=== PATIENT | female | born 1950 | race Caucasian/White ===

== ENCOUNTER 2019-08-05 12:09 | Emergency (ER) | payer OTHER ==
[~2019-08-05] VITALS: Ht 157.5 cm; Wt 81.4 kg
[2019-08-05] MEDS ORDERED: AZIT-12 PO (13:05)
[2019-08-05] MEDS ORDERED: ATOR40TA75 PO (13:05)
[2019-08-05] MEDS ORDERED: HYDR-3713 PO (13:05)
[2019-08-05] MEDS ORDERED: PRED20TA PO (13:05)
[2019-08-05] MEDS ORDERED: SULF1TAB93 PO (13:05)
[2019-08-05] MEDS ORDERED: LISI-1046 PO (13:05)
[2019-08-05] MEDS ORDERED: PULM0.25 NEB (13:05)
[2019-08-05] MEDS ORDERED: BUPR15TASR PO (13:05)
[2019-08-05] MEDS ORDERED: MIRA3350 PO (13:05)
[2019-08-05] MEDS ORDERED: GABA-843 PO (13:05)
[2019-08-05] MEDS ORDERED: PROP60CA PO (13:05)
[2019-08-05] MEDS ORDERED: METF500T13 PO (13:05)
[2019-08-05] MEDS ORDERED: PROAAER10 INH (13:05)
[2019-08-05] MEDS ORDERED: LASI20TA3 PO (13:05)
[2019-08-05] MEDS ORDERED: TIZA2TAB4 PO (13:05)
[2019-08-05] MEDS ORDERED: LOTRCRE TOP (13:05)
[2019-08-05] MEDS ORDERED: FAMO20TA PO (13:05)
[2019-08-05] MEDS ORDERED: CYMB60CA3 PO (13:05)
[2019-08-05] MEDS ORDERED: NORC1TAB7 PO (13:57)
[2019-08-05] MEDS ORDERED: MOBI4TAB PO (13:57)
[2019-08-05] MEDS ORDERED: KETOROLAC 60 MG/2 ML VIAL (J1885) IM ONE (14:00)
[2019-08-05 14:14] VITALS: BP 121/76
== END 2019-08-05 14:17 | disposition home or self-care (01) ==
LOC: M ED 12:09
DX: J84.9 Interstitial pulmonary disease, unspecified (principal); M25.551 Pain in right hip; M79.604 Pain in right leg; G89.29 Other chronic pain; Z87.891 Personal history of nicotine dependence; I10 Essential (primary) hypertension; E78.00 Pure hypercholesterolemia, unspecified; I25.2 Old myocardial infarction; G47.30 Sleep apnea, unspecified; Z99.81 Dependence on supplemental oxygen; M19.90 Unspecified osteoarthritis, unspecified site; E11.9 Type 2 diabetes mellitus without complications; M54.31 Sciatica, right side; Z79.899 Other long term (current) drug therapy; Z79.2 Long term (current) use of antibiotics; Z79.52 Long term (current) use of systemic steroids; Z79.51 Long term (current) use of inhaled steroids; Z79.84 Long term (current) use of oral hypoglycemic drugs
CPT/HCPCS: 96372; 99283; J1885

== ENCOUNTER → 2019-08-22 | Outpatient (REF) | payer OTHER ==
[~2019-08-22] MED LIST: ATOR40TA75 PO; AZIT-12 PO; BUPR15TASR PO; CYMB60CA3 PO; FAMO20TA PO; GABA-843 PO; HYDR-3713 PO; LASI20TA3 PO; LISI-1046 PO; LOTRCRE TOP; METF500T13 PO; MIRA3350 PO; MOBI4TAB PO; NORC1TAB7 PO; PRED20TA PO; PROAAER10 INH; PROP60CA PO; PULM0.25 NEB; SULF1TAB93 PO; TIZA2TAB4 PO
[2019-08-22 14:24] LABS: ALBUMIN 3.5 GM/DL (3.2-5.2); BILIRUBIN,TOTAL 0.4 MG/DL (0.2-1.0); CALCIUM LEVEL 9.3 MG/DL (8.8-10.2); CREATININE FOR GFR 1.15 MG/DL (0.55-1.30); GLOMERULAR FILTRATION RATE 49.8 (>45); POTASSIUM SERUM 4.2 MEQ/L (3.5-5.1); TOTAL PROTEIN 6.7 GM/DL (6.4-8.2)
[2019-08-22 14:25] LABS: MALB URINE SIEMENS 11.5 MG/L; MAU/CREAT RATIO 10.5 MCG/MG (0.0-30.0)
== END ==
LOC: M SFHCPLAZ 11:11
PROVIDERS: ATTEND Nurse Practitioner Family
DX: I10 Essential (primary) hypertension (principal); Z79.899 Other long term (current) drug therapy

== ENCOUNTER 2019-09-16 13:55 | Emergency (ER) | payer OTHER ==
[~2019-09-16] VITALS: Ht 157.5 cm; Wt 80.9 kg
[2019-09-16 16:35] LABS: HEMOGLOBIN 13.5 g/dl (12.0-15.5); MEAN CORPUSCULAR HEMOGLOBIN 29.3 pg (27.0-33.0); MEAN CORPUSCULAR HGB CONC 32.1 g/dl (32.0-36.5); MEAN CORPUSCULAR VOLUME 91.1 fl (80.0-96.0); PLATELET COUNT, AUTOMATED 254 10^3/uL (150-450); RED BLOOD COUNT 4.61 10^6/uL (4.00-5.40)
[2019-09-16 16:55] LABS: ALT/SGPT 22 U/L (12-78); BILIRUBIN,DIRECT < 0.1 MG/DL (0.0-0.2); BILIRUBIN,TOTAL 0.4 MG/DL (0.2-1.0); BLOOD UREA NITROGEN 14 MG/DL (7-18); CALCIUM LEVEL 8.9 MG/DL (8.8-10.2); CARBON DIOXIDE LEVEL 26 MEQ/L (21-32); CHLORIDE LEVEL 109 MEQ/L (98-107); CK-MB VALUE MASS < 1.0 NG/ML (<3.6); CPK CREATINE PHOSPHOKINASE 33 U/L (26-192); CREATININE FOR GFR 1.17 MG/DL (0.55-1.30); GLOMERULAR FILTRATION RATE 48.8 (>45); GLUCOSE, FASTING 119 MG/DL (70-100); LIPASE 116 U/L (73-393); MB/CK RELATIVE INDEX 3.03 (< OR =4); POTASSIUM SERUM 3.8 MEQ/L (3.5-5.1); SODIUM LEVEL 143 MEQ/L (136-145); TOTAL PROTEIN 6.1 GM/DL (6.4-8.2); TROPONIN I < 0.02 NG/ML (< 0.10)
--- NOTE | 2019-09-16 17:25 | REP ---
Portable chest x-ray: Sitting AP view. History: COPD. Findings: The lungs are symmetrically aerated and clear. Pleural angles are sharp. Heart is not enlarged. Monitoring electrodes are seen. Pulmonary vasculature is not increased. Impression: No acute disease. Electronically Signed by Uli Pro MD 09/16/2019 05:17 P
[2019-09-16] MEDS ORDERED: BACT800T5 PO (17:28)
[2019-09-16] MEDS ORDERED: AZIT-12 PO (17:28)
[2019-09-16] MEDS ORDERED: NORCO 5/325MG TABLET (BULK FOR ED) PO ONE (17:30)
[2019-09-16] MEDS ORDERED: BACTRIM 160MG/800MG DS TAB PO ONE (18:15)
[2019-09-16 18:18] VITALS: BP 112/74
--- NOTE | 2019-09-17 17:51 | ECGEPIP ---
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
== END 2019-09-16 18:21 | disposition home or self-care (01) ==
LOC: M ED 13:55
DX: J84.89 Other specified interstitial pulmonary diseases (principal); M54.5 Low back pain; R00.1 Bradycardia, unspecified; I11.9 Hypertensive heart disease without heart failure; E11.9 Type 2 diabetes mellitus without complications; E78.5 Hyperlipidemia, unspecified; G47.33 Obstructive sleep apnea (adult) (pediatric); J44.9 Chronic obstructive pulmonary disease, unspecified; M79.10 Myalgia, unspecified site; Z95.5 Presence of coronary angioplasty implant and graft; Z87.891 Personal history of nicotine dependence; Z79.899 Other long term (current) drug therapy; Z79.52 Long term (current) use of systemic steroids; Z79.51 Long term (current) use of inhaled steroids; Z79.84 Long term (current) use of oral hypoglycemic drugs

== ENCOUNTER → 2019-10-19 | Outpatient (CLI) | payer OTHER ==
[~2019-10-19] MED LIST changes: +BACT800T5 PO
--- NOTE | 2019-11-02 02:20 | ECWPNPC ---
PATIENT NAME: CASEY KU : 1950 GENDER: FEMALE VISIT DATE: 10/19/2019 DISCHARGE DATE: 10/19/19 1255 VISIT LOCKED DATE TIME: PHYSICIAN: MYLES GALLARDO MD RESOURCE: MYLES GALLARDO MD REASON FOR APPOINTMENT 1. BACK PAIN-CHECKING IN HISTORY OF PRESENT ILLNESS PAIN SCREENING: PATIENT HAS A COMPLAINT OF ACUTE OR CHRONIC PAIN :YES 69 YEAR OLD FEMALE PATIENT WITH A HISTORY OF CHRONIC LOW BACK AND LEG PAIN. THE PATIENT DESCRIBES THE PAIN ACHING, SHARP, AND CONTINUOUS WITH A PAIN SCORE OF 7-9/10 DEPENDING ON PHYSICAL ACTIVITY. THE PATIENT STATES HER PAIN BEGINS IN HER LOW BACK AND RADIATES DOWN MAINLY THE SIDE OF HER RIGHT LEG. THE PATIENT SAYS SHE HAS BEEN SUFFERING FROM THIS PAIN FOR THE LAST FEW YEARS. THE PATIENT SAYS SHE IS USING GABAPENTIN 300 MG UP TO 3 TIMES DAILY AND HYDROCODONE-ACETAMINOPHEN 5-325 MG NEEDED FOR HER PAIN, WHICH WAS PRESCRIBED BY HER PRIMARY CARE PHYSICIAN, DR. SUAREZ. THE PATIENT MENTIONS SHE HAS A HISTORY OF INTERSTITIAL LUNG DISEASE, AND SHE IS IN THE PROCESS OF OBTAINING A PRESCRIPTION FOR CONDITION FROM DR. SUAREZ. THE PATIENT MENTIONS SHE ALSO HAS A HISTORY OF CORONARY ARTERY DISEASE AND HAD A STENT PLACED, BUT IS NOT USING ANY BLOOD THINNERS. PATIENT DENIES UNEXPLAINABLE WEIGHT LOSS, FEVER, CHILLS, NEW CHANGES ON HER URINARY OR BOWEL CONTROL. FALL RISK SCREENING: SCREENING :NO FALLS REPORTED IN THE LAST YEAR CURRENT MEDICATIONS TAKING MELOXICAM 7.5 MG TABLET 1 TABLET ORAL DAILY TAKING ASPIRIN 81 81 MG TABLET DELAYED RELEASE 1 TABLET ORALLY ONCE A DAY TAKING METFORMIN HCL 500 MG TABLET 1 TABLET WITH A MEAL ORALLY TWICE A DAY TAKING GABAPENTIN 300 MG CAPSULE 3 CAPSULE S ORALLY THREE TIMES A DAY TAKING BACTRIM DS 800-160 MG TABLET 1 TABLET ORALLY ONCE DAILY TAKING AZITHROMYCIN 250 MG TABLET 1 TAB ORALLY ONCE A DAY TAKING TIZANIDINE HCL 4 MG TABLET 0.5-1 TABLET NEEDED ORALLY 3 TIMES A DAY NEEDED FOR MUSCLE SPASMS TAKING PROPRANOLOL HCL ER 60 MG CAPSULE EXTENDED RELEASE 24 HOUR 1 CAPSULE ORALLY ONCE A DAY TAKING ATORVASTATIN CALCIUM 40 MG TABLET 1 TABLET ORALLY DAILY TAKING FUROSEMIDE 20 MG TABLET 1 TABLET ORALLY NEEDED FOR EDEMA TAKING BUPROPION HCL ER (SR) 150 MG TABLET EXTENDED RELEASE 12 HOUR 1 TABLET ORALLY TWICE A DAY TAKING HYDROCODONE-ACETAMINOPHEN 5-325 MG TABLET TAKE 1 TABLET ORALLY THREE TIMES DAILY NEEDED MDD #3 TAKING PREDNISONE 10 MG TABLET 2 TABLETS ORALLY DAILY WITH FOOD MEDICATION LIST REVIEWED AND RECONCILED WITH THE PATIENT PAST MEDICAL HISTORY HTN, GOAL < 130/80 PER ACC/AHA HYPERLIPIDEMIA TYPE 2 DM, GOAL HBA1C < 6.5 INTERSTITIAL LUNG DISEASE - IS AWAITING APPT WITH DR RIVAS CHRONIC LOW BACK PAIN - PAIN MANAGEMENT CAD WITH PA 2013, STENT - CARDIOLOGY DEPRESSION HX OF MIGRAINES - NEUROLOGY [place] - ON CPAP ALLERGIES LATEX GLOVES: RASH/ITCHING SURGICAL HISTORY APPENDECTOMY 1967 C SECTION X2 1980. 1986 BILATERAL FOOT SURGERY 1988 PARTIAL HYSTERECTOMY 1988 RIGHT ROTATOR CUFF TEAR REPAIR 2014 HEART STENT 2014 LUNG BIOPSY 2018 LASIK SURGERY BILATERAL EYES 2017 FAMILY HISTORY FATHER: 2 SON(S) , 2 DAUGHTER(S) . FATHER- NATURAL CAUSE MOTHER- ALZHEIMERSSON- HANDICAPPEDBROTHER- [place]. SOCIAL HISTORY GENERAL: TOBACCO USE ARE YOU A:FORMER SMOKER HOW LONG HAS IT BEEN SINCE YOU LAST SMOKED?5-10 YEARS HIV / HEP-C SCREENING HIV TEST OFFERED TO PATIENT:YES DATE OFFERED:08/22/2019 TEST ACCEPTED:NO HEP-C TEST OFFERED TO PATIENT:YES DATE OFFERED:08/22/2019 REASON:PATIENT DECLINED TEST ACCEPTED:NO REASON:PATIENT DECLINED BROCHURE PROVIDED TO PATIENTYES OTHERS AT HOME: DAUGHTERS AMD GOD- CHILDREN. HOUSING: OWNS HOME. EDUCATION LEVEL OF EDUCATION:COLLEGE DIET: REGULAR. LANGUAGE LANGUAGES SPOKEN:ESTONIAN DOMESTIC VIOLENCE DO YOU FEEL SAFE IN YOUR ENVIRONMENT?YES RECREATIONAL DRUG USE DRUG USE?NO PATIENT DENIES ABUSE OR MISSUSED OF ANY MEDICATION DENIES PATIENT DENIES USE OF ANY ILLEGAL SUBSTANCE INCLUDING MARIJUANA OR COCAINE DENIES EXERCISE: NO REGULAR EXERCISE. LEARNING BARRIERS / SPECIAL NEEDS CHANGE FROM LAST VISIT?NO BARRIERS TO LEARNING?NO HEARING IMPAIRED?NO VISION IMPAIRED?YES COGNITIVELY IMPAIRED?NO :CORRECTIVE LENSES READINESS TO LEARN?YES LEARNING PREFERENCES?NO LEARNING CAPABILITIES PRESENT?YES EMOTIONAL BARRIERS?NO SPECIAL DEVICES?YES :CANE ENVELOPE ADJUSTER NEEDED?NO PAIN CLINIC PFS, CLERGY, PUBLIC HEALTH REFERRALS PFS REFERRAL NEEDED?NO CLERGY REFERRAL NEEDED?NO PUBLIC HEALTH REFERRAL NEEDED?NO WAS THE PROVIDER NOTIFIED OF ANY PERTINENT INFO?YES HAS THE PATIENT BEEN EDUCATED REGARDING HIS/HER PLAN OF CARE?YES HAS THE PATIENT BEEN EDUCATED REGARDING PAIN, THE RISK FOR PAIN, THE IMPORTANCE OF EFFECTIVE PAIN MANAGEMENT, AND THE PAIN ASSESSMENT PROCESS?YES LATEX QUESTIONNAIRE LATEX ALLERGY : HAVE YOU EVER DEVELOPED ANY TYPE OF REACTION AFTER HANDLING LATEX PRODUCTS SUCH RUBBER GLOVES, CONDOMS, DIAPHRAGMS, BALLOONS, SOCKS, OR UNDERWEAR?YES POWDER CAUSES RASH - PLEASE INDICATE :RUBBER GLOVES LATEX ALLERGY : HAVE YOU EVER DEVELOPED ANY TYPE OF REACTION DURING OR AFTER DENTAL APPOINTMENT, VAGINAL/RECTAL EXAMINATION, SURGICAL PROCEDURE, OR ANY OTHER EXPOSURE?NO LATEX RISK : HAVE YOU EVER HAD ANY DIFFICULTY BREATHING OR HIVES AFTER EATING OR HANDLING ANY FRUITS, OR VEGETABLES; SUCH KIWI, BANANAS, STONE FRUITS, OR CHESTNUTSNO LATEX RISK : DO YOU HAVE A PREVIOUS PERSONAL HISTORY OF MORE THAN NINE SURGERIES, SPINA BIFIDA, OR REPEATED CATHERIZATIONS? NO LATEX RISK : ARE YOU FREQUENTLY EXPOSED TO LATEX PRODUCTS IN YOUR OCCUPATION?NO DATE ASKED : 10/11/2019 CAFFEINE CAFFEINE USE?YES ICED TEA, COFFEE ADVANCE DIRECTIVE ADVANCE DIRECTIVE DISCUSSED WITH PATIENT:YES HCP- DAUGHTER- RUTH KU- PRESYBETERIAN [id number] LATTER DAY MARITAL STATUS: . ALCOHOL SCREENING DID YOU HAVE A DRINK CONTAINING ALCOHOL IN THE PAST YEAR?NO POINTS0 INTERPRETATIONNEGATIVE OCCUPATION: RETIRED. SEXUAL HX HAD SEX IN THE LAST 12 MONTHS (VAGINAL, ORAL, OR ANAL)?NO LMP:1988 PARTIAL HYSTERECTOMY HAVE YOU EVER HAD AN STD?NO REVIEWED WITH DAUGHTER (HCP) PAU 10/11/[address] [facility] PRE ATT TELEPHONE CALL COMPLETED 10/11/19 1351 NLJ. HOSPITALIZATION/MAJOR DIAGNOSTIC PROCEDURE PNEUMONIA, HYPOXIA 12/2018,12/2018, 01/2019 SURGERIS REVIEW OF SYSTEMS REVIEWED BY: PROVIDER: MYLES GALLARDO MD . CONSTITUTIONAL: ANY CHANGE IN YOUR MEDICAL CONDITION? NO . CHILLS NO . FEVER NO . INFECTION: DO YOU HAVE NEW INFECTIONS? NO . DO YOU HAVE HISTORY OF MRSA? NO . MUSCULOSKELETAL: ANY NEW PATTERNS OF PAIN OR NUMBNESS? NO . SYTEMIC LUPUS NO . GASTROENTEROLOGY: ANY NEW CHANGE IN BOWEL CONTROL? NO . BARRETTS ESOPHAGUS NO . CIRRHOSIS NO . HEPATITIS NO . LIVER FAILURE NO . ACID REFLUX NO . UNEXPLAINED WEIGHT LOSS NO . GENITOURINARY: ANY NEW CHANGE IN BLADDER CONTROL? NO . IS THERE A CHANCE YOU COULD BE ? NO . HEMATOLOGY/LYMPH: DO YOU TAKE ANY BLOOD THINNERS? (FOR EXAMPLE- COUMADIN, PLAVIX, AGGRENOX, PLATEL, PRADAXA, OR XARELTO) NO . WHEN WAS YOUR LAST DOSE? DATE: TIME: . LOW PLATELET COUNT NO . SICKLE CELL DISEASE NO . VON WILLIEBRANDS NO . FACTOR V LEIDEN NO . THALLASEMIA NO . ANEMIA NO . EASY BRUISING NO . NEUROLOGY: HAVE YOU FALLEN IN THE PAST 12 MONTHS? YES, FELL FALL 2019 NOT SURE WHY, MAYBE LOSS OF BALANCE AND PAIN PT DENIES INJURIES . ANY NEW EXTREMITY NUMBNESS OR WEAKNESS? NO . HEAD INJURY NO . DEMENTIA NO . CEREBRAL PALSY NO . MULTIPLE SCLEROSIS NO . DIZZINESS NO . HEADACHE NO . STROKES NO . VERTIGO NO . CARDIOLOGY: DO YOU HAVE A PACEMAKER OR DEFIBRILLATOR? NO . ANGINA NO . HEART ATTACK NO . HEART SURGERY NO . CONGESTIVE HEART FAILURE/FLUID OVERLOAD NO . CHEST PAIN NO . HIGH BLOOD PRESSURE ON MEDICATION(S) . IRREGULAR HEART BEAT NO . RESPIRATORY: HAVE YOU BEEN SICK IN THE PAST WEEK? NO . FEVER NO . FLU LIKE SYMPTOMS? NO . CPAP YES . BYPAP NO . ASTHMA NO . EMPHYSEMA NO . CHRONIC LUNG DISEASES YES, PT WEARS OXYGEN 24/7 . SHORTNESS OF BREATH ON EXERTION NO . COUGH NO . SNORING NO . INTEGUMENTARY: DO YOU HAVE ANY RASHES OR OPEN SORES? NO . ALLERGIC/IMMUNO: ARE YOU ALLERGIC TO IV DYE? NO . ANY NEW ALLERGIES? NO . PSYCHIATRIC: DO YOU HAVE THOUGHTS OF HURTING YOURSELF OR SOMEONE ELSE? NO . ARE YOU ABUSED, NEGLECTED, OR IN AN UNSAFE ENVIRONMENT? NO . ENDOCRINOLOGY: ARE YOU DIABETIC? YES . THYROID DISORDER NO . OTHER: DO YOU NEED ANY PRESCRIPTIONS? NO . IF YES, PLEASE LIST: ____ . ANY NEW PROBLEMS WITH YOUR MEDICATIONS? NO . WHEN DID YOU LAST EAT? ____ . WHEN DID YOU LAST DRINK? ____ . WHAT DID YOU LAST DRINK? ____ . NAME OF PERSON DRIVING YOU HOME? ____ . DO YOU HAVE ANY OTHER QUESTIONS OR CONCERNS NO . VITAL SIGNS WT 186 LBS, HT 62 IN, BMI 34.02 INDEX, BP 131/63 MM HG, HR 97 /MIN, RR 18 /MIN, TEMP 96.5 F, OXYGEN SAT % 94%, NA INITIALS AW 1135, REVIEWED BY: EM. EXAMINATION GENERAL EXAMINATION: PATIENT IS ALERT O X 3 AND COOPERATIVE. LUNGS CLEAR, TO AUSCULTATION. HEART: NO MURMURS OR GALLOPS; FACIAL CRANIAL NERVES ARE GROSSLY NORMAL. GOOD SYMMETRY OF FACIAL MUSCLE MOVEMENT. NORMAL VISUAL TAM. SEVERE TENDERNESS OVER THE PARASPINAL MUSCLE GROUP OF THE LOW BACK. PRESENCE OF BANDS OF TISSUE AND TRIGGER POINTS WITH RESTRICTION OF MOVEMENT OF THE LOW BACK AREA. ANTALGIC WALK. PATIENT IS LIMPING FROM HER RIGHT LEG. RIGHT LEG IS WEAKER AT EXTENSION AND FLEXION. STRAIGHT LEG RAISE OF THE RIGHT LEG IS POSITIVE AT 45 DEGREES FOR RADICULOPATHY. 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 KU'S PAIN MANAGEMENT CASE. I DISCUSSED WITH THE PATIENT ABOUT THE OPTION OF TRYING A LUMBAR EPIDURAL STEROID INJECTION TO HELP WITH HER LOW BACK AND LEG PAIN, BUT THE PATIENT IS INTERESTED IN TRYING THE LEAST INVASIVE PROCEDURE FIRST. THEREFORE, DUE TO THE TRIGGER POINTS, BANDS OF TISSUE, AND RESTRICTION OF MOVEMENT, I WOULD LIKE TO MOVE FORWARD WITH A LOW BACK TRIGGER POINT INJECTION AT THIS TIME. WE DISCUSSED THE BENEFITS, RISKS, AND ALTERNATIVES OF THE INJECTION AND THE PATIENT WOULD LIKE TO PROCEED. I AM LOOKING FOR LONG LASTING PAIN RELIEF FROM THIS INJECTION FOR THE PATIENT. I WILL REQUEST A DOCTOR TO DOCTOR AGREEMENT FROM THE PATIENT'S PRIMARY CARE PHYSICIAN, DR. SUAREZ, TO POSSIBLY PRESCRIBE NARCOTICS FOR THE PATIENT IN THE FUTURE. THE PATIENT'S MRI AND OFFICE NOTES WILL BE REQUESTED FROM DR. URIEL MARTINEZ'S OFFICE, SO I CAN REVIEW EVERYTHING. THE PATIENT WILL FOLLOW UP WITH THE NURSE PRACTITIONER IN 3 WEEKS. INSTRUCTIONS WERE GIVEN, QUESTIONS WERE ANSWERED, PATIENT REPORTS UNDERSTANDING AND AGREES WITH THE PLAN. I, KARLA CORTES, DOCUMENTED THE ABOVE INFORMATION ACTING A SCRIBE FOR DR. GALLARDO. I HAVE REVIEWED THE ABOVE DOCUMENT, WRITTEN BY KARLA REICH AND I VERIFY THAT IT IS ACCURATE. DEAR PIERRE PEREZ NP: THANK YOU FOR YOUR KIND REFERRAL OF CASEY KU. IF YOU WANT TO DISCUSS HER CASE WITH ME PLEASE CALL ME AT THE PAIN CENTER AT [phone]. SINCERELY, MYLES GALLARDO MD PAIN MEDICINE . OTHERS NOTES: TRIGGER POINT INJECTION, TRIGGER POINT INJECTIONS MATERIAL WAS PUBLISHED TO PORTAL,TRIGGER POINT INJECTION MATERIAL WAS PRINTED. PROCEDURE CODES FA211 ESTABILISHED PATIENT [facility] FACILITY CHARGE M1266 CURRENT MEDS W/DOSAGES DOCUMENTED G0899 PAIN ASSESS POS TOOL F/U PLAN DOC DISPOSITION & COMMUNICATION FOLLOW UP 3 WEEKS (REASON: TPI, F/UP W/ FOREST MANAGEMENT PROFESSOR) ELECTRONICALLY SIGNED BY MYLES GALLARDO MD, MD ON 11/01/2019 AT 02:02 PM EST DISCLAIMER : THIS IS A VISIT SUMMARY EXTRACTED FROM THE ECLINICALXiimo CHART. IT IS NOT A COPY OF THE [employer]KS PROGRESS NOTE. MTDD
== END ==
LOC: M PAIN 11:00
PROVIDERS: ATTEND Anesthesiology
DX: M79.18 Myalgia, other site (principal); M51.16 Intervertebral disc disorders with radiculopathy, lumbar region; M54.40 Lumbago with sciatica, unspecified side; G89.29 Other chronic pain

== ENCOUNTER → 2019-11-01 | Outpatient (CLI) | payer OTHER ==
--- NOTE | 2019-11-01 14:16 | REP ---
Clinical: Lower extremity edema . Technique: Aguilar scale and color Doppler evaluation using linear high frequency transducer. Findings: Ultrasound examination of the right and left lower extremity deep venous structures from the common femoral vein to the popliteal vein demonstrates normal compressibility flow and wave patterns in response to respiration and augmentation. There is no evidence for deep venous thrombosis. Impression: No evidence for deep venous thrombosis. Electronically Signed by Jaren Rizzo MD 11/01/2019 02:07 P
== END ==
LOC: M RAD 12:34
PROVIDERS: ATTEND Internal Medicine Pulmonary Disease
DX: Z86.711 Personal history of pulmonary embolism (principal); R30.0 Dysuria

== ENCOUNTER → 2019-11-13 | Outpatient (CLI) | payer OTHER ==
--- NOTE | 2019-11-21 03:16 | ECWPNPC ---
PATIENT NAME: CASEY KU : 1950 GENDER: FEMALE VISIT DATE: 11/13/2019 DISCHARGE DATE: 11/13/19 1020 VISIT LOCKED DATE TIME: PHYSICIAN: JUSTICE SCHOFIELD RESOURCE: JUSTICE SCHOFIELD REASON FOR APPOINTMENT 1. [address] Andrew HISTORY OF PRESENT ILLNESS HISTORY OF PRESENT ILLNESS: PAIN THE PATIENT DESCRIBES THE PAIN... FALL RISK SCREENING: SCREENING :NO FALLS REPORTED IN THE LAST YEAR PAIN SCREENING: PATIENT HAS A COMPLAINT OF ACUTE OR CHRONIC PAIN :YES 69 YEAR OLD FEMALE PATIENT WITH A HISTORY OF CHRONIC LOW BACK AND LEG PAIN. THE PATIENT DESCRIBES THE PAIN ACHING, SHARP, AND CONTINUOUS WITH A PAIN SCORE OF 7-9/10 DEPENDING ON PHYSICAL ACTIVITY. THE PATIENT STATES HER PAIN BEGINS IN HER LOW BACK AND RADIATES DOWN MAINLY THE SIDE OF HER RIGHT LEG. WAS FOLLOWING WITH PAIN CLINIC IN [place] PRIOR TO MOVING HERE A FEW MONTHS AGO.HAD A LESI IN THERE AND THIS WAS VERY HELPFUL.DENIES ANY PROBLEMS WITH INJECTION THERAPY.REVIEWED MRI L/S SPINE AND DISCUSSED TREATMENT OPTIONS. CURRENT MEDICATIONS TAKING MELOXICAM 7.5 MG TABLET 1 TABLET ORAL DAILY TAKING ASPIRIN 81 81 MG TABLET DELAYED RELEASE 1 TABLET ORALLY ONCE A DAY TAKING METFORMIN HCL 500 MG TABLET 1 TABLET WITH A MEAL ORALLY TWICE A DAY TAKING BACTRIM DS 800-160 MG TABLET 1 TABLET ORALLY ONCE DAILY TAKING AZITHROMYCIN 250 MG TABLET 1 TAB ORALLY ONCE A DAY TAKING TIZANIDINE HCL 4 MG TABLET 0.5-1 TABLET NEEDED ORALLY 3 TIMES A DAY NEEDED FOR MUSCLE SPASMS TAKING PROPRANOLOL HCL ER 60 MG CAPSULE EXTENDED RELEASE 24 HOUR 1 CAPSULE ORALLY ONCE A DAY TAKING ATORVASTATIN CALCIUM 40 MG TABLET 1 TABLET ORALLY DAILY TAKING FUROSEMIDE 20 MG TABLET 1 TABLET ORALLY DAILY TAKING BUPROPION HCL ER (SR) 150 MG TABLET EXTENDED RELEASE 12 HOUR 1 TABLET ORALLY TWICE A DAY TAKING PREDNISONE 10 MG TABLET 1 CAP ORALLY DAILY WITH FOOD TAKING ALBUTEROL SULFATE HFA 108 (90 BASE) MCG/ACT AEROSOL SOLUTION 2 PUFFS NEEDED INHALATION EVERY 6 HRS PRN TAKING HYDROCODONE-ACETAMINOPHEN 5-325 MG TABLET TAKE 1 TABLET ORALLY THREE TIMES DAILY NEEDED MDD #3 TAKING GABAPENTIN 300 MG CAPSULE 3 CAPSULE S ORALLY THREE TIMES A DAY MEDICATION LIST REVIEWED AND RECONCILED WITH THE PATIENT PAST MEDICAL HISTORY HTN, GOAL < 130/80 PER ACC/AHA HYPERLIPIDEMIA TYPE 2 DM, GOAL HBA1C < 6.5 INTERSTITIAL LUNG DISEASE - IS AWAITING APPT WITH DR RIVAS CHRONIC LOW BACK PAIN - PAIN MANAGEMENT CAD WITH [place] 2014, STENT - CARDIOLOGY DEPRESSION HX OF MIGRAINES - NEUROLOGY [place] - ON CPAP ALLERGIES LATEX GLOVES: RASH/ITCHING SURGICAL HISTORY APPENDECTOMY 1967 C SECTION X2 1980. 1986 BILATERAL FOOT SURGERY 1988 PARTIAL HYSTERECTOMY 1988 RIGHT ROTATOR CUFF TEAR REPAIR 2014 HEART STENT 2014 LUNG BIOPSY 2018 LASIK SURGERY BILATERAL EYES 2017 FAMILY HISTORY FATHER: 2 SON(S) , 2 DAUGHTER(S) . FATHER- NATURAL CAUSE MOTHER- ALZHEIMERSSON- HANDICAPPEDBROTHER- [place]. SOCIAL HISTORY GENERAL: TOBACCO USE ARE YOU A:FORMER SMOKER HOW LONG HAS IT BEEN SINCE YOU LAST SMOKED?5-10 YEARS HIV / HEP-C SCREENING HIV TEST OFFERED TO PATIENT:YES DATE OFFERED:08/22/2019 TEST ACCEPTED:NO HEP-C TEST OFFERED TO PATIENT:YES DATE OFFERED:08/22/2019 REASON:PATIENT DECLINED TEST ACCEPTED:NO REASON:PATIENT DECLINED BROCHURE PROVIDED TO PATIENTYES OTHERS AT HOME: DAUGHTERS AMD GOD- CHILDREN. HOUSING: OWNS HOME. EDUCATION LEVEL OF EDUCATION:COLLEGE DIET: REGULAR. LANGUAGE LANGUAGES SPOKEN:MONGOLIAN DOMESTIC VIOLENCE DO YOU FEEL SAFE IN YOUR ENVIRONMENT?YES RECREATIONAL DRUG USE DRUG USE?NO PATIENT DENIES ABUSE OR MISSUSED OF ANY MEDICATION DENIES PATIENT DENIES USE OF ANY ILLEGAL SUBSTANCE INCLUDING MARIJUANA OR COCAINE DENIES EXERCISE: NO REGULAR EXERCISE. LEARNING BARRIERS / SPECIAL NEEDS CHANGE FROM LAST VISIT?NO BARRIERS TO LEARNING?NO HEARING IMPAIRED?NO VISION IMPAIRED?YES COGNITIVELY IMPAIRED?NO :CORRECTIVE LENSES READINESS TO LEARN?YES LEARNING PREFERENCES?NO LEARNING CAPABILITIES PRESENT?YES EMOTIONAL BARRIERS?NO SPECIAL DEVICES?YES :CANE REGIONAL RETAIL SALES MANAGER NEEDED?NO PAIN CLINIC PFS, CLERGY, PUBLIC HEALTH REFERRALS PFS REFERRAL NEEDED?NO CLERGY REFERRAL NEEDED?NO PUBLIC HEALTH REFERRAL NEEDED?NO WAS THE PROVIDER NOTIFIED OF ANY PERTINENT INFO?YES HAS THE PATIENT BEEN EDUCATED REGARDING HIS/HER PLAN OF CARE?YES HAS THE PATIENT BEEN EDUCATED REGARDING PAIN, THE RISK FOR PAIN, THE IMPORTANCE OF EFFECTIVE PAIN MANAGEMENT, AND THE PAIN ASSESSMENT PROCESS?YES LATEX QUESTIONNAIRE LATEX ALLERGY : HAVE YOU EVER DEVELOPED ANY TYPE OF REACTION AFTER HANDLING LATEX PRODUCTS SUCH RUBBER GLOVES, CONDOMS, DIAPHRAGMS, BALLOONS, SOCKS, OR UNDERWEAR?YES POWDER CAUSES RASH LATEX ALLERGY : HAVE YOU EVER DEVELOPED ANY TYPE OF REACTION DURING OR AFTER DENTAL APPOINTMENT, VAGINAL/RECTAL EXAMINATION, SURGICAL PROCEDURE, OR ANY OTHER EXPOSURE?NO - PLEASE INDICATE :RUBBER GLOVES DATE ASKED : 10/11/2019 LATEX RISK : HAVE YOU EVER HAD ANY DIFFICULTY BREATHING OR HIVES AFTER EATING OR HANDLING ANY FRUITS, OR VEGETABLES; SUCH KIWI, BANANAS, STONE FRUITS, OR CHESTNUTSNO LATEX RISK : DO YOU HAVE A PREVIOUS PERSONAL HISTORY OF MORE THAN NINE SURGERIES, SPINA BIFIDA, OR REPEATED CATHERIZATIONS? NO LATEX RISK : ARE YOU FREQUENTLY EXPOSED TO LATEX PRODUCTS IN YOUR OCCUPATION?NO CAFFEINE CAFFEINE USE?YES ICED TEA, COFFEE ADVANCE DIRECTIVE ADVANCE DIRECTIVE DISCUSSED WITH PATIENT:YES HCP- DAUGHTER- RUTH KU- MANDAEISM [id number] ZOROASTRIAN MARITAL STATUS: . ALCOHOL SCREENING DID YOU HAVE A DRINK CONTAINING ALCOHOL IN THE PAST YEAR?NO POINTS0 INTERPRETATIONNEGATIVE OCCUPATION: RETIRED. SEXUAL HX HAD SEX IN THE LAST 12 MONTHS (VAGINAL, ORAL, OR ANAL)?NO LMP:1988 PARTIAL HYSTERECTOMY HAVE YOU EVER HAD AN STD?NO REVIEWED WITH DAUGHTER (HCP) PAU 10/11/19 1350 NLJNPC PRE APT TELEPHONE CALL COMPLETED 10/11/19 1351 NLJREVIEWED WITH PT AND DAUGHTER 11/13/19 66625 NLJ. HOSPITALIZATION/MAJOR DIAGNOSTIC PROCEDURE PNEUMONIA, HYPOXIA 12/2018,12/2018, 01/2019 SURGERIS REVIEW OF SYSTEMS REVIEWED BY: PROVIDER: JUSTICE MENDOZA . CONSTITUTIONAL: ANY CHANGE IN YOUR MEDICAL CONDITION? NO . CHILLS NO . FEVER NO . INFECTION: DO YOU HAVE NEW INFECTIONS? NO . DO YOU HAVE HISTORY OF MRSA? NO . MUSCULOSKELETAL: ANY NEW PATTERNS OF PAIN OR NUMBNESS? NO . GASTROENTEROLOGY: ANY NEW CHANGE IN BOWEL CONTROL? NO . GENITOURINARY: ANY NEW CHANGE IN BLADDER CONTROL? NO . IS THERE A CHANCE YOU COULD BE ? NO . HEMATOLOGY/LYMPH: DO YOU TAKE ANY BLOOD THINNERS? (FOR EXAMPLE- COUMADIN, PLAVIX, AGGRENOX, PLATEL, PRADAXA, OR XARELTO) NO . WHEN WAS YOUR LAST DOSE? DATE: TIME: . NEUROLOGY: HAVE YOU FALLEN IN THE PAST 12 MONTHS? YES- PREVIOUSLY DOCUMENTED STATES NO INJURIES AND NO FALLS SINCE . ANY NEW EXTREMITY NUMBNESS OR WEAKNESS? NO . CARDIOLOGY: DO YOU HAVE A PACEMAKER OR DEFIBRILLATOR? NO . RESPIRATORY: HAVE YOU BEEN SICK IN THE PAST WEEK? NO . FEVER NO . FLU LIKE SYMPTOMS? NO . COUGH NO . INTEGUMENTARY: DO YOU HAVE ANY RASHES OR OPEN SORES? NO . ALLERGIC/IMMUNO: ARE YOU ALLERGIC TO IV DYE? NO . ANY NEW ALLERGIES? NO . PSYCHIATRIC: DO YOU HAVE THOUGHTS OF HURTING YOURSELF OR SOMEONE ELSE? NO . ARE YOU ABUSED, NEGLECTED, OR IN AN UNSAFE ENVIRONMENT? NO . ENDOCRINOLOGY: ARE YOU DIABETIC? YES . OTHER: DO YOU NEED ANY PRESCRIPTIONS? NO . IF YES, PLEASE LIST: ____ . ANY NEW PROBLEMS WITH YOUR MEDICATIONS? NO . WHEN DID YOU LAST EAT? ____ . WHEN DID YOU LAST DRINK? ____ . WHAT DID YOU LAST DRINK? ____ . NAME OF PERSON DRIVING YOU HOME? ____ . DO YOU HAVE ANY OTHER QUESTIONS OR CONCERNS YES- WIATING FOR RECORDS FROM DR MARTINEZ, DOC RECOMMEDED TPI AFTER TELEVISION REPAIRER FOLLOW UP. DAUGHTER WOULD LIKE TO SEE IF PT CAN BE WEANED OFF OF HYDROCODONE AND TRY SOMETHING DIFFERENT, DAUGHTER STATES PT HAS BEEN ON ED FOR A VERY LONG TIME AND MED IS NO LONGER EFFECTIVE. . VITAL SIGNS WT 182.8 LBS, HT 62 IN, BMI 33.43 INDEX, BP 124/59 MM HG, HR 84 /MIN, RR 20 /MIN, TEMP 98.1 F, OXYGEN SAT % 94% 4 L, SAFE IN ENV? (Y/N) YES, REVIEWED BY: MATTEO. EXAMINATION GENERAL EXAMINATION: GENERAL AWAKE,ALERT ,PLEASANT . PSYCH AFFECT NORMAL . LUNGS: LUNG TAM ARE CLEAR TO AUSCULTATION BILATERALLY. GOOD MOVEMENT OF AIR . HEART: S1, S2 IN A REGULAR RATE AND RHYTHM. NO SIGNIFICANT MURMURS, RUBS OR GALLOPS NOTED . MUSCULOSKELETAL: WEAK OVER RIGHT LEG. FOR BILAT. SIJ PALPATION: + FOR PAIN OVER L/S SPINE. + FOR PAIN OVER L/S PARASPINALSR>L WEAK OVER RIGHT LEG . NEUROLOGIC EXAM:PARESTHESIA TO LIGHT TOUCH OVER RIGHT LEG. DIAGNOSTIC TESTS REVIEWEDMRI OF THE LS-SPINE. 03/2018 . ASSESSMENTS DISPLACEMENT OF LUMBAR DISC WITH RADICULOPATHY - M51.16 (PRIMARY) TREATMENT DISPLACEMENT OF LUMBAR DISC WITH RADICULOPATHY NOTES: L4-5 LESI. PREVENTIVE MEDICINE PAIN CLINIC TEACHING: PROCEDURE TEACHING LUMBAR EPIDURAL STEROID INJECTION PROCEDURE INFORMATION PRINTED AND REVIEWED WITH PT AND DAUGHTER, BOTH ALSO VERBALIZED UNDERSTANDING OF PRE PROCEDURE INSTRUCTIONS REVIEWED. 11/13/2019 1010 NLJ PT IS ON AZYTHROMYCIN PERMANENTLY FOR PREVENTIVE LUNG TREATMENT TO PREVENT INFECTION IN LUNGS, PT AND DAUGHTER WERE BOTH EDUCATED THAT DR. GALLARDO DOES NOT USUALLY DO PROCEDURES WHILE PATIENT'S ARE ON ANTIBIOTICS. PT'S DAUGHTER INFORMED THIS BENCH WORKER HOLLOW HANDLE THAT THE PT HAD LESIS DONE IN [place] PREVIOUSLY WHILE ON 2 ANTIBIOTICS WELL PREDNISONE. THIS BENCH WORKER HOLLOW HANDLE EDUCATED PT WELL HER DAUGHTER THAT THE STEROIDS USED WITH THE LESI CAN LESSEN THE EFFECTS OF THE ANTIBIOTICS. BOTH VERBALIZED UNDERSTANDING OF ABOVE. 11/13/2019 1025 NLJ . PROCEDURE CODES FA211 ESTABILISHED PATIENT [facility] CHARGE DISPOSITION & COMMUNICATION FOLLOW UP POST (REASON: L4-5 LESI) ELECTRONICALLY SIGNED BY REJI BERGER ON 11/20/2019 AT 01:37 PM EST DISCLAIMER : THIS IS A VISIT SUMMARY EXTRACTED FROM THE [employer] CHART. IT IS NOT A COPY OF THE [employer] PROGRESS NOTE. MADHAVI
== END ==
LOC: M PAIN 09:00
PROVIDERS: ATTEND Nurse Practitioner Family
DX: M51.16 Intervertebral disc disorders with radiculopathy, lumbar region (principal); G89.29 Other chronic pain; I10 Essential (primary) hypertension; E78.5 Hyperlipidemia, unspecified; E11.9 Type 2 diabetes mellitus without complications; Z86.59 Personal history of other mental and behavioral disorders; G47.33 Obstructive sleep apnea (adult) (pediatric); Z87.891 Personal history of nicotine dependence; Z91.040 Latex allergy status; Z79.82 Long term (current) use of aspirin; Z79.84 Long term (current) use of oral hypoglycemic drugs; Z79.899 Other long term (current) drug therapy

== ENCOUNTER → 2019-11-22 | Outpatient (CLI) | payer OTHER ==
[2019-11-22 18:54] LABS: BLOOD UREA NITROGEN 17 MG/DL (7-18); CARBON DIOXIDE LEVEL 29 MEQ/L (21-32); CHLORIDE LEVEL 106 MEQ/L (98-107); CREATININE FOR GFR 1.17 MG/DL (0.55-1.30); GLOMERULAR FILTRATION RATE 48.8 (>45); GLUCOSE, FASTING 114 MG/DL (70-100); POTASSIUM SERUM 4.1 MEQ/L (3.5-5.1); RHEUMATOID FACTOR QUANT < 10.0 IU/ML (<15.0); SODIUM LEVEL 142 MEQ/L (136-145)
[2019-11-28 10:29] LABS: ASPERGILLUS FUMIGATUS AB Negative (Negative); AUREOBASIDIUM PULLULANS Negative (Negative); CYCLIC CITRULLINATED PEPTIDE 10 units (0-19); MICROPOLYSPORA FAENI AB Negative (Negative); PIGEON SERUM AB Negative (Negative); THERMOACTINOMYCES SACCHARI Negative (Negative); THERMOACTINOMYCES VULGARIS Negative (Negative)
== END ==
LOC: M LAB 17:08
PROVIDERS: ATTEND Internal Medicine Pulmonary Disease
DX: Z87.891 Personal history of nicotine dependence (principal)

== ENCOUNTER → 2019-12-03 | Outpatient (REF) | payer OTHER | LOC: M SFHCPLAZ 09:34 | PROVIDERS: ATTEND Obstetrics & Gynecology | DX: J00 Acute nasopharyngitis [common cold] (principal) ==

== ENCOUNTER → 2020-01-01 | Outpatient (CLI) | payer OTHER ==
[~2020-01-01] MED LIST changes: +ISOVUE-M 300 61% 15ML VIAL (Q9967) As Ordered ONE; +LIDOCAINE 1% SDV INJ 30 ML VIAL As Ordered ONE; +methylPREDNISolone SUSP 40 MG/ML (DEPO-medrol) VIAL (J1030) As Ordered ONE
--- NOTE | 2020-01-01 13:32 | REP ---
C-ARM VIEW LOWER LUMBAR SPINE: CLINICAL HISTORY: Pain. C-arm view of the lower lumbar spine performed during injection by Dr. Marie. A needle is seen at the L4 level. 13 seconds fluoroscopy time utilized. Electronically Signed by Brijesh Aguilar MD 01/01/2020 07:56 P
--- NOTE | 2020-01-04 01:57 | ECWPNPC ---
PATIENT NAME: CASEY KU : 1950 GENDER: FEMALE VISIT DATE: 01/01/2020 DISCHARGE DATE: 01/01/20 1309 VISIT LOCKED DATE TIME: PHYSICIAN: MYLES GALLARDO MD RESOURCE: MYLES GALLRADO MD REASON FOR APPOINTMENT 1. L4-5 LESI HISTORY OF PRESENT ILLNESS HISTORY OF PRESENT ILLNESS: PAIN THE PATIENT DESCRIBES THE PAIN... FALL RISK SCREENING: SCREENING :NO FALLS REPORTED IN THE LAST YEAR CURRENT MEDICATIONS TAKING MELOXICAM 7.5 MG TABLET 1 TABLET ORAL DAILY, NOTES: 12/31 1999 TAKING ASPIRIN 81 81 MG TABLET DELAYED RELEASE 1 TABLET ORALLY ONCE A DAY, NOTES: 12/31 1999 TAKING METFORMIN HCL 500 MG TABLET 1 TABLET WITH A MEAL ORALLY TWICE A DAY, NOTES: 12/31 1999 TAKING AZITHROMYCIN 250 MG TABLET 1 TAB ORALLY ONCE A DAY, NOTES: 12/31/1999 TAKING TIZANIDINE HCL 4 MG TABLET 0.5-1 TABLET NEEDED ORALLY 3 TIMES A DAY NEEDED FOR MUSCLE SPASMS, NOTES: > 1 WEEK TAKING PROPRANOLOL HCL ER 60 MG CAPSULE EXTENDED RELEASE 24 HOUR 1 CAPSULE ORALLY ONCE A DAY, NOTES: 12/31 1999 TAKING ATORVASTATIN CALCIUM 40 MG TABLET 1 TABLET ORALLY DAILY, NOTES: 12/31 1999 TAKING FUROSEMIDE 20 MG TABLET 1 TABLET ORALLY DAILY, NOTES: 12/31 799 TAKING BUPROPION HCL ER (SR) 150 MG TABLET EXTENDED RELEASE 12 HOUR 1 TABLET ORALLY TWICE A DAY, NOTES: 12/31 1999 TAKING ALBUTEROL SULFATE HFA 108 (90 BASE) MCG/ACT AEROSOL SOLUTION 2 PUFFS NEEDED INHALATION EVERY 6 HRS PRN, NOTES: 12/31 799 TAKING GABAPENTIN 300 MG CAPSULE 3 CAPSULE S ORALLY THREE TIMES A DAY, NOTES: 12/31 799 TAKING HYDROCODONE-ACETAMINOPHEN 5-325 MG TABLET TAKE 1 TABLET ORALLY THREE TIMES DAILY NEEDED MDD #3, NOTES: 12/28 NOT-TAKING BACTRIM DS 800-160 MG TABLET 1 TABLET ORALLY ONCE DAILY NOT-TAKING PREDNISONE 10 MG TABLET 1 CAP ORALLY DAILY WITH FOOD MEDICATION LIST REVIEWED AND RECONCILED WITH THE PATIENT PAST MEDICAL HISTORY HTN, GOAL < 130/80 PER ACC/AHA HYPERLIPIDEMIA TYPE 2 DM, GOAL HBA1C < 6.5 INTERSTITIAL LUNG DISEASE - IS AWAITING APPT WITH DR RIVAS ON O2 CHRONIC LOW BACK PAIN - PAIN MANAGEMENT CAD WITH [place] 2013, STENT - CARDIOLOGY DEPRESSION HX OF MIGRAINES - NEUROLOGY [place] - ON CPAP ALLERGIES LATEX GLOVES: RASH/ITCHING SURGICAL HISTORY APPENDECTOMY 1967 C SECTION X2 1980. 1986 BILATERAL FOOT SURGERY 1988 PARTIAL HYSTERECTOMY 1987 RIGHT ROTATOR CUFF TEAR REPAIR 2014 HEART STENT 2014 LUNG BIOPSY 2018 LASIK SURGERY BILATERAL EYES 2017 FAMILY HISTORY FATHER: 2 SON(S) , 2 DAUGHTER(S) . FATHER- NATURAL CAUSE, CONGESTIVE HEART DISEASEMOTHER- ALZHEIMERSSON- HANDICAPPEDBROTHER- [place]. SOCIAL HISTORY GENERAL: TOBACCO USE ARE YOU A:FORMER SMOKER HOW LONG HAS IT BEEN SINCE YOU LAST SMOKED?5-10 YEARS HIV / HEP-C SCREENING HIV TEST OFFERED TO PATIENT:YES DATE OFFERED:08/22/2019 TEST ACCEPTED:NO HEP-C TEST OFFERED TO PATIENT:YES DATE OFFERED:08/22/2019 REASON:PATIENT DECLINED TEST ACCEPTED:NO REASON:PATIENT DECLINED BROCHURE PROVIDED TO PATIENTYES OTHERS AT HOME: DAUGHTERS AMD GOD- CHILDREN. HOUSING: OWNS HOME. EDUCATION LEVEL OF EDUCATION:COLLEGE DIET: REGULAR. LANGUAGE LANGUAGES SPOKEN:HEBREW DOMESTIC VIOLENCE DO YOU FEEL SAFE IN YOUR ENVIRONMENT?YES RECREATIONAL DRUG USE DRUG USE?NO PATIENT DENIES ABUSE OR MISSUSED OF ANY MEDICATION DENIES PATIENT DENIES USE OF ANY ILLEGAL SUBSTANCE INCLUDING MARIJUANA OR COCAINE DENIES EXERCISE: NO REGULAR EXERCISE. LEARNING BARRIERS / SPECIAL NEEDS CHANGE FROM LAST VISIT?NO BARRIERS TO LEARNING?NO HEARING IMPAIRED?NO VISION IMPAIRED?YES :CORRECTIVE LENSES COGNITIVELY IMPAIRED?NO READINESS TO LEARN?YES LEARNING PREFERENCES?NO LEARNING CAPABILITIES PRESENT?YES EMOTIONAL BARRIERS?NO SPECIAL DEVICES?YES :CANE CLINICAL REVIEW NURSE NEEDED?NO PAIN CLINIC PFS, CLERGY, PUBLIC HEALTH REFERRALS PFS REFERRAL NEEDED?NO CLERGY REFERRAL NEEDED?NO PUBLIC HEALTH REFERRAL NEEDED?NO WAS THE PROVIDER NOTIFIED OF ANY PERTINENT INFO?YES HAS THE PATIENT BEEN EDUCATED REGARDING HIS/HER PLAN OF CARE?YES HAS THE PATIENT BEEN EDUCATED REGARDING PAIN, THE RISK FOR PAIN, THE IMPORTANCE OF EFFECTIVE PAIN MANAGEMENT, AND THE PAIN ASSESSMENT PROCESS?YES LATEX QUESTIONNAIRE LATEX ALLERGY : HAVE YOU EVER DEVELOPED ANY TYPE OF REACTION AFTER HANDLING LATEX PRODUCTS SUCH RUBBER GLOVES, CONDOMS, DIAPHRAGMS, BALLOONS, SOCKS, OR UNDERWEAR?YES POWDER CAUSES RASH LATEX ALLERGY : HAVE YOU EVER DEVELOPED ANY TYPE OF REACTION DURING OR AFTER DENTAL APPOINTMENT, VAGINAL/RECTAL EXAMINATION, SURGICAL PROCEDURE, OR ANY OTHER EXPOSURE?NO - PLEASE INDICATE :RUBBER GLOVES DATE ASKED : 10/11/2019 LATEX RISK : HAVE YOU EVER HAD ANY DIFFICULTY BREATHING OR HIVES AFTER EATING OR HANDLING ANY FRUITS, OR VEGETABLES; SUCH KIWI, BANANAS, STONE FRUITS, OR CHESTNUTSNO LATEX RISK : DO YOU HAVE A PREVIOUS PERSONAL HISTORY OF MORE THAN NINE SURGERIES, SPINA BIFIDA, OR REPEATED CATHERIZATIONS? NO LATEX RISK : ARE YOU FREQUENTLY EXPOSED TO LATEX PRODUCTS IN YOUR OCCUPATION?NO CAFFEINE CAFFEINE USE?YES ICED TEA, COFFEE ADVANCE DIRECTIVE ADVANCE DIRECTIVE DISCUSSED WITH PATIENT:YES HCP- DAUGHTER- RUTH KU- FAITH [id number] [facility] MARITAL STATUS: . ALCOHOL SCREENING DID YOU HAVE A DRINK CONTAINING ALCOHOL IN THE PAST YEAR?NO POINTS0 INTERPRETATIONNEGATIVE OCCUPATION: RETIRED. SEXUAL HX HAD SEX IN THE LAST 12 MONTHS (VAGINAL, ORAL, OR ANAL)?NO LMP:1988 PARTIAL HYSTERECTOMY HAVE YOU EVER HAD AN STD?NO REVIEWED WITH DAUGHTER (HCP) PAU 10/11/19 1350 NLJNPC PRE APT TELEPHONE CALL COMPLETED 10/11/19 1351 NLJREVIEWED WITH PT AND DAUGHTER 11/13/19 05197 NLJPRE PROCEDURE PAT PHONE CALL 12/20/2019 LAS. HOSPITALIZATION/MAJOR DIAGNOSTIC PROCEDURE PNEUMONIA, HYPOXIA 12/2018,12/2018, 01/2019 SURGERIS REVIEW OF SYSTEMS REVIEWED BY: PROVIDER: . CONSTITUTIONAL: ANY CHANGE IN YOUR MEDICAL CONDITION? NO . CHILLS NO . FEVER NO . INFECTION: DO YOU HAVE NEW INFECTIONS? NO . DO YOU HAVE HISTORY OF MRSA? NO . MUSCULOSKELETAL: ANY NEW PATTERNS OF PAIN OR NUMBNESS? NO . GASTROENTEROLOGY: ANY NEW CHANGE IN BOWEL CONTROL? NO . GENITOURINARY: ANY NEW CHANGE IN BLADDER CONTROL? NO . IS THERE A CHANCE YOU COULD BE ? NO . HEMATOLOGY/LYMPH: DO YOU TAKE ANY BLOOD THINNERS? (FOR EXAMPLE- COUMADIN, PLAVIX, AGGRENOX, PLATEL, PRADAXA, OR XARELTO) NO . WHEN WAS YOUR LAST DOSE? DATE: TIME: . NEUROLOGY: HAVE YOU FALLEN IN THE PAST 12 MONTHS? YES . ANY NEW EXTREMITY NUMBNESS OR WEAKNESS? NO . CARDIOLOGY: DO YOU HAVE A PACEMAKER OR DEFIBRILLATOR? NO . RESPIRATORY: HAVE YOU BEEN SICK IN THE PAST WEEK? NO . FEVER NO . FLU LIKE SYMPTOMS? NO . COUGH NO . INTEGUMENTARY: DO YOU HAVE ANY RASHES OR OPEN SORES? NO . ALLERGIC/IMMUNO: ARE YOU ALLERGIC TO IV DYE? NO . ANY NEW ALLERGIES? NO . PSYCHIATRIC: DO YOU HAVE THOUGHTS OF HURTING YOURSELF OR SOMEONE ELSE? NO . ARE YOU ABUSED, NEGLECTED, OR IN AN UNSAFE ENVIRONMENT? NO . ENDOCRINOLOGY: ARE YOU DIABETIC? YES 113 12/31 7AM . OTHER: DO YOU NEED ANY PRESCRIPTIONS? NO . IF YES, PLEASE LIST: ____ . ANY NEW PROBLEMS WITH YOUR MEDICATIONS? NO . WHEN DID YOU LAST EAT? 12/30 9PM . WHEN DID YOU LAST DRINK? 12/31 830AM . WHAT DID YOU LAST DRINK? WATER . NAME OF PERSON DRIVING YOU HOME? RUTH . DO YOU HAVE ANY OTHER QUESTIONS OR CONCERNS NO . VITAL SIGNS WT 179.8 LBS, HT 62 IN, BMI 32.88 INDEX, BP 112.59 MM HG, HR 74 /MIN, RR 18 /MIN, TEMP 97.4 F, OXYGEN SAT % 92%, NA INITIALS AW 1029, REVIEWED BY: LS. ASSESSMENTS INTERVERTEBRAL DISC DISORDERS WITH RADICULOPATHY, LUMBAR REGION - M51.16 (PRIMARY) PROCEDURES PRE PROCEDURE DIAGNOSIS LUMBAR DISC DISORDER WITH RADICULOPATHY POST PROCEDURE DIAGNOSIS LUMBAR DISC DISORDER WITH RADICULOPATHY PROCEDURE LUMBAR EPIDURAL STEROID INJECTION UNDER FLUOROSCOPIC GUIDANCE SURGEON DR. MYLES GALLARDO BILINGUAL INSIDE SALES REPRESENTATIVE NONE ANESTHESIA LOCAL PRE PROCEDURE NOTE THE PATIENT HAS A HISTORY OF CHRONIC LOW BACK PAIN. I EVALUATED THE PATIENT AND REVIEWED THE CHART. I WENT OVER THE RISKS, ALTERNATIVES, AND BENEFITS ASSOCIATED WITH THIS PROCEDURE. THE PATIENT WOULD LIKE TO PROCEED AND GIVES CONSENT TO PERFORM THE PROCEDURE. THE PATIENT DENIES UNEXPLAINABLE WEIGHT LOSS, FEVER, CHILLS, OR NEW CHANGES IN URINARY OR BOWEL CONTROL. DESCRIPTION OF PROCEDURE THE PATIENT WAS BROUGHT TO THE PROCEDURE ROOM AND PLACED IN THE PRONE POSITION. THE LUMBOSACRAL AREA WAS CLEANED WITH BETADINE SOLUTION AND DRAPED ASEPTICALLY. THE PROCEDURE WAS DONE UNDER STERILE CONDITIONS. I CHECKED LATERALITY AND THE LEVEL WHERE THE PROCEDURE WAS GOING TO BE PERFORMED WITH THE PATIENT AND THE SUPPORTING STAFF AT THE MOMENT OF THE TIME OUT IN THE PROCEDURE ROOM. UNDER FLUOROSCOPIC GUIDANCE, THE TARGET POINT WAS SELECTED AT THE INTERLAMINAR LEVEL OF L4-L5. LIDOCAINE WAS USED TO NUMB THE SKIN AND THE SUBCUTANEOUS TISSUE BELOW IT. EPIDURAL TUOHY NEEDLE, 17-GAUGE, WAS ADVANCED UNDER FLUOROSCOPIC GUIDANCE AND FOLLOWING PATIENT FEEDBACK UNTIL THE EPIDURAL SPACE WAS REACHED, 7 CM DEEP INTO THE SKIN BY THE LOSS OF RESISTANCE TECHNIQUE. ISOVUE M DYE 30%, 0.25 ML, WAS INJECTED SHOWING ADEQUATE SPREAD OF THE DYE. THEN, A SOLUTION OF 3 ML OF NORMAL SALINE WITH DEPO-MEDROL 60 MG WAS INJECTED SLOWLY FOLLOWING PATIENT FEEDBACK. THERE WAS NO EVIDENCE OF BLOOD, PARESTHESIA OR CEREBROSPINAL FLUID DURING THE PROCEDURE. THE PATIENT WAS SENT TO THE RECOVERY ROOM. THE PATIENT WAS MOVING THE EXTREMITIES AND DOING WELL. THERE WAS NO COMPLICATION DURING THE PROCEDURE. FLUOROSCOPY TIME WAS 13 SECONDS. POST PROCEDURE NOTE THE PATIENT WILL BE SEEN IN A FOLLOW UP IN THE NEXT FEW WEEKS. I AM LOOKING FOR LONG LASTING PAIN RELIEF FOR THE PATIENT WITH THIS INJECTION. INSTRUCTIONS WERE GIVEN, QUESTIONS WERE ANSWERED, AND THE PATIENT EXPRESSED UNDERSTANDING AND AGREES WITH THE PLAN. I, KARLA CORTES, DOCUMENTED THE ABOVE INFORMATION ACTING A SCRIBE FOR DR. GALLARDO. I HAVE REVIEWED THE ABOVE DOCUMENT, WRITTEN BY KARLA CORTES SCRIBE AND I VERIFY THAT IT IS ACCURATE. DIAGNOSTIC IMAGING [facility] FLUORO GUIDE SPINE INJECTION (PAIN)[id number] PROCEDURE CODES 61939 LUMBAR/SACRAL W/ IMAGING 6045F RADXPS IN END [id number] PXD DISPOSITION & COMMUNICATION FOLLOW UP 2 WEEKS ELECTRONICALLY SIGNED BY MYLES GALLARDO MD, MD ON 01/03/2020 AT 03:17 PM EST DISCLAIMER : THIS IS A VISIT SUMMARY EXTRACTED FROM THE [employer] CHART. IT IS NOT A COPY OF THE [employer] PROGRESS NOTE. MTDD
== END ==
LOC: M PAIN 09:45
PROVIDERS: ATTEND Anesthesiology
DX: M51.16 Intervertebral disc disorders with radiculopathy, lumbar region (principal)
CPT/HCPCS: 62323; J1030; Q9967

== ENCOUNTER → 2020-02-19 | Outpatient (CLI) | payer OTHER ==
[~2020-02-19] MED LIST changes: -ISOVUE-M 300 61% 15ML VIAL (Q9967) As Ordered ONE; -LIDOCAINE 1% SDV INJ 30 ML VIAL As Ordered ONE; -methylPREDNISolone SUSP 40 MG/ML (DEPO-medrol) VIAL (J1030) As Ordered ONE
--- NOTE | 2020-02-26 00:14 | ECWPNPC ---
PATIENT NAME: CASEY KU : 1950 GENDER: FEMALE VISIT DATE: 02/19/2020 DISCHARGE DATE: 02/19/20 1320 VISIT LOCKED DATE TIME: PHYSICIAN: MYLES GALLARDO MD RESOURCE: MYLES GALLARDO MD REASON FOR APPOINTMENT 1. [facility] [phone]- ATTEMPTED TO CALL PATIENT, MESSAGE LEFT TO RETURN CALL. 02/19/2020 1114 NLJ HISTORY OF PRESENT ILLNESS HISTORY OF PRESENT ILLNESS: PAIN THE PATIENT DESCRIBES THE PAIN... PERMISSION FROM PATIENT WAS RECEIVED TO DO TELEPHONE OFFICE VISIT. 69 YEAR OLD FEMALE PATIENT WITH A HISTORY OF CHRONIC LOW BACK AND LEG PAIN. THE PATIENT DESCRIBES THE PAIN ACHING AND CONSTANT WITH A PAIN SCORE OF 2-8/10 DEPENDING ON PHYSICAL ACTIVITY. THE PATIENT RECEIVED AN EPIDURAL ON 01/01/2020, WHICH SHE SAYS HELPED WITH HER BACK, LEG, AND KNEE PAIN FOR SEVERAL WEEKS, HOWEVER HER PAIN IS NOW RETURNING. THE PATIENT SAYS HER RIGHT LEG PAIN IS THE WORST PAIN AREA AND IS HAVING TROUBLE WALKING AFTER SITTING FOR PERIODS OF TIME. THE PATIENT SAYS SHE IS USING HYDROCODONE-ACETAMINOPHEN 5-325 MG, WHICH WAS PRESCRIBED BY HER PRIMARY CARE PROVIDER, TO AID IN PAIN RELIEF. THE PATIENT SAYS THE MEDICATION IS HELPING TO MANAGE HER PAIN AND SHE UNDERSTANDS PROCEDURES ARE CURRENTLY ON HOLD DUE TO THE CURRENT COVID SITUATION. THE PATIENT DENIES UNEXPLAINED WEIGHT LOSS, FEVER, CHILLS, NEW CHANGES IN HER URINARY OR BOWEL CONTROL. FALL RISK SCREENING: SCREENING :NO FALLS REPORTED IN THE LAST YEAR CURRENT MEDICATIONS TAKING MELOXICAM 7.5 MG TABLET 1 TABLET ORAL DAILY TAKING ASPIRIN 81 81 MG TABLET DELAYED RELEASE 1 TABLET ORALLY ONCE A DAY TAKING AZITHROMYCIN 250 MG TABLET 1 TAB ORALLY ONCE A DAY TAKING TIZANIDINE HCL 4 MG TABLET 0.5-1 TABLET NEEDED ORALLY 3 TIMES A DAY NEEDED FOR MUSCLE SPASMS TAKING PROPRANOLOL HCL ER 60 MG CAPSULE EXTENDED RELEASE 24 HOUR 1 CAPSULE ORALLY ONCE A DAY TAKING ATORVASTATIN CALCIUM 40 MG TABLET 1 TABLET ORALLY DAILY TAKING FUROSEMIDE 20 MG TABLET 1 TABLET ORALLY DAILY TAKING BUPROPION HCL ER (SR) 150 MG TABLET EXTENDED RELEASE 12 HOUR 1 TABLET ORALLY TWICE A DAY TAKING ALBUTEROL SULFATE HFA 108 (90 BASE) MCG/ACT AEROSOL SOLUTION 2 PUFFS NEEDED INHALATION EVERY 6 HRS PRN TAKING GABAPENTIN 300 MG CAPSULE 3 CAPSULE S ORALLY THREE TIMES A DAY TAKING NYSTATIN [id number] UNIT/GM POWDER 1 APPLICATION EXTERNALLY TO GROIN TWICE A DAY TAKING LISINOPRIL 10 MG TABLET 1 TABLET ORALLY ONCE A DAY TAKING CETIRIZINE HCL 10 MG TABLET 1 TABLET ORALLY ONCE A DAY TAKING METFORMIN HCL 500 MG TABLET 1 TABLET WITH A MEAL ORALLY TWICE A DAY TAKING HYDROCODONE-ACETAMINOPHEN 5-325 MG TABLET TAKE 1 TABLET ORALLY THREE TIMES DAILY NEEDED MDD #3 NOT-TAKING BACTRIM DS 800-160 MG TABLET 1 TABLET ORALLY ONCE DAILY NOT-TAKING PREDNISONE 10 MG TABLET 1 CAP ORALLY DAILY WITH FOOD MEDICATION LIST REVIEWED AND RECONCILED WITH THE PATIENT PAST MEDICAL HISTORY HTN, GOAL < 130/80 PER ACC/AHA HYPERLIPIDEMIA TYPE 2 DM, GOAL HBA1C < 6.5 INTERSTITIAL LUNG DISEASE - IS AWAITING APPT WITH DR RIVAS ON O2 CHRONIC LOW BACK PAIN - PAIN MANAGEMENT CAD WITH [place] 2013, STENT - CARDIOLOGY DEPRESSION HX OF MIGRAINES - NEUROLOGY [place] - ON CPAP ALLERGIES LATEX GLOVES: RASH/ITCHING SURGICAL HISTORY APPENDECTOMY 1966 C SECTION X2 1980. 1986 BILATERAL FOOT SURGERY 1988 PARTIAL HYSTERECTOMY 1987 RIGHT ROTATOR CUFF TEAR REPAIR 2014 HEART STENT 2014 LUNG BIOPSY 2018 LASIK SURGERY BILATERAL EYES 2017 FAMILY HISTORY FATHER: 2 SON(S) , 2 DAUGHTER(S) . FATHER- NATURAL CAUSE, CONGESTIVE HEART DISEASEMOTHER- ALZHEIMERSSON- HANDICAPPEDBROTHER- [place]. SOCIAL HISTORY GENERAL: TOBACCO USE ARE YOU A:FORMER SMOKER HOW LONG HAS IT BEEN SINCE YOU LAST SMOKED?5-10 YEARS LATEX QUESTIONNAIRE LATEX ALLERGY : HAVE YOU EVER DEVELOPED ANY TYPE OF REACTION AFTER HANDLING LATEX PRODUCTS SUCH RUBBER GLOVES, CONDOMS, DIAPHRAGMS, BALLOONS, SOCKS, OR UNDERWEAR?YES POWDER CAUSES RASH LATEX ALLERGY : HAVE YOU EVER DEVELOPED ANY TYPE OF REACTION DURING OR AFTER DENTAL APPOINTMENT, VAGINAL/RECTAL EXAMINATION, SURGICAL PROCEDURE, OR ANY OTHER EXPOSURE?NO - PLEASE INDICATE :RUBBER GLOVES DATE ASKED : 10/11/2019 LATEX RISK : HAVE YOU EVER HAD ANY DIFFICULTY BREATHING OR HIVES AFTER EATING OR HANDLING ANY FRUITS, OR VEGETABLES; SUCH KIWI, BANANAS, STONE FRUITS, OR CHESTNUTSNO LATEX RISK : DO YOU HAVE A PREVIOUS PERSONAL HISTORY OF MORE THAN NINE SURGERIES, SPINA BIFIDA, OR REPEATED CATHERIZATIONS? NO LATEX RISK : ARE YOU FREQUENTLY EXPOSED TO LATEX PRODUCTS IN YOUR OCCUPATION?NO ALCOHOL SCREENING DID YOU HAVE A DRINK CONTAINING ALCOHOL IN THE PAST YEAR?NO POINTS0 INTERPRETATIONNEGATIVE RECREATIONAL DRUG USE DRUG USE?NO PATIENT DENIES ABUSE OR MISSUSED OF ANY MEDICATION DENIES PATIENT DENIES USE OF ANY ILLEGAL SUBSTANCE INCLUDING MARIJUANA OR COCAINE DENIES CAFFEINE CAFFEINE USE?YES ICED TEA, COFFEE SEXUAL HX HAD SEX IN THE LAST 12 MONTHS (VAGINAL, ORAL, OR ANAL)?NO LMP:1988 PARTIAL HYSTERECTOMY HAVE YOU EVER HAD AN STD?NO HIV / HEP-C SCREENING HIV TEST OFFERED TO PATIENT:YES DATE OFFERED:08/22/2019 TEST ACCEPTED:NO HEP-C TEST OFFERED TO PATIENT:YES DATE OFFERED:08/22/2019 REASON:PATIENT DECLINED TEST ACCEPTED:NO REASON:PATIENT DECLINED BROCHURE PROVIDED TO PATIENTYES MANDAEN [id number] ORIENTAL ORTHODOX LANGUAGE LANGUAGES SPOKEN:TUNISIAN EDUCATION LEVEL OF EDUCATION:COLLEGE LEARNING BARRIERS / SPECIAL NEEDS CHANGE FROM LAST VISIT?NO BARRIERS TO LEARNING?NO HEARING IMPAIRED?NO VISION IMPAIRED?YES COGNITIVELY IMPAIRED?NO :CORRECTIVE LENSES READINESS TO LEARN?YES LEARNING PREFERENCES?NO LEARNING CAPABILITIES PRESENT?YES EMOTIONAL BARRIERS?NO SPECIAL DEVICES?YES :CANE 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 DIET: REGULAR. EXERCISE: NO REGULAR EXERCISE. MARITAL STATUS: . OTHERS AT HOME: DAUGHTERS [employer] GOD- CHILDREN. NEW PATIENT PAIN DIARY TODAY'S VISITNOTES PATIENT DESCRIBES PAIN :ACHING, HAVE IT ALL THE TIME FROM 0-10, WHAT LEVEL IS YOUR PAIN TODAY?5 PAIN CLINIC PFS, CLERGY, PUBLIC HEALTH REFERRALS PFS REFERRAL NEEDED?NO CLERGY REFERRAL NEEDED?NO PUBLIC HEALTH REFERRAL NEEDED?NO WAS THE PROVIDER NOTIFIED OF ANY PERTINENT INFO?YES HAS THE PATIENT BEEN EDUCATED REGARDING HIS/HER PLAN OF CARE?YES HAS THE PATIENT BEEN EDUCATED REGARDING PAIN, THE RISK FOR PAIN, THE IMPORTANCE OF EFFECTIVE PAIN MANAGEMENT, AND THE PAIN ASSESSMENT PROCESS?YES HOUSING: OWNS HOME. ADVANCE DIRECTIVE ADVANCE DIRECTIVE DISCUSSED WITH PATIENT:YES HCP- DAUGHTER- RUTH KU- REVIEWED WITH DAUGHTER (HCP) PAU 10/11/19 1350 NLJNPC PRE APT TELEPHONE CALL COMPLETED 10/11/19 1351 NLJREVIEWED WITH PT AND DAUGHTER 11/13/19 29651 NLJPRE PROCEDURE PAT PHONE CALL 12/20/2019 LAS. HOSPITALIZATION/MAJOR DIAGNOSTIC PROCEDURE PNEUMONIA, HYPOXIA 12/2018,12/2018, 01/2019 SURGERIS REVIEW OF SYSTEMS REVIEWED BY: PROVIDER: MYLES GALLARDO MD . CONSTITUTIONAL: ANY CHANGE IN YOUR MEDICAL CONDITION? NO . CHILLS NO . FEVER NO . INFECTION: DO YOU HAVE NEW INFECTIONS? NO . DO YOU HAVE HISTORY OF MRSA? NO . MUSCULOSKELETAL: ANY NEW PATTERNS OF PAIN OR NUMBNESS? NO- STATES SHE HAS CONTINUED PAIN IN LOWER BACK BILATERALLY RADIATING INTO BILATERAL LOWWER EXTREMITIES . GASTROENTEROLOGY: ANY NEW CHANGE IN BOWEL CONTROL? NO . GENITOURINARY: ANY NEW CHANGE IN BLADDER CONTROL? NO . IS THERE A CHANCE YOU COULD BE ? NO . HEMATOLOGY/LYMPH: DO YOU TAKE ANY BLOOD THINNERS? (FOR EXAMPLE- COUMADIN, PLAVIX, AGGRENOX, PLATEL, PRADAXA, OR XARELTO) NO . WHEN WAS YOUR LAST DOSE? DATE: TIME: . NEUROLOGY: HAVE YOU FALLEN IN THE PAST 12 MONTHS? YES- STATES SHE FELL IN MAY OR 2018, STATES NO INJURIES . ANY NEW EXTREMITY NUMBNESS OR WEAKNESS? NO . CARDIOLOGY: DO YOU HAVE A PACEMAKER OR DEFIBRILLATOR? NO . RESPIRATORY: HAVE YOU BEEN SICK IN THE PAST WEEK? NO . FEVER NO . FLU LIKE SYMPTOMS? NO . COUGH NO . INTEGUMENTARY: DO YOU HAVE ANY RASHES OR OPEN SORES? NO . ALLERGIC/IMMUNO: ARE YOU ALLERGIC TO IV DYE? NO . ANY NEW ALLERGIES? NO . PSYCHIATRIC: DO YOU HAVE THOUGHTS OF HURTING YOURSELF OR SOMEONE ELSE? NO . ARE YOU ABUSED, NEGLECTED, OR IN AN UNSAFE ENVIRONMENT? NO . ENDOCRINOLOGY: ARE YOU DIABETIC? YES . OTHER: DO YOU NEED ANY PRESCRIPTIONS? NO . IF YES, PLEASE LIST: ____ . ANY NEW PROBLEMS WITH YOUR MEDICATIONS? NO . WHEN DID YOU LAST EAT? ____ . WHEN DID YOU LAST DRINK? ____ . WHAT DID YOU LAST DRINK? ____ . NAME OF PERSON DRIVING YOU HOME? ____ . DO YOU HAVE ANY OTHER QUESTIONS OR CONCERNS NO . EXAMINATION GENERAL EXAMINATION: TELEPHONE ENCOUNTER. PATIENT IS ALERT O X 3 AND COOPERATIVE. MRI OF THE LUMBAR SPINE DONE ON 04/08/2018 SHOWS FACET ARTHROPATHY CHANGES, SPINAL STENOSIS, BULGING DISC, AND DISC DEGENERATION AT MULTIPLE LEVELS. 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 KU'S PAIN MANAGEMENT CASE. THE PATIENT UNDERSTANDS THAT PROCEDURES ARE BEING POSTPONED DUE TO OUR CURRENT SITUATION WITH COVID-19 AND IS WILLING TO WAIT UNTIL WE CAN RESUME. WE DISCUSSED THE CONCERNS OF STEROIDS CAUSING IMMUNOSUPPRESSION SHORT-TERM. THE PATIENT WILL CONTINUE WITH HER HYDROCODONE TO HELP WITH HER PAIN. I MAY CONSIDER PERFORMING A TRIGGER POINT INJECTION WITHOUT STEROIDS FOR THE PATIENT IN THE FUTURE. THE PATIENT WILL FOLLOW UP WITH ME IN 3 WEEKS VIA TELEMEDICINE TO SEE HOW SHE IS DOING. THE TOTAL TIME FOR TODAY'S TELEMEDICINE VISIT WAS 11 MINUTES. INSTRUCTIONS WERE GIVEN, QUESTIONS WERE ANSWERED, PATIENT REPORTS UNDERSTANDING AND AGREES WITH THE PLAN. I, KARLA CORTES, DOCUMENTED THE ABOVE INFORMATION ACTING A SCRIBE FOR DR. GALLARDO. I HAVE REVIEWED THE ABOVE DOCUMENT, WRITTEN BY KARLA REICH AND I VERIFY THAT IT IS ACCURATE. . OTHERS NOTES: PATIENT CONSENTS TO TELEPHONE VISIT. VITAL SIGNS NOT OBTAINED DUE TO TELEPHONE VISIT. 02/19/2020 1133 NLJ. DISPOSITION & COMMUNICATION FOLLOW UP 3 WEEKS (REASON: F/UP W DR Andrew 3 WEEKS ) ELECTRONICALLY SIGNED BY MYLES GALLARDO MD, MD ON 02/25/2020 AT 04:12 PM EDT DISCLAIMER : THIS IS A VISIT SUMMARY EXTRACTED FROM THE [employer] CHART. IT IS NOT A COPY OF THE [employer] PROGRESS NOTE. MADHAVI
== END ==
LOC: M PAIN 11:15
PROVIDERS: ATTEND Anesthesiology
DX: M54.40 Lumbago with sciatica, unspecified side (principal); G89.29 Other chronic pain; M79.18 Myalgia, other site; M48.062 Spinal stenosis, lumbar region with neurogenic claudication; I10 Essential (primary) hypertension; E78.5 Hyperlipidemia, unspecified; Z86.59 Personal history of other mental and behavioral disorders; G43.909 Migraine, unspecified, not intractable, without status migrainosus; G47.33 Obstructive sleep apnea (adult) (pediatric); Z87.891 Personal history of nicotine dependence; Z91.040 Latex allergy status; Z79.82 Long term (current) use of aspirin; Z79.84 Long term (current) use of oral hypoglycemic drugs; Z79.899 Other long term (current) drug therapy

== ENCOUNTER → 2020-03-11 | Outpatient (CLI) | payer OTHER ==
[~2020-03-11] MED LIST changes: -LISI-1046 PO; +LISI2.5T2 PO; -TIZA2TAB4 PO; +TIZA2TAB6 PO
--- NOTE | 2020-03-15 03:35 | ECWPNPC ---
PATIENT NAME: CASEY KU : 1950 GENDER: FEMALE VISIT DATE: 03/11/2020 DISCHARGE DATE: 03/11/20 1540 VISIT LOCKED DATE TIME: PHYSICIAN: MYLES GALLARDO MD RESOURCE: MYLES GALLARDO MD REASON FOR APPOINTMENT 1. F/UP W DR Andrew 3 WEEKS HISTORY OF PRESENT ILLNESS HISTORY OF PRESENT ILLNESS: PAIN THE PATIENT DESCRIBES THE PAIN... PERMISSION FROM PATIENT WAS RECEIVED TO DO TELEPHONE OFFICE VISIT. 69 YEAR OLD FEMALE PATIENT WITH A HISTORY OF CHRONIC LOW BACK AND LEG PAIN. THE PATIENT DESCRIBES HER PAIN ACHING AND CONSTANT WITH A PAIN SCORE OF 3-8/10 DEPENDING ON PHYSICAL ACTIVITY. THE PATIENTS STATES HER PAIN BEGINS IN HER LOW BACK AND RADIATES DOWN MAINLY HER RIGHT LEG. THE PATIENT RECEIVED LUMBAR EPIDURAL STEROID INJECTIONS IN THE PAST THAT HAS PROVIDED HER WITH ADEQUATE PAIN RELIEF FOR OVER THREE WEEKS. THE PATIENT IS USING HYDROCODONE-ACETAMINOPHEN 5-325 MG UP TO 3 TABLETS DAILY TO AID IN PAIN RELIEF. THE PATIENT SAYS HER PAIN HAS RETURNED AND IS AFFECTING HER ABILITY TO PERFORM HER DAILY ACTIVITIES SUCH MOVING AROUND AND STANDING UP. THE PATIENT DENIES UNEXPLAINED WEIGHT LOSS, FEVER, CHILLS, NEW CHANGES IN HER URINARY OR BOWEL CONTROL. FALL RISK SCREENING: SCREENING :NO FALLS REPORTED IN THE LAST YEAR CURRENT MEDICATIONS TAKING MELOXICAM 7.5 MG TABLET 1 TABLET ORAL DAILY TAKING ASPIRIN 81 81 MG TABLET DELAYED RELEASE 1 TABLET ORALLY ONCE A DAY TAKING PROPRANOLOL HCL ER 60 MG CAPSULE EXTENDED RELEASE 24 HOUR 1 CAPSULE ORALLY ONCE A DAY TAKING ATORVASTATIN CALCIUM 40 MG TABLET 1 TABLET ORALLY DAILY TAKING FUROSEMIDE 20 MG TABLET 1 TABLET ORALLY DAILY TAKING BUPROPION HCL ER (SR) 150 MG TABLET EXTENDED RELEASE 12 HOUR 1 TABLET ORALLY TWICE A DAY TAKING ALBUTEROL SULFATE HFA 108 (90 BASE) MCG/ACT AEROSOL SOLUTION 2 PUFFS NEEDED INHALATION EVERY 6 HRS PRN TAKING NYSTATIN [id number] UNIT/GM POWDER 1 APPLICATION EXTERNALLY TO GROIN TWICE A DAY TAKING LISINOPRIL 10 MG TABLET 1 TABLET ORALLY ONCE A DAY TAKING CETIRIZINE HCL 10 MG TABLET 1 TABLET ORALLY ONCE A DAY TAKING METFORMIN HCL 500 MG TABLET 1 TABLET WITH A MEAL ORALLY TWICE A DAY TAKING HYDROCODONE-ACETAMINOPHEN 5-325 MG TABLET TAKE 1 TABLET ORALLY THREE TIMES DAILY NEEDED MDD #3 TAKING TIZANIDINE HCL 4 MG TABLET 0.5-1 TABLET NEEDED ORALLY 3 TIMES A DAY NEEDED FOR MUSCLE SPASMS TAKING GABAPENTIN 300 MG CAPSULE 3 CAPSULE S ORALLY THREE TIMES A DAY TAKING AZITHROMYCIN 250 MG TABLET 1 TAB ORALLY ONCE A DAY NOT-TAKING BACTRIM DS 800-160 MG TABLET 1 TABLET ORALLY ONCE DAILY NOT-TAKING PREDNISONE 10 MG TABLET 1 CAP ORALLY DAILY WITH FOOD MEDICATION LIST REVIEWED AND RECONCILED WITH THE PATIENT PAST MEDICAL HISTORY HTN, GOAL < 130/80 PER ACC/AHA HYPERLIPIDEMIA TYPE 2 DM, GOAL HBA1C < 6.5 INTERSTITIAL LUNG DISEASE - IS AWAITING APPT WITH DR RIVAS ON O2 CHRONIC LOW BACK PAIN - PAIN MANAGEMENT CAD WITH [facility] 2013, STENT - CARDIOLOGY DEPRESSION HX OF MIGRAINES - NEUROLOGY [place]RAH[place] - ON CPAP ALLERGIES LATEX GLOVES: RASH/ITCHING SURGICAL HISTORY APPENDECTOMY 1967 C SECTION X2 1980. 1985 BILATERAL FOOT SURGERY 1988 PARTIAL HYSTERECTOMY 1987 RIGHT ROTATOR CUFF TEAR REPAIR 2013 HEART STENT 2013 LUNG BIOPSY 2018 LASIK SURGERY BILATERAL EYES 2017 LUNG BIOPSIES [id number] FAMILY HISTORY FATHER: 2 SON(S) , 2 DAUGHTER(S) . FATHER- NATURAL CAUSE, CONGESTIVE HEART DISEASEMOTHER- ALZHEIMERSSON- HANDICAPPEDBROTHER- [place]. SOCIAL HISTORY GENERAL: TOBACCO USE ARE YOU A:FORMER SMOKER HOW LONG HAS IT BEEN SINCE YOU LAST SMOKED?5-10 YEARS LATEX QUESTIONNAIRE LATEX ALLERGY : HAVE YOU EVER DEVELOPED ANY TYPE OF REACTION AFTER HANDLING LATEX PRODUCTS SUCH RUBBER GLOVES, CONDOMS, DIAPHRAGMS, BALLOONS, SOCKS, OR UNDERWEAR?YES POWDER CAUSES RASH - PLEASE INDICATE :RUBBER GLOVES LATEX ALLERGY : HAVE YOU EVER DEVELOPED ANY TYPE OF REACTION DURING OR AFTER DENTAL APPOINTMENT, VAGINAL/RECTAL EXAMINATION, SURGICAL PROCEDURE, OR ANY OTHER EXPOSURE?NO LATEX RISK : HAVE YOU EVER HAD ANY DIFFICULTY BREATHING OR HIVES AFTER EATING OR HANDLING ANY FRUITS, OR VEGETABLES; SUCH KIWI, BANANAS, STONE FRUITS, OR CHESTNUTSNO LATEX RISK : DO YOU HAVE A PREVIOUS PERSONAL HISTORY OF MORE THAN NINE SURGERIES, SPINA BIFIDA, OR REPEATED CATHERIZATIONS? NO LATEX RISK : ARE YOU FREQUENTLY EXPOSED TO LATEX PRODUCTS IN YOUR OCCUPATION?NO DATE ASKED : 03/11/2020 ALCOHOL SCREENING DID YOU HAVE A DRINK CONTAINING ALCOHOL IN THE PAST YEAR?NO POINTS0 INTERPRETATIONNEGATIVE RECREATIONAL DRUG USE DRUG USE?NO PATIENT DENIES ABUSE OR MISSUSED OF ANY MEDICATION DENIES PATIENT DENIES USE OF ANY ILLEGAL SUBSTANCE INCLUDING MARIJUANA OR COCAINE DENIES CAFFEINE CAFFEINE USE?YES ICED TEA, COFFEE SEXUAL HX HAD SEX IN THE LAST 12 MONTHS (VAGINAL, ORAL, OR ANAL)?NO LMP:1988 PARTIAL HYSTERECTOMY HAVE YOU EVER HAD AN STD?NO HIV / HEP-C SCREENING HIV TEST OFFERED TO PATIENT:YES DATE OFFERED:08/22/2019 TEST ACCEPTED:NO HEP-C TEST OFFERED TO PATIENT:YES DATE OFFERED:08/22/2019 REASON:PATIENT DECLINED TEST ACCEPTED:NO REASON:PATIENT DECLINED BROCHURE PROVIDED TO PATIENTYES MUSLIM [id number] [employer] LANGUAGE LANGUAGES SPOKEN:DANISH EDUCATION LEVEL OF EDUCATION:COLLEGE LEARNING BARRIERS / SPECIAL NEEDS CHANGE FROM LAST VISIT?NO BARRIERS TO LEARNING?NO HEARING IMPAIRED?NO VISION IMPAIRED?YES COGNITIVELY IMPAIRED?NO :CORRECTIVE LENSES READINESS TO LEARN?YES LEARNING PREFERENCES?NO LEARNING CAPABILITIES PRESENT?YES EMOTIONAL BARRIERS?NO SPECIAL DEVICES?YES :CANE WIND TURBINE SERVICE TECHNICIAN NEEDED?NO DOMESTIC VIOLENCE DO YOU FEEL SAFE IN YOUR ENVIRONMENT?YES OCCUPATION: RETIRED. DIET: REGULAR. EXERCISE: NO REGULAR EXERCISE. MARITAL STATUS: . OTHERS AT HOME: DAUGHTERS AMD GOD- CHILDREN. NEW PATIENT PAIN DIARY TODAY'S VISITNOTES 03/11/2020 PATIENT DESCRIBES PAIN :ACHING, HAVE IT ALL THE TIME FROM 0-10, WHAT LEVEL IS YOUR PAIN TODAY?8 PAIN CLINIC PFS, CLERGY, PUBLIC HEALTH REFERRALS PFS REFERRAL NEEDED?NO CLERGY REFERRAL NEEDED?NO PUBLIC HEALTH REFERRAL NEEDED?NO WAS THE PROVIDER NOTIFIED OF ANY PERTINENT INFO?YES HAS THE PATIENT BEEN EDUCATED REGARDING HIS/HER PLAN OF CARE?YES HAS THE PATIENT BEEN EDUCATED REGARDING PAIN, THE RISK FOR PAIN, THE IMPORTANCE OF EFFECTIVE PAIN MANAGEMENT, AND THE PAIN ASSESSMENT PROCESS?YES HOUSING: OWNS HOME. ADVANCE DIRECTIVE ADVANCE DIRECTIVE DISCUSSED WITH PATIENT:YES HCP- DAUGHTER- RUTH KU- HOSPITALIZATION/MAJOR DIAGNOSTIC PROCEDURE PNEUMONIA, HYPOXIA 12/2018,12/2018, 01/2019 [facility] REVIEW OF SYSTEMS REVIEWED BY: PROVIDER: MYLES GALLARDO MD . CONSTITUTIONAL: ANY CHANGE IN YOUR MEDICAL CONDITION? NO . CHILLS NO . FEVER NO . INFECTION: DO YOU HAVE NEW INFECTIONS? NO . DO YOU HAVE HISTORY OF MRSA? NO . MUSCULOSKELETAL: ANY NEW PATTERNS OF PAIN OR NUMBNESS? YES. MORE INTENSE . GASTROENTEROLOGY: ANY NEW CHANGE IN BOWEL CONTROL? NO . GENITOURINARY: ANY NEW CHANGE IN BLADDER CONTROL? NO . IS THERE A CHANCE YOU COULD BE ? NO . HEMATOLOGY/LYMPH: DO YOU TAKE ANY BLOOD THINNERS? (FOR EXAMPLE- COUMADIN, PLAVIX, AGGRENOX, PLATEL, PRADAXA, OR XARELTO) NO . WHEN WAS YOUR LAST DOSE? DATE: TIME: . NEUROLOGY: HAVE YOU FALLEN IN THE PAST 12 MONTHS? YES, PT STATES THAT SHE FELL AT HOME IN MAY, NO INJURY, PT USING CANE FOR AMBULATION . ANY NEW EXTREMITY NUMBNESS OR WEAKNESS? NO . CARDIOLOGY: DO YOU HAVE A PACEMAKER OR DEFIBRILLATOR? NO . RESPIRATORY: HAVE YOU BEEN SICK IN THE PAST WEEK? NO . FEVER NO . FLU LIKE SYMPTOMS? NO . COUGH NO . INTEGUMENTARY: DO YOU HAVE ANY RASHES OR OPEN SORES? NO . ALLERGIC/IMMUNO: ARE YOU ALLERGIC TO IV DYE? NO . ANY NEW ALLERGIES? NO . PSYCHIATRIC: DO YOU HAVE THOUGHTS OF HURTING YOURSELF OR SOMEONE ELSE? NO . ARE YOU ABUSED, NEGLECTED, OR IN AN UNSAFE ENVIRONMENT? NO . ENDOCRINOLOGY: ARE YOU DIABETIC? TYPE II DIABETIC . OTHER: DO YOU NEED ANY PRESCRIPTIONS? NO . IF YES, PLEASE LIST: ____ . ANY NEW PROBLEMS WITH YOUR MEDICATIONS? NO . WHEN DID YOU LAST EAT? ____ . WHEN DID YOU LAST DRINK? ____ . WHAT DID YOU LAST DRINK? ____ . NAME OF PERSON DRIVING YOU HOME? ____ . DO YOU HAVE ANY OTHER QUESTIONS OR CONCERNS NO . EXAMINATION GENERAL EXAMINATION: TELEPHONE ENCOUNTER. PATIENT IS ALERT O X 3 AND COOPERATIVE. MRI OF THE LUMBAR SPINE DONE ON 04/08/2018 SHOWS BULGING DISCS AND SPINAL STENOSIS. ASSESSMENTS INTERVERTEBRAL DISC DISORDERS WITH RADICULOPATHY, LUMBAR REGION - M51.16 (PRIMARY) TREATMENT INTERVERTEBRAL DISC DISORDERS WITH RADICULOPATHY, LUMBAR REGION CLINICAL NOTES: WE DISCUSSED SEVERAL ISSUES WITH MS. KU'S PAIN MANAGEMENT CASE. I DISCUSSED WITH THE PATIENT THAT OUR CLINIC IS NOW PERFORMING PROCEDURES AGAIN, THEREFORE I WOULD LIKE THE PATIENT TO COME IN FOR A PHYSICAL VISIT TO EVALUATE WHERE HER PAIN IS LOCATED AND TO DISCUSS OPTIONS TO PROCEED WITH. I DISCUSSED WITH THE PATIENT ABOUT THE OPTION OF REPEATING ANOTHER LUMBAR EPIDURAL THAT HAS PROVIDED ADEQUATE PAIN RELIEF FOR HER IN THE PAST, BUT SHE WILL NEED TO BE SEEN FIRST BEFORE MOVING FORWARD. THE PATIENT WILL FOLLOW UP WITH NURSE PRACTITIONER JUSTICE SCHOFIELD TOMORROW TO DISCUSS OPTIONS. INSTRUCTIONS WERE GIVEN, QUESTIONS WERE ANSWERED, PATIENT REPORTS UNDERSTANDING AND AGREES WITH THE PLAN. I, KARLA CORTES, DOCUMENTED THE ABOVE INFORMATION ACTING A SCRIBE FOR DR. GALLARDO. I HAVE REVIEWED THE ABOVE DOCUMENT, WRITTEN BY KARLA REICH AND I VERIFY THAT IT IS ACCURATE. . DISPOSITION & COMMUNICATION FOLLOW UP 1 DAY (REASON: FOLLOW UP TOMM TO DISCUSS PROCEDURE OPTIONS WITH GWYN RENDON) ELECTRONICALLY SIGNED BY MYLES GALLARDO MD, MD ON 03/14/2020 AT 04:31 PM EDT DISCLAIMER : THIS IS A VISIT SUMMARY EXTRACTED FROM THE [employer] CHART. IT IS NOT A COPY OF THE [employer] PROGRESS NOTE. MADHAVI
== END ==
LOC: M PAIN 13:45
PROVIDERS: ATTEND Anesthesiology
DX: M51.16 Intervertebral disc disorders with radiculopathy, lumbar region (principal); G89.29 Other chronic pain; I10 Essential (primary) hypertension; E11.9 Type 2 diabetes mellitus without complications; Z86.59 Personal history of other mental and behavioral disorders; G43.909 Migraine, unspecified, not intractable, without status migrainosus; G47.33 Obstructive sleep apnea (adult) (pediatric); Z87.891 Personal history of nicotine dependence; Z91.040 Latex allergy status; Z79.82 Long term (current) use of aspirin; Z79.899 Other long term (current) drug therapy

== ENCOUNTER → 2020-03-12 | Outpatient (CLI) | payer OTHER ==
--- NOTE | 2020-03-13 06:16 | REP ---
Clinical: Interstitial pulmonary disease. Technique: Axial noncontrast images from the thoracic inlet to the upper abdomen with coronal and sagittal re-formations. Comparison: None. Findings: The lung hidalgo demonstrate mildly increased interstitial markings with minimal scattered scarring. No significant pulmonary fibrosis is appreciated. Few small scattered calcified nodules up to 3.5 mm are identified suggesting prior granulomatous disease. The tracheobronchial tree is patent. No consolidation, significant nodule or mass lesion appreciated. No effusion or pneumothorax identified. Mildly prominent mediastinal and suspected hilar lymph nodes measuring up to roughly 15.4 mm short axis diameter are noted. Further evaluation of the mediastinum demonstrates atherosclerotic disease involving the thoracic aorta and coronary arteries. No aortic aneurysm. No cardiomegaly or pericardial effusion. Musculoskeletal structures are intact without acute osseous abnormality. Impression: 1. Mildly prominent mediastinal and presumed hilar adenopathy of uncertain etiology. 2. Increased interstitial markings without specific pattern and without fibrosis. 3. No focal consolidation, nodule or mass lesion identified. No pleural effusion. Electronically Signed by Jaren Rizzo MD 03/13/2020 06:08 A
== END ==
LOC: M RAD 14:07
PROVIDERS: ATTEND Internal Medicine Pulmonary Disease
DX: J84.9 Interstitial pulmonary disease, unspecified (principal)

== ENCOUNTER → 2020-03-13 | Outpatient (CLI) | payer OTHER ==
--- NOTE | 2020-03-14 23:44 | ECWPNPC ---
PATIENT NAME: CASEY KU : 1950 GENDER: FEMALE VISIT DATE: 03/13/2020 DISCHARGE DATE: 03/13/20 1501 VISIT LOCKED DATE TIME: PHYSICIAN: JUSTICE SCHOFIELD RESOURCE: JUSTICE SCHOFIELD REASON FOR APPOINTMENT 1. PER DR Andrew/SANJEEV? HISTORY OF PRESENT ILLNESS HISTORY OF PRESENT ILLNESS: THIS IS A FOLLOW-UP OF CHRONIC LOW BACK PAIN WITH RIGHT LEG RADICULOPATHY. PAIN HAS INCREASED OVER THE PAST MONTH. HAS RESPONDED WELL TO LUMBAR EPIDURAL STEROID INJECTION IN THE PAST. REVIEWED MRI OF THE LS-SPINE. PAIN IS DESCRIBED A CONSTANT ACHING. PAIN IS AGGRAVATED WITH WALKING OR STANDING. DISCUSSED MEDICATION AND TREATMENT OPTIONS. PAIN THE PATIENT DESCRIBES THE PAIN... FALL RISK SCREENING: SCREENING :NO FALLS REPORTED IN THE LAST YEAR CURRENT MEDICATIONS TAKING MELOXICAM 7.5 MG TABLET 1 TABLET ORAL DAILY TAKING ASPIRIN 81 81 MG TABLET DELAYED RELEASE 1 TABLET ORALLY ONCE A DAY TAKING PROPRANOLOL HCL ER 60 MG CAPSULE EXTENDED RELEASE 24 HOUR 1 CAPSULE ORALLY ONCE A DAY TAKING ATORVASTATIN CALCIUM 40 MG TABLET 1 TABLET ORALLY DAILY TAKING FUROSEMIDE 20 MG TABLET 1 TABLET ORALLY DAILY TAKING BUPROPION HCL ER (SR) 150 MG TABLET EXTENDED RELEASE 12 HOUR 1 TABLET ORALLY TWICE A DAY TAKING ALBUTEROL SULFATE HFA 108 (90 BASE) MCG/ACT AEROSOL SOLUTION 2 PUFFS NEEDED INHALATION EVERY 6 HRS PRN TAKING NYSTATIN [id number] UNIT/GM POWDER 1 APPLICATION EXTERNALLY TO GROIN TWICE A DAY TAKING LISINOPRIL 10 MG TABLET 1 TABLET ORALLY ONCE A DAY TAKING CETIRIZINE HCL 10 MG TABLET 1 TABLET ORALLY ONCE A DAY TAKING METFORMIN HCL 500 MG TABLET 1 TABLET WITH A MEAL ORALLY TWICE A DAY TAKING HYDROCODONE-ACETAMINOPHEN 5-325 MG TABLET TAKE 1 TABLET ORALLY THREE TIMES DAILY NEEDED MDD #3 TAKING TIZANIDINE HCL 4 MG TABLET 0.5-1 TABLET NEEDED ORALLY 3 TIMES A DAY NEEDED FOR MUSCLE SPASMS TAKING GABAPENTIN 300 MG CAPSULE 3 CAPSULE S ORALLY THREE TIMES A DAY TAKING AZITHROMYCIN 250 MG TABLET 1 TAB ORALLY ONCE A DAY NOT-TAKING BACTRIM DS 800-160 MG TABLET 1 TABLET ORALLY ONCE DAILY NOT-TAKING PREDNISONE 10 MG TABLET 1 CAP ORALLY DAILY WITH FOOD MEDICATION LIST REVIEWED AND RECONCILED WITH THE PATIENT PAST MEDICAL HISTORY HTN, GOAL < 130/80 PER ACC/AHA HYPERLIPIDEMIA TYPE 2 DM, GOAL HBA1C < 6.5 INTERSTITIAL LUNG DISEASE - IS AWAITING APPT WITH DR RIVAS ON O2 CHRONIC LOW BACK PAIN - PAIN MANAGEMENT CAD WITH [place] 2014, STENT - CARDIOLOGY DEPRESSION HX OF MIGRAINES - NEUROLOGY [facility]RAH[facility] - ON CPAP ALLERGIES LATEX GLOVES: RASH/ITCHING SURGICAL HISTORY APPENDECTOMY 1967 C SECTION X2 1980. 1986 BILATERAL FOOT SURGERY 1988 PARTIAL HYSTERECTOMY 1988 RIGHT ROTATOR CUFF TEAR REPAIR 2014 HEART STENT 2014 LUNG BIOPSY 2018 LASIK SURGERY BILATERAL EYES 2017 LUNG BIOPSIES [id number] FAMILY HISTORY FATHER: 2 SON(S) , 2 DAUGHTER(S) . FATHER- NATURAL CAUSE, CONGESTIVE HEART DISEASEMOTHER- ALZHEIMERSSON- HANDICAPPEDBROTHER- [place]. SOCIAL HISTORY GENERAL: TOBACCO USE ARE YOU A:FORMER SMOKER HOW LONG HAS IT BEEN SINCE YOU LAST SMOKED?5-10 YEARS LATEX QUESTIONNAIRE LATEX ALLERGY : HAVE YOU EVER DEVELOPED ANY TYPE OF REACTION AFTER HANDLING LATEX PRODUCTS SUCH RUBBER GLOVES, CONDOMS, DIAPHRAGMS, BALLOONS, SOCKS, OR UNDERWEAR?YES POWDER CAUSES RASH - PLEASE INDICATE :RUBBER GLOVES LATEX ALLERGY : HAVE YOU EVER DEVELOPED ANY TYPE OF REACTION DURING OR AFTER DENTAL APPOINTMENT, VAGINAL/RECTAL EXAMINATION, SURGICAL PROCEDURE, OR ANY OTHER EXPOSURE?NO LATEX RISK : HAVE YOU EVER HAD ANY DIFFICULTY BREATHING OR HIVES AFTER EATING OR HANDLING ANY FRUITS, OR VEGETABLES; SUCH KIWI, BANANAS, STONE FRUITS, OR CHESTNUTSNO LATEX RISK : DO YOU HAVE A PREVIOUS PERSONAL HISTORY OF MORE THAN NINE SURGERIES, SPINA BIFIDA, OR REPEATED CATHERIZATIONS? NO LATEX RISK : ARE YOU FREQUENTLY EXPOSED TO LATEX PRODUCTS IN YOUR OCCUPATION?NO DATE ASKED : 03/13/2020 ALCOHOL SCREENING DID YOU HAVE A DRINK CONTAINING ALCOHOL IN THE PAST YEAR?NO POINTS0 INTERPRETATIONNEGATIVE RECREATIONAL DRUG USE DRUG USE?NO PATIENT DENIES ABUSE OR MISSUSED OF ANY MEDICATION DENIES PATIENT DENIES USE OF ANY ILLEGAL SUBSTANCE INCLUDING MARIJUANA OR COCAINE DENIES CAFFEINE CAFFEINE USE?YES ICED TEA, COFFEE SEXUAL HX HAD SEX IN THE LAST 12 MONTHS (VAGINAL, ORAL, OR ANAL)?NO LMP:1987 PARTIAL HYSTERECTOMY HAVE YOU EVER HAD AN STD?NO HIV / HEP-C SCREENING HIV TEST OFFERED TO PATIENT:YES DATE OFFERED:08/22/2019 TEST ACCEPTED:NO HEP-C TEST OFFERED TO PATIENT:YES DATE OFFERED:08/22/2019 REASON:PATIENT DECLINED TEST ACCEPTED:NO REASON:PATIENT DECLINED BROCHURE PROVIDED TO PATIENTYES JEWISH [id number] [facility] LANGUAGE LANGUAGES SPOKEN:TAJIK EDUCATION LEVEL OF EDUCATION:COLLEGE LEARNING BARRIERS / SPECIAL NEEDS CHANGE FROM LAST VISIT?NO BARRIERS TO LEARNING?NO HEARING IMPAIRED?NO VISION IMPAIRED?YES COGNITIVELY IMPAIRED?NO :CORRECTIVE LENSES READINESS TO LEARN?YES LEARNING PREFERENCES?NO LEARNING CAPABILITIES PRESENT?YES EMOTIONAL BARRIERS?NO SPECIAL DEVICES?YES :CANE BRANCH LIBRARY CLERK NEEDED?NO DOMESTIC VIOLENCE DO YOU FEEL SAFE IN YOUR ENVIRONMENT?YES OCCUPATION: RETIRED. DIET: REGULAR. EXERCISE: NO REGULAR EXERCISE. MARITAL STATUS: . OTHERS AT HOME: DAUGHTERS AMD GOD- CHILDREN. NEW PATIENT PAIN DIARY TODAY'S VISITNOTES 03/13/2020 PATIENT DESCRIBES PAIN :ACHING, HAVE IT ALL THE TIME FROM 0-10, WHAT LEVEL IS YOUR PAIN TODAY?8 PAIN CLINIC PFS, CLERGY, PUBLIC HEALTH REFERRALS PFS REFERRAL NEEDED?NO CLERGY REFERRAL NEEDED?NO PUBLIC HEALTH REFERRAL NEEDED?NO WAS THE PROVIDER NOTIFIED OF ANY PERTINENT INFO?YES HAS THE PATIENT BEEN EDUCATED REGARDING HIS/HER PLAN OF CARE?YES HAS THE PATIENT BEEN EDUCATED REGARDING PAIN, THE RISK FOR PAIN, THE IMPORTANCE OF EFFECTIVE PAIN MANAGEMENT, AND THE PAIN ASSESSMENT PROCESS?YES HOUSING: OWNS HOME. ADVANCE DIRECTIVE ADVANCE DIRECTIVE DISCUSSED WITH PATIENT:YES HCP- ROLANDO KU- HOSPITALIZATION/MAJOR DIAGNOSTIC PROCEDURE PNEUMONIA, HYPOXIA 12/2018,12/2018, 01/2019 [facility] RE[facility] OF SYSTEMS REVIEWED BY: PROVIDER: JUSTICE MENDOZA . CONSTITUTIONAL: ANY CHANGE IN YOUR MEDICAL CONDITION? NO . CHILLS NO . FEVER NO . INFECTION: DO YOU HAVE NEW INFECTIONS? NO . DO YOU HAVE HISTORY OF MRSA? NO . MUSCULOSKELETAL: ANY NEW PATTERNS OF PAIN OR NUMBNESS? NO . GASTROENTEROLOGY: ANY NEW CHANGE IN BOWEL CONTROL? NO . GENITOURINARY: ANY NEW CHANGE IN BLADDER CONTROL? NO . IS THERE A CHANCE YOU COULD BE ? NO . HEMATOLOGY/LYMPH: DO YOU TAKE ANY BLOOD THINNERS? (FOR EXAMPLE- COUMADIN, PLAVIX, AGGRENOX, PLATEL, PRADAXA, OR XARELTO) NO . WHEN WAS YOUR LAST DOSE? DATE: TIME: . NEUROLOGY: HAVE YOU FALLEN IN THE PAST 12 MONTHS? FALLEN AND HIT HEAD. . ANY NEW EXTREMITY NUMBNESS OR WEAKNESS? NO . CARDIOLOGY: DO YOU HAVE A PACEMAKER OR DEFIBRILLATOR? NO . RESPIRATORY: HAVE YOU BEEN SICK IN THE PAST WEEK? NO . FEVER NO . FLU LIKE SYMPTOMS? NO . COUGH NO . INTEGUMENTARY: DO YOU HAVE ANY RASHES OR OPEN SORES? NO . ALLERGIC/IMMUNO: ARE YOU ALLERGIC TO IV DYE? NO . ANY NEW ALLERGIES? NO . PSYCHIATRIC: DO YOU HAVE THOUGHTS OF HURTING YOURSELF OR SOMEONE ELSE? NO . ARE YOU ABUSED, NEGLECTED, OR IN AN UNSAFE ENVIRONMENT? NO . ENDOCRINOLOGY: ARE YOU DIABETIC? YES . OTHER: DO YOU NEED ANY PRESCRIPTIONS? NO . IF YES, PLEASE LIST: ____ . ANY NEW PROBLEMS WITH YOUR MEDICATIONS? NO . WHEN DID YOU LAST EAT? ____ . WHEN DID YOU LAST DRINK? ____ . WHAT DID YOU LAST DRINK? ____ . NAME OF PERSON DRIVING YOU HOME? ____ . DO YOU HAVE ANY OTHER QUESTIONS OR CONCERNS NO . VITAL SIGNS WT 175.8 LBS, HT 62 IN, BMI 32.15 INDEX, BP 114/56 MM HG, HR 96 /MIN, RR 20 /MIN, TEMP 97.2 F, OXYGEN SAT % 94%, SAFE IN ENV? (Y/N) Y, NA INITIALS AW 1326, REVIEWED BY: MONTY. EXAMINATION GENERAL EXAMINATION: GENERAL AWAKE,ALERT ,PLEASANT . PSYCH AFFECT NORMAL . LUNGS: LUNG TAM ARE CLEAR TO AUSCULTATION BILATERALLY. GOOD MOVEMENT OF AIR . HEART: S1, S2 IN A REGULAR RATE AND RHYTHM. NO SIGNIFICANT MURMURS, RUBS OR GALLOPS NOTED . LUMBAR: PALPATION: + FOR PAIN OVER L/S SPINE. + FOR PAIN OVER L/S PARASPINALS MODIFIED SLE: POSITIVE OVER RIGHT LEG AT 20 DEGREES. ASSESSMENTS INTERVERTEBRAL DISC DISORDERS WITH RADICULOPATHY, LUMBAR REGION - M51.16 (PRIMARY) TREATMENT INTERVERTEBRAL DISC DISORDERS WITH RADICULOPATHY, LUMBAR REGION NOTES: L4/5 LESI. PROCEDURE CODES FA211 ESTABILISHED PATIENT [facility] FACILITY CHARGE DISPOSITION & COMMUNICATION FOLLOW UP POST (REASON: L4/5 LESI) ELECTRONICALLY SIGNED BY REJI BERGER ON 03/14/2020 AT 12:48 PM EDT DISCLAIMER : THIS IS A VISIT SUMMARY EXTRACTED FROM THE [employer] CHART. IT IS NOT A COPY OF THE [employer] PROGRESS NOTE. MAHDAVI
== END ==
LOC: M PAIN 13:45
PROVIDERS: ATTEND Nurse Practitioner Family
DX: M51.16 Intervertebral disc disorders with radiculopathy, lumbar region (principal); G89.29 Other chronic pain; I10 Essential (primary) hypertension; E11.9 Type 2 diabetes mellitus without complications; Z86.59 Personal history of other mental and behavioral disorders; G43.909 Migraine, unspecified, not intractable, without status migrainosus; G47.33 Obstructive sleep apnea (adult) (pediatric); Z87.891 Personal history of nicotine dependence; Z91.040 Latex allergy status; Z79.82 Long term (current) use of aspirin; Z79.899 Other long term (current) drug therapy

== ENCOUNTER → 2020-03-23 | Outpatient (CLI) | payer OTHER | LOC: M LABSMTC 09:58 | PROVIDERS: ATTEND Anesthesiology | DX: Z11.59 Encounter for screening for other viral diseases (principal) ==

== ENCOUNTER → 2020-03-26 | Outpatient (CLI) | payer OTHER ==
[~2020-03-26] MED LIST changes: +ISOVUE-M 300 61% 15ML VIAL As Ordered ONE; +LIDOCAINE 1% SDV 30ML VIAL As Ordered ONE; +NORCO, ANEXSIA 5/325MG TABLET (HYDROcodone/ACETAMINOPHEN) As Ordered ONE; +dexameTHASONE 10MG/1ML VIAL PRES.FREE (J1100 PER 1MG) As Ordered ONE
--- NOTE | 2020-03-26 12:29 | REP ---
C-ARM VIEWS OF THE LUMBAR SPINE: CLINICAL HISTORY: Pain. Three C-arm views of the lower lumbar spine performed during epidural injection by Dr. Marie. A needle is seen at the L5 region. A small amount of contrast is injected. 15 seconds of fluoroscopy time utilized. Electronically Signed by Brijesh Aguilar MD 03/26/2020 12:31 P
--- NOTE | 2020-03-29 00:46 | ECWPNPC ---
PATIENT NAME: CASEY KU : 1950 GENDER: FEMALE VISIT DATE: 03/26/2020 DISCHARGE DATE: 03/26/20 1224 VISIT LOCKED DATE TIME: PHYSICIAN: MYLES GALLARDO MD RESOURCE: MYLES GALLARDO MD REASON FOR APPOINTMENT 1. L4/5 KORTNEY MCCRAY PHONE CALL DONE-DAUGHTER (HCP) ACCOMPANY-CLEARED HISTORY OF PRESENT ILLNESS GENERAL: -. FALL RISK SCREENING: SCREENING :ONE FALL WITHOUT INJURY IN THE PAST YEAR PAIN SCREENING: PATIENT HAS A COMPLAINT OF ACUTE OR CHRONIC PAIN :YES LOCATION OF PAIN:LOW BACK, LEG(S), THIGH(S), KNEES ACHING IN LOW BACK, WITH NUMBNESS AND BURNING GOING DOWN BOTH LEGS TO KNEES INTENSITY OF PAIN (SCALE OF 1 TO 10):8 WHAT DOES YOUR PAIN FEEL LIKE:ACHING, BURNING, CONTINOUS PAIN IS INREASED BY:ACTIVITIES, PROLONGED STANDING PAIN IS DECREASED BY:SITTING TREATMENT/MEDICATIONS USED TO MANAGE PAIN:OTC PAIN RELIEVERS LEVEL OF RELIEF FROM PAIN TREATMENTS IN THE PAST: PT REPORTS PAIN RELIEF FROM INJECTIONS NURSING NOTE: -. PAIN CENTER INTAKE QUESTIONS: DO YOU HAVE A HISTORY OF MRSA? :NO DO YOU TAKE A BLOOD THINNERS? :NO DO YOU HAVE ANY BLEEDING DISORDERS? :NO ANY NEW NUMBNESS OR WEAKNESS IN YOUR LEGS OR ARMS? :NO PT REPORTS NUMBNESS SEEMS TO BE IN LARGER AREA NOW IN HER LEFT LEG ANY PACEMAKER,DEFIBRILLATOR, OR DORSAL COLUMN STIMULATOR? :NO DO YOU HAVE ANY RASHES OR OPEN SORES? :NO ARE YOU ALLERGIC TO IV DYE? :NO ARE YOU DIABETIC? :YES ANY NEW PROBLEMS WITH YOUR MEDICATIONS? :NO HAVE YOU RECEIVED A VACCINE IN THE PAST 30 DAYS? :NO DO YOU PLAN TO RECEIVE A VACCINE IN THE NEXT 21 DAYS? :NO ANY HISTORY OF SEIZURES? :NO ANY HISTORY OF CARDIAC ISSUES OR EVENTS? :YES IN 2014, ONE CARDIAC STENT DO YOU HAVE SLEEP APNEA? :YES DO YOU WEAR A CPAP?YES ANY RECENT HEAD INJURY? :NO DO YOU HAVE ANY NEW INFECTIONS? :NO WHEN DID YOU LAST EAT?03/25____DAUGHTER RUTH__ DO YOU HAVE ANY OTHER QUESTIONS OR CONCERNS? . CURRENT MEDICATIONS TAKING LISINOPRIL 10 MG TABLET 1 TABLET ORALLY ONCE A DAY, NOTES: 03/25 0800 TAKING ASPIRIN 81 81 MG TABLET DELAYED RELEASE 1 TABLET ORALLY ONCE A DAY, NOTES: 03/27 2000 TAKING PROPRANOLOL HCL ER 60 MG CAPSULE EXTENDED RELEASE 24 HOUR 1 CAPSULE ORALLY ONCE A DAY, NOTES: 03/25 800 TAKING ATORVASTATIN CALCIUM 40 MG TABLET 1 TABLET ORALLY DAILY, NOTES: 03/25 800 TAKING BUPROPION HCL ER (SR) 150 MG TABLET EXTENDED RELEASE 12 HOUR 1 TABLET ORALLY TWICE A DAY, NOTES: 03/25 2000 TAKING ALBUTEROL SULFATE HFA 108 (90 BASE) MCG/ACT AEROSOL SOLUTION 2 PUFFS NEEDED INHALATION EVERY 6 HRS PRN, NOTES: 03/22 TAKING NYSTATIN [id number] UNIT/GM POWDER 1 APPLICATION EXTERNALLY TO GROIN TWICE A DAY, NOTES: > 1 WEEK TAKING CETIRIZINE HCL 10 MG TABLET 1 TABLET ORALLY ONCE A DAY, NOTES: 03/25 800 TAKING METFORMIN HCL 500 MG TABLET 1 TABLET WITH A MEAL ORALLY TWICE A DAY, NOTES: 03/25 2000 TAKING TIZANIDINE HCL 4 MG TABLET 0.5-1 TABLET NEEDED ORALLY 3 TIMES A DAY NEEDED FOR MUSCLE SPASMS, NOTES: 03/25 2000 TAKING GABAPENTIN 300 MG CAPSULE 3 CAPSULE S ORALLY THREE TIMES A DAY, NOTES: 03/25 2000 TAKING AZITHROMYCIN 250 MG TABLET 1 TAB ORALLY ONCE A DAY, NOTES: 03/25 800 TAKING PRESERVISION AREDS - CAPSULE 1 CAP ORALLY ONCE DAILY, NOTES: 03/25 800 TAKING VITAMIN B12 _ TABLET 1 TABLET ORALLY ONCE A DAY, NOTES: 03/25 800 TAKING FUROSEMIDE 20 MG TABLET 1 TABLET ORALLY NEEDED FOR EDEMA, NOTES: 03/25 800 NOT-TAKING MELOXICAM 7.5 MG TABLET 1 TABLET ORAL DAILY NOT-TAKING HYDROCODONE-ACETAMINOPHEN 5-325 MG TABLET TAKE 1 TABLET ORALLY THREE TIMES DAILY NEEDED MDD #3 NOT-TAKING BACTRIM DS 800-160 MG TABLET 1 TABLET ORALLY ONCE DAILY NOT-TAKING PREDNISONE 10 MG TABLET 1 CAP ORALLY DAILY WITH FOOD MEDICATION LIST REVIEWED AND RECONCILED WITH THE PATIENT PAST MEDICAL HISTORY HTN, GOAL < 130/80 PER ACC/AHA HYPERLIPIDEMIA TYPE 2 DM, GOAL HBA1C < 6.5 INTERSTITIAL LUNG DISEASE - DR. RIVAS CHRONIC LOW BACK PAIN - PAIN MANAGEMENT CAD WITH [place] 2014, STENT - CARDIOLOGY DEPRESSION HX OF MIGRAINES - NEUROLOGY [place] - ON CPAP ALLERGIES LATEX GLOVES: RASH/ITCHING - ALLERGY BEE STINGS: ANAPHYLAXIS - ALLERGY SURGICAL HISTORY APPENDECTOMY 1967 C SECTION X2 1980. 1986 BILATERAL FOOT SURGERY 1988 PARTIAL HYSTERECTOMY 1988 COLONOSCOPY WITH POLYPECTOMY 2012 RIGHT ROTATOR CUFF TEAR REPAIR 2014 HEART STENT 2013 LUNG BIOPSY 2018 LASIK SURGERY BILATERAL EYES 2017 COLONOSCOPY, REPORTEDLY DIVERTICULOSIS BUT NO POLYPS 2017 LUNG BIOPSIES [phone] FAMILY HISTORY FATHER: 2 SON(S) , 2 DAUGHTER(S) . FATHER- NATURAL CAUSE, CONGESTIVE HEART DISEASEMOTHER- ALZHEIMERSSON- HANDICAPPEDBROTHER- [place]. SOCIAL HISTORY GENERAL: TOBACCO USE ARE YOU A:FORMER SMOKER HOW LONG HAS IT BEEN SINCE YOU LAST SMOKED?5-10 YEARS LATEX QUESTIONNAIRE LATEX ALLERGY : HAVE YOU EVER DEVELOPED ANY TYPE OF REACTION AFTER HANDLING LATEX PRODUCTS SUCH RUBBER GLOVES, CONDOMS, DIAPHRAGMS, BALLOONS, SOCKS, OR UNDERWEAR?YES POWDER CAUSES RASH LATEX ALLERGY : HAVE YOU EVER DEVELOPED ANY TYPE OF REACTION DURING OR AFTER DENTAL APPOINTMENT, VAGINAL/RECTAL EXAMINATION, SURGICAL PROCEDURE, OR ANY OTHER EXPOSURE?NO - PLEASE INDICATE :RUBBER GLOVES DATE ASKED : 03/13/2020 LATEX RISK : HAVE YOU EVER HAD ANY DIFFICULTY BREATHING OR HIVES AFTER EATING OR HANDLING ANY FRUITS, OR VEGETABLES; SUCH KIWI, BANANAS, STONE FRUITS, OR CHESTNUTSNO LATEX RISK : DO YOU HAVE A PREVIOUS PERSONAL HISTORY OF MORE THAN NINE SURGERIES, SPINA BIFIDA, OR REPEATED CATHERIZATIONS? NO LATEX RISK : ARE YOU FREQUENTLY EXPOSED TO LATEX PRODUCTS IN YOUR OCCUPATION?NO ALCOHOL SCREENING DID YOU HAVE A DRINK CONTAINING ALCOHOL IN THE PAST YEAR?NO POINTS0 INTERPRETATIONNEGATIVE RECREATIONAL DRUG USE DRUG USE?NO PATIENT DENIES ABUSE OR MISSUSED OF ANY MEDICATION DENIES PATIENT DENIES USE OF ANY ILLEGAL SUBSTANCE INCLUDING MARIJUANA OR COCAINE DENIES CAFFEINE CAFFEINE USE?YES ICED TEA, COFFEE SEXUAL HX HAD SEX IN THE LAST 12 MONTHS (VAGINAL, ORAL, OR ANAL)?NO LMP:1988 PARTIAL HYSTERECTOMY HAVE YOU EVER HAD AN STD?NO HIV / HEP-C SCREENING HIV TEST OFFERED TO PATIENT:YES DATE OFFERED:08/22/2019 TEST ACCEPTED:NO HEP-C TEST OFFERED TO PATIENT:YES DATE OFFERED:08/22/2019 REASON:PATIENT DECLINED TEST ACCEPTED:NO REASON:PATIENT DECLINED BROCHURE PROVIDED TO PATIENTYES BAPTISM [id number] RASTAFARI LANGUAGE LANGUAGES SPOKEN:BULGARIAN EDUCATION LEVEL OF EDUCATION:COLLEGE LEARNING BARRIERS / SPECIAL NEEDS CHANGE FROM LAST VISIT?NO 03/25/2020 BARRIERS TO LEARNING?NO HEARING IMPAIRED?NO VISION IMPAIRED?YES :CORRECTIVE LENSES COGNITIVELY IMPAIRED?NO READINESS TO LEARN?YES LEARNING PREFERENCES?NO LEARNING CAPABILITIES PRESENT?YES EMOTIONAL BARRIERS?NO SPECIAL DEVICES?YES :CANE CAR TRACER NEEDED?NO DOMESTIC VIOLENCE DO YOU FEEL SAFE IN YOUR ENVIRONMENT?YES OCCUPATION: RETIRED. DIET: REGULAR. EXERCISE: NO REGULAR EXERCISE. MARITAL STATUS: . OTHERS AT HOME: DAUGHTERS AMD GOD- CHILDREN. NEW PATIENT PAIN DIARY TODAY'S VISIT NOTES 03/13/2020, PATIENT DESCRIBES PAIN : ACHING, HAVE IT ALL THE TIME, FROM 0-10, WHAT LEVEL IS YOUR PAIN TODAY? 8. PAIN CLINIC PFS, CLERGY, PUBLIC HEALTH REFERRALS PFS REFERRAL NEEDED?NO CLERGY REFERRAL NEEDED?NO PUBLIC HEALTH REFERRAL NEEDED?NO WAS THE PROVIDER NOTIFIED OF ANY PERTINENT INFO?YES HAS THE PATIENT BEEN EDUCATED REGARDING HIS/HER PLAN OF CARE?YES HAS THE PATIENT BEEN EDUCATED REGARDING PAIN, THE RISK FOR PAIN, THE IMPORTANCE OF EFFECTIVE PAIN MANAGEMENT, AND THE PAIN ASSESSMENT PROCESS?YES HOUSING: OWNS HOME. ADVANCE DIRECTIVE ADVANCE DIRECTIVE DISCUSSED WITH PATIENT:YES HCP- DAUGHTER- RUTH KU- HOSPITALIZATION/MAJOR DIAGNOSTIC PROCEDURE PNEUMONIA, HYPOXIA 12/2018,12/2018, 01/2019 SURGERIS VITAL SIGNS WT 174.8 LBS, HT 62 IN, BMI 31.97 INDEX, BP 113/74 MM HG, HR 79 /MIN, RR 20 /MIN, TEMP 98.8 F, OXYGEN SAT % 90% 4L, NA INITIALS TL 1040. EXAMINATION GENERAL EXAMINATION: THE PATIENT IS ALERT, ORIENTED TIMES THREE AND COOPERATIVE. HEART SHOWS REGULAR RHYTHM, NO MURMURS AND NO GALLOPS. LUNGS ARE CLEAR TO AUSCULTATION. THE PATIENT IS USING OXYGEN. ASSESSMENTS LUMBAR SPINAL STENOSIS - M48.061 (PRIMARY) INTERVERTEBRAL DISC DISORDERS WITH RADICULOPATHY, LUMBAR REGION - M51.16 TREATMENT INTERVERTEBRAL DISC DISORDERS WITH RADICULOPATHY, LUMBAR REGION [facility] FLUORO GUIDE SPINE INJECTION (PAIN)[id number] PROCEDURES PAIN NURSING RECORD PRE-PROCEDURE IV SITE NA : HYDROCODONE/ACETAMINOPHEN 5/325 MG GIVEN AT 1100 LAS HEART SOUNDS REGULAR, LUNGS CLEAR BILATERALLY. ON O2 AT 4 LITERS. PT AMBULATED TO PROCEDURE ROOM WITH ONE ASSIST, GAIT STEADY. PROCEDURE IN ROOM 1125, PHYSICIAN IN ROOM 1144, START 1147, FINISH 1155, PHYSICIAN OUT OF ROOM 1157, OUT OF ROOM 1205, STEROID DEXAMETHASONE, O2 LITERS/MIN, NC 4 L, ECG NORMAL SINUS, PATIENT SHIELDED YES, SAFETY STRAP YES, PREP BY:, BETADINE KATIE ALTON, DRESSING TEGADERM, BY: DR. GALLARDO : POST PAIN 0/10, IV N/A, DRESSING DRY AND INTACT YES, GAIT STEADY BP: 1130 134/78 1145 129/59 1200 125/64 1220 122/59 PULSE: 1130 68 1145 67 1200 66 1220 82 RESP: 1130 18 1145 18 1200 18 1220 18 O2: 4L SAT: 1130 98% 1145 97% 1200 96% 1220 94% LOC: 1. ALERT, ORIENTED RESP: 1.REGULAR, NO DYSPNEA COLOR: 1.PINK SKIN: 1. WARM,DRY POSITION: 1. PRONE DISCHARGE: POST PAIN 0/10, DRESSING SITE DRY AND INTACT, GAIT STEADY, TEACHING COMPLETED, PATIENT ACKNOWLEDGES UNDERSTANDING YES, PATIENT DISCHARGED AT 1230 PRE PROCEDURE DIAGNOSIS LUMBAR SPINAL STENOSIS, LUMBAR DISC DISORDER WITH RADICULOPATHY POST PROCEDURE DIAGNOSIS LUMBAR SPINAL STENOSIS, LUMBAR DISC DISORDER WITH RADICULOPATHY PROCEDURE LUMBAR EPIDURAL STEROID INJECTION UNDER FLUOROSCOPIC GUIDANCE SURGEON DR. MYLES GALLARDO CULINARY INTERN NONE ANESTHESIA LOCAL PRE PROCEDURE NOTE THE PATIENT HAS A HISTORY OF CHRONIC LOW BACK PAIN. I EVALUATED THE PATIENT AND REVIEWED THE CHART. I WENT OVER THE RISKS, ALTERNATIVES, AND BENEFITS ASSOCIATED WITH THIS PROCEDURE. THE PATIENT IS AWARE TO STAY HOME FOR THE NEXT WEEK, IF POSSIBLE, DUE TO COVID-19. THE PATIENT WOULD LIKE TO PROCEED AND GIVE CONSENT TO PERFORMED THE PROCEDURE. THE PATIENT DENIES UNEXPLAINABLE WEIGHT LOSS, FEVER, CHILLS, OR NEW CHANGES IN URINARY OR BOWEL CONTROL. THE PATIENT IS COVID-19 NEGATIVE DESCRIPTION OF PROCEDURE THE PATIENT WAS BROUGHT TO THE PROCEDURE ROOM AND PLACED IN THE PRONE POSITION. THE LUMBOSACRAL AREA WAS CLEANED WITH BETADINE SOLUTION AND DRAPED ASEPTICALLY. THE PROCEDURE WAS DONE UNDER STERILE CONDITIONS. I CHECKED LATERALITY AND THE LEVEL WHERE THE PROCEDURE WAS GOING TO BE PERFORMED WITH THE PATIENT AND THE SUPPORTING STAFF AT THE MOMENT OF THE TIME OUT IN THE PROCEDURE ROOM. UNDER FLUOROSCOPIC GUIDANCE, THE TARGET POINT WAS SELECTED AT THE INTERLAMINAR LEVEL OF L4-L5. LIDOCAINE WAS USED TO NUMB THE SKIN AND THE SUBCUTANEOUS TISSUE BELOW IT. EPIDURAL TUOHY NEEDLE, 17-GAUGE, WAS ADVANCED UNDER FLUOROSCOPIC GUIDANCE AND FOLLOWING PATIENT FEEDBACK UNTIL THE EPIDURAL SPACE WAS REACHED 7 CM DEEP INTO THE SKIN BY THE LOSS OF RESISTANCE TECHNIQUE. ISOVUE M DYE 30%, 0.25 ML, WAS INJECTED SHOWING ADEQUATE SPREAD OF THE DYE. THEN, A SOLUTION OF 3 ML OF NORMAL SALINE WITH DEXAMETHASONE 10 MG WAS INJECTED SLOWLY FOLLOWING PATIENT FEEDBACK. THERE WAS NO EVIDENCE OF BLOOD, PARESTHESIA OR CEREBROSPINAL FLUID DURING THE PROCEDURE. THE PATIENT WAS SENT TO THE RECOVERY ROOM. THE PATIENT WAS MOVING THE EXTREMITIES AND DOING WELL. THERE WAS NO COMPLICATION DURING THE PROCEDURE. FLUOROSCOPY TIME WAS 15 SECONDS POST PROCEDURE NOTE DEPENDING ON THE RESULT OF THIS INJECTION, CONSIDER A TRANSFORAMINAL EPIDURAL INJECTION ON THE PATIENT. THE PATIENT WILL BE SEEN IN A FOLLOW UP IN THE NEXT FEW WEEKS. I AM LOOKING FOR LONG LASTING RELIEF FOR THE PATIENT WITH THIS INTERVENTION. INSTRUCTIONS WERE GIVEN, QUESTIONS WERE ANSWERED, AND THE PATIENT EXPRESSED UNDERSTANDING AND AGREES WITH THE PLAN. THE PATIENT IS AWARE TO STAY HOME FOR THE NEXT WEEK, IF POSSIBLE, DUE TO COVID-19. I, GENNY RICHARDSON, DOCUMENTED THE ABOVE INFORMATION ACTING A SCRIBE FOR DR. GALLARDO. I HAVE REVIEWED THE ABOVE DOCUMENT, WRITTEN BY GENNY RICHARDSON, CONCRETE PRECAST MOULDER, AND I VERIFY THAT IT IS ACCURATE PROCEDURE CODES 11301 LUMBAR/SACRAL W/ IMAGING DISPOSITION & COMMUNICATION FOLLOW UP F/UP WITH MUSIC VIDEO DIRECTOR (REASON: POST LESI L4-L5) ELECTRONICALLY SIGNED BY MYLES GALLARDO MD, ON 03/28/2020 AT 11:06 AM EDT DISCLAIMER : THIS IS A VISIT SUMMARY EXTRACTED FROM THE [employer] CHART. IT IS NOT A COPY OF THE [employer] PROGRESS NOTE. MADHAVI
== END ==
LOC: M PAIN 10:45
PROVIDERS: ATTEND Anesthesiology
DX: M48.061 Spinal stenosis, lumbar region without neurogenic claudication (principal); M51.16 Intervertebral disc disorders with radiculopathy, lumbar region
CPT/HCPCS: 62323; J1100; Q9967

== ENCOUNTER → 2020-04-10 | Outpatient (CLI) | payer OTHER ==
[~2020-04-10] MED LIST changes: -ISOVUE-M 300 61% 15ML VIAL As Ordered ONE; -LIDOCAINE 1% SDV 30ML VIAL As Ordered ONE; -NORCO, ANEXSIA 5/325MG TABLET (HYDROcodone/ACETAMINOPHEN) As Ordered ONE; -dexameTHASONE 10MG/1ML VIAL PRES.FREE (J1100 PER 1MG) As Ordered ONE
--- NOTE | 2020-04-12 01:32 | ECWPNPC ---
PATIENT NAME: CASEY KU : 1950 GENDER: FEMALE VISIT DATE: 04/10/2020 DISCHARGE DATE: 04/10/20 1259 VISIT LOCKED DATE TIME: PHYSICIAN: JUSTICE SCHOFIELD RESOURCE: JUSTICE SCHOFIELD REASON FOR APPOINTMENT 1. POST LESI [phone] HISTORY OF PRESENT ILLNESS GENERAL: CASEY IS AGREEABLE TO TELEPHONE VISIT TODAY. HAD L4-5 LESI ON 03/26/2020. REPORTS MARKED REDUCTION IN BOTH LOW BACK PAIN AND RIGHT LEG SYMPTOMS FOR 3 OR 4 DAYS POST PROCEDURE. THEN PAIN GRADUALLY RETURNED TO BASELINE. CONTINUES WITH SOME IMPROVEMENT IN RIGHT LEG PAIN, BUT FEELS THAT THIS IS RETURNING WELL. COMPLAINING OF LEFT LEG NUMBNESS. DR. GALLARDO HAD SUGGESTED A RIGHT TRANSFORAMINAL INJECTION. SUFFERS FROM SEVERE LOW BACK PAIN, RIGHT GREATER THAN LEFT. -. FALL RISK SCREENING: SCREENING :NO FALLS REPORTED IN THE LAST YEAR PAIN SCREENING: PATIENT HAS A COMPLAINT OF ACUTE OR CHRONIC PAIN :YES 04/10/20 INTENSITY OF PAIN (SCALE OF 1 TO 10):9 WHAT DOES YOUR PAIN FEEL LIKE:ACHING, CONTINOUS, SHARP, STABBING, THROBBING PAIN IS INCREASED BY: STANDING, POSITIONAL PAIN IS DECREASED BY: POSITIONAL, MEDS NURSING NOTE: -. PAIN CENTER INTAKE QUESTIONS: DO YOU HAVE A HISTORY OF MRSA? :NO DO YOU TAKE A BLOOD THINNERS? :NO DO YOU HAVE ANY BLEEDING DISORDERS? :NO ANY NEW NUMBNESS OR WEAKNESS IN YOUR LEGS OR ARMS? :YES LEFT SIDE TINGLING BURNING ANY PACEMAKER,DEFIBRILLATOR, OR DORSAL COLUMN STIMULATOR? :NO DO YOU HAVE ANY RASHES OR OPEN SORES? :NO ARE YOU ALLERGIC TO IV DYE? :NO ARE YOU DIABETIC? :YES ANY NEW PROBLEMS WITH YOUR MEDICATIONS? :NO HAVE YOU RECEIVED A VACCINE IN THE PAST 30 DAYS? :NO DO YOU PLAN TO RECEIVE A VACCINE IN THE NEXT 21 DAYS? :NO DO YOU NEED ANY PRESCRIPTION? :NO DO YOU TAKE ANY IMMUNOSUPPRESSIVE MEDICATIONS? :NO IS THERE A CHANCE YOU COULD BE ? :NO ARE YOU BREAST FEEDING? :NO CURRENT MEDICATIONS TAKING LISINOPRIL 10 MG TABLET 1 TABLET ORALLY ONCE A DAY TAKING ASPIRIN 81 81 MG TABLET DELAYED RELEASE 1 TABLET ORALLY ONCE A DAY TAKING PROPRANOLOL HCL ER 60 MG CAPSULE EXTENDED RELEASE 24 HOUR 1 CAPSULE ORALLY ONCE A DAY TAKING ATORVASTATIN CALCIUM 40 MG TABLET 1 TABLET ORALLY DAILY TAKING BUPROPION HCL ER (SR) 150 MG TABLET EXTENDED RELEASE 12 HOUR 1 TABLET ORALLY TWICE A DAY TAKING ALBUTEROL SULFATE HFA 108 (90 BASE) MCG/ACT AEROSOL SOLUTION 2 PUFFS NEEDED INHALATION EVERY 6 HRS PRN TAKING NYSTATIN [id number] UNIT/GM POWDER 1 APPLICATION EXTERNALLY TO GROIN TWICE A DAY TAKING CETIRIZINE HCL 10 MG TABLET 1 TABLET ORALLY ONCE A DAY TAKING METFORMIN HCL 500 MG TABLET 1 TABLET WITH A MEAL ORALLY TWICE A DAY TAKING TIZANIDINE HCL 4 MG TABLET 0.5-1 TABLET NEEDED ORALLY 3 TIMES A DAY NEEDED FOR MUSCLE SPASMS TAKING GABAPENTIN 300 MG CAPSULE 3 CAPSULE S ORALLY THREE TIMES A DAY TAKING AZITHROMYCIN 250 MG TABLET 1 TAB ORALLY ONCE A DAY TAKING PRESERVISION AREDS - CAPSULE 1 CAP ORALLY ONCE DAILY TAKING VITAMIN B12 _ TABLET 1 TABLET ORALLY ONCE A DAY TAKING FUROSEMIDE 20 MG TABLET 1 TABLET ORALLY NEEDED FOR EDEMA TAKING MELOXICAM 7.5 MG TABLET 1 TABLET ORALLY ONCE A DAY NOT-TAKING MELOXICAM 7.5 MG TABLET 1 TABLET ORAL DAILY NOT-TAKING HYDROCODONE-ACETAMINOPHEN 5-325 MG TABLET TAKE 1 TABLET ORALLY THREE TIMES DAILY NEEDED MDD #3 NOT-TAKING BACTRIM DS 800-160 MG TABLET 1 TABLET ORALLY ONCE DAILY NOT-TAKING PREDNISONE 10 MG TABLET 1 CAP ORALLY DAILY WITH FOOD MEDICATION LIST REVIEWED AND RECONCILED WITH THE PATIENT PAST MEDICAL HISTORY HTN, GOAL < 130/80 PER ACC/AHA HYPERLIPIDEMIA TYPE 2 DM, GOAL HBA1C < 6.5 INTERSTITIAL LUNG DISEASE - DR. RIVAS CHRONIC LOW BACK PAIN - PAIN MANAGEMENT CAD WITH [place] 2013, STENT - CARDIOLOGY DEPRESSION HX OF MIGRAINES - NEUROLOGY [place] - ON CPAP ALLERGIES LATEX GLOVES: RASH/ITCHING - ALLERGY BEE STINGS: ANAPHYLAXIS - ALLERGY SURGICAL HISTORY APPENDECTOMY 1967 C SECTION X2 1980. 1986 BILATERAL FOOT SURGERY 1988 PARTIAL HYSTERECTOMY 1988 COLONOSCOPY WITH POLYPECTOMY 2012 RIGHT ROTATOR CUFF TEAR REPAIR 2014 HEART STENT 2014 LUNG BIOPSY 2018 LASIK SURGERY BILATERAL EYES 2017 COLONOSCOPY, REPORTEDLY DIVERTICULOSIS BUT NO POLYPS 2017 LUNG BIOPSIES [id number] FAMILY HISTORY FATHER: 2 SON(S) , 2 DAUGHTER(S) . FATHER- NATURAL CAUSE, CONGESTIVE HEART DISEASEMOTHER- ALZHEIMERSSON- HANDICAPPEDBROTHER- [place]. SOCIAL HISTORY GENERAL: TOBACCO USE ARE YOU A:FORMER SMOKER HOW LONG HAS IT BEEN SINCE YOU LAST SMOKED?5-10 YEARS LATEX QUESTIONNAIRE LATEX ALLERGY : HAVE YOU EVER DEVELOPED ANY TYPE OF REACTION AFTER HANDLING LATEX PRODUCTS SUCH RUBBER GLOVES, CONDOMS, DIAPHRAGMS, BALLOONS, SOCKS, OR UNDERWEAR?YES POWDER CAUSES RASH LATEX ALLERGY : HAVE YOU EVER DEVELOPED ANY TYPE OF REACTION DURING OR AFTER DENTAL APPOINTMENT, VAGINAL/RECTAL EXAMINATION, SURGICAL PROCEDURE, OR ANY OTHER EXPOSURE?NO - PLEASE INDICATE :RUBBER GLOVES DATE ASKED : 03/13/2020 LATEX RISK : HAVE YOU EVER HAD ANY DIFFICULTY BREATHING OR HIVES AFTER EATING OR HANDLING ANY FRUITS, OR VEGETABLES; SUCH KIWI, BANANAS, STONE FRUITS, OR CHESTNUTSNO LATEX RISK : DO YOU HAVE A PREVIOUS PERSONAL HISTORY OF MORE THAN NINE SURGERIES, SPINA BIFIDA, OR REPEATED CATHERIZATIONS? NO LATEX RISK : ARE YOU FREQUENTLY EXPOSED TO LATEX PRODUCTS IN YOUR OCCUPATION?NO ALCOHOL SCREENING DID YOU HAVE A DRINK CONTAINING ALCOHOL IN THE PAST YEAR?NO POINTS0 INTERPRETATIONNEGATIVE RECREATIONAL DRUG USE DRUG USE?NO PATIENT DENIES ABUSE OR MISSUSED OF ANY MEDICATION DENIES PATIENT DENIES USE OF ANY ILLEGAL SUBSTANCE INCLUDING MARIJUANA OR COCAINE DENIES CAFFEINE CAFFEINE USE?YES ICED TEA, COFFEE SEXUAL HX HAD SEX IN THE LAST 12 MONTHS (VAGINAL, ORAL, OR ANAL)?NO LMP:1988 PARTIAL HYSTERECTOMY HAVE YOU EVER HAD AN STD?NO HIV / HEP-C SCREENING HIV TEST OFFERED TO PATIENT:YES DATE OFFERED:08/22/2019 TEST ACCEPTED:NO HEP-C TEST OFFERED TO PATIENT:YES DATE OFFERED:08/22/2019 REASON:PATIENT DECLINED TEST ACCEPTED:NO REASON:PATIENT DECLINED BROCHURE PROVIDED TO PATIENTYES MU-ISM [id number] [employer] LANGUAGE LANGUAGES SPOKEN:IVORIAN EDUCATION LEVEL OF EDUCATION:COLLEGE LEARNING BARRIERS / SPECIAL NEEDS CHANGE FROM LAST VISIT?NO 03/25/2020 BARRIERS TO LEARNING?NO HEARING IMPAIRED?NO VISION IMPAIRED?YES COGNITIVELY IMPAIRED?NO :CORRECTIVE LENSES READINESS TO LEARN?YES LEARNING PREFERENCES?NO LEARNING CAPABILITIES PRESENT?YES EMOTIONAL BARRIERS?NO SPECIAL DEVICES?YES :CANE FIELD RECRUITER NEEDED?NO DOMESTIC VIOLENCE DO YOU FEEL SAFE IN YOUR ENVIRONMENT?YES OCCUPATION: RETIRED. DIET: REGULAR. EXERCISE: NO REGULAR EXERCISE. MARITAL STATUS: . OTHERS AT HOME: DAUGHTERS AMD GOD- CHILDREN. NEW PATIENT PAIN DIARY TODAY'S VISIT NOTES 03/13/2020, PATIENT DESCRIBES PAIN : ACHING, HAVE IT ALL THE TIME, FROM 0-10, WHAT LEVEL IS YOUR PAIN TODAY? 8. PAIN CLINIC PFS, CLERGY, PUBLIC HEALTH REFERRALS PFS REFERRAL NEEDED?NO CLERGY REFERRAL NEEDED?NO PUBLIC HEALTH REFERRAL NEEDED?NO WAS THE PROVIDER NOTIFIED OF ANY PERTINENT INFO?YES HAS THE PATIENT BEEN EDUCATED REGARDING HIS/HER PLAN OF CARE?YES HAS THE PATIENT BEEN EDUCATED REGARDING PAIN, THE RISK FOR PAIN, THE IMPORTANCE OF EFFECTIVE PAIN MANAGEMENT, AND THE PAIN ASSESSMENT PROCESS?YES HOUSING: OWNS HOME. ADVANCE DIRECTIVE ADVANCE DIRECTIVE DISCUSSED WITH PATIENT:YES HCP- DAUGHTER- RUTH KU- HOSPITALIZATION/MAJOR DIAGNOSTIC PROCEDURE PNEUMONIA, HYPOXIA 12/2018,12/2018, 01/2019 [facility] REVIEW OF SYSTEMS CONSTITUTIONAL: ANY RECENT FEVER OR ILLNESS NO . CHILLS NO . GASTROENTEROLOGY: BOWEL INCONTINENCE NO . ANY NEW CHANGE IN BOWEL CONTROL? NO . ABDOMINAL PAIN NO . CONSTIPATION NO . GENITOURINARY: ANY NEW CHANGE IN BLADDER CONTROL? NO . IS THERE A CHANCE YOU COULD BE ? NO . URINARY INCONTINENCE NO . CARDIOLOGY: CHEST PRESSURE NO . CHEST PAIN NO . RESPIRATORY: COUGH NO . SHORTNESS OF BREATH NO . ASSESSMENTS LUMBAR SPINAL STENOSIS - M48.061 (PRIMARY) INTERVERTEBRAL DISC DISORDERS WITH RADICULOPATHY, LUMBAR REGION - M51.16 TREATMENT LUMBAR SPINAL STENOSIS NOTES: SCHEDULE IN CLINIC APPOINTMENT TO EVALUATE AND DEVELOP A TREATMENT PLAN. TOTAL TIME SPENT DURING TELEPHONE VISIT WAS APPROXIMATELY 12 MINUTES. OTHERS CLINICAL NOTES: PRE SCREENING CALL DONE 04/10/20 EM. DISPOSITION & COMMUNICATION FOLLOW UP 4-6 WEEKS IN CLINIC VISIT (REASON: LOW BACK PAIN/LUMBAR RADICULOPATHY) ELECTRONICALLY SIGNED BY REJI BERGER ON 04/11/2020 AT 03:05 PM EDT DISCLAIMER : THIS IS A VISIT SUMMARY EXTRACTED FROM THE [employer] CHART. IT IS NOT A COPY OF THE [employer] PROGRESS NOTE. MADHAVI
== END ==
LOC: M PAIN 10:45
PROVIDERS: ATTEND Nurse Practitioner Family
DX: M48.061 Spinal stenosis, lumbar region without neurogenic claudication (principal); M51.16 Intervertebral disc disorders with radiculopathy, lumbar region

== ENCOUNTER 2020-04-17 18:53 | Inpatient (IN) | payer OTHER, MEDICARE ==
[~2020-04-17] VITALS: Ht 157.5 cm; Wt 79.9 kg
[~2020-04-17 18:53] MED LIST changes: +GABA-282 PO; -GABA-843 PO; +TIZA1TAB12 PO; -TIZA2TAB6 PO
[2020-04-17] MEDS ORDERED: COMBIVENT RESPIMAT 100-20MCG INHALER 4GM INH ONE (19:30)
[2020-04-17 19:37] LABS: BASO # 0.1 10^3/uL (0.0-0.2); BASO % 0.7 % (0.0-1.0); EOS # 0.6 10^3/uL (0.0-0.5); EOS % 4.9 % (0.0-3.0); HEMATOCRIT 39.5 % (36.0-47.0); HEMOGLOBIN 12.6 g/dl (12.0-15.5); LYMPH # 2.2 10^3/uL (1.5-5.0); LYMPH % 18.4 % (24.0-44.0); MEAN CORPUSCULAR HEMOGLOBIN 26.1 pg (27.0-33.0); MEAN CORPUSCULAR HGB CONC 31.9 g/dl (32.0-36.5); MEAN CORPUSCULAR VOLUME 81.8 fl (80.0-96.0); MONO # 0.9 10^3/uL (0.0-0.8); NEUTROPHILS # 8.3 10^3/uL (1.5-8.5); NEUTROPHILS % 68.4 % (36.0-66.0); PLATELET COUNT, AUTOMATED 376 10^3/uL (150-450); RED BLOOD COUNT 4.83 10^6/uL (4.00-5.40); WHITE BLOOD COUNT 12.2 10^3/uL (4.0-10.0)
[2020-04-17] MEDS ORDERED: FUROSEMIDE 40MG/4ML VIAL (J1940) IV ONE (20:00)
--- NOTE | 2020-04-17 20:02 | REPVR ---
PROCEDURE INFORMATION: Exam: US Duplex Lower Extremity Veins, Bilateral Exam date and time: 04/17/2020 7:32 PM Age: 70 years old Clinical indication: Pain; Leg, lower; Bilateral; Additional info: Bilat leg edema R/O dvt TECHNIQUE: Imaging protocol: Real-time duplex ultrasound of the extremities with 2-D harrison scale, color Doppler flow and spectral waveform analysis with image documentation. Complete exam focused on the bilateral lower extremity veins. COMPARISON: US Duplex, Ext LOWER veins, bilat 11/01/2019 1:27 PM FINDINGS: Right deep veins: Unremarkable. The common femoral, femoral, proximal profunda femoral and popliteal veins are patent without thrombus. Normal Doppler waveforms. Normal compressibility and/or augmentation response. Right superficial veins: Saphenofemoral junction is patent without thrombus. Left deep veins: Unremarkable. The common femoral, femoral, proximal profunda femoral and popliteal veins are patent without thrombus. Normal Doppler waveforms. Normal compressibility and/or augmentation response. Left superficial veins: Saphenofemoral junction is patent without thrombus. Soft tissues: Unremarkable. IMPRESSION: No DVT of bilateral lower extremity veins. Electronically signed by: Quinn Woodard On 04/17/2020 20:02:16 PM
[2020-04-17 20:12] LABS: ABG BASE EXCESS -3.3 (-2.0-2.0); ABG HCO3 19.3 MEQ/L (22.0-26.0); ABG O2 SATURATION 92.1 % (95.0-99.0); ABG PARTIAL PRESSURE O2 60.8 mmHg (75.0-100.0); ABG STANDARD HCO3 21.6 MEQ/L (22.0-26.0); ABG TOTAL CO2 20.2 MEQ/L (23.0-31.0); ABG pH (ARTERIAL) 7.457 UNITS (7.350-7.450)
[2020-04-17 20:13] LABS: ALBUMIN 3.3 GM/DL (3.2-5.2); ALT/SGPT 28 U/L (12-78); BILIRUBIN,DIRECT 0.2 MG/DL (0.0-0.2); BILIRUBIN,TOTAL 0.7 MG/DL (0.2-1.0); BLOOD UREA NITROGEN 19 MG/DL (7-18); CARBON DIOXIDE LEVEL 23 MEQ/L (21-32); CHLORIDE LEVEL 111 MEQ/L (98-107); CK-MB VALUE MASS 3.7 NG/ML (<3.6); CPK CREATINE PHOSPHOKINASE 139 U/L (26-192); CREATININE FOR GFR 1.08 MG/DL (0.55-1.30); GLOMERULAR FILTRATION RATE 53.4 (>39); GLUCOSE, FASTING 106 MG/DL (70-100); MB/CK RELATIVE INDEX 2.66 (< OR =4); NT-PRO BNP 2129 PG/ML (<125); POTASSIUM SERUM 4.2 MEQ/L (3.5-5.1); SODIUM LEVEL 144 MEQ/L (136-145); TOTAL PROTEIN 7.3 GM/DL (6.4-8.2); TROPONIN I < 0.02 NG/ML (< 0.10)
[2020-04-17] MEDS ORDERED: GLUCAGON INJ 1MG VIAL SC PRN (21:00)
[2020-04-17] MEDS ORDERED: ALBUTEROL SULFATE 2.5 MG/0.5 ML INH NEB SOLN INH PRN (21:00)
[2020-04-17] MEDS ORDERED: GLUCOSE 4GM CHEW TABLET PO PRN (21:00)
[2020-04-17] MEDS ORDERED: ACETAMINOPHEN TAB 650MG DOSE (2X325MG) PO PRN (21:00)
[2020-04-17] MEDS ORDERED: DEXTROSE 50% 50 ML SYRINGE IV PRN (21:00)
[2020-04-17] MEDS ORDERED: ASPI81TA86 PO (21:03)
[2020-04-17] MEDS ORDERED: OMEP-218 PO (21:03)
[2020-04-17] MEDS ORDERED: EPIP0.3I2 IM (21:03)
[2020-04-17] MEDS ORDERED: PRESCAP PO (21:03)
[2020-04-17] MEDS ORDERED: CETI-24 PO (21:03)
[2020-04-17] MEDS ORDERED: TIZA4TAB4 PO (21:04)
--- NOTE | 2020-04-17 21:14 | HPEPDOC ---
General Date of Admission Apr 17, 2020 at 20:55 Date of Service: Apr 17, 2020 Chief Complaint The patient is a 70-year-old female Who presented to the ER with progressive shortness of breath over the last 3 days History of Present Illness Patient is a 70-year-old female with a PMHx of CAD s/p stent (2013), CHF?, HTN, DLP, NIDDM2, Interstitial Lung disease, Chronic hypoxia (on 4L NC), ABRAHAM on CPAP, Migraines, Depression who presented to the emergency room with progressive shortness of breath. Patient reports that she notes worsening of her shortness of breath with exertion. Has noted she has an associated cough without production has not expense any fevers, chills. Reports that her laboratories have become swollen. Patient does report some chest tightness across her lower chest that has occurred intermittently over the last several weeks. She notes that this is very mild at a 4-5/10, described as pressure-like and continuous. No alleviating or elevating factors. Currently, patient reports some nausea. Denies any vomiting, abdominal pain, constipation, diarrhea, or urinary discomfort. Patient does take diuretics at home and reports that she is compliant. Home Medications Scheduled Aspirin (Aspir 81) 81 Mg Tablet.dr, 81 MG PO DAILY, (Reported) Atorvastatin Calcium (Atorvastatin Calcium) 40 Mg Tablet, 40 MG PO DAILY, (Reported) Azithromycin (Azithromycin) 250 Mg Tablet, 250 MG PO DAILY, (Reported) Bupropion HCl (Bupropion HCl Sr) 150 Mg Tab.er.12h, 150 MG PO BID, (Reported) Cetirizine HCl (Cetirizine HCl) 10 Mg Tablet, 10 MG PO DAILY, (Reported) Furosemide (Lasix) 20 Mg Tablet, 20 MG PO DAILY, (Reported) Gabapentin (Gabapentin) 300 Mg Capsule, 300 MG PO TID, (Reported) Lisinopril (Lisinopril) 2.5 Mg Tablet, 2.5 MG PO DAILY, (Reported) Metformin HCl (Metformin HCl) 500 Mg Tablet, 500 MG PO BID, (Reported) Omeprazole (Omeprazole) 20 Mg Capsule.dr, 20 MG PO DAILY, (Reported) Propranolol HCl (Propranolol HCl ER) 60 Mg Cap.sa.24h, 60 MG PO DAILY, (Reported) Vit A/Vit C/Vit E/Zinc/Copper (Preservision Areds Softgel) 1 Each Capsule, 1 CAP PO DAILY, (Reported) Scheduled PRN Albuterol Sulfate (Proair Hfa) 8.5 Gm Hfa.aer.ad, 2 PUFFS INH QID PRN for SOB/WHEEZING, (Reported) Epinephrine (Epipen 2-Hank) 0.3 Mg/0.3 Ml Auto.injct, 0.3 MG IM ONCE PRN for ANAPHYLAXIS, (Reported) Tizanidine HCl (Tizanidine HCl) 4 Mg Tablet, 4 MG PO TID PRN for MUSCLE SPASMS, (Reported) Allergies Coded Allergies: bee venom protein (honey bee) (Verified Allergy, Severe, ANAPHYLAXIS, 04/17/20) meloxicam (Verified Allergy, Severe, SOB, 04/17/20) Past Medical History Medical History CAD s/p stent (2013), CHF?, HTN, DLP, NIDDM2, Interstitial Lung disease, Chronic hypoxia (on 4L NC), ABRAHAM on CPAP, Migraines, Depression Surgical History Appendectomy 1966 1979 and 1985 Bilateral foot surgery 1987 Partial hysterectomy 1987 Right rotator cuff tear repair 2013 Heart stents, 2013 Lung biopsy 2018 Bilaterally Lasik eye surgery 2017 Family History - Father with a history of congestive heart failure - Mother with a history of Alzheimers Social History - Denies the use of alcohol or illicit drugs; patient reports that she has a 47 year history of smoking, at 1-2 PPD - Denies recent travel or sick contacts - Lives with daughter Review of Systems Other systems 10 point review of systems complete, all negative otherwise stated in HPI Vital Signs - Vitals: BP 150/70, HR 70, RR 22, Sat 91%NC4L, Temp 97.8F - General: Lying in bed, Speaking in full sentences, AAOx3 - HEENT: NC, AT, PERRLA - CVS: RRR, +S1S2 - Lungs: Fair air entry bilaterally, No wheezing / rhonchi, bilateral inspiratory crackles can be appreciated at bases - Abdomen: Soft, Non-distended, Non-tender - Extremities: Trace to 1+ pitting edema bilateral lower extremities, No calf tenderness - Neuro: No focal motor or sensory deficit - Skin: No visible rashes Laboratory Data Labs 24H Laboratory Tests 2 04/17/20 19:25: Immature Granulocyte % (Auto) 0.6, Neutrophils (%) (Auto) 68.4H, Lymphocytes (%) (Auto) 18.4L, Monocytes (%) (Auto) 7.0H, Eosinophils (%) (Auto) 4.9H, Basophils (%) (Auto) 0.7, Neutrophils # (Auto) 8.3, Lymphocytes # (Auto) 2.2, Monocytes # (Auto) 0.9H, Eosinophils # (Auto) 0.6H, Basophils # (Auto) 0.1, Nucleated Red Blood Cells % (auto) 0.0, Anion Gap 10, Glomerular Filtration Rate 53.4, Calcium Level 9.0, Total Bilirubin 0.7, Direct Bilirubin 0.2, Aspartate Amino Transf (AST/SGOT) 19, Alanine Aminotransferase (ALT/SGPT) 28, Alkaline Phosphatase 126H, Total Creatine Kinase 139, Creatine Kinase MB 3.7H, Creatine Kinase MB Relative Index 2.66, Troponin I < 0.02, ZM-Fnv-Z-Type Natriuretic Peptide 2129H, Total Protein 7.3, Albumin 3.3, Albumin/Globulin Ratio 0.8L, Thyroid Stimulating Hormone (TSH) 6.590H 04/17/20 19:53: Blood Gas Bicarbonate Standard 21.6L, Arterial Blood pH 7.457H, Arterial Blood Partial Pressure CO2 28.0L, Arterial Blood Partial Pressure O2 60.8L, Arterial Blood Total CO2 20.2L, Arterial Blood HCO3 19.3L, Arterial Blood Base Excess - 3.3L, Arterial Blood Oxygen Saturation 92.1L CBC/BMP Laboratory Tests 04/17/20 19:25 Microbiology Microbiology 04/17/20 Respiratory Virus Panel (PCR) ([facility]) - Final, Complete Plan / VTE VTE Prophylaxis Ordered?: Yes Plan Plan Shortness of breath - likely 2/2 decompensated heart failure - Patient is presented to the emergency room with complaints that she was of breath, progressive over the last 3 days - Physical with evidence of fluid overload - BNP noted to be elevated - CXR 04/17: Consistent with CHF pattern - Patient was given a dose of furosemide emergency room - Will get ECHO - Will c/w daily weights, strict ins/outs, fluid restriction - Will c/w Furosemide IV CAD s/p stent (2013) - Reports like chest pain or lower chest - EKG reviewed and is consistent with prior - First set of troponin negative; will continue to trend - c/w ASA and Atorvastatin HTN - Blood pressure moderately elevated - Will c/w Lisinopril and Propranolol withholding parameters DLP - c/w ASA and Atorvastatin NIDDM2 - Will start insulin sliding scale Interstitial Lung disease - Chronic hypoxia (on 4L NC) - Currently patient is on baseline level of oxygen - Lungs do not appear to reveal any evidence of wheezing - Continue with inhaled therapy as ordered ABRAHAM on CPAP - Mail. Ill home CPAP use while inpatient Migraines - c/w Propranolol for prophylaxis Depression - c/w Bupropion GERD - c/w Omeprazole DVT prophylaxis - Will start Heparin ANA KEYS MD Apr 17, 2020 21:14
[2020-04-17] MEDS ORDERED: tiZANidine 4 MG TAB PO PRN (21:15)
[2020-04-17] MEDS: HumaLOG INSULIN (NovoLOG) PER UNIT SC SCH (23:29)
[2020-04-17] MEDS: GABAPENTIN 300 MG CAP PO SCH (23:36)
[2020-04-18] VITALS: BP 176/80
[2020-04-18 01:01] LABS: CK-MB VALUE MASS 3.3 NG/ML (<3.6); CPK CREATINE PHOSPHOKINASE 141 U/L (26-192); MB/CK RELATIVE INDEX 2.34 (< OR =4); TROPONIN I < 0.02 NG/ML (< 0.10)
[2020-04-18] MEDS: buPROPion **SR TABLET** (ZYBAN) 150MG PO SCH ×3 (02:21→21:21)
[2020-04-18 04:00] VITALS: BP 141/80
[2020-04-18 05:25] LABS: BASO # 0.1 10^3/uL (0.0-0.2); BASO % 0.8 % (0.0-1.0); EOS # 0.5 10^3/uL (0.0-0.5); EOS % 4.6 % (0.0-3.0); HEMATOCRIT 39.8 % (36.0-47.0); HEMOGLOBIN 13.2 g/dl (12.0-15.5); LYMPH # 1.8 10^3/uL (1.5-5.0); LYMPH % 18.4 % (24.0-44.0); MEAN CORPUSCULAR HEMOGLOBIN 26.9 pg (27.0-33.0); MEAN CORPUSCULAR HGB CONC 33.2 g/dl (32.0-36.5); MEAN CORPUSCULAR VOLUME 81.2 fl (80.0-96.0); MONO # 0.6 10^3/uL (0.0-0.8); MONO % 6.3 % (0.0-5.0); NEUTROPHILS # 6.9 10^3/uL (1.5-8.5); NEUTROPHILS % 69.6 % (36.0-66.0); PLATELET COUNT, AUTOMATED 354 10^3/uL (150-450); WHITE BLOOD COUNT 9.9 10^3/uL (4.0-10.0)
[2020-04-18 05:49] LABS: CALCIUM LEVEL 8.7 MG/DL (8.8-10.2); CREATININE FOR GFR 1.21 MG/DL (0.55-1.30); GLOMERULAR FILTRATION RATE 46.8 (>39); MAGNESIUM LEVEL 1.5 MG/DL (1.8-2.4); POTASSIUM SERUM 3.8 MEQ/L (3.5-5.1)
[2020-04-18 05:53] LABS: CPK CREATINE PHOSPHOKINASE 119 U/L (26-192); MB/CK RELATIVE INDEX 2.52 (< OR =4); TROPONIN I < 0.02 NG/ML (< 0.10)
[2020-04-18] MEDS: HEPARIN SOD (PORCINE) 5000UNITS/ML 1ML VIAL/SYRINGE SC SCH ×3 (06:27→21:21)
--- NOTE | 2020-04-18 06:27 | REP ---
Clinical: Cough and dyspnea. Portable view of the chest. Comparison: 09/16/2019. Findings: Cardiac silhouette is upper limits of normal for portable technique. Lung hidalgo demonstrate indistinct central pulmonary vasculature with increased interstitial markings suggesting CHF/interstitial edema. No focal consolidation. No obvious effusion. No pneumothorax. Skeletal structures intact. Impression: Findings compatible with CHF/pulmonary vascular congestion. Electronically Signed by Jaren Rizzo MD 04/18/2020 06:19 A
[2020-04-18] MEDS ORDERED: MAG SULF 1GM/100ML (MAG RUN) 1 GM in IV 1 EA IV ONE (07:00)
[2020-04-18] MEDS: ALBUTEROL SULFATE 2.5 MG/0.5 ML INH NEB SOLN INH SCH ×4 (07:08→20:13)
--- NOTE | 2020-04-18 07:28 | ECGEPIP ---
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
[2020-04-18 08:00] VITALS: BP 140/88
[2020-04-18] MEDS: AZITHROMYCIN 250MG TABLET PO SCH (08:28)
[2020-04-18] MEDS: CETIRIZINE (ZyrTEC) 10 MG TAB PO SCH (08:28)
[2020-04-18] MEDS: ATORVASTATIN 20 MG TAB PO SCH (08:28)
[2020-04-18] MEDS: OMEPRAZOLE 20 MG CAP PO SCH (08:28)
[2020-04-18] MEDS: ASPIRIN 81 MG ENTERIC TAB PO SCH (08:28)
[2020-04-18] MEDS: GABAPENTIN 300 MG CAP PO SCH ×3 (08:28→21:21)
[2020-04-18] MEDS: LISINOPRIL *2.5 MG* TAB PO SCH (08:29)
[2020-04-18] MEDS: HumaLOG INSULIN (NovoLOG) PER UNIT SC SCH ×4 (08:30→21:00)
[2020-04-18] MEDS: PROPRANOLOL 60 MG LA CAP PO SCH (08:31)
[2020-04-18] MEDS ORDERED: FUROSEMIDE 40MG/4ML VIAL (J1940) IV SCH (09:00)
[2020-04-18] MEDS ORDERED: FUROSEMIDE 20MG/2ML VIAL (J1940) IV SCH (09:00)
--- NOTE | 2020-04-18 10:08 | REP ---
Clinical: Shortness of breath . Comparison: 04/17/2020 . Technique: PA and lateral. Findings: The mediastinum and cardiac silhouette are stable. Lung hidalgo demonstrate a fine diffuse interstitial pattern with mild cephalization suggesting interstitial edema versus underlying pneumonitis/interstitial lung disease. No effusion. No pneumothorax. Skeletal structures are stable. Impression: A diffuse fine interstitial pattern along with cephalization is suggested. Differential diagnosis includes interstitial edema as well as pneumonitis and chronic interstitial disease. Electronically Signed by Jaren Rizzo MD 04/18/2020 10:00 A
[2020-04-18 12:00] VITALS: BP 142/78
--- NOTE | 2020-04-18 12:27 | IPNPDOC ---
Text Note Date of Service The patient was seen on 04/18/20. NOTE Subjective: Patient is a 70-year-old female with a PMHx of CAD s/p stent (2013), CHF?, HTN, DLP, NIDDM2, Interstitial Lung disease, Chronic hypoxia (on 4L NC), ABRAHAM on CPAP, Migraines, Depression who presented to the emergency room with progressive shortness of breath. In the emergency room, patient had lab work imaging and physicals are consistent with fluid overload and patient was admitted to the hospitalist service for further evaluation and treatment. Patient was seen and examined at the bedside. Currently, patient reports that her breathing is doing better. Denies chest pain, palpitations or cough. Patient denies nausea, vomiting, abdominal pain, diarrhea, or urinary discomfort. Objective: Vitals (See below) General: Lying in bed, appears comfortable, AAOx3 HEENT: NC, AT CVS: RRR, +S1S2 Lungs: Fair air entry b/l, no significant crackles, no wheezing or rhonchi Abdomen: Soft, ND, NT Extremities: Trace pitting edema, - Calf tenderness Assessment and plan: Shortness of breath - likely 2/2 decompensated heart failure / right sided heart failure - Patient is presented to the ER with complaints that she was of breath, progressive over the last 3 days - Physical exam shows improvement of fluid overload - BNP noted to be elevated - CXR 04/17: Findings compatible with CHF/pulmonary vascular congestion. - CXR 04/18: A diffuse fine interstitial pattern along with cephalization is paez ggested. Differential diagnosis includes interstitial edema as well as pneumonitis and chronic interstitial disease. - s/p Furosemide in ER - ECHO pending - c/w daily weights, strict ins/outs, fluid restriction - Will give single dose of furosemide today and hold - c/w PT and OT; anticipate DC tomorrow CAD s/p stent (2013) - Reports like chest pain or lower chest - EKG reviewed and is consistent with prior - Troponin x 3 negative - c/w ASA and Atorvastatin HTN - Blood pressure moderately elevated - c/w Lisinopril and Propranolol withholding parameters DLP - c/w ASA and Atorvastatin NIDDM2 - c/w insulin sliding scale Interstitial Lung disease - Chronic hypoxia (on 4L NC) - Currently patient is on baseline level of oxygen - Lungs do not appear to reveal any evidence of wheezing - c/w inhaled therapy as ordered ABRAHAM on CPAP - May use home CPAP use while inpatient Migraines - c/w Propranolol for prophylaxis - Will start Excedrin PRN Depression - c/w Bupropion GERD - c/w Omeprazole DVT prophylaxis - c/w Heparin VS,Fishbone, I+O VS, Fishbone, I+O Laboratory Tests 04/17/20 19:25 04/18/20 05:08 Vital Signs Date Time Temp Pulse Resp B/P (MAP) Pulse Ox O2 Delivery O2 Flow Rate FiO2 04/18/20 11:25 6.0 04/18/20 08:31 74 141/80 04/18/20 08:00 97.2 22 89 Nasal Cannula I&O- Last 24 Hours up to 6 AM 04/18/20 05:59 Intake Total 300 ml Output Total 0 ml Balance 300 ml ANA KEYS MD Apr 18, 2020 12:27
[2020-04-18] MEDS: EXCEDRIN MIGRAINE TABLET PO PRN (14:17)
[2020-04-18 16:00] VITALS: BP 115/73
[2020-04-19] VITALS: BP 113/59
[2020-04-19 05:08] LABS: BASO # 0.1 10^3/uL (0.0-0.2); BASO % 0.6 % (0.0-1.0); EOS # 0.7 10^3/uL (0.0-0.5); HEMATOCRIT 39.8 % (36.0-47.0); HEMOGLOBIN 12.9 g/dl (12.0-15.5); LYMPH # 1.9 10^3/uL (1.5-5.0); LYMPH % 18.7 % (24.0-44.0); MEAN CORPUSCULAR HEMOGLOBIN 26.3 pg (27.0-33.0); MEAN CORPUSCULAR HGB CONC 32.4 g/dl (32.0-36.5); MEAN CORPUSCULAR VOLUME 81.2 fl (80.0-96.0); MONO # 0.7 10^3/uL (0.0-0.8); MONO % 7.4 % (0.0-5.0); NEUTROPHILS # 6.5 10^3/uL (1.5-8.5); NEUTROPHILS % 65.9 % (36.0-66.0); PLATELET COUNT, AUTOMATED 343 10^3/uL (150-450); WHITE BLOOD COUNT 9.9 10^3/uL (4.0-10.0)
[2020-04-19 05:34] LABS: CALCIUM LEVEL 8.8 MG/DL (8.8-10.2); CREATININE FOR GFR 1.06 MG/DL (0.55-1.30); GLOMERULAR FILTRATION RATE 54.6 (>39); POTASSIUM SERUM 3.9 MEQ/L (3.5-5.1)
[2020-04-19] MEDS: HEPARIN SOD (PORCINE) 5000UNITS/ML 1ML VIAL/SYRINGE SC SCH ×3 (06:33→21:58)
[2020-04-19] MEDS: ALBUTEROL SULFATE 2.5 MG/0.5 ML INH NEB SOLN INH SCH ×4 (07:59→19:56)
[2020-04-19 08:00] VITALS: BP 127/70
[2020-04-19] MEDS: HumaLOG INSULIN (NovoLOG) PER UNIT SC SCH ×4 (08:33→21:00)
[2020-04-19] MEDS: buPROPion **SR TABLET** (ZYBAN) 150MG PO SCH ×2 (08:34→21:57)
[2020-04-19] MEDS: CETIRIZINE (ZyrTEC) 10 MG TAB PO SCH (08:34)
[2020-04-19] MEDS: ATORVASTATIN 20 MG TAB PO SCH (08:34)
[2020-04-19] MEDS: ASPIRIN 81 MG ENTERIC TAB PO SCH (08:34)
[2020-04-19] MEDS: PROPRANOLOL 60 MG LA CAP PO SCH (08:34)
[2020-04-19] MEDS: AZITHROMYCIN 250MG TABLET PO SCH (08:34)
[2020-04-19] MEDS: GABAPENTIN 300 MG CAP PO SCH ×3 (08:35→21:57)
[2020-04-19] MEDS: LISINOPRIL *2.5 MG* TAB PO SCH (08:35)
[2020-04-19] MEDS: OMEPRAZOLE 20 MG CAP PO SCH (08:35)
--- NOTE | 2020-04-19 10:20 | IPNPDOC ---
Text Note Date of Service The patient was seen on 04/19/20. NOTE Subjective: Patient is a 70-year-old female with a PMHx of CAD s/p stent (2013), CHF?, HTN, DLP, NIDDM2, Interstitial Lung disease, Chronic hypoxia (on 4L NC), ABRAHAM on CPAP, Migraines, Depression who presented to the emergency room with progressive shortness of breath. In the emergency room, patient had lab work imaging and physicals are consistent with fluid overload and patient was admitted to the hospitalist service for further evaluation and treatment. Patient was seen and examined at the bedside. From the patient reports that her breathing is doing better from the point arrival. However, it is not back to her baseline.. She denies any chest pain or significant cough syrup or shortness of breath with exertion. Denies any nausea, vomiting, abdominal pain, constipation, or urinary discomfort. Objective: Vitals (See below) General: Lying in bed, appears comfortable, AAOx3 HEENT: NC, AT CVS: RRR, +S1S2 Lungs: Fair air entry b/l, auscultation there does not appear to be any significant crackles, wheezing or rhonchi Abdomen: Soft, nondistended and nontender Extremities: , - Calf tenderness Assessment and plan: Shortness of breath - likely 2/2 decompensated heart failure / right sided heart failure, possibly 2/2 exacerbation of interstitial lung disease - Patient presented to ER with complaints that she was of breath, progressive over the last 3 days - Physical without any signs of significant volume overload - BNP noted to be elevated - CXR 04/17: Findings compatible with CHF/pulmonary vascular congestion. - CXR 04/18: A diffuse fine interstitial pattern along with cephalization is suggested. Differential diagnosis includes interstitial edema as well as pneumonitis and chronic interstitial disease. - ECHO complete; report pending - c/w daily weights, strict ins/outs, fluid restriction - Will start prednisone PO - c/w inhaled therapy as ordered - c/w PT and OT CAD s/p stent (2013) - Reports like chest pain or lower chest - EKG reviewed and is consistent with prior - Troponin x 3 negative - c/w ASA and Atorvastatin HTN - Blood pressure moderately elevated - c/w Lisinopril and Propranolol withholding parameters DLP - c/w ASA and Atorvastatin NIDDM2 - c/w insulin sliding scale Interstitial Lung disease - Chronic hypoxia (on 4L NC) - Lungs do not appear to reveal any evidence of wheezing - c/w inhaled therapy as ordered ABRAHAM on CPAP - May use home CPAP use while inpatient Migraines - c/w Propranolol for prophylaxis - c/w Excedrin PRN Depression - c/w Bupropion GERD - c/w Omeprazole DVT prophylaxis - c/w Heparin Disposition: - Anticipate DC tomorrow VS,Fishbone, I+O VS, Fishbone, I+O Laboratory Tests 04/19/20 04:52 Vital Signs Date Time Temp Pulse Resp B/P (MAP) Pulse Ox O2 Delivery O2 Flow Rate FiO2 04/19/20 08:34 64 127/70 04/19/20 08:00 97.7 20 92 Nasal Cannula 6.0 I&O- Last 24 Hours up to 6 AM 04/19/20 06:00 Intake Total 900 ml Output Total 2175 ml Balance -1275 ml ANA KEYS MD Apr 19, 2020 10:20
[2020-04-19 10:53] VITALS: BP 136/64
[2020-04-19] MEDS ORDERED: predniSONE 20 MG TAB PO ONE (11:00)
[2020-04-19] MEDS ORDERED: FUROSEMIDE 40MG/4ML VIAL (J1940) IV ONE (11:00)
[2020-04-19] MEDS: BACTRIM 160MG/800MG DS TAB PO SCH ×2 (11:55→21:57)
[2020-04-19 14:00] VITALS: BP 131/65
--- NOTE | 2020-04-19 14:20 | ECHO ---
DATE OF PROCEDURE: 04/18/2020 DATE OF : 1950 AGE: 70 REFERRING PROVIDER: Dr. Margo Harp PATIENT LOCATION: Room 3224 REASON FOR STUDY: Congestive heart failure. 2-D MEASUREMENTS: IVS: 1.0 cm LV: 4.5 cm LVPW: 0.98 cm LA: 3.7 cm Aorta: 2.9 cm IVC: 2.0 cm DOPPLER MEASUREMENTS: Peak velocity across the aortic valve: 1.7 m/s Peak velocity across the LVOT: 0.75 m/s Mitral E: 0.49 Mitral A: 0.81 Ratio: 0.7 Maximum tricuspid valve velocity: 4.2 m/s 2-D COMMENTS: 1. Normal left ventricular size, wall thickness, and normal global left ventricular systolic function. The estimated left ventricular systolic ejection fraction is 60-65%. 2. Subjectively, the left atrium appeared to be mildly enlarged. The right atrium also appeared to be mildly enlarged. The right ventricle may be mildly enlarged, but was laxmi well. 3. The atrial septum appeared to be normal without evidence of defect or shunt. 4. Normal aortic root. 5. A small pericardial effusion was noted, no evidence of cardiac tamponade. 6. Mildly calcified aortic valve with normal leaflet excursion. Mildly calcified mitral annulus with normal anterior mitral leaflet motion. Normal tricuspid valve and pulmonic valve. The proximal pulmonary artery branches appeared to be normal in size in limited views. DOPPLER: It detects mild mitral regurgitation and moderately severe tricuspid regurgitation. The calculated pulmonary artery systolic pressure varies between 70-80 mmHg. Abnormal relaxation pattern was noted across the mitral valve leaflets as well as the mitral valve annulus consistent with features of grade 1 left ventricular diastolic dysfunction. IMPRESSION: 1. Normal global left ventricular systolic function. There are some features of left ventricular diastolic dysfunction manifested by abnormal relaxation. 2. Aortic valve sclerosis with trivial aortic stenosis, but no aortic regurgitation. 3. Mitral annulus calcification with mild mitral regurgitation. Subjectively, the left atrium appeared to be mildly enlarged. 4. Moderately severe tricuspid regurgitation with severe pulmonary hypertension. The right heart chambers appear to be mildly enlarged. The right ventricular systolic function seems to be normal. 5. A small pericardial effusion was noted, no evidence of cardiac tamponade. [facility]
[2020-04-19 22:00] VITALS: BP 129/70
[2020-04-20] MEDS: HEPARIN SOD (PORCINE) 5000UNITS/ML 1ML VIAL/SYRINGE SC SCH ×3 (05:35→21:06)
[2020-04-20 06:00] VITALS: BP 92/52
[2020-04-20 06:40] LABS: BASO # 0.1 10^3/uL (0.0-0.2); BASO % 0.5 % (0.0-1.0); EOS # 0.1 10^3/uL (0.0-0.5); EOS % 0.4 % (0.0-3.0); HEMATOCRIT 39.9 % (36.0-47.0); HEMOGLOBIN 12.7 g/dl (12.0-15.5); LYMPH # 1.8 10^3/uL (1.5-5.0); LYMPH % 13.9 % (24.0-44.0); MEAN CORPUSCULAR HGB CONC 31.8 g/dl (32.0-36.5); MEAN CORPUSCULAR VOLUME 81.6 fl (80.0-96.0); MONO # 0.9 10^3/uL (0.0-0.8); NEUTROPHILS # 9.9 10^3/uL (1.5-8.5); NEUTROPHILS % 77.9 % (36.0-66.0); PLATELET COUNT, AUTOMATED 401 10^3/uL (150-450); RED BLOOD COUNT 4.89 10^6/uL (4.00-5.40); WHITE BLOOD COUNT 12.6 10^3/uL (4.0-10.0)
[2020-04-20 07:03] LABS: CREATININE FOR GFR 1.07 MG/DL (0.55-1.30); MAGNESIUM LEVEL 2.3 MG/DL (1.8-2.4); POTASSIUM SERUM 3.9 MEQ/L (3.5-5.1)
[2020-04-20] MEDS: ALBUTEROL SULFATE 2.5 MG/0.5 ML INH NEB SOLN INH SCH ×4 (07:23→18:05)
[2020-04-20] MEDS: HumaLOG INSULIN (NovoLOG) PER UNIT SC SCH ×4 (07:30→20:19)
[2020-04-20] MEDS ORDERED: FUROSEMIDE 40MG/4ML VIAL (J1940) IV SCH (09:00)
[2020-04-20] MEDS: buPROPion **SR TABLET** (ZYBAN) 150MG PO SCH ×2 (09:22→21:06)
[2020-04-20] MEDS: OMEPRAZOLE 20 MG CAP PO SCH (09:22)
[2020-04-20] MEDS: ASPIRIN 81 MG ENTERIC TAB PO SCH (09:22)
[2020-04-20] MEDS: CETIRIZINE (ZyrTEC) 10 MG TAB PO SCH (09:22)
[2020-04-20] MEDS: AZITHROMYCIN 250MG TABLET PO SCH (09:23)
[2020-04-20] MEDS: BACTRIM 160MG/800MG DS TAB PO SCH ×2 (09:23→21:06)
[2020-04-20] MEDS: predniSONE 20 MG TAB PO SCH (09:23)
[2020-04-20] MEDS: GABAPENTIN 300 MG CAP PO SCH ×3 (09:24→21:06)
[2020-04-20] MEDS: ATORVASTATIN 20 MG TAB PO SCH (09:25)
[2020-04-20] MEDS: PROPRANOLOL 60 MG LA CAP PO SCH (09:30)
[2020-04-20] MEDS: LISINOPRIL *2.5 MG* TAB PO SCH (09:30)
--- NOTE | 2020-04-20 11:29 | REP ---
Portable chest x-ray: Single view. History: Shortness of breath and hypoxia. Comparison study: April 18, 2020. Findings: The lungs are symmetrically aerated and clear. The pleural angles are sharp. Heart is not enlarged. Pulmonary vasculature is not increased. Interstitial markings remain slightly prominent unchanged from the comparison study. Impression: No acute infiltrate. Prominent interstitial markings again noted may reflect fibrosis. Electronically Signed by Uli Pro MD 04/20/2020 11:20 A
[2020-04-20] MEDS ORDERED: FUROSEMIDE 40MG/4ML VIAL (J1940) IV ONE (11:30)
--- NOTE | 2020-04-20 11:34 | IPNPDOC ---
Text Note Date of Service The patient was seen on 04/20/20. NOTE Subjective: Patient is a 70-year-old female with a PMHx of CAD s/p stent (2013), CHF?, HTN, DLP, NIDDM2, Interstitial Lung disease, Chronic hypoxia (on 4L NC), ABRAHAM on CPAP, Migraines, Depression who presented to the emergency room with progressive shortness of breath. In the emergency room, patient had lab work imaging and physicals are consistent with fluid overload and patient was admitted to the hospitalist service for further evaluation and treatment. Patient was seen and examined at the bedside. . Currently, patient reports that her breathing is not returned to her baseline. However, improved from arrival. Patient denies any chest pain or palpitations. Does not report any significant cough, but does report shortness of breath with exertion. She is on 6 L of nasal cannula oxygen greater than her baseline of 4 L., Currently patient denies nausea, abdominal pain, diarrhea, or urinary discomfort. Objective: Vitals (See below) General: Lying in bed, appears comfortable, AAOx3 HEENT: NC, AT CVS: RRR, +S1S2 Lungs: Air entry bilaterally, does appear to be fair, without evidence of rhonchi, crackles or wheezing Abdomen: Abdomen is soft, without any distention or tenderness Extremities: Trace / no pitting edema, - Calf tenderness Assessment and plan: Shortness of breath - likely 2/2 decompensated diastolic heart failure / right sided heart failure, possibly 2/2 exacerbation of interstitial lung disease - Patient presented to ER with complaints that she was of breath, progressive over the last 3 days - Physical without any signs of significant volume overload - BNP noted to be elevated - CXR 04/17: Findings compatible with CHF/pulmonary vascular congestion. - CXR 04/18: A diffuse fine interstitial pattern along with cephalization is suggested. Differential diagnosis includes interstitial edema as well as pneumonitis and chronic interstitial disease. - CXR 04/20: No acute infiltrate. Prominent interstitial markings again noted may reflect fibrosis. - ECHO 04/17: Evidence of right ventricular enlargement, tricuspid regurgitation, severe pulmonary hypertension and grade 1 diastolic dysfunction - Will give additional dose furosemide 40 IV - c/w daily weights, strict ins/outs, fluid restriction - c/w prednisone PO - c/w inhaled therapy as ordered - c/w PT and OT CAD s/p stent (2013) - Reports like chest pain or lower chest - EKG reviewed and is consistent with prior - Troponin x 3 negative - c/w ASA and Atorvastatin HTN - Blood pressure moderately elevated - c/w Lisinopril and Propranolol withholding parameters DLP - c/w ASA and Atorvastatin NIDDM2 - c/w insulin sliding scale Interstitial Lung disease - Chronic hypoxia (on 4L NC) - Lungs do not appear to reveal any evidence of wheezing - c/w inhaled therapy as ordered ABRAHAM on CPAP - May use home CPAP use while inpatient Migraines - c/w Propranolol for prophylaxis - c/w Excedrin PRN Depression - c/w Bupropion GERD - c/w Omeprazole DVT prophylaxis - c/w Heparin Disposition: - Will titrate oxygen down to her baseline 4 L in anticipation for discharge home VS,Aishae, I+O VS, Ajbone, I+O Laboratory Tests 04/20/20 05:44 Vital Signs Date Time Temp Pulse Resp B/P (MAP) Pulse Ox O2 Delivery O2 Flow Rate FiO2 04/20/20 09:30 72 04/20/20 09:30 122/68 04/20/20 07:24 Nasal Cannula 6.0 04/20/20 06:00 96.8 16 95 I&O- Last 24 Hours up to 6 AM 04/20/20 06:00 Intake Total 900 ml Output Total 1100 ml Balance -200 ml ANA KEYS MD Apr 20, 2020 11:34
[2020-04-20 14:00] VITALS: BP 121/65
[2020-04-20] MEDS: EXCEDRIN MIGRAINE TABLET PO PRN (17:00)
[2020-04-20 22:00] VITALS: BP 112/61
[2020-04-21] MEDS: HEPARIN SOD (PORCINE) 5000UNITS/ML 1ML VIAL/SYRINGE SC SCH ×3 (05:22→22:57)
[2020-04-21 06:00] VITALS: BP 107/69
[2020-04-21 06:31] LABS: BASO # 0.1 10^3/uL (0.0-0.2); BASO % 0.6 % (0.0-1.0); EOS # 0.2 10^3/uL (0.0-0.5); EOS % 1.5 % (0.0-3.0); HEMATOCRIT 39.5 % (36.0-47.0); HEMOGLOBIN 12.3 g/dl (12.0-15.5); LYMPH % 24.2 % (24.0-44.0); MEAN CORPUSCULAR HEMOGLOBIN 25.6 pg (27.0-33.0); MEAN CORPUSCULAR HGB CONC 31.1 g/dl (32.0-36.5); MEAN CORPUSCULAR VOLUME 82.1 fl (80.0-96.0); MONO # 0.9 10^3/uL (0.0-0.8); MONO % 7.5 % (0.0-5.0); NEUTROPHILS # 8.2 10^3/uL (1.5-8.5); NEUTROPHILS % 65.6 % (36.0-66.0); PLATELET COUNT, AUTOMATED 382 10^3/uL (150-450); RED BLOOD COUNT 4.81 10^6/uL (4.00-5.40); WHITE BLOOD COUNT 12.5 10^3/uL (4.0-10.0)
[2020-04-21] MEDS: ALBUTEROL SULFATE 2.5 MG/0.5 ML INH NEB SOLN INH SCH ×4 (07:07→20:23)
[2020-04-21 07:26] LABS: CALCIUM LEVEL 9.2 MG/DL (8.8-10.2); CREATININE FOR GFR 1.07 MG/DL (0.55-1.30); MAGNESIUM LEVEL 2.3 MG/DL (1.8-2.4); POTASSIUM SERUM 3.8 MEQ/L (3.5-5.1)
[2020-04-21] MEDS: HumaLOG INSULIN (NovoLOG) PER UNIT SC SCH ×4 (07:30→22:34)
[2020-04-21] MEDS: PROPRANOLOL 60 MG LA CAP PO SCH (09:00)
[2020-04-21] MEDS: buPROPion **SR TABLET** (ZYBAN) 150MG PO SCH ×2 (09:42→22:57)
[2020-04-21] MEDS: ATORVASTATIN 20 MG TAB PO SCH (09:42)
[2020-04-21] MEDS: GABAPENTIN 300 MG CAP PO SCH ×3 (09:45→22:57)
[2020-04-21] MEDS: OMEPRAZOLE 20 MG CAP PO SCH (09:45)
[2020-04-21] MEDS: CETIRIZINE (ZyrTEC) 10 MG TAB PO SCH (09:45)
[2020-04-21] MEDS: AZITHROMYCIN 250MG TABLET PO SCH (09:45)
[2020-04-21] MEDS: ASPIRIN 81 MG ENTERIC TAB PO SCH (09:46)
[2020-04-21] MEDS: predniSONE 20 MG TAB PO SCH (09:46)
[2020-04-21] MEDS: BACTRIM 160MG/800MG DS TAB PO SCH ×2 (09:46→22:57)
[2020-04-21] MEDS: LISINOPRIL *2.5 MG* TAB PO SCH (09:46)
[2020-04-21] MEDS ORDERED: BACT400T PO (10:08)
[2020-04-21] MEDS ORDERED: PRED10TA2 PO (10:08)
[2020-04-21] MEDS ORDERED: LASI20TA3 PO (10:08)
--- NOTE | 2020-04-21 12:46 | IPNPDOC ---
Text Note Date of Service The patient was seen on 04/21/20. NOTE Subjective: Patient is a 70-year-old female with a PMHx of CAD s/p stent (2013), CHF?, HTN, DLP, NIDDM2, Interstitial Lung disease, Chronic hypoxia (on 4L NC), ABRAHAM on CPAP, Migraines, Depression who presented to the emergency room with progressive shortness of breath. In the emergency room, patient had lab work imaging and physicals are consistent with fluid overload and patient was admitted to the hospitalist service for further evaluation and treatment. Patient was seen and examined at the bedside.. Currently, patient is sitting up at the edge of the bed. She has worked with physical therapy, but has not yet cleared. She denies any chest pain or palpitations. Reports that her breathing has improved, but still experiences worsening short of breath with exertion. Denies any nausea, vomiting, abdominal pain, diarrhea, or urinary discomfort. Objective: Vitals (See below) General: Lying in bed, speaking in full sentences, AAOx3 HEENT: NC, AT CVS: +S1S2 Lungs: There appears to be fair air entry bilaterally without evidence of rhonchi, crackles or wheezing Abdomen: Nondistended, without distention or tenderness Extremities: There is very trace pitting edema noted bilaterally, - Calf tenderness Assessment and plan: Shortness of breath - likely 2/2 decompensated diastolic heart failure / right sided heart failure, possibly 2/2 exacerbation of interstitial lung disease - Patient presented to ER with complaints that she was of breath, progressive over the last 3 days - Physical without any signs of significant volume overload - BNP noted to be elevated - CXR 04/17: Findings compatible with CHF/pulmonary vascular congestion. - CXR 04/18: A diffuse fine interstitial pattern along with cephalization is suggested. Differential diagnosis includes interstitial edema as well as pneum onitis and chronic interstitial disease. - CXR 04/20: No acute infiltrate. Prominent interstitial markings again noted may reflect fibrosis. - ECHO 04/17: Evidence of right ventricular enlargement, tricuspid regurgitation, severe pulmonary hypertension and grade 1 diastolic dysfunction - s/p Furosemide IV - c/w daily weights, strict ins/outs, fluid restriction - c/w prednisone PO - c/w inhaled therapy as ordered - c/w PT and OT; awaiting clearance - Added incentive spirometry CAD s/p stent (2013) - Reports like chest pain or lower chest - EKG reviewed and is consistent with prior - Troponin x 3 negative - c/w ASA and Atorvastatin HTN - Blood pressure moderately elevated - c/w Lisinopril and Propranolol withholding parameters DLP - c/w ASA and Atorvastatin NIDDM2 - c/w insulin sliding scale Interstitial Lung disease - Chronic hypoxia (on 4L NC); currently requiring 6 L; will continue to titrate down - Lungs do not appear to reveal any evidence of wheezing - c/w inhaled therapy as ordered ABRAHAM on CPAP - May use home CPAP use while inpatient Migraines - c/w Propranolol for prophylaxis - c/w Excedrin PRN Depression - c/w Bupropion GERD - c/w Omeprazole DVT prophylaxis - c/w Heparin Disposition: - Will titrate oxygen down to her baseline 4 L in anticipation for discharge home - c/w PT and OT VS,Fishbone, I+O VS, Fishbone, I+O Laboratory Tests 04/21/20 06:08 Vital Signs Date Time Temp Pulse Resp B/P (MAP) Pulse Ox O2 Delivery O2 Flow Rate FiO2 04/21/20 09:46 105/66 04/21/20 09:00 65 04/21/20 06:00 98.0 16 94 Nasal Cannula 6.0 I&O- Last 24 Hours up to 6 AM 04/21/20 06:00 Intake Total 1280 ml Output Total 1850 ml Balance -570 ml ANA KEYS MD Apr 21, 2020 12:46
[2020-04-21 14:00] VITALS: BP 103/64
[2020-04-21] MEDS ORDERED: MOM 30ML SUSPENSION UDC PO PRN (17:00)
[2020-04-21] MEDS ORDERED: MIRALAX *UNIT DOSE* 17GM PACKET PO PRN (17:00)
[2020-04-21] MEDS: SENOKOT S TAB PO PRN (17:09)
[2020-04-21 22:00] VITALS: BP 103/62
[2020-04-22] MEDS: SENOKOT S TAB PO PRN (05:32)
[2020-04-22] MEDS: HEPARIN SOD (PORCINE) 5000UNITS/ML 1ML VIAL/SYRINGE SC SCH ×3 (05:32→22:19)
[2020-04-22 06:00] VITALS: BP 106/57
[2020-04-22 06:11] LABS: BASO # 0.1 10^3/uL (0.0-0.2); BASO % 0.6 % (0.0-1.0); EOS # 0.2 10^3/uL (0.0-0.5); EOS % 1.5 % (0.0-3.0); HEMATOCRIT 37.4 % (36.0-47.0); HEMOGLOBIN 11.8 g/dl (12.0-15.5); LYMPH # 2.7 10^3/uL (1.5-5.0); LYMPH % 24.7 % (24.0-44.0); MEAN CORPUSCULAR HEMOGLOBIN 26.2 pg (27.0-33.0); MEAN CORPUSCULAR HGB CONC 31.6 g/dl (32.0-36.5); MEAN CORPUSCULAR VOLUME 83.1 fl (80.0-96.0); MONO # 0.9 10^3/uL (0.0-0.8); MONO % 8.7 % (0.0-5.0); NEUTROPHILS # 6.9 10^3/uL (1.5-8.5); PLATELET COUNT, AUTOMATED 350 10^3/uL (150-450); WHITE BLOOD COUNT 10.7 10^3/uL (4.0-10.0)
[2020-04-22 06:31] LABS: CALCIUM LEVEL 8.9 MG/DL (8.8-10.2); CREATININE FOR GFR 1.06 MG/DL (0.55-1.30); GLOMERULAR FILTRATION RATE 54.6 (>39); MAGNESIUM LEVEL 2.3 MG/DL (1.8-2.4)
[2020-04-22] MEDS: HumaLOG INSULIN (NovoLOG) PER UNIT SC SCH ×4 (07:30→21:00)
[2020-04-22] MEDS: ALBUTEROL SULFATE 2.5 MG/0.5 ML INH NEB SOLN INH SCH ×4 (07:51→18:06)
[2020-04-22] MEDS: OMEPRAZOLE 20 MG CAP PO SCH (09:50)
[2020-04-22] MEDS: ATORVASTATIN 20 MG TAB PO SCH (09:50)
[2020-04-22] MEDS: CETIRIZINE (ZyrTEC) 10 MG TAB PO SCH (09:50)
[2020-04-22] MEDS: GABAPENTIN 300 MG CAP PO SCH ×3 (09:50→22:19)
[2020-04-22] MEDS: predniSONE 20 MG TAB PO SCH (09:51)
[2020-04-22] MEDS: buPROPion **SR TABLET** (ZYBAN) 150MG PO SCH ×2 (09:51→22:19)
[2020-04-22] MEDS: BACTRIM 160MG/800MG DS TAB PO SCH ×2 (09:51→22:19)
[2020-04-22] MEDS: AZITHROMYCIN 250MG TABLET PO SCH (09:51)
[2020-04-22] MEDS: ASPIRIN 81 MG ENTERIC TAB PO SCH (09:51)
[2020-04-22] MEDS: PROPRANOLOL 60 MG LA CAP PO SCH (09:53)
[2020-04-22] MEDS: LISINOPRIL *2.5 MG* TAB PO SCH (09:53)
--- NOTE | 2020-04-22 11:20 | IPNPDOC ---
Date Seen The patient was seen on 04/22/20. Progress Note SUBJECTIVE: 70-year-old female with past medical history of coronary artery disease status post stent placement, congestive heart failure, interstitial lung disease on home oxygen, and obstructive sleep apnea, was admitted for CHF/ILD exacerbation. Patient has been treated with diuretics and steroids with good clinical improvement, not back to her baseline yet, continues to have dyspnea on exertion. She is also requiring increased oxygen from her baseline, up to 6 L at this time. She has no additional complaints, denies chest pain, nausea, vomiting, diarrhea or constipation. 10 point review of system is negative except for above PHYSICAL EXAMINATION: VITAL SIGNS: Please see below. GENERAL: No distress HEENT: Normocephalic, atraumatic, moist mucous membranes NECK: Supple CARDIOVASCULAR EXAMINATION: S1, S2, no murmurs RESPIRATORY EXAMINATION: Very poor air movement, diminished, mild wheezing appreciated ABDOMINAL EXAMINATION: Soft, nontender, nondistended, positive bowel sounds EXTREMITIES: Trace lower extremity edema SKIN: No rash NEUROLOGICAL EXAMINATION: Alert and oriented 3, no focal deficits PSYCHIATRIC EXAMINATION: Calm and cooperative LABORATORY DATA, IMAGING STUDIES, MICROBIOLOGY: Please see below. ASSESSMENT AND PLAN: 70-year-old female with past medical history of coronary artery disease status post stent placement, congestive heart failure, interstitial lung disease, home oxygen and obstructive sleep apnea is admitted for CHF/ILD exacerbation. PROBLEMS: 1. CHF exacerbation: Status post IV Lasix, TTE reviewed, severely elevated right-sided pressures, continue oral Lasix. 2. 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 Continue prophylactic Bactrim and Zithromax. 3. Coronary artery disease: Continue optimal medical management with aspirin, statin and beta pineda. DVT prophylaxis: Heparin subcutaneous GI prophylaxis: Home PPI VS, I&O, 24H, Fishbone Vital Signs/I&O Vital Signs Date Time Temp Pulse Resp B/P (MAP) Pulse Ox O2 Delivery O2 Flow Rate FiO2 04/22/20 09:53 74 122/69 04/22/20 06:00 97.0 19 95 Nasal Cannula 6.0 I&O- Last 24 Hours up to 6 AM 04/22/20 06:00 Intake Total 1200 ml Output Total 850 ml Balance 350 ml Laboratory Data 24H LABS Laboratory Tests 2 04/21/20 11:22: Bedside Glucose (Misc Panel) 85 04/21/20 16:33: Bedside Glucose (Misc Panel) 254H 04/21/20 20:20: Bedside Glucose (Misc Panel) 233H 04/22/20 05:27: Immature Granulocyte % (Auto) 0.5, Neutrophils (%) (Auto) 64.0, Lymphocytes (%) (Auto) 24.7, Monocytes (%) (Auto) 8.7H, Eosinophils (%) (Auto) 1.5, Basophils (%) (Auto) 0.6, Neutrophils # (Auto) 6.9, Lymphocytes # (Auto) 2.7, Monocytes # (Auto) 0.9H, Eosinophils # (Auto) 0.2, Basophils # (Auto) 0.1, Nucleated Red Blood Cells % (auto) 0.0, Anion Gap 5L, Glomerular Filtration Rate 54.6, Calcium Level 8.9, Magnesium Level 2.3 CBC/BMP Laboratory Tests 04/22/20 05:27 Microbiology Microbiology 04/17/20 Respiratory Virus Panel (PCR) ([facility]) - Final, Complete DINO ALCANTARA MD Apr 22, 2020 11:20
[2020-04-22] MEDS ORDERED: FUROSEMIDE 40 MG TAB PO ONE (11:30)
[2020-04-22 14:00] VITALS: BP 110/60
[2020-04-22 22:00] VITALS: BP 109/59
[2020-04-23 06:00] VITALS: BP 105/63
[2020-04-23] MEDS: HEPARIN SOD (PORCINE) 5000UNITS/ML 1ML VIAL/SYRINGE SC SCH (06:03)
[2020-04-23 06:14] LABS: BASO # 0.1 10^3/uL (0.0-0.2); BASO % 0.8 % (0.0-1.0); EOS # 0.1 10^3/uL (0.0-0.5); EOS % 0.8 % (0.0-3.0); HEMATOCRIT 39.5 % (36.0-47.0); HEMOGLOBIN 12.5 g/dl (12.0-15.5); LYMPH # 2.6 10^3/uL (1.5-5.0); MEAN CORPUSCULAR HEMOGLOBIN 26.1 pg (27.0-33.0); MEAN CORPUSCULAR HGB CONC 31.6 g/dl (32.0-36.5); MEAN CORPUSCULAR VOLUME 82.5 fl (80.0-96.0); MONO # 0.9 10^3/uL (0.0-0.8); MONO % 8.4 % (0.0-5.0); NEUTROPHILS # 6.8 10^3/uL (1.5-8.5); NEUTROPHILS % 64.6 % (36.0-66.0); PLATELET COUNT, AUTOMATED 365 10^3/uL (150-450); RED BLOOD COUNT 4.79 10^6/uL (4.00-5.40); WHITE BLOOD COUNT 10.6 10^3/uL (4.0-10.0)
[2020-04-23 06:41] LABS: CREATININE FOR GFR 1.07 MG/DL (0.55-1.30); MAGNESIUM LEVEL 2.3 MG/DL (1.8-2.4)
[2020-04-23] MEDS: ALBUTEROL SULFATE 2.5 MG/0.5 ML INH NEB SOLN INH SCH ×2 (07:23→11:44)
[2020-04-23] MEDS: HumaLOG INSULIN (NovoLOG) PER UNIT SC SCH ×2 (07:30→11:33)
[2020-04-23 09:00] VITALS: BP 102/63
[2020-04-23] MEDS ORDERED: FUROSEMIDE 40 MG TAB PO SCH (09:00)
[2020-04-23] MEDS: LISINOPRIL *2.5 MG* TAB PO SCH (09:00)
[2020-04-23] MEDS: PROPRANOLOL 60 MG LA CAP PO SCH (09:00)
[2020-04-23] MEDS: CETIRIZINE (ZyrTEC) 10 MG TAB PO SCH (09:01)
[2020-04-23] MEDS: ATORVASTATIN 20 MG TAB PO SCH (09:01)
[2020-04-23] MEDS: BACTRIM 160MG/800MG DS TAB PO SCH (09:01)
[2020-04-23] MEDS: ASPIRIN 81 MG ENTERIC TAB PO SCH (09:01)
[2020-04-23] MEDS: GABAPENTIN 300 MG CAP PO SCH (09:01)
[2020-04-23] MEDS: OMEPRAZOLE 20 MG CAP PO SCH (09:01)
[2020-04-23] MEDS: buPROPion **SR TABLET** (ZYBAN) 150MG PO SCH (09:01)
[2020-04-23] MEDS: predniSONE 20 MG TAB PO SCH (09:01)
[2020-04-23] MEDS: AZITHROMYCIN 250MG TABLET PO SCH (09:01)
--- NOTE | 2020-04-23 13:04 | DS.PDOC ---
Discharge Summary General Date of Admission Apr 17, 2020 at 20:55 Date of Discharge 04/23/2020 Attending Physician: DINO ALCANTARA MD Discharge Summary PROCEDURES PERFORMED DURING STAY: None. ADMITTING DIAGNOSES: 1. Congestive heart failure, interstitial lung disease, cor pulmonale. DISCHARGE DIAGNOSES: 1. Congestive heart failure, interstitial lung disease, cor pulmonale. COMPLICATIONS/CHIEF COMPLAINT: CHF. HISTORY OF PRESENT ILLNESS: 70-year-old female with past medical history of interstitial lung disease causing significant pulmonary hypertension and cor pulmonale was admitted for exacerbation of interstitial lung disease and cor pulmonale. Patient was treated with IV diuresis and steroids with good clinical response. Patient was initially requiring increase supplemental oxygen with significant drop in activity, but she has now returned closer baseline. Her Las ix dose will be increased at the time of discharge to 40 mg by mouth daily. She will also be discharged on a steroid taper. Her oxygen requirements have returned to her baseline 4 L/m and she has a concentrator for that already, cleared for discharge home. HOSPITAL COURSE: As above. DISCHARGE MEDICATIONS: Please see below. ALLERGIES: Please see below. PHYSICAL EXAMINATION: VITAL SIGNS: Please see below. GENERAL: No distress HEENT: Normocephalic, atraumatic, moist mucous membranes NECK: Supple CARDIOVASCULAR EXAMINATION: S1, S2, no murmurs RESPIRATORY EXAMINATION: Very poor air movement, diminished, mild wheezing appreciated ABDOMINAL EXAMINATION: Soft, nontender, nondistended, positive bowel sounds EXTREMITIES: Trace lower extremity edema SKIN: No rash NEUROLOGICAL EXAMINATION: Alert and oriented 3, no focal deficits PSYCHIATRIC EXAMINATION: Calm and cooperative LABORATORY DATA: Please see below. IMAGING: TTE showing significant pulmonary hypertension PROGNOSIS: Guarded ACTIVITY: As tolerated. DIET: Cardiac with a fluid restricted to 1500 ml per day DISCHARGE PLAN: Follow with PCP taxation accountant and tube repairer in 1-2 weeks DISPOSITION: Home. DISCHARGE INSTRUCTIONS: 1. As above. DISCHARGE CONDITION: Stable. TIME SPENT ON DISCHARGE: Greater than 32 minutes. Vital Signs/I&Os Vital Signs Date Time Temp Pulse Resp B/P (MAP) Pulse Ox O2 Delivery O2 Flow Rate FiO2 04/23/20 09:00 4.0 04/23/20 09:00 70 102/63 04/23/20 06:00 96.8 18 92 Nasal Cannula I&O- Last 24 Hours up to 6 AM 04/23/20 06:00 Intake Total 1345 ml Output Total 1275 ml Balance 70 ml Laboratory Data Labs 24H Laboratory Tests 2 04/22/20 16:43: Bedside Glucose (Misc Panel) 216H 04/22/20 20:34: Bedside Glucose (Misc Panel) 186H 04/23/20 05:32: Immature Granulocyte % (Auto) 0.4, Neutrophils (%) (Auto) 64.6, Lymphocytes (%) (Auto) 25.0, Monocytes (%) (Auto) 8.4H, Eosinophils (%) (Auto) 0.8, Basophils (%) (Auto) 0.8, Neutrophils # (Auto) 6.8, Lymphocytes # (Auto) 2.6, Monocytes # (Auto) 0.9H, Eosinophils # (Auto) 0.1, Basophils # (Auto) 0.1, Nucleated Red Blood Cells % (auto) 0.0, Anion Gap 7L, Glomerular Filtration Rate 54.0, Calcium Level 9.0, Magnesium Level 2.3 04/23/20 11:27: Bedside Glucose (Misc Panel) 99 CBC/BMP Laboratory Tests 04/23/20 05:32 FSBS Laboratory Tests Test 04/22/20 16:43 04/22/20 20:34 04/23/20 11:27 Range/Units Bedside Glucose (Misc Panel) 216 186 99 83-110 MG/DL Microbiology Microbiology 04/17/20 Respiratory Virus Panel (PCR) ([facility]) - Final, Complete Discharge Medications Scheduled Aspirin (Aspir 81) 81 Mg Tablet.dr, 81 MG PO DAILY, (Reported) Atorvastatin Calcium (Atorvastatin Calcium) 40 Mg Tablet, 40 MG PO DAILY, (Reported) Azithromycin (Azithromycin) 250 Mg Tablet, 250 MG PO DAILY, (Reported) Bupropion HCl (Bupropion HCl Sr) 150 Mg Tab.er.12h, 150 MG PO BID, (Reported) Cetirizine HCl (Cetirizine HCl) 10 Mg Tablet, 10 MG PO DAILY, (Reported) Furosemide (Lasix) 20 Mg Tablet, 40 MG PO DAILY Gabapentin (Gabapentin) 300 Mg Capsule, 300 MG PO TID, (Reported) Lisinopril (Lisinopril) 2.5 Mg Tablet, 2.5 MG PO DAILY, (Reported) Metformin HCl (Metformin HCl) 500 Mg Tablet, 500 MG PO BID, (Reported) Omeprazole (Omeprazole) 20 Mg Capsule.dr, 20 MG PO DAILY, (Reported) Prednisone (Prednisone) 10 Mg Tablet, 10 MG PO TAPER Take 4 tabs daily x 3 days, then 3 tabs daily x 3 days, then 2 tabs daily x 3 days, then 1 tab daily x 3 days and stop Propranolol HCl (Propranolol HCl ER) 60 Mg Cap.sa.24h, 60 MG PO DAILY, (Reported) Sulfamethoxazole/Trimethoprim (Bactrim 400-80 mg Tablet) 1 Each Tablet, 1 TAB PO BID Vit A/Vit C/Vit E/Zinc/Copper (Preservision Areds Softgel) 1 Each Capsule, 1 CAP PO DAILY, (Reported) Scheduled PRN Albuterol Sulfate (Proair Hfa) 8.5 Gm Hfa.aer.ad, 2 PUFFS INH QID PRN for SOB/WHEEZING, (Reported) Epinephrine (Epipen 2-Hank) 0.3 Mg/0.3 Ml Auto.injct, 0.3 MG IM ONCE PRN for ANAPHYLAXIS, (Reported) Tizanidine HCl (Tizanidine HCl) 4 Mg Tablet, 4 MG PO TID PRN for MUSCLE SPASMS, (Reported) Allergies Coded Allergies: bee venom protein (honey bee) (Verified Allergy, Severe, ANAPHYLAXIS, 04/17/20) meloxicam (Verified Allergy, Severe, SOB, 04/17/20) DINO ALCANTARA MD Apr 23, 2020 13:04
[2020-08-24] MEDS ORDERED: PREG75CA2 PO (13:56)
[2020-08-24] MEDS ORDERED: BISO5TAB14 PO (13:56)
== END 2020-04-23 13:40 | disposition home or self-care (01) | DRG 292 ==
LOC: M ED 18:53 → M ED INP 20:55 → ENRESERV 21:31 → M PCU 23:07 → M MSPAV 04-19 10:57
PROVIDERS: ADMIT Internal Medicine; ATTEND Internal Medicine
DX: I11.0 Hypertensive heart disease with heart failure (principal); J84.9 Interstitial pulmonary disease, unspecified; I25.10 Atherosclerotic heart disease of native coronary artery without angina pectoris; E78.5 Hyperlipidemia, unspecified; E11.9 Type 2 diabetes mellitus without complications; R09.02 Hypoxemia; G47.33 Obstructive sleep apnea (adult) (pediatric); I50.33 Acute on chronic diastolic (congestive) heart failure; I50.813 Acute on chronic right heart failure; G43.909 Migraine, unspecified, not intractable, without status migrainosus; K21.9 Gastro-esophageal reflux disease without esophagitis; F32.9 Major depressive disorder, single episode, unspecified; Z99.81 Dependence on supplemental oxygen; Z79.84 Long term (current) use of oral hypoglycemic drugs; Z79.82 Long term (current) use of aspirin; Z79.899 Other long term (current) drug therapy; Z88.6 Allergy status to analgesic agent; Z91.030 Bee allergy status; Z95.5 Presence of coronary angioplasty implant and graft; Z87.891 Personal history of nicotine dependence; Z11.59 Encounter for screening for other viral diseases

== ENCOUNTER → 2020-05-16 | Outpatient (CLI) | payer OTHER ==
[~2020-05-16] MED LIST changes: +ALB2.5NEB NEB; +ASPI81TA86 PO; +BACT400T PO; +BISO5TAB14; +CETI-24 PO; +EPIP0.3I2 IM; -GABA-282 PO; +GABA-843 PO; +OMEP-218 PO; +PRED10TA2 PO; +PREG75CA2; +PRESCAP PO; -TIZA1TAB12 PO; +TIZA2TAB6 PO; +TIZA4TAB4 PO
--- NOTE | 2020-07-24 15:02 | DEXA ---
AP SPINE L1 - L4 0.996 -1.6 0.1 LT FEMUR TOTAL 1.006 0.0 1.4 LT NECK 0.98 -0.4 1.3 RT FEMUR TOTAL 0.993 -0.1 1.3 RT NECK 1.022 -0.1 1.6 TOTAL BODY TOTAL OTHER COMMENTS: Normal bone densitometry of the hips. There is low bone density of the spine. FOLLOW-UP: Recommendation for the next bone density exam: 2 years. MADHAVI
== END ==
LOC: M WHC 09:51
PROVIDERS: ATTEND Family Medicine
DX: Z13.820 Encounter for screening for osteoporosis (principal); M85.88 Other specified disorders of bone density and structure, other site

== ENCOUNTER → 2020-05-29 | Outpatient (POV) | payer OTHER | LOC: M PAIN 11:45 | PROVIDERS: ATTEND Nurse Practitioner Family | DX: M79.18 Myalgia, other site (principal); M47.816 Spondylosis without myelopathy or radiculopathy, lumbar region ==

== ENCOUNTER 2020-06-08 08:02 | Inpatient (IN) | payer OTHER ==
[~2020-06-08 08:02] MED LIST changes: -ALB2.5NEB NEB; -BISO5TAB14; -PREG75CA2
[2020-06-08] MEDS ORDERED: ISOVUE-370 76% 100ML VIAL As Ordered ONE (21:14)
[2020-06-08] MEDS ORDERED: FUROSEMIDE 40MG/4ML VIAL (J1940) As Ordered ONE (22:41)
[2020-06-09] MEDS ORDERED: LISINOPRIL *2.5 MG* TAB ONE (08:32)
[2020-06-09] MEDS ORDERED: ENOXAPARIN 40MG/0.4ML SYRINGE (J1650 PER 10MG) ONE (08:32)
[2020-06-09] MEDS ORDERED: buPROPion **XL** TABLET 150MG (WELLBUTRIN XL) ONE ×2 (08:32→20:01)
[2020-06-09] MEDS ORDERED: GABAPENTIN 300 MG CAP ONE ×3 (08:32→20:01)
[2020-06-09] MEDS ORDERED: ASPIRIN 81 MG ENTERIC TAB ONE (08:32)
[2020-06-09] MEDS ORDERED: OMEPRAZOLE 20 MG CAP ONE (08:32)
[2020-06-09] MEDS ORDERED: BISOPROLOL FUM 2.5 MG PER 1/2TAB ONE (08:32)
[2020-06-09] MEDS ORDERED: buPROPion **SR TABLET** (ZYBAN) 150MG ONE (13:00)
[2020-06-09] MEDS ORDERED: buPROPion **XL** TABLET 150MG (WELLBUTRIN XL) As Ordered ONE (20:01)
[2020-06-09] MEDS ORDERED: GABAPENTIN 300 MG CAP As Ordered ONE (20:01)
[2020-06-09] MEDS ORDERED: NORCO, ANEXSIA 5/325MG TABLET (HYDROcodone/ACETAMINOPHEN) ONE (22:22)
[2020-06-09] MEDS ORDERED: NORCO, ANEXSIA 5/325MG TABLET (HYDROcodone/ACETAMINOPHEN) As Ordered ONE (22:22)
[2020-06-10] MEDS ORDERED: OMEPRAZOLE 20 MG CAP ONE (09:17)
[2020-06-10] MEDS ORDERED: SENOKOT S TAB ONE (09:17)
[2020-06-10] MEDS ORDERED: LISINOPRIL *2.5 MG* TAB ONE (09:17)
[2020-06-10] MEDS ORDERED: BISOPROLOL FUM 2.5 MG PER 1/2TAB ONE (09:17)
[2020-06-10] MEDS ORDERED: ASPIRIN 81 MG ENTERIC TAB ONE (09:17)
[2020-06-10] MEDS ORDERED: GABAPENTIN 300 MG CAP ONE (09:17)
[2020-06-10] MEDS ORDERED: buPROPion **XL** TABLET 150MG (WELLBUTRIN XL) ONE (09:17)
--- NOTE | 2020-07-16 16:58 | ECGEPIP ---
SINUS RHYTHM MINIMAL ST DEPRESSION BORDERLINE ECG SEE SCANNED DOWNTIME REPORT MTDD
--- NOTE | 2020-07-17 15:10 | ECGEPIP ---
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
[2020-07-24 08:22] LABS: D-DIMER QUANT 1069.19 ng/ml (<500); INR 1.09; PARTIAL THROMBOPLASTIN TIME 29.3 SECONDS (24.2-38.5); PROTHROMBIN TIME 14.3 SECONDS (12.5-14.3)
[2020-07-24 18:37] LABS: BASO # 0.1 10^3/uL (0.0-0.2); BASO % 0.9 % (0.0-1.0); HEMATOCRIT 36.1 % (36.0-47.0); HEMOGLOBIN 11.8 g/dl (12.0-15.5); LYMPH # 1.9 10^3/uL (1.5-5.0); LYMPH % 20.9 % (24.0-44.0); MEAN CORPUSCULAR HEMOGLOBIN 27.3 pg (27.0-33.0); MEAN CORPUSCULAR HGB CONC 32.7 g/dl (32.0-36.5); MEAN CORPUSCULAR VOLUME 83.6 fl (80.0-96.0); MONO # 0.8 10^3/uL (0.0-0.8); NEUTROPHILS # 5.2 10^3/uL (1.5-8.5); PLATELET COUNT, AUTOMATED 270 10^3/uL (150-450); RED BLOOD COUNT 4.32 10^6/uL (4.00-5.40)
[2020-07-30 08:10] LABS: BASO # 0.1 10^3/uL (0.0-0.2); EOS # 0.8 10^3/uL (0.0-0.5); EOS % 9.1 % (0.0-3.0); HEMATOCRIT 37.8 % (36.0-47.0); HEMOGLOBIN 12.5 g/dl (12.0-15.5); LYMPH # 1.3 10^3/uL (1.5-5.0); LYMPH % 14.6 % (24.0-44.0); MEAN CORPUSCULAR HEMOGLOBIN 27.2 pg (27.0-33.0); MEAN CORPUSCULAR HGB CONC 33.1 g/dl (32.0-36.5); MEAN CORPUSCULAR VOLUME 82.2 fl (80.0-96.0); MONO # 0.6 10^3/uL (0.0-0.8); MONO % 7.1 % (0.0-5.0); NEUTROPHILS # 6.1 10^3/uL (1.5-8.5); NEUTROPHILS % 67.9 % (36.0-66.0); PLATELET COUNT, AUTOMATED 278 10^3/uL (150-450); WHITE BLOOD COUNT 8.9 10^3/uL (4.0-10.0)
[2020-07-31 07:19] LABS: HEMATOCRIT 33.7 % (36.0-47.0); HEMOGLOBIN 11.1 g/dl (12.0-15.5); MEAN CORPUSCULAR HEMOGLOBIN 27.1 pg (27.0-33.0); MEAN CORPUSCULAR HGB CONC 32.9 g/dl (32.0-36.5); MEAN CORPUSCULAR VOLUME 82.2 fl (80.0-96.0); PLATELET COUNT, AUTOMATED 240 10^3/uL (150-450); WHITE BLOOD COUNT 6.8 10^3/uL (4.0-10.0)
--- NOTE | 2020-08-08 13:39 | ECHO ---
DATE OF PROCEDURE: 06/09/2020 Age: 70 Gender: Female Height: 60 inches Weight: 164 pounds Body Surface Area 1.7 m2. LOCATION: Inpatient PCU Room 3229 REFERRING PHYSICIAN: Dr. Limon INDICATION: Pulmonary edema. MEASUREMENTS: 2D Measurements: RV 3.9 cm LV 3.8 cm Septum 1.2 cm Posterior wall 1.2 cm LA 4.0 cm LVEF 65% Doppler Measurements: AV 1.92 m/sec LVOT 1.08 m/sec MV-E 91, A 133, EA ratio 0.7 Early mitral deceleration time 282 msec E prime medial 4.7, A prime medial 6.8, E prime lateral 8 Average E-E prime ratio 19 PV 0.8 msec Pulmonary artery deceleration time 81 msec RVSP 68 mmHg IVC 2.4 cm COMMENTS: Normal sinus rhythm with intermittent intraventricular conduction disturbance. M-mode and two-dimensional echocardiography was performed with pulse, continuous wave, color flow, and tissue Doppler studies. Borderline concentric left ventricular hypertrophy with septal wall motion abnormality suspected to be due to right ventricular pressure overload. Retained global left ventricular systolic function. Borderline left atrial enlargement with grade 1 LV diastolic dysfunction and elevated estimated mean left atrial pressure. Normal right ventricular size, but at least mildly dilated pulmonary trunk. Normal right ventricular free wall motion, and Doppler evidence of severe pulmonary hypertension. Mildly dilated right atrium and inferior vena cava with adequate respiratory collapse consistent with a central venous pressure at least upper limits of normal. Normal aortic dimensions. Asymmetrical aortic valvular sclerosis without stenosis and only very mild insufficiency. Moderate mitral annular calcification with fairly normal appearing leaflet thickness and excursion with no posterior systolic buckling and only mild mitral insufficiency. Normal appearing tricuspid valve with moderately severe to severe tricuspid insufficiency. No apparent intracardiac mass or pericardial effusion. MTDD
[2020-08-23 21:13] LABS: BLOOD UREA NITROGEN 13 MG/DL (7-18); CALCIUM LEVEL 8.7 MG/DL (8.8-10.2); CARBON DIOXIDE LEVEL 29 MEQ/L (21-32); CHLORIDE LEVEL 107 MEQ/L (98-107); CREATININE FOR GFR 1.05 MG/DL (0.55-1.30); GLOMERULAR FILTRATION RATE 55.2 (>39); GLUCOSE, FASTING 102 MG/DL (70-100); POTASSIUM SERUM 3.2 MEQ/L (3.5-5.1); SODIUM LEVEL 144 MEQ/L (136-145); TROPONIN I < 0.02 NG/ML (< 0.10)
[2020-08-24 02:36] LABS: ALBUMIN 3.3 GM/DL (3.2-5.2); ALT/SGPT 20 U/L (12-78); BILIRUBIN,DIRECT 0.1 MG/DL (0.0-0.2); BILIRUBIN,TOTAL 0.6 MG/DL (0.2-1.0); BLOOD UREA NITROGEN 14 MG/DL (7-18); CALCIUM LEVEL 9.1 MG/DL (8.8-10.2); CARBON DIOXIDE LEVEL 30 MEQ/L (21-32); CHLORIDE LEVEL 108 MEQ/L (98-107); CREATININE FOR GFR 1.02 MG/DL (0.55-1.30); FREE T4 0.95 NG/DL (0.76-1.46); GLUCOSE, FASTING 108 MG/DL (70-100); SODIUM LEVEL 145 MEQ/L (136-145); TOTAL PROTEIN 6.6 GM/DL (6.4-8.2); TROPONIN I < 0.02 NG/ML (< 0.10)
[2020-08-24 02:37] LABS: ABG pH (ARTERIAL) 7.534 UNITS (7.350-7.450)
[2020-08-24 02:38] LABS: ABG BASE EXCESS 0.3 (-2.0-2.0); ABG HCO3 21.9 MEQ/L (22.0-26.0); ABG O2 SATURATION 92.9 % (95.0-99.0); ABG PARTIAL PRESSURE CO2 26.6 mmHg (35.0-45.0); ABG PARTIAL PRESSURE O2 61.4 mmHg (75.0-100.0); ABG STANDARD HCO3 24.7 MEQ/L (22.0-26.0); ABG TOTAL CO2 22.7 MEQ/L (23.0-31.0)
[2020-09-02 04:11] LABS: BLOOD UREA NITROGEN 12 MG/DL (7-18); CALCIUM LEVEL 9.3 MG/DL (8.8-10.2); CARBON DIOXIDE LEVEL 27 MEQ/L (21-32); CHLORIDE LEVEL 106 MEQ/L (98-107); CREATININE FOR GFR 1.15 MG/DL (0.55-1.30); GLOMERULAR FILTRATION RATE 49.7 (>39); GLUCOSE, FASTING 167 MG/DL (70-100); POTASSIUM SERUM 3.3 MEQ/L (3.5-5.1); SODIUM LEVEL 142 MEQ/L (136-145); TROPONIN I < 0.02 NG/ML (< 0.10)
[2020-09-02 04:14] LABS: HEMOGLOBIN A1c 6.1 %
[2020-09-02 11:57] LABS: ALT/SGPT 18 U/L (12-78); BILIRUBIN,TOTAL 0.4 MG/DL (0.2-1.0); BLOOD UREA NITROGEN 15 MG/DL (7-18); CALCIUM LEVEL 8.7 MG/DL (8.8-10.2); CARBON DIOXIDE LEVEL 28 MEQ/L (21-32); CHLORIDE LEVEL 106 MEQ/L (98-107); CREATININE FOR GFR 0.82 MG/DL (0.55-1.30); GLOMERULAR FILTRATION RATE > 60.0 (>39); GLUCOSE, FASTING 100 MG/DL (70-100); MAGNESIUM LEVEL 1.9 MG/DL (1.8-2.4); NT-PRO BNP 122 PG/ML (<125); POTASSIUM SERUM 3.3 MEQ/L (3.5-5.1); SODIUM LEVEL 141 MEQ/L (136-145); TOTAL PROTEIN 6.1 GM/DL (6.4-8.2)
[2020-09-02 12:03] LABS: CALCIUM LEVEL 9.3 MG/DL (8.8-10.2); CREATININE FOR GFR 1.15 MG/DL (0.55-1.30); GLOMERULAR FILTRATION RATE 49.7 (>39); HEMOGLOBIN A1c 6.1 %; POTASSIUM SERUM 3.3 MEQ/L (3.5-5.1)
== END 2020-06-10 10:34 | disposition home or self-care (01) | DRG 291 ==
LOC: M ED 08:02 → M PCU 23:55
PROVIDERS: ADMIT Internal Medicine; ATTEND Internal Medicine
DX: I11.0 Hypertensive heart disease with heart failure (principal); J81.0 Acute pulmonary edema; I50.21 Acute systolic (congestive) heart failure; J96.10 Chronic respiratory failure, unspecified whether with hypoxia or hypercapnia; E87.6 Hypokalemia; Z79.899 Other long term (current) drug therapy; Z79.82 Long term (current) use of aspirin; Z87.891 Personal history of nicotine dependence; Z99.81 Dependence on supplemental oxygen; E11.9 Type 2 diabetes mellitus without complications; G47.33 Obstructive sleep apnea (adult) (pediatric); I27.81 Cor pulmonale (chronic); I25.10 Atherosclerotic heart disease of native coronary artery without angina pectoris; Z95.2 Presence of prosthetic heart valve

== ENCOUNTER 2020-08-24 13:12 | Emergency (ER) | payer OTHER ==
[~2020-08-24] VITALS: Ht 152.4 cm; Wt 73.3 kg
--- NOTE | 2020-08-24 13:41 | REP ---
INDICATION: CHEST PAIN COMPARISON: 06/08/2020 TECHNIQUE: Portable AP view of the chest FINDINGS: The mediastinum and cardiac silhouette are stable and within normal limits for portable technique. The lung hidalgo demonstrate chronic interstitial changes without acute consolidation, effusion, or pneumothorax. Skeletal structures are intact. IMPRESSION: Chronic changes. No acute cardiopulmonary process appreciated. <Electronically signed by Jaren Rizzo > 08/24/20 [id number]
[2020-08-24] MEDS ORDERED: BISO5TAB14 (13:56)
[2020-08-24] MEDS ORDERED: PREG75CA2 (13:56)
[2020-08-24 14:03] LABS: BASO # 0.1 10^3/uL (0.0-0.2); BASO % 1.1 % (0.0-1.0); EOS # 0.6 10^3/uL (0.0-0.5); EOS % 5.4 % (0.0-3.0); HEMATOCRIT 40.8 % (36.0-47.0); HEMOGLOBIN 13.1 g/dl (12.0-15.5); LYMPH # 1.8 10^3/uL (1.5-5.0); LYMPH % 17.2 % (24.0-44.0); MEAN CORPUSCULAR HEMOGLOBIN 26.5 pg (27.0-33.0); MEAN CORPUSCULAR HGB CONC 32.1 g/dl (32.0-36.5); MEAN CORPUSCULAR VOLUME 82.6 fl (80.0-96.0); MONO # 0.6 10^3/uL (0.0-0.8); MONO % 6.2 % (0.0-5.0); NEUTROPHILS # 7.2 10^3/uL (1.5-8.5); NEUTROPHILS % 69.8 % (36.0-66.0); PLATELET COUNT, AUTOMATED 319 10^3/uL (150-450); RED BLOOD COUNT 4.94 10^6/uL (4.00-5.40); WHITE BLOOD COUNT 10.3 10^3/uL (4.0-10.0)
[2020-08-24] MEDS ORDERED: ISOVUE-370 76% 100ML VIAL As Ordered ONE (14:11)
[2020-08-24] MEDS ORDERED: IPRATROPIUM 0.5MG/ALBUTEROL 2.5MG INH SOL UD 3ML (DUONEB) NEB ONE (14:15)
[2020-08-24] MEDS ORDERED: COMBIVENT RESPIMAT 100-20MCG INHALER 4GM INH SCH ×2 (14:30→21:00)
[2020-08-24 14:32] LABS: ALBUMIN 3.6 GM/DL (3.2-5.2); BILIRUBIN,DIRECT 0.1 MG/DL (0.0-0.2); BILIRUBIN,TOTAL 0.4 MG/DL (0.2-1.0); FREE T4 1.03 NG/DL (0.76-1.46); THYROID STIMULATING HORMONE 2.56 uIU/ML (0.358-3.740); TOTAL PROTEIN 7.6 GM/DL (6.4-8.2)
--- NOTE | 2020-08-24 14:39 | REP ---
INDICATION: chest pain COMPARISON: None. TECHNIQUE: Axial contrast enhanced images from the thoracic inlet to the upper abdomen using pulmonary embolus technique with multiplanar re-formations. 75 ml Isovue 370 intravenous contrast material administered without complication. This CT examination was performed using the following dose reduction techniques: Automated exposure control, adjustment of mA and/or kv according to the patient's size, and use of iterative reconstruction technique. FINDINGS: Satisfactory enhancement of the pulmonary vasculature is achieved and no filling defects are identified to suggest pulmonary embolus. Further evaluation of the mediastinum demonstrates atherosclerotic changes of the aorta and coronary arteries without aneurysm or dissection. No cardiomegaly or pericardial effusion. The bilateral lung hidalgo demonstrate bilateral ground glass opacities without consolidation. No effusion or pneumothorax. Mild/moderate mediastinal and bilateral hilar adenopathy again noted. IMPRESSION: No evidence for pulmonary embolus. Findings suggesting reactive airway disease/diffuse bronchitis. No focal consolidation. No effusion. <Electronically signed by Jaren Rizzo > 08/24/20 [id number]
--- NOTE | 2020-08-24 14:50 | REP ---
INDICATION: leg swelling/pain COMPARISON: None. TECHNIQUE: Aguilar scale and color Doppler evaluation of the bilateral lower extremities using linear high frequency transducer. FINDINGS: Ultrasound examination of the right and left lower extremity deep venous structures from the common femoral vein to the popliteal vein demonstrates normal compressibility flow and wave patterns in response to respiration and augmentation. There is no evidence for deep venous thrombosis. IMPRESSION: No evidence for deep venous thrombosis of the bilateral lower extremities. <Electronically signed by Jaren Rizzo > 08/24/20 [id number]
[2020-08-24] MEDS ORDERED: methylPREDNISolone 125MG 2ML VIAL IV ONE (15:15)
[2020-08-24] MEDS ORDERED: PRED10TA2 PO (18:37)
[2020-08-24] MEDS ORDERED: ALB2.5NEB NEB (18:37)
[2020-08-24 19:04] VITALS: BP 115/66
--- NOTE | 2020-08-25 13:28 | ECGEPIP ---
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 Electronically Signed on 08-25-2020 13:27:39 EDT by Gilmer Lr
--- NOTE | 2020-08-26 09:01 | ECGEPIP ---
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
== END 2020-08-24 19:34 | disposition home or self-care (01) ==
LOC: M ED 13:12
DX: J40 Bronchitis, not specified as acute or chronic (principal); J84.89 Other specified interstitial pulmonary diseases; R06.02 Shortness of breath; I11.0 Hypertensive heart disease with heart failure; I50.9 Heart failure, unspecified; E11.9 Type 2 diabetes mellitus without complications; G47.33 Obstructive sleep apnea (adult) (pediatric); Z95.5 Presence of coronary angioplasty implant and graft; Z87.891 Personal history of nicotine dependence; Z91.030 Bee allergy status; Z88.8 Allergy status to other drugs, medicaments and biological substances; Z79.899 Other long term (current) drug therapy; Z79.2 Long term (current) use of antibiotics; Z79.84 Long term (current) use of oral hypoglycemic drugs; Z79.82 Long term (current) use of aspirin
CPT/HCPCS: 36600; 71045; 71275; 80047; 80076; 82803; 83605; 83690; 83880; 84439; 84443; 84484; 85025; 93005; 93041; 93970; 96374; 99285; J2930; Q9967

== ENCOUNTER → 2020-08-27 | Outpatient (CLI) | payer OTHER ==
[~2020-08-27] MED LIST changes: +ALB2.5NEB NEB; +BISO5TAB14; +PREG75CA2
--- NOTE | 2020-09-01 23:58 | ECWPNPC ---
PATIENT NAME: CASEY KU : 1950 GENDER: FEMALE VISIT DATE: 08/27/2020 DISCHARGE DATE: 08/27/20 1025 VISIT LOCKED DATE TIME: PHYSICIAN: JUSTICE SCHOFIELD RESOURCE: JUSTICE SCHOFIELD REASON FOR APPOINTMENT 1. MED MANAGEMENT HISTORY OF PRESENT ILLNESS DEPRESSION SCREENING: PHQ-2 (2015 EDITION) LITTLE INTEREST OR PLEASURE IN DOING THINGS?NOT AT ALL FEELING DOWN, DEPRESSED, OR HOPELESS?NOT AT ALL TOTAL SCORE0 GENERAL: HERE FOR FOLLOW-UP OF CHRONIC LOW BACK PAIN. RECENT HOSPITAL STAY FOR WHAT SOUNDS LIKE CONGESTIVE HEART FAILURE. SHE IS ON PREDNISONE. FEELS CURRENT MEDICATION HYDROCODONE IS SOMEWHAT HELPFUL BUT SHE IS RELUCTANT TO TAKE MEDICATIONS. HER DAUGHTER ACCOMPANIES HER IN EXAM ROOM. DUE TO THE FACT THAT SHE IS GETTING UP FREQUENTLY TO URINATE HER PAIN HAS BEEN INCREASED. DISCUSSED LONG-ACTING PAIN MEDICATION. THEY ARE LOOKING FOR LOW DOSE MEDICATION THAT GIVES 24-HOUR COVERAGE.-. FALL RISK SCREENING: SCREENING :NO FALLS REPORTED IN THE LAST YEAR NONE PAIN SCREENING: PATIENT HAS A COMPLAINT OF ACUTE OR CHRONIC PAIN :YES LOCATION OF PAIN:LOW BACK INTENSITY OF PAIN (SCALE OF 1 TO 10):6 WHAT DOES YOUR PAIN FEEL LIKE:ACHING, THROBBING DURATION:CONTINOUS PAIN IS INCREASED BY:ACTIVITIES PAIN IS DECREASED BY:USE OF PAIN MEDICATIONS, OTHERS NURSING NOTE: -. PAIN CENTER INTAKE QUESTIONS: DO YOU HAVE A HISTORY OF MRSA? :NO DO YOU TAKE A BLOOD THINNERS? :NO DO YOU HAVE ANY BLEEDING DISORDERS? :NO ANY NEW NUMBNESS OR WEAKNESS IN YOUR LEGS OR ARMS? :NO ANY PACEMAKER,DEFIBRILLATOR, OR DORSAL COLUMN STIMULATOR? :NO DO YOU HAVE ANY RASHES OR OPEN SORES? :NO ARE YOU ALLERGIC TO IV DYE? :NO ARE YOU DIABETIC? :YES PRE DIABETIC ANY NEW PROBLEMS WITH YOUR MEDICATIONS? :NO HAVE YOU RECEIVED A VACCINE IN THE PAST 30 DAYS? :NO DO YOU PLAN TO RECEIVE A VACCINE IN THE NEXT 21 DAYS? :NO DO YOU NEED ANY PRESCRIPTION? :NO DO YOU TAKE ANY IMMUNOSUPPRESSIVE MEDICATIONS? :NO IS THERE A CHANCE YOU COULD BE ? :NO ARE YOU BREAST FEEDING? :NO CURRENT MEDICATIONS TAKING EPIPEN 2-AZEB 0.3 MG/0.3ML SOLUTION AUTO-INJECTOR DIRECTED INTRAMUSCULARLY ONCE PRN FOR ANAPHYLAXIS TAKING OMEPRAZOLE 20 MG CAPSULE DELAYED RELEASE 1 CAPSULE 30 MINUTES BEFORE MORNING MEAL ORALLY ONCE A DAY TAKING ASPIRIN 81 81 MG TABLET DELAYED RELEASE 1 TABLET ORALLY ONCE A DAY TAKING ALBUTEROL SULFATE HFA 108 (90 BASE) MCG/ACT AEROSOL SOLUTION 2 PUFFS INHALATION QID PRN SOB/WHEEZE, NOTES: CHANGED TO QID PRN TAKING CETIRIZINE HCL 10 MG TABLET 1 TABLET ORALLY ONCE A DAY TAKING METFORMIN HCL 500 MG TABLET 1 TABLET WITH A MEAL ORALLY TWICE A DAY TAKING PRESERVISION AREDS - CAPSULE 1 CAP ORALLY ONCE DAILY TAKING LISINOPRIL 2.5 MG TABLET 1 TABLET ORALLY ONCE A DAY TAKING NYSTATIN 016159 UNIT/GM POWDER 1 APPLICATION EXTERNALLY TO GROIN TWICE A DAY PRN, NOTES: PRN TAKING VITAMIN B12 _ TABLET 1 TABLET ORALLY ONCE A DAY, NOTES: NOT ON D/C LIST-500 MG TAKING FUROSEMIDE 20 MG TABLET 40 MG ORALLY DAILY, NOTES: INCREASED TO 40 MG TAKING ALBUTEROL SULFATE (2.5 MG/3ML) 0.083% NEBULIZATION SOLUTION 3 ML INHALATION EVERY 4 HOURS NEEDED FOR SOB TAKING AZITHROMYCIN 250 MG TABLET 1 TAB ORALLY ONCE A DAY TAKING ATORVASTATIN CALCIUM 40 MG TABLET 1 TABLET ORALLY DAILY TAKING POTASSIUM CHLORIDE ER 20 MEQ TABLET EXTENDED RELEASE 1 TABLET WITH FOOD ORALLY ONCE A DAY TAKING PREGABALIN 50 MG CAPSULE 1 CAPSULE ORALLY EVERY 8 HOURS TAKING BISOPROLOL FUMARATE 5 MG TABLET 1/2 TABLET ORALLY ONCE A DAY TAKING BUPROPION HCL ER (SR) 150 MG TABLET EXTENDED RELEASE 12 HOUR 1 TABLET ORALLY TWICE A DAY TAKING TIZANIDINE HCL 4 MG TABLET 1 TAB ORALLY 3 TIMES A DAY NEEDED FOR MUSCLE SPASMS, NOTES: CHANGED TO 1 TAB TAKING ROLLING WALKER 1 1 DIRECTED DX: M51.16 TAKING PREGABALIN 75 MG CAPSULE 1 CAPSULE ORALLY ONCE A DAY NOT-TAKING GABAPENTIN 300 MG CAPSULE TAKE 3 CAPSULES BY MOUTH THREE TIMES DAILY MEDICATION LIST REVIEWED AND RECONCILED WITH THE PATIENT PAST MEDICAL HISTORY HTN, GOAL < 130/80 PER ACC/AHA HYPERLIPIDEMIA TYPE 2 DM, GOAL HBA1C < 6.5 INTERSTITIAL LUNG DISEASE - DR. RIVAS CHRONIC LOW BACK PAIN - PAIN MANAGEMENT CAD WITH [place] 2013, STENT - CARDIOLOGY DEPRESSION HX OF MIGRAINES - NEUROLOGY ABRAHAM - ON CPAP ALLERGIES LATEX GLOVES: RASH/ITCHING - ALLERGY BEE STINGS: ANAPHYLAXIS - ALLERGY SURGICAL HISTORY APPENDECTOMY 1967 C SECTION X2 1980. 1986 BILATERAL FOOT SURGERY 1988 PARTIAL HYSTERECTOMY 1988 COLONOSCOPY WITH POLYPECTOMY 2012 RIGHT ROTATOR CUFF TEAR REPAIR 2014 HEART STENT 2014 LUNG BIOPSY 2018 LASIK SURGERY BILATERAL EYES 2017 COLONOSCOPY, REPORTEDLY DIVERTICULOSIS BUT NO POLYPS 2017 LUNG BIOPSIES [id number] FAMILY HISTORY FATHER: 2 SON(S) , 2 DAUGHTER(S) . FATHER- NATURAL CAUSE, CONGESTIVE HEART DISEASEMOTHER- ALZHEIMERSSON- HANDICAPPEDBROTHER- [place]. SOCIAL HISTORY GENERAL: TOBACCO USE ARE YOU A:FORMER SMOKER HOW LONG HAS IT BEEN SINCE YOU LAST SMOKED?5-10 YEARS LATEX QUESTIONNAIRE LATEX ALLERGY : HAVE YOU EVER DEVELOPED ANY TYPE OF REACTION AFTER HANDLING LATEX PRODUCTS SUCH RUBBER GLOVES, CONDOMS, DIAPHRAGMS, BALLOONS, SOCKS, OR UNDERWEAR?YES POWDER CAUSES RASH - PLEASE INDICATE :RUBBER GLOVES LATEX ALLERGY : HAVE YOU EVER DEVELOPED ANY TYPE OF REACTION DURING OR AFTER DENTAL APPOINTMENT, VAGINAL/RECTAL EXAMINATION, SURGICAL PROCEDURE, OR ANY OTHER EXPOSURE?NO LATEX RISK : HAVE YOU EVER HAD ANY DIFFICULTY BREATHING OR HIVES AFTER EATING OR HANDLING ANY FRUITS, OR VEGETABLES; SUCH KIWI, BANANAS, STONE FRUITS, OR CHESTNUTSNO LATEX RISK : DO YOU HAVE A PREVIOUS PERSONAL HISTORY OF MORE THAN NINE SURGERIES, SPINA BIFIDA, OR REPEATED CATHERIZATIONS? NO LATEX RISK : ARE YOU FREQUENTLY EXPOSED TO LATEX PRODUCTS IN YOUR OCCUPATION?NO DATE ASKED : 08/27/2020 ALCOHOL SCREENING DID YOU HAVE A DRINK CONTAINING ALCOHOL IN THE PAST YEAR?NO POINTS0 INTERPRETATIONNEGATIVE RECREATIONAL DRUG USE DRUG USE?NO PATIENT DENIES ABUSE OR MISSUSED OF ANY MEDICATION DENIES PATIENT DENIES USE OF ANY ILLEGAL SUBSTANCE INCLUDING MARIJUANA OR COCAINE DENIES CAFFEINE CAFFEINE USE?YES ICED TEA, COFFEE SEXUAL HX HAD SEX IN THE LAST 12 MONTHS (VAGINAL, ORAL, OR ANAL)?NO LMP:1988 PARTIAL HYSTERECTOMY HAVE YOU EVER HAD AN STD?NO HIV / HEP-C SCREENING HIV TEST OFFERED TO PATIENT:YES DATE OFFERED:08/22/2019 TEST ACCEPTED:NO HEP-C TEST OFFERED TO PATIENT:YES DATE OFFERED:08/22/2019 REASON:PATIENT DECLINED TEST ACCEPTED:NO REASON:PATIENT DECLINED BROCHURE PROVIDED TO PATIENTYES JAIN [id number] SPIRITISM LANGUAGE LANGUAGES SPOKEN:ROMANIAN EDUCATION LEVEL OF EDUCATION:COLLEGE LEARNING BARRIERS / SPECIAL NEEDS CHANGE FROM LAST VISIT?NO 03/25/2020 BARRIERS TO LEARNING?NO HEARING IMPAIRED?NO VISION IMPAIRED?YES COGNITIVELY IMPAIRED?NO :CORRECTIVE LENSES READINESS TO LEARN?YES LEARNING PREFERENCES?NO LEARNING CAPABILITIES PRESENT?YES EMOTIONAL BARRIERS?NO SPECIAL DEVICES?YES :CANE TUBE BALANCER NEEDED?NO DOMESTIC VIOLENCE DO YOU FEEL SAFE IN YOUR ENVIRONMENT?YES OCCUPATION: RETIRED. DIET: REGULAR. EXERCISE: NO REGULAR EXERCISE. MARITAL STATUS: . OTHERS AT HOME: DAUGHTERS AMD GOD- CHILDREN. TODAY'S VISIT NOTES 03/13/2020, PATIENT DESCRIBES PAIN : ACHING, HAVE IT ALL THE TIME, FROM 0-10, WHAT LEVEL IS YOUR PAIN TODAY? 8. PAIN CLINIC PFS, CLERGY, PUBLIC HEALTH REFERRALS PFS REFERRAL NEEDED?NO CLERGY REFERRAL NEEDED?NO PUBLIC HEALTH REFERRAL NEEDED?NO WAS THE PROVIDER NOTIFIED OF ANY PERTINENT INFO?YES HAS THE PATIENT BEEN EDUCATED REGARDING HIS/HER PLAN OF CARE?YES HAS THE PATIENT BEEN EDUCATED REGARDING PAIN, THE RISK FOR PAIN, THE IMPORTANCE OF EFFECTIVE PAIN MANAGEMENT, AND THE PAIN ASSESSMENT PROCESS?YES HOUSING: OWNS HOME. ADVANCE DIRECTIVE ADVANCE DIRECTIVE DISCUSSED WITH PATIENT:YES HCP- DAUGHTER- RUTH KU- HOSPITALIZATION/MAJOR DIAGNOSTIC PROCEDURE PNEUMONIA, HYPOXIA 12/2018,12/2018, 01/2019 SURGERIS SOB/FLUD RETENSION 03/2020 REVIEW OF SYSTEMS CONSTITUTIONAL: ANY RECENT FEVER NO . CHILLS NO . WEIGHT CHANGE OF UNKNOWN REASONS NO . GASTROENTEROLOGY: NEW UNEXPLAINABLE CHANGES IN BOWEL CONTROL NO . CONSTIPATION NO . GENITOURINARY: ANY NEW CHANGE IN BLADDER CONTROL? NO . NEUROLOGY: NEW ONSET DIZZINESS OR NEUROLOGICAL CHANGES NOT MENTIONED NO . NEW NUMBNESS OR PAIN PATTERNS NOT MENTIONED AND PERTINENT TO TODAY'S VISIT NO . CARDIOLOGY: NEW CHEST PRESSURE NO . NEW CHEST PAIN NO . RESPIRATORY: UNEXPLAINABLE COUGH NO . NEW SHORTNESS OF BREATH YES . VITAL SIGNS WT 163.4 LBS, HT 62 IN, BMI 29.88 INDEX, BP 138/66 MM HG, HR 87 /MIN, RR 20 /MIN, TEMP 96.6 F, OXYGEN SAT % 91%, SAFE IN ENV? (Y/N) YES, NA INITIALS VT 09:31, REVIEWED BY: CHICHI. EXAMINATION GENERAL EXAMINATION: GENERAL AWAKE,ALERT ,PLEASANT . PSYCH AFFECT NORMAL . LUNGS: LUNG TAM ARE CLEAR TO AUSCULTATION BILATERALLY. GOOD MOVEMENT OF AIR . HEART: S1, S2 IN A REGULAR RATE AND RHYTHM. NO SIGNIFICANT MURMURS, RUBS OR GALLOPS NOTED . LUMBAR: PALPATION: + FOR PAIN OVER L/S SPINE. + FOR PAIN OVER L/S PARASPINALS MODIFIED SLE: POSITIVE OVER RIGHT LEG AT 20 DEGREES. ASSESSMENTS LUMBAR SPINAL STENOSIS - M48.061 (PRIMARY) INTERVERTEBRAL DISC DISORDERS WITH RADICULOPATHY, LUMBAR REGION - M51.16 CHRONIC PRESCRIPTION OPIATE USE - Z79.891 TREATMENT LUMBAR SPINAL STENOSIS START BUTRANS PATCH WEEKLY, 10 MCG/HR, 1 PATCH TO SKIN, TRANSDERMAL, Q 7 DAYS=MDD, 30 DAYS, 4, REFILLS 2 START HYDROCODONE-ACETAMINOPHEN TABLET, 5-325 MG, 1 TABLET NEEDED, ORALLY, EVERY 8 HOURS WHEN NECESSARY MDD 3, 30 DAYS, 45, REFILLS 0 NOTES: DUE TO MULTIPLE COMORBIDITIES IT WOULD BE IN PATIENT'S BEST INTEREST TO USE BUTRANS-PATCH EVERY 7 DAYS FOR CHRONIC UNCONTROLLED [id number] PAIN. , ISTOP REGISTRY REVIEWED AND DEMONSTRATES COMPLLIANCE. URINE TOX TODAY , [facility] [place] NARCOTIC AGREEMENT WAS REVIEWED AND SIGNED TODAY BY THE PATIENT. SEE ATTACHED DOCUMENT FOR FULL DETAILS; SPECIFIC ISSUES WERE REVIEWED: 1) KEEP PAIN MEDS IN THEIR ORIGINAL BOTTLES AND ANY WEEKLY PLANNERS ARE TO BE BROUGHT TO THE PAIN CENTER AT EVERY VISIT. 2) THE PATIENT IS NOT TO INCREASE DOSING OR TIMING OF THEIR PAIN MEDICATION WITHOUT SPECIFIC DIRECTION OF THEIR PAIN CENTERPROVIDER (NOT ER OR OTHER PROVIDERS). 3) ALL PAIN MEDS ARE TO BE KEPT SECURED, IN A LOCKED BOX. 4) NO PAIN MEDS ARE TO BE SHARED WITH ANY OTHER PERSON FOR ANY REASON. 5) NO PAIN MEDS MAY BE TAKEN FROM ANY FRIENDS OR RELATIVES FOR ANY REASON 6) NO MEDS OR SUBSTANCES WHICH ARE NOT LEGAL ARE TO BE USED- NO MARIJUANA, NO COCAINE, AMPHETAMINES, HEROIN, OR OTHERS ARE EVER TO BE USED. 7)URINE TESTING IS DONE TO ACCOUNT FOR MEDS AND SUBSTANCES BEING TAKEN AND WILL BE DONE RANDOMLY. PROCEDURE CODES FA211 ESTABILISHED PATIENT [facility] CHARGE DISPOSITION & COMMUNICATION FOLLOW UP 3 MONTHS (REASON: MEDICATION MANAGEMENT, REVIEW URINE TOXICOLOGY) ELECTRONICALLY SIGNED BY REJI BERGER ON 09/01/2020 AT 12:54 PM EST DISCLAIMER : THIS IS A VISIT SUMMARY EXTRACTED FROM THE [employer] CHART. IT IS NOT A COPY OF THE [employer] PROGRESS NOTE. MADHAVI
== END ==
LOC: M PAIN 09:15
PROVIDERS: ATTEND Nurse Practitioner Family
DX: M48.061 Spinal stenosis, lumbar region without neurogenic claudication (principal); M51.16 Intervertebral disc disorders with radiculopathy, lumbar region; Z79.891 Long term (current) use of opiate analgesic; I10 Essential (primary) hypertension; E78.5 Hyperlipidemia, unspecified; E11.9 Type 2 diabetes mellitus without complications; I25.10 Atherosclerotic heart disease of native coronary artery without angina pectoris; I25.2 Old myocardial infarction; Z95.5 Presence of coronary angioplasty implant and graft; F32.9 Major depressive disorder, single episode, unspecified; G47.33 Obstructive sleep apnea (adult) (pediatric); Z87.891 Personal history of nicotine dependence; Z79.82 Long term (current) use of aspirin; Z79.84 Long term (current) use of oral hypoglycemic drugs; Z79.899 Other long term (current) drug therapy; Z91.040 Latex allergy status; Z91.030 Bee allergy status

== ENCOUNTER → 2020-09-08 | Outpatient (CLI) | payer OTHER ==
--- NOTE | 2020-09-08 08:04 | REP ---
INDICATION: PULMONARY HTN NM 1ST XR 2ND COMPARISON: 08/24/2020 TECHNIQUE: PA and lateral. FINDINGS: The mediastinum and cardiac silhouette are normal. The lung hidalgo demonstrate a very subtle diffuse interstitial prominence suggesting the possibility of bronchitis. No focal consolidation, effusion, or pneumothorax.. The skeletal structures are intact and normal. IMPRESSION: Subtle increased interstitial prominence throughout the lung hidalgo may represent stable chronic interstitial changes as well as a mild bronchitis and correlation is recommended. No focal consolidation or effusion. <Electronically signed by Jaren Rizzo > 09/08/20 0890
--- NOTE | 2020-09-08 11:38 | REP ---
INDICATION: PULMONARY HTN NM 1ST XR 2ND. COMPARISON: Comparison chest x-ray September 08, 2020. Comparison CT pulmonary angiogram August 24, 2020.. TECHNIQUE: 1.0 mCi of technetium 99 M DTPA aerosol is utilized for the ventilation study and is followed by a 5.5 mCi dose of intravenous technetium 99 MMAA for the perfusion study. A sequence of 8 planar images are acquired for each portion of the study. FINDINGS: Ventilation study shows fairly homogeneous uptake in the lung hidalgo bilaterally. The perfusion exam shows no evidence of perfusion defect. No mismatch. IMPRESSION: No ventilation perfusion mismatch to suggest pulmonary embolus. Negative exam. <Electronically signed by Jayson Pro > 09/08/20 [id number]
== END ==
LOC: M RAD 07:13
PROVIDERS: ATTEND Internal Medicine Pulmonary Disease
DX: I27.0 Primary pulmonary hypertension (principal)
CPT/HCPCS: 71046; 78582; A9540; A9567

== ENCOUNTER → 2020-09-09 | Outpatient (CLI) | payer OTHER ==
--- NOTE | 2020-09-11 07:03 | SLEEPCENT ---
DATE: 09/09/2020 ORDERED BY: Dr. Dickens Nocturnal polysomnography was performed for evaluation of sleep physiology in this patient with a history of excessive somnolence and nonrestorative sleep. Testing was performed in a reclining chair on supplemental oxygen. There was 8 hours and 11 minutes of data was reviewed. There was 344.5 minutes of sleep identified. Sleep latency was normal at 29 minutes. REM latency was short at 76 minutes. Sleep architecture showed fragmentation and poor sleep progression. There were three REM cycles noted. Overall sleep efficiency was 71%. The patient's electrocardiogram showed a sinus rhythm with an average heart rate of 70 beats per minute. EEG showed some mild coarsening in background, otherwise normal waveforms for wake and sleep. There were 91 respiratory events identified of 10 seconds in duration or greater for an apnea-hypopnea index of 15.8. The events were primarily obstructive, not exclusive to sleep stage, more frequent in the supine posture. Arousals from respiratory events occurred 7.8 times per hour, and oxygen desaturations were seen into the low 80s. There was significant limb activity noted, but limb movement arousal index was only 6.8. IMPRESSION: Obstructive sleep apnea syndrome (G47.33). Apnea-hypopnea index 15.8. RECOMMENDATION: The patient should be encouraged to return to the sleep disorder center for pressure therapy. In the interim, alcohol and sedative avoidance should be practiced and caution exercised during the operation of motor vehicles. MTDD
== END ==
LOC: M SLEEP 20:00
PROVIDERS: ATTEND Internal Medicine Pulmonary Disease
DX: G47.30 Sleep apnea, unspecified (principal)

== ENCOUNTER → 2020-09-16 | Outpatient (CLI) | payer OTHER ==
[2020-09-16 09:19] LABS: BASO # 0.1 10^3/uL (0.0-0.2); BASO % 0.6 % (0.0-1.0); EOS # 0.4 10^3/uL (0.0-0.5); EOS % 4.2 % (0.0-3.0); HEMATOCRIT 42.4 % (36.0-47.0); HEMOGLOBIN 13.3 g/dl (12.0-15.5); LYMPH # 1.4 10^3/uL (1.5-5.0); LYMPH % 13.9 % (24.0-44.0); MEAN CORPUSCULAR HGB CONC 31.4 g/dl (32.0-36.5); MONO # 0.6 10^3/uL (0.0-0.8); MONO % 6.1 % (0.0-5.0); NEUTROPHILS # 7.8 10^3/uL (1.5-8.5); NEUTROPHILS % 74.9 % (36.0-66.0); PLATELET COUNT, AUTOMATED 276 10^3/uL (150-450); RED BLOOD COUNT 5.11 10^6/uL (4.00-5.40); WHITE BLOOD COUNT 10.4 10^3/uL (4.0-10.0)
[2020-09-16 09:23] LABS: APPEARANCE, URINE CLEAR (CLEAR); BACTERIA, URINE AUTO NEGATIVE (NEGATIVE); BILIRUBIN, URINE AUTO NEGATIVE (NEGATIVE); BLOOD, URINE BLOOD NEGATIVE (NEGATIVE); COLOR, URINE YELLOW (YELLOW); GLUCOSE, URINE (UA) AUTO NEGATIVE (NEGATIVE); KETONE, URINE AUTO NEGATIVE (NEGATIVE); LEUKOCYTE ESTERASE, URINE AUTO TRACE (NEGATIVE); NITRITE, URINE AUTO NEGATIVE (NEGATIVE); PROTEIN, URINE AUTO NEGATIVE (NEGATIVE); RBC, URINE AUTO 0 /HPF (0-3); SPECIFIC GRAVITY URINE AUTO 1.015 (1.002-1.035); SQUAMOUS EPITHELIAL CELL UR AU 0 /HPF (0-6); UROBILINOGEN, URINE AUTO 0.2 mg/dL (0.0-2.0); WBC, URINE AUTO 2 /HPF (0-3)
[2020-09-16 09:59] LABS: ALBUMIN 3.7 GM/DL (3.2-5.2); BILIRUBIN,TOTAL 0.7 MG/DL (0.2-1.0); CALCIUM LEVEL 9.5 MG/DL (8.8-10.2); CHOLESTEROL RISK RATIO 3.5 (<5); CREATININE FOR GFR 1.06 MG/DL (0.55-1.30); FREE T4 1.11 NG/DL (0.76-1.46); GLOMERULAR FILTRATION RATE 54.6 (>39); POTASSIUM SERUM 3.9 MEQ/L (3.5-5.1); THYROID STIMULATING HORMONE 2.18 uIU/ML (0.358-3.740); TOTAL 25(OH) VITAMIN D 13.6 NG/ML (30.0-100.0); TOTAL PROTEIN 7.3 GM/DL (6.4-8.2)
[2020-09-16 13:27] LABS: HEMOGLOBIN A1c 5.7 %
== END ==
LOC: M LAB 08:34
PROVIDERS: ATTEND Physician Assistant
DX: Z00.01 Encounter for general adult medical examination with abnormal findings (principal); I10 Essential (primary) hypertension; E11.9 Type 2 diabetes mellitus without complications; Z79.899 Other long term (current) drug therapy

== ENCOUNTER → 2020-11-01 | Outpatient (CLI) | payer OTHER ==
--- NOTE | 2020-11-04 09:35 | SLEEPCENT ---
NOCTURNAL POLYSOMNOGRAPHY CPAP TITRATION DATE: 11/01/2020 ORDERED BY: Amie Dickens MD Nocturnal polysomnography was performed for the titration of pressure therapy in this patient with obstructive sleep apnea syndrome with apnea-hypopnea index of 15.8. For testing the patient was fit with a ResMed Air F20 full face mask of small size, 4 cm of water pressure were applied to the circuit as were 6 liters of oxygen, and the lights were extinguished. 7 hours and 33 minutes of data were reviewed. There were 226.5 minutes of sleep identified. Sleep latency was short at 8.5 minutes. REM sleep was delayed at 236 minutes. Sleep architecture showed poor progression. There was one episode of REM shortly after 2 a.m. and then a period of long wakefulness resulting in reduced sleep efficiency of 50.4%.The electrocardiogram showed a sinus rhythm with an average heart rate of 72 beats per minute. EEG showed reasonably normal waveforms for wake and sleep. Respiratory events were found best palliated with CPAP at a pressure of 10 with which pressure, the patient slept through REM in the supine posture without respiratory event or oxygen desaturation. IMPRESSION: Obstructive sleep apnea syndrome (G47.33). RECOMMENDATION: Nightly use of pressure therapy 10 cm of water with 6 liters of oxygen bled through the CPAP circuit.
== END ==
LOC: M SLEEP 10-31 20:00
PROVIDERS: ATTEND Internal Medicine Pulmonary Disease
DX: G47.33 Obstructive sleep apnea (adult) (pediatric) (principal)

== ENCOUNTER 2020-11-17 00:41 | Inpatient (IN) | payer MEDICARE, OTHER ==
[~2020-11-17] VITALS: Ht 152.4 cm; Wt 75.5 kg
[2020-11-17] VITALS (15 sets, daily range): BP systolic 92–113; BP diastolic 54–71; O2SAT 86–98
[~2020-11-17 00:41] MED LIST changes: -BISO5TAB14; +BISO5TAB14 PO; +GABA-282 PO; -GABA-843 PO; -PREG75CA2; +PREG75CA2 PO; +TIZA1TAB12 PO; -TIZA2TAB6 PO
--- OUTSIDE RECORDS SUMMARY | 2020-11-17 00:45 | CCD ---
Author Author [facility] Organization [facility] Address Unknown Phone Unavailable Care Team Providers Care Power Transformer Assembler Name Role Phone Haris Thompson Unavailable PROBLEMS Type Condition ICD9-CM Code [id number] Code Onset Dates Condition S tatus SNOMED Code Notes Problem Other chronic pain G89.29 Active 04662156 Problem Controlled type 2 diabetes m ellitus without complication, without long- term current use of insulin E11.9 Active 61443617 4 Problem Mixed hyperlipidemia E78.2 Active 372627973 Problem Coronary artery disease invo lving quechan coronary artery of quechan heart without angina pectoris I25.10 Active 470585730817 7 Problem Interstitial lung disease J84.9 Active 550908 007 Problem ABRAHAM (obstructive sleep apnea) G47.33 Active 78 835271 Problem Gastroesophageal reflux disease, esophagitis pre sence not specified K21.9 Active 533906557 Problem Lumbago with sciatica, unspecified side M54.40 Active 268596429 Problem Intervertebral disc disorders with radiculopathy , lumbar region M51.16 Active 003707035207152 Problem Myalgia, other site M79.18 Active 39044714 Problem Cor pulmonale I27.81 Active 08354728 Problem Lumbago with sciatica, right side M54.41 Active 724785472 Problem Secondary osteoporosis M81.8 Active 520986381 Problem Essential hypertension I10 Active 89577720 Problem Seasonal allergies J30.2 Active 945439344 Problem Bee sting allergy Z91.030 Active 294604293 Problem Spinal stenosis of lumbar region with neurogenic harvey ication M48.062 Active 79070830 Problem Lumbar spinal stenosis M48.061 Active 64941845 ALLERGIES Allergen (clinical drug ingredient) Drug/Non Drug Allergy do cumented on EMR Reaction Allergy Type Onset Date Status Latex Gloves([facility] Code:25833-34434) Rash/ITCHING Drug Aller gy Active Bee Stings Anaphylaxis Non Drug Allergy Active ENCOUNTERS from 1950 to 2020-11-11 Encounter Location Date Provider Diagnosis [facility] [address] [place] [id number] Oct, Haris Thompson Lumbar spinal stenosis M48.061 IMMUNIZATIONS Vaccine Route Administration Date Status Influenza (18 yrs & older) Flublok IM Intramuscular Aug 22, 2019 Administered SOCIAL HISTORY Tobacco Use: Social History Observation Description Date Details (start date - stop date) Former Smoker Sex Assigned At : Social History Observation Description Sex Assigned At Unknown Education: Question Answer Notes Level of Education: College Language: Question Answer Notes Languages spoken: Egyptian Church: Question Answer Notes [employer] Sexual Hx: Question Answer Notes Had sex in the last 12 months (vaginal, oral, or anal)? No LMP: 1987 Partial Hysterectomy Have you ever had an STD? No Alcohol Screening: Question Answer Notes Did you have a drink containing alcohol in the past year? No Points 0 Interpretation Negative Tobacco Use: Question Answer Notes Are you a: former smoker How long has it been since you last smoked? 5-10 years REASON FOR REFERRAL No Information VITAL SIGNS No information MEDICATIONS Medication SIG (Take, Route, Frequency, Duration) Notes Start Da te End Date Status Pregabalin 75 MG 1 capsule Orally Once a day Active Lisinopril 2.5 MG 1 tablet Orally Once a day for 90 day(s) Mar, Active Potassium Chloride ER 20 MEQ 1 tablet with food Orally Once a day for 90 day(s) Jul, Active Nystatin 697933 UNIT/GM 1 application Externally to groin Twice a day prn Dec, Active Gabapentin 300 MG TAKE 3 CAPSULES BY MOUTH THREE TIMES DAILY for 30 Not-Taking Tizanidine HCl 4 MG 1 tab orally 3 times a day a s needed for muscle spasms for 30 Days Mar, Active PreserVision AREDS - 1 cap Orally once daily Active Metformin HCl 500 MG 1 tablet with a meal Orally twice a day for 30 Active BuPROPion HCl ER (SR) 150 MG 1 tablet Orally Twice a day for 30 Active Belbuca 150 MCG 1 film to the gum Bucally every 12 hrs mdd2 for 30 Days Aug, Active Aspirin 81 81 MG 1 tablet Orally Once a day for 30 day(s) Active Bisoprolol Fumarate 5 MG 1/2 tablet Orally Once a day Active Albuterol Sulfate HFA 108 (90 Base) MCG/ACT 2 puffs In halation QID prn SOB/wheeze Sep, Active Omeprazole 20 MG 1 capsule 30 minutes before morning meal Orally Once a day for 30 day(s) Mar, Active Hydrocodone-Acetaminophen 5-325 MG 1 tablet as needed Orally Every 8 hours when necessary MDD 3 for 30 Days Oct, Acti ve Cetirizine HCl 10 MG 1 tablet Orally Once a day for 30 day(s) Dec, Active Vitamin B12 _ 1 tablet Orally Once a day Active Atorvastatin Calcium 40 MG 1 tablet orally Daily for 90 days Active Pregabalin 50 MG 1 capsule Orally every 8 hours Active EpiPen 2-Hank 0.3 MG/0.3ML as directed intramuscularly once p rn for anaphylaxis Mar, Active Butrans 10 MCG/HR 1 patch to skin Transdermal Q 7 DAYS=MDD for 3 0 Days Jul, Active Furosemide 20 MG 40 mg orally Daily Mar, Active Rolling Walker 1 with seat as directed Dx: M51.16 Jul, Active Albuterol Sulfate (2.5 MG/3ML) 0.083% 3 ml Inhalation every 4 hours as needed for SOB Mar, Active Azithromycin 250 MG 1 tab Orally Once a day for 30 days Active PROCEDURES No Information RESULTS No Results REASON FOR VISIT REFILL HYDROCODONE MEDICAL (GENERAL) HISTORY Type Description Date Medical History HTN, goal < 130/80 per ACC/AHA Medical History Hyperlipidemia Medical History Type 2 DM, goal HbA1c < 6.5 Medical History Interstitial Lung disease - Dr. Dickens Medical History Chronic low back pain - pain management Medical History CAD with NE 2014, stent - cardiology Medical History Depression Medical History Hx of Migraines - Neurology Medical History ABRAHAM - on CPAP Surgical History appendectomy 1966 Surgical History C section x2 1980. 1986 Surgical History Bilateral foot surgery 1988 Surgical History partial hysterectomy 1987 Surgical History colonoscopy with polypectomy 2011 Surgical History Right rotator cuff tear repair 2013 Surgical History heart stent 2014 Surgical History lung biopsy 2018 Surgical History Lasik surgery bilateral eyes 2017 Surgical History colonoscopy, reportedly diverticulosis b ut no polyps 2017 Surgical History lung biopsies [phone] Hospitalization History pneumonia, Hypoxia 12/2018,12/2018, Hospitalization History SURGERIS Hospitalization History SOB/Flud retension 03/2020 Goals Section No Information Health Concerns No Information MEDICAL EQUIPMENT No Information MENTAL STATUS No Information FUNCTIONAL STATUS No Information ASSESSMENTS Encounter Date Diagnosis Assessment Notes Treatment Notes Treatm ent Clinical Notes Oct, Lumbar spinal stenosis (ICD-10 - M48.061) PLAN OF TREATMENT Medication Medication Name Sig Start Date Stop Date Butrans 10 MCG/HR 1 patch to skin Transdermal Q 7 DAYS=MDD for 30 Days Jul, Rolling Walker 1 with seat as directed Dx: M51.16 Jul, Hydrocodone-Acetaminophen 5-325 MG 1 tablet as needed Orally Every 8 hours when necessary MDD 3 for 30 Days Oct, Belbuca 150 MCG 1 film to the gum Bucally every 12 hrs m dd2 for 30 Days Aug, Next Appt Details Provider Name:Angella Park, 2020-11-26 09 :00:00 AM, [address] [place], [address], Insurance Providers Payer Name Payer Address Payer Phone Insured Name Patient Relati onship to Insured Coverage Start Date Coverage End Date [employer] GOLD [address] [address] [facility] [id number] CASEY KU [facility] [address] [address] [facility] [address] TELLY KU self
--- OUTSIDE RECORDS SUMMARY | 2020-11-17 00:45 | CCD | Continuity of Care Document ---
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 Iris Smallwood PA-C O nset: 09/04/2020 Hyperlipidemia Iris Smallwood PA-C Onset: 09/04/2020 Recurrent major depressive episodes Iris Smallwood PA-C Onse t: 09/04/2020 Low back pain Iris Smallwood PA-C Onset: 09/04/2020 Edema Iris Smallwood PA-C Onset: 09/04/2020 Essential hypertension Iris Smallwood PA-C Onset: 09/04/2020 Patient post percutaneous transluminal coronary angioplasty Iris Smallwood PA-C Onset: 09/04/2020 Allergic rhinitis Iris Smallwood PA-C Onset: 09/04/2020 Social History Type Date Description Comments Sex Unknown ETOH Use Rarely consumes alcohol Tobacco Use Start: Unknown End: Unknown Patient is a former smoker quit 2013 Recreational Drug Use Denies Drug Use Allergies, Adverse Reactions, Alerts Active Allergies Reaction Severity Comments Date Latex Itching 09/04/2020 Bee Sting anaphalaxis 09/04/2020 Medications Active Medications SIG Qnty Indications Ordering Provide r Date Oxygen Concentrator 10L With Tubing And Mask, ALL Supp lies Oxygen test in our office: Resting without o2: 86%, walking with 5L: 88%, walking with 6L: 92%, at rest with 6L 95% Harmony Harp MD 2019 Vitamin D3 Ultra Potency 1.25mg (19616 Ut) Tablets 1 tab by mouth every week 12tabs [place] Harp MD 10/06/2020 Bupropion HCL 75mg Tablets 1 by mouth twice a day 60tabs [place] Harp MD 09/12/2020 Claritin 10mg Tablets 1 by mouth every day 90tabs [place] Harp MD 09/04/2020 Alpha Lipoic Acid Extra Strength 600mg Capsules 1 tab by mouth every day Unknown Osteo Bi-Flex Advanced Triple Strength Tablets 1 tab by mouth every day Unknown Torsemide 20mg Tablets Take One Tablet By Mouth Every Day In The Morning Unknown 0 Hydrocodone-Acetaminophen 5-325mg Tablets take one tab p.o. twice daily Unknown Albuterol Sulfate HFA 108(90Base) mcg/Act Aerosol inhale 1 puff by mouth every 4 hours as needed 25.5gm [place] Harp MD Albuterol Sulfate (2 .5mg/3ML) 0.083% Nebulizer use with nebulizer twice a day as needed 90ml [place] Harp MD Preservision Areds 2 Areds 2 Capsu les (otc) Unknown QC Vitamin B12 5000mcg Tablets Sub (otc) Unknown Aspirin [address] 1 by mouth every day(otc) Unknown Metformin HCL 500mg Tablets 1 tab by mouth twice a day 60tabs [place] Harp MD Omeprazole 20mg Capsules DR 1 by mouth every day 30caps [place] Harp MD Pregabalin 75mg Capsules 1 tab by mouth every 8 hours 90caps [place] Harp MD Atorvastatin Calcium 40mg Tablets 1 by mouth every day 30tabs [place] Harp MD Azithromycin 250mg Tablets 1 tab by mouth every day 30tabs J95.4 [place] Harp MD Potassium Chloride ER 20Meq Tablet s ER 1 by mouth every day 30tabs [place] Harp MD 0 Tizanidine HCL 4mg Capsules 1/2 tab-1 tab by mouth three times a day as needed 30caps [place] crump MD Bisoprolol Fumarate 5mg Tablets 1 by mouth every day(Dr. Lr) Unknown 0 Immunizations CPT Code Status Date Vaccine Lot # [id number] Given 09/04/2020 Influenza (>= 6 Months) P.F. Vaccine [id number] Vital Signs Date Vital Result Comment 10/06/2020 1:52pm BP Systolic 120 mmHg BP Diastolic 80 mmHg Heart Rate 75 /min Body Temperature 98.5 F Respiratory Rate 16 /min O2 % BldC Oximetry 98 % oxygen set 5L Weight 161.38 lb Weight 73.200 kg Height 60 inches 5'0" BMI (Body Mass Index) 31.5 kg/m2 BSA (Body Surface Area) 1.70 m2 09/04/2020 3:42pm BP Systolic 124 mmHg BP Diastolic 82 mmHg Heart Rate 58 /min Body Temperature 96.0 F Respiratory Rate 16 /min O2 % BldC Oximetry 98 % O2 set at 4L Weight 161.50 lb Weight 73.256 kg Height 60 inches 5'0" BMI (Body Mass Index) 31.5 kg/m2 BSA (Body Surface Area) 1.70 m2 Results Test Acquired Date Facility Test Result H/L Range Note CBC With Differential 10/17/2020 [facility] CBC W/Automated Diff (SEE NOTE) 1, 2 WBC 12.6 10^3/uL High 4.2 - 11.0 RBC 4.75 10^6/uL 4.20 - 5.40 Hemoglobin 12.6 g/dL 12.0 - 16.0 Hematocrit 40.5 % 37.0 - 47.0 MCV 85.3 fL 81.0 - 101 MCH 26.5 pg Low 27.0 - 34.0 MCHC 31.1 g/dL 31.0 - 36.0 RDW 17.6 % High 11.5 - 14.5 Platelets 326 10^3/uL 150 - 450 MPV 10.2 fL 7.4 - 10.4 Neut 79.8 % 37.0 - 80.0 Lymph 10.5 % Low 25.0 - 40.0 Fajardo 6.3 % 3.0 - 8.0 Eos 2.2 % 0.0 - 7.0 Baso 0.7 % 0.0 - 2.5 %Ig 0.5 % High 0.0 - 0.0 %NRBC 0.0 % 0.0 - 0.0 #Neut 10.06 10^3/uL High 2.00 - 6.90 #Lymph 1.33 10^3/uL 0.60 - 3.40 #Fajardo 0.80 10^3/uL 0.00 - 0.90 #Eos 0.28 10^3/uL 0.00 - 0.70 #Baso 0.09 10^3/uL 0.00 - 0.20 #Ig 0.06 10^3/uL 0.00 - 0.10 #NRBC 0.00 10^3/uL 0.00 - 0.00 Manual Diff NOT INDICATED RBC Morph NOT INDICATED Urinalysis 10/17/2020 [facility] Urinalysis (SEE NOTE) 3 Source R Color yellow Normal: Yellow Clarity clear Normal: Clear Spec [place] 1.015 1.001 - 1.030 pH 5 5 - 9 Glucose NORM Normal: Negative Bilirubin NEG Normal: Negative Ketone NEG Normal: Negative Protein NEG Normal: Negative Nitrite NEG Normal: Negative Blood NEG Normal: Negative Leuk Est NEG Normal: Negative Urobilinogen NOR less than 1.0 mg/dL Microscopic Not Indicate Comprehensive Metabolic Panel 10/17/2020 [facility] ospital Comprehensive Metabo (SEE NOTE) 4 Sodium 142 mEq/L 134 - 153 Potassium 4.1 mEq/L 3.6 - 5.0 Chloride 103 mEq/L 98 - 107 Co2 26 mEq/L 22 - 30 Glucose 70 mg/dL 65 - 110 BUN 22 mg/dL High 7 - 21 Creatinine 1.2 mg/dL 0.7 - 1.5 BUN/Creat 18 8 - 27 Total Protein 6.5 g/dL 6.3 - 8.2 Albumin 4.3 g/dL 3.9 - 5.0 Globulin 2.2 GM/DL Low 2.4 - 3.2 A/G Ratio 2.0 0.8 - 2.0 Calcium 9.7 mg/dL 8.4 - 10.2 Total Bili <0.7 mg/dL 0.2 - 1.3 Alkaline Phos 139 U/L High 38 - 126 Sgot/Ast 20 U/L 5 - 40 SGPT/Alt 25 U/L 7 - 56 Anion Gap 13.0 mmol/L 8.0 - 16.0 Age 70 yrs Non-Aa GFR 47 mL/min Afr Amer GFR >60 5 Cve Panel 10/17/2020 [facility] Cve Panel (SEE NOTE) 6 Cholesterol 115 mg/dL Low 131 - 200 Triglycerides 183 mg/dL High 35 - 160 HDL 30 mg/dL 29 - 86 LDL 59 mg/dL Low 65 - 175 Risk Factor 3.8 3.2 - 4.4 LDL/HDL 1.97 1.47 - 3.22 7 Laboratory test finding 10/17/2020 [facility] Hgba1c 5.8 % 4.4 - 6.1 8 Vitamin D (25-Hydroxy) 27 NG/ML 9 TSH Highly Sensitive 3.37 uIU/mL 0.47 - 5.01 T4 - Free 1.28 ng/dL 0.93 - 1.70 Iron Binding Capacity 10/17/2020 [facility] Iron 70 g/dL 42 - 135 Uibc 224 g/dL 112 - 347 Tibc 294 g/dL 250 - 450 Iron Sat 24 % FT4&TSH Panel 09/16/2020 [facility] Thyroid Stimulating Hormone 2.180 uIU/ML Normal 0.358-3.740 Free T4 1.11 ng/dL Normal 0.76-1.46 Comprehensive Metabolic Profil 09/16/2020 [facility] Glucose, Fasting 101 mg/dL High 70-100 Blood Urea Nitrogen 15 mg/dL Normal 7-18 Creatinine For GFR 1.06 mg/dL Normal 0.55-1.30 Glomerular Filtration Rate 54.6 Normal >39 1 0 Sodium Level 141 mEq/L Normal 136-145 Potassium Serum 3.9 mEq/L Normal 3.5-5.1 Chloride Level 109 mEq/L High 98-107 Carbon Dioxide Level 24 mEq/L Normal 21-32 Anion Gap 8 mEq/L Normal 8-16 Calcium Level 9.5 mg/dL Normal 8.8-10.2 Ast/Sgot 10 U/L Normal 7-37 Alt/SGPT 16 U/L Normal 12-78 Alkaline Phosphatase 98 U/L Normal 45-117 Bilirubin,Total 0.7 mg/dL Normal 0.2-1.0 Total Protein 7.3 GM/DL Normal 6.4-8.2 Albumin 3.7 GM/DL Normal 3.2-5.2 Albumin/Globulin Ratio 1.0 Low 1.2-2.2 Laboratory test finding 09/16/2020 [facility] TSH Highly Sensitive <pending> T4 - Free <pending> Laboratory test finding 09/16/2020 [facility] Total 25(Oh) Vitamin D 13.6 NG/ML Low 30.0-100.0 Cve Panel 09/16/2020 [facility] Triglycerides Level 212 mg/dL High <150 Cholesterol Level 140 mg/dL Normal <200 HDL Cholesterol 40 mg/dL Normal >40 LDL Cholesterol 58 mg/dL Normal <100 Non-HDL-C 100 mg/dL Normal Cholesterol Risk Ratio 3.500 Normal <5 Hgba1c 09/16/2020 [facility] Hemoglobin A1c 5.7 % Normal 11 Estimated Average Glucose 117 mg/dL High 60-110 CBC W/Automated Diff 09/16/2020 [facility] White Blood Count 10.4 10 High 4.0-10.0 Red Blood Count 5.11 10 Normal 4.00-5.40 Hemoglobin 13.3 g/dL Normal 12.0-15.5 Hematocrit 42.4 % Normal 36.0-47.0 Mean Corpuscular Volume 83.0 fl Normal 80.0-96.0 Mean Corpuscular Hemoglobin 26.0 pg Low 27.0-33.0 Mean Corpuscular HGB Conc 31.4 g/dL Low 32.0-36.5 Red Cell Distribution Width 14.1 % Normal 11.5-14.5 Platelet Count, Automated 276 10 Normal 150-450 Neutrophils % 74.9 % High 36.0-66.0 Lymph % 13.9 % Low 24.0-44.0 [place] % 6.1 % High 0.0-5.0 Eos % 4.2 % High 0.0-3.0 Baso % 0.6 % Normal 0.0-1.0 Immature Granulocyte % 0.3 % Normal 0-3.0 Nucleated Red Blood Cell % 0.0 % Normal 0-0 Neutrophils # 7.8 10 Normal 1.5-8.5 Lymph # 1.4 10 Low 1.5-5.0 [place] # 0.6 10 Normal 0.0-0.8 Eos # 0.4 10 Normal 0.0-0.5 Baso # 0.1 10 Normal 0.0-0.2 Ua Routine 09/16/2020 [facility] Appearance, Urine CLEAR Normal Clear Color, Urine YELLOW Normal Yellow PH,Urine 5.0 units Normal 5.0-9.0 Specific [place] Urine Auto 1.015 Normal 1.002-1.035 Protein, Urine Auto NEGATIVE mg/dL Normal Negative Glucose, Urine (Ua) Auto NEGATIVE mg/dL Normal Negative Ketone, Urine Auto NEGATIVE mg/dL Normal Negative Urobilinogen, Urine Auto 0.2 mg/dL Normal 0.0-2.0 Bilirubin, Urine Auto NEGATIVE Normal Negative Nitrite, Urine Auto NEGATIVE Normal Negative Leukocyte Esterase, Urine Auto TRACE High Negative Blood, Urine Blood NEGATIVE Normal Negative WBC, Urine Auto 2 /HPF Normal 0-3 RBC, Urine Auto 0 /HPF Normal 0-3 Bacteria, Urine Auto NEGATIVE Normal Negative Squamous Epithelial Cell Ur AU 0 /HPF Normal 0-6 Hyaline Cast, Urine Auto 0 /LPF Normal 0-1 1 FASTING 12 HOUR~.~.~<DG1.3.1>Z00.01</DG1.3.1><DG1.3.1>I10</DG1.3.1><DG1.3.1>E11.9</DG1.3.1> <DG1.3 2 COMPLETE BLOOD COUNT 3 URINALYSIS 4 COMPREHENSIVE METABOLIC PANE L 5 Male GFR Interprentation 20-49 yrs >60 mL/min Normal 50-59 yrs >56 mL/min Normal 60-69 yrs >49 mL/min Normal 70-79yrs >42 mL/min Normal 80 and above >35 mL/min Normal Female GFR Interpretation 20-39 yrs >60 mL/min Normal 40-49 yrs >58 mL/min Normal 50-59 yrs >51 mL/min Normal 60-69 yrs >45 mL/min Normal 70-79 yrs >39 mL/min Normal 80 and above >32 mL/min Normal 6 LIPID PANEL 7 CVE RISK CHOL/HDL LDL/HDL MEN: 1/2 AVERAGE 3.43 1.00 AVERAGE 4.97 3.55 2X AVERAGE 9.55 6.25 3X AVERAGE 23.99 7.99 WOMEN: 1/2 AVERAGE 3.27 1.47 AVERAGE 4.44 3.22 2X AVERAGE 7.05 5.03 3X AVERAGE 11.04 6.14 8 {A1] {HB] 9 VITAMIN-D(25HYDROXY) Deficiency: <=20 ng/ml Insufficiency: 21-29 ng/ml Preferred level: => 30 ng/ml 10 Units are mL/min/1.73 m2 Chronic Kidney Disease Staging per NKF: Stage I & II GFR >=60 Normal to Mildly Decreased Stage III GFR 30-59 Moderately Decreased Stage IV GFR 15-29 Severely Decreased Stage V GFR <15 Very Little GFR Left ESRD GFR <15 on MAGNETIZER 11 REFERENCE RANGES: <=5.6% NORMAL 5.7-6.4% SUGGESTS IMPAIRED GLUCOSE META BOLISM/PREDIABETIC >= 6.5% ABNORMAL Procedures Date Code Description Status 09/04/2020 50266 Admin Patient Focused Health Ris k Assessment Instrument Completed 09/04/2020 38399 Brief Emotional/Beha v Assessment W/ Scoring Doc Per Standard Inst Completed Medical Devices Description No Information Available Encounters Description No Information Available Assessments Date Code Description Provider 10/06/2020 J95.4 Chemical pneumonitis due to vignesh beatty Iris Smallwood PA-C 09/04/2020 Z00.01 Encounter for genera l adult medical examination with abnormal findings Iris Smallwood PA-C 09/04/2020 J95.4 Chemical pneumonitis due to vignesh beatty Iris Smallwood PA-C 09/04/2020 J30.9 Allergic rhinitis, unspecified E scot Smallwood PA-C 09/04/2020 Z95.5 Presence of coronary angioplasty implant and graft Iris Smallwood PA-C 09/04/2020 I10 Essential (primary) hypertension Iris Smallwood PA-C 09/04/2020 E11.9 Type 2 diabetes mellitus without complications Iris Smallwood PA-C 09/04/2020 R60.0 Localized edema DANILO Scott 09/04/2020 M54.5 Low back pain DANILO Scott 09/04/2020 F33.9 Major depressive disorder, recur rent, unspecified Iris Smallwood PA-C 09/04/2020 E78.5 Hyperlipidemia, unspecified Carlita Smallwood PA-C 09/04/2020 K21.9 Gastro-esophageal reflux disease without esophagitis Iris Smallwood PA-C 09/04/2020 M85.80 Other specified diso rders of bone density and structure, unspecified site Iris Smallwood PA-C 09/04/2020 Z23 Encounter for immunization Iris Smallwood PA-C Plan of Treatment 10/06/2020 - Iris Smallwood PA-C* 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 Ordered for 10L concentrator. Following with steam drier operator. Continue with treatment per steam drier operator. * All * New Medication:* Oxygen Concentrator 10L With Tubing And Mask, ALL Supplies - Oxygen test in our office: Resting without o2: 86%, walking with 5L: 88%, walking with 6L: 92%, at rest with 6L 95% Pat * Vitamin D3 Ultra Potency 1.25 mg (02727 Ut) - 1 tab by mouth every week * Comments:* Recommended vitamin D supplementation.She is scheduled to have initial iron infusion. Functional Status Description No Information Available Mental Status Description No Information Available Referrals Description No Information Available
--- OUTSIDE RECORDS SUMMARY | 2020-11-17 00:46 | CCD | Continuity of Care Document ---
Author Author Patty RIVAS M.D. Organization Unknown Address [address] [place] [address] Phone [phone] Care Team Providers Care Esthetician/Owner Name Role Phone Maritza Strickland AUTM [phone] Iris Stokes P.A.-C AUTM [phone] Problems Description No Information Available Social History Type Date Description Comments Sex Unknown Cigarette Use Pack Years - 70 Tobacco Use Start: 10/31/66 End: 10/31/13 Patient is a forme r smoker 1-1.5 ppd x's 47 years Smoking Status Reviewed: 10/16/20 Patient is a former smoker 1- 1.5 ppd x's 47 years Allergies, Adverse Reactions, Alerts Description No Known Drug Allergies Medications Active Medications SIG Qnty Indications Ordering Provide r Date Omeprazole 20mg Capsules DR 1 by mouth every day 30caps R12 Amie Rivas M.D. 01/21/2020 Fluticasone Propionate 50mcg/Act Suspension 1 sprays each nostrils twice a day as needed 16gm J30.9 Amie Rivas M.D. 01/21/2020 Breo Ellipta 200-25mcg/Inh Aerosol 1 puff inhaled every day 60units Amie Rivas M.D. 0 Osteo Bi-Flex Advanced Triple Strength Tablets 1 tab by mouth every day Unknown Alpha Lipoic Acid 200mg Capsules 1 tab by mouth every day Unknown Claritin 10mg Tablets 1 tab by mouth every day Unknown Torsemide 20mg Tablets 2 tabs by mouth every day Unknown Tizanidine HCL 4mg Tablets 1 tab by mouth every night Unknown Potassium Chloride ER 20Meq Tablet s ER Take 1 Tablet By Mouth Once Daily Unknown Pregabalin 75mg Capsules 1 tab by mouth three times a day Carl Prabhakar, (DPM) Azithromycin 250mg Tablets 1 tab by mouth every day Unknown Hydrocodone-Acetaminophen 5-325mg Tablets Take 1 Tablet By Mouth Three Times Daily as Needed . DO Not Exceed 3 Per 24 Hours Unknown Autopap Device 4-11cm Unknown Oxygen Device 4L continuous Unknown Albuterol Sulfate (2 .5mg/3ML) 0.083% Nebulizer 1 vial four times a day as needed Unknown Ventolin HFA 108(90Base) mcg/Act A erosol 2 puffs qid/prn 54gm Unknown Metformin HCL 500mg Tablets 1 by mouth twice a day Unknown Aspirin Adult Low Dose 81mg Tablet s DR 1 by mouth every day Unknown Bupropion Hydrochloride ER (SR) 150mg Tablets ER 12HR 1/2 tab twice daily Unknown 00 Atorvastatin Calcium 40mg Tablets Once Daily Unknown History Medications Prednisone 10mg Tablets 4 tablets by mouth once daily for 5 days, then 3 tabs daily for 7 days, then 2 tabs daily for 7 days, then 1 tab daily for 7 days 42taAmie Kerr M.D. 08/27/2020 - 09/16/2020 Immunizations Description No Information Available Vital Signs Date Vital Result Comment 10/16/2020 10:26am BP Systolic 122 mmHg BP Diastolic 70 mmHg Heart Rate 83 /min O2 % BldC Oximetry 916 % Body Temperature 95.9 F Height 62 inches 5'2" Weight 165.00 lb verbla per the pt BMI (Body Mass Index) 30.2 kg/m2 [place] Body Weight 110 lb Weight 74.844 kg BSA (Body Surface Area) 1.76 m2 08/27/2020 1:00pm BP Systolic 118 mmHg BP Diastolic 70 mmHg Heart Rate 66 /min O2 % BldC Oximetry 974 % Body Temperature 97.1 F Height 62 inches 5'2" Weight 161.50 lb BMI (Body Mass Index) 29.5 kg/m2 [place] Body Weight 110 lb Weight 73.256 kg BSA (Body Surface Area) 1.75 m2 Results Description No Information Available Procedures Date Code Description Status 08/27/2020 93061 Spirometry Completed Medical Devices Description No Information Available Encounters Type Date Location Provider Dx Diagnosis Office Visit 08/27/2020 1:00p [facility] K Amie peters M.D. J84.9 Interstitial pulmonary disea se, unspecified Z87.891 Personal history of nicotine dependence J96.11 Chronic respiratory failure with hypoxia Z86.711 Personal history of pulmonar y embolism G47.30 Sleep apnea, unspecified I27.20 Pulmonary hypertension, unsp ecified Assessments Date Code Description Provider 10/16/2020 J84.9 Interstitial pulmonary disease, unspecified Amie Rivas M.D. 10/16/2020 Z87.891 Personal history of nicotine dep endence Amie Rivas M.D. 10/16/2020 J96.11 Chronic respiratory failure with hypoxia Amie Rivas M.D. 10/16/2020 Z86.711 Personal history of pulmonary em Amie Araya M.D. 10/16/2020 G47.33 Obstructive sleep apnea (adult) (pediatric) Amie Rivas M.D. 08/27/2020 J84.9 Interstitial pulmonary disease, unspecified Amie Rivas M.D. 08/27/2020 Z87.891 Personal history of nicotine dep marinence Amie Rivas M.D. 08/27/2020 J96.11 Chronic respiratory failure with hypoxia Amie Rivas M.D. 08/27/2020 Z86.711 Personal history of pulmonary em estrellitaism Amie Rivas M.D. 08/27/2020 G47.30 Sleep apnea, unspecified Amie Rivas M.D. 08/27/2020 I27.20 Pulmonary hypertension, unspecif ied Amie Rivas M.D. Plan of Treatment Future Appointment(s):* 12/22/2020 11:00 am - Amie Rivas M.D. at [facility] * 10/31/2020 7:45 pm - [facility] at [facility] 10/16/2020 - Amie Rivas M.D.* J84.9 Interstitial pulmonary disease, unspecified * Z87.891 Personal history of nicotine dependence * J96.11 Chronic respiratory failure with hypoxia * Z86.711 Personal history of pulmonary embolism * G47.33 Obstructive sleep apnea (adult) (pediatric) * * New Orders:* Pulmonary Rehab Referral, Ordered: 10/16/20 * Bubbler for humidity for O2, Ordered: 10/16/20 * Oxygen, Ordered: 10/16/20 * Comments:* 1. Diagnostic testing was reviewed with the patient in detail. 2. A titration study was recommended and the testing process was reviewed with the patient.3. I reviewed the importance of compliance with therapy once prescribed and the potential loss of equipment if she is not compliant. * Follow up:* 1. Follow up 50 days after her titration study with a compliance download. 2. She was encouraged to call the office sooner if she finds she is having difficulties with pressure therapy. Functional Status Functional Condition Comment Date Status Independent with all ADL's Activ e Independent with all IADL's Acti ve Mental Status Mental Condition Comment Date Status None Active Referrals Refer to Reason for Referral Status Appt Date Radiology/Procedure no auth required [id number] Closed Dany Valadez M.D. 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 hx CAD and also severe PH on chronic NC O2. referal for her PH Scheduled 09/29/[address], [address] [place], [place] [address] [phone]
--- OUTSIDE RECORDS SUMMARY | 2020-11-17 00:46 | CCD | Continuity of Care Document ---
Author Author Patty SMALLWOOD PA-C Organization Unknown Address [address] [place] [address] Phone [phone] Care Team Providers Care Hand Stone Polisher Name Role Phone Iris Smallwood PA-C AUTM [phone] Problems Active Problems Provider Date Chemical pneumonitis [...] SIG Qnty Indications Ordering Provide r Date Bupropion HCL 75mg Tablets 1 by mouth [...] times a day as needed 30caps [place] Argueta ateMD brandy Bisoprolol Fumarate 5mg Tablets 1 by mouth every day(Dr. Lr) Unknown 0 Immunizations CPT Code Status Date Vaccine Lot # [id number] Given 09/04/2020 Influenza (>= 6 Months) P.F. [...] Date Facility Test Result H/L Range Note Ua Routine 09/16/[address] [facility] Appearance, Urine CLEAR Normal Clear Color, Urine YELLOW Normal Yellow PH,Urine 5.0 units Normal 5.0-9.0 Specific [place] Urine Auto 1.015 Normal 1.002-1.035 Protein, Urine [...] Cast, Urine Auto 0 /LPF Normal 0-1 CBC W/Automated Diff 09/16/[address] [facility] White Blood Count 10.4 10 High 4.0-10.0 [...] 36.0-66.0 Lymph % 13.9 % Low 24.0-44.0 [place] % 6.1 % High 0.0-5.0 Eos % 4.2 % High 0.0-3.0 Baso % 0.6 % Normal 0.0-1.0 Immature Granulocyte % 0.3 % Normal 0-3.0 Nucleated Red Blood Cell % 0.0 % Normal 0-0 Neutrophils # 7.8 10 Normal 1.5-8.5 Lymph # 1.4 10 Low 1.5-5.0 [place] # 0.6 10 Normal 0.0-0.8 Eos # 0.4 10 Normal 0.0-0.5 Baso # 0.1 10 Normal 0.0-0.2 Hgba1c 09/16/[address] [facility] Hemoglobin A1c 5.7 % Normal 1 Estimated Average Glucose 117 mg/dL High 60-110 Cve Panel 09/16/[address] [facility] Triglycerides Level 212 mg/dL High <150 Cholesterol Level 140 mg/dL Normal <200 HDL Cholesterol 40 mg/dL Normal >40 LDL Cholesterol 58 mg/dL Normal <100 Non-HDL-C 100 mg/dL Normal Cholesterol Risk Ratio 3.500 Normal <5 Laboratory test finding 09/16/[address] [facility] Total 25(Oh) Vitamin D 13.6 NG/ML Low 30.0-100.0 Laboratory test finding 09/16/[address] [facility] TSH Highly Sensitive <pending> T4 - Free <pending> Comprehensive Metabolic Profil 09/16/[address] [facility] Glucose, Fasting 101 mg/dL High 70-100 Blood Urea Nitrogen 15 mg/dL Normal 7-18 Creatinine For GFR 1.06 mg/dL Normal 0.55-1.30 Glomerular Filtration Rate 54.6 Normal >39 2 Sodium Level 141 mEq/L Normal 136-145 Potassium [...] Normal 3.2-5.2 Albumin/Globulin Ratio 1.0 Low 1.2-2.2 FT4&TSH Panel 09/16/[address] [facility] Thyroid Stimulating Hormone 2.180 uIU/ML Normal 0.358-3.740 Free T4 1.11 ng/dL Normal 0.76-1.46 1 REFERENCE RANGES: <=5.6% NORMAL 5.7-6.4% SUGGESTS IMPAIRED GLUCOSE META BOLISM/PREDIABETIC >= 6.5% ABNORMAL 2 Units are mL/min/1.73 m2 Chronic Kidney Disease Staging per NKF: Stage I & II GFR >=60 Normal to Mildly Decreased Stage III GFR 30-59 Moderately Decreased Stage IV GFR 15-29 Severely Decreased Stage V GFR <15 Very Little GFR Left ESRD GFR <15 on TABLET MAKING MACHINE OPERATOR HELPER Procedures Date Code Description Status 09/04/2020 37264 Admin Patient Focused Health Ris k Assessment Instrument Completed 09/04/2020 60865 Brief Emotional/Beha v Assessment W/ Scoring Doc Per Standard Inst Completed Medical Devices Description No Information Available Encounters Description No Information Available Assessments Date Code Description Provider 09/04/2020 Z00.01 Encounter for genera l adult medical examination with abnormal findings Iris Smallwood PA-C 09/04/2020 J95.4 Chemical pneumonitis due to anes thesia Iris Smallwood PA-C 09/04/2020 J30.9 Allergic rhinitis, [...] immunization Iris Smallwood PA-C Plan of Treatment No Information Available Functional Status Description No Information Available Mental Status Description No Information Available Referrals Description No Information Available
--- OUTSIDE RECORDS SUMMARY | 2020-11-17 00:46 | CCD ---
Author Author [facility] Syst ems Organization [facility] ems Address Unknown Phone Unavailable Care Team Providers Care Dental Insurance Biller Name Role Phone Hiram Marcial Unavailable PROBLEMS Type Condition ICD9-CM Code [id number] Code Onset Dates Condition S tatus SNOMED Code Notes Problem Other chronic pain G89.29 Active 08753530 Problem Controlled type 2 diabetes m ellitus without complication, without long- term current use of insulin E11.9 Active 31505163 4 Problem Mixed hyperlipidemia E78.2 Active 809535770 Problem Coronary artery disease invo lving mechoopda coronary artery of mechoopda heart without angina pectoris I25.10 Active 741262074062 7 Problem Interstitial lung disease J84.9 Active 681665 007 Problem ABRAHAM (obstructive sleep apnea) G47.33 Active 78 919207 Problem Gastroesophageal reflux disease, esophagitis pre sence not specified K21.9 Active 179518200 Problem Lumbago with sciatica, unspecified side M54.40 Active 247679865 Problem Intervertebral disc disorders with radiculopathy , lumbar region M51.16 Active 545391956365144 Problem Myalgia, other site M79.18 Active 35701381 Problem Cor pulmonale I27.81 Active 40646618 Problem Lumbago with sciatica, right side M54.41 Active 170837733 Problem Secondary osteoporosis M81.8 Active 331397290 Problem Essential hypertension I10 Active 72885800 Problem Seasonal allergies J30.2 Active 377689774 Problem Bee sting allergy Z91.030 Active 121925405 Problem Spinal stenosis of lumbar region with neurogenic harvey ication M48.062 Active 65587818 Problem Lumbar spinal stenosis M48.061 Active 97624762 ALLERGIES Allergen (clinical drug ingredient) Drug/Non Drug Allergy do cumented on EMR Reaction Allergy Type Onset Date Status Latex Gloves([facility] Code:43575-90177) Rash/ITCHING Drug Aller gy Active Bee Stings Anaphylaxis Non Drug Allergy Active ENCOUNTERS from 1950 to 2020-10-06 Encounter Location Date [facility] [address] [place] [id number] 08 Jul, 2020 Hiram Aggie Interstitial lung disease J84.9 ; Second imani osteoporosis M81.8 ; Controlled type 2 diabetes mellitus without complication, without long-term current use of insulin E11.9 ; Cor pulmonale I27.81 ; Coronary artery disease involving mechoopda coronary artery of mechoopda heart without angina pectoris I25.10 and Mixed hyperlipidemia E78.2 IMMUNIZATIONS Vaccine Route Administration Date Status Influenza (18 yrs & older) Flublok IM Intramuscular Aug 22, 2019 Administered SOCIAL HISTORY Tobacco Use: Social History Observation Description Date Details (start date - stop date) Former Smoker Sex Assigned At : Social History Observation Description Sex Assigned At Unknown Education: Question Answer Notes Level of Education: College Language: Question Answer Notes Languages spoken: Macedonian Yazidism: Question Answer Notes Yazidism 24 [facility] Sexual Hx: Question Answer Notes Had sex in the last 12 months (vaginal, oral, or anal)? No LMP: 1988 Partial Hysterectomy Have you ever had an [...] day for 90 day(s) Jul, Active Nystatin 790585 UNIT/GM 1 application Externally to groin Twice [...] Orally twice a day for 30 Active Belbuca 150 MCG 1 film to the gum Bucally every 12 hrs mdd2 for 30 Days Aug, Active Hydrocodone-Acetaminophen 5-325 MG 1 tablet as needed Orally Every 8 hours when necessary MDD 3 for 30 Days Jul, Acti ve Aspirin 81 81 MG 1 tablet Orally Once a day for 30 day(s) Active Bisoprolol Fumarate 5 MG 1/2 tablet Orally Once a day Active Albuterol Sulfate HFA 108 (90 Base) MCG/ACT 2 puffs In halation QID prn SOB/wheeze Sep, Active Omeprazole 20 MG 1 capsule 30 minutes before morning meal Orally Once a day for 30 day(s) Mar, Active BuPROPion HCl ER (SR) 150 MG 1 tablet Orally Twice a day for 30 Active Cetirizine HCl 10 MG 1 tablet Orally [...] Information RESULTS No Results REASON FOR VISIT 3 month follow up MEDICAL (GENERAL) HISTORY Type Description Date Medical History HTN, goal < 130/80 per ACC/AHA Medical History Hyperlipidemia Medical History Type 2 DM, goal HbA1c < 6.5 Medical History Interstitial Lung disease - Dr. Dickens Medical History Chronic low back pain - pain management Medical History CAD with [place] 2013, stent - cardiology Medical History Depression Medical History Hx of Migraines - Neurology Medical History ABRAHAM - on CPAP Surgical History appendectomy 1966 Surgical History C section x2 1979. 1985 Surgical History Bilateral foot surgery 1987 Surgical History partial hysterectomy 1988 Surgical History colonoscopy with polypectomy 2011 Surgical History Right rotator cuff tear repair 2013 Surgical History heart stent 2013 Surgical History lung biopsy 2018 Surgical History Lasik surgery bilateral eyes 2017 Surgical History colonoscopy, reportedly diverticulosis b ut no polyps 2017 Surgical History lung biopsies [id number] Hospitalization History pneumonia, Hypoxia 12/2018,12/2018, Hospitalization History SURGERIS Hospitalization History SOB/Flud retension 03/2020 Goals Section No Information Health Concerns No Information MEDICAL EQUIPMENT No Information MENTAL STATUS No Information FUNCTIONAL STATUS No Information ASSESSMENTS Encounter Date Diagnosis Assessment Notes Treatment Notes Treatm ent Clinical Notes Jul, Interstitial lung disease (ICD-10 - J84.9) She is requesting referral to [facility] through [facility] in [place]. I do think we are the resources necessary to take care of her here in our community and I told him this, however, I will initiate the referral per the request. Jul, Secondary osteoporosis (ICD-10 - M81.8) Jul, Controlled type 2 diabetes armen hurstitus without complication, without long-term current use of insulin (ICD-10 - E11.9) We gave her a One Touch Vario Flex meter and some initial supplies. I will order labs to be done before the next office visit. Jul, Cor pulmonale (ICD-10 - I27.81) She is following with both cardio and pulm. She is a little more dyspenic recently and this is a part of why she is requesting a referral to [facility]. Jul, Coronary artery disease invo lving mechoopda coronary artery of mechoopda heart without angina pectoris (ICD-10 - I25.10) She has been followed by Dr. Lr they are working on stress testing. Jul, Mixed hyperlipidemia (ICD-10 - E78.2) I ordered labs for prior to the next office visit. PLAN OF TREATMENT Medication Medication Name Sig Start Date Stop Date Butrans 10 MCG/HR 1 patch to skin Transdermal Q 7 DAYS=MDD for 30 Days Jul, Rolling Walker 1 with seat as directed Dx: M51.16 Jul, Belbuca 150 MCG 1 film to the gum Bucally every 12 hrs m dd2 for 30 Days Aug, Hydrocodone-Acetaminophen 5-325 MG 1 tablet as needed Orally Every 8 hours when necessary MDD 3 for 30 Days Jul, Treatment Notes Assessment Notes Clinical Notes Interstitial lung disease She is request ing referral to [facility] through [facility] in [place]. I do think we are the resources necessary to take care of her here in our community and I told him thi s, however, I will initiate the referral per the request. Controlled type 2 diabetes mellitus with out complication, without long-term current use of insulin We gave her a One Touch Vari o Flex meter and some initial supplies. I will order labs to be done before the next office visit. Cor pulmonale She is following wit h both cardio and pulm. She is a little more dyspenic recently and this is a part of why she is requesting a referral to [facility]. Coronary artery disease involving mechoopda coronary artery of mechoopda heart without angina pectoris She has been followed by Dr. Lr they are working on stress testing. Mixed hyperlipidemia I ordered labs for prior to the next office visit. Future Test Test Name Order Date Comprehensive Metabolic Profile (CMP) [id number] LIPID PANEL (CARDIAC RISK) [id number] HEMOGLOBIN A1c [id number] MICROALBUMIN RANDOM [id number] Next Appt Details 4 Weeks with Abhay (review labs, chec k on referral status), 2 months with Aggie Reason:follow-up interstitial lung disease Provider Name:Hiram Marcial, 2020-09-30 8 01:30:00 PM, [address] [place], [address], Provider Name:Angella Park, 2020-11-26 09 :00:00 AM, [address] [place], [address], Follow Up:4 Weeks with Abhay (review labs, check on referral status), 2 months with Maxow-up interstitial lung disease Insurance Providers Payer Name Payer Address Payer Phone Insured Name Patient Relati onship to Insured Coverage Start Date Coverage End Date [facility] [address] [address] [facility] [address] TELLY KU self HU[employer] GOLD [address] [address] [facility] [address] CASEY KU self
--- OUTSIDE RECORDS SUMMARY | 2020-11-17 00:46 | CCD ---
Author Author [facility] Syst ems Organization [facility] ems Address Unknown Phone Unavailable Care Team Providers Care Clinic Scheduler Name Role Phone Hiram Marcial Unavailable PROBLEMS Type Condition ICD9-CM Code [id number] Code Onset Dates Condition S tatus SNOMED Code Notes Problem Other chronic pain G89.29 Active 00503473 Problem Controlled type 2 diabetes m ellitus without complication, without long- term current use of insulin E11.9 Active 18409379 4 Problem Mixed hyperlipidemia E78.2 Active 158469027 Problem Coronary artery disease invo lving [place] coronary artery of [place] heart without angina pectoris I25.10 Active 339053236208 7 Problem Interstitial lung disease J84.9 Active 931306 007 Problem ABRAHAM (obstructive sleep apnea) G47.33 Active 78 928505 Problem Gastroesophageal reflux disease, esophagitis pre sence not specified K21.9 Active 613011495 Problem Lumbago with sciatica, unspecified side M54.40 Active 637644308 Problem Intervertebral disc disorders with radiculopathy , lumbar region M51.16 Active 374615107731245 Problem Myalgia, other site M79.18 Active 42542065 Problem Cor pulmonale I27.81 Active 76074308 Problem Lumbago with sciatica, right side M54.41 Active 588015357 Problem Secondary osteoporosis M81.8 Active 089555670 Problem Essential hypertension I10 Active 36985542 Problem Seasonal allergies J30.2 Active 383563722 Problem Bee sting allergy Z91.030 Active 096313862 Problem Spinal stenosis of lumbar region with neurogenic harvey ication M48.062 Active 12321067 Problem Lumbar spinal stenosis M48.061 Active 55068559 ALLERGIES Allergen (clinical drug ingredient) Drug/Non Drug Allergy do cumented on EMR Reaction Allergy Type Onset Date Status Latex Gloves([facility] Code:67768-90677) Rash/ITCHING Drug Aller gy Active Bee Stings Anaphylaxis Non Drug Allergy Active ENCOUNTERS from 1950 to 2020-11-02 Encounter Location Date Provider Diagnosis [facility] [place] [address] [place] [phone] Jul, Hiram Marcial IMMUNIZATIONS Vaccine Route Administration Date Status Influenza (18 yrs & older) Flublok IM Intramuscular Aug 22, 2019 Administered SOCIAL HISTORY Tobacco Use: Social History Observation Description Date Details (start date - stop date) Former Smoker Sex Assigned At : Social History Observation Description Sex Assigned At Unknown Education: Question Answer Notes Level of Education: College Language: Question Answer Notes Languages spoken: Luxembourger Adventism: Question Answer Notes Adventism 24 Restorationism Sexual Hx: Question Answer Notes Had sex [...] day for 90 day(s) Jul, Active Nystatin 027808 UNIT/GM 1 application Externally to groin Twice [...] hrs mdd2 for 30 Days Aug, Active EpiPen 2-Hank 0.3 MG/0.3ML as directed intramuscularly once p rn for anaphylaxis Mar, Active Butrans 10 MCG/HR 1 patch to skin Transdermal Q 7 DAYS=MDD for 3 0 Days Jul, Active Bisoprolol Fumarate 5 MG 1/2 tablet Orally Once a day Active Albuterol Sulfate HFA 108 (90 Base) MCG/ACT 2 puffs In halation QID prn SOB/wheeze Sep, Active Atorvastatin Calcium 40 MG 1 tablet orally Daily for 90 days Active BuPROPion HCl ER (SR) 150 MG 1 tablet Orally Twice a day for 30 Active Cetirizine HCl 10 MG 1 tablet Orally Once a day for 30 day(s) Dec, Active Vitamin B12 _ 1 tablet Orally Once a day Active Aspirin 81 81 MG 1 tablet Orally Once a day for 30 day(s) Active Pregabalin 50 MG 1 capsule Orally every 8 hours Active Omeprazole 20 MG 1 capsule 30 minutes before morning meal Orally Once a day for 30 day(s) Mar, Active Hydrocodone-Acetaminophen 5-325 MG 1 tablet as needed Orally Every 8 hours when necessary MDD 3 for 30 Days Sep, Acti ve Furosemide 20 MG 40 mg orally Daily Mar, Active Rolling Walker 1 with seat as directed Dx: M51.16 Jul, Active Albuterol Sulfate (2.5 MG/3ML) 0.083% 3 ml Inhalation every 4 hours as needed for SOB Mar, Active Azithromycin 250 MG 1 tab Orally Once a day for 30 days Active PROCEDURES No Information RESULTS No Results REASON FOR VISIT Urgent! MEDICAL (GENERAL) HISTORY Type Description Date Medical History HTN, goal < 130/80 per ACC/AHA Medical History Hyperlipidemia Medical History Type 2 DM, goal HbA1c < 6.5 Medical History Interstitial Lung disease - Dr. Dickens Medical History Chronic low back pain - pain management Medical History CAD with [place] 2014, stent - cardiology Medical History Depression Medical History Hx of Migraines - Neurology Medical History ABRAHAM - on CPAP Surgical History appendectomy 1967 Surgical History C section x2 1980. 1986 Surgical History Bilateral foot surgery 1987 Surgical History partial hysterectomy 1987 Surgical History colonoscopy with polypectomy 2011 Surgical History Right rotator cuff tear repair 2013 Surgical History heart stent 2013 Surgical History lung biopsy 2017 Surgical History Lasik surgery bilateral eyes 2017 Surgical History colonoscopy, reportedly diverticulosis b ut no polyps 2017 Surgical History lung biopsies [phone] Hospitalization History pneumonia, Hypoxia 12/2018,12/2018, Hospitalization History SURGERIS Hospitalization History SOB/Flud retension 03/2020 Goals Section No Information Health Concerns No Information MEDICAL EQUIPMENT No Information MENTAL STATUS No Information FUNCTIONAL STATUS No Information ASSESSMENTS No Information PLAN OF TREATMENT Medication Medication Name Sig Start Date Stop Date Hydrocodone-Acetaminophen 5-325 MG 1 tablet as needed Orally Every 8 hours when necessary MDD 3 for 30 Days Sep, Rolling Walker 1 with seat as directed Dx: M51.16 Jul, Belbuca 150 MCG 1 film to the gum Bucally every 12 hrs m dd2 for 30 Days Aug, Butrans 10 MCG/HR 1 patch to skin Transdermal Q 7 DAYS=MDD for 30 Days Jul, Next Appt Details Provider Name:Angella Park, 2020-11-26 09 :00:00 AM, [address] [place], [address], Insurance Providers Payer Name Payer Address Payer Phone Insured Name Patient Relati onship to Insured Coverage Start Date Coverage End Date [employer] GOLD [address] [address] [facility] [phone] CASEY KU self [facility] [address] [address] [facility] [id number] TELLY KU self
--- OUTSIDE RECORDS SUMMARY | 2020-11-17 00:46 | CCD ---
Continuity of Care Document (CCD) Created on: 10/16/2020 aPtty Sweeney External Reference #: [id number] : 1950 Sex: Female Author Author Patty RIVAS M.D. Organization Unknown Address [address] [place] [address] Phone [phone] Care Team Providers Care Self Storage Manager Name Role Phone Maritza Strickland AUTM [phone] Iris Stokes P.A.-C AUTM [phone] Problems Description No Information Available Social History [...] pt BMI (Body Mass Index) 30.2 kg/m2 Gardner Body Weight 110 lb Weight 74.844 kg BSA (Body Surface Area) 1.76 m2 08/27/2020 1:00pm BP Systolic 118 mmHg BP Diastolic 70 mmHg Heart Rate 66 /min O2 % BldC Oximetry 974 % Body Temperature 97.1 F Height 62 inches 5'2" Weight 161.50 lb BMI (Body Mass Index) 29.5 kg/m2 Gardner Body Weight 110 lb Weight 73.256 kg BSA (Body Surface Area) 1.75 m2 Results Description No Information Available Procedures Date Code Description Status 08/27/2020 12152 Spirometry Completed Medical Devices Description No Information Available Encounters Type Date Location Provider Dx Diagnosis Office Visit 08/27/2020 1:00p [facility] K Amie peters M.D. J84.9 Interstitial [...] 11:00 am - Amie Rivas M.D. at [facility] * 10/31/2020 7:45 pm - [facility] at [facility] 10/16/2020 - Amie Rivas M.D.* J84.9 Interstitial pulmonary disease, unspecified * Z87.891 Personal history of nicotine dependence * J96.11 Chronic respiratory failure with hypoxia * Z86.711 Personal history of pulmonary embolism * G47.33 Obstructive sleep apnea (adult) (pediatric) * * New Orders:* Pulmonary Rehab Referral, Ordered: 10/16/20 * Comments:* 1. Diagnostic testing [...] Status Appt Date Radiology/Procedure no auth required [id number] Closed Dany Valadez M.D. 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 hx CAD and also severe PH on chronic [place] O2. referal for her PH Scheduled 09/29/[address], [address] [place], [place] [address] [phone]
--- OUTSIDE RECORDS SUMMARY | 2020-11-17 00:46 | CCD ---
Author Author [facility] Sy[facility] ems Organization [facility] ems Address Unknown Phone Unavailable Care Team Providers Care Diagrammer And Seamer Name Role Phone Haris Thompson Unavailable PROBLEMS Type Condition ICD9-CM Code ORC25-JS Code Onset Dates Condition S tatus SNOMED Code Notes Problem Other chronic pain G89.29 Active 60806875 Problem Controlled type 2 diabetes m ellitus without complication, without long- term current use of insulin E11.9 Active 99404625 4 Problem Mixed hyperlipidemia E78.2 Active 055731235 Problem Coronary artery disease invo lving ione coronary artery of ione heart without angina pectoris I25.10 Active 268281968734 7 Problem Interstitial lung disease J84.9 Active 977303 007 Problem ABRAHAM (obstructive sleep apnea) G47.33 Active 78 678266 Problem Gastroesophageal reflux disease, esophagitis pre sence not specified K21.9 Active 533884393 Problem Lumbago with sciatica, unspecified side M54.40 Active 256498850 Problem Intervertebral disc disorders with radiculopathy , lumbar region M51.16 Active 870248600872311 Problem Myalgia, other site M79.18 Active 61524488 Problem Cor pulmonale I27.81 Active 44658327 Problem Lumbago with sciatica, right side M54.41 Active 201972403 Problem Secondary osteoporosis M81.8 Active 504939728 Problem Essential hypertension I10 Active 85697813 Problem Seasonal allergies J30.2 Active 756812772 Problem Bee sting allergy Z91.030 Active 981375397 Problem Spinal stenosis of lumbar region with neurogenic harvey ication M48.062 Active 87847289 Problem Lumbar spinal stenosis M48.061 Active 03147901 ALLERGIES Allergen (clinical drug ingredient) Drug/Non Drug Allergy do cumented on EMR Reaction Allergy Type Onset Date Status Latex Gloves([facility] Code:96351-41681) Rash/ITCHING Drug Aller gy Active Bee Stings Anaphylaxis Non Drug Allergy Active ENCOUNTERS from 1950 to 2020-10-09 Encounter Location Date Provider Diagnosis [facility] [address] [place] [address] Sep, Haris Thompson Lumbar spinal stenosis M48.061 IMMUNIZATIONS [...] College Language: Question Answer Notes Languages spoken: Salvadorean Uatsdin: Question Answer Notes Uatsdin 24 Confucianism Sexual Hx: Question Answer Notes Had sex [...] day for 90 day(s) Jul, Active Nystatin 544449 UNIT/GM 1 application Externally to groin Twice [...] 1 with seat as directed Dx: M51.16 15 Jul, 2020 Active Albuterol Sulfate (2.5 MG/3ML) 0.083% 3 ml Inhalation every 4 hours as needed for SOB Mar, Active Azithromycin 250 MG 1 tab Orally Once a day for 30 days Active PROCEDURES No Information RESULTS No Results REASON FOR VISIT refill hydrocodone/acetaminophen MEDICAL (GENERAL) HISTORY Type Description Date Medical History HTN, goal < 130/80 per ACC/AHA Medical History Hyperlipidemia Medical History Type 2 DM, goal HbA1c < 6.5 Medical History Interstitial Lung disease - Dr. Dickens Medical History Chronic low back pain - pain management Medical History CAD with [place] 2014, stent - cardiology Medical History Depression Medical History Hx of Migraines - Neurology Medical History ABRAHAM - on CPAP Surgical History appendectomy 1967 Surgical History C section x2 1980. 1985 Surgical History Bilateral foot surgery 1987 Surgical History partial hysterectomy 1987 Surgical History colonoscopy with polypectomy 2011 Surgical History Right rotator cuff tear repair 2014 Surgical History heart stent 2014 Surgical History lung biopsy 2018 Surgical History Lasik surgery bilateral eyes 2017 Surgical History colonoscopy, reportedly diverticulosis b ut no polyps 2017 Surgical History lung biopsies 7706-8989 Hospitalization History pneumonia, Hypoxia 12/2018,12/2018, Hospitalization History SURGERIS Hospitalization History SOB/Flud retension 03/2020 Goals Section No Information Health Concerns No Information MEDICAL EQUIPMENT No Information MENTAL STATUS No Information FUNCTIONAL STATUS No Information ASSESSMENTS Encounter Date Diagnosis Assessment Notes Treatment Notes Treatm ent Clinical Notes Sep, Lumbar spinal stenosis (ICD-10 - M48.061) PLAN [...] 30 Days Jul, Next Appt Details Provider Name:Hiram Marcial, 2020-09-30 8 01:30:00 PM, [address] [place], [address], Provider Name:Angella Park, 2020-11-26 09 :00:00 AM, [address] [place], [address], Insurance Providers Payer Name Payer Address Payer Phone Insured Name Patient Relati onship to Insured Coverage Start Date Coverage End Date [facility] [address] [address] [facility] [address] [address] KU self HU[employer] GOLD [address] [address] [facility] [id number] CASEY KU self
--- OUTSIDE RECORDS SUMMARY | 2020-11-17 00:46 | CCD ---
Author Author [facility] Syst ems Organization [facility] ems Address Unknown Phone Unavailable Care Team Providers Care Certified Wellness Program Coordinator Name Role Phone Angella Park Unavailable PROBLEMS Type Condition ICD9-CM Code RKS32-GR Code Onset Dates Condition S tatus SNOMED Code Notes Problem Other chronic pain G89.29 Active 97871561 Problem Controlled type 2 diabetes m ellitus without complication, without long- term current use of insulin E11.9 Active 12571175 4 Problem Mixed hyperlipidemia E78.2 Active 472957989 Problem Coronary artery disease invo lving [place] coronary artery of [place] heart without angina pectoris I25.10 Active 336023900433 7 Problem Interstitial lung disease J84.9 Active 704050 007 Problem ABRAHAM (obstructive sleep apnea) G47.33 Active 78 080766 Problem Gastroesophageal reflux disease, esophagitis pre sence not specified K21.9 Active 672797994 Problem Lumbago with sciatica, unspecified side M54.40 Active 969181542 Problem Intervertebral disc disorders with radiculopathy , lumbar region M51.16 Active 726205436194948 Problem Myalgia, other site M79.18 Active 47859105 Problem Cor pulmonale I27.81 Active 52705674 Problem Lumbago with sciatica, right side M54.41 Active 724803978 Problem Secondary osteoporosis M81.8 Active 799938020 Problem Essential hypertension I10 Active 33428910 Problem Seasonal allergies J30.2 Active 005819719 Problem Bee sting allergy Z91.030 Active 856820374 Problem Spinal stenosis of lumbar region with neurogenic harvey ication M48.062 Active 44441371 Problem Lumbar spinal stenosis M48.061 Active 79503408 ALLERGIES Allergen (clinical drug ingredient) Drug/Non Drug Allergy do cumented on EMR Reaction Allergy Type Onset Date Status Latex Gloves([facility] Code:24552-61106) Rash/ITCHING Drug Aller gy Active Bee Stings Anaphylaxis Non Drug Allergy Active ENCOUNTERS from 1950 to 2020-10-04 Encounter Location Date Provider Diagnosis [facility] [address] [place] [address] Sep, Angella Park IMMUNIZATIONS Vaccine Route Administration Date Status Influenza (18 yrs & older) Flublok IM Intramuscular Aug 22, 2019 Administered SOCIAL HISTORY Tobacco Use: Social History Observation Description Date Details (start date - stop date) Former Smoker Sex Assigned At : Social History Observation Description Sex Assigned At Unknown Education: Question Answer Notes Level of Education: College Language: Question Answer Notes Languages spoken: Malaysian Shinto: Question Answer Notes Shinto 24 Anabaptism Sexual Hx: Question Answer Notes Had sex [...] day for 90 day(s) Jul, Active Nystatin 692458 UNIT/GM 1 application Externally to groin Twice [...] when necessary MDD 3 for 30 Days 28 Oct, 2020 Acti ve Aspirin 81 81 MG 1 [...] Information RESULTS No Results REASON FOR VISIT [place] [employer]MS MEDICAL (GENERAL) HISTORY Type Description Date Medical History HTN, goal < 130/80 per ACC/AHA Medical History Hyperlipidemia Medical History Type 2 DM, goal HbA1c < 6.5 Medical History Interstitial Lung disease - Dr. Dickens Medical History Chronic low back pain - pain management Medical History CAD with [place] 2013, stent - cardiology Medical History Depression [...] heart stent 2014 Surgical History lung biopsy 2017 Surgical History Lasik surgery bilateral eyes 2017 Surgical History colonoscopy, reportedly diverticulosis b ut no polyps 2017 Surgical History lung biopsies [id number] Hospitalization History pneumonia, Hypoxia 12/2018,12/2018, Hospitalization History [...] necessary MDD 3 for 30 Days Jul, Next Appt Details Provider Name:Hiram Marcial, 2020-09-30 8 01:30:00 PM, [address] [place], [address], Provider Name:Angella Park, 2020-11-26 09 :00:00 AM, [address] [place], [address], Insurance Providers Payer Name Payer Address Payer Phone Insured Name Patient Relati onship to Insured Coverage Start Date Coverage End Date [facility] [address] [address] [facility] [id number] TELLY KU self HUMANA GOLD [address] [address] [facility] [phone] CASEY KU self
--- OUTSIDE RECORDS SUMMARY | 2020-11-17 00:47 | CCD | Continuity of Care Document ---
Author Author Patty SMALLWOOD PA-C Organization Unknown Address [address] [place] [address] Phone [phone] Problems Active Problems Provider Date Chemical pneumonitis [...] Tablets 1 by mouth twice a day 30tabs [place] Harp MD 09/12/2020 Claritin 10mg Tablets 1 by mouth every day 90tabs [place] Harp MD 09/04/2020 Hydrocodone-Acetaminophen 5-325mg Tablets Take 1 Tablet By Mouth Every 8 Hours as Needed . DO Not Exceed 3 Per 24 Hours(Pain clinic) Unknown Albuterol Sulfate HFA 108(90Base) mcg/Act Aerosol [...] by mouth every day(Dr. Lr) Unknown 0 Furosemide 20mg Tablets 1 by mouth every day(Dr. Lr) Unknown Immunizations CPT Code Status Date Vaccine Lot # [id number] Given 09/04/2020 Influenza (>= 6 Months) P.F. Vaccine [id number] Vital Signs Date Vital Result Comment 09/04/2020 3:42pm BP Systolic 124 mmHg BP [...] Result H/L Range Note Ua Routine 09/16/2020 [facility] Appearance, Urine CLEAR Normal Clear Color, Urine YELLOW Normal Yellow PH,Urine 5.0 units Normal 5.0-9.0 Specific [place] Urine Auto 1.015 Normal 1.002-1.035 Protein, Urine [...] /LPF Normal 0-1 CBC W/Automated Diff 09/16/2020 [facility] White Blood Count 10.4 10 High 4.0-10.0 [...] 36.0-66.0 Lymph % 13.9 % Low 24.0-44.0 Preble % 6.1 % High 0.0-5.0 Eos % 4.2 % High 0.0-3.0 Baso % 0.6 % Normal 0.0-1.0 Immature Granulocyte % 0.3 % Normal 0-3.0 Nucleated Red Blood Cell % 0.0 % Normal 0-0 Neutrophils # 7.8 10 Normal 1.5-8.5 Lymph # 1.4 10 Low 1.5-5.0 Preble # 0.6 10 Normal 0.0-0.8 Eos # 0.4 10 Normal 0.0-0.5 Baso # 0.1 10 Normal 0.0-0.2 Hgba1c 09/16/2020 [facility] Hemoglobin A1c 5.7 % Normal 1 Estimated Average Glucose 117 mg/dL High 60-110 Cve Panel 09/16/2020 [facility] Triglycerides Level 212 mg/dL High <150 Cholesterol Level 140 mg/dL Normal <200 HDL Cholesterol 40 mg/dL Normal >40 LDL Cholesterol 58 mg/dL Normal <100 Non-HDL-C 100 mg/dL Normal Cholesterol Risk Ratio 3.500 Normal <5 Laboratory test finding 09/16/2020 [facility] Total 25(Oh) Vitamin D 13.6 NG/ML Low 30.0-100.0 Laboratory test finding 09/16/2020 [facility] TSH Highly Sensitive <pending> T4 - Free <pending> Comprehensive Metabolic Profil 09/16/2020 [facility] Glucose, Fasting 101 mg/dL High 70-100 Blood [...] Ratio 1.0 Low 1.2-2.2 FT4&TSH Panel 09/16/2020 [facility] Thyroid Stimulating Hormone 2.180 uIU/ML Normal 0.358-3.740 [...] Little GFR Left ESRD GFR <15 on LABELS MOLDER Procedures Date Code Description Status 09/04/2020 60469 Admin Patient Focused Health Ris k Assessment Instrument Completed 09/04/2020 77198 Brief Emotional/Beha v Assessment W/ Scoring Doc Per Standard Inst Completed Medical Devices Description No Information Available Encounters Type Date Location Provider Dx Diagnosis Office Visit 09/04/2020 3:00p Family Practice Iris Smallwood PA-C Z00 .01 Encounter for general adult medical exam w abnormal findings 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 J30.9 Allergic rhinitis, unspecifi ed Z95.5 Presence of coronary angiopl asty implant and graft I10 Essential (primary) hyperten jessica E11.9 Type 2 diabetes mellitus wit hout complications R60.0 Localized edema M54.5 Low back pain F33.9 Major depressive disorder, r ecurrent, unspecified E78.5 Hyperlipidemia, unspecified K21.9 Gastro-esophageal reflux dis ease without esophagitis M85.80 Oth disrd of bone density an d structure, unspecified site Z23 Encounter for immunization Assessments Date Code Description Provider 09/04/2020 Z00.01 [...] Smallwood PA-C 09/04/2020 E78.5 Hyperlipidemia, unspecified Carlita e Smallwood, PA-C 09/04/2020 K21.9 Gastro-esophageal reflux disease without esophagitis Iris Smallwood PA-C 09/04/2020 M85.80 Other specified diso rders of bone density and structure, unspecified site Iris Smallwood PA-C 09/04/2020 Z23 Encounter for immunization Iris Smallwood PA-C Plan of Treatment Future Appointment(s):* 10/06/2020 1:40 pm - Iris Smallwood PA-C at [facility] 09/04/2020 - Iris Smallwood PA-C* Z00.01 Encounter for general adult medical examination with abnormal findings* Comments:* Physical examination was done. Routine blood work ordered, will call her with results. Will have her sign records release to obtain past medical records. 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 Continue with treatment per bank reconciliator. They are going to see specialist in [place]. * J30.9 Allergic rhinitis, unspecified* Comments:* She c/o nose bleeds and runny nose. Discontinued Levocetirizine. Will prescribe Claritin and try nasal saline. Encouraged her to use nasal saline and humidifier to prevent nose bleeds. * Z95.5 Presence of coronary angioplasty implant and graft* Comments:* Following with motor vehicles inspector. * I10 Essential (primary) hypertension* Comments:* Her BP at goal. Will discontinue lisinopril. Encouraged her to monitor BP at home. If she has any low readings or elevated readings, she should let us know. * E11.9 Type 2 diabetes mellitus without complications* Comments:* Will order blood work and adjust medication if needed. Continue with current medication. Recommended to follow a diabetic diet like low carb intake/sugar inta ke/avoiding snacking in the night time or after dinner and a regular exercise regimen. Following with real estate consultant. * R60.0 Localized edema* Comments:* Continue with current medication. * M54.5 Low back pain* Comments:* Continue with current medication. If she has increased pain, she should let us know. * F33.9 Major depressive disorder, recurrent, unspecified* Comments:* she is not depressed or down. Will taper off Wellbutrin and decrease it to 75mg per patient wish. if she has increased depression, she should let us know. * E78.5 Hyperlipidemia, unspecified* Comments:* Continue with current medication. Will order blood work and adjust mediation if indicated. * K21.9 Gastro-esophageal reflux disease without esophagitis* Comments:* Continue with omeprazole. If she has any increased symptoms, she should let us know. * M85.80 Other specified disorders of bone density and structure, unspecified site* Comments:* Her doctor was supposed to prescribe medication to prevent osteoporosis. Will review the past medical records and prescribe if needed. Recommended to take calcium supplement. * Z23 Encounter for immunization* Comments:* She received flu shot today. * All * New Medication:* Claritin 10 mg - 1 by mouth every day * Follow up:* 1 month or as needed Functional Status Description No Information Available Mental Status Description No Information Available Referrals Description No Information Available
--- OUTSIDE RECORDS SUMMARY | 2020-11-17 00:47 | CCD ---
Author Author [facility] Syst ems Organization [facility] ems Address Unknown Phone Unavailable Care Team Providers Care Programming Internship Name Role Phone Angella Park Unavailable PROBLEMS Type Condition ICD9-CM Code ARB69-PC Code Onset Dates Condition S tatus SNOMED Code Notes Problem Other chronic pain G89.29 Active 58000037 Problem Controlled type 2 diabetes m ellitus without complication, without long- term current use of insulin E11.9 Active 27921633 4 Problem Mixed hyperlipidemia E78.2 Active 556512550 Problem Coronary artery disease invo lving [place] coronary artery of [place] heart without angina pectoris I25.10 Active 189363240038 7 Problem Interstitial lung disease J84.9 Active 821938 007 Problem ABRAHAM (obstructive sleep apnea) G47.33 Active 78 755739 Problem Gastroesophageal reflux disease, esophagitis pre sence not specified K21.9 Active 705619874 Problem Lumbago with sciatica, unspecified side M54.40 Active 850505568 Problem Intervertebral disc disorders with radiculopathy , lumbar region M51.16 Active 318700588204649 Problem Myalgia, other site M79.18 Active 85773491 Problem Cor pulmonale I27.81 Active 02612453 Problem Lumbago with sciatica, right side M54.41 Active 724273101 Problem Secondary osteoporosis M81.8 Active 860493465 Problem Essential hypertension I10 Active 16517970 Problem Seasonal allergies J30.2 Active 585648507 Problem Bee sting allergy Z91.030 Active 427663152 Problem Spinal stenosis of lumbar region with neurogenic harvey ication M48.062 Active 31128468 Problem Lumbar spinal stenosis M48.061 Active 08651097 ALLERGIES Allergen (clinical drug ingredient) Drug/Non Drug Allergy do cumented on EMR Reaction Allergy Type Onset Date Status Latex Gloves([facility] Code:[address]3940-76132) Rash/ITCHING Drug Aller gy Active Bee Stings Anaphylaxis Non Drug Allergy Active ENCOUNTERS from 1950 to 2020-08-27 Encounter Location Date Provider Diagnosis [facility] [address] [place] [phone] Jul, Angella Park IMMUNIZATIONS Vaccine Route Administration Date Status Influenza (18 yrs & older) Flublok IM Intramuscular Aug 22, 2019 Administered SOCIAL HISTORY Tobacco Use: Social History Observation Description Date Details (start date - stop date) Former Smoker Sex Assigned At : Social History Observation Description Sex Assigned At Unknown Education: Question Answer Notes Level of Education: College Language: Question Answer Notes Languages spoken: Mozambican Roman Catholic: Question Answer Notes Roman Catholic 24 Episcopal Sexual Hx: Question Answer Notes Had sex [...] MEDICATIONS Medication SIG (Take, Route, Frequency, Duration) Start Date En d Date Status Gabapentin 300 MG TAKE 3 CAPSULES BY MOUTH THREE TIMES DAILY for 30 Not-Taking PreserVision AREDS - 1 cap Orally once daily Active Rolling Walker 1 with seat as directed Dx: M51.16 15 Jul, 2020 Active Lisinopril 2.5 MG 1 tablet Orally Once a day for 90 day(s) Mar, Active Metformin HCl 500 MG 1 tablet with a meal Orally twice a day for 30 Active BuPROPion HCl ER (SR) 150 MG 1 tablet Orally Twice a day for 30 Active Butrans 10 MCG/HR 1 patch to skin Transdermal Q 7 DAYS=MDD for 30 Days Jul, Active EpiPen 2-Hank 0.3 MG/0.3ML as directed intramuscularly once p rn for anaphylaxis Mar, Active Cetirizine HCl 10 MG 1 tablet Orally Once a day for 30 day(s) 2019 Active Omeprazole 20 MG 1 capsule 30 minutes before morning meal Orally Once a day for 30 day(s) Mar, Active Azithromycin 250 MG 1 tab Orally Once a day for 30 days Active Atorvastatin Calcium 40 MG 1 tablet orally Daily for 90 days Active Pregabalin 50 MG 1 capsule Orally every 8 hours Active Bisoprolol Fumarate 5 MG 1/2 tablet Orally Once a day Active Albuterol Sulfate (2.5 MG/3ML) 0.083% 3 ml Inhalation every 4 hours as needed for SOB Mar, Active Pregabalin 75 MG 1 capsule Orally Once a day Active Vitamin B12 _ 1 tablet Orally Once a day Active Furosemide 20 MG 40 mg orally Daily Mar, Activ e Potassium Chloride ER 20 MEQ 1 tablet with food Orally Once a day for 90 day(s) Jul, Active Albuterol Sulfate HFA 108 (90 Base) MCG/ACT 2 puffs In halation QID prn SOB/wheeze Sep, Active Nystatin 164234 UNIT/GM 1 application Externally to groin Tw ice a day prn Dec, Active Aspirin 81 81 MG 1 tablet Orally Once a day for 30 day(s) Active Hydrocodone-Acetaminophen 5-325 MG 1 tablet as needed Orally Every 8 hours when necessary MDD 3 for 30 Days Jul, Active Tizanidine HCl 4 MG 1 tab orally 3 times a day a s needed for muscle spasms for 30 Days Mar, Active PROCEDURES No Information RESULTS No Results REASON FOR VISIT nurse MEDICAL (GENERAL) HISTORY Type Description Date Medical History HTN, goal < 130/80 per ACC/AHA Medical History Hyperlipidemia Medical History Type 2 DM, goal HbA1c < 6.5 Medical History Interstitial Lung disease - Dr. Dickens Medical History Chronic low back pain - pain management Medical History CAD with [place] 2013, stent - cardiology Medical History Depression [...] no polyps 2017 Surgical History lung biopsies [id number] Hospitalization History pneumonia, Hypoxia 12/2018,12/2018, Hospitalization History [facility]GERIS Hospitalization History SOB/Flud retension 03/2020 Goals Section No Information Health Concerns No Information MEDICAL EQUIPMENT No Information MENTAL STATUS No Information FUNCTIONAL STATUS No Information ASSESSMENTS No Information PLAN OF TREATMENT Medication Medication Name Sig Start Date Stop Date Rolling Walker 1 with seat as directed Dx: M51.16 15 Jul, 2020 Hydrocodone-Acetaminophen 5-325 MG 1 tablet as needed Orally Every 8 hours when necessary MDD 3 for 30 Days Jul, Butrans 10 MCG/HR 1 patch to skin Transdermal Q 7 DAYS=MDD for 30 Days Jul, Next Appt Details Provider Name:Jack Blank, 2020-09-19 10:00:00 AM, [address] [place] [address], [place], [address], Provider Name:Hiram Marcial, 2020-09-30 8 01:30:00 PM, [address] [place] [address], [phone], Provider Name:Angella Park, 2020-11-26 09 :00:00 AM, [address] [place] [address], [phone], Insurance Providers Payer Name Payer Address Payer Phone Insured Name Patient Relati onship to Insured Coverage Start Date Coverage End Date [employer] GOLD [address] [address] [facility] [id number] CASEY KU [facility] [address] [address] [facility] [id number] TELLY KU self
--- OUTSIDE RECORDS SUMMARY | 2020-11-17 00:47 | CCD ---
Author Author [facility] Syst ems Organization [facility] ems Address Unknown Phone Unavailable Care Team Providers Care Directory Operator Name Role Phone Angella Park Unavailable PROBLEMS Type Condition ICD9-CM Code VWC75-AC Code Onset Dates Condition S tatus SNOMED Code Notes Problem Other chronic pain G89.29 Active 29711129 Problem Controlled type 2 diabetes m ellitus without complication, without long- term current use of insulin E11.9 Active 15993032 4 Problem Mixed hyperlipidemia E78.2 Active 746565926 Problem Coronary artery disease invo lving [place] coronary artery of [place] heart without angina pectoris I25.10 Active 397999899930 7 Problem Interstitial lung disease J84.9 Active 085056 007 Problem ABRAHAM (obstructive sleep apnea) G47.33 Active 78 422858 Problem Gastroesophageal reflux disease, esophagitis pre sence not specified K21.9 Active 979480827 Problem Lumbago with sciatica, unspecified side M54.40 Active 104302120 Problem Intervertebral disc disorders with radiculopathy , lumbar region M51.16 Active 442054690747140 Problem Myalgia, other site M79.18 Active 14691273 Problem Cor pulmonale I27.81 Active 76079628 Problem Lumbago with sciatica, right side M54.41 Active 358359336 Problem Secondary osteoporosis M81.8 Active 164491196 Problem Essential hypertension I10 Active 84726817 Problem Seasonal allergies J30.2 Active 536348919 Problem Bee sting allergy Z91.030 Active 789793042 Problem Spinal stenosis of lumbar region with neurogenic harvey ication M48.062 Active 58262750 Problem Lumbar spinal stenosis M48.061 Active 38833456 ALLERGIES Allergen (clinical drug ingredient) Drug/Non Drug Allergy do cumented on EMR Reaction Allergy Type Onset Date Status Latex Gloves([facility] Code:11[address]-79103) Rash/ITCHING Drug Aller gy Active Bee Stings Anaphylaxis Non Drug Allergy Active ENCOUNTERS from 1950 to 2020-09-01 Encounter Location Date Provider Diagnosis [facility] [address] [place] [phone] Jul, Angella Park IMMUNIZATIONS Vaccine Route Administration [...] College Language: Question Answer Notes Languages spoken: Citizen Of [place] Yarsanism: Question Answer Notes Yarsanism 24 Zoroastrianism Sexual Hx: Question Answer Notes Had sex [...] Duration) Start Date En d Date Status Pregabalin 75 MG 1 capsule Orally Once a day Active Lisinopril 2.5 MG 1 tablet Orally Once a day for 90 day(s) Mar, Active Potassium Chloride ER 20 MEQ 1 tablet with food Orally Once a day for 90 day(s) Jul, Active Nystatin 511444 UNIT/GM 1 application Externally to groin Tw ice a day prn Dec, Active Gabapentin 300 [...] hrs m dd2 for 30 Days Aug, Active Hydrocodone-Acetaminophen 5-325 MG 1 tablet as needed Orally Every 8 hours when necessary MDD 3 for 30 Days Jul, Active Aspirin 81 81 MG 1 tablet [...] a day for 30 day(s) 2019 Active Vitamin B12 _ 1 tablet Orally Once a day Active Atorvastatin Calcium 40 MG 1 tablet orally Daily for 90 days Active Pregabalin 50 MG 1 capsule Orally every 8 hours Active EpiPen 2-Hank 0.3 MG/0.3ML as directed intramuscularly once p rn for anaphylaxis Mar, Active Butrans 10 MCG/HR 1 patch to skin Transdermal Q 7 DAYS=MDD for 30 Days Jul, Active Furosemide 20 MG 40 mg orally Daily Mar, Activ e Rolling Walker 1 with seat as directed Dx: M51.16 Jul, Active Albuterol Sulfate (2.5 MG/3ML) 0.083% 3 ml Inhalation every 4 hours as needed for SOB Mar, Active Azithromycin 250 MG 1 tab Orally Once a day for 30 days Active PROCEDURES No Information RESULTS No Results REASON FOR VISIT BUTRANS PATCH MEDICAL (GENERAL) HISTORY Type Description Date Medical History HTN, goal < 130/80 per ACC/AHA Medical History Hyperlipidemia Medical History Type 2 DM, goal HbA1c < 6.5 Medical History Interstitial Lung disease - Dr. Dickens Medical History Chronic low back pain - pain management Medical History CAD with [place] 2013, stent - cardiology Medical History Depression [...] no polyps 2017 Surgical History lung biopsies [id number] Hospitalization History pneumonia, Hypoxia 12/2018,12/2018, 4 /2019 Hospitalization History [facility]GER[facility] Hospitalization History SOB/Flud retension [...] Details Provider Name:Jack Blank, 2020-09-19 10:00:00 AM, [address] [place] [address], [address], Provider Name:Hiram Marcial, 2020-09-30 8 01:30:00 PM, [address] [place] [address], [phone], Provider Name:Angella Park, 2020-11-26 09 :00:00 AM, [address] [place] [address], [phone], Insurance Providers Payer Name Payer Address Payer Phone Insured Name Patient Relati onship to Insured Coverage Start Date Coverage End Date [facility] [address] [address] [facility] [id number] TELLY KU self [employer] [facility] [address] [address] [facility] [id number] CASEY KU self
--- OUTSIDE RECORDS SUMMARY | 2020-11-17 00:47 | CCD ---
Author Author [facility] Syst ems Organization [facility] ems Address Unknown Phone Unavailable Care Team Providers Care Train Engineer Name Role Phone Hiram Marcial Unavailable PROBLEMS Type Condition ICD9-CM Code [id number] Code Onset Dates Condition S tatus SNOMED Code Notes Problem Other chronic pain G89.29 Active 07170550 Problem Controlled type 2 diabetes m ellitus without complication, without long- term current use of insulin E11.9 Active 59552808 4 Problem Mixed hyperlipidemia E78.2 Active 979532927 Problem Coronary artery disease invo lving [place] coronary artery of [place] heart without angina pectoris I25.10 Active 871093670350 7 Problem Interstitial lung disease J84.9 Active 727983 007 Problem ABRAHAM (obstructive sleep apnea) G47.33 Active 78 596918 Problem Gastroesophageal reflux disease, esophagitis pre sence not specified K21.9 Active 351231635 Problem Lumbago with sciatica, unspecified side M54.40 Active 088666375 Problem Intervertebral disc disorders with radiculopathy , lumbar region M51.16 Active 474080657484209 Problem Myalgia, other site M79.18 Active 89659437 Problem Cor pulmonale I27.81 Active 38906213 Problem Lumbago with sciatica, right side M54.41 Active 121852961 Problem Secondary osteoporosis M81.8 Active 361444700 Problem Essential hypertension I10 Active 98884738 Problem Seasonal allergies J30.2 Active 912626147 Problem Bee sting allergy Z91.030 Active 540114884 Problem Spinal stenosis of lumbar region with neurogenic harvey ication M48.062 Active 95370184 Problem Lumbar spinal stenosis M48.061 Active 08720822 ALLERGIES Allergen (clinical drug ingredient) Drug/Non Drug Allergy do cumented on EMR Reaction Allergy Type Onset Date Status Latex Gloves([facility] Code:97827-30766) Rash/ITCHING Drug Aller gy Active Bee Stings Anaphylaxis Non Drug Allergy Active ENCOUNTERS from 1950 to 2020-08-27 Encounter Location Date Provider Diagnosis [facility] Yolette [address] [place] [id number] Jul, Hiram Marcial IMMUNIZATIONS Vaccine Route Administration [...] College Language: Question Answer Notes Languages spoken: Serbian Baptist: Question Answer Notes Baptist 24 Baptist Sexual Hx: Question Answer Notes Had sex [...] halation QID prn SOB/wheeze Sep, Active Nystatin 038034 UNIT/GM 1 application Externally to groin Tw [...] Information RESULTS No Results REASON FOR VISIT Refill MEDICAL (GENERAL) HISTORY Type Description Date Medical History HTN, goal < 130/80 per ACC/AHA Medical History Hyperlipidemia Medical History Type 2 DM, goal HbA1c < 6.5 Medical History Interstitial Lung disease - Dr. Dickens Medical History Chronic low back pain - pain management Medical History CAD with [place] 2013, stent - cardiology Medical History Depression [...] no polyps 2017 Surgical History lung biopsies [id number] Hospitalization History pneumonia, Hypoxia 12/2018,12/2018, Hospitalization History [...] Days Jul, Next Appt Details Provider Name:Jack Albarranry, 2020-09-19 10:00:00 AM, [address] [place] [address], [place], [address], Provider Name:Hiram Marcial, 2020-09-30 8 01:30:00 PM, [address] [place] [address], [phone], Provider Name:Angella Park, 2020-11-26 09 :00:00 AM, [address] [place] [address], [phone], Insurance Providers Payer Name Payer Address Payer Phone Insured Name Patient Relati onship to Insured Coverage Start Date Coverage End Date [employer] GOLD [address] [address] [facility] [phone] CASEY KU [facility] [address] [address] [facility] [id number] TELLY KU self
--- OUTSIDE RECORDS SUMMARY | 2020-11-17 00:47 | CCD ---
Author Author [facility] ems Organization [facility] ems Address Unknown Phone Unavailable Care Team Providers Care Tie Mill Operator Name Role Phone Hiram Marcial Unavailable PROBLEMS Type Condition ICD9-CM Code HJS63-FS Code Onset Dates Condition S tatus SNOMED Code Notes Problem Other chronic pain G89.29 Active 25283613 Problem Controlled type 2 diabetes m ellitus without complication, without long- term current use of insulin E11.9 Active 32094237 4 Problem Mixed hyperlipidemia E78.2 Active 745473411 Problem Coronary artery disease invo lving [place] coronary artery of [place] heart without angina pectoris I25.10 Active 003017035193 7 Problem Interstitial lung disease J84.9 Active 477611 007 Problem ABRAHAM (obstructive sleep apnea) G47.33 Active 78 759542 Problem Gastroesophageal reflux disease, esophagitis pre sence not specified K21.9 Active 105346018 Problem Lumbago with sciatica, unspecified side M54.40 Active 702210781 Problem Intervertebral disc disorders with radiculopathy , lumbar region M51.16 Active 536632038823047 Problem Myalgia, other site M79.18 Active 82863946 Problem Cor pulmonale I27.81 Active 48545311 Problem Lumbago with sciatica, right side M54.41 Active 757374267 Problem Secondary osteoporosis M81.8 Active 545871890 Problem Essential hypertension I10 Active 01106607 Problem Seasonal allergies J30.2 Active 951743251 Problem Bee sting allergy Z91.030 Active 995653916 Problem Spinal stenosis of lumbar region with neurogenic harvey ication M48.062 Active 07770354 Problem Lumbar spinal stenosis M48.061 Active 91580281 ALLERGIES Allergen (clinical drug ingredient) Drug/Non Drug Allergy do cumented on EMR Reaction Allergy Type Onset Date Status Latex Gloves([facility] Code:86852-64510) Rash/ITCHING Drug Aller gy Active Bee Stings Anaphylaxis Non Drug Allergy Active ENCOUNTERS from 1950 to 2020-08-28 Encounter Location Date Provider Diagnosis [facility] Yolette [address] [place] [id number] Jul, Hiram Marcial IMMUNIZATIONS Vaccine Route Administration [...] College Language: Question Answer Notes Languages spoken: Honduran Gnosticist: Question Answer Notes Gnosticist 24 Restorationism Sexual Hx: Question Answer Notes [...] halation QID prn SOB/wheeze Sep, Active Nystatin 650439 UNIT/GM 1 application Externally to groin Tw [...] Information RESULTS No Results REASON FOR VISIT pulmonary referral MEDICAL (GENERAL) HISTORY Type Description Date Medical History HTN, goal < 130/80 per ACC/AHA Medical History Hyperlipidemia Medical History Type 2 DM, goal HbA1c < 6.5 Medical History Interstitial Lung disease - Dr. Dickens Medical History Chronic low back pain - pain management Medical History CAD with [place] 2013, stent - cardiology Medical History Depression [...] no polyps 2017 Surgical History lung biopsies [phone] Hospitalization History pneumonia, Hypoxia 12/2018,12/2018, Hospitalization History [...] Details Provider Name:Jack Albarranry, 2020-09-19 10:00:00 AM, [address] [place] [address], [place], [address], Provider Name:Hiram Marcial, 2020-09-30 8 01:30:00 PM, [address] [place] [address], [phone], Provider Name:Angella Park, 2020-11-26 09 :00:00 AM, [address] [place] [address], [phone], Insurance Providers Payer Name Payer Address Payer Phone Insured Name Patient Relati onship to Insured Coverage Start Date Coverage End Date [facility] [address] [address] [facility] [id number] TELLY KU self [facility] [address] [address] [facility] [address] CASEY KU self
--- OUTSIDE RECORDS SUMMARY | 2020-11-17 00:47 | CCD ---
Author Author [facility] ems Organization [facility] ems Address Unknown Phone Unavailable Care Team Providers Care Agricultural Mechanic Name Role Phone Hiram Marcial Unavailable PROBLEMS Type Condition ICD9-CM Code IRS94-OQ Code Onset Dates Condition S tatus SNOMED Code Notes Problem Other chronic pain G89.29 Active 89971506 Problem Controlled type 2 diabetes m ellitus without complication, without long- term current use of insulin E11.9 Active 40727644 4 Problem Mixed hyperlipidemia E78.2 Active 059560338 Problem Coronary artery disease invo lving [place] coronary artery of [place] heart without angina pectoris I25.10 Active 610029213074 7 Problem Interstitial lung disease J84.9 Active 652037 007 Problem ABRAHAM (obstructive sleep apnea) G47.33 Active 78 742883 Problem Gastroesophageal reflux disease, esophagitis pre sence not specified K21.9 Active 489135781 Problem Lumbago with sciatica, unspecified side M54.40 Active 278762533 Problem Intervertebral disc disorders with radiculopathy , lumbar region M51.16 Active 686419384192002 Problem Myalgia, other site M79.18 Active 13174923 Problem Cor pulmonale I27.81 Active 98702416 Problem Lumbago with sciatica, right side M54.41 Active 703840279 Problem Secondary osteoporosis M81.8 Active 869916679 Problem Essential hypertension I10 Active 46754450 Problem Seasonal allergies J30.2 Active 180678566 Problem Bee sting allergy Z91.030 Active 264783865 Problem Spinal stenosis of lumbar region with neurogenic harvey ication M48.062 Active 40422099 Problem Lumbar spinal stenosis M48.061 Active 36159101 ALLERGIES Allergen (clinical drug ingredient) Drug/Non Drug Allergy do cumented on EMR Reaction Allergy Type Onset Date Status Latex Gloves([facility] Code:95484-63863) Rash/ITCHING Drug Aller gy Active Bee Stings Anaphylaxis Non Drug Allergy Active ENCOUNTERS from 1950 to 2020-08-27 Encounter Location Date Provider Diagnosis [facility] Yolette [address] [place] [phone] Jul, Hiram Marcial IMMUNIZATIONS Vaccine Route Administration [...] College Language: Question Answer Notes Languages spoken: Vietnamese Mandaeism: Question Answer Notes Mandaeism 24 Yazidism Sexual Hx: Question Answer Notes Had sex [...] seat as directed Dx: M51.16 Jul, Active Lisinopril 2.5 MG 1 tablet Orally [...] halation QID prn SOB/wheeze Sep, Active Nystatin 036283 UNIT/GM 1 application Externally to groin Tw [...] Information RESULTS No Results REASON FOR VISIT rollator script MEDICAL (GENERAL) HISTORY Type Description Date Medical History HTN, goal < 130/80 per ACC/AHA Medical History Hyperlipidemia Medical History Type 2 DM, goal HbA1c < 6.5 Medical History Interstitial Lung disease - Dr. Dickens Medical History Chronic low back pain - pain management Medical History CAD with [place] 2013, stent - cardiology Medical History Depression [...] no polyps 2017 Surgical History lung biopsies [id number] Hospitalization History pneumonia, Hypoxia 12/2018,12/2018, Hospitalization History [...] Details Provider Name:Jack Blank, 2020-09-19 10:00:00 AM, [address] [place] [address], [place], [address], Provider Name:Hiram Marcial, 2020-09-30 8 01:30:00 PM, [address] [place] [address], [phone], Provider Name:Angella Park, 2020-11-26 09 :00:00 AM, [address] [place] [address], [phone], Insurance Providers Payer Name Payer Address Payer Phone Insured Name Patient Relati onship to Insured Coverage Start Date Coverage End Date [facility] [address] [address] [facility] [id number] TELLY KU self [employer] GOLD [address] [address] [facility] [address] CASEY KU self
--- OUTSIDE RECORDS SUMMARY | 2020-11-17 00:47 | CCD ---
Author Author [facility]st ems Organization [facility] ems Address Unknown Phone Unavailable Care Team Providers Care Electrician Deck Name Role Phone Angella Park Unavailable PROBLEMS Type Condition ICD9-CM Code OOT52-SP Code Onset Dates Condition S tatus SNOMED Code Notes Problem Other chronic pain G89.29 Active 12181124 Problem Controlled type 2 diabetes m ellitus without complication, without long- term current use of insulin E11.9 Active 61187085 4 Problem Mixed hyperlipidemia E78.2 Active 027729083 Problem Coronary artery disease invo lving [place] coronary artery of [place] heart without angina pectoris I25.10 Active 432172562611 7 Problem Interstitial lung disease J84.9 Active 609253 007 Problem ABRAHAM (obstructive sleep apnea) G47.33 Active 78 597226 Problem Gastroesophageal reflux disease, esophagitis pre sence not specified K21.9 Active 715043865 Problem Lumbago with sciatica, unspecified side M54.40 Active 825540939 Problem Intervertebral disc disorders with radiculopathy , lumbar region M51.16 Active 659814257072496 Problem Myalgia, other site M79.18 Active 53194446 Problem Cor pulmonale I27.81 Active 54318993 Problem Lumbago with sciatica, right side M54.41 Active 028921401 Problem Secondary osteoporosis M81.8 Active 042311243 Problem Essential hypertension I10 Active 36677637 Problem Seasonal allergies J30.2 Active 191377948 Problem Bee sting allergy Z91.030 Active 341010574 Problem Spinal stenosis of lumbar region with neurogenic harvey ication M48.062 Active 31315368 Problem Lumbar spinal stenosis M48.061 Active 94504367 ALLERGIES Allergen (clinical drug ingredient) Drug/Non Drug Allergy do cumented on EMR Reaction Allergy Type Onset Date Status Latex Gloves([facility] Code:62998-92874) Rash/ITCHING Drug Aller gy Active Bee Stings Anaphylaxis Non Drug Allergy Active ENCOUNTERS from 1950 to 2020-09-01 Encounter Location Date Provider Diagnosis [facility] [address] [place] [phone] Jul, Angella Park Lumbar spinal stenosis M48.061 ; Interve rtebral disc disorders with radiculopathy, lumbar region M51.16 and Chronic prescription opiate use Z79.891 IMMUNIZATIONS Vaccine Route Administration Date Status Influenza (18 yrs & older) Flublok IM Intramuscular Aug 22, 2019 Administered SOCIAL HISTORY Tobacco Use: Social History Observation Description Date Details (start date - stop date) Former Smoker Sex Assigned At : Social History Observation Description Sex Assigned At Unknown Education: Question Answer Notes Level of Education: College Language: Question Answer Notes Languages spoken: Gabonese Jehovah'S Witness: Question Answer Notes Jehovah'S Witness 24 Zoroastrian Sexual Hx: Question Answer Notes Had sex [...] REASON FOR REFERRAL No Information VITAL SIGNS Weight 163.4 lbs Jul, Height 62 in Jul, BMI 29.88 kg/m2 Jul, Heart Rate 87 /min Jul, Respiratory Rate 20 /min Jul, Temperature 96.6 degrees Fahrenheit Jul, Oximetry 91% Jul, Blood pressure systolic 138 mm Hg Jul, Blood pressure diastolic 66 mm Hg Jul, MEDICATIONS Medication SIG (Take, Route, Frequency, Duration) Start Date En d Date Status Pregabalin 75 MG 1 capsule Orally Once a day Active Lisinopril 2.5 MG 1 tablet Orally Once a day for 90 day(s) Mar, Active Potassium Chloride ER 20 MEQ 1 tablet with food Orally Once a day for 90 day(s) Jul, Active Nystatin 919436 UNIT/GM 1 application Externally to groin Tw [...] Information RESULTS No Results REASON FOR VISIT MED MANAGEMENT MEDICAL (GENERAL) HISTORY Type Description Date Medical History HTN, goal < 130/80 per ACC/AHA Medical History Hyperlipidemia Medical History Type 2 DM, goal HbA1c < 6.5 Medical History Interstitial Lung disease - Dr. Dickens Medical History Chronic low back pain - pain management Medical History CAD with [place] 2014, stent - cardiology Medical History Depression [...] 2017 Surgical History Lasik surgery bilateral eyes 2016 Surgical History colonoscopy, reportedly diverticulosis b ut no polyps 2017 Surgical History lung biopsies [id number] Hospitalization History pneumonia, Hypoxia 12/2018,12/2018, Hospitalization History SURGERIS Hospitalization History SOB/Flud retension 03/2020 Goals Section No Information Health Concerns No Information MEDICAL EQUIPMENT No Information MENTAL STATUS No Information FUNCTIONAL STATUS No Information ASSESSMENTS Encounter Date Diagnosis Notes Jul, Chronic prescription opiate use (ICD-10 - Z79.891) Jul, Intervertebral disc disorder s with radiculopathy, lumbar region (ICD-10 - M51.16) Jul, Lumbar spinal stenosis (ICD-10 - M48.061 ) PLAN OF TREATMENT Medication Medication Name Sig Start Date Stop Date Butrans 10 MCG/HR 1 patch to skin Transdermal Q 7 DAYS=MDD for 30 Days Jul, Rolling Walker 1 with seat as directed Dx: M51.16 15 Jul, 2020 Belbuca 150 MCG 1 film to the gum Bucally every 12 hrs m dd2 for 30 Days Aug, Hydrocodone-Acetaminophen 5-325 MG 1 tablet as needed Orally Every 8 hours when necessary MDD 3 for 30 Days Jul, Treatment Notes Assessment Notes Clinical Notes Lumbar spinal stenosis Due to multiple comorbiditie s it would be in patient's best interest to use Butrans-patch every 7 days for chronic uncontrolled [id number]-ocgdf pain., ISTOP registry reviewed and demonstrates compllianc e.URINE TOX TODAY, [facility] Narcotic agreement was reviewed and signed today by the patient. See attached document for full details; Specific issues were reviewed: 1) Keep pain meds in their original bottles and any weekly planners are to be brought to the pain center at EVERY VISIT. 2) The patient is NOT to increase dosing or timing of their pain medication without specific direction of their Pain CenterProvider (not ER or other providers). 3) All pain meds are to be kept secured, in a locked box. 4) No pain meds are to be shared with any other person for any reason. 5) No pain meds may be taken from any friends or relatives for any reason 6) No meds or substances which are not legal are to be used- no marijuana, no cocaine, amphetamines, heroin, or others are ever to be used. 7)Urine testing is done to account for meds and substances being taken and will be done randomly. Next Appt Details 3 Months Reason:medication management, kira dalton urine toxicology Provider Name:Jack Blank, 2020-09-19 10:00:00 AM, [address] [place] [address], [place], [address], Provider Name:Hiram Marcial, 2020-09-30 8 01:30:00 PM, [address] [place] [address], [phone], Provider Name:Angella Park, 2020-11-26 09 :00:00 AM, [address] [place] [address], [phone], Follow Up:3 Monthsmedication management, review urine toxicology Insurance Providers Payer Name Payer Address Payer Phone Insured Name Patient Relati onship to Insured Coverage Start Date Coverage End Date [employer] GOLD [address] [address] [facility] [phone] CASEY KU [facility] [address] [address] [facility] [id number] TELLY KU self
--- OUTSIDE RECORDS SUMMARY | 2020-11-17 00:48 | CCD | Continuity of Care Document ---
Author Organization Unknown Address Unknown Phone Unavailable Care Team Providers Care Crayon Sorting Machine Feeder Name Role Phone Hiram Marcial MD AUTM [phone] Amie Dickens MD AUTM [phone] Carl Prabhakar DPM AUTM [phone] Problems Active Problems Provider Date Old myocardial infarction Gilmer Lr MD Onset: 2019 Patient post percutaneous transluminal coronary angiop lasty Gilmer Lr MD Onset: 05/15/2020 Essential hypertension Gilmer Lr MD Onset: 0 Chronic right-sided heart failure Gilmer Lr MD Onset : 05/15/2020 Hyperlipidemia Gilmer Lr MD Onset: 05/15/2020 Obesity Gilmer Lr MD Onset: 05/15/2020 Dietary management surveillance Gilmer Lr MD Onset: 05/15/2020 Coronary arteriosclerosis in patient wit h history of previous myocardial infarction Gilmer Lr MD Onset: 05/15/2020 Mixed hyperlipidemia Gilmer Lr MD Onset: 05/15/2020 Chronic diastolic heart failure Gilmer Lr MD Onset: 05/15/2020 Social History Type Date Description Comments Sex Unknown ETOH Use Rarely consumes alcohol Tobacco Use Start: Unknown End: Unknown Patient is a former smoker Smoking Status Reviewed: 05/15/20 Patient is a former smoker Exercise Type/Frequency Walks sporadically Exercise Limitations Shortness Of Breath Exercise Limitations Back Pain Allergies, Adverse Reactions, Alerts Active Allergies Reaction Severity Comments Date Bee Sting 05/15/2020 Latex rash 05/15/2020 Medications Active Medications SIG Qnty Indications Ordering Provide r Date Bisoprolol Fumarate 5mg Tablets Half by mouth every day 45tabs I25.2 Gilmer Lr MD 05/15/2020 I10 Vascepa 1gm Capsules 2 caps by mouth twice a day (take with meals) 360caps E78.2 Gilmer Lr MD Azithromycin 250mg Tablets 1 by mouth daily x's 30 days Unknown 05/14/2020 Tizanidine HCL 4mg Capsules 1 by mouth three-four times a day as needed Unknown 05/14/[address] 1 by mouth every day Unknown 05/14/2020 Cetirizine HCL 10mg Tablets 1 by mouth every day Unknown 05/14/2020 Preservision Areds 2 Areds 2 Capsu les 1 by mouth twice a day Unknown 05/14/2020 Atorvastatin Calcium 40mg Tablets 1 by mouth every night at bedtime Unknown Metformin HCL 500mg Tablets 1 by mouth twice a day Unknown 05/14/2020 Bupropion HCL ER (SR) 150mg Tablets ER 12HR 1 by mouth twice a day Unknown 05/14 [address]ir[address] 1 by mouth every day Unknown 05/14/2020 Furosemide 20mg Tablets 2 by mouth every day Unknown 05/14/2020 Gabapentin 300mg Capsules 3 by mouth three times a day Unknown 05/14/2020 Lisinopril 2.5mg Tablets 1 by mouth every day Unknown 05/14/2020 Oxygen - Home 4 lpm via nc Unknown 0 Vitamin B12 500mcg Tablets 1 by mouth every day Unknown 05/14/2020 History Medications Propranolol HCL ER 60mg Caps ER 24 HR 1 by mouth every day I25.2 Unknown 05/14/2020 - I10 Immunizations Description No Information Available Vital Signs Date Vital Result Comment 05/15/2020 12:43pm Weight 171.00 lb Home Weight 171lb 8oz Height 62 inches 5'2" BMI (Body Mass Index) 31.3 kg/m2 Heart Rate 72 /min BP Systolic Sitting 106 mmHg CBP adult cuff, LA BP Diastolic Sitting 66 mmHg CBP adult cuff, LA Results Test Acquired Date Facility Test Result H/L Range Note CBC without Differential 07/31/2020 [facility] - not inter faced (315)- - White Blood Count 6.8 4.0-10.0 Red Blood Count 4.10 4.00-5.40 Platelets 240 150-450 Hemoglobin 11.1 Hematocrit 33.7 Basic Metabolic Panel 04/23/2020 [facility] - not interfac ed (315)- - Glucose 71 70-100 Blood Urea Nitrogen 27 High 7-18 Creatinine 1.07 High 0.6-1.0 Sodium 140 136-145 Potassium 4.0 3.5-5.1 Chloride 108 High 98-107 Carbon Dioxide 25 21-32 Calcium 9.0 8.2-9.6 GFR (Calculated) 54.0 >32 Laboratory test finding 04/23/2020 [facility] - not interf aced (315)- - Magnesium Level 2.3 1.8-2.4 CBC without Differential 04/23/2020 [facility] - not inter faced (315)- - White Blood Count 10.6 High 5.0-10.0 Red Blood Count 4.79 4.00-5.40 Platelets 365 172-450 Hemoglobin 12.5 Hematocrit 39.5 CPK & CPK MB 04/18/2020 [facility] - not interfaced (315)- - CPK 119 CPK-MB 3.0 Laboratory test finding 04/18/2020 [facility] - not interf aced (315)- - Troponin <0.02 NT Probnp QN Ser/Plas 2222 Laboratory test finding 04/17/2020 [facility] - not interf aced (315)- - Thyroid Stimulating Hormone 6.590 Procedures Date Code Description Status 06/03/2020 48957 Treadmill/Pharmacological Monito ring Completed 06/03/2020 76620 Myocardial Perfusion Spect Multi ple Completed 05/15/2020 43750 Arterial Pressure Wa veform Analysis For Assessment Of Central Art Completed 05/15/2020 87562 ECG 12-Lead Completed Medical Devices Description No Information Available Encounters Type Date Location Provider Dx Diagnosis Office Visit 05/15/2020 12:30p Main Office Gilmer Lr MD I25.1 0 Athscl heart disease of [place] coronary artery w/o ang pctrs I25.2 Old myocardial infarction Z95.5 Presence of coronary angiopl asty implant and graft I10 Essential (primary) hyperten jessica I50.32 Chronic diastolic (congestiv e) heart failure I50.812 Chronic right heart failure E78.2 Mixed hyperlipidemia E66.09 Other obesity due to excess calories Z71.3 Dietary counseling and surve illance Assessments Date Code Description Provider 06/03/2020 I25.10 Atherosclerotic hear t disease of [place] coronary artery without angina pectoris Stress Nuclear/Reg Treadmill 06/03/2020 I25.2 Old myocardial infarction Stress Nuclear/Reg Treadmill 06/03/2020 Z95.5 Presence of coronary angioplasty implant and graft Stress Nuclear/Reg Treadmill 05/15/2020 I25.10 Atherosclerotic hear t disease of [place] coronary artery without angina pectoris Gilmer Lr MD 05/15/2020 I25.2 Old myocardial infarction Gilmer Lr MD 05/15/2020 Z95.5 Presence of coronary angioplasty implant and graft Gilmer Lr MD 05/15/2020 I10 Essential (primary) hypertension Gilmer Lr MD 05/15/2020 I50.32 Chronic diastolic (congestive) h eart failure Gilmer Lr MD 05/15/2020 I50.812 Chronic right heart failure João balaji Lr MD 05/15/2020 E78.2 Mixed hyperlipidemia Gilmer deluca MD 05/15/2020 E66.09 Other obesity due to excess dejuan kasandra Gilmer Lr MD 05/15/2020 Z71.3 Dietary counseling and surveilla nce Gilmer Lr MD Plan of Treatment Future Appointment(s):* 08/22/2020 1:45 pm - DANILO Asencio at Main Office 05/15/2020 - Gilmer Lr MD* I25.10 Atherosclerotic heart disease of [place] coronary artery without angina pectoris* Recommendations:* Pharmacologic (dobutamine) stress SPECT myocardial perfusion imaging to assess coronary prognosis. Propranolol was discontinued (severe lung disease) and replaced with bisoprolol 2.5 mg daily. Continue lisinopril, aspirin, atorvastatin 40 mg/d. Vascepa 2 g twice a day was added. * I25.2 Old myocardial infarction* New Medication:* Bisoprolol Fumarate 5 mg - Half by mouth every day * Z95.5 Presence of coronary angioplasty implant and graft * I10 Essential (primary) hypertension* New Medication:* Bisoprolol Fumarate 5 mg - Half by mouth every day * Recommendations:* Propranolol ER 60 mg/d was discontinued (nonselective beta- pineda in severe lung disease) and replaced with bisoprolol 2.5 mg/d. Continue lisinopril and furosemide at the current dosages. LOW FAT, WHOLE- FOOD, PLANT-BASED DIET - Include fruits, vegetables, intact whole grains, beans & legumes; especially green leafy vegetables, cruciferous vegetables (e.g., broccoli, kale, cauliflower, brussel sprouts, cabbage), turmeric, ground flaxseeds - Avoid animal products (meat, poultry, fish, dairy products, eggs) - Avoid processed foods (added sugar, high fructose corn syrup, oil, salt) - Low Fat (8-12% of total calories) - No liquid oils, margarine, shortening, butter, lard, mayonnaise. - No trans-fats (partially hydrogenated oils). - No alcohol - No artificial sweeteners - B12 supplement if completely vegan and not on adequate amounts of B12 fortified foods - Non-GMO preferred - Avoid artificial food colors LOW SODIUM - Target total daily sodium 2300- 2500 mg /d [do not go below 2300 mg/d] - No added salt. - Rule of thumb : Strive for sodium/calorie ratio less than or equal to 1.0 EATING HABITS - Stop eating when you reach satiety. - Avoid liquid calories (eat your calories, don't drink your calories). - Avoid restaurants EXERCISE ADVICE (General exercise advice; depends on health conditions) Cardio: Walking or equivalent aerobic activity for 40-60 minutes at least 5 times a week and preferably everyday. Resistance training 20-30 minutes, at least 2-3 times per week * I50.32 Chronic diastolic (congestive) heart failure* Recommendations:* Continue furosemide and lisinopril at the current dosages. As noted above, she was changed from propranolol to bisoprolol. * I50.812 Chronic right heart failure* Recommendations:* Continue O2 and furosemide at the current dosages. * E78.2 Mixed hyperlipidemia* New Medication:* Vascepa 1 gm - 2 caps by mouth twice a day (take with meals) * Recommendations:* Vascepa 2 g twice a day with meals was prescribed. Continue atorvastatin 40 mg at bedtime. Nutrition and exercise advice as described above. * E66.09 Other obesity due to excess calories* Recommendations:* Nutrition and exercise advice as above. * Z71.3 Dietary counseling and surveillance * All * Follow up:* Follow-up in 3 months. Functional Status Functional Condition Comment Date Status Independent with all ADL's Activ e Mental Status Description No Information Available Referrals Refer to Reason for Referral Status Appt Date Gilmer Lr MD [facility] auth emr-valid 06/03/20 - 07/03/20. ca Cr eated [id number] [facility], [facility] [place] [address] [phone]
--- OUTSIDE RECORDS SUMMARY | 2020-11-17 00:48 | CCD ---
Author Author [facility] Organization [facility] Address Unknown Phone Unavailable Care Team Providers Care Loose Hand Packer Name Role Phone Hiram Marcial Unavailable PROBLEMS Type Condition ICD9-CM Code NXK40-BC Code Onset Dates Condition S tatus SNOMED Code Notes Problem Other chronic pain G89.29 Active 04383717 Problem Controlled type 2 diabetes m ellitus without complication, without long- term current use of insulin E11.9 Active 05477699 4 Problem Mixed hyperlipidemia E78.2 Active 754882507 Problem Coronary artery disease invo lving [place] coronary artery of [place] heart without angina pectoris I25.10 Active 867498937558 7 Problem Interstitial lung disease J84.9 Active 204329 007 Problem ABRAHAM (obstructive sleep apnea) G47.33 Active 78 719644 Problem Gastroesophageal reflux disease, esophagitis pre sence not specified K21.9 Active 180584354 Problem Lumbago with sciatica, unspecified side M54.40 Active 177940630 Problem Intervertebral disc disorders with radiculopathy , lumbar region M51.16 Active 355855332866361 Problem Myalgia, other site M79.18 Active 69594630 Problem Cor pulmonale I27.81 Active 00485584 Problem Lumbago with sciatica, right side M54.41 Active 339684290 Problem Secondary osteoporosis M81.8 Active 866569144 Problem Essential hypertension I10 Active 22402151 Problem Seasonal allergies J30.2 Active 835065418 Problem Bee sting allergy Z91.030 Active 280321956 Problem Spinal stenosis of lumbar region with neurogenic harvey ication M48.062 Active 13141553 Problem Lumbar spinal stenosis M48.061 Active 09115925 ALLERGIES Allergen (clinical drug ingredient) Drug/Non Drug Allergy do cumented on EMR Reaction Allergy Type Onset Date Status Latex Gloves([facility] Code:30525-66730) Rash/ITCHING Drug Aller gy Active Bee Stings Anaphylaxis Non Drug Allergy Active ENCOUNTERS from 1950 to 2020-08-23 Encounter Location Date Provider Diagnosis [facility] Yolette [address] [place] [id number] Jul, Hiram Marcial IMMUNIZATIONS Vaccine Route Administration [...] College Language: Question Answer Notes Languages spoken: [place] Pentecostal: Question Answer Notes Pentec[employer]al 24 [employer] Sexual Hx: Question Answer Notes [...] Duration) Start Date En d Date Status Lisinopril 2.5 MG 1 tablet Orally Once a day for 90 day(s) Mar, Active Vitamin B12 _ 1 tablet Orally Once a day Active Nystatin 698429 UNIT/GM 1 application Externally to groin Tw ice a day prn Dec, Active PreserVision AREDS - 1 cap Orally once daily Active Bisoprolol Fumarate 5 MG 1/2 tablet Orally Once a day Active EpiPen 2-Hank 0.3 MG/0.3ML as directed intramuscularly once p rn for anaphylaxis Mar, Active Gabapentin 300 MG TAKE 3 CAPSULES BY MOUTH THREE TIMES DAILY for 30 Active Omeprazole 20 MG 1 capsule 30 minutes before morning meal Orally Once a day for 30 day(s) Mar, Active Aspirin 81 81 MG 1 tablet Orally Once a day for 30 day(s) Active Tizanidine HCl 4 MG 1 tab orally 3 times a day a s needed for muscle spasms for 30 Days Mar, Active Albuterol Sulfate HFA 108 (90 Base) MCG/ACT 2 puffs In halation QID prn SOB/wheeze Sep, Active Pregabalin 50 MG 1 capsule Orally every 8 hours Active BuPROPion HCl ER (SR) 150 MG 1 tablet Orally Twice a day for 30 Active Cetirizine HCl 10 MG 1 tablet Orally Once a day for 30 day(s) 2019 Active Albuterol Sulfate (2.5 MG/3ML) 0.083% 3 ml Inhalation every 4 hours as needed for SOB Mar, Active Potassium Chloride ER 20 MEQ 1 tablet with food Orally Once a day for 90 day(s) Jul, Active Azithromycin 250 MG 1 tab Orally Once a day for 30 days Active Furosemide 20 MG 40 mg orally Daily Mar, Activ e Rolling Walker 1 as directed Dx: M51.16 Jul, A ctive Metformin HCl 500 MG 1 tablet with a meal Orally twice a day for 30 Active Atorvastatin Calcium 40 MG 1 tablet orally Daily for 90 days Active PROCEDURES No Information RESULTS No Results REASON FOR VISIT Urgent!! MEDICAL (GENERAL) HISTORY Type Description Date Medical History HTN, goal < 130/80 per ACC/AHA Medical History Hyperlipidemia Medical History Type 2 DM, goal HbA1c < 6.5 Medical History Interstitial Lung disease - Dr. Dickens Medical History Chronic low back pain - pain management Medical History CAD with NM 2013, stent - cardiology Medical History Depression [...] no polyps 2017 Surgical History lung biopsies [id number] Hospitalization History pneumonia, Hypoxia 12/2018,12/2018, Hospitalization History SURGERIS Hospitalization History SOB/Flud retension 03/2020 Goals Section No Information Health Concerns No Information MEDICAL EQUIPMENT No Information MENTAL STATUS No Information FUNCTIONAL STATUS No Information ASSESSMENTS No Information PLAN OF TREATMENT Medication Medication Name Sig Start Date Stop Date Tizanidine HCl 4 MG 1 tab orally 3 times a day a s needed for muscle spasms for 30 Days Mar, Rolling Walker 1 as directed Dx: M51.16 Jul, Gabapentin 300 MG TAKE 3 CAPSULES BY MOUTH THREE TIMES DAILY for 30 BuPROPion HCl ER (SR) 150 MG 1 tablet Orally Twice a day for 30 Next Appt Details Provider Name:Angella Park, 2020-08-27 09 :15:00 AM, [address] [place], [address], Provider Name:Jack Blank, 2020-09-19 10:00:00 AM, [address] [place] [address], [place], [address], Provider Name:Hiram Marcial, 2020-09-30 8 01:30:00 PM, [address] [place] [address], [phone], Insurance Providers Payer Name Payer Address Payer Phone Insured Name Patient Relati onship to Insured Coverage Start Date Coverage End Date KALIA ZEPEDA [address] [address] [facility] [phone] CASEY KU self [facility] [address] [address] [facility] [id number] TELLY KU self
--- OUTSIDE RECORDS SUMMARY | 2020-11-17 00:48 | CCD | Continuity of Care Document ---
Author Author Patty RIVAS M.D. Organization Unknown Address [address] [place] [address] Phone [phone] Care Team Providers Care Pottery Decorator Name Role Phone Maritza Strickland AUTM [phone] Hiram Marcial M.D. AUTM [phone] Problems Description No Information Available Social History Type Date Description Comments Sex Unknown Cigarette Use Pack Years - 70 Tobacco Use Start: 10/31/66 End: 10/31/13 Patient is a forme r smoker 1-1.5 ppd x's 47 years Smoking Status Reviewed: 08/27/20 Patient is a former smoker 1- 1.5 ppd x's 47 years Allergies, Adverse Reactions, Alerts Description No Known Drug Allergies Medications Active Medications SIG Qnty Indications Ordering Provide r Date Prednisone 10mg Tablets 4 tablets by mouth once daily for 5 days, then 3 tabs daily for 7 days, then 2 tabs daily for 7 days, then 1 tab daily for 7 days 42tabs Amie Rivas M.D. 08/27/[address] 1 by mouth every day 30caps R12 Amie Rivas M.D. 01/21/2020 Fluticasone Propionate 50mcg/Act Suspension 1 sprays each nostrils twice a day as needed 16gm J30.9 Amie Rivas M.D. 01/21/2020 Breo Ellipta 200-25mcg/Inh Aerosol 1 puff inhaled every day 60units Amie Rivas M.D. 0 Furosemide 20mg Tablets 1 by mouth every day 30tabs Amie Rivas M.D. 11/01/2019 Tizanidine HCL 4mg Tablets Take 1 2 To 1 Tablet By Mouth Three Times Daily as Needed For Muscle Spasm Unknown Potassium Chloride ER 20Meq Tablet s ER Take 1 Tablet By Mouth Once Daily Unknown Pregabalin 75mg Capsules Carl Prabhakar, (DPM) Azithromycin 250mg Tablets 1 tab by mouth every day Unknown Zyrtec Allergy 10mg Capsules 1 by mouth every day Unknown Hydrocodone-Acetaminophen 5-325mg [...] 1 by mouth twice a day Unknown Lisinopril 2.5mg Tablets 1 by mouth every day Unknown Aspirin Adult Low Dose 81mg Tablet s DR 1 by mouth every day Unknown Bupropion Hydrochloride ER (SR) 150mg Tablets ER 12HR 1 tab twice daily Unknown Atorvastatin Calcium 40mg Tablets Once Daily Unknown Meloxicam 7.5mg Tablets once daily Unknown Immunizations Description No Information Available Vital Signs Date Vital Result Comment 08/27/2020 1:00pm BP Systolic 118 mmHg BP Diastolic 70 mmHg Heart Rate 66 /min O2 % BldC Oximetry 974 % Body Temperature 97.1 F Height 62 inches 5'2" Weight 161.50 lb BMI (Body Mass Index) 29.5 kg/m2 [place] Body Weight 110 lb Weight 73.256 kg 03/19/2020 1:24pm BP Systolic 102 mmHg BP Diastolic 68 mmHg Heart Rate 73 /min O2 % BldC Oximetry 91 % o2 sat on 4l Body Temperature 98.8 F Height 62 inches 5'2" Weight 175.00 lb BMI (Body Mass Index) 32.0 kg/m2 [place] Body Weight 110 lb Weight 79.380 kg Results Description No Information Available Procedures Date Code Description Status 03/12/2020 71660 Diffusing Capacity Completed 03/12/2020 52858 Plethysmography Determination Courtney ng Volumes & Per Airway Resist Completed 03/12/2020 85263 Maximum Breathing Capacity, Maxi mal Voluntary Ventilation Completed 03/12/2020 90365 Bronchospasm Evaluation Complete d Medical Devices Description No Information Available Encounters Type Date Location Provider Dx Diagnosis Office Visit 03/19/2020 2:30p [facility] Amie peters M.D. J84.9 Interstitial pulmonary disea se, unspecified Z87.891 Personal history of nicotine dependence G47.33 Obstructive sleep apnea (arvin lt) (pediatric) J96.11 Chronic respiratory failure with hypoxia Z86.711 Personal history of pulmonar y embolism Assessments Date Code Description Provider 08/27/2020 J84.9 Interstitial pulmonary disease, unspecified Amie Rivas M.D. 08/27/2020 Z87.891 Personal history of nicotine dep endence Amie Rivas M.D. 08/27/2020 J96.11 Chronic respiratory failure with hypoxia Amie Rivas M.D. 08/27/2020 Z86.711 Personal history of pulmonary em bolism Amie Rivas M.D. 08/27/2020 G47.30 Sleep apnea, unspecified Amie Rivas M.D. 08/27/2020 I27.20 Pulmonary hypertension, unspecif ied Amie Rivas M.D. 03/19/2020 J84.9 Interstitial pulmonary disease, unspecified Amie Rivas M.D. 03/19/2020 Z87.891 Personal history of nicotine dep endence Amie Rivas M.D. 03/19/2020 G47.33 Obstructive sleep apnea (adult) (pediatric) Amie Rivas M.D. 03/19/2020 J96.11 Chronic respiratory failure with hypoxia Amie Rivas M.D. 03/19/2020 Z86.711 Personal history of pulmonary em bolism Amie Rivas M.D. 03/12/2020 J84.9 Interstitial pulmonary disease, unspecified Pulmonary Lab Plan of Treatment 08/27/2020 - Amie Rivas M.D.* J84.9 Interstitial pulmonary disease, unspecified * Z87.891 Personal history of nicotine dependence * J96.11 Chronic respiratory failure with hypoxia * Z86.711 Personal history of pulmonary embolism * G47.30 Sleep apnea, unspecified * I27.20 Pulmonary hypertension, unspecified * * Referral:* Dany Valadez M.D., * Comments:* 1. The morbidity of untreated obstructive sleep apnea was reviewed and questions were answered.2. PSG and PAP therapy were reviewed and questions were answered.3. We will schedule for PSG.4. Sleep hygiene was reviewed. * Follow up:* 1. Follow up after testing. Functional Status Functional Condition Comment Date Status Independent with all ADL's Activ e Independent with all IADL's Acti ve Mental Status Mental Condition Comment Date Status None Active Referrals Refer to Dr Reason for Referral Status Appt Date Dany Valadez M.D. Created [address], [address] [place], [place] [address] [phone]
--- OUTSIDE RECORDS SUMMARY | 2020-11-17 00:48 | CCD ---
Author Author [facility] Organization [facility] Address Unknown Phone Unavailable Care Team Providers Care Slide Forming Machine Tender Name Role Phone Hiram Marcial Unavailable PROBLEMS Type Condition ICD9-CM Code [id number] Code Onset Dates Condition S tatus SNOMED Code Notes Problem Other chronic pain G89.29 Active 03733483 Problem Controlled type 2 diabetes m ellitus without complication, without long- term current use of insulin E11.9 Active 72973862 4 Problem Mixed hyperlipidemia E78.2 Active 309481298 Problem Coronary artery disease invo lving [place] coronary artery of [place] heart without angina pectoris I25.10 Active 830962401838 7 Problem Interstitial lung disease J84.9 Active 888256 007 Problem ABRAHAM (obstructive sleep apnea) G47.33 Active 78 500007 Problem Gastroesophageal reflux disease, esophagitis pre sence not specified K21.9 Active 571503605 Problem Lumbago with sciatica, unspecified side M54.40 Active 044430552 Problem Intervertebral disc disorders with radiculopathy , lumbar region M51.16 Active 804227256884052 Problem Myalgia, other site M79.18 Active 36623568 Problem Cor pulmonale I27.81 Active 03931126 Problem Lumbago with sciatica, right side M54.41 Active 974035521 Problem Secondary osteoporosis M81.8 Active 252338277 Problem Essential hypertension I10 Active 69958657 Problem Seasonal allergies J30.2 Active 561917092 Problem Bee sting allergy Z91.030 Active 707653443 Problem Spinal stenosis of lumbar region with neurogenic harvey ication M48.062 Active 13444726 Problem Lumbar spinal stenosis M48.061 Active 79242588 ALLERGIES Allergen (clinical drug ingredient) Drug/Non Drug Allergy do cumented on EMR Reaction Allergy Type Onset Date Status Latex Gloves([facility] Code:23203-68985) Rash/ITCHING Drug Aller gy Active Bee Stings Anaphylaxis Non Drug Allergy Active ENCOUNTERS from 1950 to 2020-08-27 Encounter Location Date Provider Diagnosis [facility] [place] [address] [place] [id number] Jul, Hiram Marcial IMMUNIZATIONS Vaccine Route Administration [...] College Language: Question Answer Notes Languages spoken: Mauritanian Protestant: Question Answer Notes Protestant 24 [employer]opalian Sexual Hx: Question Answer Notes Had sex [...] halation QID prn SOB/wheeze Sep, Active Nystatin 534376 UNIT/GM 1 application Externally to groin Tw [...] Information RESULTS No Results REASON FOR VISIT Rea Schaefer MEDICAL (GENERAL) HISTORY Type Description Date Medical History HTN, goal < 130/80 per ACC/AHA Medical History Hyperlipidemia Medical History Type 2 DM, goal HbA1c < 6.5 Medical History Interstitial Lung disease - Dr. Dickens Medical History Chronic low back pain - pain management Medical History CAD with AR 2013, stent - cardiology Medical History Depression [...] no polyps 2017 Surgical History lung biopsies [id number] Hospitalization History pneumonia, Hypoxia 12/2018,12/2018, Hospitalization History [...] Details Provider Name:Jack Albarranry, 2020-09-19 10:00:00 AM, [address] [place] [address], [place], [address], Provider Name:Hiram Marcial, 2020-09-30 8 01:30:00 PM, [address] [place] [address], [phone], Provider Name:Angella Park, 2020-11-26 09 :00:00 AM, [address] [place] [address], [phone], Insurance Providers Payer Name Payer Address Payer Phone Insured Name Patient Relati onship to Insured Coverage Start Date Coverage End Date [employer] GOLD [address] [address] [facility] [address] [facility] [address] [address] [facility] [address] TELLY KU self
--- OUTSIDE RECORDS SUMMARY | 2020-11-17 00:48 | CCD | Continuity of Care Document ---
Author Author Patty VARELA PA Organization Unknown Address [address], [place] [address] Phone [phone] Care Team Providers Care Adult School Teacher Name Role Phone Hiram Marcial MD AUTM [phone] Amie Dickens MD AUTM [phone] Carl Prabhakar DPM AUTM [phone] Problems Active Problems Provider Date Old myocardial [...] End: Unknown Patient is a former smoker up to 2 ppd, started at age 15 and quit 2012 Smoking Status Reviewed: 08/22/20 Patient is a former smoker up to 2 ppd, started at age 15 and quit 2012 Exercise Type/Frequency Walks sporadically Exercise Type/Frequency Does housework sporadica lly watering plants, dust mop, laundry Exercise Limitations Shortness Of Breath Exercise Limitations Back Pain Allergies, Adverse Reactions, Alerts Active Allergies Reaction Severity Comments Date Bee Sting 05/15/2020 Latex rash 05/15/2020 Medications Active Medications SIG Qnty Indications Ordering Provide r Date Lyrica 75mg Capsules 1 by mouth twice a day Hiram Marcial MD Proair HFA 108(90Base) mcg/Act Aer osol 2 puffs by mouth as needed Unknown Epipen 2-Hank 0.3mg/0 .3ML Solution Auto-Inject inject for allergic reactions as directed Hiram Marcial MD 08/21/2020 Albuterol Sulfate (2 .5mg/3ML) 0.083% Nebulizer every 4 hours as needed Amie Dickens M D 08/21/2020 Bisoprolol Fumarate 5mg Tablets Half by mouth every day. Hold for BP < 100/60 mmHg 45tabs I25.2 Gilmer Lr MD 05/15/2020 I10 [...] 2 by mouth every day Unknown 05/14/2020 Lisinopril 2.5mg Tablets 1 by mouth every day. Hold for BP < 100/60 mmHg Unknown 0 05/14/2020 Oxygen - Home 4 lpm via nc Unknown 0 Vitamin B12 500mcg Tablets 1 by mouth every day Unknown 05/14/2020 History Medications Gabapentin 300mg Capsules 3 by mouth three times a day Unknown 05/14/2020 - Propranolol HCL ER 60mg Caps ER 24 HR 1 by mouth every day I25.2 Unknown 05/14/2020 - I10 Immunizations Description No Information Available Vital Signs Date Vital Result Comment 08/22/2020 2:12pm Weight 161.00 lb Home Weight 160lb Height 62 inches 5'2" BMI (Body Mass Index) 29.4 kg/m2 Heart Rate 63 /min BP Systolic Sitting 82 mmHg large cuff, Ra BP Diastolic Sitting 40 mmHg large cuff, Ra 05/15/2020 12:43pm Weight 171.00 lb Home Weight 171lb 8oz Height 62 inches 5'2" BMI (Body Mass Index) 31.3 kg/m2 Heart Rate 72 /min BP Systolic Sitting 106 mmHg CBP adult cuff, LA BP Diastolic Sitting 66 mmHg CBP adult cuff, LA Results Test Acquired Date Facility Test Result H/L Range Note CBC without Differential 07/31/2020 [facility] - not inter faced (315)- - White Blood Count 6.8 4.0-10.0 Red Blood Count 4.10 4.00-5.40 Platelets 240 150-450 Hemoglobin 11.1 Hematocrit 33.7 Basic Metabolic Panel 04/23/2020 [facility] - not interfac ed (315)- - Glucose 71 70-100 Blood Urea Nitrogen 27 High 7-18 Creatinine 1.07 High 0.6-1.0 Sodium 140 136-145 Potassium 4.0 3.5-5.1 Chloride 108 High 98-107 Carbon Dioxide 25 21-32 Calcium 9.0 8.2-9.6 GFR (Calculated) 54.0 >32 Laboratory test finding 04/23/2020 [facility] - not interf aced (315)- - Magnesium Level 2.3 1.8-2.4 CBC without Differential 04/23/2020 [facility] - not inter faced (315)- - White Blood Count 10.6 High 5.0-10.0 Red Blood Count 4.79 4.00-5.40 Platelets 365 172-450 Hemoglobin 12.5 Hematocrit 39.5 CPK & CPK MB 04/18/2020 [facility] - not interfaced (315)- - CPK 119 CPK-MB 3.0 Laboratory test finding 04/18/2020 [facility] - not interf aced (315)- - Troponin <0.02 NT Probnp QN Ser/Plas 2222 Laboratory test finding 04/17/2020 [facility] - not interf aced (315)- - Thyroid Stimulating Hormone 6.590 Procedures Date Code Description Status 06/03/2020 17411 Treadmill/Pharmacological Monito ring Completed 06/03/2020 81951 Myocardial Perfusion Spect Multi ple Completed 05/15/2020 75075 Arterial Pressure Wa veform Analysis For Assessment Of Central Art Completed 05/15/2020 11399 ECG 12-Lead Completed Medical Devices Description No Information Available Encounters Type Date Location Provider Dx Diagnosis Office Visit 08/22/2020 1:45p Main Office DANILO Asencio 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 I10 Essential (primary) hyperten jessica Office Visit 05/15/2020 12:30p Main Office Gilmer Lr MD 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 I25.2 Old myocardial infarction Z95.5 Presence of coronary angiopl asty implant and graft I10 Essential (primary) hyperten jessica I50.32 Chronic diastolic (congestiv e) heart failure I50.812 Chronic right heart failure E78.2 Mixed hyperlipidemia E66.09 Other obesity due to excess calories Z71.3 Dietary counseling and surve illance Assessments Date Code Description Provider 08/22/2020 I25.10 Atherosclerotic hear t disease of [place] coronary artery without angina pectoris DANILO Asencio 08/22/2020 I10 Essential (primary) hypertension DANILO Asencio 06/03/2020 I25.10 Atherosclerotic hear t disease of [place] coronary artery without angina pectoris Stress Nuclear/Reg Treadmill 06/03/2020 I25.2 Old myocardial infarction Stress Nuclear/Reg Treadmill 06/03/2020 Z95.5 Presence of coronary angioplasty implant and graft Stress Nuclear/Reg Treadmill 05/15/2020 I25.10 Atherosclerotic hear t disease of [place] coronary artery without angina pectoris Gilmer Lr [...] Lr MD Plan of Treatment Future Appointment(s):* 02/23/2021 8:45 am - DANILO Webb at Main Office 08/22/2020 - DANILO Asencio* I25.10 Atherosclerotic heart disease of [place] coronary artery without angina pectoris* Recommendations:* Please call the office with any exertional chest pain or shortness of breath. * I10 Essential (primary) hypertension* Recommendations:* Hold bisoprolol and lisinopril for BP < 100/60 mmHg. * All * Follow up:* Follow up in 6 months. Functional Status Functional Condition Comment Date Status Independent with all ADL's Activ e Mental Status Description No Information Available Referrals Refer to Reason for Referral Status Appt Date Gilmer Lr MD [facility] auth emr-valid 06/03/20 - 07/03/20. ca Cr eated [id number] [facility], [facility] [address] [phone]
--- OUTSIDE RECORDS SUMMARY | 2020-11-17 00:50 | CCD ---
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 Name Role Phone ANTECOL, Carlito ABDI MD Unavailable Unavailable ANTECOL, Carlito ABDI MD Unavailable Unavailable ANTECOL, Carlito ABDI MD Unavailable Unavailable ANTECOL, Carlito ABDI MD Unavailable Unavailable ANTECOL, Carlito ABDI MD Unavailable Unavailable ANTECOL, Carlito ABDI MD Unavailable Unavailable ANTECOL, Carlito ABDI MD Unavailable Unavailable ANTECOL, Carlito ABDI MD Unavailable Unavailable ANTECOL, Carlito ABDI MD Unavailable Unavailable ANTECOLCarlito MD Unavailable Unavailable ANTECOLCarlito MD Unavailable Unavailable ANTECOLCarlito MD Unavailable Unavailable ANTECOLCarlito MD Unavailable Unavailable ANTECOLCarlito MD Unavailable Unavailable ANTECOLCarlito MD Unavailable Unavailable ANTECOL, Carlito ABDI MD Unavailable Unavailable ANTECOLCarlito MD Unavailable Unavailable ANTECOLCarlito MD Unavailable Unavailable ANTECOLCarlito MD Unavailable Unavailable ANTECOLCarlito MD Unavailable Unavailable ANTECOLCarlito MD Unavailable Unavailable ANTECOLCarlito MD Unavailable Unavailable ANTECOLCarlito MD Unavailable Unavailable ANTECOLCarlito MD Unavailable Unavailable ANTECOLCarlito MD Unavailable Unavailable ANTECOLCarlito MD Unavailable Unavailable ANTECOLCarlito MD Unavailable Unavailable ANTECOLCarlito MD Unavailable Unavailable ANTECOLCarlito MD Unavailable Unavailable ANTECOLCarlito MD Unavailable Unavailable ANTECOLCarlito MD Unavailable Unavailable ANTECOLCarlito MD Unavailable Unavailable ANTECOLCarlito MD Unavailable Unavailable ANTECOLCarlito MD Unavailable Unavailable ANTECOL, Carlito ABDI MD Unavailable Unavailable ANTECOL, Carlito ABDI MD Unavailable Unavailable ANTECOL, Carlito ABDI MD Unavailable Unavailable ANTECOL, Carlito ABDI MD Unavailable Unavailable ANTECOL, Carlito ABDI MD Unavailable Unavailable ANTECOL, Carlito ABDI MD Unavailable Unavailable ANTECOL, Carlito ABDI MD Unavailable Unavailable ANTECOL, Carlito ABDI MD Unavailable Unavailable ANTECOL, Carlito ABDI MD Unavailable Unavailable ANTECOL, Carlito ABDI MD Unavailable Unavailable ANTECOL, Carlito ABDI MD Unavailable Unavailable ANTECOL, Carlito ABDI MD Unavailable Unavailable ANTECOL, Carlito ABDI MD Unavailable Unavailable ANTECOL, Carlito ABDI MD Unavailable Unavailable ANTECOL, Carlito ABDI MD Unavailable Unavailable ANTECOL, Carlito ABDI MD Unavailable Unavailable ANTECOL, Carlito ABDI MD Unavailable Unavailable ANTECOL, Carlito ABDI MD Unavailable Unavailable ANTECOL, Carlito ABDI MD Unavailable Unavailable ANTECOL, Carlito ABDI MD Unavailable Unavailable ANTECOL, Carlito ABID MD Unavailable Unavailable Sim, L Rebecca PA Unavailable Unavailable Sim, L Rebecca PA Unavailable Unavailable Sim, L Rebecca PA Unavailable Unavailable Sim, L Rebecca PA Unavailable Unavailable Sim, L Rebecca PA Unavailable Unavailable Sim, L Rebecca PA Unavailable Unavailable Sim, L Rebecca PA Unavailable Unavailable Sim, L Rebecca PA Unavailable Unavailable Sim, L Rebecca PA Unavailable Unavailable Sim, L Rebecca PA Unavailable Unavailable Sim, L Rebecca PA Unavailable Unavailable Sim, L Rebecca PA Unavailable Unavailable Sim, L Rebecca PA Unavailable Unavailable Sim, L Rebecca PA Unavailable Unavailable Sim, L Rebecca PA Unavailable Unavailable Sim, L Rebecca PA Unavailable Unavailable Sim, L Rebecca PA Unavailable Unavailable Sim, L Rebecca PA Unavailable Unavailable Sim, L Rebecca PA Unavailable Unavailable Sim, L Rebecca PA Unavailable Unavailable Sim, L Rebecca PA Unavailable Unavailable Sim, L Rebecca PA Unavailable Unavailable Sim, L Rebecca PA Unavailable Unavailable Stokes, M Iris PA-C Unavailable Unavailable Stokes, M Iris PA-C Unavailable Unavailable Stokes, M Iris PA-C Unavailable Unavailable Stokes, M Iris PA-C Unavailable Unavailable Stokes, M Iris PA-C Unavailable Unavailable Stokes, M Iris PA-C Unavailable Unavailable Stokes, M Iris PA-C Unavailable Unavailable Stokes, M Iris PA-C Unavailable Unavailable Stokes, M Iris PA-C Unavailable Unavailable Stokes, M Iris PA-C Unavailable Unavailable Stokes, M Iris PA-C Unavailable Unavailable Stokes, M Iris PA-C Unavailable Unavailable Stokes, M Iris PA-C Unavailable Unavailable Stokes, M Iris PA-C Unavailable Unavailable Stokes, M Iris PA-C Unavailable Unavailable Stokes, M Iris PA-C Unavailable Unavailable Stokes, M Iris PA-C Unavailable Unavailable Stokes, M Iris PA-C Unavailable Unavailable Stokes, M Iris PA-C Unavailable Unavailable Stokes, M Iris PA-C Unavailable Unavailable Stokes, M Iris PA-C Unavailable Unavailable Stokes, M Iris PA-C Unavailable Unavailable Stokes, M Iris PA-C Unavailable Unavailable Stokes, M Iris PA-C Unavailable Unavailable Stokes, M Iris PA-C Unavailable Unavailable Stokes, M Iris PA-C Unavailable Unavailable Stokes, M Iris PA-C Unavailable Unavailable Stokes, M Iris PA-C Unavailable Unavailable Stokes, M Iris PA-C Unavailable Unavailable Stokes, M Iris PA-C Unavailable Unavailable Stokes, M Iris PA-C Unavailable Unavailable Stokes, M Iris PA-C Unavailable Unavailable Amie Dickens MD Unavailable Unavailable Amie Dickens MD Unavailable Unavailable Amie Dickens MD Unavailable Unavailable Amie Dickens MD Unavailable Unavailable Amie Dickens MD Unavailable Unavailable Amie Dickens MD Unavailable Unavailable Amie Dickens MD Unavailable Unavailable Amie Dickens MD Unavailable Unavailable Amie Dickens MD Unavailable Unavailable Amie Dickens MD Unavailable Unavailable Amie Dickens MD Unavailable Unavailable Amie Dicekns MD Unavailable Unavailable Amie Dickens MD Unavailable Unavailable Amie Dickens MD Unavailable Unavailable Amie Dickens MD Unavailable Unavailable Amie Dickens MD Unavailable Unavailable Amie Dickens MD Unavailable Unavailable Amie Dickens MD Unavailable Unavailable Amie Dickens MD Unavailable Unavailable Amie Dickens MD Unavailable Unavailable Amie Dickens MD Unavailable Unavailable Amie Dickens MD Unavailable Unavailable Amie Dickens MD Unavailable Unavailable Stokes, M Iris PA-C Unavailable Unavailable Stokes, M Iris PA-C Unavailable Unavailable Stokes, M Iris PA-C Unavailable Unavailable Stokes, M Iris PA-C Unavailable Unavailable Stokes, M Iris PA-C Unavailable Unavailable Stokes, M Iris PA-C Unavailable Unavailable Stokes, M Iris PA-C Unavailable Unavailable Stokes, M Iris PA-C Unavailable Unavailable Stokes, M Iris PA-C Unavailable Unavailable Stokes, M Iris PA-C Unavailable Unavailable Stokes, M Iris PA-C Unavailable Unavailable Stokes, M Iris PA-C Unavailable Unavailable Stokes, M Iris PA-C Unavailable Unavailable Stokes, M Iris PA-C Unavailable Unavailable Stokes, M Iris PA-C Unavailable Unavailable Stokes, M Iris PA-C Unavailable Unavailable Stokes, M Iris PA-C Unavailable Unavailable Stokes, M Iris PA-C Unavailable Unavailable Stokes, M Iris PA-C Unavailable Unavailable Stokes, M Iris PA-C Unavailable Unavailable Stokes, M Iris PA-C Unavailable Unavailable Stokes, M Iris PA-C Unavailable Unavailable Stokes, M Iris PA-C Unavailable Unavailable Stokes, M Iris PA-C Unavailable Unavailable Stokes, M Iris PA-C Unavailable Unavailable Stokes, M Iris PA-C Unavailable Unavailable Stokes, M Iris PA-C Unavailable Unavailable Stokes, M Iris PA-C Unavailable Unavailable Stokes, M Iris PA-C Unavailable Unavailable Stokes, M Iris PA-C Unavailable Unavailable Stokes, M Iris PA-C Unavailable Unavailable Stokes, M Iris PA-C Unavailable Unavailable NO, PCP Unavailable Unavailable Re-disclosure Warning The records that you are about to access may contain information from federally-assisted alcohol or drug abuse programs. If such information is present, then the following federally mandated warning applies: This information has been disclosed to you from records protected by federal confidentiality rules (42 CFR part 2). The federal rules prohibit you from making any further disclosure of this information unless further disclosure is expressly permitted by the written consent of the person to whom it pertains or as otherwise permitted by 42 CFR part 2. A general authorization for the release of medical or other information is NOT sufficient for this purpose. The Federal rules restrict any use of the information to criminally investigate or prosecute any alcohol or drug abuse patient.The records that you are about to access may contain highly sensitive health information, the redisclosure of which is protected by Article 27-F of the [facility] Public Health law. If you continue you may have access to information: Regarding HIV / AIDS; Provided by facilities licensed or operated by the [facility] Office of Mental Health; or Provided by the [facility] Office for People With Developmental Disabilities. If such information is present, then the following [facility] mandated warning applies: This information has been disclosed to you from confidential records which are protected by state law. State law prohibits you from making any further disclosure of this information without the specific written consent of the person to whom it pertains, or as otherwise permitted by law. Any unauthorized further disclosure in violation of state law may result in a fine or residential sentence or both. A general authorization for the release of medical or other information is NOT sufficient authorization for further disc losure. Allergies and Adverse Reactions Type Description Substance Reaction Status Data Source(s ) No Known Allergies No Known Allergies [facility] No Known Drug Allergies No Known Drug Allergies [facility] Drug allergy Latex Gloves Drug allergy Rash/ITCHING Active eCW1 ([facility]) Bee Stings Bee Stings Bee Stings Anaphylaxis Active eCW1 ([facility]) Encounters Encounter Providers Location Date Indications Data Source(s ) Unknown [address] [facility] [place] [address] 11/10/2020 12:00:00 AM EST eCW1 ([facility]) Outpatient Attender: Iris GILonsultant: PCP NO 10/17/2020 01:13:00 PM EST - 10/17/2020 02:13:00 PM EST [facility] Outpatient Attender: Iris Clineultant: PCP NO 10/10/2020 07:57:57 AM EST - 10/13/2020 11:30:00 AM EST [facility] Patient discharged. Unknown [address] [facility] [place] [address] 10/07/2020 12:00:00 AM EST eCW1 ([facility]) Outpatient Attender: Iris Stokes PA-C 04/2020 01:33:00 PM EST - 10/06/2020 01:33:00 PM [facility] Unknown [address] [facility] [place] [address] 10/01/2020 12:00:00 AM EST eCW1 ([facility]) Outpatient Attender: Iris Stokes PA-C 02/2020 03:10:00 PM EST - 09/04/2020 03:10:00 PM [facility] Outpatient Attender: Iris Stokes PA-C Family Practice 1102/2020 02:00:00 PM EST MEDENT ([facility]) Unknown [address] [facility] [place] [address] 08/29/2020 12:00:00 AM EDT eCW1 ([facility]) Outpatient Attender: Amie Clarke/[place]/Bladimir/Kun ndl 08/27/2020 01:00:00 PM EDT MEDENT ([facility] Outpatient [address] [facility] [place] [address] 08/27/2020 12:00:00 AM EDT eCW1 ([facility]) Unknown [address] [facility] [place] [address] 08/27/2020 12:00:00 AM EDT eCW1 ([facility]) Unknown [address] [facility] [place] [address] 08/27/2020 12:00:00 AM EDT eCW1 ([facility]) Outpatient Attender: Rebecca CARRASCO Main Office 08/22/2020 01:45:0 0 PM EDT MEDENT ([facility]) Unknown [address] [facility] [place] [address] 08/22/2020 12:00:00 AM EDT eCW1 ([facility]) Unknown [address] [facility] [place] [address] 08/21/2020 12:00:00 AM EDT eCW1 ([facility]) Unknown [address] [facility] [place] [address] 08/18/2020 12:00:00 AM EDT eCW1 ([facility]) [place] [address] [facility] [place] [address] 08/11/2020 12:00:00 AM EDT eCW1 ([facility]) Unknown [address] [facility] [place] [address] 08/11/2020 12:00:00 AM EDT eCW1 ([facility]) Unknown [address] [facility] [address] 08/08/2020 12:00:00 AM EDT eCW1 ([facility]) Outpatient [address] [facility] [address] 08/07/2020 12:00:00 AM EDT eCW1 ([facility]) Unknown [address] [facility] [address] 08/01/2020 12:00:00 AM EDT eCW1 ([facility]) Unknown [address] [facility] [address] 07/22/2020 12:00:00 AM EDT [facility]) Outpatient Attender: JIN WEAVER MD Main Office 05/15/2020 12:30:00 PM EDT SHERRON ([facility]) (TCM) Transition of Care Visit [address] [place] [address] 05/05/2020 12:00:00 AM EDT eCW1 ([facility]) Unknown [address] [facility] [address] 04/15/2020 12:00:00 AM EDT eCW1 [facility]) TeleMedicine Phone E/M by Phys 11-20 Min [address] [place] [address] 04/10/2020 12:00:00 AM EDT eCW1 ([facility]) Unknown [address] [facility] [address] 04/07/2020 12:00:00 AM EDT eCW1 ([facility]) [facility] [address] [place] [address] 03/26/2020 12:00:00 AM EDT eCW1 ([facility]) Outpatient [address] [facility] [address] 03/21/2020 12:00:00 AM EDT eCW1 ([facility]) Outpatient Attender: Amie Clarke/[place]/Bladimir/Kun ndl 03/19/2020 02:30:00 PM EDT MEDENT ([facility] [address] [place] [phone] 03/14/2020 12:00:00 AM EDT eCW1 ([facility]) [facility] [address] [place] [phone] 03/13/2020 12:00:00 AM EDT eCW1 ([facility]) [facility] [address] [place] [phone] 03/11/2020 12:00:00 AM EDT eCW1 ([facility]) [facility] [address] [place] [address] [place] [address] 03/07/2020 12:00:00 AM EDT eCW1 ([facility]) [facility] [address] [place] [address] [place] [address] 03/04/2020 12:00:00 AM EDT eCW1 ([facility]) [facility] [address] [place] [address], [place] [address] 02/26/2020 12:00:00 AM EDT eCW1 ([facility]) [facility] [address] [place] [address], [place] [address] 02/26/2020 12:00:00 AM EDT eCW1 ([facility]) [facility] [address] [place] [phone] 02/19/2020 12:00:00 AM EDT eCW1 ([facility]) [facility] [address] [place] [phone] 02/18/2020 12:00:00 AM EDT eCW1 ([facility]) Outpatient Attender: Amie Clarke/[place]/Bladimir/Kun ndl 01/21/2020 11:00:00 AM EDT MEDENT ([facility] [address] [place] [address], [place] [address] 01/21/2020 12:00:00 AM EDT eCW1 ([facility]) [address] [place] [address] 01/21/2020 12:00:00 AM EDT eCW1 ([facility]) [facility] [address] [place] [phone] 01/17/2020 12:00:00 AM EDT eCW1 ([facility]) [facility] [address] [place] [phone] 01/15/2020 12:00:00 AM EDT eCW1 ([facility]) [facility] Resident [address] [place] [phone] 01/07/2020 12:00:00 AM EDT eCW1 ([facility]) Outpatient 01/03/2020 03:10:00 PM EST [facility] [address] [address] 01/03/2020 12:00:00 AM EST eCW1 ([facility]) [address] [place] [address] 01/03/2020 12:00:00 AM EST eCW1 ([facility]) [address] [place] [address] 01/03/2020 12:00:00 AM EST eCW1 ([facility]) [facility] [address] [place] [phone] 01/01/2020 12:00:00 AM EST eCW1 ([facility]) [facility] [address] [place] [phone] 12/24/2019 12:00:00 AM EST eCW1 ([facility]) [facility] [address] [place] [phone] 12/14/2019 12:00:00 AM EST eCW1 ([facility]) [address] [place] [address] 12/07/2019 12:00:00 AM EST eCW1 ([facility]) [facility] [place] [address] [facility] [place] [address] 12/03/2019 12:00:00 AM EST eCW1 ([facility]) [facility] GME Resident [address] [place] [phone] 12/03/2019 12:00:00 AM EST eCW1 [facility]) [facility] [address] [place] [phone] 11/30/2019 12:00:00 AM EST eCW1 ([facility]) Outpatient Attender: Amie Clarke/[place]/Bladimir/Kun ndbrandy 11/26/2019 08:00:00 AM EST MEDENT ([facility] [address] [address] 11/20/2019 12:00:00 AM EST eCW1 ([facility]) [facility] [address] [place] [phone] 11/16/2019 12:00:00 AM EST eCW1 ([facility]) [facility] [address] [place] [phone] 11/16/2019 12:00:00 AM EST eCW1 [facility]) [facility] [address] [place] [phone] 11/13/2019 12:00:00 AM EST eCW1 [facility]) Outpatient 11/09/2019 11:48:00 AM EST [facility] Outpatient Attender: Amie Clarke/[place]/Bladimir/Kun ndbrandy 11/01/2019 08:30:00 AM EST MEDENT ([facility] [address] [place] [phone] 10/22/2019 12:00:00 AM EST eCW1 ([facility]) [facility] [address] [place] [phone] 10/19/2019 12:00:00 AM EST eCW1 [facility]) [facility] [address] [place] [phone] 10/19/2019 12:00:00 AM EST eCW1 [facility]) [address] [address] 10/18/2019 12:00:00 AM EST eCW1 [facility]) [address] [address] 10/11/2019 12:00:00 AM EST eCW1 ([facility] [place]) [address] [address] 10/09/2019 12:00:00 AM EST eCW1 ([facility]) [address] [address] 10/04/2019 12:00:00 AM EST eCW1 [facility]) [address] [place] [address] 10/04/2019 12:00:00 AM EST eCW1 [facility]) [address] [address] 09/24/2019 12:00:00 AM EST eCW1 [facility]) [address] [address] 09/21/2019 12:00:00 AM EST eCW1 [facility]) [address] [address] 09/19/2019 12:00:00 AM EST eCW1 [facility]) [address] [address] 09/19/2019 12:00:00 AM EST [facility] Immunizations Vaccine Date Status Description Data Source(s) New in 2011. IIV4 09/04/2020 02:30:00 PM EST completed MEDENT ([facility]) Medications Medication Brand Name Start Date Product Form Dose Route Admi nistrative Instructions Pharmacy Instructions Status Indications Reaction Description Data Source(s) 5 mg 11/12/2020 12:00:00 AM EST tablet 45 TAKE 1/2 TABLET BY MOUTH DAILY TAKE 1/2 TABLET BY MOUTH DAILY SOLD: 11/14/2020 [facility] Acetaminophen 325 MG / Hydrocodone Alexus trate 5 MG Oral Tablet Hydrocodone- Acetaminophen 5-325 MG Hydrocodone-Acetaminophen 5-325 MG 11/10/2020 12:00:00 AM EST 1.0 {tablet_as_needed} active Hydrocodone-Acetaminophen 5-325 MG eCW1 ([facility]) 20 mg 11/10/2020 12:00:00 AM EST tablet 240 TAKE 4 TABLETS BY MOUTH EVERY MORNING TAKE 4 TABLETS BY MOUTH EVERY MORNING SOLD: 11/11/2020 [facility] 25 mg 10/29/2020 12:00:00 AM EST tablet 30 TAKE ONE TABLET BY MOUTH EVERY DAY TAKE ONE TABLET BY MOUTH EVERY DAY SOLD: 10/29/2020 [facility] 20 mg 10/16/2020 12:00:00 AM EST capsule,delayed release (DR/EC) 30 TAKE ONE CAPSULE BY MOUTH DAILY TAKE ONE CAPSULE BY MOUTH DAILY SOLD: 10/16/2020 [facility] 250 mg 10/16/2020 12:00:00 AM EST tablet 30 TAKE ONE TABLET BY MOUTH EVERY DAY TAKE ONE TABLET BY MOUTH EVERY DAY SOLD: 10/16/2020 [facility] atorvastatin 40 MG Oral Tablet ATORVASTATIN CALCIUM 10/13/2020 1 2:00:00 AM EST tablet 30 TAKE ONE TABLET BY MOUTH EVERY D AY TAKE ONE TABLET BY MOUTH EVERY DAY SOLD: 10/13/2020 [facility] 1,250 mcg (50,000 unit) 10/08/2020 12:00:00 AM EST capsule 12 TAKE 1 CAPSULE BY MOUTH EVERY WEEK TAKE 1 CAPSULE BY MOUTH EVERY WEEK SOLD: 10/10/2020 [facility] Acetaminophen 325 MG / Hydrocodone Alexus trate 5 MG Oral Tablet Hydrocodone- Acetaminophen 5-325 MG Hydrocodone-Acetaminophen 5-325 MG 10/08/2020 12:00:00 AM EST 1.0 {tablet_as_needed} active Hydrocodone-Acetaminophen 5-325 MG eCW1 ([facility]) Acetaminophen 325 MG / Hydrocodone Alexus trate 5 MG Oral Tablet Hydrocodone- Acetaminophen 5-325 MG Hydrocodone-Acetaminophen 5-325 MG 10/08/2020 12:00:00 AM EST 1.0 {tablet_as_needed} active Hydrocodone-Acetaminophen 5-325 MG eCW1 ([facility]) Oxygen Concentrator 10L With Tubing And Mask, ALL Supplies 10/06/2020 12:00:00 AM EST active MEDENT ([facility]) Cholecalciferol 00217 UNT Oral Tablet Vitamin D3 Ultra Poten cy 10/06/2020 12:00:00 AM EST ORAL active M EDENT ([facility]) 20 mg 09/30/2020 12:00:00 AM EST tablet 90 TAKE ONE TABLET BY MOUTH EVERY DAY IN THE MORNING TAKE ONE TABLET BY MOUTH EVERY DAY IN THE MORNING SOLD : 09/30/2020 [facility] 75 mg 09/30/2020 12:00:00 AM EST tablet 60 TAKE ONE TABLET BY MOUTH TWICE A DAY TAKE ONE TABLET BY MOUTH TWICE A DAY SOLD: 11/01/2020 [facility] 20 mg 09/30/2020 12:00:00 AM EST tablet 2 TAKE ONE TABLET BY MOUTH EVERY DAY IN THE MORNING TAKE ONE TABLET BY MOUTH EVERY DAY IN THE MORNING SOLD : 11/09/2020 [facility] 75 mg 09/30/2020 12:00:00 AM EST tablet 60 TAKE ONE TABLET BY MOUTH TWICE A DAY TAKE ONE TABLET BY MOUTH TWICE A DAY SOLD: 09/30/2020 [facility] 20 mg 09/20/2020 12:00:00 AM EST tablet 90 TAKE ONE TABLET BY MOUTH TWICE A DAY TAKE ONE TABLET BY MOUTH TWICE A DAY SOLD: 09/21/2020 [facility] Metformin hydrochloride 500 MG Oral Tablet METFORMIN HCL 09/17/2020 12:00:00 AM EST tablet 60 TAKE ONE TABLET BY MOUTH TWI CE A DAY TAKE ONE TABLET BY MOUTH TWICE A DAY SOLD: 09/17/2020 [facility] 500 mg 09/17/2020 12:00:00 AM EST tablet 60 TAKE ONE TABLET BY MOUTH TWICE A DAY TAKE ONE TABLET BY MOUTH TWICE A DAY SOLD: 11/06/2020 [facility] 20 mg 09/15/2020 12:00:00 AM EST capsule,delayed release (DR/EC) 30 TAKE ONE CAPSULE BY MOUTH EVERY DAY TAKE ONE CAPSULE BY MOUTH EVERY DAY SOLD: 11/09/2020 [facility] tizanidine 4 MG Oral Tablet TIZANIDINE HCL 09/15/2020 12:00:00 AM EST tablet 30 TAKE 1/2-1 TABLET BY MOUTH THREE TIMES A DAY NEEDED TAKE 1/2-1 TABLET BY MOUTH THREE TIMES A DAY NEEDED SOLD: 11/01/2020 [facility] 20 mEq 09/15/2020 12:00:00 AM EST tablet extended release 30 TAKE ONE TABLET BY MOUTH EVERY DAY TAKE ONE TABLET BY MOUTH EVERY DAY SOLD: 09/17/2020 [facility] 250 mg 09/15/2020 12:00:00 AM EST tablet 30 TAKE ONE TABLET BY MOUTH EVERY DAY TAKE ONE TABLET BY MOUTH EVERY DAY SOLD: 09/17/2020 [facility] 20 mEq 09/15/2020 12:00:00 AM EST tablet extended release 30 TAKE ONE TABLET BY MOUTH EVERY DAY TAKE ONE TABLET BY MOUTH EVERY DAY SOLD: 11/06/2020 [facility] Albuterol 0.83 MG/ML Inhalation Solution 2.5 mg /3 mL (0.083 %) ALBUTEROL SULFATE 09/15/2020 12:00:00 AM EST solution for nebulization 90 INHALE 1 VIAL VIA NEBULIZER TWICE A DAY NEEDED INHALE 1 VIAL VIA NEBULIZER TWICE A DAY NEEDED SOLD: 09/17/2020 [facility] 75 mg 09/15/2020 12:00:00 AM EST capsule 90 TAKE ONE CAPSULE BY MOUTH EVERY 8 HOURS MAXIMUM DAILY DOSE = 3 TAKE ONE CAPSULE BY MOUTH EVERY 8 HOURS MAXIMUM DAILY DOSE = 3 SOLD: 09/17/2020 [facility] tizanidine 4 MG Oral Tablet TIZANIDINE HCL 09/15/2020 12:00:00 AM EST tablet 30 TAKE 1/2-1 TABLET BY MOUTH THREE TIMES A DAY NEEDED TAKE 1/2-1 TABLET BY MOUTH THREE TIMES A DAY NEEDED SOLD: 09/17/2020 [facility] 90 mcg/actuation 09/15/2020 12:00:00 AM EST HFA aerosol inha ler 25 INHALE ONE PUFF BY MOUTH EVERY 4 HOURS NEEDED INHALE ONE PUFF BY MOUTH EVERY 4 HOURS NEEDED SOLD: 09/17/2020 [facility] 75 mg 09/15/2020 12:00:00 AM EST capsule 90 TAKE ONE CAPSULE BY MOUTH EVERY 8 HOURS MAXIMUM DAILY DOSE = 3 TAKE ONE CAPSULE BY MOUTH EVERY 8 HOURS MAXIMUM DAILY DOSE = 3 SOLD: 11/06/2020 [facility] 20 mg 09/15/2020 12:00:00 AM EST capsule,delayed release (DR/EC) 30 TAKE ONE CAPSULE BY MOUTH EVERY DAY TAKE ONE CAPSULE BY MOUTH EVERY DAY SOLD: 09/17/2020 [facility] 75 mg 09/12/2020 12:00:00 AM EST tablet 30 TAKE ONE TABLET BY MOUTH TWICE A DAY TAKE ONE TABLET BY MOUTH TWICE A DAY SOLD: 09/14/2020 [facility] Bupropion Hydrochloride 75 MG Oral Tablet Bupropion HCL 09/12/2020 12:00:00 AM EST ORAL active [facility] ([facility]) Loratadine 10 MG Oral Tablet [Claritin] Claritin 09/04/2020 12:00:0 0 AM EST ORAL active [facility] ([facility]) Belbuca 150 MCG Belbuca 150 MCG 09/01/2020 12:00:00 AM EST active Belbuca 150 MCG eCW1 ([facility]) Belbuca 150 MCG Belbuca 150 MCG 09/01/2020 12:00:00 AM EST active Belbuca 150 MCG eCW1 ([facility]) Belbuca 150 MCG Belbuca 150 MCG 09/01/2020 12:00:00 AM EST active Belbuca 150 MCG eCW1 ([facility]) Belbuca 150 MCG Belbuca 150 MCG 09/01/2020 12:00:00 AM EST active Belbuca 150 MCG eCW1 ([facility]) Belbuca 150 MCG Belbuca 150 MCG 09/01/2020 12:00:00 AM EST active Belbuca 150 MCG eCW1 ([facility]) Belbuca 150 MCG Belbuca 150 MCG 09/01/2020 12:00:00 AM EST active Belbuca 150 MCG eCW1 ([facility]) Belbuca 150 MCG Belbuca 150 MCG 09/01/2020 12:00:00 AM EST active Belbuca 150 MCG eCW1 ([facility]) Acetaminophen 325 MG / Hydrocodone Alexus trate 5 MG Oral Tablet Hydrocodone- Acetaminophen 5-325 MG Hydrocodone-Acetaminophen 5-325 MG 08/27/2020 12:00:00 AM EDT 1.0 {tablet_as_needed} active Hydrocodone-Acetaminophen 5-325 MG eCW1 ([facility]) 168 HR Buprenorphine 0.01 MG/HR Transdermal Patch [BuT rans] Butrans 10 MCG/HR Butrans 10 MCG/HR 08/27/2020 12:00:00 AM EDT 1.0 {patch_to_skin} active Butrans 10 MCG/HR eCW1 ([facility]) Acetaminophen 325 MG / Hydrocodone Alexus trate 5 MG Oral Tablet Hydrocodone- Acetaminophen 5-325 MG Hydrocodone-Acetaminophen 5-325 MG 08/27/2020 12:00:00 AM EDT 1.0 {tablet_as_needed} active Hydrocodone-Acetaminophen 5-325 MG eCW1 ([facility]) Acetaminophen 325 MG / Hydrocodone Alexus trate 5 MG Oral Tablet Hydrocodone- Acetaminophen 5-325 MG Hydrocodone-Acetaminophen 5-325 MG 08/27/2020 12:00:00 AM EDT 1.0 {tablet_as_needed} active Hydrocodone-Acetaminophen 5-325 MG eCW1 ([facility]) 168 HR Buprenorphine 0.01 MG/HR Transdermal Patch [BuT rans] Butrans 10 MCG/HR Butrans 10 MCG/HR 08/27/2020 12:00:00 AM EDT 1.0 {patch_to_skin} active Butrans 10 MCG/HR eCW1 ([facility]) Acetaminophen 325 MG / Hydrocodone Alexus trate 5 MG Oral Tablet Hydrocodone- Acetaminophen 5-325 MG Hydrocodone-Acetaminophen 5-325 MG 08/27/2020 12:00:00 AM EDT 1.0 {tablet_as_needed} active Hydrocodone-Acetaminophen 5-325 MG eCW1 ([facility]) 168 HR Buprenorphine 0.01 MG/HR Transdermal Patch [BuT rans] Butrans 10 MCG/HR Butrans 10 MCG/HR 08/27/2020 12:00:00 AM EDT 1.0 {patch_to_skin} active Butrans 10 MCG/HR eCW1 ([facility]) Acetaminophen 325 MG / Hydrocodone Alexus trate 5 MG Oral Tablet Hydrocodone- Acetaminophen 5-325 MG Hydrocodone-Acetaminophen 5-325 MG 08/27/2020 12:00:00 AM EDT 1.0 {tablet_as_needed} active Hydrocodone-Acetaminophen 5-325 MG eCW1 ([facility]) Acetaminophen 325 MG / Hydrocodone Alexus trate 5 MG Oral Tablet Hydrocodone- Acetaminophen 5-325 MG Hydrocodone-Acetaminophen 5-325 MG 08/27/2020 12:00:00 AM EDT 1.0 {tablet_as_needed} active Hydrocodone-Acetaminophen 5-325 MG eCW1 ([facility]) Acetaminophen 325 MG / Hydrocodone Alexus trate 5 MG Oral Tablet Hydrocodone- Acetaminophen 5-325 MG Hydrocodone-Acetaminophen 5-325 MG 08/27/2020 12:00:00 AM EDT 1.0 {tablet_as_needed} active Hydrocodone-Acetaminophen 5-325 MG eCW1 ([facility]) 168 HR Buprenorphine 0.01 MG/HR Transdermal Patch [BuT rans] Butrans 10 MCG/HR Butrans 10 MCG/HR 08/27/2020 12:00:00 AM EDT 1.0 {patch_to_skin} active Butrans 10 MCG/HR eCW1 ([facility]) 168 HR Buprenorphine 0.01 MG/HR Transdermal Patch [BuT rans] Butrans 10 MCG/HR Butrans 10 MCG/HR 08/27/2020 12:00:00 AM EDT 1.0 {patch_to_skin} active Butrans 10 MCG/HR eCW1 ([facility]) 168 HR Buprenorphine 0.01 MG/HR Transdermal Patch [BuT rans] Butrans 10 MCG/HR Butrans 10 MCG/HR 08/27/2020 12:00:00 AM EDT 1.0 {patch_to_skin} active Butrans 10 MCG/HR eCW1 ([facility]) 168 HR Buprenorphine 0.01 MG/HR Transdermal Patch [BuT rans] Butrans 10 MCG/HR Butrans 10 MCG/HR 08/27/2020 12:00:00 AM EDT 1.0 {patch_to_skin} active Butrans 10 MCG/HR eCW1 ([facility]) 168 HR Buprenorphine 0.01 MG/HR Transdermal Patch [BuT rans] Butrans 10 MCG/HR Butrans 10 MCG/HR 08/27/2020 12:00:00 AM EDT 1.0 {patch_to_skin} active Butrans 10 MCG/HR eCW1 ([facility]) Prednisone 10 MG Oral Tablet Prednisone 08/27/2020 12:00:00 AM EDT ORAL completed [facility] ([facility] ) Acetaminophen 325 MG / Hydrocodone Alexus trate 5 MG Oral Tablet Hydrocodone- Acetaminophen 5-325 MG Hydrocodone-Acetaminophen 5-325 MG 08/27/2020 12:00:00 AM EDT 1.0 {tablet_as_needed} active Hydrocodone-Acetaminophen 5-325 MG eCW1 ([facility]) 168 HR Buprenorphine 0.01 MG/HR Transdermal Patch [BuT rans] Butrans 10 MCG/HR Butrans 10 MCG/HR 08/27/2020 12:00:00 AM EDT 1.0 {patch_to_skin} active Butrans 10 MCG/HR eCW1 ([facility]) 168 HR Buprenorphine 0.01 MG/HR Transdermal Patch [BuT rans] Butrans 10 MCG/HR Butrans 10 MCG/HR 08/27/2020 12:00:00 AM EDT 1.0 {patch_to_skin} active Butrans 10 MCG/HR eCW1 ([facility]) Acetaminophen 325 MG / Hydrocodone Alexus trate 5 MG Oral Tablet Hydrocodone- Acetaminophen 5-325 MG Hydrocodone-Acetaminophen 5-325 MG 08/27/2020 12:00:00 AM EDT 1.0 {tablet_as_needed} active Hydrocodone-Acetaminophen 5-325 MG eCW1 ([facility]) 168 HR Buprenorphine 0.01 MG/HR Transdermal Patch [BuT rans] Butrans 10 MCG/HR Butrans 10 MCG/HR 08/27/2020 12:00:00 AM EDT 1.0 {patch_to_skin} active Butrans 10 MCG/HR eCW1 ([facility]) 168 HR Buprenorphine 0.01 MG/HR Transdermal Patch [BuT rans] Butrans 10 MCG/HR Butrans 10 MCG/HR 08/27/2020 12:00:00 AM EDT 1.0 {patch_to_skin} active Butrans 10 MCG/HR eCW1 ([facility]) Albuterol 0.83 MG/ML Inhalant Solution Albuterol Sulfate 1 12:00:00 AM EDT active [facility] ([facility]) 0.3 ML Epinephrine 1 MG/ML Auto-Injector [Epipen] Epipen 2-P ak 08/21/2020 12:00:00 AM EDT active M EDENT ([facility]) 200 ACTUAT Albuterol 0.09 MG/ACTUAT Metered Dose Inhaler [Pr oAir] Proair HFA 08/21/2020 12:00:00 AM EDT ORAL active [facility] ([facility]) pregabalin 75 MG Oral Capsule [Lyrica] Lyrica 08/21/2020 12:00:00 AM EDT ORAL active [facility] ([facility] Rolling Walker 1 K 08/14/2020 12:00:00 AM EDT active Rolling Walker 1 eCW1 ([facility]) Rolling Walker 1 K 08/14/2020 12:00:00 AM EDT active Rolling Walker 1 eCW1 ([facility]) Rolling Walker 1 K 08/14/2020 12:00:00 AM EDT active Rolling Walker 1 eCW1 ([facility]) Rolling Walker 1 K 08/14/2020 12:00:00 AM EDT active Rolling Walker 1 eCW1 ([facility]) Rolling Walker 1 K 08/14/2020 12:00:00 AM EDT active Rolling Walker 1 eCW1 ([facility]) Rolling Walker 1 UNK 08/14/2020 12:00:00 AM EDT active Rolling Walker 1 eCW1 ([facility]) Rolling Walker 1 UNK 08/14/2020 12:00:00 AM EDT active Rolling Walker 1 eCW1 ([facility]) Rolling Walker 1 UNK 08/14/2020 12:00:00 AM EDT active Rolling Walker 1 eCW1 ([facility]) Rolling Walker 1 UNK 08/14/2020 12:00:00 AM EDT active Rolling Walker 1 eCW1 ([facility]) Rolling Walker 1 UNK 08/14/2020 12:00:00 AM EDT active Rolling Walker 1 eCW1 ([facility]) Rolling Walker 1 UNK 08/14/2020 12:00:00 AM EDT active Rolling Walker 1 eCW1 ([facility]) Rolling Walker 1 UNK 08/14/2020 12:00:00 AM EDT active Rolling Walker 1 eCW1 ([facility]) Rolling Walker 1 UNK 08/14/2020 12:00:00 AM EDT active Rolling Walker 1 eCW1 ([facility]) Potassium Chloride 20 MEQ Extended Relea se Oral Tablet Potassium Chloride ER 20 MEQ Potassium Chloride ER 20 MEQ 08/07/2020 12:00:00 AM EDT 1.0 {tablet_with_food} active Potassium Chl oride ER 20 MEQ eCW1 ([facility]) Potassium Chloride 20 MEQ Extended Relea se Oral Tablet Potassium Chloride ER 20 MEQ Potassium Chloride ER 20 MEQ 08/07/2020 12:00:00 AM EDT 1.0 {tablet_with_food} active Potassium Chl oride ER 20 MEQ eCW1 ([facility]) Potassium Chloride 20 MEQ Extended Relea se Oral Tablet Potassium Chloride ER 20 MEQ Potassium Chloride ER 20 MEQ 08/07/2020 12:00:00 AM EDT 1.0 {tablet_with_food} active Potassium Chl oride ER 20 MEQ eCW1 ([facility]) Potassium Chloride 20 MEQ Extended Relea se Oral Tablet Potassium Chloride ER 20 MEQ Potassium Chloride ER 20 MEQ 08/07/2020 12:00:00 AM EDT 1.0 {tablet_with_food} active Potassium Chl oride ER 20 MEQ eCW1 ([facility]) Potassium Chloride 20 MEQ Extended Relea se Oral Tablet Potassium Chloride ER 20 MEQ Potassium Chloride ER 20 MEQ 08/07/2020 12:00:00 AM EDT 1.0 {tablet_with_food} active Potassium Chl oride ER 20 MEQ eCW1 ([facility]) Potassium Chloride 20 MEQ Extended Relea se Oral Tablet Potassium Chloride ER 20 MEQ Potassium Chloride ER 20 MEQ 08/07/2020 12:00:00 AM EDT 1.0 {tablet_with_food} active Potassium Chl oride ER 20 MEQ eCW1 ([facility]) Potassium Chloride 20 MEQ Extended Relea se Oral Tablet Potassium Chloride ER 20 MEQ Potassium Chloride ER 20 MEQ 08/07/2020 12:00:00 AM EDT 1.0 {tablet_with_food} active Potassium Chl oride ER 20 MEQ eCW1 ([facility]) Potassium Chloride 20 MEQ Extended Relea se Oral Tablet Potassium Chloride ER 20 MEQ Potassium Chloride ER 20 MEQ 08/07/2020 12:00:00 AM EDT 1.0 {tablet_with_food} active Potassium Chl oride ER 20 MEQ eCW1 ([facility]) Potassium Chloride 20 MEQ Extended Relea se Oral Tablet Potassium Chloride ER 20 MEQ Potassium Chloride ER 20 MEQ 08/07/2020 12:00:00 AM EDT 1.0 {tablet_with_food} active Potassium Chl oride ER 20 MEQ eCW1 ([facility]) Potassium Chloride 20 MEQ Extended Relea se Oral Tablet Potassium Chloride ER 20 MEQ Potassium Chloride ER 20 MEQ 08/07/2020 12:00:00 AM EDT 1.0 {tablet_with_food} active Potassium Chl oride ER 20 MEQ eCW1 ([facility]) Potassium Chloride 20 MEQ Extended Relea se Oral Tablet Potassium Chloride ER 20 MEQ Potassium Chloride ER 20 MEQ 08/07/2020 12:00:00 AM EDT 1.0 {tablet_with_food} active Potassium Chl oride ER 20 MEQ eCW1 ([facility]) Potassium Chloride 20 MEQ Extended Relea se Oral Tablet Potassium Chloride ER 20 MEQ Potassium Chloride ER 20 MEQ 08/07/2020 12:00:00 AM EDT 1.0 {tablet_with_food} active Potassium Chl oride ER 20 MEQ eCW1 ([facility]) Potassium Chloride 20 MEQ Extended Relea se Oral Tablet Potassium Chloride ER 20 MEQ Potassium Chloride ER 20 MEQ 08/07/2020 12:00:00 AM EDT 1.0 {tablet_with_food} active Potassium Chl oride ER 20 MEQ eCW1 ([facility]) Potassium Chloride 20 MEQ Extended Relea se Oral Tablet Potassium Chloride ER 20 MEQ Potassium Chloride ER 20 MEQ 08/07/2020 12:00:00 AM EDT 1.0 {tablet_with_food} active Potassium Chl oride ER 20 MEQ eCW1 ([facility]) Potassium Chloride 20 MEQ Extended Relea se Oral Tablet Potassium Chloride ER 20 MEQ Potassium Chloride ER 20 MEQ 08/07/2020 12:00:00 AM EDT 1.0 {tablet_with_food} active Potassium Chl oride ER 20 MEQ eCW1 ([facility]) icosapent ethyl 1000 MG Oral Capsule [Vascepa] Vascepa 05/15/2020 12:00:00 AM EDT ORAL active [facility] ([facility]) Bisoprolol Fumarate 5 MG Oral Tablet Bisoprolol Fumarate 12:00:00 AM EDT ORAL active [facility] ([facility]) Azithromycin 250 MG Oral Tablet Azithromycin 05/14/2020 12:00:00 AM E DT ORAL active [facility] ([facility]) cetirizine hydrochloride 10 MG Oral Tablet Cetirizine HCL 05/14/2020 12:00:00 AM EDT ORAL active [facility] ([facility]) Omeprazole 20 MG Delayed Release Oral Capsule Omeprazole 05/14/2020 12:00:00 AM EDT ORAL active [facility] ([facility]) tizanidine 4 MG Oral Capsule Tizanidine HCL 05/14/2020 12:00:00 AM EDT ORAL active [facility] ([facility]) 24 HR Propranolol Hydrochloride 60 MG Extended Release Oral Capsule Propranolol HCL ER 05/14/2020 12:00:00 AM EDT ORAL completed [facility] ([facility]) Preservision Areds 2 05/14/2020 12:00:00 AM EDT ORAL active [facility] ([facility]) 12 HR Bupropion Hydrochloride 150 MG Extended Release Oral Tablet Bupropion HCL ER (SR) 05/14/2020 12:00:00 AM EDT ORAL active [facility] ([facility]) Metformin hydrochloride 500 MG Oral Tablet Metformin HCL 05/14/2020 12:00:00 AM EDT ORAL active [facility] ([facility]) Furosemide 20 MG Oral Tablet Furosemide 05/14/2020 12:00:00 AM EDT ORAL active [facility] ([facility]) Aspirin 81 MG Delayed Release Oral Tablet Aspirin 81 2019 12:00:00 AM EDT ORAL active [facility] ( [facility]) Lisinopril 2.5 MG Oral Tablet Lisinopril 05/14/2020 12:00:00 AM EDT ORAL active [facility] ([facility]) gabapentin 300 MG Oral Capsule Gabapentin 05/14/2020 12:00:00 AM EDT ORAL completed [facility] ([facility]) Vitamin B 12 0.5 MG Oral Tablet Vitamin B12 05/14/2020 12:00:00 AM EDT ORAL active [facility] ([facility]) Oxygen - Home 05/14/2020 12:00:00 AM EDT acti ve [facility] ([facility]) atorvastatin 40 MG Oral Tablet Atorvastatin Calcium 05/14/2020 1 2:00:00 AM EDT ORAL active [facility] ( [facility]) Sulfamethoxazole 400 MG / Trimethoprim 8 0 MG Oral Tablet Sulfamethoxazole- Trimethoprim 400-80 MG Sulfamethoxazole-Trimethoprim 400-80 MG 05/05/2020 12:00:00 AM EDT 1.0 {tablet} active Sulfamethoxazole-Trimethoprim 400-80 MG eCW1 ([facility]) Sulfamethoxazole 400 MG / Trimethoprim 8 0 MG Oral Tablet Sulfamethoxazole- Trimethoprim 400-80 MG Sulfamethoxazole-Trimethoprim 400-80 MG 05/05/2020 12:00:00 AM EDT 1.0 {tablet} active Sulfamethoxazole-Trimethoprim 400-80 MG eCW1 ([facility]) Albuterol 0.83 MG/ML Inhalant Solution Albuterol Sulfa te (2.5 MG/3ML) 0.083% Albuterol Sulfate (2.5 MG/3ML) 0.083% 04/25/2020 12:00:00 AM EDT 3.0 {ml} active Albuterol Sulfate (2.5 MG/3M L) 0.083% eCW1 ([facility]) Albuterol 0.83 MG/ML Inhalant Solution Albuterol Sulfa te (2.5 MG/3ML) 0.083% Albuterol Sulfate (2.5 MG/3ML) 0.083% 04/25/2020 12:00:00 AM EDT 3.0 {ml} active Albuterol Sulfate (2.5 MG/3M L) 0.083% eCW1 ([facility]) Albuterol 0.83 MG/ML Inhalant Solution Albuterol Sulfa te (2.5 MG/3ML) 0.083% Albuterol Sulfate (2.5 MG/3ML) 0.083% 04/25/2020 12:00:00 AM EDT 3.0 {ml} active Albuterol Sulfate (2.5 MG/3M L) 0.083% eCW1 ([facility]) Albuterol 0.83 MG/ML Inhalant Solution Albuterol Sulfa te (2.5 MG/3ML) 0.083% Albuterol Sulfate (2.5 MG/3ML) 0.083% 04/25/2020 12:00:00 AM EDT 3.0 {ml} active Albuterol Sulfate (2.5 MG/3M L) 0.083% eCW1 ([facility]) Albuterol 0.83 MG/ML Inhalant Solution Albuterol Sulfa te (2.5 MG/3ML) 0.083% Albuterol Sulfate (2.5 MG/3ML) 0.083% 04/25/2020 12:00:00 AM EDT 3.0 {ml} active Albuterol Sulfate (2.5 MG/3M L) 0.083% eCW1 ([facility]) Albuterol 0.83 MG/ML Inhalant Solution Albuterol Sulfa te (2.5 MG/3ML) 0.083% Albuterol Sulfate (2.5 MG/3ML) 0.083% 04/25/2020 12:00:00 AM EDT 3.0 {ml} active Albuterol Sulfate (2.5 MG/3M L) 0.083% eCW1 ([facility]) Albuterol 0.83 MG/ML Inhalant Solution Albuterol Sulfa te (2.5 MG/3ML) 0.083% Albuterol Sulfate (2.5 MG/3ML) 0.083% 04/25/2020 12:00:00 AM EDT 3.0 {ml} active Albuterol Sulfate (2.5 MG/3M L) 0.083% eCW1 ([facility]) Albuterol 0.83 MG/ML Inhalant Solution Albuterol Sulfa te (2.5 MG/3ML) 0.083% Albuterol Sulfate (2.5 MG/3ML) 0.083% 04/25/2020 12:00:00 AM EDT 3.0 {ml} active Albuterol Sulfate (2.5 MG/3M L) 0.083% eCW1 ([facility]) Albuterol 0.83 MG/ML Inhalant Solution Albuterol Sulfa te (2.5 MG/3ML) 0.083% Albuterol Sulfate (2.5 MG/3ML) 0.083% 04/25/2020 12:00:00 AM EDT 3.0 {ml} active Albuterol Sulfate (2.5 MG/3M L) 0.083% eCW1 ([facility]) Albuterol 0.83 MG/ML Inhalant Solution Albuterol Sulfa te (2.5 MG/3ML) 0.083% Albuterol Sulfate (2.5 MG/3ML) 0.083% 04/25/2020 12:00:00 AM EDT 3.0 {ml} active Albuterol Sulfate (2.5 MG/3M L) 0.083% eCW1 ([facility]) Albuterol 0.83 MG/ML Inhalant Solution Albuterol Sulfa te (2.5 MG/3ML) 0.083% Albuterol Sulfate (2.5 MG/3ML) 0.083% 04/25/2020 12:00:00 AM EDT 3.0 {ml} active Albuterol Sulfate (2.5 MG/3M L) 0.083% eCW1 ([facility]) Albuterol 0.83 MG/ML Inhalant Solution Albuterol Sulfa te (2.5 MG/3ML) 0.083% Albuterol Sulfate (2.5 MG/3ML) 0.083% 04/25/2020 12:00:00 AM EDT 3.0 {ml} active Albuterol Sulfate (2.5 MG/3M L) 0.083% eCW1 ([facility]) Albuterol 0.83 MG/ML Inhalant Solution Albuterol Sulfa te (2.5 MG/3ML) 0.083% Albuterol Sulfate (2.5 MG/3ML) 0.083% 04/25/2020 12:00:00 AM EDT 3.0 {ml} active Albuterol Sulfate (2.5 MG/3M L) 0.083% eCW1 ([facility]) Albuterol 0.83 MG/ML Inhalant Solution Albuterol Sulfa te (2.5 MG/3ML) 0.083% Albuterol Sulfate (2.5 MG/3ML) 0.083% 04/25/2020 12:00:00 AM EDT 3.0 {ml} active Albuterol Sulfate (2.5 MG/3M L) 0.083% eCW1 ([facility]) Albuterol 0.83 MG/ML Inhalant Solution Albuterol Sulfa te (2.5 MG/3ML) 0.083% Albuterol Sulfate (2.5 MG/3ML) 0.083% 04/25/2020 12:00:00 AM EDT 3.0 {ml} active Albuterol Sulfate (2.5 MG/3M L) 0.083% eCW1 ([facility]) Albuterol 0.83 MG/ML Inhalant Solution Albuterol Sulfa te (2.5 MG/3ML) 0.083% Albuterol Sulfate (2.5 MG/3ML) 0.083% 04/25/2020 12:00:00 AM EDT 3.0 {ml} active Albuterol Sulfate (2.5 MG/3M L) 0.083% eCW1 ([facility]) Albuterol 0.83 MG/ML Inhalant Solution Albuterol Sulfa te (2.5 MG/3ML) 0.083% Albuterol Sulfate (2.5 MG/3ML) 0.083% 04/25/2020 12:00:00 AM EDT 3.0 {ml} active Albuterol Sulfate (2.5 MG/3M L) 0.083% eCW1 ([facility]) 0.3 ML Epinephrine 1 MG/ML Auto-Injector [Epipen] EpiP en 2-Hank 0.3 MG/0.3ML EpiPen 2-Hank 0.3 MG/0.3ML 04/23/2020 12:00:00 AM EDT active EpiPen 2-Hank 0.3 MG/0.3ML eCW1 ([facility]) Furosemide 20 MG Oral Tablet Furosemide 20 MG 04/23/2020 12:00:00 AM E DT active Furosemide 20 MG eCW1 ([facility]) Omeprazole 20 MG Delayed Release Oral Capsule Omeprazole 20 MG 04/23/2020 12:00:00 AM EDT active Omeprazo le 20 MG eCW1 ([facility]) 0.3 ML Epinephrine 1 MG/ML Auto-Injector [Epipen] EpiP en 2-Hank 0.3 MG/0.3ML EpiPen 2-Hank 0.3 MG/0.3ML 04/23/2020 12:00:00 AM EDT active EpiPen 2-Hank 0.3 MG/0.3ML eCW1 ([facility]) 0.3 ML Epinephrine 1 MG/ML Auto-Injector [Epipen] EpiP en 2-Hank 0.3 MG/0.3ML EpiPen 2-Hank 0.3 MG/0.3ML 04/23/2020 12:00:00 AM EDT active EpiPen 2-Hank 0.3 MG/0.3ML eCW1 ([facility]) Furosemide 20 MG Oral Tablet Furosemide 20 MG 04/23/2020 12:00:00 AM E DT active Furosemide 20 MG eCW1 ([facility]) Omeprazole 20 MG Delayed Release Oral Capsule Omeprazole 20 MG 04/23/2020 12:00:00 AM EDT active Omeprazo le 20 MG eCW1 ([facility]) tizanidine 4 MG Oral Tablet Tizanidine HCl 4 MG Tizanidine H Cl 4 MG 04/23/2020 12:00:00 AM EDT active Tizanidi ne HCl 4 MG eCW1 ([facility]) Omeprazole 20 MG Delayed Release Oral Capsule Omeprazole 20 MG 04/23/2020 12:00:00 AM EDT active Omeprazo le 20 MG eCW1 ([facility]) Sulfamethoxazole 400 MG / Trimethoprim 8 0 MG Oral Tablet Sulfamethoxazole- Trimethoprim 400-80 MG Sulfamethoxazole-Trimethoprim 400-80 MG 04/23/2020 12:00:00 AM EDT 1.0 {tablet} suspended Sulfamethoxazole-Trimethoprim 400-80 MG eCW1 ([facility]) tizanidine 4 MG Oral Tablet Tizanidine HCl 4 MG Tizanidine H Cl 4 MG 04/23/2020 12:00:00 AM EDT active Tizanidi ne HCl 4 MG eCW1 ([facility]) 0.3 ML Epinephrine 1 MG/ML Auto-Injector [Epipen] EpiP en 2-Hank 0.3 MG/0.3ML EpiPen 2-Hank 0.3 MG/0.3ML 04/23/2020 12:00:00 AM EDT active EpiPen 2-Hank 0.3 MG/0.3ML eCW1 ([facility]) 0.3 ML Epinephrine 1 MG/ML Auto-Injector [Epipen] EpiP en 2-Hank 0.3 MG/0.3ML EpiPen 2-Hank 0.3 MG/0.3ML 04/23/2020 12:00:00 AM EDT active EpiPen 2-Hank 0.3 MG/0.3ML eCW1 ([facility]) Furosemide 20 MG Oral Tablet Furosemide 20 MG 04/23/2020 12:00:00 AM E DT active Furosemide 20 MG eCW1 ([facility]) Omeprazole 20 MG Delayed Release Oral Capsule Omeprazole 20 MG 04/23/2020 12:00:00 AM EDT active Omeprazo le 20 MG eCW1 ([facility]) Omeprazole 20 MG Delayed Release Oral Capsule Omeprazole 20 MG 04/23/2020 12:00:00 AM EDT active Omeprazo le 20 MG eCW1 ([facility]) tizanidine 4 MG Oral Tablet Tizanidine HCl 4 MG Tizanidine H Cl 4 MG 04/23/2020 12:00:00 AM EDT active Tizanidi ne HCl 4 MG eCW1 ([facility]) Omeprazole 20 MG Delayed Release Oral Capsule Omeprazole 20 MG 04/23/2020 12:00:00 AM EDT active Omeprazo le 20 MG eCW1 ([facility]) tizanidine 4 MG Oral Tablet Tizanidine HCl 4 MG Tizanidine H Cl 4 MG 04/23/2020 12:00:00 AM EDT active Tizanidi ne HCl 4 MG eCW1 ([facility]) Omeprazole 20 MG Delayed Release Oral Capsule Omeprazole 20 MG 04/23/2020 12:00:00 AM EDT active Omeprazo le 20 MG eCW1 ([facility]) 0.3 ML Epinephrine 1 MG/ML Auto-Injector [Epipen] EpiP en 2-Hank 0.3 MG/0.3ML EpiPen 2-Hank 0.3 MG/0.3ML 04/23/2020 12:00:00 AM EDT active EpiPen 2-Hank 0.3 MG/0.3ML eCW1 ([facility]) tizanidine 4 MG Oral Tablet Tizanidine HCl 4 MG Tizanidine H Cl 4 MG 04/23/2020 12:00:00 AM EDT active Tizanidi ne HCl 4 MG eCW1 ([facility]) 0.3 ML Epinephrine 1 MG/ML Auto-Injector [Epipen] EpiP en 2-Hank 0.3 MG/0.3ML EpiPen 2-Hank 0.3 MG/0.3ML 04/23/2020 12:00:00 AM EDT active EpiPen 2-Hank 0.3 MG/0.3ML eCW1 ([facility]) Furosemide 20 MG Oral Tablet Furosemide 20 MG 04/23/2020 12:00:00 AM E DT active Furosemide 20 MG eCW1 ([facility]) Omeprazole 20 MG Delayed Release Oral Capsule Omeprazole 20 MG 04/23/2020 12:00:00 AM EDT active Omeprazo le 20 MG eCW1 ([facility]) tizanidine 4 MG Oral Tablet Tizanidine HCl 4 MG Tizanidine H Cl 4 MG 04/23/2020 12:00:00 AM EDT active Tizanidi ne HCl 4 MG eCW1 ([facility]) 0.3 ML Epinephrine 1 MG/ML Auto-Injector [Epipen] EpiP en 2-Hank 0.3 MG/0.3ML EpiPen 2-Hank 0.3 MG/0.3ML 04/23/2020 12:00:00 AM EDT active EpiPen 2-Hank 0.3 MG/0.3ML eCW1 ([facility]) 0.3 ML Epinephrine 1 MG/ML Auto-Injector [Epipen] EpiP en 2-Hank 0.3 MG/0.3ML EpiPen 2-Hank 0.3 MG/0.3ML 04/23/2020 12:00:00 AM EDT active EpiPen 2-Hank 0.3 MG/0.3ML eCW1 ([facility]) tizanidine 4 MG Oral Tablet Tizanidine HCl 4 MG Tizanidine H Cl 4 MG 04/23/2020 12:00:00 AM EDT active Tizanidi ne HCl 4 MG eCW1 ([facility]) Omeprazole 20 MG Delayed Release Oral Capsule Omeprazole 20 MG 04/23/2020 12:00:00 AM EDT active Omeprazo le 20 MG eCW1 ([facility]) 0.3 ML Epinephrine 1 MG/ML Auto-Injector [Epipen] EpiP en 2-Hank 0.3 MG/0.3ML EpiPen 2-Hank 0.3 MG/0.3ML 04/23/2020 12:00:00 AM EDT active EpiPen 2-Hank 0.3 MG/0.3ML eCW1 ([facility]) tizanidine 4 MG Oral Tablet Tizanidine HCl 4 MG Tizanidine H Cl 4 MG 04/23/2020 12:00:00 AM EDT active Tizanidi ne HCl 4 MG eCW1 ([facility]) Furosemide 20 MG Oral Tablet Furosemide 20 MG 04/23/2020 12:00:00 AM E DT active Furosemide 20 MG eCW1 ([facility]) Furosemide 20 MG Oral Tablet Furosemide 20 MG 04/23/2020 12:00:00 AM E DT active Furosemide 20 MG eCW1 ([facility]) Furosemide 20 MG Oral Tablet Furosemide 20 MG 04/23/2020 12:00:00 AM E DT active Furosemide 20 MG eCW1 ([facility]) 0.3 ML Epinephrine 1 MG/ML Auto-Injector [Epipen] EpiP en 2-Hank 0.3 MG/0.3ML EpiPen 2-Hank 0.3 MG/0.3ML 04/23/2020 12:00:00 AM EDT active EpiPen 2-Hank 0.3 MG/0.3ML eCW1 ([facility]) 0.3 ML Epinephrine 1 MG/ML Auto-Injector [Epipen] EpiP en 2-Hank 0.3 MG/0.3ML EpiPen 2-Hank 0.3 MG/0.3ML 04/23/2020 12:00:00 AM EDT active EpiPen 2-Hank 0.3 MG/0.3ML eCW1 ([facility]) Furosemide 20 MG Oral Tablet Furosemide 20 MG 04/23/2020 12:00:00 AM E DT active Furosemide 20 MG eCW1 ([facility]) Prednisone 10 MG Oral Tablet PredniSONE 10 MG PredniSONE 10 MG 04/23/2020 12:00:00 AM EDT active PredniSO NE 10 MG eCW1 ([facility]) Prednisone 10 MG Oral Tablet PredniSONE 10 MG PredniSONE 10 MG 04/23/2020 12:00:00 AM EDT active PredniSO NE 10 MG eCW1 ([facility]) Omeprazole 20 MG Delayed Release Oral Capsule Omeprazole 20 MG 04/23/2020 12:00:00 AM EDT active Omeprazo le 20 MG eCW1 ([facility]) tizanidine 4 MG Oral Tablet Tizanidine HCl 4 MG Tizanidine H Cl 4 MG 04/23/2020 12:00:00 AM EDT active Tizanidi ne HCl 4 MG eCW1 ([facility]) 0.3 ML Epinephrine 1 MG/ML Auto-Injector [Epipen] EpiP en 2-Hank 0.3 MG/0.3ML EpiPen 2-Hank 0.3 MG/0.3ML 04/23/2020 12:00:00 AM EDT active EpiPen 2-Hank 0.3 MG/0.3ML eCW1 ([facility]) tizanidine 4 MG Oral Tablet Tizanidine HCl 4 MG Tizanidine H Cl 4 MG 04/23/2020 12:00:00 AM EDT active Tizanidi ne HCl 4 MG eCW1 ([facility]) Furosemide 20 MG Oral Tablet Furosemide 20 MG 04/23/2020 12:00:00 AM E DT active Furosemide 20 MG eCW1 ([facility]) Omeprazole 20 MG Delayed Release Oral Capsule Omeprazole 20 MG 04/23/2020 12:00:00 AM EDT active Omeprazo le 20 MG eCW1 ([facility]) Omeprazole 20 MG Delayed Release Oral Capsule Omeprazole 20 MG 04/23/2020 12:00:00 AM EDT active Omeprazo le 20 MG eCW1 ([facility]) Furosemide 20 MG Oral Tablet Furosemide 20 MG 04/23/2020 12:00:00 AM E DT active Furosemide 20 MG eCW1 ([facility]) Furosemide 20 MG Oral Tablet Furosemide 20 MG 04/23/2020 12:00:00 AM E DT active Furosemide 20 MG eCW1 ([facility]) tizanidine 4 MG Oral Tablet Tizanidine HCl 4 MG Tizanidine H Cl 4 MG 04/23/2020 12:00:00 AM EDT active Tizanidi ne HCl 4 MG eCW1 ([facility]) Omeprazole 20 MG Delayed Release Oral Capsule Omeprazole 20 MG 04/23/2020 12:00:00 AM EDT active Omeprazo le 20 MG eCW1 ([facility]) Sulfamethoxazole 400 MG / Trimethoprim 8 0 MG Oral Tablet Sulfamethoxazole- Trimethoprim 400-80 MG Sulfamethoxazole-Trimethoprim 400-80 MG 04/23/2020 12:00:00 AM EDT 1.0 {tablet} suspended Sulfamethoxazole-Trimethoprim 400-80 MG eCW1 ([facility]) 0.3 ML Epinephrine 1 MG/ML Auto-Injector [Epipen] EpiP en 2-Hank 0.3 MG/0.3ML EpiPen 2-Hank 0.3 MG/0.3ML 04/23/2020 12:00:00 AM EDT active EpiPen 2-Hank 0.3 MG/0.3ML eCW1 ([facility]) Furosemide 20 MG Oral Tablet Furosemide 20 MG 04/23/2020 12:00:00 AM E DT active Furosemide 20 MG eCW1 ([facility]) 0.3 ML Epinephrine 1 MG/ML Auto-Injector [Epipen] EpiP en 2-Hank 0.3 MG/0.3ML EpiPen 2-Hank 0.3 MG/0.3ML 04/23/2020 12:00:00 AM EDT active EpiPen 2-Hank 0.3 MG/0.3ML eCW1 ([facility]) tizanidine 4 MG Oral Tablet Tizanidine HCl 4 MG Tizanidine H Cl 4 MG 04/23/2020 12:00:00 AM EDT active Tizanidi ne HCl 4 MG eCW1 ([facility]) Furosemide 20 MG Oral Tablet Furosemide 20 MG 04/23/2020 12:00:00 AM E DT active Furosemide 20 MG eCW1 ([facility]) tizanidine 4 MG Oral Tablet Tizanidine HCl 4 MG Tizanidine H Cl 4 MG 04/23/2020 12:00:00 AM EDT active Tizanidi ne HCl 4 MG eCW1 ([facility]) tizanidine 4 MG Oral Tablet Tizanidine HCl 4 MG Tizanidine H Cl 4 MG 04/23/2020 12:00:00 AM EDT active Tizanidi ne HCl 4 MG eCW1 ([facility]) tizanidine 4 MG Oral Tablet Tizanidine HCl 4 MG Tizanidine H Cl 4 MG 04/23/2020 12:00:00 AM EDT active Tizanidi ne HCl 4 MG eCW1 ([facility]) 0.3 ML Epinephrine 1 MG/ML Auto-Injector [Epipen] EpiP en 2-Hank 0.3 MG/0.3ML EpiPen 2-Hank 0.3 MG/0.3ML 04/23/2020 12:00:00 AM EDT active EpiPen 2-Hank 0.3 MG/0.3ML eCW1 ([facility]) Furosemide 20 MG Oral Tablet Furosemide 20 MG 04/23/2020 12:00:00 AM E DT active Furosemide 20 MG eCW1 ([facility]) 0.3 ML Epinephrine 1 MG/ML Auto-Injector [Epipen] EpiP en 2-Hank 0.3 MG/0.3ML EpiPen 2-Hank 0.3 MG/0.3ML 04/23/2020 12:00:00 AM EDT active EpiPen 2-Hank 0.3 MG/0.3ML eCW1 ([facility]) Furosemide 20 MG Oral Tablet Furosemide 20 MG 04/23/2020 12:00:00 AM E DT active Furosemide 20 MG eCW1 ([facility]) Furosemide 20 MG Oral Tablet Furosemide 20 MG 04/23/2020 12:00:00 AM E DT active Furosemide 20 MG eCW1 ([facility]) tizanidine 4 MG Oral Tablet Tizanidine HCl 4 MG Tizanidine H Cl 4 MG 04/23/2020 12:00:00 AM EDT active Tizanidi ne HCl 4 MG eCW1 ([facility]) Omeprazole 20 MG Delayed Release Oral Capsule Omeprazole 20 MG 04/23/2020 12:00:00 AM EDT active Omeprazo le 20 MG eCW1 ([facility]) Omeprazole 20 MG Delayed Release Oral Capsule Omeprazole 20 MG 04/23/2020 12:00:00 AM EDT active Omeprazo le 20 MG eCW1 ([facility]) Omeprazole 20 MG Delayed Release Oral Capsule Omeprazole 20 MG 04/23/2020 12:00:00 AM EDT active Omeprazo le 20 MG eCW1 ([facility]) Furosemide 20 MG Oral Tablet Furosemide 20 MG 04/23/2020 12:00:00 AM E DT active Furosemide 20 MG eCW1 ([facility]) Omeprazole 20 MG Delayed Release Oral Capsule Omeprazole 20 MG 04/23/2020 12:00:00 AM EDT active Omeprazo le 20 MG eCW1 ([facility]) tizanidine 4 MG Oral Tablet Tizanidine HCl 4 MG Tizanidine H Cl 4 MG 04/23/2020 12:00:00 AM EDT active Tizanidi ne HCl 4 MG eCW1 ([facility]) Lisinopril 2.5 MG Oral Tablet Lisinopril 2.5 MG 04/16/2020 12:00:00 AM EDT 1.0 {tablet} active Lisinopril 2.5 MG eCW1 ([facility]) Lisinopril 2.5 MG Oral Tablet Lisinopril 2.5 MG 04/16/2020 12:00:00 AM EDT 1.0 {tablet} active Lisinopril 2.5 MG eCW1 ([facility]) Lisinopril 2.5 MG Oral Tablet Lisinopril 2.5 MG 04/16/2020 12:00:00 AM EDT 1.0 {tablet} active Lisinopril 2.5 MG eCW1 ([facility]) Lisinopril 2.5 MG Oral Tablet Lisinopril 2.5 MG 04/16/2020 12:00:00 AM EDT 1.0 {tablet} active Lisinopril 2.5 MG eCW1 ([facility]) Lisinopril 2.5 MG Oral Tablet Lisinopril 2.5 MG 04/16/2020 12:00:00 AM EDT 1.0 {tablet} active Lisinopril 2.5 MG eCW1 ([facility]) Lisinopril 2.5 MG Oral Tablet Lisinopril 2.5 MG 04/16/2020 12:00:00 AM EDT 1.0 {tablet} active Lisinopril 2.5 MG eCW1 ([facility]) Lisinopril 2.5 MG Oral Tablet Lisinopril 2.5 MG 04/16/2020 12:00:00 AM EDT 1.0 {tablet} active Lisinopril 2.5 MG eCW1 ([facility]) Lisinopril 2.5 MG Oral Tablet Lisinopril 2.5 MG 04/16/2020 12:00:00 AM EDT 1.0 {tablet} active Lisinopril 2.5 MG eCW1 ([facility]) Lisinopril 2.5 MG Oral Tablet Lisinopril 2.5 MG 04/16/2020 12:00:00 AM EDT 1.0 {tablet} active Lisinopril 2.5 MG eCW1 ([facility]) Lisinopril 2.5 MG Oral Tablet Lisinopril 2.5 MG 04/16/2020 12:00:00 AM EDT 1.0 {tablet} active Lisinopril 2.5 MG eCW1 ([facility]) Lisinopril 2.5 MG Oral Tablet Lisinopril 2.5 MG 04/16/2020 12:00:00 AM EDT 1.0 {tablet} active Lisinopril 2.5 MG eCW1 ([facility]) Lisinopril 2.5 MG Oral Tablet Lisinopril 2.5 MG 04/16/2020 12:00:00 AM EDT 1.0 {tablet} active Lisinopril 2.5 MG eCW1 ([facility]) Lisinopril 2.5 MG Oral Tablet Lisinopril 2.5 MG 04/16/2020 12:00:00 AM EDT 1.0 {tablet} active Lisinopril 2.5 MG eCW1 ([facility]) Lisinopril 2.5 MG Oral Tablet Lisinopril 2.5 MG 04/16/2020 12:00:00 AM EDT 1.0 {tablet} active Lisinopril 2.5 MG eCW1 ([facility]) Lisinopril 2.5 MG Oral Tablet Lisinopril 2.5 MG 04/16/2020 12:00:00 AM EDT 1.0 {tablet} active Lisinopril 2.5 MG eCW1 ([facility]) Lisinopril 2.5 MG Oral Tablet Lisinopril 2.5 MG 04/16/2020 12:00:00 AM EDT 1.0 {tablet} active Lisinopril 2.5 MG eCW1 ([facility]) Lisinopril 2.5 MG Oral Tablet Lisinopril 2.5 MG 04/16/2020 12:00:00 AM EDT 1.0 {tablet} active Lisinopril 2.5 MG eCW1 ([facility]) Lisinopril 2.5 MG Oral Tablet Lisinopril 2.5 MG 04/16/2020 12:00:00 AM EDT 1.0 {tablet} active Lisinopril 2.5 MG eCW1 ([facility]) Lisinopril 2.5 MG Oral Tablet Lisinopril 2.5 MG 04/16/2020 12:00:00 AM EDT 1.0 {tablet} active Lisinopril 2.5 MG eCW1 ([facility]) Acetaminophen 325 MG / Hydrocodone Alexus trate 5 MG Oral Tablet Hydrocodone- Acetaminophen 5-325 MG Hydrocodone-Acetaminophen 5-325 MG 02/26/2020 12:00:00 AM EDT active take 1 tablet eCW 1 ([facility]) Acetaminophen 325 MG / Hydrocodone Alexus trate 5 MG Oral Tablet Hydrocodone- Acetaminophen 5-325 MG Hydrocodone-Acetaminophen 5-325 MG 02/26/2020 12:00:00 AM EDT active take 1 tablet eCW 1 ([facility]) Acetaminophen 325 MG / Hydrocodone Alexus trate 5 MG Oral Tablet Hydrocodone- Acetaminophen 5-325 MG Hydrocodone-Acetaminophen 5-325 MG 02/26/2020 12:00:00 AM EDT suspended Hydrocodone-Ac etaminophen 5-325 MG eCW1 ([facility]) Acetaminophen 325 MG / Hydrocodone Alexus trate 5 MG Oral Tablet Hydrocodone- Acetaminophen 5-325 MG Hydrocodone-Acetaminophen 5-325 MG 02/26/2020 12:00:00 AM EDT suspended Hydrocodone-Ac etaminophen 5-325 MG eCW1 ([facility]) Acetaminophen 325 MG / Hydrocodone Laexus trate 5 MG Oral Tablet Hydrocodone- Acetaminophen 5-325 MG Hydrocodone-Acetaminophen 5-325 MG 02/26/2020 12:00:00 AM EDT suspended Hydrocodone-Ac etaminophen 5-325 MG eCW1 ([facility]) Acetaminophen 325 MG / Hydrocodone Alexus trate 5 MG Oral Tablet Hydrocodone- Acetaminophen 5-325 MG Hydrocodone-Acetaminophen 5-325 MG 02/26/2020 12:00:00 AM EDT suspended take 1 tablet eCW1 ([facility]) Acetaminophen 325 MG / Hydrocodone Alexus trate 5 MG Oral Tablet Hydrocodone- Acetaminophen 5-325 MG Hydrocodone-Acetaminophen 5-325 MG 02/26/2020 12:00:00 AM EDT suspended Hydrocodone-Ac etaminophen 5-325 MG eCW1 ([facility]) Acetaminophen 325 MG / Hydrocodone Alexus trate 5 MG Oral Tablet Hydrocodone- Acetaminophen 5-325 MG Hydrocodone-Acetaminophen 5-325 MG 02/26/2020 12:00:00 AM EDT active take 1 tablet eCW 1 ([facility]) Acetaminophen 325 MG / Hydrocodone Alexus trate 5 MG Oral Tablet Hydrocodone- Acetaminophen 5-325 MG Hydrocodone-Acetaminophen 5-325 MG 01/24/2020 12:00:00 AM EDT active take 1 tablet eCW 1 ([facility]) Acetaminophen 325 MG / Hydrocodone Alexus trate 5 MG Oral Tablet Hydrocodone- Acetaminophen 5-325 MG Hydrocodone-Acetaminophen 5-325 MG 01/24/2020 12:00:00 AM EDT active take 1 tablet eCW 1 ([facility]) Omeprazole 20 MG Delayed Release Oral Capsule Omeprazole 01/21/2020 12:00:00 AM EDT ORAL active MEDENT ([facility], ) Fluticasone Propionate Fluticasone Propionate 01/21/2020 12:00:00 AM E DT active MEDENT ([facility], ) cetirizine hydrochloride 10 MG Oral Tablet Cetirizine HCl 10 MG Cetirizine HCl 10 MG 01/07/2020 12:00:00 AM EDT active 1 tablet eCW1 ([facility]) cetirizine hydrochloride 10 MG Oral Tablet Cetirizine HCl 10 MG Cetirizine HCl 10 MG 01/07/2020 12:00:00 AM EDT 1.0 {tablet} activ e Cetirizine HCl 10 MG eCW1 ([facility]) cetirizine hydrochloride 10 MG Oral Tablet Cetirizine HCl 10 MG Cetirizine HCl 10 MG 01/07/2020 12:00:00 AM EDT 1.0 {tablet} activ e Cetirizine HCl 10 MG eCW1 ([facility]) cetirizine hydrochloride 10 MG Oral Tablet Cetirizine HCl 10 MG Cetirizine HCl 10 MG 01/07/2020 12:00:00 AM EDT 1.0 {tablet} activ e Cetirizine HCl 10 MG eCW1 ([facility]) cetirizine hydrochloride 10 MG Oral Tablet Cetirizine HCl 10 MG Cetirizine HCl 10 MG 01/07/2020 12:00:00 AM EDT 1.0 {tablet} activ e Cetirizine HCl 10 MG eCW1 ([facility]) cetirizine hydrochloride 10 MG Oral Tablet Cetirizine HCl 10 MG Cetirizine HCl 10 MG 01/07/2020 12:00:00 AM EDT 1.0 {tablet} activ e Cetirizine HCl 10 MG eCW1 ([facility]) cetirizine hydrochloride 10 MG Oral Tablet Cetirizine HCl 10 MG Cetirizine HCl 10 MG 01/07/2020 12:00:00 AM EDT 1.0 {tablet} activ e Cetirizine HCl 10 MG eCW1 ([facility]) cetirizine hydrochloride 10 MG Oral Tablet Cetirizine HCl 10 MG Cetirizine HCl 10 MG 01/07/2020 12:00:00 AM EDT 1.0 {tablet} activ e Cetirizine HCl 10 MG eCW1 ([facility]) cetirizine hydrochloride 10 MG Oral Tablet Cetirizine HCl 10 MG Cetirizine HCl 10 MG 01/07/2020 12:00:00 AM EDT 1.0 {tablet} activ e Cetirizine HCl 10 MG eCW1 ([facility]) cetirizine hydrochloride 10 MG Oral Tablet Cetirizine HCl 10 MG Cetirizine HCl 10 MG 01/07/2020 12:00:00 AM EDT 1.0 {tablet} activ e Cetirizine HCl 10 MG eCW1 ([facility]) cetirizine hydrochloride 10 MG Oral Tablet Cetirizine HCl 10 MG Cetirizine HCl 10 MG 01/07/2020 12:00:00 AM EDT 1.0 {tablet} activ e Cetirizine HCl 10 MG eCW1 ([facility]) cetirizine hydrochloride 10 MG Oral Tablet Cetirizine HCl 10 MG Cetirizine HCl 10 MG 01/07/2020 12:00:00 AM EDT 1.0 {tablet} activ e Cetirizine HCl 10 MG eCW1 ([facility]) cetirizine hydrochloride 10 MG Oral Tablet Cetirizine HCl 10 MG Cetirizine HCl 10 MG 01/07/2020 12:00:00 AM EDT active 1 tablet eCW1 ([facility]) cetirizine hydrochloride 10 MG Oral Tablet Cetirizine HCl 10 MG Cetirizine HCl 10 MG 01/07/2020 12:00:00 AM EDT 1.0 {tablet} activ e Cetirizine HCl 10 MG eCW1 ([facility]) cetirizine hydrochloride 10 MG Oral Tablet Cetirizine HCl 10 MG Cetirizine HCl 10 MG 01/07/2020 12:00:00 AM EDT 1.0 {tablet} activ e Cetirizine HCl 10 MG eCW1 ([facility]) cetirizine hydrochloride 10 MG Oral Tablet Cetirizine HCl 10 MG Cetirizine HCl 10 MG 01/07/2020 12:00:00 AM EDT 1.0 {tablet} activ e Cetirizine HCl 10 MG eCW1 ([facility]) cetirizine hydrochloride 10 MG Oral Tablet Cetirizine HCl 10 MG Cetirizine HCl 10 MG 01/07/2020 12:00:00 AM EDT 1.0 {tablet} activ e Cetirizine HCl 10 MG eCW1 ([facility]) cetirizine hydrochloride 10 MG Oral Tablet Cetirizine HCl 10 MG Cetirizine HCl 10 MG 01/07/2020 12:00:00 AM EDT 1.0 {tablet} activ e Cetirizine HCl 10 MG eCW1 ([facility]) cetirizine hydrochloride 10 MG Oral Tablet Cetirizine HCl 10 MG Cetirizine HCl 10 MG 01/07/2020 12:00:00 AM EDT active 1 tablet eCW1 ([facility]) cetirizine hydrochloride 10 MG Oral Tablet Cetirizine HCl 10 MG Cetirizine HCl 10 MG 01/07/2020 12:00:00 AM EDT 1.0 {tablet} activ e Cetirizine HCl 10 MG eCW1 ([facility]) cetirizine hydrochloride 10 MG Oral Tablet Cetirizine HCl 10 MG Cetirizine HCl 10 MG 01/07/2020 12:00:00 AM EDT active 1 tablet eCW1 ([facility]) cetirizine hydrochloride 10 MG Oral Tablet Cetirizine HCl 10 MG Cetirizine HCl 10 MG 01/07/2020 12:00:00 AM EDT 1.0 {tablet} activ e Cetirizine HCl 10 MG eCW1 ([facility]) cetirizine hydrochloride 10 MG Oral Tablet Cetirizine HCl 10 MG Cetirizine HCl 10 MG 01/07/2020 12:00:00 AM EDT active 1 tablet eCW1 ([facility]) cetirizine hydrochloride 10 MG Oral Tablet Cetirizine HCl 10 MG Cetirizine HCl 10 MG 01/07/2020 12:00:00 AM EDT 1.0 {tablet} activ e Cetirizine HCl 10 MG eCW1 ([facility]) cetirizine hydrochloride 10 MG Oral Tablet Cetirizine HCl 10 MG Cetirizine HCl 10 MG 01/07/2020 12:00:00 AM EDT 1.0 {tablet} activ e Cetirizine HCl 10 MG eCW1 ([facility]) cetirizine hydrochloride 10 MG Oral Tablet Cetirizine HCl 10 MG Cetirizine HCl 10 MG 01/07/2020 12:00:00 AM EDT 1.0 {tablet} activ e Cetirizine HCl 10 MG eCW1 ([facility]) Nystatin 100 UNT/MG Topical Powder Nystatin 434695 UNI T/GM Nystatin 631343 UNIT/GM 01/03/2020 12:00:00 AM EST 1.0 {application} active Nystatin [id number] UNIT/GM eCW1 ([facility]) Nystatin 100 UNT/MG Topical Powder Nystatin 580107 UNI T/GM Nystatin 432331 UNIT/GM 01/03/2020 12:00:00 AM EST active 1 application eCW1 ([facility]) Nystatin 100 UNT/MG Topical Powder Nystatin 398865 UNI T/GM Nystatin 892311 UNIT/GM 01/03/2020 12:00:00 AM EST active 1 application eCW1 ([facility]) Nystatin 100 UNT/MG Topical Powder Nystatin 223046 UNI T/GM Nystatin 607580 UNIT/GM 01/03/2020 12:00:00 AM EST 1.0 {application} active Nystatin 986194 UNIT/GM eCW1 ([facility]) Nystatin 100 UNT/MG Topical Powder Nystatin 956325 UNI T/GM Nystatin 268637 UNIT/GM 01/03/2020 12:00:00 AM EST 1.0 {application} active Nystatin 585289 UNIT/GM eCW1 ([facility]) Nystatin 100 UNT/MG Topical Powder Nystatin 510026 UNI T/GM Nystatin 879951 UNIT/GM 01/03/2020 12:00:00 AM EST 1.0 {application} active Nystatin 687543 UNIT/GM eCW1 ([facility]) Nystatin 100 UNT/MG Topical Powder Nystatin 113951 UNI T/GM Nystatin 902934 UNIT/GM 01/03/2020 12:00:00 AM EST 1.0 {application} active Nystatin 198685 UNIT/GM eCW1 ([facility]) Nystatin 100 UNT/MG Topical Powder Nystatin 369289 UNI T/GM Nystatin 886140 UNIT/GM 01/03/2020 12:00:00 AM EST 1.0 {application} active Nystatin 004302 UNIT/GM eCW1 ([facility]) Nystatin 100 UNT/MG Topical Powder Nystatin 670986 UNI T/GM Nystatin 530050 UNIT/GM 01/03/2020 12:00:00 AM EST 1.0 {application} active Nystatin 625370 UNIT/GM eCW1 ([facility]) Nystatin 100 UNT/MG Topical Powder Nystatin 293322 UNI T/GM Nystatin 911973 UNIT/GM 01/03/2020 12:00:00 AM EST 1.0 {application} active Nystatin 482302 UNIT/GM eCW1 ([facility]) Nystatin 100 UNT/MG Topical Powder Nystatin 493466 UNI T/GM Nystatin 468019 UNIT/GM 01/03/2020 12:00:00 AM EST 1.0 {application} active Nystatin 519189 UNIT/GM eCW1 ([facility]) Nystatin 100 UNT/MG Topical Powder Nystatin 206453 UNI T/GM Nystatin 283400 UNIT/GM 01/03/2020 12:00:00 AM EST 1.0 {application} active Nystatin 298064 UNIT/GM eCW1 ([facility]) Nystatin 100 UNT/MG Topical Powder Nystatin 651374 UNI T/GM Nystatin 552880 UNIT/GM 01/03/2020 12:00:00 AM EST active 1 application eCW1 ([facility]) Nystatin 100 UNT/MG Topical Powder Nystatin 551108 UNI T/GM Nystatin 864497 UNIT/GM 01/03/2020 12:00:00 AM EST 1.0 {application} active Nystatin 021424 UNIT/GM eCW1 ([facility]) Nystatin 100 UNT/MG Topical Powder Nystatin 369854 UNI T/GM Nystatin 635068 UNIT/GM 01/03/2020 12:00:00 AM EST 1.0 {application} active Nystatin 305533 UNIT/GM eCW1 ([facility]) Nystatin 100 UNT/MG Topical Powder Nystatin 756415 UNI T/GM Nystatin 460141 UNIT/GM 01/03/2020 12:00:00 AM EST 1.0 {application} active Nystatin 531067 UNIT/GM eCW1 ([facility]) Nystatin 100 UNT/MG Topical Powder Nystatin 677989 UNI T/GM Nystatin 188207 UNIT/GM 01/03/2020 12:00:00 AM EST 1.0 {application} active Nystatin 036439 UNIT/GM eCW1 ([facility]) Nystatin 100 UNT/MG Topical Powder Nystatin 569091 UNI T/GM Nystatin 135197 UNIT/GM 01/03/2020 12:00:00 AM EST 1.0 {application} active Nystatin 270431 UNIT/GM [facility] [facility]) Nystatin 100 UNT/MG Topical Powder Nystatin 509013 UNI T/GM Nystatin 107141 UNIT/GM 01/03/2020 12:00:00 AM EST 1.0 {application} active Nystatin 023192 UNIT/GM eCW1 ([facility]) Nystatin 100 UNT/MG Topical Powder Nystatin 985925 UNI T/GM Nystatin 683470 UNIT/GM 01/03/2020 12:00:00 AM EST 1.0 {application} active Nystatin 838575 UNIT/GM eCW1 ([facility]) Nystatin 100 UNT/MG Topical Powder Nystatin 133875 UNI T/GM Nystatin 409529 UNIT/GM 01/03/2020 12:00:00 AM EST 1.0 {application} active Nystatin 984471 UNIT/GM eCW1 ([facility]) Nystatin 100 UNT/MG Topical Powder Nystatin 166251 UNI T/GM Nystatin 849876 UNIT/GM 01/03/2020 12:00:00 AM EST 1.0 {application} active Nystatin 020012 UNIT/GM eCW1 ([facility]) Nystatin 100 UNT/MG Topical Powder Nystatin 410169 UNI T/GM Nystatin 325243 UNIT/GM 01/03/2020 12:00:00 AM EST active 1 application eCW1 ([facility]) Nystatin 100 UNT/MG Topical Powder Nystatin 274189 UNI T/GM Nystatin 188962 UNIT/GM 01/03/2020 12:00:00 AM EST 1.0 {application} active Nystatin 510383 UNIT/GM eCW1 ([facility]) Nystatin 100 UNT/MG Topical Powder Nystatin 001838 UNI T/GM Nystatin 258074 UNIT/GM 01/03/2020 12:00:00 AM EST 1.0 {application} active Nystatin 857204 UNIT/GM eCW1 ([facility]) Nystatin 100 UNT/MG Topical Powder Nystatin 798474 UNI T/GM Nystatin 726063 UNIT/GM 01/03/2020 12:00:00 AM EST active 1 application eCW1 ([facility]) Nystatin 100 UNT/MG Topical Powder Nystatin 216594 UNI T/GM Nystatin 907777 UNIT/GM 01/03/2020 12:00:00 AM EST active 1 application eCW1 ([facility]) Acetaminophen 325 MG / Hydrocodone Alexus trate 5 MG Oral Tablet Hydrocodone- Acetaminophen 5-325 MG Hydrocodone-Acetaminophen 5-325 MG 12/03/2019 12:00:00 AM EST active take 1 tablet eCW 1 ([facility]) Acetaminophen 325 MG / Hydrocodone Alexus trate 5 MG Oral Tablet Hydrocodone- Acetaminophen 5-325 MG Hydrocodone-Acetaminophen 5-325 MG 12/03/2019 12:00:00 AM EST active take 1 tablet eCW 1 ([facility]) Acetaminophen 325 MG / Hydrocodone Alexus trate 5 MG Oral Tablet Hydrocodone- Acetaminophen 5-325 MG Hydrocodone-Acetaminophen 5-325 MG 12/03/2019 12:00:00 AM EST active take 1 tablet eCW 1 ([facility]) Acetaminophen 325 MG / Hydrocodone Alexus trate 5 MG Oral Tablet Hydrocodone- Acetaminophen 5-325 MG Hydrocodone-Acetaminophen 5-325 MG 12/03/2019 12:00:00 AM EST active take 1 tablet eCW 1 ([facility]) 30 ACTUAT fluticasone furoate 0.2 MG/ACT UAT / vilanterol 0.025 MG/ACTUAT Dry Powder Inhaler [Breo] Breo Ellipta 11/22/2019 12:00:00 AM EST RESPIRATORY active MEDENT ([facility], ) Prednisone 10 MG Oral Tablet Prednisone 11/01/2019 12:00:00 AM EST ORAL completed MEDENT ([facility], ) Furosemide 20 MG Oral Tablet Furosemide 11/01/2019 12:00:00 AM EST ORAL active MEDENT ([facility], ) 60 ACTUAT Budesonide 0.16 MG/ACTUAT / fo rmoterol fumarate 0.0045 MG/ACTUAT Metered Dose Inhaler [Symbicort] Symbicort 11/01/2019 12:00:00 AM EST RESPIRATORY completed MEDENT ( [facility], ) Albuterol Sulfate HFA 108 (90 Base) MCG/ACT Albuterol Sulfate HFA 108 (90 Base) MCG/ACT 10/22/2019 12:00:00 AM EST 2.0 {puffs} activ e Albuterol Sulfate HFA 108 (90 Base) MCG/ACT eCW1 ([facility]) Albuterol Sulfate HFA 108 (90 Base) MCG/ACT Albuterol Sulfate HFA 108 (90 Base) MCG/ACT 10/22/2019 12:00:00 AM EST 2.0 {puffs} activ e Albuterol Sulfate HFA 108 (90 Base) MCG/ACT eCW1 ([facility]) Albuterol Sulfate HFA 108 (90 Base) MCG/ACT Albuterol Sulfate HFA 108 (90 Base) MCG/ACT 10/22/2019 12:00:00 AM EST 2.0 {puffs} activ e Albuterol Sulfate HFA 108 (90 Base) MCG/ACT eCW1 ([facility]) Albuterol Sulfate HFA 108 (90 Base) MCG/ACT Albuterol Sulfate HFA 108 (90 Base) MCG/ACT 10/22/2019 12:00:00 AM EST active 2 puffs as needed eCW1 ([facility]) Albuterol Sulfate HFA 108 (90 Base) MCG/ACT Albuterol Sulfate HFA 108 (90 Base) MCG/ACT 10/22/2019 12:00:00 AM EST 2.0 {puffs_as_needed} active Albuterol Sulfate HFA 108 (90 Base) MCG/ACT eCW1 ([facility]) Albuterol Sulfate HFA 108 (90 Base) MCG/ACT Albuterol Sulfate HFA 108 (90 Base) MCG/ACT 10/22/2019 12:00:00 AM EST active 2 puffs as needed eCW1 ([facility]) Albuterol Sulfate HFA 108 (90 Base) MCG/ACT Albuterol Sulfate HFA 108 (90 Base) MCG/ACT 10/22/2019 12:00:00 AM EST 2.0 {puffs_as_needed} active Albuterol Sulfate HFA 108 (90 Base) MCG/ACT eCW1 ([facility]) Albuterol Sulfate HFA 108 (90 Base) MCG/ACT Albuterol Sulfate HFA 108 (90 Base) MCG/ACT 10/22/2019 12:00:00 AM EST 2.0 {puffs} activ e Albuterol Sulfate HFA 108 (90 Base) MCG/ACT eCW1 ([facility]) Albuterol Sulfate HFA 108 (90 Base) MCG/ACT Albuterol Sulfate HFA 108 (90 Base) MCG/ACT 10/22/2019 12:00:00 AM EST active 2 puffs as needed eCW1 ([facility]) Albuterol Sulfate HFA 108 (90 Base) MCG/ACT Albuterol Sulfate HFA 108 (90 Base) MCG/ACT 10/22/2019 12:00:00 AM EST active 2 puffs as needed eCW1 ([facility]) Albuterol Sulfate HFA 108 (90 Base) MCG/ACT Albuterol Sulfate HFA 108 (90 Base) MCG/ACT 10/22/2019 12:00:00 AM EST 2.0 {puffs_as_needed} active Albuterol Sulfate HFA 108 (90 Base) MCG/ACT eCW1 ([facility]) Albuterol Sulfate HFA 108 (90 Base) MCG/ACT Albuterol Sulfate HFA 108 (90 Base) MCG/ACT 10/22/2019 12:00:00 AM EST active 2 puffs as needed eCW1 ([facility]) Hydrocodone-Acetaminophen 5-325 MG UNK 10/22/2019 12:00:00 AM EST active take 1 tablet eCW1 ([facility]) Albuterol Sulfate HFA 108 (90 Base) MCG/ACT Albuterol Sulfate HFA 108 (90 Base) MCG/ACT 10/22/2019 12:00:00 AM EST 2.0 {puffs} activ e Albuterol Sulfate HFA 108 (90 Base) MCG/ACT eCW1 ([facility]) Acetaminophen 325 MG / Hydrocodone Alexus trate 5 MG Oral Tablet Hydrocodone- Acetaminophen 5-325 MG Hydrocodone-Acetaminophen 5-325 MG 10/22/2019 12:00:00 AM EST active take 1 tablet eCW 1 ([facility]) Albuterol Sulfate HFA 108 (90 Base) MCG/ACT Albuterol Sulfate HFA 108 (90 Base) MCG/ACT 10/22/2019 12:00:00 AM EST 2.0 {puffs} activ e Albuterol Sulfate HFA 108 (90 Base) MCG/ACT eCW1 ([facility]) Albuterol Sulfate HFA 108 (90 Base) MCG/ACT Albuterol Sulfate HFA 108 (90 Base) MCG/ACT 10/22/2019 12:00:00 AM EST 2.0 {puffs} activ e Albuterol Sulfate HFA 108 (90 Base) MCG/ACT eCW1 ([facility]) Albuterol Sulfate HFA 108 (90 Base) MCG/ACT Albuterol Sulfate HFA 108 (90 Base) MCG/ACT 10/22/2019 12:00:00 AM EST 2.0 {puffs} activ e Albuterol Sulfate HFA 108 (90 Base) MCG/ACT eCW1 ([facility]) Albuterol Sulfate HFA 108 (90 Base) MCG/ACT Albuterol Sulfate HFA 108 (90 Base) MCG/ACT 10/22/2019 12:00:00 AM EST active 2 puffs as needed eCW1 ([facility]) Albuterol Sulfate HFA 108 (90 Base) MCG/ACT Albuterol Sulfate HFA 108 (90 Base) MCG/ACT 10/22/2019 12:00:00 AM EST 2.0 {puffs} activ e Albuterol Sulfate HFA 108 (90 Base) MCG/ACT eCW1 ([facility]) Albuterol Sulfate HFA 108 (90 Base) MCG/ACT Albuterol Sulfate HFA 108 (90 Base) MCG/ACT 10/22/2019 12:00:00 AM EST active 2 puffs as needed eCW1 ([facility]) Albuterol Sulfate HFA 108 (90 Base) MCG/ACT Albuterol Sulfate HFA 108 (90 Base) MCG/ACT 10/22/2019 12:00:00 AM EST 2.0 {puffs} activ e Albuterol Sulfate HFA 108 (90 Base) MCG/ACT eCW1 ([facility]) Albuterol Sulfate HFA 108 (90 Base) MCG/ACT Albuterol Sulfate HFA 108 (90 Base) MCG/ACT 10/22/2019 12:00:00 AM EST active 2 puffs as needed eCW1 ([facility]) Albuterol Sulfate HFA 108 (90 Base) MCG/ACT Albuterol Sulfate HFA 108 (90 Base) MCG/ACT 10/22/2019 12:00:00 AM EST 2.0 {puffs} activ e Albuterol Sulfate HFA 108 (90 Base) MCG/ACT eCW1 ([facility]) Albuterol Sulfate HFA 108 (90 Base) MCG/ACT Albuterol Sulfate HFA 108 (90 Base) MCG/ACT 10/22/2019 12:00:00 AM EST 2.0 {puffs_as_needed} active Albuterol Sulfate HFA 108 (90 Base) MCG/ACT eCW1 ([facility]) Albuterol Sulfate HFA 108 (90 Base) MCG/ACT Albuterol Sulfate HFA 108 (90 Base) MCG/ACT 10/22/2019 12:00:00 AM EST 2.0 {puffs} activ e Albuterol Sulfate HFA 108 (90 Base) MCG/ACT eCW1 ([facility]) Albuterol Sulfate HFA 108 (90 Base) MCG/ACT UNK 10/22/2019 12: 00:00 AM EST active 2 puffs as needed eC W1 ([facility]) Albuterol Sulfate HFA 108 (90 Base) MCG/ACT Albuterol Sulfate HFA 108 (90 Base) MCG/ACT 10/22/2019 12:00:00 AM EST 2.0 {puffs} activ e Albuterol Sulfate HFA 108 (90 Base) MCG/ACT eCW1 ([facility]) Albuterol Sulfate HFA 108 (90 Base) MCG/ACT Albuterol Sulfate HFA 108 (90 Base) MCG/ACT 10/22/2019 12:00:00 AM EST 2.0 {puffs} activ e Albuterol Sulfate HFA 108 (90 Base) MCG/ACT eCW1 ([facility]) Albuterol Sulfate HFA 108 (90 Base) MCG/ACT Albuterol Sulfate HFA 108 (90 Base) MCG/ACT 10/22/2019 12:00:00 AM EST 2.0 {puffs} activ e Albuterol Sulfate HFA 108 (90 Base) MCG/ACT eCW1 ([facility]) Albuterol Sulfate HFA 108 (90 Base) MCG/ACT Albuterol Sulfate HFA 108 (90 Base) MCG/ACT 10/22/2019 12:00:00 AM EST 2.0 {puffs} activ e Albuterol Sulfate HFA 108 (90 Base) MCG/ACT eCW1 ([facility]) Albuterol Sulfate HFA 108 (90 Base) MCG/ACT Albuterol Sulfate HFA 108 (90 Base) MCG/ACT 10/22/2019 12:00:00 AM EST active 2 puffs as needed eCW1 ([facility]) Albuterol Sulfate HFA 108 (90 Base) MCG/ACT Albuterol Sulfate HFA 108 (90 Base) MCG/ACT 10/22/2019 12:00:00 AM EST 2.0 {puffs} activ e Albuterol Sulfate HFA 108 (90 Base) MCG/ACT eCW1 ([facility]) Acetaminophen 325 MG / Hydrocodone Alexus trate 5 MG Oral Tablet Hydrocodone- Acetaminophen 5-325 MG Hydrocodone-Acetaminophen 5-325 MG 09/21/2019 12:00:00 AM EST active take 1 tablet eCW 1 ([facility]) Acetaminophen 325 MG / Hydrocodone Alexus trate 5 MG Oral Tablet Hydrocodone- Acetaminophen 5-325 MG Hydrocodone-Acetaminophen 5-325 MG 09/21/2019 12:00:00 AM EST active take 1 tablet eCW 1 ([facility]) Acetaminophen 325 MG / Hydrocodone Alexus trate 5 MG Oral Tablet Hydrocodone- Acetaminophen 5-325 MG Hydrocodone-Acetaminophen 5-325 MG 09/21/2019 12:00:00 AM EST active take 1 tablet eCW 1 ([facility]) Acetaminophen 325 MG / Hydrocodone Alexus trate 5 MG Oral Tablet Hydrocodone- Acetaminophen 5-325 MG Hydrocodone-Acetaminophen 5-325 MG 09/21/2019 12:00:00 AM EST active take 1 tablet eCW 1 ([facility]) Insurance Providers Payer name Policy type / Coverage type Policy ID Covered alliance party ID Covered alliance party's relationship to chahal Policy [place] Plan Information [place] [id number] [place] [id number] HUMANA GOLD [id number] SP [id number] HUMANA GOLD PLUS -O/P [id number] 18 [id number] MEDICARE [id number] SP [id number] HUMANA GOLD PLUS -CLINIC [id number] 18 [id number] HUMANA MEDICARE O [id number] 18 [id number] HUMANA GOLD PLUS -PHYSICIAN [id number] HUMANA GOLD [id number] SP [id number] O [id number] S [id number] HUMANA GOLD O [id number] S [id number] [employer]MANA PPO [id number] SP [id number] HU[employer] PPO [id number] SP [id number] Problems, Conditions, and Diagnoses Code Display Name Description Problem Type Effective Dates Data Source(s) 15497024 Allergic rhinitis Allergic rhinitis Problem 09/04/2020 12:00:00 AM EST MEDENT ([facility]) 774325345 Patient post percutaneous transluminal c oronary angioplasty Patient post percutaneous transluminal coronary angioplasty Problem 12:00:00 AM EST MEDENT ([facility]) 33722261 Essential hypertension Essential hypertension Problem 09/04/2020 12:00:00 AM EST MEDENT ([facility]) 994664736 Edema Edema Problem 09/04/2020 12:00:00 AM ES T MEDENT ([facility]) 395550230 Low back pain Low back pain Problem 09/04/2020 12:00:00 AM EST MEDENT ([facility]) 832295174 Recurrent major depressive episodes Recu rrent major depressive episodes Problem 09/04/2020 12:00:00 AM EST MEDENT ([facility]) 78206922 Hyperlipidemia Hyperlipidemia Problem 09/04/2020 12:00: 00 AM EST MEDENT ([facility]) 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 Problem 09/04/2020 12:00:00 AM EST MEDENT ([facility]) M81.8 [id number] Secondary osteoporosis Problem 08/07/2020 12 :00:00 AM EDT eCW1 ([facility]) 052450908 Chronic diastolic heart failure Chronic diastoli c heart failure Problem 05/15/2020 12:00:00 AM EDT [facility] ([facility]) 934314955 Mixed hyperlipidemia Mixed hyperlipidemia Problem 05/15/2020 12:00:00 AM EDT MEDENT ([facility]) [id number] 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 Coronary arteriosclerosis in patient wit h history of previous myocardial infarction Problem 05/15/2020 12:00:00 AM EDT ME DENT ([facility]) 632972212 Dietary management surveillance Dietary manageme nt surveillance Problem 05/15/2020 12:00:00 AM EDT MEDENT ([facility]) 507917611 Obesity Obesity Problem 05/15/2020 12:00:00 AM ED T MEDENT ([facility]) 33711911 Hyperlipidemia Hyperlipidemia Problem 05/15/2020 12:00: 00 AM EDT MEDENT ([facility]) 81377329 Chronic right-sided heart failure Chronic right- sided heart failure Problem 05/15/2020 12:00:00 AM EDT MED[facility] ([facility]) 39140863 Essential hypertension Essential hypertension Problem 05/15/2020 12:00:00 AM EDT MEDENT ([facility]) 271481854 Patient post percutaneous transluminal c oronary angioplasty Patient post percutaneous transluminal coronary angioplasty Problem 12:00:00 AM EDT MEDENT ([facility]) 4928872 Old myocardial infarction Old myocardial infarction Pr oblem 05/15/2020 12:00:00 AM EDT MEDENT ([facility]) I27.81 [id number] Cor pulmonale Problem 05/05/2020 12:00:00 AM EDT eCW1 ([facility]) Z91.030 [id number] Bee sting allergy Problem 04/09/2020 12:00:0 0 AM EDT eCW1 ([facility]) M48.061 [id number] Lumbar spinal stenosis Problem 03/26/2020 12 :00:00 AM EDT eCW1 ([facility]) M48.061 06466394 Lumbar spinal stenosis Problem 03/26/2020 12 :00:00 AM EDT eCW1 ([facility]) M48.062 27894841 Spinal stenosis of lumbar region with neurogenic claudication Problem 02/20/2020 12:00:00 AM EDT eCW1 ([facility]) M48.062 30412806 Spinal stenosis of lumbar region with neurogenic claudication Problem 02/20/2020 12:00:00 AM EDT eCW1 ([facility]) J30.2 967630588 Seasonal allergies Problem 01/07/2020 12:00: 00 AM EDT eCW1 ([facility]) J30.2 829678957 Seasonal allergies Problem 01/07/2020 12:00: 00 AM EDT eCW1 ([facility]) M79.18 31809689 Myalgia, other site Problem 10/26/2019 12:00 :00 AM EST eCW1 ([facility]) M51.16 [id number] Intervertebral disc disorders with radiculopathy, lumbar region Problem 10/26/2019 12:00:00 AM EST eCW1 ([facility]) M54.40 [id number] Lumbago with sciatica, unspecified side P roblem 10/26/2019 12:00:00 AM EST eCW1 ([facility]) M51.16 [id number] Intervertebral disc disorders with radiculopathy, lumbar region Problem 10/26/2019 12:00:00 AM EST eCW1 ([facility]) M54.40 [id number] Lumbago with sciatica, unspecified side P roblem 10/26/2019 12:00:00 AM EST eCW1 ([facility]) M79.18 96728431 Myalgia, other site Problem 10/26/2019 12:00 :00 AM EST [facility] ([facility]) D509 Iron deficiency anemia, unspecified Iron deficie ncy anemia, unspecified Diagnosis 10/17/2020 01:13:00 PM [facility] 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 C hemical 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 Diagnosis 10/06/2020 01:33:00 PM [facility] Z23 Encounter for immunization Encounter for immunization Diagnosis 09/04/2020 03:10:00 PM [facility] M8580 Other specified disorders of bone densit y and structure, unspecified site Other specified disorders of bone density and structure, unspecified site Diagnosis 09/04/2020 03:10:00 PM [facility] K219 Gastro-esophageal reflux disease without esophagitis Gastro-esophageal reflux disease without esophagitis Diagnosis 09/04/2020 03:10:00 PM [facility] E785 Hyperlipidemia, unspecified Hyperlipidemia, unspecifie d Diagnosis 09/04/2020 03:10:00 PM [facility] F339 Major depressive disorder, recurrent, un specified Major depressive disorder, recurrent, unspecified Diagnosis 09/04/2020 03:10:00 PM [facility] M545 Low back pain Low back pain Diagnosis 09/04/2020 03:10:00 PM [facility] R600 Localized edema Localized edema Diagnosis 09/04/2020 03:1 0:00 PM [facility] E119 Type 2 diabetes mellitus without complic ations Type 2 diabetes mellitus without complications Diagnosis 09/04/2020 03:10:00 PM [facility] I10 Essential (primary) hypertension Essential (primary) h ypertension Diagnosis 09/04/2020 03:10:00 PM [facility] Z955 Presence of coronary angioplasty implant and graft Presence of coronary angioplasty implant and graft Diagnosis 09/04/2020 03:10:00 PM [facility] J309 Allergic rhinitis, unspecified Allergic rhinitis, unsp ecified Diagnosis 09/04/2020 03:10:00 PM [facility] Surgeries/Procedures Procedure Description Date Indications Data Source(s) Brief Emotional/Behav Assessment W/ Scoring Doc Per Standard Inst 09/04/2020 12:00:00 AM EST [facility] ([facility]) Admin Patient Focused Health Risk Assessment Instrument 09/04/2020 12:00:00 AM EST [facility] ([facility]) Spirometry 08/27/2020 12:00:00 AM EDT M EDEARNEST ([facility], ) MYOCARDIAL SPECT MULTIPLE STUDIES 06/03/2020 12:00:00 AM EDT MEDENT ([facility]) CV STRS TST XERS&/OR RX CONT ECG PHYS SI&R 06/03/2020 12:00:00 AM [facility]T [facility] ECG ROUTINE ECG W/LEAST 12 LDS W/I&R 05/15/2020 12:00: 00 AM EDT [facility]) Arterial Pressure Waveform Analysis For Assessment Of Centra l Art 05/15/2020 12:00:00 AM EDT MEDENT ([facility]) Lumbar/Sacral w/ Imaging 03/26/2020 12:00:00 AM EDT eCW1 ([facility]) ESTABILISHED PATIENT [facility] F[facility] CHARGE 020 12:00:00 AM EDT eCW1 ([facility]) Bronchospasm Evaluation 03/12/2020 12:00:00 AM EDT MEDENT ([facility], ) Maximum Breathing Capacity, Maximal Voluntary Ventilation 03/12/2020 12:00:00 AM EDT [facility] ([facility] ) Plethysmography Determination Lung Volumes & Per Airway Resi st 03/12/2020 12:00:00 AM EDT MEDENT ([facility], ) DIFFUSING CAPACITY 03/12/2020 12:00:00 AM EDT MEDENT ([facility], ) PHYSICIAN TELEPHONE EVALUATION 11-20 MIN 03/11/2020 12 :00:00 AM EDT eCW1 ([facility]) RADXPS IN END [id number] [id number] 01/01/2020 12:00:00 AM ES T eCW1 ([facility]) Office Visit, Est Pt., Level 2 FC 12/03/2019 12:00:00 AM EST eCW1 ([facility]) Office Visit, Est Pt., Level 3 PC 12/03/2019 12:00:00 AM EST eCW1 ([facility]) Aerosol Or Vapor Inhalations 11/26/2019 12:00:00 AM ES T MEDENT ([facility], ) Spirometry 11/01/2019 12:00:00 AM EST M EDENT ([facility], ) Aerosol Or Vapor Inhalations 11/01/2019 12:00:00 AM ES T MEDENT ([facility], ) Eligible professional attests to gaetano dinero in the medical record they obtained, updated, or reviewed the patient's current medications 10/19/2019 12:00:00 AM EST eCW1 ([facility]) Pain assessment documented as positive u sing a standardized tool and a follow-up plan is documented 10/19/2019 12:00:00 AM EST e CW1 ([facility]) Office Visit, Est Pt., Level 4 PC 09/21/2019 12:00:00 AM EST eCW1 ([facility]) Results ID Date Data Source [id number] 10/17/2020 01:21:00 PM EST MEDENT ([facility]) Name Value Range Interpretation Code Description Data Debi rce(s) Supporting Document(s) Iron 70 ug/dL 42-135 MED[facility] ([facility]) FASTING 12 HOUR~.~.~<DG1.3.1>Z00.01</DG1.3.1><DG1.3.1>I10</DG1.3.1><DG1.3.1>E11.9</DG1.3.1> <DG1.3 Uibc 224 ug/dL 112-347 MEDENT ([facility]) FASTING 12 HOUR~.~.~<DG1.3.1>Z00.01</DG1.3.1><DG1.3.1>I10</DG1.3.1><DG1.3.1>E11.9</DG1.3.1> <DG1.3 Tibc 294 ug/dL 250-450 MEDENT ([facility]) FASTING 12 HOUR~.~.~<DG1.3.1>Z00.01</DG1.3.1><DG1.3.1>I10</DG1.3.1><DG1.3.1>E11.9</DG1.3.1> <DG1.3 Iron Sat 24 % MED[facility] ([facility]) FASTING 12 HOUR~.~.~<DG1.3.1>Z00.01</DG1.3.1><DG1.3.1>I10</DG1.3.1><DG1.3.1>E11.9</DG1.3.1> <DG1.3 ID Date Data Source [id number] 10/17/2020 01:21:00 PM EST [facility] Name Value Range Interpretation Code Description Data Debi rce(s) Supporting Document(s) Calcidiol [Mass/volume] in Serum or Plasma 27 ng/mL [facility] ([facility]) FASTING 12 HOUR~.~.~<DG1.3.1>Z00.01</DG1.3.1><DG1.3.1>I10</DG1.3.1><DG1.3.1>E11.9</DG1.3.1> <DG1.3 Hemoglobin A1c/Hemoglobin.total in Blood 5.8 % 4.4-6.1 MED[facility] ([facility]) FASTING 12 HOUR~.~.~<DG1.3.1>Z00.01</DG1.3.1><DG1.3.1>I10</DG1.3.1><DG1.3.1>E11.9</DG1.3.1> <DG1.3 Thyrotropin [Units/volume] in Serum or Plasma 3.37 uIU/mL 0.47-5.01 MED[facility] ([facility]) FASTING 12 HOUR~.~.~<DG1.3.1>Z00.01</DG1.3.1><DG1.3.1>I10</DG1.3.1><DG1.3.1>E11.9</DG1.3.1> <DG1.3 Thyroxine (T4) free [Mass/volume] in Serum or Plasma 1.28 ng/dL 0.93- 1.70 MED[facility] ([facility]) FASTING 12 HOUR~.~.~<DG1.3.1>Z00.01</DG1.3.1><DG1.3.1>I10</DG1.3.1><DG1.3.1>E11.9</DG1.3.1> <DG1.3 ID Date Data Source [id number] 10/17/2020 01:21:00 PM EST MEDENT ([facility]) Name Value Range Interpretation Code Description Data Debi rce(s) Supporting Document(s) Cve Panel [facility] test result [facility] FASTING 12 HOUR~.~.~<DG1.3.1>Z00.01</DG1.3.1><DG1.3.1>I10</DG1.3.1><DG1.3.1>E11.9</DG1.3.1> <DG1.3 Cholesterol 115 mg/dL 131-200 Below low normal [facility] ([facility]) FASTING 12 HOUR~.~.~<DG1.3.1>Z00.01</DG1.3.1><DG1.3.1>I10</DG1.3.1><DG1.3.1>E11.9</DG1.3.1> <DG1.3 LDL 59 mg/dL 65-175 Below low normal [facility] ([facility]) FASTING 12 HOUR~.~.~<DG1.3.1>Z00.01</DG1.3.1><DG1.3.1>I10</DG1.3.1><DG1.3.1>E11.9</DG1.3.1> <DG1.3 Triglycerides 183 mg/dL 35-160 Above high normal [facility] NT ([facility]) FASTING 12 HOUR~.~.~<DG1.3.1>Z00.01</DG1.3.1><DG1.3.1>I10</DG1.3.1><DG1.3.1>E11.9</DG1.3.1> <DG1.3 HDL 30 mg/dL 29-86 [facility] ([facility] [facility]) FASTING 12 HOUR~.~.~<DG1.3.1>Z00.01</DG1.3.1><DG1.3.1>I10</DG1.3.1><DG1.3.1>E11.9</DG1.3.1> <DG1.3 LDL/HDL 1.97 1.47-3.22 [facility] ([facility]) FASTING 12 HOUR~.~.~<DG1.3.1>Z00.01</DG1.3.1><DG1.3.1>I10</DG1.3.1><DG1.3.1>E11.9</DG1.3.1> <DG1.3 Risk Factor 3.8 3.2-4.4 [facility] ([facility]) FASTING 12 HOUR~.~.~<DG1.3.1>Z00.01</DG1.3.1><DG1.3.1>I10</DG1.3.1><DG1.3.1>E11.9</DG1.3.1> <DG1.3 ID Date Data Source [id number] 10/17/2020 01:21:00 PM EST [facility] ([facility]) Name Value Range Interpretation Code Description Data Debi rce(s) Supporting Document(s) Comprehensive [employer] Laboratory test result [facility] ([facility]) FASTING 12 HOUR~.~.~<DG1.3.1>Z00.01</DG1.3.1><DG1.3.1>I10</DG1.3.1><DG1.3.1>E11.9</DG1.3.1> <DG1.3 Potassium 4.1 meq/L 3.6-5.0 [facility] ([facility]) FASTING 12 HOUR~.~.~<DG1.3.1>Z00.01</DG1.3.1><DG1.3.1>I10</DG1.3.1><DG1.3.1>E11.9</DG1.3.1> <DG1.3 Sodium 142 meq/L 134-153 [facility] ([facility]) FASTING 12 HOUR~.~.~<DG1.3.1>Z00.01</DG1.3.1><DG1.3.1>I10</DG1.3.1><DG1.3.1>E11.9</DG1.3.1> <DG1.3 Chloride 103 meq/L 98-107 [facility] ([facility]) FASTING 12 HOUR~.~.~<DG1.3.1>Z00.01</DG1.3.1><DG1.3.1>I10</DG1.3.1><DG1.3.1>E11.9</DG1.3.1> <DG1.3 Glucose 70 mg/dL 65-110 [facility] ([facility]) FASTING 12 HOUR~.~.~<DG1.3.1>Z00.01</DG1.3.1><DG1.3.1>I10</DG1.3.1><DG1.3.1>E11.9</DG1.3.1> <DG1.3 Co2 26 meq/L 22-30 [facility] ([facility]) FASTING 12 HOUR~.~.~<DG1.3.1>Z00.01</DG1.3.1><DG1.3.1>I10</DG1.3.1><DG1.3.1>E11.9</DG1.3.1> <DG1.3 BUN 22 mg/dL 7-21 Above high normal [facility] ([facility]) FASTING 12 HOUR~.~.~<DG1.3.1>Z00.01</DG1.3.1><DG1.3.1>I10</DG1.3.1><DG1.3.1>E11.9</DG1.3.1> <DG1.3 Creatinine 1.2 mg/dL 0.7-1.5 [facility] ([facility]) FASTING 12 HOUR~.~.~<DG1.3.1>Z00.01</DG1.3.1><DG1.3.1>I10</DG1.3.1><DG1.3.1>E11.9</DG1.3.1> <DG1.3 BUN/Creat 18 8-27 [facility] ([facility]) FASTING 12 HOUR~.~.~<DG1.3.1>Z00.01</DG1.3.1><DG1.3.1>I10</DG1.3.1><DG1.3.1>E11.9</DG1.3.1> <DG1.3 Albumin 4.3 g/dL 3.9-5.0 [facility] ([facility]) FASTING 12 HOUR~.~.~<DG1.3.1>Z00.01</DG1.3.1><DG1.3.1>I10</DG1.3.1><DG1.3.1>E11.9</DG1.3.1> <DG1.3 Total Protein 6.5 g/dL 6.3-8.2 [facility] ([facility]) FASTING 12 HOUR~.~.~<DG1.3.1>Z00.01</DG1.3.1><DG1.3.1>I10</DG1.3.1><DG1.3.1>E11.9</DG1.3.1> <DG1.3 A/G Ratio 2.0 0.8-2.0 [facility] ([facility]) FASTING 12 HOUR~.~.~<DG1.3.1>Z00.01</DG1.3.1><DG1.3.1>I10</DG1.3.1><DG1.3.1>E11.9</DG1.3.1> <DG1.3 Globulin 2.2 GM/DL 2.4-3.2 Below low normal [facility] ( [facility]) FASTING 12 HOUR~.~.~<DG1.3.1>Z00.01</DG1.3.1><DG1.3.1>I10</DG1.3.1><DG1.3.1>E11.9</DG1.3.1> <DG1.3 Calcium 9.7 mg/dL 8.4-10.2 [facility] ([facility]) FASTING 12 HOUR~.~.~<DG1.3.1>Z00.01</DG1.3.1><DG1.3.1>I10</DG1.3.1><DG1.3.1>E11.9</DG1.3.1> <DG1.3 Total Bili Laboratory test result 0.2-1.3 [facility] ([facility]) FASTING 12 HOUR~.~.~<DG1.3.1>Z00.01</DG1.3.1><DG1.3.1>I10</DG1.3.1><DG1.3.1>E11.9</DG1.3.1> <DG1.3 Alkaline Phos 139 U/L 38-126 Above high normal [facility] ([facility]) FASTING 12 HOUR~.~.~<DG1.3.1>Z00.01</DG1.3.1><DG1.3.1>I10</DG1.3.1><DG1.3.1>E11.9</DG1.3.1> <DG1.3 Sgot/Ast 20 U/L 5-40 [facility] ([facility]) FASTING 12 HOUR~.~.~<DG1.3.1>Z00.01</DG1.3.1><DG1.3.1>I10</DG1.3.1><DG1.3.1>E11.9</DG1.3.1> <DG1.3 SGPT/Alt 25 U/L 7-56 [facility] ([facility]) FASTING 12 HOUR~.~.~<DG1.3.1>Z00.01</DG1.3.1><DG1.3.1>I10</DG1.3.1><DG1.3.1>E11.9</DG1.3.1> <DG1.3 Anion Gap 13.0 mmol/L 8.0-16.0 [facility] ([facility]) FASTING 12 HOUR~.~.~<DG1.3.1>Z00.01</DG1.3.1><DG1.3.1>I10</DG1.3.1><DG1.3.1>E11.9</DG1.3.1> <DG1.3 Non-Aa GFR 47 mL/min [facility] ([facility]) FASTING 12 HOUR~.~.~<DG1.3.1>Z00.01</DG1.3.1><DG1.3.1>I10</DG1.3.1><DG1.3.1>E11.9</DG1.3.1> <DG1.3 Age 70 yrs [facility] ([facility]) FASTING 12 HOUR~.~.~<DG1.3.1>Z00.01</DG1.3.1><DG1.3.1>I10</DG1.3.1><DG1.3.1>E11.9</DG1.3.1> <DG1.3 Afr Amer GFR Laboratory test result [facility] ([facility]) FASTING 12 HOUR~.~.~<DG1.3.1>Z00.01</DG1.3.1><DG1.3.1>I10</DG1.3.1><DG1.3.1>E11.9</DG1.3.1> <DG1.3 ID Date Data Source [id number] 10/17/2020 01:21:00 PM EST [facility] ([facility]) Name Value Range Interpretation Code Description Data Debi rce(s) Supporting Document(s) Urinalysis Laboratory test result [facility] ([facility]) FASTING 12 HOUR~.~.~<DG1.3.1>Z00.01</DG1.3.1><DG1.3.1>I10</DG1.3.1><DG1.3.1>E11.9</DG1.3.1> <DG1.3 Source Laboratory test result [facility] ([facility]) FASTING 12 HOUR~.~.~<DG1.3.1>Z00.01</DG1.3.1><DG1.3.1>I10</DG1.3.1><DG1.3.1>E11.9</DG1.3.1> <DG1.3 Color Laboratory test result [facility] ([facility]) FASTING 12 HOUR~.~.~<DG1.3.1>Z00.01</DG1.3.1><DG1.3.1>I10</DG1.3.1><DG1.3.1>E11.9</DG1.3.1> <DG1.3 Spec [place] 1.015 1.001-1.030 [facility] ([facility]) FASTING 12 HOUR~.~.~<DG1.3.1>Z00.01</DG1.3.1><DG1.3.1>I10</DG1.3.1><DG1.3.1>E11.9</DG1.3.1> <DG1.3 Clarity Laboratory test result [facility] ([facility]) FASTING 12 HOUR~.~.~<DG1.3.1>Z00.01</DG1.3.1><DG1.3.1>I10</DG1.3.1><DG1.3.1>E11.9</DG1.3.1> <DG1.3 pH 5 5-9 [facility] ([facility]) FASTING 12 HOUR~.~.~<DG1.3.1>Z00.01</DG1.3.1><DG1.3.1>I10</DG1.3.1><DG1.3.1>E11.9</DG1.3.1> <DG1.3 Glucose Laboratory test result [facility] ([facility]) FASTING 12 HOUR~.~.~<DG1.3.1>Z00.01</DG1.3.1><DG1.3.1>I10</DG1.3.1><DG1.3.1>E11.9</DG1.3.1> <DG1.3 Bilirubin Laboratory test result [facility] ([facility]) FASTING 12 HOUR~.~.~<DG1.3.1>Z00.01</DG1.3.1><DG1.3.1>I10</DG1.3.1><DG1.3.1>E11.9</DG1.3.1> <DG1.3 Ketone Laboratory test result [facility] ([facility]) FASTING 12 HOUR~.~.~<DG1.3.1>Z00.01</DG1.3.1><DG1.3.1>I10</DG1.3.1><DG1.3.1>E11.9</DG1.3.1> <DG1.3 Nitrite Laboratory test result [facility] ([facility]) FASTING 12 HOUR~.~.~<DG1.3.1>Z00.01</DG1.3.1><DG1.3.1>I10</DG1.3.1><DG1.3.1>E11.9</DG1.3.1> <DG1.3 Protein Laboratory test result [facility] ([facility]) FASTING 12 HOUR~.~.~<DG1.3.1>Z00.01</DG1.3.1><DG1.3.1>I10</DG1.3.1><DG1.3.1>E11.9</DG1.3.1> <DG1.3 Blood Laboratory test result [facility] ([facility]) FASTING 12 HOUR~.~.~<DG1.3.1>Z00.01</DG1.3.1><DG1.3.1>I10</DG1.3.1><DG1.3.1>E11.9</DG1.3.1> <DG1.3 Leuk Est Laboratory test result [facility]) FASTING 12 HOUR~.~.~<DG1.3.1>Z00.01</DG1.3.1><DG1.3.1>I10</DG1.3.1><DG1.3.1>E11.9</DG1.3.1> <DG1.3 Urobilinogen Laboratory test result [facility] ([facility]) FASTING 12 HOUR~.~.~<DG1.3.1>Z00.01</DG1.3.1><DG1.3.1>I10</DG1.3.1><DG1.3.1>E11.9</DG1.3.1> <DG1.3 [facility]scopic [facility] H[facility]~.~.~<DG1.3.1>Z00.01</DG1.3.1><DG1.3.1>I10</DG1.3.1><DG1.3.1>E11.9</DG1.3.1> <DG1.3 ID Date Data Source [id number] 10/17/2020 01:21:00 PM EST [facility] ([facility]) Name Value Range Interpretation Code Description Data Debi rce(s) Supporting Document(s) CBC W/Automated Diff Laboratory test result [facility] ([facility]) FASTING 12 HOUR~.~.~<DG1.3.1>Z00.01</DG1.3.1><DG1.3.1>I10</DG1.3.1><DG1.3.1>E11.9</DG1.3.1> <DG1.3 WBC 12.6 10^3/uL 4.2-11.0 Above high normal [facility] ([facility]) FASTING 12 HOUR~.~.~<DG1.3.1>Z00.01</DG1.3.1><DG1.3.1>I10</DG1.3.1><DG1.3.1>E11.9</DG1.3.1> <DG1.3 RBC 4.75 10^6/uL 4.20-5.40 [facility] ([facility]) FASTING 12 HOUR~.~.~<DG1.3.1>Z00.01</DG1.3.1><DG1.3.1>I10</DG1.3.1><DG1.3.1>E11.9</DG1.3.1> <DG1.3 Hemoglobin 12.6 g/dL 12.0-16.0 [facility] ([facility]) FASTING 12 HOUR~.~.~<DG1.3.1>Z00.01</DG1.3.1><DG1.3.1>I10</DG1.3.1><DG1.3.1>E11.9</DG1.3.1> <DG1.3 Hematocrit 40.5 % 37.0-47.0 [facility] ([facility]) FASTING 12 HOUR~.~.~<DG1.3.1>Z00.01</DG1.3.1><DG1.3.1>I10</DG1.3.1><DG1.3.1>E11.9</DG1.3.1> <DG1.3 MCH 26.5 pg 27.0-34.0 Below low normal [facility] ( [facility]) FASTING 12 HOUR~.~.~<DG1.3.1>Z00.01</DG1.3.1><DG1.3.1>I10</DG1.3.1><DG1.3.1>E11.9</DG1.3.1> <DG1.3 MCV 85.3 fL 81.0-101 [facility] ([facility]) FASTING 12 HOUR~.~.~<DG1.3.1>Z00.01</DG1.3.1><DG1.3.1>I10</DG1.3.1><DG1.3.1>E11.9</DG1.3.1> <DG1.3 MCHC 31.1 g/dL 31.0-36.0 [facility] ([facility]) FASTING 12 HOUR~.~.~<DG1.3.1>Z00.01</DG1.3.1><DG1.3.1>I10</DG1.3.1><DG1.3.1>E11.9</DG1.3.1> <DG1.3 RDW 17.6 % 11.5-14.5 Above high normal [facility] ([facility]) FASTING 12 HOUR~.~.~<DG1.3.1>Z00.01</DG1.3.1><DG1.3.1>I10</DG1.3.1><DG1.3.1>E11.9</DG1.3.1> <DG1.3 Platelets 326 10^3/uL 150-450 [facility] ([facility]) FASTING 12 HOUR~.~.~<DG1.3.1>Z00.01</DG1.3.1><DG1.3.1>I10</DG1.3.1><DG1.3.1>E11.9</DG1.3.1> <DG1.3 Neut 79.8 % 37.0-80.0 [facility] ([facility]) FASTING 12 HOUR~.~.~<DG1.3.1>Z00.01</DG1.3.1><DG1.3.1>I10</DG1.3.1><DG1.3.1>E11.9</DG1.3.1> <DG1.3 MPV 10.2 fL 7.4-10.4 [facility] ([facility]) FASTING 12 HOUR~.~.~<DG1.3.1>Z00.01</DG1.3.1><DG1.3.1>I10</DG1.3.1><DG1.3.1>E11.9</DG1.3.1> <DG1.3 Lymph 10.5 % 25.0-40.0 Below low normal [facility] ( [facility]) FASTING 12 HOUR~.~.~<DG1.3.1>Z00.01</DG1.3.1><DG1.3.1>I10</DG1.3.1><DG1.3.1>E11.9</DG1.3.1> <DG1.3 Trigg 6.3 % 3.0-8.0 [facility] ([facility]) FASTING 12 HOUR~.~.~<DG1.3.1>Z00.01</DG1.3.1><DG1.3.1>I10</DG1.3.1><DG1.3.1>E11.9</DG1.3.1> <DG1.3 Eos 2.2 % 0.0-7.0 [facility] ([facility]) FASTING 12 HOUR~.~.~<DG1.3.1>Z00.01</DG1.3.1><DG1.3.1>I10</DG1.3.1><DG1.3.1>E11.9</DG1.3.1> <DG1.3 %Ig 0.5 % 0.0-0.0 Above high normal [facility] ([facility]) FASTING 12 HOUR~.~.~<DG1.3.1>Z00.01</DG1.3.1><DG1.3.1>I10</DG1.3.1><DG1.3.1>E11.9</DG1.3.1> <DG1.3 Baso 0.7 % 0.0-2.5 [facility] ([facility]) FASTING 12 HOUR~.~.~<DG1.3.1>Z00.01</DG1.3.1><DG1.3.1>I10</DG1.3.1><DG1.3.1>E11.9</DG1.3.1> <DG1.3 #Neut 10.06 10^3/uL 2.00-6.90 Above high normal [facility] ([facility]) FASTING 12 HOUR~.~.~<DG1.3.1>Z00.01</DG1.3.1><DG1.3.1>I10</DG1.3.1><DG1.3.1>E11.9</DG1.3.1> <DG1.3 %NRBC 0.0 % 0.0-0.0 [facility] ([facility]) FASTING 12 HOUR~.~.~<DG1.3.1>Z00.01</DG1.3.1><DG1.3.1>I10</DG1.3.1><DG1.3.1>E11.9</DG1.3.1> <DG1.3 #Lymph 1.33 10^3/uL 0.60-3.40 [facility] ([facility]) FASTING 12 HOUR~.~.~<DG1.3.1>Z00.01</DG1.3.1><DG1.3.1>I10</DG1.3.1><DG1.3.1>E11.9</DG1.3.1> <DG1.3 #Trigg 0.80 10^3/uL 0.00-0.90 [facility] ([facility]) FASTING 12 HOUR~.~.~<DG1.3.1>Z00.01</DG1.3.1><DG1.3.1>I10</DG1.3.1><DG1.3.1>E11.9</DG1.3.1> <DG1.3 #Baso 0.09 10^3/uL 0.00-0.20 [facility] ([facility]) FASTING 12 HOUR~.~.~<DG1.3.1>Z00.01</DG1.3.1><DG1.3.1>I10</DG1.3.1><DG1.3.1>E11.9</DG1.3.1> <DG1.3 #Eos 0.28 10^3/uL 0.00-0.70 [facility] ([facility]) FASTING 12 HOUR~.~.~<DG1.3.1>Z00.01</DG1.3.1><DG1.3.1>I10</DG1.3.1><DG1.3.1>E11.9</DG1.3.1> <DG1.3 #Ig 0.06 10^3/uL 0.00-0.10 [facility] ([facility]) FASTING 12 HOUR~.~.~<DG1.3.1>Z00.01</DG1.3.1><DG1.3.1>I10</DG1.3.1><DG1.3.1>E11.9</DG1.3.1> <DG1.3 #NRBC 0.00 10^3/uL 0.00-0.00 [facility] ([facility]) FASTING 12 HOUR~.~.~<DG1.3.1>Z00.01</DG1.3.1><DG1.3.1>I10</DG1.3.1><DG1.3.1>E11.9</DG1.3.1> <DG1.3 RBC Morph Laboratory test result [facility] ([facility]) FASTING 12 HOUR~.~.~<DG1.3.1>Z00.01</DG1.3.1><DG1.3.1>I10</DG1.3.1><DG1.3.1>E11.9</DG1.3.1> <DG1.3 Manual Diff Laboratory test result [facility] ([facility]) FASTING 12 HOUR~.~.~<DG1.3.1>Z00.01</DG1.3.1><DG1.3.1>I10</DG1.3.1><DG1.3.1>E11.9</DG1.3.1> <DG1.3 ID Date Data Source [id number] 10/21/2020 09:06:00 AM [facility] Value Range Interpretation Code Description Data Debi rce(s) Supporting Document(s) Iron [Mass/volume] in Serum or Plasma 70 UG/DL 42 - 135 [facility] Iron binding capacity.unsaturated [Mass/volume] in Serum or Plasma 224 UG/DL 112 - 347 [facility] Iron binding capacity [Mass/volume] in Serum or Plasma 294 ug/dL 250 - 450 [facility] Iron saturation [Mass Fraction] in Serum or Plasma 24 % [facility] ID Date Data Source [id number] 10/17/2020 02:46:00 PM [facility] Value Range Interpretation Code Description Data Debi rce(s) Supporting Document(s) Thyroxine (T4) free index in Serum or Plasma by calculation 1.28 NG/DL 0.93 - 1.70 [facility] ID Date Data Source [id number] 10/17/2020 02:46:00 PM [facility] Value Range Interpretation Code Description Data Debi rce(s) Supporting Document(s) Thyrotropin [Units/volume] in Serum or Plasma by Detec tion limit <= 0.05 mIU/L 3.37 uIU/mL 0.47 - 5.01 [facility] ID Date Data Source [id number] 10/17/2020 02:46:00 PM EST [facility] Name Value Range Interpretation Code Description Data Debi rce(s) Supporting Document(s) Calcidiol [Moles/volume] in Serum or Plasma 27 NG/ML [facility] VITAMIN-D(2 5HYDROXY) Deficiency: <=20 ng/ml Insufficiency: 21-29 ng/ml Preferred level: => 30 ng/ml ID Date Data Source [id number] 10/17/2020 02:26:00 PM [facility] Name Value Range Interpretation Code Description Data Debi rce(s) Supporting Document(s) Hemoglobin A1c/Hemoglobin.total in Blood 5.8 % 4.4 - 6.1 [facility] {A1]{HB] ID Date Data Source [id number] 10/17/2020 02:18:00 PM [facility] Name Value Range Interpretation Code Description Data Debi rce(s) Supporting Document(s) [facility] Cholesterol [Mass/volume] in Serum or Plasma 115 MG/DL 131 - 200 L [facility] Deprecated Triglyceride [Mass/volume] in Serum or Plasma 183 MG/DL 3 5 - 160 H [facility] HDL 30 MG/DL 29 - 86 [facility] Cholesterol in LDL [Mass/volume] in Serum or Plasma by Direc t assay 59 mg/dL 65 - 175 L [facility] Cholesterol.total/Cholesterol in HDL [Mass Ratio] in Serum o r Plasma 3.8 3.2 - 4.4 [facility] LDL/HDL 1.97 1.47 - 3.22 [facility] CVE RISK CHOL/HDL LDL/HDLMEN: 1/2 AVERAGE 3.43 1.00 AVERAGE 4.97 3.55 2X AVERAGE 9.55 6.25 3X AVERAGE 23.99 7.99WOMEN: 1/2 AVERAGE 3.27 1.47 AVERAGE 4.44 3.22 2X AVERAGE 7.05 5.03 3X AVERAGE 11.04 6.14 ID Date Data Source [id number] 10/17/2020 02:18:00 PM EST [facility] Name Value Range Interpretation Code Description Data Debi rce(s) Supporting Document(s) COMPREHENSIVE METABOLIC PANEL [facility] COMPREHENSIVE METABOLIC PANEL Sodium [Moles/volume] in Serum or Plasma 142 mEq/L 134 - 153 [facility] Potassium [Moles/volume] in Serum or Plasma 4.1 mEq/L 3.6 - 5.0 [facility] Chloride [Moles/volume] in Serum or Plasma 103 mEq/L 98 - 107 [facility] Carbon dioxide, total [Moles/volume] in Serum or Plasma 26 MEQ/L 22 - 30 [facility] Glucose [Mass/volume] in Serum or Plasma 70 MG/DL 65 - 110 [facility] BUN 22 MG/DL 7 - 21 H [facility] Creatinine [Mass/volume] in Serum or Plasma 1.2 MG/DL 0.7 - 1.5 [facility] BUN/CREAT 18 8 - 27 [facility] Protein [Mass/volume] in Serum or Plasma 6.5 G/DL 6.3 - 8.2 [facility] Albumin [Mass/volume] in Serum or Plasma 4.3 G/DL 3.9 - 5.0 [facility] Globulin [Mass/volume] in Serum by calculation 2.2 GM/DL 2.4 - 3.2 L [facility] A/G RATIO 2.0 0.8 - 2.0 [facility] Calcium [Mass/volume] in Serum or Plasma 9.7 MG/DL 8.4 - 10.2 [facility] Bilirubin.total [Mass/volume] in Serum or Plasma <0.7 MG/DL 0.2 - 1.3 [facility] Alkaline phosphatase [Enzymatic activity/volume] in Serum or Plasma 139 U/L 38 - 126 H [facility] Aspartate aminotransferase [Enzymatic activity/volume] in Serum or Plasma 20 U/L 5 - 40 [facility] Alanine aminotransferase [Enzymatic activity/volume] in Seru m or Plasma 25 U/L 7 - 56 [facility] Anion gap 3 in Serum or Plasma 13.0 mmol/L 8.0 - 16.0 [facility] AGE 70 yrs [facility] NON-AA GFR 47 mL/min [facility] AFR AMER GFR >60 [facility] Male GFR In terprentation 20-49 yrs >60 mL/min Normal 50-59 yrs >56 mL/min Normal 60-69 yrs >49 mL/min Normal 70-79yrs >42 mL/min Normal 80 and above >35 mL/min Normal Female GFR Interpretation 20-39 yrs >60 mL/min Normal 40-49 yrs >58 mL/min Normal 50-59 yrs >51 mL/min Normal 60-69 yrs >45 mL/min Normal 70-79 yrs >39 mL/min Normal 80 and above >32 mL/min Normal ID Date Data Source [id number] 10/17/2020 01:55:00 PM EST [facility] Name Value Range Interpretation Code Description Data Debi rce(s) Supporting Document(s) [facility] S[facility] R [facility] al COLOR yellow NORMAL: Yellow [facility] ospital CLARITY clear NORMAL: Clear [facility] spital Specific gravity of Urine by Test strip 1.015 1.001 - 1.030 [facility] pH 5 5 - 9 [facility] al Glucose [Mass/volume] in Urine by Test strip NORM NORMAL: Negat [facility] Bilirubin.total [Presence] in Urine by Test strip NEG NORMAL: Negative [facility] Ketones [Presence] in Urine by Test strip NEG NORMAL: Negative [facility] Protein [Mass/volume] in Urine by Test strip NEG NORMAL: [facility] Nitrite [Presence] in Urine by Test strip NEG NORMAL: Negative [facility] BLOOD NEG NORMAL: Negative [facility] Leukocyte esterase [Presence] in Urine by Test strip NEG RAMOS L: Negative [facility] Urobilinogen [Mass/volume] in Urine by Test strip NOR less [place] n 1.0 mg/dL [facility] MICROSCOPIC Not Indicate [facility]spital ID Date Data Source [id number] 10/17/2020 01:49:00 PM EST [facility] Name Value Range Interpretation Code Description Data Debi rce(s) Supporting Document(s) CBC W/AUTOMATED DIFF [facility] COMPLETE BLOOD COUNT Leukocytes [#/volume] in Blood by Automated count 12.6 10^3/uL 4.2 - 11.0 H [facility] Erythrocytes [#/volume] in Blood by Automated count 4.75 10^6/uL 4. 20 - 5.40 [facility] Hemoglobin [Mass/volume] in Blood 12.6 g/dL 12.0 - 16.0 [facility] Hematocrit [Volume Fraction] of Blood by Automated count 40.5 % 3 7.0 - 47.0 [facility] Erythrocyte mean corpuscular volume [Entitic volume] by Auto mated count 85.3 fL 81.0 - 101 [facility] Erythrocyte mean corpuscular hemoglobin [Entitic mass] by Automated count 26.5 pg 27.0 - 34.0 L [facility] Erythrocyte mean corpuscular hemoglobin concentration [Mass/volume] by Automated count 31.1 g/dL 31.0 - 36.0 [facility] Erythrocyte distribution width [Ratio] by Automated count 17.6 % 11.5 - 14.5 H [facility] Platelets [#/volume] in Blood by Automated count 326 10^3/uL 150 - 45 0 [facility] Platelet mean volume [Entitic volume] in Blood by Automated count 10.2 fL 7.4 - 10.4 [facility] Neutrophils/100 leukocytes in Blood by Automated count 79.8 % 37. 0 - 80.0 [facility] Lymphocytes/100 leukocytes in Blood by Manual count 10.5 % 25.0 - 40.0 L [facility] Monocytes/100 leukocytes in Blood by Automated count 6.3 % 3.0 - 8.0 [facility] Eosinophils/100 leukocytes in Blood by Automated count 2.2 % 0.0 - 7.0 [facility] Basophils/100 leukocytes in Blood by Automated count 0.7 % 0.0 - 2.5 [facility] %IG 0.5 % 0.0 - 0.0 [facility] %[facility] 0.0 % 0.0 - 0.0 [facility] al Neutrophils [#/volume] in Blood by Automated count 10.06 10^3/uL 2. 00 - 6.90 H [facility] Lymphocytes [#/volume] in Blood by Automated count 1.33 10^3/uL 0.60 - 3.40 [facility] Monocytes [#/volume] in Blood by Automated count 0.80 10^3/uL 0.00 - 0.90 [facility] Eosinophils [#/volume] in Blood by Automated count 0.28 10^3/uL 0.00 - 0.70 [facility] Basophils [#/volume] in Blood by Automated count 0.09 10^3/uL 0.00 - 0.20 [facility] #IG 0.06 10^3/uL 0.00 - 0.10 [facility] #NRBC 0.00 10^3/uL 0.00 - 0.00 [facility] MANUAL DIFF NOT INDICATED [facility] RBC MORPH NOT INDICATED [facility] spital ID Date Data Source [id number] 09/16/2020 08:49:00 AM EST [facility] ([facility]) Name Value Range Interpretation Code Description Data Debi rce(s) Supporting Document(s) Appearance, Urine Laboratory test result Normal (applies to non-numeric results) [facility] ([facility]) Color, Urine Laboratory test result Normal (applies to non -numeric results) [facility] ([facility]) Specific [place] Urine Auto 1.015 1.002-1.035 Norm al (applies to non-numeric results) [facility] ([facility]) Protein, Urine Auto Laboratory test result Ramos l (applies to non-numeric results) [facility] ([facility]) PH,Urine 5.0 units 5.0-9.0 Normal (applies to non-numeric resul ts) [facility] ([facility]) Ketone, Urine Auto Laboratory test result Normal (applies to non-numeric results) [facility] ([facility]) Urobilinogen, Urine Auto 0.2 mg/dL 0.0-2.0 Normal (applies to non-numeric results) [facility] ([facility]) Glucose, Urine (Ua) Auto Laboratory test result Normal (applies to non-numeric results) [facility] ([facility]) Nitrite, Urine Auto Laboratory test result Ramos l (applies to non-numeric results) [facility] ([facility]) Bilirubin, Urine Auto Laboratory test result Nor mal (applies to non-numeric results) [facility] ([facility]) Leukocyte Esterase, Urine Auto Laboratory test result Abov e high normal [facility] ([facility]) WBC, Urine Auto 2 /HPF 0-3 Normal (applies to non-numeric results) [facility] ([facility]) RBC, Urine Auto 0 /HPF 0-3 Normal (applies to non-numeric results) [facility] ([facility]) Blood, Urine Blood Laboratory test result Normal (applies to non-numeric results) [facility] ([facility]) Squamous Epithelial Cell Ur AU 0 /HPF 0-6 N ormal (applies to non-numeric results) [facility] ([facility]) Hyaline Cast, Urine Auto 0 /LPF 0-1 Normal (applies to non -numeric results) [facility] ([facility]) Bacteria, Urine Auto Laboratory test result Norm al (applies to non-numeric results) [facility] ([facility]) ID Date Data Source [id number] 09/16/2020 08:43:00 AM EST [facility] ([facility]) Name Value Range Interpretation Code Description Data Debi rce(s) Supporting Document(s) White Blood Count 10.4 10 4.0-10.0 Above high normal [facility] ([facility]) Red Blood Count 5.11 10 4.00-5.40 Normal (applies to non-numeric results) [facility] ([facility]) Hemoglobin 13.3 g/dL 12.0-15.5 Normal (applies to non-numeric resul ts) [facility] ([facility]) Mean Corpuscular Volume 83.0 fl 80.0-96.0 Normal ( applies to non-numeric results) [facility]) Mean Corpuscular Hemoglobin 26.0 pg 27.0-33.0 Below low normal [facility] ([facility]) Hematocrit 42.4 % 36.0-47.0 Normal (applies to non-numeric resul ts) [facility] ([facility]) Platelet Count, Automated 276 10 150-450 Normal (applies to non-numeric results) [facility]) Mean Corpuscular HGB Conc 31.4 g/dL 32.0-36.5 Below low normal [facility] ([facility]) Red Cell Distribution Width 14.1 % 11.5-14.5 Norm al (applies to non-numeric results) [facility] ([facility]) Lymph % 13.9 % 24.0-44.0 Below low normal [facility] ( [facility]) Trigg % 6.1 % 0.0-5.0 Above high normal [facility] ([facility]) Neutrophils % 74.9 % 36.0-66.0 Above high normal [facility] ([facility]) Immature Granulocyte % 0.3 % 0-3.0 Normal (applies to non-n umeric results) [facility] ([facility]) Baso % 0.6 % 0.0-1.0 Normal (applies to non-numeric resul ts) [facility] ([facility]) Eos % 4.2 % 0.0-3.0 Above high normal [facility] ([facility]) Nucleated Red Blood Cell % 0.0 % 0-0 Normal (applies to n on-numeric results) [facility] ([facility]) Lymph # 1.4 10 1.5-5.0 Below low normal [facility] ( [facility]) Neutrophils # 7.8 10 1.5-8.5 Normal (applies to non-numeric re sults) [facility] ([facility]) Baso # 0.1 10 0.0-0.2 Normal (applies to non-numeric resul ts) [facility] ([facility]) Eos # 0.4 10 0.0-0.5 Normal (applies to non-numeric resul ts) [facility] ([facility]) Trigg # 0.6 10 0.0-0.8 Normal (applies to non-numeric resul ts) [facility] ([facility]) ID Date Data Source [id number] 09/16/2020 08:43:00 AM EST [facility] ([facility]) Name Value Range Interpretation Code Description Data Debi rce(s) Supporting Document(s) Hemoglobin A1c 5.7 % Normal (applies to non-numeric r esults) [facility] ([facility]) <content>REFERENCE RANGES:</content><br/ ><content></content>
<content><=5.6% NORMAL</content>
<content>5.7-6.4% SUGGESTS IMPAIRED GLUCOSE METABOLISM/PREDIABETIC</content>
<content>>= 6.5% ABNORMAL</content>
<content></content> Estimated Average Glucose 117 mg/dL 60-110 Above high normal [facility] ([facility]) ID Date Data Source [id number] 09/16/2020 08:43:00 AM EST [facility] ([facility]) Name Value Range Interpretation Code Description Data Debi rce(s) Supporting Document(s) Triglycerides Level 212 mg/dL Above high normal [facility] ([facility]) Cholesterol Level 140 mg/dL Normal (applies to non-numeri c results) [facility] ([facility]) HDL Cholesterol 40 mg/dL Normal (applies to non-numeric results) [facility] ([facility]) Non-HDL-C 100 mg/dL Normal (applies to non-numeric resul ts) [facility] ([facility]) LDL Cholesterol 58 mg/dL Normal (applies to non-numeric results) [facility] ([facility]) Cholesterol Risk Ratio 3.500 Normal (applies to non-n umeric results) [facility] ([facility]) ID Date Data Source [id number] 09/16/2020 08:43:00 AM EST [facility] ([facility]) Name Value Range Interpretation Code Description Data Debi rce(s) Supporting Document(s) Calcidiol [Mass/volume] in Serum or Plasma 13.6 ng/mL 30.0- 100.0 Below low normal [facility] ([facility]) ID Date Data Source [id number] 09/16/2020 08:43:00 AM EST [facility] ([facility]) Name Value Range Interpretation Code Description Data Debi rce(s) Supporting Document(s) Thyrotropin [Units/volume] in Serum or Plasma Laboratory test result [facility] ([facility]) Thyroxine (T4) free [Mass/volume] in Serum or Plasma Laboratory tash t result [facility] ([facility]) ID Date Data Source [id number] 09/16/2020 08:43:00 AM EST [facility] ([facility]) Name Value Range Interpretation Code Description Data Debi rce(s) Supporting Document(s) Glucose, Fasting 101 mg/dL 70-100 Above high normal [facility] ([facility]) Blood Urea Nitrogen 15 mg/dL 7-18 Normal (applies to non-nume reece results) [facility] ([facility]) Sodium Level 141 meq/L 136-145 Normal (applies to non-numeric res ults) [facility] ([facility]) Creatinine For GFR 1.06 mg/dL 0.55-1.30 Normal (applies to non -numeric results) [facility] ([facility]) Glomerular Filtration Rate 54.6 Normal (applies to n on-numeric results) [facility] ([facility]) <content>Units are mL/min/1.73 m2</content>
<content></content>
<content>Chronic Kidney Disease Staging per NKF:</content>
<content></content>
<content>Stage I & II GFR >=60 Normal to Mildly Decreased</content>
<content>Stage III GFR 30- 59 Moderately Decreased</content>
<content>Stage IV GFR 15-29 Severely Decreased</content>
<content>Stage V GFR <15 Very Little GFR Left</content>
<content>ESRD GFR <15 on PHOTONICS ENGINEERING TECHNICIAN</content>
<content></content> Chloride Level 109 meq/L 98-107 Above high normal [facility] ([facility]) Potassium Serum 3.9 meq/L 3.5-5.1 Normal (applies to non-numeric results) [facility] ([facility]) Carbon Dioxide Level 24 meq/L 21-32 Normal (applies to non-num tacho results) [facility] ([facility]) Calcium Level 9.5 mg/dL 8.8-10.2 Normal (applies to non-numeric re sults) [facility] ([facility]) Anion Gap 8 meq/L 8-16 Normal (applies to non-numeric resul ts) [facility] ([facility]) Ast/Sgot 10 U/L 7-37 Normal (applies to non-numeric resul ts) [facility] ([facility]) Alt/SGPT 16 U/L 12-78 Normal (applies to non-numeric resul ts) [facility] ([facility]) Alkaline Phosphatase 98 U/L 45-117 Normal (applies to non-num tacho results) [facility] ([facility]) Total Protein 7.3 GM/DL 6.4-8.2 Normal (applies to non-numeric re sults) [facility] ([facility]) Bilirubin,Total 0.7 mg/dL 0.2-1.0 Normal (applies to non-numeric results) [facility] ([facility]) Albumin 3.7 GM/DL 3.2-5.2 Normal (applies to non-numeric resul ts) [facility] ([facility]) Albumin/Globulin Ratio 1.0 1.2-2.2 Below low [facility] ID Date Data Source [id number] 09/16/2020 08:43:00 AM EST [facility] ([facility]) Name Value Range Interpretation Code Description Data Debi rce(s) Supporting Document(s) Thyroid Stimulating Hormone 2.180 uIU/ML 0.358-3.740 Norm al (applies to non- numeric results) [facility] ([facility]) Free T4 1.11 ng/dL 0.76-1.46 Normal (applies to non-numeric resul ts) [facility] ([facility]) ID Date Data Source [id number] 07/31/2020 10:01:00 AM EDT [facility] ([facility]) Name Value Range Interpretation Code Description Data Debi rce(s) Supporting Document(s) Red Blood Count 4.10 4.00-5.40 [facility] ([facility]) White Blood Count 6.8 4.0-10.0 [facility] ([facility]) Platelets 240 150-450 [facility] ([facility]) Hemoglobin 11.1 [facility] ([facility]) Hematocrit 33.7 [facility] ([facility]) ID Date Data Source [id number] 04/23/2020 02:44:00 PM EDT [facility] ([facility]) Name Value Range Interpretation Code Description Data Debi rce(s) Supporting Document(s) White Blood Count 10.6 5.0-10.0 [facility] ([facility]) Platelets 365 172-450 [facility] ([facility] Red Blood Count 4.79 4.00-5.40 [facility] ([facility]) Hemoglobin 12.5 [facility] ([facility]) Hematocrit 39.5 [facility] ([facility]) ID Date Data Source [id number] 04/23/2020 02:44:00 PM EDT [facility] ([facility]) Name Value Range Interpretation Code Description Data Debi rce(s) Supporting Document(s) Magnesium Level 2.3 1.8-2.4 [facility] ([facility]) ID Date Data Source [id number] 04/23/2020 02:44:00 PM EDT [facility] ([facility]) Name Value Range Interpretation Code Description Data Debi rce(s) Supporting Document(s) Glucose 71 70-100 [facility] ([facility] Blood Urea Nitrogen 27 7-18 [facility] ([facility]) Sodium 140 136-145 [facility] Creatinine 1.07 0.6-1.0 [facility] ([facility]) Potassium 4.0 3.5-5.1 [facility] Chloride 108 98-107 [facility] Calcium 9.0 8.2-9.6 [facility] ([facility] Carbon Dioxide 25 21-32 [facility] ([facility]) Glomerular filtration rate/1.73 sq M.pre dicted [Volume Rate/Area] in Serum or Plasma by Creatinine-based formula (MDRD) 54.0 [facility] ([facility]) ID Date Data Source [id number] 04/18/2020 02:49:00 PM EDT [facility] ([facility]) Name Value Range Interpretation Code Description Data Debi rce(s) Supporting Document(s) Natriuretic peptide.B prohormone N-Terminal [Mass/volu me] in Serum or Plasma 222 [facility] ([employer] [facility]) Troponin Laboratory test result [facility] ([facility]) ID Date Data Source [id number] 04/18/2020 02:49:00 PM EDT [facility] ([facility]) Name Value Range Interpretation Code Description Data Debi rce(s) Supporting Document(s) Creatine kinase [Enzymatic activity/volume] in Serum or Plasma 119 [facility] ([facility]) CPK-MB 3.0 [facility] ([facility]) ID Date Data Source [id number] 04/17/2020 03:01:00 PM EDT [facility] ([facility]) Name Value Range Interpretation Code Description Data Debi rce(s) Supporting Document(s) Thyroid Stimulating Hormone 6.590 [facility] ([facility]) ID Date Data Source NASAL AND SINUS CULTURE 12/03/2019 12:00:00 AM EST eCW1 ([facility]) Name Value Range Interpretation Code Description Data Debi rce(s) Supporting Document(s) FULL REPORT IN LAB NOTES (eCW and [facility]). NASAL AND SINUS CULTURE eCW1 ([facility]) ID Date Data Source [id number] 11/22/2019 05:23:00 PM EST [facility] ([facility], ) Name Value Range Interpretation Code Description Data Debi rce(s) Supporting Document(s) Rheumatoid factor [Units/volume] in Serum or Plasma Laboratory t est result Normal (applies to non-numeric results) [facility] ([facility], ) will discuss at follow-up Cyclic citrullinated peptide IgG Ab [Units/volume] in Serum or Plasma 10 units 0-19 Normal (applies to non-numeric results) [facility] ([facility], ) will discuss at follow-up ID Date Data Source [id number] 11/22/2019 05:23:00 PM EST [facility] ([facility], ) Name Value Range Interpretation Code Description Data Debi rce(s) Supporting Document(s) Aureobasidium Pullulans Laboratory test result N ormal (applies to non-numeric results) [facility] ([facility], ) will discuss at follow-up Aspergillus Fumigatus AB Laboratory test result Normal (applies to non-numeric results) [facility] ([facility], ) will discuss at follow-up Micropolyspora Faeni AB Laboratory test result N ormal (applies to non-numeric results) [facility] ([facility], ) will discuss at follow-up Concord Serum AB Laboratory test result Normal (a pplies to non-numeric results) [facility] ([facility]) will discuss at follow-up Thermoactinomyces Sacchari Laboratory test result Normal (applies to non- numeric results) [facility] ([facility]) will discuss at follow-up Thermoactinomyces Vulgaris Laboratory test result Normal (applies to non- numeric results) [facility] ([facility]) will discuss at follow-up ID Date Data Source [id number] 11/22/2019 05:23:00 PM EST [facility] ([facility]) Name Value Range Interpretation Code Description Data Debi rce(s) Supporting Document(s) Glucose, Fasting 114 mg/dL 70-100 Above high normal [facility], ) will discuss at follow-up Glomerular Filtration Rate 48.8 Normal (applies to n on-numeric results) [facility] ([facility], ) will discuss at follow-up Blood Urea Nitrogen 17 mg/dL 7-18 Normal (applies to non-nume reece results) [facility] ([facility]) will discuss at follow-up Creatinine For GFR 1.17 mg/dL 0.55-1.30 Normal (applies to non -numeric results) [facility] ([facility]) will discuss at follow-up Sodium Level 142 meq/L 136-145 Normal (applies to non-numeric res ults) [facility] ([facility]) will discuss at follow-up Potassium Serum 4.1 meq/L 3.5-5.1 Normal (applies to non-numeric results) [facility] ([facility]) will discuss at follow-up Carbon Dioxide Level 29 meq/L 21-32 Normal (applies to non-num tacho results) [facility] ([facility]) will discuss at follow-up Chloride Level 106 meq/L 98-107 Normal (applies to non-numeric r esults) [facility], ) will discuss at follow-up Anion Gap 7 meq/L 8-16 Below low normal [facility] ( [facility], ) will discuss at follow-up Calcium Level 9.0 mg/dL 8.8-10.2 Normal (applies to non-numeric re sults) [facility] ([facility], ) will discuss at follow-up Procedure Social History Code Duration Value Status Description Data Source(s ) Smoking 10/16/2020 12:00:00 AM EST - 10/31/2013 12:00:00 AM EST Patient is a former smoker completed Patient is a former smoker [facility] ([facility], ) Smoking 08/27/2020 12:00:00 AM EDT Former Smoker completed Former Smoker eCW1 ([facility]) Smoking 08/27/2020 12:00:00 AM EDT Former Smoker completed Former Smoker eCW1 ([facility]) Smoking 08/27/2020 12:00:00 AM EDT Former Smoker completed Former Smoker eCW1 ([facility]) Smoking 08/27/2020 12:00:00 AM EDT Former Smoker completed Former Smoker eCW1 ([facility]) Smoking 08/27/2020 12:00:00 AM EDT Former Smoker completed Former Smoker eCW1 ([facility]) Smoking 08/27/2020 12:00:00 AM EDT Former Smoker completed Former Smoker eCW1 ([facility]) Smoking 08/27/2020 12:00:00 AM EDT Former Smoker completed Former Smoker eCW1 ([facility]) Smoking 08/27/2020 12:00:00 AM EDT Former Smoker completed Former Smoker eCW1 ([facility]) Smoking 08/27/2020 12:00:00 AM EDT Former Smoker completed Former Smoker eCW1 ([facility]) Smoking 08/27/2020 12:00:00 AM EDT Former Smoker completed Former Smoker eCW1 ([facility]) Smoking 08/27/2020 12:00:00 AM EDT Former Smoker completed Former Smoker eCW1 ([facility]) Smoking 08/27/2020 12:00:00 AM EDT Former Smoker completed Former Smoker eCW1 ([facility]) Smoking 08/22/2020 12:00:00 AM EDT Patient is a former smoker completed Patient is a former smoker [facility] ([facility]) Smoking 08/07/2020 12:00:00 AM EDT Former Smoker completed Former Smoker eCW1 ([facility]) Smoking 08/07/2020 12:00:00 AM EDT Former Smoker completed Former Smoker eCW1 ([facility]) Smoking 08/07/2020 12:00:00 AM EDT Former Smoker completed Former Smoker eCW1 ([facility]) Smoking 05/05/2020 12:00:00 AM EDT Former Smoker completed Former Smoker eCW1 ([facility]) Smoking 05/05/2020 12:00:00 AM EDT Former Smoker completed Former Smoker eCW1 ([facility]) Smoking 04/10/2020 12:00:00 AM EDT Former Smoker completed Former Smoker eCW1 ([facility]) Smoking 04/10/2020 12:00:00 AM EDT Former Smoker completed Former Smoker eCW1 ([facility]) Smoking 04/10/2020 12:00:00 AM EDT Former Smoker completed Former Smoker eCW1 ([facility]) Smoking 04/10/2020 12:00:00 AM EDT Former Smoker completed Former Smoker eCW1 ([facility]) Vital Signs ID Date Data Source UNK Name Value Range Interpretation Code Description Data Source(s) Body weight 74.844 kg 74.844 kg [facility] ([facility]) [place] body weight 110 [lb_av] 110 [lb_av] [facility] ([facility]) Body mass index (BMI) [Ratio] 30.2 kg/m2 30.2 k g/m2 [facility] ([facility]) Body weight 165.00 [lb_av] 165.00 [lb_av] [facility] ([facility]) verbla per the pt Body height 62 [in_i] 62 [in_i] [facility] ([facility]) 5'2" Body temperature 95.9 [degF] 95.9 [degF] [facility] ([facility], ) Oxygen saturation in Arterial blood by Pulse oximetry 916 % 916 % [facility] ([facility]) Heart rate 83 /min 83 /min [facility] ([facility]) Diastolic blood pressure 70 mm[Hg] 70 mm[Hg] [facility] ([facility]) Systolic blood pressure 122 mm[Hg] 122 mm[Hg] [facility] ([facility]) Body surface area Derived from formula 1.76 m2 1.76 m2 [facility] ([facility]) Body surface area Derived from formula 1.70 m2 1.70 m2 [facility] ([facility]) Body mass index (BMI) [Ratio] 31.5 kg/m2 31.5 k g/m2 [facility] ([facility]) Body height 60 [in_i] 60 [in_i] [facility] ([facility]) 5'0" Body weight 73.200 kg 73.200 kg [facility] ([facility]) Body weight 161.38 [lb_av] 161.38 [lb_av] [facility] ([facility]) Oxygen saturation in Arterial blood by Pulse oximetry 98 % 98 % [facility] ([facility]) oxygen set 5L Respiratory rate 16 /min 16 /min [facility] ( [facility]) Body temperature 98.5 [degF] 98.5 [degF] [facility] ([facility]) Heart rate 75 /min 75 /min [facility] ([facility]) Diastolic blood pressure 80 mm[Hg] 80 mm[Hg] [facility] ([facility]) Systolic blood pressure 120 mm[Hg] 120 mm[Hg] [facility] ([facility]) Body surface area Derived from formula 1.70 m2 1.70 m2 [facility] ([facility]) Body mass index (BMI) [Ratio] 31.5 kg/m2 31.5 k g/m2 [facility] ([facility]) Body height 60 [in_i] 60 [in_i] [facility] ([facility]) 5'0" Body weight 73.256 kg 73.256 kg [facility] ([facility]) Body weight 161.50 [lb_av] 161.50 [lb_av] [facility] T ([facility]) Oxygen saturation in Arterial blood by Pulse oximetry 98 % 98 % [facility] ([facility]) O2 set at 4L Respiratory rate 16 /min 16 /min [facility] ( [facility]) Body temperature 96.0 [degF] 96.0 [degF] [facility] ([facility]) Heart rate 58 /min 58 /min [facility] ([facility]) Diastolic blood pressure 82 mm[Hg] 82 mm[Hg] [facility] ([facility]) Systolic blood pressure 124 mm[Hg] 124 mm[Hg] [facility] Body surface area Derived from formula 1.75 m2 1.75 m2 [facility] ([facility], ) Body weight 73.256 kg 73.256 kg [facility] ([facility], ) [place] body weight 110 [lb_av] 110 [lb_av] [facility] Body mass index (BMI) [Ratio] 29.5 kg/m2 29.5 k g/m2 [facility] ([facility], ) Body weight 161.50 [lb_av] 161.50 [lb_av] [facility] Body height 62 [in_i] 62 [in_i] [facility] ([facility], ) 5'2" Body temperature 97.1 [degF] 97.1 [degF] [facility] ([facility], ) Oxygen saturation in Arterial blood by Pulse oximetry 974 % 974 % [facility] ([facility], ) Heart rate 66 /min 66 /min [facility] ([facility], ) Diastolic blood pressure 70 mm[Hg] 70 mm[Hg] [facility] ([facility], ) Systolic blood pressure 118 mm[Hg] 118 mm[Hg] [facility] Diastolic blood pressure 66 mm[Hg] 66 mm[Hg] eCW1 ([facility]) Systolic blood pressure 138 mm[Hg] 138 mm[Hg] e CW1 ([facility]) Body temperature 96.6 [degF] 96.6 [degF] eCW1 ( [facility]) Respiratory rate 20 /min 20 /min eCW1 ([facility]) Heart rate 87 /min 87 /min eCW1 ([facility]) Body mass index (BMI) [Ratio] 29.88 kg/m2 29.88 kg/m2 eCW1 ([facility]) Body height 62 [in_i] 62 [in_i] eCW1 ([facility]) Body weight 163.4 [lb_av] 163.4 [lb_av] eCW1 ([facility]) Diastolic blood pressure--sitting 40 mm[Hg] 40 mm[Hg] [facility] ([facility]) large cuff, Ra Systolic blood pressure--sitting 82 mm[Hg] 82 mm[Hg] [facility] ([facility]) large cuff, Ra Heart rate 63 /min 63 /min [facility] ([facility]) Body mass index (BMI) [Ratio] 29.4 kg/m2 29.4 k g/m2 [facility] ([facility]) Body height 62 [in_i] 62 [in_i] [facility] ([facility]) 5'2" Body weight 161.00 [lb_av] 161.00 [lb_av] [facility] T ([facility]) Diastolic blood pressure--sitting 66 mm[Hg] 66 mm[Hg] [facility] ([facility]) CBP adult cuff, [place] Systolic blood pressure--sitting 106 mm[Hg] 106 mm[Hg] [facility] ([facility]) CBP adult cuff, [place] Heart rate 72 /min 72 /min [facility] ([facility]) Body mass index (BMI) [Ratio] 31.3 kg/m2 31.3 k g/m2 [facility] ([facility]) Body height 62 [in_i] 62 [in_i] [facility] ([facility]) 5'2" Body weight 171.00 [lb_av] 171.00 [lb_av] MEDEN T ([facility]) Diastolic blood pressure 66 mm[Hg] 66 mm[Hg] eCW1 ([facility]) Systolic blood pressure 110 mm[Hg] 110 mm[Hg] e CW1 ([facility]) Body temperature 98.5 [degF] 98.5 [degF] eCW1 ( [facility]) Respiratory rate 20 /min 20 /min eCW1 ([facility]) Heart rate 69 /min 69 /min eCW1 ([facility]) Body mass index (BMI) [Ratio] 31.60 kg/m2 31.60 kg/m2 eCW1 ([facility]) Body height 62 [in_i] 62 [in_i] eCW1 ([facility]) Body weight 172.8 [lb_av] 172.8 [lb_av] eCW1 ([facility]) Diastolic blood pressure 74 mm[Hg] 74 mm[Hg] eCW1 ([facility]) Systolic blood pressure 113 mm[Hg] 113 mm[Hg] e CW1 ([facility]) Body temperature 98.8 [degF] 98.8 [degF] eCW1 ( [facility]) Respiratory rate 20 /min 20 /min eCW1 ([facility]) Heart rate 79 /min 79 /min eCW1 ([facility]) Body mass index (BMI) [Ratio] 31.97 kg/m2 31.97 kg/m2 eCW1 ([facility]) Body height 62 [in_us] 62 [in_us] eCW1 ([facility]) Body weight Measured 174.8 [lb_av] 174.8 [lb_av ] eCW1 ([facility]) Diastolic blood pressure 62 mm[Hg] 62 mm[Hg] eCW1 ([facility]) Systolic blood pressure 114 mm[Hg] 114 mm[Hg] e CW1 ([facility]) Body temperature 99.2 [degF] 99.2 [degF] eCW1 ( [facility]) Respiratory rate 20 /min 20 /min eCW1 ([facility]) Heart rate 89 /min 89 /min eCW1 ([facility]) Body mass index (BMI) [Ratio] 32.15 kg/m2 32.15 kg/m2 eCW1 ([facility]) Body height 62 [in_i] 62 [in_i] eCW1 ([facility]) Body weight 175.8 [lb_av] 175.8 [lb_av] eCW1 ([facility]) Body weight 79.380 kg 79.380 kg MEDENT ([facility], ) [place] body weight 110 [lb_av] 110 [lb_av] MEDEN T ([facility]) Body mass index (BMI) [Ratio] 32.0 kg/m2 32.0 k g/m2 [facility] ([facility]) Body weight 175.00 [lb_av] 175.00 [lb_av] [facility] Body height 62 [in_i] 62 [in_i] [facility] 5'2" Body temperature 98.8 [degF] 98.8 [degF] [facility] ([facility]) Oxygen saturation in Arterial blood by Pulse oximetry 91 % 91 % [facility] ([facility]) o2 sat on 4l Heart rate 73 /min 73 /min [facility] ([facility]) Diastolic blood pressure 68 mm[Hg] 68 mm[Hg] [facility] ([facility]) Systolic blood pressure 102 mm[Hg] 102 mm[Hg] M EDENT ([facility]) Diastolic blood pressure 56 mm[Hg] 56 mm[Hg] eCW1 ([facility]) Systolic blood pressure 114 mm[Hg] 114 mm[Hg] e CW1 ([facility]) Body temperature 97.2 [degF] 97.2 [degF] eCW1 ( [facility]) Respiratory rate 20 /min 20 /min eCW1 ([facility]) Heart rate 96 /min 96 /min eCW1 ([facility]) Body mass index (BMI) [Ratio] 32.15 kg/m2 32.15 kg/m2 eCW1 ([facility]) Body height 62 [in_us] 62 [in_us] eCW1 ([facility]) Body weight Measured 175.8 [lb_av] 175.8 [lb_av ] W1 ([facility]) Body weight 80.968 kg 80.968 kg [facility] ([facility]) Body mass index (BMI) [Ratio] 32.6 kg/m2 32.6 k g/m2 [facility]) Body weight 178.50 [lb_av] 178.50 [lb_av] MEDEN T ([facility]) Body height 62 [in_i] 62 [in_i] [facility] ([facility]) 5'2" Oxygen saturation in Arterial blood by Pulse oximetry 86 % 86 % [facility] ([facility]) o2 sat on 3L pulsed, 96% 02 sat on 4L co ntinuous Heart rate 69 /min 69 /min [facility] ([facility]) Diastolic blood pressure 63 mm[Hg] 63 mm[Hg] [facility] ([facility]) Systolic blood pressure 124 mm[Hg] 124 mm[Hg] [facility] Diastolic blood pressure 62 mm[Hg] 62 mm[Hg] eCW1 ([facility]) Systolic blood pressure 110 mm[Hg] 110 mm[Hg] e CW1 ([facility]) Body temperature 98.4 [degF] 98.4 [degF] eCW1 ( [facility]) Respiratory rate 20 /min 20 /min eCW1 ([facility]) Heart rate 81 /min 81 /min eCW1 ([facility]) Body mass index (BMI) [Ratio] 32.81 kg/m2 32.81 kg/m2 W1 ([facility]) Body height 62 [in_us] 62 [in_us] eCW1 ([facility]) Body weight Measured 179.4 [lb_av] 179.4 [lb_av ] W1 ([facility]) Body temperature 97.4 [degF] 97.4 [degF] eCW1 ( [facility]) Respiratory rate 18 /min 18 /min eCW1 ([facility]) Heart rate 74 /min 74 /min eCW1 ([facility]) Body mass index (BMI) [Ratio] 32.88 kg/m2 32.88 kg/m2 eCW1 ([facility]) Body height 62 [in_us] 62 [in_us] eCW1 ([facility]) Body weight Measured 179.8 [lb_av] 179.8 [lb_av ] eCW1 ([facility]) Diastolic blood pressure 78 mm[Hg] 78 mm[Hg] eCW1 ([facility]) Systolic blood pressure 118 mm[Hg] 118 mm[Hg] e CW1 ([facility]) Body temperature 98.0 [degF] 98.0 [degF] eCW1 ( [facility]) Respiratory rate 18 /min 18 /min eCW1 ([facility]) Heart rate 86 /min 86 /min eCW1 ([facility]) Body mass index (BMI) [Ratio] 33.10 kg/m2 33.10 kg/m2 eCW1 ([facility]) Body height 62 [in_us] 62 [in_us] eCW1 ([facility]) Body weight Measured 181.0 [lb_av] 181.0 [lb_av ] eCW1 ([facility]) Body weight 83.916 kg 83.916 kg MEDEARNEST ([facility], ) Body mass index (BMI) [Ratio] 33.8 kg/m2 33.8 k g/m2 MEDENT ([facility], ) Body weight 185.00 [lb_av] 185.00 [lb_av] RICKYEN T ([facility], ) Body height 62 [in_i] 62 [in_i] [facility] 5'2" Oxygen saturation in Arterial blood by Pulse oximetry 91 % 91 % [facility] o2 sat on 3l Heart rate 79 /min 79 /min [facility] ([facility], ) Diastolic blood pressure 78 mm[Hg] 78 mm[Hg] [facility] ([facility], ) Systolic blood pressure 122 mm[Hg] 122 mm[Hg] [facility] Diastolic blood pressure 59 mm[Hg] 59 mm[Hg] eCW1 ([facility]) Systolic blood pressure 124 mm[Hg] 124 mm[Hg] e CW1 ([facility]) Body temperature 98.1 [degF] 98.1 [degF] eCW1 ( [facility]) Respiratory rate 20 /min 20 /min eCW1 ([facility]) Heart rate 84 /min 84 /min eCW1 ([facility]) Body mass index (BMI) [Ratio] 33.43 kg/m2 33.43 kg/m2 eCW1 ([facility]) Body height 62 [in_us] 62 [in_us] eCW1 ([facility]) Body weight Measured 182.8 [lb_av] 182.8 [lb_av ] eCW1 ([facility]) Body weight 83.916 kg 83.916 kg [facility] ([facility], ) Body mass index (BMI) [Ratio] 33.8 kg/m2 33.8 k g/m2 [facility] ([facility], ) Body weight 185.00 [lb_av] 185.00 [lb_av] MEDEN T ([facility], ) Body height 62 [in_i] 62 [in_i] [facility] ([facility], ) 5'2" Oxygen saturation in Arterial blood by Pulse oximetry 91 % 91 % [facility] ([facility], ) o2 sat on 3l pulsed Heart rate 67 /min 67 /min [facility] ([facility], ) Diastolic blood pressure 74 mm[Hg] 74 mm[Hg] [facility], ) Systolic blood pressure 122 mm[Hg] 122 mm[Hg] [facility], ) Diastolic blood pressure 62 mm[Hg] 62 mm[Hg] eCW1 ([facility]) Systolic blood pressure 128 mm[Hg] 128 mm[Hg] e CW1 ([facility]) Body temperature 98.9 [degF] 98.9 [degF] eCW1 ( [facility]) Respiratory rate 20 /min 20 /min eCW1 ([facility]) Heart rate 87 /min 87 /min eCW1 ([facility]) Body mass index (BMI) [Ratio] 33.47 kg/m2 33.47 kg/m2 eCW1 ([facility]) Body height 62 [in_us] 62 [in_us] eCW1 ([facility]) Body weight Measured 183 [lb_av] 183 [lb_av] eC W1 ([facility]) Diastolic blood pressure 63 mm[Hg] 63 mm[Hg] eCW1 ([facility]) Systolic blood pressure 131 mm[Hg] 131 mm[Hg] e CW1 ([facility]) Body temperature 96.5 [degF] 96.5 [degF] eCW1 ( [facility]) Respiratory rate 18 /min 18 /min eCW1 ([facility]) Heart rate 97 /min 97 /min eCW1 ([facility]) Body mass index (BMI) [Ratio] 34.02 kg/m2 34.02 kg/m2 eCW1 ([facility]) Body height 62 [in_us] 62 [in_us] eCW1 ([facility]) Body weight Measured 186 [lb_av] 186 [lb_av] eC W1 ([facility]) Diastolic blood pressure 74 mm[Hg] 74 mm[Hg] eCW1 ([facility]) Systolic blood pressure 116 mm[Hg] 116 mm[Hg] e CW1 ([facility]) Body temperature 98.3 [degF] 98.3 [degF] eCW1 ( [facility]) Respiratory rate 20 /min 20 /min eCW1 ([facility]) Heart rate 87 /min 87 /min eCW1 ([facility]) Body mass index (BMI) [Ratio] 33.07 kg/m2 33.07 kg/m2 eCW1 ([facility]) Body height 62 [in_us] 62 [in_us] eCW1 ([facility]) Body weight Measured 180.8 [lb_av] 180.8 [lb_av ] eCW1 ([facility]) ID Date Data Source [id number] 10/21/2020 10:23:18 AM EST [facility] Name Value Range Interpretation Code Description Data Source(s) WEIGHT RECORDED 161.00 pounds 161.00 pounds [facility] Height 60 Inches 060 Inches [facility] Patient Treatment Plan of Care Planned Activity Planned Date Details Description Data Source (s) Acetaminophen 325 MG / Hydrocodone Bitartrate 5 MG Ora l Tablet 11/10/2020 12:00:00 AM EST eCW1 ([facility]) Acetaminophen 325 MG / Hydrocodone Bitartrate 5 MG Ora l Tablet 10/08/2020 12:00:00 AM EST eCW1 ([facility]) Acetaminophen 325 MG / Hydrocodone Bitartrate 5 MG Ora l Tablet 10/08/2020 12:00:00 AM EST eCW1 ([facility]) [place] 150 MCG 09/01/2020 12:00:00 AM EST eCW1 ([facility]) [place] 150 MCG 09/01/2020 12:00:00 AM EST eCW1 ([facility]) [place] 150 MCG 09/01/2020 12:00:00 AM EST eCW1 ([facility]) [place] 150 MCG 09/01/2020 12:00:00 AM EST eCW1 ([facility]) [place] 150 MCG 09/01/2020 12:00:00 AM EST eCW1 ([facility]) [place] 150 MCG 09/01/2020 12:00:00 AM EST eCW1 ([facility]) [place] 150 MCG 09/01/2020 12:00:00 AM EST eCW1 ([facility]) 168 HR Buprenorphine 0.01 MG/HR Transdermal Patch [BuT rans] 08/27/2020 12:00:00 AM EDT eCW1 ([facility]) 168 HR Buprenorphine 0.01 MG/HR Transdermal Patch [BuT rans] 08/27/2020 12:00:00 AM EDT eCW1 ([facility]) 168 HR Buprenorphine 0.01 MG/HR Transdermal Patch [BuT rans] 08/27/2020 12:00:00 AM EDT eCW1 ([facility]) Acetaminophen 325 MG / Hydrocodone Bitartrate 5 MG Ora l Tablet 08/27/2020 12:00:00 AM EDT eCW1 ([facility]) 168 HR Buprenorphine 0.01 MG/HR Transdermal Patch [BuT rans] 08/27/2020 12:00:00 AM EDT eCW1 ([facility]) Acetaminophen 325 MG / Hydrocodone Bitartrate 5 MG Ora l Tablet 08/27/2020 12:00:00 AM EDT eCW1 ([facility]) Acetaminophen 325 MG / Hydrocodone Bitartrate 5 MG Ora l Tablet 08/27/2020 12:00:00 AM EDT eCW1 ([facility]) 168 HR Buprenorphine 0.01 MG/HR Transdermal Patch [BuT rans] 08/27/2020 12:00:00 AM EDT eCW1 ([facility]) Acetaminophen 325 MG / Hydrocodone Bitartrate 5 MG Ora l Tablet 08/27/2020 12:00:00 AM EDT eCW1 ([facility]) 168 HR Buprenorphine 0.01 MG/HR Transdermal Patch [BuT rans] 08/27/2020 12:00:00 AM EDT eCW1 ([facility]) Acetaminophen 325 MG / Hydrocodone Bitartrate 5 MG Ora l Tablet 08/27/2020 12:00:00 AM EDT eCW1 ([facility]) 168 HR Buprenorphine 0.01 MG/HR Transdermal Patch [BuT rans] 08/27/2020 12:00:00 AM EDT eCW1 ([facility]) Acetaminophen 325 MG / Hydrocodone Bitartrate 5 MG Ora l Tablet 08/27/2020 12:00:00 AM EDT eCW1 ([facility]) 168 HR Buprenorphine 0.01 MG/HR Transdermal Patch [BuT rans] 08/27/2020 12:00:00 AM EDT eCW1 ([facility]) 168 HR Buprenorphine 0.01 MG/HR Transdermal Patch [BuT rans] 08/27/2020 12:00:00 AM EDT eCW1 ([facility]) 168 HR Buprenorphine 0.01 MG/HR Transdermal Patch [BuT rans] 08/27/2020 12:00:00 AM EDT eCW1 ([facility]) Acetaminophen 325 MG / Hydrocodone Bitartrate 5 MG Ora l Tablet 08/27/2020 12:00:00 AM EDT eCW1 ([facility]) 168 HR Buprenorphine 0.01 MG/HR Transdermal Patch [BuT rans] 08/27/2020 12:00:00 AM EDT eCW1 ([facility]) Acetaminophen 325 MG / Hydrocodone Bitartrate 5 MG Ora l Tablet 08/27/2020 12:00:00 AM EDT eCW1 ([facility]) 168 HR Buprenorphine 0.01 MG/HR Transdermal Patch [BuT rans] 08/27/2020 12:00:00 AM EDT eCW1 ([facility]) Acetaminophen 325 MG / Hydrocodone Bitartrate 5 MG Ora l Tablet 08/27/2020 12:00:00 AM EDT eCW1 ([facility]) [place] 1 08/14/2020 12:00:00 AM EDT eCW1 ([facility]) [place] 1 08/14/2020 12:00:00 AM EDT eCW1 ([facility]) [place] 1 08/14/2020 12:00:00 AM EDT eCW1 ([facility]) [place] 1 08/14/2020 12:00:00 AM EDT eCW1 ([facility]) [place] 1 08/14/2020 12:00:00 AM EDT eCW1 ([facility]) [place] 1 08/14/2020 12:00:00 AM EDT eCW1 ([facility]) [place] 1 08/14/2020 12:00:00 AM EDT eCW1 ([facility]) [place] 1 08/14/2020 12:00:00 AM EDT eCW1 ([facility]) [place] 1 08/14/2020 12:00:00 AM EDT eCW1 ([facility]) [place] 1 08/14/2020 12:00:00 AM EDT eCW1 ([facility]) [place] 1 08/14/2020 12:00:00 AM EDT eCW1 ([facility]) [place] 1 08/14/2020 12:00:00 AM EDT eCW1 ([facility]) [place] 1 08/14/2020 12:00:00 AM EDT eCW1 ([facility]) Sulfamethoxazole 400 MG / Trimethoprim 80 MG Oral Tabl et 05/05/2020 12:00:00 AM EDT eCW1 ([facility]) Sulfamethoxazole 400 MG / Trimethoprim 80 MG Oral Tabl et 05/05/2020 12:00:00 AM EDT eCW1 ([facility]) tizanidine 4 MG Oral Tablet 04/23/2020 12:00:00 AM EDT eCW1 ([facility]) Lisinopril 2.5 MG Oral Tablet 04/16/2020 12:00:00 AM EDT eCW1 ([facility]) Lisinopril 2.5 MG Oral Tablet 04/16/2020 12:00:00 AM EDT eCW1 ([facility]) Acetaminophen 325 MG / Hydrocodone Bitartrate 5 MG Ora l Tablet 02/26/2020 12:00:00 AM EDT eCW1 ([facility]) Acetaminophen 325 MG / Hydrocodone Bitartrate 5 MG Ora l Tablet 01/24/2020 12:00:00 AM EDT eCW1 ([facility]) cetirizine hydrochloride 10 MG Oral Tablet 01/07/2020 12:00:00 AM E DT eCW1 ([facility]) Nystatin 100 UNT/MG Topical Powder 01/03/2020 12:00:00 AM EST eCW1 ([facility]) Acetaminophen 325 MG / Hydrocodone Bitartrate 5 MG Ora l Tablet 12/03/2019 12:00:00 AM EST eCW1 ([facility]) Acetaminophen 325 MG / Hydrocodone Bitartrate 5 MG Ora l Tablet 10/22/2019 12:00:00 AM EST eCW1 ([facility]) Albuterol Sulfate HFA 108 (90 Base) MCG/ACT 10/22/2019 12:00:00 AM EST eCW1 ([facility]) Acetaminophen 325 MG / Hydrocodone Bitartrate 5 MG Ora l Tablet 09/21/2019 12:00:00 AM EST eCW1 ([facility]) Acetaminophen 325 MG / Hydrocodone Bitartrate 5 MG Ora l Tablet 09/21/2019 12:00:00 AM EST eCW1 ([facility])
[2020-11-17 00:55] LABS: BASO # 0.1 10^3/uL (0.0-0.2); BASO % 1.1 % (0.0-1.0); EOS # 0.4 10^3/uL (0.0-0.5); HEMATOCRIT 44.5 % (36.0-47.0); HEMOGLOBIN 13.6 g/dl (12.0-15.5); LYMPH # 3.4 10^3/uL (1.5-5.0); LYMPH % 27.5 % (24.0-44.0); MEAN CORPUSCULAR HEMOGLOBIN 26.6 pg (27.0-33.0); MEAN CORPUSCULAR HGB CONC 30.6 g/dl (32.0-36.5); MEAN CORPUSCULAR VOLUME 86.9 fl (80.0-96.0); MONO # 0.9 10^3/uL (0.0-0.8); MONO % 7.4 % (0.0-5.0); NEUTROPHILS # 7.4 10^3/uL (1.5-8.5); NEUTROPHILS % 60.5 % (36.0-66.0); PLATELET COUNT, AUTOMATED 333 10^3/uL (150-450); RED BLOOD COUNT 5.12 10^6/uL (4.00-5.40); WHITE BLOOD COUNT 12.3 10^3/uL (4.0-10.0)
[2020-11-17 01:10] LABS: INR 1.24; PARTIAL THROMBOPLASTIN TIME 26.5 SECONDS (24.2-38.5); PROTHROMBIN TIME 15.8 SECONDS (12.5-14.3)
[2020-11-17] MEDS ORDERED: VITA50005 PO (01:16)
[2020-11-17] MEDS ORDERED: BUPR75TA5 PO (01:16)
[2020-11-17] MEDS ORDERED: CYAN2500 SL (01:16)
[2020-11-17] MEDS ORDERED: POTA1TAB14 PO (01:16)
[2020-11-17] MEDS ORDERED: GLUC1TAB58 PO (01:16)
[2020-11-17] MEDS ORDERED: TORS20TA2 PO (01:16)
[2020-11-17] MEDS ORDERED: NYST1POW9 TOP (01:16)
[2020-11-17] MEDS ORDERED: SPIR-10 PO (01:16)
[2020-11-17 01:28] LABS: BLOOD UREA NITROGEN 39 MG/DL (7-18); CALCIUM LEVEL 9.4 MG/DL (8.8-10.2); CARBON DIOXIDE LEVEL 23 MEQ/L (21-32); CHLORIDE LEVEL 105 MEQ/L (98-107); CK-MB VALUE MASS 2.6 NG/ML (<3.6); CPK CREATINE PHOSPHOKINASE 111 U/L (26-192); CREATININE FOR GFR 1.71 MG/DL (0.55-1.30); ETHYL ALCOHOL (ETHANOL) < 0.003 % (0.000-0.010); GLOMERULAR FILTRATION RATE 31.4 (>39); GLUCOSE, FASTING 198 MG/DL (70-100); MB/CK RELATIVE INDEX 2.34 (< OR =4); NT-PRO BNP 1566 PG/ML (<125); POTASSIUM SERUM 4.1 MEQ/L (3.5-5.1); SODIUM LEVEL 141 MEQ/L (136-145); TROPONIN I < 0.02 NG/ML (< 0.10)
--- NOTE | 2020-11-17 01:48 | REPVR ---
PROCEDURE INFORMATION: Exam: CT Head Without Contrast Exam date and time: 11/17/2020 1:16 AM Age: 70 years old Clinical indication: Injury or trauma; Fall; Blunt trauma (contusions or hematomas); Additional info: Syncope TECHNIQUE: Imaging protocol: Computed tomography of the head without contrast. Radiation optimization: All CT scans at this facility use at least one of these dose optimization techniques: automated exposure control; mA and/or kV adjustment per patient size (includes targeted exams where dose is matched to clinical indication); or iterative reconstruction. COMPARISON: No relevant prior studies available. FINDINGS: Brain: No acute intracranial hemorrhage is visualized. The white-harrison differentiation is preserved demonstrating no acute territorial type infarct. There are scattered foci of white matter hypodensity, likely representing small vessel ischemic disease in a patient this age. The acuity of the white matter disease is indeterminate. There is no midline shift. Low-lying cerebellar tonsils are visualized. Cerebral ventricles: Moderate ventriculomegaly. Normal pressure hydrocephalus cannot be excluded. Bones/joints: The calvarium demonstrates no evidence for a depressed fracture. Paranasal sinuses: Visualized sinuses are unremarkable. No fluid levels. Mastoid air cells: No mastoid effusion. Orbital cavity: Bilateral orbital lens implants. Vasculature: Intracranial atherosclerosis visualized. Soft tissues: A subcentimeter nodule is identified within the right facial soft tissues.. IMPRESSION: 1. No acute intracranial hemorrhage or acute territorial type infarct. 2. Moderate ventriculomegaly. Normal pressure hydrocephalus cannot be excluded. 3. There are scattered foci of white matter hypodensity, likely representing small vessel ischemic disease in a patient this age. Electronically signed by: Andres Vaughan On 11/17/2020 01:47:39 AM
--- NOTE | 2020-11-17 01:52 | REPVR ---
PROCEDURE INFORMATION: Exam: XR Chest, 1 View Exam date and time: 11/17/2020 1:16 AM Age: 70 years old Clinical indication: Other: Syncope; Additional info: Syncope/near-syncope TECHNIQUE: Imaging protocol: XR of the chest Views: 1 view. COMPARISON: CR Chest, 2 view PA, Lat 09/08/2020 7:28 AM FINDINGS: Lungs: Mild nonspecific increased interstitial markings are again visualized bilaterally. Possible etiologies include interstitial edema, atypical infection, and/or chronic changes. There is no visualized lung consolidation. Pleural space: There is mild blunting of the left costophrenic sulcus, and a small effusion is suggested. Heart/Mediastinum: No cardiomegaly. Bones/joints: Hypertrophic degenerative changes are noted involving the spine. IMPRESSION: 1. Mild nonspecific increased interstitial markings are again visualized bilaterally. Possible etiologies include interstitial edema, atypical infection, and/or chronic changes. Clinical correlation is recommended. 2. There is no visualized lung consolidation. 3. There is mild blunting of the left costophrenic sulcus, and a small effusion is suggested. Electronically signed by: Andres Vaughan On 11/17/2020 01:52:53 AM
[2020-11-17] MEDS ORDERED: NS 500 ML IV ONE (02:15)
--- OUTSIDE RECORDS SUMMARY | 2020-11-17 02:31 | CCD ---
Author Author [facility] Organization [facility] Address Unknown Phone Unavailable Care Team Providers Care Residential Real Estate Appraiser Name Role Phone ANTECOL, Carlito ABDI MD [...] Unavailable ANTECOL, Carlito ABDI MD Unavailable Unavailable Sim, L Rebecca PA [...] Unavailable Stokes, M Iris PA-C Unavailable Unavailable Stkoes, M Iris PA-C Unavailable Unavailable Stokes, M [...] is protected by Article 27-F of the [facility] Public Health law. If you continue you may have access to information: Regarding HIV / AIDS; Provided by facilities licensed or operated by the [facility] Office of Mental Health; or Provided by the [facility] Office for People With Developmental Disabilities. If such information is present, then the following [facility] mandated warning applies: This information has [...] law may result in a fine or mcfp sentence or both. A general authorization for the release of medical or other information is NOT sufficient authorization for further disc losure. Allergies and Adverse Reactions Type Description Substance Reaction Status Data Source(s ) No Known Allergies No Known Allergies [facility] No Known Drug Allergies No Known Drug Allergies [facility] Drug allergy Latex Gloves Drug allergy Rash/ITCHING Active eCW1 ([facility]) Bee Stings Bee Stings Bee Stings Anaphylaxis Active eCW1 ([facility]) Encounters Encounter Providers Location Date Indications Data Source(s ) [place] [address] [address] 11/10/2020 12:00:00 AM EST eCW1 (Critical access hospital) Outpatient Attender: Iris GILonsultant: PCP NO 10/17/2020 01:13:00 PM EST - 10/17/2020 02:13:00 PM EST [facility] Outpatient Attender: Iris Clineultant: PCP NO 10/10/2020 07:57:57 AM EST - 10/13/2020 11:30:00 AM EST [facility] Patient discharged. [place] [address] [address] 10/07/2020 12:00:00 AM EST eCW1 (Critical access hospital) Outpatient Attender: Iris Stokes PA-C 04/2020 01:33:00 PM EST - 10/06/2020 01:33:00 PM [facility] Unknown [address] [address] 10/01/2020 12:00:00 AM EST eCW1 (Critical access hospital) Outpatient Attender: Iris Stokes PA-C 02/2020 03:10:00 PM EST - 09/04/2020 03:10:00 PM [facility] Outpatient Attender: Iris Stokes PA-C Family Practice 1102/2020 02:00:00 PM EST [facility] ([facility]) [place] [address] [address] 08/29/2020 12:00:00 AM EDT eCW1 ([facility]) Outpatient Attender: Amie Clarke/Werner/Bladimir/Kun ndl 08/27/2020 01:00:00 PM EDT MEDENT ([facility] [place]patient [address] [address] 08/27/2020 12:00:00 AM EDT eCW1 ([facility]) [place] [address] [address] 08/27/2020 12:00:00 AM EDT eCW1 ([facility]) [place] [address] [address] 08/27/2020 12:00:00 AM EDT eCW1 ([facility]) Outpatient Attender: Rebecca CARRASCO Main Office 08/22/2020 01:45:0 0 PM EDT MEDENT ([facility]) [place] [address] [address] 08/22/2020 12:00:00 AM EDT eCW1 ([facility]) [place] [address] [address] 08/21/2020 12:00:00 AM EDT eCW1 ([facility]) [place] [address] [address] 08/18/2020 12:00:00 AM EDT eCW1 ([facility]) Unknown [address] [facility] [place] [address] 08/11/2020 12:00:00 AM EDT eCW1 ([facility]) Unknown [address] [facility] [place] [address] 08/11/2020 12:00:00 AM EDT eCW1 ([facility]) Unknown [address] [facility] [address] 08/08/2020 12:00:00 AM EDT eCW1 ([facility]) Outpatient [address] [facility] [address] 08/07/2020 12:00:00 AM EDT eCW1 ([facility]) Unknown [address] [facility] [address] 08/01/2020 12:00:00 AM EDT eCW1 ([facility]) Unknown [address] [facility] [address] 07/22/2020 12:00:00 AM EDT eCW1 ([facility]) Outpatient Attender: JIN WEAVER MD Main Office 05/15/2020 12:30:00 PM EDT SHERRON ([facility]) (TCM) Transition of Care Visit [address] [place] [address] 05/05/2020 12:00:00 AM EDT eCW1 ([facility]) Unknown [address] [facility] [address] 04/15/2020 12:00:00 AM EDT eCW1 ([facility]) TeleMedicine Phone E/M by Phys 11-20 Min [address] [place] [address] 04/10/2020 12:00:00 AM EDT eCW1 (Critical access hospital) Unknown [address] [facility] [address] 04/07/2020 12:00:00 AM EDT eCW1 ([facility]) [facility] [address] [place] [address] 03/26/2020 12:00:00 AM EDT eCW1 ([facility]) Outpatient [address] [facility] [address] 03/21/2020 12:00:00 AM EDT eCW1 ([facility] [place]) Outpatient Attender: Amie Clarke/[place]/Bladimir/Kun ndl 03/19/2020 02:30:00 PM EDT MEDENT ([facility]) [facility] [address] [place] [address] 03/14/2020 12:00:00 AM EDT eCW1 ([facility]) [facility] [address] [place] [address] 03/13/2020 12:00:00 AM EDT eCW1 ([facility]) [facility] [address] [place] [address] 03/11/2020 12:00:00 AM EDT eCW1 ([facility]) [facility] [address] [place] [address] [place] [address] 03/07/2020 12:00:00 AM EDT eCW1 ([facility]) [facility] [address] [place] [address] [place] [address] 03/04/2020 12:00:00 AM EDT eCW1 ([facility]) [facility] [address] [place] [address], [place] [address] 02/26/2020 12:00:00 AM EDT eCW1 ([facility]) [facility] [address] [place] [address], [place] [address] 02/26/2020 12:00:00 AM EDT eCW1 ([facility]) [facility] [address] [place] [address] 02/19/2020 12:00:00 AM EDT eCW1 ([facility]) [facility] [address] [place] [address] 02/18/2020 12:00:00 AM EDT eCW1 ([facility]) Outpatient Attender: Amie Clarke/[place]er[place]/Bladimir/Kun ndl 01/21/2020 11:00:00 AM EDT MEDENT ([facility]) [facility] [address] [place] [address], [place] [address] 01/21/2020 12:00:00 AM EDT eCW1 ([facility]) [address] [place] [address] 01/21/2020 12:00:00 AM EDT eCW1 ([facility]) [facility] [address] [place] [address] 01/17/2020 12:00:00 AM EDT eCW1 ([facility]) [facility] [address] [place] [address] 01/15/2020 12:00:00 AM EDT eCW1 ([facility]) [facility] GME Resident [address] [place] [address] 01/07/2020 12:00:00 AM EDT eCW1 ([facility]) Outpatient 01/03/2020 03:10:00 PM EST [facility] [address] [address] 01/03/2020 12:00:00 AM EST eCW1 ([facility]) [address] [place] [address] 01/03/2020 12:00:00 AM EST eCW1 ([facility]) [address] [place] [address] 01/03/2020 12:00:00 AM EST eCW1 ([facility]) [facility] [address] [place] [address] 01/01/2020 12:00:00 AM EST eCW1 ([facility]) [facility] [address] [place] [address] 12/24/2019 12:00:00 AM EST eCW1 ([facility]) [facility] [address] [place] [address] 12/14/2019 12:00:00 AM EST eCW1 ([facility]) [address] [place] [address] 12/07/2019 12:00:00 AM EST eCW1 (Critical access hospital) [facility] [place] [address] [facility] [place] [address] 12/03/2019 12:00:00 AM EST eCW1 (Critical access hospital) [facility] GME Resident [address] [place] [address] 12/03/2019 12:00:00 AM EST eCW1 ([facility]) [facility] [address] [place] [address] 11/30/2019 12:00:00 AM EST eCW1 (Critical access hospital) Outpatient Attender: Amie Clarke/Werner/Bladimir/Kun ndbrandy 11/26/2019 08:00:00 AM EST MEDENT ([facility]) [address] [address] 11/20/2019 12:00:00 AM EST eCW1 ([facility]) [facility] [address] [place] [address] 11/16/2019 12:00:00 AM EST eCW1 (Critical access hospital) [facility] [address] [place] [address] 11/16/2019 12:00:00 AM EST eCW1 ([facility]) [facility] [address] [place] [address] 11/13/2019 12:00:00 AM EST eCW1 ([facility]) Outpatient 11/09/2019 11:48:00 AM EST [facility] Outpatient Attender: Amie Clarke/Werner/Bladimir/Kun ndbrandy 11/01/2019 08:30:00 AM EST MEDENT ([facility] [address] [place] [address] 10/22/2019 12:00:00 AM EST eCW1 ([facility]) [facility] [address] [place] [address] 10/19/2019 12:00:00 AM EST eCW1 ([facility]) [facility] [address] [place] [address] 10/19/2019 12:00:00 AM EST eCW1 ([facility]) [address] [address] 10/18/2019 12:00:00 AM EST eCW1 ([facility]) [address] [address] 10/11/2019 12:00:00 AM EST eCW1 ([facility] [place]) [address] [address] 10/09/2019 12:00:00 AM EST eCW1 ([facility]) [address] [address] 10/04/2019 12:00:00 AM EST eCW1 ([facility]) [address] [place] [address] 10/04/2019 12:00:00 AM EST eCW1 ([facility]) [address] [address] 09/24/2019 12:00:00 AM EST eCW1 ([facility]) [address] [address] 09/21/2019 12:00:00 AM EST eCW1 ([facility]) [address] [address] 09/19/2019 12:00:00 AM EST eCW1 ([facility]) [address] [address] 09/19/2019 12:00:00 AM EST [facility] Immunizations Vaccine Date Status Description Data Source(s) New in 2011. IIV4 09/04/2020 02:30:00 PM EST completed MEDENT ([facility]) Medications Medication Brand Name Start Date Product [...] 1.0 {tablet_as_needed} active Hydrocodone-Acetaminophen 5-325 MG eCW1 ([facility]) 20 mg 11/10/2020 12:00:00 AM [...] 1.0 {tablet_as_needed} active Hydrocodone-Acetaminophen 5-325 MG eCW1 ([facility]) Acetaminophen 325 MG / Hydrocodone Alexus trate 5 MG Oral Tablet Hydrocodone- Acetaminophen 5-325 MG Hydrocodone-Acetaminophen 5-325 MG 10/08/2020 12:00:00 AM EST 1.0 {tablet_as_needed} active Hydrocodone-Acetaminophen 5-325 MG eCW1 ([facility]) Oxygen Concentrator 10L With Tubing And Mask, ALL Supplies 10/06/2020 12:00:00 AM EST active MEDENT ([facility]) Cholecalciferol 29035 UNT Oral Tablet Vitamin D3 Ultra Poten cy 10/06/2020 12:00:00 AM EST ORAL active M EDENT ([facility]) 20 mg 09/30/2020 12:00:00 AM EST tablet [...] THREE TIMES A DAY NEEDED SOLD: 09/17/2020 Kourtney Allen 90 mcg/actuation 09/15/2020 12:00:00 AM EST [...] 09/12/2020 12:00:00 AM EST ORAL active MEDENT ([facility]) Loratadine 10 MG Oral Tablet [Claritin] Claritin 09/04/2020 12:00:0 0 AM EST ORAL active MEDENT ([facility]) Belbuca 150 MCG Belbuca 150 MCG 09/01/2020 12:00:00 AM EST active Belbuca 150 MCG eCW1 ([facility]) Belbuca 150 MCG Belbuca 150 MCG 09/01/2020 12:00:00 AM EST active Belbuca 150 MCG eCW1 ([facility]) Belbuca 150 MCG Belbuca 150 MCG 09/01/2020 12:00:00 AM EST active Belbuca 150 MCG eCW1 ([facility]) Belbuca 150 MCG Belbuca 150 MCG 09/01/2020 12:00:00 AM EST active Belbuca 150 MCG eCW1 ([facility]) Belbuca 150 MCG Belbuca 150 MCG 09/01/2020 12:00:00 AM EST active Belbuca 150 MCG eCW1 ([facility]) Belbuca 150 MCG Belbuca 150 MCG 09/01/2020 12:00:00 AM EST active Belbuca 150 MCG eCW1 ([facility]) Belbuca 150 MCG Belbuca 150 MCG 09/01/2020 12:00:00 AM EST active Belbuca 150 MCG eCW1 ([facility]) Acetaminophen 325 MG / Hydrocodone Alexus trate 5 MG Oral Tablet Hydrocodone- Acetaminophen 5-325 MG Hydrocodone-Acetaminophen 5-325 MG 08/27/2020 12:00:00 AM EDT 1.0 {tablet_as_needed} active Hydrocodone-Acetaminophen 5-325 MG eCW1 ([facility]) 168 HR Buprenorphine 0.01 MG/HR Transdermal Patch [BuT rans] Butrans 10 MCG/HR Butrans 10 MCG/HR 08/27/2020 12:00:00 AM EDT 1.0 {patch_to_skin} active Butrans 10 MCG/HR eCW1 ([facility]) Acetaminophen 325 MG / Hydrocodone Alexus trate 5 MG Oral Tablet Hydrocodone- Acetaminophen 5-325 MG Hydrocodone-Acetaminophen 5-325 MG 08/27/2020 12:00:00 AM EDT 1.0 {tablet_as_needed} active Hydrocodone-Acetaminophen 5-325 MG eCW1 ([facility]) Acetaminophen 325 MG / Hydrocodone Alexus trate 5 MG Oral Tablet Hydrocodone- Acetaminophen 5-325 MG Hydrocodone-Acetaminophen 5-325 MG 08/27/2020 12:00:00 AM EDT 1.0 {tablet_as_needed} active Hydrocodone-Acetaminophen 5-325 MG eCW1 ([facility]) 168 HR Buprenorphine 0.01 MG/HR Transdermal Patch [BuT rans] Butrans 10 MCG/HR Butrans 10 MCG/HR 08/27/2020 12:00:00 AM EDT 1.0 {patch_to_skin} active Butrans 10 MCG/HR eCW1 ([facility]) Acetaminophen 325 MG / Hydrocodone Alexus trate 5 MG Oral Tablet Hydrocodone- Acetaminophen 5-325 MG Hydrocodone-Acetaminophen 5-325 MG 08/27/2020 12:00:00 AM EDT 1.0 {tablet_as_needed} active Hydrocodone-Acetaminophen 5-325 MG eCW1 ([facility]) 168 HR Buprenorphine 0.01 MG/HR Transdermal Patch [BuT rans] Butrans 10 MCG/HR Butrans 10 MCG/HR 08/27/2020 12:00:00 AM EDT 1.0 {patch_to_skin} active Butrans 10 MCG/HR eCW1 ([facility]) Acetaminophen 325 MG / Hydrocodone Alexus trate 5 MG Oral Tablet Hydrocodone- Acetaminophen 5-325 MG Hydrocodone-Acetaminophen 5-325 MG 08/27/2020 12:00:00 AM EDT 1.0 {tablet_as_needed} active Hydrocodone-Acetaminophen 5-325 MG eCW1 ([facility]) Acetaminophen 325 MG / Hydrocodone Alexus trate 5 MG Oral Tablet Hydrocodone- Acetaminophen 5-325 MG Hydrocodone-Acetaminophen 5-325 MG 08/27/2020 12:00:00 AM EDT 1.0 {tablet_as_needed} active Hydrocodone-Acetaminophen 5-325 MG eCW1 ([facility]) Acetaminophen 325 MG / Hydrocodone Alexus trate 5 MG Oral Tablet Hydrocodone- Acetaminophen 5-325 MG Hydrocodone-Acetaminophen 5-325 MG 08/27/2020 12:00:00 AM EDT 1.0 {tablet_as_needed} active Hydrocodone-Acetaminophen 5-325 MG eCW1 ([facility]) 168 HR Buprenorphine 0.01 MG/HR Transdermal Patch [BuT rans] Butrans 10 MCG/HR Butrans 10 MCG/HR 08/27/2020 12:00:00 AM EDT 1.0 {patch_to_skin} active Butrans 10 MCG/HR eCW1 ([facility]) 168 HR Buprenorphine 0.01 MG/HR Transdermal Patch [BuT rans] Butrans 10 MCG/HR Butrans 10 MCG/HR 08/27/2020 12:00:00 AM EDT 1.0 {patch_to_skin} active Butrans 10 MCG/HR eCW1 ([facility]) 168 HR Buprenorphine 0.01 MG/HR Transdermal Patch [BuT rans] Butrans 10 MCG/HR Butrans 10 MCG/HR 08/27/2020 12:00:00 AM EDT 1.0 {patch_to_skin} active Butrans 10 MCG/HR eCW1 ([facility]) 168 HR Buprenorphine 0.01 MG/HR Transdermal Patch [BuT rans] Butrans 10 MCG/HR Butrans 10 MCG/HR 08/27/2020 12:00:00 AM EDT 1.0 {patch_to_skin} active Butrans 10 MCG/HR eCW1 ([facility]) 168 HR Buprenorphine 0.01 MG/HR Transdermal Patch [BuT rans] Butrans 10 MCG/HR Butrans 10 MCG/HR 08/27/2020 12:00:00 AM EDT 1.0 {patch_to_skin} active Butrans 10 MCG/HR eCW1 ([facility]) Prednisone 10 MG Oral Tablet Prednisone 08/27/2020 12:00:00 AM EDT ORAL completed MEDENT ([facility] ) Acetaminophen 325 MG / Hydrocodone Alexus trate 5 MG Oral Tablet Hydrocodone- Acetaminophen 5-325 MG Hydrocodone-Acetaminophen 5-325 MG 08/27/2020 12:00:00 AM EDT 1.0 {tablet_as_needed} active Hydrocodone-Acetaminophen 5-325 MG eCW1 ([facility]) 168 HR Buprenorphine 0.01 MG/HR Transdermal Patch [BuT rans] Butrans 10 MCG/HR Butrans 10 MCG/HR 08/27/2020 12:00:00 AM EDT 1.0 {patch_to_skin} active Butrans 10 MCG/HR eCW1 ([facility]) 168 HR Buprenorphine 0.01 MG/HR Transdermal Patch [BuT rans] Butrans 10 MCG/HR Butrans 10 MCG/HR 08/27/2020 12:00:00 AM EDT 1.0 {patch_to_skin} active Butrans 10 MCG/HR eCW1 ([facility]) Acetaminophen 325 MG / Hydrocodone Alexus trate 5 MG Oral Tablet Hydrocodone- Acetaminophen 5-325 MG Hydrocodone-Acetaminophen 5-325 MG 08/27/2020 12:00:00 AM EDT 1.0 {tablet_as_needed} active Hydrocodone-Acetaminophen 5-325 MG eCW1 ([facility]) 168 HR Buprenorphine 0.01 MG/HR Transdermal Patch [BuT rans] Butrans 10 MCG/HR Butrans 10 MCG/HR 08/27/2020 12:00:00 AM EDT 1.0 {patch_to_skin} active Butrans 10 MCG/HR eCW1 ([facility]) 168 HR Buprenorphine 0.01 MG/HR Transdermal Patch [BuT rans] Butrans 10 MCG/HR Butrans 10 MCG/HR 08/27/2020 12:00:00 AM EDT 1.0 {patch_to_skin} active Butrans 10 MCG/HR eCW1 ([facility]) Albuterol 0.83 MG/ML Inhalant Solution Albuterol Sulfate 1 12:00:00 AM EDT active [facility]ENT [facility]) 0.3 ML Epinephrine 1 MG/ML Auto-Injector [Epipen] Epipen 2-P ak 08/21/2020 12:00:00 AM EDT active M EDENT ([facility]) 200 ACTUAT Albuterol 0.09 MG/ACTUAT Metered Dose Inhaler [Pr oAir] Proair HFA 08/21/2020 12:00:00 AM EDT ORAL active MEDENT ([facility]) pregabalin 75 MG Oral Capsule [Lyrica] Lyrica 08/21/2020 12:00:00 AM EDT ORAL active [facility]ENT ([facility]) Rolling Walker 1 K 08/14/2020 12:00:00 AM EDT active Rolling Walker 1 eCW1 ([facility]) Rolling Walker 1 K 08/14/2020 12:00:00 AM EDT active Rolling Walker 1 eCW1 ([facility]) Rolling Walker 1 K 08/14/2020 12:00:00 AM EDT active Rolling Walker 1 eCW1 ([facility]) Rolling Walker 1 K 08/14/2020 12:00:00 AM EDT active Rolling Walker 1 eCW1 ([facility]) Rolling Walker 1 K 08/14/2020 12:00:00 AM EDT active Rolling Walker 1 eCW1 ([facility]) Rolling Walker 1 UNK 08/14/2020 12:00:00 AM EDT active Rolling Walker 1 eCW1 ([facility]) Rolling Walker 1 UNK 08/14/2020 12:00:00 AM EDT active Rolling Walker 1 eCW1 ([facility]) Rolling Walker 1 UNK 08/14/2020 12:00:00 AM EDT active Rolling Walker 1 eCW1 ([facility]) Rolling Walker 1 UNK 08/14/2020 12:00:00 AM EDT active Rolling Walker 1 eCW1 ([facility]) Rolling Walker 1 UNK 08/14/2020 12:00:00 AM EDT active Rolling Walker 1 eCW1 ([facility]) Rolling Walker 1 UNK 08/14/2020 12:00:00 AM EDT active Rolling Walker 1 eCW1 ([facility]) Rolling Walker 1 UNK 08/14/2020 12:00:00 AM EDT active Rolling Walker 1 eCW1 ([facility]) Rolling Walker 1 UNK 08/14/2020 12:00:00 AM EDT active Rolling Walker 1 eCW1 ([facility]) Potassium Chloride 20 MEQ Extended Relea se Oral Tablet Potassium Chloride ER 20 MEQ Potassium Chloride ER 20 MEQ 08/07/2020 12:00:00 AM EDT 1.0 {tablet_with_food} active Potassium Chl oride ER 20 MEQ eCW1 ([facility]) Potassium Chloride 20 MEQ Extended Relea se Oral Tablet Potassium Chloride ER 20 MEQ Potassium Chloride ER 20 MEQ 08/07/2020 12:00:00 AM EDT 1.0 {tablet_with_food} active Potassium Chl oride ER 20 MEQ eCW1 ([facility]) Potassium Chloride 20 MEQ Extended Relea se Oral Tablet Potassium Chloride ER 20 MEQ Potassium Chloride ER 20 MEQ 08/07/2020 12:00:00 AM EDT 1.0 {tablet_with_food} active Potassium Chl oride ER 20 MEQ eCW1 ([facility]) Potassium Chloride 20 MEQ Extended Relea se Oral Tablet Potassium Chloride ER 20 MEQ Potassium Chloride ER 20 MEQ 08/07/2020 12:00:00 AM EDT 1.0 {tablet_with_food} active Potassium Chl oride ER 20 MEQ eCW1 ([facility]) Potassium Chloride 20 MEQ Extended Relea se Oral Tablet Potassium Chloride ER 20 MEQ Potassium Chloride ER 20 MEQ 08/07/2020 12:00:00 AM EDT 1.0 {tablet_with_food} active Potassium Chl oride ER 20 MEQ eCW1 ([facility]) Potassium Chloride 20 MEQ Extended Relea se Oral Tablet Potassium Chloride ER 20 MEQ Potassium Chloride ER 20 MEQ 08/07/2020 12:00:00 AM EDT 1.0 {tablet_with_food} active Potassium Chl oride ER 20 MEQ eCW1 ([facility]) Potassium Chloride 20 MEQ Extended Relea se Oral Tablet Potassium Chloride ER 20 MEQ Potassium Chloride ER 20 MEQ 08/07/2020 12:00:00 AM EDT 1.0 {tablet_with_food} active Potassium Chl oride ER 20 MEQ eCW1 ([facility]) Potassium Chloride 20 MEQ Extended Relea se Oral Tablet Potassium Chloride ER 20 MEQ Potassium Chloride ER 20 MEQ 08/07/2020 12:00:00 AM EDT 1.0 {tablet_with_food} active Potassium Chl oride ER 20 MEQ eCW1 ([facility]) Potassium Chloride 20 MEQ Extended Relea se Oral Tablet Potassium Chloride ER 20 MEQ Potassium Chloride ER 20 MEQ 08/07/2020 12:00:00 AM EDT 1.0 {tablet_with_food} active Potassium Chl oride ER 20 MEQ eCW1 ([facility]) Potassium Chloride 20 MEQ Extended Relea se Oral Tablet Potassium Chloride ER 20 MEQ Potassium Chloride ER 20 MEQ 08/07/2020 12:00:00 AM EDT 1.0 {tablet_with_food} active Potassium Chl oride ER 20 MEQ eCW1 ([facility]) Potassium Chloride 20 MEQ Extended Relea se Oral Tablet Potassium Chloride ER 20 MEQ Potassium Chloride ER 20 MEQ 08/07/2020 12:00:00 AM EDT 1.0 {tablet_with_food} active Potassium Chl oride ER 20 MEQ eCW1 ([facility]) Potassium Chloride 20 MEQ Extended Relea se Oral Tablet Potassium Chloride ER 20 MEQ Potassium Chloride ER 20 MEQ 08/07/2020 12:00:00 AM EDT 1.0 {tablet_with_food} active Potassium Chl oride ER 20 MEQ eCW1 ([facility]) Potassium Chloride 20 MEQ Extended Relea se Oral Tablet Potassium Chloride ER 20 MEQ Potassium Chloride ER 20 MEQ 08/07/2020 12:00:00 AM EDT 1.0 {tablet_with_food} active Potassium Chl oride ER 20 MEQ eCW1 ([facility]) Potassium Chloride 20 MEQ Extended Relea se Oral Tablet Potassium Chloride ER 20 MEQ Potassium Chloride ER 20 MEQ 08/07/2020 12:00:00 AM EDT 1.0 {tablet_with_food} active Potassium Chl oride ER 20 MEQ eCW1 ([facility]) Potassium Chloride 20 MEQ Extended Relea se Oral Tablet Potassium Chloride ER 20 MEQ Potassium Chloride ER 20 MEQ 08/07/2020 12:00:00 AM EDT 1.0 {tablet_with_food} active Potassium Chl oride ER 20 MEQ eCW1 ([facility]) icosapent ethyl 1000 MG Oral Capsule [Vascepa] Vascepa 05/15/2020 12:00:00 AM EDT ORAL active [facility] ([facility]) Bisoprolol Fumarate 5 MG Oral Tablet Bisoprolol Fumarate 12:00:00 AM EDT ORAL active [facility] ([facility]) Azithromycin 250 MG Oral Tablet Azithromycin 05/14/2020 12:00:00 AM E DT ORAL active [facility] ([facility]) cetirizine hydrochloride 10 MG Oral Tablet Cetirizine HCL 05/14/2020 12:00:00 AM EDT ORAL active [facility] ([facility]) Omeprazole 20 MG Delayed Release Oral Capsule Omeprazole 05/14/2020 12:00:00 AM EDT ORAL active [facility] ([facility]) tizanidine 4 MG Oral Capsule Tizanidine HCL 05/14/2020 12:00:00 AM EDT ORAL active [facility] ([facility]) 24 HR Propranolol Hydrochloride 60 MG Extended Release Oral Capsule Propranolol HCL ER 05/14/2020 12:00:00 AM EDT ORAL completed MED[facility] ([facility]) Preservision Areds 2 05/14/2020 12:00:00 AM EDT ORAL active [facility] ([facility]) 12 HR Bupropion Hydrochloride 150 MG Extended Release Oral Tablet Bupropion HCL ER (SR) 05/14/2020 12:00:00 AM EDT ORAL active [facility] ([facility]) Metformin hydrochloride 500 MG Oral Tablet Metformin HCL 05/14/2020 12:00:00 AM EDT ORAL active [facility] ([facility]) Furosemide 20 MG Oral Tablet Furosemide 05/14/2020 12:00:00 AM EDT ORAL active [facility] ([facility]) Aspirin 81 MG Delayed Release Oral Tablet Aspirin 81 2019 12:00:00 AM EDT ORAL active [facility] ( [facility]) Lisinopril 2.5 MG Oral Tablet Lisinopril 05/14/2020 12:00:00 AM EDT ORAL active [facility] ([facility]) gabapentin 300 MG Oral Capsule Gabapentin 05/14/2020 12:00:00 AM EDT ORAL completed [facility] ([facility]) Vitamin B 12 0.5 MG Oral Tablet Vitamin B12 05/14/2020 12:00:00 AM EDT ORAL active [facility] ([facility]) Oxygen - Home 05/14/2020 12:00:00 AM EDT acti ve MEDENT ([facility]) atorvastatin 40 MG Oral Tablet Atorvastatin Calcium 05/14/2020 1 2:00:00 AM EDT ORAL active [facility]ENT ( [facility]) Sulfamethoxazole 400 MG / Trimethoprim 8 0 MG Oral Tablet Sulfamethoxazole- Trimethoprim 400-80 MG Sulfamethoxazole-Trimethoprim 400-80 MG 05/05/2020 12:00:00 AM EDT 1.0 {tablet} active Sulfamethoxazole-Trimethoprim 400-80 MG eCW1 ([facility]) Sulfamethoxazole 400 MG / Trimethoprim 8 0 MG Oral Tablet Sulfamethoxazole- Trimethoprim 400-80 MG Sulfamethoxazole-Trimethoprim 400-80 MG 05/05/2020 12:00:00 AM EDT 1.0 {tablet} active Sulfamethoxazole-Trimethoprim 400-80 MG eCW1 ([facility]) Albuterol 0.83 MG/ML Inhalant Solution Albuterol Sulfa te (2.5 MG/3ML) 0.083% Albuterol Sulfate (2.5 MG/3ML) 0.083% 04/25/2020 12:00:00 AM EDT 3.0 {ml} active Albuterol Sulfate (2.5 MG/3M L) 0.083% eCW1 ([facility]) Albuterol 0.83 MG/ML Inhalant Solution Albuterol Sulfa te (2.5 MG/3ML) 0.083% Albuterol Sulfate (2.5 MG/3ML) 0.083% 04/25/2020 12:00:00 AM EDT 3.0 {ml} active Albuterol Sulfate (2.5 MG/3M L) 0.083% eCW1 ([facility]) Albuterol 0.83 MG/ML Inhalant Solution Albuterol Sulfa te (2.5 MG/3ML) 0.083% Albuterol Sulfate (2.5 MG/3ML) 0.083% 04/25/2020 12:00:00 AM EDT 3.0 {ml} active Albuterol Sulfate (2.5 MG/3M L) 0.083% eCW1 ([facility]) Albuterol 0.83 MG/ML Inhalant Solution Albuterol Sulfa te (2.5 MG/3ML) 0.083% Albuterol Sulfate (2.5 MG/3ML) 0.083% 04/25/2020 12:00:00 AM EDT 3.0 {ml} active Albuterol Sulfate (2.5 MG/3M L) 0.083% eCW1 ([facility]) Albuterol 0.83 MG/ML Inhalant Solution Albuterol Sulfa te (2.5 MG/3ML) 0.083% Albuterol Sulfate (2.5 MG/3ML) 0.083% 04/25/2020 12:00:00 AM EDT 3.0 {ml} active Albuterol Sulfate (2.5 MG/3M L) 0.083% eCW1 ([facility]) Albuterol 0.83 MG/ML Inhalant Solution Albuterol Sulfa te (2.5 MG/3ML) 0.083% Albuterol Sulfate (2.5 MG/3ML) 0.083% 04/25/2020 12:00:00 AM EDT 3.0 {ml} active Albuterol Sulfate (2.5 MG/3M L) 0.083% eCW1 ([facility]) Albuterol 0.83 MG/ML Inhalant Solution Albuterol Sulfa te (2.5 MG/3ML) 0.083% Albuterol Sulfate (2.5 MG/3ML) 0.083% 04/25/2020 12:00:00 AM EDT 3.0 {ml} active Albuterol Sulfate (2.5 MG/3M L) 0.083% eCW1 ([facility]) Albuterol 0.83 MG/ML Inhalant Solution Albuterol Sulfa te (2.5 MG/3ML) 0.083% Albuterol Sulfate (2.5 MG/3ML) 0.083% 04/25/2020 12:00:00 AM EDT 3.0 {ml} active Albuterol Sulfate (2.5 MG/3M L) 0.083% eCW1 ([facility]) Albuterol 0.83 MG/ML Inhalant Solution Albuterol Sulfa te (2.5 MG/3ML) 0.083% Albuterol Sulfate (2.5 MG/3ML) 0.083% 04/25/2020 12:00:00 AM EDT 3.0 {ml} active Albuterol Sulfate (2.5 MG/3M L) 0.083% eCW1 ([facility]) Albuterol 0.83 MG/ML Inhalant Solution Albuterol Sulfa te (2.5 MG/3ML) 0.083% Albuterol Sulfate (2.5 MG/3ML) 0.083% 04/25/2020 12:00:00 AM EDT 3.0 {ml} active Albuterol Sulfate (2.5 MG/3M L) 0.083% eCW1 ([facility]) Albuterol 0.83 MG/ML Inhalant Solution Albuterol Sulfa te (2.5 MG/3ML) 0.083% Albuterol Sulfate (2.5 MG/3ML) 0.083% 04/25/2020 12:00:00 AM EDT 3.0 {ml} active Albuterol Sulfate (2.5 MG/3M L) 0.083% eCW1 ([facility]) Albuterol 0.83 MG/ML Inhalant Solution Albuterol Sulfa te (2.5 MG/3ML) 0.083% Albuterol Sulfate (2.5 MG/3ML) 0.083% 04/25/2020 12:00:00 AM EDT 3.0 {ml} active Albuterol Sulfate (2.5 MG/3M L) 0.083% eCW1 ([facility]) Albuterol 0.83 MG/ML Inhalant Solution Albuterol Sulfa te (2.5 MG/3ML) 0.083% Albuterol Sulfate (2.5 MG/3ML) 0.083% 04/25/2020 12:00:00 AM EDT 3.0 {ml} active Albuterol Sulfate (2.5 MG/3M L) 0.083% eCW1 ([facility]) Albuterol 0.83 MG/ML Inhalant Solution Albuterol Sulfa te (2.5 MG/3ML) 0.083% Albuterol Sulfate (2.5 MG/3ML) 0.083% 04/25/2020 12:00:00 AM EDT 3.0 {ml} active Albuterol Sulfate (2.5 MG/3M L) 0.083% eCW1 ([facility]) Albuterol 0.83 MG/ML Inhalant Solution Albuterol Sulfa te (2.5 MG/3ML) 0.083% Albuterol Sulfate (2.5 MG/3ML) 0.083% 04/25/2020 12:00:00 AM EDT 3.0 {ml} active Albuterol Sulfate (2.5 MG/3M L) 0.083% eCW1 ([facility]) Albuterol 0.83 MG/ML Inhalant Solution Albuterol Sulfa te (2.5 MG/3ML) 0.083% Albuterol Sulfate (2.5 MG/3ML) 0.083% 04/25/2020 12:00:00 AM EDT 3.0 {ml} active Albuterol Sulfate (2.5 MG/3M L) 0.083% eCW1 ([facility]) Albuterol 0.83 MG/ML Inhalant Solution Albuterol Sulfa te (2.5 MG/3ML) 0.083% Albuterol Sulfate (2.5 MG/3ML) 0.083% 04/25/2020 12:00:00 AM EDT 3.0 {ml} active Albuterol Sulfate (2.5 MG/3M L) 0.083% eCW1 ([facility]) 0.3 ML Epinephrine 1 MG/ML Auto-Injector [Epipen] EpiP en 2-Hank 0.3 MG/0.3ML EpiPen 2-Hank 0.3 MG/0.3ML 04/23/2020 12:00:00 AM EDT active EpiPen 2-Hank 0.3 MG/0.3ML eCW1 ([facility]) Furosemide 20 MG Oral Tablet Furosemide 20 MG 04/23/2020 12:00:00 AM E DT active Furosemide 20 MG eCW1 ([facility]) Omeprazole 20 MG Delayed Release Oral Capsule Omeprazole 20 MG 04/23/2020 12:00:00 AM EDT active Omeprazo le 20 MG eCW1 ([facility]) 0.3 ML Epinephrine 1 MG/ML Auto-Injector [Epipen] EpiP en 2-Hank 0.3 MG/0.3ML EpiPen 2-Hank 0.3 MG/0.3ML 04/23/2020 12:00:00 AM EDT active EpiPen 2-Hank 0.3 MG/0.3ML eCW1 ([facility]) 0.3 ML Epinephrine 1 MG/ML Auto-Injector [Epipen] EpiP en 2-Hank 0.3 MG/0.3ML EpiPen 2-Hank 0.3 MG/0.3ML 04/23/2020 12:00:00 AM EDT active EpiPen 2-Hank 0.3 MG/0.3ML eCW1 ([facility]) Furosemide 20 MG Oral Tablet Furosemide 20 MG 04/23/2020 12:00:00 AM E DT active Furosemide 20 MG eCW1 ([facility]) Omeprazole 20 MG Delayed Release Oral Capsule Omeprazole 20 MG 04/23/2020 12:00:00 AM EDT active Omeprazo le 20 MG eCW1 ([facility]) tizanidine 4 MG Oral Tablet Tizanidine HCl 4 MG Tizanidine H Cl 4 MG 04/23/2020 12:00:00 AM EDT active Tizanidi ne HCl 4 MG eCW1 ([facility]) Omeprazole 20 MG Delayed Release Oral Capsule Omeprazole 20 MG 04/23/2020 12:00:00 AM EDT active Omeprazo le 20 MG eCW1 ([facility]) Sulfamethoxazole 400 MG / Trimethoprim 8 0 MG Oral Tablet Sulfamethoxazole- Trimethoprim 400-80 MG Sulfamethoxazole-Trimethoprim 400-80 MG 04/23/2020 12:00:00 AM EDT 1.0 {tablet} suspended Sulfamethoxazole-Trimethoprim 400-80 MG eCW1 ([facility]) tizanidine 4 MG Oral Tablet Tizanidine HCl 4 MG Tizanidine H Cl 4 MG 04/23/2020 12:00:00 AM EDT active Tizanidi ne HCl 4 MG eCW1 ([facility]) 0.3 ML Epinephrine 1 MG/ML Auto-Injector [Epipen] EpiP en 2-Hank 0.3 MG/0.3ML EpiPen 2-Hank 0.3 MG/0.3ML 04/23/2020 12:00:00 AM EDT active EpiPen 2-Hank 0.3 MG/0.3ML eCW1 ([facility]) 0.3 ML Epinephrine 1 MG/ML Auto-Injector [Epipen] EpiP en 2-Hank 0.3 MG/0.3ML EpiPen 2-Hank 0.3 MG/0.3ML 04/23/2020 12:00:00 AM EDT active EpiPen 2-Hank 0.3 MG/0.3ML eCW1 ([facility]) Furosemide 20 MG Oral Tablet Furosemide 20 MG 04/23/2020 12:00:00 AM E DT active Furosemide 20 MG eCW1 ([facility]) Omeprazole 20 MG Delayed Release Oral Capsule Omeprazole 20 MG 04/23/2020 12:00:00 AM EDT active Omeprazo le 20 MG eCW1 ([facility]) Omeprazole 20 MG Delayed Release Oral Capsule Omeprazole 20 MG 04/23/2020 12:00:00 AM EDT active Omeprazo le 20 MG eCW1 ([facility]) tizanidine 4 MG Oral Tablet Tizanidine HCl 4 MG Tizanidine H Cl 4 MG 04/23/2020 12:00:00 AM EDT active Tizanidi ne HCl 4 MG eCW1 ([facility]) Omeprazole 20 MG Delayed Release Oral Capsule Omeprazole 20 MG 04/23/2020 12:00:00 AM EDT active Omeprazo le 20 MG eCW1 ([facility]) tizanidine 4 MG Oral Tablet Tizanidine HCl 4 MG Tizanidine H Cl 4 MG 04/23/2020 12:00:00 AM EDT active Tizanidi ne HCl 4 MG eCW1 ([facility]) Omeprazole 20 MG Delayed Release Oral Capsule Omeprazole 20 MG 04/23/2020 12:00:00 AM EDT active Omeprazo le 20 MG eCW1 ([facility]) 0.3 ML Epinephrine 1 MG/ML Auto-Injector [Epipen] EpiP en 2-Hank 0.3 MG/0.3ML EpiPen 2-Hank 0.3 MG/0.3ML 04/23/2020 12:00:00 AM EDT active EpiPen 2-Hank 0.3 MG/0.3ML eCW1 ([facility]) tizanidine 4 MG Oral Tablet Tizanidine HCl 4 MG Tizanidine H Cl 4 MG 04/23/2020 12:00:00 AM EDT active Tizanidi ne HCl 4 MG eCW1 ([facility]) 0.3 ML Epinephrine 1 MG/ML Auto-Injector [Epipen] EpiP en 2-Hank 0.3 MG/0.3ML EpiPen 2-Hank 0.3 MG/0.3ML 04/23/2020 12:00:00 AM EDT active EpiPen 2-Hank 0.3 MG/0.3ML eCW1 ([facility]) Furosemide 20 MG Oral Tablet Furosemide 20 MG 04/23/2020 12:00:00 AM E DT active Furosemide 20 MG eCW1 ([facility]) Omeprazole 20 MG Delayed Release Oral Capsule Omeprazole 20 MG 04/23/2020 12:00:00 AM EDT active Omeprazo le 20 MG eCW1 ([facility]) tizanidine 4 MG Oral Tablet Tizanidine HCl 4 MG Tizanidine H Cl 4 MG 04/23/2020 12:00:00 AM EDT active Tizanidi ne HCl 4 MG eCW1 ([facility]) 0.3 ML Epinephrine 1 MG/ML Auto-Injector [Epipen] EpiP en 2-Hank 0.3 MG/0.3ML EpiPen 2-Hank 0.3 MG/0.3ML 04/23/2020 12:00:00 AM EDT active EpiPen 2-Hank 0.3 MG/0.3ML eCW1 ([facility]) 0.3 ML Epinephrine 1 MG/ML Auto-Injector [Epipen] EpiP en 2-Hank 0.3 MG/0.3ML EpiPen 2-Hank 0.3 MG/0.3ML 04/23/2020 12:00:00 AM EDT active EpiPen 2-Hank 0.3 MG/0.3ML eCW1 ([facility]) tizanidine 4 MG Oral Tablet Tizanidine HCl 4 MG Tizanidine H Cl 4 MG 04/23/2020 12:00:00 AM EDT active Tizanidi ne HCl 4 MG eCW1 ([facility]) Omeprazole 20 MG Delayed Release Oral Capsule Omeprazole 20 MG 04/23/2020 12:00:00 AM EDT active Omeprazo le 20 MG eCW1 ([facility]) 0.3 ML Epinephrine 1 MG/ML Auto-Injector [Epipen] EpiP en 2-Hank 0.3 MG/0.3ML EpiPen 2-Hank 0.3 MG/0.3ML 04/23/2020 12:00:00 AM EDT active EpiPen 2-Hank 0.3 MG/0.3ML eCW1 ([facility]) tizanidine 4 MG Oral Tablet Tizanidine HCl 4 MG Tizanidine H Cl 4 MG 04/23/2020 12:00:00 AM EDT active Tizanidi ne HCl 4 MG eCW1 ([facility]) Furosemide 20 MG Oral Tablet Furosemide 20 MG 04/23/2020 12:00:00 AM E DT active Furosemide 20 MG eCW1 ([facility]) Furosemide 20 MG Oral Tablet Furosemide 20 MG 04/23/2020 12:00:00 AM E DT active Furosemide 20 MG eCW1 ([facility]) Furosemide 20 MG Oral Tablet Furosemide 20 MG 04/23/2020 12:00:00 AM E DT active Furosemide 20 MG eCW1 ([facility]) 0.3 ML Epinephrine 1 MG/ML Auto-Injector [Epipen] EpiP en 2-Hank 0.3 MG/0.3ML EpiPen 2-Hank 0.3 MG/0.3ML 04/23/2020 12:00:00 AM EDT active EpiPen 2-Hank 0.3 MG/0.3ML eCW1 ([facility]) 0.3 ML Epinephrine 1 MG/ML Auto-Injector [Epipen] EpiP en 2-Hank 0.3 MG/0.3ML EpiPen 2-Hank 0.3 MG/0.3ML 04/23/2020 12:00:00 AM EDT active EpiPen 2-Hank 0.3 MG/0.3ML eCW1 ([facility]) Furosemide 20 MG Oral Tablet Furosemide 20 MG 04/23/2020 12:00:00 AM E DT active Furosemide 20 MG eCW1 ([facility]) Prednisone 10 MG Oral Tablet PredniSONE 10 MG PredniSONE 10 MG 04/23/2020 12:00:00 AM EDT active PredniSO NE 10 MG eCW1 ([facility]) Prednisone 10 MG Oral Tablet PredniSONE 10 MG PredniSONE 10 MG 04/23/2020 12:00:00 AM EDT active PredniSO NE 10 MG eCW1 ([facility]) Omeprazole 20 MG Delayed Release Oral Capsule Omeprazole 20 MG 04/23/2020 12:00:00 AM EDT active Omeprazo le 20 MG eCW1 ([facility]) tizanidine 4 MG Oral Tablet Tizanidine HCl 4 MG Tizanidine H Cl 4 MG 04/23/2020 12:00:00 AM EDT active Tizanidi ne HCl 4 MG eCW1 ([facility]) 0.3 ML Epinephrine 1 MG/ML Auto-Injector [Epipen] EpiP en 2-Hank 0.3 MG/0.3ML EpiPen 2-Hank 0.3 MG/0.3ML 04/23/2020 12:00:00 AM EDT active EpiPen 2-Hank 0.3 MG/0.3ML eCW1 ([facility]) tizanidine 4 MG Oral Tablet Tizanidine HCl 4 MG Tizanidine H Cl 4 MG 04/23/2020 12:00:00 AM EDT active Tizanidi ne HCl 4 MG eCW1 ([facility]) Furosemide 20 MG Oral Tablet Furosemide 20 MG 04/23/2020 12:00:00 AM E DT active Furosemide 20 MG eCW1 ([facility]) Omeprazole 20 MG Delayed Release Oral Capsule Omeprazole 20 MG 04/23/2020 12:00:00 AM EDT active Omeprazo le 20 MG eCW1 ([facility]) Omeprazole 20 MG Delayed Release Oral Capsule Omeprazole 20 MG 04/23/2020 12:00:00 AM EDT active Omeprazo le 20 MG eCW1 ([facility]) Furosemide 20 MG Oral Tablet Furosemide 20 MG 04/23/2020 12:00:00 AM E DT active Furosemide 20 MG eCW1 ([facility]) Furosemide 20 MG Oral Tablet Furosemide 20 MG 04/23/2020 12:00:00 AM E DT active Furosemide 20 MG eCW1 ([facility]) tizanidine 4 MG Oral Tablet Tizanidine HCl 4 MG Tizanidine H Cl 4 MG 04/23/2020 12:00:00 AM EDT active Tizanidi ne HCl 4 MG eCW1 ([facility]) Omeprazole 20 MG Delayed Release Oral Capsule Omeprazole 20 MG 04/23/2020 12:00:00 AM EDT active Omeprazo le 20 MG eCW1 ([facility]) Sulfamethoxazole 400 MG / Trimethoprim 8 0 MG Oral Tablet Sulfamethoxazole- Trimethoprim 400-80 MG Sulfamethoxazole-Trimethoprim 400-80 MG 04/23/2020 12:00:00 AM EDT 1.0 {tablet} suspended Sulfamethoxazole-Trimethoprim 400-80 MG eCW1 ([facility]) 0.3 ML Epinephrine 1 MG/ML Auto-Injector [Epipen] EpiP en 2-Hank 0.3 MG/0.3ML EpiPen 2-Hank 0.3 MG/0.3ML 04/23/2020 12:00:00 AM EDT active EpiPen 2-Hank 0.3 MG/0.3ML eCW1 ([facility]) Furosemide 20 MG Oral Tablet Furosemide 20 MG 04/23/2020 12:00:00 AM E DT active Furosemide 20 MG eCW1 ([facility]) 0.3 ML Epinephrine 1 MG/ML Auto-Injector [Epipen] EpiP en 2-Hank 0.3 MG/0.3ML EpiPen 2-Hank 0.3 MG/0.3ML 04/23/2020 12:00:00 AM EDT active EpiPen 2-Hank 0.3 MG/0.3ML eCW1 ([facility]) tizanidine 4 MG Oral Tablet Tizanidine HCl 4 MG Tizanidine H Cl 4 MG 04/23/2020 12:00:00 AM EDT active Tizanidi ne HCl 4 MG eCW1 ([facility]) Furosemide 20 MG Oral Tablet Furosemide 20 MG 04/23/2020 12:00:00 AM E DT active Furosemide 20 MG eCW1 ([facility]) tizanidine 4 MG Oral Tablet Tizanidine HCl 4 MG Tizanidine H Cl 4 MG 04/23/2020 12:00:00 AM EDT active Tizanidi ne HCl 4 MG eCW1 ([facility]) tizanidine 4 MG Oral Tablet Tizanidine HCl 4 MG Tizanidine H Cl 4 MG 04/23/2020 12:00:00 AM EDT active Tizanidi ne HCl 4 MG eCW1 ([facility]) tizanidine 4 MG Oral Tablet Tizanidine HCl 4 MG Tizanidine H Cl 4 MG 04/23/2020 12:00:00 AM EDT active Tizanidi ne HCl 4 MG eCW1 ([facility]) 0.3 ML Epinephrine 1 MG/ML Auto-Injector [Epipen] EpiP en 2-Hank 0.3 MG/0.3ML EpiPen 2-Hank 0.3 MG/0.3ML 04/23/2020 12:00:00 AM EDT active EpiPen 2-Hank 0.3 MG/0.3ML eCW1 ([facility]) Furosemide 20 MG Oral Tablet Furosemide 20 MG 04/23/2020 12:00:00 AM E DT active Furosemide 20 MG eCW1 ([facility]) 0.3 ML Epinephrine 1 MG/ML Auto-Injector [Epipen] EpiP en 2-Hank 0.3 MG/0.3ML EpiPen 2-Hank 0.3 MG/0.3ML 04/23/2020 12:00:00 AM EDT active EpiPen 2-Hank 0.3 MG/0.3ML eCW1 ([facility]) Furosemide 20 MG Oral Tablet Furosemide 20 MG 04/23/2020 12:00:00 AM E DT active Furosemide 20 MG eCW1 ([facility]) Furosemide 20 MG Oral Tablet Furosemide 20 MG 04/23/2020 12:00:00 AM E DT active Furosemide 20 MG eCW1 ([facility]) tizanidine 4 MG Oral Tablet Tizanidine HCl 4 MG Tizanidine H Cl 4 MG 04/23/2020 12:00:00 AM EDT active Tizanidi ne HCl 4 MG eCW1 ([facility]) Omeprazole 20 MG Delayed Release Oral Capsule Omeprazole 20 MG 04/23/2020 12:00:00 AM EDT active Omeprazo le 20 MG eCW1 ([facility]) Omeprazole 20 MG Delayed Release Oral Capsule Omeprazole 20 MG 04/23/2020 12:00:00 AM EDT active Omeprazo le 20 MG eCW1 ([facility]) Omeprazole 20 MG Delayed Release Oral Capsule Omeprazole 20 MG 04/23/2020 12:00:00 AM EDT active Omeprazo le 20 MG eCW1 ([facility]) Furosemide 20 MG Oral Tablet Furosemide 20 MG 04/23/2020 12:00:00 AM E DT active Furosemide 20 MG eCW1 ([facility]) Omeprazole 20 MG Delayed Release Oral Capsule Omeprazole 20 MG 04/23/2020 12:00:00 AM EDT active Omeprazo le 20 MG eCW1 ([facility]) tizanidine 4 MG Oral Tablet Tizanidine HCl 4 MG Tizanidine H Cl 4 MG 04/23/2020 12:00:00 AM EDT active Tizanidi ne HCl 4 MG eCW1 ([facility]) Lisinopril 2.5 MG Oral Tablet Lisinopril 2.5 MG 04/16/2020 12:00:00 AM EDT 1.0 {tablet} active Lisinopril 2.5 MG eCW1 ([facility]) Lisinopril 2.5 MG Oral Tablet Lisinopril 2.5 MG 04/16/2020 12:00:00 AM EDT 1.0 {tablet} active Lisinopril 2.5 MG eCW1 ([facility]) Lisinopril 2.5 MG Oral Tablet Lisinopril 2.5 MG 04/16/2020 12:00:00 AM EDT 1.0 {tablet} active Lisinopril 2.5 MG eCW1 ([facility]) Lisinopril 2.5 MG Oral Tablet Lisinopril 2.5 MG 04/16/2020 12:00:00 AM EDT 1.0 {tablet} active Lisinopril 2.5 MG eCW1 ([facility]) Lisinopril 2.5 MG Oral Tablet Lisinopril 2.5 MG 04/16/2020 12:00:00 AM EDT 1.0 {tablet} active Lisinopril 2.5 MG eCW1 ([facility]) Lisinopril 2.5 MG Oral Tablet Lisinopril 2.5 MG 04/16/2020 12:00:00 AM EDT 1.0 {tablet} active Lisinopril 2.5 MG eCW1 ([facility]) Lisinopril 2.5 MG Oral Tablet Lisinopril 2.5 MG 04/16/2020 12:00:00 AM EDT 1.0 {tablet} active Lisinopril 2.5 MG eCW1 ([facility]) Lisinopril 2.5 MG Oral Tablet Lisinopril 2.5 MG 04/16/2020 12:00:00 AM EDT 1.0 {tablet} active Lisinopril 2.5 MG eCW1 ([facility]) Lisinopril 2.5 MG Oral Tablet Lisinopril 2.5 MG 04/16/2020 12:00:00 AM EDT 1.0 {tablet} active Lisinopril 2.5 MG eCW1 ([facility]) Lisinopril 2.5 MG Oral Tablet Lisinopril 2.5 MG 04/16/2020 12:00:00 AM EDT 1.0 {tablet} active Lisinopril 2.5 MG eCW1 ([facility]) Lisinopril 2.5 MG Oral Tablet Lisinopril 2.5 MG 04/16/2020 12:00:00 AM EDT 1.0 {tablet} active Lisinopril 2.5 MG eCW1 ([facility]) Lisinopril 2.5 MG Oral Tablet Lisinopril 2.5 MG 04/16/2020 12:00:00 AM EDT 1.0 {tablet} active Lisinopril 2.5 MG eCW1 ([facility]) Lisinopril 2.5 MG Oral Tablet Lisinopril 2.5 MG 04/16/2020 12:00:00 AM EDT 1.0 {tablet} active Lisinopril 2.5 MG eCW1 ([facility]) Lisinopril 2.5 MG Oral Tablet Lisinopril 2.5 MG 04/16/2020 12:00:00 AM EDT 1.0 {tablet} active Lisinopril 2.5 MG eCW1 ([facility]) Lisinopril 2.5 MG Oral Tablet Lisinopril 2.5 MG 04/16/2020 12:00:00 AM EDT 1.0 {tablet} active Lisinopril 2.5 MG eCW1 ([facility]) Lisinopril 2.5 MG Oral Tablet Lisinopril 2.5 MG 04/16/2020 12:00:00 AM EDT 1.0 {tablet} active Lisinopril 2.5 MG eCW1 ([facility]) Lisinopril 2.5 MG Oral Tablet Lisinopril 2.5 MG 04/16/2020 12:00:00 AM EDT 1.0 {tablet} active Lisinopril 2.5 MG eCW1 ([facility]) Lisinopril 2.5 MG Oral Tablet Lisinopril 2.5 MG 04/16/2020 12:00:00 AM EDT 1.0 {tablet} active Lisinopril 2.5 MG eCW1 ([facility]) Lisinopril 2.5 MG Oral Tablet Lisinopril 2.5 MG 04/16/2020 12:00:00 AM EDT 1.0 {tablet} active Lisinopril 2.5 MG eCW1 ([facility]) Acetaminophen 325 MG / Hydrocodone Alexus trate 5 MG Oral Tablet Hydrocodone- Acetaminophen 5-325 MG Hydrocodone-Acetaminophen 5-325 MG 02/26/2020 12:00:00 AM EDT active take 1 tablet eCW 1 ([facility]) Acetaminophen 325 MG / Hydrocodone Alexus trate 5 MG Oral Tablet Hydrocodone- Acetaminophen 5-325 MG Hydrocodone-Acetaminophen 5-325 MG 02/26/2020 12:00:00 AM EDT active take 1 tablet eCW 1 ([facility]) Acetaminophen 325 MG / Hydrocodone Alexus trate 5 MG Oral Tablet Hydrocodone- Acetaminophen 5-325 MG Hydrocodone-Acetaminophen 5-325 MG 02/26/2020 12:00:00 AM EDT suspended Hydrocodone-Ac etaminophen 5-325 MG eCW1 ([facility]) Acetaminophen 325 MG / Hydrocodone Alexus trate 5 MG Oral Tablet Hydrocodone- Acetaminophen 5-325 MG Hydrocodone-Acetaminophen 5-325 MG 02/26/2020 12:00:00 AM EDT suspended Hydrocodone-Ac etaminophen 5-325 MG eCW1 ([facility]) Acetaminophen 325 MG / Hydrocodone Alexus trate 5 MG Oral Tablet Hydrocodone- Acetaminophen 5-325 MG Hydrocodone-Acetaminophen 5-325 MG 02/26/2020 12:00:00 AM EDT suspended Hydrocodone-Ac etaminophen 5-325 MG eCW1 ([facility]) Acetaminophen 325 MG / Hydrocodone Alexus trate 5 MG Oral Tablet Hydrocodone- Acetaminophen 5-325 MG Hydrocodone-Acetaminophen 5-325 MG 02/26/2020 12:00:00 AM EDT suspended take 1 tablet eCW1 ([facility]) Acetaminophen 325 MG / Hydrocodone Alexus trate 5 MG Oral Tablet Hydrocodone- Acetaminophen 5-325 MG Hydrocodone-Acetaminophen 5-325 MG 02/26/2020 12:00:00 AM EDT suspended Hydrocodone-Ac etaminophen 5-325 MG eCW1 ([facility]) Acetaminophen 325 MG / Hydrocodone Alexus trate 5 MG Oral Tablet Hydrocodone- Acetaminophen 5-325 MG Hydrocodone-Acetaminophen 5-325 MG 02/26/2020 12:00:00 AM EDT active take 1 tablet eCW 1 ([facility]) Acetaminophen 325 MG / Hydrocodone Alexus trate 5 MG Oral Tablet Hydrocodone- Acetaminophen 5-325 MG Hydrocodone-Acetaminophen 5-325 MG 01/24/2020 12:00:00 AM EDT active take 1 tablet eCW 1 ([facility]) Acetaminophen 325 MG / Hydrocodone Alexus trate 5 MG Oral Tablet Hydrocodone- Acetaminophen 5-325 MG Hydrocodone-Acetaminophen 5-325 MG 01/24/2020 12:00:00 AM EDT active take 1 tablet eCW 1 ([facility]) Omeprazole 20 MG Delayed Release Oral Capsule Omeprazole 01/21/2020 12:00:00 AM EDT ORAL active MEDENT ([facility], ) Fluticasone Propionate Fluticasone Propionate 01/21/2020 12:00:00 AM E DT active MEDENT ([facility], ) cetirizine hydrochloride 10 MG Oral Tablet Cetirizine HCl 10 MG Cetirizine HCl 10 MG 01/07/2020 12:00:00 AM EDT active 1 tablet eCW1 ([facility]) cetirizine hydrochloride 10 MG Oral Tablet Cetirizine HCl 10 MG Cetirizine HCl 10 MG 01/07/2020 12:00:00 AM EDT 1.0 {tablet} activ e Cetirizine HCl 10 MG eCW1 ([facility]) cetirizine hydrochloride 10 MG Oral Tablet Cetirizine HCl 10 MG Cetirizine HCl 10 MG 01/07/2020 12:00:00 AM EDT 1.0 {tablet} activ e Cetirizine HCl 10 MG eCW1 ([facility]) cetirizine hydrochloride 10 MG Oral Tablet Cetirizine HCl 10 MG Cetirizine HCl 10 MG 01/07/2020 12:00:00 AM EDT 1.0 {tablet} activ e Cetirizine HCl 10 MG eCW1 ([facility]) cetirizine hydrochloride 10 MG Oral Tablet Cetirizine HCl 10 MG Cetirizine HCl 10 MG 01/07/2020 12:00:00 AM EDT 1.0 {tablet} activ e Cetirizine HCl 10 MG eCW1 ([facility]) cetirizine hydrochloride 10 MG Oral Tablet Cetirizine HCl 10 MG Cetirizine HCl 10 MG 01/07/2020 12:00:00 AM EDT 1.0 {tablet} activ e Cetirizine HCl 10 MG eCW1 ([facility]) cetirizine hydrochloride 10 MG Oral Tablet Cetirizine HCl 10 MG Cetirizine HCl 10 MG 01/07/2020 12:00:00 AM EDT 1.0 {tablet} activ e Cetirizine HCl 10 MG eCW1 ([facility]) cetirizine hydrochloride 10 MG Oral Tablet Cetirizine HCl 10 MG Cetirizine HCl 10 MG 01/07/2020 12:00:00 AM EDT 1.0 {tablet} activ e Cetirizine HCl 10 MG eCW1 ([facility]) cetirizine hydrochloride 10 MG Oral Tablet Cetirizine HCl 10 MG Cetirizine HCl 10 MG 01/07/2020 12:00:00 AM EDT 1.0 {tablet} activ e Cetirizine HCl 10 MG eCW1 ([facility]) cetirizine hydrochloride 10 MG Oral Tablet Cetirizine HCl 10 MG Cetirizine HCl 10 MG 01/07/2020 12:00:00 AM EDT 1.0 {tablet} activ e Cetirizine HCl 10 MG eCW1 ([facility]) cetirizine hydrochloride 10 MG Oral Tablet Cetirizine HCl 10 MG Cetirizine HCl 10 MG 01/07/2020 12:00:00 AM EDT 1.0 {tablet} activ e Cetirizine HCl 10 MG eCW1 ([facility]) cetirizine hydrochloride 10 MG Oral Tablet Cetirizine HCl 10 MG Cetirizine HCl 10 MG 01/07/2020 12:00:00 AM EDT 1.0 {tablet} activ e Cetirizine HCl 10 MG eCW1 ([facility]) cetirizine hydrochloride 10 MG Oral Tablet Cetirizine HCl 10 MG Cetirizine HCl 10 MG 01/07/2020 12:00:00 AM EDT active 1 tablet eCW1 ([facility]) cetirizine hydrochloride 10 MG Oral Tablet Cetirizine HCl 10 MG Cetirizine HCl 10 MG 01/07/2020 12:00:00 AM EDT 1.0 {tablet} activ e Cetirizine HCl 10 MG eCW1 ([facility]) cetirizine hydrochloride 10 MG Oral Tablet Cetirizine HCl 10 MG Cetirizine HCl 10 MG 01/07/2020 12:00:00 AM EDT 1.0 {tablet} activ e Cetirizine HCl 10 MG eCW1 ([facility]) cetirizine hydrochloride 10 MG Oral Tablet Cetirizine HCl 10 MG Cetirizine HCl 10 MG 01/07/2020 12:00:00 AM EDT 1.0 {tablet} activ e Cetirizine HCl 10 MG eCW1 ([facility]) cetirizine hydrochloride 10 MG Oral Tablet Cetirizine HCl 10 MG Cetirizine HCl 10 MG 01/07/2020 12:00:00 AM EDT 1.0 {tablet} activ e Cetirizine HCl 10 MG eCW1 ([facility]) cetirizine hydrochloride 10 MG Oral Tablet Cetirizine HCl 10 MG Cetirizine HCl 10 MG 01/07/2020 12:00:00 AM EDT 1.0 {tablet} activ e Cetirizine HCl 10 MG eCW1 ([facility]) cetirizine hydrochloride 10 MG Oral Tablet Cetirizine HCl 10 MG Cetirizine HCl 10 MG 01/07/2020 12:00:00 AM EDT active 1 tablet eCW1 ([facility]) cetirizine hydrochloride 10 MG Oral Tablet Cetirizine HCl 10 MG Cetirizine HCl 10 MG 01/07/2020 12:00:00 AM EDT 1.0 {tablet} activ e Cetirizine HCl 10 MG eCW1 ([facility]) cetirizine hydrochloride 10 MG Oral Tablet Cetirizine HCl 10 MG Cetirizine HCl 10 MG 01/07/2020 12:00:00 AM EDT active 1 tablet eCW1 ([facility]) cetirizine hydrochloride 10 MG Oral Tablet Cetirizine HCl 10 MG Cetirizine HCl 10 MG 01/07/2020 12:00:00 AM EDT 1.0 {tablet} activ e Cetirizine HCl 10 MG eCW1 ([facility]) cetirizine hydrochloride 10 MG Oral Tablet Cetirizine HCl 10 MG Cetirizine HCl 10 MG 01/07/2020 12:00:00 AM EDT active 1 tablet eCW1 ([facility]) cetirizine hydrochloride 10 MG Oral Tablet Cetirizine HCl 10 MG Cetirizine HCl 10 MG 01/07/2020 12:00:00 AM EDT 1.0 {tablet} activ e Cetirizine HCl 10 MG eCW1 ([facility]) cetirizine hydrochloride 10 MG Oral Tablet Cetirizine HCl 10 MG Cetirizine HCl 10 MG 01/07/2020 12:00:00 AM EDT 1.0 {tablet} activ e Cetirizine HCl 10 MG eCW1 ([facility]) cetirizine hydrochloride 10 MG Oral Tablet Cetirizine HCl 10 MG Cetirizine HCl 10 MG 01/07/2020 12:00:00 AM EDT 1.0 {tablet} activ e Cetirizine HCl 10 MG eCW1 ([facility]) Nystatin 100 UNT/MG Topical Powder Nystatin 730096 UNI T/GM Nystatin 295363 UNIT/GM 01/03/2020 12:00:00 AM EST 1.0 {application} active Nystatin 014499 UNIT/GM eCW1 ([facility]) Nystatin 100 UNT/MG Topical Powder Nystatin 576906 UNI T/GM Nystatin 640953 UNIT/GM 01/03/2020 12:00:00 AM EST active 1 application eCW1 ([facility]) Nystatin 100 UNT/MG Topical Powder Nystatin 376516 UNI T/GM Nystatin 270172 UNIT/GM 01/03/2020 12:00:00 AM EST active 1 application eCW1 ([facility]) Nystatin 100 UNT/MG Topical Powder Nystatin 900580 UNI T/GM Nystatin 182166 UNIT/GM 01/03/2020 12:00:00 AM EST 1.0 {application} active Nystatin 362271 UNIT/GM eCW1 ([facility]) Nystatin 100 UNT/MG Topical Powder Nystatin 750464 UNI T/GM Nystatin 889216 UNIT/GM 01/03/2020 12:00:00 AM EST 1.0 {application} active Nystatin 352169 UNIT/GM eCW1 ([facility]) Nystatin 100 UNT/MG Topical Powder Nystatin 096233 UNI T/GM Nystatin 789136 UNIT/GM 01/03/2020 12:00:00 AM EST 1.0 {application} active Nystatin 349627 UNIT/GM eCW1 ([facility]) Nystatin 100 UNT/MG Topical Powder Nystatin 359449 UNI T/GM Nystatin 049442 UNIT/GM 01/03/2020 12:00:00 AM EST 1.0 {application} active Nystatin 739968 UNIT/GM eCW1 ([facility]) Nystatin 100 UNT/MG Topical Powder Nystatin 541575 UNI T/GM Nystatin 195639 UNIT/GM 01/03/2020 12:00:00 AM EST 1.0 {application} active Nystatin 543898 UNIT/GM eCW1 ([facility]) Nystatin 100 UNT/MG Topical Powder Nystatin 979645 UNI T/GM Nystatin 592905 UNIT/GM 01/03/2020 12:00:00 AM EST 1.0 {application} active Nystatin 395815 UNIT/GM eCW1 ([facility]) Nystatin 100 UNT/MG Topical Powder Nystatin 831191 UNI T/GM Nystatin 707320 UNIT/GM 01/03/2020 12:00:00 AM EST 1.0 {application} active Nystatin 534151 UNIT/GM eCW1 ([facility]) Nystatin 100 UNT/MG Topical Powder Nystatin 953607 UNI T/GM Nystatin 085589 UNIT/GM 01/03/2020 12:00:00 AM EST 1.0 {application} active Nystatin 782720 UNIT/GM eCW1 ([facility]) Nystatin 100 UNT/MG Topical Powder Nystatin 808255 UNI T/GM Nystatin 660478 UNIT/GM 01/03/2020 12:00:00 AM EST 1.0 {application} active Nystatin 719868 UNIT/GM eCW1 ([facility]) Nystatin 100 UNT/MG Topical Powder Nystatin 171068 UNI T/GM Nystatin 542709 UNIT/GM 01/03/2020 12:00:00 AM EST active 1 application eCW1 ([facility]) Nystatin 100 UNT/MG Topical Powder Nystatin 231524 UNI T/GM Nystatin 149255 UNIT/GM 01/03/2020 12:00:00 AM EST 1.0 {application} active Nystatin 158151 UNIT/GM eCW1 ([facility]) Nystatin 100 UNT/MG Topical Powder Nystatin 042115 UNI T/GM Nystatin 943952 UNIT/GM 01/03/2020 12:00:00 AM EST 1.0 {application} active Nystatin 772377 UNIT/GM eCW1 ([facility]) Nystatin 100 UNT/MG Topical Powder Nystatin 518302 UNI T/GM Nystatin 464968 UNIT/GM 01/03/2020 12:00:00 AM EST 1.0 {application} active Nystatin 837068 UNIT/GM eCW1 ([facility]) Nystatin 100 UNT/MG Topical Powder Nystatin 222813 UNI T/GM Nystatin 159157 UNIT/GM 01/03/2020 12:00:00 AM EST 1.0 {application} active Nystatin 086589 UNIT/GM eCW1 ([facility]) Nystatin 100 UNT/MG Topical Powder Nystatin 081173 UNI T/GM Nystatin 366430 UNIT/GM 01/03/2020 12:00:00 AM EST 1.0 {application} active Nystatin 081298 UNIT/GM eCW1 ([facility]) Nystatin 100 UNT/MG Topical Powder Nystatin 512521 UNI T/GM Nystatin 428597 UNIT/GM 01/03/2020 12:00:00 AM EST 1.0 {application} active Nystatin 266886 UNIT/GM eCW1 ([facility]) Nystatin 100 UNT/MG Topical Powder Nystatin 465485 UNI T/GM Nystatin 946786 UNIT/GM 01/03/2020 12:00:00 AM EST 1.0 {application} active Nystatin 101404 UNIT/GM eCW1 ([facility]) Nystatin 100 UNT/MG Topical Powder Nystatin 530920 UNI T/GM Nystatin 624904 UNIT/GM 01/03/2020 12:00:00 AM EST 1.0 {application} active Nystatin 584771 UNIT/GM eCW1 ([facility]) Nystatin 100 UNT/MG Topical Powder Nystatin 801008 UNI T/GM Nystatin 932749 UNIT/GM 01/03/2020 12:00:00 AM EST 1.0 {application} active Nystatin 867048 UNIT/GM eCW1 ([facility]) Nystatin 100 UNT/MG Topical Powder Nystatin 221916 UNI T/GM Nystatin 702797 UNIT/GM 01/03/2020 12:00:00 AM EST active 1 application eCW1 ([facility]) Nystatin 100 UNT/MG Topical Powder Nystatin 007853 UNI T/GM Nystatin 207306 UNIT/GM 01/03/2020 12:00:00 AM EST 1.0 {application} active Nystatin 984712 UNIT/GM eCW1 ([facility]) Nystatin 100 UNT/MG Topical Powder Nystatin 242030 UNI T/GM Nystatin 078820 UNIT/GM 01/03/2020 12:00:00 AM EST 1.0 {application} active Nystatin 094603 UNIT/GM eCW1 ([facility]) Nystatin 100 UNT/MG Topical Powder Nystatin 118686 UNI T/GM Nystatin 641133 UNIT/GM 01/03/2020 12:00:00 AM EST active 1 application eCW1 ([facility]) Nystatin 100 UNT/MG Topical Powder Nystatin 305976 UNI T/GM Nystatin 777687 UNIT/GM 01/03/2020 12:00:00 AM EST active 1 application eCW1 ([facility]) Acetaminophen 325 MG / Hydrocodone Alexus trate 5 MG Oral Tablet Hydrocodone- Acetaminophen 5-325 MG Hydrocodone-Acetaminophen 5-325 MG 12/03/2019 12:00:00 AM EST active take 1 tablet eCW 1 ([facility]) Acetaminophen 325 MG / Hydrocodone Alexus trate 5 MG Oral Tablet Hydrocodone- Acetaminophen 5-325 MG Hydrocodone-Acetaminophen 5-325 MG 12/03/2019 12:00:00 AM EST active take 1 tablet eCW 1 ([facility]) Acetaminophen 325 MG / Hydrocodone Alexus trate 5 MG Oral Tablet Hydrocodone- Acetaminophen 5-325 MG Hydrocodone-Acetaminophen 5-325 MG 12/03/2019 12:00:00 AM EST active take 1 tablet eCW 1 ([facility]) Acetaminophen 325 MG / Hydrocodone Alexus trate 5 MG Oral Tablet Hydrocodone- Acetaminophen 5-325 MG Hydrocodone-Acetaminophen 5-325 MG 12/03/2019 12:00:00 AM EST active take 1 tablet eCW 1 ([facility]) 30 ACTUAT fluticasone furoate 0.2 MG/ACT UAT / vilanterol 0.025 MG/ACTUAT Dry Powder Inhaler [Breo] Breo Ellipta 11/22/2019 12:00:00 AM EST RESPIRATORY active MEDENT ([facility], ) Prednisone 10 MG Oral Tablet Prednisone 11/01/2019 12:00:00 AM EST ORAL completed MEDENT ([facility], ) Furosemide 20 MG Oral Tablet Furosemide 11/01/2019 12:00:00 AM EST ORAL active MEDENT ([facility], ) 60 ACTUAT Budesonide 0.16 MG/ACTUAT / fo rmoterol fumarate 0.0045 MG/ACTUAT Metered Dose Inhaler [Symbicort] Symbicort 11/01/2019 12:00:00 AM EST RESPIRATORY completed MEDENT ( [facility], ) Albuterol Sulfate HFA 108 (90 Base) MCG/ACT Albuterol Sulfate HFA 108 (90 Base) MCG/ACT 10/22/2019 12:00:00 AM EST 2.0 {puffs} activ e Albuterol Sulfate HFA 108 (90 Base) MCG/ACT eCW1 ([facility]) Albuterol Sulfate HFA 108 (90 Base) MCG/ACT Albuterol Sulfate HFA 108 (90 Base) MCG/ACT 10/22/2019 12:00:00 AM EST 2.0 {puffs} activ e Albuterol Sulfate HFA 108 (90 Base) MCG/ACT eCW1 ([facility]) Albuterol Sulfate HFA 108 (90 Base) MCG/ACT Albuterol Sulfate HFA 108 (90 Base) MCG/ACT 10/22/2019 12:00:00 AM EST 2.0 {puffs} activ e Albuterol Sulfate HFA 108 (90 Base) MCG/ACT eCW1 ([facility]) Albuterol Sulfate HFA 108 (90 Base) MCG/ACT Albuterol Sulfate HFA 108 (90 Base) MCG/ACT 10/22/2019 12:00:00 AM EST active 2 puffs as needed eCW1 ([facility]) Albuterol Sulfate HFA 108 (90 Base) MCG/ACT Albuterol Sulfate HFA 108 (90 Base) MCG/ACT 10/22/2019 12:00:00 AM EST 2.0 {puffs_as_needed} active Albuterol Sulfate HFA 108 (90 Base) MCG/ACT eCW1 ([facility]) Albuterol Sulfate HFA 108 (90 Base) MCG/ACT Albuterol Sulfate HFA 108 (90 Base) MCG/ACT 10/22/2019 12:00:00 AM EST active 2 puffs as needed eCW1 ([facility]) Albuterol Sulfate HFA 108 (90 Base) MCG/ACT Albuterol Sulfate HFA 108 (90 Base) MCG/ACT 10/22/2019 12:00:00 AM EST 2.0 {puffs_as_needed} active Albuterol Sulfate HFA 108 (90 Base) MCG/ACT eCW1 ([facility]) Albuterol Sulfate HFA 108 (90 Base) MCG/ACT Albuterol Sulfate HFA 108 (90 Base) MCG/ACT 10/22/2019 12:00:00 AM EST 2.0 {puffs} activ e Albuterol Sulfate HFA 108 (90 Base) MCG/ACT eCW1 ([facility]) Albuterol Sulfate HFA 108 (90 Base) MCG/ACT Albuterol Sulfate HFA 108 (90 Base) MCG/ACT 10/22/2019 12:00:00 AM EST active 2 puffs as needed eCW1 ([facility]) Albuterol Sulfate HFA 108 (90 Base) MCG/ACT Albuterol Sulfate HFA 108 (90 Base) MCG/ACT 10/22/2019 12:00:00 AM EST active 2 puffs as needed eCW1 ([facility]) Albuterol Sulfate HFA 108 (90 Base) MCG/ACT Albuterol Sulfate HFA 108 (90 Base) MCG/ACT 10/22/2019 12:00:00 AM EST 2.0 {puffs_as_needed} active Albuterol Sulfate HFA 108 (90 Base) MCG/ACT eCW1 ([facility]) Albuterol Sulfate HFA 108 (90 Base) MCG/ACT Albuterol Sulfate HFA 108 (90 Base) MCG/ACT 10/22/2019 12:00:00 AM EST active 2 puffs as needed eCW1 ([facility]) Hydrocodone-Acetaminophen 5-325 MG UNK 10/22/2019 12:00:00 AM EST active take 1 tablet eCW1 ([facility]) Albuterol Sulfate HFA 108 (90 Base) MCG/ACT Albuterol Sulfate HFA 108 (90 Base) MCG/ACT 10/22/2019 12:00:00 AM EST 2.0 {puffs} activ e Albuterol Sulfate HFA 108 (90 Base) MCG/ACT eCW1 ([facility]) Acetaminophen 325 MG / Hydrocodone Alexus trate 5 MG Oral Tablet Hydrocodone- Acetaminophen 5-325 MG Hydrocodone-Acetaminophen 5-325 MG 10/22/2019 12:00:00 AM EST active take 1 tablet eCW 1 ([facility]) Albuterol Sulfate HFA 108 (90 Base) MCG/ACT Albuterol Sulfate HFA 108 (90 Base) MCG/ACT 10/22/2019 12:00:00 AM EST 2.0 {puffs} activ e Albuterol Sulfate HFA 108 (90 Base) MCG/ACT eCW1 ([facility]) Albuterol Sulfate HFA 108 (90 Base) MCG/ACT Albuterol Sulfate HFA 108 (90 Base) MCG/ACT 10/22/2019 12:00:00 AM EST 2.0 {puffs} activ e Albuterol Sulfate HFA 108 (90 Base) MCG/ACT eCW1 ([facility]) Albuterol Sulfate HFA 108 (90 Base) MCG/ACT Albuterol Sulfate HFA 108 (90 Base) MCG/ACT 10/22/2019 12:00:00 AM EST 2.0 {puffs} activ e Albuterol Sulfate HFA 108 (90 Base) MCG/ACT eCW1 ([facility]) Albuterol Sulfate HFA 108 (90 Base) MCG/ACT Albuterol Sulfate HFA 108 (90 Base) MCG/ACT 10/22/2019 12:00:00 AM EST active 2 puffs as needed eCW1 ([facility]) Albuterol Sulfate HFA 108 (90 Base) MCG/ACT Albuterol Sulfate HFA 108 (90 Base) MCG/ACT 10/22/2019 12:00:00 AM EST 2.0 {puffs} activ e Albuterol Sulfate HFA 108 (90 Base) MCG/ACT eCW1 ([facility]) Albuterol Sulfate HFA 108 (90 Base) MCG/ACT Albuterol Sulfate HFA 108 (90 Base) MCG/ACT 10/22/2019 12:00:00 AM EST active 2 puffs as needed eCW1 ([facility]) Albuterol Sulfate HFA 108 (90 Base) MCG/ACT Albuterol Sulfate HFA 108 (90 Base) MCG/ACT 10/22/2019 12:00:00 AM EST 2.0 {puffs} activ e Albuterol Sulfate HFA 108 (90 Base) MCG/ACT eCW1 ([facility]) Albuterol Sulfate HFA 108 (90 Base) MCG/ACT Albuterol Sulfate HFA 108 (90 Base) MCG/ACT 10/22/2019 12:00:00 AM EST active 2 puffs as needed eCW1 ([facility]) Albuterol Sulfate HFA 108 (90 Base) MCG/ACT Albuterol Sulfate HFA 108 (90 Base) MCG/ACT 10/22/2019 12:00:00 AM EST 2.0 {puffs} activ e Albuterol Sulfate HFA 108 (90 Base) MCG/ACT eCW1 ([facility]) Albuterol Sulfate HFA 108 (90 Base) MCG/ACT Albuterol Sulfate HFA 108 (90 Base) MCG/ACT 10/22/2019 12:00:00 AM EST 2.0 {puffs_as_needed} active Albuterol Sulfate HFA 108 (90 Base) MCG/ACT eCW1 ([facility]) Albuterol Sulfate HFA 108 (90 Base) MCG/ACT Albuterol Sulfate HFA 108 (90 Base) MCG/ACT 10/22/2019 12:00:00 AM EST 2.0 {puffs} activ e Albuterol Sulfate HFA 108 (90 Base) MCG/ACT eCW1 ([facility]) Albuterol Sulfate HFA 108 (90 Base) MCG/ACT UNK 10/22/2019 12: 00:00 AM EST active 2 puffs as needed eC W1 ([facility]) Albuterol Sulfate HFA 108 (90 Base) MCG/ACT Albuterol Sulfate HFA 108 (90 Base) MCG/ACT 10/22/2019 12:00:00 AM EST 2.0 {puffs} activ e Albuterol Sulfate HFA 108 (90 Base) MCG/ACT eCW1 ([facility]) Albuterol Sulfate HFA 108 (90 Base) MCG/ACT Albuterol Sulfate HFA 108 (90 Base) MCG/ACT 10/22/2019 12:00:00 AM EST 2.0 {puffs} activ e Albuterol Sulfate HFA 108 (90 Base) MCG/ACT eCW1 ([facility]) Albuterol Sulfate HFA 108 (90 Base) MCG/ACT Albuterol Sulfate HFA 108 (90 Base) MCG/ACT 10/22/2019 12:00:00 AM EST 2.0 {puffs} activ e Albuterol Sulfate HFA 108 (90 Base) MCG/ACT eCW1 ([facility]) Albuterol Sulfate HFA 108 (90 Base) MCG/ACT Albuterol Sulfate HFA 108 (90 Base) MCG/ACT 10/22/2019 12:00:00 AM EST 2.0 {puffs} activ e Albuterol Sulfate HFA 108 (90 Base) MCG/ACT eCW1 ([facility]) Albuterol Sulfate HFA 108 (90 Base) MCG/ACT Albuterol Sulfate HFA 108 (90 Base) MCG/ACT 10/22/2019 12:00:00 AM EST active 2 puffs as needed eCW1 ([facility]) Albuterol Sulfate HFA 108 (90 Base) MCG/ACT Albuterol Sulfate HFA 108 (90 Base) MCG/ACT 10/22/2019 12:00:00 AM EST 2.0 {puffs} activ e Albuterol Sulfate HFA 108 (90 Base) MCG/ACT eCW1 ([facility]) Acetaminophen 325 MG / Hydrocodone Alexus trate 5 MG Oral Tablet Hydrocodone- Acetaminophen 5-325 MG Hydrocodone-Acetaminophen 5-325 MG 09/21/2019 12:00:00 AM EST active take 1 tablet eCW 1 ([facility]) Acetaminophen 325 MG / Hydrocodone Alexus trate 5 MG Oral Tablet Hydrocodone- Acetaminophen 5-325 MG Hydrocodone-Acetaminophen 5-325 MG 09/21/2019 12:00:00 AM EST active take 1 tablet eCW 1 ([facility]) Acetaminophen 325 MG / Hydrocodone Alexus trate 5 MG Oral Tablet Hydrocodone- Acetaminophen 5-325 MG Hydrocodone-Acetaminophen 5-325 MG 09/21/2019 12:00:00 AM EST active take 1 tablet eCW 1 ([facility]) Acetaminophen 325 MG / Hydrocodone Alexus trate 5 MG Oral Tablet Hydrocodone- Acetaminophen 5-325 MG Hydrocodone-Acetaminophen 5-325 MG 09/21/2019 12:00:00 AM EST active take 1 tablet eCW 1 ([facility]) Insurance Providers Payer name Policy type / Coverage type Policy ID Covered alliance party ID Covered alliance party's relationship to chahal Policy [place] Plan Information [place] [id number] SP [id number] HUMANA GOLD [id number] SP [id number] [employer]NA GOLD PLUS -O/P [id number] 18 [id number] MEDICARE [id number] SP [id number] HUMANA GOLD PLUS -CLINIC [id number] 18 [id number] [employer]NA MEDICARE O [id number] 18 [id number] [employer]NA GOLD PLUS -PHYSICIAN [id number] [employer] GOLD [id number] SP [id number] O [id number] S [id number] [employer] GOLD O [id number] S [id number] [employer] PPO [id number] SP [id number] [employer] PPO [id number] SP [id number] Problems, Conditions, and Diagnoses Code Display Name Description Problem Type Effective Dates Data Source(s) 48049864 Allergic rhinitis Allergic rhinitis Problem 09/04/2020 12:00:00 AM EST MEDENT ([facility]) [id number] Patient post percutaneous transluminal c oronary angioplasty Patient post percutaneous transluminal coronary angioplasty Problem 12:00:00 AM EST MEDENT ([facility]) [id number] Essential hypertension Essential hypertension Problem 09/04/2020 12:00:00 AM EST MEDENT ([facility]) [id number] Edema Edema Problem 09/04/2020 12:00:00 AM ES T MEDENT ([facility]) [id number] Low back pain Low back pain Problem 09/04/2020 12:00:00 AM EST MEDENT ([facility]) [id number] Recurrent major depressive episodes Recu rrent major depressive episodes Problem 09/04/2020 12:00:00 AM EST MEDENT ([facility]) 60234727 Hyperlipidemia Hyperlipidemia Problem 09/04/2020 12:00: 00 AM EST MEDENT ([facility]) 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 Problem 09/04/2020 12:00:00 AM EST MEDENT ([facility]) M81.8 [id number] Secondary osteoporosis Problem 08/07/2020 12 :00:00 AM EDT eCW1 ([facility]) [id number] Chronic diastolic heart failure Chronic diastoli c heart failure Problem 05/15/2020 12:00:00 AM EDT [facility] ([facility]) [id number] Mixed hyperlipidemia Mixed hyperlipidemia Problem 05/15/2020 12:00:00 AM EDT MEDENT ([facility]) [id number] 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 Coronary arteriosclerosis in patient wit h history of previous myocardial infarction Problem 05/15/2020 12:00:00 AM EDT ME DENT ([facility]) [id number] Dietary management surveillance Dietary manageme nt surveillance Problem 05/15/2020 12:00:00 AM EDT MED[facility] ([facility]) 106186430 Obesity Obesity Problem 05/15/2020 12:00:00 AM ED T MED[facility] ([facility]) 36808371 Hyperlipidemia Hyperlipidemia Problem 05/15/2020 12:00: 00 AM EDT MED[facility] ([facility]) 91084565 Chronic right-sided heart failure Chronic right- sided heart failure Problem 05/15/2020 12:00:00 AM EDT [facility] ([facility] 57453993 Essential hypertension Essential hypertension Problem 05/15/2020 12:00:00 AM EDT MED[facility] ([facility]) [id number] Patient post percutaneous transluminal c oronary angioplasty Patient post percutaneous transluminal coronary angioplasty Problem 12:00:00 AM EDT MED[facility] ([facility]) 7136876 Old myocardial infarction Old myocardial infarction Pr oblem 05/15/2020 12:00:00 AM EDT MED[facility] ([facility]) I27.81 [id number] Cor pulmonale Problem 05/05/2020 12:00:00 AM EDT eCW1 ([facility]) Z91.030 [id number] Bee sting allergy Problem 04/09/2020 12:00:0 0 AM EDT eCW1 ([facility]) M48.061 [id number] Lumbar spinal stenosis Problem 03/26/2020 12 :00:00 AM EDT eCW1 ([facility]) M48.061 [id number] Lumbar spinal stenosis Problem 03/26/2020 12 :00:00 AM EDT eCW1 ([facility]) M48.062 [id number] Spinal stenosis of lumbar region with neurogenic claudication Problem 02/20/2020 12:00:00 AM EDT eCW1 ([facility]) M48.062 [id number] Spinal stenosis of lumbar region with neurogenic claudication Problem 02/20/2020 12:00:00 AM EDT eCW1 ([facility]) J30.2 [id number] Seasonal allergies Problem 01/07/2020 12:00: 00 AM EDT eCW1 ([facility]) J30.2 [id number] Seasonal allergies Problem 01/07/2020 12:00: 00 AM EDT eCW1 ([facility]) M79.18 [id number] Myalgia, other site Problem 10/26/2019 12:00 :00 AM EST eCW1 ([facility]) M51.16 [id number] Intervertebral disc disorders with radiculopathy, lumbar region Problem 10/26/2019 12:00:00 AM EST eCW1 ([facility] M54.40 [id number] Lumbago with sciatica, unspecified side P roblem 10/26/2019 12:00:00 AM EST eCW1 ([facility]) M51.16 [id number] Intervertebral disc disorders with radiculopathy, lumbar region Problem 10/26/2019 12:00:00 AM EST eCW1 ([facility]) M54.40 [id number] Lumbago with sciatica, unspecified side P roblem 10/26/2019 12:00:00 AM EST eCW1 ([facility]) M79.18 [id number] Myalgia, other site Problem 10/26/2019 12:00 :00 AM EST [facility] ([facility]) D509 Iron deficiency anemia, unspecified Iron deficie ncy anemia, unspecified Diagnosis 10/17/2020 01:13:00 PM [facility] 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 C hemical 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 Diagnosis 10/06/2020 01:33:00 PM [facility] Z23 Encounter for immunization Encounter for immunization Diagnosis 09/04/2020 03:10:00 PM [facility] [id number] Other specified disorders of bone densit y and structure, unspecified site Other specified disorders of bone density and structure, unspecified site Diagnosis 09/04/2020 03:10:00 PM [facility] K219 Gastro-esophageal reflux disease without esophagitis Gastro-esophageal reflux disease without esophagitis Diagnosis 09/04/2020 03:10:00 PM [facility] E785 Hyperlipidemia, unspecified Hyperlipidemia, unspecifie d Diagnosis 09/04/2020 03:10:00 PM [facility] F339 Major depressive disorder, recurrent, un specified Major depressive disorder, recurrent, unspecified Diagnosis 09/04/2020 03:10:00 PM [facility] M545 Low back pain Low back pain Diagnosis 09/04/2020 03:10:00 PM [facility] R600 Localized edema Localized edema Diagnosis 09/04/2020 03:1 0:00 PM [facility] E119 Type 2 diabetes mellitus without complic ations Type 2 diabetes mellitus without complications Diagnosis 09/04/2020 03:10:00 PM [facility] I10 Essential (primary) hypertension Essential (primary) h ypertension Diagnosis 09/04/2020 03:10:00 PM [facility] Z955 Presence of coronary angioplasty implant and graft Presence of coronary angioplasty implant and graft Diagnosis 09/04/2020 03:10:00 PM [facility] J309 Allergic rhinitis, unspecified Allergic rhinitis, unsp ecified Diagnosis 09/04/2020 03:10:00 PM [facility] Surgeries/Procedures Procedure Description Date Indications Data Source(s) Brief Emotional/Behav Assessment W/ Scoring Doc Per Standard Inst 09/04/2020 12:00:00 AM EST [facility] ([facility]) Admin Patient Focused Health Risk Assessment Instrument 09/04/2020 12:00:00 AM EST [facility] ([facility]) Spirometry 08/27/2020 12:00:00 AM EDT M EDEARNEST ([facility], ) MYOCARDIAL SPECT MULTIPLE STUDIES 06/03/2020 12:00:00 AM EDT [facility] ([facility]) CV STRS TST XERS&/OR RX CONT ECG PHYS SI&R 06/03/2020 12:00:00 AM EDT [facility] ([facility]) ECG ROUTINE ECG W/LEAST 12 LDS W/I&R 05/15/2020 12:00: 00 AM EDT [facility] ([facility]) Arterial Pressure Waveform Analysis For Assessment Of Centra l Art 05/15/2020 12:00:00 AM EDT [facility] ([facility]) Lumbar/Sacral w/ Imaging 03/26/2020 12:00:00 AM EDT eCW1 ([facility]) ESTABILISHED PATIENT [facility] CHARGE 020 12:00:00 AM EDT eCW1 ([facility]) Bronchospasm Evaluation 03/12/2020 12:00:00 AM EDT [facility] ([facility], ) Maximum Breathing Capacity, Maximal Voluntary Ventilation 03/12/2020 12:00:00 AM EDT [facility] ([facility] ) Plethysmography Determination Lung Volumes & Per Airway Resi st 03/12/2020 12:00:00 AM EDT [facility] ([facility], ) DIFFUSING CAPACITY 03/12/2020 12:00:00 AM EDT [facility] ([facility], ) PHYSICIAN TELEPHONE EVALUATION 11-20 MIN 03/11/2020 12 :00:00 AM EDT eCW1 ([facility]) RADXPS IN END [id number] [id number] 01/01/2020 12:00:00 AM ES T eCW1 ([facility]) Office Visit, Est Pt., Level 2 FC 12/03/2019 12:00:00 AM EST eCW1 ([facility]) Office Visit, Est Pt., Level 3 PC 12/03/2019 12:00:00 AM EST eCW1 ([facility]) Aerosol Or Vapor Inhalations 11/26/2019 12:00:00 AM ES T [facility] ([facility], ) Spirometry 11/01/2019 12:00:00 AM EST M [facility]ENT ([facility], ) Aerosol Or Vapor Inhalations 11/01/2019 12:00:00 AM ES T [facility] ([facility], ) Eligible professional attests to gaetano dinero in the medical record they obtained, updated, or reviewed the patient's current medications 10/19/2019 12:00:00 AM EST [facility] Pain assessment documented as positive u sing a standardized tool and a follow-up plan is documented 10/19/2019 12:00:00 AM EST e CW1 ([facility]) Office Visit, Est Pt., Level 4 PC 09/21/2019 12:00:00 AM EST eCW1 ([facility]) Results ID Date Data Source [id number] 10/17/2020 01:21:00 PM EST [facility] ([facility]) Name Value Range Interpretation Code Description Data Debi rce(s) Supporting Document(s) Iron 70 ug/dL 42-135 [facility] ([facility]) FASTING 12 HOUR~.~.~<DG1.3.1>Z00.01</DG1.3.1><DG1.3.1>I10</DG1.3.1><DG1.3.1>E11.9</DG1.3.1> <DG1.3 Uibc 224 ug/dL 112-347 [facility] ([facility]) FASTING 12 HOUR~.~.~<DG1.3.1>Z00.01</DG1.3.1><DG1.3.1>I10</DG1.3.1><DG1.3.1>E11.9</DG1.3.1> <DG1.3 Tibc 294 ug/dL 250-450 [facility] ([facility]) FASTING 12 HOUR~.~.~<DG1.3.1>Z00.01</DG1.3.1><DG1.3.1>I10</DG1.3.1><DG1.3.1>E11.9</DG1.3.1> <DG1.3 Iron Sat 24 % [facility] ([facility]) FASTING 12 HOUR~.~.~<DG1.3.1>Z00.01</DG1.3.1><DG1.3.1>I10</DG1.3.1><DG1.3.1>E11.9</DG1.3.1> <DG1.3 ID Date Data Source [id number] 10/17/2020 01:21:00 PM EST [facility] ([facility]) Name Value Range Interpretation Code Description Data Debi rce(s) Supporting Document(s) Calcidiol [Mass/volume] in Serum or Plasma 27 ng/mL [facility] ([facility]) FASTING 12 HOUR~.~.~<DG1.3.1>Z00.01</DG1.3.1><DG1.3.1>I10</DG1.3.1><DG1.3.1>E11.9</DG1.3.1> <DG1.3 Hemoglobin A1c/Hemoglobin.total in Blood 5.8 % 4.4-6.1 [facility] ([facility]) FASTING 12 HOUR~.~.~<DG1.3.1>Z00.01</DG1.3.1><DG1.3.1>I10</DG1.3.1><DG1.3.1>E11.9</DG1.3.1> <DG1.3 Thyrotropin [Units/volume] in Serum or Plasma 3.37 uIU/mL 0.47-5.01 [facility] ([facility]) FASTING 12 HOUR~.~.~<DG1.3.1>Z00.01</DG1.3.1><DG1.3.1>I10</DG1.3.1><DG1.3.1>E11.9</DG1.3.1> <DG1.3 Thyroxine (T4) free [Mass/volume] in Serum or Plasma 1.28 ng/dL 0.93- 1.70 [facility] ([facility]) FASTING 12 HOUR~.~.~<DG1.3.1>Z00.01</DG1.3.1><DG1.3.1>I10</DG1.3.1><DG1.3.1>E11.9</DG1.3.1> <DG1.3 ID Date Data Source [id number] 10/17/2020 01:21:00 PM EST [facility] ([facility]) Name Value Range Interpretation Code Description Data Debi rce(s) Supporting Document(s) Cve Panel Laboratory test result [facility] ([facility]) FASTING 12 HOUR~.~.~<DG1.3.1>Z00.01</DG1.3.1><DG1.3.1>I10</DG1.3.1><DG1.3.1>E11.9</DG1.3.1> <DG1.3 Cholesterol 115 mg/dL 131-200 Below low normal [facility] ([facility]) FASTING 12 HOUR~.~.~<DG1.3.1>Z00.01</DG1.3.1><DG1.3.1>I10</DG1.3.1><DG1.3.1>E11.9</DG1.3.1> <DG1.3 LDL 59 mg/dL 65-175 Below low normal [facility] ([facility]) FASTING 12 HOUR~.~.~<DG1.3.1>Z00.01</DG1.3.1><DG1.3.1>I10</DG1.3.1><DG1.3.1>E11.9</DG1.3.1> <DG1.3 Triglycerides 183 mg/dL 35-160 Above high normal [facility] NT ([facility]) FASTING 12 HOUR~.~.~<DG1.3.1>Z00.01</DG1.3.1><DG1.3.1>I10</DG1.3.1><DG1.3.1>E11.9</DG1.3.1> <DG1.3 HDL 30 mg/dL 29-86 [facility] ([facility]) FASTING 12 HOUR~.~.~<DG1.3.1>Z00.01</DG1.3.1><DG1.3.1>I10</DG1.3.1><DG1.3.1>E11.9</DG1.3.1> <DG1.3 LDL/HDL 1.97 1.47-3.22 [facility] ([facility]) FASTING 12 HOUR~.~.~<DG1.3.1>Z00.01</DG1.3.1><DG1.3.1>I10</DG1.3.1><DG1.3.1>E11.9</DG1.3.1> <DG1.3 Risk Factor 3.8 3.2-4.4 [facility] ([facility]) FASTING 12 HOUR~.~.~<DG1.3.1>Z00.01</DG1.3.1><DG1.3.1>I10</DG1.3.1><DG1.3.1>E11.9</DG1.3.1> <DG1.3 ID Date Data Source [id number] 10/17/2020 01:21:00 PM EST [facility] ([facility]) Name Value Range Interpretation Code Description Data Debi rce(s) Supporting Document(s) Comprehensive [employer]abo Laboratory test result [facility] ([facility]) FASTING 12 HOUR~.~.~<DG1.3.1>Z00.01</DG1.3.1><DG1.3.1>I10</DG1.3.1><DG1.3.1>E11.9</DG1.3.1> <DG1.3 Potassium 4.1 meq/L 3.6-5.0 [facility] ([facility]) FASTING 12 HOUR~.~.~<DG1.3.1>Z00.01</DG1.3.1><DG1.3.1>I10</DG1.3.1><DG1.3.1>E11.9</DG1.3.1> <DG1.3 Sodium 142 meq/L 134-153 [facility] ([facility]) FASTING 12 HOUR~.~.~<DG1.3.1>Z00.01</DG1.3.1><DG1.3.1>I10</DG1.3.1><DG1.3.1>E11.9</DG1.3.1> <DG1.3 Chloride 103 meq/L 98-107 [facility] ([facility]) FASTING 12 HOUR~.~.~<DG1.3.1>Z00.01</DG1.3.1><DG1.3.1>I10</DG1.3.1><DG1.3.1>E11.9</DG1.3.1> <DG1.3 Glucose 70 mg/dL 65-110 [facility] ([facility]) FASTING 12 HOUR~.~.~<DG1.3.1>Z00.01</DG1.3.1><DG1.3.1>I10</DG1.3.1><DG1.3.1>E11.9</DG1.3.1> <DG1.3 Co2 26 meq/L 22-30 [facility] ([facility]) FASTING 12 HOUR~.~.~<DG1.3.1>Z00.01</DG1.3.1><DG1.3.1>I10</DG1.3.1><DG1.3.1>E11.9</DG1.3.1> <DG1.3 BUN 22 mg/dL 7-21 Above high normal [facility] ([facility]) FASTING 12 HOUR~.~.~<DG1.3.1>Z00.01</DG1.3.1><DG1.3.1>I10</DG1.3.1><DG1.3.1>E11.9</DG1.3.1> <DG1.3 Creatinine 1.2 mg/dL 0.7-1.5 [facility] ([facility]) FASTING 12 HOUR~.~.~<DG1.3.1>Z00.01</DG1.3.1><DG1.3.1>I10</DG1.3.1><DG1.3.1>E11.9</DG1.3.1> <DG1.3 BUN/Creat 18 8-27 [facility] ([facility]) FASTING 12 HOUR~.~.~<DG1.3.1>Z00.01</DG1.3.1><DG1.3.1>I10</DG1.3.1><DG1.3.1>E11.9</DG1.3.1> <DG1.3 Albumin 4.3 g/dL 3.9-5.0 [facility] ([facility]) FASTING 12 HOUR~.~.~<DG1.3.1>Z00.01</DG1.3.1><DG1.3.1>I10</DG1.3.1><DG1.3.1>E11.9</DG1.3.1> <DG1.3 Total Protein 6.5 g/dL 6.3-8.2 [facility] ([facility]) FASTING 12 HOUR~.~.~<DG1.3.1>Z00.01</DG1.3.1><DG1.3.1>I10</DG1.3.1><DG1.3.1>E11.9</DG1.3.1> <DG1.3 A/G Ratio 2.0 0.8-2.0 [facility] ([facility]) FASTING 12 HOUR~.~.~<DG1.3.1>Z00.01</DG1.3.1><DG1.3.1>I10</DG1.3.1><DG1.3.1>E11.9</DG1.3.1> <DG1.3 Globulin 2.2 GM/DL 2.4-3.2 Below low normal [facility] ( [facility]) FASTING 12 HOUR~.~.~<DG1.3.1>Z00.01</DG1.3.1><DG1.3.1>I10</DG1.3.1><DG1.3.1>E11.9</DG1.3.1> <DG1.3 Calcium 9.7 mg/dL 8.4-10.2 [facility] ([facility]) FASTING 12 HOUR~.~.~<DG1.3.1>Z00.01</DG1.3.1><DG1.3.1>I10</DG1.3.1><DG1.3.1>E11.9</DG1.3.1> <DG1.3 Total Bili Laboratory test result 0.2-1.3 [facility] ([facility]) FASTING 12 HOUR~.~.~<DG1.3.1>Z00.01</DG1.3.1><DG1.3.1>I10</DG1.3.1><DG1.3.1>E11.9</DG1.3.1> <DG1.3 Alkaline Phos 139 U/L 38-126 Above high normal [facility] ([facility]) FASTING 12 HOUR~.~.~<DG1.3.1>Z00.01</DG1.3.1><DG1.3.1>I10</DG1.3.1><DG1.3.1>E11.9</DG1.3.1> <DG1.3 Sgot/Ast 20 U/L 5-40 [facility] ([facility]) FASTING 12 HOUR~.~.~<DG1.3.1>Z00.01</DG1.3.1><DG1.3.1>I10</DG1.3.1><DG1.3.1>E11.9</DG1.3.1> <DG1.3 SGPT/Alt 25 U/L 7-56 [facility] ([facility]) FASTING 12 HOUR~.~.~<DG1.3.1>Z00.01</DG1.3.1><DG1.3.1>I10</DG1.3.1><DG1.3.1>E11.9</DG1.3.1> <DG1.3 Anion Gap 13.0 mmol/L 8.0-16.0 [facility] ([facility]) FASTING 12 HOUR~.~.~<DG1.3.1>Z00.01</DG1.3.1><DG1.3.1>I10</DG1.3.1><DG1.3.1>E11.9</DG1.3.1> <DG1.3 Non-Aa GFR 47 mL/min [facility] ([facility]) FASTING 12 HOUR~.~.~<DG1.3.1>Z00.01</DG1.3.1><DG1.3.1>I10</DG1.3.1><DG1.3.1>E11.9</DG1.3.1> <DG1.3 Age 70 yrs [facility] ([facility]) FASTING 12 HOUR~.~.~<DG1.3.1>Z00.01</DG1.3.1><DG1.3.1>I10</DG1.3.1><DG1.3.1>E11.9</DG1.3.1> <DG1.3 Afr Amer GFR Laboratory test result [facility] ([facility]) FASTING 12 HOUR~.~.~<DG1.3.1>Z00.01</DG1.3.1><DG1.3.1>I10</DG1.3.1><DG1.3.1>E11.9</DG1.3.1> <DG1.3 ID Date Data Source [id number] 10/17/2020 01:21:00 PM EST [facility] ([facility]) Name Value Range Interpretation Code Description Data Debi rce(s) Supporting Document(s) Urinalysis Laboratory test result [facility] ([facility]) FASTING 12 HOUR~.~.~<DG1.3.1>Z00.01</DG1.3.1><DG1.3.1>I10</DG1.3.1><DG1.3.1>E11.9</DG1.3.1> <DG1.3 Source Laboratory test result [facility] ([facility]) FASTING 12 HOUR~.~.~<DG1.3.1>Z00.01</DG1.3.1><DG1.3.1>I10</DG1.3.1><DG1.3.1>E11.9</DG1.3.1> <DG1.3 Color Laboratory test result [facility] ([facility]) FASTING 12 HOUR~.~.~<DG1.3.1>Z00.01</DG1.3.1><DG1.3.1>I10</DG1.3.1><DG1.3.1>E11.9</DG1.3.1> <DG1.3 Spec [place] 1.015 1.001-1.030 [facility] ([facility]) FASTING 12 HOUR~.~.~<DG1.3.1>Z00.01</DG1.3.1><DG1.3.1>I10</DG1.3.1><DG1.3.1>E11.9</DG1.3.1> <DG1.3 Clarity Laboratory test result [facility] ([facility]) FASTING 12 HOUR~.~.~<DG1.3.1>Z00.01</DG1.3.1><DG1.3.1>I10</DG1.3.1><DG1.3.1>E11.9</DG1.3.1> <DG1.3 pH 5 5-9 [facility] ([facility]) FASTING 12 HOUR~.~.~<DG1.3.1>Z00.01</DG1.3.1><DG1.3.1>I10</DG1.3.1><DG1.3.1>E11.9</DG1.3.1> <DG1.3 Glucose Laboratory test result [facility] ([facility]) FASTING 12 HOUR~.~.~<DG1.3.1>Z00.01</DG1.3.1><DG1.3.1>I10</DG1.3.1><DG1.3.1>E11.9</DG1.3.1> <DG1.3 Bilirubin Laboratory test result [facility] ([facility]) FASTING 12 HOUR~.~.~<DG1.3.1>Z00.01</DG1.3.1><DG1.3.1>I10</DG1.3.1><DG1.3.1>E11.9</DG1.3.1> <DG1.3 Ketone Laboratory test result [facility] ([facility]) FASTING 12 HOUR~.~.~<DG1.3.1>Z00.01</DG1.3.1><DG1.3.1>I10</DG1.3.1><DG1.3.1>E11.9</DG1.3.1> <DG1.3 Nitrite Laboratory test result [facility] ([facility]) FASTING 12 HOUR~.~.~<DG1.3.1>Z00.01</DG1.3.1><DG1.3.1>I10</DG1.3.1><DG1.3.1>E11.9</DG1.3.1> <DG1.3 Protein Laboratory test result [facility] ([facility]) FASTING 12 HOUR~.~.~<DG1.3.1>Z00.01</DG1.3.1><DG1.3.1>I10</DG1.3.1><DG1.3.1>E11.9</DG1.3.1> <DG1.3 Blood Laboratory test result [facility] ([facility]) FASTING 12 HOUR~.~.~<DG1.3.1>Z00.01</DG1.3.1><DG1.3.1>I10</DG1.3.1><DG1.3.1>E11.9</DG1.3.1> <DG1.3 Leuk Est Laboratory test result [facility]) FASTING 12 HOUR~.~.~<DG1.3.1>Z00.01</DG1.3.1><DG1.3.1>I10</DG1.3.1><DG1.3.1>E11.9</DG1.3.1> <DG1.3 Urobilinogen Laboratory test result [facility] ([facility]) FASTING 12 HOUR~.~.~<DG1.3.1>Z00.01</DG1.3.1><DG1.3.1>I10</DG1.3.1><DG1.3.1>E11.9</DG1.3.1> <DG1.3 [facility]scopic [facility]~.~.~<DG1.3.1>Z00.01</DG1.3.1><DG1.3.1>I10</DG1.3.1><DG1.3.1>E11.9</DG1.3.1> <DG1.3 ID Date Data Source [id number] 10/17/2020 01:21:00 PM EST [facility] ([facility]) Name Value Range Interpretation Code Description Data Debi rce(s) Supporting Document(s) CBC W/Automated Diff Laboratory test result [facility] ([facility]) FASTING 12 HOUR~.~.~<DG1.3.1>Z00.01</DG1.3.1><DG1.3.1>I10</DG1.3.1><DG1.3.1>E11.9</DG1.3.1> <DG1.3 WBC 12.6 10^3/uL 4.2-11.0 Above high normal [facility] ([facility]) FASTING 12 HOUR~.~.~<DG1.3.1>Z00.01</DG1.3.1><DG1.3.1>I10</DG1.3.1><DG1.3.1>E11.9</DG1.3.1> <DG1.3 RBC 4.75 10^6/uL 4.20-5.40 [facility] ([facility]) FASTING 12 HOUR~.~.~<DG1.3.1>Z00.01</DG1.3.1><DG1.3.1>I10</DG1.3.1><DG1.3.1>E11.9</DG1.3.1> <DG1.3 Hemoglobin 12.6 g/dL 12.0-16.0 [facility] ([facility]) FASTING 12 HOUR~.~.~<DG1.3.1>Z00.01</DG1.3.1><DG1.3.1>I10</DG1.3.1><DG1.3.1>E11.9</DG1.3.1> <DG1.3 Hematocrit 40.5 % 37.0-47.0 [facility] ([facility]) FASTING 12 HOUR~.~.~<DG1.3.1>Z00.01</DG1.3.1><DG1.3.1>I10</DG1.3.1><DG1.3.1>E11.9</DG1.3.1> <DG1.3 MCH 26.5 pg 27.0-34.0 Below low normal [facility] ( [facility]) FASTING 12 HOUR~.~.~<DG1.3.1>Z00.01</DG1.3.1><DG1.3.1>I10</DG1.3.1><DG1.3.1>E11.9</DG1.3.1> <DG1.3 MCV 85.3 fL 81.0-101 [facility] ([facility]) FASTING 12 HOUR~.~.~<DG1.3.1>Z00.01</DG1.3.1><DG1.3.1>I10</DG1.3.1><DG1.3.1>E11.9</DG1.3.1> <DG1.3 MCHC 31.1 g/dL 31.0-36.0 [facility] ([facility]) FASTING 12 HOUR~.~.~<DG1.3.1>Z00.01</DG1.3.1><DG1.3.1>I10</DG1.3.1><DG1.3.1>E11.9</DG1.3.1> <DG1.3 RDW 17.6 % 11.5-14.5 Above high normal [facility] ([facility]) FASTING 12 HOUR~.~.~<DG1.3.1>Z00.01</DG1.3.1><DG1.3.1>I10</DG1.3.1><DG1.3.1>E11.9</DG1.3.1> <DG1.3 Platelets 326 10^3/uL 150-450 [facility] ([facility]) FASTING 12 HOUR~.~.~<DG1.3.1>Z00.01</DG1.3.1><DG1.3.1>I10</DG1.3.1><DG1.3.1>E11.9</DG1.3.1> <DG1.3 Neut 79.8 % 37.0-80.0 [facility] ([facility]) FASTING 12 HOUR~.~.~<DG1.3.1>Z00.01</DG1.3.1><DG1.3.1>I10</DG1.3.1><DG1.3.1>E11.9</DG1.3.1> <DG1.3 MPV 10.2 fL 7.4-10.4 [facility] ([facility]) FASTING 12 HOUR~.~.~<DG1.3.1>Z00.01</DG1.3.1><DG1.3.1>I10</DG1.3.1><DG1.3.1>E11.9</DG1.3.1> <DG1.3 Lymph 10.5 % 25.0-40.0 Below low normal [facility] ( [facility]) FASTING 12 HOUR~.~.~<DG1.3.1>Z00.01</DG1.3.1><DG1.3.1>I10</DG1.3.1><DG1.3.1>E11.9</DG1.3.1> <DG1.3 [place] 6.3 % 3.0-8.0 [facility] ([facility]) FASTING 12 HOUR~.~.~<DG1.3.1>Z00.01</DG1.3.1><DG1.3.1>I10</DG1.3.1><DG1.3.1>E11.9</DG1.3.1> <DG1.3 Eos 2.2 % 0.0-7.0 [facility] ([facility]) FASTING 12 HOUR~.~.~<DG1.3.1>Z00.01</DG1.3.1><DG1.3.1>I10</DG1.3.1><DG1.3.1>E11.9</DG1.3.1> <DG1.3 %Ig 0.5 % 0.0-0.0 Above high normal [facility] ([facility]) FASTING 12 HOUR~.~.~<DG1.3.1>Z00.01</DG1.3.1><DG1.3.1>I10</DG1.3.1><DG1.3.1>E11.9</DG1.3.1> <DG1.3 Baso 0.7 % 0.0-2.5 [facility] ([facility]) FASTING 12 HOUR~.~.~<DG1.3.1>Z00.01</DG1.3.1><DG1.3.1>I10</DG1.3.1><DG1.3.1>E11.9</DG1.3.1> <DG1.3 #Neut 10.06 10^3/uL 2.00-6.90 Above high normal [facility] NT ([facility]) FASTING 12 HOUR~.~.~<DG1.3.1>Z00.01</DG1.3.1><DG1.3.1>I10</DG1.3.1><DG1.3.1>E11.9</DG1.3.1> <DG1.3 %NRBC 0.0 % 0.0-0.0 [facility] ([facility]) FASTING 12 HOUR~.~.~<DG1.3.1>Z00.01</DG1.3.1><DG1.3.1>I10</DG1.3.1><DG1.3.1>E11.9</DG1.3.1> <DG1.3 #Lymph 1.33 10^3/uL 0.60-3.40 [facility] ([facility]) FASTING 12 HOUR~.~.~<DG1.3.1>Z00.01</DG1.3.1><DG1.3.1>I10</DG1.3.1><DG1.3.1>E11.9</DG1.3.1> <DG1.3 #[place] 0.80 10^3/uL 0.00-0.90 [facility] ([facility]) FASTING 12 HOUR~.~.~<DG1.3.1>Z00.01</DG1.3.1><DG1.3.1>I10</DG1.3.1><DG1.3.1>E11.9</DG1.3.1> <DG1.3 #Baso 0.09 10^3/uL 0.00-0.20 [facility] ([facility]) FASTING 12 HOUR~.~.~<DG1.3.1>Z00.01</DG1.3.1><DG1.3.1>I10</DG1.3.1><DG1.3.1>E11.9</DG1.3.1> <DG1.3 #Eos 0.28 10^3/uL 0.00-0.70 [facility] ([facility]) FASTING 12 HOUR~.~.~<DG1.3.1>Z00.01</DG1.3.1><DG1.3.1>I10</DG1.3.1><DG1.3.1>E11.9</DG1.3.1> <DG1.3 #Ig 0.06 10^3/uL 0.00-0.10 [facility] ([facility]) FASTING 12 HOUR~.~.~<DG1.3.1>Z00.01</DG1.3.1><DG1.3.1>I10</DG1.3.1><DG1.3.1>E11.9</DG1.3.1> <DG1.3 #NRBC 0.00 10^3/uL 0.00-0.00 [facility] ([facility]) FASTING 12 HOUR~.~.~<DG1.3.1>Z00.01</DG1.3.1><DG1.3.1>I10</DG1.3.1><DG1.3.1>E11.9</DG1.3.1> <DG1.3 RBC Morph Laboratory test result [facility] ([facility]) FASTING 12 HOUR~.~.~<DG1.3.1>Z00.01</DG1.3.1><DG1.3.1>I10</DG1.3.1><DG1.3.1>E11.9</DG1.3.1> <DG1.3 Manual Diff Laboratory test result [facility] ([facility]) FASTING 12 HOUR~.~.~<DG1.3.1>Z00.01</DG1.3.1><DG1.3.1>I10</DG1.3.1><DG1.3.1>E11.9</DG1.3.1> <DG1.3 ID Date Data Source [id number] 10/21/2020 09:06:00 AM [facility] Value Range Interpretation Code Description Data Debi rce(s) Supporting Document(s) Iron [Mass/volume] in Serum or Plasma 70 UG/DL 42 - 135 [facility] Iron binding capacity.unsaturated [Mass/volume] in Serum or Plasma 224 UG/DL 112 - 347 [facility] Iron binding capacity [Mass/volume] in Serum or Plasma 294 ug/dL 250 - 450 [facility] Iron saturation [Mass Fraction] in Serum or Plasma 24 % [facility] ID Date Data Source [id number] 10/17/2020 02:46:00 PM [facility] Value Range Interpretation Code Description Data Debi rce(s) Supporting Document(s) Thyroxine (T4) free index in Serum or Plasma by calculation 1.28 NG/DL 0.93 - 1.70 [facility] ID Date Data Source [id number] 10/17/2020 02:46:00 PM [facility] Value Range Interpretation Code Description Data Debi rce(s) Supporting Document(s) Thyrotropin [Units/volume] in Serum or Plasma by Detec tion limit <= 0.05 mIU/L 3.37 uIU/mL 0.47 - 5.01 [facility] ID Date Data Source [id number] 10/17/2020 02:46:00 PM EST [facility] Name Value Range Interpretation Code Description Data Debi rce(s) Supporting Document(s) Calcidiol [Moles/volume] in Serum or Plasma 27 NG/ML [facility] VITAMIN-D(2 5HYDROXY) Deficiency: <=20 ng/ml Insufficiency: 21-29 ng/ml Preferred level: => 30 ng/ml ID Date Data Source [id number] 10/17/2020 02:26:00 PM [facility] Name Value Range Interpretation Code Description Data Debi rce(s) Supporting Document(s) Hemoglobin A1c/Hemoglobin.total in Blood 5.8 % 4.4 - 6.1 [facility] {A1]{HB] ID Date Data Source [id number] 10/17/2020 02:18:00 PM [facility] Name Value Range Interpretation Code Description Data Debi rce(s) Supporting Document(s) [facility] Cholesterol [Mass/volume] in Serum or Plasma 115 MG/DL 131 - 200 L [facility] Deprecated Triglyceride [Mass/volume] in Serum or Plasma 183 MG/DL 3 5 - 160 H [facility] HDL 30 MG/DL 29 - 86 [facility] Cholesterol in LDL [Mass/volume] in Serum or Plasma by Direc t assay 59 mg/dL 65 - 175 L [facility] Cholesterol.total/Cholesterol in HDL [Mass Ratio] in Serum o r Plasma 3.8 3.2 - 4.4 [facility] LDL/HDL 1.97 1.47 - 3.22 [facility] CVE RISK CHOL/HDL LDL/HDLMEN: 1/2 AVERAGE 3.43 1.00 AVERAGE 4.97 3.55 2X AVERAGE 9.55 6.25 3X AVERAGE 23.99 7.99WOMEN: 1/2 AVERAGE 3.27 1.47 AVERAGE 4.44 3.22 2X AVERAGE 7.05 5.03 3X AVERAGE 11.04 6.14 ID Date Data Source [id number] 10/17/2020 02:18:00 PM EST [facility] Name Value Range Interpretation Code Description Data Debi rce(s) Supporting Document(s) COMPREHENSIVE METABOLIC PANEL [facility] COMPREHENSIVE METABOLIC PANEL Sodium [Moles/volume] in Serum or Plasma 142 mEq/L 134 - 153 [facility] Potassium [Moles/volume] in Serum or Plasma 4.1 mEq/L 3.6 - 5.0 [facility] Chloride [Moles/volume] in Serum or Plasma 103 mEq/L 98 - 107 [facility] Carbon dioxide, total [Moles/volume] in Serum or Plasma 26 MEQ/L 22 - 30 [facility] Glucose [Mass/volume] in Serum or Plasma 70 MG/DL 65 - 110 [facility] BUN 22 MG/DL 7 - 21 H [facility] Creatinine [Mass/volume] in Serum or Plasma 1.2 MG/DL 0.7 - 1.5 [facility] BUN/CREAT 18 8 - 27 [facility] Protein [Mass/volume] in Serum or Plasma 6.5 G/DL 6.3 - 8.2 [facility] Albumin [Mass/volume] in Serum or Plasma 4.3 G/DL 3.9 - 5.0 [facility] Globulin [Mass/volume] in Serum by calculation 2.2 GM/DL 2.4 - 3.2 L [facility] A/G RATIO 2.0 0.8 - 2.0 [facility] Calcium [Mass/volume] in Serum or Plasma 9.7 MG/DL 8.4 - 10.2 [facility] Bilirubin.total [Mass/volume] in Serum or Plasma <0.7 MG/DL 0.2 - 1.3 [facility] Alkaline phosphatase [Enzymatic activity/volume] in Serum or Plasma 139 U/L 38 - 126 H [facility] Aspartate aminotransferase [Enzymatic activity/volume] in Serum or Plasma 20 U/L 5 - 40 [facility] Alanine aminotransferase [Enzymatic activity/volume] in Seru m or Plasma 25 U/L 7 - 56 [facility] Anion gap 3 in Serum or Plasma 13.0 mmol/L 8.0 - 16.0 [facility] AGE 70 yrs [facility] al NON-AA GFR 47 mL[facility] A[facility] AMER GFR >60 [facility] Male GFR In terprentation 20-49 [...] >32 mL/min Normal ID Date Data Source [id number] 10/17/2020 01:55:00 PM EST [facility] Name Value Range Interpretation Code Description Data Debi rce(s) Supporting Document(s) [facility]IS [facility] URINALYSIS SOURCE R [facility] al COLOR yellow NORMAL: Yellow [facility] ospital CLARITY clear NORMAL: Clear [facility] spital Specific gravity of Urine by Test strip 1.015 1.001 - 1.030 [facility] pH 5 5 - 9 [facility] al Glucose [Mass/volume] in Urine by Test strip NORM NORMAL: Negat [facility] Bilirubin.total [Presence] in Urine by Test strip NEG NORMAL: Negative [facility] Ketones [Presence] in Urine by Test strip NEG NORMAL: Negative [facility] Protein [Mass/volume] in Urine by Test strip NEG NORMAL: [facility] Nitrite [Presence] in Urine by Test strip NEG NORMAL: Negative [facility] BLOOD NEG NORMAL: Negative [facility] Leukocyte esterase [Presence] in Urine by Test strip NEG RAMOS L: Negative [facility] Urobilinogen [Mass/volume] in Urine by Test strip NOR less diego n 1.0 mg/dL [facility] MICROSCOPIC Not Indicate [facility] ID Date Data Source [id number] 10/17/2020 01:49:00 PM EST [facility] Name Value Range Interpretation Code Description Data Debi rce(s) Supporting Document(s) CBC W/AUTOMATED DIFF [facility] COMPLETE BLOOD COUNT Leukocytes [#/volume] in Blood by Automated count 12.6 10^3/uL 4.2 - 11.0 H [facility] Erythrocytes [#/volume] in Blood by Automated count 4.75 10^6/uL 4. 20 - 5.40 [facility] Hemoglobin [Mass/volume] in Blood 12.6 g/dL 12.0 - 16.0 [facility] Hematocrit [Volume Fraction] of Blood by Automated count 40.5 % 3 7.0 - 47.0 [facility] Erythrocyte mean corpuscular volume [Entitic volume] by Auto mated count 85.3 fL 81.0 - 101 [facility] Erythrocyte mean corpuscular hemoglobin [Entitic mass] by Automated count 26.5 pg 27.0 - 34.0 L [facility] Erythrocyte mean corpuscular hemoglobin concentration [Mass/volume] by Automated count 31.1 g/dL 31.0 - 36.0 [facility] Erythrocyte distribution width [Ratio] by Automated count 17.6 % 11.5 - 14.5 H [facility] Platelets [#/volume] in Blood by Automated count 326 10^3/uL 150 - 45 0 [facility] Platelet mean volume [Entitic volume] in Blood by Automated count 10.2 fL 7.4 - 10.4 [facility] Neutrophils/100 leukocytes in Blood by Automated count 79.8 % 37. 0 - 80.0 [facility] Lymphocytes/100 leukocytes in Blood by Manual count 10.5 % 25.0 - 40.0 L [facility] Monocytes/100 leukocytes in Blood by Automated count 6.3 % 3.0 - 8.0 [facility] Eosinophils/100 leukocytes in Blood by Automated count 2.2 % 0.0 - 7.0 [facility] Basophils/100 leukocytes in Blood by Automated count 0.7 % 0.0 - 2.5 [facility] %IG 0.5 % 0.0 - 0.0 [facility] %NRBC 0.0 % 0.0 - 0.0 [facility] al Neutrophils [#/volume] in Blood by Automated count 10.06 10^3/uL 2. 00 - 6.90 H [facility] Lymphocytes [#/volume] in Blood by Automated count 1.33 10^3/uL 0.60 - 3.40 [facility] Monocytes [#/volume] in Blood by Automated count 0.80 10^3/uL 0.00 - 0.90 [facility] Eosinophils [#/volume] in Blood by Automated count 0.28 10^3/uL 0.00 - 0.70 [facility] Basophils [#/volume] in Blood by Automated count 0.09 10^3/uL 0.00 - 0.20 [facility] #IG 0.06 10^3/uL 0.00 - 0.10 [facility]sp[facility] #NRBC 0.00 10^3/uL 0.00 - 0.00 [facility] MANUAL DIFF NOT INDICATED [facility] RBC MORPH NOT INDICATED [facility] spital ID Date Data Source [id number] 09/16/2020 08:49:00 AM EST [facility] ([facility]) Name Value Range Interpretation Code Description Data Debi rce(s) Supporting Document(s) Appearance, Urine Laboratory test result Normal (applies to non-numeric results) [facility] ([facility]) Color, Urine Laboratory test result Normal (applies to non -numeric results) [facility] ([facility]) Specific [place] Urine Auto 1.015 1.002-1.035 Norm al (applies to non-numeric results) [facility] ([facility]) Protein, Urine Auto Laboratory test result Ramos l (applies to non-numeric results) [facility] ([facility]) PH,Urine 5.0 units 5.0-9.0 Normal (applies to non-numeric resul ts) [facility] ([facility]) Ketone, Urine Auto Laboratory test result Normal (applies to non-numeric results) [facility] ([facility]) Urobilinogen, Urine Auto 0.2 mg/dL 0.0-2.0 Normal (applies to non-numeric results) [facility] ([facility]) Glucose, Urine (Ua) Auto Laboratory test result Normal (applies to non-numeric results) [facility] ([facility]) Nitrite, Urine Auto Laboratory test result Ramos l (applies to non-numeric results) [facility] ([facility]) Bilirubin, Urine Auto Laboratory test result Nor mal (applies to non-numeric results) [facility] ([facility]) Leukocyte Esterase, Urine Auto Laboratory test result Abov e high normal [facility] ([facility]) WBC, Urine Auto 2 /HPF 0-3 Normal (applies to non-numeric results) [facility] ([facility]) RBC, Urine Auto 0 /HPF 0-3 Normal (applies to non-numeric results) [facility] ([facility]) Blood, Urine Blood Laboratory test result Normal (applies to non-numeric results) [facility] ([facility]) Squamous Epithelial Cell Ur AU 0 /HPF 0-6 N ormal (applies to non-numeric results) [facility] ([facility]) Hyaline Cast, Urine Auto 0 /LPF 0-1 Normal (applies to non -numeric results) [facility] ([facility]) Bacteria, Urine Auto Laboratory test result Norm al (applies to non-numeric results) [facility] ([facility]) ID Date Data Source [id number] 09/16/2020 08:43:00 AM EST [facility] ([facility]) Name Value Range Interpretation Code Description Data Debi rce(s) Supporting Document(s) White Blood Count 10.4 10 4.0-10.0 Above high normal [facility] ([facility]) Red Blood Count 5.11 10 4.00-5.40 Normal (applies to non-numeric results) [facility] ([facility]) Hemoglobin 13.3 g/dL 12.0-15.5 Normal (applies to non-numeric resul ts) [facility] ([facility]) Mean Corpuscular Volume 83.0 fl 80.0-96.0 Normal ( applies to non-numeric results) [facility]) Mean Corpuscular Hemoglobin 26.0 pg 27.0-33.0 Below low normal [facility] ([facility]) Hematocrit 42.4 % 36.0-47.0 Normal (applies to non-numeric resul ts) [facility] ([facility]) Platelet Count, Automated 276 10 150-450 Normal (applies to non-numeric results) [facility]) Mean Corpuscular HGB Conc 31.4 g/dL 32.0-36.5 Below low normal [facility] ([facility]) Red Cell Distribution Width 14.1 % 11.5-14.5 Norm al (applies to non-numeric results) [facility] ([facility]) Lymph % 13.9 % 24.0-44.0 Below low normal [facility] ( [facility]) [place] % 6.1 % 0.0-5.0 Above high normal [facility] ([facility]) Neutrophils % 74.9 % 36.0-66.0 Above high normal [facility] ([facility]) Immature Granulocyte % 0.3 % 0-3.0 Normal (applies to non-n umeric results) [facility] ([facility]) Baso % 0.6 % 0.0-1.0 Normal (applies to non-numeric resul ts) [facility] ([facility]) Eos % 4.2 % 0.0-3.0 Above high normal [facility] ([facility]) Nucleated Red Blood Cell % 0.0 % 0-0 Normal (applies to n on-numeric results) [facility] ([facility]) Lymph # 1.4 10 1.5-5.0 Below low normal [facility] ( [facility]) Neutrophils # 7.8 10 1.5-8.5 Normal (applies to non-numeric re sults) [facility] ([facility]) Baso # 0.1 10 0.0-0.2 Normal (applies to non-numeric resul ts) [facility] ([facility]) Eos # 0.4 10 0.0-0.5 Normal (applies to non-numeric resul ts) [facility] ([facility]) [place] # 0.6 10 0.0-0.8 Normal (applies to non-numeric resul ts) [facility] ([facility]) ID Date Data Source [id number] 09/16/2020 08:43:00 AM EST [facility] ([facility]) Name Value Range Interpretation Code Description Data Debi rce(s) Supporting Document(s) Hemoglobin A1c 5.7 % Normal (applies to non-numeric r esults) [facility] ([facility]) <content>REFERENCE RANGES:</content><br/ ><content></content>
<content><=5.6% NORMAL</content>
<content>5.7-6.4% SUGGESTS IMPAIRED GLUCOSE METABOLISM/PREDIABETIC</content>
<content>>= 6.5% ABNORMAL</content>
<content></content> Estimated Average Glucose 117 mg/dL 60-110 Above high normal [facility] ([facility]) ID Date Data Source [id number] 09/16/2020 08:43:00 AM EST [facility] ([facility]) Name Value Range Interpretation Code Description Data Debi rce(s) Supporting Document(s) Triglycerides Level 212 mg/dL Above high normal [facility] ([facility]) Cholesterol Level 140 mg/dL Normal (applies to non-numeri c results) [facility] ([facility]) HDL Cholesterol 40 mg/dL Normal (applies to non-numeric results) [facility] ([facility]) Non-HDL-C 100 mg/dL Normal (applies to non-numeric resul ts) [facility] ([facility]) LDL Cholesterol 58 mg/dL Normal (applies to non-numeric results) [facility] ([facility]) Cholesterol Risk Ratio 3.500 Normal (applies to non-n umeric results) [facility] ([facility]) ID Date Data Source [id number] 09/16/2020 08:43:00 AM EST [facility] ([facility]) Name Value Range Interpretation Code Description Data Debi rce(s) Supporting Document(s) Calcidiol [Mass/volume] in Serum or Plasma 13.6 ng/mL 30.0- 100.0 Below low normal [facility] ([facility]) ID Date Data Source [id number] 09/16/2020 08:43:00 AM EST [facility] ([facility]) Name Value Range Interpretation Code Description Data Debi rce(s) Supporting Document(s) Thyrotropin [Units/volume] in Serum or Plasma Laboratory test result [facility] ([facility]) Thyroxine (T4) free [Mass/volume] in Serum or Plasma Laboratory tash t result [facility] ([facility]) ID Date Data Source [id number] 09/16/2020 08:43:00 AM EST [facility] ([facility]) Name Value Range Interpretation Code Description Data Debi rce(s) Supporting Document(s) Glucose, Fasting 101 mg/dL 70-100 Above high normal [facility] ([facility]) Blood Urea Nitrogen 15 mg/dL 7-18 Normal (applies to non-nume reece results) [facility] ([facility]) Sodium Level 141 meq/L 136-145 Normal (applies to non-numeric res ults) [facility] ([facility]) Creatinine For GFR 1.06 mg/dL 0.55-1.30 Normal (applies to non -numeric results) [facility] ([facility]) Glomerular Filtration Rate 54.6 Normal (applies to n on-numeric results) [facility] ([facility]) <content>Units are mL/min/1.73 m2</content>
<content></content>
<content>Chronic Kidney Disease Staging per NKF:</content>
<content></content>
<content>Stage I & II GFR >=60 Normal to Mildly Decreased</content>
<content>Stage III GFR 30- 59 Moderately Decreased</content>
<content>Stage IV GFR 15-29 Severely Decreased</content>
<content>Stage V GFR <15 Very Little GFR Left</content>
<content>ESRD GFR <15 on TECHNOLOGY ANALYST</content>
<content></content> Chloride Level 109 meq/L 98-107 Above high normal [facility] ([facility]) Potassium Serum 3.9 meq/L 3.5-5.1 Normal (applies to non-numeric results) [facility] ([facility]) Carbon Dioxide Level 24 meq/L 21-32 Normal (applies to non-num tacho results) [facility] ([facility]) Calcium Level 9.5 mg/dL 8.8-10.2 Normal (applies to non-numeric re sults) [facility] ([facility]) Anion Gap 8 meq/L 8-16 Normal (applies to non-numeric resul ts) [facility] ([facility]) Ast/Sgot 10 U/L 7-37 Normal (applies to non-numeric resul ts) [facility] ([facility]) Alt/SGPT 16 U/L 12-78 Normal (applies to non-numeric resul ts) [facility] ([facility]) Alkaline Phosphatase 98 U/L 45-117 Normal (applies to non-num tacho results) [facility] ([facility]) Total Protein 7.3 GM/DL 6.4-8.2 Normal (applies to non-numeric re sults) [facility] ([facility]) Bilirubin,Total 0.7 mg/dL 0.2-1.0 Normal (applies to non-numeric results) [facility] ([facility]) Albumin 3.7 GM/DL 3.2-5.2 Normal (applies to non-numeric resul ts) [facility] ([facility]) Albumin/Globulin Ratio 1.0 1.2-2.2 Below low normal [facility] ID Date Data Source [id number] 09/16/2020 08:43:00 AM EST [facility] ([facility]) Name Value Range Interpretation Code Description Data Debi rce(s) Supporting Document(s) Thyroid Stimulating Hormone 2.180 uIU/ML 0.358-3.740 Norm al (applies to non- numeric results) [facility] ([facility]) Free T4 1.11 ng/dL 0.76-1.46 Normal (applies to non-numeric resul ts) [facility] ([facility]) ID Date Data Source [id number] 07/31/2020 10:01:00 AM EDT [facility] ([facility]) Name Value Range Interpretation Code Description Data Debi rce(s) Supporting Document(s) Red Blood Count 4.10 4.00-5.40 [facility] ([facility]) White Blood Count 6.8 4.0-10.0 [facility] ([facility]) Platelets 240 150-450 [facility] Hemoglobin 11.1 [facility] ([facility]) Hematocrit 33.7 [facility] ([facility]) ID Date Data Source [id number] 04/23/2020 02:44:00 PM EDT [facility] ([facility] Name Value Range Interpretation Code Description Data Debi rce(s) Supporting Document(s) White Blood Count 10.6 5.0-10.0 [facility] ([facility]) Platelets 365 172-450 [facility] Red Blood Count 4.79 4.00-5.40 [facility] ([facility]) Hemoglobin 12.5 [facility] ([facility]) Hematocrit 39.5 [facility] ([facility]) ID Date Data Source [id number] 04/23/2020 02:44:00 PM EDT [facility] ([facility]) Name Value Range Interpretation Code Description Data Debi rce(s) Supporting Document(s) Magnesium Level 2.3 1.8-2.4 [facility] ([facility]) ID Date Data Source [id number] 04/23/2020 02:44:00 PM EDT [facility] ([facility]) Name Value Range Interpretation Code Description Data Debi rce(s) Supporting Document(s) Glucose 71 70-100 [facility] Blood Urea Nitrogen 27 7-18 [facility] ([facility]) Sodium 140 136-145 [facility] [place] Creatinine 1.07 0.6-1.0 [facility] ([facility]) Potassium 4.0 3.5-5.1 [facility] Chloride 108 98-107 [facility] Calcium 9.0 8.2-9.6 [facility] Carbon Dioxide 25 21-32 [facility] ([facility]) Glomerular filtration rate/1.73 sq M.pre dicted [Volume Rate/Area] in Serum or Plasma by Creatinine-based formula (MDRD) 54.0 [facility] ([facility]) ID Date Data Source [id number] 04/18/2020 02:49:00 PM EDT [facility] ([facility]) Name Value Range Interpretation Code Description Data Debi rce(s) Supporting Document(s) Natriuretic peptide.B prohormone N-Terminal [Mass/volu me] in Serum or Plasma 222 [facility] ([employer] [employer] [facility]) Troponin Laboratory test result [facility] ([facility]) ID Date Data Source [id number] 04/18/2020 02:49:00 PM EDT [facility] ([facility]) Name Value Range Interpretation Code Description Data Debi rce(s) Supporting Document(s) Creatine kinase [Enzymatic activity/volume] in Serum or Plasma 119 [facility] ([facility]) CPK-MB 3.0 [facility] ([facility]) ID Date Data Source [id number] 04/17/2020 03:01:00 PM EDT [facility] ([facility]) Name Value Range Interpretation Code Description Data Debi rce(s) Supporting Document(s) Thyroid Stimulating Hormone 6.590 [facility] ([facility]) ID Date Data Source NASAL AND SINUS CULTURE 12/03/2019 12:00:00 AM EST [email or web address] ([facility]) Name Value Range Interpretation Code Description Data Debi rce(s) Supporting Document(s) FULL REPORT IN LAB NOTES ([facility]CW and [facility]). NASAL AND SINUS CULTURE eCW1 ([facility]) ID Date Data Source [id number] 11/22/2019 05:23:00 PM EST [facility] ([facility], ) Name Value Range Interpretation Code Description Data Debi rce(s) Supporting Document(s) Rheumatoid factor [Units/volume] in Serum or Plasma Laboratory t est result Normal (applies to non-numeric results) [facility] ([facility], ) will discuss at follow-up Cyclic citrullinated peptide IgG Ab [Units/volume] in Serum or Plasma 10 units 0-19 Normal (applies to non-numeric results) [facility] ([facility], ) will discuss at follow-up ID Date Data Source [id number] 11/22/2019 05:23:00 PM EST [facility] ([facility], ) Name Value Range Interpretation Code Description Data Debi rce(s) Supporting Document(s) Aureobasidium Pullulans Laboratory test result N ormal (applies to non-numeric results) [facility] ([facility], ) will discuss at follow-up Aspergillus Fumigatus AB Laboratory test result Normal (applies to non-numeric results) [facility] ([facility], ) will discuss at follow-up Micropolyspora Faeni AB Laboratory test result N ormal (applies to non-numeric results) [facility] ([facility], ) will discuss at follow-up Temple Serum AB Laboratory test result Normal (a pplies to non-numeric results) [facility] ([facility]) will discuss at follow-up Thermoactinomyces Sacchari Laboratory test result Normal (applies to non- numeric results) [facility] ([facility]) will discuss at follow-up Thermoactinomyces Vulgaris Laboratory test result Normal (applies to non- numeric results) [facility] ([facility]) will discuss at follow-up ID Date Data Source [id number] 11/22/2019 05:23:00 PM EST [facility] ([facility]) Name Value Range Interpretation Code Description Data Debi rce(s) Supporting Document(s) Glucose, Fasting 114 mg/dL 70-100 Above high normal [facility] ) will discuss at follow-up Glomerular Filtration Rate 48.8 Normal (applies to n on-numeric results) [facility] ([facility], ) will discuss at follow-up Blood Urea Nitrogen 17 mg/dL 7-18 Normal (applies to non-nume reece results) [facility] ([facility]) will discuss at follow-up Creatinine For GFR 1.17 mg/dL 0.55-1.30 Normal (applies to non -numeric results) [facility] ([facility]) will discuss at follow-up Sodium Level 142 meq/L 136-145 Normal (applies to non-numeric res ults) [facility] ([facility]) will discuss at follow-up Potassium Serum 4.1 meq/L 3.5-5.1 Normal (applies to non-numeric results) [facility] ([facility]) will discuss at follow-up Carbon Dioxide Level 29 meq/L 21-32 Normal (applies to non-num tacho results) [facility] ([facility]) will discuss at follow-up Chloride Level 106 meq/L 98-107 Normal (applies to non-numeric r esults) [facility] will discuss at follow-up Anion Gap 7 meq/L 8-16 Below low normal [facility] ( [facility], ) will discuss at follow-up Calcium Level 9.0 mg/dL 8.8-10.2 Normal (applies to non-numeric re sults) [facility] ([facility], ) will discuss at follow-up Procedure Social History Code Duration Value Status Description Data Source(s ) Smoking 10/16/2020 12:00:00 AM EST - 10/31/2013 12:00:00 AM EST Patient is a former smoker completed Patient is a former smoker [facility] ([facility], ) Smoking 08/27/2020 12:00:00 AM EDT Former Smoker completed Former Smoker [email or web address] ([facility]) Smoking 08/27/2020 12:00:00 AM EDT Former Smoker completed Former Smoker eCW1 ([facility]) Smoking 08/27/2020 12:00:00 AM EDT Former Smoker completed Former Smoker eCW1 ([facility]) Smoking 08/27/2020 12:00:00 AM EDT Former Smoker completed Former Smoker eCW1 ([facility]) Smoking 08/27/2020 12:00:00 AM EDT Former Smoker completed Former Smoker eCW1 ([facility]) Smoking 08/27/2020 12:00:00 AM EDT Former Smoker completed Former Smoker eCW1 ([facility]) Smoking 08/27/2020 12:00:00 AM EDT Former Smoker completed Former Smoker eCW1 ([facility]) Smoking 08/27/2020 12:00:00 AM EDT Former Smoker completed Former Smoker eCW1 ([facility]) Smoking 08/27/2020 12:00:00 AM EDT Former Smoker completed Former Smoker eCW1 ([facility]) Smoking 08/27/2020 12:00:00 AM EDT Former Smoker completed Former Smoker eCW1 ([facility]) Smoking 08/27/2020 12:00:00 AM EDT Former Smoker completed Former Smoker eCW1 ([facility]) Smoking 08/27/2020 12:00:00 AM EDT Former Smoker completed Former Smoker eCW1 ([facility]) Smoking 08/22/2020 12:00:00 AM EDT Patient is a former smoker completed Patient is a former smoker [facility] ([facility]) Smoking 08/07/2020 12:00:00 AM EDT Former Smoker completed Former Smoker eCW1 ([facility]) Smoking 08/07/2020 12:00:00 AM EDT Former Smoker completed Former Smoker eCW1 ([facility]) Smoking 08/07/2020 12:00:00 AM EDT Former Smoker completed Former Smoker eCW1 ([facility]) Smoking 05/05/2020 12:00:00 AM EDT Former Smoker completed Former Smoker eCW1 ([facility]) Smoking 05/05/2020 12:00:00 AM EDT Former Smoker completed Former Smoker eCW1 ([facility]) Smoking 04/10/2020 12:00:00 AM EDT Former Smoker completed Former Smoker eCW1 ([facility]) Smoking 04/10/2020 12:00:00 AM EDT Former Smoker completed Former Smoker eCW1 ([facility]) Smoking 04/10/2020 12:00:00 AM EDT Former Smoker completed Former Smoker eCW1 ([facility]) Smoking 04/10/2020 12:00:00 AM EDT Former Smoker completed Former Smoker eCW1 ([facility]) Vital Signs ID Date Data Source UNK Name Value Range Interpretation Code Description Data Source(s) Body weight 74.844 kg 74.844 kg [facility] ([facility]) [place] body weight 110 [lb_av] 110 [lb_av] MEDEN T ([facility]) Body mass index (BMI) [Ratio] 30.2 kg/m2 30.2 k g/m2 [facility] ([facility]) Body weight 165.00 [lb_av] 165.00 [lb_av] MEDEN T ([facility]) verbla per the pt Body height 62 [in_i] 62 [in_i] [facility] ([facility]) 5'2" Body temperature 95.9 [degF] 95.9 [degF] MEDENT ([facility], ) Oxygen saturation in Arterial blood by Pulse oximetry 916 % 916 % [facility] ([facility]) Heart rate 83 /min 83 /min [facility] (Health system) Diastolic blood pressure 70 mm[Hg] 70 mm[Hg] [facility] ([facility]) Systolic blood pressure 122 mm[Hg] 122 mm[Hg] [facility] ([facility]) Body surface area Derived from formula 1.76 m2 1.76 m2 [facility] ([facility]) Body surface area Derived from formula 1.70 m2 1.70 m2 [facility] ([facility]) Body mass index (BMI) [Ratio] 31.5 kg/m2 31.5 k g/m2 [facility] ([facility]) Body height 60 [in_i] 60 [in_i] [facility] ([facility]) 5'0" Body weight 73.200 kg 73.200 kg [facility] ([facility]) Body weight 161.38 [lb_av] 161.38 [lb_av] MEDEN T ([facility]) Oxygen saturation in Arterial blood by Pulse oximetry 98 % 98 % [facility] ([facility]) oxygen set 5L Respiratory rate 16 /min 16 /min [facility] ( [facility]) Body temperature 98.5 [degF] 98.5 [degF] [facility] ([facility]) Heart rate 75 /min 75 /min [facility] ([facility]) Diastolic blood pressure 80 mm[Hg] 80 mm[Hg] [facility] ([facility]) Systolic blood pressure 120 mm[Hg] 120 mm[Hg] [facility] ([facility]) Body surface area Derived from formula 1.70 m2 1.70 m2 [facility] ([facility]) Body mass index (BMI) [Ratio] 31.5 kg/m2 31.5 k g/m2 [facility] ([facility]) Body height 60 [in_i] 60 [in_i] [facility] ([facility]) 5'0" Body weight 73.256 kg 73.256 kg [facility] ([facility]) Body weight 161.50 [lb_av] 161.50 [lb_av] MEDEN T ([facility]) Oxygen saturation in Arterial blood by Pulse oximetry 98 % 98 % [facility] ([facility]) O2 set at 4L Respiratory rate 16 /min 16 /min [facility] ( [facility]) Body temperature 96.0 [degF] 96.0 [degF] [facility] ([facility]) Heart rate 58 /min 58 /min [facility] ([facility]) Diastolic blood pressure 82 mm[Hg] 82 mm[Hg] [facility] ([facility]) Systolic blood pressure 124 mm[Hg] 124 mm[Hg] [facility]) Body surface area Derived from formula 1.75 m2 1.75 m2 [facility] ([facility], ) Body weight 73.256 kg 73.256 kg [facility] ([facility], ) [place] body weight 110 [lb_av] 110 [lb_av] [facility] Body mass index (BMI) [Ratio] 29.5 kg/m2 29.5 k g/m2 [facility] ([facility], ) Body weight 161.50 [lb_av] 161.50 [lb_av] [facility] Body height 62 [in_i] 62 [in_i] [facility] ([facility], ) 5'2" Body temperature 97.1 [degF] 97.1 [degF] [facility] ([facility], ) Oxygen saturation in Arterial blood by Pulse oximetry 974 % 974 % [facility] ([facility], ) Heart rate 66 /min 66 /min [facility] ([facility], ) Diastolic blood pressure 70 mm[Hg] 70 mm[Hg] [facility] ([facility], ) Systolic blood pressure 118 mm[Hg] 118 mm[Hg] [facility] ([facility], ) Diastolic blood pressure 66 mm[Hg] 66 mm[Hg] eCW1 ([facility]) Systolic blood pressure 138 mm[Hg] 138 mm[Hg] e CW1 ([facility]) Body temperature 96.6 [degF] 96.6 [degF] eCW1 ( [facility]) Respiratory rate 20 /min 20 /min eCW1 ([facility]) Heart rate 87 /min 87 /min eCW1 ([facility]) Body mass index (BMI) [Ratio] 29.88 kg/m2 29.88 kg/m2 eCW1 ([facility]) Body height 62 [in_i] 62 [in_i] eCW1 [facility] Body weight 163.4 [lb_av] 163.4 [lb_av] eCW1 ([facility]) Diastolic blood pressure--sitting 40 mm[Hg] 40 mm[Hg] MEDENT ([facility]) large cuff, Ra Systolic blood pressure--sitting 82 mm[Hg] 82 mm[Hg] [facility] ([facility]) large cuff, Ra Heart rate 63 /min 63 /min [facility] ([facility]) Body mass index (BMI) [Ratio] 29.4 kg/m2 29.4 k g/m2 [facility] ([facility]) Body height 62 [in_i] 62 [in_i] [facility] ([facility]) 5'2" Body weight 161.00 [lb_av] 161.00 [lb_av] MEDEN T ([facility]) Diastolic blood pressure--sitting 66 mm[Hg] 66 mm[Hg] [facility] ([facility]) CBP adult cuff, [place] Systolic blood pressure--sitting 106 mm[Hg] 106 mm[Hg] [facility] ([facility]) CBP adult cuff, [place] Heart rate 72 /min 72 /min [facility] ([facility]) Body mass index (BMI) [Ratio] 31.3 kg/m2 31.3 k g/m2 [facility] ([facility]) Body height 62 [in_i] 62 [in_i] [facility] ([facility]) 5'2" Body weight 171.00 [lb_av] 171.00 [lb_av] MEDEN T ([facility]) Diastolic blood pressure 66 mm[Hg] 66 mm[Hg] eCW1 ([facility]) Systolic blood pressure 110 mm[Hg] 110 mm[Hg] e CW1 ([facility]) Body temperature 98.5 [degF] 98.5 [degF] eCW1 ( [facility]) Respiratory rate 20 /min 20 /min eCW1 ([facility]) Heart rate 69 /min 69 /min eCW1 ([facility]) Body mass index (BMI) [Ratio] 31.60 kg/m2 31.60 kg/m2 eCW1 ([facility]) Body height 62 [in_i] 62 [in_i] eCW1 ([facility] Body weight 172.8 [lb_av] 172.8 [lb_av] eCW1 ([facility]) Diastolic blood pressure 74 mm[Hg] 74 mm[Hg] eCW1 ([facility]) Systolic blood pressure 113 mm[Hg] 113 mm[Hg] e CW1 ([facility]) Body temperature 98.8 [degF] 98.8 [degF] eCW1 ( [facility]) Respiratory rate 20 /min 20 /min eCW1 ([facility]) Heart rate 79 /min 79 /min eCW1 ([facility]) Body mass index (BMI) [Ratio] 31.97 kg/m2 31.97 kg/m2 eCW1 ([facility]) Body height 62 [in_us] 62 [in_us] eCW1 ([facility]) Body weight Measured 174.8 [lb_av] 174.8 [lb_av ] eCW1 ([facility]) Diastolic blood pressure 62 mm[Hg] 62 mm[Hg] eCW1 ([facility]) Systolic blood pressure 114 mm[Hg] 114 mm[Hg] e CW1 ([facility]) Body temperature 99.2 [degF] 99.2 [degF] eCW1 ( [facility]) Respiratory rate 20 /min 20 /min eCW1 ([facility]) Heart rate 89 /min 89 /min eCW1 ([facility]) Body mass index (BMI) [Ratio] 32.15 kg/m2 32.15 kg/m2 eCW1 ([facility]) Body height 62 [in_i] 62 [in_i] eCW1 ([facility] Body weight 175.8 [lb_av] 175.8 [lb_av] eCW1 ([facility]) Body weight 79.380 kg 79.380 kg [facility] ([facility], ) [place] body weight 110 [lb_av] 110 [lb_av] MEDEN T ([facility]) Body mass index (BMI) [Ratio] 32.0 kg/m2 32.0 k g/m2 [facility] ([facility]) Body weight 175.00 [lb_av] 175.00 [lb_av] [facility]) Body height 62 [in_i] 62 [in_i] [facility] ([facility]) 5'2" Body temperature 98.8 [degF] 98.8 [degF] [facility] ([facility]) Oxygen saturation in Arterial blood by Pulse oximetry 91 % 91 % [facility] ([facility]) o2 sat on 4l Heart rate 73 /min 73 /min [facility] (Health system) Diastolic blood pressure 68 mm[Hg] 68 mm[Hg] [facility] ([facility]) Systolic blood pressure 102 mm[Hg] 102 mm[Hg] M EDENT ([facility]) Diastolic blood pressure 56 mm[Hg] 56 mm[Hg] eCW1 ([facility]) Systolic blood pressure 114 mm[Hg] 114 mm[Hg] e CW1 ([facility]) Body temperature 97.2 [degF] 97.2 [degF] eCW1 ( [facility]) Respiratory rate 20 /min 20 /min eCW1 ([facility]) Heart rate 96 /min 96 /min eCW1 ([facility]) Body mass index (BMI) [Ratio] 32.15 kg/m2 32.15 kg/m2 eCW1 ([facility]) Body height 62 [in_us] 62 [in_us] eCW1 ([facility]) Body weight Measured 175.8 [lb_av] 175.8 [lb_av ] W1 ([facility]) Body weight 80.968 kg 80.968 kg [facility] ([facility]) Body mass index (BMI) [Ratio] 32.6 kg/m2 32.6 k g/m2 [facility] ([facility]) Body weight 178.50 [lb_av] 178.50 [lb_av] MEDEN T ([facility]) Body height 62 [in_i] 62 [in_i] [facility] ([facility]) 5'2" Oxygen saturation in Arterial blood by Pulse oximetry 86 % 86 % [facility] ([facility]) o2 sat on 3L pulsed, 96% 02 sat on 4L co ntinuous Heart rate 69 /min 69 /min [facility] ([facility] system) Diastolic blood pressure 63 mm[Hg] 63 mm[Hg] [facility] ([facility]) Systolic blood pressure 124 mm[Hg] 124 mm[Hg] [facility]) Diastolic blood pressure 62 mm[Hg] 62 mm[Hg] eCW1 ([facility]) Systolic blood pressure 110 mm[Hg] 110 mm[Hg] e CW1 ([facility]) Body temperature 98.4 [degF] 98.4 [degF] eCW1 ( [facility]) Respiratory rate 20 /min 20 /min eCW1 ([facility]) Heart rate 81 /min 81 /min eCW1 ([facility]) Body mass index (BMI) [Ratio] 32.81 kg/m2 32.81 kg/m2 W1 ([facility]) Body height 62 [in_us] 62 [in_us] eCW1 ([facility]) Body weight Measured 179.4 [lb_av] 179.4 [lb_av ] W1 ([facility]) Body temperature 97.4 [degF] 97.4 [degF] eCW1 ( [facility]) Respiratory rate 18 /min 18 /min eCW1 ([facility]) Heart rate 74 /min 74 /min eCW1 ([facility]) Body mass index (BMI) [Ratio] 32.88 kg/m2 32.88 kg/m2 eCW1 ([facility]) Body height 62 [in_us] 62 [in_us] eCW1 ([facility]) Body weight Measured 179.8 [lb_av] 179.8 [lb_av ] eCW1 ([facility]) Diastolic blood pressure 78 mm[Hg] 78 mm[Hg] eCW1 ([facility]) Systolic blood pressure 118 mm[Hg] 118 mm[Hg] e CW1 ([facility]) Body temperature 98.0 [degF] 98.0 [degF] eCW1 ( [facility]) Respiratory rate 18 /min 18 /min eCW1 ([facility]) Heart rate 86 /min 86 /min eCW1 ([facility]) Body mass index (BMI) [Ratio] 33.10 kg/m2 33.10 kg/m2 eCW1 ([facility]) Body height 62 [in_us] 62 [in_us] eCW1 ([facility]) Body weight Measured 181.0 [lb_av] 181.0 [lb_av ] eCW1 ([facility]) Body weight 83.916 kg 83.916 kg [facility] ([facility], ) Body mass index (BMI) [Ratio] 33.8 kg/m2 33.8 k g/m2 MEDENT ([facility], ) Body weight 185.00 [lb_av] 185.00 [lb_av] RICKYEN T ([facility], ) Body height 62 [in_i] 62 [in_i] [facility] 5'2" Oxygen saturation in Arterial blood by Pulse oximetry 91 % 91 % [facility] o2 sat on 3l Heart rate 79 /min 79 /min [facility] ([facility], ) Diastolic blood pressure 78 mm[Hg] 78 mm[Hg] [facility] ([facility], ) Systolic blood pressure 122 mm[Hg] 122 mm[Hg] [facility] ([facility]) Diastolic blood pressure 59 mm[Hg] 59 mm[Hg] eCW1 ([facility]) Systolic blood pressure 124 mm[Hg] 124 mm[Hg] e CW1 ([facility]) Body temperature 98.1 [degF] 98.1 [degF] eCW1 ( [facility]) Respiratory rate 20 /min 20 /min eCW1 ([facility]) Heart rate 84 /min 84 /min eCW1 ([facility]) Body mass index (BMI) [Ratio] 33.43 kg/m2 33.43 kg/m2 eCW1 ([facility]) Body height 62 [in_us] 62 [in_us] eCW1 ([facility]) Body weight Measured 182.8 [lb_av] 182.8 [lb_av ] eCW1 ([facility]) Body weight 83.916 kg 83.916 kg [facility] ([facility], ) Body mass index (BMI) [Ratio] 33.8 kg/m2 33.8 k g/m2 [facility] ([facility], ) Body weight 185.00 [lb_av] 185.00 [lb_av] MEDEN T ([facility], ) Body height 62 [in_i] 62 [in_i] [facility] ([facility], ) 5'2" Oxygen saturation in Arterial blood by Pulse oximetry 91 % 91 % [facility] ([facility], ) o2 sat on 3l pulsed Heart rate 67 /min 67 /min [facility] ([facility], ) Diastolic blood pressure 74 mm[Hg] 74 mm[Hg] [facility] ([facility], ) Systolic blood pressure 122 mm[Hg] 122 mm[Hg] [facility] ([facility], ) Diastolic blood pressure 62 mm[Hg] 62 mm[Hg] eCW1 ([facility]) Systolic blood pressure 128 mm[Hg] 128 mm[Hg] e CW1 ([facility]) Body temperature 98.9 [degF] 98.9 [degF] eCW1 ( [facility]) Respiratory rate 20 /min 20 /min eCW1 ([facility]) Heart rate 87 /min 87 /min eCW1 ([facility]) Body mass index (BMI) [Ratio] 33.47 kg/m2 33.47 kg/m2 eCW1 ([facility]) Body height 62 [in_us] 62 [in_us] eCW1 ([facility]) Body weight Measured 183 [lb_av] 183 [lb_av] eC W1 ([facility]) Diastolic blood pressure 63 mm[Hg] 63 mm[Hg] eCW1 ([facility]) Systolic blood pressure 131 mm[Hg] 131 mm[Hg] e CW1 ([facility]) Body temperature 96.5 [degF] 96.5 [degF] eCW1 ( [facility]) Respiratory rate 18 /min 18 /min eCW1 ([facility]) Heart rate 97 /min 97 /min eCW1 ([facility]) Body mass index (BMI) [Ratio] 34.02 kg/m2 34.02 kg/m2 eCW1 ([facility]) Body height 62 [in_us] 62 [in_us] eCW1 ([facility]) Body weight Measured 186 [lb_av] 186 [lb_av] eC W1 ([facility]) Diastolic blood pressure 74 mm[Hg] 74 mm[Hg] eCW1 ([facility]) Systolic blood pressure 116 mm[Hg] 116 mm[Hg] e CW1 ([facility]) Body temperature 98.3 [degF] 98.3 [degF] eCW1 ( [facility]) Respiratory rate 20 /min 20 /min eCW1 ([facility]) Heart rate 87 /min 87 /min eCW1 ([facility]) Body mass index (BMI) [Ratio] 33.07 kg/m2 33.07 kg/m2 eCW1 ([facility]) Body height 62 [in_us] 62 [in_us] eCW1 ([facility]) Body weight Measured 180.8 [lb_av] 180.8 [lb_av ] eCW1 ([facility]) ID Date Data Source [id number] 10/21/2020 10:23:18 AM EST [facility] Name Value Range Interpretation Code Description Data Source(s) WEIGHT RECORDED 161.00 pounds 161.00 pounds [facility] Height 60 Inches 060 Inches [facility] Patient Treatment Plan of Care Planned Activity Planned Date Details Description Data Source (s) Acetaminophen 325 MG / Hydrocodone Bitartrate 5 MG Ora l Tablet 11/10/2020 12:00:00 AM EST eCW1 ([facility]) Acetaminophen 325 MG / Hydrocodone Bitartrate 5 MG Ora l Tablet 10/08/2020 12:00:00 AM EST eCW1 ([facility]) Acetaminophen 325 MG / Hydrocodone Bitartrate 5 MG Ora l Tablet 10/08/2020 12:00:00 AM EST eCW1 ([facility]) [place] 150 MCG 09/01/2020 12:00:00 AM EST eCW1 ([facility]) [place] 150 MCG 09/01/2020 12:00:00 AM EST eCW1 ([facility]) [place] 150 MCG 09/01/2020 12:00:00 AM EST eCW1 ([facility]) [place] 150 MCG 09/01/2020 12:00:00 AM EST eCW1 ([facility]) [place] 150 MCG 09/01/2020 12:00:00 AM EST eCW1 ([facility]) [place] 150 MCG 09/01/2020 12:00:00 AM EST eCW1 ([facility]) [place] 150 MCG 09/01/2020 12:00:00 AM EST eCW1 ([facility]) 168 HR Buprenorphine 0.01 MG/HR Transdermal Patch [BuT rans] 08/27/2020 12:00:00 AM EDT eCW1 ([facility]) 168 HR Buprenorphine 0.01 MG/HR Transdermal Patch [BuT rans] 08/27/2020 12:00:00 AM EDT eCW1 ([facility]) 168 HR Buprenorphine 0.01 MG/HR Transdermal Patch [BuT rans] 08/27/2020 12:00:00 AM EDT eCW1 ([facility]) Acetaminophen 325 MG / Hydrocodone Bitartrate 5 MG Ora l Tablet 08/27/2020 12:00:00 AM EDT eCW1 ([facility]) 168 HR Buprenorphine 0.01 MG/HR Transdermal Patch [BuT rans] 08/27/2020 12:00:00 AM EDT eCW1 ([facility]) Acetaminophen 325 MG / Hydrocodone Bitartrate 5 MG Ora l Tablet 08/27/2020 12:00:00 AM EDT eCW1 ([facility]) Acetaminophen 325 MG / Hydrocodone Bitartrate 5 MG Ora l Tablet 08/27/2020 12:00:00 AM EDT eCW1 ([facility]) 168 HR Buprenorphine 0.01 MG/HR Transdermal Patch [BuT rans] 08/27/2020 12:00:00 AM EDT eCW1 ([facility]) Acetaminophen 325 MG / Hydrocodone Bitartrate 5 MG Ora l Tablet 08/27/2020 12:00:00 AM EDT eCW1 ([facility]) 168 HR Buprenorphine 0.01 MG/HR Transdermal Patch [BuT rans] 08/27/2020 12:00:00 AM EDT eCW1 ([facility]) Acetaminophen 325 MG / Hydrocodone Bitartrate 5 MG Ora l Tablet 08/27/2020 12:00:00 AM EDT eCW1 ([facility]) 168 HR Buprenorphine 0.01 MG/HR Transdermal Patch [BuT rans] 08/27/2020 12:00:00 AM EDT eCW1 ([facility]) Acetaminophen 325 MG / Hydrocodone Bitartrate 5 MG Ora l Tablet 08/27/2020 12:00:00 AM EDT eCW1 ([facility]) 168 HR Buprenorphine 0.01 MG/HR Transdermal Patch [BuT rans] 08/27/2020 12:00:00 AM EDT eCW1 ([facility]) 168 HR Buprenorphine 0.01 MG/HR Transdermal Patch [BuT rans] 08/27/2020 12:00:00 AM EDT eCW1 ([facility]) 168 HR Buprenorphine 0.01 MG/HR Transdermal Patch [BuT rans] 08/27/2020 12:00:00 AM EDT eCW1 ([facility]) Acetaminophen 325 MG / Hydrocodone Bitartrate 5 MG Ora l Tablet 08/27/2020 12:00:00 AM EDT eCW1 ([facility]) 168 HR Buprenorphine 0.01 MG/HR Transdermal Patch [BuT rans] 08/27/2020 12:00:00 AM EDT eCW1 ([facility]) Acetaminophen 325 MG / Hydrocodone Bitartrate 5 MG Ora l Tablet 08/27/2020 12:00:00 AM EDT eCW1 ([facility]) 168 HR Buprenorphine 0.01 MG/HR Transdermal Patch [BuT rans] 08/27/2020 12:00:00 AM EDT eCW1 ([facility]) Acetaminophen 325 MG / Hydrocodone Bitartrate 5 MG Ora l Tablet 08/27/2020 12:00:00 AM EDT eCW1 ([facility]) [place] 1 08/14/2020 12:00:00 AM EDT eCW1 ([facility]) [place] 1 08/14/2020 12:00:00 AM EDT eCW1 ([facility]) [place] 1 08/14/2020 12:00:00 AM EDT eCW1 ([facility]) [place] 1 08/14/2020 12:00:00 AM EDT eCW1 ([facility]) [place] 1 08/14/2020 12:00:00 AM EDT eCW1 ([facility]) [place] 1 08/14/2020 12:00:00 AM EDT eCW1 ([facility]) [place] 1 08/14/2020 12:00:00 AM EDT eCW1 ([facility]) [place] 1 08/14/2020 12:00:00 AM EDT eCW1 ([facility]) [place] 1 08/14/2020 12:00:00 AM EDT eCW1 ([facility]) [place] 1 08/14/2020 12:00:00 AM EDT eCW1 ([facility]) [place] 1 08/14/2020 12:00:00 AM EDT eCW1 ([facility]) [place] 1 08/14/2020 12:00:00 AM EDT eCW1 ([facility]) [place] 1 08/14/2020 12:00:00 AM EDT eCW1 ([facility]) Sulfamethoxazole 400 MG / Trimethoprim 80 MG Oral Tabl et 05/05/2020 12:00:00 AM EDT eCW1 ([facility]) Sulfamethoxazole 400 MG / Trimethoprim 80 MG Oral Tabl et 05/05/2020 12:00:00 AM EDT eCW1 ([facility]) tizanidine 4 MG Oral Tablet 04/23/2020 12:00:00 AM EDT eCW1 ([facility]) Lisinopril 2.5 MG Oral Tablet 04/16/2020 12:00:00 AM EDT eCW1 ([facility]) Lisinopril 2.5 MG Oral Tablet 04/16/2020 12:00:00 AM EDT eCW1 ([facility]) Acetaminophen 325 MG / Hydrocodone Bitartrate 5 MG Ora l Tablet 02/26/2020 12:00:00 AM EDT eCW1 ([facility]) Acetaminophen 325 MG / Hydrocodone Bitartrate 5 MG Ora l Tablet 01/24/2020 12:00:00 AM EDT eCW1 ([facility]) cetirizine hydrochloride 10 MG Oral Tablet 01/07/2020 12:00:00 AM E DT eCW1 ([facility]) Nystatin 100 UNT/MG Topical Powder 01/03/2020 12:00:00 AM EST eCW1 ([facility]) Acetaminophen 325 MG / Hydrocodone Bitartrate 5 MG Ora l Tablet 12/03/2019 12:00:00 AM EST eCW1 ([facility]) Acetaminophen 325 MG / Hydrocodone Bitartrate 5 MG Ora l Tablet 10/22/2019 12:00:00 AM EST eCW1 ([facility]) Albuterol Sulfate HFA 108 (90 Base) MCG/ACT 10/22/2019 12:00:00 AM EST eCW1 ([facility]) Acetaminophen 325 MG / Hydrocodone Bitartrate 5 MG Ora l Tablet 09/21/2019 12:00:00 AM EST eCW1 ([facility]) Acetaminophen 325 MG / Hydrocodone Bitartrate 5 MG Ora l Tablet 09/21/2019 12:00:00 AM EST eCW1 ([facility])
[2020-11-17] MEDS ORDERED: ECOT81TA5 PO (02:37)
[2020-11-17] MEDS ORDERED: TIZA4TAB4 PO (02:37)
[2020-11-17 03:34] LABS: RSV AMPLIFICATION NEGATIVE (NEGATIVE)
[2020-11-17] MEDS: ALBUTEROL SULFATE 2.5 MG/0.5 ML INH NEB SOLN NEB SCH ×6 (04:00→23:18)
[2020-11-17] MEDS ORDERED: GLUCAGON INJ 1MG VIAL SC PRN (04:00)
[2020-11-17] MEDS ORDERED: NS 1,000 ML IV SCH (04:00)
[2020-11-17] MEDS ORDERED: DEXTROSE 50% 50 ML SYRINGE IV PRN (04:00)
[2020-11-17] MEDS ORDERED: GLUCOSE 4GM CHEW TABLET PO PRN (04:00)
[2020-11-17] MEDS ORDERED: ALBUTEROL 90 MCG/ACT 8GM HFA INHALER INH PRN (04:00)
--- NOTE | 2020-11-17 04:10 | HPEPDOC ---
General Date of Admission Date of Service: Nov 17, 2020 Primary Care Physician: Hiram Marcial MD Attending Physician: Hiram Marcial MD Chief Complaint The patient is a 70-year-old female admitted with a reason for visit of Syncope. History of Present Illness She reports she was in her usual state of health today. She has interstitial lung disease and is dependent on high flow oxygen (10 L/m). She got up out of bed this evening and took off her CPAP in order to go to the bathroom. She will was trying to transfer her oxygen tubing to a tank for oxygen when she got lightheaded and ended up pitching forward onto the floor. She hit the floor with the left side of her for had and has a bruise above her left eye. She reports that her blood glucose levels have been running high lately, like in the 200s. Her daughters report she's not been very careful with her diet lately. Home Medications Scheduled Albuterol Sulfate (Albuterol Sulfate) 2.5 Mg/0.5 Ml Vial.neb, 1 VIAL NEB Q4H for shortness of breath Aspirin (Ecotrin) 81 Mg Tablet.dr, 81 MG PO DAILY, (Reported) Atorvastatin Calcium (Atorvastatin Calcium) 40 Mg Tablet, 40 MG PO DAILY, (Reported) Azithromycin (Azithromycin) 250 Mg Tablet, 250 MG PO DAILY, (Reported) Bisoprolol Fumarate (Bisoprolol Fumarate) 5 Mg Tablet, 2.5 MG PO DAILY, (Reported) Bupropion HCl (Bupropion HCl) 75 Mg Tablet, 75 MG PO BID, (Reported) Cetirizine HCl (Cetirizine HCl) 10 Mg Tablet, 10 MG PO DAILY, (Reported) Cyanocobalamin (Vitamin B-12) (Vitamin B-12) 2,500 Mcg Tab.subl, 1 TAB SL DAILY, (Reported) Ergocalciferol (Vitamin D2) (Vitamin D2) 50,000 Units Cap, 50,000 UNITS PO 1XWK, (Reported) unsure what day of the week Glucosamine/D3/Boswellia Mame (Osteo Bi-Flex Tablet) 1 Each Tablet, 1 EACH PO DAILY, (Reported) Metformin HCl (Metformin HCl) 500 Mg Tablet, 500 MG PO BID, (Reported) Omeprazole (Omeprazole) 20 Mg Capsule.dr, 20 MG PO DAILY, (Reported) Potassium Chloride (Potassium Chloride) 20 Meq Tablet.er, 20 MEQ PO DAILY, (Reported) Pregabalin (Pregabalin) 75 Mg Capsule, 75 MG PO Q8H, (Reported) Spironolactone (Spironolactone) 25 Mg Tablet, 25 MG PO DAILY, (Reported) Torsemide (Torsemide) 20 Mg Tablet, 20 MG PO DAILY, (Reported) Vit A/Vit C/Vit E/Zinc/Copper (Preservision Areds Softgel) 1 Each Capsule, 1 CAP PO DAILY, (Reported) Scheduled PRN Albuterol Sulfate (Proair Hfa) 8.5 Gm Hfa.aer.ad, 2 PUFFS INH QID PRN for SOB/WHEEZING, (Reported) Epinephrine (Epipen 2-Hank) 0.3 Mg/0.3 Ml Auto.injct, 0.3 MG IM ONCE PRN for ANAPHYLAXIS, (Reported) Tizanidine HCl (Tizanidine HCl) 4 Mg Tablet, 4 MG PO QHS PRN for MUSCLE SPASMS, (Reported) Allergies Coded Allergies: bee venom protein (honey bee) (Verified Allergy, Severe, ANAPHYLAXIS, 04/17/20) meloxicam (Verified Allergy, Severe, SOB, 04/17/20) Past Medical History Medical History 1. Obstructive sleep apnea 2. Interstitial lung disease 3. Coronary artery disease 4. Essential hypertension 5. Type 2 diabetes mellitus 6. Mixed hyperlipidemia 7. Chronic low back pain 8. Gastroesophageal reflux 9. Seasonal allergies 10. Spinal stenosis of the lumbar region with neurogenic claudication 11. Cor pulmonale 12. Secondary osteoporosis 13. Bee sting allergy (anaphylactic) Surgical History 1. Appendectomy (1966) 2. C-sections (1979, 1985) 3. Bilateral foot surgery (1987) 4. Partial hysterectomy (1987) 5. Colonoscopy with polypectomy (2011) 6. Right rotator cuff tear repair (2013) 7. Coronary artery stenting (2013) 8. Lasik surgery, bilateral (2016) 9. Colonoscopy, reported diverticulosis but no polyps (2017) 10. Lung biopsy (2018) 11. Repeat lung biopsy (2019) Family History Father was known to have congestive heart failure but of "natural causes" Her mother of Alzheimer's disease Brother, of an OR Son, of complications of developmental delay Social History * Smoker: former Smoker Alcohol: Denies A-FIB/CHADSVASC A-FIB History Current/History of A-Fib/PAF?: No Review of Systems Constitutional: Denies: Chills, Fever ENT: Denies: Dysphagia, Sore Throat Skin: Reports: Bruising (where she fell tonight); Denies: Rash Pulmonary: Reports: Dyspnea (chronic); Denies: Cough, Pleuritic Chest Pain Cardiovascular: Reports: Lt Headedness (while trying to get to the bathroom this evening); Denies: Chest Pain, Palpitations Gastrointestinal: Denies: Nausea, Vomiting, Abdominal Pain, Diarrhea Genitourinary: Denies: Dysuria, Frequency Hematologic: Reports: Bruising; Denies: Bleeding Excessively Endocrine: Denies: Polydipsia, Polyphagia, Polyuria Musculoskeletal: Reports: Neck Pain Neurological: Denies: Change in speech, Confusion Psych: Reports: Mood Normal Physical Examination General Exam: Positive: Alert, Cooperative (laying comfortably on the ER stretcher when I entered the room), No Acute Distress Eye Exam: Negative: PERRLA, Conjunctiva & lids normal, Sclera icteric ENT Exam: Positive: Mucous membr. moist/pink; Negative: Atraumatic (trauma noted related to her fall) Neck Exam: Positive: Supple; Negative: Lymphadenopathy Chest Exam: Positive: Rales (very fine Velcro-like crackles throughout), Diminished Heart Exam: Positive: Rate Normal, Regular Rhythm, Normal S1, Normal S2 Abdomen Exam: Positive: Normal bowel sounds, Soft; Negative: Tenderness Extremity Exam: Negative: Cyanosis, Edema Skin Exam: Positive: Nl turgor and temperature, Other skin issue (she has an abrasion on her left cheek and a clear ecchymotic area over her left eye where she hit the ground when she fell) Neuro Exam: Positive: Normal Speech, Normal Tone Psych Exam: Positive: Mental status NL, Memory Intact Vital Signs Vital Signs Date Time Temp Pulse Resp B/P (MAP) Pulse Ox O2 Delivery O2 Flow Rate FiO2 11/17/20 00:43 96.7 53 14 95/62 92 Room Air Laboratory Data Labs 24H Laboratory Tests 2 11/17/20 00:48: Immature Granulocyte % (Auto) 0.5, Neutrophils (%) (Auto) 60.5, Lymphocytes (%) (Auto) 27.5, Monocytes (%) (Auto) 7.4H, Eosinophils (%) (Auto) 3.0, Basophils (%) (Auto) 1.1H, Neutrophils # (Auto) 7.4, Lymphocytes # (Auto) 3.4, Monocytes # (Auto) 0.9H, Eosinophils # (Auto) 0.4, Basophils # (Auto) 0.1, Nucleated Red Blood Cells % (auto) 0.0, Prothrombin Time 15.8H, Prothromb Time International Ratio 1.24, Activated Partial Thromboplast Time 26.5, Anion Gap 13, Glomerular Filtration Rate 31.4L, Calcium Level 9.4, Total Creatine Kinase 111, Creatine Kinase MB 2.6, Creatine Kinase MB Relative Index 2.34, Troponin I < 0.02, YF-Fjs-[id number]-Type Natriuretic Peptide 1566H, Thyroid Stimulating Hormone (TSH) 18.000H, Ethyl Alcohol Level < 0.003 11/17/20 02:46: Coronavirus (COVID-19)(PCR) NEGATIVE, Influenza Type A (RT-PCR) NEGATIVE, Influenza Type B (RT-PCR) NEGATIVE, Respiratory Syncytial Virus (PCR) NEGATIVE CBC/BMP Laboratory Tests 11/17/20 00:48 Assessment/Plan This is a 70-year-old woman with multiple medical comorbidities who requires admission to the hospital for ongoing evaluation of a syncopal event. Problems (1) Syncope Status: Acute Discussed With: Patient, Family with Pt Consent Problem Text: This is probably multifactorial and related to transient hypoxemia as she didn't have her oxygen changed over fast enough, orthostatic hypotension as she just got out of bed, and possibly some dehydration. We are working to rehydrate her with IV fluids, but must do so carefully cause of her history of cor pulmonale. We'll keep her on her oxygen. I will order orthostatic blood pressures to be done each morning. She will be on telemetry while she is here to evaluate for rhythm disturbances. (2) Chronic interstitial lung disease Status: Chronic Discussed With: Patient, Family with Pt Consent Problem Text: This is a long-standing diagnosis for her. She was diagnosed and managed by team at [facility] in [place] when she lived there. Now she is seeing Dr. Dickens. It should be noted that she is on daily azithromycin as a part of her treatment regimen for her interstitial lung disease; this is not an acute medication and should be continued on discharge. (3) Type 2 diabetes mellitus Status: Chronic Problem Specific Plan: Repeat Tests Problem Text: Her diabetes has been relatively well controlled. Unfortunately, her daughters report that she's had poorer dietary compliance recently. I ordered Accu-Cheks and a corrective insulin sliding scale. (4) Coronary artery disease Status: Chronic Response to Treatment: Stable Problem Text: She is not having any symptoms of angina or worsening coronary artery disease. I will keep her on telemetry to evaluate her heart rhythm because of the recent episode of syncope. (5) Obstructive sleep apnea Status: Chronic Problem Text: She is on CPAP at home with settings of 11 centimeters of water and a bleed in of 10 L/m of oxygen. She did not bring her machine to the hospital with her. I've asked respiratory therapy to set her up with one of our machines using these settings until her machine arrives. I did speak to her daughter about bringing her CPAP machine in tomorrow morning. (6) Hypertension Status: Chronic Problem Specific Plan: Monitor Clinically Problem Text: Her blood pressure is well-controlled, probably a little too low right now. We'll hold her antihypertensives while we gently rehydrate her. These will need to be added back and slowly as needed. (7) Cor pulmonale (chronic) Status: Chronic Problem Text: We need to be very gentle with the IV hydration we'll provide so we don't pressure her heart too hard and cause a flare up of her right-sided heart failure. Plan / VTE VTE Prophylaxis Ordered?: Yes Plan Advanced Directives: MOLST Form is available (she wishes to be full code. Further wishes are also documented), Health Care Proxy (HCP) (she identifies her daughter ,Sondra, as her alternate medical decision maker if she is not able to make her own decisions.) Hiram Marcial MD Nov 17, 2020 04:10
--- OUTSIDE RECORDS SUMMARY | 2020-11-17 04:21 | CCD ---
Author Author [facility] Organization [facility] Address Unknown Phone Unavailable Care Team Providers [employer] Name Role Phone ANTECOL, Carlito ABDI MD [...] Unavailable Stokes, M Iris PA-C Unavailable Unavailable Stoeks, M Iris PA-C Unavailable Unavailable Stokes, M [...] is protected by Article 27-F of the [facility] Public Health law. If you continue you may have access to information: Regarding HIV / AIDS; Provided by facilities licensed or operated by the [facility] Office of Mental Health; or Provided by the [facility] Office for People With Developmental Disabilities. If such information is present, then the following [facility] mandated warning applies: This information has [...] law may result in a fine or long term sentence or both. A general authorization for the release of medical or other information is NOT sufficient authorization for further disc losure. Allergies and Adverse Reactions Type Description Substance Reaction Status Data Source(s ) No Known Allergies No Known Allergies [facility] No Known Drug Allergies No Known Drug Allergies [facility] Drug allergy Latex Gloves Drug allergy Rash/ITCHING Active eCW1 ([facility]) Bee Stings Bee Stings Bee Stings Anaphylaxis Active eCW1 ([facility]) Encounters Encounter Providers Location Date Indications Data Source(s ) [place] [address] [facility] [address] 11/10/2020 12:00:00 AM EST eCW1 ([facility]) Outpatient Attender: Iris GILonsultant: PCP NO 10/17/2020 01:13:00 PM EST - 10/17/2020 02:13:00 PM EST [facility] Outpatient Attender: Iris Clineultant: PCP NO 10/10/2020 07:57:57 AM EST - 10/13/2020 11:30:00 AM EST [facility] Patient discharged. Unknown [address] [facility] [address] 10/07/2020 12:00:00 AM EST eCW1 ([facility]) Outpatient Attender: Iris Stokes PA-C 04/2020 01:33:00 PM EST - 10/06/2020 01:33:00 PM [facility] Unknown [address] [facility] [address] 10/01/2020 12:00:00 AM EST eCW1 ([facility]) Outpatient Attender: Iris Stokes PA-C 02/2020 03:10:00 PM EST - 09/04/2020 03:10:00 PM [facility] Outpatient Attender: Iris Stokes PA-C Family Practice 1102/2020 02:00:00 PM EST MEDENT ([facility]) [place] [address] [facility] [address] 08/29/2020 12:00:00 AM EDT eCW1 ([facility]) Outpatient Attender: Amie Clarke/Werner/Bladimir/Kun ndl 08/27/2020 01:00:00 PM EDT MEDENT ([facility]) [place]patient [address] [facility] [address] 08/27/2020 12:00:00 AM EDT eCW1 ([facility]) [place] [address] [facility] [address] 08/27/2020 12:00:00 AM EDT eCW1 ([facility]) [place] [address] [facility] [address] 08/27/2020 12:00:00 AM EDT eCW1 ([facility]) Outpatient Attender: Rebecca CARRASCO Main Office 08/22/2020 01:45:0 0 PM EDT MEDENT ([facility]) [place] [address] [facility] [address] 08/22/2020 12:00:00 AM EDT eCW1 ([facility]) [place] [address] [facility] [address] 08/21/2020 12:00:00 AM EDT eCW1 ([facility]) [place] [address] [facility] [address] 08/18/2020 12:00:00 AM EDT eCW1 ([facility]) [place] [address] [facility] [place] [address] 08/11/2020 12:00:00 AM EDT eCW1 ([facility]) Unknown [address] [facility] [place] [address] 08/11/2020 12:00:00 AM EDT eCW1 ([facility]) Unknown [address] [facility] [address] 08/08/2020 12:00:00 AM EDT eCW1 ([facility]) Outpatient [address] [facility] [address] 08/07/2020 12:00:00 AM EDT eCW1 ([facility]) Unknown [address] [facility] [address] 08/01/2020 12:00:00 AM EDT eCW1 [facility]) Unknown [address] [facility] [address] 07/22/2020 12:00:00 AM EDT eCW1 ([facility]) Outpatient Attender: JIN WEAVER MD Main Office 05/15/2020 12:30:00 PM EDT SHERRON ([facility]) (TCM) Transition of Care Visit [address] [place] [address] 05/05/2020 12:00:00 AM EDT eCW1 ([facility]) Unknown [address] [facility] [address] 04/15/2020 12:00:00 AM EDT eCW1 ([facility]) TeleMedicine Phone E/M by Phys 11-20 Min [address] [place] [address] 04/10/2020 12:00:00 AM EDT eCW1 ([facility]) Unknown [address] [facility] [address] 04/07/2020 12:00:00 AM EDT eCW1 ([facility]) [facility] Pain Center [address] [place] [address] 03/26/2020 12:00:00 AM EDT eCW1 ([facility]) Outpatient [address] [facility] [address] 03/21/2020 12:00:00 AM EDT eCW1 [facility]) Outpatient Attender: Amie Clarke/[place]/Bladimir/Kun ndl 03/19/2020 02:30:00 PM EDT MEDENT ([facility] Pain Center [address] [place] [phone] 03/14/2020 12:00:00 AM EDT eCW1 ([facility]) [facility] Pain Center [address] [place] [address] 03/13/2020 12:00:00 AM EDT eCW1 ([facility]) [facility] Pain Center [address] [place] [phone] 03/11/2020 12:00:00 AM EDT eCW1 ([facility]) [facility] [address] [place] [address] [place] [address] 03/07/2020 12:00:00 AM EDT eCW1 ([facility]) [facility] [address] [place] [address] [place] [address] 03/04/2020 12:00:00 AM EDT eCW1 ([facility]) [facility] [address] [place] [address], [place] [address] 02/26/2020 12:00:00 AM EDT eCW1 ([facility]) [facility] [address] [place] [address], [place] [address] 02/26/2020 12:00:00 AM EDT eCW1 ([facility]) [facility] Pain Center [address] [place] [phone] 02/19/2020 12:00:00 AM EDT eCW1 ([facility]) [facility] Pain Center [address] [place] [address] 02/18/2020 12:00:00 AM EDT eCW1 ([facility]) Outpatient Attender: Amie Clarke/[place]er[place]/Bladimir/Kun ndl 01/21/2020 11:00:00 AM EDT MEDENT ([facility]) [facility] [address] [place] [address], [place] [address] 01/21/2020 12:00:00 AM EDT eCW1 ([facility]) [address] [place] [address] 01/21/2020 12:00:00 AM EDT eCW1 ([facility]) [facility] Pain Center [address] [place] [phone] 01/17/2020 12:00:00 AM EDT eCW1 ([facility]) [facility] Pain Center [address] [place] [address] 01/15/2020 12:00:00 AM EDT eCW1 ([facility]) [facility] Resident [address] [place] [phone] 01/07/2020 12:00:00 AM EDT eCW1 ([facility]) Outpatient 01/03/2020 03:10:00 PM EST [facility] [address] [address] 01/03/2020 12:00:00 AM EST eCW1 ([facility]) [address] [place] [address] 01/03/2020 12:00:00 AM EST eCW1 ([facility]) [address] [place] [address] 01/03/2020 12:00:00 AM EST eCW1 ([facility]) [facility] Pain Center [address] [place] [phone] 01/01/2020 12:00:00 AM EST eCW1 ([facility]) [facility] Pain Center [address] [place] [phone] 12/24/2019 12:00:00 AM EST eCW1 ([facility]) [facility] Pain Center [address] [place] [phone] 12/14/2019 12:00:00 AM EST eCW1 ([facility]) [address] [place] [address] 12/07/2019 12:00:00 AM EST eCW1 ([facility]) [facility] [place] [address] [facility] [place] [address] 12/03/2019 12:00:00 AM EST eCW1 ([facility]) [facility] Resident [address] [place] [phone] 12/03/2019 12:00:00 AM EST eCW1 ([facility]) [facility] Pain Center [address] [place] [phone] 11/30/2019 12:00:00 AM EST eCW1 ([facility]) Outpatient Attender: Amie Clarke/Werner/Bladimir/Kun ndbrandy 11/26/2019 08:00:00 AM EST MEDENT ([facility] [address] [address] 11/20/2019 12:00:00 AM EST eCW1 ([facility]) [facility] Pain Center [address] [place] [phone] 11/16/2019 12:00:00 AM EST eCW1 ([facility]) [facility] Pain Center [address] [place] [phone] 11/16/2019 12:00:00 AM EST eCW1 ([facility]) [facility] Pain Center [address] [place] [phone] 11/13/2019 12:00:00 AM EST eCW1 ([facility]) Outpatient 11/09/2019 11:48:00 AM EST [facility] Outpatient Attender: Amie Clarke/Werner/Bladimir/Kun ndbrandy 11/01/2019 08:30:00 AM EST MEDENT ([facility] [address] [place] [phone] 10/22/2019 12:00:00 AM EST eCW1 ([facility]) [facility] Pain Center [address] [place] [phone] 10/19/2019 12:00:00 AM EST eCW1 ([facility]) [facility] Pain Center [address] [place] [phone] 10/19/2019 12:00:00 AM EST eCW1 ([facility]) [address] [address] 10/18/2019 12:00:00 AM EST eCW1 ([facility]) [address] [address] 10/11/2019 12:00:00 AM EST eCW1 [facility] [address] [address] 10/09/2019 12:00:00 AM EST eCW1 ([facility]) [address] [address] 10/04/2019 12:00:00 AM EST eCW1 ([facility]) [address] [place] [address] 10/04/2019 12:00:00 AM EST eCW1 ([facility]) [address] [address] 09/24/2019 12:00:00 AM EST eCW1 ([facility]) [address] [address] 09/21/2019 12:00:00 AM EST eCW1 ([facility]) [address] [address] 09/19/2019 12:00:00 AM EST eCW1 ([facility]) [address] [address] 09/19/2019 12:00:00 AM EST [facility]CW[facility] Immunizations Vaccine Date Status Description Data Source(s) New in 2011. IIV4 09/04/2020 02:30:00 PM EST completed MEDENT ([facility]) Medications Medication Brand Name Start Date [...] active Hydrocodone-Acetaminophen 5-325 MG eCW1 ([facility]) 20 mg 11/10/2020 12:00:00 AM EST tablet [...] active Hydrocodone-Acetaminophen 5-325 MG eCW1 ([facility]) Acetaminophen 325 MG / Hydrocodone Alxeus trate 5 MG Oral Tablet Hydrocodone- Acetaminophen 5-325 MG Hydrocodone-Acetaminophen 5-325 MG 10/08/2020 12:00:00 AM EST 1.0 {tablet_as_needed} active Hydrocodone-Acetaminophen 5-325 MG eCW1 ([facility]) Oxygen Concentrator 10L With Tubing And Mask, ALL Supplies 10/06/2020 12:00:00 AM EST active MEDENT ([facility]) Cholecalciferol 08401 UNT Oral Tablet Vitamin D3 Ultra Poten cy 10/06/2020 12:00:00 AM EST ORAL active M EDENT ([facility]) 20 mg 09/30/2020 12:00:00 AM EST [...] 09/12/2020 12:00:00 AM EST ORAL active MEDENT ([facility]) Loratadine 10 MG Oral Tablet [Claritin] Claritin 09/04/2020 12:00:0 0 AM EST ORAL active MEDENT ([facility]) Belbuca 150 MCG Belbuca 150 MCG 09/01/2020 12:00:00 AM EST active Belbuca 150 MCG eCW1 ([facility]) Belbuca 150 MCG Belbuca 150 MCG 09/01/2020 12:00:00 AM EST active Belbuca 150 MCG eCW1 ([facility]) Belbuca 150 MCG Belbuca 150 MCG 09/01/2020 12:00:00 AM EST active Belbuca 150 MCG eCW1 ([facility]) Belbuca 150 MCG Belbuca 150 MCG 09/01/2020 12:00:00 AM EST active Belbuca 150 MCG eCW1 ([facility]) Belbuca 150 MCG Belbuca 150 MCG 09/01/2020 12:00:00 AM EST active Belbuca 150 MCG eCW1 ([facility]) Belbuca 150 MCG Belbuca 150 MCG 09/01/2020 12:00:00 AM EST active Belbuca 150 MCG eCW1 ([facility]) Belbuca 150 MCG Belbuca 150 MCG 09/01/2020 12:00:00 AM EST active Belbuca 150 MCG eCW1 ([facility]) Acetaminophen 325 MG / Hydrocodone Alexus trate 5 MG Oral Tablet Hydrocodone- Acetaminophen 5-325 MG Hydrocodone-Acetaminophen 5-325 MG 08/27/2020 12:00:00 AM EDT 1.0 {tablet_as_needed} active Hydrocodone-Acetaminophen 5-325 MG eCW1 ([facility]) 168 HR Buprenorphine 0.01 MG/HR Transdermal Patch [BuT rans] Butrans 10 MCG/HR Butrans 10 MCG/HR 08/27/2020 12:00:00 AM EDT 1.0 {patch_to_skin} active Butrans 10 MCG/HR eCW1 ([facility]) Acetaminophen 325 MG / Hydrocodone Alexus trate 5 MG Oral Tablet Hydrocodone- Acetaminophen 5-325 MG Hydrocodone-Acetaminophen 5-325 MG 08/27/2020 12:00:00 AM EDT 1.0 {tablet_as_needed} active Hydrocodone-Acetaminophen 5-325 MG eCW1 ([facility]) Acetaminophen 325 MG / Hydrocodone Alexus trate 5 MG Oral Tablet Hydrocodone- Acetaminophen 5-325 MG Hydrocodone-Acetaminophen 5-325 MG 08/27/2020 12:00:00 AM EDT 1.0 {tablet_as_needed} active Hydrocodone-Acetaminophen 5-325 MG eCW1 ([facility]) 168 HR Buprenorphine 0.01 MG/HR Transdermal Patch [BuT rans] Butrans 10 MCG/HR Butrans 10 MCG/HR 08/27/2020 12:00:00 AM EDT 1.0 {patch_to_skin} active Butrans 10 MCG/HR eCW1 ([facility]) Acetaminophen 325 MG / Hydrocodone Alexus trate 5 MG Oral Tablet Hydrocodone- Acetaminophen 5-325 MG Hydrocodone-Acetaminophen 5-325 MG 08/27/2020 12:00:00 AM EDT 1.0 {tablet_as_needed} active Hydrocodone-Acetaminophen 5-325 MG eCW1 ([facility]) 168 HR Buprenorphine 0.01 MG/HR Transdermal Patch [BuT rans] Butrans 10 MCG/HR Butrans 10 MCG/HR 08/27/2020 12:00:00 AM EDT 1.0 {patch_to_skin} active Butrans 10 MCG/HR eCW1 ([facility]) Acetaminophen 325 MG / Hydrocodone Alexus trate 5 MG Oral Tablet Hydrocodone- Acetaminophen 5-325 MG Hydrocodone-Acetaminophen 5-325 MG 08/27/2020 12:00:00 AM EDT 1.0 {tablet_as_needed} active Hydrocodone-Acetaminophen 5-325 MG eCW1 ([facility]) Acetaminophen 325 MG / Hydrocodone Alexus trate 5 MG Oral Tablet Hydrocodone- Acetaminophen 5-325 MG Hydrocodone-Acetaminophen 5-325 MG 08/27/2020 12:00:00 AM EDT 1.0 {tablet_as_needed} active Hydrocodone-Acetaminophen 5-325 MG eCW1 ([facility]) Acetaminophen 325 MG / Hydrocodone Alexus trate 5 MG Oral Tablet Hydrocodone- Acetaminophen 5-325 MG Hydrocodone-Acetaminophen 5-325 MG 08/27/2020 12:00:00 AM EDT 1.0 {tablet_as_needed} active Hydrocodone-Acetaminophen 5-325 MG eCW1 ([facility]) 168 HR Buprenorphine 0.01 MG/HR Transdermal Patch [BuT rans] Butrans 10 MCG/HR Butrans 10 MCG/HR 08/27/2020 12:00:00 AM EDT 1.0 {patch_to_skin} active Butrans 10 MCG/HR eCW1 ([facility]) 168 HR Buprenorphine 0.01 MG/HR Transdermal Patch [BuT rans] Butrans 10 MCG/HR Butrans 10 MCG/HR 08/27/2020 12:00:00 AM EDT 1.0 {patch_to_skin} active Butrans 10 MCG/HR eCW1 ([facility]) 168 HR Buprenorphine 0.01 MG/HR Transdermal Patch [BuT rans] Butrans 10 MCG/HR Butrans 10 MCG/HR 08/27/2020 12:00:00 AM EDT 1.0 {patch_to_skin} active Butrans 10 MCG/HR eCW1 ([facility]) 168 HR Buprenorphine 0.01 MG/HR Transdermal Patch [BuT rans] Butrans 10 MCG/HR Butrans 10 MCG/HR 08/27/2020 12:00:00 AM EDT 1.0 {patch_to_skin} active Butrans 10 MCG/HR eCW1 ([facility]) 168 HR Buprenorphine 0.01 MG/HR Transdermal Patch [BuT rans] Butrans 10 MCG/HR Butrans 10 MCG/HR 08/27/2020 12:00:00 AM EDT 1.0 {patch_to_skin} active Butrans 10 MCG/HR eCW1 ([facility]) Prednisone 10 MG Oral Tablet Prednisone 08/27/2020 12:00:00 AM EDT ORAL completed MEDENT ([facility] ) Acetaminophen 325 MG / Hydrocodone Alexus trate 5 MG Oral Tablet Hydrocodone- Acetaminophen 5-325 MG Hydrocodone-Acetaminophen 5-325 MG 08/27/2020 12:00:00 AM EDT 1.0 {tablet_as_needed} active Hydrocodone-Acetaminophen 5-325 MG eCW1 ([facility]) 168 HR Buprenorphine 0.01 MG/HR Transdermal Patch [BuT rans] Butrans 10 MCG/HR Butrans 10 MCG/HR 08/27/2020 12:00:00 AM EDT 1.0 {patch_to_skin} active Butrans 10 MCG/HR eCW1 ([facility]) 168 HR Buprenorphine 0.01 MG/HR Transdermal Patch [BuT rans] Butrans 10 MCG/HR Butrans 10 MCG/HR 08/27/2020 12:00:00 AM EDT 1.0 {patch_to_skin} active Butrans 10 MCG/HR eCW1 ([facility]) Acetaminophen 325 MG / Hydrocodone Alexus trate 5 MG Oral Tablet Hydrocodone- Acetaminophen 5-325 MG Hydrocodone-Acetaminophen 5-325 MG 08/27/2020 12:00:00 AM EDT 1.0 {tablet_as_needed} active Hydrocodone-Acetaminophen 5-325 MG eCW1 ([facility]) 168 HR Buprenorphine 0.01 MG/HR Transdermal Patch [BuT rans] Butrans 10 MCG/HR Butrans 10 MCG/HR 08/27/2020 12:00:00 AM EDT 1.0 {patch_to_skin} active Butrans 10 MCG/HR eCW1 ([facility]) 168 HR Buprenorphine 0.01 MG/HR Transdermal Patch [BuT rans] Butrans 10 MCG/HR Butrans 10 MCG/HR 08/27/2020 12:00:00 AM EDT 1.0 {patch_to_skin} active Butrans 10 MCG/HR eCW1 ([facility]) Albuterol 0.83 MG/ML Inhalant Solution [...] 08/21/2020 12:00:00 AM EDT ORAL active MEDENT [facility] Rolling Walker 1 K 08/14/2020 12:00:00 AM EDT active Rolling Walker 1 eCW1 ([facility]) Rolling Walker 1 K 08/14/2020 12:00:00 AM EDT active Rolling Walker 1 eCW1 ([facility]) Rolling Walker 1 K 08/14/2020 12:00:00 AM EDT active Rolling Walker 1 eCW1 ([facility]) Rolling Walker 1 K 08/14/2020 12:00:00 AM EDT active Rolling Walker 1 eCW1 ([facility]) Rolling Walker 1 K 08/14/2020 12:00:00 AM EDT active Rolling Walker 1 eCW1 ([facility]) Rolling Walker 1 UNK 08/14/2020 12:00:00 AM EDT active Rolling Walker 1 eCW1 ([facility]) Rolling Walker 1 UNK 08/14/2020 12:00:00 AM EDT active Rolling Walker 1 eCW1 ([facility]) Rolling Walker 1 UNK 08/14/2020 12:00:00 AM EDT active Rolling Walker 1 eCW1 ([facility]) Rolling Walker 1 UNK 08/14/2020 12:00:00 AM EDT active Rolling Walker 1 eCW1 ([facility]) Rolling Walker 1 UNK 08/14/2020 12:00:00 AM EDT active Rolling Walker 1 eCW1 ([facility]) Rolling Walker 1 UNK 08/14/2020 12:00:00 AM EDT active Rolling Walker 1 eCW1 ([facility]) Rolling Walker 1 UNK 08/14/2020 12:00:00 AM EDT active Rolling Walker 1 eCW1 ([facility]) Rolling Walker 1 UNK 08/14/2020 12:00:00 AM EDT active Rolling Walker 1 eCW1 ([facility]) Potassium Chloride 20 MEQ Extended Relea se Oral Tablet Potassium Chloride ER 20 MEQ Potassium Chloride ER 20 MEQ 08/07/2020 12:00:00 AM EDT 1.0 {tablet_with_food} active Potassium Chl oride ER 20 MEQ eCW1 ([facility]) Potassium Chloride 20 MEQ Extended Relea se Oral Tablet Potassium Chloride ER 20 MEQ Potassium Chloride ER 20 MEQ 08/07/2020 12:00:00 AM EDT 1.0 {tablet_with_food} active Potassium Chl oride ER 20 MEQ eCW1 ([facility]) Potassium Chloride 20 MEQ Extended Relea se Oral Tablet Potassium Chloride ER 20 MEQ Potassium Chloride ER 20 MEQ 08/07/2020 12:00:00 AM EDT 1.0 {tablet_with_food} active Potassium Chl oride ER 20 MEQ eCW1 ([facility]) Potassium Chloride 20 MEQ Extended Relea se Oral Tablet Potassium Chloride ER 20 MEQ Potassium Chloride ER 20 MEQ 08/07/2020 12:00:00 AM EDT 1.0 {tablet_with_food} active Potassium Chl oride ER 20 MEQ eCW1 ([facility]) Potassium Chloride 20 MEQ Extended Relea se Oral Tablet Potassium Chloride ER 20 MEQ Potassium Chloride ER 20 MEQ 08/07/2020 12:00:00 AM EDT 1.0 {tablet_with_food} active Potassium Chl oride ER 20 MEQ eCW1 ([facility]) Potassium Chloride 20 MEQ Extended Relea se Oral Tablet Potassium Chloride ER 20 MEQ Potassium Chloride ER 20 MEQ 08/07/2020 12:00:00 AM EDT 1.0 {tablet_with_food} active Potassium Chl oride ER 20 MEQ eCW1 ([facility]) Potassium Chloride 20 MEQ Extended Relea se Oral Tablet Potassium Chloride ER 20 MEQ Potassium Chloride ER 20 MEQ 08/07/2020 12:00:00 AM EDT 1.0 {tablet_with_food} active Potassium Chl oride ER 20 MEQ eCW1 ([facility]) Potassium Chloride 20 MEQ Extended Relea se Oral Tablet Potassium Chloride ER 20 MEQ Potassium Chloride ER 20 MEQ 08/07/2020 12:00:00 AM EDT 1.0 {tablet_with_food} active Potassium Chl oride ER 20 MEQ eCW1 ([facility]) Potassium Chloride 20 MEQ Extended Relea se Oral Tablet Potassium Chloride ER 20 MEQ Potassium Chloride ER 20 MEQ 08/07/2020 12:00:00 AM EDT 1.0 {tablet_with_food} active Potassium Chl oride ER 20 MEQ eCW1 ([facility]) Potassium Chloride 20 MEQ Extended Relea se Oral Tablet Potassium Chloride ER 20 MEQ Potassium Chloride ER 20 MEQ 08/07/2020 12:00:00 AM EDT 1.0 {tablet_with_food} active Potassium Chl oride ER 20 MEQ eCW1 ([facility]) Potassium Chloride 20 MEQ Extended Relea se Oral Tablet Potassium Chloride ER 20 MEQ Potassium Chloride ER 20 MEQ 08/07/2020 12:00:00 AM EDT 1.0 {tablet_with_food} active Potassium Chl oride ER 20 MEQ eCW1 ([facility]) Potassium Chloride 20 MEQ Extended Relea se Oral Tablet Potassium Chloride ER 20 MEQ Potassium Chloride ER 20 MEQ 08/07/2020 12:00:00 AM EDT 1.0 {tablet_with_food} active Potassium Chl oride ER 20 MEQ eCW1 ([facility]) Potassium Chloride 20 MEQ Extended Relea se Oral Tablet Potassium Chloride ER 20 MEQ Potassium Chloride ER 20 MEQ 08/07/2020 12:00:00 AM EDT 1.0 {tablet_with_food} active Potassium Chl oride ER 20 MEQ eCW1 ([facility]) Potassium Chloride 20 MEQ Extended Relea se Oral Tablet Potassium Chloride ER 20 MEQ Potassium Chloride ER 20 MEQ 08/07/2020 12:00:00 AM EDT 1.0 {tablet_with_food} active Potassium Chl oride ER 20 MEQ eCW1 ([facility]) Potassium Chloride 20 MEQ Extended Relea se Oral Tablet Potassium Chloride ER 20 MEQ Potassium Chloride ER 20 MEQ 08/07/2020 12:00:00 AM EDT 1.0 {tablet_with_food} active Potassium Chl oride ER 20 MEQ eCW1 ([facility]) icosapent ethyl 1000 MG Oral Capsule [Vascepa] [...] EDT ORAL completed MEDENT ([facility]) Preservision Areds 2 05/14/2020 12:00:00 AM EDT ORAL active [facility]ENT ([facility]) 12 HR Bupropion Hydrochloride 150 MG Extended Release Oral Tablet Bupropion HCL ER (SR) 05/14/2020 12:00:00 AM EDT ORAL active MEDENT ([facility]) Metformin hydrochloride 500 MG Oral Tablet Metformin [...] active Sulfamethoxazole-Trimethoprim 400-80 MG eCW1 ([facility]) Sulfamethoxazole 400 MG / Trimethoprim 8 0 MG Oral Tablet Sulfamethoxazole- Trimethoprim 400-80 MG Sulfamethoxazole-Trimethoprim 400-80 MG 05/05/2020 12:00:00 AM EDT 1.0 {tablet} active Sulfamethoxazole-Trimethoprim 400-80 MG eCW1 ([facility]) Albuterol 0.83 MG/ML Inhalant Solution Albuterol Sulfa te (2.5 MG/3ML) 0.083% Albuterol Sulfate (2.5 MG/3ML) 0.083% 04/25/2020 12:00:00 AM EDT 3.0 {ml} active Albuterol Sulfate (2.5 MG/3M L) 0.083% eCW1 ([facility]) Albuterol 0.83 MG/ML Inhalant Solution Albuterol Sulfa te (2.5 MG/3ML) 0.083% Albuterol Sulfate (2.5 MG/3ML) 0.083% 04/25/2020 12:00:00 AM EDT 3.0 {ml} active Albuterol Sulfate (2.5 MG/3M L) 0.083% eCW1 ([facility]) Albuterol 0.83 MG/ML Inhalant Solution Albuterol Sulfa te (2.5 MG/3ML) 0.083% Albuterol Sulfate (2.5 MG/3ML) 0.083% 04/25/2020 12:00:00 AM EDT 3.0 {ml} active Albuterol Sulfate (2.5 MG/3M L) 0.083% eCW1 ([facility]) Albuterol 0.83 MG/ML Inhalant Solution Albuterol Sulfa te (2.5 MG/3ML) 0.083% Albuterol Sulfate (2.5 MG/3ML) 0.083% 04/25/2020 12:00:00 AM EDT 3.0 {ml} active Albuterol Sulfate (2.5 MG/3M L) 0.083% eCW1 ([facility]) Albuterol 0.83 MG/ML Inhalant Solution Albuterol Sulfa te (2.5 MG/3ML) 0.083% Albuterol Sulfate (2.5 MG/3ML) 0.083% 04/25/2020 12:00:00 AM EDT 3.0 {ml} active Albuterol Sulfate (2.5 MG/3M L) 0.083% eCW1 ([facility]) Albuterol 0.83 MG/ML Inhalant Solution Albuterol Sulfa te (2.5 MG/3ML) 0.083% Albuterol Sulfate (2.5 MG/3ML) 0.083% 04/25/2020 12:00:00 AM EDT 3.0 {ml} active Albuterol Sulfate (2.5 MG/3M L) 0.083% eCW1 ([facility]) Albuterol 0.83 MG/ML Inhalant Solution Albuterol Sulfa te (2.5 MG/3ML) 0.083% Albuterol Sulfate (2.5 MG/3ML) 0.083% 04/25/2020 12:00:00 AM EDT 3.0 {ml} active Albuterol Sulfate (2.5 MG/3M L) 0.083% eCW1 ([facility]) Albuterol 0.83 MG/ML Inhalant Solution Albuterol Sulfa te (2.5 MG/3ML) 0.083% Albuterol Sulfate (2.5 MG/3ML) 0.083% 04/25/2020 12:00:00 AM EDT 3.0 {ml} active Albuterol Sulfate (2.5 MG/3M L) 0.083% eCW1 ([facility]) Albuterol 0.83 MG/ML Inhalant Solution Albuterol Sulfa te (2.5 MG/3ML) 0.083% Albuterol Sulfate (2.5 MG/3ML) 0.083% 04/25/2020 12:00:00 AM EDT 3.0 {ml} active Albuterol Sulfate (2.5 MG/3M L) 0.083% eCW1 ([facility]) Albuterol 0.83 MG/ML Inhalant Solution Albuterol Sulfa te (2.5 MG/3ML) 0.083% Albuterol Sulfate (2.5 MG/3ML) 0.083% 04/25/2020 12:00:00 AM EDT 3.0 {ml} active Albuterol Sulfate (2.5 MG/3M L) 0.083% eCW1 ([facility]) Albuterol 0.83 MG/ML Inhalant Solution Albuterol Sulfa te (2.5 MG/3ML) 0.083% Albuterol Sulfate (2.5 MG/3ML) 0.083% 04/25/2020 12:00:00 AM EDT 3.0 {ml} active Albuterol Sulfate (2.5 MG/3M L) 0.083% eCW1 ([facility]) Albuterol 0.83 MG/ML Inhalant Solution Albuterol Sulfa te (2.5 MG/3ML) 0.083% Albuterol Sulfate (2.5 MG/3ML) 0.083% 04/25/2020 12:00:00 AM EDT 3.0 {ml} active Albuterol Sulfate (2.5 MG/3M L) 0.083% eCW1 ([facility]) Albuterol 0.83 MG/ML Inhalant Solution Albuterol Sulfa te (2.5 MG/3ML) 0.083% Albuterol Sulfate (2.5 MG/3ML) 0.083% 04/25/2020 12:00:00 AM EDT 3.0 {ml} active Albuterol Sulfate (2.5 MG/3M L) 0.083% eCW1 ([facility]) Albuterol 0.83 MG/ML Inhalant Solution Albuterol Sulfa te (2.5 MG/3ML) 0.083% Albuterol Sulfate (2.5 MG/3ML) 0.083% 04/25/2020 12:00:00 AM EDT 3.0 {ml} active Albuterol Sulfate (2.5 MG/3M L) 0.083% eCW1 ([facility]) Albuterol 0.83 MG/ML Inhalant Solution Albuterol Sulfa te (2.5 MG/3ML) 0.083% Albuterol Sulfate (2.5 MG/3ML) 0.083% 04/25/2020 12:00:00 AM EDT 3.0 {ml} active Albuterol Sulfate (2.5 MG/3M L) 0.083% eCW1 ([facility]) Albuterol 0.83 MG/ML Inhalant Solution Albuterol Sulfa te (2.5 MG/3ML) 0.083% Albuterol Sulfate (2.5 MG/3ML) 0.083% 04/25/2020 12:00:00 AM EDT 3.0 {ml} active Albuterol Sulfate (2.5 MG/3M L) 0.083% eCW1 ([facility]) Albuterol 0.83 MG/ML Inhalant Solution Albuterol Sulfa te (2.5 MG/3ML) 0.083% Albuterol Sulfate (2.5 MG/3ML) 0.083% 04/25/2020 12:00:00 AM EDT 3.0 {ml} active Albuterol Sulfate (2.5 MG/3M L) 0.083% eCW1 ([facility]) 0.3 ML Epinephrine 1 MG/ML Auto-Injector [Epipen] EpiP en 2-Hank 0.3 MG/0.3ML EpiPen 2-Hank 0.3 MG/0.3ML 04/23/2020 12:00:00 AM EDT active EpiPen 2-Hank 0.3 MG/0.3ML eCW1 ([facility]) Furosemide 20 MG Oral Tablet Furosemide 20 MG 04/23/2020 12:00:00 AM E DT active Furosemide 20 MG eCW1 ([facility]) Omeprazole 20 MG Delayed Release Oral Capsule Omeprazole 20 MG 04/23/2020 12:00:00 AM EDT active Omeprazo le 20 MG eCW1 ([facility]) 0.3 ML Epinephrine 1 MG/ML Auto-Injector [Epipen] EpiP en 2-Hank 0.3 MG/0.3ML EpiPen 2-Hank 0.3 MG/0.3ML 04/23/2020 12:00:00 AM EDT active EpiPen 2-Hank 0.3 MG/0.3ML eCW1 ([facility]) 0.3 ML Epinephrine 1 MG/ML Auto-Injector [Epipen] EpiP en 2-Hank 0.3 MG/0.3ML EpiPen 2-Hank 0.3 MG/0.3ML 04/23/2020 12:00:00 AM EDT active EpiPen 2-Hank 0.3 MG/0.3ML eCW1 ([facility]) Furosemide 20 MG Oral Tablet Furosemide 20 MG 04/23/2020 12:00:00 AM E DT active Furosemide 20 MG eCW1 ([facility]) Omeprazole 20 MG Delayed Release Oral Capsule Omeprazole 20 MG 04/23/2020 12:00:00 AM EDT active Omeprazo le 20 MG eCW1 ([facility]) tizanidine 4 MG Oral Tablet Tizanidine HCl 4 MG Tizanidine H Cl 4 MG 04/23/2020 12:00:00 AM EDT active Tizanidi ne HCl 4 MG eCW1 ([facility]) Omeprazole 20 MG Delayed Release Oral Capsule Omeprazole 20 MG 04/23/2020 12:00:00 AM EDT active Omeprazo le 20 MG eCW1 ([facility]) Sulfamethoxazole 400 MG / Trimethoprim 8 0 MG Oral Tablet Sulfamethoxazole- Trimethoprim 400-80 MG Sulfamethoxazole-Trimethoprim 400-80 MG 04/23/2020 12:00:00 AM EDT 1.0 {tablet} suspended Sulfamethoxazole-Trimethoprim 400-80 MG eCW1 ([facility]) tizanidine 4 MG Oral Tablet Tizanidine HCl 4 MG Tizanidine H Cl 4 MG 04/23/2020 12:00:00 AM EDT active Tizanidi ne HCl 4 MG eCW1 ([facility]) 0.3 ML Epinephrine 1 MG/ML Auto-Injector [Epipen] EpiP en 2-Hank 0.3 MG/0.3ML EpiPen 2-Hank 0.3 MG/0.3ML 04/23/2020 12:00:00 AM EDT active EpiPen 2-Hank 0.3 MG/0.3ML eCW1 ([facility]) 0.3 ML Epinephrine 1 MG/ML Auto-Injector [Epipen] EpiP en 2-Hank 0.3 MG/0.3ML EpiPen 2-Hank 0.3 MG/0.3ML 04/23/2020 12:00:00 AM EDT active EpiPen 2-Hank 0.3 MG/0.3ML eCW1 ([facility]) Furosemide 20 MG Oral Tablet Furosemide 20 MG 04/23/2020 12:00:00 AM E DT active Furosemide 20 MG eCW1 ([facility]) Omeprazole 20 MG Delayed Release Oral Capsule Omeprazole 20 MG 04/23/2020 12:00:00 AM EDT active Omeprazo le 20 MG eCW1 ([facility]) Omeprazole 20 MG Delayed Release Oral Capsule Omeprazole 20 MG 04/23/2020 12:00:00 AM EDT active Omeprazo le 20 MG eCW1 ([facility]) tizanidine 4 MG Oral Tablet Tizanidine HCl 4 MG Tizanidine H Cl 4 MG 04/23/2020 12:00:00 AM EDT active Tizanidi ne HCl 4 MG eCW1 ([facility]) Omeprazole 20 MG Delayed Release Oral Capsule Omeprazole 20 MG 04/23/2020 12:00:00 AM EDT active Omeprazo le 20 MG eCW1 ([facility]) tizanidine 4 MG Oral Tablet Tizanidine HCl 4 MG Tizanidine H Cl 4 MG 04/23/2020 12:00:00 AM EDT active Tizanidi ne HCl 4 MG eCW1 ([facility]) Omeprazole 20 MG Delayed Release Oral Capsule Omeprazole 20 MG 04/23/2020 12:00:00 AM EDT active Omeprazo le 20 MG eCW1 ([facility]) 0.3 ML Epinephrine 1 MG/ML Auto-Injector [Epipen] EpiP en 2-Hank 0.3 MG/0.3ML EpiPen 2-Hank 0.3 MG/0.3ML 04/23/2020 12:00:00 AM EDT active EpiPen 2-Hank 0.3 MG/0.3ML eCW1 ([facility]) tizanidine 4 MG Oral Tablet Tizanidine HCl 4 MG Tizanidine H Cl 4 MG 04/23/2020 12:00:00 AM EDT active Tizanidi ne HCl 4 MG eCW1 ([facility]) 0.3 ML Epinephrine 1 MG/ML Auto-Injector [Epipen] EpiP en 2-Hank 0.3 MG/0.3ML EpiPen 2-Hank 0.3 MG/0.3ML 04/23/2020 12:00:00 AM EDT active EpiPen 2-Hank 0.3 MG/0.3ML eCW1 ([facility]) Furosemide 20 MG Oral Tablet Furosemide 20 MG 04/23/2020 12:00:00 AM E DT active Furosemide 20 MG eCW1 ([facility]) Omeprazole 20 MG Delayed Release Oral Capsule Omeprazole 20 MG 04/23/2020 12:00:00 AM EDT active Omeprazo le 20 MG eCW1 ([facility]) tizanidine 4 MG Oral Tablet Tizanidine HCl 4 MG Tizanidine H Cl 4 MG 04/23/2020 12:00:00 AM EDT active Tizanidi ne HCl 4 MG eCW1 ([facility]) 0.3 ML Epinephrine 1 MG/ML Auto-Injector [Epipen] EpiP en 2-Hank 0.3 MG/0.3ML EpiPen 2-Hank 0.3 MG/0.3ML 04/23/2020 12:00:00 AM EDT active EpiPen 2-Hank 0.3 MG/0.3ML eCW1 ([facility]) 0.3 ML Epinephrine 1 MG/ML Auto-Injector [Epipen] EpiP en 2-Hank 0.3 MG/0.3ML EpiPen 2-Hank 0.3 MG/0.3ML 04/23/2020 12:00:00 AM EDT active EpiPen 2-Hank 0.3 MG/0.3ML eCW1 ([facility]) tizanidine 4 MG Oral Tablet Tizanidine HCl 4 MG Tizanidine H Cl 4 MG 04/23/2020 12:00:00 AM EDT active Tizanidi ne HCl 4 MG eCW1 ([facility]) Omeprazole 20 MG Delayed Release Oral Capsule Omeprazole 20 MG 04/23/2020 12:00:00 AM EDT active Omeprazo le 20 MG eCW1 ([facility]) 0.3 ML Epinephrine 1 MG/ML Auto-Injector [Epipen] EpiP en 2-Hank 0.3 MG/0.3ML EpiPen 2-Hank 0.3 MG/0.3ML 04/23/2020 12:00:00 AM EDT active EpiPen 2-Hank 0.3 MG/0.3ML eCW1 ([facility]) tizanidine 4 MG Oral Tablet Tizanidine HCl 4 MG Tizanidine H Cl 4 MG 04/23/2020 12:00:00 AM EDT active Tizanidi ne HCl 4 MG eCW1 ([facility]) Furosemide 20 MG Oral Tablet Furosemide 20 MG 04/23/2020 12:00:00 AM E DT active Furosemide 20 MG eCW1 ([facility]) Furosemide 20 MG Oral Tablet Furosemide 20 MG 04/23/2020 12:00:00 AM E DT active Furosemide 20 MG eCW1 ([facility]) Furosemide 20 MG Oral Tablet Furosemide 20 MG 04/23/2020 12:00:00 AM E DT active Furosemide 20 MG eCW1 ([facility]) 0.3 ML Epinephrine 1 MG/ML Auto-Injector [Epipen] EpiP en 2-Hank 0.3 MG/0.3ML EpiPen 2-Hank 0.3 MG/0.3ML 04/23/2020 12:00:00 AM EDT active EpiPen 2-Hank 0.3 MG/0.3ML eCW1 ([facility]) 0.3 ML Epinephrine 1 MG/ML Auto-Injector [Epipen] EpiP en 2-Hank 0.3 MG/0.3ML EpiPen 2-Hank 0.3 MG/0.3ML 04/23/2020 12:00:00 AM EDT active EpiPen 2-Hank 0.3 MG/0.3ML eCW1 ([facility]) Furosemide 20 MG Oral Tablet Furosemide 20 MG 04/23/2020 12:00:00 AM E DT active Furosemide 20 MG eCW1 ([facility]) Prednisone 10 MG Oral Tablet PredniSONE 10 MG PredniSONE 10 MG 04/23/2020 12:00:00 AM EDT active PredniSO NE 10 MG eCW1 ([facility]) Prednisone 10 MG Oral Tablet PredniSONE 10 MG PredniSONE 10 MG 04/23/2020 12:00:00 AM EDT active PredniSO NE 10 MG eCW1 ([facility]) Omeprazole 20 MG Delayed Release Oral Capsule Omeprazole 20 MG 04/23/2020 12:00:00 AM EDT active Omeprazo le 20 MG eCW1 ([facility]) tizanidine 4 MG Oral Tablet Tizanidine HCl 4 MG Tizanidine H Cl 4 MG 04/23/2020 12:00:00 AM EDT active Tizanidi ne HCl 4 MG eCW1 ([facility]) 0.3 ML Epinephrine 1 MG/ML Auto-Injector [Epipen] EpiP en 2-Hank 0.3 MG/0.3ML EpiPen 2-Hank 0.3 MG/0.3ML 04/23/2020 12:00:00 AM EDT active EpiPen 2-Hank 0.3 MG/0.3ML eCW1 ([facility]) tizanidine 4 MG Oral Tablet Tizanidine HCl 4 MG Tizanidine H Cl 4 MG 04/23/2020 12:00:00 AM EDT active Tizanidi ne HCl 4 MG eCW1 ([facility]) Furosemide 20 MG Oral Tablet Furosemide 20 MG 04/23/2020 12:00:00 AM E DT active Furosemide 20 MG eCW1 ([facility]) Omeprazole 20 MG Delayed Release Oral Capsule Omeprazole 20 MG 04/23/2020 12:00:00 AM EDT active Omeprazo le 20 MG eCW1 ([facility]) Omeprazole 20 MG Delayed Release Oral Capsule Omeprazole 20 MG 04/23/2020 12:00:00 AM EDT active Omeprazo le 20 MG eCW1 ([facility]) Furosemide 20 MG Oral Tablet Furosemide 20 MG 04/23/2020 12:00:00 AM E DT active Furosemide 20 MG eCW1 ([facility]) Furosemide 20 MG Oral Tablet Furosemide 20 MG 04/23/2020 12:00:00 AM E DT active Furosemide 20 MG eCW1 ([facility]) tizanidine 4 MG Oral Tablet Tizanidine HCl 4 MG Tizanidine H Cl 4 MG 04/23/2020 12:00:00 AM EDT active Tizanidi ne HCl 4 MG eCW1 ([facility]) Omeprazole 20 MG Delayed Release Oral Capsule Omeprazole 20 MG 04/23/2020 12:00:00 AM EDT active Omeprazo le 20 MG eCW1 ([facility]) Sulfamethoxazole 400 MG / Trimethoprim 8 0 MG Oral Tablet Sulfamethoxazole- Trimethoprim 400-80 MG Sulfamethoxazole-Trimethoprim 400-80 MG 04/23/2020 12:00:00 AM EDT 1.0 {tablet} suspended Sulfamethoxazole-Trimethoprim 400-80 MG eCW1 ([facility]) 0.3 ML Epinephrine 1 MG/ML Auto-Injector [Epipen] EpiP en 2-Hank 0.3 MG/0.3ML EpiPen 2-Hank 0.3 MG/0.3ML 04/23/2020 12:00:00 AM EDT active EpiPen 2-Hank 0.3 MG/0.3ML eCW1 ([facility]) Furosemide 20 MG Oral Tablet Furosemide 20 MG 04/23/2020 12:00:00 AM E DT active Furosemide 20 MG eCW1 ([facility]) 0.3 ML Epinephrine 1 MG/ML Auto-Injector [Epipen] EpiP en 2-Hank 0.3 MG/0.3ML EpiPen 2-Hank 0.3 MG/0.3ML 04/23/2020 12:00:00 AM EDT active EpiPen 2-Hank 0.3 MG/0.3ML eCW1 ([facility]) tizanidine 4 MG Oral Tablet Tizanidine HCl 4 MG Tizanidine H Cl 4 MG 04/23/2020 12:00:00 AM EDT active Tizanidi ne HCl 4 MG eCW1 ([facility]) Furosemide 20 MG Oral Tablet Furosemide 20 MG 04/23/2020 12:00:00 AM E DT active Furosemide 20 MG eCW1 ([facility]) tizanidine 4 MG Oral Tablet Tizanidine HCl 4 MG Tizanidine H Cl 4 MG 04/23/2020 12:00:00 AM EDT active Tizanidi ne HCl 4 MG eCW1 ([facility]) tizanidine 4 MG Oral Tablet Tizanidine HCl 4 MG Tizanidine H Cl 4 MG 04/23/2020 12:00:00 AM EDT active Tizanidi ne HCl 4 MG eCW1 ([facility]) tizanidine 4 MG Oral Tablet Tizanidine HCl 4 MG Tizanidine H Cl 4 MG 04/23/2020 12:00:00 AM EDT active Tizanidi ne HCl 4 MG eCW1 ([facility]) 0.3 ML Epinephrine 1 MG/ML Auto-Injector [Epipen] EpiP en 2-Hank 0.3 MG/0.3ML EpiPen 2-Hank 0.3 MG/0.3ML 04/23/2020 12:00:00 AM EDT active EpiPen 2-Hank 0.3 MG/0.3ML eCW1 ([facility]) Furosemide 20 MG Oral Tablet Furosemide 20 MG 04/23/2020 12:00:00 AM E DT active Furosemide 20 MG eCW1 ([facility]) 0.3 ML Epinephrine 1 MG/ML Auto-Injector [Epipen] EpiP en 2-Hank 0.3 MG/0.3ML EpiPen 2-Hank 0.3 MG/0.3ML 04/23/2020 12:00:00 AM EDT active EpiPen 2-Hank 0.3 MG/0.3ML eCW1 ([facility]) Furosemide 20 MG Oral Tablet Furosemide 20 MG 04/23/2020 12:00:00 AM E DT active Furosemide 20 MG eCW1 ([facility]) Furosemide 20 MG Oral Tablet Furosemide 20 MG 04/23/2020 12:00:00 AM E DT active Furosemide 20 MG eCW1 ([facility]) tizanidine 4 MG Oral Tablet Tizanidine HCl 4 MG Tizanidine H Cl 4 MG 04/23/2020 12:00:00 AM EDT active Tizanidi ne HCl 4 MG eCW1 ([facility]) Omeprazole 20 MG Delayed Release Oral Capsule Omeprazole 20 MG 04/23/2020 12:00:00 AM EDT active Omeprazo le 20 MG eCW1 ([facility]) Omeprazole 20 MG Delayed Release Oral Capsule Omeprazole 20 MG 04/23/2020 12:00:00 AM EDT active Omeprazo le 20 MG eCW1 ([facility]) Omeprazole 20 MG Delayed Release Oral Capsule Omeprazole 20 MG 04/23/2020 12:00:00 AM EDT active Omeprazo le 20 MG eCW1 ([facility]) Furosemide 20 MG Oral Tablet Furosemide 20 MG 04/23/2020 12:00:00 AM E DT active Furosemide 20 MG eCW1 ([facility]) Omeprazole 20 MG Delayed Release Oral Capsule Omeprazole 20 MG 04/23/2020 12:00:00 AM EDT active Omeprazo le 20 MG eCW1 ([facility]) tizanidine 4 MG Oral Tablet Tizanidine HCl 4 MG Tizanidine H Cl 4 MG 04/23/2020 12:00:00 AM EDT active Tizanidi ne HCl 4 MG eCW1 ([facility]) Lisinopril 2.5 MG Oral Tablet Lisinopril 2.5 MG 04/16/2020 12:00:00 AM EDT 1.0 {tablet} active Lisinopril 2.5 MG eCW1 ([facility]) Lisinopril 2.5 MG Oral Tablet Lisinopril 2.5 MG 04/16/2020 12:00:00 AM EDT 1.0 {tablet} active Lisinopril 2.5 MG eCW1 ([facility]) Lisinopril 2.5 MG Oral Tablet Lisinopril 2.5 MG 04/16/2020 12:00:00 AM EDT 1.0 {tablet} active Lisinopril 2.5 MG eCW1 ([facility]) Lisinopril 2.5 MG Oral Tablet Lisinopril 2.5 MG 04/16/2020 12:00:00 AM EDT 1.0 {tablet} active Lisinopril 2.5 MG eCW1 ([facility]) Lisinopril 2.5 MG Oral Tablet Lisinopril 2.5 MG 04/16/2020 12:00:00 AM EDT 1.0 {tablet} active Lisinopril 2.5 MG eCW1 ([facility]) Lisinopril 2.5 MG Oral Tablet Lisinopril 2.5 MG 04/16/2020 12:00:00 AM EDT 1.0 {tablet} active Lisinopril 2.5 MG eCW1 ([facility]) Lisinopril 2.5 MG Oral Tablet Lisinopril 2.5 MG 04/16/2020 12:00:00 AM EDT 1.0 {tablet} active Lisinopril 2.5 MG eCW1 ([facility]) Lisinopril 2.5 MG Oral Tablet Lisinopril 2.5 MG 04/16/2020 12:00:00 AM EDT 1.0 {tablet} active Lisinopril 2.5 MG eCW1 ([facility]) Lisinopril 2.5 MG Oral Tablet Lisinopril 2.5 MG 04/16/2020 12:00:00 AM EDT 1.0 {tablet} active Lisinopril 2.5 MG eCW1 ([facility]) Lisinopril 2.5 MG Oral Tablet Lisinopril 2.5 MG 04/16/2020 12:00:00 AM EDT 1.0 {tablet} active Lisinopril 2.5 MG eCW1 ([facility]) Lisinopril 2.5 MG Oral Tablet Lisinopril 2.5 MG 04/16/2020 12:00:00 AM EDT 1.0 {tablet} active Lisinopril 2.5 MG eCW1 ([facility]) Lisinopril 2.5 MG Oral Tablet Lisinopril 2.5 MG 04/16/2020 12:00:00 AM EDT 1.0 {tablet} active Lisinopril 2.5 MG eCW1 ([facility]) Lisinopril 2.5 MG Oral Tablet Lisinopril 2.5 MG 04/16/2020 12:00:00 AM EDT 1.0 {tablet} active Lisinopril 2.5 MG eCW1 ([facility]) Lisinopril 2.5 MG Oral Tablet Lisinopril 2.5 MG 04/16/2020 12:00:00 AM EDT 1.0 {tablet} active Lisinopril 2.5 MG eCW1 ([facility]) Lisinopril 2.5 MG Oral Tablet Lisinopril 2.5 MG 04/16/2020 12:00:00 AM EDT 1.0 {tablet} active Lisinopril 2.5 MG eCW1 ([facility]) Lisinopril 2.5 MG Oral Tablet Lisinopril 2.5 MG 04/16/2020 12:00:00 AM EDT 1.0 {tablet} active Lisinopril 2.5 MG eCW1 ([facility]) Lisinopril 2.5 MG Oral Tablet Lisinopril 2.5 MG 04/16/2020 12:00:00 AM EDT 1.0 {tablet} active Lisinopril 2.5 MG eCW1 ([facility]) Lisinopril 2.5 MG Oral Tablet Lisinopril 2.5 MG 04/16/2020 12:00:00 AM EDT 1.0 {tablet} active Lisinopril 2.5 MG eCW1 ([facility]) Lisinopril 2.5 MG Oral Tablet Lisinopril 2.5 MG 04/16/2020 12:00:00 AM EDT 1.0 {tablet} active Lisinopril 2.5 MG eCW1 ([facility]) Acetaminophen 325 MG / Hydrocodone Alexus trate 5 MG Oral Tablet Hydrocodone- Acetaminophen 5-325 MG Hydrocodone-Acetaminophen 5-325 MG 02/26/2020 12:00:00 AM EDT active take 1 tablet eCW 1 ([facility]) Acetaminophen 325 MG / Hydrocodone Alexus trate 5 MG Oral Tablet Hydrocodone- Acetaminophen 5-325 MG Hydrocodone-Acetaminophen 5-325 MG 02/26/2020 12:00:00 AM EDT active take 1 tablet eCW 1 ([facility]) Acetaminophen 325 MG / Hydrocodone Alexus trate 5 MG Oral Tablet Hydrocodone- Acetaminophen 5-325 MG Hydrocodone-Acetaminophen 5-325 MG 02/26/2020 12:00:00 AM EDT suspended Hydrocodone-Ac etaminophen 5-325 MG eCW1 ([facility]) Acetaminophen 325 MG / Hydrocodone Alexus trate 5 MG Oral Tablet Hydrocodone- Acetaminophen 5-325 MG Hydrocodone-Acetaminophen 5-325 MG 02/26/2020 12:00:00 AM EDT suspended Hydrocodone-Ac etaminophen 5-325 MG eCW1 ([facility]) Acetaminophen 325 MG / Hydrocodone Alexus trate 5 MG Oral Tablet Hydrocodone- Acetaminophen 5-325 MG Hydrocodone-Acetaminophen 5-325 MG 02/26/2020 12:00:00 AM EDT suspended Hydrocodone-Ac etaminophen 5-325 MG eCW1 ([facility]) Acetaminophen 325 MG / Hydrocodone Alexus trate 5 MG Oral Tablet Hydrocodone- Acetaminophen 5-325 MG Hydrocodone-Acetaminophen 5-325 MG 02/26/2020 12:00:00 AM EDT suspended take 1 tablet eCW1 ([facility]) Acetaminophen 325 MG / Hydrocodone Alexus trate 5 MG Oral Tablet Hydrocodone- Acetaminophen 5-325 MG Hydrocodone-Acetaminophen 5-325 MG 02/26/2020 12:00:00 AM EDT suspended Hydrocodone-Ac etaminophen 5-325 MG eCW1 ([facility]) Acetaminophen 325 MG / Hydrocodone Alexus trate 5 MG Oral Tablet Hydrocodone- Acetaminophen 5-325 MG Hydrocodone-Acetaminophen 5-325 MG 02/26/2020 12:00:00 AM EDT active take 1 tablet eCW 1 ([facility]) Acetaminophen 325 MG / Hydrocodone Alexus trate 5 MG Oral Tablet Hydrocodone- Acetaminophen 5-325 MG Hydrocodone-Acetaminophen 5-325 MG 01/24/2020 12:00:00 AM EDT active take 1 tablet eCW 1 ([facility]) Acetaminophen 325 MG / Hydrocodone Alexus trate 5 MG Oral Tablet Hydrocodone- Acetaminophen 5-325 MG Hydrocodone-Acetaminophen 5-325 MG 01/24/2020 12:00:00 AM EDT active take 1 tablet eCW 1 ([facility]) Omeprazole 20 MG Delayed Release Oral Capsule Omeprazole 01/21/2020 12:00:00 AM EDT ORAL active MEDENT ([facility], ) Fluticasone Propionate Fluticasone Propionate 01/21/2020 12:00:00 AM E DT active MEDENT ([facility], ) cetirizine hydrochloride 10 MG Oral Tablet Cetirizine HCl 10 MG Cetirizine HCl 10 MG 01/07/2020 12:00:00 AM EDT active 1 tablet eCW1 ([facility]) cetirizine hydrochloride 10 MG Oral Tablet Cetirizine HCl 10 MG Cetirizine HCl 10 MG 01/07/2020 12:00:00 AM EDT 1.0 {tablet} activ e Cetirizine HCl 10 MG eCW1 ([facility]) cetirizine hydrochloride 10 MG Oral Tablet Cetirizine HCl 10 MG Cetirizine HCl 10 MG 01/07/2020 12:00:00 AM EDT 1.0 {tablet} activ e Cetirizine HCl 10 MG eCW1 ([facility]) cetirizine hydrochloride 10 MG Oral Tablet Cetirizine HCl 10 MG Cetirizine HCl 10 MG 01/07/2020 12:00:00 AM EDT 1.0 {tablet} activ e Cetirizine HCl 10 MG eCW1 ([facility]) cetirizine hydrochloride 10 MG Oral Tablet Cetirizine HCl 10 MG Cetirizine HCl 10 MG 01/07/2020 12:00:00 AM EDT 1.0 {tablet} activ e Cetirizine HCl 10 MG eCW1 ([facility]) cetirizine hydrochloride 10 MG Oral Tablet Cetirizine HCl 10 MG Cetirizine HCl 10 MG 01/07/2020 12:00:00 AM EDT 1.0 {tablet} activ e Cetirizine HCl 10 MG eCW1 ([facility]) cetirizine hydrochloride 10 MG Oral Tablet Cetirizine HCl 10 MG Cetirizine HCl 10 MG 01/07/2020 12:00:00 AM EDT 1.0 {tablet} activ e Cetirizine HCl 10 MG eCW1 ([facility]) cetirizine hydrochloride 10 MG Oral Tablet Cetirizine HCl 10 MG Cetirizine HCl 10 MG 01/07/2020 12:00:00 AM EDT 1.0 {tablet} activ e Cetirizine HCl 10 MG eCW1 ([facility]) cetirizine hydrochloride 10 MG Oral Tablet Cetirizine HCl 10 MG Cetirizine HCl 10 MG 01/07/2020 12:00:00 AM EDT 1.0 {tablet} activ e Cetirizine HCl 10 MG eCW1 ([facility]) cetirizine hydrochloride 10 MG Oral Tablet Cetirizine HCl 10 MG Cetirizine HCl 10 MG 01/07/2020 12:00:00 AM EDT 1.0 {tablet} activ e Cetirizine HCl 10 MG eCW1 ([facility]) cetirizine hydrochloride 10 MG Oral Tablet Cetirizine HCl 10 MG Cetirizine HCl 10 MG 01/07/2020 12:00:00 AM EDT 1.0 {tablet} activ e Cetirizine HCl 10 MG eCW1 ([facility]) cetirizine hydrochloride 10 MG Oral Tablet Cetirizine HCl 10 MG Cetirizine HCl 10 MG 01/07/2020 12:00:00 AM EDT 1.0 {tablet} activ e Cetirizine HCl 10 MG eCW1 ([facility]) cetirizine hydrochloride 10 MG Oral Tablet Cetirizine HCl 10 MG Cetirizine HCl 10 MG 01/07/2020 12:00:00 AM EDT active 1 tablet eCW1 ([facility]) cetirizine hydrochloride 10 MG Oral Tablet Cetirizine HCl 10 MG Cetirizine HCl 10 MG 01/07/2020 12:00:00 AM EDT 1.0 {tablet} activ e Cetirizine HCl 10 MG eCW1 ([facility]) cetirizine hydrochloride 10 MG Oral Tablet Cetirizine HCl 10 MG Cetirizine HCl 10 MG 01/07/2020 12:00:00 AM EDT 1.0 {tablet} activ e Cetirizine HCl 10 MG eCW1 ([facility]) cetirizine hydrochloride 10 MG Oral Tablet Cetirizine HCl 10 MG Cetirizine HCl 10 MG 01/07/2020 12:00:00 AM EDT 1.0 {tablet} activ e Cetirizine HCl 10 MG eCW1 ([facility]) cetirizine hydrochloride 10 MG Oral Tablet Cetirizine HCl 10 MG Cetirizine HCl 10 MG 01/07/2020 12:00:00 AM EDT 1.0 {tablet} activ e Cetirizine HCl 10 MG eCW1 ([facility]) cetirizine hydrochloride 10 MG Oral Tablet Cetirizine HCl 10 MG Cetirizine HCl 10 MG 01/07/2020 12:00:00 AM EDT 1.0 {tablet} activ e Cetirizine HCl 10 MG eCW1 ([facility]) cetirizine hydrochloride 10 MG Oral Tablet Cetirizine HCl 10 MG Cetirizine HCl 10 MG 01/07/2020 12:00:00 AM EDT active 1 tablet eCW1 ([facility]) cetirizine hydrochloride 10 MG Oral Tablet Cetirizine HCl 10 MG Cetirizine HCl 10 MG 01/07/2020 12:00:00 AM EDT 1.0 {tablet} activ e Cetirizine HCl 10 MG eCW1 ([facility]) cetirizine hydrochloride 10 MG Oral Tablet Cetirizine HCl 10 MG Cetirizine HCl 10 MG 01/07/2020 12:00:00 AM EDT active 1 tablet eCW1 ([facility]) cetirizine hydrochloride 10 MG Oral Tablet Cetirizine HCl 10 MG Cetirizine HCl 10 MG 01/07/2020 12:00:00 AM EDT 1.0 {tablet} activ e Cetirizine HCl 10 MG eCW1 ([facility]) cetirizine hydrochloride 10 MG Oral Tablet Cetirizine HCl 10 MG Cetirizine HCl 10 MG 01/07/2020 12:00:00 AM EDT active 1 tablet eCW1 ([facility]) cetirizine hydrochloride 10 MG Oral Tablet Cetirizine HCl 10 MG Cetirizine HCl 10 MG 01/07/2020 12:00:00 AM EDT 1.0 {tablet} activ e Cetirizine HCl 10 MG eCW1 ([facility]) cetirizine hydrochloride 10 MG Oral Tablet Cetirizine HCl 10 MG Cetirizine HCl 10 MG 01/07/2020 12:00:00 AM EDT 1.0 {tablet} activ e Cetirizine HCl 10 MG eCW1 ([facility]) cetirizine hydrochloride 10 MG Oral Tablet Cetirizine HCl 10 MG Cetirizine HCl 10 MG 01/07/2020 12:00:00 AM EDT 1.0 {tablet} activ e Cetirizine HCl 10 MG eCW1 ([facility]) Nystatin 100 UNT/MG Topical Powder Nystatin 901965 UNI T/GM Nystatin 694863 UNIT/GM 01/03/2020 12:00:00 AM EST 1.0 {application} active Nystatin 284305 UNIT/GM eCW1 ([facility]) Nystatin 100 UNT/MG Topical Powder Nystatin 271084 UNI T/GM Nystatin 198353 UNIT/GM 01/03/2020 12:00:00 AM EST active 1 application eCW1 ([facility]) Nystatin 100 UNT/MG Topical Powder Nystatin 590742 UNI T/GM Nystatin 532677 UNIT/GM 01/03/2020 12:00:00 AM EST active 1 application eCW1 ([facility]) Nystatin 100 UNT/MG Topical Powder Nystatin 021578 UNI T/GM Nystatin 026104 UNIT/GM 01/03/2020 12:00:00 AM EST 1.0 {application} active Nystatin 743621 UNIT/GM eCW1 ([facility]) Nystatin 100 UNT/MG Topical Powder Nystatin 033572 UNI T/GM Nystatin 581549 UNIT/GM 01/03/2020 12:00:00 AM EST 1.0 {application} active Nystatin 079038 UNIT/GM eCW1 ([facility]) Nystatin 100 UNT/MG Topical Powder Nystatin 559926 UNI T/GM Nystatin 946750 UNIT/GM 01/03/2020 12:00:00 AM EST 1.0 {application} active Nystatin 177981 UNIT/GM eCW1 ([facility]) Nystatin 100 UNT/MG Topical Powder Nystatin 204936 UNI T/GM Nystatin 093048 UNIT/GM 01/03/2020 12:00:00 AM EST 1.0 {application} active Nystatin 738327 UNIT/GM eCW1 ([facility]) Nystatin 100 UNT/MG Topical Powder Nystatin 895115 UNI T/GM Nystatin 137041 UNIT/GM 01/03/2020 12:00:00 AM EST 1.0 {application} active Nystatin 050872 UNIT/GM eCW1 ([facility]) Nystatin 100 UNT/MG Topical Powder Nystatin 057106 UNI T/GM Nystatin 457843 UNIT/GM 01/03/2020 12:00:00 AM EST 1.0 {application} active Nystatin 236034 UNIT/GM eCW1 ([facility]) Nystatin 100 UNT/MG Topical Powder Nystatin 632891 UNI T/GM Nystatin 951230 UNIT/GM 01/03/2020 12:00:00 AM EST 1.0 {application} active Nystatin 264349 UNIT/GM eCW1 ([facility]) Nystatin 100 UNT/MG Topical Powder Nystatin 117992 UNI T/GM Nystatin 521240 UNIT/GM 01/03/2020 12:00:00 AM EST 1.0 {application} active Nystatin 203719 UNIT/GM eCW1 ([facility]) Nystatin 100 UNT/MG Topical Powder Nystatin 530861 UNI T/GM Nystatin 906167 UNIT/GM 01/03/2020 12:00:00 AM EST 1.0 {application} active Nystatin 802012 UNIT/GM eCW1 ([facility]) Nystatin 100 UNT/MG Topical Powder Nystatin 989939 UNI T/GM Nystatin 044352 UNIT/GM 01/03/2020 12:00:00 AM EST active 1 application eCW1 ([facility]) Nystatin 100 UNT/MG Topical Powder Nystatin 562836 UNI T/GM Nystatin 839887 UNIT/GM 01/03/2020 12:00:00 AM EST 1.0 {application} active Nystatin 362777 UNIT/GM eCW1 ([facility]) Nystatin 100 UNT/MG Topical Powder Nystatin 513334 UNI T/GM Nystatin 299602 UNIT/GM 01/03/2020 12:00:00 AM EST 1.0 {application} active Nystatin 818300 UNIT/GM eCW1 ([facility]) Nystatin 100 UNT/MG Topical Powder Nystatin 015704 UNI T/GM Nystatin 450854 UNIT/GM 01/03/2020 12:00:00 AM EST 1.0 {application} active Nystatin 655327 UNIT/GM eCW1 ([facility]) Nystatin 100 UNT/MG Topical Powder Nystatin 826083 UNI T/GM Nystatin 913125 UNIT/GM 01/03/2020 12:00:00 AM EST 1.0 {application} active Nystatin 366838 UNIT/GM eCW1 ([facility]) Nystatin 100 UNT/MG Topical Powder Nystatin 342531 UNI T/GM Nystatin 103735 UNIT/GM 01/03/2020 12:00:00 AM EST 1.0 {application} active Nystatin 118890 UNIT/GM eCW1 ([facility]) Nystatin 100 UNT/MG Topical Powder Nystatin 217141 UNI T/GM Nystatin 328669 UNIT/GM 01/03/2020 12:00:00 AM EST 1.0 {application} active Nystatin 662062 UNIT/GM eCW1 ([facility]) Nystatin 100 UNT/MG Topical Powder Nystatin 913230 UNI T/GM Nystatin 186590 UNIT/GM 01/03/2020 12:00:00 AM EST 1.0 {application} active Nystatin 757316 UNIT/GM eCW1 ([facility]) Nystatin 100 UNT/MG Topical Powder Nystatin 955164 UNI T/GM Nystatin 473485 UNIT/GM 01/03/2020 12:00:00 AM EST 1.0 {application} active Nystatin 791944 UNIT/GM eCW1 ([facility]) Nystatin 100 UNT/MG Topical Powder Nystatin 072166 UNI T/GM Nystatin 065296 UNIT/GM 01/03/2020 12:00:00 AM EST 1.0 {application} active Nystatin 052812 UNIT/GM eCW1 ([facility]) Nystatin 100 UNT/MG Topical Powder Nystatin 842651 UNI T/GM Nystatin 316427 UNIT/GM 01/03/2020 12:00:00 AM EST active 1 application eCW1 ([facility]) Nystatin 100 UNT/MG Topical Powder Nystatin 507315 UNI T/GM Nystatin 027608 UNIT/GM 01/03/2020 12:00:00 AM EST 1.0 {application} active Nystatin 069489 UNIT/GM eCW1 ([facility]) Nystatin 100 UNT/MG Topical Powder Nystatin 978843 UNI T/GM Nystatin 072839 UNIT/GM 01/03/2020 12:00:00 AM EST 1.0 {application} active Nystatin 067995 UNIT/GM eCW1 ([facility]) Nystatin 100 UNT/MG Topical Powder Nystatin 574384 UNI T/GM Nystatin 512807 UNIT/GM 01/03/2020 12:00:00 AM EST active 1 application eCW1 ([facility]) Nystatin 100 UNT/MG Topical Powder Nystatin 088292 UNI T/GM Nystatin 148696 UNIT/GM 01/03/2020 12:00:00 AM EST active 1 application eCW1 ([facility]) Acetaminophen 325 MG / Hydrocodone Alexus trate 5 MG Oral Tablet Hydrocodone- Acetaminophen 5-325 MG Hydrocodone-Acetaminophen 5-325 MG 12/03/2019 12:00:00 AM EST active take 1 tablet eCW 1 ([facility]) Acetaminophen 325 MG / Hydrocodone Alexus trate 5 MG Oral Tablet Hydrocodone- Acetaminophen 5-325 MG Hydrocodone-Acetaminophen 5-325 MG 12/03/2019 12:00:00 AM EST active take 1 tablet eCW 1 ([facility]) Acetaminophen 325 MG / Hydrocodone Alexus trate 5 MG Oral Tablet Hydrocodone- Acetaminophen 5-325 MG Hydrocodone-Acetaminophen 5-325 MG 12/03/2019 12:00:00 AM EST active take 1 tablet eCW 1 ([facility]) Acetaminophen 325 MG / Hydrocodone Alexus trate 5 MG Oral Tablet Hydrocodone- Acetaminophen 5-325 MG Hydrocodone-Acetaminophen 5-325 MG 12/03/2019 12:00:00 AM EST active take 1 tablet eCW 1 ([facility]) 30 ACTUAT fluticasone furoate 0.2 MG/ACT UAT / vilanterol 0.025 MG/ACTUAT Dry Powder Inhaler [Breo] Breo Ellipta 11/22/2019 12:00:00 AM EST RESPIRATORY active MEDENT ([facility], ) Prednisone 10 MG Oral Tablet Prednisone 11/01/2019 12:00:00 AM EST ORAL completed MEDENT ([facility], ) Furosemide 20 MG Oral Tablet Furosemide 11/01/2019 12:00:00 AM EST ORAL active MEDENT ([facility], ) 60 ACTUAT Budesonide 0.16 MG/ACTUAT / fo rmoterol fumarate 0.0045 MG/ACTUAT Metered Dose Inhaler [Symbicort] Symbicort 11/01/2019 12:00:00 AM EST RESPIRATORY completed MEDENT ( [facility], ) Albuterol Sulfate HFA 108 (90 Base) MCG/ACT Albuterol Sulfate HFA 108 (90 Base) MCG/ACT 10/22/2019 12:00:00 AM EST 2.0 {puffs} activ e Albuterol Sulfate HFA 108 (90 Base) MCG/ACT eCW1 ([facility]) Albuterol Sulfate HFA 108 (90 Base) MCG/ACT Albuterol Sulfate HFA 108 (90 Base) MCG/ACT 10/22/2019 12:00:00 AM EST 2.0 {puffs} activ e Albuterol Sulfate HFA 108 (90 Base) MCG/ACT eCW1 ([facility]) Albuterol Sulfate HFA 108 (90 Base) MCG/ACT Albuterol Sulfate HFA 108 (90 Base) MCG/ACT 10/22/2019 12:00:00 AM EST 2.0 {puffs} activ e Albuterol Sulfate HFA 108 (90 Base) MCG/ACT eCW1 ([facility]) Albuterol Sulfate HFA 108 (90 Base) MCG/ACT Albuterol Sulfate HFA 108 (90 Base) MCG/ACT 10/22/2019 12:00:00 AM EST active 2 puffs as needed eCW1 ([facility]) Albuterol Sulfate HFA 108 (90 Base) MCG/ACT Albuterol Sulfate HFA 108 (90 Base) MCG/ACT 10/22/2019 12:00:00 AM EST 2.0 {puffs_as_needed} active Albuterol Sulfate HFA 108 (90 Base) MCG/ACT eCW1 ([facility]) Albuterol Sulfate HFA 108 (90 Base) MCG/ACT Albuterol Sulfate HFA 108 (90 Base) MCG/ACT 10/22/2019 12:00:00 AM EST active 2 puffs as needed eCW1 ([facility]) Albuterol Sulfate HFA 108 (90 Base) MCG/ACT Albuterol Sulfate HFA 108 (90 Base) MCG/ACT 10/22/2019 12:00:00 AM EST 2.0 {puffs_as_needed} active Albuterol Sulfate HFA 108 (90 Base) MCG/ACT eCW1 ([facility]) Albuterol Sulfate HFA 108 (90 Base) MCG/ACT Albuterol Sulfate HFA 108 (90 Base) MCG/ACT 10/22/2019 12:00:00 AM EST 2.0 {puffs} activ e Albuterol Sulfate HFA 108 (90 Base) MCG/ACT eCW1 ([facility]) Albuterol Sulfate HFA 108 (90 Base) MCG/ACT Albuterol Sulfate HFA 108 (90 Base) MCG/ACT 10/22/2019 12:00:00 AM EST active 2 puffs as needed eCW1 ([facility]) Albuterol Sulfate HFA 108 (90 Base) MCG/ACT Albuterol Sulfate HFA 108 (90 Base) MCG/ACT 10/22/2019 12:00:00 AM EST active 2 puffs as needed eCW1 ([facility]) Albuterol Sulfate HFA 108 (90 Base) MCG/ACT Albuterol Sulfate HFA 108 (90 Base) MCG/ACT 10/22/2019 12:00:00 AM EST 2.0 {puffs_as_needed} active Albuterol Sulfate HFA 108 (90 Base) MCG/ACT eCW1 ([facility]) Albuterol Sulfate HFA 108 (90 Base) MCG/ACT Albuterol Sulfate HFA 108 (90 Base) MCG/ACT 10/22/2019 12:00:00 AM EST active 2 puffs as needed eCW1 ([facility]) Hydrocodone-Acetaminophen 5-325 MG UNK 10/22/2019 12:00:00 AM EST active take 1 tablet eCW1 ([facility]) Albuterol Sulfate HFA 108 (90 Base) MCG/ACT Albuterol Sulfate HFA 108 (90 Base) MCG/ACT 10/22/2019 12:00:00 AM EST 2.0 {puffs} activ e Albuterol Sulfate HFA 108 (90 Base) MCG/ACT eCW1 ([facility]) Acetaminophen 325 MG / Hydrocodone Alexus trate 5 MG Oral Tablet Hydrocodone- Acetaminophen 5-325 MG Hydrocodone-Acetaminophen 5-325 MG 10/22/2019 12:00:00 AM EST active take 1 tablet eCW 1 ([facility]) Albuterol Sulfate HFA 108 (90 Base) MCG/ACT Albuterol Sulfate HFA 108 (90 Base) MCG/ACT 10/22/2019 12:00:00 AM EST 2.0 {puffs} activ e Albuterol Sulfate HFA 108 (90 Base) MCG/ACT eCW1 ([facility]) Albuterol Sulfate HFA 108 (90 Base) MCG/ACT Albuterol Sulfate HFA 108 (90 Base) MCG/ACT 10/22/2019 12:00:00 AM EST 2.0 {puffs} activ e Albuterol Sulfate HFA 108 (90 Base) MCG/ACT eCW1 ([facility]) Albuterol Sulfate HFA 108 (90 Base) MCG/ACT Albuterol Sulfate HFA 108 (90 Base) MCG/ACT 10/22/2019 12:00:00 AM EST 2.0 {puffs} activ e Albuterol Sulfate HFA 108 (90 Base) MCG/ACT eCW1 ([facility]) Albuterol Sulfate HFA 108 (90 Base) MCG/ACT Albuterol Sulfate HFA 108 (90 Base) MCG/ACT 10/22/2019 12:00:00 AM EST active 2 puffs as needed eCW1 ([facility]) Albuterol Sulfate HFA 108 (90 Base) MCG/ACT Albuterol Sulfate HFA 108 (90 Base) MCG/ACT 10/22/2019 12:00:00 AM EST 2.0 {puffs} activ e Albuterol Sulfate HFA 108 (90 Base) MCG/ACT eCW1 ([facility]) Albuterol Sulfate HFA 108 (90 Base) MCG/ACT Albuterol Sulfate HFA 108 (90 Base) MCG/ACT 10/22/2019 12:00:00 AM EST active 2 puffs as needed eCW1 ([facility]) Albuterol Sulfate HFA 108 (90 Base) MCG/ACT Albuterol Sulfate HFA 108 (90 Base) MCG/ACT 10/22/2019 12:00:00 AM EST 2.0 {puffs} activ e Albuterol Sulfate HFA 108 (90 Base) MCG/ACT eCW1 ([facility]) Albuterol Sulfate HFA 108 (90 Base) MCG/ACT Albuterol Sulfate HFA 108 (90 Base) MCG/ACT 10/22/2019 12:00:00 AM EST active 2 puffs as needed eCW1 ([facility]) Albuterol Sulfate HFA 108 (90 Base) MCG/ACT Albuterol Sulfate HFA 108 (90 Base) MCG/ACT 10/22/2019 12:00:00 AM EST 2.0 {puffs} activ e Albuterol Sulfate HFA 108 (90 Base) MCG/ACT eCW1 ([facility]) Albuterol Sulfate HFA 108 (90 Base) MCG/ACT Albuterol Sulfate HFA 108 (90 Base) MCG/ACT 10/22/2019 12:00:00 AM EST 2.0 {puffs_as_needed} active Albuterol Sulfate HFA 108 (90 Base) MCG/ACT eCW1 ([facility]) Albuterol Sulfate HFA 108 (90 Base) MCG/ACT Albuterol Sulfate HFA 108 (90 Base) MCG/ACT 10/22/2019 12:00:00 AM EST 2.0 {puffs} activ e Albuterol Sulfate HFA 108 (90 Base) MCG/ACT eCW1 ([facility]) Albuterol Sulfate HFA 108 (90 Base) MCG/ACT UNK 10/22/2019 12: 00:00 AM EST active 2 puffs as needed eC W1 ([facility]) Albuterol Sulfate HFA 108 (90 Base) MCG/ACT Albuterol Sulfate HFA 108 (90 Base) MCG/ACT 10/22/2019 12:00:00 AM EST 2.0 {puffs} activ e Albuterol Sulfate HFA 108 (90 Base) MCG/ACT eCW1 ([facility]) Albuterol Sulfate HFA 108 (90 Base) MCG/ACT Albuterol Sulfate HFA 108 (90 Base) MCG/ACT 10/22/2019 12:00:00 AM EST 2.0 {puffs} activ e Albuterol Sulfate HFA 108 (90 Base) MCG/ACT eCW1 ([facility]) Albuterol Sulfate HFA 108 (90 Base) MCG/ACT Albuterol Sulfate HFA 108 (90 Base) MCG/ACT 10/22/2019 12:00:00 AM EST 2.0 {puffs} activ e Albuterol Sulfate HFA 108 (90 Base) MCG/ACT eCW1 ([facility]) Albuterol Sulfate HFA 108 (90 Base) MCG/ACT Albuterol Sulfate HFA 108 (90 Base) MCG/ACT 10/22/2019 12:00:00 AM EST 2.0 {puffs} activ e Albuterol Sulfate HFA 108 (90 Base) MCG/ACT eCW1 ([facility]) Albuterol Sulfate HFA 108 (90 Base) MCG/ACT Albuterol Sulfate HFA 108 (90 Base) MCG/ACT 10/22/2019 12:00:00 AM EST active 2 puffs as needed eCW1 ([facility]) Albuterol Sulfate HFA 108 (90 Base) MCG/ACT Albuterol Sulfate HFA 108 (90 Base) MCG/ACT 10/22/2019 12:00:00 AM EST 2.0 {puffs} activ e Albuterol Sulfate HFA 108 (90 Base) MCG/ACT eCW1 ([facility]) Acetaminophen 325 MG / Hydrocodone Alexus trate 5 MG Oral Tablet Hydrocodone- Acetaminophen 5-325 MG Hydrocodone-Acetaminophen 5-325 MG 09/21/2019 12:00:00 AM EST active take 1 tablet eCW 1 ([facility]) Acetaminophen 325 MG / Hydrocodone Alexus trate 5 MG Oral Tablet Hydrocodone- Acetaminophen 5-325 MG Hydrocodone-Acetaminophen 5-325 MG 09/21/2019 12:00:00 AM EST active take 1 tablet eCW 1 ([facility]) Acetaminophen 325 MG / Hydrocodone Alexus trate 5 MG Oral Tablet Hydrocodone- Acetaminophen 5-325 MG Hydrocodone-Acetaminophen 5-325 MG 09/21/2019 12:00:00 AM EST active take 1 tablet eCW 1 ([facility]) Acetaminophen 325 MG / Hydrocodone Alexus trate 5 MG Oral Tablet Hydrocodone- Acetaminophen 5-325 MG Hydrocodone-Acetaminophen 5-325 MG 09/21/2019 12:00:00 AM EST active take 1 tablet eCW 1 ([facility]) Insurance Providers Payer name Policy type / Coverage type Policy ID Covered constitution party ID Covered constitution party's relationship to chahal Policy [place] Plan Information [place] [id number] SP [id number] HUMANA GOLD [id number] SP [id number] [employer] GOLD PLUS -O/P [id number] 18 [id number] MEDICARE [id number] SP [id number] HU[employer]NA GOLD PLUS -CLINIC [id number] 18 [id number] [employer]NA MEDICARE O [id number] [employer] GOLD PLUS -PHYSICIAN [id number] [employer] GOLD [id number] SP [id number] S [id number] [employer] GOLD O [id number] S [id number] [employer] PPO [id number] SP [id number] [employer] PPO [id number] SP [id number] Problems, Conditions, and Diagnoses Code Display Name Description Problem Type Effective Dates Data Source(s) 56493540 Allergic rhinitis Allergic rhinitis Problem 09/04/2020 12:00:00 AM EST MEDENT ([facility]) [id number] Patient post percutaneous transluminal c oronary angioplasty Patient post percutaneous transluminal coronary angioplasty Problem 12:00:00 AM EST MEDENT ([facility]) [id number] Essential hypertension Essential hypertension Problem 09/04/2020 12:00:00 AM EST MEDENT ([facility]) [id number] Edema Edema Problem 09/04/2020 12:00:00 AM ES T MEDENT ([facility]) 831606832 Low back pain Low back pain Problem 09/04/2020 12:00:00 AM EST MEDENT ([facility]) [id number] Recurrent major depressive episodes Recu rrent major depressive episodes Problem 09/04/2020 12:00:00 AM EST MEDENT ([facility]) 68228559 Hyperlipidemia Hyperlipidemia Problem 09/04/2020 12:00: 00 AM EST MEDENT ([facility]) 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 Problem 09/04/2020 12:00:00 AM EST [facility] ([facility]) M81.8 [id number] Secondary osteoporosis Problem 08/07/2020 12 :00:00 AM EDT eCW1 ([facility]) [id number] Chronic diastolic heart failure Chronic diastoli c heart failure Problem 05/15/2020 12:00:00 AM EDT [facility] ([facility]) [id number] Mixed hyperlipidemia Mixed hyperlipidemia Problem 05/15/2020 12:00:00 AM EDT MEDENT ([facility]) [id number] 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 Coronary arteriosclerosis in patient wit h history of previous myocardial infarction Problem 05/15/2020 12:00:00 AM EDT ME DENT ([facility]) 750372249 Dietary management surveillance Dietary manageme nt surveillance Problem 05/15/2020 12:00:00 AM EDT MED[facility] ([facility]) 136936027 Obesity Obesity Problem 05/15/2020 12:00:00 AM ED T MEDENT ([facility]) 34129102 Hyperlipidemia Hyperlipidemia Problem 05/15/2020 12:00: 00 AM EDT MEDENT ([facility]) 54268430 Chronic right-sided heart failure Chronic right- sided heart failure Problem 05/15/2020 12:00:00 AM EDT [facility] ([facility]) 31664480 Essential hypertension Essential hypertension Problem 05/15/2020 12:00:00 AM EDT MED[facility] ([facility]) 548352611 Patient post percutaneous transluminal c oronary angioplasty Patient post percutaneous transluminal coronary angioplasty Problem 12:00:00 AM EDT MED[facility] ([facility]) 7465463 Old myocardial infarction Old myocardial infarction Pr oblem 05/15/2020 12:00:00 AM EDT MED[facility] ([facility]) I27.81 [id number] Cor pulmonale Problem 05/05/2020 12:00:00 AM EDT eCW1 ([facility]) Z91.030 [id number] Bee sting allergy Problem 04/09/2020 12:00:0 0 AM EDT eCW1 ([facility]) M48.061 [id number] Lumbar spinal stenosis Problem 03/26/2020 12 :00:00 AM EDT eCW1 ([facility]) M48.061 [id number] Lumbar spinal stenosis Problem 03/26/2020 12 :00:00 AM EDT eCW1 ([facility]) M48.062 [id number] Spinal stenosis of lumbar region with neurogenic claudication Problem 02/20/2020 12:00:00 AM EDT eCW1 ([facility]) M48.062 50124702 Spinal stenosis of lumbar region with neurogenic claudication Problem 02/20/2020 12:00:00 AM EDT eCW1 ([facility]) J30.2 [id number] Seasonal allergies Problem 01/07/2020 12:00: 00 AM EDT eCW1 ([facility]) J30.2 [id number] Seasonal allergies Problem 01/07/2020 12:00: 00 AM EDT eCW1 ([facility]) M79.18 [id number] Myalgia, other site Problem 10/26/2019 12:00 :00 AM EST eCW1 ([facility]) M51.16 [id number] Intervertebral disc disorders with radiculopathy, lumbar region Problem 10/26/2019 12:00:00 AM EST eCW1 ([facility]) M54.40 [id number] Lumbago with sciatica, unspecified side P roblem 10/26/2019 12:00:00 AM EST eCW1 ([facility]) M51.16 [id number] Intervertebral disc disorders with radiculopathy, lumbar region Problem 10/26/2019 12:00:00 AM EST eCW1 ([facility]) M54.40 [id number] Lumbago with sciatica, unspecified side P roblem 10/26/2019 12:00:00 AM EST eCW1 ([facility]) M79.18 [id number] Myalgia, other site Problem 10/26/2019 12:00 :00 AM EST [facility] ([facility]) D509 Iron deficiency anemia, unspecified Iron deficie ncy anemia, unspecified Diagnosis 10/17/2020 01:13:00 PM [facility] 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 C hemical 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 Diagnosis 10/06/2020 01:33:00 PM [facility] Z23 Encounter for immunization Encounter for immunization Diagnosis 09/04/2020 03:10:00 PM [facility] [id number] Other specified disorders of bone densit y and structure, unspecified site Other specified disorders of bone density and structure, unspecified site Diagnosis 09/04/2020 03:10:00 PM [facility] K219 Gastro-esophageal reflux disease without esophagitis Gastro-esophageal reflux disease without esophagitis Diagnosis 09/04/2020 03:10:00 PM [facility] E785 Hyperlipidemia, unspecified Hyperlipidemia, unspecifie d Diagnosis 09/04/2020 03:10:00 PM [facility] F339 Major depressive disorder, recurrent, un specified Major depressive disorder, recurrent, unspecified Diagnosis 09/04/2020 03:10:00 PM [facility] M545 Low back pain Low back pain Diagnosis 09/04/2020 03:10:00 PM [facility] R600 Localized edema Localized edema Diagnosis 09/04/2020 03:1 0:00 PM [facility] E119 Type 2 diabetes mellitus without complic ations Type 2 diabetes mellitus without complications Diagnosis 09/04/2020 03:10:00 PM [facility] I10 Essential (primary) hypertension Essential (primary) h ypertension Diagnosis 09/04/2020 03:10:00 PM [facility] Z955 Presence of coronary angioplasty implant and graft Presence of coronary angioplasty implant and graft Diagnosis 09/04/2020 03:10:00 PM [facility] J309 Allergic rhinitis, unspecified Allergic rhinitis, unsp ecified Diagnosis 09/04/2020 03:10:00 PM [facility] Surgeries/Procedures Procedure Description Date Indications Data Source(s) Brief Emotional/Behav Assessment W/ Scoring Doc Per Standard Inst 09/04/2020 12:00:00 AM EST [facility] ([facility]) Admin Patient Focused Health Risk Assessment Instrument 09/04/2020 12:00:00 AM EST [facility] ([facility]) Spirometry 08/27/2020 12:00:00 AM EDT M EDEARNEST ([facility], ) MYOCARDIAL SPECT MULTIPLE STUDIES 06/03/2020 12:00:00 AM EDT [facility] ([facility]) CV STRS TST XERS&/OR RX CONT ECG PHYS SI&R 06/03/2020 12:00:00 AM [facility] ECG ROUTINE ECG W/LEAST 12 LDS W/I&R 05/15/2020 12:00: 00 AM EDT [facility]) Arterial Pressure Waveform Analysis For Assessment Of Centra l Art 05/15/2020 12:00:00 AM EDT [facility] ([facility]) Lumbar/Sacral w/ Imaging 03/26/2020 12:00:00 AM EDT eCW1 ([facility]) ESTABILISHED PATIENT [facility] FACILITY CHARGE 020 12:00:00 AM EDT eCW1 ([facility]) Bronchospasm Evaluation 03/12/2020 12:00:00 AM EDT [facility] ([facility], ) Maximum Breathing Capacity, Maximal Voluntary Ventilation 03/12/2020 12:00:00 AM EDT [facility] ([facility], ) Plethysmography Determination Lung Volumes & Per Airway Resi st 03/12/2020 12:00:00 AM EDT [facility] ([facility], ) DIFFUSING CAPACITY 03/12/2020 12:00:00 AM EDT [facility] ([facility], ) PHYSICIAN TELEPHONE EVALUATION 11-20 MIN 03/11/2020 12 :00:00 AM EDT eCW1 ([facility]) RADXPS IN END [id number] PXD 01/01/2020 12:00:00 AM ES T eCW1 ([facility]) Office Visit, Est Pt., Level 2 FC 12/03/2019 12:00:00 AM EST eCW1 ([facility]) Office Visit, Est Pt., Level 3 PC 12/03/2019 12:00:00 AM EST eCW1 ([facility]) Aerosol Or Vapor Inhalations 11/26/2019 12:00:00 AM ES T [facility] ([facility], ) Spirometry 11/01/2019 12:00:00 AM EST M EDENT ([facility], ) Aerosol Or Vapor Inhalations 11/01/2019 12:00:00 AM ES T [facility] ([facility], ) Eligible professional attests to gaetano dinero in the medical record they obtained, updated, or reviewed the patient's current medications 10/19/2019 12:00:00 AM EST eCW1 ([facility]) Pain assessment documented as positive u sing a standardized tool and a follow-up plan is documented 10/19/2019 12:00:00 AM EST e CW1 ([facility]) Office Visit, Est Pt., Level 4 PC 09/21/2019 12:00:00 AM EST eCW1 ([facility]) Results ID Date Data Source [id number] 10/17/2020 01:21:00 PM EST [facility] ([facility]) Name Value Range Interpretation Code Description Data Debi rce(s) Supporting Document(s) Iron 70 ug/dL 42-135 [facility] ([facility]) FASTING 12 HOUR~.~.~<DG1.3.1>Z00.01</DG1.3.1><DG1.3.1>I10</DG1.3.1><DG1.3.1>E11.9</DG1.3.1> <DG1.3 Uibc 224 ug/dL 112-347 [facility] ([facility]) FASTING 12 HOUR~.~.~<DG1.3.1>Z00.01</DG1.3.1><DG1.3.1>I10</DG1.3.1><DG1.3.1>E11.9</DG1.3.1> <DG1.3 Tibc 294 ug/dL 250-450 [facility] ([facility]) FASTING 12 HOUR~.~.~<DG1.3.1>Z00.01</DG1.3.1><DG1.3.1>I10</DG1.3.1><DG1.3.1>E11.9</DG1.3.1> <DG1.3 Iron Sat 24 % [facility] ([facility]) FASTING 12 HOUR~.~.~<DG1.3.1>Z00.01</DG1.3.1><DG1.3.1>I10</DG1.3.1><DG1.3.1>E11.9</DG1.3.1> <DG1.3 ID Date Data Source [id number] 10/17/2020 01:21:00 PM EST [facility]) Name Value Range Interpretation Code Description Data Debi rce(s) Supporting Document(s) Calcidiol [Mass/volume] in Serum or Plasma 27 ng/mL [facility] ([facility]) FASTING 12 HOUR~.~.~<DG1.3.1>Z00.01</DG1.3.1><DG1.3.1>I10</DG1.3.1><DG1.3.1>E11.9</DG1.3.1> <DG1.3 Hemoglobin A1c/Hemoglobin.total in Blood 5.8 % 4.4-6.1 [facility] ([facility]) FASTING 12 HOUR~.~.~<DG1.3.1>Z00.01</DG1.3.1><DG1.3.1>I10</DG1.3.1><DG1.3.1>E11.9</DG1.3.1> <DG1.3 Thyrotropin [Units/volume] in Serum or Plasma 3.37 uIU/mL 0.47-5.01 [facility] ([facility]) FASTING 12 HOUR~.~.~<DG1.3.1>Z00.01</DG1.3.1><DG1.3.1>I10</DG1.3.1><DG1.3.1>E11.9</DG1.3.1> <DG1.3 Thyroxine (T4) free [Mass/volume] in Serum or Plasma 1.28 ng/dL 0.93- 1.70 [facility] ([facility]) FASTING 12 HOUR~.~.~<DG1.3.1>Z00.01</DG1.3.1><DG1.3.1>I10</DG1.3.1><DG1.3.1>E11.9</DG1.3.1> <DG1.3 ID Date Data Source [id number] 10/17/2020 01:21:00 PM EST [facility] ([facility]) Name Value Range Interpretation Code Description Data Debi rce(s) Supporting Document(s) Cve Panel [facility]) FASTING 12 HOUR~.~.~<DG1.3.1>Z00.01</DG1.3.1><DG1.3.1>I10</DG1.3.1><DG1.3.1>E11.9</DG1.3.1> <DG1.3 Cholesterol 115 mg/dL 131-200 Below low normal [facility] ([facility]) FASTING 12 HOUR~.~.~<DG1.3.1>Z00.01</DG1.3.1><DG1.3.1>I10</DG1.3.1><DG1.3.1>E11.9</DG1.3.1> <DG1.3 LDL 59 mg/dL 65-175 Below low normal [facility] ([facility]) FASTING 12 HOUR~.~.~<DG1.3.1>Z00.01</DG1.3.1><DG1.3.1>I10</DG1.3.1><DG1.3.1>E11.9</DG1.3.1> <DG1.3 Triglycerides 183 mg/dL 35-160 Above high normal MED[facility] NT ([facility]) FASTING 12 HOUR~.~.~<DG1.3.1>Z00.01</DG1.3.1><DG1.3.1>I10</DG1.3.1><DG1.3.1>E11.9</DG1.3.1> <DG1.3 HDL 30 mg/dL 29-86 [facility] ([facility]) FASTING 12 HOUR~.~.~<DG1.3.1>Z00.01</DG1.3.1><DG1.3.1>I10</DG1.3.1><DG1.3.1>E11.9</DG1.3.1> <DG1.3 LDL/HDL 1.97 1.47-3.22 [facility] ([facility]) FASTING 12 HOUR~.~.~<DG1.3.1>Z00.01</DG1.3.1><DG1.3.1>I10</DG1.3.1><DG1.3.1>E11.9</DG1.3.1> <DG1.3 Risk Factor 3.8 3.2-4.4 [facility] ([facility]) FASTING 12 HOUR~.~.~<DG1.3.1>Z00.01</DG1.3.1><DG1.3.1>I10</DG1.3.1><DG1.3.1>E11.9</DG1.3.1> <DG1.3 ID Date Data Source [id number] 10/17/2020 01:21:00 PM EST [facility] ([facility]) Name Value Range Interpretation Code Description Data Debi rce(s) Supporting Document(s) Comprehensive Metabo Laboratory test result [facility] ([facility]) FASTING 12 HOUR~.~.~<DG1.3.1>Z00.01</DG1.3.1><DG1.3.1>I10</DG1.3.1><DG1.3.1>E11.9</DG1.3.1> <DG1.3 Potassium 4.1 meq/L 3.6-5.0 [facility] ([facility]) FASTING 12 HOUR~.~.~<DG1.3.1>Z00.01</DG1.3.1><DG1.3.1>I10</DG1.3.1><DG1.3.1>E11.9</DG1.3.1> <DG1.3 Sodium 142 meq/L 134-153 [facility] ([facility]) FASTING 12 HOUR~.~.~<DG1.3.1>Z00.01</DG1.3.1><DG1.3.1>I10</DG1.3.1><DG1.3.1>E11.9</DG1.3.1> <DG1.3 Chloride 103 meq/L 98-107 [facility] ([facility]) FASTING 12 HOUR~.~.~<DG1.3.1>Z00.01</DG1.3.1><DG1.3.1>I10</DG1.3.1><DG1.3.1>E11.9</DG1.3.1> <DG1.3 Glucose 70 mg/dL 65-110 [facility] ([facility]) FASTING 12 HOUR~.~.~<DG1.3.1>Z00.01</DG1.3.1><DG1.3.1>I10</DG1.3.1><DG1.3.1>E11.9</DG1.3.1> <DG1.3 Co2 26 meq/L 22-30 [facility] ([facility]) FASTING 12 HOUR~.~.~<DG1.3.1>Z00.01</DG1.3.1><DG1.3.1>I10</DG1.3.1><DG1.3.1>E11.9</DG1.3.1> <DG1.3 BUN 22 mg/dL 7-21 Above high normal [facility] ([facility]) FASTING 12 HOUR~.~.~<DG1.3.1>Z00.01</DG1.3.1><DG1.3.1>I10</DG1.3.1><DG1.3.1>E11.9</DG1.3.1> <DG1.3 Creatinine 1.2 mg/dL 0.7-1.5 [facility] ([facility]) FASTING 12 HOUR~.~.~<DG1.3.1>Z00.01</DG1.3.1><DG1.3.1>I10</DG1.3.1><DG1.3.1>E11.9</DG1.3.1> <DG1.3 BUN/Creat 18 8-27 [facility] ([facility]) FASTING 12 HOUR~.~.~<DG1.3.1>Z00.01</DG1.3.1><DG1.3.1>I10</DG1.3.1><DG1.3.1>E11.9</DG1.3.1> <DG1.3 Albumin 4.3 g/dL 3.9-5.0 [facility] ([facility]) FASTING 12 HOUR~.~.~<DG1.3.1>Z00.01</DG1.3.1><DG1.3.1>I10</DG1.3.1><DG1.3.1>E11.9</DG1.3.1> <DG1.3 Total Protein 6.5 g/dL 6.3-8.2 [facility] ([facility]) FASTING 12 HOUR~.~.~<DG1.3.1>Z00.01</DG1.3.1><DG1.3.1>I10</DG1.3.1><DG1.3.1>E11.9</DG1.3.1> <DG1.3 A/G Ratio 2.0 0.8-2.0 [facility] ([facility]) FASTING 12 HOUR~.~.~<DG1.3.1>Z00.01</DG1.3.1><DG1.3.1>I10</DG1.3.1><DG1.3.1>E11.9</DG1.3.1> <DG1.3 Globulin 2.2 GM/DL 2.4-3.2 Below low normal [facility] ( [facility]) FASTING 12 HOUR~.~.~<DG1.3.1>Z00.01</DG1.3.1><DG1.3.1>I10</DG1.3.1><DG1.3.1>E11.9</DG1.3.1> <DG1.3 Calcium 9.7 mg/dL 8.4-10.2 [facility] ([facility]) FASTING 12 HOUR~.~.~<DG1.3.1>Z00.01</DG1.3.1><DG1.3.1>I10</DG1.3.1><DG1.3.1>E11.9</DG1.3.1> <DG1.3 Total Bili Laboratory test result 0.2-1.3 [facility] ([facility]) FASTING 12 HOUR~.~.~<DG1.3.1>Z00.01</DG1.3.1><DG1.3.1>I10</DG1.3.1><DG1.3.1>E11.9</DG1.3.1> <DG1.3 Alkaline Phos 139 U/L 38-126 Above high normal [facility] NT ([facility]) FASTING 12 HOUR~.~.~<DG1.3.1>Z00.01</DG1.3.1><DG1.3.1>I10</DG1.3.1><DG1.3.1>E11.9</DG1.3.1> <DG1.3 Sgot/Ast 20 U/L 5-40 [facility] ([facility]) FASTING 12 HOUR~.~.~<DG1.3.1>Z00.01</DG1.3.1><DG1.3.1>I10</DG1.3.1><DG1.3.1>E11.9</DG1.3.1> <DG1.3 SGPT/Alt 25 U/L 7-56 [facility] ([facility]) FASTING 12 HOUR~.~.~<DG1.3.1>Z00.01</DG1.3.1><DG1.3.1>I10</DG1.3.1><DG1.3.1>E11.9</DG1.3.1> <DG1.3 Anion Gap 13.0 mmol/L 8.0-16.0 [facility] ([facility]) FASTING 12 HOUR~.~.~<DG1.3.1>Z00.01</DG1.3.1><DG1.3.1>I10</DG1.3.1><DG1.3.1>E11.9</DG1.3.1> <DG1.3 Non-Aa GFR 47 mL/min [facility] ([facility]) FASTING 12 HOUR~.~.~<DG1.3.1>Z00.01</DG1.3.1><DG1.3.1>I10</DG1.3.1><DG1.3.1>E11.9</DG1.3.1> <DG1.3 Age 70 yrs [facility] ([facility]) FASTING 12 HOUR~.~.~<DG1.3.1>Z00.01</DG1.3.1><DG1.3.1>I10</DG1.3.1><DG1.3.1>E11.9</DG1.3.1> <DG1.3 Afr Amer GFR Laboratory test result [facility] ([facility]) FASTING 12 HOUR~.~.~<DG1.3.1>Z00.01</DG1.3.1><DG1.3.1>I10</DG1.3.1><DG1.3.1>E11.9</DG1.3.1> <DG1.3 ID Date Data Source [id number] 10/17/2020 01:21:00 PM EST [facility] ([facility]) Name Value Range Interpretation Code Description Data Debi rce(s) Supporting Document(s) Urinalysis Laboratory test [facility] ([facility]) FASTING 12 HOUR~.~.~<DG1.3.1>Z00.01</DG1.3.1><DG1.3.1>I10</DG1.3.1><DG1.3.1>E11.9</DG1.3.1> <DG1.3 Source Laboratory test result [facility] ([facility]) FASTING 12 HOUR~.~.~<DG1.3.1>Z00.01</DG1.3.1><DG1.3.1>I10</DG1.3.1><DG1.3.1>E11.9</DG1.3.1> <DG1.3 Color Laboratory test result [facility] ([facility]) FASTING 12 HOUR~.~.~<DG1.3.1>Z00.01</DG1.3.1><DG1.3.1>I10</DG1.3.1><DG1.3.1>E11.9</DG1.3.1> <DG1.3 Spec [place] 1.015 1.001-1.030 [facility] ([facility]) FASTING 12 HOUR~.~.~<DG1.3.1>Z00.01</DG1.3.1><DG1.3.1>I10</DG1.3.1><DG1.3.1>E11.9</DG1.3.1> <DG1.3 Clarity Laboratory test result [facility] ([facility]) FASTING 12 HOUR~.~.~<DG1.3.1>Z00.01</DG1.3.1><DG1.3.1>I10</DG1.3.1><DG1.3.1>E11.9</DG1.3.1> <DG1.3 pH 5 5-9 [facility] ([facility]) FASTING 12 HOUR~.~.~<DG1.3.1>Z00.01</DG1.3.1><DG1.3.1>I10</DG1.3.1><DG1.3.1>E11.9</DG1.3.1> <DG1.3 Glucose Laboratory test result [facility] ([facility]) FASTING 12 HOUR~.~.~<DG1.3.1>Z00.01</DG1.3.1><DG1.3.1>I10</DG1.3.1><DG1.3.1>E11.9</DG1.3.1> <DG1.3 Bilirubin Laboratory test result [facility] ([facility]) FASTING 12 HOUR~.~.~<DG1.3.1>Z00.01</DG1.3.1><DG1.3.1>I10</DG1.3.1><DG1.3.1>E11.9</DG1.3.1> <DG1.3 Ketone Laboratory test result [facility] ([facility]) FASTING 12 HOUR~.~.~<DG1.3.1>Z00.01</DG1.3.1><DG1.3.1>I10</DG1.3.1><DG1.3.1>E11.9</DG1.3.1> <DG1.3 Nitrite Laboratory test result [facility] ([facility]) FASTING 12 HOUR~.~.~<DG1.3.1>Z00.01</DG1.3.1><DG1.3.1>I10</DG1.3.1><DG1.3.1>E11.9</DG1.3.1> <DG1.3 Protein Laboratory test result [facility] ([facility]) FASTING 12 HOUR~.~.~<DG1.3.1>Z00.01</DG1.3.1><DG1.3.1>I10</DG1.3.1><DG1.3.1>E11.9</DG1.3.1> <DG1.3 Blood Laboratory test result [facility] ([facility]) FASTING 12 HOUR~.~.~<DG1.3.1>Z00.01</DG1.3.1><DG1.3.1>I10</DG1.3.1><DG1.3.1>E11.9</DG1.3.1> <DG1.3 Leuk Est Laboratory test result [facility]) FASTING 12 HOUR~.~.~<DG1.3.1>Z00.01</DG1.3.1><DG1.3.1>I10</DG1.3.1><DG1.3.1>E11.9</DG1.3.1> <DG1.3 Urobilinogen Laboratory test result [facility] ([facility]) FASTING 12 HOUR~.~.~<DG1.3.1>Z00.01</DG1.3.1><DG1.3.1>I10</DG1.3.1><DG1.3.1>E11.9</DG1.3.1> <DG1.3 [facility]scopic [facility] FA[facility] 12 H[facility]~.~.~<DG1.3.1>Z00.01</DG1.3.1><DG1.3.1>I10</DG1.3.1><DG1.3.1>E11.9</DG1.3.1> <DG1.3 ID Date Data Source [id number] 10/17/2020 01:21:00 PM EST [facility] ([facility]) Name Value Range Interpretation Code Description Data Debi rce(s) Supporting Document(s) CBC W/Automated Diff Laboratory test [facility] ([facility]) FASTING 12 HOUR~.~.~<DG1.3.1>Z00.01</DG1.3.1><DG1.3.1>I10</DG1.3.1><DG1.3.1>E11.9</DG1.3.1> <DG1.3 WBC 12.6 10^3/uL 4.2-11.0 Above high normal [facility] ([facility]) FASTING 12 HOUR~.~.~<DG1.3.1>Z00.01</DG1.3.1><DG1.3.1>I10</DG1.3.1><DG1.3.1>E11.9</DG1.3.1> <DG1.3 RBC 4.75 10^6/uL 4.20-5.40 [facility] ([facility]) FASTING 12 HOUR~.~.~<DG1.3.1>Z00.01</DG1.3.1><DG1.3.1>I10</DG1.3.1><DG1.3.1>E11.9</DG1.3.1> <DG1.3 Hemoglobin 12.6 g/dL 12.0-16.0 [facility] ([facility]) FASTING 12 HOUR~.~.~<DG1.3.1>Z00.01</DG1.3.1><DG1.3.1>I10</DG1.3.1><DG1.3.1>E11.9</DG1.3.1> <DG1.3 Hematocrit 40.5 % 37.0-47.0 [facility] ([facility]) FASTING 12 HOUR~.~.~<DG1.3.1>Z00.01</DG1.3.1><DG1.3.1>I10</DG1.3.1><DG1.3.1>E11.9</DG1.3.1> <DG1.3 MCH 26.5 pg 27.0-34.0 Below low normal [facility] ( [facility]) FASTING 12 HOUR~.~.~<DG1.3.1>Z00.01</DG1.3.1><DG1.3.1>I10</DG1.3.1><DG1.3.1>E11.9</DG1.3.1> <DG1.3 MCV 85.3 fL 81.0-101 [facility] ([facility]) FASTING 12 HOUR~.~.~<DG1.3.1>Z00.01</DG1.3.1><DG1.3.1>I10</DG1.3.1><DG1.3.1>E11.9</DG1.3.1> <DG1.3 MCHC 31.1 g/dL 31.0-36.0 [facility] ([facility]) FASTING 12 HOUR~.~.~<DG1.3.1>Z00.01</DG1.3.1><DG1.3.1>I10</DG1.3.1><DG1.3.1>E11.9</DG1.3.1> <DG1.3 RDW 17.6 % 11.5-14.5 Above high normal [facility] ([facility]) FASTING 12 HOUR~.~.~<DG1.3.1>Z00.01</DG1.3.1><DG1.3.1>I10</DG1.3.1><DG1.3.1>E11.9</DG1.3.1> <DG1.3 Platelets 326 10^3/uL 150-450 [facility] ([facility]) FASTING 12 HOUR~.~.~<DG1.3.1>Z00.01</DG1.3.1><DG1.3.1>I10</DG1.3.1><DG1.3.1>E11.9</DG1.3.1> <DG1.3 Neut 79.8 % 37.0-80.0 [facility] ([facility]) FASTING 12 HOUR~.~.~<DG1.3.1>Z00.01</DG1.3.1><DG1.3.1>I10</DG1.3.1><DG1.3.1>E11.9</DG1.3.1> <DG1.3 MPV 10.2 fL 7.4-10.4 [facility] ([facility]) FASTING 12 HOUR~.~.~<DG1.3.1>Z00.01</DG1.3.1><DG1.3.1>I10</DG1.3.1><DG1.3.1>E11.9</DG1.3.1> <DG1.3 Lymph 10.5 % 25.0-40.0 Below low normal [facility] ( [facility]) FASTING 12 HOUR~.~.~<DG1.3.1>Z00.01</DG1.3.1><DG1.3.1>I10</DG1.3.1><DG1.3.1>E11.9</DG1.3.1> <DG1.3 Lajas 6.3 % 3.0-8.0 [facility] ([facility]) FASTING 12 HOUR~.~.~<DG1.3.1>Z00.01</DG1.3.1><DG1.3.1>I10</DG1.3.1><DG1.3.1>E11.9</DG1.3.1> <DG1.3 Eos 2.2 % 0.0-7.0 [facility] ([facility]) FASTING 12 HOUR~.~.~<DG1.3.1>Z00.01</DG1.3.1><DG1.3.1>I10</DG1.3.1><DG1.3.1>E11.9</DG1.3.1> <DG1.3 %Ig 0.5 % 0.0-0.0 Above high normal [facility] ([facility]) FASTING 12 HOUR~.~.~<DG1.3.1>Z00.01</DG1.3.1><DG1.3.1>I10</DG1.3.1><DG1.3.1>E11.9</DG1.3.1> <DG1.3 Baso 0.7 % 0.0-2.5 [facility] ([facility]) FASTING 12 HOUR~.~.~<DG1.3.1>Z00.01</DG1.3.1><DG1.3.1>I10</DG1.3.1><DG1.3.1>E11.9</DG1.3.1> <DG1.3 #Neut 10.06 10^3/uL 2.00-6.90 Above high normal [facility] ([facility]) FASTING 12 HOUR~.~.~<DG1.3.1>Z00.01</DG1.3.1><DG1.3.1>I10</DG1.3.1><DG1.3.1>E11.9</DG1.3.1> <DG1.3 %NRBC 0.0 % 0.0-0.0 [facility] ([facility]) FASTING 12 HOUR~.~.~<DG1.3.1>Z00.01</DG1.3.1><DG1.3.1>I10</DG1.3.1><DG1.3.1>E11.9</DG1.3.1> <DG1.3 #Lymph 1.33 10^3/uL 0.60-3.40 [facility] ([facility]) FASTING 12 HOUR~.~.~<DG1.3.1>Z00.01</DG1.3.1><DG1.3.1>I10</DG1.3.1><DG1.3.1>E11.9</DG1.3.1> <DG1.3 #Lajas 0.80 10^3/uL 0.00-0.90 [facility] ([facility]) FASTING 12 HOUR~.~.~<DG1.3.1>Z00.01</DG1.3.1><DG1.3.1>I10</DG1.3.1><DG1.3.1>E11.9</DG1.3.1> <DG1.3 #Baso 0.09 10^3/uL 0.00-0.20 [facility] ([facility]) FASTING 12 HOUR~.~.~<DG1.3.1>Z00.01</DG1.3.1><DG1.3.1>I10</DG1.3.1><DG1.3.1>E11.9</DG1.3.1> <DG1.3 #Eos 0.28 10^3/uL 0.00-0.70 [facility] ([facility]) FASTING 12 HOUR~.~.~<DG1.3.1>Z00.01</DG1.3.1><DG1.3.1>I10</DG1.3.1><DG1.3.1>E11.9</DG1.3.1> <DG1.3 #Ig 0.06 10^3/uL 0.00-0.10 [facility] ([facility]) FASTING 12 HOUR~.~.~<DG1.3.1>Z00.01</DG1.3.1><DG1.3.1>I10</DG1.3.1><DG1.3.1>E11.9</DG1.3.1> <DG1.3 #NRBC 0.00 10^3/uL 0.00-0.00 [facility] ([facility]) FASTING 12 HOUR~.~.~<DG1.3.1>Z00.01</DG1.3.1><DG1.3.1>I10</DG1.3.1><DG1.3.1>E11.9</DG1.3.1> <DG1.3 RBC Morph Laboratory test result [facility] ([facility]) FASTING 12 HOUR~.~.~<DG1.3.1>Z00.01</DG1.3.1><DG1.3.1>I10</DG1.3.1><DG1.3.1>E11.9</DG1.3.1> <DG1.3 Manual Diff Laboratory test result [facility] ([facility]) FASTING 12 HOUR~.~.~<DG1.3.1>Z00.01</DG1.3.1><DG1.3.1>I10</DG1.3.1><DG1.3.1>E11.9</DG1.3.1> <DG1.3 ID Date Data Source [id number] 10/21/2020 09:06:00 AM [facility] Value Range Interpretation Code Description Data Debi rce(s) Supporting Document(s) Iron [Mass/volume] in Serum or Plasma 70 UG/DL 42 - 135 [facility] Iron binding capacity.unsaturated [Mass/volume] in Serum or Plasma 224 UG/DL 112 - 347 [facility] Iron binding capacity [Mass/volume] in Serum or Plasma 294 ug/dL 250 - 450 [facility] Iron saturation [Mass Fraction] in Serum or Plasma 24 % [facility] ID Date Data Source [id number] 10/17/2020 02:46:00 PM [facility] Value Range Interpretation Code Description Data Debi rce(s) Supporting Document(s) Thyroxine (T4) free index in Serum or Plasma by calculation 1.28 NG/DL 0.93 - 1.70 [facility] ID Date Data Source [id number] 10/17/2020 02:46:00 PM [facility] Value Range Interpretation Code Description Data Debi rce(s) Supporting Document(s) Thyrotropin [Units/volume] in Serum or Plasma by Detec tion limit <= 0.05 mIU/L 3.37 uIU/mL 0.47 - 5.01 [facility] ID Date Data Source [id number] 10/17/2020 02:46:00 PM EST [facility] Name Value Range Interpretation Code Description Data Debi rce(s) Supporting Document(s) Calcidiol [Moles/volume] in Serum or Plasma 27 NG/ML [facility] VITAMIN-D(2 5HYDROXY) Deficiency: <=20 ng/ml Insufficiency: 21-29 ng/ml Preferred level: => 30 ng/ml ID Date Data Source [id number] 10/17/2020 02:26:00 PM [facility] Name Value Range Interpretation Code Description Data Debi rce(s) Supporting Document(s) Hemoglobin A1c/Hemoglobin.total in Blood 5.8 % 4.4 - 6.1 [facility] {A1]{HB] ID Date Data Source [id number] 10/17/2020 02:18:00 PM [facility] Name Value Range Interpretation Code Description Data Debi rce(s) Supporting Document(s) [facility] Cholesterol [Mass/volume] in Serum or Plasma 115 MG/DL 131 - 200 L [facility] Deprecated Triglyceride [Mass/volume] in Serum or Plasma 183 MG/DL 3 5 - 160 H [facility] HDL 30 MG/DL 29 - 86 [facility] Cholesterol in LDL [Mass/volume] in Serum or Plasma by Direc t assay 59 mg/dL 65 - 175 L [facility] Cholesterol.total/Cholesterol in HDL [Mass Ratio] in Serum o r Plasma 3.8 3.2 - 4.4 [facility] LDL/HDL 1.97 1.47 - 3.22 [facility] ital CVE RISK CHOL/HDL LDL/HDLMEN: 1/2 AVERAGE 3.43 1.00 AVERAGE 4.97 3.55 2X AVERAGE 9.55 6.25 3X AVERAGE 23.99 7.99WOMEN: 1/2 AVERAGE 3.27 1.47 AVERAGE 4.44 3.22 2X AVERAGE 7.05 5.03 3X AVERAGE 11.04 6.14 ID Date Data Source [id number] 10/17/2020 02:18:00 PM EST [facility] Name Value Range Interpretation Code Description Data Debi rce(s) Supporting Document(s) COMPREHENSIVE METABOLIC PANEL [facility] COMPREHENSIVE METABOLIC PANEL Sodium [Moles/volume] in Serum or Plasma 142 mEq/L 134 - 153 [facility] Potassium [Moles/volume] in Serum or Plasma 4.1 mEq/L 3.6 - 5.0 [facility] Chloride [Moles/volume] in Serum or Plasma 103 mEq/L 98 - 107 [facility] Carbon dioxide, total [Moles/volume] in Serum or Plasma 26 MEQ/L 22 - 30 [facility] Glucose [Mass/volume] in Serum or Plasma 70 MG/DL 65 - 110 [facility] BUN 22 MG/DL 7 - 21 H [facility] Creatinine [Mass/volume] in Serum or Plasma 1.2 MG/DL 0.7 - 1.5 [facility] BUN/CREAT 18 8 - 27 [facility] Protein [Mass/volume] in Serum or Plasma 6.5 G/DL 6.3 - 8.2 [facility] Albumin [Mass/volume] in Serum or Plasma 4.3 G/DL 3.9 - 5.0 [facility] Globulin [Mass/volume] in Serum by calculation 2.2 GM/DL 2.4 - 3.2 L [facility] A/G RATIO 2.0 0.8 - 2.0 [facility] Calcium [Mass/volume] in Serum or Plasma 9.7 MG/DL 8.4 - 10.2 [facility] Bilirubin.total [Mass/volume] in Serum or Plasma <0.7 MG/DL 0.2 - 1.3 [facility] Alkaline phosphatase [Enzymatic activity/volume] in Serum or Plasma 139 U/L 38 - 126 H [facility] Aspartate aminotransferase [Enzymatic activity/volume] in Serum or Plasma 20 U/L 5 - 40 [facility] Alanine aminotransferase [Enzymatic activity/volume] in Seru m or Plasma 25 U/L 7 - 56 [facility] Anion gap 3 in Serum or Plasma 13.0 mmol/L 8.0 - 16.0 [facility] AGE 70 yrs [facility] NON-AA GFR 47 mL/min [facility] AFR AMER GFR >60 [facility] Male GFR In terprentation [...] >32 mL/min Normal ID Date Data Source [id number] 10/17/2020 01:55:00 PM EST [facility] Name Value Range Interpretation Code Description Data Debi rce(s) Supporting Document(s) [facility]IS [facility] URINALYSIS SOURCE R [facility] COLOR yellow NORMAL: Yellow [facility] ospital CLARITY clear NORMAL: Clear [facility] spital Specific gravity of Urine by Test strip 1.015 1.001 - 1.030 [facility] pH 5 5 - 9 [facility] Glucose [Mass/volume] in Urine by Test strip NORM NORMAL: Negat [facility] Bilirubin.total [Presence] in Urine by Test strip NEG NORMAL: Negative [facility] Ketones [Presence] in Urine by Test strip NEG NORMAL: Negative [facility] Protein [Mass/volume] in Urine by Test strip NEG NORMAL: [facility] Nitrite [Presence] in Urine by Test strip NEG NORMAL: Negative [facility] BLOOD NEG NORMAL: Negative [facility] Leukocyte esterase [Presence] in Urine by Test strip NEG RAMOS L: Negative [facility] Urobilinogen [Mass/volume] in Urine by Test strip NOR less diego n 1.0 mg/dL [facility] MICROSCOPIC Not Indicate [facility] ID Date Data Source [id number] 10/17/2020 01:49:00 PM EST [facility] Name Value Range Interpretation Code Description Data Debi rce(s) Supporting Document(s) CBC W/AUTOMATED DIFF [facility] COMPLETE BLOOD COUNT Leukocytes [#/volume] in Blood by Automated count 12.6 10^3/uL 4.2 - 11.0 H [facility] Erythrocytes [#/volume] in Blood by Automated count 4.75 10^6/uL 4. 20 - 5.40 [facility] Hemoglobin [Mass/volume] in Blood 12.6 g/dL 12.0 - 16.0 [facility] Hematocrit [Volume Fraction] of Blood by Automated count 40.5 % 3 7.0 - 47.0 [facility] Erythrocyte mean corpuscular volume [Entitic volume] by Auto mated count 85.3 fL 81.0 - 101 [facility] Erythrocyte mean corpuscular hemoglobin [Entitic mass] by Automated count 26.5 pg 27.0 - 34.0 L [facility] Erythrocyte mean corpuscular hemoglobin concentration [Mass/volume] by Automated count 31.1 g/dL 31.0 - 36.0 [facility] Erythrocyte distribution width [Ratio] by Automated count 17.6 % 11.5 - 14.5 H [facility] Platelets [#/volume] in Blood by Automated count 326 10^3/uL 150 - 45 0 [facility] Platelet mean volume [Entitic volume] in Blood by Automated count 10.2 fL 7.4 - 10.4 [facility] Neutrophils/100 leukocytes in Blood by Automated count 79.8 % 37. 0 - 80.0 [facility] Lymphocytes/100 leukocytes in Blood by Manual count 10.5 % 25.0 - 40.0 L [facility] Monocytes/100 leukocytes in Blood by Automated count 6.3 % 3.0 - 8.0 [facility] Eosinophils/100 leukocytes in Blood by Automated count 2.2 % 0.0 - 7.0 [facility] Basophils/100 leukocytes in Blood by Automated count 0.7 % 0.0 - 2.5 [facility] %IG 0.5 % 0.0 - 0.0 [facility] %NRBC 0.0 % 0.0 - 0.0 [facility] Neutrophils [#/volume] in Blood by Automated count 10.06 10^3/uL 2. 00 - 6.90 H [facility] Lymphocytes [#/volume] in Blood by Automated count 1.33 10^3/uL 0.60 - 3.40 [facility] Monocytes [#/volume] in Blood by Automated count 0.80 10^3/uL 0.00 - 0.90 [facility] Eosinophils [#/volume] in Blood by Automated count 0.28 10^3/uL 0.00 - 0.70 [facility] Basophils [#/volume] in Blood by Automated count 0.09 10^3/uL 0.00 - 0.20 [facility] #IG 0.06 10^3/uL 0.00 - 0.10 [facility] ospital #NRBC 0.00 10^3/uL 0.00 - 0.00 [facility] MANUAL DIFF NOT INDICATED [facility] RBC MORPH NOT INDICATED [facility] spital ID Date Data Source [id number] 09/16/2020 08:49:00 AM EST [facility] ([facility]) Name Value Range Interpretation Code Description Data Debi rce(s) Supporting Document(s) Appearance, Urine Laboratory test result Normal (applies to non-numeric results) [facility] ([facility]) Color, Urine Laboratory test result Normal (applies to non -numeric results) [facility] ([facility]) Specific [place] Urine Auto 1.015 1.002-1.035 Norm al (applies to non-numeric results) [facility] ([facility]) Protein, Urine Auto Laboratory test result Ramos l (applies to non-numeric results) [facility] ([facility]) PH,Urine 5.0 units 5.0-9.0 Normal (applies to non-numeric resul ts) [facility] ([facility]) Ketone, Urine Auto Laboratory test result Normal (applies to non-numeric results) [facility] ([facility]) Urobilinogen, Urine Auto 0.2 mg/dL 0.0-2.0 Normal (applies to non-numeric results) [facility] ([facility]) Glucose, Urine (Ua) Auto Laboratory test result Normal (applies to non-numeric results) [facility] ([facility]) Nitrite, Urine Auto Laboratory test result Ramos l (applies to non-numeric results) [facility] ([facility]) Bilirubin, Urine Auto Laboratory test result Nor mal (applies to non-numeric results) [facility] ([facility]) Leukocyte Esterase, Urine Auto Laboratory test result Abov e high normal [facility] ([facility]) WBC, Urine Auto 2 /HPF 0-3 Normal (applies to non-numeric results) [facility] ([facility]) RBC, Urine Auto 0 /HPF 0-3 Normal (applies to non-numeric results) [facility] ([facility]) Blood, Urine Blood Laboratory test result Normal (applies to non-numeric results) [facility] ([facility]) Squamous Epithelial Cell Ur AU 0 /HPF 0-6 N ormal (applies to non-numeric results) [facility] ([facility]) Hyaline Cast, Urine Auto 0 /LPF 0-1 Normal (applies to non -numeric results) [facility] ([facility]) Bacteria, Urine Auto Laboratory test result Norm al (applies to non-numeric results) [facility] ([facility]) ID Date Data Source [id number] 09/16/2020 08:43:00 AM EST [facility] ([facility]) Name Value Range Interpretation Code Description Data Debi rce(s) Supporting Document(s) White Blood Count 10.4 10 4.0-10.0 Above high normal [facility] ([facility]) Red Blood Count 5.11 10 4.00-5.40 Normal (applies to non-numeric results) [facility] ([facility]) Hemoglobin 13.3 g/dL 12.0-15.5 Normal (applies to non-numeric resul ts) [facility] ([facility]) Mean Corpuscular Volume 83.0 fl 80.0-96.0 Normal ( applies to non-numeric results) [facility]) Mean Corpuscular Hemoglobin 26.0 pg 27.0-33.0 Below low normal [facility] ([facility]) Hematocrit 42.4 % 36.0-47.0 Normal (applies to non-numeric resul ts) [facility] ([facility]) Platelet Count, Automated 276 10 150-450 Normal (applies to non-numeric results) [facility]) Mean Corpuscular HGB Conc 31.4 g/dL 32.0-36.5 Below low normal [facility] ([facility]) Red Cell Distribution Width 14.1 % 11.5-14.5 Norm al (applies to non-numeric results) [facility] ([facility]) Lymph % 13.9 % 24.0-44.0 Below low normal [facility] ( [facility]) [place] % 6.1 % 0.0-5.0 Above high normal [facility] ([facility]) Neutrophils % 74.9 % 36.0-66.0 Above high normal [facility] ([facility]) Immature Granulocyte % 0.3 % 0-3.0 Normal (applies to non-n umeric results) [facility] ([facility]) Baso % 0.6 % 0.0-1.0 Normal (applies to non-numeric resul ts) [facility] ([facility]) Eos % 4.2 % 0.0-3.0 Above high normal [facility] ([facility]) Nucleated Red Blood Cell % 0.0 % 0-0 Normal (applies to n on-numeric results) [facility] ([facility]) Lymph # 1.4 10 1.5-5.0 Below low normal [facility] ( [facility]) Neutrophils # 7.8 10 1.5-8.5 Normal (applies to non-numeric re sults) [facility] ([facility]) Baso # 0.1 10 0.0-0.2 Normal (applies to non-numeric resul ts) [facility] ([facility]) Eos # 0.4 10 0.0-0.5 Normal (applies to non-numeric resul ts) [facility] ([facility]) [place] # 0.6 10 0.0-0.8 Normal (applies to non-numeric resul ts) [facility] ([facility]) ID Date Data Source [id number] 09/16/2020 08:43:00 AM EST [facility] ([facility]) Name Value Range Interpretation Code Description Data Debi rce(s) Supporting Document(s) Hemoglobin A1c 5.7 % Normal (applies to non-numeric r esults) [facility] ([facility]) <content>REFERENCE RANGES:</content><br/ ><content></content>
<content><=5.6% NORMAL</content>
<content>5.7-6.4% SUGGESTS IMPAIRED GLUCOSE METABOLISM/PREDIABETIC</content>
<content>>= 6.5% ABNORMAL</content>
<content></content> Estimated Average Glucose 117 mg/dL 60-110 Above high normal [facility] ([facility]) ID Date Data Source [id number] 09/16/2020 08:43:00 AM EST [facility] ([facility]) Name Value Range Interpretation Code Description Data Debi rce(s) Supporting Document(s) Triglycerides Level 212 mg/dL Above high normal [facility] ([facility]) Cholesterol Level 140 mg/dL Normal (applies to non-numeri c results) [facility] ([facility]) HDL Cholesterol 40 mg/dL Normal (applies to non-numeric results) [facility] ([facility]) Non-HDL-C 100 mg/dL Normal (applies to non-numeric resul ts) [facility] ([facility]) LDL Cholesterol 58 mg/dL Normal (applies to non-numeric results) [facility] ([facility]) Cholesterol Risk Ratio 3.500 Normal (applies to non-n umeric results) [facility] ([facility]) ID Date Data Source [id number] 09/16/2020 08:43:00 AM EST [facility] ([facility]) Name Value Range Interpretation Code Description Data Debi rce(s) Supporting Document(s) Calcidiol [Mass/volume] in Serum or Plasma 13.6 ng/mL 30.0- 100.0 Below low normal [facility] ([facility]) ID Date Data Source [id number] 09/16/2020 08:43:00 AM EST [facility] ([facility]) Name Value Range Interpretation Code Description Data Debi rce(s) Supporting Document(s) Thyrotropin [Units/volume] in Serum or Plasma Laboratory test result [facility] ([facility]) Thyroxine (T4) free [Mass/volume] in Serum or Plasma Laboratory tash t result [facility] ([facility]) ID Date Data Source [id number] 09/16/2020 08:43:00 AM EST [facility] ([facility]) Name Value Range Interpretation Code Description Data Debi rce(s) Supporting Document(s) Glucose, Fasting 101 mg/dL 70-100 Above high normal [facility] ([facility]) Blood Urea Nitrogen 15 mg/dL 7-18 Normal (applies to non-nume reece results) [facility] ([facility]) Sodium Level 141 meq/L 136-145 Normal (applies to non-numeric res ults) [facility] ([facility]) Creatinine For GFR 1.06 mg/dL 0.55-1.30 Normal (applies to non -numeric results) [facility] ([facility]) Glomerular Filtration Rate 54.6 Normal (applies to n on-numeric results) [facility] ([facility]) <content>Units are mL/min/1.73 m2</content>
<content></content>
<content>Chronic Kidney Disease Staging per NKF:</content>
<content></content>
<content>Stage I & II GFR >=60 Normal to Mildly Decreased</content>
<content>Stage III GFR 30- 59 Moderately Decreased</content>
<content>Stage IV GFR 15-29 Severely Decreased</content>
<content>Stage V GFR <15 Very Little GFR Left</content>
<content>ESRD GFR <15 on ROLLING DOWN MACHINE OPERATOR</content>
<content></content> Chloride Level 109 meq/L 98-107 Above high normal [facility] ([facility]) Potassium Serum 3.9 meq/L 3.5-5.1 Normal (applies to non-numeric results) [facility] ([facility]) Carbon Dioxide Level 24 meq/L 21-32 Normal (applies to non-num tacho results) [facility] ([facility]) Calcium Level 9.5 mg/dL 8.8-10.2 Normal (applies to non-numeric re sults) [facility] ([facility]) Anion Gap 8 meq/L 8-16 Normal (applies to non-numeric resul ts) [facility] ([facility]) Ast/Sgot 10 U/L 7-37 Normal (applies to non-numeric resul ts) [facility] ([facility]) Alt/SGPT 16 U/L 12-78 Normal (applies to non-numeric resul ts) [facility] ([facility]) Alkaline Phosphatase 98 U/L 45-117 Normal (applies to non-num tacho results) [facility] ([facility]) Total Protein 7.3 GM/DL 6.4-8.2 Normal (applies to non-numeric re sults) [facility] ([facility]) Bilirubin,Total 0.7 mg/dL 0.2-1.0 Normal (applies to non-numeric results) [facility] ([facility]) Albumin 3.7 GM/DL 3.2-5.2 Normal (applies to non-numeric resul ts) [facility] ([facility]) Albumin/Globulin Ratio 1.0 1.2-2.[address] [facility] ID Date Data Source [id number] 09/16/2020 08:43:00 AM EST [facility] ([facility]) Name Value Range Interpretation Code Description Data Debi rce(s) Supporting Document(s) Thyroid Stimulating Hormone 2.180 uIU/ML 0.358-3.740 Norm al (applies to non- numeric results) [facility] ([facility]) Free T4 1.11 ng/dL 0.76-1.46 Normal (applies to non-numeric resul ts) [facility] ([facility]) ID Date Data Source [id number] 07/31/2020 10:01:00 AM EDT [facility] ([facility]) ID Date Data Source [id number] 04/23/2020 02:44:00 PM EDT [facility] ([facility]) Name Value Range Interpretation Code Description Data Debi rce(s) Supporting Document(s) White Blood Count 10.6 5.0-10.0 [facility] ([facility]) Platelets 365 172-450 [facility] Red Blood Count 4.79 4.00-5.40 [facility] ([facility]) Hemoglobin 12.5 [facility] ([facility]) Hematocrit 39.5 [facility] ([facility]) ID Date Data Source [id number] 04/23/2020 02:44:00 PM EDT [facility] ([facility]) Name Value Range Interpretation Code Description Data Debi rce(s) Supporting Document(s) Magnesium Level 2.3 1.8-2.4 [facility] ([facility]) ID Date Data Source [id number] 04/23/2020 02:44:00 PM EDT [facility] ([facility]) Name Value Range Interpretation Code Description Data Debi rce(s) Supporting Document(s) Glucose 71 70-100 [facility]) Blood Urea Nitrogen 27 7-18 [facility] ([facility]) Sodium 140 136-145 [facility] Creatinine 1.07 0.6-1.0 [facility] ([facility]) Potassium 4.0 3.5-5.1 [facility] Chloride 108 98-107 [facility] Calcium 9.0 8.2-9.6 [facility] Carbon Dioxide 25 21-32 [facility] ([facility]) Glomerular filtration rate/1.73 sq M.pre dicted [Volume Rate/Area] in Serum or Plasma by Creatinine-based formula (MDRD) 54.0 [facility] ([facility]) ID Date Data Source [id number] 04/18/2020 02:49:00 PM EDT [facility] ([facility]) Name Value Range Interpretation Code Description Data Debi rce(s) Supporting Document(s) Natriuretic peptide.B prohormone N-Terminal [Mass/volu me] in Serum or Plasma 222 [facility]) Troponin Laboratory test result [facility] ([facility]) ID Date Data Source [id number] 04/18/2020 02:49:00 PM EDT [facility] ([facility]) Name Value Range Interpretation Code Description Data Debi rce(s) Supporting Document(s) Creatine kinase [Enzymatic activity/volume] in Serum or Plasma 119 [facility] ([facility]) CPK-MB 3.0 [facility] ([facility]) ID Date Data Source [id number] 04/17/2020 03:01:00 PM EDT [facility] ([facility]) Name Value Range Interpretation Code Description Data Debi rce(s) Supporting Document(s) Thyroid Stimulating Hormone 6.590 ME [facility] ([facility]) ID Date Data Source NASAL AND SINUS CULTURE 12/03/2019 12:00:00 AM EST [email or web address] ([facility]) Name Value Range Interpretation Code Description Data Debi rce(s) Supporting Document(s) FULL REPORT IN LAB NOTES ([facility]CW and [facility]). NASAL AND SINUS CULTURE eCW1 ([facility]) ID Date Data Source [id number] 11/22/2019 05:23:00 PM EST [facility] ) Name Value Range Interpretation Code Description Data Debi rce(s) Supporting Document(s) Rheumatoid factor [Units/volume] in Serum or Plasma Laboratory t est result Normal (applies to non-numeric results) [facility], ) will discuss at follow-up Cyclic citrullinated peptide IgG Ab [Units/volume] in Serum or Plasma 10 units 0-19 Normal (applies to non-numeric results) [facility] ([facility], ) will discuss at follow-up ID Date Data Source [id number] 11/22/2019 05:23:00 PM EST [facility] ([facility], ) Name Value Range Interpretation Code Description Data Debi rce(s) Supporting Document(s) Aureobasidium Pullulans Laboratory test result N ormal (applies to non-numeric results) [facility] ([facility], ) will discuss at follow-up Aspergillus Fumigatus AB Laboratory test result Normal (applies to non-numeric results) [facility] ([facility], ) will discuss at follow-up Micropolyspora Faeni AB Laboratory test result N ormal (applies to non-numeric results) [facility] ([facility], ) will discuss at follow-up Roca Serum AB Laboratory test result Normal (a pplies to non-numeric results) [facility] ([facility]) will discuss at follow-up Thermoactinomyces Sacchari Laboratory test result Normal (applies to non- numeric results) [facility] ([facility]) will discuss at follow-up Thermoactinomyces Vulgaris Laboratory test result Normal (applies to non- numeric results) [facility] ([facility]) will discuss at follow-up ID Date Data Source [id number] 11/22/2019 05:23:00 PM EST [facility] ([facility]) Name Value Range Interpretation Code Description Data Debi rce(s) Supporting Document(s) Glucose, Fasting 114 mg/dL 70-100 Above high normal [facility], ) will discuss at follow-up Glomerular Filtration Rate 48.8 Normal (applies to n on-numeric results) [facility] ([facility], ) will discuss at follow-up Blood Urea Nitrogen 17 mg/dL 7-18 Normal (applies to non-nume reece results) [facility] ([facility]) will discuss at follow-up Creatinine For GFR 1.17 mg/dL 0.55-1.30 Normal (applies to non -numeric results) [facility] ([facility]) will discuss at follow-up Sodium Level 142 meq/L 136-145 Normal (applies to non-numeric res ults) [facility] ([facility]) will discuss at follow-up Potassium Serum 4.1 meq/L 3.5-5.1 Normal (applies to non-numeric results) [facility] ([facility]) will discuss at follow-up Carbon Dioxide Level 29 meq/L 21-32 Normal (applies to non-num tacho results) [facility] ([facility]) will discuss at follow-up Chloride Level 106 meq/L 98-107 Normal (applies to non-numeric r esults) [facility] will discuss at follow-up Anion Gap 7 meq/L 8-16 Below low normal [facility] ( [facility], ) will discuss at follow-up Calcium Level 9.0 mg/dL 8.8-10.2 Normal (applies to non-numeric re sults) [facility] ([facility], ) will discuss at follow-up Procedure Social History Code Duration Value Status Description Data Source(s ) Smoking 10/16/2020 12:00:00 AM EST - 10/31/2013 12:00:00 AM EST Patient is a former smoker completed Patient is a former smoker [facility] ([facility], ) Smoking 08/27/2020 12:00:00 AM EDT Former Smoker completed Former Smoker [email or web address] ([facility]) Smoking 08/27/2020 12:00:00 AM EDT Former Smoker completed Former Smoker [email or web address] ([facility]) Smoking 08/27/2020 12:00:00 AM EDT Former Smoker completed Former Smoker [email or web address] ([facility]) Smoking 08/27/2020 12:00:00 AM EDT Former Smoker completed Former Smoker [email or web address] ([facility]) Smoking 08/27/2020 12:00:00 AM EDT Former Smoker completed Former Smoker [email or web address] ([facility]) Smoking 08/27/2020 12:00:00 AM EDT Former Smoker completed Former Smoker [email or web address] ([facility]) Smoking 08/27/2020 12:00:00 AM EDT Former Smoker completed Former Smoker eCW1 ([facility]) Smoking 08/27/2020 12:00:00 AM EDT Former Smoker completed Former Smoker [email or web address] ([facility]) Smoking 08/27/2020 12:00:00 AM EDT Former Smoker completed Former Smoker eCW1 ([facility]) Smoking 08/27/2020 12:00:00 AM EDT Former Smoker completed Former Smoker eCW1 ([facility]) Smoking 08/27/2020 12:00:00 AM EDT Former Smoker completed Former Smoker [email or web address] ([facility]) Smoking 08/27/2020 12:00:00 AM EDT Former Smoker completed Former Smoker [email or web address] ([facility]) Smoking 08/22/2020 12:00:00 AM EDT Patient is a former smoker completed Patient is a former smoker [facility] ([facility]) Smoking 08/07/2020 12:00:00 AM EDT Former Smoker completed Former Smoker [email or web address] ([facility]) Smoking 08/07/2020 12:00:00 AM EDT Former Smoker completed Former Smoker [email or web address] ([facility]) Smoking 08/07/2020 12:00:00 AM EDT Former Smoker completed Former Smoker [email or web address] ([facility]) Smoking 05/05/2020 12:00:00 AM EDT Former Smoker completed Former Smoker eCW1 ([facility]) Smoking 05/05/2020 12:00:00 AM EDT Former Smoker completed Former Smoker [email or web address] ([facility]) Smoking 04/10/2020 12:00:00 AM EDT Former Smoker completed Former Smoker [email or web address] ([facility]) Smoking 04/10/2020 12:00:00 AM EDT Former Smoker completed Former Smoker [email or web address] ([facility]) Smoking 04/10/2020 12:00:00 AM EDT Former Smoker completed Former Smoker [email or web address] ([facility]) Smoking 04/10/2020 12:00:00 AM EDT Former Smoker completed Former Smoker [email or web address] ([facility]) Vital Signs ID Date Data Source UNK Name Value Range Interpretation Code Description Data Source(s) Body weight 74.844 kg 74.844 kg [facility] ([facility] [place] body weight 110 [lb_av] 110 [lb_av] [facility] T ([facility]) Body mass index (BMI) [Ratio] 30.2 kg/m2 30.2 k g/m2 [facility] [facility] ([facility]) Body weight 165.00 [lb_av] 165.00 [lb_av] MEDEN T ([facility]) verbla per the pt Body height 62 [in_i] 62 [in_i] MEDENT ([facility]) 5'2" Body temperature 95.9 [degF] 95.9 [degF] MEDENT ([facility], ) Oxygen saturation in Arterial blood by Pulse oximetry 916 % 916 % [facility] ([facility]) Heart rate 83 /min 83 /min [facility] ([facility]) Diastolic blood pressure 70 mm[Hg] 70 mm[Hg] [facility] ([facility]) Systolic blood pressure 122 mm[Hg] 122 mm[Hg] [facility] ([facility]) Body surface area Derived from formula 1.76 m2 1.76 m2 [facility] ([facility]) Body surface area Derived from formula 1.70 m2 1.70 m2 [facility] ([facility]) Body mass index (BMI) [Ratio] 31.5 kg/m2 31.5 k g/m2 [facility] ([facility]) Body height 60 [in_i] 60 [in_i] [facility] ([facility]) 5'0" Body weight 73.200 kg 73.200 kg [facility] ([facility]) Body weight 161.38 [lb_av] 161.38 [lb_av] MEDEN T ([facility]) Oxygen saturation in Arterial blood by Pulse oximetry 98 % 98 % [facility] ([facility]) oxygen set 5L Respiratory rate 16 /min 16 /min [facility] ( [facility]) Body temperature 98.5 [degF] 98.5 [degF] [facility] ([facility]) Heart rate 75 /min 75 /min [facility] ([facility]) Diastolic blood pressure 80 mm[Hg] 80 mm[Hg] [facility] ([facility]) Systolic blood pressure 120 mm[Hg] 120 mm[Hg] [facility] ([facility]) Body surface area Derived from formula 1.70 m2 1.70 m2 [facility] ([facility]) Body mass index (BMI) [Ratio] 31.5 kg/m2 31.5 k g/m2 [facility] ([facility]) Body height 60 [in_i] 60 [in_i] [facility] ([facility]) 5'0" Body weight 73.256 kg 73.256 kg [facility] ([facility]) Body weight 161.50 [lb_av] 161.50 [lb_av] MEDEN T ([facility]) Oxygen saturation in Arterial blood by [facility]ulse oximetry 98 % 98 % [facility] O2 set at 4L Respiratory rate 16 /min 16 /min [facility] ( [facility]) Body temperature 96.0 [degF] 96.0 [degF] [facility] ([facility]) Heart rate 58 /min 58 /min [facility] ([facility]) Diastolic blood pressure 82 mm[Hg] 82 mm[Hg] [facility] ([facility]) Systolic blood pressure 124 mm[Hg] 124 mm[Hg] [facility] Body surface area Derived from formula 1.75 m2 1.75 m2 [facility] ([facility], ) Body weight 73.256 kg 73.256 kg [facility] ([facility], ) Junction body weight 110 [lb_av] 110 [lb_av] [facility] Body mass index (BMI) [Ratio] 29.5 kg/m2 29.5 k g/m2 [facility] ([facility], ) Body weight 161.50 [lb_av] 161.50 [lb_av] [facility] Body height 62 [in_i] 62 [in_i] [facility] ([facility], ) 5'2" Body temperature 97.1 [degF] 97.1 [degF] [facility] ([facility], ) Oxygen saturation in Arterial blood by Pulse oximetry 974 % 974 % [facility] ([facility], ) Heart rate 66 /min 66 /min [facility] ([facility], ) Diastolic blood pressure 70 mm[Hg] 70 mm[Hg] [facility] ([facility], ) Systolic blood pressure 118 mm[Hg] 118 mm[Hg] [facility] Diastolic blood pressure 66 mm[Hg] 66 mm[Hg] eCW1 ([facility]) Systolic blood pressure 138 mm[Hg] 138 mm[Hg] e CW1 ([facility]) Body temperature 96.6 [degF] 96.6 [degF] eCW1 ( [facility]) Respiratory rate 20 /min 20 /min eCW1 ([facility]) Heart rate 87 /min 87 /min eCW1 ([facility]) Body mass index (BMI) [Ratio] 29.88 kg/m2 29.88 kg/m2 eCW1 ([facility]) Body height 62 [in_i] 62 [in_i] eCW1 ([facility]) Body weight 163.4 [lb_av] 163.4 [lb_av] eCW1 ([facility]) Diastolic blood pressure--sitting 40 mm[Hg] 40 mm[Hg] MEDENT ([facility]) large cuff, Ra Systolic blood pressure--sitting 82 mm[Hg] 82 mm[Hg] [facility] ([facility]) large cuff, Ra Heart rate 63 /min 63 /min [facility] ([facility]) Body mass index (BMI) [Ratio] 29.4 kg/m2 29.4 k g/m2 [facility] ([facility]) Body height 62 [in_i] 62 [in_i] MEDENT ([facility]) 5'2" Body weight 161.00 [lb_av] 161.00 [lb_av] MEDEN T ([facility]) Diastolic blood pressure--sitting 66 mm[Hg] 66 mm[Hg] [facility] ([facility]) CBP adult cuff, [place] Systolic blood pressure--sitting 106 mm[Hg] 106 mm[Hg] MED[facility] ([facility]) CBP adult cuff, [place] Heart rate 72 /min 72 /min [facility] ([facility]) Body mass index (BMI) [Ratio] 31.3 kg/m2 31.3 k g/m2 [facility] ([facility]) Body height 62 [in_i] 62 [in_i] MEDENT ([facility]) 5'2" Body weight 171.00 [lb_av] 171.00 [lb_av] MEDEN T ([facility]) Diastolic blood pressure 66 mm[Hg] 66 mm[Hg] eCW1 ([facility]) Systolic blood pressure 110 mm[Hg] 110 mm[Hg] e CW1 ([facility]) Body temperature 98.5 [degF] 98.5 [degF] eCW1 ( [facility]) Respiratory rate 20 /min 20 /min eCW1 ([facility]) Heart rate 69 /min 69 /min eCW1 ([facility]) Body mass index (BMI) [Ratio] 31.60 kg/m2 31.60 kg/m2 eCW1 ([facility]) Body height 62 [in_i] 62 [in_i] eCW1 ([facility]) Body weight 172.8 [lb_av] 172.8 [lb_av] eCW1 ([facility]) Diastolic blood pressure 74 mm[Hg] 74 mm[Hg] eCW1 ([facility]) Systolic blood pressure 113 mm[Hg] 113 mm[Hg] e CW1 ([facility]) Body temperature 98.8 [degF] 98.8 [degF] eCW1 ( [facility]) Respiratory rate 20 /min 20 /min eCW1 ([facility]) Heart rate 79 /min 79 /min eCW1 ([facility]) Body mass index (BMI) [Ratio] 31.97 kg/m2 31.97 kg/m2 eCW1 ([facility]) Body height 62 [in_us] 62 [in_us] eCW1 ([facility]) Body weight Measured 174.8 [lb_av] 174.8 [lb_av ] eCW1 ([facility]) Diastolic blood pressure 62 mm[Hg] 62 mm[Hg] eCW1 ([facility]) Systolic blood pressure 114 mm[Hg] 114 mm[Hg] e CW1 ([facility]) Body temperature 99.2 [degF] 99.2 [degF] eCW1 ( [facility]) Respiratory rate 20 /min 20 /min eCW1 ([facility]) Heart rate 89 /min 89 /min eCW1 ([facility]) Body mass index (BMI) [Ratio] 32.15 kg/m2 32.15 kg/m2 eCW1 ([facility]) Body height 62 [in_i] 62 [in_i] eCW1 ([facility]) Body weight 175.8 [lb_av] 175.8 [lb_av] eCW1 ([facility]) Body weight 79.380 kg 79.380 kg MEDENT ([facility], ) Junction body weight 110 [lb_av] 110 [lb_av] MEDEN T ([facility]) Body mass index (BMI) [Ratio] 32.0 kg/m2 32.0 k g/m2 [facility] ([facility]) Body weight 175.00 [lb_av] 175.00 [lb_av] [facility] Body height 62 [in_i] 62 [in_i] [facility] 5'2" Body temperature 98.8 [degF] 98.8 [degF] [facility] ([facility]) Oxygen saturation in Arterial blood by Pulse oximetry 91 % 91 % [facility] ([facility]) o2 sat on 4l Heart rate 73 /min 73 /min [facility] ([facility]) Diastolic blood pressure 68 mm[Hg] 68 mm[Hg] [facility] ([facility]) Systolic blood pressure 102 mm[Hg] 102 mm[Hg] M EDENT ([facility]) Diastolic blood pressure 56 mm[Hg] 56 mm[Hg] eCW1 ([facility]) Systolic blood pressure 114 mm[Hg] 114 mm[Hg] e CW1 ([facility]) Body temperature 97.2 [degF] 97.2 [degF] eCW1 ( [facility]) Respiratory rate 20 /min 20 /min eCW1 ([facility]) Heart rate 96 /min 96 /min eCW1 ([facility]) Body mass index (BMI) [Ratio] 32.15 kg/m2 32.15 kg/m2 eCW1 ([facility]) Body height 62 [in_us] 62 [in_us] eCW1 ([facility]) Body weight Measured 175.8 [lb_av] 175.8 [lb_av ] W1 ([facility]) Body weight 80.968 kg 80.968 kg [facility] ([facility]) Body mass index (BMI) [Ratio] 32.6 kg/m2 32.6 k g/m2 [facility] Body weight 178.50 [lb_av] 178.50 [lb_av] MEDEN T ([facility]) Body height 62 [in_i] 62 [in_i] [facility] ([facility]) 5'2" Oxygen saturation in Arterial blood by Pulse oximetry 86 % 86 % [facility] ([facility]) o2 sat on 3L pulsed, 96% 02 sat on 4L co ntinuous Heart rate 69 /min 69 /min [facility] ([facility]) Diastolic blood pressure 63 mm[Hg] 63 mm[Hg] [facility] ([facility]) Systolic blood pressure 124 mm[Hg] 124 mm[Hg] [facility] Diastolic blood pressure 62 mm[Hg] 62 mm[Hg] eCW1 ([facility]) Systolic blood pressure 110 mm[Hg] 110 mm[Hg] e CW1 ([facility]) Body temperature 98.4 [degF] 98.4 [degF] eCW1 ( [facility]) Respiratory rate 20 /min 20 /min eCW1 ([facility]) Heart rate 81 /min 81 /min eCW1 ([facility]) Body mass index (BMI) [Ratio] 32.81 kg/m2 32.81 kg/m2 W1 ([facility]) Body height 62 [in_us] 62 [in_us] eCW1 ([facility]) Body weight Measured 179.4 [lb_av] 179.4 [lb_av ] W1 ([facility]) Body temperature 97.4 [degF] 97.4 [degF] eCW1 ( [facility]) Respiratory rate 18 /min 18 /min eCW1 ([facility]) Heart rate 74 /min 74 /min eCW1 ([facility]) Body mass index (BMI) [Ratio] 32.88 kg/m2 32.88 kg/m2 eCW1 ([facility]) Body height 62 [in_us] 62 [in_us] eCW1 ([facility]) Body weight Measured 179.8 [lb_av] 179.8 [lb_av ] eCW1 ([facility]) Diastolic blood pressure 78 mm[Hg] 78 mm[Hg] eCW1 ([facility]) Systolic blood pressure 118 mm[Hg] 118 mm[Hg] e CW1 ([facility]) Body temperature 98.0 [degF] 98.0 [degF] eCW1 ( [facility]) Respiratory rate 18 /min 18 /min eCW1 ([facility]) Heart rate 86 /min 86 /min eCW1 ([facility]) Body mass index (BMI) [Ratio] 33.10 kg/m2 33.10 kg/m2 eCW1 ([facility]) Body height 62 [in_us] 62 [in_us] eCW1 ([facility]) Body weight Measured 181.0 [lb_av] 181.0 [lb_av ] eCW1 ([facility]) Body weight 83.916 kg 83.916 kg [facility]EARNEST ([facility], ) Body mass index (BMI) [Ratio] 33.8 kg/m2 33.8 k g/m2 [facility] ([facility], ) Body weight 185.00 [lb_av] 185.00 [lb_av] RICKYEN T ([facility], ) Body height 62 [in_i] 62 [in_i] [facility] 5'2" Oxygen saturation in Arterial blood by Pulse oximetry 91 % 91 % [facility] o2 sat on 3l Heart rate 79 /min 79 /min [facility] ([facility], ) Diastolic blood pressure 78 mm[Hg] 78 mm[Hg] [facility] ([facility], ) Systolic blood pressure 122 mm[Hg] 122 mm[Hg] [facility] Diastolic blood pressure 59 mm[Hg] 59 mm[Hg] eCW1 ([facility]) Systolic blood pressure 124 mm[Hg] 124 mm[Hg] e CW1 ([facility]) Body temperature 98.1 [degF] 98.1 [degF] eCW1 ( [facility]) Respiratory rate 20 /min 20 /min eCW1 ([facility]) Heart rate 84 /min 84 /min eCW1 ([facility]) Body mass index (BMI) [Ratio] 33.43 kg/m2 33.43 kg/m2 eCW1 ([facility]) Body height 62 [in_us] 62 [in_us] eCW1 ([facility]) Body weight Measured 182.8 [lb_av] 182.8 [lb_av ] eCW1 ([facility]) Body weight 83.916 kg 83.916 kg [facility] ([facility], ) Body mass index (BMI) [Ratio] 33.8 kg/m2 33.8 k g/m2 [facility] ([facility], ) Body weight 185.00 [lb_av] 185.00 [lb_av] MEDEN T ([facility], ) Body height 62 [in_i] 62 [in_i] [facility] ([facility], ) 5'2" Oxygen saturation in Arterial blood by Pulse oximetry 91 % 91 % [facility] ([facility], ) o2 sat on 3l pulsed Heart rate 67 /min 67 /min [facility] ([facility], ) Diastolic blood pressure 74 mm[Hg] 74 mm[Hg] [facility] Systolic blood pressure 122 mm[Hg] 122 mm[Hg] [facility] Diastolic blood pressure 62 mm[Hg] 62 mm[Hg] eCW1 ([facility]) Systolic blood pressure 128 mm[Hg] 128 mm[Hg] e CW1 ([facility]) Body temperature 98.9 [degF] 98.9 [degF] eCW1 ( [facility]) Respiratory rate 20 /min 20 /min eCW1 ([facility]) Heart rate 87 /min 87 /min eCW1 ([facility]) Body mass index (BMI) [Ratio] 33.47 kg/m2 33.47 kg/m2 eCW1 ([facility]) Body height 62 [in_us] 62 [in_us] eCW1 ([facility]) Body weight Measured 183 [lb_av] 183 [lb_av] eC W1 ([facility]) Diastolic blood pressure 63 mm[Hg] 63 mm[Hg] eCW1 ([facility]) Systolic blood pressure 131 mm[Hg] 131 mm[Hg] e CW1 ([facility]) Body temperature 96.5 [degF] 96.5 [degF] eCW1 ( [facility]) Respiratory rate 18 /min 18 /min eCW1 ([facility]) Heart rate 97 /min 97 /min eCW1 ([facility]) Body mass index (BMI) [Ratio] 34.02 kg/m2 34.02 kg/m2 eCW1 ([facility]) Body height 62 [in_us] 62 [in_us] eCW1 ([facility]) Body weight Measured 186 [lb_av] 186 [lb_av] eC W1 ([facility]) Diastolic blood pressure 74 mm[Hg] 74 mm[Hg] eCW1 ([facility]) Systolic blood pressure 116 mm[Hg] 116 mm[Hg] e CW1 ([facility]) Body temperature 98.3 [degF] 98.3 [degF] eCW1 ( [facility]) Respiratory rate 20 /min 20 /min eCW1 ([facility]) Heart rate 87 /min 87 /min eCW1 ([facility]) Body mass index (BMI) [Ratio] 33.07 kg/m2 33.07 kg/m2 eCW1 ([facility]) Body height 62 [in_us] 62 [in_us] eCW1 ([facility]) Body weight Measured 180.8 [lb_av] 180.8 [lb_av ] eCW1 ([facility]) ID Date Data Source [id number] 10/21/2020 10:23:18 AM EST [facility] Name Value Range Interpretation Code Description Data Source(s) WEIGHT RECORDED 161.00 pounds 161.00 pounds [facility] Height 60 Inches 060 Inches [facility] Patient Treatment Plan of Care Planned Activity Planned Date Details Description Data Source (s) Acetaminophen 325 MG / Hydrocodone Bitartrate 5 MG Ora l Tablet 11/10/2020 12:00:00 AM EST eCW1 ([facility]) Acetaminophen 325 MG / Hydrocodone Bitartrate 5 MG Ora l Tablet 10/08/2020 12:00:00 AM EST eCW1 ([facility]) Acetaminophen 325 MG / Hydrocodone Bitartrate 5 MG Ora l Tablet 10/08/2020 12:00:00 AM EST eCW1 ([facility]) [place] 150 MCG 09/01/2020 12:00:00 AM EST eCW1 ([facility]) [place] 150 MCG 09/01/2020 12:00:00 AM EST eCW1 ([facility]) [place] 150 MCG 09/01/2020 12:00:00 AM EST eCW1 ([facility]) [place] 150 MCG 09/01/2020 12:00:00 AM EST eCW1 ([facility]) [place] 150 MCG 09/01/2020 12:00:00 AM EST eCW1 ([facility]) [place] 150 MCG 09/01/2020 12:00:00 AM EST eCW1 ([facility]) [place] 150 MCG 09/01/2020 12:00:00 AM EST eCW1 ([facility]) 168 HR Buprenorphine 0.01 MG/HR Transdermal Patch [BuT rans] 08/27/2020 12:00:00 AM EDT eCW1 ([facility]) 168 HR Buprenorphine 0.01 MG/HR Transdermal Patch [BuT rans] 08/27/2020 12:00:00 AM EDT eCW1 ([facility]) 168 HR Buprenorphine 0.01 MG/HR Transdermal Patch [BuT rans] 08/27/2020 12:00:00 AM EDT eCW1 ([facility]) Acetaminophen 325 MG / Hydrocodone Bitartrate 5 MG Ora l Tablet 08/27/2020 12:00:00 AM EDT eCW1 ([facility]) 168 HR Buprenorphine 0.01 MG/HR Transdermal Patch [BuT rans] 08/27/2020 12:00:00 AM EDT eCW1 ([facility]) Acetaminophen 325 MG / Hydrocodone Bitartrate 5 MG Ora l Tablet 08/27/2020 12:00:00 AM EDT eCW1 ([facility]) Acetaminophen 325 MG / Hydrocodone Bitartrate 5 MG Ora l Tablet 08/27/2020 12:00:00 AM EDT eCW1 ([facility]) 168 HR Buprenorphine 0.01 MG/HR Transdermal Patch [BuT rans] 08/27/2020 12:00:00 AM EDT eCW1 ([facility]) Acetaminophen 325 MG / Hydrocodone Bitartrate 5 MG Ora l Tablet 08/27/2020 12:00:00 AM EDT eCW1 ([facility]) 168 HR Buprenorphine 0.01 MG/HR Transdermal Patch [BuT rans] 08/27/2020 12:00:00 AM EDT eCW1 ([facility]) Acetaminophen 325 MG / Hydrocodone Bitartrate 5 MG Ora l Tablet 08/27/2020 12:00:00 AM EDT eCW1 ([facility]) 168 HR Buprenorphine 0.01 MG/HR Transdermal Patch [BuT rans] 08/27/2020 12:00:00 AM EDT eCW1 ([facility]) Acetaminophen 325 MG / Hydrocodone Bitartrate 5 MG Ora l Tablet 08/27/2020 12:00:00 AM EDT eCW1 ([facility]) 168 HR Buprenorphine 0.01 MG/HR Transdermal Patch [BuT rans] 08/27/2020 12:00:00 AM EDT eCW1 ([facility]) 168 HR Buprenorphine 0.01 MG/HR Transdermal Patch [BuT rans] 08/27/2020 12:00:00 AM EDT eCW1 ([facility]) 168 HR Buprenorphine 0.01 MG/HR Transdermal Patch [BuT rans] 08/27/2020 12:00:00 AM EDT eCW1 ([facility]) Acetaminophen 325 MG / Hydrocodone Bitartrate 5 MG Ora l Tablet 08/27/2020 12:00:00 AM EDT eCW1 ([facility]) 168 HR Buprenorphine 0.01 MG/HR Transdermal Patch [BuT rans] 08/27/2020 12:00:00 AM EDT eCW1 ([facility]) Acetaminophen 325 MG / Hydrocodone Bitartrate 5 MG Ora l Tablet 08/27/2020 12:00:00 AM EDT eCW1 ([facility]) 168 HR Buprenorphine 0.01 MG/HR Transdermal Patch [BuT rans] 08/27/2020 12:00:00 AM EDT eCW1 ([facility]) Acetaminophen 325 MG / Hydrocodone Bitartrate 5 MG Ora l Tablet 08/27/2020 12:00:00 AM EDT eCW1 ([facility]) [place] 1 08/14/2020 12:00:00 AM EDT eCW1 ([facility]) [place] 1 08/14/2020 12:00:00 AM EDT eCW1 ([facility]) [place] 1 08/14/2020 12:00:00 AM EDT eCW1 ([facility]) [place] 1 08/14/2020 12:00:00 AM EDT eCW1 ([facility]) [place] 1 08/14/2020 12:00:00 AM EDT eCW1 ([facility]) [place] 1 08/14/2020 12:00:00 AM EDT eCW1 ([facility]) [place] 1 08/14/2020 12:00:00 AM EDT eCW1 ([facility]) [place] 1 08/14/2020 12:00:00 AM EDT eCW1 ([facility]) [place] 1 08/14/2020 12:00:00 AM EDT eCW1 ([facility]) [place] 1 08/14/2020 12:00:00 AM EDT eCW1 ([facility]) [place] 1 08/14/2020 12:00:00 AM EDT eCW1 ([facility]) [place] 1 08/14/2020 12:00:00 AM EDT eCW1 ([facility]) [place] 1 08/14/2020 12:00:00 AM EDT eCW1 ([facility]) Sulfamethoxazole 400 MG / Trimethoprim 80 MG Oral Tabl et 05/05/2020 12:00:00 AM EDT eCW1 ([facility]) Sulfamethoxazole 400 MG / Trimethoprim 80 MG Oral Tabl et 05/05/2020 12:00:00 AM EDT eCW1 ([facility]) tizanidine 4 MG Oral Tablet 04/23/2020 12:00:00 AM EDT eCW1 ([facility]) Lisinopril 2.5 MG Oral Tablet 04/16/2020 12:00:00 AM EDT eCW1 ([facility]) Lisinopril 2.5 MG Oral Tablet 04/16/2020 12:00:00 AM EDT eCW1 ([facility]) Acetaminophen 325 MG / Hydrocodone Bitartrate 5 MG Ora l Tablet 02/26/2020 12:00:00 AM EDT eCW1 ([facility]) Acetaminophen 325 MG / Hydrocodone Bitartrate 5 MG Ora l Tablet 01/24/2020 12:00:00 AM EDT eCW1 ([facility]) cetirizine hydrochloride 10 MG Oral Tablet 01/07/2020 12:00:00 AM E DT eCW1 ([facility]) Nystatin 100 UNT/MG Topical Powder 01/03/2020 12:00:00 AM EST eCW1 ([facility]) Acetaminophen 325 MG / Hydrocodone Bitartrate 5 MG Ora l Tablet 12/03/2019 12:00:00 AM EST eCW1 ([facility]) Acetaminophen 325 MG / Hydrocodone Bitartrate 5 MG Ora l Tablet 10/22/2019 12:00:00 AM EST eCW1 ([facility]) Albuterol Sulfate HFA 108 (90 Base) MCG/ACT 10/22/2019 12:00:00 AM EST eCW1 ([facility]) Acetaminophen 325 MG / Hydrocodone Bitartrate 5 MG Ora l Tablet 09/21/2019 12:00:00 AM EST eCW1 ([facility]) Acetaminophen 325 MG / Hydrocodone Bitartrate 5 MG Ora l Tablet 09/21/2019 12:00:00 AM EST eCW1 ([facility])
[2020-11-17 04:38] LABS: FREE T4 1.02 NG/DL (0.76-1.46)
[2020-11-17] MEDS: OCUVITE 1 TAB PO SCH (08:36)
[2020-11-17] MEDS: buPROPion 75 MG TAB PO SCH ×2 (08:36→22:08)
[2020-11-17] MEDS: ASPIRIN 81 MG ENTERIC TAB PO SCH (08:36)
[2020-11-17] MEDS: ATORVASTATIN 20 MG TAB PO SCH (08:37)
[2020-11-17] MEDS: OMEPRAZOLE 20 MG CAP PO SCH (08:37)
[2020-11-17] MEDS: CETIRIZINE (ZyrTEC) 10 MG TAB PO SCH (08:37)
[2020-11-17] MEDS: POTASSIUM CHLORIDE 10 MEQ SR TABLET PO SCH (08:37)
[2020-11-17] MEDS: PREGABALIN 75 MG CAP(LYRICA) PO SCH ×3 (08:37→20:57)
[2020-11-17] MEDS: AZITHROMYCIN 250MG TABLET PO SCH (08:37)
[2020-11-17] MEDS: ACETAMINOPHEN TAB 650MG DOSE (2X325MG) PO PRN ×2 (08:37→21:00)
[2020-11-17] MEDS: HumaLOG INSULIN (NovoLOG) PER UNIT SC SCH ×4 (08:38→20:58)
[2020-11-17] MEDS: ENOXAPARIN 40MG/0.4ML SYRINGE (J1650 PER 10MG) SC SCH (08:38)
[2020-11-17] MEDS ORDERED: VITAMIN D 50,000 UNITS CAPSULE (ERGOCALCIFEROL 1.25MG) PO SCH (09:00)
[2020-11-17] MEDS ORDERED: EPINEPHrine INJ 1 MG/ML 1ML AMP INJ PRN (09:00)
[2020-11-17] MEDS ORDERED: SPIRONOLACTONE 25 MG TAB PO SCH (09:00)
[2020-11-17] MEDS ORDERED: TORSEMIDE 20 MG TAB PO SCH (09:00)
--- NOTE | 2020-11-17 09:14 | ECGEPIP ---
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
[2020-11-17] MEDS ORDERED: SLF 3 ML SYR IV PRN (11:15)
[2020-11-17] MEDS ORDERED: TORS10TA3 PO (11:26)
--- NOTE | 2020-11-17 11:45 | IPNPDOC ---
Text Note Date of Service The patient was seen on 11/17/20. NOTE Subjective: No any acute events overnight. Patient stated that she feels better Objective: GENERAL APPEARANCE: Patient breathing via oxygen mask HEENT: no scleral icterus, no JVD, EOMI CARDIOVASCULAR: S1S2 LUNGS: Diminished lung sounds bilaterally ABDOMEN: soft & not tender w palpitation MUSCULOSKELETAL: no cyanosis, no swelling INTEGUMENT: no generalized pallor, bruise over left orbit NEUROLOGICAL: cranial nerve function from 2-12 intact intact, follows commands, speech not dysarthric This is a 70-year-old woman with multiple medical comorbidities who requires admission to the hospital for ongoing evaluation of a syncopal event. Problems (1) Syncope Most likely due to hypotension superimposed with hypoxia. Patient developed syncope after she tried to change oxygen tank. On the admission patient was hypotensive. Most likely patient developed dehydration secondary to diuresis. PT/OT Diuretics on hold EKG did not show any acute ischemic changes CT head showed questionable normal pressure hydrocephalus. Patient does not have urinary incontinence or dementia. I discussed these findings with Dr. Ashley, he recommended follow-up with heme in the outpatient settings (2) Chronic interstitial lung disease Follow-up with yarn texturing machine operator in the outpatient settings (3) Type 2 diabetes mellitus Diabetes diet Insulin sliding scale (4) Coronary artery disease Continue home cardioprotective medications (5) Obstructive sleep apnea Patient can use her own CPAP (6) Hypertension Blood pressure under control Continue home meds (7) Cor pulmonale (chronic) Follow-up with yarn texturing machine operator in the outpatient settings VS,Fishbone, I+O VS, Fishbone, I+O Laboratory Tests 11/17/20 00:48 Vital Signs Date Time Temp Pulse Resp B/P (MAP) Pulse Ox O2 Delivery O2 Flow Rate FiO2 11/17/20 10:00 96 High Flow Mask 13.0 11/17/20 08:00 97.1 74 20 113/71 (85) I&O- Last 24 Hours up to 6 AM 11/17/20 06:00 Intake Total 545 ml Output Total 200 ml Balance 345 ml RASHEED YU DO Nov 17, 2020 11:45
[2020-11-17] MEDS ORDERED: OMEPRAZOLE 20 MG CAP PO ONE (15:45)
[2020-11-17] MEDS: SLF 3 ML SYR IV SCH ×2 (15:48→20:57)
--- NOTE | 2020-11-17 16:29 | ECGEPIP ---
[facility] Test Date: 2020-11-17 Pat Name: CASEY KU Department: Room: [place] [address] Gender: Female Events Administrative Assistant: : 1950 Requested By: RASHEED YU Order Number: [id number] Reading MD: Aileen Kramer Measurements Intervals [place] Rate: 65 P: 63 OK: 166 QRS: 15 QRSD: 82 T: 61 QT: 401 QTc: 417 Interpretive Statements SINUS RHYTHM LOW QRS VOLTAGE PRWP RATE FASTER NSSTTABN C/W 11/17/20 EARLIER Electronically Signed on 11-17-2020 16:28:58 EST by Aileen Kramer
[2020-11-17] MEDS ORDERED: tiZANidine 4 MG TAB PO PRN (21:00)
[2020-11-18] VITALS (19 sets, daily range): BP systolic 120–148; BP diastolic 65–86; O2SAT 80–97
[2020-11-18] MEDS: ALBUTEROL SULFATE 2.5 MG/0.5 ML INH NEB SOLN NEB SCH ×5 (04:00→20:16)
[2020-11-18] MEDS: SLF 3 ML SYR IV SCH ×2 (05:27→15:24)
[2020-11-18 06:14] LABS: BASO # 0.1 10^3/uL (0.0-0.2); BASO % 0.9 % (0.0-1.0); EOS # 0.4 10^3/uL (0.0-0.5); EOS % 3.5 % (0.0-3.0); HEMATOCRIT 40.6 % (36.0-47.0); HEMOGLOBIN 12.8 g/dl (12.0-15.5); LYMPH # 2.4 10^3/uL (1.5-5.0); LYMPH % 21.5 % (24.0-44.0); MEAN CORPUSCULAR HEMOGLOBIN 26.4 pg (27.0-33.0); MEAN CORPUSCULAR HGB CONC 31.5 g/dl (32.0-36.5); MEAN CORPUSCULAR VOLUME 83.9 fl (80.0-96.0); MONO # 0.8 10^3/uL (0.0-0.8); MONO % 6.8 % (0.0-5.0); NEUTROPHILS # 7.6 10^3/uL (1.5-8.5); NEUTROPHILS % 66.9 % (36.0-66.0); PLATELET COUNT, AUTOMATED 266 10^3/uL (150-450); RED BLOOD COUNT 4.84 10^6/uL (4.00-5.40); WHITE BLOOD COUNT 11.3 10^3/uL (4.0-10.0)
[2020-11-18 06:40] LABS: ALBUMIN 3.3 GM/DL (3.2-5.2); BILIRUBIN,TOTAL 0.7 MG/DL (0.2-1.0); CREATININE FOR GFR 1.07 MG/DL (0.55-1.30); MAGNESIUM LEVEL 1.8 MG/DL (1.8-2.4); POTASSIUM SERUM 3.3 MEQ/L (3.5-5.1); TOTAL PROTEIN 6.4 GM/DL (6.4-8.2)
[2020-11-18] MEDS: HumaLOG INSULIN (NovoLOG) PER UNIT SC SCH ×4 (07:15→21:00)
[2020-11-18] MEDS: ENOXAPARIN 40MG/0.4ML SYRINGE (J1650 PER 10MG) SC SCH (08:38)
[2020-11-18] MEDS: ATORVASTATIN 20 MG TAB PO SCH (08:38)
[2020-11-18] MEDS: buPROPion 75 MG TAB PO SCH ×2 (08:39→21:18)
[2020-11-18] MEDS: TORSEMIDE 10 MG TABLET PO SCH (08:39)
[2020-11-18] MEDS: ASPIRIN 81 MG ENTERIC TAB PO SCH (08:39)
[2020-11-18] MEDS: bisoproloL fumarate 5 MG TAB PO SCH (08:39)
[2020-11-18] MEDS: CETIRIZINE (ZyrTEC) 10 MG TAB PO SCH (08:39)
[2020-11-18] MEDS: POTASSIUM CHLORIDE 10 MEQ SR TABLET PO SCH (08:40)
[2020-11-18] MEDS: OMEPRAZOLE 20 MG CAP PO SCH (08:40)
[2020-11-18] MEDS: ACETAMINOPHEN TAB 650MG DOSE (2X325MG) PO PRN (08:40)
[2020-11-18] MEDS: AZITHROMYCIN 250MG TABLET PO SCH (08:40)
[2020-11-18] MEDS: PREGABALIN 75 MG CAP(LYRICA) PO SCH ×3 (08:40→21:19)
--- NOTE | 2020-11-18 11:13 | ECGEPIP ---
[facility] Test Date: 2020-11-18 Pat Name: CASEY KU Department: Room: [place] [address] Gender: Female Zoning Assistant: KATHARINE : 1950 Requested By: RASHEED YU Order Number: [id number] Reading MD: Aileen Kramer Measurements Intervals [place] Rate: 87 P: 67 IA: 164 QRS: 19 QRSD: 82 T: 0 QT: 182 QTc: 220 Interpretive Statements SINUS RHYTHM LOW QRS VOLTAGE PRWP PATTERN CONSISTENT WITH PULMONARY DISEASE STTW ABN SIMILAR TO 11/17/19 Electronically Signed on 11-18-2020 11:13:07 EST by Aileen Kramer
[2020-11-18] MEDS: EXCEDRIN MIGRAINE TABLET PO PRN (12:07)
[2020-11-18] MEDS: OCUVITE 1 TAB PO SCH (12:07)
--- NOTE | 2020-11-18 15:12 | IPNPDOC ---
Text Note Date of Service The patient was seen on 11/18/20. NOTE Subjective: No any acute events overnight. Her oxygen requirements increased today to 15 L Objective: GENERAL APPEARANCE: Patient breathing via oxygen mask HEENT: no scleral icterus, no JVD, EOMI CARDIOVASCULAR: S1S2 LUNGS: Diminished lung sounds bilaterally ABDOMEN: soft & not tender w palpitation MUSCULOSKELETAL: no cyanosis, no swelling INTEGUMENT: no generalized pallor, bruise over left orbit NEUROLOGICAL: cranial nerve function from 2-12 intact intact, follows commands, speech not dysarthric This is a 70-year-old woman with multiple medical comorbidities who requires admission to the hospital for ongoing evaluation of a syncopal event. Problems (1) Syncope Most likely due to hypotension superimposed with hypoxia. Patient developed syncope after she tried to change oxygen tank. On the admission patient was hypotensive. Most likely patient developed dehydration secondary to diuresis. PT/OT EKG did not show any acute ischemic changes CT head showed questionable normal pressure hydrocephalus. Patient does not have urinary incontinence or dementia. I discussed these findings with Dr. Ashley, he recommended follow-up with heme in the outpatient settings (2) Chronic interstitial lung disease Follow-up with soap slabber in the outpatient settings (3) Type 2 diabetes mellitus Diabetes diet Insulin sliding scale (4) Coronary artery disease Continue home cardioprotective medications (5) Obstructive sleep apnea Patient can use her own CPAP (6) Hypertension Blood pressure under control Continue home meds (7) Cor pulmonale (chronic) Follow-up with soap slabber in the outpatient settings Acute diastolic CHF Secondary to volume overload Patient was off diuretics due to dehydration BNP showed 1566 on 11/17/19 Restarted diuretics Hypothyroidism TSH 18 Started levothyroxine 50 mg VS,Fishbone, I+O VS, Fishbone, I+O Laboratory Tests 11/18/20 05:40 Vital Signs Date Time Temp Pulse Resp B/P (MAP) Pulse Ox O2 Delivery O2 Flow Rate FiO2 11/18/20 12:00 88 Venturi Mask 15.0 50 11/18/20 12:00 98.3 85 21 148/76 (100) I&O- Last 24 Hours up to 6 AM 11/18/20 06:00 Intake Total 1020 ml Output Total 900 ml Balance 120 ml RASHEED YU DO Nov 18, 2020 15:12
[2020-11-18] MEDS ORDERED: FUROSEMIDE 40MG/4ML VIAL (J1940) IV ONE (15:15)
[2020-11-19] VITALS (13 sets, daily range): BP systolic 98–124; BP diastolic 57–82; O2SAT 86–97
[2020-11-19] MEDS: ALBUTEROL SULFATE 2.5 MG/0.5 ML INH NEB SOLN NEB SCH ×3 (00:15→08:00)
[2020-11-19] MEDS ORDERED: LEVOTHYROXINE 50MCG TABLET (0.05MG) PO SCH (06:00)
[2020-11-19] MEDS: SLF 3 ML SYR IV SCH ×2 (06:14→06:15)
[2020-11-19 06:45] LABS: CALCIUM LEVEL 9.3 MG/DL (8.8-10.2); CREATININE FOR GFR 1.1 MG/DL (0.55-1.30); GLOMERULAR FILTRATION RATE 52.3 (>39); POTASSIUM SERUM 3.7 MEQ/L (3.5-5.1)
[2020-11-19] MEDS: HumaLOG INSULIN (NovoLOG) PER UNIT SC SCH (07:24)
[2020-11-19 07:55] LABS: BASO # 0.1 10^3/uL (0.0-0.2); BASO % 1.1 % (0.0-1.0); EOS # 0.6 10^3/uL (0.0-0.5); EOS % 4.8 % (0.0-3.0); HEMATOCRIT 43.3 % (36.0-47.0); HEMOGLOBIN 13.4 g/dl (12.0-15.5); LYMPH # 3.2 10^3/uL (1.5-5.0); LYMPH % 28.1 % (24.0-44.0); MEAN CORPUSCULAR HEMOGLOBIN 26.4 pg (27.0-33.0); MEAN CORPUSCULAR HGB CONC 30.9 g/dl (32.0-36.5); MEAN CORPUSCULAR VOLUME 85.2 fl (80.0-96.0); MONO # 0.8 10^3/uL (0.0-0.8); MONO % 7.2 % (0.0-5.0); NEUTROPHILS # 6.6 10^3/uL (1.5-8.5); NEUTROPHILS % 58.4 % (36.0-66.0); PLATELET COUNT, AUTOMATED 285 10^3/uL (150-450); RED BLOOD COUNT 5.08 10^6/uL (4.00-5.40); WHITE BLOOD COUNT 11.4 10^3/uL (4.0-10.0)
[2020-11-19 07:56] LABS: ALBUMIN 3.2 GM/DL (3.2-5.2); TOTAL PROTEIN 6.9 GM/DL (6.4-8.2)
[2020-11-19] MEDS: ENOXAPARIN 40MG/0.4ML SYRINGE (J1650 PER 10MG) SC SCH ×2 (09:00→09:37)
[2020-11-19] MEDS ORDERED: FUROSEMIDE 40MG/4ML VIAL (J1940) IV ONE (09:30)
[2020-11-19] MEDS: OCUVITE 1 TAB PO SCH (09:37)
[2020-11-19] MEDS: ASPIRIN 81 MG ENTERIC TAB PO SCH (09:38)
[2020-11-19] MEDS: buPROPion 75 MG TAB PO SCH (09:38)
[2020-11-19] MEDS: OMEPRAZOLE 20 MG CAP PO SCH (09:38)
[2020-11-19] MEDS: EXCEDRIN MIGRAINE TABLET PO PRN (09:38)
[2020-11-19] MEDS: bisoproloL fumarate 5 MG TAB PO SCH (09:38)
[2020-11-19] MEDS: ATORVASTATIN 20 MG TAB PO SCH (09:39)
[2020-11-19] MEDS: POTASSIUM CHLORIDE 10 MEQ SR TABLET PO SCH (09:39)
[2020-11-19] MEDS: TORSEMIDE 10 MG TABLET PO SCH (09:39)
[2020-11-19] MEDS: CETIRIZINE (ZyrTEC) 10 MG TAB PO SCH (09:39)
[2020-11-19] MEDS: AZITHROMYCIN 250MG TABLET PO SCH (09:39)
[2020-11-19] MEDS: PREGABALIN 75 MG CAP(LYRICA) PO SCH (09:39)
[2020-11-19] MEDS ORDERED: SYNT50TA PO (13:10)
--- NOTE | 2020-11-19 13:13 | DS.PDOC ---
Discharge Summary General Date of Admission Nov 17, 2020 at 03:52 Date of Discharge 11/19/20 Discharge Summary PROCEDURES PERFORMED DURING STAY: [None]. ADMITTING DIAGNOSES: Syncope Chronic interstitial lung disease Type 2 diabetes mellitus Coronary artery disease Obstructive sleep apnea Hypertension Cor pulmonale (chronic) Acute diastolic CHF Hypothyroidism DISCHARGE DIAGNOSES: Syncope Chronic interstitial lung disease Type 2 diabetes mellitus Coronary artery disease Obstructive sleep apnea Hypertension Cor pulmonale (chronic) Acute diastolic CHF Hypothyroidism COMPLICATIONS/CHIEF COMPLAINT: Chronic Interstitial Lung Disease,Syncope. HISTORY OF PRESENT ILLNESS: This is a 70-year-old woman with multiple medical comorbidities who requires admission to the hospital for ongoing evaluation of a syncopal event. HOSPITAL COURSE: During hospital stay with following showed addressed (1) Syncope Most likely due to hypotension superimposed with hypoxia. Patient developed syncope after she tried to change oxygen tank. On the admission patient was hypotensive. Most likely patient developed dehydration secondary to diuresis. PT/OT EKG did not show any acute ischemic changes CT head showed questionable normal pressure hydrocephalus. Patient does not have urinary incontinence or dementia. I discussed these findings with Dr. Ashley, he recommended follow-up with heme in the outpatient settings (2) Chronic interstitial lung disease Follow-up with water purification chemist in the outpatient settings (3) Type 2 diabetes mellitus Diabetes diet Insulin sliding scale (4) Coronary artery disease Continue home cardioprotective medications (5) Obstructive sleep apnea Patient can use her own CPAP (6) Hypertension Blood pressure under control Continue home meds (7) Cor pulmonale (chronic) Follow-up with water purification chemist in the outpatient settings Acute diastolic CHF Secondary to volume overload Patient was off diuretics due to dehydration BNP showed 1566 on 11/17/19 Restarted diuretics Hypothyroidism TSH 18 Started levothyroxine 50 mg DISCHARGE MEDICATIONS: Please see below. ALLERGIES: Please see below. PHYSICAL EXAMINATION ON DISCHARGE: VITAL SIGNS: Please see below. HEENT: no scleral icterus, no JVD, EOMI CARDIOVASCULAR: S1S2 LUNGS: Diminished lung sounds bilaterally ABDOMEN: soft & not tender w palpitation MUSCULOSKELETAL: no cyanosis, no swelling INTEGUMENT: no generalized pallor, bruise over left orbit NEUROLOGICAL: cranial nerve function from 2-12 intact intact, follows commands, speech not dysarthric LABORATORY DATA: Please see below. IMAGING: see above PROGNOSIS: fair ACTIVITY: [As tolerated]. DIET: cardiac DISPOSITION: Home Health Service. ITEMS TO FOLLOWUP ON ON OUTPATIENT: with water purification chemist, PCP in 3-5 days DISCHARGE CONDITION: [Stable]. TIME SPENT ON DISCHARGE: Greater than 40 minutes. Vital Signs/I&Os Vital Signs Date Time Temp Pulse Resp B/P (MAP) Pulse Ox O2 Delivery O2 Flow Rate FiO2 11/19/20 10:00 89 High Flow Mask 10.0 11/19/20 09:38 90 123/82 11/19/20 08:00 98.5 20 50 I&O- Last 24 Hours up to 6 AM 11/19/20 06:00 Intake Total 1255 ml Output Total 1800 ml Balance -545 ml Laboratory Data Labs 24H Laboratory Tests 2 11/18/20 16:13: Bedside Glucose (Misc Panel) 142H 11/18/20 21:16: Bedside Glucose (Misc Panel) 183H 11/19/20 06:06: Immature Granulocyte % (Auto) 0.4, Neutrophils (%) (Auto) 58.4, Lymphocytes (%) (Auto) 28.1, Monocytes (%) (Auto) 7.2H, Eosinophils (%) (Auto) 4.8H, Basophils (%) (Auto) 1.1H, Neutrophils # (Auto) 6.6, Lymphocytes # (Auto) 3.2, Monocytes # (Auto) 0.8, Eosinophils # (Auto) 0.6H, Basophils # (Auto) 0.1, Nucleated Red Blood Cells % (auto) 0.0, Anion Gap 4L, Glomerular Filtration Rate 52.3, Calcium Level 9.3, Magnesium Level 2.0, Total Bilirubin 1.0, Aspartate Amino Transf (AST/SGOT) 18, Alanine Aminotransferase (ALT/SGPT) 27, Alkaline Phosphatase 109, Total Protein 6.9, Albumin 3.2, Albumin/Globulin Ratio 0.9L CBC/BMP Laboratory Tests 11/19/20 06:06 FSBS Laboratory Tests Test 11/18/20 16:13 11/18/20 21:16 Range/Units Bedside Glucose (Misc Panel) 142 183 83-110 MG/DL Microbiology Microbiology 11/17/20 Urine Culture - Final, Complete Discharge Medications Scheduled Albuterol Sulfate (Albuterol Sulfate) 2.5 Mg/0.5 Ml Vial.neb, 1 VIAL NEB Q4H for shortness of breath Aspirin (Ecotrin) 81 Mg Tablet.dr, 81 MG PO DAILY, (Reported) Atorvastatin Calcium (Atorvastatin Calcium) 40 Mg Tablet, 40 MG PO DAILY, (Reported) Azithromycin (Azithromycin) 250 Mg Tablet, 250 MG PO DAILY, (Reported) Bisoprolol Fumarate (Bisoprolol Fumarate) 5 Mg Tablet, 2.5 MG PO DAILY, (Reported) Bupropion HCl (Bupropion HCl) 75 Mg Tablet, 75 MG PO BID, (Reported) Cetirizine HCl (Cetirizine HCl) 10 Mg Tablet, 10 MG PO DAILY, (Reported) Cyanocobalamin (Vitamin B-12) (Vitamin B-12) 2,500 Mcg Tab.subl, 1 TAB SL DAILY, (Reported) Ergocalciferol (Vitamin D2) (Vitamin D2) 50,000 Units Cap, 50,000 UNITS PO 1XWK, (Reported) unsure what day of the week Glucosamine/D3/Boswellia Mame (Osteo Bi-Flex Tablet) 1 Each Tablet, 1 EACH PO DAILY, (Reported) Metformin HCl (Metformin HCl) 500 Mg Tablet, 500 MG PO BID, (Reported) Omeprazole (Omeprazole) 20 Mg Capsule.dr, 20 MG PO DAILY, (Reported) Potassium Chloride (Potassium Chloride) 20 Meq Tablet.er, 20 MEQ PO DAILY, (Reported) Pregabalin (Pregabalin) 75 Mg Capsule, 75 MG PO Q8H, (Reported) Spironolactone (Spironolactone) 25 Mg Tablet, 25 MG PO DAILY, (Reported) Torsemide (Torsemide) 10 Mg Tablet, 10 MG PO DAILY Vit A/Vit C/Vit E/Zinc/Copper (Preservision Areds Softgel) 1 Each Capsule, 1 CAP PO DAILY, (Reported) Scheduled PRN Albuterol Sulfate (Proair Hfa) 8.5 Gm Hfa.aer.ad, 2 PUFFS INH QID PRN for S OB/WHEEZING, (Reported) Epinephrine (Epipen 2-Hank) 0.3 Mg/0.3 Ml Auto.injct, 0.3 MG IM ONCE PRN for ANAPHYLAXIS, (Reported) Tizanidine HCl (Tizanidine HCl) 4 Mg Tablet, 4 MG PO QHS PRN for MUSCLE SPASMS, (Reported) Allergies Coded Allergies: bee venom protein (honey bee) (Verified Allergy, Severe, ANAPHYLAXIS, 04/17/20) meloxicam (Verified Allergy, Severe, SOB, 04/17/20) RASHEED YU DO Nov 19, 2020 13:13
== END 2020-11-19 11:38 | disposition home health service (06) | DRG 312 ==
LOC: M ED 00:41 → M ED INP 03:52 → ENRESERV 05:19 → M PCU 06:01
PROVIDERS: ADMIT Family Medicine; ATTEND Internal Medicine
DX: R55 Syncope and collapse (principal); I50.31 Acute diastolic (congestive) heart failure; J84.9 Interstitial pulmonary disease, unspecified; G47.33 Obstructive sleep apnea (adult) (pediatric); I25.10 Atherosclerotic heart disease of native coronary artery without angina pectoris; I11.0 Hypertensive heart disease with heart failure; E11.9 Type 2 diabetes mellitus without complications; E78.2 Mixed hyperlipidemia; R09.02 Hypoxemia; M54.5 Low back pain; K21.9 Gastro-esophageal reflux disease without esophagitis; E86.0 Dehydration; I95.9 Hypotension, unspecified; J30.2 Other seasonal allergic rhinitis; M48.061 Spinal stenosis, lumbar region without neurogenic claudication; I27.81 Cor pulmonale (chronic); M81.0 Age-related osteoporosis without current pathological fracture; Z79.82 Long term (current) use of aspirin; Z79.84 Long term (current) use of oral hypoglycemic drugs; Z79.899 Other long term (current) drug therapy; Z88.6 Allergy status to analgesic agent; Z91.030 Bee allergy status; Z90.49 Acquired absence of other specified parts of digestive tract; Z95.5 Presence of coronary angioplasty implant and graft; Z87.891 Personal history of nicotine dependence; Z11.52 Encounter for screening for COVID-19

== ENCOUNTER → 2020-12-12 | Outpatient (CLI) | payer OTHER ==
[~2020-12-12] MED LIST changes: +BUPR75TA5 PO; +CYAN2500 SL; +ECOT81TA5 PO; +GLUC1TAB58 PO; +NYST1POW9 TOP; +POTA1TAB14 PO; +SPIR-10 PO; +SYNT50TA PO; +TORS10TA3 PO; +TORS20TA2 PO; +VITA50005 PO
--- NOTE | 2020-12-15 09:20 | ECWPNPC ---
PATIENT NAME: CASEY KU : 1950 GENDER: FEMALE VISIT DATE: 12/12/2020 DISCHARGE DATE: 12/12/20 1333 VISIT LOCKED DATE TIME: PHYSICIAN: JUSTICE SCHOFIELD RESOURCE: JUSTICE SCHOFIELD REASON FOR APPOINTMENT 1. LOW BACK/MED MNGMNT HISTORY OF PRESENT ILLNESS GENERAL: PATIENT IS AGREEABLE TO TELEPHONE VISIT TODAY. HAS BEEN UNABLE TO GET PRESCRIPTIONS IE: HYDROCODONE AND MULTIPLE OTHER MEDICATIONS THAT WE HAVE PRESCRIBED DUE TO INSURANCE CONSTRAINTS. RECENTLY WAS HOSPITALIZED. VERY DIFFICULT TO DO A PHONE INTERVIEW AND PATIENT HAS AGREED TO COME INTO THE CLINIC IN 6-8 WEEKS IF SHE CAN GET A WHEELCHAIR. DAUGHTER IS AWARE AND IS IN THE BACKGROUND DURING OUR PHONE VISIT TODAY.-. FALL RISK SCREENING: SCREENING :NO FALLS REPORTED IN THE LAST YEAR PAIN SCREENING: PATIENT HAS A COMPLAINT OF ACUTE OR CHRONIC PAIN :YES LOCATION OF PAIN:LOW BACK INTENSITY OF PAIN (SCALE OF 1 TO 10):3 WHAT DOES YOUR PAIN FEEL LIKE:ACHING, CONTINOUS DURATION:CONTINOUS, CONSTANT, ALL DAY PAIN IS INCREASED BY:ACTIVITIES PAIN IS DECREASED BY:USE OF PAIN MEDICATIONS NURSING NOTE: -. PAIN CENTER INTAKE QUESTIONS: DO YOU HAVE A HISTORY OF MRSA? :NO DO YOU TAKE A BLOOD THINNERS? :NO DO YOU HAVE ANY BLEEDING DISORDERS? :NO ANY NEW NUMBNESS OR WEAKNESS IN YOUR LEGS OR ARMS? :NO ANY PACEMAKER,DEFIBRILLATOR, OR DORSAL COLUMN STIMULATOR? :NO DO YOU HAVE ANY RASHES OR OPEN SORES? :NO ARE YOU ALLERGIC TO IV DYE? :NO ARE YOU DIABETIC? :YES PRE DIABETIC ANY NEW PROBLEMS WITH YOUR MEDICATIONS? :NO HAVE YOU RECEIVED A VACCINE IN THE PAST 30 DAYS? :NO DO YOU PLAN TO RECEIVE A VACCINE IN THE NEXT 21 DAYS? :NO DO YOU NEED ANY PRESCRIPTION? :NO DO YOU TAKE ANY IMMUNOSUPPRESSIVE MEDICATIONS? :NO IS THERE A CHANCE YOU COULD BE ? :NO ARE YOU BREAST FEEDING? :NO CURRENT MEDICATIONS TAKING EPIPEN 2-AZEB 0.3 MG/0.3ML SOLUTION AUTO-INJECTOR DIRECTED INTRAMUSCULARLY ONCE PRN FOR ANAPHYLAXIS TAKING OMEPRAZOLE 20 MG CAPSULE DELAYED RELEASE 1 CAPSULE 30 MINUTES BEFORE MORNING MEAL ORALLY ONCE A DAY TAKING ASPIRIN 81 81 MG TABLET DELAYED RELEASE 1 TABLET ORALLY ONCE A DAY TAKING ALBUTEROL SULFATE HFA 108 (90 BASE) MCG/ACT AEROSOL SOLUTION 2 PUFFS INHALATION QID PRN SOB/WHEEZE, NOTES: CHANGED TO QID PRN TAKING CETIRIZINE HCL 10 MG TABLET 1 TABLET ORALLY ONCE A DAY TAKING METFORMIN HCL 500 MG TABLET 1 TABLET WITH A MEAL ORALLY TWICE A DAY TAKING PRESERVISION AREDS - CAPSULE 1 CAP ORALLY ONCE DAILY TAKING LISINOPRIL 2.5 MG TABLET 1 TABLET ORALLY ONCE A DAY TAKING NYSTATIN [id number] UNIT/GM POWDER 1 APPLICATION EXTERNALLY TO GROIN TWICE A DAY PRN, NOTES: PRN TAKING VITAMIN B12 _ TABLET 1 TABLET ORALLY ONCE A DAY, NOTES: NOT ON D/C LIST-500 MG TAKING FUROSEMIDE 20 MG TABLET 40 MG ORALLY DAILY, NOTES: INCREASED TO 40 MG TAKING ALBUTEROL SULFATE (2.5 MG/3ML) 0.083% NEBULIZATION SOLUTION 3 ML INHALATION EVERY 4 HOURS NEEDED FOR SOB TAKING AZITHROMYCIN 250 MG TABLET 1 TAB ORALLY ONCE A DAY TAKING ATORVASTATIN CALCIUM 40 MG TABLET 1 TABLET ORALLY DAILY TAKING POTASSIUM CHLORIDE ER 20 MEQ TABLET EXTENDED RELEASE 1 TABLET WITH FOOD ORALLY ONCE A DAY TAKING PREGABALIN 50 MG CAPSULE 1 CAPSULE ORALLY EVERY 8 HOURS TAKING BISOPROLOL FUMARATE 5 MG TABLET 1/2 TABLET ORALLY ONCE A DAY TAKING BUPROPION HCL ER (SR) 150 MG TABLET EXTENDED RELEASE 12 HOUR 1 TABLET ORALLY TWICE A DAY TAKING TIZANIDINE HCL 4 MG TABLET 1 TAB ORALLY 3 TIMES A DAY NEEDED FOR MUSCLE SPASMS TAKING PREGABALIN 75 MG CAPSULE 1 CAPSULE ORALLY ONCE A DAY TAKING ROLLING WALKER 1 1 WITH SEAT DIRECTED DX: M51.16 TAKING BELBUCA 150 MCG FILM 1 FILM TO THE GUM BUCALLY EVERY 12 HRS MDD2 TAKING HYDROCODONE-ACETAMINOPHEN 5-325 MG TABLET 1 TABLET NEEDED ORALLY EVERY 8 HOURS WHEN NECESSARY MDD 3 NOT-TAKING BUTRANS 10 MCG/HR PATCH WEEKLY 1 PATCH TO SKIN TRANSDERMAL Q 7 DAYS=MDD NOT-TAKING GABAPENTIN 300 MG CAPSULE TAKE 3 CAPSULES BY MOUTH THREE TIMES DAILY MEDICATION LIST REVIEWED AND RECONCILED WITH THE PATIENT PAST MEDICAL HISTORY HYPERLIPIDEMIA TYPE 2 DM, GOAL HBA1C < 6.5 INTERSTITIAL LUNG DISEASE - DR. RIVAS CHRONIC LOW BACK PAIN - PAIN MANAGEMENT CAD WITH PR 2013, STENT - CARDIOLOGY DEPRESSION HX OF MIGRAINES - NEUROLOGY [place] - ON CPAP HTN, GOAL < 130/80 PER ACC/AHA ALLERGIES LATEX GLOVES: RASH/ITCHING - ALLERGY BEE STINGS: ANAPHYLAXIS - ALLERGY SOCIAL HISTORY GENERAL: TOBACCO USE ARE YOU A:FORMER SMOKER HOW LONG HAS IT BEEN SINCE YOU LAST SMOKED?5-10 YEARS LATEX QUESTIONNAIRE LATEX ALLERGY : HAVE YOU EVER DEVELOPED ANY TYPE OF REACTION AFTER HANDLING LATEX PRODUCTS SUCH RUBBER GLOVES, CONDOMS, DIAPHRAGMS, BALLOONS, SOCKS, OR UNDERWEAR?YES POWDER CAUSES RASH - PLEASE INDICATE :RUBBER GLOVES LATEX ALLERGY : HAVE YOU EVER DEVELOPED ANY TYPE OF REACTION DURING OR AFTER DENTAL APPOINTMENT, VAGINAL/RECTAL EXAMINATION, SURGICAL PROCEDURE, OR ANY OTHER EXPOSURE?NO LATEX RISK : HAVE YOU EVER HAD ANY DIFFICULTY BREATHING OR HIVES AFTER EATING OR HANDLING ANY FRUITS, OR VEGETABLES; SUCH KIWI, BANANAS, STONE FRUITS, OR CHESTNUTSNO LATEX RISK : DO YOU HAVE A PREVIOUS PERSONAL HISTORY OF MORE THAN NINE SURGERIES, SPINA BIFIDA, OR REPEATED CATHERIZATIONS? NO LATEX RISK : ARE YOU FREQUENTLY EXPOSED TO LATEX PRODUCTS IN YOUR OCCUPATION?NO DATE ASKED : 12/12/2020 ALCOHOL USE: NO. ALCOHOL SCREENING DID YOU HAVE A DRINK CONTAINING ALCOHOL IN THE PAST YEAR?NO POINTS0 INTERPRETATIONNEGATIVE RECREATIONAL DRUG USE DRUG USE?NO PATIENT DENIES ABUSE OR MISSUSED OF ANY MEDICATION DENIES PATIENT DENIES USE OF ANY ILLEGAL SUBSTANCE INCLUDING MARIJUANA OR COCAINE DENIES CAFFEINE CAFFEINE USE?YES ICED TEA, COFFEE SEXUAL HX HAD SEX IN THE LAST 12 MONTHS (VAGINAL, ORAL, OR ANAL)?NO LMP:1988 PARTIAL HYSTERECTOMY HAVE YOU EVER HAD AN STD?NO HIV / HEP-C SCREENING HIV TEST OFFERED TO PATIENT:YES DATE OFFERED:08/22/2019 TEST ACCEPTED:NO HEP-C TEST OFFERED TO PATIENT:YES DATE OFFERED:08/22/2019 REASON:PATIENT DECLINED TEST ACCEPTED:NO REASON:PATIENT DECLINED BROCHURE PROVIDED TO PATIENTYES LATTER DAY [id number] [facility] LANGUAGE LANGUAGES SPOKEN:ROMANSH EDUCATION LEVEL OF EDUCATION:COLLEGE LEARNING BARRIERS / SPECIAL NEEDS CHANGE FROM LAST VISIT?NO BARRIERS TO LEARNING?NO HEARING IMPAIRED?NO VISION IMPAIRED?YES :CORRECTIVE LENSES COGNITIVELY IMPAIRED?NO READINESS TO LEARN?YES LEARNING PREFERENCES?NO LEARNING CAPABILITIES PRESENT?YES EMOTIONAL BARRIERS?NO SPECIAL DEVICES?YES :CANE, WALKER MANAGER BOOKS NEEDED?NO DOMESTIC VIOLENCE DO YOU FEEL SAFE IN YOUR ENVIRONMENT?YES OCCUPATION: RETIRED. DIET: REGULAR. EXERCISE: NO REGULAR EXERCISE. MARITAL STATUS: . OTHERS AT HOME: DAUGHTERS AMD GOD- CHILDREN. TODAY'S VISIT NOTES 03/13/2020, PATIENT DESCRIBES PAIN : ACHING, HAVE IT ALL THE TIME, FROM 0-10, WHAT LEVEL IS YOUR PAIN TODAY? 8. - PFS REFERRAL NEEDED?NO CLERGY REFERRAL NEEDED?NO PUBLIC HEALTH REFERRAL NEEDED?NO WAS THE PROVIDER NOTIFIED OF ANY PERTINENT INFO?YES HAS THE PATIENT BEEN EDUCATED REGARDING HIS/HER PLAN OF CARE?YES HAS THE PATIENT BEEN EDUCATED REGARDING PAIN, THE RISK FOR PAIN, THE IMPORTANCE OF EFFECTIVE PAIN MANAGEMENT, AND THE PAIN ASSESSMENT PROCESS?YES HOUSING: OWNS HOME. ADVANCE DIRECTIVE ADVANCE DIRECTIVE DISCUSSED WITH PATIENT:YES HCP- DAUGHTER- RUTH KU- REVIEW OF SYSTEMS CONSTITUTIONAL: ANY RECENT FEVER NO . CHILLS NO . WEIGHT CHANGE OF UNKNOWN REASONS NO . GASTROENTEROLOGY: NEW UNEXPLAINABLE CHANGES IN BOWEL CONTROL NO . CONSTIPATION NO . GENITOURINARY: ANY NEW CHANGE IN BLADDER CONTROL? NO . NEUROLOGY: NEW ONSET DIZZINESS OR NEUROLOGICAL CHANGES NOT MENTIONED NO . NEW NUMBNESS OR PAIN PATTERNS NOT MENTIONED AND PERTINENT TO TODAY'S VISIT NO . CARDIOLOGY: NEW CHEST PRESSURE NO . NEW CHEST PAIN NO . RESPIRATORY: UNEXPLAINABLE COUGH NO . NEW SHORTNESS OF BREATH NO . VITAL SIGNS WT 163 LBS, HT 62 IN, BMI 29.81 INDEX, BP 138/66 MM HG, HR 87 /MIN, RR 20 /MIN, TEMP 96.5 F, OXYGEN SAT % 91%, SAFE IN ENV? (Y/N) YEST.DEISY IVY. ASSESSMENTS LUMBAR SPINAL STENOSIS - M48.061 (PRIMARY) TREATMENT LUMBAR SPINAL STENOSIS NOTES: I CANNOT RECOMMEND ANY MEDICATIONS FOR PAIN CONTROL UNTIL SHE IS SEEN AT OUR CLINIC. SHE HAS A COMPLICATED MEDICAL HISTORY. FOLLOW-UP IS SCHEDULED IN CLINIC. TOTAL TIME SPENT DURING TELEPHONE INTERVIEW WAS APPROXIMATELY 11 MINUTES. DISPOSITION & COMMUNICATION FOLLOW UP 6 WEEKS (REASON: IN CLINIC VISIT/MEDICATION MANAGEMENT/CANNOT BE TELEPHONE OR VIRTUAL VISIT.) ELECTRONICALLY SIGNED BY REJI BERGER ON 12/14/2020 AT 06:59 PM EST DISCLAIMER : THIS IS A VISIT SUMMARY EXTRACTED FROM THE [employer] CHART. IT IS NOT A COPY OF THE [employer] PROGRESS NOTE. MADHAVI
== END ==
LOC: M PAIN 11:30
PROVIDERS: ATTEND Nurse Practitioner Family
DX: M48.061 Spinal stenosis, lumbar region without neurogenic claudication (principal); E78.5 Hyperlipidemia, unspecified; E11.9 Type 2 diabetes mellitus without complications; I25.10 Atherosclerotic heart disease of native coronary artery without angina pectoris; I25.2 Old myocardial infarction; F32.9 Major depressive disorder, single episode, unspecified; G47.33 Obstructive sleep apnea (adult) (pediatric); I10 Essential (primary) hypertension; Z87.891 Personal history of nicotine dependence; Z79.82 Long term (current) use of aspirin; Z79.891 Long term (current) use of opiate analgesic; Z79.899 Other long term (current) drug therapy; Z91.040 Latex allergy status; Z91.030 Bee allergy status

== ENCOUNTER 2020-12-22 12:46 | Inpatient (IN) | payer MEDICARE, OTHER ==
[~2020-12-22] VITALS: Ht 152.4 cm; Wt 81.6 kg
[~2020-12-22 12:46] MED LIST changes: +CYAN2500 PO; -CYAN2500 SL
--- OUTSIDE RECORDS SUMMARY | 2020-12-22 13:12 | CCD ---
Author Author [facility] Organization [facility] em[facility] Address Unknown Phone Unavailable Care Team Providers Care Scrap Picker Name Role Phone Angella Park Unavailable PROBLEMS Type Condition ICD9-CM Code [id number] Code Onset Dates Condition S tatus W/U Status Risk SNOMED Code Notes Problem Other chronic pain G89.29 Active confirmed 8 6524452 Problem Controlled type 2 diabetes m ellitus without complication, without long- term current use of insulin E11.9 Active confirmed 31 9318283 Problem Mixed hyperlipidemia E78.2 Active confirmed 045899784 Problem Coronary artery disease invo lving [place] coronary artery of [place] heart without angina pectoris I25.10 Active confirmed 512280 6171135 Problem Interstitial lung disease J84.9 Active confirmed 004906804 Problem ABRAHAM (obstructive sleep apnea) G47.33 Active confirm ed 13400918 Problem Gastroesophageal reflux disease, esophagitis pre sence not specified K21.9 Active confirmed 167984364 Problem Lumbago with sciatica, unspecified side M54.40 Active confirmed 185425000 Problem Intervertebral disc disorders with radiculopathy , lumbar region M51.16 Active confirmed 919860075876466 Problem Myalgia, other site M79.18 Active confirmed 61220120 Problem Cor pulmonale I27.81 Active confirmed 709433 03 Problem Lumbago with sciatica, right side M54.41 Active confirmed 752607857 Problem Secondary osteoporosis M81.8 Active confirmed 415465456 Problem Essential hypertension I10 Active confirmed 67705267 Problem Seasonal allergies J30.2 Active confirmed 4 60889450 Problem Bee sting allergy Z91.030 Active confirmed 4 59806848 Problem Spinal stenosis of lumbar region with neurogenic harvey ication M48.062 Active confirmed 31542671 Problem Lumbar spinal stenosis M48.061 Active confirmed 56023689 ALLERGIES Allergen (clinical drug ingredient) Drug/Non Drug Allergy do cumented on EMR Reaction Allergy Type Onset Date Status Latex Gloves([facility] Code:17389-96946) Rash/ITCHING Drug Aller gy Active Bee Stings Anaphylaxis Non Drug Allergy Active ENCOUNTERS from 1950 to 2020-12-08 Encounter Location Date Provider Diagnosis [facility] [address] [place] [id number] Dec, Angella Park IMMUNIZATIONS Vaccine Route Administration Date Status Influenza (18 yrs & older) Flublok IM Intramuscular Aug 22, 2019 Administered SOCIAL HISTORY Tobacco Use: Social History Observation Description Date Details (start date - stop date) Former Smoker Sex Assigned At : Social History Observation Description Sex Assigned At Unknown Education: Question Answer Notes Level of Education: College Language: Question Answer Notes Languages spoken: Northern Irish Christian: Question Answer Notes Christian 24 Mos[employer] Sexual Hx: Question Answer Notes Had sex [...] day for 90 day(s) Jul, Active Nystatin 267671 UNIT/GM 1 application Externally to groin Twice [...] Information RESULTS No Results REASON FOR VISIT next appt MEDICAL (GENERAL) HISTORY Type Description Date Medical History HTN, goal < 130/80 per ACC/AHA Medical History Hyperlipidemia Medical History Type 2 DM, goal HbA1c < 6.5 Medical History Interstitial Lung disease - Dr. Dickens Medical History Chronic low back pain - pain management Medical History CAD with PR 2014, stent - cardiology Medical History Depression [...] colonoscopy, reportedly diverticulosis b ut no polyps 2016 Surgical History lung biopsies [id number] Hospitalization History pneumonia, Hypoxia 12/2018,12/2018, Hospitalization History [...] Aug, Next Appt Details Provider Name:Angella Park, 2020-12-12 11 :30:00 AM, [address] [place], [address], Insurance Providers Payer Name Payer Address Payer Phone Insured Name Patient Relati onship to Insured Coverage Start Date Coverage End Date [facility] [address] [address] [facility] [id number] TELLY KU self [employer] GOLD [address] [address] [facility] [id number] CASEY KU self
--- OUTSIDE RECORDS SUMMARY | 2020-12-22 13:12 | CCD | Continuity of Care Document ---
Author Author Patty Justin Automated Organization Unknown Address Unknown Phone Unavailable Care Team Providers Care Senior Radiation Therapist Name Role Phone [place] Harp Unavailable MgGilmer mercado Unavailable Harp, [place] Unavailable Unavailable Unavailable Emeka Lal Unavailable Zuri Zayas Unavailable Vikki Patricia Unavailable Sunita Robert Unavailable Aleisha Kenney Unavailable Eugenia Milton Unavailable Darryl Chery Unavailable Problems Name Dates Details Personal history of nicotine dependence (Z87.891) 16-Dec-2020 Status: Active History of falling (Z91.81) 16-Dec-2020 Status: Active Presence of coronar y angioplasty implant and graft (Z95.5) 16-Dec-2020 Status: Active alf (current) use of aspirin (Z79.82) 16-Dec-2020 Status: Active alf (current) use of oral hypoglycemic drugs (Z79.84) 16-Dec-2020 Status: Active Dependence on suppl emental oxygen (Z99.81) 16-Dec-2020 Status: Active Major depressive di sorder, recurrent, unspecified (F33.9) 16-Dec-2020 Status: Active Low back pain (M54.5) 16-Dec-2020 Status: Active Pulmonary hypertens ion, unspecified (I27.20) 16-Dec-2020 Status: Active Heart failure, unsp ecified (I50.9) 16-Dec-2020 Status: Active Hypertensive heart disease with heart failure (I11.0) 16-Dec-2020 Status: Active 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) 16-Dec-2020 Status: Active Adverse effect of i nhaled anesthetics, sequela (T41.0X5S) 16-Dec-2020 Status: Active 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) 16-Dec-2020 Status: Active Chronic obstructive pulmonary disease, unspecified (J44.9) 16-Dec-2020 Status: Active Medications Name Dates Details Albuterol Sulfate (2.5 MG/3ML) 0.083% every 6 hours as needed for shortness of breath Loyd [place] Active Oxygen 6 liters per minute at rest, 10 liters per minute with ambulation via mask Harp, [place]* Start : 16-Dec-2020 Active Aspirin Adult Low Dose 81 MG Harp, [place]* Start : 16-Dec-2020 Active Vitamin B-12 2500 MCG Harp, [place]* Start : 16-Dec-2020 Active Levothyroxine Sodium 50 MCG Harp, [place]* Start : 16-Dec-2020 Active Azithromycin 250 MG Harp, [place]* Start : 16-Dec-2020 Active Pregabalin 75 MG Harp, [place]* Start : 16-Dec-2020 Active MetFORMIN HCl 500 MG Harp, [place]* Start : 16-Dec-2020 Active Omeprazole 20 MG Harp, [place]* Start : 16-Dec-2020 Active Torsemide 20 MG Harp, [place]* Start : 16-Dec-2020 Active BuPROPion HCl 75 MG Harp, [place]* Start : 16-Dec-2020 Active Atorvastatin Calcium 40 MG Harp, [place]* Start : 16-Dec-2020 Active Spironolactone 25 MG Harp, [place]* Start : 16-Dec-2020 Active Bisoprolol Fumarate 5 MG Harp, [place]* Start : 16-Dec-2020 Active Allergies and Adverse Reactions Name Dates Details Bee sting (Allergy) Onset: 16-Dec-2020 Status: Active Latex (Allergy) Onset: 16-Dec-2020 St atus: Active Results Date Description Value Details No Known Results Plan of Care Name Dates Details Instructions Diet:Regular Diet, Consistent Carbs, Low Sodium, 1800ml/day fluid restriction Ins truction Type: Nutrition education Payers * [facility] * [facility]
--- OUTSIDE RECORDS SUMMARY | 2020-12-22 13:12 | CCD | Continuity of Care Document ---
Author Author Patty Justin Automated Organization Unknown Address Unknown Phone Unavailable Care Team Providers Care Lamp Stack Developer Name Role Phone [place] Harp Unavailable MgGilmer mercado Unavailable Harp, [place] Unavailable Unavailable Unavailable Emeka Lal Unavailable RobinZuri rodriguez Unavailable Jakob Sunita Unavailable Aleisha Kenney Unavailable Eugenia Milton Unavailable MiriDarryl Unavailable Problems Name Dates Details Personal history of nicotine dependence (Z87.891) 16-Dec-2020 Status: Active History of falling (Z91.81) 16-Dec-2020 Status: Active Presence of coronar y angioplasty implant and graft (Z95.5) 16-Dec-2020 Status: Active terminal clerk (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) use of aspirin (Z79.82) 16-Dec-2020 Status: Active terminal clerk (current) use of oral hypoglycemic drugs (Z79.84) [...] Status: Active 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) 16-Dec-2020 Status: Active Adverse effect of i nhaled anesthetics, sequela (T41.0X5S) 16-Dec-2020 Status: Active 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) 16-Dec-2020 Status: Active Chronic obstructive pulmonary disease, unspecified (J44.9) 16-Dec-2020 Status: Active Medications Name Dates Details Albuterol Sulfate (2.5 MG/3ML) 0.083% every 6 hours as needed for shortness of breath Delroy Harpik Active Oxygen 6 liters per minute at rest, 10 liters per minute with ambulation via mask Loyd [place]* Start : 16-Dec-2020 Active Aspirin Adult [...] Ins truction Type: Nutrition education Payers * [facility] Health Plans * [facility]
--- OUTSIDE RECORDS SUMMARY | 2020-12-22 13:12 | CCD | Continuity of Care Document ---
Author Author Patty Justin Automated Organization Unknown Address Unknown Phone Unavailable Care Team Providers Care Examination Supervisor Name Role Phone [place] Harp Unavailable MgGilmer mercado Unavailable HarpDelroy lojaik Unavailable Unavailable Unavailable Emeka Lal Unavailable RobinZuri rodriguez Unavailable Vikki Patricia Unavailable Sunita Robert Unavailable Aleisha Kenney Unavailable Eugenia Milton Unavailable Darryl Chery Unavailable Problems Name Dates Details Chronic obstructive pulmonary disease, unspecified (J44.9) 16-Dec-2020 Status: Active Personal history of nicotine dependence (Z87.891) 16-Dec-2020 Status: Active History of falling (Z91.81) 16-Dec-2020 Status: Active Presence of coronar y angioplasty implant and graft (Z95.5) 16-Dec-2020 Status: Active 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) use of aspirin (Z79.82) 16-Dec-2020 Status: Active 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) use of oral hypoglycemic drugs (Z79.84) [...] Status: Active 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) 16-Dec-2020 Status: Active Adverse effect of i nhaled anesthetics, sequela (T41.0X5S) 16-Dec-2020 Status: Active 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) 16-Dec-2020 Status: Active Medications Name Dates Details [...] 25 MG Harp, [place]* Start : 16-Dec-2020 End : 19-Dec-2020 Inactive Bisoprolol Fumarate 5 MG Harp, [place]* Start : 16-Dec-2020 Active Allergies and Adverse Reactions Name Dates Details Bee sting (Allergy) Onset: 16-Dec-2020 Status: Active Latex (Allergy) Onset: 16-Dec-2020 St atus: Active Results Date Description Value Details No Known Results Plan of Care Name Dates Details Instructions Diet:Regular Diet, Consistent Carbs, Low Sodium, 1800ml/day fluid restriction Ins truction Type: Nutrition education Payers * [facility] Health Plans * [facility]
--- OUTSIDE RECORDS SUMMARY | 2020-12-22 13:12 | CCD | Continuity of Care Document ---
Author Author Patty SMALLWOOD PA-C Organization Unknown Address [address] [place] [address] Phone [phone] Care Team Providers Care Salon Professional Name Role Phone Iris Smallwood PA-C AUTM [phone] Problems Active Problems Provider Date Chemical pneumonitis [...] MD 2019 Vitamin D3 Ultra Potency 1.25mg (91774 Ut) Tablets 1 tab by mouth every [...] by mouth twice a day 60tabs [place] aHrp MD Omeprazole 20mg Capsules DR 1 by [...] CPT Code Status Date Vaccine Lot # [id number] Given 09/04/2020 Influenza (>= 6 Months) P.F. [...] H/L Range Note CBC With Differential 10/17/2020 [facility] CBC W/Automated Diff (SEE NOTE) 1, 2 [...] Lymph 10.5 % Low 25.0 - 40.0 Cochran 6.3 % 3.0 - 8.0 Eos 2.2 % 0.0 - 7.0 Baso 0.7 % 0.0 - 2.5 %Ig 0.5 % High 0.0 - 0.0 %NRBC 0.0 % 0.0 - 0.0 #Neut 10.06 10^3/uL High 2.00 - 6.90 #Lymph 1.33 10^3/uL 0.60 - 3.40 #Cochran 0.80 10^3/uL 0.00 - 0.90 #Eos 0.28 10^3/uL 0.00 - 0.70 #Baso 0.09 10^3/uL 0.00 - 0.20 #Ig 0.06 10^3/uL 0.00 - 0.10 #NRBC 0.00 10^3/uL 0.00 - 0.00 Manual Diff NOT INDICATED RBC Morph NOT INDICATED Urinalysis 10/17/2020 [facility] Urinalysis (SEE NOTE) 3 Source R Color yellow Normal: Yellow Clarity clear Normal: Clear Spec [place] 1.015 1.001 - 1.030 pH 5 5 - 9 Glucose NORM Normal: Negative Bilirubin NEG Normal: Negative Ketone NEG Normal: Negative Protein NEG Normal: Negative Nitrite NEG Normal: Negative Blood NEG Normal: Negative Leuk Est NEG Normal: Negative Urobilinogen NOR less than 1.0 mg/dL Microscopic Not Indicate Comprehensive Metabolic Panel 10/17/2020 [facility] ospital Comprehensive Metabo (SEE NOTE) 4 Sodium [...] Amer GFR >60 5 Cve Panel 10/17/2020 [facility] Cve Panel (SEE NOTE) 6 Cholesterol 115 mg/dL Low 131 - 200 Triglycerides 183 mg/dL High 35 - 160 HDL 30 mg/dL 29 - 86 LDL 59 mg/dL Low 65 - 175 Risk Factor 3.8 3.2 - 4.4 LDL/HDL 1.97 1.47 - 3.22 7 Laboratory test finding 10/17/2020 [facility] Hgba1c 5.8 % 4.4 - 6.1 8 Vitamin D (25-Hydroxy) 27 NG/ML 9 TSH Highly Sensitive 3.37 uIU/mL 0.47 - 5.01 T4 - Free 1.28 ng/dL 0.93 - 1.70 Iron Binding Capacity 10/17/2020 [facility] Iron 70 g/dL 42 - 135 Uibc 224 g/dL 112 - 347 Tibc 294 g/dL 250 - 450 Iron Sat 24 % FT4&TSH Panel 09/16/2020 [facility] Thyroid Stimulating Hormone 2.180 uIU/ML Normal 0.358-3.740 Free T4 1.11 ng/dL Normal 0.76-1.46 Comprehensive Metabolic Profil 09/16/2020 [facility] Glucose, Fasting 101 mg/dL High 70-100 [...] 1.0 Low 1.2-2.2 Laboratory test finding 09/16/2020 [facility] TSH Highly Sensitive <pending> T4 - Free <pending> Laboratory test finding 09/16/2020 [facility] Total 25(Oh) Vitamin D 13.6 NG/ML Low 30.0-100.0 Cve Panel 09/16/2020 [facility] Triglycerides Level 212 mg/dL High <150 Cholesterol Level 140 mg/dL Normal <200 HDL Cholesterol 40 mg/dL Normal >40 LDL Cholesterol 58 mg/dL Normal <100 Non-HDL-C 100 mg/dL Normal Cholesterol Risk Ratio 3.500 Normal <5 Hgba1c 09/16/2020 [facility] Hemoglobin A1c 5.7 % Normal 11 Estimated Average Glucose 117 mg/dL High 60-110 CBC W/Automated Diff 09/16/2020 [facility] White Blood Count 10.4 10 High [...] 36.0-66.0 Lymph % 13.9 % Low 24.0-44.0 Cochran % 6.1 % High 0.0-5.0 Eos % 4.2 % High 0.0-3.0 Baso % 0.6 % Normal 0.0-1.0 Immature Granulocyte % 0.3 % Normal 0-3.0 Nucleated Red Blood Cell % 0.0 % Normal 0-0 Neutrophils # 7.8 10 Normal 1.5-8.5 Lymph # 1.4 10 Low 1.5-5.0 Cochran # 0.6 10 Normal 0.0-0.8 Eos # 0.4 10 Normal 0.0-0.5 Baso # 0.1 10 Normal 0.0-0.2 Ua Routine 09/16/2020 [facility] Appearance, Urine CLEAR Normal Clear Color, Urine YELLOW Normal Yellow PH,Urine 5.0 units Normal 5.0-9.0 Specific [place] Urine Auto 1.015 Normal 1.002-1.035 Protein, Urine [...] Little GFR Left ESRD GFR <15 on ROUTING MACHINE OPERATOR 11 REFERENCE RANGES: <=5.6% NORMAL 5.7-6.4% SUGGESTS IMPAIRED GLUCOSE META BOLISM/PREDIABETIC >= 6.5% ABNORMAL Procedures Date Code Description Status 09/04/2020 22336 Admin Patient Focused Health Ris k Assessment Instrument Completed 09/04/2020 24622 Brief Emotional/Beha v Assessment W/ Scoring Doc Per Standard Inst Completed Medical Devices Description No Information Available Encounters Description No Information Available Assessments Date Code Description Provider 11/24/2020 J44.9 Chronic obstructive pulmonary di sease, unspecified Iirs Smallwood PA-C 11/24/2020 E86.0 Dehydration DANILO Scott 10/06/2020 J95.4 Chemical pneumonitis due to anes thesia Iris Smallwood PA-C 09/04/2020 Z00.01 Encounter for [...] immunization Iris Smallwood PA-C Plan of Treatment 11/24/2020 - Iris Smallwood PA-C* J44.9 Chronic obstructive pulmonary disease, unspecified* Comments:* She became dehydrated and BP was low in the ER secondary to increased dose of torsemide. She feels dizzy and weak, but she is slowly improving since discharge. Will request ER notes. She has some fluid retention. Will adjust Torsemide to 10mg BID. Advised her to follow up with production mechanic tin cans who increased torsemide dose. Will order blood work for reevaluation. If she has severe symptoms, she should go to ER. * E86.0 Dehydration* Comments:* See eva Functional Status Description No Information Available Mental Status Description No Information Available Referrals Description No Information Available
--- OUTSIDE RECORDS SUMMARY | 2020-12-22 13:12 | CCD | Continuity of Care Document ---
Author Author Patty Justin Automated Organization Unknown Address Unknown Phone Unavailable Care Team Providers Care Mis Specialist Name Role Phone [place] Harp Unavailable Gilmer Lr Unavailable HarpMontana loja Unavailable Unavailable Unavailable Emeka Lal Unavailable RobinZuri rodriguez Unavailable Jakob Sunita Unavailable Aleisha Kenney Unavailable Eugenia Milton Unavailable MiriDarryl Unavailable Problems Name Dates Details Chronic obstructive pulmonary disease, unspecified (J44.9) 11-Dec-2020 Status: Active Medications Name Dates Details Albuterol Sulfate (2.5 MG/3ML) 0.083% every 6 hours as needed for shortness of breath [place] Harp Active Oxygen 6 liters per minute at rest, 10 liters per minute with ambulation via mask [place] Harp* Start : 16-Dec-2020 Active Aspirin Adult Low Dose 81 MG Delroy Harpik* Start : 16-Dec-2020 Active Vitamin B-12 2500 MCG Delroy Harpik* Start : 16-Dec-2020 Active Levothyroxine Sodium 50 MCG Delroy Harpik* Start : 16-Dec-2020 Active Azithromycin 250 MG Delroy Harpik* Start : 16-Dec-2020 Active Pregabalin 75 MG Loyd [place]* Start : 16-Dec-2020 Active MetFORMIN HCl 500 MG Delroy Harpik* Start : 16-Dec-2020 Active Omeprazole 20 MG Harp, [place]* Start : 16-Dec-2020 Active Torsemide 20 MG Harp, [place]* Start : 16-Dec-2020 Active BuPROPion HCl 75 MG Loyd [place]* Start : 16-Dec-2020 Active Atorvastatin Calcium [...] Ins truction Type: Nutrition education Payers * [facility] Health Plans * [facility]
--- OUTSIDE RECORDS SUMMARY | 2020-12-22 13:12 | CCD ---
Author Author [facility] Syst ems Organization [facility] ems Address Unknown Phone Unavailable Care Team Providers Care Hygiene Teacher Name Role Phone Angella Park Unavailable PROBLEMS Type Condition ICD9-CM Code VSL25-YM Code Onset Dates Condition S tatus W/U Status Risk SNOMED Code Notes Problem Other chronic pain G89.29 Active confirmed 8 2031763 Problem Controlled type 2 diabetes m ellitus without complication, without long- term current use of insulin E11.9 Active confirmed 31 7720577 Problem Mixed hyperlipidemia E78.2 Active confirmed 034239479 Problem Coronary artery disease invo lving [place] coronary artery of [place] heart without angina pectoris I25.10 Active confirmed 388586 2857677 Problem Interstitial lung disease J84.9 Active confirmed 378972286 Problem ABRAHAM (obstructive sleep apnea) G47.33 Active confirm ed 04087845 Problem Gastroesophageal reflux disease, esophagitis pre sence not specified K21.9 Active confirmed 861577793 Problem Lumbago with sciatica, unspecified side M54.40 Active confirmed 436222742 Problem Intervertebral disc disorders with radiculopathy , lumbar region M51.16 Active confirmed 105396419644467 Problem Myalgia, other site M79.18 Active confirmed 57430887 Problem Cor pulmonale I27.81 Active confirmed 701749 03 Problem Lumbago with sciatica, right side M54.41 Active confirmed 971571814 Problem Secondary osteoporosis M81.8 Active confirmed 664950679 Problem Essential hypertension I10 Active confirmed 16965277 Problem Seasonal allergies J30.2 Active confirmed 4 38959349 Problem Bee sting allergy Z91.030 Active confirmed 4 73416396 Problem Spinal stenosis of lumbar region with neurogenic harvey ication M48.062 Active confirmed 28027819 Problem Lumbar spinal stenosis M48.061 Active confirmed 01416557 ALLERGIES Allergen (clinical drug ingredient) Drug/Non Drug Allergy do cumented on EMR Reaction Allergy Type Onset Date Status Latex Gloves([facility] Code:61367-71601) Rash/ITCHING Drug Aller gy Active Bee Stings Anaphylaxis Non Drug Allergy Active ENCOUNTERS from 1950 to 2020-12-14 Encounter Location Date Provider Diagnosis [facility] [address] [place] [phone] Dec, Angella Park Lumbar spinal stenosis M48.061 IMMUNIZATIONS Vaccine Route [...] College Language: Question Answer Notes Languages spoken: German Sabianism: Question Answer Notes Sabianism 24 Islam Sexual Hx: Question Answer Notes Had sex [...] FOR REFERRAL No Information VITAL SIGNS Weight 163 lbs Dec, Height 62 in Dec, BMI 29.81 kg/m2 Dec, Heart Rate 87 /min Dec, Respiratory Rate 20 /min Dec, Temperature 96.5 degrees Fahrenheit Dec, Oximetry 91% Dec, Blood pressure systolic 138 mm Hg Dec, Blood pressure diastolic 66 mm Hg Dec, MEDICATIONS Medication SIG (Take, Route, Frequency, Duration) Notes Start Da te End Date Status Hydrocodone-Acetaminophen 5-325 MG 1 tablet as needed Orally Every 8 hours when necessary MDD 3 for 30 Days Oct, Acti ve Nystatin 597746 UNIT/GM 1 application Externally to groin Twice a day prn Dec, Active Omeprazole 20 MG 1 capsule 30 minutes before morning meal Orally Once a day for 30 day(s) Mar, Active Lisinopril 2.5 MG 1 tablet Orally Once a day for 90 day(s) Mar, Active Gabapentin 300 MG TAKE 3 CAPSULES BY MOUTH THREE TIMES DAILY for 30 Not-Taking Aspirin 81 81 MG 1 tablet Orally Once a day for 30 day(s) Active Vitamin B12 _ 1 tablet Orally Once a day Active Albuterol Sulfate HFA 108 (90 Base) MCG/ACT 2 puffs In halation QID prn SOB/wheeze Sep, Active Rolling Walker 1 with seat as directed Dx: M51.16 Jul, Active Pregabalin 75 MG 1 capsule Orally Once a day Active Pregabalin 50 MG 1 capsule Orally every 8 hours Active EpiPen 2-Hank 0.3 MG/0.3ML as directed intramuscularly once p rn for anaphylaxis Mar, Active Metformin HCl 500 MG 1 tablet with a meal Orally twice a day for 30 Active BuPROPion HCl ER (SR) 150 MG 1 tablet Orally Twice a day for 30 Active Butrans 10 MCG/HR 1 patch to skin Transdermal Q 7 DAYS=MDD for 3 0 Days Jul, Not-Taking Cetirizine HCl 10 MG 1 tablet Orally Once a day for 30 day(s) Dec, Active PreserVision AREDS - 1 cap Orally once daily Active Bisoprolol Fumarate 5 MG 1/2 tablet Orally Once a day Active Belbuca 150 MCG 1 film to the gum Bucally every 12 hrs mdd2 for 30 Days Aug, Active Tizanidine HCl 4 MG 1 tab orally 3 times a day a s needed for muscle spasms for 30 Days Mar, Active Potassium Chloride ER 20 MEQ 1 tablet with food Orally Once a day for 90 day(s) Jul, Active Azithromycin 250 MG 1 tab Orally Once a day for 30 days Active Atorvastatin Calcium 40 MG 1 tablet orally Daily for 90 days Active Albuterol Sulfate (2.5 MG/3ML) 0.083% 3 ml Inhalation every 4 hours as needed for SOB Mar, Active Furosemide 20 MG 40 mg orally Daily Mar, Active PROCEDURES No Information RESULTS No Results REASON FOR VISIT low back/med mngmnt MEDICAL (GENERAL) HISTORY Type Description Date Medical History Hyperlipidemia Medical History Type 2 DM, goal HbA1c < 6.5 Medical History Interstitial Lung disease - Dr. Dickens Medical History Chronic low back pain - pain management Medical History CAD with [place] 2014, stent - cardiology Medical History Depression Medical History Hx of Migraines - Neurology Medical History ABRAHAM - on CPAP Medical History HTN, goal < 130/80 per ACC/AHA Surgical History appendectomy 1967 Surgical History C [...] no polyps 2017 Surgical History lung biopsies [id number] Hospitalization History pneumonia, Hypoxia 12/2018,12/2018, Hospitalization History SURGERIS Hospitalization History SOB/Flud retension 03/2020 Goals Section No Information Health Concerns No Information MEDICAL EQUIPMENT No Information MENTAL STATUS No Information FUNCTIONAL STATUS No Information ASSESSMENTS Encounter Date Diagnosis Assessment Notes Treatment Notes Treatm ent Clinical Notes Dec, Lumbar spinal stenosis (ICD-10 - M48.061) I cannot recommend any medications for pain control until she is seen at our clinic. She has a complicated medical history. Follow-up is scheduled in clinic. Total time spent during telephone interview was approximately 11 minutes. PLAN OF TREATMENT Treatment Notes Assessment Notes Clinical Notes Lumbar spinal stenosis I cannot recommend any medic ations for pain control until she is seen at our clinic. She has a complicated medical history. Follow-up is scheduled in clinic. Total time spent during telephone interview was approximately 11 minutes. Next Appt Details 6 Weeks Reason:in clinic visit/medicatio n management/cannot be telephone or virtual visit. Provider Name:Angella Park, 2021-01-23 09 :15:00 AM, [address] [place] [address], [phone], Follow Up:6 Weeksin clinic visit/medication management/cannot be telephone or virtual visit. Insurance Providers Payer Name Payer Address Payer Phone Insured Name Patient Relati onship to Insured Coverage Start Date Coverage End Date HU[employer] GOLD [address] [address] [facility] [phone] CASEY KU [facility] [address] [address] [facility] [id number] TELLY KU self
--- OUTSIDE RECORDS SUMMARY | 2020-12-22 13:12 | CCD | Continuity of Care Document ---
Author Author Patty RIVAS M.D. Organization Unknown Address [address] [place] [address] Phone [phone] Care Team Providers Care Tool And Cutter Grinder Name Role Phone Maritza Strickland AUTM [phone] Iris Stokes P.A.-C AUTM [phone] Problems Description No Information Available Social History Type Date Description Comments Sex Unknown Cigarette Use Pack Years - 70 Tobacco Use Start: 10/31/66 End: 10/31/13 Patient is a forme r smoker 1-1.5 ppd x's 47 years Smoking Status Reviewed: 12/08/20 Patient is a former smoker 1- 1.5 ppd x's 47 years Allergies, Adverse Reactions, Alerts Description No Known Drug Allergies Medications Active Medications SIG Qnty Indications Ordering Provide r Date CPAP Device 10cm aprAmie Parish M.D. 11/11/[address] 1 by mouth every day 30caps R12 Amie Rivas M.D. 01/21/2020 Fluticasone Propionate 50mcg/Act Suspension 1 sprays each nostrils twice a day as needed 16gm J30.9 Amie Rivas M.D. 01/21/2020 Breo Ellipta 200-25mcg/Inh Aerosol 1 puff inhaled every day 60units Amie Rivas M.D. 0 Spironolactone 25mg Tablets Take One Tablet By Mouth Every Day Unknown Osteo Bi-Flex Advanced Triple Strength Tablets 1 tab by mouth every day Unknown Alpha Lipoic Acid 200mg Capsules 1 tab by mouth every day Unknown Claritin 10mg Tablets 1 tab by mouth every day Unknown Torsemide 20mg Tablets 2 tabs by mouth every day Unknown Tizanidine HCL 4mg Tablets 1 tab by mouth every night Unknown Azithromycin 250mg Tablets 1 tab by mouth every day Unknown Oxygen Device 6 L continuous, 10L with exertion Unknown Albuterol Sulfate (2 .5mg/3ML) 0.083% Nebulizer [...] 7 days 42tabs Amie Rivas M.D. 08/27/2020 - 09/16/2020 Immunizations Description No Information Available Vital Signs Date Vital Result Comment 10/16/2020 10:26am BP Systolic 122 mmHg BP Diastolic 70 mmHg Heart Rate 83 /min O2 % BldC Oximetry 916 % Body Temperature 95.9 F Height 62 inches 5'2" Weight 165.00 lb verbla per the pt BMI (Body Mass Index) 30.2 kg/m2 Cando Body Weight 110 lb Weight 74.844 kg BSA (Body Surface Area) 1.76 m2 08/27/2020 1:00pm BP Systolic 118 mmHg BP Diastolic 70 mmHg Heart Rate 66 /min O2 % BldC Oximetry 974 % Body Temperature 97.1 F Height 62 inches 5'2" Weight 161.50 lb BMI (Body Mass Index) 29.5 kg/m2 Cando Body Weight 110 lb Weight 73.256 kg BSA (Body Surface Area) 1.75 m2 Results Description No Information Available Procedures Date Code Description Status 08/27/2020 78418 Spirometry Completed Medical Devices Description No Information Available Encounters Type Date Location Provider Dx Diagnosis Office Visit 10/16/2020 10:30a [facility] Amie Marquez M.D. J84.9 Interstitial pulmonary disea se, unspecified Z87.891 Personal history of nicotine dependence J96.11 Chronic respiratory failure with hypoxia Z86.711 Personal history of pulmonar y embolism G47.33 Obstructive sleep apnea (arvin lt) (pediatric) Office Visit 08/27/2020 1:00p [facility] Amie Marquez M.D. J84.9 Interstitial pulmonary disea se, unspecified Z87.891 Personal history of nicotine dependence J96.11 Chronic respiratory failure with hypoxia Z86.711 Personal history of pulmonar y embolism G47.30 Sleep apnea, unspecified I27.20 Pulmonary hypertension, unsp ecified Assessments Date Code Description Provider 12/08/2020 J84.9 Interstitial pulmonary disease, unspecified Amie Rivas M.D. 12/08/2020 Z87.891 Personal history of nicotine dep endence Amie Rivas M.D. 12/08/2020 J96.11 Chronic respiratory failure with hypoxia Amie Rivas M.D. 12/08/2020 G47.33 Obstructive sleep apnea (adult) (pediatric) Amie Rivas M.D. 12/08/2020 I27.20 Pulmonary hypertension, unspecif ied Amie Rivas M.D. 10/16/2020 J84.9 Interstitial pulmonary disease, unspecified Amie Rivas M.D. 10/16/2020 Z87.891 Personal history of nicotine dep endence Amie Rivas M.D. 10/16/2020 J96.11 Chronic respiratory failure with hypoxia Amie Rivas M.D. 10/16/2020 Z86.711 Personal history of pulmonary em bolism Amie Rivas M.D. 10/16/2020 G47.33 Obstructive sleep apnea (adult) [...] ied Amie Rivas M.D. Plan of Treatment 12/08/2020 - Amie Rivas M.D.* J84.9 Interstitial pulmonary disease, unspecified * Z87.891 Personal history of nicotine dependence * J96.11 Chronic respiratory failure with hypoxia * G47.33 Obstructive sleep apnea (adult) (pediatric) * I27.20 Pulmonary hypertension, unspecified* New Labs:* PFT W/HGB On Meds, Ordered: 12/08/20 * New Orders:* New CPAP, Heated Humidifier, Ordered: 12/08/20 Functional Status Functional Condition Comment Date Status Independent with all ADL's Activ e Independent with all IADL's Acti ve Mental Status Mental Condition Comment Date Status None Active Referrals Refer to Reason for Referral Status Appt Date [facility] sleep approved [id number] Closed Sleep Lab [address] [place] [address] [phone] Radiology/Procedure no auth required [id number] Closed Dany Valadez M.D. 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 hx CAD and also severe PH on chronic [place] O2. referal for her PH Scheduled 09/29/2020 [facility] [address], [address] [place], [place] [address] [phone]
--- OUTSIDE RECORDS SUMMARY | 2020-12-22 13:12 | CCD ---
Author Author [facility] Syst ems Organization [facility] ems Address Unknown Phone Unavailable Care Team Providers Care Manager Installation Name Role Phone Hiram Marcial Unavailable PROBLEMS Type Condition ICD9-CM Code JBD88-FB Code Onset Dates Condition S tatus SNOMED Code Notes Problem Other chronic pain G89.29 Active 28264631 Problem Controlled type 2 diabetes m ellitus without complication, without long- term current use of insulin E11.9 Active 43452039 4 Problem Mixed hyperlipidemia E78.2 Active 006273126 Problem Coronary artery disease invo lving [place] coronary artery of [place] heart without angina pectoris I25.10 Active 676358670058 7 Problem Interstitial lung disease J84.9 Active 733626 007 Problem ABRAHAM (obstructive sleep apnea) G47.33 Active 78 981233 Problem Gastroesophageal reflux disease, esophagitis pre sence not specified K21.9 Active 294488460 Problem Lumbago with sciatica, unspecified side M54.40 Active 523554431 Problem Intervertebral disc disorders with radiculopathy , lumbar region M51.16 Active 721429856271421 Problem Myalgia, other site M79.18 Active 57243316 Problem Cor pulmonale I27.81 Active 35239190 Problem Lumbago with sciatica, right side M54.41 Active 353985400 Problem Secondary osteoporosis M81.8 Active 162621612 Problem Essential hypertension I10 Active 07567972 Problem Seasonal allergies J30.2 Active 430871009 Problem Bee sting allergy Z91.030 Active 790383069 Problem Spinal stenosis of lumbar region with neurogenic harvey ication M48.062 Active 86411496 Problem Lumbar spinal stenosis M48.061 Active 23650895 ALLERGIES Allergen (clinical drug ingredient) Drug/Non Drug Allergy do cumented on EMR Reaction Allergy Type Onset Date Status Latex Gloves([facility] Code:47357-29652) Rash/ITCHING Drug Aller gy Active Bee Stings Anaphylaxis Non Drug Allergy Active ENCOUNTERS from 1950 to 2020-11-23 Encounter Location Date Provider Diagnosis [facility] [place] [address] [place] [id number] Oct, Hiram Marcial IMMUNIZATIONS Vaccine Route Administration Date Status Influenza (18 yrs & older) Flublok IM Intramuscular Aug 22, 2019 Administered SOCIAL HISTORY Tobacco Use: Social History Observation Description Date Details (start date - stop date) Former Smoker Sex Assigned At : Social History Observation Description Sex Assigned At Unknown Education: Question Answer Notes Level of Education: College Language: Question Answer Notes Languages spoken: Tristanian Mosque: Question Answer Notes [employer] Sexual Hx: Question Answer Notes [...] day for 90 day(s) Jul, Active Nystatin 625975 UNIT/GM 1 application Externally to groin Twice [...] Information RESULTS No Results REASON FOR VISIT got a new PCP MEDICAL (GENERAL) HISTORY Type Description Date Medical History HTN, goal < 130/80 per ACC/AHA Medical History Hyperlipidemia Medical History Type 2 DM, goal HbA1c < 6.5 Medical History Interstitial Lung disease - Dr. Dickens Medical History Chronic low back pain - pain management Medical History CAD with [place] 2013, stent - cardiology Medical History Depression [...] no polyps 2017 Surgical History lung biopsies 9976-2657 Hospitalization History pneumonia, Hypoxia 12/2018,12/2018, Hospitalization History [...] Aug, Next Appt Details Provider Name:Angella Park, 2020-12-03 09 :15:00 AM, [address] [place], [address], Insurance Providers Payer Name Payer Address Payer Phone Insured Name Patient Relati onship to Insured Coverage Start Date Coverage End Date [facility] [address] [address] [facility] [id number] TELLY KU self HU[employer] GOLD [address] [address] [facility] [phone] CASEY KU self
--- OUTSIDE RECORDS SUMMARY | 2020-12-22 13:12 | CCD | Continuity of Care Document ---
Author Author Patty Justin Automated Organization Unknown Address Unknown Phone Unavailable Care Team Providers Care Flow Worker Name Role Phone Montana Harp Unavailable Gilmer [...] Ins truction Type: Nutrition education Payers * [facility] Health Plans * [facility]
--- OUTSIDE RECORDS SUMMARY | 2020-12-22 13:12 | CCD | Continuity of Care Document ---
Author Author Patty Justin Automated Organization Unknown Address Unknown Phone Unavailable Care Team Providers Care Radio Antenna Installer Name Role Phone Montana Harp Unavailable Gilmer [...] Ins truction Type: Nutrition education Payers * [facility] Health Plans * [facility]
--- OUTSIDE RECORDS SUMMARY | 2020-12-22 13:13 | CCD ---
Author Author [facility] Syst ems Organization [facility] ems Address Unknown Phone Unavailable Care Team Providers Care Boilers And Pressure Vessels Inspector Name Role Phone Hiram Marcial Unavailable PROBLEMS Type Condition ICD9-CM Code BOK02-MS Code Onset Dates Condition S tatus SNOMED Code Notes Problem Other chronic pain G89.29 Active 15147229 Problem Controlled type 2 diabetes m ellitus without complication, without long- term current use of insulin E11.9 Active 26267950 4 Problem Mixed hyperlipidemia E78.2 Active 318054711 Problem Coronary artery disease invo lving [place] coronary artery of [place] heart without angina pectoris I25.10 Active 465915375655 7 Problem Interstitial lung disease J84.9 Active 514673 007 Problem ABRAHAM (obstructive sleep apnea) G47.33 Active 78 850308 Problem Gastroesophageal reflux disease, esophagitis pre sence not specified K21.9 Active 732669498 Problem Lumbago with sciatica, unspecified side M54.40 Active 051414738 Problem Intervertebral disc disorders with radiculopathy , lumbar region M51.16 Active 709083979530146 Problem Myalgia, other site M79.18 Active 23708699 Problem Cor pulmonale I27.81 Active 79887865 Problem Lumbago with sciatica, right side M54.41 Active 300276953 Problem Secondary osteoporosis M81.8 Active 875488648 Problem Essential hypertension I10 Active 50090680 Problem Seasonal allergies J30.2 Active 076450292 Problem Bee sting allergy Z91.030 Active 282112101 Problem Spinal stenosis of lumbar region with neurogenic harvey ication M48.062 Active 86858787 Problem Lumbar spinal stenosis M48.061 Active 00808922 ALLERGIES Allergen (clinical drug ingredient) Drug/Non Drug Allergy do cumented on EMR Reaction Allergy Type Onset Date Status Latex Gloves([facility] Code:09248-28[address]) Rash/ITCHING Drug Aller gy Active Bee Stings Anaphylaxis Non Drug Allergy Active ENCOUNTERS from 1950 to 2020-11-23 Encounter Location Date Provider Diagnosis [facility] [place] [address] [place] [phone] Oct, Hiram Marcial IMMUNIZATIONS Vaccine Route Administration [...] College Language: Question Answer Notes Languages spoken: Greek Adventism: Question Answer Notes Adventism 24 Zoroastrian Sexual Hx: Question Answer Notes [...] day for 90 day(s) Jul, Active Nystatin 946413 UNIT/GM 1 application Externally to groin Twice [...] Information RESULTS No Results REASON FOR VISIT [facility] D/C 11/19; Chronic Interstitial Lung Disease MEDICAL (GENERAL) HISTORY Type Description Date Medical History HTN, goal < 130/80 per ACC/AHA Medical History Hyperlipidemia Medical History Type 2 DM, goal HbA1c < 6.5 Medical History Interstitial Lung disease - Dr. Dickens Medical History Chronic low back pain - pain management Medical History CAD with [place] 2014, stent - cardiology Medical History Depression Medical History Hx of Migraines - Neurology Medical History ABRAHAM - on CPAP Surgical History appendectomy 1966 Surgical History C section x2 1979. 1986 Surgical History Bilateral foot surgery 1987 Surgical History partial hysterectomy 1987 Surgical History colonoscopy with polypectomy 2011 Surgical History Right rotator cuff tear repair 2013 Surgical History heart stent 2014 Surgical History lung biopsy 2017 Surgical History Lasik surgery bilateral eyes 2016 Surgical History colonoscopy, reportedly diverticulosis b ut no polyps 2017 Surgical History lung biopsies [id number] Hospitalization History pneumonia, Hypoxia 12/2018,12/2018, Hospitalization History SURGERIS Hospitalization History SOB/Flud retension 03/2020 Goals Section No Information Health Concerns No Information MEDICAL EQUIPMENT No Information MENTAL STATUS No Information FUNCTIONAL STATUS No Information ASSESSMENTS No Information PLAN OF TREATMENT Medication Medication Name Sig Start Date Stop Date Butrans 10 MCG/HR 1 patch to skin Transdermal Q 7 DAYS=MDD for 30 Days 28 Jul, 2020 Rolling Walker 1 with seat as directed Dx: M51.16 15 Jul, 2020 Hydrocodone-Acetaminophen 5-325 MG 1 tablet as needed Orally Every 8 hours when necessary MDD 3 for 30 Days Oct, Belbuca 150 MCG 1 film to the gum Bucally every 12 hrs m dd2 for 30 Days Aug, Next Appt Details Provider Name:Angella Park, 2020-12-03 09 :15:00 AM, [address] [place], [address], Insurance Providers Payer Name Payer Address Payer Phone Insured Name Patient Relati onship to Insured Coverage Start Date Coverage End Date [employer] GOLD [address] [address] [facility] [id number] CASEY KU [facility] [address] [address] [facility] [id number] TELLY KU self
--- OUTSIDE RECORDS SUMMARY | 2020-12-22 13:14 | CCD ---
Author Author [facility] Organization [facility] Address Unknown Phone Unavailable Care Team Providers Care Electronic Bench Technician Name Role Phone ANTECOL, Carlito ABDI MD Unavailable Unavailable ANTECOL, Carlito ABDI MD Unavailable Unavailable ANTECOL, Carlito ABDI MD Unavailable Unavailable ANTECOL, Carltio ABDI MD Unavailable Unavailable ANTECOL, Carlito ABDI [...] is protected by Article 27-F of the [facility] Public Health law. If you continue you may have access to information: Regarding HIV / AIDS; Provided by facilities licensed or operated by the [facility] Office of Mental Health; or Provided by the [facility] Office for People With Developmental Disabilities. If such information is present, then the following [facility] mandated warning applies: This information has [...] law may result in a fine or correction sentence or both. A general authorization for the release of medical or other information is NOT sufficient authorization for further disc losure. Allergies and Adverse Reactions Type Description Substance Reaction Status Data Source(s ) Latex Latex Latex active [facility] ([facility]) Bee sting Bee sting Bee sting active [place] ([facility]) No Known Allergies No Known Allergies [facility] No Known Drug Allergies No Known Drug Allergies [facility] Drug allergy Latex Gloves Drug allergy Rash/ITCHING Active eCW1 ([facility]) Bee Stings Bee Stings Bee Stings Anaphylaxis Active W ([facility]) Encounters Encounter Providers Location Date Indications Data Source(s ) 12/16/2020 12:00:00 AM EST - 021 11:23:30 PM EST [facility] ([facility]) TeleMedicine Phone E/M by Ramon 11-20 Min [address] [place] [address] 12/12/2020 12:00:00 AM EST eCW1 ([facility]) Unknown [address] [facility] [address] 12/08/2020 12:00:00 AM EST eCW1 ([facility], [facility]) Outpatient Attender: Iris CARRASCO-CConsultant: PCP NO 11/24/2020 11:03:00 AM EST - 11/24/2020 11:03:00 AM EST [facility] [place] [address] [facility] [address] 11/20/2020 12:00:00 AM EST eCW1 ([facility], [facility]) [place] [address] [facility] [address] 11/14/2020 12:00:00 AM EST eCW1 ([facility], [facility]) Unknown [address] [facility] [address] 11/10/2020 12:00:00 AM EST eCW1 ([facility], [facility]) Outpatient Attender: Iris FLORCConsultant: PCP NO 10/17/2020 01:13:00 PM EST - 10/17/2020 02:13:00 PM EST [facility] Outpatient Attender: Amie Clarke/Werner/Bladimir/Kun ndl 10/16/2020 09:30:00 AM EST MEDENT ([facility]) Outpatient Attender: Iris FLORCConsultant: PCP NO 10/10/2020 07:57:57 AM EST - 10/13/2020 11:30:00 AM EST [facility] Patient discharged. Unknown [address] [facility], [facility] [address] 10/07/2020 12:00:00 AM EST eCW1 ([facility], [facility]) Outpatient Attender: Iris Stokes PA-C 04/2020 01:33:00 PM EST - 10/06/2020 01:33:00 PM [facility] [place] [address] [facility] [address] 10/01/2020 12:00:00 AM EST eCW1 ([facility], [facility]) Outpatient Attender: Iris Stokes PA-C 02/2020 03:10:00 PM EST - 09/04/2020 03:10:00 PM [facility] Outpatient Attender: Iris Stokes PA-C [facility] 02/2020 02:00:00 PM EST MED[facility] ([facility]) [place] [address] [facility] [address] 08/29/2020 12:00:00 AM EDT eCW1 ([facility], [facility]) Outpatient Attender: Amie Clarke/Werner/Bladimir/Kun ndl 08/27/2020 01:00:00 PM EDT MEDENT ([facility]) Outpatient [address] [facility] [address] 08/27/2020 12:00:00 AM EDT eCW1 ([facility]) [place] [address] [facility] [address] 08/27/2020 12:00:00 AM EDT eCW1 ([facility]) [place] [address] [facility] [address] 08/27/2020 12:00:00 AM EDT eCW1 ([facility]) Outpatient Attender: Rebecca CARRASCO Main Office 08/22/2020 01:45:0 0 PM EDT MEDENT ([facility]) [place] [address] [facility] [address] 08/22/2020 12:00:00 AM EDT eCW1 ([facility]) Unknown [address] [facility] [address] 08/21/2020 12:00:00 AM EDT eCW1 ([facility]) [place] [address] [facility] [address] 08/18/2020 12:00:00 AM EDT eCW1 ([facility]) Unknown [address] [facility] [address] 08/11/2020 12:00:00 AM EDT eCW1 ([facility]) Unknown [address] [facility] [address] 08/11/2020 12:00:00 AM EDT eCW1 ([facility]) Unknown [address] [facility] [place] [address] 08/08/2020 12:00:00 AM EDT eCW1 ([facility]) Outpatient [address] [facility] [place] [address] 08/07/2020 12:00:00 AM EDT eCW1 ([facility]) Unknown [address] [facility] [address] 08/01/2020 12:00:00 AM EDT eCW1 ([facility]) Unknown [address] [facility], [facility] [address] 07/22/2020 12:00:00 AM EDT [facility]CW1 [facility] Outpatient Attender: JIN WEAVER MD Main Office 05/15/2020 12:30:00 PM EDT MEDENT ([facility]) (TCM) Transition of Care Visit [address] [place] [address] 05/05/2020 12:00:00 AM EDT eCW1 ([facility]) Unknown [address] [facility] [address] 04/15/2020 12:00:00 AM EDT eCW1 ([facility]) TeleMedicine Phone E/M by Phys 11-[address] [place] [phone] 04/10/2020 12:00:00 AM EDT eCW1 ([facility]) Unknown [address] [facility] [address] 04/07/2020 12:00:00 AM EDT eCW1 ([facility]) [facility] Pain Center [address] [place] [address] 03/26/2020 12:00:00 AM EDT eCW1 ([facility] Outpatient [address] [facility] [address] 03/21/2020 12:00:00 AM EDT eCW1 ([facility] [place] Outpatient Attender: Amie Clarke/Werner/Bladimir/Kun ndl 03/19/2020 02:30:00 PM EDT MEDENT ([facility]) [facility] [address] [place] [address] 03/14/2020 12:00:00 AM EDT eCW1 ([facility]) [facility] [address] [place] [address] 03/13/2020 12:00:00 AM EDT eCW1 ([facility]) [facility] Pain Center [address] [place] [address] 03/11/2020 12:00:00 AM EDT eCW1 ([facility]) [address] [place] [address] 03/07/2020 12:00:00 AM EDT eCW1 ([facility]) [address] [place] [address] 03/04/2020 12:00:00 AM EDT eCW1 ([facility]) [address] [place] [address] 02/26/2020 12:00:00 AM EDT eCW1 ([facility]) [address] [place] [address] 02/26/2020 12:00:00 AM EDT eCW1 ([facility]) [facility] Pain Center [address] [place] [phone] 02/19/2020 12:00:00 AM EDT eCW1 ([facility]) [facility] Pain Center [address] [place] [address] 02/18/2020 12:00:00 AM EDT eCW1 ([facility]) Outpatient Attender: Amie Clarke/Werner/Bladimir/Kun miranda 01/21/2020 11:00:00 AM EDT MEDENT ([facility]) [address] [place] [address] 01/21/2020 12:00:00 AM EDT eCW1 ([facility]) [address] [place] [address] 01/21/2020 12:00:00 AM EDT eCW1 ([facility]) [facility] Pain Center [address] [place] [address] 01/17/2020 12:00:00 AM EDT eCW1 ([facility]) [facility] Pain Center [address] [place] [phone] 01/15/2020 12:00:00 AM EDT eCW1 ([facility]) [facility] GME Resident [address] [place] [address] 01/07/2020 12:00:00 AM EDT eCW1 ([facility]) Outpatient 01/03/2020 03:10:00 PM EST [facility] [address] [address] 01/03/2020 12:00:00 AM EST eCW1 ([facility]) [address] [address] 01/03/2020 12:00:00 AM EST eCW1 ([facility]) [address] [address] 01/03/2020 12:00:00 AM EST eCW1 ([facility]) [facility] Pain Center [address] [place] [phone] 01/01/2020 12:00:00 AM EST eCW1 ([facility]) [facility] Pain Center [address] [place] [phone] 12/24/2019 12:00:00 AM EST eCW1 ([facility]) [facility] Pain Center [address] [place] [phone] 12/14/2019 12:00:00 AM EST eCW1 ([facility]) [address] [address] 12/07/2019 12:00:00 AM EST eCW1 ([facility]) [address] [address] 12/03/2019 12:00:00 AM EST eCW1 ([facility]) [facility] GME Resident [address] [place] [phone] 12/03/2019 12:00:00 AM EST eCW1 ([facility], [facility]) [facility] Pain Center [address] [place] [phone] 11/30/2019 12:00:00 AM EST eCW1 ([facility], [facility]) Outpatient Attender: Amie Clarke/Werner/Bladimir/Kun ndl 11/26/2019 08:00:00 AM EST MEDENT ([facility] [place] [address] 11/20/2019 12:00:00 AM EST eCW1 (Critical access hospital) [facility] Pain Center [address] [place], [place] [phone] 11/16/2019 12:00:00 AM EST eCW1 ([facility], [facility]) [facility] Pain Center [address] [place], [place] [phone] 11/16/2019 12:00:00 AM EST eCW1 ([facility], [facility]) [facility] Pain Center [address] [place], [place] [phone] 11/13/2019 12:00:00 AM EST eCW1 ([facility], [facility]) Outpatient 11/09/2019 11:48:00 AM EST [facility] Outpatient Attender: Amie Clarke/Werner/Bladimir/Kun ndbrandy 11/01/2019 08:30:00 AM EST MEDENT ([facility] Immunizations Vaccine Date Status Description Data Source(s) New in 2011. IIV4 09/04/2020 02:30:00 PM EST completed MEDENT ([facility]) Medications Medication Brand Name Start Date Product Form Dose Route Admi nistrative Instructions Pharmacy Instructions Status Indications Reaction Description Data Source(s) Albuterol Sulfate (2.5 MG/3ML) 0.083% Albuterol Sulfate 12:00:00 AM EST completed NETSMAR T ([facility]) Aspirin Adult Low Dose 81 MG Aspirin Adult Low Dose 12/16/2020 1 2:00:00 AM EST completed NETSMA RT ([facility]) Oxygen Oxygen 12/16/2020 12:00:00 AM EST 6.0 {L} comple liza NETSMART ([facility]) Spironolactone 25 MG Spironolactone 12/16/2020 12:00:00 AM EST completed NETSMART ([facility]) Bisoprolol Fumarate 5 MG Bisoprolol Fumarate 12/16/2020 12:00:00 AM EST 0.5 {tablet} completed NETSMART ([facility]) BuPROPion HCl 75 MG BuPROPion HCl 12/16/2020 12:00:00 AM EST completed [facility]ART ([facility]) Atorvastatin Calcium 40 MG Atorvastatin Calcium 12/16/2020 12:00:00 A M EST completed [facility] ( [facility]) Omeprazole 20 MG Omeprazole 12/16/2020 12:00:00 AM EST completed [facility] ([facility] ) Torsemide 20 MG Torsemide 12/16/2020 12:00:00 AM EST completed [facility] ([facility]) MetFORMIN HCl 500 MG MetFORMIN HCl 12/16/2020 12:00:00 AM EST completed [facility] ([facility]) Pregabalin 75 MG Pregabalin 12/16/2020 12:00:00 AM EST completed [facility] ([facility] ) Azithromycin 250 MG Azithromycin 12/16/2020 12:00:00 AM EST completed [facility] ([facility]) Levothyroxine Sodium 50 MCG Levothyroxine Sodium 12/16/2020 12:00:00 AM EST completed [facility] ( [facility]) Vitamin B-12 2500 MCG Vitamin B-12 12/16/2020 12:00:00 AM EST completed [facility]ART ([facility]) 5 mg 11/12/2020 12:00:00 AM EST tablet 45 TAKE 1/2 TABLET BY MOUTH DAILY TAKE 1/2 TABLET BY MOUTH DAILY SOLD: 11/14/2020 [facility] CPAP 11/11/2020 12:00:00 AM EST active MEDENT ([facility] ) Acetaminophen 325 MG / Hydrocodone Alexus trate 5 MG Oral Tablet Hydrocodone- Acetaminophen 5-325 MG Hydrocodone-Acetaminophen 5-325 MG 11/10/2020 12:00:00 AM EST 1.0 {tablet_as_needed} active Hydrocodone-Acetaminophen 5-325 MG eCW1 ([facility]) Acetaminophen 325 MG / Hydrocodone Alexus trate 5 MG Oral Tablet Hydrocodone- Acetaminophen 5-325 MG Hydrocodone-Acetaminophen 5-325 MG 11/10/2020 12:00:00 AM EST 1.0 {tablet_as_needed} active Hydrocodone-Acetaminophen 5-325 MG eCW1 ([facility]) Acetaminophen 325 MG / Hydrocodone Alexus trate 5 MG Oral Tablet Hydrocodone- Acetaminophen 5-325 MG Hydrocodone-Acetaminophen 5-325 MG 11/10/2020 12:00:00 AM EST 1.0 {tablet_as_needed} active Hydrocodone-Acetaminophen 5-325 MG eCW1 ([facility]) 20 mg 11/10/2020 12:00:00 AM EST tablet 240 TAKE 4 TABLETS BY MOUTH EVERY MORNING TAKE 4 TABLETS BY MOUTH EVERY MORNING SOLD: 11/11/2020 [facility] Acetaminophen 325 MG / Hydrocodone Alexus trate 5 MG Oral Tablet Hydrocodone- Acetaminophen 5-325 MG Hydrocodone-Acetaminophen 5-325 MG 11/10/2020 12:00:00 AM EST 1.0 {tablet_as_needed} active Hydrocodone-Acetaminophen 5-325 MG eCW1 ([facility]) Acetaminophen 325 MG / Hydrocodone Alexus trate 5 MG Oral Tablet Hydrocodone- Acetaminophen 5-325 MG Hydrocodone-Acetaminophen 5-325 MG 11/10/2020 12:00:00 AM EST 1.0 {tablet_as_needed} active Hydrocodone-Acetaminophen 5-325 MG eCW1 ([facility]) 25 mg 10/29/2020 12:00:00 AM EST tablet 30 TAKE ONE TABLET BY MOUTH EVERY DAY TAKE ONE TABLET BY MOUTH EVERY DAY SOLD: 10/29/2020 [facility] 25 mg 10/29/2020 12:00:00 AM EST tablet 30 TAKE ONE TABLET BY MOUTH EVERY DAY TAKE ONE TABLET BY MOUTH EVERY DAY SOLD: 12/01/2020 [facility] 250 mg 10/16/2020 12:00:00 AM EST tablet 30 TAKE ONE TABLET BY MOUTH EVERY DAY TAKE ONE TABLET BY MOUTH EVERY DAY SOLD: 11/16/2020 [facility] 20 mg 10/16/2020 12:00:00 AM EST capsule,delayed release (DR/EC) 30 TAKE ONE CAPSULE BY MOUTH DAILY TAKE ONE CAPSULE BY MOUTH DAILY SOLD: 10/16/2020 [facility] 250 mg 10/16/2020 12:00:00 AM EST tablet 30 TAKE ONE TABLET BY MOUTH EVERY DAY TAKE ONE TABLET BY MOUTH EVERY DAY SOLD: 10/16/2020 [facility] 250 mg 10/16/2020 12:00:00 AM EST tablet 30 TAKE ONE TABLET BY MOUTH EVERY DAY TAKE ONE TABLET BY MOUTH EVERY DAY SOLD: 12/20/2020 [facility] atorvastatin 40 MG Oral Tablet ATORVASTATIN CALCIUM 10/13/2020 1 2:00:00 AM EST tablet 30 TAKE ONE TABLET BY MOUTH EVERY D AY TAKE ONE TABLET BY MOUTH EVERY DAY SOLD: 10/13/2020 [facility] atorvastatin 40 MG Oral Tablet ATORVASTATIN CALCIUM 10/13/2020 1 2:00:00 AM EST tablet 30 TAKE ONE TABLET BY MOUTH EVERY D AY TAKE ONE TABLET BY MOUTH EVERY DAY SOLD: 12/13/2020 [facility] 1,250 mcg (50,000 unit) 10/08/2020 12:00:00 AM EST capsule 12 TAKE 1 CAPSULE BY MOUTH EVERY WEEK TAKE 1 CAPSULE BY MOUTH EVERY WEEK SOLD: 10/10/2020 [facility] Acetaminophen 325 MG / Hydrocodone Alexus trate 5 MG Oral Tablet Hydrocodone- Acetaminophen 5-325 MG Hydrocodone-Acetaminophen 5-325 MG 10/08/2020 12:00:00 AM EST 1.0 {tablet_as_needed} active Hydrocodone-Acetaminophen 5-325 MG eCW1 ([facility]) Acetaminophen 325 MG / Hydrocodone Alexus trate 5 MG Oral Tablet Hydrocodone- Acetaminophen 5-325 MG Hydrocodone-Acetaminophen 5-325 MG 10/08/2020 12:00:00 AM EST 1.0 {tablet_as_needed} active Hydrocodone-Acetaminophen 5-325 MG eCW1 ([facility]) Oxygen Concentrator 10L With Tubing And Mask, ALL Supplies 10/06/2020 12:00:00 AM EST active MEDENT ([facility]) Cholecalciferol 05751 UNT Oral Tablet Vitamin D3 Ultra Poten cy 10/06/2020 12:00:00 AM EST ORAL active M EDENT ([facility]) 20 mg 09/30/2020 12:00:00 AM EST tablet 90 TAKE ONE TABLET BY MOUTH EVERY DAY IN THE MORNING TAKE ONE TABLET BY MOUTH EVERY DAY IN THE MORNING SOLD : 09/30/2020 [facility] 75 mg 09/30/2020 12:00:00 AM EST tablet 60 TAKE ONE TABLET BY MOUTH TWICE A DAY TAKE ONE TABLET BY MOUTH TWICE A DAY SOLD: 11/01/2020 [facility] 75 mg 09/30/2020 12:00:00 AM EST tablet 60 TAKE ONE TABLET BY MOUTH TWICE A DAY TAKE ONE TABLET BY MOUTH TWICE A DAY SOLD: 12/06/2020 [facility] 20 mg 09/30/2020 12:00:00 AM [...] TABLET BY MOUTH TWICE A DAY SOLD: 12/10/2020 [facility] Metformin hydrochloride 500 MG Oral Tablet METFORMIN [...] MOUTH THREE TIMES A DAY NEEDED SOLD: 11/21/2020 [facility] tizanidine 4 MG Oral Tablet TIZANIDINE HCL 09/15/2020 12:00:00 AM EST tablet 30 TAKE 1/2-1 TABLET BY MOUTH THREE TIMES A DAY NEEDED TAKE 1/2-1 TABLET BY MOUTH THREE TIMES A DAY NEEDED SOLD: 11/20/2020 [facility] 75 mg 09/15/2020 12:00:00 AM EST capsule 90 TAKE ONE CAPSULE BY MOUTH EVERY 8 HOURS MAXIMUM DAILY DOSE = 3 TAKE ONE CAPSULE BY MOUTH EVERY 8 HOURS MAXIMUM DAILY DOSE = 3 SOLD: 12/10/2020 [facility] 20 mEq 09/15/2020 12:00:00 AM EST tablet extended release 30 TAKE ONE TABLET BY MOUTH EVERY DAY TAKE ONE TABLET BY MOUTH EVERY DAY SOLD: 09/17/2020 [facility] 250 mg 09/15/2020 12:00:00 AM EST tablet [...] DAILY DOSE = 3 SOLD: 09/17/2020 [facility] tizanidine 4 MG Oral Tablet TIZANIDINE HCL 09/15/2020 12:00:00 AM EST tablet 30 TAKE 1/2-1 TABLET BY MOUTH THREE TIMES A DAY NEEDED TAKE 1/2-1 TABLET BY MOUTH THREE TIMES A DAY NEEDED SOLD: 09/17/2020 [facility] 20 mg 09/15/2020 12:00:00 AM EST capsule,delayed release (DR/EC) 30 TAKE ONE CAPSULE BY MOUTH EVERY DAY TAKE ONE CAPSULE BY MOUTH EVERY DAY SOLD: 12/19/2020 [facility] 90 mcg/actuation 09/15/2020 12:00:00 AM EST HFA [...] MOUTH EVERY DAY SOLD: 09/17/2020 [facility] tizanidine 4 MG Oral Tablet TIZANIDINE HCL 09/15/2020 12:00:00 AM EST tablet 30 TAKE 1/2-1 TABLET BY MOUTH THREE TIMES A DAY NEEDED TAKE 1/2-1 TABLET BY MOUTH THREE TIMES A DAY NEEDED SOLD: 12/06/2020 [facility] Bupropion Hydrochloride 75 MG Oral Tablet Bupropion HCL 09/12/2020 12:00:00 AM EST ORAL active MEDENT ([facility]) 75 mg 09/12/2020 12:00:00 AM EST tablet 30 TAKE ONE TABLET BY MOUTH TWICE A DAY TAKE ONE TABLET BY MOUTH TWICE A DAY SOLD: 09/14/2020 [facility] Loratadine 10 MG Oral Tablet [Claritin] Claritin 09/04/2020 12:00:0 0 AM EST ORAL active MEDENT ([facility]) Belbuca 150 MCG Belbuca 150 MCG 09/01/2020 12:00:00 AM EST active Belbuca 150 MCG eCW1 ([facility]) Belbuca 150 MCG Belbuca 150 MCG 09/01/2020 12:00:00 AM EST active Bel[place]uca 150 MCG eCW1 ([facility]) Belbuca 150 MCG Belbuca 150 MCG 09/01/2020 12:00:00 AM EST active [place] 150 MCG eCW1 ([facility]) Belbuca 150 MCG Belbuca 150 MCG 09/01/2020 12:00:00 AM EST active Belbuca 150 MCG eCW1 ([facility]) Belbuca 150 MCG Belbuca 150 MCG 09/01/2020 12:00:00 AM EST active Belbuca 150 MCG eCW1 ([facility]) Belbuca 150 MCG Belbuca 150 MCG 09/01/2020 12:00:00 AM EST active [place] 150 MCG eCW1 ([facility]) Belbuca 150 MCG Belbuca 150 MCG 09/01/2020 12:00:00 AM EST active Bel[place] 150 MCG eCW1 ([facility]) Belbuca 150 MCG Belbuca 150 MCG 09/01/2020 12:00:00 AM EST active Belbuca 150 MCG eCW1 ([facility]) Belbuca 150 MCG Belbuca 150 MCG 09/01/2020 12:00:00 AM EST active Bel[place] 150 MCG eCW1 ([facility]) Belbuca 150 MCG Belb[place] 150 MCG 09/01/2020 12:00:00 AM EST active [place] 150 MCG eCW1 ([facility]) Belbuca 150 MCG Bel[place]uca 150 MCG 09/01/2020 12:00:00 AM EST active [place] 150 MCG eCW1 ([facility]) Acetaminophen 325 MG / Hydrocodone Alexus trate 5 MG Oral Tablet Hydrocodone- Acetaminophen 5-325 MG Hydrocodone-Acetaminophen 5-325 MG 08/27/2020 12:00:00 AM EDT 1.0 {tablet_as_needed} active Hydrocodone-Acetaminophen 5-325 MG eCW1 ([facility]) 168 HR Buprenorphine 0.01 MG/HR Transdermal Patch [BuT rans] Butrans 10 MCG/HR Butrans 10 MCG/HR 08/27/2020 12:00:00 AM EDT 1.0 {patch_to_skin} active Butrans 10 MCG/HR eCW1 ([facility]) Acetaminophen 325 MG / Hydrocodone Alexus trate 5 MG Oral Tablet Hydrocodone- Acetaminophen 5-325 MG Hydrocodone-Acetaminophen 5-325 MG 08/27/2020 12:00:00 AM EDT 1.0 {tablet_as_needed} active Hydrocodone-Acetaminophen 5-325 MG eCW1 ([facility]) Acetaminophen 325 MG / Hydrocodone Alexus trate 5 MG Oral Tablet Hydrocodone- Acetaminophen 5-325 MG Hydrocodone-Acetaminophen 5-325 MG 08/27/2020 12:00:00 AM EDT 1.0 {tablet_as_needed} active Hydrocodone-Acetaminophen 5-325 MG eCW1 ([facility]) 168 HR Buprenorphine 0.01 MG/HR Transdermal Patch [BuT rans] Butrans 10 MCG/HR Butrans 10 MCG/HR 08/27/2020 12:00:00 AM EDT 1.0 {patch_to_skin} active Butrans 10 MCG/HR eCW1 ([facility]) 168 HR Buprenorphine 0.01 MG/HR Transdermal Patch [BuT rans] Butrans 10 MCG/HR Butrans 10 MCG/HR 08/27/2020 12:00:00 AM EDT 1.0 {patch_to_skin} active Butrans 10 MCG/HR eCW1 ([facility]) Acetaminophen 325 MG / Hydrocodone Alexus trate 5 MG Oral Tablet Hydrocodone- Acetaminophen 5-325 MG Hydrocodone-Acetaminophen 5-325 MG 08/27/2020 12:00:00 AM EDT 1.0 {tablet_as_needed} active Hydrocodone-Acetaminophen 5-325 MG eCW1 ([facility]) 168 HR Buprenorphine 0.01 MG/HR Transdermal Patch [BuT rans] Butrans 10 MCG/HR Butrans 10 MCG/HR 08/27/2020 12:00:00 AM EDT 1.0 {patch_to_skin} suspended Butrans 10 MCG/HR eCW1 ([facility]) Acetaminophen 325 MG / Hydrocodone Alexus trate 5 MG Oral Tablet Hydrocodone- Acetaminophen 5-325 MG Hydrocodone-Acetaminophen 5-325 MG 08/27/2020 12:00:00 AM EDT 1.0 {tablet_as_needed} active Hydrocodone-Acetaminophen 5-325 MG eCW1 ([facility]) Acetaminophen 325 MG / Hydrocodone Alexus trate 5 MG Oral Tablet Hydrocodone- Acetaminophen 5-325 MG Hydrocodone-Acetaminophen 5-325 MG 08/27/2020 12:00:00 AM EDT 1.0 {tablet_as_needed} active Hydrocodone-Acetaminophen 5-325 MG eCW1 ([facility]) Acetaminophen 325 MG / Hydrocodone Alexus trate 5 MG Oral Tablet Hydrocodone- Acetaminophen 5-325 MG Hydrocodone-Acetaminophen 5-325 MG 08/27/2020 12:00:00 AM EDT 1.0 {tablet_as_needed} active Hydrocodone-Acetaminophen 5-325 MG eCW1 ([facility]) 168 HR Buprenorphine 0.01 MG/HR Transdermal Patch [BuT rans] Butrans 10 MCG/HR Butrans 10 MCG/HR 08/27/2020 12:00:00 AM EDT 1.0 {patch_to_skin} active Butrans 10 MCG/HR eCW1 ([facility]) 168 HR Buprenorphine 0.01 MG/HR Transdermal Patch [BuT rans] Butrans 10 MCG/HR Butrans 10 MCG/HR 08/27/2020 12:00:00 AM EDT 1.0 {patch_to_skin} active Butrans 10 MCG/HR eCW1 ([facility]) 168 HR Buprenorphine 0.01 MG/HR Transdermal Patch [BuT rans] Butrans 10 MCG/HR Butrans 10 MCG/HR 08/27/2020 12:00:00 AM EDT 1.0 {patch_to_skin} active Butrans 10 MCG/HR eCW1 ([facility]) 168 HR Buprenorphine 0.01 MG/HR Transdermal Patch [BuT rans] Butrans 10 MCG/HR Butrans 10 MCG/HR 08/27/2020 12:00:00 AM EDT 1.0 {patch_to_skin} active Butrans 10 MCG/HR eCW1 ([facility]) 168 HR Buprenorphine 0.01 MG/HR Transdermal Patch [BuT rans] Butrans 10 MCG/HR Butrans 10 MCG/HR 08/27/2020 12:00:00 AM EDT 1.0 {patch_to_skin} active Butrans 10 MCG/HR eCW1 ([facility]) Prednisone 10 MG Oral Tablet Prednisone 08/27/2020 12:00:00 AM EDT ORAL completed MEDENT ([facility]) Acetaminophen 325 MG / Hydrocodone Alexus trate 5 MG Oral Tablet Hydrocodone- Acetaminophen 5-325 MG Hydrocodone-Acetaminophen 5-325 MG 08/27/2020 12:00:00 AM EDT 1.0 {tablet_as_needed} active Hydrocodone-Acetaminophen 5-325 MG eCW1 ([facility]) 168 HR Buprenorphine 0.01 MG/HR Transdermal Patch [BuT rans] Butrans 10 MCG/HR Butrans 10 MCG/HR 08/27/2020 12:00:00 AM EDT 1.0 {patch_to_skin} active Butrans 10 MCG/HR eCW1 ([facility]) 168 HR Buprenorphine 0.01 MG/HR Transdermal Patch [BuT rans] Butrans 10 MCG/HR Butrans 10 MCG/HR 08/27/2020 12:00:00 AM EDT 1.0 {patch_to_skin} active Butrans 10 MCG/HR eCW1 ([facility]) 168 HR Buprenorphine 0.01 MG/HR Transdermal Patch [BuT rans] Butrans 10 MCG/HR Butrans 10 MCG/HR 08/27/2020 12:00:00 AM EDT 1.0 {patch_to_skin} active Butrans 10 MCG/HR eCW1 ([facility]) Acetaminophen 325 MG / Hydrocodone Alexus trate 5 MG Oral Tablet Hydrocodone- Acetaminophen 5-325 MG Hydrocodone-Acetaminophen 5-325 MG 08/27/2020 12:00:00 AM EDT 1.0 {tablet_as_needed} active Hydrocodone-Acetaminophen 5-325 MG eCW1 ([facility]) 168 HR Buprenorphine 0.01 MG/HR Transdermal Patch [BuT rans] Butrans 10 MCG/HR Butrans 10 MCG/HR 08/27/2020 12:00:00 AM EDT 1.0 {patch_to_skin} active Butrans 10 MCG/HR eCW1 ([facility]) 168 HR Buprenorphine 0.01 MG/HR Transdermal Patch [BuT rans] Butrans 10 MCG/HR Butrans 10 MCG/HR 08/27/2020 12:00:00 AM EDT 1.0 {patch_to_skin} active Butrans 10 MCG/HR eCW1 ([facility]) 168 HR Buprenorphine 0.01 MG/HR Transdermal Patch [BuT rans] Butrans 10 MCG/HR Butrans 10 MCG/HR 08/27/2020 12:00:00 AM EDT 1.0 {patch_to_skin} active Butrans 10 MCG/HR eCW1 ([facility]) 168 HR Buprenorphine 0.01 MG/HR Transdermal Patch [BuT rans] Butrans 10 MCG/HR Butrans 10 MCG/HR 08/27/2020 12:00:00 AM EDT 1.0 {patch_to_skin} active Butrans 10 MCG/HR eCW1 ([facility]) Albuterol 0.83 MG/ML Inhalant Solution Albuterol Sulfate 1 12:00:00 AM EDT active MEDENT ([facility]) 0.3 ML Epinephrine 1 MG/ML Auto-Injector [Epipen] Epipen 2-P ak 08/21/2020 12:00:00 AM EDT active M EDENT ([facility]) 200 ACTUAT Albuterol 0.09 MG/ACTUAT Metered Dose Inhaler [Pr oAir] Proair HFA 08/21/2020 12:00:00 AM EDT ORAL active MEDENT ([facility]) pregabalin 75 MG Oral Capsule [Lyrica] Lyrica 08/21/2020 12:00:00 AM EDT ORAL active MEDENT ([facility]) Rolling Walker 1 UNK 08/14/2020 12:00:00 AM EDT active Rolling Walker 1 eCW1 ([facility]) Rolling Walker 1 UNK 08/14/2020 12:00:00 AM EDT active Rolling Walker 1 eCW1 ([facility]) Rolling Walker 1 UNK 08/14/2020 12:00:00 AM EDT active Rolling Walker 1 eCW1 ([facility]) Rolling Walker 1 UNK 08/14/2020 12:00:00 AM EDT active Rolling Walker 1 eCW1 ([facility]) Rolling Walker 1 UNK 08/14/2020 12:00:00 AM EDT active Rolling Walker 1 eCW1 ([facility]) Rolling Walker 1 UNK 08/14/2020 12:00:00 AM EDT active Rolling Walker 1 eCW1 ([facility]) Rolling Walker 1 UNK 08/14/2020 12:00:00 AM EDT active Rolling Walker 1 eCW1 ([facility]) Rolling Walker 1 UNK 08/14/2020 12:00:00 AM EDT active Rolling Walker 1 eCW1 ([facility]) Rolling Walker 1 UNK 08/14/2020 12:00:00 AM EDT active Rolling Walker 1 eCW1 ([facility]) Rolling Walker 1 UNK 08/14/2020 12:00:00 AM EDT active Rolling Walker 1 eCW1 ([facility]) Rolling Walker 1 UNK 08/14/2020 12:00:00 AM EDT active Rolling Walker 1 eCW1 ([facility]) Rolling Walker 1 UNK 08/14/2020 12:00:00 AM EDT active Rolling Walker 1 eCW1 ([facility]) Rolling Walker 1 K 08/14/2020 12:00:00 AM EDT active Rolling Walker 1 eCW1 ([facility]) Rolling Walker 1 UNK 08/14/2020 12:00:00 AM EDT active Rolling Walker 1 eCW1 ([facility]) Rolling Walker 1 UNK 08/14/2020 12:00:00 AM EDT active Rolling Walker 1 eCW1 ([facility]) Rolling Walker 1 UNK 08/14/2020 12:00:00 AM EDT active Rolling Walker 1 eCW1 ([facility]) Rolling Walker 1 UNK 08/14/2020 12:00:00 AM EDT active Rolling Walker 1 eCW1 ([facility]) Potassium Chloride 20 MEQ Extended Relea se Oral Tablet Potassium Chloride ER 20 MEQ Potassium Chloride ER 20 MEQ 08/07/2020 12:00:00 AM EDT 1.0 {tablet_with_food} active Potassium Chl oride ER 20 MEQ eCW1 ([facility]) Potassium Chloride 20 MEQ Extended Relea se Oral Tablet Potassium Chloride ER 20 MEQ Potassium Chloride ER 20 MEQ 08/07/2020 12:00:00 AM EDT 1.0 {tablet_with_food} active Potassium Chl oride ER 20 MEQ eCW1 ([facility]) Potassium Chloride 20 MEQ Extended Relea se Oral Tablet Potassium Chloride ER 20 MEQ Potassium Chloride ER 20 MEQ 08/07/2020 12:00:00 AM EDT 1.0 {tablet_with_food} active Potassium Chl oride ER 20 MEQ eCW1 ([facility]) Potassium Chloride 20 MEQ Extended Relea se Oral Tablet Potassium Chloride ER 20 MEQ Potassium Chloride ER 20 MEQ 08/07/2020 12:00:00 AM EDT 1.0 {tablet_with_food} active Potassium Chl oride ER 20 MEQ eCW1 ([facility]) Potassium Chloride 20 MEQ Extended Relea se Oral Tablet Potassium Chloride ER 20 MEQ Potassium Chloride ER 20 MEQ 08/07/2020 12:00:00 AM EDT 1.0 {tablet_with_food} active Potassium Chl oride ER 20 MEQ eCW1 ([facility]) Potassium Chloride 20 MEQ Extended Relea se Oral Tablet Potassium Chloride ER 20 MEQ Potassium Chloride ER 20 MEQ 08/07/2020 12:00:00 AM EDT 1.0 {tablet_with_food} active Potassium Chl oride ER 20 MEQ eCW1 ([facility]) Potassium Chloride 20 MEQ Extended Relea se Oral Tablet Potassium Chloride ER 20 MEQ Potassium Chloride ER 20 MEQ 08/07/2020 12:00:00 AM EDT 1.0 {tablet_with_food} active Potassium Chl oride ER 20 MEQ eCW1 ([facility]) Potassium Chloride 20 MEQ Extended Relea se Oral Tablet Potassium Chloride ER 20 MEQ Potassium Chloride ER 20 MEQ 08/07/2020 12:00:00 AM EDT 1.0 {tablet_with_food} active Potassium Chl oride ER 20 MEQ eCW1 ([facility]) Potassium Chloride 20 MEQ Extended Relea se Oral Tablet Potassium Chloride ER 20 MEQ Potassium Chloride ER 20 MEQ 08/07/2020 12:00:00 AM EDT 1.0 {tablet_with_food} active Potassium Chl oride ER 20 MEQ eCW1 ([facility]) Potassium Chloride 20 MEQ Extended Relea se Oral Tablet Potassium Chloride ER 20 MEQ Potassium Chloride ER 20 MEQ 08/07/2020 12:00:00 AM EDT 1.0 {tablet_with_food} active Potassium Chl oride ER 20 MEQ eCW1 ([facility]) Potassium Chloride 20 MEQ Extended Relea se Oral Tablet Potassium Chloride ER 20 MEQ Potassium Chloride ER 20 MEQ 08/07/2020 12:00:00 AM EDT 1.0 {tablet_with_food} active Potassium Chl oride ER 20 MEQ eCW1 ([facility]) Potassium Chloride 20 MEQ Extended Relea se Oral Tablet Potassium Chloride ER 20 MEQ Potassium Chloride ER 20 MEQ 08/07/2020 12:00:00 AM EDT 1.0 {tablet_with_food} active Potassium Chl oride ER 20 MEQ eCW1 ([facility]) Potassium Chloride 20 MEQ Extended Relea se Oral Tablet Potassium Chloride ER 20 MEQ Potassium Chloride ER 20 MEQ 08/07/2020 12:00:00 AM EDT 1.0 {tablet_with_food} active Potassium Chl oride ER 20 MEQ eCW1 ([facility]) Potassium Chloride 20 MEQ Extended Relea se Oral Tablet Potassium Chloride ER 20 MEQ Potassium Chloride ER 20 MEQ 08/07/2020 12:00:00 AM EDT 1.0 {tablet_with_food} active Potassium Chl oride ER 20 MEQ eCW1 ([facility]) Potassium Chloride 20 MEQ Extended Relea se Oral Tablet Potassium Chloride ER 20 MEQ Potassium Chloride ER 20 MEQ 08/07/2020 12:00:00 AM EDT 1.0 {tablet_with_food} active Potassium Chl oride ER 20 MEQ eCW1 ([facility]) Potassium Chloride 20 MEQ Extended Relea se Oral Tablet Potassium Chloride ER 20 MEQ Potassium Chloride ER 20 MEQ 08/07/2020 12:00:00 AM EDT 1.0 {tablet_with_food} active Potassium Chl oride ER 20 MEQ eCW1 ([facility]) Potassium Chloride 20 MEQ Extended Relea se Oral Tablet Potassium Chloride ER 20 MEQ Potassium Chloride ER 20 MEQ 08/07/2020 12:00:00 AM EDT 1.0 {tablet_with_food} active Potassium Chl oride ER 20 MEQ eCW1 ([facility]) Potassium Chloride 20 MEQ Extended Relea se Oral Tablet Potassium Chloride ER 20 MEQ Potassium Chloride ER 20 MEQ 08/07/2020 12:00:00 AM EDT 1.0 {tablet_with_food} active Potassium Chl oride ER 20 MEQ eCW1 ([facility]) Potassium Chloride 20 MEQ Extended Relea se Oral Tablet Potassium Chloride ER 20 MEQ Potassium Chloride ER 20 MEQ 08/07/2020 12:00:00 AM EDT 1.0 {tablet_with_food} active Potassium Chl oride ER 20 MEQ eCW1 ([facility]) icosapent ethyl 1000 MG Oral Capsule [Vascepa] Vascepa 05/15/2020 12:00:00 AM EDT ORAL active MEDENT ([facility] Bisoprolol Fumarate 5 MG Oral Tablet Bisoprolol Fumarate 12:00:00 AM EDT ORAL active MEDENT ([facility]) Azithromycin 250 MG Oral Tablet Azithromycin 05/14/2020 12:00:00 AM E DT ORAL active MEDENT ([facility]) cetirizine hydrochloride 10 MG Oral Tablet Cetirizine HCL 05/14/2020 12:00:00 AM EDT ORAL active MEDENT ([facility]) Omeprazole 20 MG Delayed Release Oral Capsule Omeprazole 05/14/2020 12:00:00 AM EDT ORAL active MEDENT ([facility]) tizanidine 4 MG Oral Capsule Tizanidine HCL 05/14/2020 12:00:00 AM EDT ORAL active MEDENT ([facility]) 24 HR Propranolol Hydrochloride 60 MG Extended Release Oral Capsule Propranolol HCL ER 05/14/2020 12:00:00 AM EDT ORAL completed MEDENT ([facility]) Preservision Areds 2 05/14/2020 12:00:00 AM EDT ORAL active MEDENT ([facility]) 12 HR Bupropion Hydrochloride 150 MG Extended Release Oral Tablet Bupropion HCL ER (SR) 05/14/2020 12:00:00 AM EDT ORAL active MEDENT ([facility]) Metformin hydrochloride 500 MG Oral Tablet Metformin HCL 05/14/2020 12:00:00 AM EDT ORAL active MEDENT ([facility]) Furosemide 20 MG Oral Tablet Furosemide 05/14/2020 12:00:00 AM EDT ORAL active MEDENT ([facility]) Aspirin 81 MG Delayed Release Oral Tablet Aspirin 81 2019 12:00:00 AM EDT ORAL active MEDENT ( [facility]) Lisinopril 2.5 MG Oral Tablet Lisinopril 05/14/2020 12:00:00 AM EDT ORAL active MEDENT ([facility]) gabapentin 300 MG Oral Capsule Gabapentin 05/14/2020 12:00:00 AM EDT ORAL completed MEDENT ([facility]) Vitamin B 12 0.5 MG Oral Tablet Vitamin B12 05/14/2020 12:00:00 AM EDT ORAL active MEDENT ([facility]) Oxygen - Home 05/14/2020 12:00:00 AM EDT acti ve MEDENT ([facility]) atorvastatin 40 MG Oral Tablet Atorvastatin Calcium 05/14/2020 1 2:00:00 AM EDT ORAL active MEDENT ( [facility]) Sulfamethoxazole 400 MG / Trimethoprim 8 0 MG Oral Tablet Sulfamethoxazole- Trimethoprim 400-80 MG Sulfamethoxazole-Trimethoprim 400-80 MG 05/05/2020 12:00:00 AM EDT 1.0 {tablet} active Sulfamethoxazole-Trimethoprim 400-80 MG eCW1 ([facility]) Sulfamethoxazole 400 MG / Trimethoprim 8 0 MG Oral Tablet Sulfamethoxazole- Trimethoprim 400-80 MG Sulfamethoxazole-Trimethoprim 400-80 MG 05/05/2020 12:00:00 AM EDT 1.0 {tablet} active Sulfamethoxazole-Trimethoprim 400-80 MG eCW1 ([facility]) Albuterol 0.83 MG/ML Inhalant Solution Albuterol Sulfa te (2.5 MG/3ML) 0.083% Albuterol Sulfate (2.5 MG/3ML) 0.083% 04/25/2020 12:00:00 AM EDT 3.0 {ml} active Albuterol Sulfate (2.5 MG/3M L) 0.083% eCW1 ([facility]) Albuterol 0.83 MG/ML Inhalant Solution Albuterol Sulfa te (2.5 MG/3ML) 0.083% Albuterol Sulfate (2.5 MG/3ML) 0.083% 04/25/2020 12:00:00 AM EDT 3.0 {ml} active Albuterol Sulfate (2.5 MG/3M L) 0.083% eCW1 ([facility]) Albuterol 0.83 MG/ML Inhalant Solution Albuterol Sulfa te (2.5 MG/3ML) 0.083% Albuterol Sulfate (2.5 MG/3ML) 0.083% 04/25/2020 12:00:00 AM EDT 3.0 {ml} active Albuterol Sulfate (2.5 MG/3M L) 0.083% eCW1 ([facility]) Albuterol 0.83 MG/ML Inhalant Solution Albuterol Sulfa te (2.5 MG/3ML) 0.083% Albuterol Sulfate (2.5 MG/3ML) 0.083% 04/25/2020 12:00:00 AM EDT 3.0 {ml} active Albuterol Sulfate (2.5 MG/3M L) 0.083% eCW1 ([facility]) Albuterol 0.83 MG/ML Inhalant Solution Albuterol Sulfa te (2.5 MG/3ML) 0.083% Albuterol Sulfate (2.5 MG/3ML) 0.083% 04/25/2020 12:00:00 AM EDT 3.0 {ml} active Albuterol Sulfate (2.5 MG/3M L) 0.083% eCW1 ([facility]) Albuterol 0.83 MG/ML Inhalant Solution Albuterol Sulfa te (2.5 MG/3ML) 0.083% Albuterol Sulfate (2.5 MG/3ML) 0.083% 04/25/2020 12:00:00 AM EDT 3.0 {ml} active Albuterol Sulfate (2.5 MG/3M L) 0.083% eCW1 ([facility]) Albuterol 0.83 MG/ML Inhalant Solution Albuterol Sulfa te (2.5 MG/3ML) 0.083% Albuterol Sulfate (2.5 MG/3ML) 0.083% 04/25/2020 12:00:00 AM EDT 3.0 {ml} active Albuterol Sulfate (2.5 MG/3M L) 0.083% eCW1 ([facility]) Albuterol 0.83 MG/ML Inhalant Solution Albuterol Sulfa te (2.5 MG/3ML) 0.083% Albuterol Sulfate (2.5 MG/3ML) 0.083% 04/25/2020 12:00:00 AM EDT 3.0 {ml} active Albuterol Sulfate (2.5 MG/3M L) 0.083% eCW1 ([facility]) Albuterol 0.83 MG/ML Inhalant Solution Albuterol Sulfa te (2.5 MG/3ML) 0.083% Albuterol Sulfate (2.5 MG/3ML) 0.083% 04/25/2020 12:00:00 AM EDT 3.0 {ml} active Albuterol Sulfate (2.5 MG/3M L) 0.083% eCW1 ([facility]) Albuterol 0.83 MG/ML Inhalant Solution Albuterol Sulfa te (2.5 MG/3ML) 0.083% Albuterol Sulfate (2.5 MG/3ML) 0.083% 04/25/2020 12:00:00 AM EDT 3.0 {ml} active Albuterol Sulfate (2.5 MG/3M L) 0.083% eCW1 ([facility]) Albuterol 0.83 MG/ML Inhalant Solution Albuterol Sulfa te (2.5 MG/3ML) 0.083% Albuterol Sulfate (2.5 MG/3ML) 0.083% 04/25/2020 12:00:00 AM EDT 3.0 {ml} active Albuterol Sulfate (2.5 MG/3M L) 0.083% eCW1 ([facility]) Albuterol 0.83 MG/ML Inhalant Solution Albuterol Sulfa te (2.5 MG/3ML) 0.083% Albuterol Sulfate (2.5 MG/3ML) 0.083% 04/25/2020 12:00:00 AM EDT 3.0 {ml} active Albuterol Sulfate (2.5 MG/3M L) 0.083% eCW1 ([facility]) Albuterol 0.83 MG/ML Inhalant Solution Albuterol Sulfa te (2.5 MG/3ML) 0.083% Albuterol Sulfate (2.5 MG/3ML) 0.083% 04/25/2020 12:00:00 AM EDT 3.0 {ml} active Albuterol Sulfate (2.5 MG/3M L) 0.083% eCW1 ([facility]) Albuterol 0.83 MG/ML Inhalant Solution Albuterol Sulfa te (2.5 MG/3ML) 0.083% Albuterol Sulfate (2.5 MG/3ML) 0.083% 04/25/2020 12:00:00 AM EDT 3.0 {ml} active Albuterol Sulfate (2.5 MG/3M L) 0.083% eCW1 ([facility]) Albuterol 0.83 MG/ML Inhalant Solution Albuterol Sulfa te (2.5 MG/3ML) 0.083% Albuterol Sulfate (2.5 MG/3ML) 0.083% 04/25/2020 12:00:00 AM EDT 3.0 {ml} active Albuterol Sulfate (2.5 MG/3M L) 0.083% eCW1 ([facility]) Albuterol 0.83 MG/ML Inhalant Solution Albuterol Sulfa te (2.5 MG/3ML) 0.083% Albuterol Sulfate (2.5 MG/3ML) 0.083% 04/25/2020 12:00:00 AM EDT 3.0 {ml} active Albuterol Sulfate (2.5 MG/3M L) 0.083% eCW1 ([facility]) Albuterol 0.83 MG/ML Inhalant Solution Albuterol Sulfa te (2.5 MG/3ML) 0.083% Albuterol Sulfate (2.5 MG/3ML) 0.083% 04/25/2020 12:00:00 AM EDT 3.0 {ml} active Albuterol Sulfate (2.5 MG/3M L) 0.083% eCW1 ([facility]) Albuterol 0.83 MG/ML Inhalant Solution Albuterol Sulfa te (2.5 MG/3ML) 0.083% Albuterol Sulfate (2.5 MG/3ML) 0.083% 04/25/2020 12:00:00 AM EDT 3.0 {ml} active Albuterol Sulfate (2.5 MG/3M L) 0.083% eCW1 ([facility]) Albuterol 0.83 MG/ML Inhalant Solution Albuterol Sulfa te (2.5 MG/3ML) 0.083% Albuterol Sulfate (2.5 MG/3ML) 0.083% 04/25/2020 12:00:00 AM EDT 3.0 {ml} active Albuterol Sulfate (2.5 MG/3M L) 0.083% eCW1 ([facility]) Albuterol 0.83 MG/ML Inhalant Solution Albuterol Sulfa te (2.5 MG/3ML) 0.083% Albuterol Sulfate (2.5 MG/3ML) 0.083% 04/25/2020 12:00:00 AM EDT 3.0 {ml} active Albuterol Sulfate (2.5 MG/3M L) 0.083% eCW1 ([facility]) Albuterol 0.83 MG/ML Inhalant Solution Albuterol Sulfa te (2.5 MG/3ML) 0.083% Albuterol Sulfate (2.5 MG/3ML) 0.083% 04/25/2020 12:00:00 AM EDT 3.0 {ml} active Albuterol Sulfate (2.5 MG/3M L) 0.083% eCW1 ([facility]) 0.3 ML Epinephrine 1 MG/ML Auto-Injector [Epipen] EpiP en 2-Hank 0.3 MG/0.3ML EpiPen 2-Hank 0.3 MG/0.3ML 04/23/2020 12:00:00 AM EDT active EpiPen 2-Hank 0.3 MG/0.3ML eCW1 ([facility]) Furosemide 20 MG Oral Tablet Furosemide 20 MG 04/23/2020 12:00:00 AM E DT active Furosemide 20 MG eCW1 ([facility]) Omeprazole 20 MG Delayed Release Oral Capsule Omeprazole 20 MG 04/23/2020 12:00:00 AM EDT active Omeprazo le 20 MG eCW1 ([facility]) 0.3 ML Epinephrine 1 MG/ML Auto-Injector [Epipen] EpiP en 2-Hank 0.3 MG/0.3ML EpiPen 2-Hank 0.3 MG/0.3ML 04/23/2020 12:00:00 AM EDT active EpiPen 2-Hank 0.3 MG/0.3ML eCW1 ([facility]) 0.3 ML Epinephrine 1 MG/ML Auto-Injector [Epipen] EpiP en 2-Hank 0.3 MG/0.3ML EpiPen 2-Hank 0.3 MG/0.3ML 04/23/2020 12:00:00 AM EDT active EpiPen 2-Hank 0.3 MG/0.3ML eCW1 ([facility]) Furosemide 20 MG Oral Tablet Furosemide 20 MG 04/23/2020 12:00:00 AM E DT active Furosemide 20 MG eCW1 ([facility]) Omeprazole 20 MG Delayed Release Oral Capsule Omeprazole 20 MG 04/23/2020 12:00:00 AM EDT active Omeprazo le 20 MG eCW1 ([facility]) tizanidine 4 MG Oral Tablet Tizanidine HCl 4 MG Tizanidine H Cl 4 MG 04/23/2020 12:00:00 AM EDT active Tizanidi ne HCl 4 MG eCW1 ([facility]) Omeprazole 20 MG Delayed Release Oral Capsule Omeprazole 20 MG 04/23/2020 12:00:00 AM EDT active Omeprazo le 20 MG eCW1 ([facility]) Sulfamethoxazole 400 MG / Trimethoprim 8 0 MG Oral Tablet Sulfamethoxazole- Trimethoprim 400-80 MG Sulfamethoxazole-Trimethoprim 400-80 MG 04/23/2020 12:00:00 AM EDT 1.0 {tablet} suspended Sulfamethoxazole-Trimethoprim 400-80 MG eCW1 ([facility]) tizanidine 4 MG Oral Tablet Tizanidine HCl 4 MG Tizanidine H Cl 4 MG 04/23/2020 12:00:00 AM EDT active Tizanidi ne HCl 4 MG eCW1 ([facility]) 0.3 ML Epinephrine 1 MG/ML Auto-Injector [Epipen] EpiP en 2-Hank 0.3 MG/0.3ML EpiPen 2-Hank 0.3 MG/0.3ML 04/23/2020 12:00:00 AM EDT active EpiPen 2-Hank 0.3 MG/0.3ML eCW1 ([facility]) 0.3 ML Epinephrine 1 MG/ML Auto-Injector [Epipen] EpiP en 2-Hank 0.3 MG/0.3ML EpiPen 2-Hank 0.3 MG/0.3ML 04/23/2020 12:00:00 AM EDT active EpiPen 2-Hank 0.3 MG/0.3ML eCW1 ([facility]) Furosemide 20 MG Oral Tablet Furosemide 20 MG 04/23/2020 12:00:00 AM E DT active Furosemide 20 MG eCW1 ([facility]) Omeprazole 20 MG Delayed Release Oral Capsule Omeprazole 20 MG 04/23/2020 12:00:00 AM EDT active Omeprazo le 20 MG eCW1 ([facility]) 0.3 ML Epinephrine 1 MG/ML Auto-Injector [Epipen] EpiP en 2-Hank 0.3 MG/0.3ML EpiPen 2-Hank 0.3 MG/0.3ML 04/23/2020 12:00:00 AM EDT active EpiPen 2-Hank 0.3 MG/0.3ML eCW1 ([facility]) Omeprazole 20 MG Delayed Release Oral Capsule Omeprazole 20 MG 04/23/2020 12:00:00 AM EDT active Omeprazo le 20 MG eCW1 ([facility]) tizanidine 4 MG Oral Tablet Tizanidine HCl 4 MG Tizanidine H Cl 4 MG 04/23/2020 12:00:00 AM EDT active Tizanidi ne HCl 4 MG eCW1 ([facility]) Omeprazole 20 MG Delayed Release Oral Capsule Omeprazole 20 MG 04/23/2020 12:00:00 AM EDT active Omeprazo le 20 MG eCW1 ([facility]) tizanidine 4 MG Oral Tablet Tizanidine HCl 4 MG Tizanidine H Cl 4 MG 04/23/2020 12:00:00 AM EDT active Tizanidi ne HCl 4 MG eCW1 ([facility]) Omeprazole 20 MG Delayed Release Oral Capsule Omeprazole 20 MG 04/23/2020 12:00:00 AM EDT active Omeprazo le 20 MG eCW1 ([facility]) 0.3 ML Epinephrine 1 MG/ML Auto-Injector [Epipen] EpiP en 2-Hank 0.3 MG/0.3ML EpiPen 2-Hank 0.3 MG/0.3ML 04/23/2020 12:00:00 AM EDT active EpiPen 2-Hank 0.3 MG/0.3ML eCW1 ([facility]) tizanidine 4 MG Oral Tablet Tizanidine HCl 4 MG Tizanidine H Cl 4 MG 04/23/2020 12:00:00 AM EDT active Tizanidi ne HCl 4 MG eCW1 ([facility]) 0.3 ML Epinephrine 1 MG/ML Auto-Injector [Epipen] EpiP en 2-Hank 0.3 MG/0.3ML EpiPen 2-Hank 0.3 MG/0.3ML 04/23/2020 12:00:00 AM EDT active EpiPen 2-Hank 0.3 MG/0.3ML eCW1 ([facility]) Furosemide 20 MG Oral Tablet Furosemide 20 MG 04/23/2020 12:00:00 AM E DT active Furosemide 20 MG eCW1 ([facility]) Omeprazole 20 MG Delayed Release Oral Capsule Omeprazole 20 MG 04/23/2020 12:00:00 AM EDT active Omeprazo le 20 MG eCW1 ([facility]) tizanidine 4 MG Oral Tablet Tizanidine HCl 4 MG Tizanidine H Cl 4 MG 04/23/2020 12:00:00 AM EDT active Tizanidi ne HCl 4 MG eCW1 ([facility]) Furosemide 20 MG Oral Tablet Furosemide 20 MG 04/23/2020 12:00:00 AM E DT active Furosemide 20 MG eCW1 ([facility]) 0.3 ML Epinephrine 1 MG/ML Auto-Injector [Epipen] EpiP en 2-Hank 0.3 MG/0.3ML EpiPen 2-Hank 0.3 MG/0.3ML 04/23/2020 12:00:00 AM EDT active EpiPen 2-Hank 0.3 MG/0.3ML eCW1 ([facility]) 0.3 ML Epinephrine 1 MG/ML Auto-Injector [Epipen] EpiP en 2-Hank 0.3 MG/0.3ML EpiPen 2-Hank 0.3 MG/0.3ML 04/23/2020 12:00:00 AM EDT active EpiPen 2-Hank 0.3 MG/0.3ML eCW1 ([facility]) tizanidine 4 MG Oral Tablet Tizanidine HCl 4 MG Tizanidine H Cl 4 MG 04/23/2020 12:00:00 AM EDT active Tizanidi ne HCl 4 MG eCW1 ([facility]) Omeprazole 20 MG Delayed Release Oral Capsule Omeprazole 20 MG 04/23/2020 12:00:00 AM EDT active Omeprazo le 20 MG eCW1 ([facility]) 0.3 ML Epinephrine 1 MG/ML Auto-Injector [Epipen] EpiP en 2-Hank 0.3 MG/0.3ML EpiPen 2-Hank 0.3 MG/0.3ML 04/23/2020 12:00:00 AM EDT active EpiPen 2-Hank 0.3 MG/0.3ML eCW1 ([facility]) tizanidine 4 MG Oral Tablet Tizanidine HCl 4 MG Tizanidine H Cl 4 MG 04/23/2020 12:00:00 AM EDT active Tizanidi ne HCl 4 MG eCW1 ([facility]) Furosemide 20 MG Oral Tablet Furosemide 20 MG 04/23/2020 12:00:00 AM E DT active Furosemide 20 MG eCW1 ([facility]) Furosemide 20 MG Oral Tablet Furosemide 20 MG 04/23/2020 12:00:00 AM E DT active Furosemide 20 MG eCW1 ([facility]) tizanidine 4 MG Oral Tablet Tizanidine HCl 4 MG Tizanidine H Cl 4 MG 04/23/2020 12:00:00 AM EDT active Tizanidi ne HCl 4 MG eCW1 ([facility]) Furosemide 20 MG Oral Tablet Furosemide 20 MG 04/23/2020 12:00:00 AM E DT active Furosemide 20 MG eCW1 ([facility]) 0.3 ML Epinephrine 1 MG/ML Auto-Injector [Epipen] EpiP en 2-Hank 0.3 MG/0.3ML EpiPen 2-Hank 0.3 MG/0.3ML 04/23/2020 12:00:00 AM EDT active EpiPen 2-Hank 0.3 MG/0.3ML eCW1 ([facility]) 0.3 ML Epinephrine 1 MG/ML Auto-Injector [Epipen] EpiP en 2-Hank 0.3 MG/0.3ML EpiPen 2-Hank 0.3 MG/0.3ML 04/23/2020 12:00:00 AM EDT active EpiPen 2-Hank 0.3 MG/0.3ML eCW1 ([facility]) Furosemide 20 MG Oral Tablet Furosemide 20 MG 04/23/2020 12:00:00 AM E DT active Furosemide 20 MG eCW1 ([facility]) Prednisone 10 MG Oral Tablet PredniSONE 10 MG PredniSONE 10 MG 04/23/2020 12:00:00 AM EDT active PredniSO NE 10 MG eCW1 ([facility]) Prednisone 10 MG Oral Tablet PredniSONE 10 MG PredniSONE 10 MG 04/23/2020 12:00:00 AM EDT active PredniSO NE 10 MG eCW1 ([facility]) Furosemide 20 MG Oral Tablet Furosemide 20 MG 04/23/2020 12:00:00 AM E DT active Furosemide 20 MG eCW1 ([facility]) Omeprazole 20 MG Delayed Release Oral Capsule Omeprazole 20 MG 04/23/2020 12:00:00 AM EDT active Omeprazo le 20 MG eCW1 ([facility]) tizanidine 4 MG Oral Tablet Tizanidine HCl 4 MG Tizanidine H Cl 4 MG 04/23/2020 12:00:00 AM EDT active Tizanidi ne HCl 4 MG eCW1 ([facility]) tizanidine 4 MG Oral Tablet Tizanidine HCl 4 MG Tizanidine H Cl 4 MG 04/23/2020 12:00:00 AM EDT active Tizanidi ne HCl 4 MG eCW1 ([facility]) 0.3 ML Epinephrine 1 MG/ML Auto-Injector [Epipen] EpiP en 2-Hank 0.3 MG/0.3ML EpiPen 2-Hank 0.3 MG/0.3ML 04/23/2020 12:00:00 AM EDT active EpiPen 2-Hank 0.3 MG/0.3ML eCW1 ([facility]) tizanidine 4 MG Oral Tablet Tizanidine HCl 4 MG Tizanidine H Cl 4 MG 04/23/2020 12:00:00 AM EDT active Tizanidi ne HCl 4 MG eCW1 ([facility]) 0.3 ML Epinephrine 1 MG/ML Auto-Injector [Epipen] EpiP en 2-Hank 0.3 MG/0.3ML EpiPen 2-Hank 0.3 MG/0.3ML 04/23/2020 12:00:00 AM EDT active EpiPen 2-Hank 0.3 MG/0.3ML eCW1 ([facility]) tizanidine 4 MG Oral Tablet Tizanidine HCl 4 MG Tizanidine H Cl 4 MG 04/23/2020 12:00:00 AM EDT active Tizanidi ne HCl 4 MG eCW1 ([facility]) Furosemide 20 MG Oral Tablet Furosemide 20 MG 04/23/2020 12:00:00 AM E DT active Furosemide 20 MG eCW1 ([facility]) Omeprazole 20 MG Delayed Release Oral Capsule Omeprazole 20 MG 04/23/2020 12:00:00 AM EDT active Omeprazo le 20 MG eCW1 ([facility]) Omeprazole 20 MG Delayed Release Oral Capsule Omeprazole 20 MG 04/23/2020 12:00:00 AM EDT active Omeprazo le 20 MG eCW1 ([facility]) Furosemide 20 MG Oral Tablet Furosemide 20 MG 04/23/2020 12:00:00 AM E DT active Furosemide 20 MG eCW1 ([facility]) Omeprazole 20 MG Delayed Release Oral Capsule Omeprazole 20 MG 04/23/2020 12:00:00 AM EDT active Omeprazo le 20 MG eCW1 ([facility]) Furosemide 20 MG Oral Tablet Furosemide 20 MG 04/23/2020 12:00:00 AM E DT active Furosemide 20 MG eCW1 ([facility]) tizanidine 4 MG Oral Tablet Tizanidine HCl 4 MG Tizanidine H Cl 4 MG 04/23/2020 12:00:00 AM EDT active Tizanidi ne HCl 4 MG eCW1 ([facility]) Omeprazole 20 MG Delayed Release Oral Capsule Omeprazole 20 MG 04/23/2020 12:00:00 AM EDT active Omeprazo le 20 MG eCW1 ([facility]) Sulfamethoxazole 400 MG / Trimethoprim 8 0 MG Oral Tablet Sulfamethoxazole- Trimethoprim 400-80 MG Sulfamethoxazole-Trimethoprim 400-80 MG 04/23/2020 12:00:00 AM EDT 1.0 {tablet} suspended Sulfamethoxazole-Trimethoprim 400-80 MG eCW1 ([facility]) 0.3 ML Epinephrine 1 MG/ML Auto-Injector [Epipen] EpiP en 2-Hank 0.3 MG/0.3ML EpiPen 2-Hank 0.3 MG/0.3ML 04/23/2020 12:00:00 AM EDT active EpiPen 2-Hank 0.3 MG/0.3ML eCW1 ([facility]) Furosemide 20 MG Oral Tablet Furosemide 20 MG 04/23/2020 12:00:00 AM E DT active Furosemide 20 MG eCW1 ([facility]) tizanidine 4 MG Oral Tablet Tizanidine HCl 4 MG Tizanidine H Cl 4 MG 04/23/2020 12:00:00 AM EDT active Tizanidi ne HCl 4 MG eCW1 ([facility]) 0.3 ML Epinephrine 1 MG/ML Auto-Injector [Epipen] EpiP en 2-Hank 0.3 MG/0.3ML EpiPen 2-Hank 0.3 MG/0.3ML 04/23/2020 12:00:00 AM EDT active EpiPen 2-Hank 0.3 MG/0.3ML eCW1 ([facility]) Furosemide 20 MG Oral Tablet Furosemide 20 MG 04/23/2020 12:00:00 AM E DT active Furosemide 20 MG eCW1 ([facility]) tizanidine 4 MG Oral Tablet Tizanidine HCl 4 MG Tizanidine H Cl 4 MG 04/23/2020 12:00:00 AM EDT active Tizanidi ne HCl 4 MG eCW1 ([facility]) tizanidine 4 MG Oral Tablet Tizanidine HCl 4 MG Tizanidine H Cl 4 MG 04/23/2020 12:00:00 AM EDT active Tizanidi ne HCl 4 MG eCW1 ([facility]) tizanidine 4 MG Oral Tablet Tizanidine HCl 4 MG Tizanidine H Cl 4 MG 04/23/2020 12:00:00 AM EDT active Tizanidi ne HCl 4 MG eCW1 ([facility]) Omeprazole 20 MG Delayed Release Oral Capsule Omeprazole 20 MG 04/23/2020 12:00:00 AM EDT active Omeprazo le 20 MG eCW1 ([facility]) 0.3 ML Epinephrine 1 MG/ML Auto-Injector [Epipen] EpiP en 2-Hank 0.3 MG/0.3ML EpiPen 2-Hank 0.3 MG/0.3ML 04/23/2020 12:00:00 AM EDT active EpiPen 2-Hank 0.3 MG/0.3ML eCW1 ([facility]) Furosemide 20 MG Oral Tablet Furosemide 20 MG 04/23/2020 12:00:00 AM E DT active Furosemide 20 MG eCW1 ([facility]) 0.3 ML Epinephrine 1 MG/ML Auto-Injector [Epipen] EpiP en 2-Hank 0.3 MG/0.3ML EpiPen 2-Hank 0.3 MG/0.3ML 04/23/2020 12:00:00 AM EDT active EpiPen 2-Hank 0.3 MG/0.3ML eCW1 ([facility]) Furosemide 20 MG Oral Tablet Furosemide 20 MG 04/23/2020 12:00:00 AM E DT active Furosemide 20 MG eCW1 ([facility]) 0.3 ML Epinephrine 1 MG/ML Auto-Injector [Epipen] EpiP en 2-Hank 0.3 MG/0.3ML EpiPen 2-Hank 0.3 MG/0.3ML 04/23/2020 12:00:00 AM EDT active EpiPen 2-Hank 0.3 MG/0.3ML eCW1 ([facility]) 0.3 ML Epinephrine 1 MG/ML Auto-Injector [Epipen] EpiP en 2-Hank 0.3 MG/0.3ML EpiPen 2-Hank 0.3 MG/0.3ML 04/23/2020 12:00:00 AM EDT active EpiPen 2-Hank 0.3 MG/0.3ML eCW1 ([facility]) Furosemide 20 MG Oral Tablet Furosemide 20 MG 04/23/2020 12:00:00 AM E DT active Furosemide 20 MG eCW1 ([facility]) tizanidine 4 MG Oral Tablet Tizanidine HCl 4 MG Tizanidine H Cl 4 MG 04/23/2020 12:00:00 AM EDT active Tizanidi ne HCl 4 MG eCW1 ([facility]) Omeprazole 20 MG Delayed Release Oral Capsule Omeprazole 20 MG 04/23/2020 12:00:00 AM EDT active Omeprazo le 20 MG eCW1 ([facility]) Furosemide 20 MG Oral Tablet Furosemide 20 MG 04/23/2020 12:00:00 AM E DT active Furosemide 20 MG eCW1 ([facility]) Omeprazole 20 MG Delayed Release Oral Capsule Omeprazole 20 MG 04/23/2020 12:00:00 AM EDT active Omeprazo le 20 MG eCW1 ([facility]) Omeprazole 20 MG Delayed Release Oral Capsule Omeprazole 20 MG 04/23/2020 12:00:00 AM EDT active Omeprazo le 20 MG eCW1 ([facility]) Omeprazole 20 MG Delayed Release Oral Capsule Omeprazole 20 MG 04/23/2020 12:00:00 AM EDT active Omeprazo le 20 MG eCW1 ([facility]) Furosemide 20 MG Oral Tablet Furosemide 20 MG 04/23/2020 12:00:00 AM E DT active Furosemide 20 MG eCW1 ([facility]) Furosemide 20 MG Oral Tablet Furosemide 20 MG 04/23/2020 12:00:00 AM E DT active Furosemide 20 MG eCW1 ([facility]) tizanidine 4 MG Oral Tablet Tizanidine HCl 4 MG Tizanidine H Cl 4 MG 04/23/2020 12:00:00 AM EDT active Tizanidi ne HCl 4 MG eCW1 ([facility]) Omeprazole 20 MG Delayed Release Oral Capsule Omeprazole 20 MG 04/23/2020 12:00:00 AM EDT active Omeprazo le 20 MG eCW1 ([facility]) tizanidine 4 MG Oral Tablet Tizanidine HCl 4 MG Tizanidine H Cl 4 MG 04/23/2020 12:00:00 AM EDT active Tizanidi ne HCl 4 MG eCW1 ([facility]) Omeprazole 20 MG Delayed Release Oral Capsule Omeprazole 20 MG 04/23/2020 12:00:00 AM EDT active Omeprazo le 20 MG eCW1 ([facility]) Lisinopril 2.5 MG Oral Tablet Lisinopril 2.5 MG 04/16/2020 12:00:00 AM EDT 1.0 {tablet} active Lisinopril 2.5 MG eCW1 ([facility]) Lisinopril 2.5 MG Oral Tablet Lisinopril 2.5 MG 04/16/2020 12:00:00 AM EDT 1.0 {tablet} active Lisinopril 2.5 MG eCW1 ([facility]) Lisinopril 2.5 MG Oral Tablet Lisinopril 2.5 MG 04/16/2020 12:00:00 AM EDT 1.0 {tablet} active Lisinopril 2.5 MG eCW1 ([facility]) Lisinopril 2.5 MG Oral Tablet Lisinopril 2.5 MG 04/16/2020 12:00:00 AM EDT 1.0 {tablet} active Lisinopril 2.5 MG eCW1 ([facility]) Lisinopril 2.5 MG Oral Tablet Lisinopril 2.5 MG 04/16/2020 12:00:00 AM EDT 1.0 {tablet} active Lisinopril 2.5 MG eCW1 ([facility]) Lisinopril 2.5 MG Oral Tablet Lisinopril 2.5 MG 04/16/2020 12:00:00 AM EDT 1.0 {tablet} active Lisinopril 2.5 MG eCW1 ([facility]) Lisinopril 2.5 MG Oral Tablet Lisinopril 2.5 MG 04/16/2020 12:00:00 AM EDT 1.0 {tablet} active Lisinopril 2.5 MG eCW1 ([facility]) Lisinopril 2.5 MG Oral Tablet Lisinopril 2.5 MG 04/16/2020 12:00:00 AM EDT 1.0 {tablet} active Lisinopril 2.5 MG eCW1 ([facility]) Lisinopril 2.5 MG Oral Tablet Lisinopril 2.5 MG 04/16/2020 12:00:00 AM EDT 1.0 {tablet} active Lisinopril 2.5 MG eCW1 ([facility]) Lisinopril 2.5 MG Oral Tablet Lisinopril 2.5 MG 04/16/2020 12:00:00 AM EDT 1.0 {tablet} active Lisinopril 2.5 MG eCW1 ([facility]) Lisinopril 2.5 MG Oral Tablet Lisinopril 2.5 MG 04/16/2020 12:00:00 AM EDT 1.0 {tablet} active Lisinopril 2.5 MG eCW1 ([facility]) Lisinopril 2.5 MG Oral Tablet Lisinopril 2.5 MG 04/16/2020 12:00:00 AM EDT 1.0 {tablet} active Lisinopril 2.5 MG eCW1 ([facility]) Lisinopril 2.5 MG Oral Tablet Lisinopril 2.5 MG 04/16/2020 12:00:00 AM EDT 1.0 {tablet} active Lisinopril 2.5 MG eCW1 ([facility]) Lisinopril 2.5 MG Oral Tablet Lisinopril 2.5 MG 04/16/2020 12:00:00 AM EDT 1.0 {tablet} active Lisinopril 2.5 MG eCW1 ([facility]) Lisinopril 2.5 MG Oral Tablet Lisinopril 2.5 MG 04/16/2020 12:00:00 AM EDT 1.0 {tablet} active Lisinopril 2.5 MG eCW1 ([facility]) Lisinopril 2.5 MG Oral Tablet Lisinopril 2.5 MG 04/16/2020 12:00:00 AM EDT 1.0 {tablet} active Lisinopril 2.5 MG eCW1 ([facility]) Lisinopril 2.5 MG Oral Tablet Lisinopril 2.5 MG 04/16/2020 12:00:00 AM EDT 1.0 {tablet} active Lisinopril 2.5 MG eCW1 ([facility]) Lisinopril 2.5 MG Oral Tablet Lisinopril 2.5 MG 04/16/2020 12:00:00 AM EDT 1.0 {tablet} active Lisinopril 2.5 MG eCW1 ([facility]) Lisinopril 2.5 MG Oral Tablet Lisinopril 2.5 MG 04/16/2020 12:00:00 AM EDT 1.0 {tablet} active Lisinopril 2.5 MG eCW1 ([facility]) Lisinopril 2.5 MG Oral Tablet Lisinopril 2.5 MG 04/16/2020 12:00:00 AM EDT 1.0 {tablet} active Lisinopril 2.5 MG eCW1 ([facility]) Lisinopril 2.5 MG Oral Tablet Lisinopril 2.5 MG 04/16/2020 12:00:00 AM EDT 1.0 {tablet} active Lisinopril 2.5 MG eCW1 ([facility]) Lisinopril 2.5 MG Oral Tablet Lisinopril 2.5 MG 04/16/2020 12:00:00 AM EDT 1.0 {tablet} active Lisinopril 2.5 MG eCW1 ([facility]) Lisinopril 2.5 MG Oral Tablet Lisinopril 2.5 MG 04/16/2020 12:00:00 AM EDT 1.0 {tablet} active Lisinopril 2.5 MG eCW1 ([facility]) Acetaminophen 325 MG / Hydrocodone Alexus trate 5 MG Oral Tablet Hydrocodone- Acetaminophen 5-325 MG Hydrocodone-Acetaminophen 5-325 MG 02/26/2020 12:00:00 AM EDT active take 1 tablet eCW 1 ([facility]) Acetaminophen 325 MG / Hydrocodone Alexus trate 5 MG Oral Tablet Hydrocodone- Acetaminophen 5-325 MG Hydrocodone-Acetaminophen 5-325 MG 02/26/2020 12:00:00 AM EDT active take 1 tablet eCW 1 ([facility]) Acetaminophen 325 MG / Hydrocodone Alexus trate 5 MG Oral Tablet Hydrocodone- Acetaminophen 5-325 MG Hydrocodone-Acetaminophen 5-325 MG 02/26/2020 12:00:00 AM EDT suspended Hydrocodone-Ac etaminophen 5-325 MG eCW1 ([facility]) Acetaminophen 325 MG / Hydrocodone Alexus trate 5 MG Oral Tablet Hydrocodone- Acetaminophen 5-325 MG Hydrocodone-Acetaminophen 5-325 MG 02/26/2020 12:00:00 AM EDT suspended Hydrocodone-Ac etaminophen 5-325 MG eCW1 ([facility]) Acetaminophen 325 MG / Hydrocodone Alexus trate 5 MG Oral Tablet Hydrocodone- Acetaminophen 5-325 MG Hydrocodone-Acetaminophen 5-325 MG 02/26/2020 12:00:00 AM EDT suspended Hydrocodone-Ac etaminophen 5-325 MG eCW1 ([facility]) Acetaminophen 325 MG / Hydrocodone Alexus trate 5 MG Oral Tablet Hydrocodone- Acetaminophen 5-325 MG Hydrocodone-Acetaminophen 5-325 MG 02/26/2020 12:00:00 AM EDT suspended take 1 tablet eCW1 ([facility]) Acetaminophen 325 MG / Hydrocodone Alexus trate 5 MG Oral Tablet Hydrocodone- Acetaminophen 5-325 MG Hydrocodone-Acetaminophen 5-325 MG 02/26/2020 12:00:00 AM EDT suspended Hydrocodone-Ac etaminophen 5-325 MG eCW1 ([facility]) Acetaminophen 325 MG / Hydrocodone Alexus trate 5 MG Oral Tablet Hydrocodone- Acetaminophen 5-325 MG Hydrocodone-Acetaminophen 5-325 MG 02/26/2020 12:00:00 AM EDT active take 1 tablet eCW 1 ([facility]) Acetaminophen 325 MG / Hydrocodone Alexus trate 5 MG Oral Tablet Hydrocodone- Acetaminophen 5-325 MG Hydrocodone-Acetaminophen 5-325 MG 01/24/2020 12:00:00 AM EDT active take 1 tablet eCW 1 ([facility]) Acetaminophen 325 MG / Hydrocodone Alexus trate 5 MG Oral Tablet Hydrocodone- Acetaminophen 5-325 MG Hydrocodone-Acetaminophen 5-325 MG 01/24/2020 12:00:00 AM EDT active take 1 tablet eCW 1 ([facility]) Omeprazole 20 MG Delayed Release Oral Capsule Omeprazole 01/21/2020 12:00:00 AM EDT ORAL active MEDENT ([facility], ) Fluticasone Propionate Fluticasone Propionate 01/21/2020 12:00:00 AM E DT active MEDENT ([facility], ) cetirizine hydrochloride 10 MG Oral Tablet Cetirizine HCl 10 MG Cetirizine HCl 10 MG 01/07/2020 12:00:00 AM EDT active 1 tablet eCW1 ([facility]) cetirizine hydrochloride 10 MG Oral Tablet Cetirizine HCl 10 MG Cetirizine HCl 10 MG 01/07/2020 12:00:00 AM EDT 1.0 {tablet} activ e Cetirizine HCl 10 MG eCW1 ([facility]) cetirizine hydrochloride 10 MG Oral Tablet Cetirizine HCl 10 MG Cetirizine HCl 10 MG 01/07/2020 12:00:00 AM EDT 1.0 {tablet} activ e Cetirizine HCl 10 MG eCW1 ([facility]) cetirizine hydrochloride 10 MG Oral Tablet Cetirizine HCl 10 MG Cetirizine HCl 10 MG 01/07/2020 12:00:00 AM EDT 1.0 {tablet} activ e Cetirizine HCl 10 MG eCW1 ([facility]) cetirizine hydrochloride 10 MG Oral Tablet Cetirizine HCl 10 MG Cetirizine HCl 10 MG 01/07/2020 12:00:00 AM EDT 1.0 {tablet} activ e Cetirizine HCl 10 MG eCW1 ([facility]) cetirizine hydrochloride 10 MG Oral Tablet Cetirizine HCl 10 MG Cetirizine HCl 10 MG 01/07/2020 12:00:00 AM EDT 1.0 {tablet} activ e Cetirizine HCl 10 MG eCW1 ([facility]) cetirizine hydrochloride 10 MG Oral Tablet Cetirizine HCl 10 MG Cetirizine HCl 10 MG 01/07/2020 12:00:00 AM EDT 1.0 {tablet} activ e Cetirizine HCl 10 MG eCW1 ([facility]) cetirizine hydrochloride 10 MG Oral Tablet Cetirizine HCl 10 MG Cetirizine HCl 10 MG 01/07/2020 12:00:00 AM EDT 1.0 {tablet} activ e Cetirizine HCl 10 MG eCW1 ([facility]) cetirizine hydrochloride 10 MG Oral Tablet Cetirizine HCl 10 MG Cetirizine HCl 10 MG 01/07/2020 12:00:00 AM EDT 1.0 {tablet} activ e Cetirizine HCl 10 MG eCW1 ([facility]) cetirizine hydrochloride 10 MG Oral Tablet Cetirizine HCl 10 MG Cetirizine HCl 10 MG 01/07/2020 12:00:00 AM EDT 1.0 {tablet} activ e Cetirizine HCl 10 MG eCW1 ([facility]) cetirizine hydrochloride 10 MG Oral Tablet Cetirizine HCl 10 MG Cetirizine HCl 10 MG 01/07/2020 12:00:00 AM EDT 1.0 {tablet} activ e Cetirizine HCl 10 MG eCW1 ([facility]) cetirizine hydrochloride 10 MG Oral Tablet Cetirizine HCl 10 MG Cetirizine HCl 10 MG 01/07/2020 12:00:00 AM EDT 1.0 {tablet} activ e Cetirizine HCl 10 MG eCW1 ([facility]) cetirizine hydrochloride 10 MG Oral Tablet Cetirizine HCl 10 MG Cetirizine HCl 10 MG 01/07/2020 12:00:00 AM EDT 1.0 {tablet} activ e Cetirizine HCl 10 MG eCW1 ([facility]) cetirizine hydrochloride 10 MG Oral Tablet Cetirizine HCl 10 MG Cetirizine HCl 10 MG 01/07/2020 12:00:00 AM EDT 1.0 {tablet} activ e Cetirizine HCl 10 MG eCW1 ([facility]) cetirizine hydrochloride 10 MG Oral Tablet Cetirizine HCl 10 MG Cetirizine HCl 10 MG 01/07/2020 12:00:00 AM EDT active 1 tablet eCW1 ([facility]) cetirizine hydrochloride 10 MG Oral Tablet Cetirizine HCl 10 MG Cetirizine HCl 10 MG 01/07/2020 12:00:00 AM EDT 1.0 {tablet} activ e Cetirizine HCl 10 MG eCW1 ([facility]) cetirizine hydrochloride 10 MG Oral Tablet Cetirizine HCl 10 MG Cetirizine HCl 10 MG 01/07/2020 12:00:00 AM EDT 1.0 {tablet} activ e Cetirizine HCl 10 MG eCW1 ([facility]) cetirizine hydrochloride 10 MG Oral Tablet Cetirizine HCl 10 MG Cetirizine HCl 10 MG 01/07/2020 12:00:00 AM EDT 1.0 {tablet} activ e Cetirizine HCl 10 MG eCW1 ([facility]) cetirizine hydrochloride 10 MG Oral Tablet Cetirizine HCl 10 MG Cetirizine HCl 10 MG 01/07/2020 12:00:00 AM EDT 1.0 {tablet} activ e Cetirizine HCl 10 MG eCW1 ([facility]) cetirizine hydrochloride 10 MG Oral Tablet Cetirizine HCl 10 MG Cetirizine HCl 10 MG 01/07/2020 12:00:00 AM EDT 1.0 {tablet} activ e Cetirizine HCl 10 MG eCW1 ([facility]) cetirizine hydrochloride 10 MG Oral Tablet Cetirizine HCl 10 MG Cetirizine HCl 10 MG 01/07/2020 12:00:00 AM EDT active 1 tablet eCW1 ([facility]) cetirizine hydrochloride 10 MG Oral Tablet Cetirizine HCl 10 MG Cetirizine HCl 10 MG 01/07/2020 12:00:00 AM EDT 1.0 {tablet} activ e Cetirizine HCl 10 MG eCW1 ([facility]) cetirizine hydrochloride 10 MG Oral Tablet Cetirizine HCl 10 MG Cetirizine HCl 10 MG 01/07/2020 12:00:00 AM EDT active 1 tablet eCW1 ([facility]) cetirizine hydrochloride 10 MG Oral Tablet Cetirizine HCl 10 MG Cetirizine HCl 10 MG 01/07/2020 12:00:00 AM EDT 1.0 {tablet} activ e Cetirizine HCl 10 MG eCW1 ([facility]) cetirizine hydrochloride 10 MG Oral Tablet Cetirizine HCl 10 MG Cetirizine HCl 10 MG 01/07/2020 12:00:00 AM EDT 1.0 {tablet} activ e Cetirizine HCl 10 MG eCW1 ([facility]) cetirizine hydrochloride 10 MG Oral Tablet Cetirizine HCl 10 MG Cetirizine HCl 10 MG 01/07/2020 12:00:00 AM EDT active 1 tablet eCW1 ([facility]) cetirizine hydrochloride 10 MG Oral Tablet Cetirizine HCl 10 MG Cetirizine HCl 10 MG 01/07/2020 12:00:00 AM EDT 1.0 {tablet} activ e Cetirizine HCl 10 MG eCW1 ([facility]) cetirizine hydrochloride 10 MG Oral Tablet Cetirizine HCl 10 MG Cetirizine HCl 10 MG 01/07/2020 12:00:00 AM EDT 1.0 {tablet} activ e Cetirizine HCl 10 MG eCW1 ([facility]) cetirizine hydrochloride 10 MG Oral Tablet Cetirizine HCl 10 MG Cetirizine HCl 10 MG 01/07/2020 12:00:00 AM EDT 1.0 {tablet} activ e Cetirizine HCl 10 MG eCW1 ([facility]) cetirizine hydrochloride 10 MG Oral Tablet Cetirizine HCl 10 MG Cetirizine HCl 10 MG 01/07/2020 12:00:00 AM EDT 1.0 {tablet} activ e Cetirizine HCl 10 MG eCW1 ([facility]) Nystatin 100 UNT/MG Topical Powder Nystatin 226724 UNI T/GM Nystatin 392112 UNIT/GM 01/03/2020 12:00:00 AM EST 1.0 {application} active Nystatin 127193 UNIT/GM eCW1 ([facility]) Nystatin 100 UNT/MG Topical Powder Nystatin 229000 UNI T/GM Nystatin 808128 UNIT/GM 01/03/2020 12:00:00 AM EST active 1 application eCW1 ([facility]) Nystatin 100 UNT/MG Topical Powder Nystatin 830177 UNI T/GM Nystatin 048413 UNIT/GM 01/03/2020 12:00:00 AM EST active 1 application eCW1 ([facility]) Nystatin 100 UNT/MG Topical Powder Nystatin 605689 UNI T/GM Nystatin 035675 UNIT/GM 01/03/2020 12:00:00 AM EST 1.0 {application} active Nystatin 959687 UNIT/GM eCW1 ([facility]) Nystatin 100 UNT/MG Topical Powder Nystatin 903254 UNI T/GM Nystatin 456925 UNIT/GM 01/03/2020 12:00:00 AM EST 1.0 {application} active Nystatin 051307 UNIT/GM eCW1 ([facility]) Nystatin 100 UNT/MG Topical Powder Nystatin 969444 UNI T/GM Nystatin 844223 UNIT/GM 01/03/2020 12:00:00 AM EST 1.0 {application} active Nystatin 732611 UNIT/GM eCW1 ([facility]) Nystatin 100 UNT/MG Topical Powder Nystatin 640640 UNI T/GM Nystatin 843921 UNIT/GM 01/03/2020 12:00:00 AM EST 1.0 {application} active Nystatin 481884 UNIT/GM eCW1 ([facility]) Nystatin 100 UNT/MG Topical Powder Nystatin 342543 UNI T/GM Nystatin 834711 UNIT/GM 01/03/2020 12:00:00 AM EST 1.0 {application} active Nystatin 057222 UNIT/GM eCW1 ([facility]) Nystatin 100 UNT/MG Topical Powder Nystatin 316479 UNI T/GM Nystatin 996545 UNIT/GM 01/03/2020 12:00:00 AM EST 1.0 {application} active Nystatin 430653 UNIT/GM eCW1 ([facility]) Nystatin 100 UNT/MG Topical Powder Nystatin 336097 UNI T/GM Nystatin 700129 UNIT/GM 01/03/2020 12:00:00 AM EST 1.0 {application} active Nystatin 816988 UNIT/GM eCW1 ([facility]) Nystatin 100 UNT/MG Topical Powder Nystatin 119878 UNI T/GM Nystatin 115103 UNIT/GM 01/03/2020 12:00:00 AM EST 1.0 {application} active Nystatin 141006 UNIT/GM eCW1 ([facility]) Nystatin 100 UNT/MG Topical Powder Nystatin 622557 UNI T/GM Nystatin 302269 UNIT/GM 01/03/2020 12:00:00 AM EST 1.0 {application} active Nystatin 675645 UNIT/GM eCW1 ([facility]) Nystatin 100 UNT/MG Topical Powder Nystatin 801868 UNI T/GM Nystatin 690250 UNIT/GM 01/03/2020 12:00:00 AM EST active 1 application eCW1 ([facility]) Nystatin 100 UNT/MG Topical Powder Nystatin 781318 UNI T/GM Nystatin 570176 UNIT/GM 01/03/2020 12:00:00 AM EST 1.0 {application} active Nystatin 048939 UNIT/GM eCW1 ([facility]) Nystatin 100 UNT/MG Topical Powder Nystatin 234185 UNI T/GM Nystatin 407792 UNIT/GM 01/03/2020 12:00:00 AM EST 1.0 {application} active Nystatin 420192 UNIT/GM eCW1 ([facility]) Nystatin 100 UNT/MG Topical Powder Nystatin 502013 UNI T/GM Nystatin 383080 UNIT/GM 01/03/2020 12:00:00 AM EST 1.0 {application} active Nystatin 139301 UNIT/GM eCW1 ([facility]) Nystatin 100 UNT/MG Topical Powder Nystatin 774344 UNI T/GM Nystatin 183663 UNIT/GM 01/03/2020 12:00:00 AM EST 1.0 {application} active Nystatin 387044 UNIT/GM eCW1 ([facility]) Nystatin 100 UNT/MG Topical Powder Nystatin 013684 UNI T/GM Nystatin 828565 UNIT/GM 01/03/2020 12:00:00 AM EST 1.0 {application} active Nystatin 161715 UNIT/GM eCW1 ([facility]) Nystatin 100 UNT/MG Topical Powder Nystatin 732421 UNI T/GM Nystatin 483976 UNIT/GM 01/03/2020 12:00:00 AM EST 1.0 {application} active Nystatin 926344 UNIT/GM eCW1 ([facility]) Nystatin 100 UNT/MG Topical Powder Nystatin 373069 UNI T/GM Nystatin 602073 UNIT/GM 01/03/2020 12:00:00 AM EST 1.0 {application} active Nystatin 748883 UNIT/GM eCW1 ([facility]) Nystatin 100 UNT/MG Topical Powder Nystatin 327190 UNI T/GM Nystatin 600027 UNIT/GM 01/03/2020 12:00:00 AM EST 1.0 {application} active Nystatin 361739 UNIT/GM eCW1 ([facility]) Nystatin 100 UNT/MG Topical Powder Nystatin 750602 UNI T/GM Nystatin 974539 UNIT/GM 01/03/2020 12:00:00 AM EST 1.0 {application} active Nystatin 569810 UNIT/GM eCW1 ([facility]) Nystatin 100 UNT/MG Topical Powder Nystatin 535893 UNI T/GM Nystatin 229749 UNIT/GM 01/03/2020 12:00:00 AM EST 1.0 {application} active Nystatin 832502 UNIT/GM eCW1 ([facility]) Nystatin 100 UNT/MG Topical Powder Nystatin 954668 UNI T/GM Nystatin 126108 UNIT/GM 01/03/2020 12:00:00 AM EST active 1 application [email or web address] ([facility]) Nystatin 100 UNT/MG Topical Powder Nystatin 139847 UNI T/GM Nystatin 482526 UNIT/GM 01/03/2020 12:00:00 AM EST 1.0 {application} active Nystatin 059954 UNIT/GM eCW1 ([facility]) Nystatin 100 UNT/MG Topical Powder Nystatin 717682 UNI T/GM Nystatin 138751 UNIT/GM 01/03/2020 12:00:00 AM EST 1.0 {application} active Nystatin 706516 UNIT/GM eCW1 ([facility]) Nystatin 100 UNT/MG Topical Powder Nystatin 019940 UNI T/GM Nystatin 830030 UNIT/GM 01/03/2020 12:00:00 AM EST 1.0 {application} active Nystatin 023331 UNIT/GM eCW1 ([facility]) Nystatin 100 UNT/MG Topical Powder Nystatin 968358 UNI T/GM Nystatin 536512 UNIT/GM 01/03/2020 12:00:00 AM EST 1.0 {application} active Nystatin 181126 UNIT/GM eCW1 ([facility]) Nystatin 100 UNT/MG Topical Powder Nystatin 772113 UNI T/GM Nystatin 990624 UNIT/GM 01/03/2020 12:00:00 AM EST 1.0 {application} active Nystatin 875145 UNIT/GM eCW1 ([facility]) Nystatin 100 UNT/MG Topical Powder Nystatin 797633 UNI T/GM Nystatin [id number] UNIT/GM 01/03/2020 12:00:00 AM EST active 1 application eCW1 ([facility]) Nystatin 100 UNT/MG Topical Powder Nystatin [id number] UNI T/GM Nystatin [id number] UNIT/GM 01/03/2020 12:00:00 AM EST active 1 application eCW1 ([facility]) Acetaminophen 325 MG / Hydrocodone Alexus trate 5 MG Oral Tablet Hydrocodone- Acetaminophen 5-325 MG Hydrocodone-Acetaminophen 5-325 MG 12/03/2019 12:00:00 AM EST active take 1 tablet eCW 1 ([facility]) Acetaminophen 325 MG / Hydrocodone Alexus trate 5 MG Oral Tablet Hydrocodone- Acetaminophen 5-325 MG Hydrocodone-Acetaminophen 5-325 MG 12/03/2019 12:00:00 AM EST active take 1 tablet eCW 1 ([facility]) Acetaminophen 325 MG / Hydrocodone Alexus trate 5 MG Oral Tablet Hydrocodone- Acetaminophen 5-325 MG Hydrocodone-Acetaminophen 5-325 MG 12/03/2019 12:00:00 AM EST active take 1 tablet eCW 1 ([facility]) Acetaminophen 325 MG / Hydrocodone Alexus trate 5 MG Oral Tablet Hydrocodone- Acetaminophen 5-325 MG Hydrocodone-Acetaminophen 5-325 MG 12/03/2019 12:00:00 AM EST active take 1 tablet eCW 1 ([facility]) 30 ACTUAT fluticasone furoate 0.2 MG/ACT UAT / vilanterol 0.025 MG/ACTUAT Dry Powder Inhaler [Breo] Breo Ellipta 11/22/2019 12:00:00 AM EST RESPIRATORY active MED[facility] ([facility], ) Prednisone 10 MG Oral Tablet Prednisone 11/01/2019 12:00:00 AM EST ORAL completed MEDENT ([facility], ) Furosemide 20 MG Oral Tablet Furosemide 11/01/2019 12:00:00 AM EST ORAL active MEDENT ([facility], ) 60 ACTUAT Budesonide 0.16 MG/ACTUAT / fo rmoterol fumarate 0.0045 MG/ACTUAT Metered Dose Inhaler [Symbicort] Symbicort 11/01/2019 12:00:00 AM EST RESPIRATORY completed MEDENT ( [facility], ) Insurance Providers Payer name Policy type / Coverage type Policy ID Covered libertarian ID Covered libertarian's relationship to knott Policy Knott Plan Information [facility] [id number] [place] [id number] [employer] GOLD [id number] SP [id number] MEDICARE [id number] SP [id number] [id number] MEDICARE C [id number] S [id number] P29 [facility] [id number] S [id number] [facility] [id number] 18 [id number] [employer] GOLD PLUS -O/P [id number] 18 [id number] HU[employer]NA MEDICARE O [id number] 18 [id number] [employer] GOLD [id number] SP [id number] 2 MEDICARE [id number] SP [id number] [id number] [employer] G[employer] PLUS -CLINIC [id number] 18 [id number] [employer] GOLD PLUS -PHYSICIAN [id number] [employer] GOLD O [id number] S [id number] [employer] PPO [id number] SP [id number] [employer] PPO [id number] SP [id number] Problems, Conditions, and Diagnoses Code Display Name Description Problem Type Effective Dates Data Source(s) 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 C hemical 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 Problem 12/16/2020 12:00:00 AM EST NETSMART ([facility]) T41.0X5S Adverse effect of inhaled anesthetics, s equela Adverse effect of inhaled anesthetics, sequela Problem 12/16/2020 12:00:00 AM EST NETS MART ([facility]) I25.10 Atherosclerotic heart diseas e of [place] coronary artery without angina pectoris Atherosclerotic heart disease of [place] coronary artery without angina pectoris Problem 12/16/2020 12:00:00 AM EST NETSMART ([facility]) I11.0 Hypertensive heart disease with heart fa ilure Hypertensive heart disease with heart failure Problem 12/16/2020 12:00:00 AM EST NETSMART ([facility]) I50.9 Heart failure, unspecified Heart failure, unspecified Problem 12/16/2020 12:00:00 AM EST NETSMART ([facility] ) I27.20 Pulmonary hypertension, unspecified Pulmonary hy pertension, unspecified Problem 12/16/2020 12:00:00 AM EST NETSMART ([facility]) M54.5 Low back pain Low back pain Problem 12/16/2020 12:00:00 AM EST NETSMART ([facility]) F33.9 Major depressive disorder, recurrent, un specified Major depressive disorder, recurrent, unspecified Problem 12/16/2020 12:00:00 AM EST NETSMART ([facility]) Z99.81 Dependence on supplemental oxygen Dependence on supplemental oxygen Problem 12/16/2020 12:00:00 AM EST NETSMART ([facility]) Z79.84 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 Problem 12/16/2020 12:00:00 AM EST NE TSMART ([facility]) Z79.82 oysterman (current) use of aspirin oysterman (cu rrent) use of aspirin Problem 12/16/2020 12:00:00 AM EST NETSMART ([facility]) Z95.5 Presence of coronary angioplasty implant and graft Presence of coronary angioplasty implant and graft Problem 12/16/2020 12:00:00 AM EST NET SMART ([facility]) Z91.81 History of falling History of falling Problem 12:00:00 AM EST NETSMART ([facility]) Z87.891 Personal history of nicotine dependence Personal history of nicotine dependence Problem 12/16/2020 12:00:00 AM EST NETSMART ([facility]) J44.9 Chronic obstructive pulmonary disease, u nspecified Chronic obstructive pulmonary disease, unspecified Problem 12/16/2020 12:00:00 AM EST NE TSMART ([facility]) J44.9 Chronic obstructive pulmonary disease, u nspecified Chronic obstructive pulmonary disease, unspecified Problem 12/11/2020 12:00:00 AM EST NE TSMART ([facility]) [id number] Allergic rhinitis Allergic rhinitis Problem 09/04/2020 12:00:00 AM EST MEDENT ([facility]) [id number] Patient post percutaneous transluminal c oronary angioplasty Patient post percutaneous transluminal coronary angioplasty Problem 12:00:00 AM EST MEDENT ([facility]) [id number] Essential hypertension Essential hypertension Problem 09/04/2020 12:00:00 AM EST MEDENT ([facility]) [id number] Edema Edema Problem 09/04/2020 12:00:00 AM ES T MEDENT ([facility]) [id number] Low back pain Low back pain Problem 09/04/2020 12:00:00 AM EST MEDENT ([facility]) [id number] Recurrent major depressive episodes Recu rrent major depressive episodes Problem 09/04/2020 12:00:00 AM EST MEDENT ([facility]) [id number] Hyperlipidemia Hyperlipidemia Problem 09/04/2020 12:00: 00 AM EST MEDENT ([facility]) 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 Problem 09/04/2020 12:00:00 AM EST MEDENT ([facility]) M81.8 [id number] Secondary osteoporosis Problem 08/07/2020 12 :00:00 AM EDT eCW1 ([facility]) [id number] Chronic diastolic heart failure Chronic diastoli c heart failure Problem 05/15/2020 12:00:00 AM EDT MEDENT ([facility]) [id number] Mixed hyperlipidemia Mixed hyperlipidemia Problem 05/15/2020 12:00:00 AM EDT MEDENT ([facility]) [id number] 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 Coronary arteriosclerosis in patient wit h history of previous myocardial infarction Problem 05/15/2020 12:00:00 AM EDT ME DENT ([facility]) [id number] Dietary management surveillance Dietary manageme nt surveillance Problem 05/15/2020 12:00:00 AM EDT MEDENT ([facility]) [id number] Obesity Obesity Problem 05/15/2020 12:00:00 AM ED T MEDENT ([facility]) 34177470 Hyperlipidemia Hyperlipidemia Problem 05/15/2020 12:00: 00 AM EDT MEDENT ([facility]) 88916975 Chronic right-sided heart failure Chronic right- sided heart failure Problem 05/15/2020 12:00:00 AM EDT MEDENT ([facility]) 88197667 Essential hypertension Essential hypertension Problem 05/15/2020 12:00:00 AM EDT MEDENT ([facility]) [id number] Patient post percutaneous transluminal c oronary angioplasty Patient post percutaneous transluminal coronary angioplasty Problem 12:00:00 AM EDT MEDENT ([facility]) 5768124 Old myocardial infarction Old myocardial infarction Pr oblem 05/15/2020 12:00:00 AM EDT MEDENT ([facility]) I27.81 [id number] Cor pulmonale Problem 05/05/2020 12:00:00 AM EDT eCW1 ([facility]) Z91.030 [id number] Bee sting allergy Problem 04/09/2020 12:00:0 0 AM EDT eCW1 ([facility]) M48.061 80261145 Lumbar spinal stenosis Problem 03/26/2020 12 :00:00 AM EDT eCW1 ([facility]) M48.061 45336430 Lumbar spinal stenosis Problem 03/26/2020 12 :00:00 AM EDT eCW1 ([facility]) M48.062 [id number] Spinal stenosis of lumbar region with neurogenic claudication Problem 02/20/2020 12:00:00 AM EDT [facility] M48.062 10779510 Spinal stenosis of lumbar region with neurogenic claudication Problem 02/20/2020 12:00:00 AM EDT eCW1 [facility] J30.2 279399654 Seasonal allergies Problem 01/07/2020 12:00: 00 AM EDT eCW1 ([facility]) J30.2 487954313 Seasonal allergies Problem 01/07/2020 12:00: 00 AM EDT eCW1 ([facility]) M79.18 05355018 Myalgia, other site Problem 10/26/2019 12:00 :00 AM EST eCW1 ([facility]) M51.16 [id number] Intervertebral disc disorders with radiculopathy, lumbar region Problem 10/26/2019 12:00:00 AM EST eCW1 ([facility]) M54.40 574657184 Lumbago with sciatica, unspecified side P roblem 10/26/2019 12:00:00 AM EST eCW1 ([facility]) M51.16 [id number] Intervertebral disc disorders with radiculopathy, lumbar region Problem 10/26/2019 12:00:00 AM EST eCW1 ([facility]) M54.40 [id number] Lumbago with sciatica, unspecified side P roblem 10/26/2019 12:00:00 AM EST eCW1 ([facility]) M79.18 70436571 Myalgia, other site Problem 10/26/2019 12:00 :00 AM EST eCW1 ([facility]) I2720 Pulmonary hypertension, unspecified Pulmonary hy pertension, unspecified Diagnosis 11/24/2020 11:03:00 AM EST [facility] I509 Heart failure, unspecified Heart failure, unspecified Diagnosis 11/24/2020 11:03:00 AM [facility] 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 C hemical 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 Diagnosis 11/24/2020 11:03:00 AM [facility] E860 Dehydration Dehydration Diagnosis 11/24/2020 11:03:00 AM [facility] J449 Chronic obstructive pulmonary disease, u nspecified Chronic obstructive pulmonary disease, unspecified Diagnosis 11/24/2020 11:03:00 AM [facility] D509 Iron deficiency anemia, unspecified Iron deficie ncy anemia, unspecified Diagnosis 10/17/2020 01:13:00 PM [facility] Z23 Encounter for immunization Encounter for immunization Diagnosis 09/04/2020 03:10:00 PM [facility] M8580 Other specified disorders of bone densit y and structure, unspecified site Other specified disorders of bone density and structure, unspecified site Diagnosis 09/04/2020 03:10:00 PM [facility] K219 Gastro-esophageal reflux disease without esophagitis Gastro-esophageal reflux disease without esophagitis Diagnosis 09/04/2020 03:10:00 PM [facility] E785 Hyperlipidemia, unspecified Hyperlipidemia, unspecifie d Diagnosis 09/04/2020 03:10:00 PM [facility] F339 Major depressive disorder, recurrent, un specified Major depressive disorder, recurrent, unspecified Diagnosis 09/04/2020 03:10:00 PM [facility] M545 Low back pain Low back pain Diagnosis 09/04/2020 03:10:00 PM [facility] R600 Localized edema Localized edema Diagnosis 09/04/2020 03:1 0:00 PM [facility] E119 Type 2 diabetes mellitus without complic ations Type 2 diabetes mellitus without complications Diagnosis 09/04/2020 03:10:00 PM [facility] I10 Essential (primary) hypertension Essential (primary) h ypertension Diagnosis 09/04/2020 03:10:00 PM [facility] Z955 Presence of coronary angioplasty implant and graft Presence of coronary angioplasty implant and graft Diagnosis 09/04/2020 03:10:00 PM [facility] J309 Allergic rhinitis, unspecified Allergic rhinitis, unsp ecified Diagnosis 09/04/2020 03:10:00 PM [facility] Surgeries/Procedures Procedure Description Date Indications Data Source(s) Brief Emotional/Behav Assessment W/ Scoring Doc Per Standard Inst 09/04/2020 12:00:00 AM EST MEDENT ([facility]) Admin Patient Focused Health Risk Assessment Instrument 09/04/2020 12:00:00 AM EST MEDENT ([facility]) Spirometry 08/27/2020 12:00:00 AM [facility] ) MYOCARDIAL SPECT MULTIPLE STUDIES 06/03/2020 12:00:00 AM EDT [facility] CV STRS TST XERS&/OR RX CONT ECG PHYS SI&R 06/03/2020 12:00:00 AM EDT [facility]) ECG ROUTINE ECG W/LEAST 12 LDS W/I&R 05/15/2020 12:00: 00 AM EDT [facility] Arterial Pressure Waveform Analysis For Assessment Of Centra l Art 05/15/2020 12:00:00 AM EDT [facility] Lumbar/Sacral w/ Imaging 03/26/2020 12:00:00 AM EDT eCW1 ([facility]) ESTABILISHED PATIENT [facility] FACILITY CHARGE 020 12:00:00 AM EDT eCW1 ([facility]) Bronchospasm Evaluation 03/12/2020 12:00:00 AM EDT [facility] Maximum Breathing Capacity, Maximal Voluntary Ventilation 03/12/2020 12:00:00 AM EDT [facility] Plethysmography Determination Lung Volumes & Per Airway Resi st 03/12/2020 12:00:00 AM EDT [facility] ) DIFFUSING CAPACITY 03/12/2020 12:00:00 AM EDT [facility] ) PHYSICIAN TELEPHONE EVALUATION 11-20 MIN 03/11/2020 12 :00:00 AM EDT eCW1 ([facility]) RADXPS IN END [id number] PXD 01/01/2020 12:00:00 AM ES T eCW1 ([facility]) Office Visit, Est Pt., Level 2 FC 12/03/2019 12:00:00 AM EST eCW1 ([facility]) Office Visit, Est Pt., Level 3 PC 12/03/2019 12:00:00 AM EST eCW1 ([facility]) Aerosol Or Vapor Inhalations 11/26/2019 12:00:00 AM ES T MEDENT ([facility], ) Spirometry 11/01/2019 12:00:00 AM EST M EDENT ([facility], ) Aerosol Or Vapor Inhalations 11/01/2019 12:00:00 AM ES T MEDENT ([facility], ) Results ID Date Data Source [id number] 11/17/2020 02:46:00 AM EST [facility] Name Value Range Interpretation Code Description Data Debi rce(s) Supporting Document(s) SARS coronavirus 2 RNA [Presence] in Res piratory specimen by NAV with probe detection NEGATIVE [facility] This lab was ordered by [facility] a nd reported by [facility]. ID Date Data Source [id number] 10/17/2020 01:21:00 PM EST MEDENT ([facility]) Name Value Range Interpretation Code Description Data Debi rce(s) Supporting Document(s) Iron 70 ug/dL 42-135 MEDENT ([facility]) FASTING 12 HOUR~.~.~<DG1.3.1>Z00.01</DG1.3.1><DG1.3.1>I10</DG1.3.1><DG1.3.1>E11.9</DG1.3.1> <DG1.3 Uibc 224 ug/dL 112-347 MEDENT ([facility]) FASTING 12 HOUR~.~.~<DG1.3.1>Z00.01</DG1.3.1><DG1.3.1>I10</DG1.3.1><DG1.3.1>E11.9</DG1.3.1> <DG1.3 Iron Sat 24 % MEDENT ([facility]) FASTING 12 HOUR~.~.~<DG1.3.1>Z00.01</DG1.3.1><DG1.3.1>I10</DG1.3.1><DG1.3.1>E11.9</DG1.3.1> <DG1.3 Tibc 294 ug/dL 250-450 [facility] FASTING 12 HOUR~.~.~<DG1.3.1>Z00.01</DG1.3.1><DG1.3.1>I10</DG1.3.1><DG1.3.1>E11.9</DG1.3.1> <DG1.3 ID Date Data Source [id number] 10/17/2020 01:21:00 PM EST MEDENT ([facility]) Name Value Range Interpretation Code Description Data Debi rce(s) Supporting Document(s) Calcidiol [Mass/volume] in Serum or Plasma 27 ng/mL MEDENT ([facility]) FASTING 12 HOUR~.~.~<DG1.3.1>Z00.01</DG1.3.1><DG1.3.1>I10</DG1.3.1><DG1.3.1>E11.9</DG1.3.1> <DG1.3 Hemoglobin A1c/Hemoglobin.total in Blood 5.8 % 4.4-6.1 [facility] FASTING 12 HOUR~.~.~<DG1.3.1>Z00.01</DG1.3.1><DG1.3.1>I10</DG1.3.1><DG1.3.1>E11.9</DG1.3.1> <DG1.3 Thyrotropin [Units/volume] in Serum or Plasma 3.37 uIU/mL 0.47-5.01 [facility] FASTING 12 HOUR~.~.~<DG1.3.1>Z00.01</DG1.3.1><DG1.3.1>I10</DG1.3.1><DG1.3.1>E11.9</DG1.3.1> <DG1.3 Thyroxine (T4) free [Mass/volume] in Serum or Plasma 1.28 ng/dL 0.93- 1.70 MED[facility] ([facility]) FASTING 12 HOUR~.~.~<DG1.3.1>Z00.01</DG1.3.1><DG1.3.1>I10</DG1.3.1><DG1.3.1>E11.9</DG1.3.1> <DG1.3 ID Date Data Source [id number] 10/17/2020 01:21:00 PM EST MEDENT ([facility]) Name Value Range Interpretation Code Description Data Debi rce(s) Supporting Document(s) Cholesterol 115 mg/dL 131-200 Below low normal MED[facility] ([facility]) FASTING 12 HOUR~.~.~<DG1.3.1>Z00.01</DG1.3.1><DG1.3.1>I10</DG1.3.1><DG1.3.1>E11.9</DG1.3.1> <DG1.3 Cve Panel Laboratory test result [facility] ([facility]) FASTING 12 HOUR~.~.~<DG1.3.1>Z00.01</DG1.3.1><DG1.3.1>I10</DG1.3.1><DG1.3.1>E11.9</DG1.3.1> <DG1.3 LDL 59 mg/dL 65-175 Below low normal MED[facility] ([facility]) FASTING 12 HOUR~.~.~<DG1.3.1>Z00.01</DG1.3.1><DG1.3.1>I10</DG1.3.1><DG1.3.1>E11.9</DG1.3.1> <DG1.3 Triglycerides 183 mg/dL 35-160 Above high normal MEDE NT ([facility]) FASTING 12 HOUR~.~.~<DG1.3.1>Z00.01</DG1.3.1><DG1.3.1>I10</DG1.3.1><DG1.3.1>E11.9</DG1.3.1> <DG1.3 HDL 30 mg/dL 29-86 [facility]) FASTING 12 HOUR~.~.~<DG1.3.1>Z00.01</DG1.3.1><DG1.3.1>I10</DG1.3.1><DG1.3.1>E11.9</DG1.3.1> <DG1.3 LDL/HDL 1.97 1.47-3.22 [facility]) FASTING 12 HOUR~.~.~<DG1.3.1>Z00.01</DG1.3.1><DG1.3.1>I10</DG1.3.1><DG1.3.1>E11.9</DG1.3.1> <DG1.3 Risk Factor 3.8 3.2-4.4 [facility]) FASTING 12 HOUR~.~.~<DG1.3.1>Z00.01</DG1.3.1><DG1.3.1>I10</DG1.3.1><DG1.3.1>E11.9</DG1.3.1> <DG1.3 ID Date Data Source [id number] 10/17/2020 01:21:00 PM EST MEDENT ([facility]) Name Value Range Interpretation Code Description Data Debi rce(s) Supporting Document(s) Comprehensive [employer] Laboratory test result [facility]) FASTING 12 HOUR~.~.~<DG1.3.1>Z00.01</DG1.3.1><DG1.3.1>I10</DG1.3.1><DG1.3.1>E11.9</DG1.3.1> <DG1.3 Potassium 4.1 meq/L 3.6-5.0 [facility] FASTING 12 [facility] FASTING 12 HOUR~.~.~<DG1.3.1>Z00.01</DG1.3.1><DG1.3.1>I10</DG1.3.1><DG1.3.1>E11.9</DG1.3.1> <DG1.3 Creatinine 1.2 mg/dL 0.7-1.5 MEDENT ([facility]) FASTING 12 HOUR~.~.~<DG1.3.1>Z00.01</DG1.3.1><DG1.3.1>I10</DG1.3.1><DG1.3.1>E11.9</DG1.3.1> <DG1.3 BUN/Creat 18 8-27 [facility]) FASTING 12 HOUR~.~.~<DG1.3.1>Z00.01</DG1.3.1><DG1.3.1>I10</DG1.3.1><DG1.3.1>E11.9</DG1.3.1> <DG1.3 BUN 22 mg/dL 7-21 Above high normal MEDENT ([facility]) FASTING 12 HOUR~.~.~<DG1.3.1>Z00.01</DG1.3.1><DG1.3.1>I10</DG1.3.1><DG1.3.1>E11.9</DG1.3.1> <DG1.3 Albumin 4.3 g/dL 3.9-5.0 [facility] ([facility]) FASTING 12 HOUR~.~.~<DG1.3.1>Z00.01</DG1.3.1><DG1.3.1>I10</DG1.3.1><DG1.3.1>E11.9</DG1.3.1> <DG1.3 Total Protein 6.5 g/dL 6.3-8.2 [facility] ([facility]) FASTING 12 HOUR~.~.~<DG1.3.1>Z00.01</DG1.3.1><DG1.3.1>I10</DG1.3.1><DG1.3.1>E11.9</DG1.3.1> <DG1.3 Calcium 9.7 mg/dL 8.4-10.2 [facility]) FASTING 12 HOUR~.~.~<DG1.3.1>Z00.01</DG1.3.1><DG1.3.1>I10</DG1.3.1><DG1.3.1>E11.9</DG1.3.1> <DG1.3 A/G Ratio 2.0 0.8-2.0 [facility] ([facility]) FASTING 12 HOUR~.~.~<DG1.3.1>Z00.01</DG1.3.1><DG1.3.1>I10</DG1.3.1><DG1.3.1>E11.9</DG1.3.1> <DG1.3 Globulin 2.2 GM/DL 2.4-3.2 Below low normal MED[facility] ( [facility]) FASTING 12 HOUR~.~.~<DG1.3.1>Z00.01</DG1.3.1><DG1.3.1>I10</DG1.3.1><DG1.3.1>E11.9</DG1.3.1> <DG1.3 Sgot/Ast 20 U/L 5-40 [facility] ([facility]) FASTING 12 HOUR~.~.~<DG1.3.1>Z00.01</DG1.3.1><DG1.3.1>I10</DG1.3.1><DG1.3.1>E11.9</DG1.3.1> <DG1.3 Alkaline Phos 139 U/L 38-126 Above high normal MEDE NT ([facility]) FASTING 12 HOUR~.~.~<DG1.3.1>Z00.01</DG1.3.1><DG1.3.1>I10</DG1.3.1><DG1.3.1>E11.9</DG1.3.1> <DG1.3 Total Bili Laboratory test result 0.2-1.3 ME DENT ([facility]) FASTING 12 HOUR~.~.~<DG1.3.1>Z00.01</DG1.3.1><DG1.3.1>I10</DG1.3.1><DG1.3.1>E11.9</DG1.3.1> <DG1.3 Anion Gap 13.0 mmol/L 8.0-16.0 [facility] ([facility]) FASTING 12 HOUR~.~.~<DG1.3.1>Z00.01</DG1.3.1><DG1.3.1>I10</DG1.3.1><DG1.3.1>E11.9</DG1.3.1> <DG1.3 Age 70 yrs MED[facility] ([facility]) FASTING 12 HOUR~.~.~<DG1.3.1>Z00.01</DG1.3.1><DG1.3.1>I10</DG1.3.1><DG1.3.1>E11.9</DG1.3.1> <DG1.3 SGPT/Alt 25 U/L 7-56 [facility] ([facility]) FASTING 12 HOUR~.~.~<DG1.3.1>Z00.01</DG1.3.1><DG1.3.1>I10</DG1.3.1><DG1.3.1>E11.9</DG1.3.1> <DG1.3 Non-Aa GFR 47 mL/min [facility] ([facility]) FASTING 12 HOUR~.~.~<DG1.3.1>Z00.01</DG1.3.1><DG1.3.1>I10</DG1.3.1><DG1.3.1>E11.9</DG1.3.1> <DG1.3 Afr Amer GFR Laboratory test result [facility] ([facility]) FASTING 12 HOUR~.~.~<DG1.3.1>Z00.01</DG1.3.1><DG1.3.1>I10</DG1.3.1><DG1.3.1>E11.9</DG1.3.1> <DG1.3 ID Date Data Source [id number] 10/17/2020 01:21:00 PM EST [facility] ([facility]) Name Value Range Interpretation Code Description Data Debi rce(s) Supporting Document(s) Urinalysis Laboratory test result [facility] ([facility]) FASTING 12 HOUR~.~.~<DG1.3.1>Z00.01</DG1.3.1><DG1.3.1>I10</DG1.3.1><DG1.3.1>E11.9</DG1.3.1> <DG1.3 Source Laboratory test result [facility] ([facility]) FASTING 12 HOUR~.~.~<DG1.3.1>Z00.01</DG1.3.1><DG1.3.1>I10</DG1.3.1><DG1.3.1>E11.9</DG1.3.1> <DG1.3 Color Laboratory test result [facility] ([facility]) FASTING 12 HOUR~.~.~<DG1.3.1>Z00.01</DG1.3.1><DG1.3.1>I10</DG1.3.1><DG1.3.1>E11.9</DG1.3.1> <DG1.3 Spec [place] 1.015 1.001-1.030 [facility] ([facility]) FASTING 12 HOUR~.~.~<DG1.3.1>Z00.01</DG1.3.1><DG1.3.1>I10</DG1.3.1><DG1.3.1>E11.9</DG1.3.1> <DG1.3 Clarity Laboratory test result [facility] ([facility]) FASTING 12 HOUR~.~.~<DG1.3.1>Z00.01</DG1.3.1><DG1.3.1>I10</DG1.3.1><DG1.3.1>E11.9</DG1.3.1> <DG1.3 pH 5 5-9 [facility] ([facility]) FASTING 12 HOUR~.~.~<DG1.3.1>Z00.01</DG1.3.1><DG1.3.1>I10</DG1.3.1><DG1.3.1>E11.9</DG1.3.1> <DG1.3 Glucose Laboratory test result [facility] ([facility]) FASTING 12 HOUR~.~.~<DG1.3.1>Z00.01</DG1.3.1><DG1.3.1>I10</DG1.3.1><DG1.3.1>E11.9</DG1.3.1> <DG1.3 Bilirubin Laboratory test result [facility] ([facility]) FASTING 12 HOUR~.~.~<DG1.3.1>Z00.01</DG1.3.1><DG1.3.1>I10</DG1.3.1><DG1.3.1>E11.9</DG1.3.1> <DG1.3 Ketone Laboratory test result [facility] ([facility]) FASTING 12 HOUR~.~.~<DG1.3.1>Z00.01</DG1.3.1><DG1.3.1>I10</DG1.3.1><DG1.3.1>E11.9</DG1.3.1> <DG1.3 Nitrite Laboratory test result [facility]) FASTING 12 HOUR~.~.~<DG1.3.1>Z00.01</DG1.3.1><DG1.3.1>I10</DG1.3.1><DG1.3.1>E11.9</DG1.3.1> <DG1.3 Protein Laboratory test result [facility]) FASTING 12 HOUR~.~.~<DG1.3.1>Z00.01</DG1.3.1><DG1.3.1>I10</DG1.3.1><DG1.3.1>E11.9</DG1.3.1> <DG1.3 Blood Laboratory test result [facility]) FASTING 12 HOUR~.~.~<DG1.3.1>Z00.01</DG1.3.1><DG1.3.1>I10</DG1.3.1><DG1.3.1>E11.9</DG1.3.1> <DG1.3 Urobilinogen Laboratory [facility] FASTING 12 HOUR~.~.~<DG1.3.1>Z00.01</DG1.3.1><DG1.3.1>I10</DG1.3.1><DG1.3.1>E11.9</DG1.3.1> <DG1.3 Leuk Est Laboratory test result [facility] FASTING 12 HOUR~.~.~<DG1.3.1>Z00.01</DG1.3.1><DG1.3.1>I10</DG1.3.1><DG1.3.1>E11.9</DG1.3.1> <DG1.3 Microscopic Laboratory test result [facility] FASTING 12 HOUR~.~.~<DG1.3.1>Z00.01</DG1.3.1><DG1.3.1>I10</DG1.3.1><DG1.3.1>E11.9</DG1.3.1> <DG1.3 ID Date Data Source [id number] 10/17/2020 01:21:00 PM EST [facility] ([facility]) Name Value Range Interpretation Code Description Data Debi rce(s) Supporting Document(s) CBC W/Automated Diff Laboratory test result [facility]) FASTING 12 HOUR~.~.~<DG1.3.1>Z00.01</DG1.3.1><DG1.3.1>I10</DG1.3.1><DG1.3.1>E11.9</DG1.3.1> <DG1.3 RBC 4.75 10^6/uL 4.20-5.40 [facility] ([facility]) FASTING 12 HOUR~.~.~<DG1.3.1>Z00.01</DG1.3.1><DG1.3.1>I10</DG1.3.1><DG1.3.1>E11.9</DG1.3.1> <DG1.3 WBC 12.6 10^3/uL 4.2-11.0 Above high normal [facility] ([facility]) FASTING 12 HOUR~.~.~<DG1.3.1>Z00.01</DG1.3.1><DG1.3.1>I10</DG1.3.1><DG1.3.1>E11.9</DG1.3.1> <DG1.3 Hematocrit 40.5 % 37.0-47.0 [facility] ([facility]) FASTING 12 HOUR~.~.~<DG1.3.1>Z00.01</DG1.3.1><DG1.3.1>I10</DG1.3.1><DG1.3.1>E11.9</DG1.3.1> <DG1.3 Hemoglobin 12.6 g/dL 12.0-16.0 [facility] ([facility]) FASTING 12 HOUR~.~.~<DG1.3.1>Z00.01</DG1.3.1><DG1.3.1>I10</DG1.3.1><DG1.3.1>E11.9</DG1.3.1> <DG1.3 MCV 85.3 fL 81.0-101 [facility] ([facility]) FASTING 12 HOUR~.~.~<DG1.3.1>Z00.01</DG1.3.1><DG1.3.1>I10</DG1.3.1><DG1.3.1>E11.9</DG1.3.1> <DG1.3 MCH 26.5 pg 27.0-34.0 Below low normal [facility] ( [facility]) FASTING 12 HOUR~.~.~<DG1.3.1>Z00.01</DG1.3.1><DG1.3.1>I10</DG1.3.1><DG1.3.1>E11.9</DG1.3.1> <DG1.3 MCHC 31.1 g/dL 31.0-36.0 [facility] ([facility]) FASTING 12 HOUR~.~.~<DG1.3.1>Z00.01</DG1.3.1><DG1.3.1>I10</DG1.3.1><DG1.3.1>E11.9</DG1.3.1> <DG1.3 RDW 17.6 % 11.5-14.5 Above high normal [facility] ([facility]) FASTING 12 HOUR~.~.~<DG1.3.1>Z00.01</DG1.3.1><DG1.3.1>I10</DG1.3.1><DG1.3.1>E11.9</DG1.3.1> <DG1.3 Neut 79.8 % 37.0-80.0 [facility] ([facility]) FASTING 12 HOUR~.~.~<DG1.3.1>Z00.01</DG1.3.1><DG1.3.1>I10</DG1.3.1><DG1.3.1>E11.9</DG1.3.1> <DG1.3 MPV 10.2 fL 7.4-10.4 [facility] ([facility]) FASTING 12 HOUR~.~.~<DG1.3.1>Z00.01</DG1.3.1><DG1.3.1>I10</DG1.3.1><DG1.3.1>E11.9</DG1.3.1> <DG1.3 Platelets 326 10^3/uL 150-450 [facility] ([facility]) FASTING 12 HOUR~.~.~<DG1.3.1>Z00.01</DG1.3.1><DG1.3.1>I10</DG1.3.1><DG1.3.1>E11.9</DG1.3.1> <DG1.3 Lymph 10.5 % 25.0-40.0 Below low normal [facility] ( [facility]) FASTING 12 HOUR~.~.~<DG1.3.1>Z00.01</DG1.3.1><DG1.3.1>I10</DG1.3.1><DG1.3.1>E11.9</DG1.3.1> <DG1.3 Kimball 6.3 % 3.0-8.0 [facility] ([facility]) FASTING 12 HOUR~.~.~<DG1.3.1>Z00.01</DG1.3.1><DG1.3.1>I10</DG1.3.1><DG1.3.1>E11.9</DG1.3.1> <DG1.3 %Ig 0.5 % 0.0-0.0 Above high normal [facility] ([facility]) FASTING 12 HOUR~.~.~<DG1.3.1>Z00.01</DG1.3.1><DG1.3.1>I10</DG1.3.1><DG1.3.1>E11.9</DG1.3.1> <DG1.3 Eos 2.2 % 0.0-7.0 [facility] ([facility]) FASTING 12 HOUR~.~.~<DG1.3.1>Z00.01</DG1.3.1><DG1.3.1>I10</DG1.3.1><DG1.3.1>E11.9</DG1.3.1> <DG1.3 Baso 0.7 % 0.0-2.5 [facility] ([facility]) FASTING 12 HOUR~.~.~<DG1.3.1>Z00.01</DG1.3.1><DG1.3.1>I10</DG1.3.1><DG1.3.1>E11.9</DG1.3.1> <DG1.3 #Lymph 1.33 10^3/uL 0.60-3.40 [facility] ([facility]) FASTING 12 HOUR~.~.~<DG1.3.1>Z00.01</DG1.3.1><DG1.3.1>I10</DG1.3.1><DG1.3.1>E11.9</DG1.3.1> <DG1.3 #Neut 10.06 10^3/uL 2.00-6.90 Above high normal [facility] ([facility]) FASTING 12 HOUR~.~.~<DG1.3.1>Z00.01</DG1.3.1><DG1.3.1>I10</DG1.3.1><DG1.3.1>E11.9</DG1.3.1> <DG1.3 %NRBC 0.0 % 0.0-0.0 [facility] FASTING 12 HOUR~.~.~<DG1.3.1>Z00.01</DG1.3.1><DG1.3.1>I10</DG1.3.1><DG1.3.1>E11.9</DG1.3.1> <DG1.3 #Kimball 0.80 10^3/uL 0.00-0.90 [facility] FASTING 12 HOUR~.~.~<DG1.3.1>Z00.01</DG1.3.1><DG1.3.1>I10</DG1.3.1><DG1.3.1>E11.9</DG1.3.1> <DG1.3 #Eos 0.28 10^3/uL 0.00-0.70 [facility] ([facility]) FASTING 12 HOUR~.~.~<DG1.3.1>Z00.01</DG1.3.1><DG1.3.1>I10</DG1.3.1><DG1.3.1>E11.9</DG1.3.1> <DG1.3 #Baso 0.09 10^3/uL 0.00-0.20 [facility]) FASTING 12 HOUR~.~.~<DG1.3.1>Z00.01</DG1.3.1><DG1.3.1>I10</DG1.3.1><DG1.3.1>E11.9</DG1.3.1> <DG1.3 #NRBC 0.00 10^3/uL 0.00-0.00 [facility] ([facility]) FASTING 12 HOUR~.~.~<DG1.3.1>Z00.01</DG1.3.1><DG1.3.1>I10</DG1.3.1><DG1.3.1>E11.9</DG1.3.1> <DG1.3 #Ig 0.06 10^3/uL 0.00-0.10 [facility] ([facility]) FASTING 12 HOUR~.~.~<DG1.3.1>Z00.01</DG1.3.1><DG1.3.1>I10</DG1.3.1><DG1.3.1>E11.9</DG1.3.1> <DG1.3 RBC Morph Laboratory test result [facility] ([facility]) FASTING 12 HOUR~.~.~<DG1.3.1>Z00.01</DG1.3.1><DG1.3.1>I10</DG1.3.1><DG1.3.1>E11.9</DG1.3.1> <DG1.3 Manual Diff [facility]~.~.~<DG1.3.1>Z00.01</DG1.3.1><DG1.3.1>I10</DG1.3.1><DG1.3.1>E11.9</DG1.3.1> <DG1.3 ID Date Data Source [id number] 10/21/2020 09:06:00 AM [facility] Name Value Range Interpretation Code Description Data Debi rce(s) Supporting Document(s) Iron [Mass/volume] in Serum or Plasma 70 UG/DL 42 - 135 [facility] Iron binding capacity.unsaturated [Mass/volume] in Serum or Plasma 224 UG/DL 112 - 347 [facility] Iron binding capacity [Mass/volume] in Serum or Plasma 294 ug/dL 250 - 450 [facility] Iron saturation [Mass Fraction] in Serum or Plasma 24 % [facility] ID Date Data Source [id number] 10/17/2020 02:46:00 PM [facility] Name Value Range Interpretation Code Description Data Debi rce(s) Supporting Document(s) Thyroxine (T4) free index in Serum or Plasma by calculation 1.28 NG/DL 0.93 - 1.70 [facility] ID Date Data Source [id number] 10/17/2020 02:46:00 PM [facility] Name Value Range Interpretation Code Description Data Debi rce(s) Supporting Document(s) Thyrotropin [Units/volume] in Serum or Plasma by Detec tion limit <= 0.05 mIU/L 3.37 uIU/mL 0.47 - 5.01 [facility] ID Date Data Source [id number] 10/17/2020 02:46:00 PM [facility] Name Value Range Interpretation Code Description Data Debi rce(s) Supporting Document(s) Calcidiol [Moles/volume] in Serum or Plasma 27 NG/ML [facility] VITAMIN-D(2 5HYDROXY) Deficiency: <=20 ng/ml Insufficiency: 21-29 ng/ml Preferred level: => 30 ng/ml ID Date Data Source [id number] 10/17/2020 02:26:00 PM [facility] Name Value Range Interpretation Code Description Data Debi rce(s) Supporting Document(s) Hemoglobin A1c/Hemoglobin.total in Blood 5.8 % 4.4 - 6.1 [facility] {A1]{HB] ID Date Data Source [id number] 10/17/2020 02:18:00 PM EST [facility] Name Value Range Interpretation Code Description Data Debi rce(s) Supporting Document(s) CVE PANEL [facility] al LIPID PANEL Cholesterol [Mass/volume] in Serum or Plasma 115 MG/DL 131 - 200 L [facility] Deprecated Triglyceride [Mass/volume] in Serum or Plasma 183 MG/DL 3 5 - 160 H [facility] HDL 30 MG/DL 29 - 86 [facility] al Cholesterol in LDL [Mass/volume] in Serum or Plasma by Direc t assay 59 mg/dL 65 - 175 L [facility] Cholesterol.total/Cholesterol in HDL [Mass Ratio] in Serum o r Plasma 3.8 3.2 - 4.4 [facility] LDL/HDL 1.97 1.47 - 3.22 [facility] ital CVE RISK CHOL/HDL LDL/HDLMEN: 1/2 AVERAGE 3.43 1.00 AVERAGE 4.97 3.55 2X AVERAGE 9.55 6.25 3X AVERAGE 23.99 7.99WOMEN: 1/2 AVERAGE 3.27 1.47 AVERAGE 4.44 3.22 2X AVERAGE 7.05 5.03 3X AVERAGE 11.04 6.14 ID Date Data Source [id number] 10/17/2020 02:18:00 PM EST [facility] Name Value Range Interpretation Code Description Data Debi rce(s) Supporting Document(s) COMPREHENSIVE METABOLIC PANEL [facility] COMPREHENSIVE METABOLIC PANEL Sodium [Moles/volume] in Serum or Plasma 142 mEq/L 134 - 153 [facility] Potassium [Moles/volume] in Serum or Plasma 4.1 mEq/L 3.6 - 5.0 [facility] Chloride [Moles/volume] in Serum or Plasma 103 mEq/L 98 - 107 [facility] Carbon dioxide, total [Moles/volume] in Serum or Plasma 26 MEQ/L 22 - 30 [facility] Glucose [Mass/volume] in Serum or Plasma 70 MG/DL 65 - 110 [facility] BUN 22 MG/DL 7 - 21 H [facility] al Creatinine [Mass/volume] in Serum or Plasma 1.2 MG/DL 0.7 - 1.5 [facility] BUN/CREAT 18 8 - 27 [facility] al Protein [Mass/volume] in Serum or Plasma 6.5 G/DL 6.3 - 8.2 [facility] Albumin [Mass/volume] in Serum or Plasma 4.3 G/DL 3.9 - 5.0 [facility] Globulin [Mass/volume] in Serum by calculation 2.2 GM/DL 2.4 - 3.2 L [facility] A/G RATIO 2.0 0.8 - 2.[address] [facility] Calcium [Mass/volume] in Serum or Plasma 9.7 MG/DL 8.4 - 10.2 [facility] Bilirubin.total [Mass/volume] in Serum or Plasma <0.7 MG/DL 0.2 - 1.3 [facility] Alkaline phosphatase [Enzymatic activity/volume] in Serum or Plasma 139 U/L 38 - 126 H [facility] Aspartate aminotransferase [Enzymatic activity/volume] in Serum or Plasma 20 U/L 5 - 40 [facility] Alanine aminotransferase [Enzymatic activity/volume] in Seru m or Plasma 25 U/L 7 - 56 [facility] Anion gap 3 in Serum or Plasma 13.0 mmol/L 8.0 - 16.0 [facility] AGE [address] [facility] NON-AA GFR 47 mL/min [facility] AFR AMER GFR >60 [facility] Male GFR In terprentation [...] >32 mL/min Normal ID Date Data Source [id number] 10/17/2020 01:55:00 PM EST [facility] Name Value Range Interpretation Code Description Data Debi rce(s) Supporting Document(s) [facility]IS [facility] yellow NORMAL: Yellow [facility] ospital CLARITY clear NORMAL: Clear [facility] spital Specific gravity of Urine by Test strip 1.015 1.001 - 1.030 [facility] pH 5 5 - 9 [facility] Glucose [Mass/volume] in Urine by Test strip NORM NORMAL: Negat [facility] Bilirubin.total [Presence] in Urine by Test strip NEG NORMAL: Negative [facility] Ketones [Presence] in Urine by Test strip NEG NORMAL: Negative [facility] Protein [Mass/volume] in Urine by Test strip NEG NORMAL: Negat [facility] Nitrite [Presence] in Urine by Test strip NEG NORMAL: Negative [facility] BLOOD NEG NORMAL: Negative [facility] Leukocyte esterase [Presence] in Urine by Test strip NEG RAMOS L: Negative [facility] Urobilinogen [Mass/volume] in Urine by Test strip NOR less diego n 1.0 mg/dL [facility] MICROSCOPIC Not Indicate [facility] ID Date Data Source [id number] 10/17/2020 01:49:00 PM EST [facility] Name Value Range Interpretation Code Description Data Debi rce(s) Supporting Document(s) CBC W/AUTOMATED DIFF [facility] COMPLETE BLOOD COUNT Leukocytes [#/volume] in Blood by Automated count 12.6 10^3/uL 4.2 - 11.0 H [facility] Erythrocytes [#/volume] in Blood by Automated count 4.75 10^6/uL 4. 20 - 5.40 [facility] Hemoglobin [Mass/volume] in Blood 12.6 g/dL 12.0 - 16.0 [facility] Hematocrit [Volume Fraction] of Blood by Automated count 40.5 % 3 7.0 - 47.0 [facility] Erythrocyte mean corpuscular volume [Entitic volume] by Auto mated count 85.3 fL 81.0 - 101 [facility] Erythrocyte mean corpuscular hemoglobin [Entitic mass] by Automated count 26.5 pg 27.0 - 34.0 L [facility] Erythrocyte mean corpuscular hemoglobin concentration [Mass/volume] by Automated count 31.1 g/dL 31.0 - 36.0 [facility] Erythrocyte distribution width [Ratio] by Automated count 17.6 % 11.5 - 14.5 H [facility] Platelets [#/volume] in Blood by Automated count 326 10^3/uL 150 - 45 0 [facility] Platelet mean volume [Entitic volume] in Blood by Automated count 10.2 fL 7.4 - 10.4 [facility] Neutrophils/100 leukocytes in Blood by Automated count 79.8 % 37. 0 - 80.0 [facility] Lymphocytes/100 leukocytes in Blood by Manual count 10.5 % 25.0 - 40.0 L [facility] Monocytes/100 leukocytes in Blood by Automated count 6.3 % 3.0 - 8.0 [facility] Eosinophils/100 leukocytes in Blood by Automated count 2.2 % 0.0 - 7.0 [facility] Basophils/100 leukocytes in Blood by Automated count 0.7 % 0.0 - 2.5 [facility] %IG 0.5 % 0.0 - 0.0 [facility] %NRBC 0.0 % 0.0 - 0.0 [facility] al Neutrophils [#/volume] in Blood by Automated count 10.06 10^3/uL 2. 00 - 6.90 H [facility] Lymphocytes [#/volume] in Blood by Automated count 1.33 10^3/uL 0.60 - 3.40 [facility] Monocytes [#/volume] in Blood by Automated count 0.80 10^3/uL 0.00 - 0.90 [facility] Eosinophils [#/volume] in Blood by Automated count 0.28 10^3/uL 0.00 - 0.70 [facility] Basophils [#/volume] in Blood by Automated count 0.09 10^3/uL 0.00 - 0.20 [facility] #IG 0.06 10^3/uL 0.00 - 0.10 [facility] ospital #NRBC 0.00 10^3/uL 0.00 - 0.00 [facility] MANUAL DIFF NOT INDICATED [facility] RBC MORPH NOT INDICATED [facility] sp[facility] ID Date Data Source [id number] 09/16/2020 08:49:00 AM EST [facility] Name Value Range Interpretation Code Description Data Debi rce(s) Supporting Document(s) Appearance, Urine Laboratory test result Normal (applies to non-numeric results) [facility] ([facility]) Color, Urine Laboratory test result Normal (applies to non -numeric results) [facility]) Specific [place] Urine Auto 1.015 1.002-1.035 Norm al (applies to non-numeric results) [facility] ([facility]) Protein, Urine Auto Laboratory test result Ramos l (applies to non-numeric results) [facility]) PH,Urine 5.0 units 5.0-9.0 Normal (applies to non-numeric resul ts) [facility] Ketone, Urine Auto Laboratory test result Normal (applies to non-numeric results) [facility]) Urobilinogen, Urine Auto 0.2 mg/dL 0.0-2.0 Normal (applies to non-numeric results) [facility] Glucose, Urine (Ua) Auto Laboratory test result Normal (applies to non-numeric results) [facility]) Nitrite, Urine Auto Laboratory test result Ramos l (applies to non-numeric results) [facility]) Bilirubin, Urine Auto Laboratory test result Nor mal (applies to non-numeric results) [facility] WBC, Urine Auto 2 /HPF 0-3 Normal (applies to non-numeric results) [facility] Blood, Urine Blood Laboratory test result Normal (applies to non-numeric results) [facility]) Leukocyte Esterase, Urine Auto Laboratory test result Abov e high normal [facility]) Squamous Epithelial Cell Ur AU 0 /HPF 0-6 N ormal (applies to non-numeric results) [facility] RBC, Urine Auto 0 /HPF 0-3 Normal (applies to non-numeric results) [facility] Bacteria, Urine Auto Laboratory test result Norm al (applies to non-numeric results) [facility] Hyaline Cast, Urine Auto 0 /LPF 0-1 Normal (applies to non -numeric results) [facility] ([facility]) ID Date Data Source [id number] 09/16/2020 08:43:00 AM EST [facility] ([facility]) Name Value Range Interpretation Code Description Data Debi rce(s) Supporting Document(s) Red Blood Count 5.11 10 4.00-5.40 Normal (applies to non-numeric results) [facility] ([facility]) Hemoglobin 13.3 g/dL 12.0-15.5 Normal (applies to non-numeric resul ts) [facility] ([facility]) White Blood Count 10.4 10 4.0-10.0 Above high normal [facility] ([facility]) Mean Corpuscular Volume 83.0 fl 80.0-96.0 Normal ( applies to non-numeric results) [facility] ([facility]) Hematocrit 42.4 % 36.0-47.0 Normal (applies to non-numeric resul ts) [facility] ([facility]) Mean Corpuscular Hemoglobin 26.0 pg 27.0-33.0 Below low normal [facility] Mean Corpuscular HGB Conc 31.4 g/dL 32.0-36.5 Below low normal [facility] Red Cell Distribution Width 14.1 % 11.5-14.5 Norm al (applies to non-numeric results) [facility] ([facility]) Platelet Count, Automated 276 10 150-450 Normal (applies to non-numeric results) [facility] ([facility]) Lymph % 13.9 % 24.0-44.0 Below low normal [facility] ( [facility]) Neutrophils % 74.9 % 36.0-66.0 Above high normal [facility] ([facility]) Kimball % 6.1 % 0.0-5.0 Above high normal [facility] ([facility]) Baso % 0.6 % 0.0-1.0 Normal (applies to non-numeric resul ts) [facility] ([facility]) Eos % 4.2 % 0.0-3.0 Above high normal [facility] ([facility]) Immature Granulocyte % 0.3 % 0-3.0 Normal (applies to non-n umeric results) [facility] ([facility]) Nucleated Red Blood Cell % 0.0 % 0-0 Normal (applies to n on-numeric results) [facility] ([facility]) Neutrophils # 7.8 10 1.5-8.5 Normal (applies to non-numeric re sults) [facility] ([facility]) Lymph # 1.4 10 1.5-5.0 Below low normal [facility] ( [facility]) Kimball # 0.6 10 0.0-0.8 Normal (applies to non-numeric resul ts) [facility] ([facility]) Baso # 0.1 10 0.0-0.2 Normal (applies to non-numeric resul ts) [facility] ([facility]) Eos # 0.4 10 0.0-0.5 Normal (applies to non-numeric resul ts) [facility] ([facility]) ID Date Data Source [id number] 09/16/2020 08:43:00 AM EST [facility] ([facility]) Name Value Range Interpretation Code Description Data Debi rce(s) Supporting Document(s) Hemoglobin A1c 5.7 % Normal (applies to non-numeric r esults) [facility] ([facility]) <content>REFERENCE RANGES:</content><br/ ><content></content>
<content><=5.6% NORMAL</content>
<content>5.7-6.4% SUGGESTS IMPAIRED GLUCOSE METABOLISM/PREDIABETIC</content>
<content>>= 6.5% ABNORMAL</content>
<content></content> Estimated Average Glucose 117 mg/dL 60-110 Above high normal [facility] ([facility]) ID Date Data Source [id number] 09/16/2020 08:43:00 AM EST [facility] ([facility]) Name Value Range Interpretation Code Description Data Debi rce(s) Supporting Document(s) Triglycerides Level 212 mg/dL Above high normal [facility] ([facility]) Cholesterol Level 140 mg/dL Normal (applies to non-numeri c results) [facility] ([facility]) HDL Cholesterol 40 mg/dL Normal (applies to non-numeric results) [facility] ([facility]) Non-HDL-C 100 mg/dL Normal (applies to non-numeric resul ts) [facility] Cholesterol Risk Ratio 3.500 Normal (applies to non-n umeric results) [facility] LDL Cholesterol 58 mg/dL Normal (applies to non-numeric results) [facility] ([facility]) ID Date Data Source [id number] 09/16/2020 08:43:00 AM EST [facility] ([facility]) Name Value Range Interpretation Code Description Data Debi rce(s) Supporting Document(s) Calcidiol [Mass/volume] in Serum or Plasma 13.6 ng/mL 30.0- 100.0 Below low normal [facility]) ID Date Data Source [id number] 09/16/2020 08:43:00 AM EST [facility] Name Value Range Interpretation Code Description Data Debi rce(s) Supporting Document(s) Thyrotropin [Units/volume] in Serum or Plasma Laboratory test result [facility] Thyroxine (T4) free [Mass/volume] in Serum or Plasma Laboratory tash t result [facility] ID Date Data Source [id number] 09/16/2020 08:43:00 AM EST [facility] Name Value Range Interpretation Code Description Data Debi rce(s) Supporting Document(s) Glucose, Fasting 101 mg/dL 70-100 Above high normal [facility] ([facility]) Creatinine For GFR 1.06 mg/dL 0.55-1.30 Normal (applies to non -numeric results) [facility] Glomerular Filtration Rate 54.6 Normal (applies to n on-numeric results) [facility]) <content>Units are mL/min/1.73 m2</content>
<content></content>
<content>Chronic Kidney Disease Staging per NKF:</content>
<content></content>
<content>Stage I & II GFR >=60 Normal to Mildly Decreased</content>
<content>Stage III GFR 30- 59 Moderately Decreased</content>
<content>Stage IV GFR 15-29 Severely Decreased</content>
<content>Stage V GFR <15 Very Little GFR Left</content>
<content>ESRD GFR <15 on BANK CASHIER</content>
<content></content> Blood Urea Nitrogen 15 mg/dL 7-18 Normal (applies to non-nume reece results) [facility] ([facility]) Chloride Level 109 meq/L 98-107 Above high normal [facility] ([facility]) Sodium Level 141 meq/L 136-145 Normal (applies to non-numeric res ults) [facility] ([facility]) Potassium Serum 3.9 meq/L 3.5-5.1 Normal (applies to non-numeric results) [facility] ([facility]) Calcium Level 9.5 mg/dL 8.8-10.2 Normal (applies to non-numeric re sults) [facility] ([facility]) Anion Gap 8 meq/L 8-16 Normal (applies to non-numeric resul ts) [facility] ([facility]) Carbon Dioxide Level 24 meq/L 21-32 Normal (applies to non-num tacho results) [facility] ([facility]) Alkaline Phosphatase 98 U/L 45-117 Normal (applies to non-num tacho results) [facility] ([facility]) Alt/SGPT 16 U/L 12-78 Normal (applies to non-numeric resul ts) [facility] ([facility]) Ast/Sgot 10 U/L 7-37 Normal (applies to non-numeric resul ts) [facility] ([facility]) Total Protein 7.3 GM/DL 6.4-8.2 Normal (applies to non-numeric re sults) [facility]) Bilirubin,Total 0.7 mg/dL 0.2-1.0 Normal (applies to non-numeric results) [facility] ([facility]) Albumin 3.7 GM/DL 3.2-5.2 Normal (applies to non-numeric resul ts) [facility] ([facility]) Albumin/Globulin Ratio 1.0 1.2-2.2 Below low normal [facility] ([facility]) ID Date Data Source [id number] 09/16/2020 08:43:00 AM EST MEDENT ([facility]) Name Value Range Interpretation Code Description Data Debi rce(s) Supporting Document(s) Free T4 1.11 ng/dL 0.76-1.46 Normal (applies to non-numeric resul ts) MEDENT ([facility]) Thyroid Stimulating Hormone 2.180 uIU/ML 0.358-3.740 Norm al (applies to non- numeric results) MEDENT ([facility]) ID Date Data Source [id number] 07/31/2020 10:01:00 AM EDT MED[facility] ([facility]) Name Value Range Interpretation Code Description Data Debi rce(s) Supporting Document(s) Red Blood Count 4.10 4.00-5.40 MEDENT ([facility]) White Blood Count 6.8 4.0-10.0 MEDENT ([facility]) Platelets 240 150-450 MEDENT ([facility]) Hemoglobin 11.1 MEDENT ([facility]) Hematocrit 33.7 MEDENT ([facility]) ID Date Data Source [id number] 04/23/2020 02:44:00 PM EDT [facility] Name Value Range Interpretation Code Description Data Debi rce(s) Supporting Document(s) White Blood Count 10.6 5.0-10.0 MEDENT ([facility]) Platelets 365 172-450 MEDENT ([facility]) Red Blood Count 4.79 4.00-5.40 MEDENT ([facility]) Hemoglobin 12.5 MEDENT ([facility]) Hematocrit 39.5 MEDENT ([facility]) ID Date Data Source [id number] 04/23/2020 02:44:00 PM EDT [facility] Name Value Range Interpretation Code Description Data Debi rce(s) Supporting Document(s) Magnesium Level 2.3 1.8-2.4 MEDENT ([facility]) ID Date Data Source [id number] 04/23/2020 02:44:00 PM EDT MEDENT ([facility]) Name Value Range Interpretation Code Description Data Debi rce(s) Supporting Document(s) Glucose 71 70-100 MEDENT ([facility]) Blood Urea Nitrogen 27 7-18 MEDENT ([facility]) Sodium 140 136-145 MEDENT ([facility]) Creatinine 1.07 0.6-1.0 MEDENT ([facility]) Potassium 4.0 3.5-5.1 [facility] Chloride 108 98-107 MED[facility] Calcium 9.0 8.2-9.6 MED[facility] Carbon Dioxide 25 21-32 MEDENT ([facility]) Glomerular filtration rate/1.73 sq M.pre dicted [Volume Rate/Area] in Serum or Plasma by Creatinine-based formula (MDRD) 54.0 MEDENT ([facility]) ID Date Data Source [id number] 04/18/2020 02:49:00 PM EDT MEDENT ([facility]) Name Value Range Interpretation Code Description Data Debi rce(s) Supporting Document(s) Natriuretic peptide.B prohormone N-Terminal [Mass/volu me] in Serum or Plasma 2222 MEDENT ([facility]) Troponin Laboratory test result MEDENT ([facility]) ID Date Data Source [id number] 04/18/2020 02:49:00 PM EDT MEDENT ([facility]) Name Value Range Interpretation Code Description Data Debi rce(s) Supporting Document(s) Creatine kinase [Enzymatic activity/volume] in Serum or Plasma 119 MEDENT ([facility]) CPK-MB 3.0 MEDENT ([facility]iology [facility]) ID Date Data Source [id number] 04/17/2020 03:01:00 PM EDT MEDENT ([facility]) Name Value Range Interpretation Code Description Data Debi rce(s) Supporting Document(s) Thyroid Stimulating Hormone 6.590 ME DENT ([facility]) ID Date Data Source NASAL AND SINUS CULTURE 12/03/2019 12:00:00 AM EST eCW1 ([facility]) Name Value Range Interpretation Code Description Data Dbei rce(s) Supporting Document(s) FULL REPORT IN LAB NOTES (eCW and Medent). NASAL AND SINUS CULTURE eCW1 ([facility]) ID Date Data Source [id number] 11/22/2019 05:23:00 PM EST MEDENT ([facility], ) Name Value Range Interpretation Code Description Data Debi rce(s) Supporting Document(s) Rheumatoid factor [Units/volume] in Serum or Plasma Laboratory t est result Normal (applies to non-numeric results) [facility], ) will discuss at follow-up Cyclic citrullinated peptide IgG Ab [Units/volume] in Serum or Plasma 10 units 0-19 Normal (applies to non-numeric results) [facility], ) will discuss at follow-up ID Date Data Source [id number] 11/22/2019 05:23:00 PM EST [facility] Name Value Range Interpretation Code Description Data Debi rce(s) Supporting Document(s) Aureobasidium [place] Laboratory test result N ormal (applies to non-numeric results) [facility], ) will discuss at follow-up Aspergillus Fumigatus AB Laboratory test result Normal (applies to non-numeric results) [facility], ) will discuss at follow-up Micropolyspora Faeni AB Laboratory test result N ormal (applies to non-numeric results) [facility]) will discuss at follow-up [place] Serum AB Laboratory test result Normal (a pplies to non-numeric results) [facility], ) will discuss at follow-up Thermoactinomyces Sacchari Laboratory test result Normal (applies to non- numeric results) [facility] ([facility]) will discuss at follow-up Thermoactinomyces Vulgaris Laboratory test result Normal (applies to non- numeric results) [facility] ([facility], ) will discuss at follow-up ID Date Data Source [id number] 11/22/2019 05:23:00 PM EST [facility]) Name Value Range Interpretation Code Description Data Debi rce(s) Supporting Document(s) Glucose, Fasting 114 mg/dL 70-100 Above high normal M [facility], ) will discuss at follow-up Glomerular Filtration Rate 48.8 Normal (applies to n on-numeric results) [facility] ([facility]) will discuss at follow-up Blood Urea Nitrogen 17 mg/dL 7-18 Normal (applies to non-nume reece results) [facility] ([facility]) will discuss at follow-up Creatinine For GFR 1.17 mg/dL 0.55-1.30 Normal (applies to non -numeric results) [facility] ([facility]) will discuss at follow-up Sodium Level 142 meq/L 136-145 Normal (applies to non-numeric res ults) [facility] ([facility]) will discuss at follow-up Potassium Serum 4.1 meq/L 3.5-5.1 Normal (applies to non-numeric results) [facility] ([facility]) will discuss at follow-up Carbon Dioxide Level 29 meq/L 21-32 Normal (applies to non-num tacho results) [facility] ([facility]) will discuss at follow-up Chloride Level 106 meq/L 98-107 Normal (applies to non-numeric r esults) [facility] ([facility]) will discuss at follow-up Anion Gap 7 meq/L 8-16 Below low normal [facility] ( [facility]) will discuss at follow-up Calcium Level 9.0 mg/dL 8.8-10.2 Normal (applies to non-numeric re sults) [facility] ([facility]) will discuss at follow-up Procedure Social History Code Duration Value Status Description Data Source(s ) Smoking 12/12/2020 12:00:00 AM EST Former Smoker completed Former Smoker eCW1 ([facility]) Smoking 12/08/2020 12:00:00 AM EST - 10/31/2013 12:00:00 AM EST Patient is a former smoker completed Patient is a former smoker MEDENT ([facility], ) Smoking 08/27/2020 12:00:00 AM EDT Former Smoker completed Former Smoker eCW1 ([facility]) Smoking 08/27/2020 12:00:00 AM EDT Former Smoker completed Former Smoker eCW1 ([facility]) Smoking 08/27/2020 12:00:00 AM EDT Former Smoker completed Former Smoker eCW1 ([facility]) Smoking 08/27/2020 12:00:00 AM EDT Former Smoker completed Former Smoker eCW1 ([facility]) Smoking 08/27/2020 12:00:00 AM EDT Former Smoker completed Former Smoker eCW1 ([facility]) Smoking 08/27/2020 12:00:00 AM EDT Former Smoker completed Former Smoker eCW1 ([facility]) Smoking 08/27/2020 12:00:00 AM EDT Former Smoker completed Former Smoker eCW1 ([facility]) Smoking 08/27/2020 12:00:00 AM EDT Former Smoker completed Former Smoker eCW1 ([facility]) Smoking 08/27/2020 12:00:00 AM EDT Former Smoker completed Former Smoker eCW1 ([facility]) Smoking 08/27/2020 12:00:00 AM EDT Former Smoker completed Former Smoker eCW1 ([facility]) Smoking 08/27/2020 12:00:00 AM EDT Former Smoker completed Former Smoker eCW1 ([facility]) Smoking 08/27/2020 12:00:00 AM EDT Former Smoker completed Former Smoker eCW1 ([facility]) Smoking 08/27/2020 12:00:00 AM EDT Former Smoker completed Former Smoker eCW1 ([facility]) Smoking 08/27/2020 12:00:00 AM EDT Former Smoker completed Former Smoker eCW1 ([facility]) Smoking 08/27/2020 12:00:00 AM EDT Former Smoker completed Former Smoker eCW1 ([facility]) Smoking 08/22/2020 12:00:00 AM EDT Patient is a former smoker completed Patient is a former smoker [facility] ([facility]) Smoking 08/07/2020 12:00:00 AM EDT Former Smoker completed Former Smoker eCW1 ([facility]) Smoking 08/07/2020 12:00:00 AM EDT Former Smoker completed Former Smoker eCW1 ([facility]) Smoking 08/07/2020 12:00:00 AM EDT Former Smoker completed Former Smoker eCW1 ([facility]) Smoking 05/05/2020 12:00:00 AM EDT Former Smoker completed Former Smoker eCW1 ([facility]) Smoking 05/05/2020 12:00:00 AM EDT Former Smoker completed Former Smoker eCW1 ([facility]) Smoking 04/10/2020 12:00:00 AM EDT Former Smoker completed Former Smoker eCW1 ([facility]) Smoking 04/10/2020 12:00:00 AM EDT Former Smoker completed Former Smoker eCW1 ([facility]) Smoking 04/10/2020 12:00:00 AM EDT Former Smoker completed Former Smoker eCW1 ([facility]) Smoking 04/10/2020 12:00:00 AM EDT Former Smoker completed Former Smoker eCW1 ([facility]) Vital Signs ID Date Data Source UNK Name Value Range Interpretation Code Description Data Source(s) Body temperature 96.5 [degF] 96.5 [degF] eCW1 ( [facility]) Respiratory rate 20 /min 20 /min eCW1 ([facility]) Heart rate 87 /min 87 /min eCW1 ([facility]) Body mass index (BMI) [Ratio] 29.81 kg/m2 29.81 kg/m2 W1 ([facility]) Body height 62 [in_i] 62 [in_i] W1 ([facility]) Body weight 163 [lb_av] 163 [lb_av] W1 ([facility]) Diastolic blood pressure 66 mm[Hg] 66 mm[Hg] eCW1 ([facility]) Systolic blood pressure 138 mm[Hg] 138 mm[Hg] e CW1 ([facility]) Body surface area Derived from formula 1.76 m2 1.76 m2 [facility] Body weight 74.844 kg 74.844 kg [facility] ([facility]) [place] body weight 110 [lb_av] 110 [lb_av] MEDEN T ([facility]) Body mass index (BMI) [Ratio] 30.2 kg/m2 30.2 k g/m2 [facility] ([facility]) Body weight 165.00 [lb_av] 165.00 [lb_av] MEDEN T ([facility]) verbla per the pt Body height 62 [in_i] 62 [in_i] [facility] ([facility]) 5'2" Body temperature 95.9 [degF] 95.9 [degF] [facility] ([facility]) Oxygen saturation in Arterial blood by Pulse oximetry 916 % 916 % [facility] ([facility]) Heart rate 83 /min 83 /min [facility]) Diastolic blood pressure 70 mm[Hg] 70 mm[Hg] [facility] ([facility]) Systolic blood pressure 122 mm[Hg] 122 mm[Hg] M [facility] Body surface area Derived from formula 1.70 m2 1.70 m2 [facility]) Body mass index (BMI) [Ratio] 31.5 kg/m2 31.5 k g/m2 [facility]) Body height 60 [in_i] 60 [in_i] [facility] ([facility]) 5'0" Body weight 73.200 kg 73.200 kg [facility]) Body weight 161.38 [lb_av] 161.38 [lb_av] MEDEN T ([facility]) Oxygen saturation in Arterial blood by Pulse oximetry 98 % 98 % [facility] ([facility]) oxygen set 5L Respiratory rate 16 /min 16 /min [facility] ( [facility]) Body temperature 98.5 [degF] 98.5 [degF] [facility]) Heart rate 75 /min 75 /min [facility]) Diastolic blood pressure 80 mm[Hg] 80 mm[Hg] [facility]) Systolic blood pressure 120 mm[Hg] 120 mm[Hg] M [facility] Body surface area Derived from formula 1.70 m2 1.70 m2 [facility]) Body mass index (BMI) [Ratio] 31.5 kg/m2 31.5 k g/m2 [facility] Body height 60 [in_i] 60 [in_i] MEDENT ([facility]) 5'0" Body weight 73.256 kg 73.256 kg MEDENT ([facility]) Body weight 161.50 [lb_av] 161.50 [lb_av] MEDEN T ([facility]) Oxygen saturation in Arterial blood by Pulse oximetry 98 % 98 % [facility]) O2 set at 4L Respiratory rate 16 /min 16 /min [facility] ( [facility]) Body temperature 96.0 [degF] 96.0 [degF] [facility]) Heart rate 58 /min 58 /min [facility] ([facility]) Diastolic blood pressure 82 mm[Hg] 82 mm[Hg] [facility]) Systolic blood pressure 124 mm[Hg] 124 mm[Hg] [facility] Body surface area Derived from formula 1.75 m2 1.75 m2 [facility], ) Body weight 73.256 kg 73.256 kg [facility] ([facility], ) [place] body weight 110 [lb_av] 110 [lb_av] MEDEN T ([facility], ) Body mass index (BMI) [Ratio] 29.5 kg/m2 29.5 k g/m2 [facility] ([facility], ) Body weight 161.50 [lb_av] 161.50 [lb_av] MEDEN T ([facility], ) Body height 62 [in_i] 62 [in_i] MEDENT ([facility], ) 5'2" Body temperature 97.1 [degF] 97.1 [degF] MEDENT ([facility], ) Oxygen saturation in Arterial blood by Pulse oximetry 974 % 974 % MEDENT ([facility], ) Heart rate 66 /min 66 /min MEDENT ([facility], ) Diastolic blood pressure 70 mm[Hg] 70 mm[Hg] MEDENT ([facility], ) Systolic blood pressure 118 mm[Hg] 118 mm[Hg] M EDENT ([facility], ) Diastolic blood pressure 66 mm[Hg] 66 mm[Hg] eCW1 ([facility]) Systolic blood pressure 138 mm[Hg] 138 mm[Hg] e CW1 ([facility]) Body temperature 96.6 [degF] 96.6 [degF] eCW1 ( [facility]) Respiratory rate 20 /min 20 /min eCW1 ([facility]) Heart rate 87 /min 87 /min eCW1 ([facility]) Body mass index (BMI) [Ratio] 29.88 kg/m2 29.88 kg/m2 eCW1 ([facility]) Body height 62 [in_i] 62 [in_i] eCW1 ([facility]) Body weight 163.4 [lb_av] 163.4 [lb_av] eCW1 ([facility]) Diastolic blood pressure--sitting 40 mm[Hg] 40 mm[Hg] MEDENT ([facility]) large cuff, Ra Systolic blood pressure--sitting 82 mm[Hg] 82 mm[Hg] MEDENT ([facility]) large cuff, Ra Heart rate 63 /min 63 /min MEDENT ([facility]) Body mass index (BMI) [Ratio] 29.4 kg/m2 29.4 k g/m2 MEDENT ([facility]) Body height 62 [in_i] 62 [in_i] MEDENT ([facility]) 5'2" Body weight 161.00 [lb_av] 161.00 [lb_av] MEDEN T ([facility]) Diastolic blood pressure--sitting 66 mm[Hg] 66 mm[Hg] MEDENT ([facility]) CBP adult cuff, [place] Systolic blood pressure--sitting 106 mm[Hg] 106 mm[Hg] MEDENT ([facility]) CBP adult cuff, [place] Heart rate 72 /min 72 /min MED[facility] ([facility]) Body mass index (BMI) [Ratio] 31.3 kg/m2 31.3 k g/m2 MEDENT ([facility]) Body height 62 [in_i] 62 [in_i] MEDENT ([facility] 5'2" Body weight 171.00 [lb_av] 171.00 [lb_av] MEDEN T ([facility]) Diastolic blood pressure 66 mm[Hg] 66 mm[Hg] eCW1 ([facility]) Systolic blood pressure 110 mm[Hg] 110 mm[Hg] e CW1 ([facility]) Body temperature 98.5 [degF] 98.5 [degF] eCW1 ( [facility]) Respiratory rate 20 /min 20 /min eCW1 ([facility]) Heart rate 69 /min 69 /min eCW1 ([facility]) Body mass index (BMI) [Ratio] 31.60 kg/m2 31.60 kg/m2 W1 ([facility]) Body height 62 [in_i] 62 [in_i] eCW1 ([facility]) Body weight 172.8 [lb_av] 172.8 [lb_av] eCW1 ([facility]) Diastolic blood pressure 74 mm[Hg] 74 mm[Hg] eCW1 ([facility]) Systolic blood pressure 113 mm[Hg] 113 mm[Hg] e CW1 ([facility]) Body temperature 98.8 [degF] 98.8 [degF] eCW1 ( [facility]) Respiratory rate 20 /min 20 /min eCW1 ([facility]) Heart rate 79 /min 79 /min eCW1 ([facility]) Body mass index (BMI) [Ratio] 31.97 kg/m2 31.97 kg/m2 eCW1 ([facility]) Body height 62 [in_us] 62 [in_us] eCW1 ([facility]) Body weight Measured 174.8 [lb_av] 174.8 [lb_av ] eCW1 ([facility]) Diastolic blood pressure 62 mm[Hg] 62 mm[Hg] eCW1 ([facility]) Systolic blood pressure 114 mm[Hg] 114 mm[Hg] e CW1 ([facility]) Body temperature 99.2 [degF] 99.2 [degF] eCW1 ( [facility]) Respiratory rate 20 /min 20 /min eCW1 ([facility]) Heart rate 89 /min 89 /min eCW1 ([facility]) Body mass index (BMI) [Ratio] 32.15 kg/m2 32.15 kg/m2 eCW1 ([facility]) Body height 62 [in_i] 62 [in_i] eCW1 ([facility]) Body weight 175.8 [lb_av] 175.8 [lb_av] eCW1 ([facility]) Body weight 79.380 kg 79.380 kg MEDEARNEST ([facility], ) [place] body weight 110 [lb_av] 110 [lb_av] MEDEN T ([facility], ) Body mass index (BMI) [Ratio] 32.0 kg/m2 32.0 k g/m2 MEDENT ([facility], ) Body weight 175.00 [lb_av] 175.00 [lb_av] MEDEN T ([facility], ) Body height 62 [in_i] 62 [in_i] MEDENT ([facility], ) 5'2" Body temperature 98.8 [degF] 98.8 [degF] [facility], ) Oxygen saturation in Arterial blood by Pulse oximetry 91 % 91 % [facility] ([facility], ) o2 sat on 4l Heart rate 73 /min 73 /min MEDEARNEST ([facility], ) Diastolic blood pressure 68 mm[Hg] 68 mm[Hg] MEDENT ([facility], ) Systolic blood pressure 102 mm[Hg] 102 mm[Hg] [facility], ) Diastolic blood pressure 56 mm[Hg] 56 mm[Hg] eCW1 ([facility]) Systolic blood pressure 114 mm[Hg] 114 mm[Hg] e CW1 ([facility]) Body temperature 97.2 [degF] 97.2 [degF] eCW1 ( [facility]) Respiratory rate 20 /min 20 /min eCW1 ([facility]) Heart rate 96 /min 96 /min eCW1 ([facility]) Body mass index (BMI) [Ratio] 32.15 kg/m2 32.15 kg/m2 W1 ([facility]) Body height 62 [in_us] 62 [in_us] eCW1 ([facility]) Body weight Measured 175.8 [lb_av] 175.8 [lb_av ] W1 ([facility]) Body weight 80.968 kg 80.968 kg [facility], ) Body mass index (BMI) [Ratio] 32.6 kg/m2 32.6 k g/m2 [facility] ([facility], ) Body weight 178.50 [lb_av] 178.50 [lb_av] MEDEN T ([facility], ) Body height 62 [in_i] 62 [in_i] [facility] ([facility], ) 5'2" Oxygen saturation in Arterial blood by Pulse oximetry 86 % 86 % [facility] ([facility], ) o2 sat on 3L pulsed, 96% 02 sat on 4L co ntinuous Heart rate 69 /min 69 /min [facility] ([facility], ) Diastolic blood pressure 63 mm[Hg] 63 mm[Hg] [facility] ([facility], ) Systolic blood pressure 124 mm[Hg] 124 mm[Hg] [facility] Diastolic blood pressure 62 mm[Hg] 62 mm[Hg] eCW1 ([facility]) Systolic blood pressure 110 mm[Hg] 110 mm[Hg] e CW1 ([facility]) Body temperature 98.4 [degF] 98.4 [degF] eCW1 ( [facility]) Respiratory rate 20 /min 20 /min eCW1 ([facility]) Heart rate 81 /min 81 /min eCW1 ([facility]) Body mass index (BMI) [Ratio] 32.81 kg/m2 32.81 kg/m2 eCW1 ([facility]) Body height 62 [in_us] 62 [in_us] eCW1 ([facility]) Body weight Measured 179.4 [lb_av] 179.4 [lb_av ] eCW1 ([facility]) Body temperature 97.4 [degF] 97.4 [degF] eCW1 ( [facility]) Respiratory rate 18 /min 18 /min eCW1 ([facility]) Heart rate 74 /min 74 /min eCW1 ([facility]) Body mass index (BMI) [Ratio] 32.88 kg/m2 32.88 kg/m2 eCW1 ([facility]) Body height 62 [in_us] 62 [in_us] eCW1 ([facility]) Body weight Measured 179.8 [lb_av] 179.8 [lb_av ] eCW1 ([facility]) Diastolic blood pressure 78 mm[Hg] 78 mm[Hg] eCW1 ([facility]) Systolic blood pressure 118 mm[Hg] 118 mm[Hg] e CW1 ([facility]) Body temperature 98.0 [degF] 98.0 [degF] eCW1 ( [facility]) Respiratory rate 18 /min 18 /min eCW1 ([facility]) Heart rate 86 /min 86 /min eCW1 ([facility]) Body mass index (BMI) [Ratio] 33.10 kg/m2 33.10 kg/m2 eCW1 ([facility]) Body height 62 [in_us] 62 [in_us] eCW1 ([facility]) Body weight Measured 181.0 [lb_av] 181.0 [lb_av ] eCW1 ([facility]) Body weight 83.916 kg 83.916 kg [facility] ([facility]) Body mass index (BMI) [Ratio] 33.8 kg/m2 33.8 k g/m2 [facility] ([facility]) Body weight 185.00 [lb_av] 185.00 [lb_av] MEDEN T ([facility]) Body height 62 [in_i] 62 [in_i] [facility] ([facility]) 5'2" Oxygen saturation in Arterial blood by Pulse oximetry 91 % 91 % [facility] ([facility]) o2 sat on 3l Heart rate 79 /min 79 /min [facility] ([facility]) Diastolic blood pressure 78 mm[Hg] 78 mm[Hg] [facility] ([facility]) Systolic blood pressure 122 mm[Hg] 122 mm[Hg] [facility] Diastolic blood pressure 59 mm[Hg] 59 mm[Hg] eCW1 ([facility]) Systolic blood pressure 124 mm[Hg] 124 mm[Hg] e CW1 ([facility]) Body temperature 98.1 [degF] 98.1 [degF] eCW1 ( [facility]) Respiratory rate 20 /min 20 /min eCW1 ([facility]) Heart rate 84 /min 84 /min eCW1 ([facility]) Body mass index (BMI) [Ratio] 33.43 kg/m2 33.43 kg/m2 W1 ([facility]) Body height 62 [in_us] 62 [in_us] eCW1 ([facility]) Body weight Measured 182.8 [lb_av] 182.8 [lb_av ] W1 ([facility]) Body weight 83.916 kg 83.916 kg [facility] ([facility]) Body mass index (BMI) [Ratio] 33.8 kg/m2 33.8 k g/m2 [facility] ([facility]) Body weight 185.00 [lb_av] 185.00 [lb_av] BAL T ([facility], ) Body height 62 [in_i] 62 [in_i] RICKYEARNEST ([facility], ) 5'2" Oxygen saturation in Arterial blood by Pulse oximetry 91 % 91 % [facility] ([facility], ) o2 sat on 3l pulsed Heart rate 67 /min 67 /min [facility] ([facility], ) Diastolic blood pressure 74 mm[Hg] 74 mm[Hg] [facility] Systolic blood pressure 122 mm[Hg] 122 mm[Hg] M EDEARNEST ([facility], ) ID Date Data Source [id number] 11/24/2020 01:24:31 PM [facility] Name Value Range Interpretation Code Description Data Source(s) WEIGHT RECORDED 161.00 pounds 161.00 pounds [facility] Height 60 Inches 060 Inches [facility] Patient Treatment Plan of Care Planned Activity Planned Date Details Description Data Source (s) Bisoprolol Fumarate 5 MG 12/16/2020 12:00:00 AM EST NETSMART ([facility]) Spironolactone 25 MG 12/16/2020 12:00:00 AM EST NETSMART ([facility]) Atorvastatin Calcium 40 MG 12/16/2020 12:00:00 AM EST NETSMART ([facility]) BuPROPion HCl 75 MG 12/16/2020 12:00:00 AM EST NETSMART ([facility]) Torsemide 20 MG 12/16/2020 12:00:00 AM EST NETSMART ([facility]) Omeprazole 20 MG 12/16/2020 12:00:00 AM EST NETSMART ([facility]) MetFORMIN HCl 500 MG 12/16/2020 12:00:00 AM EST NETSMART ([facility]) Pregabalin 75 MG 12/16/2020 12:00:00 AM EST NETSMART ([facility]) Azithromycin 250 MG 12/16/2020 12:00:00 AM EST NETSMART ([facility]) Levothyroxine Sodium 50 MCG 12/16/2020 12:00:00 AM EST NETSMART ([facility]) Vitamin B-12 2500 MCG 12/16/2020 12:00:00 AM EST NETSMART ([facility]) Aspirin Adult Low Dose 81 MG 12/16/2020 12:00:00 AM EST NETSMART ([facility]) Oxygen 12/16/2020 12:00:00 AM EST N ETSMART ([facility]) Albuterol Sulfate (2.5 MG/3ML) 0.083% 12/16/2020 12:00:00 AM EST NETSMART ([facility]) Acetaminophen 325 MG / Hydrocodone Bitartrate 5 MG Ora l Tablet 11/10/2020 12:00:00 AM EST eCW1 ([facility]) Acetaminophen 325 MG / Hydrocodone Bitartrate 5 MG Ora l Tablet 11/10/2020 12:00:00 AM EST eCW1 ([facility]) Acetaminophen 325 MG / Hydrocodone Bitartrate 5 MG Ora l Tablet 11/10/2020 12:00:00 AM EST eCW1 ([facility]) Acetaminophen 325 MG / Hydrocodone Bitartrate 5 MG Ora l Tablet 11/10/2020 12:00:00 AM EST eCW1 ([facility]) Acetaminophen 325 MG / Hydrocodone Bitartrate 5 MG Ora l Tablet 10/08/2020 12:00:00 AM EST eCW1 ([facility]) Acetaminophen 325 MG / Hydrocodone Bitartrate 5 MG Ora l Tablet 10/08/2020 12:00:00 AM EST eCW1 ([facility]) [place] 150 MCG 09/01/2020 12:00:00 AM EST eCW1 ([facility]) [place] 150 MCG 09/01/2020 12:00:00 AM EST eCW1 ([facility]) [place] 150 MCG 09/01/2020 12:00:00 AM EST eCW1 ([facility]) [place] 150 MCG 09/01/2020 12:00:00 AM EST eCW1 ([facility]) [place] 150 MCG 09/01/2020 12:00:00 AM EST eCW1 ([facility]) [place] 150 MCG 09/01/2020 12:00:00 AM EST eCW1 ([facility]) [place] 150 MCG 09/01/2020 12:00:00 AM EST eCW1 ([facility]) [place] 150 MCG 09/01/2020 12:00:00 AM EST eCW1 ([facility]) [place] 150 MCG 09/01/2020 12:00:00 AM EST eCW1 ([facility]) [place] 150 MCG 09/01/2020 12:00:00 AM EST eCW1 ([facility]) 168 HR Buprenorphine 0.01 MG/HR Transdermal Patch [BuT rans] 08/27/2020 12:00:00 AM EDT eCW1 ([facility]) 168 HR Buprenorphine 0.01 MG/HR Transdermal Patch [BuT rans] 08/27/2020 12:00:00 AM EDT eCW1 ([facility]) 168 HR Buprenorphine 0.01 MG/HR Transdermal Patch [BuT rans] 08/27/2020 12:00:00 AM EDT eCW1 ([facility]) 168 HR Buprenorphine 0.01 MG/HR Transdermal Patch [BuT rans] 08/27/2020 12:00:00 AM EDT eCW1 ([facility]) 168 HR Buprenorphine 0.01 MG/HR Transdermal Patch [BuT rans] 08/27/2020 12:00:00 AM EDT eCW1 ([facility]) Acetaminophen 325 MG / Hydrocodone Bitartrate 5 MG Ora l Tablet 08/27/2020 12:00:00 AM EDT eCW1 ([facility]) 168 HR Buprenorphine 0.01 MG/HR Transdermal Patch [BuT rans] 08/27/2020 12:00:00 AM EDT eCW1 ([facility]) Acetaminophen 325 MG / Hydrocodone Bitartrate 5 MG Ora l Tablet 08/27/2020 12:00:00 AM EDT eCW1 ([facility]) Acetaminophen 325 MG / Hydrocodone Bitartrate 5 MG Ora l Tablet 08/27/2020 12:00:00 AM EDT eCW1 ([facility]) 168 HR Buprenorphine 0.01 MG/HR Transdermal Patch [BuT rans] 08/27/2020 12:00:00 AM EDT eCW1 ([facility]) Acetaminophen 325 MG / Hydrocodone Bitartrate 5 MG Ora l Tablet 08/27/2020 12:00:00 AM EDT eCW1 ([facility]) 168 HR Buprenorphine 0.01 MG/HR Transdermal Patch [BuT rans] 08/27/2020 12:00:00 AM EDT eCW1 ([facility]) 168 HR Buprenorphine 0.01 MG/HR Transdermal Patch [BuT rans] 08/27/2020 12:00:00 AM EDT eCW1 ([facility]) Acetaminophen 325 MG / Hydrocodone Bitartrate 5 MG Ora l Tablet 08/27/2020 12:00:00 AM EDT eCW1 ([facility]) 168 HR Buprenorphine 0.01 MG/HR Transdermal Patch [BuT rans] 08/27/2020 12:00:00 AM EDT eCW1 ([facility]) Acetaminophen 325 MG / Hydrocodone Bitartrate 5 MG Ora l Tablet 08/27/2020 12:00:00 AM EDT eCW1 ([facility]) 168 HR Buprenorphine 0.01 MG/HR Transdermal Patch [BuT rans] 08/27/2020 12:00:00 AM EDT eCW1 ([facility]) 168 HR Buprenorphine 0.01 MG/HR Transdermal Patch [BuT rans] 08/27/2020 12:00:00 AM EDT eCW1 ([facility]) 168 HR Buprenorphine 0.01 MG/HR Transdermal Patch [BuT rans] 08/27/2020 12:00:00 AM EDT eCW1 ([facility]) Acetaminophen 325 MG / Hydrocodone Bitartrate 5 MG Ora l Tablet 08/27/2020 12:00:00 AM EDT eCW1 ([facility]) 168 HR Buprenorphine 0.01 MG/HR Transdermal Patch [BuT rans] 08/27/2020 12:00:00 AM EDT eCW1 ([facility]) Acetaminophen 325 MG / Hydrocodone Bitartrate 5 MG Ora l Tablet 08/27/2020 12:00:00 AM EDT eCW1 ([facility]) 168 HR Buprenorphine 0.01 MG/HR Transdermal Patch [BuT rans] 08/27/2020 12:00:00 AM EDT eCW1 ([facility]) Acetaminophen 325 MG / Hydrocodone Bitartrate 5 MG Ora l Tablet 08/27/2020 12:00:00 AM EDT eCW1 ([facility]) [place] 1 08/14/2020 12:00:00 AM EDT eCW1 ([facility]) [place] 1 08/14/2020 12:00:00 AM EDT eCW1 ([facility]) [place] 1 08/14/2020 12:00:00 AM EDT eCW1 ([facility]) [place] 1 08/14/2020 12:00:00 AM EDT eCW1 ([facility]) [place] 1 08/14/2020 12:00:00 AM EDT eCW1 ([facility]) Rolling [place] 1 08/14/2020 12:00:00 AM EDT eCW1 ([facility]) Rolling [place] 1 08/14/2020 12:00:00 AM EDT eCW1 ([facility]) [place] 1 08/14/2020 12:00:00 AM EDT eCW1 ([facility]) [place] 1 08/14/2020 12:00:00 AM EDT eCW1 ([facility]) [place] 1 08/14/2020 12:00:00 AM EDT eCW1 ([facility]) Rolling [place] 1 08/14/2020 12:00:00 AM EDT eCW1 ([facility]) Rolling [place] 1 08/14/2020 12:00:00 AM EDT eCW1 ([facility]) Rolling [place] 1 08/14/2020 12:00:00 AM EDT eCW1 ([facility]) Rolling [place] 1 08/14/2020 12:00:00 AM EDT eCW1 ([facility]) Rolling [place] 1 08/14/2020 12:00:00 AM EDT eCW1 ([facility]) Rolling [place] 1 08/14/2020 12:00:00 AM EDT eCW1 ([facility]) Sulfamethoxazole 400 MG / Trimethoprim 80 MG Oral Tabl et 05/05/2020 12:00:00 AM EDT eCW1 ([facility]) Sulfamethoxazole 400 MG / Trimethoprim 80 MG Oral Tabl et 05/05/2020 12:00:00 AM EDT eCW1 ([facility]) tizanidine 4 MG Oral Tablet 04/23/2020 12:00:00 AM EDT eCW1 ([facility]) Lisinopril 2.5 MG Oral Tablet 04/16/2020 12:00:00 AM EDT eCW1 ([facility]) Lisinopril 2.5 MG Oral Tablet 04/16/2020 12:00:00 AM EDT eCW1 ([facility]) Acetaminophen 325 MG / Hydrocodone Bitartrate 5 MG Ora l Tablet 02/26/2020 12:00:00 AM EDT eCW1 ([facility]) Acetaminophen 325 MG / Hydrocodone Bitartrate 5 MG Ora l Tablet 01/24/2020 12:00:00 AM EDT eCW1 ([facility]) cetirizine hydrochloride 10 MG Oral Tablet 01/07/2020 12:00:00 AM E DT eCW1 ([facility]) Nystatin 100 UNT/MG Topical Powder 01/03/2020 12:00:00 AM EST eCW1 ([facility]) Acetaminophen 325 MG / Hydrocodone Bitartrate 5 MG Ora l Tablet 12/03/2019 12:00:00 AM EST eCW1 ([facility])
[2020-12-22] MEDS ORDERED: TORS20TA2 PO (13:25)
[2020-12-22] MEDS ORDERED: FUROSEMIDE 40MG/4ML VIAL (J1940) IV ONE (13:30)
--- NOTE | 2020-12-22 13:52 | REP ---
INDICATION: DYSPNEA/COUGH. COMPARISON: Comparison chest x-ray 17 November 2020. TECHNIQUE: Portable upright AP chest radiograph. Two views presented. FINDINGS: EKG monitoring electrodes are noted. Cardiomegaly is observed similar to the prior chest x-ray. Interstitial markings are prominent in the bases bilaterally, more so than previous. Question interstitial edema. No pleural effusion is seen. No focal infiltrate is appreciated.. IMPRESSION: Cardiomegaly with diffuse interstitial edema pattern. Question CHF.. <Electronically signed by Jayson Pro > 12/22/20 [id number]
[2020-12-22 14:06] LABS: ABG BASE EXCESS 0.9 (-2.0-2.0); ABG HCO3 22.5 MEQ/L (22.0-26.0); ABG PARTIAL PRESSURE CO2 28.1 mmHg (35.0-45.0); ABG PARTIAL PRESSURE O2 55.7 mmHg (75.0-100.0); ABG STANDARD HCO3 25.1 MEQ/L (22.0-26.0); ABG TOTAL CO2 23.4 MEQ/L (23.0-31.0); ABG pH (ARTERIAL) 7.522 UNITS (7.350-7.450)
--- OUTSIDE RECORDS SUMMARY | 2020-12-22 14:13 | CCD ---
Author Author [facility] Organization [facility] Address Unknown Phone Unavailable Care Team Providers Care Filing Writer Name Role Phone ANTECOL, Carlito ABDI MD [...] is protected by Article 27-F of the [facility] Public Health law. If you continue you may have access to information: Regarding HIV / AIDS; Provided by facilities licensed or operated by the [facility] Office of Mental Health; or Provided by the [facility] Office for People With Developmental Disabilities. If such information is present, then the following [facility] mandated warning applies: This information has [...] law may result in a fine or mcc sentence or both. A general authorization for the release of medical or other information is NOT sufficient authorization for further disc losure. Allergies and Adverse Reactions Type Description Substance Reaction Status Data Source(s ) Latex Latex Latex active [facility] ([facility]) Bee sting Bee sting Bee sting active [facility] ([facility]) No Known Allergies No Known Allergies [facility] No Known Drug Allergies No Known Drug Allergies [facility] Drug allergy Latex Gloves Drug allergy Rash/ITCHING Active eCW1 ([facility]) Bee Stings Bee Stings Bee Stings Anaphylaxis Active W ([facility]) Encounters Encounter Providers Location Date Indications Data Source(s ) 12/16/2020 12:00:00 AM EST - 021 11:23:30 PM EST NETSMAR ([facility]) TeleMedicine Phone E/M by Ramon 11-20 Min [address] [place] [address] 12/12/2020 12:00:00 AM EST eCW1 ([facility]) Unknown [address] [facility] [address] 12/08/2020 12:00:00 AM EST eCW1 ([facility]) Outpatient Attender: Iris CARRASCO-CConsultant: PCP NO 11/24/2020 11:03:00 AM EST - 11/24/2020 11:03:00 AM EST [facility] [address] [facility] [address] 11/20/2020 12:00:00 AM EST eCW1 ([facility]) Unknown [address] [facility] [address] 11/14/2020 12:00:00 AM EST eCW1 ([facility]) Unknown [address] [facility] [address] 11/10/2020 12:00:00 AM EST eCW1 ([facility]) Outpatient Attender: Iris FLORCConsultant: PCP NO 10/17/2020 01:13:00 PM EST - 10/17/2020 02:13:00 PM EST [facility] Outpatient Attender: Amie Clarke/Werner/Bladimir/Kun ndl 10/16/2020 09:30:00 AM EST MEDENT ([facility]) Outpatient Attender: Iris FLORCConsultant: PCP NO 10/10/2020 07:57:57 AM EST - 10/13/2020 11:30:00 AM EST [facility] Patient discharged. Unknown [address] [facility], [facility] [address] 10/07/2020 12:00:00 AM EST eCW1 ([facility]) Outpatient Attender: Iris Stokes PA-C 04/2020 01:33:00 PM EST - 10/06/2020 01:33:00 PM [facility] Unknown [address] [facility] [address] 10/01/2020 12:00:00 AM EST eCW1 ([facility]) Outpatient Attender: Iris Stokes PA-C 02/2020 03:10:00 PM EST - 09/04/2020 03:10:00 PM [facility] Outpatient Attender: Iris Stokes PA-C [facility] 02/2020 02:00:00 PM EST MEDENT ([facility] Unknown [address] [facility] [address] 08/29/2020 12:00:00 AM EDT eCW1 ([facility]) Outpatient Attender: Amie Clarke/Werner/Bladimir/Kun ndl 08/27/2020 01:00:00 PM EDT MEDENT ([facility]) Outpatient [address] [facility] [address] 08/27/2020 12:00:00 AM EDT eCW1 ([facility]) Unknown [address] [facility] [address] 08/27/2020 12:00:00 AM EDT eCW1 ([facility]) Unknown [address] [facility] [address] 08/27/2020 12:00:00 AM EDT eCW1 ([facility]) Outpatient Attender: Rebecca CARRASCO Main Office 08/22/2020 01:45:0 0 PM EDT MEDENT ([facility]) Unknown [address] [facility] [address] 08/22/2020 12:00:00 AM EDT eCW1 ([facility]) Unknown [address] [facility] [address] 08/21/2020 12:00:00 AM EDT eCW1 ([facility]) Unknown [address] [facility] [address] 08/18/2020 12:00:00 AM EDT eCW1 ([facility]) Unknown [address] [facility] [address] 08/11/2020 12:00:00 AM EDT eCW1 ([facility]) Unknown [address] [facility] [address] 08/11/2020 12:00:00 AM EDT eCW1 ([facility]) Unknown [address] [facility] [place] [address] 08/08/2020 12:00:00 AM EDT eCW1 ([facility]) Outpatient [address] [facility] [place] [address] 08/07/2020 12:00:00 AM EDT eCW1 ([facility]) Unknown [address] [facility] [address] 08/01/2020 12:00:00 AM EDT eCW1 ([facility]) Unknown [address] [facility], [facility] [address] 07/22/2020 12:00:00 AM EDT eCW1 ([facility]) Outpatient Attender: JIN WEAVER MD Main Office 05/15/2020 12:30:00 PM EDT MEDENT ([facility]) (TCM) Transition of Care Visit [address] [place] [address] 05/05/2020 12:00:00 AM EDT eCW1 ([facility]) Unknown [address] [facility] [address] 04/15/2020 12:00:00 AM EDT eCW1 ([facility]) TeleMedicine Phone E/M by Phys 11-[address] [place] [phone] 04/10/2020 12:00:00 AM EDT eCW1 ([facility]) Unknown [address] [facility] [address] 04/07/2020 12:00:00 AM EDT eCW1 ([facility]) [facility] [address] [place] [address] 03/26/2020 12:00:00 AM EDT eCW1 ([facility]) Outpatient [address] [facility] [address] 03/21/2020 12:00:00 AM EDT eCW1 ([facility]) Outpatient Attender: Amie Clarke/Werner/Bladimir/Kun ndl 03/19/2020 02:30:00 PM EDT MEDENT ([facility]) [facility] [address] [place] [phone] 03/14/2020 12:00:00 AM EDT eCW1 ([facility]) [facility] [address] [place] [address] 03/13/2020 12:00:00 AM EDT eCW1 ([facility]) [facility] [address] [place] [phone] 03/11/2020 12:00:00 AM EDT eCW1 ([facility]) [address] [place] [address] 03/07/2020 12:00:00 AM EDT eCW1 ([facility]) [address] [place] [address] 03/04/2020 12:00:00 AM EDT eCW1 ([facility]) [address] [place] [address] 02/26/2020 12:00:00 AM EDT eCW1 ([facility]) [address] [place] [address] 02/26/2020 12:00:00 AM EDT eCW1 ([facility]) [facility] [address] [place] [phone] 02/19/2020 12:00:00 AM EDT eCW1 ([facility]) [facility] [address] [place] [address] 02/18/2020 12:00:00 AM EDT eCW1 ([facility]) Outpatient Attender: Amie Clarke/Werner/Bladimir/Kun miranda 01/21/2020 11:00:00 AM EDT MEDENT ([facility]) [address] [place] [address] 01/21/2020 12:00:00 AM EDT eCW1 ([facility]) [address] [place] [address] 01/21/2020 12:00:00 AM EDT eCW1 ([facility]) [facility] [address] [place] [phone] 01/17/2020 12:00:00 AM EDT eCW1 ([facility]) [facility] [address] [place] [phone] 01/15/2020 12:00:00 AM EDT eCW1 ([facility]) [facility] Resident [address] [place] [phone] 01/07/2020 12:00:00 AM EDT eCW1 ([facility]) Outpatient 01/03/2020 03:10:00 PM EST [facility] [address] [address] 01/03/2020 12:00:00 AM EST eCW1 ([facility]) [address] [address] 01/03/2020 12:00:00 AM EST eCW1 ([facility]) [address] [address] 01/03/2020 12:00:00 AM EST eCW1 ([facility]) [facility] [address] [place] [phone] 01/01/2020 12:00:00 AM EST eCW1 ([facility]) [facility] [address] [place] [phone] 12/24/2019 12:00:00 AM EST eCW1 ([facility]) [facility] [address] [place] [phone] 12/14/2019 12:00:00 AM EST eCW1 ([facility]) [address] [address] 12/07/2019 12:00:00 AM EST eCW1 ([facility]) [address] [address] 12/03/2019 12:00:00 AM EST eCW1 ([facility]) [facility] Resident [address] [place] [phone] 12/03/2019 12:00:00 AM EST eCW1 ([facility]) [facility] [address] [place] [phone] 11/30/2019 12:00:00 AM EST eCW1 ([facility]) Outpatient Attender: Amie Clarke/Werner/Bladimir/Kun ndl 11/26/2019 08:00:00 AM EST MEDENT ([facility] [place] [place] [address] 11/20/2019 12:00:00 AM EST eCW1 ([facility]) [facility] [address] [place], [place] [phone] 11/16/2019 12:00:00 AM EST eCW1 ([facility]) [facility] [address] [place], [place] [phone] 11/16/2019 12:00:00 AM EST eCW1 ([facility]) [facility] [address] [place], [place] [phone] 11/13/2019 12:00:00 AM EST eCW1 ([facility]) Outpatient 11/09/2019 11:48:00 AM EST [facility] Outpatient Attender: Amie Clarke/Werner/Bladimir/Kun ndbrandy 11/01/2019 08:30:00 AM EST MEDENT ([facility]) Immunizations Vaccine Date Status Description Data Source(s) New in 2011. IIV4 09/04/2020 02:30:00 PM EST completed MEDENT ([facility]) Medications Medication Brand Name Start Date Product Form Dose Route Admi nistrative Instructions Pharmacy Instructions Status Indications Reaction Description Data Source(s) Albuterol Sulfate (2.5 MG/3ML) 0.083% Albuterol Sulfate 12:00:00 AM EST completed NETSMAR T ([facility]) Aspirin Adult Low Dose 81 MG Aspirin Adult Low Dose 12/16/2020 1 2:00:00 AM EST completed NETSMA RT ([facility]) Oxygen Oxygen 12/16/2020 12:00:00 AM EST 6.0 {L} comple liza NETSMART ([facility]) Spironolactone 25 MG Spironolactone 12/16/2020 12:00:00 AM EST completed NETSMART ([facility]) Bisoprolol Fumarate 5 MG Bisoprolol Fumarate 12/16/2020 12:00:00 AM EST 0.5 {tablet} completed NETSMART ([facility]) BuPROPion HCl 75 MG BuPROPion HCl 12/16/2020 12:00:00 AM EST completed NETSMART ([facility]) Atorvastatin Calcium 40 MG Atorvastatin Calcium 12/16/2020 12:00:00 A M EST completed NETSMART ( [facility]) Omeprazole 20 MG Omeprazole 12/16/2020 12:00:00 AM EST completed NETSMART ([facility] ) Torsemide 20 MG Torsemide 12/16/2020 12:00:00 AM EST completed NETSMART ([facility]) MetFORMIN HCl 500 MG MetFORMIN HCl 12/16/2020 12:00:00 AM EST completed NETSMART ([facility]) Pregabalin 75 MG Pregabalin 12/16/2020 12:00:00 AM EST completed NETSMART ([facility] ) Azithromycin 250 MG Azithromycin 12/16/2020 12:00:00 AM EST completed NETSMART ([facility]) Levothyroxine Sodium 50 MCG Levothyroxine Sodium 12/16/2020 12:00:00 AM EST completed NETSMART ( [facility]) Vitamin B-12 2500 MCG Vitamin B-12 12/16/2020 12:00:00 AM EST completed NETSMART ([facility]) 5 mg 11/12/2020 12:00:00 AM EST tablet 45 TAKE 1/2 TABLET BY MOUTH DAILY TAKE 1/2 TABLET BY MOUTH DAILY SOLD: 11/14/2020 [facility] CPAP 11/11/2020 12:00:00 AM EST active MEDENT ([facility] ) Acetaminophen 325 MG / Hydrocodone Alexus trate 5 MG Oral Tablet Hydrocodone- Acetaminophen 5-325 MG Hydrocodone-Acetaminophen 5-325 MG 11/10/2020 12:00:00 AM EST 1.0 {tablet_as_needed} active Hydrocodone-Acetaminophen 5-325 MG eCW1 ([facility]) Acetaminophen 325 MG / Hydrocodone Alexus trate 5 MG Oral Tablet Hydrocodone- Acetaminophen 5-325 MG Hydrocodone-Acetaminophen 5-325 MG 11/10/2020 12:00:00 AM EST 1.0 {tablet_as_needed} active Hydrocodone-Acetaminophen 5-325 MG eCW1 ([facility]) Acetaminophen 325 MG / Hydrocodone Alexus trate 5 MG Oral Tablet Hydrocodone- Acetaminophen 5-325 MG Hydrocodone-Acetaminophen 5-325 MG 11/10/2020 12:00:00 AM EST 1.0 {tablet_as_needed} active Hydrocodone-Acetaminophen 5-325 MG eCW1 ([facility]) 20 mg 11/10/2020 12:00:00 AM EST tablet 240 TAKE 4 TABLETS BY MOUTH EVERY MORNING TAKE 4 TABLETS BY MOUTH EVERY MORNING SOLD: 11/11/2020 [facility] Acetaminophen 325 MG / Hydrocodone Alexus trate 5 MG Oral Tablet Hydrocodone- Acetaminophen 5-325 MG Hydrocodone-Acetaminophen 5-325 MG 11/10/2020 12:00:00 AM EST 1.0 {tablet_as_needed} active Hydrocodone-Acetaminophen 5-325 MG eCW1 ([facility]) Acetaminophen 325 MG / Hydrocodone Alexus trate 5 MG Oral Tablet Hydrocodone- Acetaminophen 5-325 MG Hydrocodone-Acetaminophen 5-325 MG 11/10/2020 12:00:00 AM EST 1.0 {tablet_as_needed} active Hydrocodone-Acetaminophen 5-325 MG eCW1 ([facility]) 25 mg 10/29/2020 12:00:00 AM EST tablet [...] 1.0 {tablet_as_needed} active Hydrocodone-Acetaminophen 5-325 MG eCW1 ([facility]) Acetaminophen 325 MG / Hydrocodone Alexus trate 5 MG Oral Tablet Hydrocodone- Acetaminophen 5-325 MG Hydrocodone-Acetaminophen 5-325 MG 10/08/2020 12:00:00 AM EST 1.0 {tablet_as_needed} active Hydrocodone-Acetaminophen 5-325 MG eCW1 ([facility]) Oxygen Concentrator 10L With Tubing And Mask, ALL Supplies 10/06/2020 12:00:00 AM EST active MEDENT ([facility]) Cholecalciferol 68594 UNT Oral Tablet Vitamin D3 Ultra Poten cy 10/06/2020 12:00:00 AM EST ORAL active M EDENT ([facility]) 20 mg 09/30/2020 12:00:00 AM [...] 09/12/2020 12:00:00 AM EST ORAL active MEDENT ([facility]) 75 mg 09/12/2020 12:00:00 AM EST tablet 30 TAKE ONE TABLET BY MOUTH TWICE A DAY TAKE ONE TABLET BY MOUTH TWICE A DAY SOLD: 09/14/2020 Kourtney Allen Loratadine 10 MG Oral Tablet [Claritin] Claritin 09/04/2020 12:00:0 0 AM EST ORAL active MEDENT ([facility]) Belbuca 150 MCG Belbuca 150 MCG 09/01/2020 12:00:00 AM EST active Belbuca 150 MCG eCW1 ([facility]) Belbuca 150 MCG Belbuca 150 MCG 09/01/2020 12:00:00 AM EST active Belbuca 150 MCG eCW1 ([facility]) Belbuca 150 MCG Belbuca 150 MCG 09/01/2020 12:00:00 AM EST active Belbuca 150 MCG eCW1 ([facility]) Belbuca 150 MCG Belbuca 150 MCG 09/01/2020 12:00:00 AM EST active Belbuca 150 MCG eCW1 ([facility]) Belbuca 150 MCG Belbuca 150 MCG 09/01/2020 12:00:00 AM EST active Belbuca 150 MCG eCW1 ([facility]) Belbuca 150 MCG Belbuca 150 MCG 09/01/2020 12:00:00 AM EST active [place] 150 MCG eCW1 ([facility]) Belbuca 150 MCG Belbuca 150 MCG 09/01/2020 12:00:00 AM EST active [place] 150 MCG eCW1 ([facility]) Belbuca 150 MCG Belbuca 150 MCG 09/01/2020 12:00:00 AM EST active [place] 150 MCG eCW1 ([facility]) Belbuca 150 MCG Belbuca 150 MCG 09/01/2020 12:00:00 AM EST active [place] 150 MCG eCW1 ([facility]) Belbuca 150 MCG Belbuca 150 MCG 09/01/2020 12:00:00 AM EST active [place] 150 MCG eCW1 ([facility]) Belbuca 150 MCG Belbuca 150 MCG 09/01/2020 12:00:00 AM EST active [place] 150 MCG eCW1 ([facility]) Acetaminophen 325 MG / Hydrocodone Alexus trate 5 MG Oral Tablet Hydrocodone- Acetaminophen 5-325 MG Hydrocodone-Acetaminophen 5-325 MG 08/27/2020 12:00:00 AM EDT 1.0 {tablet_as_needed} active Hydrocodone-Acetaminophen 5-325 MG eCW1 ([facility]) 168 HR Buprenorphine 0.01 MG/HR Transdermal Patch [BuT rans] Butrans 10 MCG/HR Butrans 10 MCG/HR 08/27/2020 12:00:00 AM EDT 1.0 {patch_to_skin} active Butrans 10 MCG/HR eCW1 ([facility]) Acetaminophen 325 MG / Hydrocodone Alexus trate 5 MG Oral Tablet Hydrocodone- Acetaminophen 5-325 MG Hydrocodone-Acetaminophen 5-325 MG 08/27/2020 12:00:00 AM EDT 1.0 {tablet_as_needed} active Hydrocodone-Acetaminophen 5-325 MG eCW1 ([facility]) Acetaminophen 325 MG / Hydrocodone Alexus trate 5 MG Oral Tablet Hydrocodone- Acetaminophen 5-325 MG Hydrocodone-Acetaminophen 5-325 MG 08/27/2020 12:00:00 AM EDT 1.0 {tablet_as_needed} active Hydrocodone-Acetaminophen 5-325 MG eCW1 ([facility]) 168 HR Buprenorphine 0.01 MG/HR Transdermal Patch [BuT rans] Butrans 10 MCG/HR Butrans 10 MCG/HR 08/27/2020 12:00:00 AM EDT 1.0 {patch_to_skin} active Butrans 10 MCG/HR eCW1 ([facility]) 168 HR Buprenorphine 0.01 MG/HR Transdermal Patch [BuT rans] Butrans 10 MCG/HR Butrans 10 MCG/HR 08/27/2020 12:00:00 AM EDT 1.0 {patch_to_skin} active Butrans 10 MCG/HR eCW1 ([facility]) Acetaminophen 325 MG / Hydrocodone Alexus trate 5 MG Oral Tablet Hydrocodone- Acetaminophen 5-325 MG Hydrocodone-Acetaminophen 5-325 MG 08/27/2020 12:00:00 AM EDT 1.0 {tablet_as_needed} active Hydrocodone-Acetaminophen 5-325 MG eCW1 ([facility]) 168 HR Buprenorphine 0.01 MG/HR Transdermal Patch [BuT rans] Butrans 10 MCG/HR Butrans 10 MCG/HR 08/27/2020 12:00:00 AM EDT 1.0 {patch_to_skin} suspended Butrans 10 MCG/HR eCW1 ([facility]) Acetaminophen 325 MG / Hydrocodone Alexus trate 5 MG Oral Tablet Hydrocodone- Acetaminophen 5-325 MG Hydrocodone-Acetaminophen 5-325 MG 08/27/2020 12:00:00 AM EDT 1.0 {tablet_as_needed} active Hydrocodone-Acetaminophen 5-325 MG eCW1 ([facility]) Acetaminophen 325 MG / Hydrocodone Alexus trate 5 MG Oral Tablet Hydrocodone- Acetaminophen 5-325 MG Hydrocodone-Acetaminophen 5-325 MG 08/27/2020 12:00:00 AM EDT 1.0 {tablet_as_needed} active Hydrocodone-Acetaminophen 5-325 MG eCW1 ([facility]) Acetaminophen 325 MG / Hydrocodone Alexus trate 5 MG Oral Tablet Hydrocodone- Acetaminophen 5-325 MG Hydrocodone-Acetaminophen 5-325 MG 08/27/2020 12:00:00 AM EDT 1.0 {tablet_as_needed} active Hydrocodone-Acetaminophen 5-325 MG eCW1 ([facility]) 168 HR Buprenorphine 0.01 MG/HR Transdermal Patch [BuT rans] Butrans 10 MCG/HR Butrans 10 MCG/HR 08/27/2020 12:00:00 AM EDT 1.0 {patch_to_skin} active Butrans 10 MCG/HR eCW1 ([facility]) 168 HR Buprenorphine 0.01 MG/HR Transdermal Patch [BuT rans] Butrans 10 MCG/HR Butrans 10 MCG/HR 08/27/2020 12:00:00 AM EDT 1.0 {patch_to_skin} active Butrans 10 MCG/HR eCW1 ([facility]) 168 HR Buprenorphine 0.01 MG/HR Transdermal Patch [BuT rans] Butrans 10 MCG/HR Butrans 10 MCG/HR 08/27/2020 12:00:00 AM EDT 1.0 {patch_to_skin} active Butrans 10 MCG/HR eCW1 ([facility]) 168 HR Buprenorphine 0.01 MG/HR Transdermal Patch [BuT rans] Butrans 10 MCG/HR Butrans 10 MCG/HR 08/27/2020 12:00:00 AM EDT 1.0 {patch_to_skin} active Butrans 10 MCG/HR eCW1 ([facility]) 168 HR Buprenorphine 0.01 MG/HR Transdermal Patch [BuT rans] Butrans 10 MCG/HR Butrans 10 MCG/HR 08/27/2020 12:00:00 AM EDT 1.0 {patch_to_skin} active Butrans 10 MCG/HR eCW1 ([facility]) Prednisone 10 MG Oral Tablet Prednisone 08/27/2020 12:00:00 AM EDT ORAL completed MEDENT ([facility]) Acetaminophen 325 MG / Hydrocodone Alexus trate 5 MG Oral Tablet Hydrocodone- Acetaminophen 5-325 MG Hydrocodone-Acetaminophen 5-325 MG 08/27/2020 12:00:00 AM EDT 1.0 {tablet_as_needed} active Hydrocodone-Acetaminophen 5-325 MG eCW1 ([facility]) 168 HR Buprenorphine 0.01 MG/HR Transdermal Patch [BuT rans] Butrans 10 MCG/HR Butrans 10 MCG/HR 08/27/2020 12:00:00 AM EDT 1.0 {patch_to_skin} active Butrans 10 MCG/HR eCW1 ([facility]) 168 HR Buprenorphine 0.01 MG/HR Transdermal Patch [BuT rans] Butrans 10 MCG/HR Butrans 10 MCG/HR 08/27/2020 12:00:00 AM EDT 1.0 {patch_to_skin} active Butrans 10 MCG/HR eCW1 ([facility]) 168 HR Buprenorphine 0.01 MG/HR Transdermal Patch [BuT rans] Butrans 10 MCG/HR Butrans 10 MCG/HR 08/27/2020 12:00:00 AM EDT 1.0 {patch_to_skin} active Butrans 10 MCG/HR eCW1 ([facility]) Acetaminophen 325 MG / Hydrocodone Alexus trate 5 MG Oral Tablet Hydrocodone- Acetaminophen 5-325 MG Hydrocodone-Acetaminophen 5-325 MG 08/27/2020 12:00:00 AM EDT 1.0 {tablet_as_needed} active Hydrocodone-Acetaminophen 5-325 MG eCW1 ([facility]) 168 HR Buprenorphine 0.01 MG/HR Transdermal Patch [BuT rans] Butrans 10 MCG/HR Butrans 10 MCG/HR 08/27/2020 12:00:00 AM EDT 1.0 {patch_to_skin} active Butrans 10 MCG/HR eCW1 ([facility]) 168 HR Buprenorphine 0.01 MG/HR Transdermal Patch [BuT rans] Butrans 10 MCG/HR Butrans 10 MCG/HR 08/27/2020 12:00:00 AM EDT 1.0 {patch_to_skin} active Butrans 10 MCG/HR eCW1 ([facility]) 168 HR Buprenorphine 0.01 MG/HR Transdermal Patch [BuT rans] Butrans 10 MCG/HR Butrans 10 MCG/HR 08/27/2020 12:00:00 AM EDT 1.0 {patch_to_skin} active Butrans 10 MCG/HR eCW1 ([facility]) 168 HR Buprenorphine 0.01 MG/HR Transdermal Patch [BuT rans] Butrans 10 MCG/HR Butrans 10 MCG/HR 08/27/2020 12:00:00 AM EDT 1.0 {patch_to_skin} active Butrans 10 MCG/HR eCW1 ([facility]) Albuterol 0.83 MG/ML Inhalant Solution Albuterol Sulfate 1 12:00:00 AM EDT active MEDENT ([facility]) 0.3 ML Epinephrine 1 MG/ML Auto-Injector [Epipen] Epipen 2-P ak 08/21/2020 12:00:00 AM EDT active M EDENT ([facility]) 200 ACTUAT Albuterol 0.09 MG/ACTUAT Metered Dose Inhaler [Pr oAir] Proair HFA 08/21/2020 12:00:00 AM EDT ORAL active MEDENT ([facility]) pregabalin 75 MG Oral Capsule [Lyrica] Lyrica 08/21/2020 12:00:00 AM EDT ORAL active MEDENT ([facility]) Rolling Walker 1 UNK 08/14/2020 12:00:00 AM EDT active Rolling Walker 1 eCW1 ([facility]) Rolling Walker 1 UNK 08/14/2020 12:00:00 AM EDT active Rolling Walker 1 eCW1 ([facility]) Rolling Walker 1 UNK 08/14/2020 12:00:00 AM EDT active Rolling Walker 1 eCW1 ([facility]) Rolling Walker 1 UNK 08/14/2020 12:00:00 AM EDT active Rolling Walker 1 eCW1 ([facility]) Rolling Walker 1 UNK 08/14/2020 12:00:00 AM EDT active Rolling Walker 1 eCW1 ([facility]) Rolling Walker 1 UNK 08/14/2020 12:00:00 AM EDT active Rolling Walker 1 eCW1 ([facility]) Rolling Walker 1 UNK 08/14/2020 12:00:00 AM EDT active Rolling Walker 1 eCW1 ([facility]) Rolling Walker 1 UNK 08/14/2020 12:00:00 AM EDT active Rolling Walker 1 eCW1 ([facility]) Rolling Walker 1 UNK 08/14/2020 12:00:00 AM EDT active Rolling Walker 1 eCW1 ([facility]) Rolling Walker 1 UNK 08/14/2020 12:00:00 AM EDT active Rolling Walker 1 eCW1 ([facility]) Rolling Walker 1 UNK 08/14/2020 12:00:00 AM EDT active Rolling Walker 1 eCW1 ([facility]) Rolling Walker 1 UNK 08/14/2020 12:00:00 AM EDT active Rolling Walker 1 eCW1 ([facility]) Rolling Walker 1 K 08/14/2020 12:00:00 AM EDT active Rolling Walker 1 eCW1 ([facility]) Rolling Walker 1 UNK 08/14/2020 12:00:00 AM EDT active Rolling Walker 1 eCW1 ([facility]) Rolling Walker 1 UNK 08/14/2020 12:00:00 AM EDT active Rolling Walker 1 eCW1 ([facility]) Rolling Walker 1 UNK 08/14/2020 12:00:00 AM EDT active Rolling Walker 1 eCW1 ([facility]) Rolling Walker 1 UNK 08/14/2020 12:00:00 AM EDT active Rolling Walker 1 eCW1 ([facility]) Potassium Chloride 20 MEQ Extended Relea se Oral Tablet Potassium Chloride ER 20 MEQ Potassium Chloride ER 20 MEQ 08/07/2020 12:00:00 AM EDT 1.0 {tablet_with_food} active Potassium Chl oride ER 20 MEQ eCW1 ([facility]) Potassium Chloride 20 MEQ Extended Relea se Oral Tablet Potassium Chloride ER 20 MEQ Potassium Chloride ER 20 MEQ 08/07/2020 12:00:00 AM EDT 1.0 {tablet_with_food} active Potassium Chl oride ER 20 MEQ eCW1 ([facility]) Potassium Chloride 20 MEQ Extended Relea se Oral Tablet Potassium Chloride ER 20 MEQ Potassium Chloride ER 20 MEQ 08/07/2020 12:00:00 AM EDT 1.0 {tablet_with_food} active Potassium Chl oride ER 20 MEQ eCW1 ([facility]) Potassium Chloride 20 MEQ Extended Relea se Oral Tablet Potassium Chloride ER 20 MEQ Potassium Chloride ER 20 MEQ 08/07/2020 12:00:00 AM EDT 1.0 {tablet_with_food} active Potassium Chl oride ER 20 MEQ eCW1 ([facility]) Potassium Chloride 20 MEQ Extended Relea se Oral Tablet Potassium Chloride ER 20 MEQ Potassium Chloride ER 20 MEQ 08/07/2020 12:00:00 AM EDT 1.0 {tablet_with_food} active Potassium Chl oride ER 20 MEQ eCW1 ([facility]) Potassium Chloride 20 MEQ Extended Relea se Oral Tablet Potassium Chloride ER 20 MEQ Potassium Chloride ER 20 MEQ 08/07/2020 12:00:00 AM EDT 1.0 {tablet_with_food} active Potassium Chl oride ER 20 MEQ eCW1 ([facility]) Potassium Chloride 20 MEQ Extended Relea se Oral Tablet Potassium Chloride ER 20 MEQ Potassium Chloride ER 20 MEQ 08/07/2020 12:00:00 AM EDT 1.0 {tablet_with_food} active Potassium Chl oride ER 20 MEQ eCW1 ([facility]) Potassium Chloride 20 MEQ Extended Relea se Oral Tablet Potassium Chloride ER 20 MEQ Potassium Chloride ER 20 MEQ 08/07/2020 12:00:00 AM EDT 1.0 {tablet_with_food} active Potassium Chl oride ER 20 MEQ eCW1 ([facility]) Potassium Chloride 20 MEQ Extended Relea se Oral Tablet Potassium Chloride ER 20 MEQ Potassium Chloride ER 20 MEQ 08/07/2020 12:00:00 AM EDT 1.0 {tablet_with_food} active Potassium Chl oride ER 20 MEQ eCW1 ([facility]) Potassium Chloride 20 MEQ Extended Relea se Oral Tablet Potassium Chloride ER 20 MEQ Potassium Chloride ER 20 MEQ 08/07/2020 12:00:00 AM EDT 1.0 {tablet_with_food} active Potassium Chl oride ER 20 MEQ eCW1 ([facility]) Potassium Chloride 20 MEQ Extended Relea se Oral Tablet Potassium Chloride ER 20 MEQ Potassium Chloride ER 20 MEQ 08/07/2020 12:00:00 AM EDT 1.0 {tablet_with_food} active Potassium Chl oride ER 20 MEQ eCW1 ([facility]) Potassium Chloride 20 MEQ Extended Relea se Oral Tablet Potassium Chloride ER 20 MEQ Potassium Chloride ER 20 MEQ 08/07/2020 12:00:00 AM EDT 1.0 {tablet_with_food} active Potassium Chl oride ER 20 MEQ eCW1 ([facility]) Potassium Chloride 20 MEQ Extended Relea se Oral Tablet Potassium Chloride ER 20 MEQ Potassium Chloride ER 20 MEQ 08/07/2020 12:00:00 AM EDT 1.0 {tablet_with_food} active Potassium Chl oride ER 20 MEQ eCW1 ([facility]) Potassium Chloride 20 MEQ Extended Relea se Oral Tablet Potassium Chloride ER 20 MEQ Potassium Chloride ER 20 MEQ 08/07/2020 12:00:00 AM EDT 1.0 {tablet_with_food} active Potassium Chl oride ER 20 MEQ eCW1 ([facility]) Potassium Chloride 20 MEQ Extended Relea se Oral Tablet Potassium Chloride ER 20 MEQ Potassium Chloride ER 20 MEQ 08/07/2020 12:00:00 AM EDT 1.0 {tablet_with_food} active Potassium Chl oride ER 20 MEQ eCW1 ([facility]) Potassium Chloride 20 MEQ Extended Relea se Oral Tablet Potassium Chloride ER 20 MEQ Potassium Chloride ER 20 MEQ 08/07/2020 12:00:00 AM EDT 1.0 {tablet_with_food} active Potassium Chl oride ER 20 MEQ eCW1 ([facility]) Potassium Chloride 20 MEQ Extended Relea se Oral Tablet Potassium Chloride ER 20 MEQ Potassium Chloride ER 20 MEQ 08/07/2020 12:00:00 AM EDT 1.0 {tablet_with_food} active Potassium Chl oride ER 20 MEQ eCW1 ([facility]) Potassium Chloride 20 MEQ Extended Relea se Oral Tablet Potassium Chloride ER 20 MEQ Potassium Chloride ER 20 MEQ 08/07/2020 12:00:00 AM EDT 1.0 {tablet_with_food} active Potassium Chl oride ER 20 MEQ eCW1 ([facility]) Potassium Chloride 20 MEQ Extended Relea se Oral Tablet Potassium Chloride ER 20 MEQ Potassium Chloride ER 20 MEQ 08/07/2020 12:00:00 AM EDT 1.0 {tablet_with_food} active Potassium Chl oride ER 20 MEQ eCW1 ([facility]) icosapent ethyl 1000 MG Oral Capsule [Vascepa] Vascepa 05/15/2020 12:00:00 AM EDT ORAL active [facility] ([facility] Bisoprolol Fumarate 5 MG Oral Tablet Bisoprolol Fumarate 12:00:00 AM EDT ORAL active [facility] ([facility]) Azithromycin 250 MG Oral Tablet Azithromycin 05/14/2020 12:00:00 AM E DT ORAL active [facility] ([facility]) cetirizine hydrochloride 10 MG Oral Tablet Cetirizine HCL 05/14/2020 12:00:00 AM EDT ORAL active [facility] ([facility]) Omeprazole 20 MG Delayed Release Oral Capsule Omeprazole 05/14/2020 12:00:00 AM EDT ORAL active [facility] ([facility]) tizanidine 4 MG Oral Capsule Tizanidine HCL 05/14/2020 12:00:00 AM EDT ORAL active [facility] ([facility]) 24 HR Propranolol Hydrochloride 60 MG Extended Release Oral Capsule Propranolol HCL ER 05/14/2020 12:00:00 AM EDT ORAL completed [facility] ([facility]) Preservision Areds 2 05/14/2020 12:00:00 AM EDT ORAL active [facility] ([facility]) 12 HR Bupropion Hydrochloride 150 MG Extended Release Oral Tablet Bupropion HCL ER (SR) 05/14/2020 12:00:00 AM EDT ORAL active [facility] ([facility]) Metformin hydrochloride 500 MG Oral Tablet Metformin HCL 05/14/2020 12:00:00 AM EDT ORAL active [facility] ([facility]) Furosemide 20 MG Oral Tablet Furosemide 05/14/2020 12:00:00 AM EDT ORAL active [facility] ([facility]) Aspirin 81 MG Delayed Release Oral Tablet Aspirin 81 2019 12:00:00 AM EDT ORAL active [facility] ( [facility]) Lisinopril 2.5 MG Oral Tablet Lisinopril 05/14/2020 12:00:00 AM EDT ORAL active [facility] ([facility]) gabapentin 300 MG Oral Capsule Gabapentin 05/14/2020 12:00:00 AM EDT ORAL completed [facility] ([facility]) Vitamin B 12 0.5 MG Oral Tablet Vitamin B12 05/14/2020 12:00:00 AM EDT ORAL active [facility] ([facility]) Oxygen - Home 05/14/2020 12:00:00 AM EDT acti ve [facility] ([facility]) atorvastatin 40 MG Oral Tablet Atorvastatin Calcium 05/14/2020 1 2:00:00 AM EDT ORAL active [facility] ( [facility]) Sulfamethoxazole 400 MG / Trimethoprim 8 0 MG Oral Tablet Sulfamethoxazole- Trimethoprim 400-80 MG Sulfamethoxazole-Trimethoprim 400-80 MG 05/05/2020 12:00:00 AM EDT 1.0 {tablet} active Sulfamethoxazole-Trimethoprim 400-80 MG eCW1 ([facility]) Sulfamethoxazole 400 MG / Trimethoprim 8 0 MG Oral Tablet Sulfamethoxazole- Trimethoprim 400-80 MG Sulfamethoxazole-Trimethoprim 400-80 MG 05/05/2020 12:00:00 AM EDT 1.0 {tablet} active Sulfamethoxazole-Trimethoprim 400-80 MG eCW1 ([facility]) Albuterol 0.83 MG/ML Inhalant Solution Albuterol Sulfa te (2.5 MG/3ML) 0.083% Albuterol Sulfate (2.5 MG/3ML) 0.083% 04/25/2020 12:00:00 AM EDT 3.0 {ml} active Albuterol Sulfate (2.5 MG/3M L) 0.083% eCW1 ([facility]) Albuterol 0.83 MG/ML Inhalant Solution Albuterol Sulfa te (2.5 MG/3ML) 0.083% Albuterol Sulfate (2.5 MG/3ML) 0.083% 04/25/2020 12:00:00 AM EDT 3.0 {ml} active Albuterol Sulfate (2.5 MG/3M L) 0.083% eCW1 ([facility]) Albuterol 0.83 MG/ML Inhalant Solution Albuterol Sulfa te (2.5 MG/3ML) 0.083% Albuterol Sulfate (2.5 MG/3ML) 0.083% 04/25/2020 12:00:00 AM EDT 3.0 {ml} active Albuterol Sulfate (2.5 MG/3M L) 0.083% eCW1 ([facility]) Albuterol 0.83 MG/ML Inhalant Solution Albuterol Sulfa te (2.5 MG/3ML) 0.083% Albuterol Sulfate (2.5 MG/3ML) 0.083% 04/25/2020 12:00:00 AM EDT 3.0 {ml} active Albuterol Sulfate (2.5 MG/3M L) 0.083% eCW1 ([facility]) Albuterol 0.83 MG/ML Inhalant Solution Albuterol Sulfa te (2.5 MG/3ML) 0.083% Albuterol Sulfate (2.5 MG/3ML) 0.083% 04/25/2020 12:00:00 AM EDT 3.0 {ml} active Albuterol Sulfate (2.5 MG/3M L) 0.083% eCW1 ([facility]) Albuterol 0.83 MG/ML Inhalant Solution Albuterol Sulfa te (2.5 MG/3ML) 0.083% Albuterol Sulfate (2.5 MG/3ML) 0.083% 04/25/2020 12:00:00 AM EDT 3.0 {ml} active Albuterol Sulfate (2.5 MG/3M L) 0.083% eCW1 ([facility]) Albuterol 0.83 MG/ML Inhalant Solution Albuterol Sulfa te (2.5 MG/3ML) 0.083% Albuterol Sulfate (2.5 MG/3ML) 0.083% 04/25/2020 12:00:00 AM EDT 3.0 {ml} active Albuterol Sulfate (2.5 MG/3M L) 0.083% eCW1 ([facility]) Albuterol 0.83 MG/ML Inhalant Solution Albuterol Sulfa te (2.5 MG/3ML) 0.083% Albuterol Sulfate (2.5 MG/3ML) 0.083% 04/25/2020 12:00:00 AM EDT 3.0 {ml} active Albuterol Sulfate (2.5 MG/3M L) 0.083% eCW1 ([facility]) Albuterol 0.83 MG/ML Inhalant Solution Albuterol Sulfa te (2.5 MG/3ML) 0.083% Albuterol Sulfate (2.5 MG/3ML) 0.083% 04/25/2020 12:00:00 AM EDT 3.0 {ml} active Albuterol Sulfate (2.5 MG/3M L) 0.083% eCW1 ([facility]) Albuterol 0.83 MG/ML Inhalant Solution Albuterol Sulfa te (2.5 MG/3ML) 0.083% Albuterol Sulfate (2.5 MG/3ML) 0.083% 04/25/2020 12:00:00 AM EDT 3.0 {ml} active Albuterol Sulfate (2.5 MG/3M L) 0.083% eCW1 ([facility]) Albuterol 0.83 MG/ML Inhalant Solution Albuterol Sulfa te (2.5 MG/3ML) 0.083% Albuterol Sulfate (2.5 MG/3ML) 0.083% 04/25/2020 12:00:00 AM EDT 3.0 {ml} active Albuterol Sulfate (2.5 MG/3M L) 0.083% eCW1 ([facility]) Albuterol 0.83 MG/ML Inhalant Solution Albuterol Sulfa te (2.5 MG/3ML) 0.083% Albuterol Sulfate (2.5 MG/3ML) 0.083% 04/25/2020 12:00:00 AM EDT 3.0 {ml} active Albuterol Sulfate (2.5 MG/3M L) 0.083% eCW1 ([facility]) Albuterol 0.83 MG/ML Inhalant Solution Albuterol Sulfa te (2.5 MG/3ML) 0.083% Albuterol Sulfate (2.5 MG/3ML) 0.083% 04/25/2020 12:00:00 AM EDT 3.0 {ml} active Albuterol Sulfate (2.5 MG/3M L) 0.083% eCW1 ([facility]) Albuterol 0.83 MG/ML Inhalant Solution Albuterol Sulfa te (2.5 MG/3ML) 0.083% Albuterol Sulfate (2.5 MG/3ML) 0.083% 04/25/2020 12:00:00 AM EDT 3.0 {ml} active Albuterol Sulfate (2.5 MG/3M L) 0.083% eCW1 ([facility]) Albuterol 0.83 MG/ML Inhalant Solution Albuterol Sulfa te (2.5 MG/3ML) 0.083% Albuterol Sulfate (2.5 MG/3ML) 0.083% 04/25/2020 12:00:00 AM EDT 3.0 {ml} active Albuterol Sulfate (2.5 MG/3M L) 0.083% eCW1 ([facility]) Albuterol 0.83 MG/ML Inhalant Solution Albuterol Sulfa te (2.5 MG/3ML) 0.083% Albuterol Sulfate (2.5 MG/3ML) 0.083% 04/25/2020 12:00:00 AM EDT 3.0 {ml} active Albuterol Sulfate (2.5 MG/3M L) 0.083% eCW1 ([facility]) Albuterol 0.83 MG/ML Inhalant Solution Albuterol Sulfa te (2.5 MG/3ML) 0.083% Albuterol Sulfate (2.5 MG/3ML) 0.083% 04/25/2020 12:00:00 AM EDT 3.0 {ml} active Albuterol Sulfate (2.5 MG/3M L) 0.083% eCW1 ([facility]) Albuterol 0.83 MG/ML Inhalant Solution Albuterol Sulfa te (2.5 MG/3ML) 0.083% Albuterol Sulfate (2.5 MG/3ML) 0.083% 04/25/2020 12:00:00 AM EDT 3.0 {ml} active Albuterol Sulfate (2.5 MG/3M L) 0.083% eCW1 ([facility]) Albuterol 0.83 MG/ML Inhalant Solution Albuterol Sulfa te (2.5 MG/3ML) 0.083% Albuterol Sulfate (2.5 MG/3ML) 0.083% 04/25/2020 12:00:00 AM EDT 3.0 {ml} active Albuterol Sulfate (2.5 MG/3M L) 0.083% eCW1 ([facility]) Albuterol 0.83 MG/ML Inhalant Solution Albuterol Sulfa te (2.5 MG/3ML) 0.083% Albuterol Sulfate (2.5 MG/3ML) 0.083% 04/25/2020 12:00:00 AM EDT 3.0 {ml} active Albuterol Sulfate (2.5 MG/3M L) 0.083% eCW1 ([facility]) Albuterol 0.83 MG/ML Inhalant Solution Albuterol Sulfa te (2.5 MG/3ML) 0.083% Albuterol Sulfate (2.5 MG/3ML) 0.083% 04/25/2020 12:00:00 AM EDT 3.0 {ml} active Albuterol Sulfate (2.5 MG/3M L) 0.083% eCW1 ([facility]) 0.3 ML Epinephrine 1 MG/ML Auto-Injector [Epipen] EpiP en 2-Hank 0.3 MG/0.3ML EpiPen 2-Hank 0.3 MG/0.3ML 04/23/2020 12:00:00 AM EDT active EpiPen 2-Hank 0.3 MG/0.3ML eCW1 ([facility]) Furosemide 20 MG Oral Tablet Furosemide 20 MG 04/23/2020 12:00:00 AM E DT active Furosemide 20 MG eCW1 ([facility]) Omeprazole 20 MG Delayed Release Oral Capsule Omeprazole 20 MG 04/23/2020 12:00:00 AM EDT active Omeprazo le 20 MG eCW1 ([facility]) 0.3 ML Epinephrine 1 MG/ML Auto-Injector [Epipen] EpiP en 2-Hank 0.3 MG/0.3ML EpiPen 2-Hank 0.3 MG/0.3ML 04/23/2020 12:00:00 AM EDT active EpiPen 2-Hank 0.3 MG/0.3ML eCW1 ([facility]) 0.3 ML Epinephrine 1 MG/ML Auto-Injector [Epipen] EpiP en 2-Hank 0.3 MG/0.3ML EpiPen 2-Hank 0.3 MG/0.3ML 04/23/2020 12:00:00 AM EDT active EpiPen 2-Hank 0.3 MG/0.3ML eCW1 ([facility]) Furosemide 20 MG Oral Tablet Furosemide 20 MG 04/23/2020 12:00:00 AM E DT active Furosemide 20 MG eCW1 ([facility]) Omeprazole 20 MG Delayed Release Oral Capsule Omeprazole 20 MG 04/23/2020 12:00:00 AM EDT active Omeprazo le 20 MG eCW1 ([facility]) tizanidine 4 MG Oral Tablet Tizanidine HCl 4 MG Tizanidine H Cl 4 MG 04/23/2020 12:00:00 AM EDT active Tizanidi ne HCl 4 MG eCW1 ([facility]) Omeprazole 20 MG Delayed Release Oral Capsule Omeprazole 20 MG 04/23/2020 12:00:00 AM EDT active Omeprazo le 20 MG eCW1 ([facility]) Sulfamethoxazole 400 MG / Trimethoprim 8 0 MG Oral Tablet Sulfamethoxazole- Trimethoprim 400-80 MG Sulfamethoxazole-Trimethoprim 400-80 MG 04/23/2020 12:00:00 AM EDT 1.0 {tablet} suspended Sulfamethoxazole-Trimethoprim 400-80 MG eCW1 ([facility]) tizanidine 4 MG Oral Tablet Tizanidine HCl 4 MG Tizanidine H Cl 4 MG 04/23/2020 12:00:00 AM EDT active Tizanidi ne HCl 4 MG eCW1 ([facility]) 0.3 ML Epinephrine 1 MG/ML Auto-Injector [Epipen] EpiP en 2-Hank 0.3 MG/0.3ML EpiPen 2-Hank 0.3 MG/0.3ML 04/23/2020 12:00:00 AM EDT active EpiPen 2-Hank 0.3 MG/0.3ML eCW1 ([facility]) 0.3 ML Epinephrine 1 MG/ML Auto-Injector [Epipen] EpiP en 2-Hank 0.3 MG/0.3ML EpiPen 2-Hank 0.3 MG/0.3ML 04/23/2020 12:00:00 AM EDT active EpiPen 2-Hank 0.3 MG/0.3ML eCW1 ([facility]) Furosemide 20 MG Oral Tablet Furosemide 20 MG 04/23/2020 12:00:00 AM E DT active Furosemide 20 MG eCW1 ([facility]) Omeprazole 20 MG Delayed Release Oral Capsule Omeprazole 20 MG 04/23/2020 12:00:00 AM EDT active Omeprazo le 20 MG eCW1 ([facility]) 0.3 ML Epinephrine 1 MG/ML Auto-Injector [Epipen] EpiP en 2-Hank 0.3 MG/0.3ML EpiPen 2-Hank 0.3 MG/0.3ML 04/23/2020 12:00:00 AM EDT active EpiPen 2-Hank 0.3 MG/0.3ML eCW1 ([facility]) Omeprazole 20 MG Delayed Release Oral Capsule Omeprazole 20 MG 04/23/2020 12:00:00 AM EDT active Omeprazo le 20 MG eCW1 ([facility]) tizanidine 4 MG Oral Tablet Tizanidine HCl 4 MG Tizanidine H Cl 4 MG 04/23/2020 12:00:00 AM EDT active Tizanidi ne HCl 4 MG eCW1 ([facility]) Omeprazole 20 MG Delayed Release Oral Capsule Omeprazole 20 MG 04/23/2020 12:00:00 AM EDT active Omeprazo le 20 MG eCW1 ([facility]) tizanidine 4 MG Oral Tablet Tizanidine HCl 4 MG Tizanidine H Cl 4 MG 04/23/2020 12:00:00 AM EDT active Tizanidi ne HCl 4 MG eCW1 ([facility]) Omeprazole 20 MG Delayed Release Oral Capsule Omeprazole 20 MG 04/23/2020 12:00:00 AM EDT active Omeprazo le 20 MG eCW1 ([facility]) 0.3 ML Epinephrine 1 MG/ML Auto-Injector [Epipen] EpiP en 2-Hank 0.3 MG/0.3ML EpiPen 2-Hank 0.3 MG/0.3ML 04/23/2020 12:00:00 AM EDT active EpiPen 2-Hank 0.3 MG/0.3ML eCW1 ([facility]) tizanidine 4 MG Oral Tablet Tizanidine HCl 4 MG Tizanidine H Cl 4 MG 04/23/2020 12:00:00 AM EDT active Tizanidi ne HCl 4 MG eCW1 ([facility]) 0.3 ML Epinephrine 1 MG/ML Auto-Injector [Epipen] EpiP en 2-Hank 0.3 MG/0.3ML EpiPen 2-Hank 0.3 MG/0.3ML 04/23/2020 12:00:00 AM EDT active EpiPen 2-Hank 0.3 MG/0.3ML eCW1 ([facility]) Furosemide 20 MG Oral Tablet Furosemide 20 MG 04/23/2020 12:00:00 AM E DT active Furosemide 20 MG eCW1 ([facility]) Omeprazole 20 MG Delayed Release Oral Capsule Omeprazole 20 MG 04/23/2020 12:00:00 AM EDT active Omeprazo le 20 MG eCW1 ([facility]) tizanidine 4 MG Oral Tablet Tizanidine HCl 4 MG Tizanidine H Cl 4 MG 04/23/2020 12:00:00 AM EDT active Tizanidi ne HCl 4 MG eCW1 ([facility]) Furosemide 20 MG Oral Tablet Furosemide 20 MG 04/23/2020 12:00:00 AM E DT active Furosemide 20 MG eCW1 ([facility]) 0.3 ML Epinephrine 1 MG/ML Auto-Injector [Epipen] EpiP en 2-Hank 0.3 MG/0.3ML EpiPen 2-Hank 0.3 MG/0.3ML 04/23/2020 12:00:00 AM EDT active EpiPen 2-Hank 0.3 MG/0.3ML eCW1 ([facility]) 0.3 ML Epinephrine 1 MG/ML Auto-Injector [Epipen] EpiP en 2-Hank 0.3 MG/0.3ML EpiPen 2-Hank 0.3 MG/0.3ML 04/23/2020 12:00:00 AM EDT active EpiPen 2-Hank 0.3 MG/0.3ML eCW1 ([facility]) tizanidine 4 MG Oral Tablet Tizanidine HCl 4 MG Tizanidine H Cl 4 MG 04/23/2020 12:00:00 AM EDT active Tizanidi ne HCl 4 MG eCW1 ([facility]) Omeprazole 20 MG Delayed Release Oral Capsule Omeprazole 20 MG 04/23/2020 12:00:00 AM EDT active Omeprazo le 20 MG eCW1 ([facility]) 0.3 ML Epinephrine 1 MG/ML Auto-Injector [Epipen] EpiP en 2-Hank 0.3 MG/0.3ML EpiPen 2-Hank 0.3 MG/0.3ML 04/23/2020 12:00:00 AM EDT active EpiPen 2-Hank 0.3 MG/0.3ML eCW1 ([facility]) tizanidine 4 MG Oral Tablet Tizanidine HCl 4 MG Tizanidine H Cl 4 MG 04/23/2020 12:00:00 AM EDT active Tizanidi ne HCl 4 MG eCW1 ([facility]) Furosemide 20 MG Oral Tablet Furosemide 20 MG 04/23/2020 12:00:00 AM E DT active Furosemide 20 MG eCW1 ([facility]) Furosemide 20 MG Oral Tablet Furosemide 20 MG 04/23/2020 12:00:00 AM E DT active Furosemide 20 MG eCW1 ([facility]) tizanidine 4 MG Oral Tablet Tizanidine HCl 4 MG Tizanidine H Cl 4 MG 04/23/2020 12:00:00 AM EDT active Tizanidi ne HCl 4 MG eCW1 ([facility]) Furosemide 20 MG Oral Tablet Furosemide 20 MG 04/23/2020 12:00:00 AM E DT active Furosemide 20 MG eCW1 ([facility]) 0.3 ML Epinephrine 1 MG/ML Auto-Injector [Epipen] EpiP en 2-Hank 0.3 MG/0.3ML EpiPen 2-Hank 0.3 MG/0.3ML 04/23/2020 12:00:00 AM EDT active EpiPen 2-Hank 0.3 MG/0.3ML eCW1 ([facility]) 0.3 ML Epinephrine 1 MG/ML Auto-Injector [Epipen] EpiP en 2-Hank 0.3 MG/0.3ML EpiPen 2-Hank 0.3 MG/0.3ML 04/23/2020 12:00:00 AM EDT active EpiPen 2-Hank 0.3 MG/0.3ML eCW1 ([facility]) Furosemide 20 MG Oral Tablet Furosemide 20 MG 04/23/2020 12:00:00 AM E DT active Furosemide 20 MG eCW1 ([facility]) Prednisone 10 MG Oral Tablet PredniSONE 10 MG PredniSONE 10 MG 04/23/2020 12:00:00 AM EDT active PredniSO NE 10 MG eCW1 ([facility]) Prednisone 10 MG Oral Tablet PredniSONE 10 MG PredniSONE 10 MG 04/23/2020 12:00:00 AM EDT active PredniSO NE 10 MG eCW1 ([facility]) Furosemide 20 MG Oral Tablet Furosemide 20 MG 04/23/2020 12:00:00 AM E DT active Furosemide 20 MG eCW1 ([facility]) Omeprazole 20 MG Delayed Release Oral Capsule Omeprazole 20 MG 04/23/2020 12:00:00 AM EDT active Omeprazo le 20 MG eCW1 ([facility]) tizanidine 4 MG Oral Tablet Tizanidine HCl 4 MG Tizanidine H Cl 4 MG 04/23/2020 12:00:00 AM EDT active Tizanidi ne HCl 4 MG eCW1 ([facility]) tizanidine 4 MG Oral Tablet Tizanidine HCl 4 MG Tizanidine H Cl 4 MG 04/23/2020 12:00:00 AM EDT active Tizanidi ne HCl 4 MG eCW1 ([facility]) 0.3 ML Epinephrine 1 MG/ML Auto-Injector [Epipen] EpiP en 2-Hank 0.3 MG/0.3ML EpiPen 2-Hank 0.3 MG/0.3ML 04/23/2020 12:00:00 AM EDT active EpiPen 2-Hank 0.3 MG/0.3ML eCW1 ([facility]) tizanidine 4 MG Oral Tablet Tizanidine HCl 4 MG Tizanidine H Cl 4 MG 04/23/2020 12:00:00 AM EDT active Tizanidi ne HCl 4 MG eCW1 ([facility]) 0.3 ML Epinephrine 1 MG/ML Auto-Injector [Epipen] EpiP en 2-Hank 0.3 MG/0.3ML EpiPen 2-Hank 0.3 MG/0.3ML 04/23/2020 12:00:00 AM EDT active EpiPen 2-Hank 0.3 MG/0.3ML eCW1 ([facility]) tizanidine 4 MG Oral Tablet Tizanidine HCl 4 MG Tizanidine H Cl 4 MG 04/23/2020 12:00:00 AM EDT active Tizanidi ne HCl 4 MG eCW1 ([facility]) Furosemide 20 MG Oral Tablet Furosemide 20 MG 04/23/2020 12:00:00 AM E DT active Furosemide 20 MG eCW1 ([facility]) Omeprazole 20 MG Delayed Release Oral Capsule Omeprazole 20 MG 04/23/2020 12:00:00 AM EDT active Omeprazo le 20 MG eCW1 ([facility]) Omeprazole 20 MG Delayed Release Oral Capsule Omeprazole 20 MG 04/23/2020 12:00:00 AM EDT active Omeprazo le 20 MG eCW1 ([facility]) Furosemide 20 MG Oral Tablet Furosemide 20 MG 04/23/2020 12:00:00 AM E DT active Furosemide 20 MG eCW1 ([facility]) Omeprazole 20 MG Delayed Release Oral Capsule Omeprazole 20 MG 04/23/2020 12:00:00 AM EDT active Omeprazo le 20 MG eCW1 ([facility]) Furosemide 20 MG Oral Tablet Furosemide 20 MG 04/23/2020 12:00:00 AM E DT active Furosemide 20 MG eCW1 ([facility]) tizanidine 4 MG Oral Tablet Tizanidine HCl 4 MG Tizanidine H Cl 4 MG 04/23/2020 12:00:00 AM EDT active Tizanidi ne HCl 4 MG eCW1 ([facility]) Omeprazole 20 MG Delayed Release Oral Capsule Omeprazole 20 MG 04/23/2020 12:00:00 AM EDT active Omeprazo le 20 MG eCW1 ([facility]) Sulfamethoxazole 400 MG / Trimethoprim 8 0 MG Oral Tablet Sulfamethoxazole- Trimethoprim 400-80 MG Sulfamethoxazole-Trimethoprim 400-80 MG 04/23/2020 12:00:00 AM EDT 1.0 {tablet} suspended Sulfamethoxazole-Trimethoprim 400-80 MG eCW1 ([facility]) 0.3 ML Epinephrine 1 MG/ML Auto-Injector [Epipen] EpiP en 2-Hank 0.3 MG/0.3ML EpiPen 2-Hank 0.3 MG/0.3ML 04/23/2020 12:00:00 AM EDT active EpiPen 2-Hank 0.3 MG/0.3ML eCW1 ([facility]) Furosemide 20 MG Oral Tablet Furosemide 20 MG 04/23/2020 12:00:00 AM E DT active Furosemide 20 MG eCW1 ([facility]) tizanidine 4 MG Oral Tablet Tizanidine HCl 4 MG Tizanidine H Cl 4 MG 04/23/2020 12:00:00 AM EDT active Tizanidi ne HCl 4 MG eCW1 ([facility]) 0.3 ML Epinephrine 1 MG/ML Auto-Injector [Epipen] EpiP en 2-Hank 0.3 MG/0.3ML EpiPen 2-Hank 0.3 MG/0.3ML 04/23/2020 12:00:00 AM EDT active EpiPen 2-Hank 0.3 MG/0.3ML eCW1 ([facility]) Furosemide 20 MG Oral Tablet Furosemide 20 MG 04/23/2020 12:00:00 AM E DT active Furosemide 20 MG eCW1 ([facility]) tizanidine 4 MG Oral Tablet Tizanidine HCl 4 MG Tizanidine H Cl 4 MG 04/23/2020 12:00:00 AM EDT active Tizanidi ne HCl 4 MG eCW1 ([facility]) tizanidine 4 MG Oral Tablet Tizanidine HCl 4 MG Tizanidine H Cl 4 MG 04/23/2020 12:00:00 AM EDT active Tizanidi ne HCl 4 MG eCW1 ([facility]) tizanidine 4 MG Oral Tablet Tizanidine HCl 4 MG Tizanidine H Cl 4 MG 04/23/2020 12:00:00 AM EDT active Tizanidi ne HCl 4 MG eCW1 ([facility]) Omeprazole 20 MG Delayed Release Oral Capsule Omeprazole 20 MG 04/23/2020 12:00:00 AM EDT active Omeprazo le 20 MG eCW1 ([facility]) 0.3 ML Epinephrine 1 MG/ML Auto-Injector [Epipen] EpiP en 2-Hank 0.3 MG/0.3ML EpiPen 2-Hank 0.3 MG/0.3ML 04/23/2020 12:00:00 AM EDT active EpiPen 2-Hank 0.3 MG/0.3ML eCW1 ([facility]) Furosemide 20 MG Oral Tablet Furosemide 20 MG 04/23/2020 12:00:00 AM E DT active Furosemide 20 MG eCW1 ([facility]) 0.3 ML Epinephrine 1 MG/ML Auto-Injector [Epipen] EpiP en 2-Hank 0.3 MG/0.3ML EpiPen 2-Hank 0.3 MG/0.3ML 04/23/2020 12:00:00 AM EDT active EpiPen 2-Hank 0.3 MG/0.3ML eCW1 ([facility]) Furosemide 20 MG Oral Tablet Furosemide 20 MG 04/23/2020 12:00:00 AM E DT active Furosemide 20 MG eCW1 ([facility]) 0.3 ML Epinephrine 1 MG/ML Auto-Injector [Epipen] EpiP en 2-Hank 0.3 MG/0.3ML EpiPen 2-Hank 0.3 MG/0.3ML 04/23/2020 12:00:00 AM EDT active EpiPen 2-Hank 0.3 MG/0.3ML eCW1 ([facility]) 0.3 ML Epinephrine 1 MG/ML Auto-Injector [Epipen] EpiP en 2-Hank 0.3 MG/0.3ML EpiPen 2-Hank 0.3 MG/0.3ML 04/23/2020 12:00:00 AM EDT active EpiPen 2-Hank 0.3 MG/0.3ML eCW1 ([facility]) Furosemide 20 MG Oral Tablet Furosemide 20 MG 04/23/2020 12:00:00 AM E DT active Furosemide 20 MG eCW1 ([facility]) tizanidine 4 MG Oral Tablet Tizanidine HCl 4 MG Tizanidine H Cl 4 MG 04/23/2020 12:00:00 AM EDT active Tizanidi ne HCl 4 MG eCW1 ([facility]) Omeprazole 20 MG Delayed Release Oral Capsule Omeprazole 20 MG 04/23/2020 12:00:00 AM EDT active Omeprazo le 20 MG eCW1 ([facility]) Furosemide 20 MG Oral Tablet Furosemide 20 MG 04/23/2020 12:00:00 AM E DT active Furosemide 20 MG eCW1 ([facility]) Omeprazole 20 MG Delayed Release Oral Capsule Omeprazole 20 MG 04/23/2020 12:00:00 AM EDT active Omeprazo le 20 MG eCW1 ([facility]) Omeprazole 20 MG Delayed Release Oral Capsule Omeprazole 20 MG 04/23/2020 12:00:00 AM EDT active Omeprazo le 20 MG eCW1 ([facility]) Omeprazole 20 MG Delayed Release Oral Capsule Omeprazole 20 MG 04/23/2020 12:00:00 AM EDT active Omeprazo le 20 MG eCW1 ([facility]) Furosemide 20 MG Oral Tablet Furosemide 20 MG 04/23/2020 12:00:00 AM E DT active Furosemide 20 MG eCW1 ([facility]) Furosemide 20 MG Oral Tablet Furosemide 20 MG 04/23/2020 12:00:00 AM E DT active Furosemide 20 MG eCW1 ([facility]) tizanidine 4 MG Oral Tablet Tizanidine HCl 4 MG Tizanidine H Cl 4 MG 04/23/2020 12:00:00 AM EDT active Tizanidi ne HCl 4 MG eCW1 ([facility]) Omeprazole 20 MG Delayed Release Oral Capsule Omeprazole 20 MG 04/23/2020 12:00:00 AM EDT active Omeprazo le 20 MG eCW1 ([facility]) tizanidine 4 MG Oral Tablet Tizanidine HCl 4 MG Tizanidine H Cl 4 MG 04/23/2020 12:00:00 AM EDT active Tizanidi ne HCl 4 MG eCW1 ([facility]) Omeprazole 20 MG Delayed Release Oral Capsule Omeprazole 20 MG 04/23/2020 12:00:00 AM EDT active Omeprazo le 20 MG eCW1 ([facility]) Lisinopril 2.5 MG Oral Tablet Lisinopril 2.5 MG 04/16/2020 12:00:00 AM EDT 1.0 {tablet} active Lisinopril 2.5 MG eCW1 ([facility]) Lisinopril 2.5 MG Oral Tablet Lisinopril 2.5 MG 04/16/2020 12:00:00 AM EDT 1.0 {tablet} active Lisinopril 2.5 MG eCW1 ([facility]) Lisinopril 2.5 MG Oral Tablet Lisinopril 2.5 MG 04/16/2020 12:00:00 AM EDT 1.0 {tablet} active Lisinopril 2.5 MG eCW1 ([facility]) Lisinopril 2.5 MG Oral Tablet Lisinopril 2.5 MG 04/16/2020 12:00:00 AM EDT 1.0 {tablet} active Lisinopril 2.5 MG eCW1 ([facility]) Lisinopril 2.5 MG Oral Tablet Lisinopril 2.5 MG 04/16/2020 12:00:00 AM EDT 1.0 {tablet} active Lisinopril 2.5 MG eCW1 ([facility]) Lisinopril 2.5 MG Oral Tablet Lisinopril 2.5 MG 04/16/2020 12:00:00 AM EDT 1.0 {tablet} active Lisinopril 2.5 MG eCW1 ([facility]) Lisinopril 2.5 MG Oral Tablet Lisinopril 2.5 MG 04/16/2020 12:00:00 AM EDT 1.0 {tablet} active Lisinopril 2.5 MG eCW1 ([facility]) Lisinopril 2.5 MG Oral Tablet Lisinopril 2.5 MG 04/16/2020 12:00:00 AM EDT 1.0 {tablet} active Lisinopril 2.5 MG eCW1 ([facility]) Lisinopril 2.5 MG Oral Tablet Lisinopril 2.5 MG 04/16/2020 12:00:00 AM EDT 1.0 {tablet} active Lisinopril 2.5 MG eCW1 ([facility]) Lisinopril 2.5 MG Oral Tablet Lisinopril 2.5 MG 04/16/2020 12:00:00 AM EDT 1.0 {tablet} active Lisinopril 2.5 MG eCW1 ([facility]) Lisinopril 2.5 MG Oral Tablet Lisinopril 2.5 MG 04/16/2020 12:00:00 AM EDT 1.0 {tablet} active Lisinopril 2.5 MG eCW1 ([facility]) Lisinopril 2.5 MG Oral Tablet Lisinopril 2.5 MG 04/16/2020 12:00:00 AM EDT 1.0 {tablet} active Lisinopril 2.5 MG eCW1 ([facility]) Lisinopril 2.5 MG Oral Tablet Lisinopril 2.5 MG 04/16/2020 12:00:00 AM EDT 1.0 {tablet} active Lisinopril 2.5 MG eCW1 ([facility]) Lisinopril 2.5 MG Oral Tablet Lisinopril 2.5 MG 04/16/2020 12:00:00 AM EDT 1.0 {tablet} active Lisinopril 2.5 MG eCW1 ([facility]) Lisinopril 2.5 MG Oral Tablet Lisinopril 2.5 MG 04/16/2020 12:00:00 AM EDT 1.0 {tablet} active Lisinopril 2.5 MG eCW1 ([facility]) Lisinopril 2.5 MG Oral Tablet Lisinopril 2.5 MG 04/16/2020 12:00:00 AM EDT 1.0 {tablet} active Lisinopril 2.5 MG eCW1 ([facility]) Lisinopril 2.5 MG Oral Tablet Lisinopril 2.5 MG 04/16/2020 12:00:00 AM EDT 1.0 {tablet} active Lisinopril 2.5 MG eCW1 ([facility]) Lisinopril 2.5 MG Oral Tablet Lisinopril 2.5 MG 04/16/2020 12:00:00 AM EDT 1.0 {tablet} active Lisinopril 2.5 MG eCW1 ([facility]) Lisinopril 2.5 MG Oral Tablet Lisinopril 2.5 MG 04/16/2020 12:00:00 AM EDT 1.0 {tablet} active Lisinopril 2.5 MG eCW1 ([facility]) Lisinopril 2.5 MG Oral Tablet Lisinopril 2.5 MG 04/16/2020 12:00:00 AM EDT 1.0 {tablet} active Lisinopril 2.5 MG eCW1 ([facility]) Lisinopril 2.5 MG Oral Tablet Lisinopril 2.5 MG 04/16/2020 12:00:00 AM EDT 1.0 {tablet} active Lisinopril 2.5 MG eCW1 ([facility]) Lisinopril 2.5 MG Oral Tablet Lisinopril 2.5 MG 04/16/2020 12:00:00 AM EDT 1.0 {tablet} active Lisinopril 2.5 MG eCW1 ([facility]) Lisinopril 2.5 MG Oral Tablet Lisinopril 2.5 MG 04/16/2020 12:00:00 AM EDT 1.0 {tablet} active Lisinopril 2.5 MG eCW1 ([facility]) Acetaminophen 325 MG / Hydrocodone Alexus trate 5 MG Oral Tablet Hydrocodone- Acetaminophen 5-325 MG Hydrocodone-Acetaminophen 5-325 MG 02/26/2020 12:00:00 AM EDT active take 1 tablet eCW 1 ([facility]) Acetaminophen 325 MG / Hydrocodone Alexus trate 5 MG Oral Tablet Hydrocodone- Acetaminophen 5-325 MG Hydrocodone-Acetaminophen 5-325 MG 02/26/2020 12:00:00 AM EDT active take 1 tablet eCW 1 ([facility]) Acetaminophen 325 MG / Hydrocodone Alexus trate 5 MG Oral Tablet Hydrocodone- Acetaminophen 5-325 MG Hydrocodone-Acetaminophen 5-325 MG 02/26/2020 12:00:00 AM EDT suspended Hydrocodone-Ac etaminophen 5-325 MG eCW1 ([facility]) Acetaminophen 325 MG / Hydrocodone Alexus trate 5 MG Oral Tablet Hydrocodone- Acetaminophen 5-325 MG Hydrocodone-Acetaminophen 5-325 MG 02/26/2020 12:00:00 AM EDT suspended Hydrocodone-Ac etaminophen 5-325 MG eCW1 ([facility]) Acetaminophen 325 MG / Hydrocodone Alexus trate 5 MG Oral Tablet Hydrocodone- Acetaminophen 5-325 MG Hydrocodone-Acetaminophen 5-325 MG 02/26/2020 12:00:00 AM EDT suspended Hydrocodone-Ac etaminophen 5-325 MG eCW1 ([facility]) Acetaminophen 325 MG / Hydrocodone Alexus trate 5 MG Oral Tablet Hydrocodone- Acetaminophen 5-325 MG Hydrocodone-Acetaminophen 5-325 MG 02/26/2020 12:00:00 AM EDT suspended take 1 tablet eCW1 ([facility]) Acetaminophen 325 MG / Hydrocodone Alexus trate 5 MG Oral Tablet Hydrocodone- Acetaminophen 5-325 MG Hydrocodone-Acetaminophen 5-325 MG 02/26/2020 12:00:00 AM EDT suspended Hydrocodone-Ac etaminophen 5-325 MG eCW1 ([facility]) Acetaminophen 325 MG / Hydrocodone Alexus trate 5 MG Oral Tablet Hydrocodone- Acetaminophen 5-325 MG Hydrocodone-Acetaminophen 5-325 MG 02/26/2020 12:00:00 AM EDT active take 1 tablet eCW 1 ([facility]) Acetaminophen 325 MG / Hydrocodone Alexus trate 5 MG Oral Tablet Hydrocodone- Acetaminophen 5-325 MG Hydrocodone-Acetaminophen 5-325 MG 01/24/2020 12:00:00 AM EDT active take 1 tablet eCW 1 ([facility]) Acetaminophen 325 MG / Hydrocodone Alexus trate 5 MG Oral Tablet Hydrocodone- Acetaminophen 5-325 MG Hydrocodone-Acetaminophen 5-325 MG 01/24/2020 12:00:00 AM EDT active take 1 tablet eCW 1 ([facility]) Omeprazole 20 MG Delayed Release Oral Capsule Omeprazole 01/21/2020 12:00:00 AM EDT ORAL active MEDENT ([facility], ) Fluticasone Propionate Fluticasone Propionate 01/21/2020 12:00:00 AM E DT active MEDENT ([facility], ) cetirizine hydrochloride 10 MG Oral Tablet Cetirizine HCl 10 MG Cetirizine HCl 10 MG 01/07/2020 12:00:00 AM EDT active 1 tablet eCW1 ([facility]) cetirizine hydrochloride 10 MG Oral Tablet Cetirizine HCl 10 MG Cetirizine HCl 10 MG 01/07/2020 12:00:00 AM EDT 1.0 {tablet} activ e Cetirizine HCl 10 MG eCW1 ([facility]) cetirizine hydrochloride 10 MG Oral Tablet Cetirizine HCl 10 MG Cetirizine HCl 10 MG 01/07/2020 12:00:00 AM EDT 1.0 {tablet} activ e Cetirizine HCl 10 MG eCW1 ([facility]) cetirizine hydrochloride 10 MG Oral Tablet Cetirizine HCl 10 MG Cetirizine HCl 10 MG 01/07/2020 12:00:00 AM EDT 1.0 {tablet} activ e Cetirizine HCl 10 MG eCW1 ([facility]) cetirizine hydrochloride 10 MG Oral Tablet Cetirizine HCl 10 MG Cetirizine HCl 10 MG 01/07/2020 12:00:00 AM EDT 1.0 {tablet} activ e Cetirizine HCl 10 MG eCW1 ([facility]) cetirizine hydrochloride 10 MG Oral Tablet Cetirizine HCl 10 MG Cetirizine HCl 10 MG 01/07/2020 12:00:00 AM EDT 1.0 {tablet} activ e Cetirizine HCl 10 MG eCW1 ([facility]) cetirizine hydrochloride 10 MG Oral Tablet Cetirizine HCl 10 MG Cetirizine HCl 10 MG 01/07/2020 12:00:00 AM EDT 1.0 {tablet} activ e Cetirizine HCl 10 MG eCW1 ([facility]) cetirizine hydrochloride 10 MG Oral Tablet Cetirizine HCl 10 MG Cetirizine HCl 10 MG 01/07/2020 12:00:00 AM EDT 1.0 {tablet} activ e Cetirizine HCl 10 MG eCW1 ([facility]) cetirizine hydrochloride 10 MG Oral Tablet Cetirizine HCl 10 MG Cetirizine HCl 10 MG 01/07/2020 12:00:00 AM EDT 1.0 {tablet} activ e Cetirizine HCl 10 MG eCW1 ([facility]) cetirizine hydrochloride 10 MG Oral Tablet Cetirizine HCl 10 MG Cetirizine HCl 10 MG 01/07/2020 12:00:00 AM EDT 1.0 {tablet} activ e Cetirizine HCl 10 MG eCW1 ([facility]) cetirizine hydrochloride 10 MG Oral Tablet Cetirizine HCl 10 MG Cetirizine HCl 10 MG 01/07/2020 12:00:00 AM EDT 1.0 {tablet} activ e Cetirizine HCl 10 MG eCW1 ([facility]) cetirizine hydrochloride 10 MG Oral Tablet Cetirizine HCl 10 MG Cetirizine HCl 10 MG 01/07/2020 12:00:00 AM EDT 1.0 {tablet} activ e Cetirizine HCl 10 MG eCW1 ([facility]) cetirizine hydrochloride 10 MG Oral Tablet Cetirizine HCl 10 MG Cetirizine HCl 10 MG 01/07/2020 12:00:00 AM EDT 1.0 {tablet} activ e Cetirizine HCl 10 MG eCW1 ([facility]) cetirizine hydrochloride 10 MG Oral Tablet Cetirizine HCl 10 MG Cetirizine HCl 10 MG 01/07/2020 12:00:00 AM EDT 1.0 {tablet} activ e Cetirizine HCl 10 MG eCW1 ([facility]) cetirizine hydrochloride 10 MG Oral Tablet Cetirizine HCl 10 MG Cetirizine HCl 10 MG 01/07/2020 12:00:00 AM EDT active 1 tablet eCW1 ([facility]) cetirizine hydrochloride 10 MG Oral Tablet Cetirizine HCl 10 MG Cetirizine HCl 10 MG 01/07/2020 12:00:00 AM EDT 1.0 {tablet} activ e Cetirizine HCl 10 MG eCW1 ([facility]) cetirizine hydrochloride 10 MG Oral Tablet Cetirizine HCl 10 MG Cetirizine HCl 10 MG 01/07/2020 12:00:00 AM EDT 1.0 {tablet} activ e Cetirizine HCl 10 MG eCW1 ([facility]) cetirizine hydrochloride 10 MG Oral Tablet Cetirizine HCl 10 MG Cetirizine HCl 10 MG 01/07/2020 12:00:00 AM EDT 1.0 {tablet} activ e Cetirizine HCl 10 MG eCW1 ([facility]) cetirizine hydrochloride 10 MG Oral Tablet Cetirizine HCl 10 MG Cetirizine HCl 10 MG 01/07/2020 12:00:00 AM EDT 1.0 {tablet} activ e Cetirizine HCl 10 MG eCW1 ([facility]) cetirizine hydrochloride 10 MG Oral Tablet Cetirizine HCl 10 MG Cetirizine HCl 10 MG 01/07/2020 12:00:00 AM EDT 1.0 {tablet} activ e Cetirizine HCl 10 MG eCW1 ([facility]) cetirizine hydrochloride 10 MG Oral Tablet Cetirizine HCl 10 MG Cetirizine HCl 10 MG 01/07/2020 12:00:00 AM EDT active 1 tablet eCW1 ([facility]) cetirizine hydrochloride 10 MG Oral Tablet Cetirizine HCl 10 MG Cetirizine HCl 10 MG 01/07/2020 12:00:00 AM EDT 1.0 {tablet} activ e Cetirizine HCl 10 MG eCW1 ([facility]) cetirizine hydrochloride 10 MG Oral Tablet Cetirizine HCl 10 MG Cetirizine HCl 10 MG 01/07/2020 12:00:00 AM EDT active 1 tablet eCW1 ([facility]) cetirizine hydrochloride 10 MG Oral Tablet Cetirizine HCl 10 MG Cetirizine HCl 10 MG 01/07/2020 12:00:00 AM EDT 1.0 {tablet} activ e Cetirizine HCl 10 MG eCW1 ([facility]) cetirizine hydrochloride 10 MG Oral Tablet Cetirizine HCl 10 MG Cetirizine HCl 10 MG 01/07/2020 12:00:00 AM EDT 1.0 {tablet} activ e Cetirizine HCl 10 MG eCW1 ([facility]) cetirizine hydrochloride 10 MG Oral Tablet Cetirizine HCl 10 MG Cetirizine HCl 10 MG 01/07/2020 12:00:00 AM EDT active 1 tablet eCW1 ([facility]) cetirizine hydrochloride 10 MG Oral Tablet Cetirizine HCl 10 MG Cetirizine HCl 10 MG 01/07/2020 12:00:00 AM EDT 1.0 {tablet} activ e Cetirizine HCl 10 MG eCW1 ([facility]) cetirizine hydrochloride 10 MG Oral Tablet Cetirizine HCl 10 MG Cetirizine HCl 10 MG 01/07/2020 12:00:00 AM EDT 1.0 {tablet} activ e Cetirizine HCl 10 MG eCW1 ([facility]) cetirizine hydrochloride 10 MG Oral Tablet Cetirizine HCl 10 MG Cetirizine HCl 10 MG 01/07/2020 12:00:00 AM EDT 1.0 {tablet} activ e Cetirizine HCl 10 MG eCW1 ([facility]) cetirizine hydrochloride 10 MG Oral Tablet Cetirizine HCl 10 MG Cetirizine HCl 10 MG 01/07/2020 12:00:00 AM EDT 1.0 {tablet} activ e Cetirizine HCl 10 MG eCW1 ([facility]) Nystatin 100 UNT/MG Topical Powder Nystatin 828259 UNI T/GM Nystatin 848465 UNIT/GM 01/03/2020 12:00:00 AM EST 1.0 {application} active Nystatin 017553 UNIT/GM eCW1 ([facility]) Nystatin 100 UNT/MG Topical Powder Nystatin 383463 UNI T/GM Nystatin 445275 UNIT/GM 01/03/2020 12:00:00 AM EST active 1 application eCW1 ([facility]) Nystatin 100 UNT/MG Topical Powder Nystatin 500132 UNI T/GM Nystatin 321903 UNIT/GM 01/03/2020 12:00:00 AM EST active 1 application eCW1 ([facility]) Nystatin 100 UNT/MG Topical Powder Nystatin 735264 UNI T/GM Nystatin 267711 UNIT/GM 01/03/2020 12:00:00 AM EST 1.0 {application} active Nystatin 120665 UNIT/GM eCW1 ([facility]) Nystatin 100 UNT/MG Topical Powder Nystatin 277886 UNI T/GM Nystatin 997248 UNIT/GM 01/03/2020 12:00:00 AM EST 1.0 {application} active Nystatin 159507 UNIT/GM eCW1 ([facility]) Nystatin 100 UNT/MG Topical Powder Nystatin 338751 UNI T/GM Nystatin 009659 UNIT/GM 01/03/2020 12:00:00 AM EST 1.0 {application} active Nystatin 939685 UNIT/GM eCW1 ([facility]) Nystatin 100 UNT/MG Topical Powder Nystatin 756197 UNI T/GM Nystatin 140753 UNIT/GM 01/03/2020 12:00:00 AM EST 1.0 {application} active Nystatin 743125 UNIT/GM eCW1 ([facility]) Nystatin 100 UNT/MG Topical Powder Nystatin 712152 UNI T/GM Nystatin 232923 UNIT/GM 01/03/2020 12:00:00 AM EST 1.0 {application} active Nystatin 479420 UNIT/GM eCW1 ([facility]) Nystatin 100 UNT/MG Topical Powder Nystatin 378838 UNI T/GM Nystatin 989207 UNIT/GM 01/03/2020 12:00:00 AM EST 1.0 {application} active Nystatin 339925 UNIT/GM eCW1 ([facility]) Nystatin 100 UNT/MG Topical Powder Nystatin 245551 UNI T/GM Nystatin 438263 UNIT/GM 01/03/2020 12:00:00 AM EST 1.0 {application} active Nystatin 509617 UNIT/GM eCW1 ([facility]) Nystatin 100 UNT/MG Topical Powder Nystatin 227371 UNI T/GM Nystatin 053393 UNIT/GM 01/03/2020 12:00:00 AM EST 1.0 {application} active Nystatin 412987 UNIT/GM eCW1 ([facility]) Nystatin 100 UNT/MG Topical Powder Nystatin 808411 UNI T/GM Nystatin 604529 UNIT/GM 01/03/2020 12:00:00 AM EST 1.0 {application} active Nystatin 956210 UNIT/GM eCW1 ([facility]) Nystatin 100 UNT/MG Topical Powder Nystatin 551926 UNI T/GM Nystatin 780456 UNIT/GM 01/03/2020 12:00:00 AM EST active 1 application eCW1 ([facility]) Nystatin 100 UNT/MG Topical Powder Nystatin 685555 UNI T/GM Nystatin 589717 UNIT/GM 01/03/2020 12:00:00 AM EST 1.0 {application} active Nystatin 847654 UNIT/GM eCW1 ([facility]) Nystatin 100 UNT/MG Topical Powder Nystatin 237673 UNI T/GM Nystatin 570415 UNIT/GM 01/03/2020 12:00:00 AM EST 1.0 {application} active Nystatin 364006 UNIT/GM eCW1 ([facility]) Nystatin 100 UNT/MG Topical Powder Nystatin 502915 UNI T/GM Nystatin 282151 UNIT/GM 01/03/2020 12:00:00 AM EST 1.0 {application} active Nystatin 690363 UNIT/GM eCW1 ([facility]) Nystatin 100 UNT/MG Topical Powder Nystatin 955986 UNI T/GM Nystatin 260585 UNIT/GM 01/03/2020 12:00:00 AM EST 1.0 {application} active Nystatin 451239 UNIT/GM eCW1 ([facility]) Nystatin 100 UNT/MG Topical Powder Nystatin 475045 UNI T/GM Nystatin 124929 UNIT/GM 01/03/2020 12:00:00 AM EST 1.0 {application} active Nystatin 616269 UNIT/GM eCW1 ([facility]) Nystatin 100 UNT/MG Topical Powder Nystatin 182881 UNI T/GM Nystatin 029933 UNIT/GM 01/03/2020 12:00:00 AM EST 1.0 {application} active Nystatin 283986 UNIT/GM eCW1 ([facility]) Nystatin 100 UNT/MG Topical Powder Nystatin 839536 UNI T/GM Nystatin 815621 UNIT/GM 01/03/2020 12:00:00 AM EST 1.0 {application} active Nystatin 887475 UNIT/GM eCW1 ([facility]) Nystatin 100 UNT/MG Topical Powder Nystatin 443950 UNI T/GM Nystatin 053255 UNIT/GM 01/03/2020 12:00:00 AM EST 1.0 {application} active Nystatin 216525 UNIT/GM eCW1 ([facility]) Nystatin 100 UNT/MG Topical Powder Nystatin 138938 UNI T/GM Nystatin 029050 UNIT/GM 01/03/2020 12:00:00 AM EST 1.0 {application} active Nystatin 063443 UNIT/GM eCW1 ([facility]) Nystatin 100 UNT/MG Topical Powder Nystatin 621868 UNI T/GM Nystatin 309617 UNIT/GM 01/03/2020 12:00:00 AM EST 1.0 {application} active Nystatin 752360 UNIT/GM eCW1 ([facility]) Nystatin 100 UNT/MG Topical Powder Nystatin 366592 UNI T/GM Nystatin 465134 UNIT/GM 01/03/2020 12:00:00 AM EST active 1 application eCW1 ([facility]) Nystatin 100 UNT/MG Topical Powder Nystatin 125847 UNI T/GM Nystatin 776108 UNIT/GM 01/03/2020 12:00:00 AM EST 1.0 {application} active Nystatin 529776 UNIT/GM eCW1 ([facility]) Nystatin 100 UNT/MG Topical Powder Nystatin 772367 UNI T/GM Nystatin 628341 UNIT/GM 01/03/2020 12:00:00 AM EST 1.0 {application} active Nystatin 734280 UNIT/GM eCW1 ([facility]) Nystatin 100 UNT/MG Topical Powder Nystatin 811133 UNI T/GM Nystatin 933425 UNIT/GM 01/03/2020 12:00:00 AM EST 1.0 {application} active Nystatin 512233 UNIT/GM eCW1 ([facility]) Nystatin 100 UNT/MG Topical Powder Nystatin 421605 UNI T/GM Nystatin 102993 UNIT/GM 01/03/2020 12:00:00 AM EST 1.0 {application} active Nystatin 347469 UNIT/GM eCW1 ([facility]) Nystatin 100 UNT/MG Topical Powder Nystatin 037954 UNI T/GM Nystatin 336810 UNIT/GM 01/03/2020 12:00:00 AM EST 1.0 {application} active Nystatin 997678 UNIT/GM eCW1 ([facility]) Nystatin 100 UNT/MG Topical Powder Nystatin 788817 UNI T/GM Nystatin 700288 UNIT/GM 01/03/2020 12:00:00 AM EST active 1 application eCW1 ([facility]) Nystatin 100 UNT/MG Topical Powder Nystatin 859901 UNI T/GM Nystatin 488914 UNIT/GM 01/03/2020 12:00:00 AM EST active 1 application eCW1 ([facility]) Acetaminophen 325 MG / Hydrocodone Alexus trate 5 MG Oral Tablet Hydrocodone- Acetaminophen 5-325 MG Hydrocodone-Acetaminophen 5-325 MG 12/03/2019 12:00:00 AM EST active take 1 tablet eCW 1 ([facility]) Acetaminophen 325 MG / Hydrocodone Alexus trate 5 MG Oral Tablet Hydrocodone- Acetaminophen 5-325 MG Hydrocodone-Acetaminophen 5-325 MG 12/03/2019 12:00:00 AM EST active take 1 tablet eCW 1 ([facility]) Acetaminophen 325 MG / Hydrocodone Alexus trate 5 MG Oral Tablet Hydrocodone- Acetaminophen 5-325 MG Hydrocodone-Acetaminophen 5-325 MG 12/03/2019 12:00:00 AM EST active take 1 tablet eCW 1 ([facility]) Acetaminophen 325 MG / Hydrocodone Alexus trate 5 MG Oral Tablet Hydrocodone- Acetaminophen 5-325 MG Hydrocodone-Acetaminophen 5-325 MG 12/03/2019 12:00:00 AM EST active take 1 tablet eCW 1 ([facility]) 30 ACTUAT fluticasone furoate 0.2 MG/ACT UAT / vilanterol 0.025 MG/ACTUAT Dry Powder Inhaler [Breo] Breo Ellipta 11/22/2019 12:00:00 AM EST RESPIRATORY active MEDENT ([facility], ) Prednisone 10 MG Oral Tablet Prednisone 11/01/2019 12:00:00 AM EST ORAL completed MEDENT ([facility], ) Furosemide 20 MG Oral Tablet Furosemide 11/01/2019 12:00:00 AM EST ORAL active [facility] ([facility], ) 60 ACTUAT Budesonide 0.16 MG/ACTUAT / fo rmoterol fumarate 0.0045 MG/ACTUAT Metered Dose Inhaler [Symbicort] Symbicort 11/01/2019 12:00:00 AM EST RESPIRATORY completed MEDENT ( [facility], ) Insurance Providers Payer name Policy type / Coverage type Policy ID Covered democrat ID Covered democrat's relationship to knott Policy Knott Plan Information [facility] [id number] [place] [id number] [employer] GOLD [id number] SP [id number] MEDICARE [id number] SP [id number] [id number] MEDICARE C [id number] S [id number] [id number] 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 C hemical 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 Problem 12/16/2020 12:00:00 AM EST NETSMART ([facility]) T41.0X5S Adverse effect of inhaled anesthetics, s equela Adverse effect of inhaled anesthetics, sequela Problem 12/16/2020 12:00:00 AM EST NETS MART ([facility]) 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 Problem 12/16/2020 12:00:00 AM EST NETSMART ([facility]) I11.0 Hypertensive heart disease with heart fa ilure Hypertensive heart disease with heart failure Problem 12/16/2020 12:00:00 AM EST NETSMART ([facility]) I50.9 Heart failure, unspecified Heart failure, unspecified Problem 12/16/2020 12:00:00 AM EST NETSMART ([facility] ) I27.20 Pulmonary hypertension, unspecified Pulmonary hy pertension, unspecified Problem 12/16/2020 12:00:00 AM EST NETSMART ([facility]) M54.5 Low back pain Low back pain Problem 12/16/2020 12:00:00 AM EST NETSMART ([facility]) F33.9 Major depressive disorder, recurrent, un specified Major depressive disorder, recurrent, unspecified Problem 12/16/2020 12:00:00 AM EST NETSMART ([facility]) Z99.81 Dependence on supplemental oxygen Dependence on supplemental oxygen Problem 12/16/2020 12:00:00 AM EST NETSMART ([facility]) 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 Problem 12/16/2020 12:00:00 AM EST NE TSMART ([facility]) 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 (cu rrent) use of aspirin Problem 12/16/2020 12:00:00 AM EST NETSMART ([facility]) Z95.5 Presence of coronary angioplasty implant and graft Presence of coronary angioplasty implant and graft Problem 12/16/2020 12:00:00 AM EST NET SMART ([facility]) Z91.81 History of falling History of falling Problem 12:00:00 AM EST NETSMART ([facility]) Z87.891 Personal history of nicotine dependence Personal history of nicotine dependence Problem 12/16/2020 12:00:00 AM EST NETSMART ([facility]) J44.9 Chronic obstructive pulmonary disease, u nspecified Chronic obstructive pulmonary disease, unspecified Problem 12/16/2020 12:00:00 AM EST NE TSMART ([facility]) J44.9 Chronic obstructive pulmonary disease, u nspecified Chronic obstructive pulmonary disease, unspecified Problem 12/11/2020 12:00:00 AM EST NE TSMART ([facility]) [id number] Allergic rhinitis Allergic rhinitis Problem 09/04/2020 12:00:00 AM EST MEDENT ([facility]) [id number] Patient post percutaneous transluminal c oronary angioplasty Patient post percutaneous transluminal coronary angioplasty Problem 12:00:00 AM EST MEDENT ([facility]) [id number] Essential hypertension Essential hypertension Problem 09/04/2020 12:00:00 AM EST MEDENT ([facility]) [id number] Edema Edema Problem 09/04/2020 12:00:00 AM ES T MEDENT ([facility]) [id number] Low back pain Low back pain Problem 09/04/2020 12:00:00 AM EST MEDENT ([facility]) [id number] Recurrent major depressive episodes Recu rrent major depressive episodes Problem 09/04/2020 12:00:00 AM EST [facility]ENT ([facility]) [id number] Hyperlipidemia Hyperlipidemia Problem 09/04/2020 12:00: 00 AM EST MEDENT ([facility]) 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 Problem 09/04/2020 12:00:00 AM EST MEDENT ([facility]) M81.8 [id number] Secondary osteoporosis Problem 08/07/2020 12 :00:00 AM EDT eCW1 ([facility]) [id number] Chronic diastolic heart failure Chronic diastoli c heart failure Problem 05/15/2020 12:00:00 AM EDT [facility] ([facility]) [id number] Mixed hyperlipidemia Mixed hyperlipidemia Problem 05/15/2020 12:00:00 AM EDT [facility] ([facility]) [id number] 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 Coronary arteriosclerosis in patient wit h history of previous myocardial infarction Problem 05/15/2020 12:00:00 AM EDT ME DENT ([facility]) [id number] Dietary management surveillance Dietary manageme nt surveillance Problem 05/15/2020 12:00:00 AM EDT [facility] ([facility]) [id number] Obesity Obesity Problem 05/15/2020 12:00:00 AM ED T [facility] ([facility]) [id number] Hyperlipidemia Hyperlipidemia Problem 05/15/2020 12:00: 00 AM EDT [facility] ([facility]) [id number] Chronic right-sided heart failure Chronic right- sided heart failure Problem 05/15/2020 12:00:00 AM EDT [facility] ([facility]) [id number] Essential hypertension Essential hypertension Problem 05/15/2020 12:00:00 AM EDT [facility] ([facility]) [id number] Patient post percutaneous transluminal c oronary angioplasty Patient post percutaneous transluminal coronary angioplasty Problem 12:00:00 AM EDT [facility] ([facility]) [id number] Old myocardial infarction Old myocardial infarction Pr oblem 05/15/2020 12:00:00 AM EDT [facility] ([facility]) I27.81 [id number] Cor pulmonale Problem 05/05/2020 12:00:00 AM EDT eCW1 ([facility]) Z91.030 [id number] Bee sting allergy Problem 04/09/2020 12:00:0 0 AM EDT eCW1 ([facility]) M48.061 [id number] Lumbar spinal stenosis Problem 03/26/2020 12 :00:00 AM EDT eCW1 ([facility]) M48.061 [id number] Lumbar spinal stenosis Problem 03/26/2020 12 :00:00 AM EDT eCW1 ([facility]) M48.062 [id number] Spinal stenosis of lumbar region with neurogenic claudication Problem 02/20/2020 12:00:00 AM EDT eCW1 ([facility]) M48.062 [id number] Spinal stenosis of lumbar region with neurogenic claudication Problem 02/20/2020 12:00:00 AM EDT eCW1 ([facility]) J30.2 [id number] Seasonal allergies Problem 01/07/2020 12:00: 00 AM EDT eCW1 ([facility]) J30.2 [id number] Seasonal allergies Problem 01/07/2020 12:00: 00 AM EDT eCW1 ([facility]) M79.18 50864494 Myalgia, other site Problem 10/26/2019 12:00 :00 AM EST eCW1 ([facility]) M51.16 [id number] Intervertebral disc disorders with radiculopathy, lumbar region Problem 10/26/2019 12:00:00 AM EST eCW1 ([facility]) M54.40 [id number] Lumbago with sciatica, unspecified side P roblem 10/26/2019 12:00:00 AM EST eCW1 ([facility]) M51.16 [id number] Intervertebral disc disorders with radiculopathy, lumbar region Problem 10/26/2019 12:00:00 AM EST eCW1 ([facility]) M54.40 [id number] Lumbago with sciatica, unspecified side P roblem 10/26/2019 12:00:00 AM EST eCW1 ([facility]) M79.18 [id number] Myalgia, other site Problem 10/26/2019 12:00 :00 AM EST eCW1 ([facility]) I2720 Pulmonary hypertension, unspecified Pulmonary hy pertension, unspecified Diagnosis 11/24/2020 11:03:00 AM EST [facility] I509 Heart failure, unspecified Heart failure, unspecified Diagnosis 11/24/2020 11:03:00 AM [facility] 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 C hemical 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 Diagnosis 11/24/2020 11:03:00 AM [facility] E860 Dehydration Dehydration Diagnosis 11/24/2020 11:03:00 AM [facility] J449 Chronic obstructive pulmonary disease, u nspecified Chronic obstructive pulmonary disease, unspecified Diagnosis 11/24/2020 11:03:00 AM [facility] D509 Iron deficiency anemia, unspecified Iron deficie ncy anemia, unspecified Diagnosis 10/17/2020 01:13:00 PM [facility] Z23 Encounter for immunization Encounter for immunization Diagnosis 09/04/2020 03:10:00 PM [facility] M8580 Other specified disorders of bone densit y and structure, unspecified site Other specified disorders of bone density and structure, unspecified site Diagnosis 09/04/2020 03:10:00 PM [facility] K219 Gastro-esophageal reflux disease without esophagitis Gastro-esophageal reflux disease without esophagitis Diagnosis 09/04/2020 03:10:00 PM [facility] E785 Hyperlipidemia, unspecified Hyperlipidemia, unspecifie d Diagnosis 09/04/2020 03:10:00 PM [facility] F339 Major depressive disorder, recurrent, un specified Major depressive disorder, recurrent, unspecified Diagnosis 09/04/2020 03:10:00 PM [facility] M545 Low back pain Low back pain Diagnosis 09/04/2020 03:10:00 PM [facility] R600 Localized edema Localized edema Diagnosis 09/04/2020 03:1 0:00 PM [facility] E119 Type 2 diabetes mellitus without complic ations Type 2 diabetes mellitus without complications Diagnosis 09/04/2020 03:10:00 PM [facility] I10 Essential (primary) hypertension Essential (primary) h ypertension Diagnosis 09/04/2020 03:10:00 PM [facility] Z955 Presence of coronary angioplasty implant and graft Presence of coronary angioplasty implant and graft Diagnosis 09/04/2020 03:10:00 PM [facility] J309 Allergic rhinitis, unspecified Allergic rhinitis, unsp ecified Diagnosis 09/04/2020 03:10:00 PM [facility] Surgeries/Procedures Procedure Description Date Indications Data Source(s) Brief Emotional/Behav Assessment W/ Scoring Doc Per Standard Inst 09/04/2020 12:00:00 AM EST [facility] ([facility]) Admin Patient Focused Health Risk Assessment Instrument 09/04/2020 12:00:00 AM EST [facility] ([facility]) Spirometry 08/27/2020 12:00:00 AM [facility]T [facility] MYOCARDIAL SPECT MULTIPLE STUDIES 06/03/2020 12:00:00 AM EDT [facility] ([facility]) CV STRS TST XERS&/OR RX CONT ECG PHYS SI&R 06/03/2020 12:00:00 AM EDT [facility] ([facility]) ECG ROUTINE ECG W/LEAST 12 LDS W/I&R 05/15/2020 12:00: 00 AM EDT [facility] ([facility]) Arterial Pressure Waveform Analysis For Assessment Of Centra l Art 05/15/2020 12:00:00 AM EDT [facility] ([facility]) Lumbar/Sacral w/ Imaging 03/26/2020 12:00:00 AM EDT eCW1 ([facility]) ESTABILISHED PATIENT [facility] CHARGE 020 12:00:00 AM EDT eCW1 ([facility]) Bronchospasm Evaluation 03/12/2020 12:00:00 AM EDT [facility] ([facility], ) Maximum Breathing Capacity, Maximal Voluntary Ventilation 03/12/2020 12:00:00 AM EDT [facility] ([facility], ) Plethysmography Determination Lung Volumes & Per Airway Resi st 03/12/2020 12:00:00 AM EDT [facility] ([facility], ) DIFFUSING CAPACITY 03/12/2020 12:00:00 AM EDT [facility] ([facility], ) PHYSICIAN TELEPHONE EVALUATION 11-20 MIN 03/11/2020 12 :00:00 AM EDT eCW1 ([facility]) RADXPS IN END [id number] PXD 01/01/2020 12:00:00 AM ES T eCW1 ([facility]) Office Visit, Est Pt., Level 2 FC 12/03/2019 12:00:00 AM EST eCW1 ([facility]) Office Visit, Est Pt., Level 3 PC 12/03/2019 12:00:00 AM EST eCW1 ([facility]) Aerosol Or Vapor Inhalations 11/26/2019 12:00:00 AM ES T [facility] ([facility], ) Spirometry 11/01/2019 12:00:00 AM EST M [facility] ([facility], ) Aerosol Or Vapor Inhalations 11/01/2019 12:00:00 AM ES T [facility] ([facility], ) Results ID Date Data Source [id number] 11/17/2020 02:46:00 AM EST [facility] Name Value Range Interpretation Code Description Data Debi rce(s) Supporting Document(s) SARS coronavirus 2 RNA [Presence] in Res piratory specimen by NAV with probe detection NEGATIVE [facility] This lab was ordered by [facility] a nd reported by [facility]. ID Date Data Source [id number] 10/17/2020 01:21:00 PM EST [facility] ([facility]) Name Value Range Interpretation Code Description Data Debi rce(s) Supporting Document(s) Iron 70 ug/dL 42-135 [facility] ([facility]) FASTING 12 HOUR~.~.~<DG1.3.1>Z00.01</DG1.3.1><DG1.3.1>I10</DG1.3.1><DG1.3.1>E11.9</DG1.3.1> <DG1.3 Uibc 224 ug/dL 112-347 [facility] ([facility]) FASTING 12 HOUR~.~.~<DG1.3.1>Z00.01</DG1.3.1><DG1.3.1>I10</DG1.3.1><DG1.3.1>E11.9</DG1.3.1> <DG1.3 Iron Sat 24 % [facility] ([facility]) FASTING 12 HOUR~.~.~<DG1.3.1>Z00.01</DG1.3.1><DG1.3.1>I10</DG1.3.1><DG1.3.1>E11.9</DG1.3.1> <DG1.3 Tibc 294 ug/dL 250-450 [facility] ([facility]) FASTING 12 HOUR~.~.~<DG1.3.1>Z00.01</DG1.3.1><DG1.3.1>I10</DG1.3.1><DG1.3.1>E11.9</DG1.3.1> <DG1.3 ID Date Data Source [id number] 10/17/2020 01:21:00 PM EST [facility] ([facility]) Name Value Range Interpretation Code Description Data Debi rce(s) Supporting Document(s) Calcidiol [Mass/volume] in Serum or Plasma 27 ng/mL [facility] ([facility]) FASTING 12 HOUR~.~.~<DG1.3.1>Z00.01</DG1.3.1><DG1.3.1>I10</DG1.3.1><DG1.3.1>E11.9</DG1.3.1> <DG1.3 Hemoglobin A1c/Hemoglobin.total in Blood 5.8 % 4.4-6.1 [facility] ([facility]) FASTING 12 HOUR~.~.~<DG1.3.1>Z00.01</DG1.3.1><DG1.3.1>I10</DG1.3.1><DG1.3.1>E11.9</DG1.3.1> <DG1.3 Thyrotropin [Units/volume] in Serum or Plasma 3.37 uIU/mL 0.47-5.01 [facility] ([facility]) FASTING 12 HOUR~.~.~<DG1.3.1>Z00.01</DG1.3.1><DG1.3.1>I10</DG1.3.1><DG1.3.1>E11.9</DG1.3.1> <DG1.3 Thyroxine (T4) free [Mass/volume] in Serum or Plasma 1.28 ng/dL 0.93- 1.70 [facility] ([facility]) FASTING 12 HOUR~.~.~<DG1.3.1>Z00.01</DG1.3.1><DG1.3.1>I10</DG1.3.1><DG1.3.1>E11.9</DG1.3.1> <DG1.3 ID Date Data Source [id number] 10/17/2020 01:21:00 PM EST [facility] ([facility]) Name Value Range Interpretation Code Description Data Debi rce(s) Supporting Document(s) Cholesterol 115 mg/dL 131-200 Below low normal [facility] ([facility]) FASTING 12 HOUR~.~.~<DG1.3.1>Z00.01</DG1.3.1><DG1.3.1>I10</DG1.3.1><DG1.3.1>E11.9</DG1.3.1> <DG1.3 Cve Panel Laboratory test result [facility] ([facility]) FASTING 12 HOUR~.~.~<DG1.3.1>Z00.01</DG1.3.1><DG1.3.1>I10</DG1.3.1><DG1.3.1>E11.9</DG1.3.1> <DG1.3 LDL 59 mg/dL 65-175 Below low normal [facility] ([facility]) FASTING 12 HOUR~.~.~<DG1.3.1>Z00.01</DG1.3.1><DG1.3.1>I10</DG1.3.1><DG1.3.1>E11.9</DG1.3.1> <DG1.3 Triglycerides 183 mg/dL 35-160 Above high normal [facility] ([facility]) FASTING 12 HOUR~.~.~<DG1.3.1>Z00.01</DG1.3.1><DG1.3.1>I10</DG1.3.1><DG1.3.1>E11.9</DG1.3.1> <DG1.3 HDL 30 mg/dL 29-86 [facility] ([facility]) FASTING 12 HOUR~.~.~<DG1.3.1>Z00.01</DG1.3.1><DG1.3.1>I10</DG1.3.1><DG1.3.1>E11.9</DG1.3.1> <DG1.3 LDL/HDL 1.97 1.47-3.22 [facility] ([facility]) FASTING 12 HOUR~.~.~<DG1.3.1>Z00.01</DG1.3.1><DG1.3.1>I10</DG1.3.1><DG1.3.1>E11.9</DG1.3.1> <DG1.3 Risk Factor 3.8 3.2-4.4 [facility] ([facility]) FASTING 12 HOUR~.~.~<DG1.3.1>Z00.01</DG1.3.1><DG1.3.1>I10</DG1.3.1><DG1.3.1>E11.9</DG1.3.1> <DG1.3 ID Date Data Source [id number] 10/17/2020 01:21:00 PM EST [facility] ([facility]) Name Value Range Interpretation Code Description Data Debi rce(s) Supporting Document(s) Comprehensive [employer] Laboratory test result [facility] ([facility]) FASTING 12 HOUR~.~.~<DG1.3.1>Z00.01</DG1.3.1><DG1.3.1>I10</DG1.3.1><DG1.3.1>E11.9</DG1.3.1> <DG1.3 Potassium 4.1 meq/L 3.6-5.0 [facility] ([facility]) FASTING 12 HOUR~.~.~<DG1.3.1>Z00.01</DG1.3.1><DG1.3.1>I10</DG1.3.1><DG1.3.1>E11.9</DG1.3.1> <DG1.3 Sodium 142 meq/L 134-153 [facility] ([facility]) FASTING 12 HOUR~.~.~<DG1.3.1>Z00.01</DG1.3.1><DG1.3.1>I10</DG1.3.1><DG1.3.1>E11.9</DG1.3.1> <DG1.3 Glucose 70 mg/dL 65-110 [facility] ([facility]) FASTING 12 HOUR~.~.~<DG1.3.1>Z00.01</DG1.3.1><DG1.3.1>I10</DG1.3.1><DG1.3.1>E11.9</DG1.3.1> <DG1.3 Co2 26 meq/L 22-30 [facility] ([facility]) FASTING 12 HOUR~.~.~<DG1.3.1>Z00.01</DG1.3.1><DG1.3.1>I10</DG1.3.1><DG1.3.1>E11.9</DG1.3.1> <DG1.3 Chloride 103 meq/L 98-107 [facility] ([facility]) FASTING 12 HOUR~.~.~<DG1.3.1>Z00.01</DG1.3.1><DG1.3.1>I10</DG1.3.1><DG1.3.1>E11.9</DG1.3.1> <DG1.3 Creatinine 1.2 mg/dL 0.7-1.5 [facility] ([facility]) FASTING 12 HOUR~.~.~<DG1.3.1>Z00.01</DG1.3.1><DG1.3.1>I10</DG1.3.1><DG1.3.1>E11.9</DG1.3.1> <DG1.3 BUN/Creat 18 8-27 [facility] ([facility]) FASTING 12 HOUR~.~.~<DG1.3.1>Z00.01</DG1.3.1><DG1.3.1>I10</DG1.3.1><DG1.3.1>E11.9</DG1.3.1> <DG1.3 BUN 22 mg/dL 7-21 Above high normal [facility] ([facility]) FASTING 12 HOUR~.~.~<DG1.3.1>Z00.01</DG1.3.1><DG1.3.1>I10</DG1.3.1><DG1.3.1>E11.9</DG1.3.1> <DG1.3 Albumin 4.3 g/dL 3.9-5.0 [facility] ([facility]) FASTING 12 HOUR~.~.~<DG1.3.1>Z00.01</DG1.3.1><DG1.3.1>I10</DG1.3.1><DG1.3.1>E11.9</DG1.3.1> <DG1.3 Total Protein 6.5 g/dL 6.3-8.2 [facility] ([facility]) FASTING 12 HOUR~.~.~<DG1.3.1>Z00.01</DG1.3.1><DG1.3.1>I10</DG1.3.1><DG1.3.1>E11.9</DG1.3.1> <DG1.3 Calcium 9.7 mg/dL 8.4-10.2 [facility] ([facility]) FASTING 12 HOUR~.~.~<DG1.3.1>Z00.01</DG1.3.1><DG1.3.1>I10</DG1.3.1><DG1.3.1>E11.9</DG1.3.1> <DG1.3 A/G Ratio 2.0 0.8-2.0 [facility] ([facility]) FASTING 12 HOUR~.~.~<DG1.3.1>Z00.01</DG1.3.1><DG1.3.1>I10</DG1.3.1><DG1.3.1>E11.9</DG1.3.1> <DG1.3 Globulin 2.2 GM/DL 2.4-3.2 Below low normal [facility] ( [facility]) FASTING 12 HOUR~.~.~<DG1.3.1>Z00.01</DG1.3.1><DG1.3.1>I10</DG1.3.1><DG1.3.1>E11.9</DG1.3.1> <DG1.3 Sgot/Ast 20 U/L 5-40 [facility] ([facility]) FASTING 12 HOUR~.~.~<DG1.3.1>Z00.01</DG1.3.1><DG1.3.1>I10</DG1.3.1><DG1.3.1>E11.9</DG1.3.1> <DG1.3 Alkaline Phos 139 U/L 38-126 Above high normal [facility] ([facility]) FASTING 12 HOUR~.~.~<DG1.3.1>Z00.01</DG1.3.1><DG1.3.1>I10</DG1.3.1><DG1.3.1>E11.9</DG1.3.1> <DG1.3 Total Bili Laboratory test result 0.2-1.3 [facility] ([facility]) FASTING 12 HOUR~.~.~<DG1.3.1>Z00.01</DG1.3.1><DG1.3.1>I10</DG1.3.1><DG1.3.1>E11.9</DG1.3.1> <DG1.3 Anion Gap 13.0 mmol/L 8.0-16.0 [facility] ([facility]) FASTING 12 HOUR~.~.~<DG1.3.1>Z00.01</DG1.3.1><DG1.3.1>I10</DG1.3.1><DG1.3.1>E11.9</DG1.3.1> <DG1.3 Age 70 yrs [facility] ([facility]) FASTING 12 HOUR~.~.~<DG1.3.1>Z00.01</DG1.3.1><DG1.3.1>I10</DG1.3.1><DG1.3.1>E11.9</DG1.3.1> <DG1.3 SGPT/Alt 25 U/L 7-56 [facility] ([facility]) FASTING 12 HOUR~.~.~<DG1.3.1>Z00.01</DG1.3.1><DG1.3.1>I10</DG1.3.1><DG1.3.1>E11.9</DG1.3.1> <DG1.3 Non-Aa GFR 47 mL/min [facility] ([facility]) FASTING 12 HOUR~.~.~<DG1.3.1>Z00.01</DG1.3.1><DG1.3.1>I10</DG1.3.1><DG1.3.1>E11.9</DG1.3.1> <DG1.3 Afr Amer GFR Laboratory test result [facility] ([facility]) FASTING 12 HOUR~.~.~<DG1.3.1>Z00.01</DG1.3.1><DG1.3.1>I10</DG1.3.1><DG1.3.1>E11.9</DG1.3.1> <DG1.3 ID Date Data Source [id number] 10/17/2020 01:21:00 PM EST [facility] ([facility]) Name Value Range Interpretation Code Description Data Debi rce(s) Supporting Document(s) Urinalysis Laboratory test result [facility] ([facility]) FASTING 12 HOUR~.~.~<DG1.3.1>Z00.01</DG1.3.1><DG1.3.1>I10</DG1.3.1><DG1.3.1>E11.9</DG1.3.1> <DG1.3 Source Laboratory test result [facility] ([facility]) FASTING 12 HOUR~.~.~<DG1.3.1>Z00.01</DG1.3.1><DG1.3.1>I10</DG1.3.1><DG1.3.1>E11.9</DG1.3.1> <DG1.3 Color Laboratory test result [facility] ([facility]) FASTING 12 HOUR~.~.~<DG1.3.1>Z00.01</DG1.3.1><DG1.3.1>I10</DG1.3.1><DG1.3.1>E11.9</DG1.3.1> <DG1.3 Spec [place] 1.015 1.001-1.030 [facility] ([facility]) FASTING 12 HOUR~.~.~<DG1.3.1>Z00.01</DG1.3.1><DG1.3.1>I10</DG1.3.1><DG1.3.1>E11.9</DG1.3.1> <DG1.3 Clarity Laboratory test result [facility] ([facility]) FASTING 12 HOUR~.~.~<DG1.3.1>Z00.01</DG1.3.1><DG1.3.1>I10</DG1.3.1><DG1.3.1>E11.9</DG1.3.1> <DG1.3 pH 5 5-9 [facility] ([facility]) FASTING 12 HOUR~.~.~<DG1.3.1>Z00.01</DG1.3.1><DG1.3.1>I10</DG1.3.1><DG1.3.1>E11.9</DG1.3.1> <DG1.3 Glucose Laboratory test result [facility] ([facility]) FASTING 12 HOUR~.~.~<DG1.3.1>Z00.01</DG1.3.1><DG1.3.1>I10</DG1.3.1><DG1.3.1>E11.9</DG1.3.1> <DG1.3 Bilirubin Laboratory test result [facility] ([facility]) FASTING 12 HOUR~.~.~<DG1.3.1>Z00.01</DG1.3.1><DG1.3.1>I10</DG1.3.1><DG1.3.1>E11.9</DG1.3.1> <DG1.3 Ketone Laboratory test result [facility] ([facility]) FASTING 12 HOUR~.~.~<DG1.3.1>Z00.01</DG1.3.1><DG1.3.1>I10</DG1.3.1><DG1.3.1>E11.9</DG1.3.1> <DG1.3 Nitrite Laboratory test result [facility]) FASTING 12 HOUR~.~.~<DG1.3.1>Z00.01</DG1.3.1><DG1.3.1>I10</DG1.3.1><DG1.3.1>E11.9</DG1.3.1> <DG1.3 Protein Laboratory test result [facility]) FASTING 12 HOUR~.~.~<DG1.3.1>Z00.01</DG1.3.1><DG1.3.1>I10</DG1.3.1><DG1.3.1>E11.9</DG1.3.1> <DG1.3 Blood Laboratory test result [facility]) FASTING 12 HOUR~.~.~<DG1.3.1>Z00.01</DG1.3.1><DG1.3.1>I10</DG1.3.1><DG1.3.1>E11.9</DG1.3.1> <DG1.3 Urobilinogen Laboratory test result [facility] ([facility]) FASTING 12 HOUR~.~.~<DG1.3.1>Z00.01</DG1.3.1><DG1.3.1>I10</DG1.3.1><DG1.3.1>E11.9</DG1.3.1> <DG1.3 Leuk Est Laboratory test result [facility] ([facility]) FASTING 12 HOUR~.~.~<DG1.3.1>Z00.01</DG1.3.1><DG1.3.1>I10</DG1.3.1><DG1.3.1>E11.9</DG1.3.1> <DG1.3 Microscopic Laboratory test result [facility] ([facility]) FASTING 12 HOUR~.~.~<DG1.3.1>Z00.01</DG1.3.1><DG1.3.1>I10</DG1.3.1><DG1.3.1>E11.9</DG1.3.1> <DG1.3 ID Date Data Source [id number] 10/17/2020 01:21:00 PM EST [facility] ([facility]) Name Value Range Interpretation Code Description Data Debi rce(s) Supporting Document(s) CBC W/Automated Diff Laboratory test result [facility] ([facility]) FASTING 12 HOUR~.~.~<DG1.3.1>Z00.01</DG1.3.1><DG1.3.1>I10</DG1.3.1><DG1.3.1>E11.9</DG1.3.1> <DG1.3 RBC 4.75 10^6/uL 4.20-5.40 [facility] ([facility]) FASTING 12 HOUR~.~.~<DG1.3.1>Z00.01</DG1.3.1><DG1.3.1>I10</DG1.3.1><DG1.3.1>E11.9</DG1.3.1> <DG1.3 WBC 12.6 10^3/uL 4.2-11.0 Above high normal [facility] ([facility]) FASTING 12 HOUR~.~.~<DG1.3.1>Z00.01</DG1.3.1><DG1.3.1>I10</DG1.3.1><DG1.3.1>E11.9</DG1.3.1> <DG1.3 Hematocrit 40.5 % 37.0-47.0 [facility] ([facility]) FASTING 12 HOUR~.~.~<DG1.3.1>Z00.01</DG1.3.1><DG1.3.1>I10</DG1.3.1><DG1.3.1>E11.9</DG1.3.1> <DG1.3 Hemoglobin 12.6 g/dL 12.0-16.0 [facility] ([facility]) FASTING 12 HOUR~.~.~<DG1.3.1>Z00.01</DG1.3.1><DG1.3.1>I10</DG1.3.1><DG1.3.1>E11.9</DG1.3.1> <DG1.3 MCV 85.3 fL 81.0-101 [facility] ([facility]) FASTING 12 HOUR~.~.~<DG1.3.1>Z00.01</DG1.3.1><DG1.3.1>I10</DG1.3.1><DG1.3.1>E11.9</DG1.3.1> <DG1.3 MCH 26.5 pg 27.0-34.0 Below low normal [facility] ( [facility]) FASTING 12 HOUR~.~.~<DG1.3.1>Z00.01</DG1.3.1><DG1.3.1>I10</DG1.3.1><DG1.3.1>E11.9</DG1.3.1> <DG1.3 MCHC 31.1 g/dL 31.0-36.0 [facility] ([facility]) FASTING 12 HOUR~.~.~<DG1.3.1>Z00.01</DG1.3.1><DG1.3.1>I10</DG1.3.1><DG1.3.1>E11.9</DG1.3.1> <DG1.3 RDW 17.6 % 11.5-14.5 Above high normal [facility] ([facility]) FASTING 12 HOUR~.~.~<DG1.3.1>Z00.01</DG1.3.1><DG1.3.1>I10</DG1.3.1><DG1.3.1>E11.9</DG1.3.1> <DG1.3 Neut 79.8 % 37.0-80.0 [facility] ([facility]) FASTING 12 HOUR~.~.~<DG1.3.1>Z00.01</DG1.3.1><DG1.3.1>I10</DG1.3.1><DG1.3.1>E11.9</DG1.3.1> <DG1.3 MPV 10.2 fL 7.4-10.4 [facility] ([facility]) FASTING 12 HOUR~.~.~<DG1.3.1>Z00.01</DG1.3.1><DG1.3.1>I10</DG1.3.1><DG1.3.1>E11.9</DG1.3.1> <DG1.3 Platelets 326 10^3/uL 150-450 [facility] ([facility]) FASTING 12 HOUR~.~.~<DG1.3.1>Z00.01</DG1.3.1><DG1.3.1>I10</DG1.3.1><DG1.3.1>E11.9</DG1.3.1> <DG1.3 Lymph 10.5 % 25.0-40.0 Below low normal [facility] ( [facility]) FASTING 12 HOUR~.~.~<DG1.3.1>Z00.01</DG1.3.1><DG1.3.1>I10</DG1.3.1><DG1.3.1>E11.9</DG1.3.1> <DG1.3 Beckham 6.3 % 3.0-8.0 [facility] ([facility]) FASTING 12 HOUR~.~.~<DG1.3.1>Z00.01</DG1.3.1><DG1.3.1>I10</DG1.3.1><DG1.3.1>E11.9</DG1.3.1> <DG1.3 %Ig 0.5 % 0.0-0.0 Above high normal [facility] ([facility]) FASTING 12 HOUR~.~.~<DG1.3.1>Z00.01</DG1.3.1><DG1.3.1>I10</DG1.3.1><DG1.3.1>E11.9</DG1.3.1> <DG1.3 Eos 2.2 % 0.0-7.0 [facility] ([facility]) FASTING 12 HOUR~.~.~<DG1.3.1>Z00.01</DG1.3.1><DG1.3.1>I10</DG1.3.1><DG1.3.1>E11.9</DG1.3.1> <DG1.3 Baso 0.7 % 0.0-2.5 [facility] ([facility]) FASTING 12 HOUR~.~.~<DG1.3.1>Z00.01</DG1.3.1><DG1.3.1>I10</DG1.3.1><DG1.3.1>E11.9</DG1.3.1> <DG1.3 #Lymph 1.33 10^3/uL 0.60-3.40 [facility] ([facility]) FASTING 12 HOUR~.~.~<DG1.3.1>Z00.01</DG1.3.1><DG1.3.1>I10</DG1.3.1><DG1.3.1>E11.9</DG1.3.1> <DG1.3 #Neut 10.06 10^3/uL 2.00-6.90 Above high normal [facility] ([facility]) FASTING 12 HOUR~.~.~<DG1.3.1>Z00.01</DG1.3.1><DG1.3.1>I10</DG1.3.1><DG1.3.1>E11.9</DG1.3.1> <DG1.3 %NRBC 0.0 % 0.0-0.0 [facility] ([facility] FASTING 12 HOUR~.~.~<DG1.3.1>Z00.01</DG1.3.1><DG1.3.1>I10</DG1.3.1><DG1.3.1>E11.9</DG1.3.1> <DG1.3 #Beckham 0.80 10^3/uL 0.00-0.90 [facility] ([facility]) FASTING 12 HOUR~.~.~<DG1.3.1>Z00.01</DG1.3.1><DG1.3.1>I10</DG1.3.1><DG1.3.1>E11.9</DG1.3.1> <DG1.3 #Eos 0.28 10^3/uL 0.00-0.70 [facility] ([facility]) FASTING 12 HOUR~.~.~<DG1.3.1>Z00.01</DG1.3.1><DG1.3.1>I10</DG1.3.1><DG1.3.1>E11.9</DG1.3.1> <DG1.3 #Baso 0.09 10^3/uL 0.00-0.20 [facility] ([facility]) FASTING 12 HOUR~.~.~<DG1.3.1>Z00.01</DG1.3.1><DG1.3.1>I10</DG1.3.1><DG1.3.1>E11.9</DG1.3.1> <DG1.3 #NRBC 0.00 10^3/uL 0.00-0.00 [facility] ([facility]) FASTING 12 HOUR~.~.~<DG1.3.1>Z00.01</DG1.3.1><DG1.3.1>I10</DG1.3.1><DG1.3.1>E11.9</DG1.3.1> <DG1.3 #Ig 0.06 10^3/uL 0.00-0.10 [facility] ([facility]) FASTING 12 HOUR~.~.~<DG1.3.1>Z00.01</DG1.3.1><DG1.3.1>I10</DG1.3.1><DG1.3.1>E11.9</DG1.3.1> <DG1.3 RBC Morph Laboratory test result [facility] ([facility]) FASTING 12 HOUR~.~.~<DG1.3.1>Z00.01</DG1.3.1><DG1.3.1>I10</DG1.3.1><DG1.3.1>E11.9</DG1.3.1> <DG1.3 [facility]~.~.~<DG1.3.1>Z00.01</DG1.3.1><DG1.3.1>I10</DG1.3.1><DG1.3.1>E11.9</DG1.3.1> <DG1.3 ID Date Data Source [id number] 10/21/2020 09:06:00 AM [facility] Name Value Range Interpretation Code Description Data Debi rce(s) Supporting Document(s) Iron [Mass/volume] in Serum or Plasma 70 UG/DL 42 - 135 [facility] Iron binding capacity.unsaturated [Mass/volume] in Serum or Plasma 224 UG/DL 112 - 347 [facility] Iron binding capacity [Mass/volume] in Serum or Plasma 294 ug/dL 250 - 450 [facility] Iron saturation [Mass Fraction] in Serum or Plasma 24 % [facility] ID Date Data Source [id number] 10/17/2020 02:46:00 PM [facility] Name Value Range Interpretation Code Description Data Debi rce(s) Supporting Document(s) Thyroxine (T4) free index in Serum or Plasma by calculation 1.28 NG/DL 0.93 - 1.70 [facility] ID Date Data Source [id number] 10/17/2020 02:46:00 PM [facility] Name Value Range Interpretation Code Description Data Debi rce(s) Supporting Document(s) Thyrotropin [Units/volume] in Serum or Plasma by Detec tion limit <= 0.05 mIU/L 3.37 uIU/mL 0.47 - 5.01 [facility] ID Date Data Source [id number] 10/17/2020 02:46:00 PM [facility] Name Value Range Interpretation Code Description Data Debi rce(s) Supporting Document(s) Calcidiol [Moles/volume] in Serum or Plasma 27 NG/ML [facility] VITAMIN-D(2 5HYDROXY) Deficiency: <=20 ng/ml Insufficiency: 21-29 ng/ml Preferred level: => 30 ng/ml ID Date Data Source [id number] 10/17/2020 02:26:00 PM [facility] Name Value Range Interpretation Code Description Data Debi rce(s) Supporting Document(s) Hemoglobin A1c/Hemoglobin.total in Blood 5.8 % 4.4 - 6.1 [facility] {A1]{HB] ID Date Data Source [id number] 10/17/2020 02:18:00 PM EST [facility] Name Value Range Interpretation Code Description Data Debi rce(s) Supporting Document(s) CVE PANEL [facility] al LIPID PANEL Cholesterol [Mass/volume] in Serum or Plasma 115 MG/DL 131 - 200 L [facility] Deprecated Triglyceride [Mass/volume] in Serum or Plasma 183 MG/DL 3 5 - 160 H [facility] HDL 30 MG/DL 29 - 86 [facility] al Cholesterol in LDL [Mass/volume] in Serum or Plasma by Direc t assay 59 mg/dL 65 - 175 L [facility] Cholesterol.total/Cholesterol in HDL [Mass Ratio] in Serum o r Plasma 3.8 3.2 - 4.4 [facility] LDL/HDL 1.97 1.47 - 3.22 [facility] ital CVE RISK CHOL/HDL LDL/HDLMEN: 1/2 AVERAGE 3.43 1.00 AVERAGE 4.97 3.55 2X AVERAGE 9.55 6.25 3X AVERAGE 23.99 7.99WOMEN: 1/2 AVERAGE 3.27 1.47 AVERAGE 4.44 3.22 2X AVERAGE 7.05 5.03 3X AVERAGE 11.04 6.14 ID Date Data Source [id number] 10/17/2020 02:18:00 PM EST [facility] Name Value Range Interpretation Code Description Data Debi rce(s) Supporting Document(s) COMPREHENSIVE METABOLIC PANEL [facility] COMPREHENSIVE METABOLIC PANEL Sodium [Moles/volume] in Serum or Plasma 142 mEq/L 134 - 153 [facility] Potassium [Moles/volume] in Serum or Plasma 4.1 mEq/L 3.6 - 5.0 [facility] Chloride [Moles/volume] in Serum or Plasma 103 mEq/L 98 - 107 [facility] Carbon dioxide, total [Moles/volume] in Serum or Plasma 26 MEQ/L 22 - 30 [facility] Glucose [Mass/volume] in Serum or Plasma 70 MG/DL 65 - 110 [facility] BUN 22 MG/DL 7 - 21 H [facility] al Creatinine [Mass/volume] in Serum or Plasma 1.2 MG/DL 0.7 - 1.5 [facility] BUN/CREAT 18 8 - 27 [facility] al Protein [Mass/volume] in Serum or Plasma 6.5 G/DL 6.3 - 8.2 [facility] Albumin [Mass/volume] in Serum or Plasma 4.3 G/DL 3.9 - 5.0 [facility] Globulin [Mass/volume] in Serum by calculation 2.2 GM/DL 2.4 - 3.2 L [facility] A/G RATIO 2.0 0.8 - 2.0 [facility] Calcium [Mass/volume] in Serum or Plasma 9.7 MG/DL 8.4 - 10.2 [facility] Bilirubin.total [Mass/volume] in Serum or Plasma <0.7 MG/DL 0.2 - 1.3 [facility] Alkaline phosphatase [Enzymatic activity/volume] in Serum or Plasma 139 U/L 38 - 126 H [facility] Aspartate aminotransferase [Enzymatic activity/volume] in Serum or Plasma 20 U/L 5 - 40 [facility] Alanine aminotransferase [Enzymatic activity/volume] in Seru m or Plasma 25 U/L 7 - 56 [facility] Anion gap 3 in Serum or Plasma 13.0 mmol/L 8.0 - 16.0 [facility] AGE 70 yrs [facility] NON-AA GFR 47 mL/min [facility] AFR AMER GFR >60 [facility] [...] >32 mL/min Normal ID Date Data Source [id number] 10/17/2020 01:55:00 PM EST [facility] Name Value Range Interpretation Code Description Data Debi rce(s) Supporting Document(s) URINALYSIS [facility] COL[facility] yellow NORMAL: Yellow [facility] ospital CLARITY clear NORMAL: Clear [facility] spital Specific gravity of Urine by Test strip 1.015 1.001 - 1.030 [facility] pH 5 5 - 9 [facility] Glucose [Mass/volume] in Urine by Test strip NORM NORMAL: Negat [facility] Bilirubin.total [Presence] in Urine by Test strip NEG NORMAL: Negative [facility] Ketones [Presence] in Urine by Test strip NEG NORMAL: Negative [facility] Protein [Mass/volume] in Urine by Test strip NEG NORMAL: Negat [facility] Nitrite [Presence] in Urine by Test strip NEG NORMAL: Negative [facility] BLOOD NEG NORMAL: Negative [facility] Leukocyte esterase [Presence] in Urine by Test strip NEG RAMOS L: Negative [facility] Urobilinogen [Mass/volume] in Urine by Test strip NOR [place] n 1.0 mg/dL [facility] MICROSCOPIC Not Indicate [facility] ID Date Data Source [id number] 10/17/2020 01:49:00 PM EST [facility] Name Value Range Interpretation Code Description Data Debi rce(s) Supporting Document(s) CBC W/AUTOMATED DIFF [facility] COMPLETE BLOOD COUNT Leukocytes [#/volume] in Blood by Automated count 12.6 10^3/uL 4.2 - 11.0 H [facility] Erythrocytes [#/volume] in Blood by Automated count 4.75 10^6/uL 4. 20 - 5.40 [facility] Hemoglobin [Mass/volume] in Blood 12.6 g/dL 12.0 - 16.0 [facility] Hematocrit [Volume Fraction] of Blood by Automated count 40.5 % 3 7.0 - 47.0 [facility] Erythrocyte mean corpuscular volume [Entitic volume] by Auto mated count 85.3 fL 81.0 - 101 [facility] Erythrocyte mean corpuscular hemoglobin [Entitic mass] by Automated count 26.5 pg 27.0 - 34.0 L [facility] Erythrocyte mean corpuscular hemoglobin concentration [Mass/volume] by Automated count 31.1 g/dL 31.0 - 36.0 [facility] Erythrocyte distribution width [Ratio] by Automated count 17.6 % 11.5 - 14.5 H [facility] Platelets [#/volume] in Blood by Automated count 326 10^3/uL 150 - 45 0 [facility] Platelet mean volume [Entitic volume] in Blood by Automated count 10.2 fL 7.4 - 10.4 [facility] Neutrophils/100 leukocytes in Blood by Automated count 79.8 % 37. 0 - 80.0 [facility] Lymphocytes/100 leukocytes in Blood by Manual count 10.5 % 25.0 - 40.0 L [facility] Monocytes/100 leukocytes in Blood by Automated count 6.3 % 3.0 - 8.0 [facility] Eosinophils/100 leukocytes in Blood by Automated count 2.2 % 0.0 - 7.0 [facility] Basophils/100 leukocytes in Blood by Automated count 0.7 % 0.0 - 2.5 [facility] %IG 0.5 % 0.0 - 0.0 [facility] %NRBC 0.0 % 0.0 - 0.0 [facility] al Neutrophils [#/volume] in Blood by Automated count 10.06 10^3/uL 2. 00 - 6.90 H [facility] Lymphocytes [#/volume] in Blood by Automated count 1.33 10^3/uL 0.60 - 3.40 [facility] Monocytes [#/volume] in Blood by Automated count 0.80 10^3/uL 0.00 - 0.90 [facility] Eosinophils [#/volume] in Blood by Automated count 0.28 10^3/uL 0.00 - 0.70 [facility] Basophils [#/volume] in Blood by Automated count 0.09 10^3/uL 0.00 - 0.20 [facility] #IG 0.06 10^3/uL 0.00 - 0.10 [facility] ospital #NRBC 0.00 10^3/uL 0.00 - 0.00 [facility] MANUAL DIFF NOT INDICATED [facility] RBC MORPH NOT INDICATED [facility] ID Date Data Source [id number] 09/16/2020 08:49:00 AM EST [facility] ([facility]) Name Value Range Interpretation Code Description Data Debi rce(s) Supporting Document(s) Appearance, Urine Laboratory test result Normal (applies to non-numeric results) [facility] ([facility]) Color, Urine Laboratory test result Normal (applies to non -numeric results) [facility] ([facility]) Specific [place] Urine Auto 1.015 1.002-1.035 Norm al (applies to non-numeric results) [facility] ([facility]) Protein, Urine Auto Laboratory test result Ramos l (applies to non-numeric results) [facility] ([facility]) PH,Urine 5.0 units 5.0-9.0 Normal (applies to non-numeric resul ts) [facility] ([facility]) Ketone, Urine Auto Laboratory test result Normal (applies to non-numeric results) [facility] ([facility]) Urobilinogen, Urine Auto 0.2 mg/dL 0.0-2.0 Normal (applies to non-numeric results) [facility] ([facility]) Glucose, Urine (Ua) Auto Laboratory test result Normal (applies to non-numeric results) [facility] ([facility]) Nitrite, Urine Auto Laboratory test result Ramos l (applies to non-numeric results) [facility] ([facility]) Bilirubin, Urine Auto Laboratory test result Nor mal (applies to non-numeric results) [facility] ([facility]) WBC, Urine Auto 2 /HPF 0-3 Normal (applies to non-numeric results) [facility] ([facility]) Blood, Urine Blood Laboratory test result Normal (applies to non-numeric results) [facility] ([facility]) Leukocyte Esterase, Urine Auto Laboratory test result Abov e high normal [facility] ([facility]) Squamous Epithelial Cell Ur AU 0 /HPF 0-6 N ormal (applies to non-numeric results) [facility] ([facility]) RBC, Urine Auto 0 /HPF 0-3 Normal (applies to non-numeric results) [facility] ([facility]) Bacteria, Urine Auto Laboratory test result Norm al (applies to non-numeric results) [facility] ([facility]) Hyaline Cast, Urine Auto 0 /LPF 0-1 Normal (applies to non -numeric results) [facility] ([facility]) ID Date Data Source [id number] 09/16/2020 08:43:00 AM EST [facility] ([facility]) Name Value Range Interpretation Code Description Data Debi rce(s) Supporting Document(s) Red Blood Count 5.11 10 4.00-5.40 Normal (applies to non-numeric results) [facility] ([facility]) Hemoglobin 13.3 g/dL 12.0-15.5 Normal (applies to non-numeric resul ts) [facility] ([facility]) White Blood Count 10.4 10 4.0-10.0 Above high normal [facility] ([facility]) Mean Corpuscular Volume 83.0 fl 80.0-96.0 Normal ( applies to non-numeric results) [facility] ([facility]) Hematocrit 42.4 % 36.0-47.0 Normal (applies to non-numeric resul ts) [facility] ([facility]) Mean Corpuscular Hemoglobin 26.0 pg 27.0-33.0 Below low normal [facility] Mean Corpuscular HGB Conc 31.4 g/dL 32.0-36.5 Below low normal [facility]) Red Cell Distribution Width 14.1 % 11.5-14.5 Norm al (applies to non-numeric results) [facility] ([facility]) Platelet Count, Automated 276 10 150-450 Normal (applies to non-numeric results) [facility] ([facility]) Lymph % 13.9 % 24.0-44.0 Below low normal [facility] ( [facility]) Neutrophils % 74.9 % 36.0-66.0 Above high normal [facility] ([facility]) [place] % 6.1 % 0.0-5.0 Above high normal [facility] ([facility]) Baso % 0.6 % 0.0-1.0 Normal (applies to non-numeric resul ts) [facility] ([facility]) Eos % 4.2 % 0.0-3.0 Above high normal [facility] ([facility]) Immature Granulocyte % 0.3 % 0-3.0 Normal (applies to non-n umeric results) [facility] ([facility]) Nucleated Red Blood Cell % 0.0 % 0-0 Normal (applies to n on-numeric results) [facility] ([facility]) Neutrophils # 7.8 10 1.5-8.5 Normal (applies to non-numeric re sults) [facility] ([facility]) Lymph # 1.4 10 1.5-5.0 Below low normal [facility] ( [facility]) [place] # 0.6 10 0.0-0.8 Normal (applies to non-numeric resul ts) [facility] ([facility]) Baso # 0.1 10 0.0-0.2 Normal (applies to non-numeric resul ts) [facility] ([facility]) Eos # 0.4 10 0.0-0.5 Normal (applies to non-numeric resul ts) [facility] ([facility]) ID Date Data Source [id number] 09/16/2020 08:43:00 AM EST [facility] ([facility]) Name Value Range Interpretation Code Description Data Debi rce(s) Supporting Document(s) Hemoglobin A1c 5.7 % Normal (applies to non-numeric r esults) [facility] ([facility]) <content>REFERENCE RANGES:</content><br/ ><content></content>
<content><=5.6% NORMAL</content>
<content>5.7-6.4% SUGGESTS IMPAIRED GLUCOSE METABOLISM/PREDIABETIC</content>
<content>>= 6.5% ABNORMAL</content>
<content></content> Estimated Average Glucose 117 mg/dL 60-110 Above high normal [facility] ([facility]) ID Date Data Source [id number] 09/16/2020 08:43:00 AM EST [facility] ([facility]) Name Value Range Interpretation Code Description Data Debi rce(s) Supporting Document(s) Triglycerides Level 212 mg/dL Above high normal [facility] ([facility]) Cholesterol Level 140 mg/dL Normal (applies to non-numeri c results) [facility] ([facility]) HDL Cholesterol 40 mg/dL Normal (applies to non-numeric results) [facility] ([facility]) Non-HDL-C 100 mg/dL Normal (applies to non-numeric resul ts) [facility] ([facility]) Cholesterol Risk Ratio 3.500 Normal (applies to non-n umeric results) [facility] ([facility]) LDL Cholesterol 58 mg/dL Normal (applies to non-numeric results) [facility] ([facility]) ID Date Data Source [id number] 09/16/2020 08:43:00 AM EST [facility] ([facility]) Name Value Range Interpretation Code Description Data Debi rce(s) Supporting Document(s) Calcidiol [Mass/volume] in Serum or Plasma 13.6 ng/mL 30.0- 100.0 Below low normal [facility] ([facility]) ID Date Data Source [id number] 09/16/2020 08:43:00 AM EST [facility] ([facility]) Name Value Range Interpretation Code Description Data Debi rce(s) Supporting Document(s) Thyrotropin [Units/volume] in Serum or Plasma Laboratory test result [facility] ([facility]) Thyroxine (T4) free [Mass/volume] in Serum or Plasma Laboratory tash t result [facility] ([facility]) ID Date Data Source [id number] 09/16/2020 08:43:00 AM EST [facility] ([facility]) Name Value Range Interpretation Code Description Data Debi rce(s) Supporting Document(s) Glucose, Fasting 101 mg/dL 70-100 Above high normal [facility] ([facility]) Creatinine For GFR 1.06 mg/dL 0.55-1.30 Normal (applies to non -numeric results) [facility] ([facility]) Glomerular Filtration Rate 54.6 Normal (applies to n on-numeric results) [facility]) <content>Units are mL/min/1.73 m2</content>
<content></content>
<content>Chronic Kidney Disease Staging per NKF:</content>
<content></content>
<content>Stage I & II GFR >=60 Normal to Mildly Decreased</content>
<content>Stage III GFR 30- 59 Moderately Decreased</content>
<content>Stage IV GFR 15-29 Severely Decreased</content>
<content>Stage V GFR <15 Very Little GFR Left</content>
<content>ESRD GFR <15 on INSIDE PHONE SALES</content>
<content></content> Blood Urea Nitrogen 15 mg/dL 7-18 Normal (applies to non-nume reece results) [facility] ([facility]) Chloride Level 109 meq/L 98-107 Above high normal [facility] ([facility]) Sodium Level 141 meq/L 136-145 Normal (applies to non-numeric res ults) [facility] ([facility]) Potassium Serum 3.9 meq/L 3.5-5.1 Normal (applies to non-numeric results) [facility] ([facility]) Calcium Level 9.5 mg/dL 8.8-10.2 Normal (applies to non-numeric re sults) [facility] ([facility]) Anion Gap 8 meq/L 8-16 Normal (applies to non-numeric resul ts) [facility] ([facility]) Carbon Dioxide Level 24 meq/L 21-32 Normal (applies to non-num tacho results) [facility] ([facility]) Alkaline Phosphatase 98 U/L 45-117 Normal (applies to non-num tacho results) [facility] ([facility]) Alt/SGPT 16 U/L 12-78 Normal (applies to non-numeric resul ts) [facility] ([facility]) Ast/Sgot 10 U/L 7-37 Normal (applies to non-numeric resul ts) [facility] ([facility]) Total Protein 7.3 GM/DL 6.4-8.2 Normal (applies to non-numeric re sults) [facility]) Bilirubin,Total 0.7 mg/dL 0.2-1.0 Normal (applies to non-numeric results) [facility] ([facility]) Albumin 3.7 GM/DL 3.2-5.2 Normal (applies to non-numeric resul ts) [facility] ([facility]) Albumin/Globulin Ratio 1.0 1.2-2.2 Below low normal [facility] ([facility]) ID Date Data Source [id number] 09/16/2020 08:43:00 AM EST [facility] ([facility]) Name Value Range Interpretation Code Description Data Debi rce(s) Supporting Document(s) Free T4 1.11 ng/dL 0.76-1.46 Normal (applies to non-numeric resul ts) [facility] ([facility]) Thyroid Stimulating Hormone 2.180 uIU/ML 0.358-3.740 Norm al (applies to non- numeric results) [facility] ([facility]) ID Date Data Source [id number] 07/31/2020 10:01:00 AM EDT [facility] ([facility]) Name Value Range Interpretation Code Description Data Debi rce(s) Supporting Document(s) Red Blood Count 4.10 4.00-5.40 [facility] ([facility]) White Blood Count 6.8 4.0-10.0 [facility] ([facility]) Platelets 240 150-450 [facility] ([facility]) Hemoglobin 11.1 [facility] ([facility]) Hematocrit 33.7 [facility] ([facility]) ID Date Data Source [id number] 04/23/2020 02:44:00 PM EDT [facility] ([facility]) Name Value Range Interpretation Code Description Data Debi rce(s) Supporting Document(s) White Blood Count 10.6 5.0-10.0 [facility] ([facility]) Platelets 365 172-450 [facility] ([facility]) Red Blood Count 4.79 4.00-5.40 [facility] ([facility]) Hemoglobin 12.5 [facility] ([facility]) Hematocrit 39.5 [facility] ([facility]) ID Date Data Source [id number] 04/23/2020 02:44:00 PM EDT [facility] ([facility]) Name Value Range Interpretation Code Description Data Debi rce(s) Supporting Document(s) Magnesium Level 2.3 1.8-2.4 [facility] ([facility]) ID Date Data Source [id number] 04/23/2020 02:44:00 PM EDT [facility] ([facility]) Name Value Range Interpretation Code Description Data Debi rce(s) Supporting Document(s) Glucose 71 70-100 [facility] ([facility]) Blood Urea Nitrogen 27 7-18 [facility] ([facility]) Sodium 140 136-145 [facility] ([facility]) Creatinine 1.07 0.6-1.0 [facility] ([facility]) Potassium 4.0 3.5-5.1 [facility] Chloride 108 98-107 [facility] Calcium 9.0 8.2-9.6 [facility] Carbon Dioxide 25 21-32 [facility] ([facility]) Glomerular filtration rate/1.73 sq M.pre dicted [Volume Rate/Area] in Serum or Plasma by Creatinine-based formula (MDRD) 54.0 [facility] ([facility]) ID Date Data Source [id number] 04/18/2020 02:49:00 PM EDT [facility] ([facility]) Name Value Range Interpretation Code Description Data Debi rce(s) Supporting Document(s) Natriuretic peptide.B prohormone N-Terminal [Mass/volu me] in Serum or Plasma 2222 [facility] ([employer] [facility]) Troponin Laboratory test result [facility] ([facility]) ID Date Data Source [id number] 04/18/2020 02:49:00 PM EDT [facility] ([facility]) Name Value Range Interpretation Code Description Data Debi rce(s) Supporting Document(s) Creatine kinase [Enzymatic activity/volume] in Serum or Plasma 119 [facility] ([facility]) CPK-MB 3.0 [facility] ([facility]) ID Date Data Source [id number] 04/17/2020 03:01:00 PM EDT [facility] ([facility]) Name Value Range Interpretation Code Description Data Debi rce(s) Supporting Document(s) Thyroid Stimulating Hormone 6.590 [facility] ([facility]) ID Date Data Source NASAL AND SINUS CULTURE 12/03/2019 12:00:00 AM EST [email or web address] ([facility]) Name Value Range Interpretation Code Description Data Debi rce(s) Supporting Document(s) FULL REPORT IN LAB NOTES ([facility] and [facility]). NASAL AND SINUS CULTURE eCW1 ([facility]) ID Date Data Source [id number] 11/22/2019 05:23:00 PM EST [facility] ([facility], ) Name Value Range Interpretation Code Description Data Debi rce(s) Supporting Document(s) Rheumatoid factor [Units/volume] in Serum or Plasma Laboratory t est result Normal (applies to non-numeric results) [facility] ([facility], ) will discuss at follow-up Cyclic citrullinated peptide IgG Ab [Units/volume] in Serum or Plasma 10 units 0-19 Normal (applies to non-numeric results) [facility] ([facility], ) will discuss at follow-up ID Date Data Source [id number] 11/22/2019 05:23:00 PM EST [facility] ([facility]) Name Value Range Interpretation Code Description Data Debi rce(s) Supporting Document(s) Aureobasidium [place] Laboratory test result N ormal (applies to non-numeric results) [facility] ([facility], ) will discuss at follow-up Aspergillus Fumigatus AB Laboratory test result Normal (applies to non-numeric results) [facility] ([facility], ) will discuss at follow-up Micropolyspora Faeni AB Laboratory test result N ormal (applies to non-numeric results) [facility] ([facility]) will discuss at follow-up [place] Serum AB Laboratory test result Normal (a pplies to non-numeric results) [facility] ([facility], ) will discuss at follow-up Thermoactinomyces Sacchari Laboratory test result Normal (applies to non- numeric results) [facility] ([facility]) will discuss at follow-up Thermoactinomyces Vulgaris Laboratory test result Normal (applies to non- numeric results) [facility] ([facility], ) will discuss at follow-up ID Date Data Source [id number] 11/22/2019 05:23:00 PM EST [facility] Name Value Range Interpretation Code Description Data Debi rce(s) Supporting Document(s) Glucose, Fasting 114 mg/dL 70-100 Above high normal M [facility] ([facility], ) will discuss at follow-up Glomerular Filtration Rate 48.8 Normal (applies to n on-numeric results) [facility] ([facility]) will discuss at follow-up Blood Urea Nitrogen 17 mg/dL 7-18 Normal (applies to non-nume reece results) [facility] ([facility]) will discuss at follow-up Creatinine For GFR 1.17 mg/dL 0.55-1.30 Normal (applies to non -numeric results) [facility] ([facility]) will discuss at follow-up Sodium Level 142 meq/L 136-145 Normal (applies to non-numeric res ults) [facility] ([facility]) will discuss at follow-up Potassium Serum 4.1 meq/L 3.5-5.1 Normal (applies to non-numeric results) [facility] ([facility]) will discuss at follow-up Carbon Dioxide Level 29 meq/L 21-32 Normal (applies to non-num tacho results) [facility] ([facility]) will discuss at follow-up Chloride Level 106 meq/L 98-107 Normal (applies to non-numeric r esults) [facility] ([facility]) will discuss at follow-up Anion Gap 7 meq/L 8-16 Below low normal [facility] ( [facility]) will discuss at follow-up Calcium Level 9.0 mg/dL 8.8-10.2 Normal (applies to non-numeric re sults) [facility] ([facility]) will discuss at follow-up Procedure Social History Code Duration Value Status Description Data Source(s ) Smoking 12/12/2020 12:00:00 AM EST Former Smoker completed Former Smoker eCW1 ([facility]) Smoking 12/08/2020 12:00:00 AM EST - 10/31/2013 12:00:00 AM EST Patient is a former smoker completed Patient is a former smoker [facility] ([facility], ) Smoking 08/27/2020 12:00:00 AM EDT Former Smoker completed Former Smoker eCW1 ([facility]) Smoking 08/27/2020 12:00:00 AM EDT Former Smoker completed Former Smoker eCW1 ([facility]) Smoking 08/27/2020 12:00:00 AM EDT Former Smoker completed Former Smoker eCW1 ([facility]) Smoking 08/27/2020 12:00:00 AM EDT Former Smoker completed Former Smoker eCW1 ([facility]) Smoking 08/27/2020 12:00:00 AM EDT Former Smoker completed Former Smoker eCW1 ([facility]) Smoking 08/27/2020 12:00:00 AM EDT Former Smoker completed Former Smoker eCW1 ([facility]) Smoking 08/27/2020 12:00:00 AM EDT Former Smoker completed Former Smoker eCW1 ([facility]) Smoking 08/27/2020 12:00:00 AM EDT Former Smoker completed Former Smoker eCW1 ([facility]) Smoking 08/27/2020 12:00:00 AM EDT Former Smoker completed Former Smoker eCW1 ([facility]) Smoking 08/27/2020 12:00:00 AM EDT Former Smoker completed Former Smoker eCW1 ([facility]) Smoking 08/27/2020 12:00:00 AM EDT Former Smoker completed Former Smoker eCW1 ([facility]) Smoking 08/27/2020 12:00:00 AM EDT Former Smoker completed Former Smoker eCW1 ([facility]) Smoking 08/27/2020 12:00:00 AM EDT Former Smoker completed Former Smoker eCW1 ([facility]) Smoking 08/27/2020 12:00:00 AM EDT Former Smoker completed Former Smoker eCW1 ([facility]) Smoking 08/27/2020 12:00:00 AM EDT Former Smoker completed Former Smoker eCW1 ([facility]) Smoking 08/22/2020 12:00:00 AM EDT Patient is a former smoker completed Patient is a former smoker [facility] ([facility]) Smoking 08/07/2020 12:00:00 AM EDT Former Smoker completed Former Smoker eCW1 ([facility]) Smoking 08/07/2020 12:00:00 AM EDT Former Smoker completed Former Smoker eCW1 ([facility]) Smoking 08/07/2020 12:00:00 AM EDT Former Smoker completed Former Smoker eCW1 ([facility]) Smoking 05/05/2020 12:00:00 AM EDT Former Smoker completed Former Smoker eCW1 ([facility]) Smoking 05/05/2020 12:00:00 AM EDT Former Smoker completed Former Smoker eCW1 ([facility]) Smoking 04/10/2020 12:00:00 AM EDT Former Smoker completed Former Smoker eCW1 ([facility]) Smoking 04/10/2020 12:00:00 AM EDT Former Smoker completed Former Smoker eCW1 ([facility]) Smoking 04/10/2020 12:00:00 AM EDT Former Smoker completed Former Smoker eCW1 ([facility]) Smoking 04/10/2020 12:00:00 AM EDT Former Smoker completed Former Smoker eCW1 ([facility]) Vital Signs ID Date Data Source UNK Name Value Range Interpretation Code Description Data Source(s) Body temperature 96.5 [degF] 96.5 [degF] eCW1 ( [facility]) Respiratory rate 20 /min 20 /min eCW1 ([facility]) Heart rate 87 /min 87 /min eCW1 ([facility]) Body mass index (BMI) [Ratio] 29.81 kg/m2 29.81 kg/m2 W1 ([facility]) Body height 62 [in_i] 62 [in_i] W1 ([facility]) Body weight 163 [lb_av] 163 [lb_av] W1 ([facility]) Diastolic blood pressure 66 mm[Hg] 66 mm[Hg] eCW1 ([facility]) Systolic blood pressure 138 mm[Hg] 138 mm[Hg] e CW1 ([facility]) Body surface area Derived from formula 1.76 m2 1.76 m2 [facility] ([facility]) Body weight 74.844 kg 74.844 kg [facility] ([facility]) [place] body weight 110 [lb_av] 110 [lb_av] [facility] ([facility]) Body mass index (BMI) [Ratio] 30.2 kg/m2 30.2 k g/m2 [facility] ([facility]) Body weight 165.00 [lb_av] 165.00 [lb_av] [facility] ([facility]) verbla per the pt Body height 62 [in_i] 62 [in_i] [facility] ([facility]) 5'2" Body temperature 95.9 [degF] 95.9 [degF] [facility] ([facility]) Oxygen saturation in Arterial blood by Pulse oximetry 916 % 916 % [facility] ([facility]) Heart rate 83 /min 83 /min [facility] ([facility]) Diastolic blood pressure 70 mm[Hg] 70 mm[Hg] [facility] ([facility]) Systolic blood pressure 122 mm[Hg] 122 mm[Hg] M [facility] ([facility]) Body surface area Derived from formula 1.70 m2 1.70 m2 [facility] ([facility]) Body mass index (BMI) [Ratio] 31.5 kg/m2 31.5 k g/m2 [facility] ([facility]) Body height 60 [in_i] 60 [in_i] [facility] ([facility]) 5'0" Body weight 73.200 kg 73.200 kg [facility] ([facility]) Body weight 161.38 [lb_av] 161.38 [lb_av] [facility] ([facility]) Oxygen saturation in Arterial blood by Pulse oximetry 98 % 98 % [facility] ([facility]) oxygen set 5L Respiratory rate 16 /min 16 /min [facility] ( [facility]) Body temperature 98.5 [degF] 98.5 [degF] [facility] ([facility]) Heart rate 75 /min 75 /min [facility] ([facility]) Diastolic blood pressure 80 mm[Hg] 80 mm[Hg] [facility] ([facility]) Systolic blood pressure 120 mm[Hg] 120 mm[Hg] M [facility] ([facility]) Body surface area Derived from formula 1.70 m2 1.70 m2 [facility] ([facility]) Body mass index (BMI) [Ratio] 31.5 kg/m2 31.5 k g/m2 [facility] Body height 60 [in_i] 60 [in_i] [facility] ([facility]) 5'0" Body weight 73.256 kg 73.256 kg [facility] ([facility]) Body weight 161.50 [lb_av] 161.50 [lb_av] [facility] ([facility]) Oxygen saturation in Arterial blood by Pulse oximetry 98 % 98 % [facility] ([facility]) O2 set at 4L Respiratory rate 16 /min 16 /min [facility] ( [facility]) Body temperature 96.0 [degF] 96.0 [degF] [facility] ([facility]) Heart rate 58 /min 58 /min [facility] ([facility]) Diastolic blood pressure 82 mm[Hg] 82 mm[Hg] [facility] ([facility]) Systolic blood pressure 124 mm[Hg] 124 mm[Hg] [facility] ([facility]) Body surface area Derived from formula 1.75 m2 1.75 m2 [facility] ([facility], ) Body weight 73.256 kg 73.256 kg [facility] ([facility], ) [place] body weight 110 [lb_av] 110 [lb_av] [facility] ([facility], ) Body mass index (BMI) [Ratio] 29.5 kg/m2 29.5 k g/m2 [facility] ([facility], ) Body weight 161.50 [lb_av] 161.50 [lb_av] [facility] ([facility], ) Body height 62 [in_i] 62 [in_i] [facility] ([facility], ) 5'2" Body temperature 97.1 [degF] 97.1 [degF] [facility] ([facility], ) Oxygen saturation in Arterial blood by Pulse oximetry 974 % 974 % [facility] ([facility], ) Heart rate 66 /min 66 /min [facility] ([facility], ) Diastolic blood pressure 70 mm[Hg] 70 mm[Hg] [facility] ([facility], ) Systolic blood pressure 118 mm[Hg] 118 mm[Hg] M [facility] ([facility], ) Diastolic blood pressure 66 mm[Hg] 66 mm[Hg] eCW1 ([facility]) Systolic blood pressure 138 mm[Hg] 138 mm[Hg] e CW1 ([facility]) Body temperature 96.6 [degF] 96.6 [degF] eCW1 ( [facility]) Respiratory rate 20 /min 20 /min eCW1 ([facility]) Heart rate 87 /min 87 /min eCW1 ([facility]) Body mass index (BMI) [Ratio] 29.88 kg/m2 29.88 kg/m2 eCW1 ([facility]) Body height 62 [in_i] 62 [in_i] eCW1 ([facility]) Body weight 163.4 [lb_av] 163.4 [lb_av] eCW1 ([facility]) Diastolic blood pressure--sitting 40 mm[Hg] 40 mm[Hg] [facility] ([facility]) large cuff, Ra Systolic blood pressure--sitting 82 mm[Hg] 82 mm[Hg] [facility] ([facility]) large cuff, Ra Heart rate 63 /min 63 /min [facility] ([facility]) Body mass index (BMI) [Ratio] 29.4 kg/m2 29.4 k g/m2 [facility] ([facility]) Body height 62 [in_i] 62 [in_i] [facility] 5'2" Body weight 161.00 [lb_av] 161.00 [lb_av] [facility] ([facility]) Diastolic blood pressure--sitting 66 mm[Hg] 66 mm[Hg] [facility] ([facility]) CBP adult cuff, [place] Systolic blood pressure--sitting 106 mm[Hg] 106 mm[Hg] [facility] ([facility]) CBP adult cuff, [place] Heart rate 72 /min 72 /min [facility] ([facility]) Body mass index (BMI) [Ratio] 31.3 kg/m2 31.3 k g/m2 [facility] ([facility]) Body height 62 [in_i] 62 [in_i] [facility] 5'2" Body weight 171.00 [lb_av] 171.00 [lb_av] [facility] ([facility]) Diastolic blood pressure 66 mm[Hg] 66 mm[Hg] eCW1 ([facility]) Systolic blood pressure 110 mm[Hg] 110 mm[Hg] e CW1 ([facility]) Body temperature 98.5 [degF] 98.5 [degF] eCW1 ( [facility]) Respiratory rate 20 /min 20 /min eCW1 ([facility]) Heart rate 69 /min 69 /min eCW1 ([facility]) Body mass index (BMI) [Ratio] 31.60 kg/m2 31.60 kg/m2 W1 ([facility]) Body height 62 [in_i] 62 [in_i] eCW1 ([facility]) Body weight 172.8 [lb_av] 172.8 [lb_av] eCW1 ([facility]) Diastolic blood pressure 74 mm[Hg] 74 mm[Hg] eCW1 ([facility]) Systolic blood pressure 113 mm[Hg] 113 mm[Hg] e CW1 ([facility]) Body temperature 98.8 [degF] 98.8 [degF] eCW1 ( [facility]) Respiratory rate 20 /min 20 /min eCW1 ([facility]) Heart rate 79 /min 79 /min eCW1 ([facility]) Body mass index (BMI) [Ratio] 31.97 kg/m2 31.97 kg/m2 eCW1 ([facility]) Body height 62 [in_us] 62 [in_us] eCW1 ([facility]) Body weight Measured 174.8 [lb_av] 174.8 [lb_av ] eCW1 ([facility]) Diastolic blood pressure 62 mm[Hg] 62 mm[Hg] eCW1 ([facility]) Systolic blood pressure 114 mm[Hg] 114 mm[Hg] e CW1 ([facility]) Body temperature 99.2 [degF] 99.2 [degF] eCW1 ( [facility]) Respiratory rate 20 /min 20 /min eCW1 ([facility]) Heart rate 89 /min 89 /min eCW1 ([facility]) Body mass index (BMI) [Ratio] 32.15 kg/m2 32.15 kg/m2 eCW1 ([facility]) Body height 62 [in_i] 62 [in_i] eCW1 ([facility]) Body weight 175.8 [lb_av] 175.8 [lb_av] eCW1 ([facility]) Body weight 79.380 kg 79.380 kg [facility] ([facility], ) [place] body weight 110 [lb_av] 110 [lb_av] [facility] ([facility], ) Body mass index (BMI) [Ratio] 32.0 kg/m2 32.0 k g/m2 [facility] ([facility], ) Body weight 175.00 [lb_av] 175.00 [lb_av] [facility] ([facility], ) Body height 62 [in_i] 62 [in_i] [facility] ([facility], ) 5'2" Body temperature 98.8 [degF] 98.8 [degF] [facility] ([facility], ) Oxygen saturation in Arterial blood by Pulse oximetry 91 % 91 % [facility] ([facility], ) o2 sat on 4l Heart rate 73 /min 73 /min [facility] ([facility], ) Diastolic blood pressure 68 mm[Hg] 68 mm[Hg] [facility] ([facility], ) Systolic blood pressure 102 mm[Hg] 102 mm[Hg] M [facility] ([facility], ) Diastolic blood pressure 56 mm[Hg] 56 mm[Hg] eCW1 ([facility]) Systolic blood pressure 114 mm[Hg] 114 mm[Hg] e CW1 ([facility]) Body temperature 97.2 [degF] 97.2 [degF] eCW1 ( [facility]) Respiratory rate 20 /min 20 /min eCW1 ([facility]) Heart rate 96 /min 96 /min eCW1 ([facility]) Body mass index (BMI) [Ratio] 32.15 kg/m2 32.15 kg/m2 W1 ([facility]) Body height 62 [in_us] 62 [in_us] eCW1 ([facility]) Body weight Measured 175.8 [lb_av] 175.8 [lb_av ] W1 ([facility]) Body weight 80.968 kg 80.968 kg [facility] ([facility], ) Body mass index (BMI) [Ratio] 32.6 kg/m2 32.6 k g/m2 [facility] ([facility], ) Body weight 178.50 [lb_av] 178.50 [lb_av] [facility] ([facility], ) Body height 62 [in_i] 62 [in_i] [facility] ([facility], ) 5'2" Oxygen saturation in Arterial blood by Pulse oximetry 86 % 86 % [facility] ([facility], ) o2 sat on 3L pulsed, 96% 02 sat on 4L co ntinuous Heart rate 69 /min 69 /min [facility] ([facility], ) Diastolic blood pressure 63 mm[Hg] 63 mm[Hg] [facility] ([facility], ) Systolic blood pressure 124 mm[Hg] 124 mm[Hg] [facility] ([facility], ) Diastolic blood pressure 62 mm[Hg] 62 mm[Hg] eCW1 ([facility]) Systolic blood pressure 110 mm[Hg] 110 mm[Hg] e CW1 ([facility]) Body temperature 98.4 [degF] 98.4 [degF] eCW1 ( [facility]) Respiratory rate 20 /min 20 /min eCW1 ([facility]) Heart rate 81 /min 81 /min eCW1 ([facility]) Body mass index (BMI) [Ratio] 32.81 kg/m2 32.81 kg/m2 eCW1 ([facility]) Body height 62 [in_us] 62 [in_us] eCW1 ([facility]) Body weight Measured 179.4 [lb_av] 179.4 [lb_av ] eCW1 ([facility]) Body temperature 97.4 [degF] 97.4 [degF] eCW1 ( [facility]) Respiratory rate 18 /min 18 /min eCW1 ([facility]) Heart rate 74 /min 74 /min eCW1 ([facility]) Body mass index (BMI) [Ratio] 32.88 kg/m2 32.88 kg/m2 eCW1 ([facility]) Body height 62 [in_us] 62 [in_us] eCW1 ([facility]) Body weight Measured 179.8 [lb_av] 179.8 [lb_av ] eCW1 ([facility]) Diastolic blood pressure 78 mm[Hg] 78 mm[Hg] eCW1 ([facility]) Systolic blood pressure 118 mm[Hg] 118 mm[Hg] e CW1 ([facility]) Body temperature 98.0 [degF] 98.0 [degF] eCW1 ( [facility]) Respiratory rate 18 /min 18 /min eCW1 ([facility]) Heart rate 86 /min 86 /min eCW1 ([facility]) Body mass index (BMI) [Ratio] 33.10 kg/m2 33.10 kg/m2 eCW1 ([facility]) Body height 62 [in_us] 62 [in_us] eCW1 ([facility]) Body weight Measured 181.0 [lb_av] 181.0 [lb_av ] eCW1 ([facility]) Body weight 83.916 kg 83.916 kg [facility] ([facility]) Body mass index (BMI) [Ratio] 33.8 kg/m2 33.8 k g/m2 [facility] ([facility]) Body weight 185.00 [lb_av] 185.00 [lb_av] [facility] ([facility]) Body height 62 [in_i] 62 [in_i] [facility] ([facility]) 5'2" Oxygen saturation in Arterial blood by Pulse oximetry 91 % 91 % [facility] ([facility]) o2 sat on 3l Heart rate 79 /min 79 /min [facility] ([facility]) Diastolic blood pressure 78 mm[Hg] 78 mm[Hg] [facility] ([facility]) Systolic blood pressure 122 mm[Hg] 122 mm[Hg] M [facility] ([facility]) Diastolic blood pressure 59 mm[Hg] 59 mm[Hg] eCW1 ([facility]) Systolic blood pressure 124 mm[Hg] 124 mm[Hg] e CW1 ([facility]) Body temperature 98.1 [degF] 98.1 [degF] eCW1 ( [facility]) Respiratory rate 20 /min 20 /min eCW1 ([facility]) Heart rate 84 /min 84 /min eCW1 ([facility]) Body mass index (BMI) [Ratio] 33.43 kg/m2 33.43 kg/m2 W1 ([facility]) Body height 62 [in_us] 62 [in_us] eCW1 ([facility]) Body weight Measured 182.8 [lb_av] 182.8 [lb_av ] W1 ([facility]) Body weight 83.916 kg 83.916 kg [facility] ([facility]) Body mass index (BMI) [Ratio] 33.8 kg/m2 33.8 k g/m2 [facility] ([facility]) Body weight 185.00 [lb_av] 185.00 [lb_av] BAL T ([facility], ) Body height 62 [in_i] 62 [in_i] [facility] ([facility], ) 5'2" Oxygen saturation in Arterial blood by Pulse oximetry 91 % 91 % [facility] ([facility], ) o2 sat on 3l pulsed Heart rate 67 /min 67 /min [facility] ([facility], ) Diastolic blood pressure 74 mm[Hg] 74 mm[Hg] [facility], ) Systolic blood pressure 122 mm[Hg] 122 mm[Hg] M [facility] ([facility], ) ID Date Data Source [id number] 11/24/2020 01:24:31 PM [facility] Name Value Range Interpretation Code Description Data Source(s) WEIGHT RECORDED 161.00 pounds 161.00 pounds [facility] Height 60 Inches 060 Inches [facility] Patient Treatment Plan of Care Planned Activity Planned Date Details Description Data Source (s) Bisoprolol Fumarate 5 MG 12/16/2020 12:00:00 AM EST [facility] ([facility]) Spironolactone 25 MG 12/16/2020 12:00:00 AM EST [facility] ([facility]) Atorvastatin Calcium 40 MG 12/16/2020 12:00:00 AM EST [facility] ([facility]) BuPROPion HCl 75 MG 12/16/2020 12:00:00 AM EST [facility] ([facility]) Torsemide 20 MG 12/16/2020 12:00:00 AM EST [facility] ([facility]) Omeprazole 20 MG 12/16/2020 12:00:00 AM EST [facility] ([facility]) MetFORMIN HCl 500 MG 12/16/2020 12:00:00 AM EST [facility] ([facility]) Pregabalin 75 MG 12/16/2020 12:00:00 AM EST [facility] ([facility]) Azithromycin 250 MG 12/16/2020 12:00:00 AM EST [facility] ([facility]) Levothyroxine Sodium 50 MCG 12/16/2020 12:00:00 AM EST [facility] ([facility]) Vitamin B-12 2500 MCG 12/16/2020 12:00:00 AM EST [facility] ([facility]) Aspirin Adult Low Dose 81 MG 12/16/2020 12:00:00 AM EST [facility] ([facility]) Oxygen 12/16/2020 12:00:00 AM EST N [facility] ([facility]) Albuterol Sulfate (2.5 MG/3ML) 0.083% 12/16/2020 12:00:00 AM EST [facility] ([facility]) Acetaminophen 325 MG / Hydrocodone Bitartrate 5 MG Ora l Tablet 11/10/2020 12:00:00 AM EST eCW1 ([facility]) Acetaminophen 325 MG / Hydrocodone Bitartrate 5 MG Ora l Tablet 11/10/2020 12:00:00 AM EST eCW1 ([facility]) Acetaminophen 325 MG / Hydrocodone Bitartrate 5 MG Ora l Tablet 11/10/2020 12:00:00 AM EST eCW1 ([facility]) Acetaminophen 325 MG / Hydrocodone Bitartrate 5 MG Ora l Tablet 11/10/2020 12:00:00 AM EST eCW1 ([facility]) Acetaminophen 325 MG / Hydrocodone Bitartrate 5 MG Ora l Tablet 10/08/2020 12:00:00 AM EST eCW1 ([facility]) Acetaminophen 325 MG / Hydrocodone Bitartrate 5 MG Ora l Tablet 10/08/2020 12:00:00 AM EST eCW1 ([facility]) Bel[place] 150 MCG 09/01/2020 12:00:00 AM EST eCW1 ([facility]) [place] 150 MCG 09/01/2020 12:00:00 AM EST eCW1 ([facility]) [place] 150 MCG 09/01/2020 12:00:00 AM EST eCW1 ([facility]) [place] 150 MCG 09/01/2020 12:00:00 AM EST eCW1 ([facility]) [place] 150 MCG 09/01/2020 12:00:00 AM EST eCW1 ([facility]) [place] 150 MCG 09/01/2020 12:00:00 AM EST eCW1 ([facility]) [place] 150 MCG 09/01/2020 12:00:00 AM EST eCW1 ([facility]) [place] 150 MCG 09/01/2020 12:00:00 AM EST eCW1 ([facility]) [place] 150 MCG 09/01/2020 12:00:00 AM EST eCW1 ([facility]) [place] 150 MCG 09/01/2020 12:00:00 AM EST eCW1 ([facility]) 168 HR Buprenorphine 0.01 MG/HR Transdermal Patch [BuT rans] 08/27/2020 12:00:00 AM EDT eCW1 ([facility]) 168 HR Buprenorphine 0.01 MG/HR Transdermal Patch [BuT rans] 08/27/2020 12:00:00 AM EDT eCW1 ([facility]) 168 HR Buprenorphine 0.01 MG/HR Transdermal Patch [BuT rans] 08/27/2020 12:00:00 AM EDT eCW1 ([facility]) 168 HR Buprenorphine 0.01 MG/HR Transdermal Patch [BuT rans] 08/27/2020 12:00:00 AM EDT eCW1 ([facility]) 168 HR Buprenorphine 0.01 MG/HR Transdermal Patch [BuT rans] 08/27/2020 12:00:00 AM EDT eCW1 ([facility]) Acetaminophen 325 MG / Hydrocodone Bitartrate 5 MG Ora l Tablet 08/27/2020 12:00:00 AM EDT eCW1 ([facility]) 168 HR Buprenorphine 0.01 MG/HR Transdermal Patch [BuT rans] 08/27/2020 12:00:00 AM EDT eCW1 ([facility]) Acetaminophen 325 MG / Hydrocodone Bitartrate 5 MG Ora l Tablet 08/27/2020 12:00:00 AM EDT eCW1 ([facility]) Acetaminophen 325 MG / Hydrocodone Bitartrate 5 MG Ora l Tablet 08/27/2020 12:00:00 AM EDT eCW1 ([facility]) 168 HR Buprenorphine 0.01 MG/HR Transdermal Patch [BuT rans] 08/27/2020 12:00:00 AM EDT eCW1 ([facility]) Acetaminophen 325 MG / Hydrocodone Bitartrate 5 MG Ora l Tablet 08/27/2020 12:00:00 AM EDT eCW1 ([facility]) 168 HR Buprenorphine 0.01 MG/HR Transdermal Patch [BuT rans] 08/27/2020 12:00:00 AM EDT eCW1 ([facility]) 168 HR Buprenorphine 0.01 MG/HR Transdermal Patch [BuT rans] 08/27/2020 12:00:00 AM EDT eCW1 ([facility]) Acetaminophen 325 MG / Hydrocodone Bitartrate 5 MG Ora l Tablet 08/27/2020 12:00:00 AM EDT eCW1 ([facility]) 168 HR Buprenorphine 0.01 MG/HR Transdermal Patch [BuT rans] 08/27/2020 12:00:00 AM EDT eCW1 ([facility]) Acetaminophen 325 MG / Hydrocodone Bitartrate 5 MG Ora l Tablet 08/27/2020 12:00:00 AM EDT eCW1 ([facility]) 168 HR Buprenorphine 0.01 MG/HR Transdermal Patch [BuT rans] 08/27/2020 12:00:00 AM EDT eCW1 ([facility]) 168 HR Buprenorphine 0.01 MG/HR Transdermal Patch [BuT rans] 08/27/2020 12:00:00 AM EDT eCW1 ([facility]) 168 HR Buprenorphine 0.01 MG/HR Transdermal Patch [BuT rans] 08/27/2020 12:00:00 AM EDT eCW1 ([facility]) Acetaminophen 325 MG / Hydrocodone Bitartrate 5 MG Ora l Tablet 08/27/2020 12:00:00 AM EDT eCW1 ([facility]) 168 HR Buprenorphine 0.01 MG/HR Transdermal Patch [BuT rans] 08/27/2020 12:00:00 AM EDT eCW1 ([facility]) Acetaminophen 325 MG / Hydrocodone Bitartrate 5 MG Ora l Tablet 08/27/2020 12:00:00 AM EDT eCW1 ([facility]) 168 HR Buprenorphine 0.01 MG/HR Transdermal Patch [BuT rans] 08/27/2020 12:00:00 AM EDT eCW1 ([facility]) Acetaminophen 325 MG / Hydrocodone Bitartrate 5 MG Ora l Tablet 08/27/2020 12:00:00 AM EDT eCW1 ([facility]) Rolling Walker 1 08/14/2020 12:00:00 AM EDT eCW1 ([facility]) Rolling Walker 1 08/14/2020 12:00:00 AM EDT eCW1 ([facility]) Rolling Walker 1 08/14/2020 12:00:00 AM EDT eCW1 ([facility]) Rolling Walker 1 08/14/2020 12:00:00 AM EDT eCW1 ([facility]) Rolling Walker 1 08/14/2020 12:00:00 AM EDT eCW1 ([facility]) Rolling Walker 1 08/14/2020 12:00:00 AM EDT eCW1 ([facility]) Rolling Walker 1 08/14/2020 12:00:00 AM EDT eCW1 ([facility]) Rolling Walker 1 08/14/2020 12:00:00 AM EDT eCW1 ([facility]) Rolling Walker 1 08/14/2020 12:00:00 AM EDT eCW1 ([facility]) Rolling Walker 1 08/14/2020 12:00:00 AM EDT eCW1 ([facility]) Rolling Walker 1 08/14/2020 12:00:00 AM EDT eCW1 ([facility]) Rolling Walker 1 08/14/2020 12:00:00 AM EDT eCW1 ([facility]) Rolling Walker 1 08/14/2020 12:00:00 AM EDT eCW1 ([facility]) Rolling Walker 1 08/14/2020 12:00:00 AM EDT eCW1 ([facility]) Rolling Walker 1 08/14/2020 12:00:00 AM EDT eCW1 ([facility]) Rolling Walker 1 08/14/2020 12:00:00 AM EDT eCW1 ([facility]) Sulfamethoxazole 400 MG / Trimethoprim 80 MG Oral Tabl et 05/05/2020 12:00:00 AM EDT eCW1 ([facility]) Sulfamethoxazole 400 MG / Trimethoprim 80 MG Oral Tabl et 05/05/2020 12:00:00 AM EDT eCW1 ([facility]) tizanidine 4 MG Oral Tablet 04/23/2020 12:00:00 AM EDT eCW1 ([facility]) Lisinopril 2.5 MG Oral Tablet 04/16/2020 12:00:00 AM EDT eCW1 ([facility]) Lisinopril 2.5 MG Oral Tablet 04/16/2020 12:00:00 AM EDT eCW1 ([facility]) Acetaminophen 325 MG / Hydrocodone Bitartrate 5 MG Ora l Tablet 02/26/2020 12:00:00 AM EDT eCW1 ([facility]) Acetaminophen 325 MG / Hydrocodone Bitartrate 5 MG Ora l Tablet 01/24/2020 12:00:00 AM EDT eCW1 ([facility]) cetirizine hydrochloride 10 MG Oral Tablet 01/07/2020 12:00:00 AM E DT eCW1 ([facility]) Nystatin 100 UNT/MG Topical Powder 01/03/2020 12:00:00 AM EST eCW1 ([facility]) Acetaminophen 325 MG / Hydrocodone Bitartrate 5 MG Ora l Tablet 12/03/2019 12:00:00 AM EST eCW1 ([facility])
[2020-12-22 14:37] LABS: BASO # 0.1 10^3/uL (0.0-0.2); EOS # 0.1 10^3/uL (0.0-0.5); EOS % 0.7 % (0.0-3.0); HEMATOCRIT 47.1 % (36.0-47.0); LYMPH # 1.6 10^3/uL (1.5-5.0); LYMPH % 14.6 % (24.0-44.0); MEAN CORPUSCULAR HEMOGLOBIN 24.1 pg (27.0-33.0); MEAN CORPUSCULAR HGB CONC 29.7 g/dl (32.0-36.5); MEAN CORPUSCULAR VOLUME 81.1 fl (80.0-96.0); MONO # 0.7 10^3/uL (0.0-0.8); MONO % 6.4 % (2.0-8.0); NEUTROPHILS # 8.2 10^3/uL (1.5-8.5); NEUTROPHILS % 76.7 % (36.0-66.0); PLATELET COUNT, AUTOMATED 335 10^3/uL (150-450); RED BLOOD COUNT 5.81 10^6/uL (4.00-5.40); WHITE BLOOD COUNT 10.7 10^3/uL (4.0-10.0)
[2020-12-22 15:07] LABS: ALBUMIN 3.7 GM/DL (3.2-5.2); BILIRUBIN,DIRECT 0.6 MG/DL (0.0-0.2); BILIRUBIN,TOTAL 1.3 MG/DL (0.2-1.0); CALCIUM LEVEL 9.6 MG/DL (8.8-10.2); CK-MB VALUE MASS 2.7 NG/ML (<3.6); CREATININE FOR GFR 1.12 MG/DL (0.55-1.30); GLOMERULAR FILTRATION RATE 51.2 (>39); MB/CK RELATIVE INDEX 2.65 (< OR =4); THYROID STIMULATING HORMONE 1.15 uIU/ML (0.358-3.740); THYROXINE (T4) 11.6 UG/DL (4.5-12.0); TOTAL PROTEIN 7.4 GM/DL (6.4-8.2); TROPONIN I 0.06 NG/ML (< 0.10)
[2020-12-22] MEDS ORDERED: POTASSIUM CHLORIDE 10 MEQ SR TABLET PO ONE ×2 (15:30→16:00)
[2020-12-22] MEDS ORDERED: SYNT50TA PO (15:50)
[2020-12-22] MEDS ORDERED: KCL 10MEQ/100ML SWI (KRUN) 10 MEQ in IV 1 EA IV ONE (16:00)
[2020-12-22] MEDS ORDERED: ISOVUE-370 76% 100ML VIAL As Ordered ONE (16:05)
--- NOTE | 2020-12-22 16:12 | ECGEPIP ---
[facility] - ED Test Date: 2020-12-22 Pat Name: CASEY KU Department: Room: - Gender: Female [employer]: desiree : 1950 Requested By: GILMER MENDOZA Order Number: [id number] Reading MD: Gilmer Prado Measurements Intervals [place] Rate: 94 P: 46 SD: 170 QRS: 3 QRSD: 76 T: 16 QT: 430 QTc: 537 Interpretive Statements Normal sinus rhythm Low voltage QRS throughout Nonspecific T wave abnormality Baseline artifact likely similar to tracing done 11-18-20 Electronically Signed on 12-22-2020 16:11:43 EST by Gilmer Prado
--- OUTSIDE RECORDS SUMMARY | 2020-12-22 16:15 | CCD ---
Author Author [facility] Organization [facility] Address Unknown Phone Unavailable Care Team Providers Care Regulatory Auditor Name Role Phone ANTECOL, Carlito ABDI MD [...] Unavailable Sim, L Rebecca PA Unavailable Unavailable Ism, L Rebecca PA Unavailable Unavailable Sim, L [...] is protected by Article 27-F of the [facility] Public Health law. If you continue you may have access to information: Regarding HIV / AIDS; Provided by facilities licensed or operated by the [facility] Office of Mental Health; or Provided by the [facility] Office for People With Developmental Disabilities. If such information is present, then the following [facility] mandated warning applies: This information has been [...] law may result in a fine or intermediate sentence or both. A general authorization for the release of medical or other information is NOT sufficient authorization for further disc losure. Allergies and Adverse Reactions Type Description Substance Reaction Status Data Source(s ) Latex Latex Latex active [facility] ([facility]) Bee sting Bee sting Bee sting active NETSWOODRUFF ([facility]) No Known Allergies No Known Allergies [facility] No Known Drug Allergies No Known Drug Allergies [facility] Drug allergy Latex Gloves Drug allergy Rash/ITCHING Active eCW1 ([facility]) Bee Stings Bee Stings Bee Stings Anaphylaxis Active W ([facility]) Encounters Encounter Providers Location Date Indications Data Source(s ) 12/16/2020 12:00:00 AM EST - 021 11:23:30 PM EST NETSMAR ([facility]) TeleMedicine Phone E/M by Ramon 11-20 Min [address] [place] [address] 12/12/2020 12:00:00 AM EST eCW1 ([facility]) Unknown [address] [facility] [address] 12/08/2020 12:00:00 AM EST eCW1 ([facility]) Outpatient Attender: Iris CARRASCO-CConsultant: PCP NO 11/24/2020 11:03:00 AM EST - 11/24/2020 11:03:00 AM EST [facility] [place] [address] [facility] [address] 11/20/2020 12:00:00 AM EST eCW1 ([facility]) [place] [address] [facility] [address] 11/14/2020 12:00:00 AM EST eCW1 ([facility]) Unknown [address] [facility] [address] 11/10/2020 12:00:00 AM EST eCW1 ([facility]) Outpatient Attender: Iris FLORCConsultant: PCP NO 10/17/2020 01:13:00 PM EST - 10/17/2020 02:13:00 PM EST [facility] Outpatient Attender: Amie Clarke/Werner/Bladimir/Kun ndl 10/16/2020 09:30:00 AM EST MEDENT ([facility]) Outpatient Attender: Iris FLORCConsultant: PCP NO 10/10/2020 07:57:57 AM EST - 10/13/2020 11:30:00 AM EST [facility] Patient discharged. Unknown [address] [facility], [facility] [address] 10/07/2020 12:00:00 AM EST eCW1 ([facility]) Outpatient Attender: Iris Stokes PA-C 04/2020 01:33:00 PM EST - 10/06/2020 01:33:00 PM [facility] Unknown [address] [facility] [address] 10/01/2020 12:00:00 AM EST eCW1 ([facility]) Outpatient Attender: Iris Stokes PA-C 02/2020 03:10:00 PM EST - 09/04/2020 03:10:00 PM [facility] Outpatient Attender: Iris Stokes PA-C [facility] 02/2020 02:00:00 PM EST MEDENT ([facility] [place] [address] [facility] [address] 08/29/2020 12:00:00 AM EDT eCW1 ([facility]) Outpatient Attender: Amie Clarke/Werner/Bladimir/Kun ndl 08/27/2020 01:00:00 PM EDT MEDENT ([facility]) Outpatient [address] [facility] [address] 08/27/2020 12:00:00 AM EDT eCW1 ([facility]) Unknown [address] [facility] [address] 08/27/2020 12:00:00 AM EDT eCW1 ([facility]) Unknown [address] [facility] [address] 08/27/2020 12:00:00 AM EDT eCW1 ([facility]) Outpatient Attender: Rebecca CARRASCO Main Office 08/22/2020 01:45:0 0 PM EDT MEDENT ([facility] Unknown [address] [facility] [address] 08/22/2020 12:00:00 AM EDT eCW1 ([facility]) Unknown [address] [facility] [address] 08/21/2020 12:00:00 AM EDT eCW1 ([facility]) Unknown [address] [facility] [address] 08/18/2020 12:00:00 AM EDT eCW1 ([facility]) Unknown [address] [facility] [address] 08/11/2020 12:00:00 AM EDT eCW1 ([facility]) Unknown [address] [facility] [address] 08/11/2020 12:00:00 AM EDT eCW1 ([facility]) Unknown [address] [facility] [place] [address] 08/08/2020 12:00:00 AM EDT eCW1 ([facility]) Outpatient [address] [facility] [place] [address] 08/07/2020 12:00:00 AM EDT eCW1 ([facility]) Unknown [address] [facility] [address] 08/01/2020 12:00:00 AM EDT eCW1 ([facility]) Unknown [address] [facility], [facility] [address] 07/22/2020 12:00:00 AM EDT [facility]CW1 [facility] Outpatient Attender: JIN WEAVER MD Main Office 05/15/2020 12:30:00 PM EDT MEDENT ([facility]) (TCM) Transition of Care Visit [address] [place] [address] 05/05/2020 12:00:00 AM EDT eCW1 ([facility]) Unknown [address] [facility] [address] 04/15/2020 12:00:00 AM EDT eCW1 ([facility]) TeleMedicine Phone E/M by Phys 11-[address] [place] [phone] 04/10/2020 12:00:00 AM EDT eCW1 ([facility]) Unknown [address] [facility] [address] 04/07/2020 12:00:00 AM EDT eCW1 ([facility]) [facility] [address] [place] [address] 03/26/2020 12:00:00 AM EDT eCW1 [facility] Outpatient [address] [facility] [address] 03/21/2020 12:00:00 AM EDT eCW1 [facility]) Outpatient Attender: Amie Clarke/Werner/Bladimir/Kun ndl 03/19/2020 02:30:00 PM EDT MEDENT ([facility]) [facility] [address] [place] [address] 03/14/2020 12:00:00 AM EDT eCW1 ([facility]) [facility] [address] [place] [address] 03/13/2020 12:00:00 AM EDT eCW1 ([facility]) [facility] [address] [place] [address] 03/11/2020 12:00:00 AM EDT eCW1 ([facility]) [address] [place] [address] 03/07/2020 12:00:00 AM EDT eCW1 ([facility]) [address] [place] [address] 03/04/2020 12:00:00 AM EDT eCW1 ([facility]) [address] [place] [address] 02/26/2020 12:00:00 AM EDT eCW1 ([facility]) [address] [place] [address] 02/26/2020 12:00:00 AM EDT eCW1 ([facility]) [facility] [address] [place] [address] 02/19/2020 12:00:00 AM EDT eCW1 ([facility]) [facility] [address] [place] [address] 02/18/2020 12:00:00 AM EDT eCW1 ([facility]) Outpatient Attender: Amie Clarke/Werner/Bladimir/Kun miranda 01/21/2020 11:00:00 AM EDT MEDENT ([facility]) [address] [place] [address] 01/21/2020 12:00:00 AM EDT eCW1 ([facility]) [address] [place] [address] 01/21/2020 12:00:00 AM EDT eCW1 ([facility]) [facility] [address] [place] [address] 01/17/2020 12:00:00 AM EDT eCW1 ([facility]) [facility] [address] [place] [phone] 01/15/2020 12:00:00 AM EDT eCW1 ([facility]) [facility] GME Resident [address] [place] [phone] 01/07/2020 12:00:00 AM EDT eCW1 ([facility]) Outpatient 01/03/2020 03:10:00 PM EST [facility] [address] [address] 01/03/2020 12:00:00 AM EST eCW1 ([facility]) [address] [address] 01/03/2020 12:00:00 AM EST eCW1 ([facility]) [address] [address] 01/03/2020 12:00:00 AM EST eCW1 ([facility]) [facility] [address] [place] [address] 01/01/2020 12:00:00 AM EST eCW1 ([facility]) [facility] [address] [place] [address] 12/24/2019 12:00:00 AM EST eCW1 ([facility]) [facility] [address] [place] [address] 12/14/2019 12:00:00 AM EST eCW1 ([facility]) [address] [address] 12/07/2019 12:00:00 AM EST eCW1 ([facility]) [address] [address] 12/03/2019 12:00:00 AM EST eCW1 ([facility]) [facility] GME Resident [address] [place] [phone] 12/03/2019 12:00:00 AM EST eCW1 ([facility]) [facility] [address] [place] [phone] 11/30/2019 12:00:00 AM EST eCW1 ([facility]) Outpatient Attender: Amie Clarke/Werner/Bladimir/Kun ndl 11/26/2019 08:00:00 AM EST MEDENT ([facility] [place] [address] 11/20/2019 12:00:00 AM EST [facility] [address] [place], [place] [phone] 11/16/2019 12:00:00 AM EST eCW1 ([facility]) [facility] [address] [place], [place] [phone] 11/16/2019 12:00:00 AM EST eCW1 ([facility]) [facility] [address] [place] [phone] 11/13/2019 12:00:00 AM EST eCW1 ([facility]) Outpatient 11/09/2019 11:48:00 AM EST [facility] Outpatient Attender: Amie Clarke/Werner/Bladimir/Kun ndbrandy 11/01/2019 08:30:00 AM EST MEDENT ([facility]) Immunizations Vaccine Date Status Description Data Source(s) New in 2011. IIV4 09/04/2020 02:30:00 PM EST completed MEDENT ([facility]) Medications Medication Brand Name Start Date Product Form Dose Route Admi nistrative Instructions Pharmacy Instructions Status Indications Reaction Description Data Source(s) Albuterol Sulfate (2.5 MG/3ML) 0.083% Albuterol Sulfate 12:00:00 AM EST completed NETSMAR T ([facility]) Aspirin Adult Low Dose 81 MG Aspirin Adult Low Dose 12/16/2020 1 2:00:00 AM EST completed NETSMA RT ([facility]) Oxygen Oxygen 12/16/2020 12:00:00 AM EST 6.0 {L} comple liza NETSMART ([facility]) Spironolactone 25 MG Spironolactone 12/16/2020 12:00:00 AM EST completed NETSMART ([facility]) Bisoprolol Fumarate 5 MG Bisoprolol Fumarate 12/16/2020 12:00:00 AM EST 0.5 {tablet} completed NETSMART ([facility]) BuPROPion HCl 75 MG BuPROPion HCl 12/16/2020 12:00:00 AM EST completed NETSMART ([facility]) Atorvastatin Calcium 40 MG Atorvastatin Calcium 12/16/2020 12:00:00 A M EST completed NETSMART ( [facility]) Omeprazole 20 MG Omeprazole 12/16/2020 12:00:00 AM EST completed NETSMART ([facility] ) Torsemide 20 MG Torsemide 12/16/2020 12:00:00 AM EST completed NETSMART ([facility]) MetFORMIN HCl 500 MG MetFORMIN HCl 12/16/2020 12:00:00 AM EST completed NETSMART ([facility]) Pregabalin 75 MG Pregabalin 12/16/2020 12:00:00 AM EST completed NETSMART ([facility] ) Azithromycin 250 MG Azithromycin 12/16/2020 12:00:00 AM EST completed NETSMART ([facility]) Levothyroxine Sodium 50 MCG Levothyroxine Sodium 12/16/2020 12:00:00 AM EST completed NETSMART ( [facility]) Vitamin B-12 2500 MCG Vitamin B-12 12/16/2020 12:00:00 AM EST completed NETSMART ([facility]) 5 mg 11/12/2020 12:00:00 AM EST tablet 45 TAKE 1/2 TABLET BY MOUTH DAILY TAKE 1/2 TABLET BY MOUTH DAILY SOLD: 11/14/2020 [facility] CPAP 11/11/2020 12:00:00 AM EST active MEDENT ([facility] ) Acetaminophen 325 MG / Hydrocodone Alexus trate 5 MG Oral Tablet Hydrocodone- Acetaminophen 5-325 MG Hydrocodone-Acetaminophen 5-325 MG 11/10/2020 12:00:00 AM EST 1.0 {tablet_as_needed} active Hydrocodone-Acetaminophen 5-325 MG eCW1 ([facility]) Acetaminophen 325 MG / Hydrocodone Alexus trate 5 MG Oral Tablet Hydrocodone- Acetaminophen 5-325 MG Hydrocodone-Acetaminophen 5-325 MG 11/10/2020 12:00:00 AM EST 1.0 {tablet_as_needed} active Hydrocodone-Acetaminophen 5-325 MG eCW1 ([facility]) Acetaminophen 325 MG / Hydrocodone Alexus trate 5 MG Oral Tablet Hydrocodone- Acetaminophen 5-325 MG Hydrocodone-Acetaminophen 5-325 MG 11/10/2020 12:00:00 AM EST 1.0 {tablet_as_needed} active Hydrocodone-Acetaminophen 5-325 MG eCW1 ([facility]) 20 mg 11/10/2020 12:00:00 AM EST tablet 240 TAKE 4 TABLETS BY MOUTH EVERY MORNING TAKE 4 TABLETS BY MOUTH EVERY MORNING SOLD: 11/11/2020 [facility] Acetaminophen 325 MG / Hydrocodone Alexus trate 5 MG Oral Tablet Hydrocodone- Acetaminophen 5-325 MG Hydrocodone-Acetaminophen 5-325 MG 11/10/2020 12:00:00 AM EST 1.0 {tablet_as_needed} active Hydrocodone-Acetaminophen 5-325 MG eCW1 ([facility]) Acetaminophen 325 MG / Hydrocodone Alexus trate 5 MG Oral Tablet Hydrocodone- Acetaminophen 5-325 MG Hydrocodone-Acetaminophen 5-325 MG 11/10/2020 12:00:00 AM EST 1.0 {tablet_as_needed} active Hydrocodone-Acetaminophen 5-325 MG eCW1 ([facility]) 25 mg 10/29/2020 12:00:00 AM EST tablet [...] 1.0 {tablet_as_needed} active Hydrocodone-Acetaminophen 5-325 MG eCW1 ([facility]) Acetaminophen 325 MG / Hydrocodone Alexus trate 5 MG Oral Tablet Hydrocodone- Acetaminophen 5-325 MG Hydrocodone-Acetaminophen 5-325 MG 10/08/2020 12:00:00 AM EST 1.0 {tablet_as_needed} active Hydrocodone-Acetaminophen 5-325 MG eCW1 ([facility]) Oxygen Concentrator 10L With Tubing And Mask, ALL Supplies 10/06/2020 12:00:00 AM EST active MEDENT ([facility]) Cholecalciferol 11568 UNT Oral Tablet Vitamin D3 Ultra Poten cy 10/06/2020 12:00:00 AM EST ORAL active M EDENT ([facility]) 20 mg 09/30/2020 12:00:00 AM EST tablet [...] 09/12/2020 12:00:00 AM EST ORAL active MEDENT ([facility]) 75 mg 09/12/2020 12:00:00 AM EST tablet 30 TAKE ONE TABLET BY MOUTH TWICE A DAY TAKE ONE TABLET BY MOUTH TWICE A DAY SOLD: 09/14/2020 [facility]ourt[facility] Loratadine 10 MG Oral Tablet [Claritin] Claritin 09/04/2020 12:00:0 0 AM EST ORAL active MEDENT ([facility]) Belbuca 150 MCG Belbuca 150 MCG 09/01/2020 12:00:00 AM EST active Belbuca 150 MCG eCW1 ([facility]) Belbuca 150 MCG Belbuca 150 MCG 09/01/2020 12:00:00 AM EST active Belbuca 150 MCG eCW1 ([facility]) Belbuca 150 MCG Belbuca 150 MCG 09/01/2020 12:00:00 AM EST active Belbuca 150 MCG eCW1 ([facility]) Belbuca 150 MCG Belbuca 150 MCG 09/01/2020 12:00:00 AM EST active Belbuca 150 MCG eCW1 ([facility]) Belbuca 150 MCG Belbuca 150 MCG 09/01/2020 12:00:00 AM EST active Belbuca 150 MCG eCW1 ([facility]) Belbuca 150 MCG Belbuca 150 MCG 09/01/2020 12:00:00 AM EST active Belbuca 150 MCG eCW1 ([facility]) Belbuca 150 MCG Belbuca 150 MCG 09/01/2020 12:00:00 AM EST active Belbuca 150 MCG eCW1 ([facility]) Belbuca 150 MCG Belbuca 150 MCG 09/01/2020 12:00:00 AM EST active Belbuca 150 MCG eCW1 ([facility]) Belbuca 150 MCG Belbuca 150 MCG 09/01/2020 12:00:00 AM EST active Belbuca 150 MCG eCW1 ([facility]) Belbuca 150 MCG Belbuca 150 MCG 09/01/2020 12:00:00 AM EST active Belbuca 150 MCG eCW1 ([facility]) Belbuca 150 MCG Belbuca 150 MCG 09/01/2020 12:00:00 AM EST active Belbuca 150 MCG eCW1 ([facility]) Acetaminophen 325 MG / Hydrocodone Alexus trate 5 MG Oral Tablet Hydrocodone- Acetaminophen 5-325 MG Hydrocodone-Acetaminophen 5-325 MG 08/27/2020 12:00:00 AM EDT 1.0 {tablet_as_needed} active Hydrocodone-Acetaminophen 5-325 MG eCW1 ([facility]) 168 HR Buprenorphine 0.01 MG/HR Transdermal Patch [BuT rans] Butrans 10 MCG/HR Butrans 10 MCG/HR 08/27/2020 12:00:00 AM EDT 1.0 {patch_to_skin} active Butrans 10 MCG/HR eCW1 ([facility]) Acetaminophen 325 MG / Hydrocodone Alexus trate 5 MG Oral Tablet Hydrocodone- Acetaminophen 5-325 MG Hydrocodone-Acetaminophen 5-325 MG 08/27/2020 12:00:00 AM EDT 1.0 {tablet_as_needed} active Hydrocodone-Acetaminophen 5-325 MG eCW1 ([facility]) Acetaminophen 325 MG / Hydrocodone Alexus trate 5 MG Oral Tablet Hydrocodone- Acetaminophen 5-325 MG Hydrocodone-Acetaminophen 5-325 MG 08/27/2020 12:00:00 AM EDT 1.0 {tablet_as_needed} active Hydrocodone-Acetaminophen 5-325 MG eCW1 ([facility]) 168 HR Buprenorphine 0.01 MG/HR Transdermal Patch [BuT rans] Butrans 10 MCG/HR Butrans 10 MCG/HR 08/27/2020 12:00:00 AM EDT 1.0 {patch_to_skin} active Butrans 10 MCG/HR eCW1 ([facility]) 168 HR Buprenorphine 0.01 MG/HR Transdermal Patch [BuT rans] Butrans 10 MCG/HR Butrans 10 MCG/HR 08/27/2020 12:00:00 AM EDT 1.0 {patch_to_skin} active Butrans 10 MCG/HR eCW1 ([facility]) Acetaminophen 325 MG / Hydrocodone Alexus trate 5 MG Oral Tablet Hydrocodone- Acetaminophen 5-325 MG Hydrocodone-Acetaminophen 5-325 MG 08/27/2020 12:00:00 AM EDT 1.0 {tablet_as_needed} active Hydrocodone-Acetaminophen 5-325 MG eCW1 ([facility]) 168 HR Buprenorphine 0.01 MG/HR Transdermal Patch [BuT rans] Butrans 10 MCG/HR Butrans 10 MCG/HR 08/27/2020 12:00:00 AM EDT 1.0 {patch_to_skin} suspended Butrans 10 MCG/HR eCW1 ([facility]) Acetaminophen 325 MG / Hydrocodone Alexus trate 5 MG Oral Tablet Hydrocodone- Acetaminophen 5-325 MG Hydrocodone-Acetaminophen 5-325 MG 08/27/2020 12:00:00 AM EDT 1.0 {tablet_as_needed} active Hydrocodone-Acetaminophen 5-325 MG eCW1 ([facility]) Acetaminophen 325 MG / Hydrocodone Alexus trate 5 MG Oral Tablet Hydrocodone- Acetaminophen 5-325 MG Hydrocodone-Acetaminophen 5-325 MG 08/27/2020 12:00:00 AM EDT 1.0 {tablet_as_needed} active Hydrocodone-Acetaminophen 5-325 MG eCW1 ([facility]) Acetaminophen 325 MG / Hydrocodone Alexus trate 5 MG Oral Tablet Hydrocodone- Acetaminophen 5-325 MG Hydrocodone-Acetaminophen 5-325 MG 08/27/2020 12:00:00 AM EDT 1.0 {tablet_as_needed} active Hydrocodone-Acetaminophen 5-325 MG eCW1 ([facility]) 168 HR Buprenorphine 0.01 MG/HR Transdermal Patch [BuT rans] Butrans 10 MCG/HR Butrans 10 MCG/HR 08/27/2020 12:00:00 AM EDT 1.0 {patch_to_skin} active Butrans 10 MCG/HR eCW1 ([facility]) 168 HR Buprenorphine 0.01 MG/HR Transdermal Patch [BuT rans] Butrans 10 MCG/HR Butrans 10 MCG/HR 08/27/2020 12:00:00 AM EDT 1.0 {patch_to_skin} active Butrans 10 MCG/HR eCW1 ([facility]) 168 HR Buprenorphine 0.01 MG/HR Transdermal Patch [BuT rans] Butrans 10 MCG/HR Butrans 10 MCG/HR 08/27/2020 12:00:00 AM EDT 1.0 {patch_to_skin} active Butrans 10 MCG/HR eCW1 ([facility]) 168 HR Buprenorphine 0.01 MG/HR Transdermal Patch [BuT rans] Butrans 10 MCG/HR Butrans 10 MCG/HR 08/27/2020 12:00:00 AM EDT 1.0 {patch_to_skin} active Butrans 10 MCG/HR eCW1 ([facility]) 168 HR Buprenorphine 0.01 MG/HR Transdermal Patch [BuT rans] Butrans 10 MCG/HR Butrans 10 MCG/HR 08/27/2020 12:00:00 AM EDT 1.0 {patch_to_skin} active Butrans 10 MCG/HR eCW1 ([facility]) Prednisone 10 MG Oral Tablet Prednisone 08/27/2020 12:00:00 AM EDT ORAL completed MEDENT ([facility]) Acetaminophen 325 MG / Hydrocodone Alexus trate 5 MG Oral Tablet Hydrocodone- Acetaminophen 5-325 MG Hydrocodone-Acetaminophen 5-325 MG 08/27/2020 12:00:00 AM EDT 1.0 {tablet_as_needed} active Hydrocodone-Acetaminophen 5-325 MG eCW1 ([facility]) 168 HR Buprenorphine 0.01 MG/HR Transdermal Patch [BuT rans] Butrans 10 MCG/HR Butrans 10 MCG/HR 08/27/2020 12:00:00 AM EDT 1.0 {patch_to_skin} active Butrans 10 MCG/HR eCW1 ([facility]) 168 HR Buprenorphine 0.01 MG/HR Transdermal Patch [BuT rans] Butrans 10 MCG/HR Butrans 10 MCG/HR 08/27/2020 12:00:00 AM EDT 1.0 {patch_to_skin} active Butrans 10 MCG/HR eCW1 ([facility]) 168 HR Buprenorphine 0.01 MG/HR Transdermal Patch [BuT rans] Butrans 10 MCG/HR Butrans 10 MCG/HR 08/27/2020 12:00:00 AM EDT 1.0 {patch_to_skin} active Butrans 10 MCG/HR eCW1 ([facility]) Acetaminophen 325 MG / Hydrocodone Alexus trate 5 MG Oral Tablet Hydrocodone- Acetaminophen 5-325 MG Hydrocodone-Acetaminophen 5-325 MG 08/27/2020 12:00:00 AM EDT 1.0 {tablet_as_needed} active Hydrocodone-Acetaminophen 5-325 MG eCW1 ([facility]) 168 HR Buprenorphine 0.01 MG/HR Transdermal Patch [BuT rans] Butrans 10 MCG/HR Butrans 10 MCG/HR 08/27/2020 12:00:00 AM EDT 1.0 {patch_to_skin} active Butrans 10 MCG/HR eCW1 ([facility]) 168 HR Buprenorphine 0.01 MG/HR Transdermal Patch [BuT rans] Butrans 10 MCG/HR Butrans 10 MCG/HR 08/27/2020 12:00:00 AM EDT 1.0 {patch_to_skin} active Butrans 10 MCG/HR eCW1 ([facility]) 168 HR Buprenorphine 0.01 MG/HR Transdermal Patch [BuT rans] Butrans 10 MCG/HR Butrans 10 MCG/HR 08/27/2020 12:00:00 AM EDT 1.0 {patch_to_skin} active Butrans 10 MCG/HR eCW1 ([facility]) 168 HR Buprenorphine 0.01 MG/HR Transdermal Patch [BuT rans] Butrans 10 MCG/HR Butrans 10 MCG/HR 08/27/2020 12:00:00 AM EDT 1.0 {patch_to_skin} active Butrans 10 MCG/HR eCW1 ([facility]) Albuterol 0.83 MG/ML Inhalant Solution Albuterol Sulfate 1 12:00:00 AM EDT active [facility] 0.3 ML Epinephrine 1 MG/ML Auto-Injector [Epipen] Epipen 2-P ak 08/21/2020 12:00:00 AM EDT active M EDENT ([facility]) 200 ACTUAT Albuterol 0.09 MG/ACTUAT Metered Dose Inhaler [Pr oAir] Proair HFA 08/21/2020 12:00:00 AM EDT ORAL active MEDENT ([facility]) pregabalin 75 MG Oral Capsule [Lyrica] Lyrica 08/21/2020 12:00:00 AM EDT ORAL active [facility] Rolling Walker 1 UNK 08/14/2020 12:00:00 AM EDT active Rolling Walker 1 eCW1 ([facility]) Rolling Walker 1 UNK 08/14/2020 12:00:00 AM EDT active Rolling Walker 1 eCW1 ([facility]) Rolling Walker 1 UNK 08/14/2020 12:00:00 AM EDT active Rolling Walker 1 eCW1 ([facility]) Rolling Walker 1 UNK 08/14/2020 12:00:00 AM EDT active Rolling Walker 1 eCW1 ([facility]) Rolling Walker 1 UNK 08/14/2020 12:00:00 AM EDT active Rolling Walker 1 eCW1 ([facility]) Rolling Walker 1 UNK 08/14/2020 12:00:00 AM EDT active Rolling Walker 1 eCW1 ([facility]) Rolling Walker 1 UNK 08/14/2020 12:00:00 AM EDT active Rolling Walker 1 eCW1 ([facility]) Rolling Walker 1 UNK 08/14/2020 12:00:00 AM EDT active Rolling Walker 1 eCW1 ([facility]) Rolling Walker 1 UNK 08/14/2020 12:00:00 AM EDT active Rolling Walker 1 eCW1 ([facility]) Rolling Walker 1 UNK 08/14/2020 12:00:00 AM EDT active Rolling Walker 1 eCW1 ([facility]) Rolling Walker 1 UNK 08/14/2020 12:00:00 AM EDT active Rolling Walker 1 eCW1 ([facility]) Rolling Walker 1 UNK 08/14/2020 12:00:00 AM EDT active Rolling Walker 1 eCW1 ([facility]) Rolling Walker 1 K 08/14/2020 12:00:00 AM EDT active Rolling Walker 1 eCW1 ([facility]) Rolling Walker 1 UNK 08/14/2020 12:00:00 AM EDT active Rolling Walker 1 eCW1 ([facility]) Rolling Walker 1 UNK 08/14/2020 12:00:00 AM EDT active Rolling Walker 1 eCW1 ([facility]) Rolling Walker 1 UNK 08/14/2020 12:00:00 AM EDT active Rolling Walker 1 eCW1 ([facility]) Rolling Walker 1 UNK 08/14/2020 12:00:00 AM EDT active Rolling Walker 1 eCW1 ([facility]) Potassium Chloride 20 MEQ Extended Relea se Oral Tablet Potassium Chloride ER 20 MEQ Potassium Chloride ER 20 MEQ 08/07/2020 12:00:00 AM EDT 1.0 {tablet_with_food} active Potassium Chl oride ER 20 MEQ eCW1 ([facility]) Potassium Chloride 20 MEQ Extended Relea se Oral Tablet Potassium Chloride ER 20 MEQ Potassium Chloride ER 20 MEQ 08/07/2020 12:00:00 AM EDT 1.0 {tablet_with_food} active Potassium Chl oride ER 20 MEQ eCW1 ([facility]) Potassium Chloride 20 MEQ Extended Relea se Oral Tablet Potassium Chloride ER 20 MEQ Potassium Chloride ER 20 MEQ 08/07/2020 12:00:00 AM EDT 1.0 {tablet_with_food} active Potassium Chl oride ER 20 MEQ eCW1 ([facility]) Potassium Chloride 20 MEQ Extended Relea se Oral Tablet Potassium Chloride ER 20 MEQ Potassium Chloride ER 20 MEQ 08/07/2020 12:00:00 AM EDT 1.0 {tablet_with_food} active Potassium Chl oride ER 20 MEQ eCW1 ([facility]) Potassium Chloride 20 MEQ Extended Relea se Oral Tablet Potassium Chloride ER 20 MEQ Potassium Chloride ER 20 MEQ 08/07/2020 12:00:00 AM EDT 1.0 {tablet_with_food} active Potassium Chl oride ER 20 MEQ eCW1 ([facility]) Potassium Chloride 20 MEQ Extended Relea se Oral Tablet Potassium Chloride ER 20 MEQ Potassium Chloride ER 20 MEQ 08/07/2020 12:00:00 AM EDT 1.0 {tablet_with_food} active Potassium Chl oride ER 20 MEQ eCW1 ([facility]) Potassium Chloride 20 MEQ Extended Relea se Oral Tablet Potassium Chloride ER 20 MEQ Potassium Chloride ER 20 MEQ 08/07/2020 12:00:00 AM EDT 1.0 {tablet_with_food} active Potassium Chl oride ER 20 MEQ eCW1 ([facility]) Potassium Chloride 20 MEQ Extended Relea se Oral Tablet Potassium Chloride ER 20 MEQ Potassium Chloride ER 20 MEQ 08/07/2020 12:00:00 AM EDT 1.0 {tablet_with_food} active Potassium Chl oride ER 20 MEQ eCW1 ([facility]) Potassium Chloride 20 MEQ Extended Relea se Oral Tablet Potassium Chloride ER 20 MEQ Potassium Chloride ER 20 MEQ 08/07/2020 12:00:00 AM EDT 1.0 {tablet_with_food} active Potassium Chl oride ER 20 MEQ eCW1 ([facility]) Potassium Chloride 20 MEQ Extended Relea se Oral Tablet Potassium Chloride ER 20 MEQ Potassium Chloride ER 20 MEQ 08/07/2020 12:00:00 AM EDT 1.0 {tablet_with_food} active Potassium Chl oride ER 20 MEQ eCW1 ([facility]) Potassium Chloride 20 MEQ Extended Relea se Oral Tablet Potassium Chloride ER 20 MEQ Potassium Chloride ER 20 MEQ 08/07/2020 12:00:00 AM EDT 1.0 {tablet_with_food} active Potassium Chl oride ER 20 MEQ eCW1 ([facility]) Potassium Chloride 20 MEQ Extended Relea se Oral Tablet Potassium Chloride ER 20 MEQ Potassium Chloride ER 20 MEQ 08/07/2020 12:00:00 AM EDT 1.0 {tablet_with_food} active Potassium Chl oride ER 20 MEQ eCW1 ([facility]) Potassium Chloride 20 MEQ Extended Relea se Oral Tablet Potassium Chloride ER 20 MEQ Potassium Chloride ER 20 MEQ 08/07/2020 12:00:00 AM EDT 1.0 {tablet_with_food} active Potassium Chl oride ER 20 MEQ eCW1 ([facility]) Potassium Chloride 20 MEQ Extended Relea se Oral Tablet Potassium Chloride ER 20 MEQ Potassium Chloride ER 20 MEQ 08/07/2020 12:00:00 AM EDT 1.0 {tablet_with_food} active Potassium Chl oride ER 20 MEQ eCW1 ([facility]) Potassium Chloride 20 MEQ Extended Relea se Oral Tablet Potassium Chloride ER 20 MEQ Potassium Chloride ER 20 MEQ 08/07/2020 12:00:00 AM EDT 1.0 {tablet_with_food} active Potassium Chl oride ER 20 MEQ eCW1 ([facility]) Potassium Chloride 20 MEQ Extended Relea se Oral Tablet Potassium Chloride ER 20 MEQ Potassium Chloride ER 20 MEQ 08/07/2020 12:00:00 AM EDT 1.0 {tablet_with_food} active Potassium Chl oride ER 20 MEQ eCW1 ([facility]) Potassium Chloride 20 MEQ Extended Relea se Oral Tablet Potassium Chloride ER 20 MEQ Potassium Chloride ER 20 MEQ 08/07/2020 12:00:00 AM EDT 1.0 {tablet_with_food} active Potassium Chl oride ER 20 MEQ eCW1 ([facility]) Potassium Chloride 20 MEQ Extended Relea se Oral Tablet Potassium Chloride ER 20 MEQ Potassium Chloride ER 20 MEQ 08/07/2020 12:00:00 AM EDT 1.0 {tablet_with_food} active Potassium Chl oride ER 20 MEQ eCW1 ([facility]) Potassium Chloride 20 MEQ Extended Relea se Oral Tablet Potassium Chloride ER 20 MEQ Potassium Chloride ER 20 MEQ 08/07/2020 12:00:00 AM EDT 1.0 {tablet_with_food} active Potassium Chl oride ER 20 MEQ eCW1 ([facility]) icosapent ethyl 1000 MG Oral Capsule [Vascepa] Vascepa 05/15/2020 12:00:00 AM EDT ORAL active [facility] ([facility] Bisoprolol Fumarate 5 MG Oral Tablet Bisoprolol Fumarate 12:00:00 AM EDT ORAL active [facility] ([facility]) Azithromycin 250 MG Oral Tablet Azithromycin 05/14/2020 12:00:00 AM E DT ORAL active [facility] ([facility]) cetirizine hydrochloride 10 MG Oral Tablet Cetirizine HCL 05/14/2020 12:00:00 AM EDT ORAL active [facility] ([facility]) Omeprazole 20 MG Delayed Release Oral Capsule Omeprazole 05/14/2020 12:00:00 AM EDT ORAL active [facility] ([facility]) tizanidine 4 MG Oral Capsule Tizanidine HCL 05/14/2020 12:00:00 AM EDT ORAL active [facility] ([facility]) 24 HR Propranolol Hydrochloride 60 MG Extended Release Oral Capsule Propranolol HCL ER 05/14/2020 12:00:00 AM EDT ORAL completed [facility] ([facility] Preservision Areds 2 05/14/2020 12:00:00 AM EDT ORAL active [facility] ([facility] 12 HR Bupropion Hydrochloride 150 MG Extended Release Oral Tablet Bupropion HCL ER (SR) 05/14/2020 12:00:00 AM EDT ORAL active [facility] ([facility] Metformin hydrochloride 500 MG Oral Tablet Metformin HCL 05/14/2020 12:00:00 AM EDT ORAL active [facility] ([facility]) Furosemide 20 MG Oral Tablet Furosemide 05/14/2020 12:00:00 AM EDT ORAL active [facility] ([facility]) Aspirin 81 MG Delayed Release Oral Tablet Aspirin 81 2019 12:00:00 AM EDT ORAL active MEDENT ( [facility]) Lisinopril 2.5 MG Oral Tablet Lisinopril 05/14/2020 12:00:00 AM EDT ORAL active [facility] ([facility]) gabapentin 300 MG Oral Capsule Gabapentin 05/14/2020 12:00:00 AM EDT ORAL completed MEDENT ([facility]) Vitamin B 12 0.5 MG Oral Tablet Vitamin B12 05/14/2020 12:00:00 AM EDT ORAL active [facility] ([facility]) Oxygen - Home 05/14/2020 12:00:00 AM EDT acti ve MEDENT ([facility]) atorvastatin 40 MG Oral Tablet Atorvastatin Calcium 05/14/2020 1 2:00:00 AM EDT ORAL active MEDENT ( [facility]) Sulfamethoxazole 400 MG / Trimethoprim 8 0 MG Oral Tablet Sulfamethoxazole- Trimethoprim 400-80 MG Sulfamethoxazole-Trimethoprim 400-80 MG 05/05/2020 12:00:00 AM EDT 1.0 {tablet} active Sulfamethoxazole-Trimethoprim 400-80 MG eCW1 ([facility]) Sulfamethoxazole 400 MG / Trimethoprim 8 0 MG Oral Tablet Sulfamethoxazole- Trimethoprim 400-80 MG Sulfamethoxazole-Trimethoprim 400-80 MG 05/05/2020 12:00:00 AM EDT 1.0 {tablet} active Sulfamethoxazole-Trimethoprim 400-80 MG eCW1 ([facility]) Albuterol 0.83 MG/ML Inhalant Solution Albuterol Sulfa te (2.5 MG/3ML) 0.083% Albuterol Sulfate (2.5 MG/3ML) 0.083% 04/25/2020 12:00:00 AM EDT 3.0 {ml} active Albuterol Sulfate (2.5 MG/3M L) 0.083% eCW1 ([facility]) Albuterol 0.83 MG/ML Inhalant Solution Albuterol Sulfa te (2.5 MG/3ML) 0.083% Albuterol Sulfate (2.5 MG/3ML) 0.083% 04/25/2020 12:00:00 AM EDT 3.0 {ml} active Albuterol Sulfate (2.5 MG/3M L) 0.083% eCW1 ([facility]) Albuterol 0.83 MG/ML Inhalant Solution Albuterol Sulfa te (2.5 MG/3ML) 0.083% Albuterol Sulfate (2.5 MG/3ML) 0.083% 04/25/2020 12:00:00 AM EDT 3.0 {ml} active Albuterol Sulfate (2.5 MG/3M L) 0.083% eCW1 ([facility]) Albuterol 0.83 MG/ML Inhalant Solution Albuterol Sulfa te (2.5 MG/3ML) 0.083% Albuterol Sulfate (2.5 MG/3ML) 0.083% 04/25/2020 12:00:00 AM EDT 3.0 {ml} active Albuterol Sulfate (2.5 MG/3M L) 0.083% eCW1 ([facility]) Albuterol 0.83 MG/ML Inhalant Solution Albuterol Sulfa te (2.5 MG/3ML) 0.083% Albuterol Sulfate (2.5 MG/3ML) 0.083% 04/25/2020 12:00:00 AM EDT 3.0 {ml} active Albuterol Sulfate (2.5 MG/3M L) 0.083% eCW1 ([facility]) Albuterol 0.83 MG/ML Inhalant Solution Albuterol Sulfa te (2.5 MG/3ML) 0.083% Albuterol Sulfate (2.5 MG/3ML) 0.083% 04/25/2020 12:00:00 AM EDT 3.0 {ml} active Albuterol Sulfate (2.5 MG/3M L) 0.083% eCW1 ([facility]) Albuterol 0.83 MG/ML Inhalant Solution Albuterol Sulfa te (2.5 MG/3ML) 0.083% Albuterol Sulfate (2.5 MG/3ML) 0.083% 04/25/2020 12:00:00 AM EDT 3.0 {ml} active Albuterol Sulfate (2.5 MG/3M L) 0.083% eCW1 ([facility]) Albuterol 0.83 MG/ML Inhalant Solution Albuterol Sulfa te (2.5 MG/3ML) 0.083% Albuterol Sulfate (2.5 MG/3ML) 0.083% 04/25/2020 12:00:00 AM EDT 3.0 {ml} active Albuterol Sulfate (2.5 MG/3M L) 0.083% eCW1 ([facility]) Albuterol 0.83 MG/ML Inhalant Solution Albuterol Sulfa te (2.5 MG/3ML) 0.083% Albuterol Sulfate (2.5 MG/3ML) 0.083% 04/25/2020 12:00:00 AM EDT 3.0 {ml} active Albuterol Sulfate (2.5 MG/3M L) 0.083% eCW1 ([facility]) Albuterol 0.83 MG/ML Inhalant Solution Albuterol Sulfa te (2.5 MG/3ML) 0.083% Albuterol Sulfate (2.5 MG/3ML) 0.083% 04/25/2020 12:00:00 AM EDT 3.0 {ml} active Albuterol Sulfate (2.5 MG/3M L) 0.083% eCW1 ([facility]) Albuterol 0.83 MG/ML Inhalant Solution Albuterol Sulfa te (2.5 MG/3ML) 0.083% Albuterol Sulfate (2.5 MG/3ML) 0.083% 04/25/2020 12:00:00 AM EDT 3.0 {ml} active Albuterol Sulfate (2.5 MG/3M L) 0.083% eCW1 ([facility]) Albuterol 0.83 MG/ML Inhalant Solution Albuterol Sulfa te (2.5 MG/3ML) 0.083% Albuterol Sulfate (2.5 MG/3ML) 0.083% 04/25/2020 12:00:00 AM EDT 3.0 {ml} active Albuterol Sulfate (2.5 MG/3M L) 0.083% eCW1 ([facility]) Albuterol 0.83 MG/ML Inhalant Solution Albuterol Sulfa te (2.5 MG/3ML) 0.083% Albuterol Sulfate (2.5 MG/3ML) 0.083% 04/25/2020 12:00:00 AM EDT 3.0 {ml} active Albuterol Sulfate (2.5 MG/3M L) 0.083% eCW1 ([facility]) Albuterol 0.83 MG/ML Inhalant Solution Albuterol Sulfa te (2.5 MG/3ML) 0.083% Albuterol Sulfate (2.5 MG/3ML) 0.083% 04/25/2020 12:00:00 AM EDT 3.0 {ml} active Albuterol Sulfate (2.5 MG/3M L) 0.083% eCW1 ([facility]) Albuterol 0.83 MG/ML Inhalant Solution Albuterol Sulfa te (2.5 MG/3ML) 0.083% Albuterol Sulfate (2.5 MG/3ML) 0.083% 04/25/2020 12:00:00 AM EDT 3.0 {ml} active Albuterol Sulfate (2.5 MG/3M L) 0.083% eCW1 ([facility]) Albuterol 0.83 MG/ML Inhalant Solution Albuterol Sulfa te (2.5 MG/3ML) 0.083% Albuterol Sulfate (2.5 MG/3ML) 0.083% 04/25/2020 12:00:00 AM EDT 3.0 {ml} active Albuterol Sulfate (2.5 MG/3M L) 0.083% eCW1 ([facility]) Albuterol 0.83 MG/ML Inhalant Solution Albuterol Sulfa te (2.5 MG/3ML) 0.083% Albuterol Sulfate (2.5 MG/3ML) 0.083% 04/25/2020 12:00:00 AM EDT 3.0 {ml} active Albuterol Sulfate (2.5 MG/3M L) 0.083% eCW1 ([facility]) Albuterol 0.83 MG/ML Inhalant Solution Albuterol Sulfa te (2.5 MG/3ML) 0.083% Albuterol Sulfate (2.5 MG/3ML) 0.083% 04/25/2020 12:00:00 AM EDT 3.0 {ml} active Albuterol Sulfate (2.5 MG/3M L) 0.083% eCW1 ([facility]) Albuterol 0.83 MG/ML Inhalant Solution Albuterol Sulfa te (2.5 MG/3ML) 0.083% Albuterol Sulfate (2.5 MG/3ML) 0.083% 04/25/2020 12:00:00 AM EDT 3.0 {ml} active Albuterol Sulfate (2.5 MG/3M L) 0.083% eCW1 ([facility]) Albuterol 0.83 MG/ML Inhalant Solution Albuterol Sulfa te (2.5 MG/3ML) 0.083% Albuterol Sulfate (2.5 MG/3ML) 0.083% 04/25/2020 12:00:00 AM EDT 3.0 {ml} active Albuterol Sulfate (2.5 MG/3M L) 0.083% eCW1 ([facility]) Albuterol 0.83 MG/ML Inhalant Solution Albuterol Sulfa te (2.5 MG/3ML) 0.083% Albuterol Sulfate (2.5 MG/3ML) 0.083% 04/25/2020 12:00:00 AM EDT 3.0 {ml} active Albuterol Sulfate (2.5 MG/3M L) 0.083% eCW1 ([facility]) 0.3 ML Epinephrine 1 MG/ML Auto-Injector [Epipen] EpiP en 2-Hank 0.3 MG/0.3ML EpiPen 2-Hank 0.3 MG/0.3ML 04/23/2020 12:00:00 AM EDT active EpiPen 2-Hank 0.3 MG/0.3ML eCW1 ([facility]) Furosemide 20 MG Oral Tablet Furosemide 20 MG 04/23/2020 12:00:00 AM E DT active Furosemide 20 MG eCW1 ([facility]) Omeprazole 20 MG Delayed Release Oral Capsule Omeprazole 20 MG 04/23/2020 12:00:00 AM EDT active Omeprazo le 20 MG eCW1 ([facility]) 0.3 ML Epinephrine 1 MG/ML Auto-Injector [Epipen] EpiP en 2-Hank 0.3 MG/0.3ML EpiPen 2-Hank 0.3 MG/0.3ML 04/23/2020 12:00:00 AM EDT active EpiPen 2-Hank 0.3 MG/0.3ML eCW1 ([facility]) 0.3 ML Epinephrine 1 MG/ML Auto-Injector [Epipen] EpiP en 2-Hank 0.3 MG/0.3ML EpiPen 2-Hank 0.3 MG/0.3ML 04/23/2020 12:00:00 AM EDT active EpiPen 2-Hank 0.3 MG/0.3ML eCW1 ([facility]) Furosemide 20 MG Oral Tablet Furosemide 20 MG 04/23/2020 12:00:00 AM E DT active Furosemide 20 MG eCW1 ([facility]) Omeprazole 20 MG Delayed Release Oral Capsule Omeprazole 20 MG 04/23/2020 12:00:00 AM EDT active Omeprazo le 20 MG eCW1 ([facility]) tizanidine 4 MG Oral Tablet Tizanidine HCl 4 MG Tizanidine H Cl 4 MG 04/23/2020 12:00:00 AM EDT active Tizanidi ne HCl 4 MG eCW1 ([facility]) Omeprazole 20 MG Delayed Release Oral Capsule Omeprazole 20 MG 04/23/2020 12:00:00 AM EDT active Omeprazo le 20 MG eCW1 ([facility]) Sulfamethoxazole 400 MG / Trimethoprim 8 0 MG Oral Tablet Sulfamethoxazole- Trimethoprim 400-80 MG Sulfamethoxazole-Trimethoprim 400-80 MG 04/23/2020 12:00:00 AM EDT 1.0 {tablet} suspended Sulfamethoxazole-Trimethoprim 400-80 MG eCW1 ([facility]) tizanidine 4 MG Oral Tablet Tizanidine HCl 4 MG Tizanidine H Cl 4 MG 04/23/2020 12:00:00 AM EDT active Tizanidi ne HCl 4 MG eCW1 ([facility]) 0.3 ML Epinephrine 1 MG/ML Auto-Injector [Epipen] EpiP en 2-Hank 0.3 MG/0.3ML EpiPen 2-Hank 0.3 MG/0.3ML 04/23/2020 12:00:00 AM EDT active EpiPen 2-Hank 0.3 MG/0.3ML eCW1 ([facility]) 0.3 ML Epinephrine 1 MG/ML Auto-Injector [Epipen] EpiP en 2-Hank 0.3 MG/0.3ML EpiPen 2-Hank 0.3 MG/0.3ML 04/23/2020 12:00:00 AM EDT active EpiPen 2-Hank 0.3 MG/0.3ML eCW1 ([facility]) Furosemide 20 MG Oral Tablet Furosemide 20 MG 04/23/2020 12:00:00 AM E DT active Furosemide 20 MG eCW1 ([facility]) Omeprazole 20 MG Delayed Release Oral Capsule Omeprazole 20 MG 04/23/2020 12:00:00 AM EDT active Omeprazo le 20 MG eCW1 ([facility]) 0.3 ML Epinephrine 1 MG/ML Auto-Injector [Epipen] EpiP en 2-Hank 0.3 MG/0.3ML EpiPen 2-Hank 0.3 MG/0.3ML 04/23/2020 12:00:00 AM EDT active EpiPen 2-Hank 0.3 MG/0.3ML eCW1 ([facility]) Omeprazole 20 MG Delayed Release Oral Capsule Omeprazole 20 MG 04/23/2020 12:00:00 AM EDT active Omeprazo le 20 MG eCW1 ([facility]) tizanidine 4 MG Oral Tablet Tizanidine HCl 4 MG Tizanidine H Cl 4 MG 04/23/2020 12:00:00 AM EDT active Tizanidi ne HCl 4 MG eCW1 ([facility]) Omeprazole 20 MG Delayed Release Oral Capsule Omeprazole 20 MG 04/23/2020 12:00:00 AM EDT active Omeprazo le 20 MG eCW1 ([facility]) tizanidine 4 MG Oral Tablet Tizanidine HCl 4 MG Tizanidine H Cl 4 MG 04/23/2020 12:00:00 AM EDT active Tizanidi ne HCl 4 MG eCW1 ([facility]) Omeprazole 20 MG Delayed Release Oral Capsule Omeprazole 20 MG 04/23/2020 12:00:00 AM EDT active Omeprazo le 20 MG eCW1 ([facility]) 0.3 ML Epinephrine 1 MG/ML Auto-Injector [Epipen] EpiP en 2-Hank 0.3 MG/0.3ML EpiPen 2-Hank 0.3 MG/0.3ML 04/23/2020 12:00:00 AM EDT active EpiPen 2-Hank 0.3 MG/0.3ML eCW1 ([facility]) tizanidine 4 MG Oral Tablet Tizanidine HCl 4 MG Tizanidine H Cl 4 MG 04/23/2020 12:00:00 AM EDT active Tizanidi ne HCl 4 MG eCW1 ([facility]) 0.3 ML Epinephrine 1 MG/ML Auto-Injector [Epipen] EpiP en 2-Hank 0.3 MG/0.3ML EpiPen 2-Hank 0.3 MG/0.3ML 04/23/2020 12:00:00 AM EDT active EpiPen 2-Hank 0.3 MG/0.3ML eCW1 ([facility]) Furosemide 20 MG Oral Tablet Furosemide 20 MG 04/23/2020 12:00:00 AM E DT active Furosemide 20 MG eCW1 ([facility]) Omeprazole 20 MG Delayed Release Oral Capsule Omeprazole 20 MG 04/23/2020 12:00:00 AM EDT active Omeprazo le 20 MG eCW1 ([facility]) tizanidine 4 MG Oral Tablet Tizanidine HCl 4 MG Tizanidine H Cl 4 MG 04/23/2020 12:00:00 AM EDT active Tizanidi ne HCl 4 MG eCW1 ([facility]) Furosemide 20 MG Oral Tablet Furosemide 20 MG 04/23/2020 12:00:00 AM E DT active Furosemide 20 MG eCW1 ([facility]) 0.3 ML Epinephrine 1 MG/ML Auto-Injector [Epipen] EpiP en 2-Hank 0.3 MG/0.3ML EpiPen 2-Hank 0.3 MG/0.3ML 04/23/2020 12:00:00 AM EDT active EpiPen 2-Hank 0.3 MG/0.3ML eCW1 ([facility]) 0.3 ML Epinephrine 1 MG/ML Auto-Injector [Epipen] EpiP en 2-Hank 0.3 MG/0.3ML EpiPen 2-Hank 0.3 MG/0.3ML 04/23/2020 12:00:00 AM EDT active EpiPen 2-Hank 0.3 MG/0.3ML eCW1 ([facility]) tizanidine 4 MG Oral Tablet Tizanidine HCl 4 MG Tizanidine H Cl 4 MG 04/23/2020 12:00:00 AM EDT active Tizanidi ne HCl 4 MG eCW1 ([facility]) Omeprazole 20 MG Delayed Release Oral Capsule Omeprazole 20 MG 04/23/2020 12:00:00 AM EDT active Omeprazo le 20 MG eCW1 ([facility]) 0.3 ML Epinephrine 1 MG/ML Auto-Injector [Epipen] EpiP en 2-Hank 0.3 MG/0.3ML EpiPen 2-Hank 0.3 MG/0.3ML 04/23/2020 12:00:00 AM EDT active EpiPen 2-Hank 0.3 MG/0.3ML eCW1 ([facility]) tizanidine 4 MG Oral Tablet Tizanidine HCl 4 MG Tizanidine H Cl 4 MG 04/23/2020 12:00:00 AM EDT active Tizanidi ne HCl 4 MG eCW1 ([facility]) Furosemide 20 MG Oral Tablet Furosemide 20 MG 04/23/2020 12:00:00 AM E DT active Furosemide 20 MG eCW1 ([facility]) Furosemide 20 MG Oral Tablet Furosemide 20 MG 04/23/2020 12:00:00 AM E DT active Furosemide 20 MG eCW1 ([facility]) tizanidine 4 MG Oral Tablet Tizanidine HCl 4 MG Tizanidine H Cl 4 MG 04/23/2020 12:00:00 AM EDT active Tizanidi ne HCl 4 MG eCW1 ([facility]) Furosemide 20 MG Oral Tablet Furosemide 20 MG 04/23/2020 12:00:00 AM E DT active Furosemide 20 MG eCW1 ([facility]) 0.3 ML Epinephrine 1 MG/ML Auto-Injector [Epipen] EpiP en 2-Hank 0.3 MG/0.3ML EpiPen 2-Hank 0.3 MG/0.3ML 04/23/2020 12:00:00 AM EDT active EpiPen 2-Hank 0.3 MG/0.3ML eCW1 ([facility]) 0.3 ML Epinephrine 1 MG/ML Auto-Injector [Epipen] EpiP en 2-Hank 0.3 MG/0.3ML EpiPen 2-Hank 0.3 MG/0.3ML 04/23/2020 12:00:00 AM EDT active EpiPen 2-Hank 0.3 MG/0.3ML eCW1 ([facility]) Furosemide 20 MG Oral Tablet Furosemide 20 MG 04/23/2020 12:00:00 AM E DT active Furosemide 20 MG eCW1 ([facility]) Prednisone 10 MG Oral Tablet PredniSONE 10 MG PredniSONE 10 MG 04/23/2020 12:00:00 AM EDT active PredniSO NE 10 MG eCW1 ([facility]) Prednisone 10 MG Oral Tablet PredniSONE 10 MG PredniSONE 10 MG 04/23/2020 12:00:00 AM EDT active PredniSO NE 10 MG eCW1 ([facility]) Furosemide 20 MG Oral Tablet Furosemide 20 MG 04/23/2020 12:00:00 AM E DT active Furosemide 20 MG eCW1 ([facility]) Omeprazole 20 MG Delayed Release Oral Capsule Omeprazole 20 MG 04/23/2020 12:00:00 AM EDT active Omeprazo le 20 MG eCW1 ([facility]) tizanidine 4 MG Oral Tablet Tizanidine HCl 4 MG Tizanidine H Cl 4 MG 04/23/2020 12:00:00 AM EDT active Tizanidi ne HCl 4 MG eCW1 ([facility]) tizanidine 4 MG Oral Tablet Tizanidine HCl 4 MG Tizanidine H Cl 4 MG 04/23/2020 12:00:00 AM EDT active Tizanidi ne HCl 4 MG eCW1 ([facility]) 0.3 ML Epinephrine 1 MG/ML Auto-Injector [Epipen] EpiP en 2-Hank 0.3 MG/0.3ML EpiPen 2-Hank 0.3 MG/0.3ML 04/23/2020 12:00:00 AM EDT active EpiPen 2-Hank 0.3 MG/0.3ML eCW1 ([facility]) tizanidine 4 MG Oral Tablet Tizanidine HCl 4 MG Tizanidine H Cl 4 MG 04/23/2020 12:00:00 AM EDT active Tizanidi ne HCl 4 MG eCW1 ([facility]) 0.3 ML Epinephrine 1 MG/ML Auto-Injector [Epipen] EpiP en 2-Hank 0.3 MG/0.3ML EpiPen 2-Hank 0.3 MG/0.3ML 04/23/2020 12:00:00 AM EDT active EpiPen 2-Hank 0.3 MG/0.3ML eCW1 ([facility]) tizanidine 4 MG Oral Tablet Tizanidine HCl 4 MG Tizanidine H Cl 4 MG 04/23/2020 12:00:00 AM EDT active Tizanidi ne HCl 4 MG eCW1 ([facility]) Furosemide 20 MG Oral Tablet Furosemide 20 MG 04/23/2020 12:00:00 AM E DT active Furosemide 20 MG eCW1 ([facility]) Omeprazole 20 MG Delayed Release Oral Capsule Omeprazole 20 MG 04/23/2020 12:00:00 AM EDT active Omeprazo le 20 MG eCW1 ([facility]) Omeprazole 20 MG Delayed Release Oral Capsule Omeprazole 20 MG 04/23/2020 12:00:00 AM EDT active Omeprazo le 20 MG eCW1 ([facility]) Furosemide 20 MG Oral Tablet Furosemide 20 MG 04/23/2020 12:00:00 AM E DT active Furosemide 20 MG eCW1 ([facility]) Omeprazole 20 MG Delayed Release Oral Capsule Omeprazole 20 MG 04/23/2020 12:00:00 AM EDT active Omeprazo le 20 MG eCW1 ([facility]) Furosemide 20 MG Oral Tablet Furosemide 20 MG 04/23/2020 12:00:00 AM E DT active Furosemide 20 MG eCW1 ([facility]) tizanidine 4 MG Oral Tablet Tizanidine HCl 4 MG Tizanidine H Cl 4 MG 04/23/2020 12:00:00 AM EDT active Tizanidi ne HCl 4 MG eCW1 ([facility]) Omeprazole 20 MG Delayed Release Oral Capsule Omeprazole 20 MG 04/23/2020 12:00:00 AM EDT active Omeprazo le 20 MG eCW1 ([facility]) Sulfamethoxazole 400 MG / Trimethoprim 8 0 MG Oral Tablet Sulfamethoxazole- Trimethoprim 400-80 MG Sulfamethoxazole-Trimethoprim 400-80 MG 04/23/2020 12:00:00 AM EDT 1.0 {tablet} suspended Sulfamethoxazole-Trimethoprim 400-80 MG eCW1 ([facility]) 0.3 ML Epinephrine 1 MG/ML Auto-Injector [Epipen] EpiP en 2-Hank 0.3 MG/0.3ML EpiPen 2-Hank 0.3 MG/0.3ML 04/23/2020 12:00:00 AM EDT active EpiPen 2-Hank 0.3 MG/0.3ML eCW1 ([facility]) Furosemide 20 MG Oral Tablet Furosemide 20 MG 04/23/2020 12:00:00 AM E DT active Furosemide 20 MG eCW1 ([facility]) tizanidine 4 MG Oral Tablet Tizanidine HCl 4 MG Tizanidine H Cl 4 MG 04/23/2020 12:00:00 AM EDT active Tizanidi ne HCl 4 MG eCW1 ([facility]) 0.3 ML Epinephrine 1 MG/ML Auto-Injector [Epipen] EpiP en 2-Hank 0.3 MG/0.3ML EpiPen 2-Hank 0.3 MG/0.3ML 04/23/2020 12:00:00 AM EDT active EpiPen 2-Hank 0.3 MG/0.3ML eCW1 ([facility]) Furosemide 20 MG Oral Tablet Furosemide 20 MG 04/23/2020 12:00:00 AM E DT active Furosemide 20 MG eCW1 ([facility]) tizanidine 4 MG Oral Tablet Tizanidine HCl 4 MG Tizanidine H Cl 4 MG 04/23/2020 12:00:00 AM EDT active Tizanidi ne HCl 4 MG eCW1 ([facility]) tizanidine 4 MG Oral Tablet Tizanidine HCl 4 MG Tizanidine H Cl 4 MG 04/23/2020 12:00:00 AM EDT active Tizanidi ne HCl 4 MG eCW1 ([facility]) tizanidine 4 MG Oral Tablet Tizanidine HCl 4 MG Tizanidine H Cl 4 MG 04/23/2020 12:00:00 AM EDT active Tizanidi ne HCl 4 MG eCW1 ([facility]) Omeprazole 20 MG Delayed Release Oral Capsule Omeprazole 20 MG 04/23/2020 12:00:00 AM EDT active Omeprazo le 20 MG eCW1 ([facility]) 0.3 ML Epinephrine 1 MG/ML Auto-Injector [Epipen] EpiP en 2-Hank 0.3 MG/0.3ML EpiPen 2-Hank 0.3 MG/0.3ML 04/23/2020 12:00:00 AM EDT active EpiPen 2-Hank 0.3 MG/0.3ML eCW1 ([facility]) Furosemide 20 MG Oral Tablet Furosemide 20 MG 04/23/2020 12:00:00 AM E DT active Furosemide 20 MG eCW1 ([facility]) 0.3 ML Epinephrine 1 MG/ML Auto-Injector [Epipen] EpiP en 2-Hank 0.3 MG/0.3ML EpiPen 2-Hank 0.3 MG/0.3ML 04/23/2020 12:00:00 AM EDT active EpiPen 2-Hank 0.3 MG/0.3ML eCW1 ([facility]) Furosemide 20 MG Oral Tablet Furosemide 20 MG 04/23/2020 12:00:00 AM E DT active Furosemide 20 MG eCW1 ([facility]) 0.3 ML Epinephrine 1 MG/ML Auto-Injector [Epipen] EpiP en 2-Hank 0.3 MG/0.3ML EpiPen 2-Hank 0.3 MG/0.3ML 04/23/2020 12:00:00 AM EDT active EpiPen 2-Hank 0.3 MG/0.3ML eCW1 ([facility]) 0.3 ML Epinephrine 1 MG/ML Auto-Injector [Epipen] EpiP en 2-Hank 0.3 MG/0.3ML EpiPen 2-Hank 0.3 MG/0.3ML 04/23/2020 12:00:00 AM EDT active EpiPen 2-Hank 0.3 MG/0.3ML eCW1 ([facility]) Furosemide 20 MG Oral Tablet Furosemide 20 MG 04/23/2020 12:00:00 AM E DT active Furosemide 20 MG eCW1 ([facility]) tizanidine 4 MG Oral Tablet Tizanidine HCl 4 MG Tizanidine H Cl 4 MG 04/23/2020 12:00:00 AM EDT active Tizanidi ne HCl 4 MG eCW1 ([facility]) Omeprazole 20 MG Delayed Release Oral Capsule Omeprazole 20 MG 04/23/2020 12:00:00 AM EDT active Omeprazo le 20 MG eCW1 ([facility]) Furosemide 20 MG Oral Tablet Furosemide 20 MG 04/23/2020 12:00:00 AM E DT active Furosemide 20 MG eCW1 ([facility]) Omeprazole 20 MG Delayed Release Oral Capsule Omeprazole 20 MG 04/23/2020 12:00:00 AM EDT active Omeprazo le 20 MG eCW1 ([facility]) Omeprazole 20 MG Delayed Release Oral Capsule Omeprazole 20 MG 04/23/2020 12:00:00 AM EDT active Omeprazo le 20 MG eCW1 ([facility]) Omeprazole 20 MG Delayed Release Oral Capsule Omeprazole 20 MG 04/23/2020 12:00:00 AM EDT active Omeprazo le 20 MG eCW1 ([facility]) Furosemide 20 MG Oral Tablet Furosemide 20 MG 04/23/2020 12:00:00 AM E DT active Furosemide 20 MG eCW1 ([facility]) Furosemide 20 MG Oral Tablet Furosemide 20 MG 04/23/2020 12:00:00 AM E DT active Furosemide 20 MG eCW1 ([facility]) tizanidine 4 MG Oral Tablet Tizanidine HCl 4 MG Tizanidine H Cl 4 MG 04/23/2020 12:00:00 AM EDT active Tizanidi ne HCl 4 MG eCW1 ([facility]) Omeprazole 20 MG Delayed Release Oral Capsule Omeprazole 20 MG 04/23/2020 12:00:00 AM EDT active Omeprazo le 20 MG eCW1 ([facility]) tizanidine 4 MG Oral Tablet Tizanidine HCl 4 MG Tizanidine H Cl 4 MG 04/23/2020 12:00:00 AM EDT active Tizanidi ne HCl 4 MG eCW1 ([facility]) Omeprazole 20 MG Delayed Release Oral Capsule Omeprazole 20 MG 04/23/2020 12:00:00 AM EDT active Omeprazo le 20 MG eCW1 ([facility]) Lisinopril 2.5 MG Oral Tablet Lisinopril 2.5 MG 04/16/2020 12:00:00 AM EDT 1.0 {tablet} active Lisinopril 2.5 MG eCW1 ([facility]) Lisinopril 2.5 MG Oral Tablet Lisinopril 2.5 MG 04/16/2020 12:00:00 AM EDT 1.0 {tablet} active Lisinopril 2.5 MG eCW1 ([facility]) Lisinopril 2.5 MG Oral Tablet Lisinopril 2.5 MG 04/16/2020 12:00:00 AM EDT 1.0 {tablet} active Lisinopril 2.5 MG eCW1 ([facility]) Lisinopril 2.5 MG Oral Tablet Lisinopril 2.5 MG 04/16/2020 12:00:00 AM EDT 1.0 {tablet} active Lisinopril 2.5 MG eCW1 ([facility]) Lisinopril 2.5 MG Oral Tablet Lisinopril 2.5 MG 04/16/2020 12:00:00 AM EDT 1.0 {tablet} active Lisinopril 2.5 MG eCW1 ([facility]) Lisinopril 2.5 MG Oral Tablet Lisinopril 2.5 MG 04/16/2020 12:00:00 AM EDT 1.0 {tablet} active Lisinopril 2.5 MG eCW1 ([facility]) Lisinopril 2.5 MG Oral Tablet Lisinopril 2.5 MG 04/16/2020 12:00:00 AM EDT 1.0 {tablet} active Lisinopril 2.5 MG eCW1 ([facility]) Lisinopril 2.5 MG Oral Tablet Lisinopril 2.5 MG 04/16/2020 12:00:00 AM EDT 1.0 {tablet} active Lisinopril 2.5 MG eCW1 ([facility]) Lisinopril 2.5 MG Oral Tablet Lisinopril 2.5 MG 04/16/2020 12:00:00 AM EDT 1.0 {tablet} active Lisinopril 2.5 MG eCW1 ([facility]) Lisinopril 2.5 MG Oral Tablet Lisinopril 2.5 MG 04/16/2020 12:00:00 AM EDT 1.0 {tablet} active Lisinopril 2.5 MG eCW1 ([facility]) Lisinopril 2.5 MG Oral Tablet Lisinopril 2.5 MG 04/16/2020 12:00:00 AM EDT 1.0 {tablet} active Lisinopril 2.5 MG eCW1 ([facility]) Lisinopril 2.5 MG Oral Tablet Lisinopril 2.5 MG 04/16/2020 12:00:00 AM EDT 1.0 {tablet} active Lisinopril 2.5 MG eCW1 ([facility]) Lisinopril 2.5 MG Oral Tablet Lisinopril 2.5 MG 04/16/2020 12:00:00 AM EDT 1.0 {tablet} active Lisinopril 2.5 MG eCW1 ([facility]) Lisinopril 2.5 MG Oral Tablet Lisinopril 2.5 MG 04/16/2020 12:00:00 AM EDT 1.0 {tablet} active Lisinopril 2.5 MG eCW1 ([facility]) Lisinopril 2.5 MG Oral Tablet Lisinopril 2.5 MG 04/16/2020 12:00:00 AM EDT 1.0 {tablet} active Lisinopril 2.5 MG eCW1 ([facility]) Lisinopril 2.5 MG Oral Tablet Lisinopril 2.5 MG 04/16/2020 12:00:00 AM EDT 1.0 {tablet} active Lisinopril 2.5 MG eCW1 ([facility]) Lisinopril 2.5 MG Oral Tablet Lisinopril 2.5 MG 04/16/2020 12:00:00 AM EDT 1.0 {tablet} active Lisinopril 2.5 MG eCW1 ([facility]) Lisinopril 2.5 MG Oral Tablet Lisinopril 2.5 MG 04/16/2020 12:00:00 AM EDT 1.0 {tablet} active Lisinopril 2.5 MG eCW1 ([facility]) Lisinopril 2.5 MG Oral Tablet Lisinopril 2.5 MG 04/16/2020 12:00:00 AM EDT 1.0 {tablet} active Lisinopril 2.5 MG eCW1 ([facility]) Lisinopril 2.5 MG Oral Tablet Lisinopril 2.5 MG 04/16/2020 12:00:00 AM EDT 1.0 {tablet} active Lisinopril 2.5 MG eCW1 ([facility]) Lisinopril 2.5 MG Oral Tablet Lisinopril 2.5 MG 04/16/2020 12:00:00 AM EDT 1.0 {tablet} active Lisinopril 2.5 MG eCW1 ([facility]) Lisinopril 2.5 MG Oral Tablet Lisinopril 2.5 MG 04/16/2020 12:00:00 AM EDT 1.0 {tablet} active Lisinopril 2.5 MG eCW1 ([facility]) Lisinopril 2.5 MG Oral Tablet Lisinopril 2.5 MG 04/16/2020 12:00:00 AM EDT 1.0 {tablet} active Lisinopril 2.5 MG eCW1 ([facility]) Acetaminophen 325 MG / Hydrocodone Alexus trate 5 MG Oral Tablet Hydrocodone- Acetaminophen 5-325 MG Hydrocodone-Acetaminophen 5-325 MG 02/26/2020 12:00:00 AM EDT active take 1 tablet eCW 1 ([facility]) Acetaminophen 325 MG / Hydrocodone Alexus trate 5 MG Oral Tablet Hydrocodone- Acetaminophen 5-325 MG Hydrocodone-Acetaminophen 5-325 MG 02/26/2020 12:00:00 AM EDT active take 1 tablet eCW 1 ([facility]) Acetaminophen 325 MG / Hydrocodone Alexus trate 5 MG Oral Tablet Hydrocodone- Acetaminophen 5-325 MG Hydrocodone-Acetaminophen 5-325 MG 02/26/2020 12:00:00 AM EDT suspended Hydrocodone-Ac etaminophen 5-325 MG eCW1 ([facility]) Acetaminophen 325 MG / Hydrocodone Alexus trate 5 MG Oral Tablet Hydrocodone- Acetaminophen 5-325 MG Hydrocodone-Acetaminophen 5-325 MG 02/26/2020 12:00:00 AM EDT suspended Hydrocodone-Ac etaminophen 5-325 MG eCW1 ([facility]) Acetaminophen 325 MG / Hydrocodone Alexus trate 5 MG Oral Tablet Hydrocodone- Acetaminophen 5-325 MG Hydrocodone-Acetaminophen 5-325 MG 02/26/2020 12:00:00 AM EDT suspended Hydrocodone-Ac etaminophen 5-325 MG eCW1 ([facility]) Acetaminophen 325 MG / Hydrocodone Alexus trate 5 MG Oral Tablet Hydrocodone- Acetaminophen 5-325 MG Hydrocodone-Acetaminophen 5-325 MG 02/26/2020 12:00:00 AM EDT suspended take 1 tablet eCW1 ([facility]) Acetaminophen 325 MG / Hydrocodone Alexus trate 5 MG Oral Tablet Hydrocodone- Acetaminophen 5-325 MG Hydrocodone-Acetaminophen 5-325 MG 02/26/2020 12:00:00 AM EDT suspended Hydrocodone-Ac etaminophen 5-325 MG eCW1 ([facility]) Acetaminophen 325 MG / Hydrocodone Alexus trate 5 MG Oral Tablet Hydrocodone- Acetaminophen 5-325 MG Hydrocodone-Acetaminophen 5-325 MG 02/26/2020 12:00:00 AM EDT active take 1 tablet eCW 1 ([facility]) Acetaminophen 325 MG / Hydrocodone Alexus trate 5 MG Oral Tablet Hydrocodone- Acetaminophen 5-325 MG Hydrocodone-Acetaminophen 5-325 MG 01/24/2020 12:00:00 AM EDT active take 1 tablet eCW 1 ([facility]) Acetaminophen 325 MG / Hydrocodone Alexus trate 5 MG Oral Tablet Hydrocodone- Acetaminophen 5-325 MG Hydrocodone-Acetaminophen 5-325 MG 01/24/2020 12:00:00 AM EDT active take 1 tablet eCW 1 ([facility]) Omeprazole 20 MG Delayed Release Oral Capsule Omeprazole 01/21/2020 12:00:00 AM EDT ORAL active MEDENT ([facility], ) Fluticasone Propionate Fluticasone Propionate 01/21/2020 12:00:00 AM E DT active MEDENT ([facility], ) cetirizine hydrochloride 10 MG Oral Tablet Cetirizine HCl 10 MG Cetirizine HCl 10 MG 01/07/2020 12:00:00 AM EDT active 1 tablet eCW1 ([facility]) cetirizine hydrochloride 10 MG Oral Tablet Cetirizine HCl 10 MG Cetirizine HCl 10 MG 01/07/2020 12:00:00 AM EDT 1.0 {tablet} activ e Cetirizine HCl 10 MG eCW1 ([facility]) cetirizine hydrochloride 10 MG Oral Tablet Cetirizine HCl 10 MG Cetirizine HCl 10 MG 01/07/2020 12:00:00 AM EDT 1.0 {tablet} activ e Cetirizine HCl 10 MG eCW1 ([facility]) cetirizine hydrochloride 10 MG Oral Tablet Cetirizine HCl 10 MG Cetirizine HCl 10 MG 01/07/2020 12:00:00 AM EDT 1.0 {tablet} activ e Cetirizine HCl 10 MG eCW1 ([facility]) cetirizine hydrochloride 10 MG Oral Tablet Cetirizine HCl 10 MG Cetirizine HCl 10 MG 01/07/2020 12:00:00 AM EDT 1.0 {tablet} activ e Cetirizine HCl 10 MG eCW1 ([facility]) cetirizine hydrochloride 10 MG Oral Tablet Cetirizine HCl 10 MG Cetirizine HCl 10 MG 01/07/2020 12:00:00 AM EDT 1.0 {tablet} activ e Cetirizine HCl 10 MG eCW1 ([facility]) cetirizine hydrochloride 10 MG Oral Tablet Cetirizine HCl 10 MG Cetirizine HCl 10 MG 01/07/2020 12:00:00 AM EDT 1.0 {tablet} activ e Cetirizine HCl 10 MG eCW1 ([facility]) cetirizine hydrochloride 10 MG Oral Tablet Cetirizine HCl 10 MG Cetirizine HCl 10 MG 01/07/2020 12:00:00 AM EDT 1.0 {tablet} activ e Cetirizine HCl 10 MG eCW1 ([facility]) cetirizine hydrochloride 10 MG Oral Tablet Cetirizine HCl 10 MG Cetirizine HCl 10 MG 01/07/2020 12:00:00 AM EDT 1.0 {tablet} activ e Cetirizine HCl 10 MG eCW1 ([facility]) cetirizine hydrochloride 10 MG Oral Tablet Cetirizine HCl 10 MG Cetirizine HCl 10 MG 01/07/2020 12:00:00 AM EDT 1.0 {tablet} activ e Cetirizine HCl 10 MG eCW1 ([facility]) cetirizine hydrochloride 10 MG Oral Tablet Cetirizine HCl 10 MG Cetirizine HCl 10 MG 01/07/2020 12:00:00 AM EDT 1.0 {tablet} activ e Cetirizine HCl 10 MG eCW1 ([facility]) cetirizine hydrochloride 10 MG Oral Tablet Cetirizine HCl 10 MG Cetirizine HCl 10 MG 01/07/2020 12:00:00 AM EDT 1.0 {tablet} activ e Cetirizine HCl 10 MG eCW1 ([facility]) cetirizine hydrochloride 10 MG Oral Tablet Cetirizine HCl 10 MG Cetirizine HCl 10 MG 01/07/2020 12:00:00 AM EDT 1.0 {tablet} activ e Cetirizine HCl 10 MG eCW1 ([facility]) cetirizine hydrochloride 10 MG Oral Tablet Cetirizine HCl 10 MG Cetirizine HCl 10 MG 01/07/2020 12:00:00 AM EDT 1.0 {tablet} activ e Cetirizine HCl 10 MG eCW1 ([facility]) cetirizine hydrochloride 10 MG Oral Tablet Cetirizine HCl 10 MG Cetirizine HCl 10 MG 01/07/2020 12:00:00 AM EDT active 1 tablet eCW1 ([facility]) cetirizine hydrochloride 10 MG Oral Tablet Cetirizine HCl 10 MG Cetirizine HCl 10 MG 01/07/2020 12:00:00 AM EDT 1.0 {tablet} activ e Cetirizine HCl 10 MG eCW1 ([facility]) cetirizine hydrochloride 10 MG Oral Tablet Cetirizine HCl 10 MG Cetirizine HCl 10 MG 01/07/2020 12:00:00 AM EDT 1.0 {tablet} activ e Cetirizine HCl 10 MG eCW1 ([facility]) cetirizine hydrochloride 10 MG Oral Tablet Cetirizine HCl 10 MG Cetirizine HCl 10 MG 01/07/2020 12:00:00 AM EDT 1.0 {tablet} activ e Cetirizine HCl 10 MG eCW1 ([facility]) cetirizine hydrochloride 10 MG Oral Tablet Cetirizine HCl 10 MG Cetirizine HCl 10 MG 01/07/2020 12:00:00 AM EDT 1.0 {tablet} activ e Cetirizine HCl 10 MG eCW1 ([facility]) cetirizine hydrochloride 10 MG Oral Tablet Cetirizine HCl 10 MG Cetirizine HCl 10 MG 01/07/2020 12:00:00 AM EDT 1.0 {tablet} activ e Cetirizine HCl 10 MG eCW1 ([facility]) cetirizine hydrochloride 10 MG Oral Tablet Cetirizine HCl 10 MG Cetirizine HCl 10 MG 01/07/2020 12:00:00 AM EDT active 1 tablet eCW1 ([facility]) cetirizine hydrochloride 10 MG Oral Tablet Cetirizine HCl 10 MG Cetirizine HCl 10 MG 01/07/2020 12:00:00 AM EDT 1.0 {tablet} activ e Cetirizine HCl 10 MG eCW1 ([facility]) cetirizine hydrochloride 10 MG Oral Tablet Cetirizine HCl 10 MG Cetirizine HCl 10 MG 01/07/2020 12:00:00 AM EDT active 1 tablet eCW1 ([facility]) cetirizine hydrochloride 10 MG Oral Tablet Cetirizine HCl 10 MG Cetirizine HCl 10 MG 01/07/2020 12:00:00 AM EDT 1.0 {tablet} activ e Cetirizine HCl 10 MG eCW1 ([facility]) cetirizine hydrochloride 10 MG Oral Tablet Cetirizine HCl 10 MG Cetirizine HCl 10 MG 01/07/2020 12:00:00 AM EDT 1.0 {tablet} activ e Cetirizine HCl 10 MG eCW1 ([facility]) cetirizine hydrochloride 10 MG Oral Tablet Cetirizine HCl 10 MG Cetirizine HCl 10 MG 01/07/2020 12:00:00 AM EDT active 1 tablet eCW1 ([facility]) cetirizine hydrochloride 10 MG Oral Tablet Cetirizine HCl 10 MG Cetirizine HCl 10 MG 01/07/2020 12:00:00 AM EDT 1.0 {tablet} activ e Cetirizine HCl 10 MG eCW1 ([facility]) cetirizine hydrochloride 10 MG Oral Tablet Cetirizine HCl 10 MG Cetirizine HCl 10 MG 01/07/2020 12:00:00 AM EDT 1.0 {tablet} activ e Cetirizine HCl 10 MG eCW1 ([facility]) cetirizine hydrochloride 10 MG Oral Tablet Cetirizine HCl 10 MG Cetirizine HCl 10 MG 01/07/2020 12:00:00 AM EDT 1.0 {tablet} activ e Cetirizine HCl 10 MG eCW1 ([facility]) cetirizine hydrochloride 10 MG Oral Tablet Cetirizine HCl 10 MG Cetirizine HCl 10 MG 01/07/2020 12:00:00 AM EDT 1.0 {tablet} activ e Cetirizine HCl 10 MG eCW1 ([facility]) Nystatin 100 UNT/MG Topical Powder Nystatin 167199 UNI T/GM Nystatin 019990 UNIT/GM 01/03/2020 12:00:00 AM EST 1.0 {application} active Nystatin [id number] UNIT/GM eCW1 ([facility]) Nystatin 100 UNT/MG Topical Powder Nystatin 786168 UNI T/GM Nystatin 099544 UNIT/GM 01/03/2020 12:00:00 AM EST active 1 application eCW1 ([facility]) Nystatin 100 UNT/MG Topical Powder Nystatin 381222 UNI T/GM Nystatin 434660 UNIT/GM 01/03/2020 12:00:00 AM EST active 1 application eCW1 ([facility]) Nystatin 100 UNT/MG Topical Powder Nystatin 543557 UNI T/GM Nystatin 301560 UNIT/GM 01/03/2020 12:00:00 AM EST 1.0 {application} active Nystatin 235636 UNIT/GM eCW1 ([facility]) Nystatin 100 UNT/MG Topical Powder Nystatin 836470 UNI T/GM Nystatin 981607 UNIT/GM 01/03/2020 12:00:00 AM EST 1.0 {application} active Nystatin 514397 UNIT/GM eCW1 ([facility]) Nystatin 100 UNT/MG Topical Powder Nystatin 698231 UNI T/GM Nystatin 865481 UNIT/GM 01/03/2020 12:00:00 AM EST 1.0 {application} active Nystatin 376420 UNIT/GM eCW1 ([facility]) Nystatin 100 UNT/MG Topical Powder Nystatin 511594 UNI T/GM Nystatin 166539 UNIT/GM 01/03/2020 12:00:00 AM EST 1.0 {application} active Nystatin 054273 UNIT/GM eCW1 ([facility]) Nystatin 100 UNT/MG Topical Powder Nystatin 140737 UNI T/GM Nystatin 151740 UNIT/GM 01/03/2020 12:00:00 AM EST 1.0 {application} active Nystatin 976981 UNIT/GM eCW1 ([facility]) Nystatin 100 UNT/MG Topical Powder Nystatin 892834 UNI T/GM Nystatin 043984 UNIT/GM 01/03/2020 12:00:00 AM EST 1.0 {application} active Nystatin 819620 UNIT/GM eCW1 ([facility]) Nystatin 100 UNT/MG Topical Powder Nystatin 318810 UNI T/GM Nystatin 005711 UNIT/GM 01/03/2020 12:00:00 AM EST 1.0 {application} active Nystatin 965191 UNIT/GM eCW1 ([facility]) Nystatin 100 UNT/MG Topical Powder Nystatin 731029 UNI T/GM Nystatin 079361 UNIT/GM 01/03/2020 12:00:00 AM EST 1.0 {application} active Nystatin 114003 UNIT/GM eCW1 ([facility]) Nystatin 100 UNT/MG Topical Powder Nystatin 036368 UNI T/GM Nystatin 410658 UNIT/GM 01/03/2020 12:00:00 AM EST 1.0 {application} active Nystatin 617734 UNIT/GM eCW1 ([facility]) Nystatin 100 UNT/MG Topical Powder Nystatin 529315 UNI T/GM Nystatin 540612 UNIT/GM 01/03/2020 12:00:00 AM EST active 1 application eCW1 ([facility]) Nystatin 100 UNT/MG Topical Powder Nystatin 202276 UNI T/GM Nystatin 566369 UNIT/GM 01/03/2020 12:00:00 AM EST 1.0 {application} active Nystatin 956506 UNIT/GM eCW1 ([facility]) Nystatin 100 UNT/MG Topical Powder Nystatin 659262 UNI T/GM Nystatin 168283 UNIT/GM 01/03/2020 12:00:00 AM EST 1.0 {application} active Nystatin 064584 UNIT/GM eCW1 ([facility]) Nystatin 100 UNT/MG Topical Powder Nystatin 778950 UNI T/GM Nystatin 497125 UNIT/GM 01/03/2020 12:00:00 AM EST 1.0 {application} active Nystatin 741441 UNIT/GM eCW1 ([facility]) Nystatin 100 UNT/MG Topical Powder Nystatin 153452 UNI T/GM Nystatin 389445 UNIT/GM 01/03/2020 12:00:00 AM EST 1.0 {application} active Nystatin 769212 UNIT/GM eCW1 ([facility]) Nystatin 100 UNT/MG Topical Powder Nystatin 185714 UNI T/GM Nystatin 391524 UNIT/GM 01/03/2020 12:00:00 AM EST 1.0 {application} active Nystatin 067887 UNIT/GM eCW1 ([facility]) Nystatin 100 UNT/MG Topical Powder Nystatin 447592 UNI T/GM Nystatin 712137 UNIT/GM 01/03/2020 12:00:00 AM EST 1.0 {application} active Nystatin 890359 UNIT/GM eCW1 ([facility]) Nystatin 100 UNT/MG Topical Powder Nystatin 150758 UNI T/GM Nystatin 465251 UNIT/GM 01/03/2020 12:00:00 AM EST 1.0 {application} active Nystatin 649646 UNIT/GM eCW1 ([facility]) Nystatin 100 UNT/MG Topical Powder Nystatin 432991 UNI T/GM Nystatin 557771 UNIT/GM 01/03/2020 12:00:00 AM EST 1.0 {application} active Nystatin 278347 UNIT/GM eCW1 ([facility]) Nystatin 100 UNT/MG Topical Powder Nystatin 260916 UNI T/GM Nystatin 883840 UNIT/GM 01/03/2020 12:00:00 AM EST 1.0 {application} active Nystatin 612551 UNIT/GM eCW1 ([facility]) Nystatin 100 UNT/MG Topical Powder Nystatin 698176 UNI T/GM Nystatin 217717 UNIT/GM 01/03/2020 12:00:00 AM EST 1.0 {application} active Nystatin 134384 UNIT/GM eCW1 ([facility]) Nystatin 100 UNT/MG Topical Powder Nystatin 966935 UNI T/GM Nystatin 230345 UNIT/GM 01/03/2020 12:00:00 AM EST active 1 application eCW1 ([facility]) Nystatin 100 UNT/MG Topical Powder Nystatin 645654 UNI T/GM Nystatin 834863 UNIT/GM 01/03/2020 12:00:00 AM EST 1.0 {application} active Nystatin 630949 UNIT/GM eCW1 ([facility]) Nystatin 100 UNT/MG Topical Powder Nystatin 088743 UNI T/GM Nystatin 261630 UNIT/GM 01/03/2020 12:00:00 AM EST 1.0 {application} active Nystatin 039063 UNIT/GM eCW1 ([facility]) Nystatin 100 UNT/MG Topical Powder Nystatin 436701 UNI T/GM Nystatin 056177 UNIT/GM 01/03/2020 12:00:00 AM EST 1.0 {application} active Nystatin 077728 UNIT/GM eCW1 ([facility]) Nystatin 100 UNT/MG Topical Powder Nystatin 383758 UNI T/GM Nystatin 684762 UNIT/GM 01/03/2020 12:00:00 AM EST 1.0 {application} active Nystatin 389312 UNIT/GM eCW1 ([facility]) Nystatin 100 UNT/MG Topical Powder Nystatin 579442 UNI T/GM Nystatin 546312 UNIT/GM 01/03/2020 12:00:00 AM EST 1.0 {application} active Nystatin 464308 UNIT/GM eCW1 ([facility]) Nystatin 100 UNT/MG Topical Powder Nystatin 819264 UNI T/GM Nystatin 765937 UNIT/GM 01/03/2020 12:00:00 AM EST active 1 application eCW1 ([facility]) Nystatin 100 UNT/MG Topical Powder Nystatin 662004 UNI T/GM Nystatin 879044 UNIT/GM 01/03/2020 12:00:00 AM EST active 1 application eCW1 ([facility]) Acetaminophen 325 MG / Hydrocodone Alexus trate 5 MG Oral Tablet Hydrocodone- Acetaminophen 5-325 MG Hydrocodone-Acetaminophen 5-325 MG 12/03/2019 12:00:00 AM EST active take 1 tablet eCW 1 ([facility]) Acetaminophen 325 MG / Hydrocodone Alexus trate 5 MG Oral Tablet Hydrocodone- Acetaminophen 5-325 MG Hydrocodone-Acetaminophen 5-325 MG 12/03/2019 12:00:00 AM EST active take 1 tablet eCW 1 ([facility]) Acetaminophen 325 MG / Hydrocodone Alexus trate 5 MG Oral Tablet Hydrocodone- Acetaminophen 5-325 MG Hydrocodone-Acetaminophen 5-325 MG 12/03/2019 12:00:00 AM EST active take 1 tablet eCW 1 ([facility]) Acetaminophen 325 MG / Hydrocodone Alexus trate 5 MG Oral Tablet Hydrocodone- Acetaminophen 5-325 MG Hydrocodone-Acetaminophen 5-325 MG 12/03/2019 12:00:00 AM EST active take 1 tablet eCW 1 ([facility]) 30 ACTUAT fluticasone furoate 0.2 MG/ACT UAT / vilanterol 0.025 MG/ACTUAT Dry Powder Inhaler [Breo] Breo Ellipta 11/22/2019 12:00:00 AM EST RESPIRATORY active MEDENT ([facility], ) Prednisone 10 MG Oral Tablet Prednisone 11/01/2019 12:00:00 AM EST ORAL completed MEDENT ([facility], ) Furosemide 20 MG Oral Tablet Furosemide 11/01/2019 12:00:00 AM EST ORAL active MEDENT ([facility], ) 60 ACTUAT Budesonide 0.16 MG/ACTUAT / fo rmoterol fumarate 0.0045 MG/ACTUAT Metered Dose Inhaler [Symbicort] Symbicort 11/01/2019 12:00:00 AM EST RESPIRATORY completed MEDENT ( [facility], ) Insurance Providers Payer name Policy type / Coverage type Policy ID Covered democrat ID Covered democrat's relationship to knott Policy Knott Plan Information [facility] [id number] SP [id number] [facility] [id number] [place] [id number] [employer] [id number] SP [id number] MEDICARE [id number] SP [id number] MEDICARE C [id number] S [id number] [facility] O [id number] S [id number] [facility] [id number] 18 [id number] [employer] G[employer] PLUS -O/P [id number] [employer] MEDICARE HMO [id number] 18 [id number] [employer] [id number] SP [id number] MEDICARE [id number] SP [id number] [employer] GOLD PLUS -CLINIC [id number] 18 [id number] [employer] GOLD PLUS -PHYSICIAN [id number] [employer] GOLD O [id number] S [id number] [employer] O [id number] SP [id number] [employer] PPO [id number] SP [id number] Problems, Conditions, and Diagnoses Code Display Name Description Problem Type Effective Dates Data Source(s) 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 C hemical 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 Problem 12/16/2020 12:00:00 AM EST NETSMART ([facility]) T41.0X5S Adverse effect of inhaled anesthetics, s equela Adverse effect of inhaled anesthetics, sequela Problem 12/16/2020 12:00:00 AM EST NETS MART ([facility]) I25.10 Atherosclerotic heart diseas e of [place] coronary artery without angina pectoris Atherosclerotic heart disease of [place] coronary artery without angina pectoris Problem 12/16/2020 12:00:00 AM EST NETSMART ([facility]) I11.0 Hypertensive heart disease with heart fa ilure Hypertensive heart disease with heart failure Problem 12/16/2020 12:00:00 AM EST NETSMART ([facility]) I50.9 Heart failure, unspecified Heart failure, unspecified Problem 12/16/2020 12:00:00 AM EST NETSMART ([facility] ) I27.20 Pulmonary hypertension, unspecified Pulmonary hy pertension, unspecified Problem 12/16/2020 12:00:00 AM EST NETSMART ([facility]) M54.5 Low back pain Low back pain Problem 12/16/2020 12:00:00 AM EST NETSMART ([facility]) F33.9 Major depressive disorder, recurrent, un specified Major depressive disorder, recurrent, unspecified Problem 12/16/2020 12:00:00 AM EST NETSMART ([facility]) Z99.81 Dependence on supplemental oxygen Dependence on supplemental oxygen Problem 12/16/2020 12:00:00 AM EST NETSMART ([facility]) 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 of oral hypoglycemic drugs Problem 12/16/2020 12:00:00 AM EST NE TSMART ([facility]) Z79.82 shelter (current) use of aspirin 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 (cu rrent) use of aspirin Problem 12/16/2020 12:00:00 AM EST NETSMART ([facility]) Z95.5 Presence of coronary angioplasty implant and graft Presence of coronary angioplasty implant and graft Problem 12/16/2020 12:00:00 AM EST NET SMART ([facility]) Z91.81 History of falling History of falling Problem 12:00:00 AM EST NETSMART ([facility]) Z87.891 Personal history of nicotine dependence Personal history of nicotine dependence Problem 12/16/2020 12:00:00 AM EST NETSMART ([facility]) J44.9 Chronic obstructive pulmonary disease, u nspecified Chronic obstructive pulmonary disease, unspecified Problem 12/16/2020 12:00:00 AM EST NE TSMART ([facility]) J44.9 Chronic obstructive pulmonary disease, u nspecified Chronic obstructive pulmonary disease, unspecified Problem 12/11/2020 12:00:00 AM EST NE TSMART ([facility]) [id number] Allergic rhinitis Allergic rhinitis Problem 09/04/2020 12:00:00 AM EST MEDENT ([facility]) [id number] Patient post percutaneous transluminal c oronary angioplasty Patient post percutaneous transluminal coronary angioplasty Problem 12:00:00 AM EST MEDENT ([facility]) [id number] Essential hypertension Essential hypertension Problem 09/04/2020 12:00:00 AM EST MED[facility] ([facility]) [id number] Edema Edema Problem 09/04/2020 12:00:00 AM ES T MEDENT ([facility]) [id number] Low back pain Low back pain Problem 09/04/2020 12:00:00 AM EST MEDENT ([facility]) [id number] Recurrent major depressive episodes Recu rrent major depressive episodes Problem 09/04/2020 12:00:00 AM EST MEDENT ([facility]) [id number] Hyperlipidemia Hyperlipidemia Problem 09/04/2020 12:00: 00 AM EST MED[facility] (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 Problem 09/04/2020 12:00:00 AM EST MEDENT ([facility]) M81.8 [id number] Secondary osteoporosis Problem 08/07/2020 12 :00:00 AM EDT eCW1 ([facility]) [id number] Chronic diastolic heart failure Chronic diastoli c heart failure Problem 05/15/2020 12:00:00 AM EDT MED[facility] ([facility]) [id number] Mixed hyperlipidemia Mixed hyperlipidemia Problem 05/15/2020 12:00:00 AM EDT MED[facility] ([facility]) [id number] 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 Coronary arteriosclerosis in patient wit h history of previous myocardial infarction Problem 05/15/2020 12:00:00 AM EDT ME DENT ([facility]) [id number] Dietary management surveillance Dietary manageme nt surveillance Problem 05/15/2020 12:00:00 AM EDT MED[facility] ([facility]) [id number] Obesity Obesity Problem 05/15/2020 12:00:00 AM ED T MED[facility] ([facility]) [id number] Hyperlipidemia Hyperlipidemia Problem 05/15/2020 12:00: 00 AM EDT MED[facility] ([facility]) [id number] Chronic right-sided heart failure Chronic right- sided heart failure Problem 05/15/2020 12:00:00 AM EDT MED[facility] ([facility]) [id number] Essential hypertension Essential hypertension Problem 05/15/2020 12:00:00 AM EDT MED[facility] ([facility]) [id number] Patient post percutaneous transluminal c oronary angioplasty Patient post percutaneous transluminal coronary angioplasty Problem 12:00:00 AM EDT MED[facility] ([facility]) [id number] Old myocardial infarction Old myocardial infarction Pr oblem 05/15/2020 12:00:00 AM EDT MED[facility] ([facility]) I27.81 [id number] Cor pulmonale Problem 05/05/2020 12:00:00 AM EDT eCW1 ([facility]) Z91.030 [id number] Bee sting allergy Problem 04/09/2020 12:00:0 0 AM EDT eCW1 ([facility]) M48.061 [id number] Lumbar spinal stenosis Problem 03/26/2020 12 :00:00 AM EDT eCW1 ([facility]) M48.061 [id number] Lumbar spinal stenosis Problem 03/26/2020 12 :00:00 AM EDT eCW1 ([facility]) M48.062 60610398 Spinal stenosis of lumbar region with neurogenic claudication Problem 02/20/2020 12:00:00 AM EDT eCW1 ([facility]) M48.062 69058565 Spinal stenosis of lumbar region with neurogenic claudication Problem 02/20/2020 12:00:00 AM EDT eCW1 ([facility]) J30.2 [id number] Seasonal allergies Problem 01/07/2020 12:00: 00 AM EDT eCW1 ([facility]) J30.2 926215469 Seasonal allergies Problem 01/07/2020 12:00: 00 AM EDT eCW1 ([facility]) M79.18 80573313 Myalgia, other site Problem 10/26/2019 12:00 :00 AM EST eCW1 ([facility]) M51.16 [id number] Intervertebral disc disorders with radiculopathy, lumbar region Problem 10/26/2019 12:00:00 AM EST eCW1 ([facility]) M54.40 [id number] Lumbago with sciatica, unspecified side P roblem 10/26/2019 12:00:00 AM EST eCW1 ([facility]) M51.16 [id number] Intervertebral disc disorders with radiculopathy, lumbar region Problem 10/26/2019 12:00:00 AM EST eCW1 ([facility]) M54.40 [id number] Lumbago with sciatica, unspecified side P roblem 10/26/2019 12:00:00 AM EST eCW1 ([facility]) M79.18 [id number] Myalgia, other site Problem 10/26/2019 12:00 :00 AM EST eCW1 ([facility]) I2720 Pulmonary hypertension, unspecified Pulmonary hy pertension, unspecified Diagnosis 11/24/2020 11:03:00 AM EST [facility] I509 Heart failure, unspecified Heart failure, unspecified Diagnosis 11/24/2020 11:03:00 AM [facility] 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 C hemical 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 Diagnosis 11/24/2020 11:03:00 AM [facility] E860 Dehydration Dehydration Diagnosis 11/24/2020 11:03:00 AM [facility] J449 Chronic obstructive pulmonary disease, u nspecified Chronic obstructive pulmonary disease, unspecified Diagnosis 11/24/2020 11:03:00 AM [facility] D509 Iron deficiency anemia, unspecified Iron deficie ncy anemia, unspecified Diagnosis 10/17/2020 01:13:00 PM [facility] Z23 Encounter for immunization Encounter for immunization Diagnosis 09/04/2020 03:10:00 PM [facility] M8580 Other specified disorders of bone densit y and structure, unspecified site Other specified disorders of bone density and structure, unspecified site Diagnosis 09/04/2020 03:10:00 PM [facility] K219 Gastro-esophageal reflux disease without esophagitis Gastro-esophageal reflux disease without esophagitis Diagnosis 09/04/2020 03:10:00 PM [facility] E785 Hyperlipidemia, unspecified Hyperlipidemia, unspecifie d Diagnosis 09/04/2020 03:10:00 PM [facility] F339 Major depressive disorder, recurrent, un specified Major depressive disorder, recurrent, unspecified Diagnosis 09/04/2020 03:10:00 PM [facility] M545 Low back pain Low back pain Diagnosis 09/04/2020 03:10:00 PM [facility] R600 Localized edema Localized edema Diagnosis 09/04/2020 03:1 0:00 PM [facility] E119 Type 2 diabetes mellitus without complic ations Type 2 diabetes mellitus without complications Diagnosis 09/04/2020 03:10:[address] [facility] I10 Essential (primary) hypertension Essential (primary) h ypertension Diagnosis 09/04/2020 03:10:00 PM [facility] Z955 Presence of coronary angioplasty implant and graft Presence of coronary angioplasty implant and graft Diagnosis 09/04/2020 03:10:00 PM [facility] J309 Allergic rhinitis, unspecified Allergic rhinitis, unsp ecified Diagnosis 09/04/2020 03:10:00 PM [facility] Surgeries/Procedures Procedure Description Date Indications Data Source(s) Brief Emotional/Behav Assessment W/ Scoring Doc Per Standard Inst 09/04/2020 12:00:00 [facility] Admin Patient Focused Health Risk Assessment Instrument 09/04/2020 12:00:00 AM EST [facility] ([facility]) Spirometry 08/27/2020 12:00:00 [facility] MYOCARDIAL SPECT MULTIPLE STUDIES 06/03/2020 12:00:00 AM [facility] CV STRS TST XERS&/OR RX CONT ECG PHYS SI&R 06/03/2020 12:00:00 AM [facility]T [facility] ECG ROUTINE ECG W/LEAST 12 LDS W/I&R 05/15/2020 12:00: 00 AM EDT [facility] ([facility]) Arterial Pressure Waveform Analysis For Assessment Of Centra l Art 05/15/2020 12:00:00 AM [facility] Lumbar/Sacral w/ Imaging 03/26/2020 12:00:00 AM EDT eCW1 ([facility]) ESTABILISHED PATIENT [facility] CHARGE 020 12:00:00 AM EDT eCW1 ([facility]) Bronchospasm Evaluation 03/12/2020 12:00:00 AM EDT [facility] Maximum Breathing Capacity, Maximal Voluntary Ventilation 03/12/2020 12:00:00 AM ED[facility] Plethysmography Determination Lung Volumes & Per Airway Resi st 03/12/2020 12:00:00 AM EDT [facility] DIFFUSING CAPACITY 03/12/2020 12:00:00 AM EDT [facility] ([facility], ) PHYSICIAN TELEPHONE EVALUATION 11-20 MIN 03/11/2020 12 :00:00 AM EDT eCW1 ([facility]) RADXPS IN END [id number] PXD 01/01/2020 12:00:00 AM ES T eCW1 ([facility]) Office Visit, Est Pt., Level 2 FC 12/03/2019 12:00:00 AM EST eCW1 ([facility]) Office Visit, Est Pt., Level 3 PC 12/03/2019 12:00:00 AM EST eCW1 ([facility]) Aerosol Or Vapor Inhalations 11/26/2019 12:00:00 AM ES T MEDENT ([facility], ) Spirometry 11/01/2019 12:00:00 AM EST M EDENT ([facility], ) Aerosol Or Vapor Inhalations 11/01/2019 12:00:00 AM ES T MEDENT ([facility], ) Results ID Date Data Source [id number] 11/17/2020 02:46:00 AM EST [facility] Name Value Range Interpretation Code Description Data Debi rce(s) Supporting Document(s) SARS coronavirus 2 RNA [Presence] in Res piratory specimen by NAV with probe detection NEGATIVE [facility] This lab was ordered by [facility] a nd reported by [facility]. ID Date Data Source [id number] 10/17/2020 01:21:00 PM EST MEDENT ([facility]) Name Value Range Interpretation Code Description Data Debi rce(s) Supporting Document(s) Iron 70 ug/dL 42-135 [facility] ([facility]) FASTING 12 HOUR~.~.~<DG1.3.1>Z00.01</DG1.3.1><DG1.3.1>I10</DG1.3.1><DG1.3.1>E11.9</DG1.3.1> <DG1.3 Uibc 224 ug/dL 112-347 MED[facility] ([facility]) FASTING 12 HOUR~.~.~<DG1.3.1>Z00.01</DG1.3.1><DG1.3.1>I10</DG1.3.1><DG1.3.1>E11.9</DG1.3.1> <DG1.3 Iron Sat 24 % [facility] ([facility]) FASTING 12 HOUR~.~.~<DG1.3.1>Z00.01</DG1.3.1><DG1.3.1>I10</DG1.3.1><DG1.3.1>E11.9</DG1.3.1> <DG1.3 Tibc 294 ug/dL 250-450 [facility] ([facility]) FASTING 12 HOUR~.~.~<DG1.3.1>Z00.01</DG1.3.1><DG1.3.1>I10</DG1.3.1><DG1.3.1>E11.9</DG1.3.1> <DG1.3 ID Date Data Source [id number] 10/17/2020 01:21:00 PM EST [facility] ([facility]) Name Value Range Interpretation Code Description Data Debi rce(s) Supporting Document(s) Calcidiol [Mass/volume] in Serum or Plasma 27 ng/mL [facility] ([facility]) FASTING 12 HOUR~.~.~<DG1.3.1>Z00.01</DG1.3.1><DG1.3.1>I10</DG1.3.1><DG1.3.1>E11.9</DG1.3.1> <DG1.3 Hemoglobin A1c/Hemoglobin.total in Blood 5.8 % 4.4-6.1 [facility] ([facility]) FASTING 12 HOUR~.~.~<DG1.3.1>Z00.01</DG1.3.1><DG1.3.1>I10</DG1.3.1><DG1.3.1>E11.9</DG1.3.1> <DG1.3 Thyrotropin [Units/volume] in Serum or Plasma 3.37 uIU/mL 0.47-5.01 [facility] ([facility]) FASTING 12 HOUR~.~.~<DG1.3.1>Z00.01</DG1.3.1><DG1.3.1>I10</DG1.3.1><DG1.3.1>E11.9</DG1.3.1> <DG1.3 Thyroxine (T4) free [Mass/volume] in Serum or Plasma 1.28 ng/dL 0.93- 1.70 [facility] ([facility]) FASTING 12 HOUR~.~.~<DG1.3.1>Z00.01</DG1.3.1><DG1.3.1>I10</DG1.3.1><DG1.3.1>E11.9</DG1.3.1> <DG1.3 ID Date Data Source [id number] 10/17/2020 01:21:00 PM EST MEDENT ([facility]) Name Value Range Interpretation Code Description Data Debi rce(s) Supporting Document(s) Cholesterol 115 mg/dL 131-200 Below low normal [facility] ([facility]) FASTING 12 HOUR~.~.~<DG1.3.1>Z00.01</DG1.3.1><DG1.3.1>I10</DG1.3.1><DG1.3.1>E11.9</DG1.3.1> <DG1.3 Cve Panel Laboratory test result [facility] ([facility]) FASTING 12 HOUR~.~.~<DG1.3.1>Z00.01</DG1.3.1><DG1.3.1>I10</DG1.3.1><DG1.3.1>E11.9</DG1.3.1> <DG1.3 LDL 59 mg/dL 65-175 Below low normal [facility] ([facility]) FASTING 12 HOUR~.~.~<DG1.3.1>Z00.01</DG1.3.1><DG1.3.1>I10</DG1.3.1><DG1.3.1>E11.9</DG1.3.1> <DG1.3 Triglycerides 183 mg/dL 35-160 Above high normal MEDE NT ([facility]) FASTING 12 HOUR~.~.~<DG1.3.1>Z00.01</DG1.3.1><DG1.3.1>I10</DG1.3.1><DG1.3.1>E11.9</DG1.3.1> <DG1.3 HDL 30 mg/dL 29-86 [facility] ([facility]) FASTING 12 HOUR~.~.~<DG1.3.1>Z00.01</DG1.3.1><DG1.3.1>I10</DG1.3.1><DG1.3.1>E11.9</DG1.3.1> <DG1.3 LDL/HDL 1.97 1.47-3.22 [facility] ([facility]) FASTING 12 HOUR~.~.~<DG1.3.1>Z00.01</DG1.3.1><DG1.3.1>I10</DG1.3.1><DG1.3.1>E11.9</DG1.3.1> <DG1.3 Risk Factor 3.8 3.2-4.4 [facility] FASTING 12 HOUR~.~.~<DG1.3.1>Z00.01</DG1.3.1><DG1.3.1>I10</DG1.3.1><DG1.3.1>E11.9</DG1.3.1> <DG1.3 ID Date Data Source [id number] 10/17/2020 01:21:00 PM EST MEDENT ([facility]) Name Value Range Interpretation Code Description Data Debi rce(s) Supporting Document(s) Comprehensive [employer] Laboratory test result [facility] ([facility]) FASTING 12 HOUR~.~.~<DG1.3.1>Z00.01</DG1.3.1><DG1.3.1>I10</DG1.3.1><DG1.3.1>E11.9</DG1.3.1> <DG1.3 Potassium 4.1 meq/L 3.6-5.0 [facility] ([facility]) FASTING 12 HOUR~.~.~<DG1.3.1>Z00.01</DG1.3.1><DG1.3.1>I10</DG1.3.1><DG1.3.1>E11.9</DG1.3.1> <DG1.3 Sodium 142 meq/L 134-153 MED[facility] ([facility]) FASTING 12 HOUR~.~.~<DG1.3.1>Z00.01</DG1.3.1><DG1.3.1>I10</DG1.3.1><DG1.3.1>E11.9</DG1.3.1> <DG1.3 Glucose 70 mg/dL 65-110 [facility] ([facility]) FASTING 12 HOUR~.~.~<DG1.3.1>Z00.01</DG1.3.1><DG1.3.1>I10</DG1.3.1><DG1.3.1>E11.9</DG1.3.1> <DG1.3 Co2 26 meq/L 22-30 MED[facility] ([facility]) FASTING 12 HOUR~.~.~<DG1.3.1>Z00.01</DG1.3.1><DG1.3.1>I10</DG1.3.1><DG1.3.1>E11.9</DG1.3.1> <DG1.3 Chloride 103 meq/L 98-107 MED[facility] ([facility]) FASTING 12 HOUR~.~.~<DG1.3.1>Z00.01</DG1.3.1><DG1.3.1>I10</DG1.3.1><DG1.3.1>E11.9</DG1.3.1> <DG1.3 Creatinine 1.2 mg/dL 0.7-1.5 MED[facility] ([facility]) FASTING 12 HOUR~.~.~<DG1.3.1>Z00.01</DG1.3.1><DG1.3.1>I10</DG1.3.1><DG1.3.1>E11.9</DG1.3.1> <DG1.3 BUN/Creat 18 8-27 [facility] FASTING 12 HOUR~.~.~<DG1.3.1>Z00.01</DG1.3.1><DG1.3.1>I10</DG1.3.1><DG1.3.1>E11.9</DG1.3.1> <DG1.3 BUN 22 mg/dL 7-21 Above high normal MEDENT ([facility]) FASTING 12 HOUR~.~.~<DG1.3.1>Z00.01</DG1.3.1><DG1.3.1>I10</DG1.3.1><DG1.3.1>E11.9</DG1.3.1> <DG1.3 Albumin 4.3 g/dL 3.9-5.0 [facility] FASTING 12 HOUR~.~.~<DG1.3.1>Z00.01</DG1.3.1><DG1.3.1>I10</DG1.3.1><DG1.3.1>E11.9</DG1.3.1> <DG1.3 Total Protein 6.5 g/dL 6.3-8.2 [facility] ([facility]) FASTING 12 HOUR~.~.~<DG1.3.1>Z00.01</DG1.3.1><DG1.3.1>I10</DG1.3.1><DG1.3.1>E11.9</DG1.3.1> <DG1.3 Calcium 9.7 mg/dL 8.4-10.2 [facility] FASTING 12 HOUR~.~.~<DG1.3.1>Z00.01</DG1.3.1><DG1.3.1>I10</DG1.3.1><DG1.3.1>E11.9</DG1.3.1> <DG1.3 A/G Ratio 2.0 0.8-2.0 MED[facility] ([facility]) FASTING 12 HOUR~.~.~<DG1.3.1>Z00.01</DG1.3.1><DG1.3.1>I10</DG1.3.1><DG1.3.1>E11.9</DG1.3.1> <DG1.3 Globulin 2.2 GM/DL 2.4-3.2 Below low normal [facility] ( [facility]) FASTING 12 HOUR~.~.~<DG1.3.1>Z00.01</DG1.3.1><DG1.3.1>I10</DG1.3.1><DG1.3.1>E11.9</DG1.3.1> <DG1.3 Sgot/Ast 20 U/L 5-40 MED[facility] ([facility]) FASTING 12 HOUR~.~.~<DG1.3.1>Z00.01</DG1.3.1><DG1.3.1>I10</DG1.3.1><DG1.3.1>E11.9</DG1.3.1> <DG1.3 Alkaline Phos 139 U/L 38-126 Above high normal MEDE NT ([facility]) FASTING 12 HOUR~.~.~<DG1.3.1>Z00.01</DG1.3.1><DG1.3.1>I10</DG1.3.1><DG1.3.1>E11.9</DG1.3.1> <DG1.3 Total Bili Laboratory test result 0.2-1.3 ME DENT ([facility]) FASTING 12 HOUR~.~.~<DG1.3.1>Z00.01</DG1.3.1><DG1.3.1>I10</DG1.3.1><DG1.3.1>E11.9</DG1.3.1> <DG1.3 Anion Gap 13.0 mmol/L 8.0-16.0 MED[facility] ([facility]) FASTING 12 HOUR~.~.~<DG1.3.1>Z00.01</DG1.3.1><DG1.3.1>I10</DG1.3.1><DG1.3.1>E11.9</DG1.3.1> <DG1.3 Age 70 yrs MEDENT ([facility]) FASTING 12 HOUR~.~.~<DG1.3.1>Z00.01</DG1.3.1><DG1.3.1>I10</DG1.3.1><DG1.3.1>E11.9</DG1.3.1> <DG1.3 SGPT/Alt 25 U/L 7-56 MED[facility] ([facility]) FASTING 12 HOUR~.~.~<DG1.3.1>Z00.01</DG1.3.1><DG1.3.1>I10</DG1.3.1><DG1.3.1>E11.9</DG1.3.1> <DG1.3 Non-Aa GFR 47 mL/min MEDENT ([facility]) FASTING 12 HOUR~.~.~<DG1.3.1>Z00.01</DG1.3.1><DG1.3.1>I10</DG1.3.1><DG1.3.1>E11.9</DG1.3.1> <DG1.3 Afr Amer GFR Laboratory test result [facility] ([facility]) FASTING 12 HOUR~.~.~<DG1.3.1>Z00.01</DG1.3.1><DG1.3.1>I10</DG1.3.1><DG1.3.1>E11.9</DG1.3.1> <DG1.3 ID Date Data Source [id number] 10/17/2020 01:21:00 PM EST MEDENT ([facility]) Name Value Range Interpretation Code Description Data Debi rce(s) Supporting Document(s) Urinalysis Laboratory test result [facility] ([facility]) FASTING 12 HOUR~.~.~<DG1.3.1>Z00.01</DG1.3.1><DG1.3.1>I10</DG1.3.1><DG1.3.1>E11.9</DG1.3.1> <DG1.3 Source Laboratory test result [facility] ([facility]) FASTING 12 HOUR~.~.~<DG1.3.1>Z00.01</DG1.3.1><DG1.3.1>I10</DG1.3.1><DG1.3.1>E11.9</DG1.3.1> <DG1.3 Color Laboratory test result [facility] ([facility]) FASTING 12 HOUR~.~.~<DG1.3.1>Z00.01</DG1.3.1><DG1.3.1>I10</DG1.3.1><DG1.3.1>E11.9</DG1.3.1> <DG1.3 Spec [place] 1.015 1.001-1.030 [facility] ([facility]) FASTING 12 HOUR~.~.~<DG1.3.1>Z00.01</DG1.3.1><DG1.3.1>I10</DG1.3.1><DG1.3.1>E11.9</DG1.3.1> <DG1.3 Clarity Laboratory test result [facility] ([facility]) FASTING 12 HOUR~.~.~<DG1.3.1>Z00.01</DG1.3.1><DG1.3.1>I10</DG1.3.1><DG1.3.1>E11.9</DG1.3.1> <DG1.3 pH 5 5-9 [facility] ([facility]) FASTING 12 HOUR~.~.~<DG1.3.1>Z00.01</DG1.3.1><DG1.3.1>I10</DG1.3.1><DG1.3.1>E11.9</DG1.3.1> <DG1.3 Glucose Laboratory test result [facility] ([facility]) FASTING 12 HOUR~.~.~<DG1.3.1>Z00.01</DG1.3.1><DG1.3.1>I10</DG1.3.1><DG1.3.1>E11.9</DG1.3.1> <DG1.3 Bilirubin Laboratory test result [facility]) FASTING 12 HOUR~.~.~<DG1.3.1>Z00.01</DG1.3.1><DG1.3.1>I10</DG1.3.1><DG1.3.1>E11.9</DG1.3.1> <DG1.3 Ketone [facility] FASTING 12 HOUR~.~.~<DG1.3.1>Z00.01</DG1.3.1><DG1.3.1>I10</DG1.3.1><DG1.3.1>E11.9</DG1.3.1> <DG1.3 Nitrite Laboratory test result [facility]) FASTING 12 HOUR~.~.~<DG1.3.1>Z00.01</DG1.3.1><DG1.3.1>I10</DG1.3.1><DG1.3.1>E11.9</DG1.3.1> <DG1.3 Protein Laboratory test result [facility]) FASTING 12 HOUR~.~.~<DG1.3.1>Z00.01</DG1.3.1><DG1.3.1>I10</DG1.3.1><DG1.3.1>E11.9</DG1.3.1> <DG1.3 [facility]~.~.~<DG1.3.1>Z00.01</DG1.3.1><DG1.3.1>I10</DG1.3.1><DG1.3.1>E11.9</DG1.3.1> <DG1.3 Urobilinogen Laboratory test result [facility] ([facility]) FASTING 12 HOUR~.~.~<DG1.3.1>Z00.01</DG1.3.1><DG1.3.1>I10</DG1.3.1><DG1.3.1>E11.9</DG1.3.1> <DG1.3 Leuk Est Laboratory test result [facility] ([facility]) FASTING 12 HOUR~.~.~<DG1.3.1>Z00.01</DG1.3.1><DG1.3.1>I10</DG1.3.1><DG1.3.1>E11.9</DG1.3.1> <DG1.3 Microscopic Laboratory test result [facility] ([facility]) FASTING 12 HOUR~.~.~<DG1.3.1>Z00.01</DG1.3.1><DG1.3.1>I10</DG1.3.1><DG1.3.1>E11.9</DG1.3.1> <DG1.3 ID Date Data Source [id number] 10/17/2020 01:21:00 PM EST [facility] ([facility]) Name Value Range Interpretation Code Description Data Debi rce(s) Supporting Document(s) CBC W/Automated Diff [facility] FASTING 12 HOUR~.~.~<DG1.3.1>Z00.01</DG1.3.1><DG1.3.1>I10</DG1.3.1><DG1.3.1>E11.9</DG1.3.1> <DG1.3 RBC 4.75 10^6/uL 4.20-5.40 [facility] ([facility]) FASTING 12 HOUR~.~.~<DG1.3.1>Z00.01</DG1.3.1><DG1.3.1>I10</DG1.3.1><DG1.3.1>E11.9</DG1.3.1> <DG1.3 WBC 12.6 10^3/uL 4.2-11.0 Above high normal [facility] ([facility]) FASTING 12 HOUR~.~.~<DG1.3.1>Z00.01</DG1.3.1><DG1.3.1>I10</DG1.3.1><DG1.3.1>E11.9</DG1.3.1> <DG1.3 Hematocrit 40.5 % 37.0-47.0 [facility] ([facility]) FASTING 12 HOUR~.~.~<DG1.3.1>Z00.01</DG1.3.1><DG1.3.1>I10</DG1.3.1><DG1.3.1>E11.9</DG1.3.1> <DG1.3 Hemoglobin 12.6 g/dL 12.0-16.0 [facility] ([facility]) FASTING 12 HOUR~.~.~<DG1.3.1>Z00.01</DG1.3.1><DG1.3.1>I10</DG1.3.1><DG1.3.1>E11.9</DG1.3.1> <DG1.3 MCV 85.3 fL 81.0-101 [facility] ([facility]) FASTING 12 HOUR~.~.~<DG1.3.1>Z00.01</DG1.3.1><DG1.3.1>I10</DG1.3.1><DG1.3.1>E11.9</DG1.3.1> <DG1.3 MCH 26.5 pg 27.0-34.0 Below low normal [facility] ( [facility]) FASTING 12 HOUR~.~.~<DG1.3.1>Z00.01</DG1.3.1><DG1.3.1>I10</DG1.3.1><DG1.3.1>E11.9</DG1.3.1> <DG1.3 MCHC 31.1 g/dL 31.0-36.0 [facility] ([facility]) FASTING 12 HOUR~.~.~<DG1.3.1>Z00.01</DG1.3.1><DG1.3.1>I10</DG1.3.1><DG1.3.1>E11.9</DG1.3.1> <DG1.3 RDW 17.6 % 11.5-14.5 Above high normal [facility] ([facility]) FASTING 12 HOUR~.~.~<DG1.3.1>Z00.01</DG1.3.1><DG1.3.1>I10</DG1.3.1><DG1.3.1>E11.9</DG1.3.1> <DG1.3 Neut 79.8 % 37.0-80.0 [facility] ([facility]) FASTING 12 HOUR~.~.~<DG1.3.1>Z00.01</DG1.3.1><DG1.3.1>I10</DG1.3.1><DG1.3.1>E11.9</DG1.3.1> <DG1.3 MPV 10.2 fL 7.4-10.4 [facility] ([facility]) FASTING 12 HOUR~.~.~<DG1.3.1>Z00.01</DG1.3.1><DG1.3.1>I10</DG1.3.1><DG1.3.1>E11.9</DG1.3.1> <DG1.3 Platelets 326 10^3/uL 150-450 [facility] ([facility]) FASTING 12 HOUR~.~.~<DG1.3.1>Z00.01</DG1.3.1><DG1.3.1>I10</DG1.3.1><DG1.3.1>E11.9</DG1.3.1> <DG1.3 Lymph 10.5 % 25.0-40.0 Below low normal [facility] ( [facility]) FASTING 12 HOUR~.~.~<DG1.3.1>Z00.01</DG1.3.1><DG1.3.1>I10</DG1.3.1><DG1.3.1>E11.9</DG1.3.1> <DG1.3 [place] 6.3 % 3.0-8.0 [facility] ([facility]) FASTING 12 HOUR~.~.~<DG1.3.1>Z00.01</DG1.3.1><DG1.3.1>I10</DG1.3.1><DG1.3.1>E11.9</DG1.3.1> <DG1.3 %Ig 0.5 % 0.0-0.0 Above high normal [facility] ([facility]) FASTING 12 HOUR~.~.~<DG1.3.1>Z00.01</DG1.3.1><DG1.3.1>I10</DG1.3.1><DG1.3.1>E11.9</DG1.3.1> <DG1.3 Eos 2.2 % 0.0-7.0 [facility] ([facility]) FASTING 12 HOUR~.~.~<DG1.3.1>Z00.01</DG1.3.1><DG1.3.1>I10</DG1.3.1><DG1.3.1>E11.9</DG1.3.1> <DG1.3 Baso 0.7 % 0.0-2.5 [facility] ([facility]) FASTING 12 HOUR~.~.~<DG1.3.1>Z00.01</DG1.3.1><DG1.3.1>I10</DG1.3.1><DG1.3.1>E11.9</DG1.3.1> <DG1.3 #Lymph 1.33 10^3/uL 0.60-3.40 [facility] ([facility]) FASTING 12 HOUR~.~.~<DG1.3.1>Z00.01</DG1.3.1><DG1.3.1>I10</DG1.3.1><DG1.3.1>E11.9</DG1.3.1> <DG1.3 #Neut 10.06 10^3/uL 2.00-6.90 Above high normal [facility] ([facility]) FASTING 12 HOUR~.~.~<DG1.3.1>Z00.01</DG1.3.1><DG1.3.1>I10</DG1.3.1><DG1.3.1>E11.9</DG1.3.1> <DG1.3 %NRBC 0.0 % 0.0-0.0 [facility] ([facility]) FASTING 12 HOUR~.~.~<DG1.3.1>Z00.01</DG1.3.1><DG1.3.1>I10</DG1.3.1><DG1.3.1>E11.9</DG1.3.1> <DG1.3 #[place] 0.80 10^3/uL 0.00-0.90 [facility] ([facility]) FASTING 12 HOUR~.~.~<DG1.3.1>Z00.01</DG1.3.1><DG1.3.1>I10</DG1.3.1><DG1.3.1>E11.9</DG1.3.1> <DG1.3 #Eos 0.28 10^3/uL 0.00-0.70 [facility] FASTING 12 HOUR~.~.~<DG1.3.1>Z00.01</DG1.3.1><DG1.3.1>I10</DG1.3.1><DG1.3.1>E11.9</DG1.3.1> <DG1.3 #Baso 0.09 10^3/uL 0.00-0.20 [facility] ([facility]) FASTING 12 HOUR~.~.~<DG1.3.1>Z00.01</DG1.3.1><DG1.3.1>I10</DG1.3.1><DG1.3.1>E11.9</DG1.3.1> <DG1.3 #NRBC 0.00 10^3/uL 0.00-0.00 [facility] ([facility]) FASTING 12 HOUR~.~.~<DG1.3.1>Z00.01</DG1.3.1><DG1.3.1>I10</DG1.3.1><DG1.3.1>E11.9</DG1.3.1> <DG1.3 #Ig 0.06 10^3/uL 0.00-0.10 [facility] ([facility]) FASTING 12 HOUR~.~.~<DG1.3.1>Z00.01</DG1.3.1><DG1.3.1>I10</DG1.3.1><DG1.3.1>E11.9</DG1.3.1> <DG1.3 RBC Morph Laboratory test result [facility] ([facility]) FASTING 12 HOUR~.~.~<DG1.3.1>Z00.01</DG1.3.1><DG1.3.1>I10</DG1.3.1><DG1.3.1>E11.9</DG1.3.1> <DG1.3 Manual Diff Laboratory test result [facility]) FASTING 12 HOUR~.~.~<DG1.3.1>Z00.01</DG1.3.1><DG1.3.1>I10</DG1.3.1><DG1.3.1>E11.9</DG1.3.1> <DG1.3 ID Date Data Source [id number] 10/21/2020 09:06:00 AM [facility] Name Value Range Interpretation Code Description Data Debi rce(s) Supporting Document(s) Iron [Mass/volume] in Serum or Plasma 70 UG/DL 42 - 135 [facility] Iron binding capacity.unsaturated [Mass/volume] in Serum or Plasma 224 UG/DL 112 - 347 [facility] Iron binding capacity [Mass/volume] in Serum or Plasma 294 ug/dL 250 - 450 [facility] Iron saturation [Mass Fraction] in Serum or Plasma 24 % [facility] ID Date Data Source [id number] 10/17/2020 02:46:00 PM [facility] Name Value Range Interpretation Code Description Data Debi rce(s) Supporting Document(s) Thyroxine (T4) free index in Serum or Plasma by calculation 1.28 NG/DL 0.93 - 1.70 [facility] ID Date Data Source [id number] 10/17/2020 02:46:00 PM [facility] Name Value Range Interpretation Code Description Data Debi rce(s) Supporting Document(s) Thyrotropin [Units/volume] in Serum or Plasma by Detec tion limit <= 0.05 mIU/L 3.37 uIU/mL 0.47 - 5.01 [facility] ID Date Data Source [id number] 10/17/2020 02:46:00 PM [facility] Name Value Range Interpretation Code Description Data Debi rce(s) Supporting Document(s) Calcidiol [Moles/volume] in Serum or Plasma 27 NG/ML [facility] VITAMIN-D(2 5HYDROXY) Deficiency: <=20 ng/ml Insufficiency: 21-29 ng/ml Preferred level: => 30 ng/ml ID Date Data Source [id number] 10/17/2020 02:26:00 PM [facility] Name Value Range Interpretation Code Description Data Debi rce(s) Supporting Document(s) Hemoglobin A1c/Hemoglobin.total in Blood 5.8 % 4.4 - 6.1 [facility] {A1]{HB] ID Date Data Source [id number] 10/17/2020 02:18:00 PM EST [facility] Name Value Range Interpretation Code Description Data Debi rce(s) Supporting Document(s) CVE PANEL [facility] al LIPID PANEL Cholesterol [Mass/volume] in Serum or Plasma 115 MG/DL 131 - 200 L [facility] Deprecated Triglyceride [Mass/volume] in Serum or Plasma 183 MG/DL 3 5 - 160 H [facility] HDL 30 MG/DL 29 - 86 [facility] Cholesterol in LDL [Mass/volume] in Serum or Plasma by Direc t assay 59 mg/dL 65 - 175 L [facility] Cholesterol.total/Cholesterol in HDL [Mass Ratio] in Serum o r Plasma 3.8 3.2 - 4.4 [facility] LDL/HDL 1.97 1.47 - 3.22 [facility] ital CVE RISK CHOL/HDL LDL/HDLMEN: 1/2 AVERAGE 3.43 1.00 AVERAGE 4.97 3.55 2X AVERAGE 9.55 6.25 3X AVERAGE 23.99 7.99WOMEN: 1/2 AVERAGE 3.27 1.47 AVERAGE 4.44 3.22 2X AVERAGE 7.05 5.03 3X AVERAGE 11.04 6.14 ID Date Data Source [id number] 10/17/2020 02:18:00 PM EST [facility] Name Value Range Interpretation Code Description Data Debi rce(s) Supporting Document(s) COMPREHENSIVE METABOLIC PANEL [facility] COMPREHENSIVE METABOLIC PANEL Sodium [Moles/volume] in Serum or Plasma 142 mEq/L 134 - 153 [facility] Potassium [Moles/volume] in Serum or Plasma 4.1 mEq/L 3.6 - 5.0 [facility] Chloride [Moles/volume] in Serum or Plasma 103 mEq/L 98 - 107 [facility] Carbon dioxide, total [Moles/volume] in Serum or Plasma 26 MEQ/L 22 - 30 [facility] Glucose [Mass/volume] in Serum or Plasma 70 MG/DL 65 - 110 [facility] BUN 22 MG/DL 7 - 21 [facility] Creatinine [Mass/volume] in Serum or Plasma 1.2 MG/DL 0.7 - 1.5 [facility] BUN/CREAT 18 8 - 27 [facility] al Protein [Mass/volume] in Serum or Plasma 6.5 G/DL 6.3 - 8.2 [facility] Albumin [Mass/volume] in Serum or Plasma 4.3 G/DL 3.9 - 5.0 [facility] Globulin [Mass/volume] in Serum by calculation 2.2 GM/DL 2.4 - 3.2 L [facility] A/G RATIO 2.0 0.8 - 2.0 [facility] Calcium [Mass/volume] in Serum or Plasma 9.7 MG/DL 8.4 - 10.2 [facility] Bilirubin.total [Mass/volume] in Serum or Plasma <0.7 MG/DL 0.2 - 1.3 [facility] Alkaline phosphatase [Enzymatic activity/volume] in Serum or Plasma 139 U/L 38 - 126 H [facility] Aspartate aminotransferase [Enzymatic activity/volume] in Serum or Plasma 20 U/L 5 - 40 [facility] Alanine aminotransferase [Enzymatic activity/volume] in Seru m or Plasma 25 U/L 7 - 56 [facility] Anion gap 3 in Serum or Plasma 13.0 mmol/L 8.0 - 16.0 [facility] AGE 70 yrs [facility] NON-AA GFR 47 mL/min [facility] AFR AMER GFR >60 [facility] Male GFR In terprentation [...] >32 mL/min Normal ID Date Data Source [id number] 10/17/2020 01:55:00 PM EST [facility] Name Value Range Interpretation Code Description Data Debi rce(s) Supporting Document(s) UR[facility]YSIS [facility] URINALYSIS SOURCE R [facility] COLOR yellow NORMAL: Yellow [facility]ital CLARITY clear NORMAL: Clear [facility] spital Specific gravity of Urine by Test strip 1.015 1.001 - 1.030 [facility] pH 5 5 - 9 [facility] Glucose [Mass/volume] in Urine by Test strip NORM NORMAL: Negat [facility] Bilirubin.total [Presence] in Urine by Test strip NEG NORMAL: Negative [facility] Ketones [Presence] in Urine by Test strip NEG NORMAL: Negative [facility] Protein [Mass/volume] in Urine by Test strip NEG NORMAL: Negat [facility] Nitrite [Presence] in Urine by Test strip NEG NORMAL: Negative [facility] BLOOD NEG NORMAL: Negative [facility] Leukocyte esterase [Presence] in Urine by Test strip NEG RAMOS L: Negative [facility] Urobilinogen [Mass/volume] in Urine by Test strip NOR less diego n 1.0 mg/dL [facility] MICROSCOPIC Not Indicate [facility]ital ID Date Data Source [id number] 10/17/2020 01:49:00 PM EST [facility] Name Value Range Interpretation Code Description Data Debi rce(s) Supporting Document(s) CBC W/AUTOMATED DIFF [facility] COMPLETE BLOOD COUNT Leukocytes [#/volume] in Blood by Automated count 12.6 10^3/uL 4.2 - 11.0 H [facility] Erythrocytes [#/volume] in Blood by Automated count 4.75 10^6/uL 4. 20 - 5.40 [facility] Hemoglobin [Mass/volume] in Blood 12.6 g/dL 12.0 - 16.0 [facility] Hematocrit [Volume Fraction] of Blood by Automated count 40.5 % 3 7.0 - 47.0 [facility] Erythrocyte mean corpuscular volume [Entitic volume] by Auto mated count 85.3 fL 81.0 - 101 [facility] Erythrocyte mean corpuscular hemoglobin [Entitic mass] by Automated count 26.5 pg 27.0 - 34.0 L [facility] Erythrocyte mean corpuscular hemoglobin concentration [Mass/volume] by Automated count 31.1 g/dL 31.0 - 36.0 [facility] Erythrocyte distribution width [Ratio] by Automated count 17.6 % 11.5 - 14.5 H [facility] Platelets [#/volume] in Blood by Automated count 326 10^3/uL 150 - 45 0 [facility] Platelet mean volume [Entitic volume] in Blood by Automated count 10.2 fL 7.4 - 10.4 [facility] Neutrophils/100 leukocytes in Blood by Automated count 79.8 % 37. 0 - 80.0 [facility] Lymphocytes/100 leukocytes in Blood by Manual count 10.5 % 25.0 - 40.0 L [facility] Monocytes/100 leukocytes in Blood by Automated count 6.3 % 3.0 - 8.0 [facility] Eosinophils/100 leukocytes in Blood by Automated count 2.2 % 0.0 - 7.0 [facility] Basophils/100 leukocytes in Blood by Automated count 0.7 % 0.0 - 2.5 [facility] %IG 0.5 % 0.0 - 0.0 H [facility] al %NRBC 0.0 % 0.0 - 0.0 [facility] al Neutrophils [#/volume] in Blood by Automated count 10.06 10^3/uL 2. 00 - 6.90 H [facility] Lymphocytes [#/volume] in Blood by Automated count 1.33 10^3/uL 0.60 - 3.40 [facility] Monocytes [#/volume] in Blood by Automated count 0.80 10^3/uL 0.00 - 0.90 [facility] Eosinophils [#/volume] in Blood by Automated count 0.28 10^3/uL 0.00 - 0.70 [facility] Basophils [#/volume] in Blood by Automated count 0.09 10^3/uL 0.00 - 0.20 [facility] #IG 0.06 10^3/uL 0.00 - 0.10 [facility] #NRBC 0.00 10^3/uL 0.00 - 0.00 [facility]ital MANUAL DIFF NOT INDICATED [facility] RBC MORPH NOT INDICATED [facility] ID Date Data Source [id number] 09/16/2020 08:49:00 AM EST [facility] ([facility]) Name Value Range Interpretation Code Description Data Debi rce(s) Supporting Document(s) Appearance, Urine Laboratory test result Normal (applies to non-numeric results) [facility] ([facility]) Color, Urine Laboratory test result Normal (applies to non -numeric results) [facility] Specific [place] Urine Auto 1.015 1.002-1.035 Norm al (applies to non-numeric results) [facility] Protein, Urine Auto Laboratory test result Ramos l (applies to non-numeric results) [facility] ([facility]) PH,Urine 5.0 units 5.0-9.0 Normal (applies to non-numeric resul ts) [facility] Ketone, Urine Auto Laboratory test result Normal (applies to non-numeric results) [facility] Urobilinogen, Urine Auto 0.2 mg/dL 0.0-2.0 Normal (applies to non-numeric results) [facility] Glucose, Urine (Ua) Auto Laboratory test result Normal (applies to non-numeric results) [facility] ([facility]) Nitrite, Urine Auto Laboratory test result Ramos l (applies to non-numeric results) [facility] ([facility]) Bilirubin, Urine Auto Laboratory test result Nor mal (applies to non-numeric results) [facility] WBC, Urine Auto 2 /HPF 0-3 Normal (applies to non-numeric results) [facility] Blood, Urine Blood Laboratory test result Normal (applies to non-numeric results) [facility] ([facility]) Leukocyte Esterase, Urine Auto Laboratory test result Abov e high normal [facility] Squamous Epithelial Cell Ur AU 0 /HPF 0-6 N ormal (applies to non-numeric results) [facility] RBC, Urine Auto 0 /HPF 0-3 Normal (applies to non-numeric results) [facility] Bacteria, Urine Auto Laboratory test result Norm al (applies to non-numeric results) [facility] ([facility]) Hyaline Cast, Urine Auto 0 /LPF 0-1 Normal (applies to non -numeric results) [facility] ([facility]) ID Date Data Source [id number] 09/16/2020 08:43:00 AM EST [facility] ([facility]) Name Value Range Interpretation Code Description Data Debi rce(s) Supporting Document(s) Red Blood Count 5.11 10 4.00-5.40 Normal (applies to non-numeric results) [facility] ([facility]) Hemoglobin 13.3 g/dL 12.0-15.5 Normal (applies to non-numeric resul ts) [facility] ([facility]) White Blood Count 10.4 10 4.0-10.0 Above [facility] Mean Corpuscular Volume 83.0 fl 80.0-96.0 Normal ( applies to non-numeric results) [facility] ([facility]) Hematocrit 42.4 % 36.0-47.0 Normal (applies to non-numeric resul ts) [facility] ([facility]) Mean Corpuscular Hemoglobin 26.0 pg 27.0-33.0 Below low normal [facility] ([facility]) Mean Corpuscular HGB Conc 31.4 g/dL 32.0-36.5 Below low normal [facility] Red Cell Distribution Width 14.1 % 11.5-14.5 Norm al (applies to non-numeric results) [facility] ([facility]) Platelet Count, Automated 276 10 150-450 Normal (applies to non-numeric results) [facility] ([facility]) Lymph % 13.9 % 24.0-44.0 Below low normal [facility] ( [facility]) Neutrophils % 74.9 % 36.0-66.0 Above high normal [facility] ([facility]) [place] % 6.1 % 0.0-5.0 Above high normal [facility] ([facility]) Baso % 0.6 % 0.0-1.0 Normal (applies to non-numeric resul ts) [facility] ([facility]) Eos % 4.2 % 0.0-3.0 Above high normal [facility] ([facility]) Immature Granulocyte % 0.3 % 0-3.0 Normal (applies to non-n umeric results) [facility] ([facility]) Nucleated Red Blood Cell % 0.0 % 0-0 Normal (applies to n on-numeric results) [facility] ([facility]) Neutrophils # 7.8 10 1.5-8.5 Normal (applies to non-numeric re sults) [facility] ([facility]) Lymph # 1.4 10 1.5-5.0 Below low normal [facility] ( [facility]) [place] # 0.6 10 0.0-0.8 Normal (applies to non-numeric resul ts) [facility] ([facility]) Baso # 0.1 10 0.0-0.2 Normal (applies to non-numeric resul ts) [facility] ([facility]) Eos # 0.4 10 0.0-0.5 Normal (applies to non-numeric resul ts) [facility] ([facility]) ID Date Data Source [id number] 09/16/2020 08:43:00 AM EST [facility] ([facility]) Name Value Range Interpretation Code Description Data Debi rce(s) Supporting Document(s) Hemoglobin A1c 5.7 % Normal (applies to non-numeric r esults) [facility] ([facility]) <content>REFERENCE RANGES:</content><br/ ><content></content>
<content><=5.6% NORMAL</content>
<content>5.7-6.4% SUGGESTS IMPAIRED GLUCOSE METABOLISM/PREDIABETIC</content>
<content>>= 6.5% ABNORMAL</content>
<content></content> Estimated Average Glucose 117 mg/dL 60-110 Above high normal [facility] ([facility]) ID Date Data Source [id number] 09/16/2020 08:43:00 AM EST [facility] ([facility]) Name Value Range Interpretation Code Description Data Debi rce(s) Supporting Document(s) Triglycerides Level 212 mg/dL Above high normal [facility] ([facility]) Cholesterol Level 140 mg/dL Normal (applies to non-numeri c results) [facility] ([facility]) HDL Cholesterol 40 mg/dL Normal (applies to non-numeric results) [facility] ([facility]) Non-HDL-C 100 mg/dL Normal (applies to non-numeric resul ts) [facility] ([facility]) Cholesterol Risk Ratio 3.500 Normal (applies to non-n umeric results) [facility] ([facility]) LDL Cholesterol 58 mg/dL Normal (applies to non-numeric results) [facility] ([facility]) ID Date Data Source [id number] 09/16/2020 08:43:00 AM EST [facility] ([facility]) Name Value Range Interpretation Code Description Data Debi rce(s) Supporting Document(s) Calcidiol [Mass/volume] in Serum or Plasma 13.6 ng/mL 30.0- 100.0 Below low normal [facility] ([facility]) ID Date Data Source [id number] 09/16/2020 08:43:00 AM EST [facility] ([facility]) Name Value Range Interpretation Code Description Data Debi rce(s) Supporting Document(s) Thyrotropin [Units/volume] in Serum or Plasma Laboratory test result [facility] ([facility]) Thyroxine (T4) free [Mass/volume] in Serum or Plasma Laboratory tash t result [facility] ([facility]) ID Date Data Source [id number] 09/16/2020 08:43:00 AM EST [facility] ([facility]) Name Value Range Interpretation Code Description Data Debi rce(s) Supporting Document(s) Glucose, Fasting 101 mg/dL 70-100 Above high normal [facility] ([facility]) Creatinine For GFR 1.06 mg/dL 0.55-1.30 Normal (applies to non -numeric results) [facility] ([facility]) Glomerular Filtration Rate 54.6 Normal (applies to n on-numeric results) [facility] ([facility]) <content>Units are mL/min/1.73 m2</content>
<content></content>
<content>Chronic Kidney Disease Staging per NKF:</content>
<content></content>
<content>Stage I & II GFR >=60 Normal to Mildly Decreased</content>
<content>Stage III GFR 30- 59 Moderately Decreased</content>
<content>Stage IV GFR 15-29 Severely Decreased</content>
<content>Stage V GFR <15 Very Little GFR Left</content>
<content>ESRD GFR <15 on GEOGRAPHY HEAD</content>
<content></content> Blood Urea Nitrogen 15 mg/dL 7-18 Normal (applies to non-nume reece results) [facility] ([facility]) Chloride Level 109 meq/L 98-107 Above high normal [facility] ([facility]) Sodium Level 141 meq/L 136-145 Normal (applies to non-numeric res ults) [facility] ([facility]) Potassium Serum 3.9 meq/L 3.5-5.1 Normal (applies to non-numeric results) [facility] ([facility]) Calcium Level 9.5 mg/dL 8.8-10.2 Normal (applies to non-numeric re sults) [facility] ([facility]) Anion Gap 8 meq/L 8-16 Normal (applies to non-numeric resul ts) [facility] ([facility]) Carbon Dioxide Level 24 meq/L 21-32 Normal (applies to non-num tacho results) [facility] ([facility]) Alkaline Phosphatase 98 U/L 45-117 Normal (applies to non-num tacho results) [facility] ([facility]) Alt/SGPT 16 U/L 12-78 Normal (applies to non-numeric resul ts) [facility] ([facility]) Ast/Sgot 10 U/L 7-37 Normal (applies to non-numeric resul ts) [facility] ([facility]) Total Protein 7.3 GM/DL 6.4-8.2 Normal (applies to non-numeric re sults) [facility] ([facility]) Bilirubin,Total 0.7 mg/dL 0.2-1.0 Normal (applies to non-numeric results) [facility] ([facility]) Albumin 3.7 GM/DL 3.2-5.2 Normal (applies to non-numeric resul ts) [facility] ([facility]) Albumin/Globulin Ratio 1.0 1.2-2.2 Below low normal [facility] ([facility]) ID Date Data Source [id number] 09/16/2020 08:43:00 AM EST [facility] ([facility]) Name Value Range Interpretation Code Description Data Debi rce(s) Supporting Document(s) Free T4 1.11 ng/dL 0.76-1.46 Normal (applies to non-numeric resul ts) [facility] ([facility]) Thyroid Stimulating Hormone 2.180 uIU/ML 0.358-3.740 Norm al (applies to non- numeric results) [facility] ([facility]) ID Date Data Source [id number] 07/31/2020 10:01:00 AM EDT [facility] Name Value Range Interpretation Code Description Data Debi rce(s) Supporting Document(s) Red Blood Count 4.10 4.00-5.40 [facility] ([facility] White Blood Count 6.8 4.0-10.0 [facility] ([facility]) Platelets 240 150-450 [facility] Hemoglobin 11.1 [facility] ([facility]) Hematocrit 33.7 [facility] ([facility]) ID Date Data Source [id number] 04/23/2020 02:44:00 PM EDT [facility] ([facility]) Name Value Range Interpretation Code Description Data Debi rce(s) Supporting Document(s) White Blood Count 10.6 5.0-10.0 [facility] ([facility] Platelets 365 172-450 [facility] ([facility] Red Blood Count 4.79 4.00-5.40 [facility] ([facility] Hemoglobin 12.5 [facility] ([facility] Hematocrit 39.5 [facility] ([facility] ID Date Data Source [id number] 04/23/2020 02:44:00 PM EDT [facility] ([facility]) Name Value Range Interpretation Code Description Data Debi rce(s) Supporting Document(s) Magnesium Level 2.3 1.8-2.4 [facility] ([facility]) ID Date Data Source [id number] 04/23/2020 02:44:00 PM EDT [facility] Name Value Range Interpretation Code Description Data Debi rce(s) Supporting Document(s) Glucose 71 70-100 [facility] ([facility] Blood Urea Nitrogen 27 7-18 [facility] ([facility]) Sodium 140 136-145 [facility] Creatinine 1.07 0.6-1.0 [facility] ([facility]) Potassium 4.0 3.5-5.1 [facility] ([facility]) Chloride 108 98-107 [facility] Calcium 9.0 8.2-9.6 [facility] Carbon Dioxide 25 21-32 [facility] ([facility]) Glomerular filtration rate/1.73 sq M.pre dicted [Volume Rate/Area] in Serum or Plasma by Creatinine-based formula (MDRD) 54.0 [facility] ([facility]) ID Date Data Source [id number] 04/18/2020 02:49:00 PM EDT [facility] ([facility]) Name Value Range Interpretation Code Description Data Debi rce(s) Supporting Document(s) Natriuretic peptide.B prohormone N-Terminal [Mass/volu me] in Serum or Plasma 2222 [facility] ([facility]) Troponin Laboratory test result [facility] ([facility]) ID Date Data Source [id number] 04/18/2020 02:49:00 PM EDT [facility] ([facility]) Name Value Range Interpretation Code Description Data Debi rce(s) Supporting Document(s) Creatine kinase [Enzymatic activity/volume] in Serum or Plasma 119 [facility] ([facility]) CPK-MB 3.0 [facility] ([facility]) ID Date Data Source [id number] 04/17/2020 03:01:00 PM EDT [facility] ([facility] Name Value Range Interpretation Code Description Data Debi rce(s) Supporting Document(s) Thyroid Stimulating Hormone 6.590 ME DENT ([facility]) ID Date Data Source NASAL AND SINUS CULTURE 12/03/2019 12:00:00 AM EST eCW1 ([facility]ly [facility]) Name Value Range Interpretation Code Description Data Debi rce(s) Supporting Document(s) FULL REPORT IN LAB NOTES (eCW and Medent). NASAL AND SINUS CULTURE eCW1 ([facility]) ID Date Data Source [id number] 11/22/2019 05:23:00 PM EST MEDENT ([facility], ) Name Value Range Interpretation Code Description Data Edbi rce(s) Supporting Document(s) Rheumatoid factor [Units/volume] in Serum or Plasma Laboratory t est result Normal (applies to non-numeric results) [facility], ) will discuss at follow-up Cyclic citrullinated peptide IgG Ab [Units/volume] in Serum or Plasma 10 units 0-19 Normal (applies to non-numeric results) [facility] ([facility], ) will discuss at follow-up ID Date Data Source [id number] 11/22/2019 05:23:00 PM EST MEDENT ([facility]) Name Value Range Interpretation Code Description Data Debi rce(s) Supporting Document(s) Aureobasidium [place] Laboratory test result N ormal (applies to non-numeric results) [facility], ) will discuss at follow-up Aspergillus Fumigatus AB Laboratory test result Normal (applies to non-numeric results) [facility] ([facility]) will discuss at follow-up Micropolyspora Faeni AB Laboratory test result N ormal (applies to non-numeric results) [facility] ([facility]) will discuss at follow-up [place] Serum AB Laboratory test result Normal (a pplies to non-numeric results) [facility] ([facility]) will discuss at follow-up Thermoactinomyces Sacchari Laboratory test result Normal (applies to non- numeric results) [facility] ([facility]) will discuss at follow-up Thermoactinomyces Vulgaris Laboratory test result Normal (applies to non- numeric results) [facility] ([facility]) will discuss at follow-up ID Date Data Source [id number] 11/22/2019 05:23:00 PM EST MEDEARNEST ([facility]) Name Value Range Interpretation Code Description Data Debi rce(s) Supporting Document(s) Glucose, Fasting 114 mg/dL 70-100 Above high normal [facility]) will discuss at follow-up Glomerular Filtration Rate 48.8 Normal (applies to n on-numeric results) [facility] ([facility]) will discuss at follow-up Blood Urea Nitrogen 17 mg/dL 7-18 Normal (applies to non-nume reece results) [facility] ([facility]) will discuss at follow-up Creatinine For GFR 1.17 mg/dL 0.55-1.30 Normal (applies to non -numeric results) [facility] ([facility]) will discuss at follow-up Sodium Level 142 meq/L 136-145 Normal (applies to non-numeric res ults) [facility] ([facility]) will discuss at follow-up Potassium Serum 4.1 meq/L 3.5-5.1 Normal (applies to non-numeric results) [facility] ([facility]) will discuss at follow-up Carbon Dioxide Level 29 meq/L 21-32 Normal (applies to non-num tacho results) [facility] ([facility]) will discuss at follow-up Chloride Level 106 meq/L 98-107 Normal (applies to non-numeric r esults) [facility] ([facility]) will discuss at follow-up Anion Gap 7 meq/L 8-16 Below low normal [facility] ( [facility]) will discuss at follow-up Calcium Level 9.0 mg/dL 8.8-10.2 Normal (applies to non-numeric re sults) [facility] ([facility]) will discuss at follow-up Procedure Social History Code Duration Value Status Description Data Source(s ) Smoking 12/12/2020 12:00:00 AM EST Former Smoker completed Former Smoker eCW1 ([facility]) Smoking 12/08/2020 12:00:00 AM EST - 10/31/2013 12:00:00 AM EST Patient is a former smoker completed Patient is a former smoker SHERRON ([facility], ) Smoking 08/27/2020 12:00:00 AM EDT Former Smoker completed Former Smoker eCW1 ([facility]) Smoking 08/27/2020 12:00:00 AM EDT Former Smoker completed Former Smoker eCW1 ([facility]) Smoking 08/27/2020 12:00:00 AM EDT Former Smoker completed Former Smoker eCW1 ([facility]) Smoking 08/27/2020 12:00:00 AM EDT Former Smoker completed Former Smoker eCW1 ([facility]) Smoking 08/27/2020 12:00:00 AM EDT Former Smoker completed Former Smoker eCW1 ([facility]) Smoking 08/27/2020 12:00:00 AM EDT Former Smoker completed Former Smoker eCW1 ([facility]) Smoking 08/27/2020 12:00:00 AM EDT Former Smoker completed Former Smoker eCW1 ([facility]) Smoking 08/27/2020 12:00:00 AM EDT Former Smoker completed Former Smoker eCW1 ([facility]) Smoking 08/27/2020 12:00:00 AM EDT Former Smoker completed Former Smoker eCW1 ([facility]) Smoking 08/27/2020 12:00:00 AM EDT Former Smoker completed Former Smoker eCW1 ([facility]) Smoking 08/27/2020 12:00:00 AM EDT Former Smoker completed Former Smoker eCW1 ([facility]) Smoking 08/27/2020 12:00:00 AM EDT Former Smoker completed Former Smoker eCW1 ([facility]) Smoking 08/27/2020 12:00:00 AM EDT Former Smoker completed Former Smoker eCW1 ([facility]) Smoking 08/27/2020 12:00:00 AM EDT Former Smoker completed Former Smoker eCW1 ([facility]) Smoking 08/27/2020 12:00:00 AM EDT Former Smoker completed Former Smoker eCW1 ([facility]) Smoking 08/22/2020 12:00:00 AM EDT Patient is a former smoker completed Patient is a former smoker MEDENT ([facility] Smoking 08/07/2020 12:00:00 AM EDT Former Smoker completed Former Smoker eCW1 ([facility]) Smoking 08/07/2020 12:00:00 AM EDT Former Smoker completed Former Smoker eCW1 ([facility]) Smoking 08/07/2020 12:00:00 AM EDT Former Smoker completed Former Smoker eCW1 ([facility]) Smoking 05/05/2020 12:00:00 AM EDT Former Smoker completed Former Smoker eCW1 ([facility]) Smoking 05/05/2020 12:00:00 AM EDT Former Smoker completed Former Smoker eCW1 ([facility]) Smoking 04/10/2020 12:00:00 AM EDT Former Smoker completed Former Smoker eCW1 ([facility]) Smoking 04/10/2020 12:00:00 AM EDT Former Smoker completed Former Smoker eCW1 ([facility]) Smoking 04/10/2020 12:00:00 AM EDT Former Smoker completed Former Smoker eCW1 ([facility]) Smoking 04/10/2020 12:00:00 AM EDT Former Smoker completed Former Smoker eCW1 ([facility]) Vital Signs ID Date Data Source UNK Name Value Range Interpretation Code Description Data Source(s) Body temperature 96.5 [degF] 96.5 [degF] eCW1 ( [facility]) Respiratory rate 20 /min 20 /min eCW1 ([facility]) Heart rate 87 /min 87 /min eCW1 ([facility]) Body mass index (BMI) [Ratio] 29.81 kg/m2 29.81 kg/m2 eCW1 ([facility]) Body height 62 [in_i] 62 [in_i] eCW1 ([facility]) Body weight 163 [lb_av] 163 [lb_av] eCW1 ([facility]) Diastolic blood pressure 66 mm[Hg] 66 mm[Hg] eCW1 ([facility]) Systolic blood pressure 138 mm[Hg] 138 mm[Hg] e CW1 ([facility]) Body surface area Derived from formula 1.76 m2 1.76 m2 MEDENT ([facility]) Body weight 74.844 kg 74.844 kg [facility] ([facility]) [place] body weight 110 [lb_av] 110 [lb_av] MEDEN T ([facility]) Body mass index (BMI) [Ratio] 30.2 kg/m2 30.2 k g/[facility]2 [facility] Body weight 165.00 [lb_av] 165.00 [lb_av] MEDEN T ([facility]) verbla per the pt Body height 62 [in_i] 62 [in_i] [facility] 5'2" Body temperature 95.9 [degF] 95.9 [degF] [facility] ([facility]) Oxygen saturation in Arterial blood by Pulse oximetry 916 % 916 % [facility] ([facility] Heart rate 83 /min 83 /min [facility] ([facility]) Diastolic blood pressure 70 mm[Hg] 70 mm[Hg] [facility] ([facility]) Systolic blood pressure 122 mm[Hg] 122 mm[Hg] [facility] Body surface area Derived from formula 1.70 m2 1.70 m2 [facility] ([facility]) Body mass index (BMI) [Ratio] 31.5 kg/m2 31.5 k g/m2 MEDENT ([facility]) Body height 60 [in_i] 60 [in_i] MEDENT ([facility]) 5'0" Body weight 73.200 kg 73.200 kg MEDENT ([facility]) Body weight 161.38 [lb_av] 161.38 [lb_av] MEDEN T ([facility]) Oxygen saturation in Arterial blood by Pulse oximetry 98 % 98 % [facility] ([facility]) oxygen set 5L Respiratory rate 16 /min 16 /min [facility] ( [facility]) Body temperature 98.5 [degF] 98.5 [degF] [facility] Heart rate 75 /min 75 /min [facility] ([facility]) Diastolic blood pressure 80 mm[Hg] 80 mm[Hg] [facility] ([facility]) Systolic blood pressure 120 mm[Hg] 120 mm[Hg] [facility] Body surface area Derived from formula 1.70 m2 1.70 m2 [facility]) Body mass index (BMI) [Ratio] 31.5 kg/m2 31.5 k g/m2 [facility] Body height 60 [in_i] 60 [in_i] MEDENT ([facility]) 5'0" Body weight 73.256 kg 73.256 kg MEDENT ([facility]) Body weight 161.50 [lb_av] 161.50 [lb_av] MEDEN T ([facility]) Oxygen saturation in Arterial blood by Pulse oximetry 98 % 98 % [facility] ([facility]) O2 set at 4L Respiratory rate 16 /min 16 /min [facility] ( [facility]) Body temperature 96.0 [degF] 96.0 [degF] [facility] ([facility]) Heart rate 58 /min 58 /min [facility] ([facility]) Diastolic blood pressure 82 mm[Hg] 82 mm[Hg] [facility] ([facility]) Systolic blood pressure 124 mm[Hg] 124 mm[Hg] [facility]) Body surface area Derived from formula 1.75 m2 1.75 m2 [facility], ) Body weight 73.256 kg 73.256 kg [facility] ([facility], ) [place] body weight 110 [lb_av] 110 [lb_av] MEDEN T ([facility], ) Body mass index (BMI) [Ratio] 29.5 kg/m2 29.5 k g/m2 [facility] ([facility], ) Body weight 161.50 [lb_av] 161.50 [lb_av] MEDEN T ([facility], ) Body height 62 [in_i] 62 [in_i] MEDENT ([facility], ) 5'2" Body temperature 97.1 [degF] 97.1 [degF] MEDENT ([facility], ) Oxygen saturation in Arterial blood by Pulse oximetry 974 % 974 % MEDENT ([facility], ) Heart rate 66 /min 66 /min MEDENT ([facility], ) Diastolic blood pressure 70 mm[Hg] 70 mm[Hg] MEDENT ([facility], ) Systolic blood pressure 118 mm[Hg] 118 mm[Hg] M EDENT ([facility], ) Diastolic blood pressure 66 mm[Hg] 66 mm[Hg] eCW1 ([facility]) Systolic blood pressure 138 mm[Hg] 138 mm[Hg] e CW1 ([facility]) Body temperature 96.6 [degF] 96.6 [degF] eCW1 ( [facility]) Respiratory rate 20 /min 20 /min eCW1 ([facility]) Heart rate 87 /min 87 /min eCW1 ([facility]) Body mass index (BMI) [Ratio] 29.88 kg/m2 29.88 kg/m2 eCW1 ([facility]) Body height 62 [in_i] 62 [in_i] eCW1 ([facility]) Body weight 163.4 [lb_av] 163.4 [lb_av] eCW1 ([facility]) Diastolic blood pressure--sitting 40 mm[Hg] 40 mm[Hg] MEDENT ([facility] large cuff, Ra Systolic blood pressure--sitting 82 mm[Hg] 82 mm[Hg] MEDENT ([facility]) large cuff, Ra Heart rate 63 /min 63 /min MEDENT ([facility]) Body mass index (BMI) [Ratio] 29.4 kg/m2 29.4 k g/m2 MEDENT ([facility]) Body height 62 [in_i] 62 [in_i] MEDENT ([facility]) 5'2" Body weight 161.00 [lb_av] 161.00 [lb_av] MEDEN T ([facility]) Diastolic blood pressure--sitting 66 mm[Hg] 66 mm[Hg] MEDENT ([facility]) CBP adult cuff, [place] Systolic blood pressure--sitting 106 mm[Hg] 106 mm[Hg] MEDENT ([facility]) CBP adult cuff, [place] Heart rate 72 /min 72 /min MEDENT ([facility]) Body mass index (BMI) [Ratio] 31.3 kg/m2 31.3 k g/m2 MEDENT ([facility]) Body height 62 [in_i] 62 [in_i] MEDENT ([facility] 5'2" Body weight 171.00 [lb_av] 171.00 [lb_av] MEDEN T ([facility]) Diastolic blood pressure 66 mm[Hg] 66 mm[Hg] eCW1 ([facility]) Systolic blood pressure 110 mm[Hg] 110 mm[Hg] e CW1 ([facility]) Body temperature 98.5 [degF] 98.5 [degF] eCW1 ( [facility]) Respiratory rate 20 /min 20 /min eCW1 ([facility]) Heart rate 69 /min 69 /min eCW1 ([facility]) Body mass index (BMI) [Ratio] 31.60 kg/m2 31.60 kg/m2 eCW1 ([facility]) Body height 62 [in_i] 62 [in_i] eCW1 ([facility]) Body weight 172.8 [lb_av] 172.8 [lb_av] eCW1 ([facility]) Diastolic blood pressure 74 mm[Hg] 74 mm[Hg] eCW1 ([facility]) Systolic blood pressure 113 mm[Hg] 113 mm[Hg] e CW1 ([facility]) Body temperature 98.8 [degF] 98.8 [degF] eCW1 ( [facility]) Respiratory rate 20 /min 20 /min eCW1 ([facility]) Heart rate 79 /min 79 /min eCW1 ([facility]) Body mass index (BMI) [Ratio] 31.97 kg/m2 31.97 kg/m2 eCW1 ([facility]) Body height 62 [in_us] 62 [in_us] eCW1 ([facility]) Body weight Measured 174.8 [lb_av] 174.8 [lb_av ] eCW1 ([facility]) Diastolic blood pressure 62 mm[Hg] 62 mm[Hg] eCW1 ([facility]) Systolic blood pressure 114 mm[Hg] 114 mm[Hg] e CW1 ([facility]) Body temperature 99.2 [degF] 99.2 [degF] eCW1 ( [facility]) Respiratory rate 20 /min 20 /min eCW1 ([facility]) Heart rate 89 /min 89 /min eCW1 ([facility]) Body mass index (BMI) [Ratio] 32.15 kg/m2 32.15 kg/m2 eCW1 ([facility]) Body height 62 [in_i] 62 [in_i] eCW1 ([facility]) Body weight 175.8 [lb_av] 175.8 [lb_av] eCW1 ([facility]) Body weight 79.380 kg 79.380 kg MEDEARNEST ([facility], ) [place] body weight 110 [lb_av] 110 [lb_av] MEDEN T ([facility], ) Body mass index (BMI) [Ratio] 32.0 kg/m2 32.0 k g/m2 MEDENT ([facility], ) Body weight 175.00 [lb_av] 175.00 [lb_av] MEDEN T ([facility], ) Body height 62 [in_i] 62 [in_i] MEDENT ([facility], ) 5'2" Body temperature 98.8 [degF] 98.8 [degF] [facility] ([facility], ) Oxygen saturation in Arterial blood by Pulse oximetry 91 % 91 % [facility], ) o2 sat on 4l Heart rate 73 /min 73 /min [facility] ([facility], ) Diastolic blood pressure 68 mm[Hg] 68 mm[Hg] [facility], ) Systolic blood pressure 102 mm[Hg] 102 mm[Hg] [facility], ) Diastolic blood pressure 56 mm[Hg] 56 mm[Hg] eCW1 ([facility]) Systolic blood pressure 114 mm[Hg] 114 mm[Hg] e CW1 ([facility]) Body temperature 97.2 [degF] 97.2 [degF] eCW1 ( [facility]) Respiratory rate 20 /min 20 /min eCW1 ([facility]) Heart rate 96 /min 96 /min eCW1 ([facility]) Body mass index (BMI) [Ratio] 32.15 kg/m2 32.15 kg/m2 W1 ([facility]) Body height 62 [in_us] 62 [in_us] eCW1 ([facility]) Body weight Measured 175.8 [lb_av] 175.8 [lb_av ] W1 ([facility]) Body weight 80.968 kg 80.968 kg [facility] ([facility], ) Body mass index (BMI) [Ratio] 32.6 kg/m2 32.6 k g/m2 [facility] ([facility], ) Body weight 178.50 [lb_av] 178.50 [lb_av] [facility], [facility] Body height 62 [in_i] 62 [in_i] [facility] ([facility], ) 5'2" Oxygen saturation in Arterial blood by Pulse oximetry 86 % 86 % [facility] ([facility], ) o2 sat on 3L pulsed, 96% 02 sat on 4L co ntinuous Heart rate 69 /min 69 /min [facility] ([facility], ) Diastolic blood pressure 63 mm[Hg] 63 mm[Hg] [facility] ([facility], ) Systolic blood pressure 124 mm[Hg] 124 mm[Hg] [facility], ) Diastolic blood pressure 62 mm[Hg] 62 mm[Hg] W1 ([facility]) Systolic blood pressure 110 mm[Hg] 110 mm[Hg] e CW1 ([facility]) Body temperature 98.4 [degF] 98.4 [degF] eCW1 ( [facility]) Respiratory rate 20 /min 20 /min eCW1 ([facility]) Heart rate 81 /min 81 /min eCW1 ([facility]) Body mass index (BMI) [Ratio] 32.81 kg/m2 32.81 kg/m2 eCW1 ([facility]) Body height 62 [in_us] 62 [in_us] eCW1 ([facility]) Body weight Measured 179.4 [lb_av] 179.4 [lb_av ] eCW1 ([facility]) Body temperature 97.4 [degF] 97.4 [degF] eCW1 ( [facility]) Respiratory rate 18 /min 18 /min eCW1 ([facility]) Heart rate 74 /min 74 /min eCW1 ([facility]) Body mass index (BMI) [Ratio] 32.88 kg/m2 32.88 kg/m2 eCW1 ([facility]) Body height 62 [in_us] 62 [in_us] eCW1 ([facility]) Body weight Measured 179.8 [lb_av] 179.8 [lb_av ] eCW1 ([facility]) Diastolic blood pressure 78 mm[Hg] 78 mm[Hg] eCW1 ([facility]) Systolic blood pressure 118 mm[Hg] 118 mm[Hg] e CW1 ([facility]) Body temperature 98.0 [degF] 98.0 [degF] eCW1 ( [facility]) Respiratory rate 18 /min 18 /min eCW1 ([facility]) Heart rate 86 /min 86 /min eCW1 ([facility]) Body mass index (BMI) [Ratio] 33.10 kg/m2 33.10 kg/m2 eCW1 ([facility]) Body height 62 [in_us] 62 [in_us] eCW1 ([facility]) Body weight Measured 181.0 [lb_av] 181.0 [lb_av ] eCW1 ([facility]) Body weight 83.916 kg 83.916 kg [facility] ([facility]) Body mass index (BMI) [Ratio] 33.8 kg/m2 33.8 k g/m2 [facility] ([facility]) Body weight 185.00 [lb_av] 185.00 [lb_av] MEDEN T ([facility]) Body height 62 [in_i] 62 [in_i] [facility] ([facility]) 5'2" Oxygen saturation in Arterial blood by Pulse oximetry 91 % 91 % [facility] ([facility]) o2 sat on 3l Heart rate 79 /min 79 /min [facility] ([facility]) Diastolic blood pressure 78 mm[Hg] 78 mm[Hg] [facility] Systolic blood pressure 122 mm[Hg] 122 mm[Hg] M EDENT ([facility]) Diastolic blood pressure 59 mm[Hg] 59 mm[Hg] eCW1 ([facility]) Systolic blood pressure 124 mm[Hg] 124 mm[Hg] e CW1 ([facility]) Body temperature 98.1 [degF] 98.1 [degF] W1 ( [facility]) Respiratory rate 20 /min 20 /min eCW1 ([facility]) Heart rate 84 /min 84 /min eCW1 ([facility]) Body mass index (BMI) [Ratio] 33.43 kg/m2 33.43 kg/m2 W1 ([facility]) Body height 62 [in_us] 62 [in_us] eCW1 ([facility]) Body weight Measured 182.8 [lb_av] 182.8 [lb_av ] W1 ([facility]) Body weight 83.916 kg 83.916 kg [facility] Body mass index (BMI) [Ratio] 33.8 kg/m2 33.8 k g/m2 [facility] ([facility]) Body weight 185.00 [lb_av] 185.00 [lb_av] MEDEN T ([facility]) Body height 62 [in_i] 62 [in_i] MEDEARNEST ([facility], ) 5'2" Oxygen saturation in Arterial blood by Pulse oximetry 91 % 91 % [facility] ([facility]) o2 sat on 3l pulsed Heart rate 67 /min 67 /min [facility] ([facility]) Diastolic blood pressure 74 mm[Hg] 74 mm[Hg] [facility] ([facility]) Systolic blood pressure 122 mm[Hg] 122 mm[Hg] [facility] ID Date Data Source [id number] 11/24/2020 01:24:31 PM [facility] Name Value Range Interpretation Code Description Data Source(s) WEIGHT RECORDED 161.00 pounds 161.00 pounds [facility] Height 60 Inches 060 Inches [facility] Patient Treatment Plan of Care Planned Activity Planned Date Details Description Data Source (s) Bisoprolol Fumarate 5 MG 12/16/2020 12:00:00 AM EST [facility] ([facility]) Spironolactone 25 MG 12/16/2020 12:00:00 AM [facility] Atorvastatin Calcium 40 MG 12/16/2020 12:00:00 AM EST [facility] BuPROPion HCl 75 MG 12/16/2020 12:00:00 AM EST [facility] Torsemide 20 MG 12/16/2020 12:00[facility]00 [facility] Omeprazole 20 MG 12/16/2020 12:00:00 AM EST [facility] ([facility]) MetFORMIN HCl 500 MG 12/16/2020 12:00:00 [facility] Pregabalin 75 MG 12/16/2020 12:00:00 AM EST [facility]) Azithromycin 250 MG 12/16/2020 12:00:00 AM EST [facility] Levothyroxine Sodium 50 MCG 12/16/2020 12:00:00 AM EST [facility] ([facility]) Vitamin B-12 2500 MCG 12/16/2020 12:00:00 AM EST [facility] ([facility]) Aspirin Adult Low Dose 81 MG 12/16/2020 12:00:00 AM EST [facility] ([facility]) Oxygen 12/16/2020 12:00:00 AM EST N [facility] ([facility]) Albuterol Sulfate (2.5 MG/3ML) 0.083% 12/16/2020 12:00:00 AM EST [facility] ([facility]) Acetaminophen 325 MG / Hydrocodone Bitartrate 5 MG Ora l Tablet 11/10/2020 12:00:00 AM EST eCW1 ([facility]) Acetaminophen 325 MG / Hydrocodone Bitartrate 5 MG Ora l Tablet 11/10/2020 12:00:00 AM EST eCW1 ([facility]) Acetaminophen 325 MG / Hydrocodone Bitartrate 5 MG Ora l Tablet 11/10/2020 12:00:00 AM EST eCW1 ([facility]) Acetaminophen 325 MG / Hydrocodone Bitartrate 5 MG Ora l Tablet 11/10/2020 12:00:00 AM EST eCW1 ([facility]) Acetaminophen 325 MG / Hydrocodone Bitartrate 5 MG Ora l Tablet 10/08/2020 12:00:00 AM EST eCW1 ([facility]) Acetaminophen 325 MG / Hydrocodone Bitartrate 5 MG Ora l Tablet 10/08/2020 12:00:00 AM EST eCW1 ([facility]) [place] 150 MCG 09/01/2020 12:00:00 AM EST eCW1 ([facility]) [place] 150 MCG 09/01/2020 12:00:00 AM EST eCW1 ([facility]) [place] 150 MCG 09/01/2020 12:00:00 AM EST eCW1 ([facility]) [place] 150 MCG 09/01/2020 12:00:00 AM EST eCW1 ([facility]) [place] 150 MCG 09/01/2020 12:00:00 AM EST eCW1 ([facility]) [place] 150 MCG 09/01/2020 12:00:00 AM EST eCW1 ([facility]) [place] 150 MCG 09/01/2020 12:00:00 AM EST eCW1 ([facility]) [place] 150 MCG 09/01/2020 12:00:00 AM EST eCW1 ([facility]) [place] 150 MCG 09/01/2020 12:00:00 AM EST eCW1 ([facility]) [place] 150 MCG 09/01/2020 12:00:00 AM EST eCW1 ([facility]) 168 HR Buprenorphine 0.01 MG/HR Transdermal Patch [BuT rans] 08/27/2020 12:00:00 AM EDT eCW1 ([facility]) 168 HR Buprenorphine 0.01 MG/HR Transdermal Patch [BuT rans] 08/27/2020 12:00:00 AM EDT eCW1 ([facility]) 168 HR Buprenorphine 0.01 MG/HR Transdermal Patch [BuT rans] 08/27/2020 12:00:00 AM EDT eCW1 ([facility]) 168 HR Buprenorphine 0.01 MG/HR Transdermal Patch [BuT rans] 08/27/2020 12:00:00 AM EDT eCW1 ([facility]) 168 HR Buprenorphine 0.01 MG/HR Transdermal Patch [BuT rans] 08/27/2020 12:00:00 AM EDT eCW1 ([facility]) Acetaminophen 325 MG / Hydrocodone Bitartrate 5 MG Ora l Tablet 08/27/2020 12:00:00 AM EDT eCW1 ([facility]) 168 HR Buprenorphine 0.01 MG/HR Transdermal Patch [BuT rans] 08/27/2020 12:00:00 AM EDT eCW1 ([facility]) Acetaminophen 325 MG / Hydrocodone Bitartrate 5 MG Ora l Tablet 08/27/2020 12:00:00 AM EDT eCW1 ([facility]) Acetaminophen 325 MG / Hydrocodone Bitartrate 5 MG Ora l Tablet 08/27/2020 12:00:00 AM EDT eCW1 ([facility]) 168 HR Buprenorphine 0.01 MG/HR Transdermal Patch [BuT rans] 08/27/2020 12:00:00 AM EDT eCW1 ([facility]) Acetaminophen 325 MG / Hydrocodone Bitartrate 5 MG Ora l Tablet 08/27/2020 12:00:00 AM EDT eCW1 ([facility]) 168 HR Buprenorphine 0.01 MG/HR Transdermal Patch [BuT rans] 08/27/2020 12:00:00 AM EDT eCW1 ([facility]) 168 HR Buprenorphine 0.01 MG/HR Transdermal Patch [BuT rans] 08/27/2020 12:00:00 AM EDT eCW1 ([facility]) Acetaminophen 325 MG / Hydrocodone Bitartrate 5 MG Ora l Tablet 08/27/2020 12:00:00 AM EDT eCW1 ([facility]) 168 HR Buprenorphine 0.01 MG/HR Transdermal Patch [BuT rans] 08/27/2020 12:00:00 AM EDT eCW1 ([facility]) Acetaminophen 325 MG / Hydrocodone Bitartrate 5 MG Ora l Tablet 08/27/2020 12:00:00 AM EDT eCW1 ([facility]) 168 HR Buprenorphine 0.01 MG/HR Transdermal Patch [BuT rans] 08/27/2020 12:00:00 AM EDT eCW1 ([facility]) 168 HR Buprenorphine 0.01 MG/HR Transdermal Patch [BuT rans] 08/27/2020 12:00:00 AM EDT eCW1 ([facility]) 168 HR Buprenorphine 0.01 MG/HR Transdermal Patch [BuT rans] 08/27/2020 12:00:00 AM EDT eCW1 ([facility]) Acetaminophen 325 MG / Hydrocodone Bitartrate 5 MG Ora l Tablet 08/27/2020 12:00:00 AM EDT eCW1 ([facility]) 168 HR Buprenorphine 0.01 MG/HR Transdermal Patch [BuT rans] 08/27/2020 12:00:00 AM EDT eCW1 ([facility]) Acetaminophen 325 MG / Hydrocodone Bitartrate 5 MG Ora l Tablet 08/27/2020 12:00:00 AM EDT eCW1 ([facility]) 168 HR Buprenorphine 0.01 MG/HR Transdermal Patch [BuT rans] 08/27/2020 12:00:00 AM EDT eCW1 ([facility]) Acetaminophen 325 MG / Hydrocodone Bitartrate 5 MG Ora l Tablet 08/27/2020 12:00:00 AM EDT eCW1 ([facility]) [place] 1 08/14/2020 12:00:00 AM EDT eCW1 ([facility]) [place] 1 08/14/2020 12:00:00 AM EDT eCW1 ([facility]) [place] 1 08/14/2020 12:00:00 AM EDT eCW1 ([facility]) [place] 1 08/14/2020 12:00:00 AM EDT eCW1 ([facility]) [place] 1 08/14/2020 12:00:00 AM EDT eCW1 ([facility]) Rolling [place] 1 08/14/2020 12:00:00 AM EDT eCW1 ([facility]) Rolling Walker 1 08/14/2020 12:00:00 AM EDT eCW1 ([facility]) Rolling [place] 1 08/14/2020 12:00:00 AM EDT eCW1 ([facility]) Rolling Walker 1 08/14/2020 12:00:00 AM EDT eCW1 ([facility]) Rolling [place] 1 08/14/2020 12:00:00 AM EDT eCW1 ([facility]) Rolling [place] 1 08/14/2020 12:00:00 AM EDT eCW1 ([facility]) Rolling Walker 1 08/14/2020 12:00:00 AM EDT eCW1 ([facility]) Rolling Walker 1 08/14/2020 12:00:00 AM EDT eCW1 ([facility]) Rolling Walker 1 08/14/2020 12:00:00 AM EDT eCW1 ([facility]) Rolling [place] 1 08/14/2020 12:00:00 AM EDT eCW1 ([facility]) [place] 1 08/14/2020 12:00:00 AM EDT eCW1 ([facility]) Sulfamethoxazole 400 MG / Trimethoprim 80 MG Oral Tabl et 05/05/2020 12:00:00 AM EDT eCW1 ([facility]) Sulfamethoxazole 400 MG / Trimethoprim 80 MG Oral Tabl et 05/05/2020 12:00:00 AM EDT eCW1 ([facility]) tizanidine 4 MG Oral Tablet 04/23/2020 12:00:00 AM EDT eCW1 ([facility]) Lisinopril 2.5 MG Oral Tablet 04/16/2020 12:00:00 AM EDT eCW1 ([facility]) Lisinopril 2.5 MG Oral Tablet 04/16/2020 12:00:00 AM EDT eCW1 ([facility]) Acetaminophen 325 MG / Hydrocodone Bitartrate 5 MG Ora l Tablet 02/26/2020 12:00:00 AM EDT eCW1 ([facility]) Acetaminophen 325 MG / Hydrocodone Bitartrate 5 MG Ora l Tablet 01/24/2020 12:00:00 AM EDT eCW1 ([facility]) cetirizine hydrochloride 10 MG Oral Tablet 01/07/2020 12:00:00 AM E DT eCW1 ([facility]) Nystatin 100 UNT/MG Topical Powder 01/03/2020 12:00:00 AM EST eCW1 ([facility]) Acetaminophen 325 MG / Hydrocodone Bitartrate 5 MG Ora l Tablet 12/03/2019 12:00:00 AM EST eCW1 ([facility])
--- NOTE | 2020-12-22 17:27 | REP ---
INDICATION: SOB. COMPARISON: Portable chest today, CT angio 08/24/2020, CT chest without [id number] TECHNIQUE: CT angiogram chest performed following the intravenous administration of 75 cc of Isovue 370. Sagittal and coronal reconstruction images are performed. FINDINGS: Lungs: There are diffuse interstitial changes seen throughout the lung [place]. Some ground-glass opacities, engorged vessels, cardiomegaly but no evidence of air bronchograms or pleural effusion. Consolidative atelectatic changes in the deep sulcus both lower lung zones are noted. Mediastinum: There again noted to be bilateral hilar and mediastinal lymph nodes in a similar pattern to the previous 2 CTs and of uncertain etiology. 12 mm prevascular space a and AP window nodes hilar nodes up to 10 mm on the left and right, right paratracheal 1 cm nodes and subcarinal nodes all stable. Pulmonary arteries: Prominent central pulmonary arteries at taper rapidly. The main, right, left, lobar, segmental and subsegmental arteries visible on this study show no vessel cut off or filling defect to suggest pulmonary emboli. Nelsy: Adenopathy as described above in conjunction with mediastinal adenopathy Axilla: No adenopathy. Pleura: No effusion or pleural based mass/calcific plaque. Heart: Unchanged no pericardial thickening or effusion. Thoracic aorta: No aneurysm or dissection. Upper abdominal structures: Small hiatal hernia. Upper abdominal organs without acute finding. No adrenal lesion, splenic lesion or mass nor any adrenal nodule. Upper poles of kidneys intact. Atherosclerotic calcifications aorta unremarkable pancreas and visualized portions gallbladder intact. Trace of ascites adjacent to the right lobe of liver inferiorly. Visualized osseous structures: Degenerative changes throughout the spine. Sternum, manubrium, medial clavicles, scapulae, humeral heads and ribs without gross fracture. IMPRESSION: No CT evidence of pulmonary embolism. Chronic interstitial changes with superimposed vascular congestion and ground-glass opacities that may reflect some pulmonary edema or chronic interstitial lung disease. Pulmonary vasculature is prominent. Pulmonary artery hypertension is also noted. No parenchymal mass or pleural effusion. No dense consolidation with air bronchograms seen. Some dependent atelectatic changes in the posterior lower lung zone deep sulci.. <Electronically signed by Brady Khan > 12/22/20 [id number]
--- NOTE | 2020-12-22 19:03 | HPEPDOC ---
[facility] Medical History & Physical Date of Admission Dec 22, 2020 Date of Service: Dec 22, 2020 History and Physical CHIEF COMPLAINT: shortness of breath HISTORY OF PRESENT ILLNESS: 70-year-old female with history of cor pulmonale, severe tricuspid regurgitation. Severe pulmonary hypertension Interstitial lung disease, chronic hypoxic respiratory failure and 6 L home oxygen at rest and 10 L with ambulation at baseline,congestive heart failure, diastolic dysfunction, CAD, hypertension, diabetes, dyslipidemia, reflux, secondary osteoporosis. Syncopal episode. Obstructive sleep apnea on chronic CPAP, presents to emergency room today with complaints of worsening shortness of breath, cough productive of white sputum. Patient was in her usual state of health until last night when she had trouble sleeping she got up this morning that washed up and then had some toast and was sitting in the living room coughed up white sputum. She then went to the bathroom to wash up again and change her shirt when she got back to the living room. She was very short of breath. Her home care nurse took her pulse oximetry and she was found to be 73% on 6 L oxygen nasal cannula. Patient usually uses 6 L when she is resting on 10 L when she is ambulating. She said she usually sleeps on a recliner has not noticed any worsening lower extremity edema and keeps away 1.8 L fluid restriction and home-cooked foods. Patient denies going to restaurants or eating take-out food. She denies eating processed foods frozen or can patient says that she has not had any weight gain, but has not been keeping an eye on that. In the ER she was found to be fluid overloaded with pulmonary edema, elevated BNP. Hospitalist was asked to admit her for congestive heart failure, diastolic dysfunction, acute on chronic exacerbation. . Troponin was negative. EKG shows sinus rhythm without any acute ischemic changes. Patient otherwise denies any fever, chills, nausea, vomiting, abdominal pain, constipation, dysuria, urgency, frequency, polyuria, polyphagia , sore throat, bilateral upper and lower extremity weakness, paresthesias, vertigo, ear d ischarge, tinnitus, chest pain, pressure, tightness, lightheadedness or dizziness. PAST MEDICAL HISTORY: cor pulmonale, severe tricuspid regurgitation. Interstitial lung disease, congestive heart failure, diastolic dysfunction, CAD, hypertension, diabetes, dyslipidemia, reflux, secondary osteoporosis. Syncopal episode. Obstructive sleep apnea on chronic CPAP, spinal stenosis lumbar spine with neurogenic claudication, severe tricuspid regurgitation, congestive heart failure, diastolic dysfunction with preserved ejection fraction, severe pulmonary hypertension,chronic hypoxic respiratory failure and 6 L home oxygen at rest and 10 L with ambulation at baseline PAST SURGICAL HISTORY: Lung biopsy 2017 2018, appendectomy, 1979 1985. Bilateral foot surgery 1987. Colonoscopy with diverticulosis but no polyps. 2017. Lasix surgery bilaterally 2016. Coronary artery stenting, right rotator cuff tear repair, colonoscopy with polypectomy 2011, partial hysterectomy, bilateral foot surgery 1987 SOCIAL HISTORY: Former smoker. No alcohol use. No recreational drug use. Retired, lives at home FAMILY HISTORY: . Father congestive heart failure. Mother of Alzheimer's. Brother of C AD, [place] ALLERGIES: Please see below. REVIEW OF SYSTEMS:. 12point ROS negative aside from +findings on HPI HOME MEDICATIONS: Please see below. PHYSICAL EXAMINATION: VITAL SIGNS: see below GEN: Mild distress, conversational dyspnea. No pallor, icterus, cyanosis. No nasal flaring HEENT: Positive JVD, no thyromegaly, no cervical lymphadenopathy. Dry mucous membranes CARDIOVASCULAR: RRR S1S2 +S3 3/6 NAREN LLSB right ventricular heave . Lungs: Diminished bilateral crackles ABDOMEN: Positive bowel sounds, soft, nontender, nondistended. No hepatosplenomegaly EXTREMITIES: 2+ pitting edema bilaterally. Chronic venous stasis changes LABORATORY DATA: See below. IMAGING: INDICATION: SOB. COMPARISON: Portable chest today, CT angio 08/24/2020, CT chest without [id number] TECHNIQUE: CT angiogram chest performed following the intravenous administration of 75 cc of Isovue 370. Sagittal and coronal reconstruction images are performed. FINDINGS: Lungs: There are diffuse interstitial changes seen throughout the lung hidalgo. Some ground-glass opacities, engorged vessels, cardiomegaly but no evidence of air bronchograms or pleural effusion. Consolidative atelectatic changes in the deep sulcus both lower lung zones are noted. Mediastinum: There again noted to be bilateral hilar and mediastinal lymph nodes in a similar pattern to the previous 2 CTs and of uncertain etiology. 12 mm prevascular space a and AP window nodes hilar nodes up to 10 mm on the left and right, right paratracheal 1 cm nodes and subcarinal nodes all stable. Pulmonary arteries: Prominent central pulmonary arteries at taper rapidly. The main, right, left, lobar, segmental and subsegmental arteries visible on this study show no vessel cut off or filling defect to suggest pulmonary emboli. Nelsy: Adenopathy as described above in conjunction with mediastinal adenopathy Axilla: No adenopathy. Pleura: No effusion or pleural based mass/calcific plaque. Heart: Unchanged no pericardial thickening or effusion. Thoracic aorta: No aneurysm or dissection. Upper abdominal structures: Small hiatal hernia. Upper abdominal organs without acute finding. No adrenal lesion, splenic lesion or mass nor any adrenal nodule. Upper poles of kidneys intact. Atherosclerotic calcifications aorta unremarkable pancreas and visualized portions gallbladder intact. Trace of ascites adjacent to the right lobe of liver inferiorly. Visualized osseous structures: Degenerative changes throughout the spine. Sternum, manubrium, medial clavicles, scapulae, humeral heads and ribs without gross fracture. IMPRESSION: No CT evidence of pulmonary embolism. Chronic interstitial changes with superimposed vascular congestion and ground-glass opacities that may reflect some pulmonary edema or chronic interstitial lung disease. Pulmonary vasculature is prominent. Pulmonary artery hypertension is also noted. No parenchymal mass or pleural effusion. No dense consolidation with air bronchograms seen. Some dependent atelectatic changes in the posterior lower lung zone deep sulci.. MICROBIOLOGY: Please see below. ECHOCARDIOGRAM DATE OF PROCEDURE: 06/09/2020 Age: 70 Gender: Female Height: 60 inches Weight: 164 pounds Body Surface Area 1.7 m2. LOCATION: Inpatient PCU Room 3229 REFERRING PHYSICIAN: Dr. Limon INDICATION: Pulmonary edema. MEASUREMENTS: 2D Measurements: RV 3.9 cm LV 3.8 cm Septum 1.2 cm Posterior wall 1.2 cm LA 4.0 cm LVEF 65% Doppler Measurements: AV 1.92 m/sec LVOT 1.08 m/sec MV-E 91, A 133, EA ratio 0.7 Early mitral deceleration time 282 msec E prime medial 4.7, A prime medial 6.8, E prime lateral 8 Average E-E prime ratio 19 PV 0.8 msec Pulmonary artery deceleration time 81 msec RVSP 68 mmHg IVC 2.4 cm COMMENTS: Normal sinus rhythm with intermittent intraventricular conduction disturbance. M-mode and two-dimensional echocardiography was performed with pulse, continuouswave, color flow, and tissue Doppler studies. Borderline concentric left ventricular hypertrophy with septal wall motion abnormality suspected to be due to right ventricular pressure overload. Retainedglobal left ventricular systolic function. Borderline left atrial enlargement with grade 1 LV diastolic dysfunction and elevated estimated mean left atrial pressure. Normal right ventricular size, but at least mildly dilated pulmonary trunk. Normal right ventricular free wall motion, and Doppler evidence of severe pulmonary hypertension. Mildly dilated right atrium and inferior vena cava with adequate respiratory collapse consistent with a central venous pressure at least upper limits of normal. Normal aortic dimensions. Asymmetrical aortic valvular sclerosis without stenosis and only very mild insufficiency. Moderate mitral annular calcification with fairly normal appearing leaflet thickness and excursion with no posterior systolic buckling and only mild mitralinsufficiency. Normal appearing tricuspid valve with moderately severe to severe tricuspid insufficiency. No apparent intracardiac mass or pericardial effusion. ASSESSMENT/PLAN: 70-year-old female with history of cor pulmonale, severe tricuspid regurgitation. Interstitial lung disease, congestive heart failure, diastolic d ysfunction, CAD, hypertension, diabetes, dyslipidemia, reflux, secondary osteoporosis. Syncopal episode. Obstructive sleep apnea on chronic CPAP,chronic hypoxic respiratory failure and 6 L home oxygen at rest and 10 L with ambulation at baseline presents to emergency room today with complaints of worsening shortness of breath, cough productive of white sputum. Patient was in her usual state of health until last night when she had trouble sleeping she got up this morning that washed up and then had some toast and was sitting in the living room coughed up white sputum. She then went to the bathroom to wash up again and change her shirt when she got back to the living room. She was very short of breath. Her home care nurse took her pulse oximetry and she was found to be 73% on 6 L oxygen nasal cannula. Patient usually uses 6 L when she is resting on 10 L when she is ambulating. She said she usually sleeps on a recliner has not noticed any worsening lower extremity edema and keeps away 1.8 L fluid restriction and home-cooked foods. Patient denies going to restaurants or eating take-out food. She denies eating processed foods frozen or can patient says that she has not had any weight gain, but has not been keeping an eye on that. In the ER she was found to be fluid overloaded with pulmonary edema, elevated BNP. Hospitalist was asked to admit her for congestive heart failure, diastolic dysfunction, acute on chronic exacerbation. . Troponin was negative. EKG shows sinus rhythm without any acute ischemic changes. . Acute on chronic diastolic congestive heart failure with preserved systolic function/cor pulmonale -Patient has a known history of severe pulmonary hypertension secondary to interstitial lung disease with severe tricuspid regurgitation, but despite compliance with fluid restriction and salt restriction. She now presents with acute exacerbation. Patient will be Done. A 2 L fluid restriction, strict I's and O's, daily weights, 2 g sodium diet. Diuresis with Lasix 40 mg IV every 6 hourly for net negative balance daily of 1 L at least. We will monitor patient's metabolic panel and optimize her potassium and magnesium to prevent arrhythmias. She will be On telemetry and cycle cardiac markers to rule out acute ischemia as cause for patient's decompensated heart failure. Recent echo was in 2019. It is unlikely that she has had significant changes. Therefore, we will not repeat another echocardiogram Chronic hypoxic respiratory failure. 6 L home oxygen secondary to interstitial lung disease -Keep saturations above 90%. Continue with supportive care with diuresis until patient is back to baseline Interstitial lung disease -Follows with Dr. Dickens teacher of the deaf/hard of hearing. Resume all home inhalers. Severe tricuspid regurgitation -Due to end-stage lung disease. Patient would not be a candidate for any valve replacement. Medical management and optimize fluid balance to keep euvolemic CAD, EKG has no acute ischemic changes. Resume all home medications hypertension, Resumed on all home medications diabetes, Consistent carbohydrate diet 2 g sodium, insulin sliding scale with coverage dyslipidemia, , Chronic reflux, Resume home meds secondary osteoporosis. At risk for falls, resumed home meds . Obstructive sleep apnea on chronic CPAP, Vital Signs Vital Signs Date Time Temp Pulse Resp B/P (MAP) Pulse Ox O2 Delivery O2 Flow Rate FiO2 12/22/20 15:16 50 12/22/20 13:00 97.7 98 22 138/80 81 Nasal Cannula 6.0 Laboratory Data Labs 24H Laboratory Tests 2 12/22/20 13:17: Immature Granulocyte % (Auto) 0.6, Neutrophils (%) (Auto) 76.7H, Lymphocytes (%) (Auto) 14.6L, Monocytes (%) (Auto) 6.4, Eosinophils (%) (Auto) 0.7, Basophils (%) (Auto) 1.0, Neutrophils # (Auto) 8.2, Lymphocytes # (Auto) 1.6, Monocytes # (Auto) 0.7, Eosinophils # (Auto) 0.1, Basophils # (Auto) 0.1, Nucleated Red Blood Cells % (auto) 0.0, Anion Gap 12, Glomerular Filtration Rate 51.2, Calcium Level 9.6, Total Bilirubin 1.3H, Direct Bilirubin 0.6H, Aspartate Amino Transf (AST/SGOT) 22, Alanine Aminotransferase (ALT/SGPT) 21, Alkaline Phosphatase 135H, Total Creatine Kinase 102, Creatine Kinase MB 2.7, Creatine Kinase MB Relative Index 2.65, Troponin I 0.06, HR-Qxa-I-Type Natriuretic Peptide 3364H, Total Protein 7.4, Albumin 3.7, Albumin/Globulin Ratio 1.0L, Thyroid Stimulating Hormone (TSH) 1.150, Thyroxine (T4) 11.6 12/22/20 13:50: Blood Gas Bicarbonate Standard 25.1, Arterial Blood pH 7.522H, Arterial Blood Partial Pressure CO2 28.1L, Arterial Blood Partial Pressure O2 55.7L, Arterial Blood Total CO2 23.4, Arterial Blood HCO3 22.5, Arterial Blood Base Excess 0.9, Arterial Blood Oxygen Saturation 90.0L 12/22/20 14:06: Lactic Acid Level 3.7*H CBC/BMP Laboratory Tests 12/22/20 13:17 Microbiology Microbiology 12/22/20 Blood Culture, Received Pending 12/22/20 Blood Culture, Received Pending 12/22/20 Respiratory Virus Panel (PCR) ([facility]) - Final, Complete Home Medications Scheduled Albuterol Sulfate (Albuterol Sulfate) 2.5 Mg/0.5 Ml Vial.neb, 1 VIAL NEB Q4H for shortness of breath Aspirin (Ecotrin) 81 Mg Tablet.dr, 81 MG PO QHS Atorvastatin Calcium (Atorvastatin Calcium) 40 Mg Tablet, 40 MG PO DAILY Azithromycin (Azithromycin) 250 Mg Tablet, 250 MG PO DAILY Bisoprolol Fumarate (Bisoprolol Fumarate) 5 Mg Tablet, 2.5 MG PO DAILY Bupropion HCl (Bupropion HCl) 75 Mg Tablet, 75 MG PO BID Cetirizine HCl (Cetirizine HCl) 10 Mg Tablet, 10 MG PO DAILY Cyanocobalamin (Vitamin B-12) (Vitamin B-12) 2,500 Mcg Tab.subl, 2,500 MCG PO DAILY Ergocalciferol (Vitamin D2) (Vitamin D2) 50,000 Units Cap, 50,000 UNITS PO 1XWK FRIDAYS, HAS RUN OUT OF MEDICATION Glucosamine/D3/Boswellia Mame (Osteo Bi-Flex Tablet) 1 Each Tablet, 1 EACH PO QHS Levothyroxine Sodium (Synthroid) 50 Mcg Tablet, 50 MCG PO DAILY Metformin HCl (Metformin HCl) 500 Mg Tablet, 500 MG PO BID Omeprazole (Omeprazole) 20 Mg Capsule.dr, 20 MG PO QHS Pregabalin (Pregabalin) 75 Mg Capsule, 75 MG PO TID Torsemide (Torsemide) 20 Mg Tablet, 20 MG PO BID Vit A/Vit C/Vit E/Zinc/Copper (Preservision Areds Softgel) 1 Each Capsule, 1 CAP PO DAILY Scheduled PRN Albuterol Sulfate (Proair Hfa) 8.5 Gm Hfa.aer.ad, 2 PUFFS INH QID PRN for SOB/WHEEZING Epinephrine (Epipen 2-Hank) 0.3 Mg/0.3 Ml Auto.injct, 0.3 MG IM ONCE PRN for ANAPHYLAXIS Tizanidine HCl (Tizanidine HCl) 4 Mg Tablet, 4 MG PO QHS PRN for MUSCLE SPASMS Allergies Coded Allergies: bee venom protein (honey bee) (Verified Allergy, Severe, ANAPHYLAXIS, 04/17/20) meloxicam (Verified Allergy, Severe, SOB, 04/17/20) A-FIB/CHADSVASC A-FIB History Current/History of A-Fib/PAF?: No Current PO Anticoag Therapy: No Age/Risk Factor Scoring CHADSVASC: CHADSVASC Response (Comments) Value Age Risk Factor Age >/= 75 years old 2 Gender Risk Factor Female 1 Hx of CHF Yes 1 Hx of HTN Yes 1 Hx of Stroke/TIA/or VTE No 0 Hx of Diabetes Yes 1 Hx of Vascular Disease No 0 Total 6 Treatment Treatment ordered: NONE KELTON BALTAZAR MD Dec 22, 2020 15:57
[2020-12-22] MEDS ORDERED: ENOXAPARIN 40MG/0.4ML SYRINGE (J1650 PER 10MG) SC ONE (19:15)
[2020-12-22] MEDS ORDERED: LEVALBUTEROL 1.25 MG/0.5 ML CONCENTRATE NEB INH PRN (19:30)
[2020-12-22] MEDS ORDERED: ALBUTEROL 90 MCG/ACT 8GM HFA INHALER INH PRN (19:30)
[2020-12-22 20:00] VITALS: BP 134/90
[2020-12-22] MEDS: LEVALBUTEROL 1.25 MG/0.5 ML CONCENTRATE NEB INH SCH (20:07)
[2020-12-22] MEDS: ASPIRIN 81 MG ENTERIC TAB PO SCH (20:44)
[2020-12-22] MEDS: buPROPion 75 MG TAB PO SCH (20:44)
[2020-12-22] MEDS: OMEPRAZOLE 20 MG CAP PO SCH (20:44)
[2020-12-22] MEDS: PREGABALIN 75 MG CAP(LYRICA) PO SCH (20:44)
[2020-12-23] VITALS: BP 137/87
[2020-12-23 00:49] LABS: CK-MB VALUE MASS 2.6 NG/ML (<3.6); MB/CK RELATIVE INDEX 1.65 (< OR =4); TROPONIN I 0.06 NG/ML (< 0.10)
[2020-12-23] MEDS: EXCEDRIN MIGRAINE TABLET PO PRN (02:28)
[2020-12-23 04:00] VITALS: BP 122/68
[2020-12-23] MEDS: LEVOTHYROXINE 50MCG TABLET (0.05MG) PO SCH (05:16)
[2020-12-23 05:24] LABS: HEMOGLOBIN 12.9 g/dl (12.0-15.5); MEAN CORPUSCULAR HEMOGLOBIN 24.4 pg (27.0-33.0); MEAN CORPUSCULAR VOLUME 81.3 fl (80.0-96.0); PLATELET COUNT, AUTOMATED 312 10^3/uL (150-450); RED BLOOD COUNT 5.29 10^6/uL (4.00-5.40); WHITE BLOOD COUNT 12.4 10^3/uL (4.0-10.0)
[2020-12-23 05:55] LABS: CALCIUM LEVEL 9.1 MG/DL (8.8-10.2); CHOLESTEROL RISK RATIO 3.222 (<5); CK-MB VALUE MASS 2.3 NG/ML (<3.6); CREATININE FOR GFR 1.09 MG/DL (0.55-1.30); GLOMERULAR FILTRATION RATE 52.8 (>39); MAGNESIUM LEVEL 1.7 MG/DL (1.8-2.4); MB/CK RELATIVE INDEX 1.43 (< OR =4); POTASSIUM SERUM 3.5 MEQ/L (3.5-5.1); TROPONIN I 0.07 NG/ML (< 0.10)
[2020-12-23] MEDS: LEVALBUTEROL 1.25 MG/0.5 ML CONCENTRATE NEB INH SCH ×4 (07:21→20:03)
[2020-12-23 08:00] VITALS: BP 135/72
[2020-12-23] MEDS ORDERED: PREVNAR 13 VACCINE SYRINGE IM ONE (09:00)
[2020-12-23] MEDS: BISOPROLOL FUM 2.5 MG PER 1/2TAB PO SCH (09:06)
[2020-12-23] MEDS: AZITHROMYCIN 250MG TABLET PO SCH (09:06)
[2020-12-23] MEDS: ENOXAPARIN 40MG/0.4ML SYRINGE (J1650 PER 10MG) SC SCH (09:06)
[2020-12-23] MEDS: ATORVASTATIN 20 MG TAB PO SCH (09:06)
[2020-12-23] MEDS: CETIRIZINE (ZyrTEC) 10 MG TAB PO SCH (09:06)
[2020-12-23] MEDS: PREGABALIN 75 MG CAP(LYRICA) PO SCH ×3 (09:07→20:50)
[2020-12-23] MEDS: OCUVITE 1 TAB PO SCH (09:07)
[2020-12-23] MEDS: buPROPion 75 MG TAB PO SCH ×2 (09:07→20:50)
[2020-12-23 10:48] LABS: HEMOGLOBIN A1c 6.6 %
[2020-12-23 12:00] VITALS: BP 125/68; O2SAT 88
[2020-12-23] MEDS: FUROSEMIDE 40MG/4ML VIAL (J1940) IV SCH ×2 (12:02→18:02)
[2020-12-23 16:00] VITALS: BP 120/68
--- NOTE | 2020-12-23 17:32 | IPNPDOC ---
Text Note Date of Service The patient was seen on 12/23/20. NOTE Subjective: Patient was seen and examined this morning at bedside. Patient tells me she's feeling overall well today she feels less short of breath than yesterday and feels her lower extremity swelling has improved as well. She still reports that she is short of breath but only on exertion now. There is no acute overnight events reported to me. She denies any chest pain. Objective: Constitutional: Awake and alert, in no apparent distress, no conversational dyspnea. No nasal flaring. ENT: Sclera are clear. Mucosa is moist. Respiratory: Lungs diminished breath sounds bilaterally with mild crackles around the bases. No use of accessory muscles. On 15 L by nonrebreather Cardiovascular: RRR S1 and S2 are normal, no murmur Gastrointestinal: Abdomen is soft, non distended, non tender, BS present. Musculoskeletal: 2+ lower extremity edema bilaterally up to the midshin and 1+ up to the knees Neurologic: No focal neurological deficit. Mental Status: A&O x3, normal affect Skin: Chronic venous stasis changes on the lower extremities Assessment/plan: 70-year-old female with history of cor pulmonale, severe tricuspid regurgitation. Interstitial lung disease, congestive heart failure, diastolic dysfunction, CAD, hypertension, diabetes, dyslipidemia, reflux, secondary osteoporosis. Syncopal episode. Obstructive sleep apnea on chronic CPAP,chronic hypoxic respiratory failure and 6 L home oxygen at rest and 10 L with ambulation at baseline presents to emergency room today with complaints of worsening shortness of breath, cough productive of white sputum. Patient was in her usual state of health until last night when she had trouble sleeping she got up this m orning that washed up and then had some toast and was sitting in the living room coughed up white sputum. She then went to the bathroom to wash up again and change her shirt when she got back to the living room. She was very short of breath. Her home care nurse took her pulse oximetry and she was found to be 73% on 6 L oxygen nasal cannula. Patient usually uses 6 L when she is resting on 10 L when she is ambulating. She said she usually sleeps on a recliner has not noticed any worsening lower extremity edema and keeps away 1.8 L fluid restriction and home-cooked foods. Patient denies going to restaurants or eating take-out food. She denies eating processed foods frozen or can patient says that she has not had any weight gain, but has not been keeping an eye on that. In the ER she was found to be fluid overloaded with pulmonary edema, elevated BNP. Hospitalist was asked to admit her for congestive heart failure, diastolic dysfunction, acute on chronic exacerbation. . Troponin was negative. EKG shows sinus rhythm without any acute ischemic changes. # Acute on chronic CHFpEF/cor pulmonale: Improving. 2 L fluid restriction, strict I's and O's, daily weights, 2 g sodium diet. Diuresis with Lasix 40 mg IV every 6 hourly for net negative balance daily of 1 L at least. Recent echo was in 2019. It is unlikely to be significant changes. Therefore, will not repeat another. # Acute on chronic hypoxic respiratory failure. 6 L home oxygen secondary to interstitial lung disease: Likely secondary to fluid overload. Keep saturations above 90%. Continue with supportive care with diuresis until patient is back to baseline # Interstitial lung disease: Follows with Dr. 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 Resume all home inhalers. # Severe tricuspid regurgitation: Due to end-stage lung disease. Medical management and optimize fluid balance to keep euvolemic. Follow-up with PCP. # Hypothyroidism: resume Synthroid. # CAD: On aspirin and statin. # Hypertension: Continue home meds. Monitor and titrate # DM: ISS. Frequent Accu-Cheks. Hypoglycemic precautions. #ABRAHAM: May use home CPAP machine # DVT prophylaxis: Lovenox A Adalgisa Hospitalist VS,Tierra, I+O VS, Aishae, I+O Laboratory Tests 12/23/20 04:49 Vital Signs Date Time Temp Pulse Resp B/P (MAP) Pulse Ox O2 Delivery O2 Flow Rate FiO2 12/23/20 16:00 97.4 88 19 120/68 (85) 88 Non-Rebreather 15.0 12/22/20 15:16 50 I&O- Last 24 Hours up to 6 AM 12/23/20 06:00 Intake Total 340 ml Output Total 1500 ml Balance -1160 ml RACHEL REYES MD Dec 23, 2020 17:32
[2020-12-23 20:00] VITALS: BP 119/58
[2020-12-23] MEDS: ASPIRIN 81 MG ENTERIC TAB PO SCH (20:49)
[2020-12-23] MEDS: tiZANidine 4 MG TAB PO PRN (20:50)
[2020-12-23] MEDS: OMEPRAZOLE 20 MG CAP PO SCH (20:50)
[2020-12-24] VITALS: BP 92/48
[2020-12-24 04:00] VITALS: BP 90/50
[2020-12-24] MEDS: LEVOTHYROXINE 50MCG TABLET (0.05MG) PO SCH (05:21)
[2020-12-24] MEDS: FUROSEMIDE 40MG/4ML VIAL (J1940) IV SCH ×3 (05:21→12:56)
[2020-12-24 06:05] LABS: HEMATOCRIT 37.5 % (36.0-47.0); HEMOGLOBIN 11.3 g/dl (12.0-15.5); MEAN CORPUSCULAR HEMOGLOBIN 24.5 pg (27.0-33.0); MEAN CORPUSCULAR HGB CONC 30.1 g/dl (32.0-36.5); MEAN CORPUSCULAR VOLUME 81.2 fl (80.0-96.0); PLATELET COUNT, AUTOMATED 219 10^3/uL (150-450); RED BLOOD COUNT 4.62 10^6/uL (4.00-5.40); WHITE BLOOD COUNT 11.3 10^3/uL (4.0-10.0)
[2020-12-24 06:38] LABS: CALCIUM LEVEL 8.6 MG/DL (8.8-10.2); CREATININE FOR GFR 1.11 MG/DL (0.55-1.30); GLOMERULAR FILTRATION RATE 51.7 (>39); MAGNESIUM LEVEL 1.5 MG/DL (1.8-2.4); POTASSIUM SERUM 2.8 MEQ/L (3.5-5.1)
[2020-12-24] MEDS ORDERED: POTASSIUM CHLORIDE 10 MEQ SR TABLET PO ONE ×2 (06:45→07:45)
[2020-12-24 07:22] VITALS: BP 105/66
[2020-12-24] MEDS: LEVALBUTEROL 1.25 MG/0.5 ML CONCENTRATE NEB INH SCH ×4 (07:40→20:26)
--- NOTE | 2020-12-24 07:45 | IPNPDOC ---
Text Note Date of Service The patient was seen on 12/24/20. NOTE Subjective: Patient was seen and examined this morning at bedside. She's feeling better today feels her shortness of breath continues to slowly improve. She was transitioned from nonrebreather to nasal cannula when I saw her but this doesn't seem to be reflected in the medical record. Perhaps she transiently was trialed on oxygen by nasal cannula but was moved back to nonrebreather. She tells me she has a good appetite and her lower extremity swelling continues to improve. There is no acute overnight events reported to me Objective: Constitutional: Awake and alert, in no apparent distress, no conversational dyspnea. No nasal flaring. ENT: Sclera are clear. Mucosa is moist. Respiratory: Lungs diminished breath sounds bilaterally can't appreciate crackles today. No use of accessory muscles. Cardiovascular: RRR S1 and S2 are normal, no murmur Gastrointestinal: Abdomen is soft, non distended, non tender, BS present. Musculoskeletal: 1+ lower extremity edema bilaterally up to the midshin improved from prior Neurologic: No focal neurological deficit. Mental Status: A&O x3, normal affect Skin: Chronic venous stasis changes on the lower extremities Assessment/plan: 70-year-old female with history of cor pulmonale, severe tricuspid regurgitation. Interstitial lung disease, congestive heart failure, diastolic dysfunction, CAD, hypertension, diabetes, dyslipidemia, reflux, secondary osteoporosis. Obstructive sleep apnea on chronic CPAP,chronic hypoxic r espiratory failure and 6 L home oxygen at rest and 10 L with ambulation at baseline presents with complaints of worsening shortness of breath, cough productive of white sputum. Admitted her for congestive heart failure, diastolic dysfunction, acute on chronic exacerbation. Troponin was negative. EKG shows sinus rhythm without any acute ischemic changes. # Acute on chronic CHFpEF/cor pulmonale: Improving. 2 L fluid restriction, strict I's and O's, daily weights, 2 g sodium diet. Diuresis with Lasix 40 mg IV every 12 hours for net negative balance daily of 1 L at least. Recent echo was in 2019. It is unlikely to be significant changes. Therefore, will not repeat another. # Acute on chronic hypoxic respiratory failure. 6 L home oxygen secondary to interstitial lung disease: Likely secondary to fluid overload. Keep saturations above 90%. Continue with supportive care with diuresis until patient is back to baseline # Interstitial lung disease: Follows with Dr. Dickens radio repairer domestic. Resume all home inhalers. # Severe tricuspid regurgitation: Due to end-stage lung disease. Medical managem ent and optimize fluid balance to keep euvolemic. Follow-up with PCP. # Hypothyroidism: resume Synthroid. # CAD: On aspirin and statin. # Hypertension: Continue home meds. Monitor and titrate # DM: ISS. Frequent Accu-Cheks. Hypoglycemic precautions. #ABRAHAM: May use home CPAP machine # DVT prophylaxis: Hayley Reyes Hospitalist VS,Tierra, I+O VS, Ajbone, I+O Laboratory Tests 12/24/20 05:39 Vital Signs Date Time Temp Pulse Resp B/P (MAP) Pulse Ox O2 Delivery O2 Flow Rate FiO2 12/24/20 07:22 97.0 94 18 105/66 (79) 90 High Flow Cannula 15.0 12/22/20 15:16 50 I&O- Last 24 Hours up to 6 AM 12/24/20 06:00 Intake Total 690 ml Output Total 1850 ml Balance -1160 ml RACHEL REYES MD Dec 24, 2020 07:45
[2020-12-24] MEDS: ATORVASTATIN 20 MG TAB PO SCH (08:22)
[2020-12-24] MEDS: ENOXAPARIN 40MG/0.4ML SYRINGE (J1650 PER 10MG) SC SCH (08:22)
[2020-12-24] MEDS: PREGABALIN 75 MG CAP(LYRICA) PO SCH ×3 (08:22→22:11)
[2020-12-24] MEDS: BISOPROLOL FUM 2.5 MG PER 1/2TAB PO SCH (08:23)
[2020-12-24] MEDS: OCUVITE 1 TAB PO SCH (08:23)
[2020-12-24] MEDS: AZITHROMYCIN 250MG TABLET PO SCH (08:23)
[2020-12-24] MEDS: buPROPion 75 MG TAB PO SCH ×2 (08:23→22:12)
[2020-12-24] MEDS: CETIRIZINE (ZyrTEC) 10 MG TAB PO SCH (08:23)
[2020-12-24] MEDS: MAG SULF 1GM/100ML (MAG RUN) 1 GM in IV 1 EA IV SCH ×2 (08:24→09:29)
[2020-12-24] MEDS ORDERED: POTASSIUM CHLORIDE 10 MEQ SR TABLET PO SCH (09:00)
[2020-12-24 11:12] VITALS: BP 107/56
[2020-12-24 15:42] VITALS: BP 94/54
[2020-12-24 16:02] LABS: CALCIUM LEVEL 8.9 MG/DL (8.8-10.2); CREATININE FOR GFR 1.29 MG/DL (0.55-1.30); GLOMERULAR FILTRATION RATE 43.5 (>39)
[2020-12-24 20:05] VITALS: BP 103/57
[2020-12-24] MEDS ORDERED: FUROSEMIDE 40MG/4ML VIAL (J1940) IV SCH (21:00)
[2020-12-24] MEDS: OMEPRAZOLE 20 MG CAP PO SCH (22:11)
[2020-12-24] MEDS: ASPIRIN 81 MG ENTERIC TAB PO SCH (22:12)
[2020-12-24] MEDS: tiZANidine 4 MG TAB PO PRN (22:19)
[2020-12-25] VITALS (11 sets, daily range): BP systolic 80–116; BP diastolic 50–80; O2SAT 91
[2020-12-25] MEDS ORDERED: NS 500 ML IV ONE ×3 (00:40→12:20)
[2020-12-25 05:50] LABS: HEMATOCRIT 37.2 % (36.0-47.0); HEMOGLOBIN 11.4 g/dl (12.0-15.5); MEAN CORPUSCULAR HEMOGLOBIN 24.9 pg (27.0-33.0); MEAN CORPUSCULAR HGB CONC 30.6 g/dl (32.0-36.5); MEAN CORPUSCULAR VOLUME 81.2 fl (80.0-96.0); PLATELET COUNT, AUTOMATED 208 10^3/uL (150-450); RED BLOOD COUNT 4.58 10^6/uL (4.00-5.40); WHITE BLOOD COUNT 10.4 10^3/uL (4.0-10.0)
[2020-12-25] MEDS: LEVOTHYROXINE 50MCG TABLET (0.05MG) PO SCH (06:02)
[2020-12-25 06:10] LABS: CALCIUM LEVEL 8.2 MG/DL (8.8-10.2); CREATININE FOR GFR 1.13 MG/DL (0.55-1.30); GLOMERULAR FILTRATION RATE 50.7 (>39); MAGNESIUM LEVEL 2.1 MG/DL (1.8-2.4); POTASSIUM SERUM 4.1 MEQ/L (3.5-5.1)
[2020-12-25 06:45] LABS: CK-MB VALUE MASS 1.7 NG/ML (<3.6); MB/CK RELATIVE INDEX 1.25 (< OR =4); TROPONIN I 0.03 NG/ML (< 0.10)
[2020-12-25] MEDS: LEVALBUTEROL 1.25 MG/0.5 ML CONCENTRATE NEB INH SCH ×4 (07:11→19:47)
[2020-12-25] MEDS ORDERED: FUROSEMIDE 40MG/4ML VIAL (J1940) IV SCH (09:00)
[2020-12-25] MEDS: FUROSEMIDE 40 MG TAB PO SCH ×2 (09:00→16:53)
[2020-12-25] MEDS: AZITHROMYCIN 250MG TABLET PO SCH (09:55)
[2020-12-25] MEDS: PREGABALIN 75 MG CAP(LYRICA) PO SCH ×3 (09:55→20:35)
[2020-12-25] MEDS: buPROPion 75 MG TAB PO SCH ×2 (09:55→20:35)
[2020-12-25] MEDS: ATORVASTATIN 20 MG TAB PO SCH (09:55)
[2020-12-25] MEDS: POTASSIUM CHLORIDE 10 MEQ SR TABLET PO SCH (09:55)
[2020-12-25] MEDS: CETIRIZINE (ZyrTEC) 10 MG TAB PO SCH (09:55)
[2020-12-25] MEDS: OCUVITE 1 TAB PO SCH (09:56)
[2020-12-25] MEDS: ENOXAPARIN 40MG/0.4ML SYRINGE (J1650 PER 10MG) SC SCH (09:57)
[2020-12-25] MEDS ORDERED: NS 1,000 ML IV ONE (10:00)
[2020-12-25] MEDS: BISOPROLOL FUM 2.5 MG PER 1/2TAB PO SCH (12:12)
--- NOTE | 2020-12-25 12:15 | IPNPDOC ---
Text Note Date of Service The patient was seen on 12/25/20. NOTE Subjective: Patient was seen and examined this morning at bedside. Overnight some episodes of hypotension. Patient tells me she is feeling little weak/dizzy she has been drinking much just 1 glass of mateus domenic since yesterday. She is likely starting to become dehydrated. She was given a normal saline bolus she felt a little better afterwards. Since her breathing is about the same as yesterday. She is on 12 L high flow. Objective: Constitutional: Awake and alert, in no apparent distress, looks more tired today ENT: Sclera are clear. Mucosa is moist. Respiratory: Lungs diminished breath sounds bilaterally can't appreciate crackles. No use of accessory muscles. High Flow oxygen. Cardiovascular: RRR S1 and S2 are normal, no murmur Gastrointestinal: Abdomen is soft, non distended, non tender, BS present. Musculoskeletal: 1+ lower extremity edema bilaterally up to the midshin improved from prior Neurologic: No focal neurological deficit. Mental Status: A&O x3, normal affect Skin: Chronic venous stasis changes on the lower extremities Assessment/plan: 70-year-old female with history of cor pulmonale, severe tricuspid regurgitation. Interstitial lung disease, congestive heart failure, diastolic dysfunction, CAD, hypertension, diabetes, dyslipidemia, reflux, secondary osteoporosis. Obstructive sleep apnea on chronic CPAP,chronic hypoxic respiratory failure and 6 L home oxygen at rest and 10 L with ambulation at baseline presents with complaints of worsening shortness of breath, cough productive of white sputum. Admitted her for congestive heart failure, diastolic dysfunction, acute on chronic exacerbation. Troponin was negative. EKG shows sinus rhythm without any acute ischemic changes. # Acute on chronic CHFpEF/cor pulmonale: Improving. 2 L fluid restriction, strict I's and O's, daily weights, 2 g sodium diet. Diuresis with Lasix IV switched to PO. Recent echo was in 2019. It is unlikely to be significant changes. Therefore, will not repeat another. Her exacerbation has improved but she is still fairly weak and needs work with physical therapy. # Acute on chronic hypoxic respiratory failure. 6 L home oxygen secondary to interstitial lung disease: Likely secondary to fluid overload. Keep saturations above 90%. Her oxygen requirement has come down but not quite back to baseline yet. # Interstitial lung disease: Follows with Dr. Dickens child development instructor. Resume all home inhalers. # Severe tricuspid regurgitation: Due to end-stage lung disease. Medical management and optimize fluid balance to keep euvolemic. Follow-up with PCP. # Hypothyroidism: resume Synthroid. # CAD: On aspirin and statin. # Hypertension: Continue home meds. Monitor and titrate # DM: ISS. Frequent Accu-Cheks. Hypoglycemic precautions. #ABRAHAM: May use home CPAP machine # DVT prophylaxis: Fanyx A [place] Hospitalist VS,Tierra, I+O VS, Aishae, I+O Laboratory Tests 12/24/20 14:58 12/25/20 05:18 Vital Signs Date Time Temp Pulse Resp B/P (MAP) Pulse Ox O2 Delivery O2 Flow Rate FiO2 12/25/20 11:36 97.6 79 18 90 High Flow Cannula 12.0 12/25/20 11:25 88/ (29) 12/22/20 15:16 50 I&O- Last 24 Hours up to 6 AM 12/25/20 06:00 Intake Total 2060 ml Output Total 700 ml Balance 1360 ml RACHEL REYES MD Dec 25, 2020 12:15
[2020-12-25] MEDS: OMEPRAZOLE 20 MG CAP PO SCH (20:35)
[2020-12-25] MEDS: ASPIRIN 81 MG ENTERIC TAB PO SCH (20:35)
[2020-12-25] MEDS: tiZANidine 4 MG TAB PO PRN (20:39)
[2020-12-26 00:07] VITALS: BP 99/57
[2020-12-26 04:35] VITALS: BP 95/52
[2020-12-26 04:42] LABS: HEMATOCRIT 36.5 % (36.0-47.0); HEMOGLOBIN 11.1 g/dl (12.0-15.5); MEAN CORPUSCULAR HEMOGLOBIN 24.9 pg (27.0-33.0); MEAN CORPUSCULAR HGB CONC 30.4 g/dl (32.0-36.5); MEAN CORPUSCULAR VOLUME 81.8 fl (80.0-96.0); PLATELET COUNT, AUTOMATED 195 10^3/uL (150-450); RED BLOOD COUNT 4.46 10^6/uL (4.00-5.40); WHITE BLOOD COUNT 12.4 10^3/uL (4.0-10.0)
[2020-12-26 04:59] LABS: CALCIUM LEVEL 8.3 MG/DL (8.8-10.2); CREATININE FOR GFR 1.03 MG/DL (0.55-1.30); GLOMERULAR FILTRATION RATE 56.4 (>39); MAGNESIUM LEVEL 1.9 MG/DL (1.8-2.4); POTASSIUM SERUM 3.9 MEQ/L (3.5-5.1)
[2020-12-26] MEDS: LEVOTHYROXINE 50MCG TABLET (0.05MG) PO SCH (05:16)
[2020-12-26] MEDS: LEVALBUTEROL 1.25 MG/0.5 ML CONCENTRATE NEB INH SCH ×4 (07:05→19:52)
[2020-12-26 08:00] VITALS: BP 83/55
[2020-12-26] MEDS: BISOPROLOL FUM 2.5 MG PER 1/2TAB PO SCH (08:53)
[2020-12-26] MEDS: FUROSEMIDE 20 MG TAB PO SCH ×2 (08:53→16:58)
[2020-12-26] MEDS: ENOXAPARIN 40MG/0.4ML SYRINGE (J1650 PER 10MG) SC SCH (08:59)
[2020-12-26] MEDS: PREGABALIN 75 MG CAP(LYRICA) PO SCH ×3 (09:00→22:02)
[2020-12-26] MEDS: POTASSIUM CHLORIDE 10 MEQ SR TABLET PO SCH (09:00)
[2020-12-26] MEDS: buPROPion 75 MG TAB PO SCH ×2 (09:00→22:02)
[2020-12-26] MEDS: AZITHROMYCIN 250MG TABLET PO SCH (09:00)
[2020-12-26] MEDS: OCUVITE 1 TAB PO SCH (09:00)
[2020-12-26] MEDS: ATORVASTATIN 20 MG TAB PO SCH (09:00)
[2020-12-26] MEDS: CETIRIZINE (ZyrTEC) 10 MG TAB PO SCH (09:00)
--- NOTE | 2020-12-26 10:21 | IPNPDOC ---
Text Note Date of Service The patient was seen on 12/26/20. NOTE Subjective: Patient was seen and examined this morning at bedside. The patient has been better. Patient is feeling better than yesterday less dizzy and lightheaded. She was sitting up at her chair this morning. Having breakfast. Feeling little stronger and willing to work with physical therapy today. Still requiring 12 L of high flow oxygen. He was no acute overnight events reported to me. Objective: Constitutional: Awake and alert, in no apparent distress, looks more tired today ENT: Sclera are clear. Mucosa is moist. Respiratory: Lungs diminished breath sounds bilaterally can't appreciate crackles. No use of accessory muscles. High Flow oxygen. Cardiovascular: RRR S1 and S2 are normal, no murmur Gastrointestinal: Abdomen is soft, non distended, non tender, BS present. Musculoskeletal: Her lower extremity edema has almost completely resolved Neurologic: No focal neurological deficit. Mental Status: A&O x3, normal affect Skin: Chronic venous stasis changes on the lower extremities Assessment/plan: 70-year-old female with history of cor pulmonale, severe tricuspid regurgitation. Interstitial lung disease, congestive heart failure, diastolic dysfunction, CAD, hypertension, diabetes, dyslipidemia, reflux, secondary osteoporosis. Obstructive sleep apnea on chronic CPAP,chronic hypoxic respiratory failure and 6 L home oxygen at rest and 10 L with ambulation at baseline presents with complaints of worsening shortness of breath, cough productive of white sputum. Admitted her for congestive heart failure, diastolic dysfunction, acute on chronic exacerbation. Troponin was negative. EKG shows sinus rhythm without any acute ischemic changes. # Acute on chronic CHFpEF/cor pulmonale: Improving. 2 L fluid restriction, strict I's and O's, daily weights, 2 g sodium diet. Diuresis with Lasix IV switched to PO. Recent echo was in 2019. It is unlikely to be significant changes. Therefore, will not repeat another. Her exacerbation has improved but she is still fairly weak and needs work with physical therapy who is recommending rehab, I placed an ARU screen. # Acute on chronic hypoxic respiratory failure. 6 L home oxygen secondary to interstitial lung disease: Likely secondary to fluid overload. Keep saturations above 90%. Her oxygen requirement has come down but not quite back to baseline yet. # Interstitial lung disease: Follows with Dr. Dickens sample tester grinder. Resume all home inhalers. # Severe tricuspid regurgitation: Due to end-stage lung disease. Medical management and optimize fluid balance to keep euvolemic. Follow-up with PCP. # Hypothyroidism: resume Synthroid. # CAD: On aspirin and statin. # Hypertension: Continue home meds. Monitor and titrate # DM: ISS. Frequent Accu-Cheks. Hypoglycemic precautions. #ABRAHAM: May use home CPAP machine # DVT prophylaxis: Fanyx A [place] Hospitalist VS,Tierra, I+O VS, Ajbone, I+O Laboratory Tests 12/26/20 04:18 Vital Signs Date Time Temp Pulse Resp B/P (MAP) Pulse Ox O2 Delivery O2 Flow Rate FiO2 12/26/20 08:53 79 87/51 12/26/20 08:00 12.0 12/26/20 08:00 97.2 26 92 High Flow Cannula 12/22/20 15:16 50 I&O- Last 24 Hours up to 6 AM 12/26/20 06:00 Intake Total 2900 ml Output Total 1050 ml Balance 1850 ml RACHEL REYES MD Dec 26, 2020 10:21
[2020-12-26 12:00] VITALS: BP 136/59
[2020-12-26 16:00] VITALS: BP 100/59
[2020-12-26 20:00] VITALS: BP 122/73
[2020-12-26] MEDS: tiZANidine 4 MG TAB PO PRN (22:02)
[2020-12-26] MEDS: ASPIRIN 81 MG ENTERIC TAB PO SCH (22:02)
[2020-12-26] MEDS: OMEPRAZOLE 20 MG CAP PO SCH (22:02)
[2020-12-27] VITALS (7 sets, daily range): BP systolic 92–135; BP diastolic 50–79
[2020-12-27] MEDS: LEVOTHYROXINE 50MCG TABLET (0.05MG) PO SCH (04:35)
[2020-12-27 04:42] LABS: HEMATOCRIT 37.1 % (36.0-47.0); HEMOGLOBIN 11.1 g/dl (12.0-15.5); MEAN CORPUSCULAR HEMOGLOBIN 24.5 pg (27.0-33.0); MEAN CORPUSCULAR HGB CONC 29.9 g/dl (32.0-36.5); MEAN CORPUSCULAR VOLUME 81.9 fl (80.0-96.0); PLATELET COUNT, AUTOMATED 198 10^3/uL (150-450); RED BLOOD COUNT 4.53 10^6/uL (4.00-5.40)
[2020-12-27 05:02] LABS: BLOOD UREA NITROGEN 17 MG/DL (7-18); CALCIUM LEVEL 8.3 MG/DL (8.8-10.2); CARBON DIOXIDE LEVEL 21 MEQ/L (21-32); CHLORIDE LEVEL 115 MEQ/L (98-107); CREATININE FOR GFR 0.91 MG/DL (0.55-1.30); GLOMERULAR FILTRATION RATE > 60.0 (>39); GLUCOSE, FASTING 122 MG/DL (70-100); MAGNESIUM LEVEL 2.1 MG/DL (1.8-2.4); POTASSIUM SERUM 4.3 MEQ/L (3.5-5.1); SODIUM LEVEL 144 MEQ/L (136-145)
[2020-12-27] MEDS: LEVALBUTEROL 1.25 MG/0.5 ML CONCENTRATE NEB INH SCH ×4 (08:00→19:44)
--- NOTE | 2020-12-27 08:25 | IPNPDOC ---
Text Note Date of Service The patient was seen on 12/27/20. NOTE Subjective: Patient was up and sitting in the chair & eating breakfast when I examined her today. She is still requiring 12L O2 at rest. According to her, she usually is on 6L while at rest at home, and 10L when up and walking around. She continues to work with PT, she looks forward to their visits. Goal will be to at least get her down to 10L consistently prior to d/c as this is what she has available at home. She reports that she has been coughing intermittently, she feels as though there is something to coughed up but cannot get it up, therefore it is technically non-productive. Will put her on Mucinex ER 600mg BID, and she has tessalon perles available PRN as well. Otherwise, she didn't have any overnight events, and has no additional complaints or issues this morning. Objective: Constitutional: Awake and alert, in no apparent distress. ENT: Sclera are clear. Mucosa is moist. Respiratory: Lungs diminished breath sounds bilaterally at the bases can't appreciate crackles. Sounds clear at the bilateral apices. No use of accessory muscles. High Flow oxygen. Cardiovascular: RRR, no murmur, rubs , or gallops. Gastrointestinal: Abdomen is soft, non distended, non tender, BS present. Extremities: minimal/trace LE edema Neurologic: No focal neurological deficit. Mental Status: A&O x3, normal affect Skin: Chronic venous stasis changes on the lower extremities Assessment/plan: 70-year-old female with history of cor pulmonale, severe tricuspid regurgitation. Interstitial lung disease, congestive heart failure, diastolic dysfunction, CAD, hypertension, diabetes, dyslipidemia, reflux, secondary osteoporosis. Obstructive sleep apnea on chronic CPAP,chronic hypoxic respiratory failure and 6 L home oxygen at rest and 10 L with ambulation at [facility] presents with complaints of worsening shortness of breath. Admitted her for congestive heart failure, diastolic dysfunction, acute on chronic exacerbation. Troponin was negative. EKG showed sinus rhythm without any acute ischemic changes. # Acute on chronic CHFpEF/cor pulmonale: Improving. 2 L fluid restriction, strict I's and O's, daily weights, 2 g sodium diet. Diuresis with Lasix IV sw itched to PO. Recent echo was in 2019. It is unlikely to be significant changes. Therefore, will not repeat another. Her exacerbation has improved but she is still fairly weak and needs work with physical therapy. Perhaps will evaluate for ARU admission/rehab when deemed appropriate candidate by PT. # Acute on chronic hypoxic respiratory failure. 6 L home oxygen secondary to interstitial lung disease: Likely secondary to fluid overload. Keep saturations above 90%. Her oxygen requirement has come down but not quite back to baseline yet. # Interstitial lung disease: Follows with Dr. Dickens director of application development. Resume all home inhalers. # Severe tricuspid regurgitation: Due to end-stage lung disease. Medical management and optimize fluid balance to keep euvolemic. Follow-up with PCP. # Hypothyroidism: resume Synthroid. # CAD: On aspirin and statin. # Hypertension: Continue home meds. Monitor and titrate # DM: ISS. Frequent Accu-Cheks. Hypoglycemic precautions. #ABRAHAM: May use home CPAP machine # DVT prophylaxis: Lovenox VS,Fishbone, I+O VS, Fishbone, I+O Laboratory Tests 12/27/20 04:12 Vital Signs Date Time Temp Pulse Resp B/P (MAP) Pulse Ox O2 Delivery O2 Flow Rate FiO2 12/27/20 07:51 97.0 67 24 103/64 (77) 94 High Flow Cannula 12.0 12/22/20 15:16 50 I&O- Last 24 Hours up to 6 AM 12/27/20 06:00 Intake Total 1260 ml Output Total 550 ml Balance 710 ml ELLA VARELA DO Dec 27, 2020 08:25
[2020-12-27] MEDS: BISOPROLOL FUM 2.5 MG PER 1/2TAB PO SCH (09:00)
[2020-12-27] MEDS: ATORVASTATIN 20 MG TAB PO SCH (09:12)
[2020-12-27] MEDS: guaiFENesin ER 600 MG TAB PO SCH ×2 (09:12→20:50)
[2020-12-27] MEDS: ENOXAPARIN 40MG/0.4ML SYRINGE (J1650 PER 10MG) SC SCH (09:12)
[2020-12-27] MEDS: buPROPion 75 MG TAB PO SCH ×2 (09:12→20:49)
[2020-12-27] MEDS: CETIRIZINE (ZyrTEC) 10 MG TAB PO SCH (09:12)
[2020-12-27] MEDS: OCUVITE 1 TAB PO SCH (09:12)
[2020-12-27] MEDS: FUROSEMIDE 20 MG TAB PO SCH ×2 (09:13→17:07)
[2020-12-27] MEDS: PREGABALIN 75 MG CAP(LYRICA) PO SCH ×3 (09:13→20:50)
[2020-12-27] MEDS: POTASSIUM CHLORIDE 10 MEQ SR TABLET PO SCH (09:13)
[2020-12-27] MEDS: ASPIRIN 81 MG ENTERIC TAB PO SCH (20:50)
[2020-12-27] MEDS: tiZANidine 4 MG TAB PO PRN (20:50)
[2020-12-27] MEDS: OMEPRAZOLE 20 MG CAP PO SCH (20:50)
[2020-12-28] VITALS: BP 86/40
[2020-12-28 04:00] VITALS: BP 83/52
[2020-12-28 05:17] LABS: HEMATOCRIT 39.9 % (36.0-47.0); HEMOGLOBIN 11.9 g/dl (12.0-15.5); MEAN CORPUSCULAR HEMOGLOBIN 24.7 pg (27.0-33.0); MEAN CORPUSCULAR HGB CONC 29.8 g/dl (32.0-36.5); MEAN CORPUSCULAR VOLUME 82.8 fl (80.0-96.0); PLATELET COUNT, AUTOMATED 178 10^3/uL (150-450); RED BLOOD COUNT 4.82 10^6/uL (4.00-5.40); WHITE BLOOD COUNT 10.4 10^3/uL (4.0-10.0)
[2020-12-28 05:35] LABS: CALCIUM LEVEL 8.1 MG/DL (8.8-10.2); CREATININE FOR GFR 1.01 MG/DL (0.55-1.30); GLOMERULAR FILTRATION RATE 57.7 (>39); POTASSIUM SERUM 4.2 MEQ/L (3.5-5.1)
[2020-12-28] MEDS: LEVOTHYROXINE 50MCG TABLET (0.05MG) PO SCH (06:30)
[2020-12-28 07:45] VITALS: BP 101/61
[2020-12-28] MEDS: LEVALBUTEROL 1.25 MG/0.5 ML CONCENTRATE NEB INH SCH ×4 (07:59→19:43)
[2020-12-28] MEDS: OCUVITE 1 TAB PO SCH (08:35)
[2020-12-28] MEDS: ATORVASTATIN 20 MG TAB PO SCH (08:35)
[2020-12-28] MEDS: buPROPion 75 MG TAB PO SCH ×2 (08:35→20:50)
[2020-12-28] MEDS: CETIRIZINE (ZyrTEC) 10 MG TAB PO SCH (08:36)
[2020-12-28] MEDS: FUROSEMIDE 20 MG TAB PO SCH ×2 (08:36→16:52)
[2020-12-28] MEDS: PREGABALIN 75 MG CAP(LYRICA) PO SCH ×3 (08:36→20:50)
[2020-12-28] MEDS: POTASSIUM CHLORIDE 10 MEQ SR TABLET PO SCH (08:36)
[2020-12-28] MEDS: guaiFENesin ER 600 MG TAB PO SCH ×2 (08:36→20:50)
[2020-12-28] MEDS: ENOXAPARIN 40MG/0.4ML SYRINGE (J1650 PER 10MG) SC SCH (08:37)
[2020-12-28] MEDS: BISOPROLOL FUM 2.5 MG PER 1/2TAB PO SCH (08:40)
[2020-12-28] MEDS ORDERED: SLF 3 ML SYR IV PRN (09:15)
[2020-12-28 12:00] VITALS: BP 131/64
[2020-12-28] MEDS: BENZONATATE 100 MG CAP PO PRN (12:09)
[2020-12-28] MEDS: SLF 3 ML SYR IV SCH ×2 (14:07→20:52)
--- NOTE | 2020-12-28 15:45 | IPNPDOC ---
Text Note Date of Service The patient was seen on 12/28/20. NOTE Subjective: Patient reports that she is feeling quite well today. She is down to 10 L while at rest, which is an improvement from prior, and she does have the capability of 10 L oxygen with her machine at home. Physical therapy has not yet worked with her today, may not come in until tomorrow. If she is able to maintain saturations on 10 L alone, then she would be safe for discharge at that time. She does not report any significant cough today. Otherwise remainder of her review of systems is negative. Objective: Constitutional: Awake and alert, in no apparent distress. ENT: Sclera are clear. Mucosa is moist. Respiratory: Lungs diminished breath sounds bilaterally at the bases can't appreciate crackles. Sounds clear at the bilateral apices. No use of accessory muscles. High Flow oxygen. Cardiovascular: 3/6 systolic murmur with loud S2 Gastrointestinal: Abdomen is soft, non distended, non tender, BS present. Extremities: minimal/trace LE edema Neurologic: No focal neurological deficit. Mental Status: A&O x3, normal affect Skin: Chronic venous stasis changes on the lower extremities Assessment/plan: 70-year-old female with history of cor pulmonale, severe tricuspid regurgitation. Interstitial lung disease, congestive heart failure, diastolic dysfunction, CAD, hypertension, diabetes, dyslipidemia, reflux, secondary osteoporosis. Obstructive sleep apnea on chronic CPAP,chronic hypoxic respiratory failure and 6 L home oxygen at rest and 10 L with ambulation at baseline presents with complaints of worsening shortness of breath. Admitted her for congestive heart failure, diastolic dysfunction, acute on chronic exacerbation. Troponin was negative. EKG showed sinus rhythm without any acute ischemic changes. # Acute on chronic CHFpEF/cor pulmonale: Improving. 2 L fluid restriction, strict I's and O's, daily weights, 2 g sodium diet. Diuresis with Lasix IV switched to PO. Recent echo was in 2019. It is unlikely to be significant changes. Therefore, will not repeat another. Her exacerbation has improved but she is still fairly weak and needs work with physical therapy. Perhaps will evaluate for ARU admission/rehab vs Home with services based on recommendations from PT. # Acute on chronic hypoxic respiratory failure. 6 L home oxygen secondary to interstitial lung disease: Likely secondary to fluid overload. Keep saturations above 90%. Her oxygen requirement is trending down which is a good sign. # Interstitial lung disease: Follows with Dr. Dickens assistant curator. Resume all home inhalers. # Cough: Continue with the Mucinex and as needed Lorin Cunningham # Severe tricuspid regurgitation: Due to end-stage lung disease. Medical manag ement and optimize fluid balance to keep euvolemic. Follow-up with PCP. # Hypothyroidism: resume Synthroid. # CAD: On aspirin and statin. # Hypertension: Continue home meds. Monitor and titrate # DM: ISS. Frequent Accu-Cheks. Hypoglycemic precautions. #ABRAHAM: May use home CPAP machine # DVT prophylaxis: Lovenox VS,Fishbone, I+O VS, Fishbone, I+O Laboratory Tests 12/28/20 04:56 Vital Signs Date Time Temp Pulse Resp B/P (MAP) Pulse Ox O2 Delivery O2 Flow Rate FiO2 12/28/20 12:00 97.8 81 18 131/64 (86) 89 High Flow Cannula 12/28/20 12:00 10.0 12/22/20 15:16 50 I&O- Last 24 Hours up to 6 AM 12/28/20 05:59 Intake Total 1040 ml Output Total 1175 ml Balance -135 ml ELLA VARELA DO Dec 28, 2020 15:45
[2020-12-28 16:00] VITALS: BP 130/70
[2020-12-28 20:00] VITALS: BP 125/70
[2020-12-28] MEDS: tiZANidine 4 MG TAB PO PRN (20:50)
[2020-12-28] MEDS: OMEPRAZOLE 20 MG CAP PO SCH (20:50)
[2020-12-28] MEDS: ASPIRIN 81 MG ENTERIC TAB PO SCH (20:50)
[2020-12-29] VITALS (18 sets, daily range): BP systolic 96–132; BP diastolic 51–78; O2SAT 79–96
[2020-12-29 04:41] LABS: HEMATOCRIT 35.5 % (36.0-47.0); HEMOGLOBIN 10.6 g/dl (12.0-15.5); MEAN CORPUSCULAR HEMOGLOBIN 24.4 pg (27.0-33.0); MEAN CORPUSCULAR HGB CONC 29.9 g/dl (32.0-36.5); MEAN CORPUSCULAR VOLUME 81.6 fl (80.0-96.0); PLATELET COUNT, AUTOMATED 178 10^3/uL (150-450); RED BLOOD COUNT 4.35 10^6/uL (4.00-5.40)
[2020-12-29 05:01] LABS: BLOOD UREA NITROGEN 15 MG/DL (7-18); CALCIUM LEVEL 8.7 MG/DL (8.8-10.2); CARBON DIOXIDE LEVEL 21 MEQ/L (21-32); CHLORIDE LEVEL 114 MEQ/L (98-107); CREATININE FOR GFR 0.95 MG/DL (0.55-1.30); GLOMERULAR FILTRATION RATE > 60.0 (>39); GLUCOSE, FASTING 121 MG/DL (70-100); MAGNESIUM LEVEL 1.9 MG/DL (1.8-2.4); POTASSIUM SERUM 4.1 MEQ/L (3.5-5.1); SODIUM LEVEL 141 MEQ/L (136-145)
[2020-12-29] MEDS: LEVOTHYROXINE 50MCG TABLET (0.05MG) PO SCH (05:06)
[2020-12-29] MEDS: SLF 3 ML SYR IV SCH ×3 (05:06→20:44)
[2020-12-29] MEDS: LEVALBUTEROL 1.25 MG/0.5 ML CONCENTRATE NEB INH SCH ×4 (07:50→20:32)
[2020-12-29] MEDS: ENOXAPARIN 40MG/0.4ML SYRINGE (J1650 PER 10MG) SC SCH (08:29)
[2020-12-29] MEDS: BISOPROLOL FUM 2.5 MG PER 1/2TAB PO SCH (08:29)
[2020-12-29] MEDS: buPROPion 75 MG TAB PO SCH ×2 (08:29→20:44)
[2020-12-29] MEDS: OCUVITE 1 TAB PO SCH (08:29)
[2020-12-29] MEDS: CETIRIZINE (ZyrTEC) 10 MG TAB PO SCH (08:30)
[2020-12-29] MEDS: ATORVASTATIN 20 MG TAB PO SCH (08:30)
[2020-12-29] MEDS: FUROSEMIDE 20 MG TAB PO SCH ×2 (08:30→16:43)
[2020-12-29] MEDS: PREGABALIN 75 MG CAP(LYRICA) PO SCH ×3 (08:30→20:44)
[2020-12-29] MEDS: guaiFENesin ER 600 MG TAB PO SCH ×2 (08:31→20:44)
[2020-12-29] MEDS: POTASSIUM CHLORIDE 10 MEQ SR TABLET PO SCH (08:31)
[2020-12-29] MEDS: EXCEDRIN MIGRAINE TABLET PO PRN ×2 (09:53→23:30)
--- NOTE | 2020-12-29 19:13 | ECGEPIP ---
[facility] Test Date: 2020-12-25 Pat Name: CASEY KU Department: Room: [place] [address] Gender: Female Saddle Maker: Randa Rose RN : 1950 Requested By: DAO BURRIS Order Number: [id number] Reading MD: Tae Diaz Measurements Intervals [place] Rate: 74 P: 45 CT: 176 QRS: 127 QRSD: 66 T: 31 QT: 436 QTc: 483 Interpretive Statements Normal sinus rhythm POOR R WAVE PROGRESSION SIMILAR TO 12/22/20 Electronically Signed on 12-29-2020 19:14:06 EST by Tae Diaz
--- NOTE | 2020-12-29 19:43 | IPNPDOC ---
Text Note Date of Service The patient was seen on 12/29/20. NOTE Subjective: And continues to require 10 L of oxygen, she was walked with physical therapy today and did desaturate into the 80s. Despite this, she reports feeling significantly better than when she came in, she is hopeful for anticipated discharge tomorrow. We'll see how she does over the next 24 hours. Otherwise, she does not have any complaints at this time and is her usual very pleasant self. Remainder review of systems is negative. Objective: Constitutional: Awake and alert, in no apparent distress. ENT: Sclera are clear. Mucosa is moist. Respiratory: Lung sounds are diminished but I cannot appreciate any wheezes or crackles. High Flow oxygen. Cardiovascular: 3/6 systolic murmur with loud S2 Gastrointestinal: Abdomen is soft, non distended, non tender, BS present. Extremities: minimal/trace LE edema Neurologic: No focal neurological deficit. Mental Status: A&O x3, normal affect Skin: Chronic venous stasis changes on the lower extremities Assessment/plan: 70-year-old female with history of cor pulmonale, severe tricuspid regurgitation. Interstitial lung disease, congestive heart failure, diastolic dysfunction, CAD, hypertension, diabetes, dyslipidemia, reflux, secondary osteoporosis. Obstructive sleep apnea on chronic CPAP,chronic hypoxic respira tory failure and 6 L home oxygen at rest and 10 L with ambulation at baseline presents with complaints of worsening shortness of breath. Admitted her for congestive heart failure, diastolic dysfunction, acute on chronic exacerbation. Troponin was negative. EKG showed sinus rhythm without any acute ischemic changes. # Acute on chronic CHFpEF/cor pulmonale: Improving. 2 L fluid restriction, strict I's and O's, daily weights, 2 g sodium diet. Diuresis with Lasix IV switched to PO. Recent echo was in 2019. It is unlikely to be significant changes. Therefore, will not repeat another. Her exacerbation has improved but she is still fairly weak and needs work with physical therapy. Perhaps Home [facility] when safe. # Acute on chronic hypoxic respiratory failure. 6 L home oxygen secondary to interstitial lung disease: Likely secondary to fluid overload, now resolved. Keep saturations above 90%. # Interstitial lung disease: Follows with Dr. Dicekns chief mechanical engineer. Resume all home inhalers. # Cough: Continue with the Mucinex and as needed Tessalon Perles # Severe tricuspid regurgitation: Due to end-stage lung disease. Medical management and optimize fluid balance to keep euvolemic. Follow-up with PCP. # Hypothyroidism: resume Synthroid. # CAD: On aspirin and statin. # Hypertension: Continue home meds. Monitor and titrate # DM: ISS. Frequent Accu-Cheks. Hypoglycemic precautions. #ABRAHAM: May use home CPAP machine # DVT prophylaxis: Lovenox VS,Fishbone, I+O VS, Fishbone, I+O Laboratory Tests 12/29/20 04:12 Vital Signs Date Time Temp Pulse Resp B/P (MAP) Pulse Ox O2 Delivery O2 Flow Rate FiO2 12/29/20 18:00 92 Nasal Cannula 10.0 12/29/20 16:00 96.2 93 18 121/72 (88) I&O- Last 24 Hours up to 6 AM 12/29/20 06:00 Intake Total 1170 ml Output Total 1375 ml Balance -205 ml ELLA VARELA DO Dec 29, 2020 19:43
[2020-12-29] MEDS: ASPIRIN 81 MG ENTERIC TAB PO SCH (20:44)
[2020-12-29] MEDS: OMEPRAZOLE 20 MG CAP PO SCH (20:44)
[2020-12-29] MEDS: BENZONATATE 100 MG CAP PO PRN (23:30)
[2020-12-30] VITALS (20 sets, daily range): BP systolic 119–144; BP diastolic 62–88; O2SAT 81–96
[2020-12-30] MEDS: LEVOTHYROXINE 50MCG TABLET (0.05MG) PO SCH (05:13)
[2020-12-30] MEDS: SLF 3 ML SYR IV SCH ×3 (05:39→20:43)
[2020-12-30 06:03] LABS: HEMATOCRIT 39.1 % (36.0-47.0); HEMOGLOBIN 11.6 g/dl (12.0-15.5); MEAN CORPUSCULAR HEMOGLOBIN 24.5 pg (27.0-33.0); MEAN CORPUSCULAR HGB CONC 29.7 g/dl (32.0-36.5); MEAN CORPUSCULAR VOLUME 82.5 fl (80.0-96.0); PLATELET COUNT, AUTOMATED 219 10^3/uL (150-450); RED BLOOD COUNT 4.74 10^6/uL (4.00-5.40); WHITE BLOOD COUNT 10.2 10^3/uL (4.0-10.0)
[2020-12-30 06:22] LABS: CALCIUM LEVEL 8.7 MG/DL (8.8-10.2); CREATININE FOR GFR 1.11 MG/DL (0.55-1.30); GLOMERULAR FILTRATION RATE 51.7 (>39); POTASSIUM SERUM 3.9 MEQ/L (3.5-5.1)
[2020-12-30] MEDS: LEVALBUTEROL 1.25 MG/0.5 ML CONCENTRATE NEB INH SCH ×4 (07:27→20:00)
[2020-12-30] MEDS: buPROPion 75 MG TAB PO SCH ×2 (08:46→20:43)
[2020-12-30] MEDS: OCUVITE 1 TAB PO SCH (08:46)
[2020-12-30] MEDS: ENOXAPARIN 40MG/0.4ML SYRINGE (J1650 PER 10MG) SC SCH (08:46)
[2020-12-30] MEDS: CETIRIZINE (ZyrTEC) 10 MG TAB PO SCH (08:47)
[2020-12-30] MEDS: POTASSIUM CHLORIDE 10 MEQ SR TABLET PO SCH (08:47)
[2020-12-30] MEDS: guaiFENesin ER 600 MG TAB PO SCH ×2 (08:47→20:43)
[2020-12-30] MEDS: BISOPROLOL FUM 2.5 MG PER 1/2TAB PO SCH (08:47)
[2020-12-30] MEDS: FUROSEMIDE 20 MG TAB PO SCH (08:47)
[2020-12-30] MEDS: ATORVASTATIN 20 MG TAB PO SCH (08:47)
[2020-12-30] MEDS: PREGABALIN 75 MG CAP(LYRICA) PO SCH ×3 (08:47→20:43)
--- NOTE | 2020-12-30 10:10 | IPN ---
PROGRESS NOTE DATE: 12/30/2020 SUBJECTIVE: Patty is seen in the PCU. She is admitted with congestive heart failure and preserved ejection fraction, cor pulmonale. She has been getting diuresed, has chronic hypoxic respiratory failure, uses oxygen between 6 and 10 liters at home related to intersitial lung disease. She follows with Dr. Dick[facility] for [facility]. Other medical problems include coronary artery disease, hypertension, Type 2 diabetes, ABRAHAM on CPAP and hypothyroidism. She is getting close to discharge. She really has not had much diuresis over the last week, in fact her weight is up and she has had a negative positive fluid balance. Blood pressure has been well-maintained as well. PHYSICAL EXAMINATION: VITAL SIGNS: Blood pressure 138/69, O2 saturation 98% on 10 liters. Pulse is 91. GENERAL APPEARANCE: She is alert, conversant in no distress. HEENT: Unremarkable. NECK: No JVD. LUNGS: Fibrotic rales bilaterally. HEART: Regular rate and rhythm. There is a loud 2/6 holosystolic murmur at the apex. ABDOMEN: Soft, nontender. No masses. 1+ peripheral edema. LABORATORY DATA: White count is 10.2, hemoglobin 11.6, platelets 219,000, sodium 145, potassium 3.9, BUN 17, creatinine is 1.1, glucose is 86. Blood sugars have all been below 200. Blood cultures have been negative. IMPRESSION: 1. Congestive heart failure, preserved ejection fraction. She really has not diuresed over the last several days. Her weight is steadily increasing. I would like to get her discharged tomorrow but we have some catching up to do on her heart failure. Will increase the dose of her furosemide starting today. I understand she has a daughter who is going for surgery later in the week. I expect we will get enough diuresis today that I can discharge her tomorrow. 2. Chronic hypoxic respiratory failure from severe pulmonary intersitial fibrosis. She will probably go home on the same oxygen at 6 to 10 liters which she is currently using. 3. Diabetes, blood sugar is well-controlled on current regimen. 4. Coronary disease, stable. No sign of any active coronary problems.
[2020-12-30] MEDS: BENZONATATE 100 MG CAP PO PRN (16:44)
[2020-12-30] MEDS: FUROSEMIDE 40 MG TAB PO SCH (16:44)
[2020-12-30] MEDS ORDERED: ONDANSETRON 4MG/2ML VIAL IV PRN (17:35)
[2020-12-30] MEDS: ASPIRIN 81 MG ENTERIC TAB PO SCH (20:42)
[2020-12-30] MEDS: EXCEDRIN MIGRAINE TABLET PO PRN (20:42)
[2020-12-30] MEDS: tiZANidine 4 MG TAB PO PRN (20:43)
[2020-12-30] MEDS: OMEPRAZOLE 20 MG CAP PO SCH (20:43)
[2020-12-31] VITALS (9 sets, daily range): BP systolic 108–121; BP diastolic 57–68; O2SAT 87–93
[2020-12-31 04:32] LABS: HEMATOCRIT 38.7 % (36.0-47.0); HEMOGLOBIN 11.3 g/dl (12.0-15.5); MEAN CORPUSCULAR HEMOGLOBIN 24.4 pg (27.0-33.0); MEAN CORPUSCULAR HGB CONC 29.2 g/dl (32.0-36.5); MEAN CORPUSCULAR VOLUME 83.6 fl (80.0-96.0); PLATELET COUNT, AUTOMATED 239 10^3/uL (150-450); RED BLOOD COUNT 4.63 10^6/uL (4.00-5.40); WHITE BLOOD COUNT 8.9 10^3/uL (4.0-10.0)
[2020-12-31 04:55] LABS: CALCIUM LEVEL 8.2 MG/DL (8.8-10.2); CREATININE FOR GFR 1.09 MG/DL (0.55-1.30); GLOMERULAR FILTRATION RATE 52.8 (>39); POTASSIUM SERUM 4.2 MEQ/L (3.5-5.1)
[2020-12-31] MEDS: LEVOTHYROXINE 50MCG TABLET (0.05MG) PO SCH (05:34)
[2020-12-31] MEDS: SLF 3 ML SYR IV SCH (05:35)
[2020-12-31] MEDS: LEVALBUTEROL 1.25 MG/0.5 ML CONCENTRATE NEB INH SCH ×2 (08:00→11:59)
[2020-12-31] MEDS: POTASSIUM CHLORIDE 10 MEQ SR TABLET PO SCH (08:30)
[2020-12-31] MEDS: guaiFENesin ER 600 MG TAB PO SCH (08:30)
[2020-12-31] MEDS: ATORVASTATIN 20 MG TAB PO SCH (08:30)
[2020-12-31] MEDS: PREGABALIN 75 MG CAP(LYRICA) PO SCH (08:30)
[2020-12-31] MEDS: OCUVITE 1 TAB PO SCH (08:31)
[2020-12-31] MEDS: CETIRIZINE (ZyrTEC) 10 MG TAB PO SCH (08:31)
[2020-12-31] MEDS: buPROPion 75 MG TAB PO SCH (08:31)
[2020-12-31] MEDS: FUROSEMIDE 40 MG TAB PO SCH (08:31)
[2020-12-31] MEDS: ENOXAPARIN 40MG/0.4ML SYRINGE (J1650 PER 10MG) SC SCH (08:32)
[2020-12-31] MEDS: BISOPROLOL FUM 2.5 MG PER 1/2TAB PO SCH (08:40)
--- NOTE | 2020-12-31 10:45 | DSES ---
DISCHARGE SUMMARY DATE OF ADMISSION: 12/22/2020 DATE OF DISCHARGE: 12/31/2020 PRINCIPAL DIAGNOSIS: Congestive heart failure with preserved ejection fraction. SECONDARY DIAGNOSES: 1. Chronic hypoxic respiratory failure from severe pulmonary interstitial fibrosis. 2. Diabetes type 2. 3. Coronary artery disease. HISTORY OF PRESENT ILLNESS: Patient admitted with shortness of breath and congestive heart failure. She has severe hypoxic respiratory failure and wears oxygen between 6 to 10 liters chronically at home. She is followed by Dr. Dickens from the [facility]. She was admitted with some congestive heart failure. HOSPITAL COURSE: I assumed her care the day before discharge. She was diuresed for a few days. Diuretics were reduced, but she had increasing edema the day before discharge, so I augmented this yesterday and her edema significantly improved. She feels ready for discharge. DISCHARGE PHYSICAL EXAMINATION: VITAL SIGNS: Blood pressure 108/57, pulse 90, respiratory rate 18, saturation 90%. GENERAL: She is alert, conversant, in no distress. No JVD. LUNGS: Fibrotic rales bilaterally. HEART: Regular rate and rhythm. There is a 1/6 systolic ejection murmur. ABDOMEN: Soft, nontender. No masses. EXTREMITIES: Trace peripheral edema. LABORATORY DATA: White count 8.9, hemoglobin __, platelets 239,000. Sodium 146, potassium 4.2, BUN 18, creatinine 1.0, glucose 88. Hemoglobin A1C 6.6%. Lipid panel normal. TSH normal. IMAGING: Intrathoracic CT of the chest on admission showed chronic interstitial changes with superimposed vascular congestion, some pulmonary edema. No pulmonary embolism. DISPOSITION: She is discharged home in improved and stable condition. She will follow-up with her primary care provider who is in [place] in a week. Activity is as tolerated. 2 gram sodium diet with 1800 cc per day fluid restriction recommended. MEDICATIONS ON DISCHARGE: Will continue to be: 1. Albuterol two puffs q.i.d. p.r.n. or nebulized every 4 hours p.r.n. 2. Aspirin 81 mg daily. 3. Atorvastatin 40 mg daily. 4. Bisoprolol 2.5 mg daily. 5. Wellbutrin 75 mg b.i.d. 6. Cetirizine 10 mg daily. 7. Vitamin B12 2,500 mcg daily. 8. EpiPen as needed. 9. Vitamin D 50,000 units weekly. 10.Osteo Bi-Flex as needed. 11.Levothyroxine 100 mcg daily. 12.Metformin 500 mg b.i.d. 13.Omeprazole 20 mg daily. 14.Lyrica 75 mg b.i.d. 15.Tizanidine 4 mg q.h.s. p.r.n. 16.Torsemide 20 mg b.i.d. 17.PreserVision vitamin. At the time of this dictation, there are no pending labs. MTDD
[2020-12-31 11:31] LABS: RSV AMPLIFICATION NEGATIVE (NEGATIVE)
== END 2020-12-31 14:15 | disposition home health service (06) | DRG 291 ==
LOC: M ED 12:46 → M ED INP 15:47 → M PCU 18:07
PROVIDERS: ADMIT General Practice; ATTEND Family Medicine
DX: I11.0 Hypertensive heart disease with heart failure (principal); J96.21 Acute and chronic respiratory failure with hypoxia; J84.10 Pulmonary fibrosis, unspecified; I27.29 Other secondary pulmonary hypertension; I36.1 Nonrheumatic tricuspid (valve) insufficiency; I25.10 Atherosclerotic heart disease of native coronary artery without angina pectoris; I50.33 Acute on chronic diastolic (congestive) heart failure; E11.9 Type 2 diabetes mellitus without complications; E78.5 Hyperlipidemia, unspecified; K21.9 Gastro-esophageal reflux disease without esophagitis; G47.33 Obstructive sleep apnea (adult) (pediatric); I87.2 Venous insufficiency (chronic) (peripheral); M81.8 Other osteoporosis without current pathological fracture; Z95.5 Presence of coronary angioplasty implant and graft; Z86.010 Personal history of colon polyps; Z90.49 Acquired absence of other specified parts of digestive tract; Z87.891 Personal history of nicotine dependence; Z99.81 Dependence on supplemental oxygen; Z79.82 Long term (current) use of aspirin; Z79.84 Long term (current) use of oral hypoglycemic drugs; Z79.899 Other long term (current) drug therapy; Z88.6 Allergy status to analgesic agent; Z91.030 Bee allergy status

== ENCOUNTER 2021-01-01 10:12 | Emergency (ER) | payer MEDICARE, OTHER ==
[~2021-01-01 10:12] MED LIST changes: +EPINEPHrine 1MG/10ML SYRINGE 1.5IN ONE; +SODIUM BICARBONATE 8.4% INJ 50 ML SYRINGE ONE
[2021-01-01] MEDS ORDERED: EPINEPHrine 1MG/10ML SYRINGE 1.5IN As Ordered ONE (10:22)
[2021-01-01 10:40] VITALS: BP 0/0
== END 2021-01-01 13:10 | disposition expired ==
LOC: M ED 10:12
DX: I46.9 Cardiac arrest, cause unspecified (principal); E11.9 Type 2 diabetes mellitus without complications; I11.0 Hypertensive heart disease with heart failure; Z79.51 Long term (current) use of inhaled steroids; Z79.82 Long term (current) use of aspirin; Z79.899 Other long term (current) drug therapy; Z87.898 Personal history of other specified conditions; Z88.8 Allergy status to other drugs, medicaments and biological substances; Z91.030 Bee allergy status